=== PATIENT | female | born 1980 | race Caucasian/White ===

== ENCOUNTER 2018-01-08 15:56 | Emergency (ER) | payer BC, OTHER ==
[2018-01-08] MEDS ORDERED: ONDANSETRON 4 MG/2 ML VIAL ONE ×2 (16:57→17:45)
[2018-01-08] MEDS ORDERED: NA CHLORIDE 0.9% 1,000 ML ONE (16:57)
[2018-01-08] MEDS ORDERED: FENTANYL CITR 100 MCG/2 ML ONE (16:57)
[2018-01-08 17:15] LABS: Absolute Lymphocytes (CBC) 1.4 K/uL (0.7-4.9); Absolute Monocytes 0.5 K/uL (0.1-1.3); Absolute Neutrophil 10.1 K/uL (1.8-8.0); Basophils % 0.3 % (0-1.3); Eosinophils % 0.7 % (0-4.4); Hematocrit 38.5 % (36.0-45.0); Lymphocytes % 11.6 % (15.3-44.8); MCH 30.8 pg (27.0-35.0); MCV 89.1 fL (80-100); MPV 8.1 fL (7.6-11.3); Monocytes % 4.3 % (3.3-12.3); RBC Red Blood Cell Count 4.32 M/uL (3.86-4.86)
[2018-01-08 17:21] LABS: Urine Bacteria 20-50 /HPF (<20); Urine Culture Reflex Order NOT NEEDED; Urine Mucus 2+ /HPF (NONE SEEN)
[2018-01-08 17:22] LABS: Urine Blood 3+ (NEG); Urine Glucose NEGATIVE (NEG); Urine Protein 2+ (NEG)
[2018-01-08 17:33] LABS: ALT/SGPT 27 U/L (12-78); AST/SGOT 13 U/L (15-37); Alkaline Phosphatase 65 U/L (45-117); BUN Blood Urea Nitrogen 10 mg/dL (7-18); Bicarbonate 23 mmol/L (21-32); Bilirubin Direct 0.1 mg/dL (0-0.2); Bilirubin Total 0.4 mg/dL (0.2-1.0); Glucose Level 108 mg/dL (74-106); Lipase 76 U/L (73-393); Potassium 4.2 mmol/L (3.5-5.1); Sodium Level 139 mmol/L (136-145)
[2018-01-08] MEDS ORDERED: CEFTRIAXONE/SWI 1gm 1 GM/10 ML SYR ONE (17:41)
--- NOTE | 2018-01-08 17:43 | RAD REPORT ---
EXAM DESCRIPTION: CT - Stone Protocol - 01/08/2018 5:29 pm CLINICAL HISTORY: Left-sided abdominal pain and flank pain, left lower quadrant pain with nausea COMPARISON: None. TECHNIQUE: Axial 5 mm thick images were obtained without oral or IV contrast. The [id number] span s the entirety of the system including uppermost abdomen and lung bases. All CT scans are performed using dose optimization technique as appropriate and may include automated exposure control or mA/KV adjustment according to patient size. FINDINGS: No hydronephrosis is present and no obstructing ureteral calculi. No suspicious renal mass es. Isodense masses and pyelonephritis are not excluded on a stone protocol CT scan. Patient has punc palomino nonobstructing pyramid or caliceal calculi present under 3 mm in size. Partially contracted urin belen bladder shows no wall thickening, mass or calculus. Uterine size overall is normal. IUD is in place but appears to be positioned low in the lower uterine segment. CT sensitivity is limited. No ovarian abnormality suspected. No fallopian tube dilatation. Imaged portions of the liver, spleen and pancreas show no suspicious findings on non-contrast imaging . No gallbladder or biliary tree abnormality identified. No significant adrenal finding. No suspicious bowel findings. No hernia, mass or bulky lymphadenopathy noted. No free air, free fluid or inflammatory stranding. No significant bony abnormality. IMPRESSION: No hydronephrosis, obstructing calculus or acute finding. Patient does have punctate bilateral calyx or pyramid calculi. Isodense masses and pyelonephritis are not excluded on stone protocol technique. IUD is in place but appears to be positioned in the lower uterine segment region of the uterus. CT se nsitivity is limited. Follow-up outpatient sonography can be performed as clinical findings warrant.
--- NOTE | 2018-01-08 17:46 | EDPHYS ---
Physician Documentation [facility] Name: Octavia Lo Age: 37 yrs Sex: Female : 1980 Arrival Date: 01/08/2018 Time: 15:59 Bed 19 Private MD: None, None ED Physician Sulaiman Dykes HPI: 01/08 17:20 This 37 yrs old Female presents to ER via Ambulatory with complaints of kb Abdominal Pain, Nausea. 17:20 The patient presents with abdominal pain in the left upper quadrant, in the left lower kb quadrant. Onset: The symptoms/episode began/occurred today. The symptoms do not radiate. Associated signs and symptoms: Pertinent positives: nausea. The symptoms are described as constant. Modifying factors: The symptoms are alleviated by nothing, the symptoms are aggravated by pressure. Severity of pain: At its worst the pain was moderate in the emergency department the pain is unchanged. The patient has not experienced similar symptoms in the past. The patient has not recently seen a physician. 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 - Social history:: Smoking status: Patient/guardian denies using tobacco. - Ebola Screening: : No symptoms or risks identified at this time. ROS: 17:20 Constitutional: Negative for fever, chills, and weight loss, Cardiovascular: Negative kb for chest pain, palpitations, and edema, Respiratory: Negative for shortness of breath, cough, wheezing, and pleuritic chest pain, MS/Extremity: Negative for injury and deformity, Skin: Negative for injury, rash, and discoloration, Neuro: Negative for headache, weakness, numbness, tingling, and seizure. 17:20 Abdomen/GI: Positive for abdominal pain, nausea. 17:20 Back: Positive for flank pain, on the left. Exam: 17:20 Constitutional: This is a well developed, well nourished patient who is awake, alert, kb and in no acute distress. Head/Face: Normocephalic, atraumatic. Chest/axilla: Normal chest wall appearance and motion. Nontender with no deformity. No lesions are appreciated. Cardiovascular: Regular rate and rhythm with a normal S1 and S2. No gallops, murmurs, or rubs. Normal PMI, no JVD. No pulse deficits. Respiratory: Lungs have equal breath sounds bilaterally, clear to auscultation and percussion. No rales, rhonchi or wheezes noted. No increased work of breathing, no retractions or nasal flaring. Skin: Warm, dry with normal turgor. Normal color with no rashes, no lesions, and no evidence of cellulitis. MS/ Extremity: Pulses equal, no cyanosis. Neurovascular intact. Full, normal range of motion. Neuro: Awake and alert, GCS 15, oriented to person, place, time, and situation. Cranial nerves II-XII grossly intact. Motor strength 5/5 in all extremities. Sensory grossly intact. Cerebellar exam normal. Normal gait. 17:20 Abdomen/GI: Inspection: abdomen appears normal, Bowel sounds: normal, in all quadrants, Palpation: soft, in all quadrants, moderate abdominal tenderness, in the left upper quadrant and left lower quadrant. 17:20 Back: CVA tenderness, that is moderate, is noted on the left. Vital Signs: 16:27 BP 158 / 119; Pulse 84; Resp 20 S; Temp 99.1(TE); Pulse Ox 99% on R/A; Weight 90.72 kg aa5 (R); Height 5 ft. 5 in. (165.10 cm) (R); Pain 9/10; 17:24 BP 140 / 76; Pulse 85; Resp 18; Pulse Ox 100% on R/A; hj 18:05 BP 103 / 74; Pulse 80; Resp 18; Pulse Ox 100% on R/A; hj 16:27 Body Mass Index 33.28 (90.72 kg, 165.10 cm) aa5 MDM: 16:40 Patient medically screened. kb 17:23 Data reviewed: vital signs, nurses notes. Data interpreted: Pulse oximetry: on room air kb is 99 %. Interpretation: normal. 17:45 Counseling: I had a detailed discussion with the patient and/or guardian regarding: the kb historical points, exam findings, and any diagnostic results supporting the discharge/admit diagnosis, lab results, radiology results, the need for outpatient follow up, a family practitioner, a urologist, to return to the emergency department if symptoms worsen or persist or if there are any questions or concerns that arise at home. 01/08 16:47 Order name: Hepatic Function; Complete Time: 17:34 kb 01/08 16:47 Order name: Lipase; Complete Time: 17:34 kb 01/08 16:47 Order name: Basic Metabolic Panel; Complete Time: 17:34 kb 01/08 16:47 Order name: CBC with Diff; Complete Time: 17:19 kb 01/08 17:00 Order name: Urine Microscopic Only; Complete Time: 17:23 kb 01/08 17:00 Order name: Urine Culture kb 01/08 16:47 Order name: CT Stone Protocol; Complete Time: 17:44 kb 01/08 17:01 Order name: Urine Dipstick--Ancillary (enter results); Complete Time: 17:23 kb 01/08 17:01 Order name: Urine --Ancillary (enter results); Complete Time: 17:23 kb 01/08 16:47 Order name: IV Saline Lock; Complete Time: 16:49 kb 01/08 16:47 Order name: Labs collected and sent; Complete Time: 16:49 kb 01/08 16:48 Order name: Urine Dipstick-Ancillary (obtain specimen); Complete Time: 17:05 kb Administered Medications: 16:48 Drug: NS 0.9% 1000 ml Route: IV; Rate: 1000 ml; Site: left antecubital; hj 17:05 Follow up: IV Status: Infusion continued hj 16:48 Drug: fentaNYL (PF) 50 mcg Route: IVP; Site: left antecubital; hj 17:05 Follow up: Response: No adverse reaction; Pain is decreased hj 16:50 Not Given (Duplicate Order): Zofran 4 mg PO once kb 16:50 Drug: Zofran 4 mg Route: IVP; Site: left antecubital; hj 17:05 Follow up: Response: No adverse reaction; Nausea is decreased hj 17:37 Drug: Rocephin - (cefTRIAXone) 1 grams Route: IVPB; Infused Over: 30 mins; Site: left hj antecubital; 18:00 Follow up: IV Status: Completed infusion hj 17:43 Drug: Zofran 4 mg Route: IVP; Site: left antecubital; hj 17:43 Follow up: Response: No adverse reaction hj 17:46 Drug: TORadol 30 mg Route: IVP; Site: left antecubital; hj 17:59 Follow up: Response: No adverse reaction Disposition: 01/09 07:57 Co-signature as Attending Physician, Sulaiman Dykes MD I agree with the assessment and kari plan of care. Disposition: 01/08/18 17:46 Discharged to Home. Impression: Calculus of kidney, Urinary tract infection, site not specified. - Condition is Stable. - Discharge Instructions: Kidney Stones, [id number], Urinary Tract Infection, Adult, [id number]. - Prescriptions for Zofran 4 mg Oral Tablet - take 1 tablet by ORAL route every 6 hours As needed; 20 tablet. Macrobid 100 mg Oral Capsule - take 1 capsule by ORAL route every 12 hours for 7 days; 14 capsule. Diclofenac Sodium 75 mg Oral Tablet, Delayed Release (E.C.) - take 1 tablet by ORAL route 2 times per day As needed; 30 tablet. - Medication Reconciliation Form, Thank You Letter, Antibiotic Education, Prescription Opioid Use form. - Follow up: Emergency Department; When: As needed; Reason: Worsening of condition. Follow up: Private Physician; When: 2 - 3 days; Reason: Recheck today's complaints, Continuance of care, Re-evaluation by your physician. Signatures: Dispatcher [employer] EDHI Mable Vegas, GINNING OPERATOR-C VEE-Sulaiman Chacon MD MD cha Calderon, Audri, RN RN aa5 Gilbert Sharp RN RN hj Corrections: (The following items were deleted from the chart) 01/08 18:29 17:46 01/08/2018 17:46 Discharged to Home. Impression: Calculus of kidney; Urinary hj tract infection, site not specified. Condition is Stable. Forms are Medication Reconciliation Form, Thank You Letter, Antibiotic Education, Prescription Opioid Use. Follow up: Emergency Department; When: As needed; Reason: Worsening of condition. Follow up: Private Physician; When: 2 - 3 days; Reason: Recheck today's complaints, Continuance of care, Re-evaluation by your physician. kb
--- NOTE | 2018-01-08 17:46 | ER ---
Nurse's Notes [facility] Name: Octavia Lo Age: 37 yrs Sex: Female : 1980 Arrival Date: 01/08/2018 Time: 15:59 Bed 19 Private MD: None, None Diagnosis: Calculus of kidney;Urinary tract infection, site not specified Presentation: 01/08 16:26 Presenting complaint: Patient states: LLQ pain and left low back pain with nausea that aa5 began today. Denies vomiting. Transition of care: patient was not received from another setting of care. Onset of symptoms was January 08, 2018. Risk Assessment: Do you want to hurt yourself or someone else? Patient reports no desire to harm self or others. Initial Sepsis Screen: Does the patient meet any 2 criteria? No. Patient's initial sepsis screen is negative. Does the patient have a suspected source of infection? No. Patient's initial sepsis screen is negative. Care prior to arrival: None. 16:26 Method Of Arrival: Ambulatory aa5 16:26 Acuity: ONUR 3 aa5 Triage Assessment: 16:32 General: Appears in no apparent distress. Behavior is calm, cooperative, appropriate hj for age. Pain: Complains of pain in abdomen. GI: Reports lower abdominal pain, nausea, vomiting. 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 - Social history:: Smoking status: Patient/guardian denies using tobacco. - Ebola Screening: : No symptoms or risks identified at this time. Screenin:32 Abuse screen: Denies threats or abuse. Denies injuries from another. Nutritional hj screening: No deficits noted. Tuberculosis screening: No symptoms or risk factors identified. Fall Risk None identified. Assessment: 16:33 GI: Bowel sounds present X 4 quads. Abd is soft Abdomen is tender to palpation. hj 16:33 General: Appears in no apparent distress. uncomfortable, Behavior is calm, cooperative, hj appropriate for age. Pain: Complains of pain in abdomen Pain radiates to left lower quadrant and left upper quadrant. Neuro: Level of Consciousness is awake, alert, obeys commands, Oriented to person, place, time, situation, Appropriate for age. Cardiovascular: Capillary refill < 3 seconds Patient's skin is warm and dry. Respiratory: Airway is patent Respiratory effort is even, unlabored, Respiratory pattern is regular, symmetrical. : No signs and/or symptoms were reported regarding the genitourinary system. EENT: No signs and/or symptoms were reported regarding the EENT system. Derm: No signs and/or symptoms reported regarding the dermatologic system. Musculoskeletal: No signs and/or symptoms reported regarding the musculoskeletal system. 17:15 Reassessment: Patient and/or family updated on plan of care and expected duration. Pain hj level reassessed. Patient is alert, oriented x 3, equal unlabored respirations, skin warm/dry/pink. wheeled to CT;. 18:04 Reassessment: Patient and/or family updated on plan of care and expected duration. Pain hj level reassessed. Patient is alert, oriented x 3, equal unlabored respirations, skin warm/dry/pink. to finish 1L NS prior to D/C; 250 ml left;. Vital Signs: 16:27 BP 158 / 119; Pulse 84; Resp 20 S; Temp 99.1(TE); Pulse Ox 99% on R/A; Weight 90.72 kg aa5 (R); Height 5 ft. 5 in. (165.10 cm) (R); Pain 9/10; 17:24 BP 140 / 76; Pulse 85; Resp 18; Pulse Ox 100% on R/A; hj 18:05 BP 103 / 74; Pulse 80; Resp 18; Pulse Ox 100% on R/A; hj 16:27 Body Mass Index 33.28 (90.72 kg, 165.10 cm) aa5 ED Course: 15:59 Patient arrived in ED. mr 15:59 None, None is Private Physician. mr 16:26 Triage completed. aa5 16:26 Arm band placed on. aa5 16:28 Gilbert Sharp, RN is Primary Nurse. hj 16:34 Patient has correct armband on for positive identification. Placed in gown. Bed in low hj position. Call light in reach. Side rails up X 1. Adult w/ patient. 16:39 Mable Vegas FNP-C [facility]. kb 16:39 Sulaiman Dykes MD is Attending Physician. kb 16:42 Initial lab(s) drawn, by me, sent to lab. Inserted saline lock: 22 gauge in right upper hj arm, using aseptic technique. Blood collected. 17:04 Initial lab(s) drawn, by me, sent to lab. Inserted saline lock: 22 gauge in left hj antecubital area, using aseptic technique. Blood collected. 17:30 CT Stone Protocol In Process Unspecified. EDMS 17:58 No provider procedures requiring assistance completed. IV discontinued, intact, hj bleeding controlled, No redness/swelling at site. Pressure dressing applied. Administered Medications: 16:48 Drug: NS 0.9% 1000 ml Route: IV; Rate: 1000 ml; Site: left antecubital; hj 17:05 Follow up: IV Status: Infusion continued hj 16:48 Drug: fentaNYL (PF) 50 mcg Route: IVP; Site: left antecubital; hj 17:05 Follow up: Response: No adverse reaction; Pain is decreased hj 16:50 Not Given (Duplicate Order): Zofran 4 mg PO once kb 16:50 Drug: Zofran 4 mg Route: IVP; Site: left antecubital; hj 17:05 Follow up: Response: No adverse reaction; Nausea is decreased hj 17:37 Drug: Rocephin - (cefTRIAXone) 1 grams Route: IVPB; Infused Over: 30 mins; Site: left hj antecubital; 18:00 Follow up: IV Status: Completed infusion hj 17:43 Drug: Zofran 4 mg Route: IVP; Site: left antecubital; hj 17:43 Follow up: Response: No adverse reaction hj 17:46 Drug: TORadol 30 mg Route: IVP; Site: left antecubital; hj 17:59 Follow up: Response: No adverse reaction hj Outcome: 17:46 Discharge ordered by . kb 17:58 Discharged to home ambulatory, with family. hj 17:58 Condition: stable 17:58 Discharge instructions given to patient, family, Instructed on discharge instructions, follow up and referral plans. medication usage, Demonstrated understanding of instructions, follow-up care, medications, Prescriptions given X 3. 18:29 Patient left the ED. hj Addendum: 01/11/2018 10:22 Addendum: Culture Results: Positive urine culture. No further action required. Bacteria s s sensitive to prescribed antibiotic. Signatures: Dispatcher [employer] EDMS Mable Vegas, DESIREE BAXTER-Glenna Graham mr ZepedaCheyanne, RN RN aa5 Rylie Azul RN RN Gilbert Sharp RN RN hj
[2018-01-08] MEDS ORDERED: predniSONE 20 MG TAB ONE (17:55)
[2018-01-08] MEDS ORDERED: AZITHROMYCIN 250 MG TAB ONE (17:55)
[2018-01-08] MEDS ORDERED: ALBUTEROL 2.5 MG/3 ML NEB SOL ONE (17:55)
[2018-01-08] MEDS ORDERED: KETOROLAC 30 MG/ML INJ ONE (17:56)
== END 2018-01-08 18:29 | disposition home or self-care (01) ==
LOC: ER 15:56
DX: N20.0 Calculus of kidney (principal); N39.0 Urinary tract infection, site not specified; Z88.5 Allergy status to narcotic agent; Z88.8 Allergy status to other drugs, medicaments and biological substances
CPT/HCPCS: 36415; 74176; 76377; 80048; 80076; 81003; 81015; 81025; 83690; 85025; 87077; 87086; 87088; 87186; 96365; 96375; 99284; J0696; J2405; J3010; J7030; J7512

== ENCOUNTER 2018-10-15 22:43 | Emergency (ER) | payer BC ==
--- OUTSIDE RECORDS SUMMARY | 2018-10-15 22:46 | XMS REPORT ---
:1980 [facility] Address [address] [place] [address] Dr. Askew [address] [place] [id number] Care Team Providers Name Role Phone Unavailable Unavailable Unavailable Problems This patient has no known problems. Allergies, Adverse Reactions, Alerts This patient has no known allergies or adverse reactions. Medications This patient has no known medications.
[2018-10-16] MEDS ORDERED: dexAMETHasone 10 MG/ML VIAL ONE
[2018-10-16] MEDS ORDERED: IBUPROFEN 200 MG TAB PO ONE (00:01)
[2018-10-16] MEDS ORDERED: LIDOCAINE 5% PATCH ONE (00:09)
[2018-10-16] MEDS ORDERED: HYDROCODONE/APAP 10/325 TAB ONE (00:42)
--- NOTE | 2018-10-16 01:03 | ER ---
Nurse's Notes [facility] Name: Octavia Lo Age: 38 yrs Sex: Female : 1980 Arrival Date: 10/15/2018 Time: 22:47 Bed 6 Private MD: Diagnosis: Lumbago with sciatica, right side Presentation: 10/15 22:51 Presenting complaint: Patient states: "I am having back pain and i have been having jd3 pain shooting down my right leg and my legs feel weak. I have had issues with my right SI joint before. there is just like a grinding feeling happening when I walk causing pain.". Transition of care: patient was not received from another setting of care. Onset of symptoms was October 15, 2018. Risk Assessment: Do you want to hurt yourself or someone else? Patient reports no desire to harm self or others. Initial Sepsis Screen: Does the patient meet any 2 criteria? No. Patient's initial sepsis screen is negative. Does the patient have a suspected source of infection? No. Patient's initial sepsis screen is negative. Care prior to arrival: None. 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 - Social history:: Smoking status: Patient uses tobacco products, denies chronic smoking, but will smoke occasionally. - Ebola Screening: : Patient negative for fever greater than or equal to 101.5 degrees Fahrenheit, and additional compatible Ebola Virus Disease symptoms. Screenin:10 Abuse screen: Denies threats or abuse. Nutritional screening: No deficits noted. bb Tuberculosis screening: No symptoms or risk factors identified. Fall Risk Secondary diagnosis (15 points) impaired mobility, No IV (0 pts). Ambulatory Aid- None/Bed Rest/Nurse Assist (0 pts). Gait- Weak (10 pts.). Mental Status- Oriented to own ability (0 pts). Total Thomas Fall Scale indicates Low Risk Score (25-44 pts). Fall prevention measures have been instituted. Side Rails Up X 2 As available Patient and Family Educated on Fall Prevention Program and strategies. Assessment: 23:10 General: Appears in no apparent distress. uncomfortable, Behavior is calm, cooperative, bb Reports pain in lower back radiating down leg which is making her feel like her pelvis is unstable and she is having difficulty walking. Pain: Complains of pain in back and right leg Pain currently is 6 out of 10 on a pain scale. Neuro: Level of Consciousness is awake, alert, obeys commands, Oriented to person, place, time, situation. Cardiovascular: Heart tones S1 S2 present Capillary refill < 3 seconds Patient's skin is warm and dry. Pulses are all present. Edema is absent. Respiratory: Respiratory effort is even, unlabored, Respiratory pattern is regular, Breath sounds are clear bilaterally. GI: No deficits noted. No signs and/or symptoms were reported involving the gastrointestinal system. Derm: Skin is pink, warm \\T\\ dry. Musculoskeletal: Circulation, motion, and sensation intact. Reports weakness in right leg and left leg pain in back and right leg. 10/16 01:08 Reassessment: Patient appears in no apparent distress at this time. Patient and/or tl2 family updated on plan of care and expected duration. Pain level reassessed. Patient is alert, oriented x 3, equal unlabored respirations, skin warm/dry/pink. pt verbalized understanding of discharge instructions, need for follow up and prescription usage. Vital Signs: 10/15 22:54 BP 167 / 105; Pulse 87; Resp 17 S; Temp 97.9(O); Pulse Ox 98% on R/A; Weight 90.72 kg jd3 (R); Height 5 ft. 5 in. (165.10 cm) (R); Pain 5/10; 10/16 01:11 BP 160 / 97; Pulse 78; Resp 18; Pulse Ox 98% on R/A; tl2 10/15 22:54 Body Mass Index 33.28 (90.72 kg, 165.10 cm) jd3 ED Course: 10/15 22:47 Patient arrived in ED. es 22:53 Triage completed. jd3 22:55 Arm band placed on. jd3 23:06 Quin Thomason, RN is Primary Nurse. bb 23:10 Patient has correct armband on for positive identification. Bed in low position. Call bb light in reach. 23:13 Galo Shin NP is PHCP. pm1 23:13 Sulaiman Dykes MD is Attending Physician. pm1 10/16 01:08 No provider procedures requiring assistance completed. Patient did not have IV access tl2 during this emergency room visit. Administered Medications: 10/15 23:51 Drug: Decadron 10 mg Route: IM; Site: right ventrogluteal; bb 10/16 01:10 Follow up: Response: No adverse reaction tl2 10/15 23:51 Drug: Ibuprofen 600 mg Route: PO; bb 10/16 01:10 Follow up: Response: No adverse reaction tl2 00:00 Drug: lidocaine 5% patch 1 patches Route: Topical; Site: affected area; bb 00:28 Drug: HYDROcodone-acetaminophen 10 mg-325 mg 1 tabs Route: PO; tl2 01:10 Follow up: Response: No adverse reaction; Medication administered at discharge. tl2 Outcome: 01:02 Discharge ordered by . pm1 01:08 Discharged to home ambulatory, with family. tl2 01:08 Condition: stable 01:08 Discharge instructions given to patient, Instructed on discharge instructions, follow up and referral plans. medication usage, Demonstrated understanding of instructions, follow-up care, medications, Prescriptions given X 3. 01:11 Patient left the ED. tl2 Signatures: Kamini Wing Brenda, DAVI RN Galo Thurman NP WATER PUMP INSTALLER pm1 Phoebe Peoples RN RN tl2 Ankush Arenas RN RN jd3
--- NOTE | 2018-10-16 01:03 | EDPHYS ---
Physician Documentation [facility] Name: Octavia Lo Age: 38 yrs Sex: Female : 1980 Arrival Date: 10/15/2018 Time: 22:47 Bed 6 Private MD: ED Physician Sulaiman Dykes HPI: 10/16 00:00 This 38 yrs old Female presents to ER via Ambulatory with complaints of Low pm1 Back Pain. 00:00 The patient presents with pain that is chronic. The symptoms are located in the right pm1 low back. The pain radiates to the right leg. 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 Onset: The symptoms/episode began/occurred present for many months became worse today. Modifying factors: The patient symptoms are alleviated by rest, the patient symptoms are aggravated by movement, walking. Associated signs and symptoms: Pertinent negatives: dysuria, fever, headache, incontinence, numbness, tingling. Severity of symptoms: in the emergency department the symptoms are actually worse. The patient has experienced similar episodes in the past, chronically. The patient has not recently seen a physician. 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 - Social history:: Smoking status: Patient uses tobacco products, denies chronic smoking, but will smoke occasionally. - Ebola Screening: : Patient negative for fever greater than or equal to 101.5 degrees Fahrenheit, and additional compatible Ebola Virus Disease symptoms. ROS: 10/16 00:00 Constitutional: Negative for fever, chills, and weight loss, Eyes: Negative for injury, pm1 pain, redness, and discharge, ENT: Negative for injury, pain, and discharge, Neck: Negative for injury, pain, and swelling, Cardiovascular: Negative for chest pain, palpitations, and edema, Respiratory: Negative for shortness of breath, cough, wheezing, and pleuritic chest pain, Abdomen/GI: Negative for abdominal pain, nausea, vomiting, diarrhea, and constipation, : Negative for injury, bleeding, discharge, and swelling. MS/Extremity: Negative for injury and deformity, Skin: Negative for injury, rash, and discoloration. Neuro: Negative for headache, weakness, numbness, tingling, and seizure. Back: Positive for of the right low back. Exam: 00:00 Constitutional: This is a well developed, well nourished patient who is awake, alert, pm1 and in no acute distress. Head/Face: Normocephalic, atraumatic. Eyes: Pupils equal round and reactive to light, extra-ocular motions intact. Lids and lashes normal. Conjunctiva and sclera are non-icteric and not injected. Cornea within normal limits. Periorbital areas with no swelling, redness, or edema. ENT: Nares patent. No nasal discharge, no septal abnormalities noted. Tympanic membranes are normal and external auditory canals are clear. Oropharynx with no redness, swelling, or masses, exudates, or evidence of obstruction, uvula midline. Mucous membranes moist. Neck: Trachea midline, no thyromegaly or masses palpated, and no cervical lymphadenopathy. Supple, full range of motion without nuchal rigidity, or vertebral point tenderness. No Meningismus. Chest/axilla: Normal chest wall appearance and motion. Nontender with no deformity. No lesions are appreciated. Cardiovascular: Regular rate and rhythm with a normal S1 and S2. No gallops, murmurs, or rubs. Normal PMI, no JVD. No pulse deficits. Respiratory: Lungs have equal breath sounds bilaterally, clear to auscultation and percussion. No rales, rhonchi or wheezes noted. No increased work of breathing, no retractions or nasal flaring. Abdomen/GI: Soft, non-tender, with normal bowel sounds. No distension or tympany. No guarding or rebound. No evidence of tenderness throughout. 00:00 Skin: Warm, dry with normal turgor. Normal color with no rashes, no lesions, and no evidence of cellulitis. MS/ Extremity: Pulses equal, no cyanosis. Neurovascular intact. Full, normal range of motion. 00:00 Back: pain, that is mild, of the right low back, normal spinal alignment noted. 00:00 Neuro: Orientation: is normal, Motor: is normal, moves all fours, patient able to dorsiflex and plantar flex bilateral large toes, Sensation: is normal, no obvious gross deficits. Vital Signs: 10/15 22:54 BP 167 / 105; Pulse 87; Resp 17 S; Temp 97.9(O); Pulse Ox 98% on R/A; Weight 90.72 kg jd3 (R); Height 5 ft. 5 in. (165.10 cm) (R); Pain 5/10; 10/16 01:11 BP 160 / 97; Pulse 78; Resp 18; Pulse Ox 98% on R/A; tl2 10/15 22:54 Body Mass Index 33.28 (90.72 kg, 165.10 cm) jd3 MDM: 10/15 23:14 Patient medically screened. pm1 10/16 00:12 Data reviewed: vital signs. Data interpreted: Pulse oximetry: on room air is 98 %. pm1 Interpretation: normal. Counseling: I had a detailed discussion with the patient and/or guardian regarding: the historical points, exam findings, and any diagnostic results supporting the discharge/admit diagnosis, the need for outpatient follow up, to return to the emergency department if symptoms worsen or persist or if there are any questions or concerns that arise at home, MRI back. Administered Medications: 10/15 23:51 Drug: Decadron 10 mg Route: IM; Site: right ventrogluteal; bb 10/16 01:10 Follow up: Response: No adverse reaction tl2 10/15 23:51 Drug: Ibuprofen 600 mg Route: PO; bb 10/16 01:10 Follow up: Response: No adverse reaction tl2 00:00 Drug: lidocaine 5% patch 1 patches Route: Topical; Site: affected area; bb 00:28 Drug: HYDROcodone-acetaminophen 10 mg-325 mg 1 tabs Route: PO; tl2 01:10 Follow up: Response: No adverse reaction; Medication administered at discharge. tl2 Disposition: 09:11 Co-signature as Attending Physician, Sulaiman Dykes MD I agree with the assessment and kari plan of care. Disposition: 10/16/18 01:02 Discharged to Home. Impression: Lumbago with sciatica, right side. - Condition is Stable. - Discharge Instructions: Back Pain, Adult, Sciatica. - Prescriptions for Naprosyn 500 mg Oral Tablet - take 1 tablet by ORAL route 2 times per day take with food; 30 tablet. Cyclobenzaprine 10 mg Oral Tablet - take 1 tablet by ORAL route every 8 hours As needed; 30 tablet. Medrol (Monty) 4 mg Oral Tablets, Dose Pack - take 1 tablet by ORAL route as directed - follow package instructions; 1 packet. - Medication Reconciliation Form, Thank You Letter, Antibiotic Education, Prescription Opioid Use, Work release form form. - Follow up: Emergency Department; When: As needed; Reason: Worsening of condition. Follow up: Private Physician; When: 2 - 3 days; Reason: Recheck today's complaints, Continuance of care, Re-evaluation by your physician. - Problem is new. - Symptoms have improved. Signatures: Sulaiman Dykes MD MD cha Ballard, Brenda, RN RN bb Galo Shin NP CARE TEAM COORDINATOR SCHEDULER pm1 Phoebe Peoples RN RN tl2 Ankush Arenas RN RN jd3 Corrections: (The following items were deleted from the chart) 01:11 01:02 10/16/2018 01:02 Discharged to Home. Impression: Lumbago with sciatica, right tl2 side. Condition is Stable. Forms are Work release form, Medication Reconciliation Form, Thank You Letter, Antibiotic Education, Prescription Opioid Use. Follow up: Emergency Department; When: As needed; Reason: Worsening of condition. Follow up: Private Physician; When: 2 - 3 days; Reason: Recheck today's complaints, Continuance of care, Re-evaluation by your physician. Problem is new. Symptoms have improved. pm1
== END 2018-10-16 01:11 | disposition home or self-care (01) ==
LOC: ER 22:43
DX: M54.41 Lumbago with sciatica, right side (principal); I10 Essential (primary) hypertension; Z72.0 Tobacco use; Z88.5 Allergy status to narcotic agent; Z88.6 Allergy status to analgesic agent; Z88.8 Allergy status to other drugs, medicaments and biological substances
CPT/HCPCS: 96372; 99283

== ENCOUNTER 2019-03-02 21:05 | Emergency (ER) | payer BC ==
--- OUTSIDE RECORDS SUMMARY | 2019-03-02 21:07 | XMS REPORT | Summary of Care ---
:1980 Author Organization [facility] Address [address] [place] [address] Care Team Providers Name Role Phone Kevin Valadez MD Primary Care Provider Encounter Details Date Type Department Care Team Description 11/16/2018 Hospital Encounter [facility] Diagnostic Cristi Hayes MD Arrived and Breast Imaging, [address] [place] [address]. [facility] Clinics [place] [address] floor [phone] [place] [address] Allergies Active Allergy Reactions Severity Noted Date Comments Codeine Shortness of Breath 03/17/2017 Oxycodone-Acetaminophen Itching 03/17/2017 Promethazine Hcl Other - See comments 03/17/2017 convulsions Metoclopramide Hcl Unknown - See comments 03/17/2017 Convulsion documented as of this encounter (statuses as of 11/17/2018) Medications Medication Sig Dispensed Refills Start Date End Date Status benzonatate (TESSALON Take 1 capsule 30 capsule 0 04/12/2018 Active PERLES) 100 mg by mouth 3 capsuleIndications: (three) times Influenza daily as needed for Cough. ibuprofen (IBU ORAL) Take 800 mg by 0 Active mouth. lisinopril 10 mg Take 1 tablet by 90 tablet 3 10/16/2018 Active tabletIndications: Acute mouth daily. right-sided low back pain with right-sided sciatica doxycycline 100 mg Take 1 tablet by 14 tablet 0 10/16/2018 Active tabletIndications: Acute mouth 2 (two) right-sided low back times daily. pain with right-sided sciatica cyclobenzaprine 10 mg Take 10 mg by 0 Active tablet mouth every 8 (eight) hours as needed for Muscle Spasms. naproxen 500 mg tablet Take 500 mg by 0 Active mouth 2 (two) times daily with meals. methocarbamol 500 mg Take 1 tablet by 30 tablet 1 10/23/2018 Active tabletIndications: Acute mouth 2 (two) low back pain without times daily. sciatica, unspecified back pain laterality traMADOL 50 mg Take 1 tablet by 16 tablet 0 10/23/2018 Active tabletIndications: Acute mouth every 6 low back pain without (six) hours as sciatica, unspecified needed for Pain back pain laterality (scale 7-10). methylPREDNISolone Take by mouth 21 Each 0 11/16/2018 Active (MEDROL, SHAUN,) 4 mg SEE-INSTRUCTIONS tabletsIndications: . follow package Lumbar radiculopathy directions documented as of this encounter (statuses as of 11/17/2018) Active Problems No known active problemsdocumented as of this encounter (statuses as of 2018) Social History Tobacco Use Types Packs/Day Years Used Date Never Smoker Smokeless Tobacco: Never Used Alcohol Use Drinks/Week oz/Week Comments No Sex Assigned at Date Recorded Not on file Job Start Date Occupation Industry Not on file Not on file Not on file Travel History Travel Start Travel End No recent travel history available. documented as of this encounter Last Filed Vital Signs Not on filedocumented in this encounter Plan of Treatment Date Type Specialty Care Team Description 11/20/2018 Ancillary Visit Physical Therapy Rigoberto Diez MD [address] [place] [address] Carmen Mott, PT [address] [place] [address] 11/22/2018 Ancillary Visit Physical Therapy Rigoberto Diez MD [address] [place] [address] Sherley Lofton, DENTAL BILLING SPECIALIST [address] [place] [address] Health Maintenance Due Date Last Done Comments DTaP,Tdap,and Td Vaccines (1 - 1998 Tdap) PAP SMEAR 2000 INFLUENZA VACCINE 12/16/2018 PNEUMOCOCCAL 0-64 YEARS COMBINED Aged Out No longer eligible based on SERIES patient's age to complete this topic documented as of this encounter Procedures Procedure Name Priority Date/Time Associated Diagnosis Comments XR LUMBAR SPINE 2 Routine 11/16/2018 9:52 Lumbar radiculopathy Results for this VW AM CDT procedure are in the results section. documented in this encounter Results XR LUMBAR SPINE 2 VW (11/16/2018 9:52 AM CDT) Specimen Impressions Performed At PACS/VR/DOSE 1.No acute osseous findings or dynamic instability. Exaggerated lumbar lordosis is seen. 2.Mild degenerative changes of the lumbar spine. Narrative Performed At * * * * * * * * ORIGINAL REPORT * * * * * * * * PACS/VR/DOSE HISTORY:LBP Please do lateral flexion and extension views of the lumbar spine TECHNIQUE: Lateral views of the lumbar spine were obtained. COMPARISON: None. FINDINGS: There are 5 lumbar type vertebra. There is exaggerated lumbar lordosis with preserved sagittal alignment. The vertebral body heights are preserved. No dynamic instability seen. Multilevel degenerative changes are noted in the form of disc space narrowing, anterior osteophytes and facet arthropathy, which are most conspicuous at L5-S1, where they are mild. Procedure Note [facility], Radiant Results Inft User - 11/16/2018 4:16 PM CDT * * * * * * * * ORIGINAL REPORT * * * * * * * * HISTORY:LBP Please do lateral flexion and extension views of the lumbar spine TECHNIQUE: Lateral views of the lumbar spine were obtained. COMPARISON: None. FINDINGS: There are 5 lumbar type vertebra. There is exaggerated lumbar lordosis with preserved sagittal alignment. The vertebral body heights are preserved. No dynamic instability seen. Multilevel degenerative changes are noted in the form of disc space narrowing, anterior osteophytes and facet arthropathy, which are most conspicuous at L5-S1, where they are mild. IMPRESSION 1. No acute osseous findings or dynamic instability. Exaggerated lumbar lordosis is seen. 2. Mild degenerative changes of the lumbar spine. Performing Organization Address City/State/Zipcode Phone Number PACS/VR/DOSE documented in this encounter Visit Diagnoses Diagnosis Lumbar radiculopathy Thoracic or lumbosacral neuritis or radiculitis, unspecified documented in this encounter Insurance Payer Benefit Plan / Subscriber ID Effective Dates Phone Address Type Group [facility] [employer] [place] [id number] 2017-Present PPO/POS [employer] EM[employer]OYEE EMPLOYEE PLAN [phone] [id number] (Work) documented as of this encounter
--- OUTSIDE RECORDS SUMMARY | 2019-03-02 21:07 | XMS REPORT | Summary of Care ---
:1980 Author Organization [facility] Address [address] [place] [address] Care Team Providers Name Role Phone Kevin Valadez MD Primary Care Provider Reason for Referral (Routine) Status Reason Specialty Diagnoses / Referred By Referred To Procedures Contact Contact New Request Pain Medicine Diagnoses Lumbar radiculopathy Cristi Hayes MD Procedures CONSULT/REFERRAL PAIN CLINIC [address] [place] [address]. [place] [address] Reason for Visit Reason Comments Back Pain (Routine) Status Reason Specialty Diagnoses / Referred By Referred To Procedures Contact Contact Closed Neurological Surgery Diagnoses Acute low back pain without sciatica, unspecified back pain laterality Kevin Valadez Procedures CONSULT/REFERRAL NEUROSURGERY III, [address] [place] [address] [address] [place] [address] Encounter Details Date Type Department Care Team Description 11/16/2018 Office Visit [facility] Cristi Hayes MD Lumbar radiculopathy Neurosurgery, [address] (Primary Dx) [address] [address] [place], [place] [phone] [address] [phone] Allergies Active Allergy Reactions Severity Noted Date Comments Codeine Shortness of Breath 03/17/2017 Oxycodone-Acetaminophen Itching 03/17/2017 Promethazine Hcl Other - See comments 03/17/2017 convulsions Metoclopramide Hcl Unknown - See comments 03/17/2017 Convulsion documented as of this encounter (statuses as of 11/16/2018) Medications Medication Sig Dispensed Refills Start Date [...] as of this encounter (statuses as of 11/16/2018) Active Problems No known active problemsdocumented as [...] of this encounter Last Filed Vital Signs Vital Sign Reading Time Taken Comments Blood Pressure 139/94 11/16/2018 9:20 AM CDT Pulse 72 11/16/2018 9:20 AM CDT Temperature - - Respiratory Rate - - Oxygen Saturation - - Inhaled Oxygen Concentration - - Weight 106.1 kg (234 lb) 11/16/2018 9:19 AM CDT Height 165.1 cm (5' 5") 11/16/2018 9:19 AM CDT Body Mass Index 38.94 11/16/2018 9:19 AM CDT documented in this encounter Progress Notes Sam Jenkins III, MD - 11/16/2018 9:15 AM CDT Neurosurgery Clinic 11/16/2018 Visit Type: New visit Chief Complaint: LBP with RLE pain HPI Octavia Lo is a 38 year old female who presents complaining of LBP with RLE pain along the L5 dermatome that started in mid October. She has been going to PT which has helped only a little. Shedenies any numbness or paraesthesia. She reports occasional subjective weakness in the right leg. She has not been evaluated by pain management. She denies any major cardiac or pulmonary conditions. She denies taking any anticoagulants or antiplatelets such as aspirin, plavix, or coumadin Histories Past Medical History: Diagnosis Date Known health problems: none Past Surgical History: Procedure Laterality Date BREAST SURGERY OPEN CARPAL TUNNEL RELEASE Right No family history on file. Social History Socioeconomic History Marital status: Single Spouse name: Not on file Number of children: Not on file Years of education: Not on file Highest education level: Not on file Occupational History Not on file Social Needs Financial resource strain: Not on file Food insecurity: Worry: Not on file Inability: Not on file Transportation needs: Medical: Not on file Non-medical: Not on file Tobacco Use Smoking status: Never Smoker Smokeless tobacco: Never Used Substance and Sexual Activity Alcohol use: No Drug use: No Sexual activity: Not on file Lifestyle Physical activity: Days per week: Not on file Minutes per session: Not on file Stress: Not on file Relationships Social connections: Talks on phone: Not on file Gets together: Not on file Attends mu-ism service: Not on file Active member of club or organization: Not on file Attends meetings of clubs or organizations: Not on file Relationship status: Not on file Intimate partner violence: Fear of current or ex partner: Not on file Emotionally abused: Not on file Physically abused: Not on file Forced sexual activity: Not on file Other Topics Concern Not on file Social History Narrative She lives with her son. 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 Review of Systems A 10 system ROS was negative apart from the positives noted in the HPI above Physical Exam A&Ox3 Face symmetric 5/5 strength in the bilateral upper and lower extremities Intact sensation 2+ biceps, triceps, patella, achilles No clonus, No south's Assessment This is a 38 year old female with 1 month history of LBP with pain down the RLE along the L5 dermatome. MRI of the lumbar spine shows degenerative changes at L5 -S1 with an annular tear, but without anylateral recess or foraminal stenosis at that or any other levels. Flexion and extension views of thelumbar spine does not show and signs of instability at that level. Plan Medrol dose pack Referral to pain management F/U as needed Sam Jenkins MD Neurosurgery resident Faculty Addendum: I personally evaluated and examined the patient and agree with the note by Dr. Jenkins with no changes. Cristi Hayes MD [facility] Neurosurgery documented in this encounter Plan of Treatment Date Type Specialty Care Team Description 11/20/2018 Ancillary Visit Physical Therapy Rigoberto Diez MD [address] [place] [address] Carmen Mott, PT [address] [place] [address] 11/22/2018 Ancillary Visit Physical Therapy Rigoberto Diez MD [address] [place] [address] Sherley Lofton, CONDENSER WINDER [address] [place] [address] Name Type Priority Associated Diagnoses Date/Time XR LUMBAR SPINE 2 VW IMAGING Routine Lumbar radiculopathy 11/16/2018 9:52 AM CDT Name Type Priority Associated Diagnoses Order Schedule XR LUMBAR SPINE 2 VW IMAGING Routine Lumbar radiculopathy Expected: 2018, Expires: 11/17/2019 Health Maintenance Due Date Last Done Comments DTaP,Tdap,and Td Vaccines (1 - 1998 Tdap) PAP SMEAR 2000 INFLUENZA VACCINE 12/16/2018 PNEUMOCOCCAL 0-64 YEARS COMBINED Aged Out No longer eligible based on SERIES patient's age to complete this topic documented as of this encounter Results Not on filedocumented in this encounter Visit Diagnoses Diagnosis Lumbar radiculopathy - Primary Thoracic or lumbosacral neuritis or radiculitis, unspecified documented in this encounter Insurance Payer Benefit Plan / Subscriber ID Effective Dates Phone Address Type Group [facility] [id number] 2017-Present PPO/POS [employer] EMPLOYEE EMPLOYEE PLAN [phone] [id number] (Work) documented as of this encounter
--- OUTSIDE RECORDS SUMMARY | 2019-03-02 21:07 | XMS REPORT | Summary of Care ---
:1980 Author Organization [facility] Address [address] [place] [address] Care Team Providers Name Role Phone Kevin Valadez MD Primary Care Provider Reason for Referral (Routine) Status Reason Specialty Diagnoses / Referred By Referred To Procedures Contact Contact New Request Pain Medicine Diagnoses Lumbar radiculopathy Cristi Hayes MD Procedures CONSULT/REFERRAL PAIN CLINIC [address] [place] [address]. [place] [address] Reason for Visit Reason Comments Back Pain (Routine) Status Reason Specialty Diagnoses / Referred By Referred To Procedures Contact Contact Closed Neurological Surgery Diagnoses Acute low back pain without sciatica, unspecified back pain laterality Kevin Valadez Procedures CONSULT/REFERRAL NEUROSURGERY III, [address] [place] [address] [address] [place] [address] Encounter Details Date Type Department Care Team Description 11/16/2018 Office Visit [facility] Cristi Hayes MD Lumbar radiculopathy Neurosurgery, [address] (Primary Dx) [address] [address] [place], [place] [phone] [address] [phone] Allergies Active Allergy Reactions Severity Noted Date [...] file Gets together: Not on file Attends yazidi service: Not on file Active member of [...] lives with her son. 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 Review of Systems A 10 [...] Jenkins with no changes. Cristi Hayes MD [employer] Neurosurgery documented in this encounter Plan of Treatment Date Type Specialty Care Team Description 11/20/2018 Ancillary Visit Physical Therapy Rigoberto Diez MD [address] [place] [address] Carmen Mott, PT [address] [place] [address] 11/22/2018 Ancillary Visit Physical Therapy Rigoberto Diez MD [address] [place] [address] Sherley Lofton, [employer] MAINFRAME SYSTEMS PROGRAMMER [address] [place] [address] Name Type Priority Associated Diagnoses Date/Time XR [...] ID Effective Dates Phone Address Type Group [facility] [id number] 2017-Present PPO/POS [employer] EMPLOYEE EMPLOYEE PLAN [phone] [id number] (Work) documented as of this encounter
--- OUTSIDE RECORDS SUMMARY | 2019-03-02 21:07 | XMS REPORT | Summary of Care ---
:1980 Author Organization [facility] Address [address] [place] [address] Care Team Providers Name Role Phone Kevin Valadez MD Primary Care Provider Reason for Visit Reason Comments Follow-up (Routine) Status Reason Specialty Diagnoses / Referred By Referred To Procedures Contact Contact Authorized Physical Therapy Diagnoses Acute low back pain without sciatica, unspecified back pain laterality Kevin Valadez Adc Physical Procedures CONSULT/REFERRAL PHYSICAL THERAPY HI PHYSICAL THERAPY EVALUATION LOW COMPLEX 20 MINS HI PHYSICAL THERAPY EVALUATION MOD COMPLEX 30 MINS HI PHYSICAL THERAPY EVALUATION HIGH COMPLEX 45 MINS HI THERAPEUTIC EXERCISES III, MD Therapy HI NEUROMUSC REEDUCAT,1+ AREAS, EA 15 MIN HI MANUAL THER TECH,1+REGIONS,EA 15 MIN HI THERAPEUT ACTVITY DIRECT PT CONTACT EACH 15 MIN HI SELF-CARE/HOME MGMT TRAINING EACH [address] [place] [address] Professional [address] Phone: [address] [place], [place] Fax: [phone] Encounter Details Date Type Department Care Team Description 11/13/2018 Ancillary Visit [facility] Rigoberto Diez MD [address] [place] [address] [place] [address] Low back pain Physical Therapy- Carmen Mott, PT [address] [place] [address] radiating down leg Tammi (Primary Dx) Professional Office Building [address] [place] [address] Dr. Giraldo [address] [place] [address] Allergies Active Allergy Reactions Severity Noted Date Comments Codeine Shortness of Breath 03/17/2017 Oxycodone-Acetaminophen Itching 03/17/2017 Promethazine Hcl Other - See comments 03/17/2017 convulsions Metoclopramide Hcl Unknown - See comments 03/17/2017 Convulsion documented as of this encounter (statuses as of 11/13/2018) Medications Medication Sig Dispensed Refills Start Date End Date Status benzonatate (TESSALON Take 1 capsule 30 capsule 0 04/12/2018 Active PERLES) 100 mg by mouth 3 capsuleIndications: (three) times Influenza daily as needed for Cough. ibuprofen (IBU ORAL) Take 800 mg by 0 Active mouth. lisinopril 10 mg Take 1 tablet 90 tablet 3 10/16/2018 Active tabletIndications: Acute by mouth daily. right-sided low back pain with right-sided sciatica doxycycline 100 mg Take 1 tablet 14 tablet 0 10/16/2018 Active tabletIndications: Acute by mouth 2 right-sided low back (two) times pain with right-sided daily. sciatica cyclobenzaprine 10 mg Take 10 mg by 0 Active tablet mouth every 8 (eight) hours as needed for Muscle Spasms. naproxen 500 mg tablet Take 500 mg by 0 Active mouth 2 (two) times daily with meals. methocarbamol 500 mg Take 1 tablet 30 tablet 1 10/23/2018 Active tabletIndications: Acute by mouth 2 low back pain without (two) times sciatica, unspecified daily. back pain laterality traMADOL 50 mg Take 1 tablet 16 tablet 0 10/23/2018 Active tabletIndications: Acute by mouth every low back pain without 6 (six) hours sciatica, unspecified as needed for back pain laterality Pain (scale 7-10). documented as of this encounter (statuses as of 11/13/2018) Active Problems No known active problemsdocumented as [...] Signs Not on filedocumented in this encounter Progress Notes Carmen Mott, PT - 11/13/2018 11:00 AM CDT Physical Therapy Outpatient Progress Note 11/13/2018 11:11 AM Physical Therapy Note: S: Pt with c/o 3/10 pain in lower back but she has taken her pain medicine this morning. Pt states yesterday her low back pain was an 8/10, R>L and it hurt to walk. O: Therapeutic exercise per flow sheet. Educated pt on HEP. Date: 11/07 11/13 Stretching: SKC 2x30"ea 2x30" DKC Piriformis 2x30"ea 2x30" HS stretch 2x30"ea 2x30"ea Trunk Rotations Exercises: Pelvic Tilts 5"x5 5"x10 Bridging x5 x5 Marching with Abd bracing Dying bug-alt UE/LE SLR's Prone on elbows Prone press ups Manual traction 3x1' Lat Pull Downs Rows Japanese Ball: Seated on ball with tilt Alt UE Alt LE/Marching Alt UE/LE Bridging w/ feet on ball Prone walkout plank SI Mobs (prn) rotated rotated and fixed STM x4' Ultrasound 3MHz @ 1.0 continue x 6' MHP (prn) 10' CP (prn) Provider Initials MW 1 Eval LO 2 Home Exercise Program A: Pt presents with c/o stiffness and pain in her right SIJ. Pt rotated and fixed. Pt reports thather SI joint feels stuck. Pt reports SIJ felt better after adjustment, however, it was still painful. Manual lumbar traction performed and patient stated it felt "really good" and it gave her a relief of pressure. Pt inquired about using a lumbar brace at work and was fitted. P: Continue per POC advancing exercises as patient tolerates. Patient provided with preferred teaching of verbal information on HEP. Shows readiness to learn. Verbal instruction teaching provided. Individual is able to read and verbalizes understanding of teaching provided. Kelly Chopra, SPT I was present and participated throughout the session and agree with the documentation as written bythe student therapist on the encounter dated 11/13/18. Carmen Jason, PT [place] PT License [id number] [facility] Health [facility] Rehabilitation Services Department (phone) (fax) Total Timed Tx Codes in Minutes: 40 min Total Treatment Time in Minutes: 40 min documented in this encounter Plan of Treatment Date Type Specialty Care Team Description 11/16/2018 Office Visit Neurological Surgery Cristi Hayes MD [address] [place] [phone] 11/20/2018 Ancillary Visit Physical Therapy Rigoberto Diez MD [address] [place] [address] [phone] Carmen Mott, PT [address] [place] [address] 11/22/2018 Ancillary Visit Physical Therapy Rigoberto Diez MD [address] [place] [address] Carmen Mott, PT [address] [place] [address] Health Maintenance Due Date Last Done Comments DTaP,Tdap,and Td Vaccines ( - 1998 Tdap) PAP SMEAR 2000 INFLUENZA VACCINE 12/16/2018 PNEUMOCOCCAL 0-64 YEARS COMBINED Aged Out No longer eligible based on SERIES patient's age to complete this topic documented as of this encounter Results Not on filedocumented in this encounter Visit Diagnoses Diagnosis Low back pain radiating down leg - Primary documented in this encounter Insurance Payer Benefit Plan / Subscriber ID Effective Dates Phone Address Type Group [facility] [id number] 2017-Present PPO/POS [facility] EMPLOYEE EMPLOYEE PLAN [phone] (Work) documented as of this encounter
--- OUTSIDE RECORDS SUMMARY | 2019-03-02 21:07 | XMS REPORT | Summary of Care ---
:1980 Author Organization [facility] Address [address] [place] [address] Care Team Providers Name Role Phone Kevin Valadez MD Primary Care Provider Reason for Visit Radiology Services (Routine) Status Reason Specialty Diagnoses / Referred By Referred To Procedures Contact Contact New Request Diagnostic Diagnoses Lumbar radiculopathy Cristi Hayes MD Radiology Procedures XR PELVIS <3 VW [address] [place] [address] Encounter Details Date Type Department Care Team Description 11/16/2018 Hospital Encounter [facility] Diagnostic Cristi Hayes MD Arrived and Breast Imaging, [address] [place] [address] floor [phone] [place] [address] Allergies Active Allergy Reactions Severity [...] Visit Physical Therapy Rigoberto Diez MD [address] [place] [address] Carmen Mott, PT [address] [place] [address] 11/22/2018 Ancillary Visit Physical Therapy Rigoberto Diez MD [address] [place] [address] Sherley Lofton, [facility] [address] [place] [address] Health Maintenance Due Date Last Done Comments DTaP,Tdap,and Td Vaccines (1 - 1998 Tdap) PAP SMEAR 2000 INFLUENZA VACCINE 12/16/2018 PNEUMOCOCCAL 0-64 YEARS COMBINED Aged Out No longer eligible based on SERIES patient's age to complete this topic documented as of this encounter Procedures Procedure Name Priority Date/Time Associated Diagnosis Comments XR SACROILIAC Routine 11/16/2018 9:59 Lumbar radiculopathy Results for this JOINTS 3+ VW AM CDT procedure are in the results section. documented in this encounter Results XR SACROILIAC JOINTS 3+ VW (11/16/2018 9:59 AM CDT) Specimen Narrative Performed At * * * * * * * * ORIGINAL REPORT * * * * * * * * PACS/VR/DOSE EXAM: XR SACROILIAC JOINTS 3+ VW HISTORY: LBP versus SI joint pain Please do x-ray for the pelvis to evaluate for SI joint dysfunction COMPARISON: None. FINDINGS: The sacroiliac joints are normal in appearance. An IUD lies in the pelvis. Procedure Note [facility], Radiant Results Inft User - 11/16/2018 11:32 AM CDT * * * * * * * * ORIGINAL REPORT * * * * * * * * EXAM: XR SACROILIAC JOINTS 3+ VW HISTORY: LBP versus SI joint pain Please do x-ray for the pelvis to evaluate for SI joint dysfunction COMPARISON: None. FINDINGS: The sacroiliac joints are normal in appearance. An IUD lies in the pelvis. Performing Organization Address City/State/Zipcode Phone Number PACS/VR/DOSE documented in this encounter Visit Diagnoses Diagnosis Lumbar radiculopathy Thoracic or lumbosacral neuritis or radiculitis, unspecified documented in this encounter Insurance Payer Benefit Plan / Subscriber ID Effective Dates Phone Address Type Group [facility] [id number] 2017-Present PPO/POS [employer] EMPLOYEE EMPLOYEE PLAN [phone] (Work) documented as of this encounter
--- OUTSIDE RECORDS SUMMARY | 2019-03-02 21:07 | XMS REPORT ---
:1980 Author Organization [facility] Address [address] [place] [address] Dr. As[address] [place] [address] Care Team Providers Name Role Phone Unavailable Unavailable Unavailable Problems This patient has no known problems. Allergies, Adverse Reactions, Alerts This patient has no known allergies or adverse reactions. Medications This patient has no known medications.
--- OUTSIDE RECORDS SUMMARY | 2019-03-02 21:08 | XMS REPORT | Summary of Care ---
:1980 Author Organization [facility] Address [address] [place] [address] Care Team Providers Name Role Phone Kevin Valadez MD Primary Care Provider Reason for Visit Reason Comments Refill Request Encounter Details Date Type Department Care Team Description 11/15/2018 Refill [facility] Pediatric and Kevin Valadez III, MD Refill Request Adult Primary Care- [address] [place] [address] Dr. Cadena [address] [place] [address] , [place] [address] [facility] [place] [phone] [place] [address] [phone] Allergies Active Allergy Reactions Severity Noted Date Comments Codeine Shortness of Breath 03/17/2017 Oxycodone-Acetaminophen Itching 03/17/2017 Promethazine Hcl Other - See comments 03/17/2017 convulsions Metoclopramide Hcl Unknown - See comments 03/17/2017 Convulsion documented as of this encounter (statuses as of 11/19/2018) Medications Medication Sig Dispensed Refills Start Date End Date Status benzonatate (TESSALON Take 1 30 capsule 0 04/12/2018 Active PERLES) 100 mg capsule by capsuleIndications: mouth 3 Influenza (three) times daily as needed for Cough. ibuprofen (IBU ORAL) Take 800 mg 0 Active by mouth. lisinopril 10 mg Take 1 tablet 90 tablet 3 10/16/2018 Active tabletIndications: by mouth Acute right-sided low daily. back pain with right-sided sciatica doxycycline 100 mg Take 1 tablet 14 tablet 0 10/16/2018 Active tabletIndications: by mouth 2 Acute right-sided low (two) times back pain with daily. right-sided sciatica cyclobenzaprine 10 mg Take 10 mg by 0 Active tablet mouth every 8 (eight) hours as needed for Muscle Spasms. methocarbamol 500 mg Take 1 tablet 30 tablet 1 10/23/2018 Active tabletIndications: by mouth 2 Acute low back pain (two) times without sciatica, daily. unspecified back pain laterality traMADOL 50 mg Take 1 tablet 16 tablet 0 10/23/2018 Active tabletIndications: by mouth Acute low back pain every 6 (six) without sciatica, hours as unspecified back pain needed for laterality Pain (scale 7-10). naproxen 500 mg Take 1 tablet 30 tablet 1 11/19/2018 Active tabletIndications: by mouth 2 Acute low back pain (two) times without sciatica, daily with unspecified back pain meals. laterality naproxen 500 mg Take 500 mg 0 Discontinued tablet by mouth 2 9 (two) times daily with meals. documented as of this encounter (statuses as of 11/19/2018) Active Problems No known active problemsdocumented as [...] Physical Therapy Rigoberto Diez MD [address] [place] [address] Sherley Lofton, [address] [address] 11/22/2018 Ancillary Visit Physical Therapy Rigoberto Diez MD [address] [place] [address] Sherley Lofton, [facility] [address] [place] [address] Health Maintenance Due Date Last Done Comments DTaP,Tdap,and Td Vaccines (1 - 1998 Tdap) PAP SMEAR 2000 INFLUENZA VACCINE 12/16/2018 PNEUMOCOCCAL 0-64 YEARS COMBINED Aged Out No longer eligible based on SERIES patient's age to complete this topic documented as of this encounter Results Not on filedocumented in this encounter Visit Diagnoses Diagnosis Acute low back pain without sciatica, unspecified back pain laterality - Primary documented in this encounter Insurance Payer Benefit Plan / Subscriber ID Effective Dates Phone Address Type Group [facility] - [facility] [id number] 2017-Present PPO/POS [facility] EMPLOYEE EMPLOYEE PLAN documented as of this encounter
--- OUTSIDE RECORDS SUMMARY | 2019-03-02 21:08 | XMS REPORT | Summary of Care ---
:1980 Author Organization [facility] Address [address] [place] [address] Care Team Providers Name Role Phone Kevin Valadez MD Primary Care Provider Reason for Visit Reason Comments Follow-up (Routine) Status Reason Specialty Diagnoses / Referred By Referred To Procedures Contact Contact Authorized Physical Therapy Diagnoses Acute low back pain without sciatica, unspecified back pain laterality Kevin Valadez Adc Physical Procedures CONSULT/REFERRAL PHYSICAL THERAPY WA PHYSICAL THERAPY EVALUATION LOW COMPLEX 20 MINS WA PHYSICAL THERAPY EVALUATION MOD COMPLEX 30 MINS WA PHYSICAL THERAPY EVALUATION HIGH COMPLEX 45 MINS [place] THERAPEUTIC EXERCISES III, MD Therapy [place] NEUROMUSC REEDUCAT,1+ AREAS, EA 15 MIN [place] MANUAL THER TECH,1+REGIONS,EA 15 MIN [place] THERAPEUT ACTVITY DIRECT PT CONTACT EACH 15 MIN [place] SELF-CARE/HOME MGMT TRAINING EACH [address] [place] [address] Professional [address] Phone: [address] [place], [place] Fax: [phone] Encounter Details Date Type Department Care Team Description 11/22/2018 Ancillary Visit [facility] Rigoberto Diez MD [address] [place] [address] [place] [address] Low back pain radiating down leg (Primary Dx); Physical Therapy- Sherley Lofton, [employer] [address] [place] [address] Back pain of lumbar region with sciatica [place] Professional Office Building [address] [place] [address] Dr. Giraldo [address] [place] [address] Allergies Active Allergy Reactions Severity Noted Date Comments Codeine Shortness of Breath 03/17/2017 Oxycodone-Acetaminophen Itching 03/17/2017 Promethazine Hcl Other - See comments 03/17/2017 convulsions Metoclopramide Hcl Unknown - See comments 03/17/2017 Convulsion documented as of this encounter (statuses as of 11/22/2018) Medications Medication Sig Dispensed Refills Start Date [...] Spasms. methocarbamol 500 mg Take 1 tablet by 30 tablet 1 10/23/2018 Active tabletIndications: Acute mouth 2 (two) low back pain without times daily. sciatica, unspecified back pain laterality traMADOL 50 mg Take 1 tablet by 16 tablet 0 10/23/2018 Active tabletIndications: Acute mouth every 6 low back pain without (six) hours as sciatica, unspecified needed for Pain back pain laterality (scale 7-10). naproxen 500 mg Take 1 tablet by 30 tablet 1 11/19/2018 Active tabletIndications: Acute mouth 2 (two) low back pain without times daily with sciatica, unspecified meals. back pain laterality methylPREDNISolone Take by mouth 21 Each 0 11/16/2018 Active (MEDROL, SHAUN,) 4 mg SEE-INSTRUCTIONS tabletsIndications: . follow package Lumbar radiculopathy directions documented as of this encounter (statuses as of 11/22/2018) Active Problems No known active problemsdocumented as [...] on filedocumented in this encounter Progress Notes Rolly Sherley Lazaro, [employer] - 11/22/2018 11:00 AM CDT Physical Therapy Outpatient Progress Note 11/22/2018 11:02 AM Physical Therapy Note: S: Pt c/o 04/26 pain in low back this morning. She states she is feeling pretty good this morning. O: Therapeutic exercise per flow sheet. Diagnosis: LBP, SI Dysfunction Precautions: Falls POC DUE: 12/11/18 or 8th visit Date: 11/07 11/13 11/20 11/22 Stretching: SKC 2x30"ea 2x30" 2x30"ea 3x30"ea DKC Piriformis 2x30"ea 2x30" 2x30"ea 3x30"ea HS stretch 2x30"ea 2x30"ea 2x30"ea 3x30"ea Trunk Rotations Exercises: Pelvic Tilts 5"x5 5"x10 5"x10 5"x15 Bridging x5 x5 x5 x10 SI Mobs (prn) rotated rotated and fixed R ant rot aligned Marching with Abd bracing x10ea Dying bug-alt UE/LE SLR's x10ea Prone on elbows Prone press ups Manual traction 3x1' 3x1' 3x1' Lat Pull Downs Rows Emirati Ball: Seated on ball with tilt Alt UE Alt LE/Marching Alt UE/LE NuStep L2 x5' STM x4' Ultrasound 3MHz @ 1.0 continue x 6' 3MHz @ 1.0 continue x 6' 3MHz @ 1.0 continue x 6' MHP (prn) 10' 8' 8' CP (prn) Provider Initials MW 1 Eval LO 2 MB 3 MB 4 Home Exercise Program: Continue HEP as previously ordered. Taught SI nerve glides. A: SI aligned today. Added NuStep with slight increase in tightness but not pain. Used Biofreeze with US with good results. Pt tolerated treatment well. P: Continue per POC 2x4 weeks to increase strength and functional mobility. Will add/advance exercises as patient tolerates. Sherley Lofton PTA [place] Lic#[id number] Supervised by: Carmen Jason PT [facility] Health [facility] Rehabilitation Services Dept. [phone] (phone) Total Timed Tx Codes in Minutes: 40 min Total Treatment Time in Minutes: 50 min documented in this encounter Plan of Treatment Date Type Specialty Care Team Description 11/27/2018 Ancillary Visit Physical Therapy Lacy Velasquez, PT [address] [place] [address] 11/29/2018 Ancillary Visit Physical Therapy Lacy Velasquez, PT [address] [place] [address] Health Maintenance Due Date Last Done Comments DTaP,Tdap,and Td Vaccines (1 - 1998 Tdap) PAP SMEAR 2000 INFLUENZA VACCINE 12/16/2018 PNEUMOCOCCAL 0-64 YEARS COMBINED Aged Out No longer eligible based on SERIES patient's age to complete this topic documented as of this encounter Results Not on filedocumented in this encounter Visit Diagnoses Diagnosis Low back pain radiating down leg - Primary Back pain of lumbar region with sciatica documented in this encounter Insurance Payer Benefit Plan / Subscriber ID Effective Dates Phone Address Type Group [facility] [id number] 2017-Present PPO/POS [facility] EMPLOYEE EMPLOYEE PLAN [phone] (Work) documented as of this encounter
--- OUTSIDE RECORDS SUMMARY | 2019-03-02 21:08 | XMS REPORT | Summary of Care ---
:1980 Author Organization [facility] Address [address] [place] [address] Care Team Providers Name Role Phone Kevin Valadez MD Primary Care Provider Reason for Visit Reason Comments Refill Request Encounter Details Date Type Department Care Team Description 11/15/2018 Refill [facility] Pediatric and Kevin Valadez III, MD Refill Request Adult Primary Care- [address] [place] [address] Dr. Cadena [address] [place] [address] , [place] [address] [facility] [phone] [place] [address] [phone] Allergies Active Allergy Reactions Severity Noted Date Comments Codeine Shortness of Breath 03/17/2017 Oxycodone-Acetaminophen Itching 03/17/2017 Promethazine Hcl Other - See comments 03/17/2017 convulsions Metoclopramide Hcl Unknown - See comments 03/17/2017 Convulsion documented as of this encounter (statuses as of 11/21/2018) Medications Medication Sig Dispensed Refills Start Date [...] as of this encounter (statuses as of 11/21/2018) Active Problems No known active problemsdocumented as [...] Treatment Date Type Specialty Care Team Description 11/22/2018 Ancillary Visit Physical Therapy Rigoberto Diez MD [address] [place] [address] Sherley Lofton, [employer] [address] [place] [address] 11/27/2018 Ancillary Visit Physical Therapy Lacy Velasquez, PT [address] [place] [address] 11/29/2018 Ancillary Visit Physical Therapy Lacy Velasquez, PT [address] [place] [address] Health Maintenance Due Date Last Done Comments [...] ID Effective Dates Phone Address Type Group [facility] [id number] 2017-Present PPO/POS [facility] EMPLOYEE EMPLOYEE PLAN documented as of this encounter
--- OUTSIDE RECORDS SUMMARY | 2019-03-02 21:08 | XMS REPORT | Summary of Care ---
:1980 Author Organization [facility] Address [address] [place] [address] Care Team Providers Name Role Phone Kevin Valadez MD Primary Care Provider Encounter Details Date Type Department Care Team Description 11/25/2018 Orders Only [facility] Doctor Unassigned, No [address] [facility] [place] [address] [address] [place] [address] Allergies Active Allergy Reactions Severity Noted Date Comments Codeine Shortness of Breath 03/17/2017 Oxycodone-Acetaminophen Itching 03/17/2017 Promethazine Hcl Other - See comments 03/17/2017 convulsions Metoclopramide Hcl Unknown - See comments 03/17/2017 Convulsion documented as of this encounter (statuses as of 11/25/2018) Medications Medication Sig Dispensed Refills Start Date [...] as of this encounter (statuses as of 11/25/2018) Active Problems No known active problemsdocumented as [...] Visit Physical Therapy Lacy Velasquez, PT [address] [place] [address] 11/29/2018 Ancillary Visit Physical Therapy Lacy Velasquez, PT [address] [place] [address] Health Maintenance Due Date Last Done Comments DTaP,Tdap,and Td Vaccines (1 - 1998 Tdap) PAP SMEAR 2000 INFLUENZA VACCINE 12/16/2018 PNEUMOCOCCAL 0-64 YEARS COMBINED Aged Out No longer eligible based on SERIES patient's age to complete this topic documented as of this encounter Procedures Procedure Name Priority Date/Time Associated Diagnosis Comments CONSENT/REFUSAL FOR Routine 11/25/2018 12:37 PM CDT DIAGNOSIS AND TREATMENT documented in this encounter Results Not on filedocumented in this encounter Insurance Payer Benefit Plan / Subscriber ID Effective Dates Phone Address Type Group [employer] [facility] [employer] [place] [id number] 2017-Present PPO/POS [facility] EMPLOYEE EMPLOYEE PLAN documented as of this encounter
--- OUTSIDE RECORDS SUMMARY | 2019-03-02 21:08 | XMS REPORT | Summary of Care ---
:1980 Author Organization [facility] Address [address] [place] [address] Care Team Providers Name Role Phone Kevin Valadez MD Primary Care Provider Reason for Visit Reason Comments Follow-up (Routine) Status Reason Specialty Diagnoses / Referred By Referred To Procedures Contact Contact Authorized Physical Therapy Diagnoses Acute low back pain without sciatica, unspecified back pain laterality Kevin Valadez Adc Physical Procedures CONSULT/REFERRAL PHYSICAL THERAPY ND PHYSICAL THERAPY EVALUATION LOW COMPLEX 20 MINS ND PHYSICAL THERAPY EVALUATION MOD COMPLEX 30 MINS ND PHYSICAL THERAPY EVALUATION HIGH COMPLEX 45 MINS ND THERAPEUTIC EXERCISES III, MD Therapy ND NEUROMUSC REEDUCAT,1+ AREAS, EA 15 MIN ND MANUAL THER TECH,1+REGIONS,EA 15 MIN ND THERAPEUT ACTVITY DIRECT PT CONTACT EACH 15 MIN ND SELF-CARE/HOME MGMT TRAINING EACH [address] [place] [address] Professional [address] Phone: [address] [place], [place] Fax: [phone] Encounter Details Date Type Department Care Team Description 11/20/2018 Ancillary Visit [facility] Rigoberto Diez MD [address] [place] [address] [place] [address] Low back pain radiating down leg (Primary Dx); Physical Therapy- Sherley Lofton, [employer]NF[employer]CEMENT [employer]AF[employer]Y OFFICER [address] [place] [address] Back pain of lumbar region with sciatica [facility] [address] [place] [address] Dr. Giraldo [address] [place] [address] Allergies Active Allergy Reactions Severity Noted Date Comments Codeine Shortness of Breath 03/17/2017 Oxycodone-Acetaminophen Itching 03/17/2017 Promethazine Hcl Other - See comments 03/17/2017 convulsions Metoclopramide Hcl Unknown - See comments 03/17/2017 Convulsion documented as of this encounter (statuses as of 11/20/2018) Medications Medication Sig Dispensed Refills Start Date [...] as of this encounter (statuses as of 11/20/2018) Active Problems No known active problemsdocumented as [...] on filedocumented in this encounter Progress Notes Sherley Lofton, ENFORCEMENT SAFETY OFFICER - 11/20/2018 11:00 AM CDT Physical Therapy Outpatient Progress Note 11/17/2018 11:02 AM Physical Therapy Note: S: Pt c/o 410 pain in low back this morning. She states her neuro Dr wants her to have injections and referred her to pain management. Pt also reports that she worked 2, 12 hour shifts over the weekend and has been hurting since. O: Therapeutic exercise per flow sheet. Educated pt on HEP. Diagnosis: LBP, SI Dysfunction Precautions: Falls POC DUE: 12/11/18 or 8th visit Date: 11/07 11/13 11/20 Stretching: SKC 2x30"ea 2x30" 2x30"ea DKC Piriformis 2x30"ea 2x30" 2x30"ea HS stretch 2x30"ea 2x30"ea 2x30"ea Trunk Rotations Exercises: Pelvic Tilts 5"x5 5"x10 5x20" Bridging x5 x5 x5 SI Mobs (prn) rotated rotated and fixed R ant rot Marching with Abd bracing Dying bug-alt UE/LE SLR's Prone on elbows Prone press ups Manual traction 3x1' 3x1' Lat Pull Downs Rows Martiniquais Ball: Seated on ball with tilt Alt UE Alt LE/Marching Alt UE/LE Bridging w/ feet on ball Prone walkout plank STM x4' Ultrasound 3MHz @ 1.0 continue x 6' 3MHz @ 1.0 continue x 6' MHP (prn) 10' 8' CP (prn) Provider Initials MW 1 Loual LO 2 MB 3 Home Exercise Program: Continue HEP as previously ordered. Taught SI nerve glides. A: SI with right anterior rotation corrected with METS. Symptoms have centralized, and are no longergoing down right leg. Good recall of stretches and good core activation with pelvic tilts. Used Biofreeze with US with good results. P: Continue per POC 2x4 weeks to increase strength and functional mobility. Will add/advance exercises as patient tolerates. Sherley Lofton PTA [place] Lic#[id number] Supervised by: Carmen Jason, PT [facility] Dept. [phone] (phone) Total Timed Tx Codes in Minutes: 30 min Total Treatment Time in Minutes: 40 min documented in this encounter Plan of Treatment Date Type Specialty Care Team Description 11/22/2018 Ancillary Visit Physical Therapy Rigoberto Diez MD [facility] [place] [phone] Sherley Lofton PTA [address] [place] [address] 11/27/2018 Ancillary Visit Physical Therapy Lacy Velasquez, PT [address] [place] [address] 11/29/2018 Ancillary Visit Physical Therapy Lacy Velasquez, PT [address] [place] [address] Health Maintenance Due Date Last Done Comments [...] ID Effective Dates Phone Address Type Group [facility] [id number] 2017-Present PPO/POS [employer] [employer] [employer] EM[employer]EE PLAN [phone] [id number] (Work) documented as of this encounter
--- OUTSIDE RECORDS SUMMARY | 2019-03-02 21:09 | XMS REPORT | Summary of Care ---
:1980 Author Organization [facility] - Health Address [address] [place] [address] Care Team Providers Name Role Phone Kevin Valadez MD Primary Care Provider Encounter Details Date Type Department Care Team Description 12/14/2018 Orders Only [facility] Doctor Unassigned, No [address] [facility] [place] [address] [address] [place] [address] Allergies Active Allergy Reactions Severity Noted Date Comments Codeine Shortness of Breath 03/17/2017 Oxycodone-Acetaminophen Itching 03/17/2017 Promethazine Hcl Other - See comments 03/17/2017 convulsions Metoclopramide Hcl Unknown - See comments 03/17/2017 Convulsion documented as of this encounter (statuses as of 12/27/2018) Medications Medication Sig Dispensed Refills Start Date [...] times daily. sciatica, unspecified back pain laterality naproxen 500 mg Take 1 tablet by 30 tablet 1 11/19/2018 Active tabletIndications: Acute mouth 2 (two) low back pain without times daily with sciatica, unspecified meals. back pain laterality methylPREDNISolone Take by mouth 21 Each 0 11/16/2018 Active (MEDROL, SHAUN,) 4 mg SEE-INSTRUCTIONS tabletsIndications: . follow package Lumbar radiculopathy directions ondansetron (ZOFRAN ODT) Take 1 tablet by 6 tablet 0 11/25/2018 Active 4 mg disintegrating mouth every 8 tabletIndications: Flank (eight) hours as pain, Kidney stones needed for Nausea and Vomiting (N/V). traMADol (ULTRAM) 50 mg Take 1 tablet by 9 tablet 0 11/25/2018 Active tabletIndications: Flank mouth every 8 pain, Kidney stones (eight) hours as needed for Pain (scale 4-6). tamsulosin 0.4 mg 24 hr Take 1 capsule 14 capsule 0 11/25/2018 Active capsuleIndications: by mouth at Flank pain, Kidney bedtime. stones documented as of this encounter (statuses as of 12/27/2018) Active Problems No known active problemsdocumented as [...] filedocumented in this encounter Plan of Treatment Health Maintenance Due Date Last Done Comments DTaP,Tdap,and Td Vaccines (1 - 1998 Tdap) PAP SMEAR 2000 INFLUENZA VACCINE (#1) 2018 PNEUMOCOCCAL 0-64 YEARS COMBINED Aged Out No longer eligible based on SERIES patient's age to complete this topic documented as of this encounter Procedures Procedure Name Priority Date/Time Associated Diagnosis Comments INSURANCE CORRESPONDENCE Routine 12/14/2018 12:01 AM CDT documented in this encounter Results Not on filedocumented in this encounter Insurance Payer Benefit Plan / Subscriber ID Effective Dates Phone Address Type Group [facility] [id number] 2017-Present PPO/POS [employer] [employer] [employer] EMPLOYEE PLAN documented as of this encounter
--- OUTSIDE RECORDS SUMMARY | 2019-03-02 21:09 | XMS REPORT | Summary of Care ---
:1980 Author Organization [facility] Address [address] [place] [address] Care Team Providers Name Role Phone Kevin Valadez MD Primary Care Provider Reason for Referral (Routine) Status Reason Specialty Diagnoses / Referred By Referred To Procedures Contact Contact New Request Urology Diagnoses Flank pain Kidney stones Meka Alarcon Procedures CONSULT UROLOGY III, PA [address] [facility] [place] [address] MRI/CAT Scan (JACQUI) Status Reason Specialty Diagnoses / Referred By Referred To Procedures Contact Contact New Request Diagnostic Diagnoses Flank pain Meka Alarcon Radiology Procedures CT ABDOMEN PELVIS WO CONTRAST III, PA [address] [facility] [place] [address] MRI/CAT Scan (JACQUI) Status Reason Specialty Diagnoses / Referred By Referred To Procedures Contact Contact New Request Diagnostic Diagnoses Flank pain Meka Alarcon Radiology Procedures CT ABDOMEN PELVIS WO CONTRAST III, PA [address] [facility] [place] [address] Reason for Visit Reason Comments Flank Pain Auth/Cert Status Reason Specialty Diagnoses / Referred By Referred To Procedures Contact Contact Emergency Medicine Diagnoses LT SIDE FLANK PAIN [facility] [address] [place] [address] [place] [address] Encounter Details Date Type Department Care Team Description 11/25/2018 Emergency [facility]-Emergency Dharmesh, Meka A III, Flank pain ( Primary Dx); Department PA Kidney stones 132 [facility] [address] [facility] [address] [place], [place] [address] [place] [id number] Allergies Active Allergy Reactions Severity Noted Date Comments Codeine Shortness of Breath 03/17/2017 Oxycodone-Acetaminophen Itching 03/17/2017 Promethazine Hcl Other - See comments 03/17/2017 convulsions Metoclopramide Hcl Unknown - See comments 03/17/2017 Convulsion documented as of this encounter (statuses as of 11/25/2018) Medications Medication Sig Dispensed Refills Start End Date Status Date benzonatate (TESSALON Take 1 capsule 30 capsule 0 Active PERLES) 100 mg by mouth 3 8 capsuleIndications: (three) times Influenza daily as needed for Cough. ibuprofen (IBU ORAL) Take 800 mg by 0 Active mouth. lisinopril 10 mg Take 1 tablet 90 tablet 3 Active tabletIndications: by mouth 9 Acute right-sided low daily. back pain with right-sided sciatica doxycycline 100 mg Take 1 tablet 14 tablet 0 Active tabletIndications: by mouth 2 9 Acute right-sided low (two) times back pain with daily. right-sided sciatica cyclobenzaprine 10 mg Take 10 mg by 0 Active tablet mouth every 8 (eight) hours as needed for Muscle Spasms. methocarbamol 500 mg Take 1 tablet 30 tablet 1 Active tabletIndications: by mouth 2 9 Acute low back pain (two) times without sciatica, daily. unspecified back pain laterality naproxen 500 mg Take 1 tablet 30 tablet 1 Active tabletIndications: by mouth 2 9 Acute low back pain (two) times without sciatica, daily with unspecified back pain meals. laterality methylPREDNISolone Take by mouth 21 Each 0 Active (MEDROL, SHAUN,) 4 mg SEE-INSTRUCTIO 9 tabletsIndications: NS. follow Lumbar radiculopathy package directions ondansetron (ZOFRAN Take 1 tablet 6 tablet 0 Active ODT) 4 mg by mouth every 9 disintegrating 8 (eight) tabletIndications: hours as Flank pain, Kidney needed for stones Nausea and Vomiting (N/V). traMADol (ULTRAM) 50 Take 1 tablet 9 tablet 0 Active mg tabletIndications: by mouth every 9 Flank pain, Kidney 8 (eight) stones hours as needed for Pain (scale 4-6). tamsulosin 0.4 mg 24 Take 1 capsule 14 capsule 0 Active hr capsuleIndications: by mouth at 9 Flank pain, Kidney bedtime. stones traMADOL 50 mg Take 1 tablet 16 tablet 0 11/26/19 Discontinued tabletIndications: by mouth every 9 19 Acute low back pain 6 (six) hours without sciatica, as needed for unspecified back pain Pain (scale laterality 7-10). documented as of this encounter (statuses [...] Sign Reading Time Taken Comments Blood Pressure 139/80 11/25/2018 3:58 PM CDT Pulse 64 11/25/2018 3:58 PM CDT Temperature 37.5 C (99.5 F) 11/25/2018 12:56 PM CDT Respiratory Rate 18 11/25/2018 3:58 PM CDT Oxygen Saturation 98% 11/25/2018 3:58 PM CDT Inhaled Oxygen Concentration - - Weight 106.6 kg (235 lb) 11/25/2018 12:54 PM CDT Height - - Body Mass Index 39.11 11/16/2018 9:19 AM CDT documented in this encounter Discharge Instructions Meka Ann III, PA - 11/25/2018 @@@@@@@@@@@@@@@@@@@@@@@@@@@@@@@@@@@@@@@@@@@@@@@@@@@@@ [facility] RETURN TO WORK / SCHOOL EXCUSE Octavia Lo WAS SEEN IN THE ER AND DISCHARGED 11/25/2018 TODAY, 4:41 PM & May return to Work / School / Incarceration on 11/26/18 with No limitations unless indicated below. ___The following limitations apply until pt is seen by Physician and cleared to return to normal activity. ___ Light duty ___ No Sports ___ No work ___ Do not return until fever free for 24 hours. ___ No school Ed Dharmesh MANRIQUE [facility] [address] [place] [address] [place] [address] If you are unprepared to return to work tomorrow due to pain please give this note to your employer and make a follow up appointment with your MD for further evaluation and limitations. ### The patient may have been given Narcotic pain medications during their stay in the ED that may show up on a Drug Screen. The hospital discharge paper work will identify these medications. @@@@@@@@@@@@@@@@@@@@@@@@@@@@@@@@@@@@@@@@@@@@@@@@@@@@@ Thank you for trusting us with your care. The emergency room is the first stop in the medical management of your complaint . Our primary pupose is to identify life threatening emergancies and to rapidly address those issues. We are releasing you today after evaluation for emergency or life threatening problems related to your complaint. At this time we are comfortable that your condition is stable enough to go home, take oral medications and follow up for further care. If you can't afford a doctor OR MEDICATIONS consider [facility], [address] [place] [address]; [phone] Medications [email or web address] WILL SHOW YOU WHERE YOU CAN GET YOUR MEDICATIONS CHEAPEST. 1. Call your doctor and let them know you were seen for ICD-10-CM ICD-9-CM 1. Flank pain R10.9 789.09 2. Kidney stones N20.0 592.0 2. Schedule a follow up within 3 days of your ER visit. 3. Take your prescriptions to the pharmacy and get them filled today. 4. Take the medications as prescribed and until completed. 5. You have been referred for further care 6. You may need additional tests Your doctors will help you figure out what you need and how to get them done. 7. Please read all paperwork provided to you. Additional instructions See Attached AttachmentsThe following attachments cannot be sent through Care Everywhere.Lithotripsy, Shock Wave ([place])documented in this encounter Plan of Treatment Date Type Specialty Care Team Description 11/27/2018 Ancillary Visit Physical Therapy Lacy Velasquez, PT [address] [place] [address] 11/29/2018 Ancillary Visit Physical Therapy Lacy Velasquez, PT [address] [place] [address] Name Type Priority Associated Diagnoses Date/Time CT ABDOMEN PELVIS WO IMAGING JACQUI Flank pain 11/25/2018 1:49 PM CDT CONTRAST Health Maintenance Due Date Last Done Comments DTaP,Tdap,and Td Vaccines ( - 1998 Tdap) PAP SMEAR 2000 INFLUENZA VACCINE 12/16/2018 PNEUMOCOCCAL 0-64 YEARS COMBINED Aged Out No longer eligible based on SERIES patient's age to complete this topic documented as of this encounter Procedures Procedure Name Priority Date/Time Associated Diagnosis Comments CT ABDOMEN PELVIS WO JACQUI 11/25/2018 1:49 PM CDT Flank pain CONTRAST Procedure Note - [facility], Radiant Results Inft User - 11/25/2018 4:[address] ABDOMEN AND PELVIS WITHOUT CONTRAST HISTORY: Flank pain, recurrent stone disease suspected COMPARISON: None. TECHNIQUE: Contiguous axial imaging from the level of the lung bases through the pubic symphysis was performed without the intravenous administration of contrast. Coronal and sagittal reconstructions were obtained. FINDINGS: LOWER THORAX: Focal groundglass attenuation is partially visualized in the inferior right middle lobe. The lung bases are otherwise clear. The heart is not completely imaged. LIVER: No focal hepatic lesions. No biliary ductal dilation. GALLBLADDER: Normally distended without stones. SPLEEN: No splenomegaly. PANCREAS: No ductal dilation or masses. ADRENAL GLANDS: No adrenal nodules. KIDNEYS: 3 nonobstructing calcified stones in the left kidney measuring 2-3 mm are noted. A partially obstructing 2 mm stone in the distal left ureter results in mild left hydroureter. No hydronephrosis or masses. 3 nonobstructing calcified renal stones are seen in the right kidney measuring 2-3 mm. The right ureter is normal. No hydronephrosis or masses. PERITONEUM AND RETROPERITONEUM: No free air or fluid. LYMPH NODES: No lymphadenopathy. GI TRACT: No dilation or wall thickening. Normal appendix. PELVIS/BLADDER: The bladder is nondistended. Normal uterus. A radiopaque IUD with satisfactory positioning within the uterus. Normal ovaries. VESSELS: Unremarkable. BONES AND SOFT TISSUES: No suspicious lytic or sclerotic bony lesions. IMPRESSION 1. Partially obstructing 3 mm calcified stone in the distal left ureter results in mild hydroureter. At least 3 nonobstructing 2-3 mm calcified stones are seen in both kidneys. No hydronephrosis in either kidney. 2. Focal groundglass attenuation is partially visualized in the right middle lobe. This is nonspecific and may represent atelectasis or an infectious/inflammatory process. Clinical correlation is recommended. POCT TEST Routine 11/25/2018 1:12 PM Flank pain Results for this CDT procedure are in the results section. CBC WITH DIFFERENTIAL STAT 11/25/2018 1:06 PM Flank pain Results for this CDT procedure are in the results section. URINALYSIS STAT 11/25/2018 1:06 PM Flank pain Results for this CDT procedure are in the results section. CBC WITH DIFF STAT 11/25/2018 1:06 PM Flank pain Results for this CDT procedure are in the results section. COMP. METABOLIC PANEL STAT 11/25/2018 1:06 PM Flank pain Results for this (16805) CDT procedure are in the results section. LIPASE STAT 11/25/2018 1:06 PM Flank pain Results for this CDT procedure are in the results section. NOTICE OF PRIVACY Routine 11/25/2018 12:37 PM PRACTICES CDT documented in this encounter Results POCT TEST (11/25/2018 1:12 PM CDT) POCT PREG [id number] On board controls acceptable present with C Line POCT PREG LOT # negative POCT PREG TEST DATE 04/16/20 Specimen Urine LIPASE (11/25/2018 1:06 PM CDT) LIPASE 57 0 - 220 U/L [facility] Specimen Blood - VENOUS Performing Organization Address City/State/Zipcode Phone Number [facility] CLIA: [id number], [address] [place] [address] CBC WITH DIFFERENTIAL (11/25/2018 1:06 PM CDT) WBC 8.13 4.30 - 11.10 [facility] 10*3/L H[facility] RBC 4.26 3.93 - 5.25 [facility] 10*6/L [facility] HGB 13.0 11.6 - 15.0 g/dL [facility] HCT 37.5 35.7 - 45.2 % [facility] MCV 88.0 80.6 - 95.5 fL [facility] MCH 30.5 25.9 - 32.8 pg [facility] MCHC 34.7 31.6 - 35.1 g/dL [facility] RDW-SD 40.7 39.0 - 49.9 fL [facility] RDW-CV 12.6 12.0 - 15.5 % [facility] PLT 342 166 - 358 [facility] 10*3/L [facility] MPV 9.4 (L) 9.5 - 12.9 fL [facility] NRBC/100 WBC 0.0 0.0 - 10.0 /100 [facility] WBCs [facility] NRBC x10^3 <0.01 10*3/L [facility] GRAN MAT (NEUT) % 62.4 % [facility] IMM GRAN % 0.20 % [facility] LYMPH % 28.0 % [facility] MONO % 6.2 % [facility] EOS % 2.7 % [facility] BASO % 0.5 % [facility] GRAN MAT x10^3(ANC) 5.07 1.88 - 7.09 [facility] 10*3/uL [facility]ITAL [facility] IMM GRAN x10^3 <0.03 0.00 - 0.06 [facility] 10*3/uL [facility] LYMPH x10^3 2.28 1.32 - 3.29 [facility] 10*3/uL [facility] MONO x10^3 0.50 0.33 - 0.92 [facility] 10*3/uL [facility]ITAL [facility] EOS x10^3 0.22 0.03 - 0.39 [facility] 10*3/uL [facility] BASO x10^3 0.04 0.01 - 0.07 [facility] 10*3/uL [facility] Specimen Blood - VENOUS Performing Organization Address City/State/Zipcode Phone Number [facility] CLIA: [id number], [address] [place] [address] COMP. METABOLIC PANEL (04553) (11/25/2018 1:06 PM CDT) NA 143 135 - 145 [facility] mmol/L [facility] K 4.6 3.5 - 5.0 [facility] mmol/L [facility] CL 110 (H) 98 - 108 mmol/L [facility] CO2 TOTAL 21 (L) 23 - 31 mmol/L [facility] AGAP 12 2 - 16 [facility] BUN 15 7 - 23 mg/dL [facility] GLUCOSE 102 70 - 110 mg/dL [facility] CREATININE 0.57 0.50 - 1.04 [facility] mg/dL [facility] TOTAL BILI 0.6 0.1 - 1.1 mg/dL [facility] CALCIUM 9.4 8.6 - 10.6 [facility] mg/dL [facility] T PROTEIN 8.0 6.3 - 8.2 g/dL [facility] ALBUMIN 4.6 3.5 - 5.0 g/dL [facility] ALK PHOS 58 34 - 122 U/L [facility] ALT(SGPT) 18 9 - 51 U/L [facility] AST(SGOT) 54 (H) 13 - 40 U/L [facility] eGFR Calculation 118.1 mL/min/1.73m2 [facility] ([facility] Bhutanese) eGFR Calculation 143.1 mL/min/1.73m2 [facility] () [facility] Specimen Blood - VENOUS Narrative Performed At Association of Glomerular Filtration Rate (GFR) [facility] and Staging of Kidney Disease* + + +- + | GFR (mL/min/1.73 m2)| With Kidney Damage|Without Kidney Damage + + +- + |>90| Stage one| Normal + + +- + |60-89|S tage two| Decreased GFR + + +- + |30-59|S tage three| Stage three + + +- + |15-29|S tage four | Stage four + + +- + |<15 (or dialysis)|Stage five | Stage five + + +- + *Each stage assumes the associated GFR level has been in effect for at least three months.Stages 1 to 5, with or without kidney disease, indicate chronic kidney disease. Notes: Determination of stages one and two (with eGFR >59mL/min/1.73 m2) requires estimation of kidney damage for at least three months as defined by structural or functional abnormalities of the kidney, manifested by either: Pathological abnormalities or Markers of kidney damage (including abnormalities in the composition of the blood or urine or abnormalities in imaging tests). Performing Organization Address [facility] Phone Number [facility] CLIA: [id number], [address] [place] [address] URINALYSIS (11/25/2018 1:06 PM CDT) APPEARANCE Cloudy (A) Clear [facility] COLOR Yellow Yellow [facility] PH 6.5 4.8 - 8.0 [facility] SP GRAVITY 1.020 1.003 - 1.030 [facility] GLU U QUAL Negative Negative [facility] BLOOD Large (A) Negative [facility] KETONES Negative Negative [facility] PROTEIN Trace (A) Negative [facility] UROBILIN 0.2 mg/dL 0-1.0 mg/dL [facility] BILIRUBIN Negative Negative [facility] NITRITE Negative Negative [facility] LEUK HECTOR Negative Negative [facility] RBC/HPF >182 (H) 0 - 3 HPF [facility] WBC/HPF 5 0 - 5 HPF [facility] BACTERIA Few (A) Negative [facility] AMORPHOUS Many HPF [facility] SQ EPITH 5 HPF [facility] Specimen Urine - URINE, CLEAN CATCH Performing Organization Address [facility] Phone Number [facility] CLIA: [id number], [address] [place] [address] documented in this encounter Visit Diagnoses Diagnosis Flank pain - Primary Abdominal pain, unspecified site Kidney stones Calculus of kidney documented in this encounter Administered Medications Medication Order MAR Action Action Date Dose Rate Site dicyclomine (BENTYL) capsule 20 mg Given 11/25/2018 2:29 PM CDT 20 mg 20 mg, Oral, QID, First dose on 11/25/18 at 1600, Until Discontinued, Routine tamsulosin (FLOMAX) capsule 0.4 mg Given 11/25/2018 2:29 PM CDT 0.4 mg 0.4 mg, Oral, DAILY, First dose on 11/26/18 at 0900, Until Discontinued, Routine Medication Order MAR Action Action Date Dose Rate Site HYDROcodone-acetaminophen Given 11/25/2018 1:14 PM CDT 1 tablet (NORCO) 10-325 mg tablet 1 tablet 1 tablet, Oral, ONCE NOW, 1 dose, 11/25/18 at 1415, Routine ketorolac (TORADOL) injection 30 mg Given 11/25/2018 1:05 PM CDT 30 mg 30 mg, Slow IV Push, ONCE, 1 dose, 11/25/18 at 1315, Routine, juice bar team member approving Restricted medication: MEKA ALARCON III morpHINE injection 4 mg Given 11/25/2018 1:57 PM CDT 4 mg 4 mg, Slow IV Push, ONCE, 1 dose, 11/25/18 at 1500, STAT NaCl 0.9% (NS) bolus infusion New Bag 11/25/2018 1:06 PM CDT 1,000 mL 999 mL/hr 1,000 mL at 999 mL/hr, 1,000 mL, IV Infusion, ONCE, 1 dose, 11/25/18 at 1315, STAT ondansetron (ZOFRAN (PF)) injection 4 mg Given 11/25/2018 1:05 PM CDT 4 mg 4 mg, Slow IV Push, ONCE, 1 dose, 11/25/18 at 1415, JACQUI documented in this encounter Insurance Payer Benefit Plan / Subscriber ID Effective Dates Phone Address Type Group [facility] [id number] 2017-Present PPO/POS [employer] EMPL[employer]EE PLAN [phone] [id number] (Work) documented as of this encounter"
--- OUTSIDE RECORDS SUMMARY | 2019-03-02 21:09 | XMS REPORT | Summary of Care ---
:1980 Author Organization [facility] Address [address] [place] [address] Care Team Providers Name Role Phone Kevin Valadez MD Primary Care Provider Reason for Visit Reason Comments Notification Encounter Details Date Type Department Care Team Description 11/28/2018 Telephone [facility] Pediatric and Kevin Valadez III, MD Notification Adult Primary Care- [address] [place] [address] Dr. [address] [place] [address] , [place] [address] [facility] [phone] [place] [address] [phone] Allergies Active Allergy Reactions Severity Noted Date Comments Codeine Shortness of Breath 03/17/2017 Oxycodone-Acetaminophen Itching 03/17/2017 Promethazine Hcl Other - See comments 03/17/2017 convulsions Metoclopramide Hcl Unknown - See comments 03/17/2017 Convulsion documented as of this encounter (statuses as of 11/28/2018) Medications Medication Sig Dispensed Refills Start Date [...] as of this encounter (statuses as of 11/28/2018) Active Problems No known active problemsdocumented as [...] Treatment Date Type Specialty Care Team Description 11/29/2018 Ancillary Visit Physical Therapy Lacy Velasquez, PT [address] [place] [address] Health Maintenance Due Date Last Done Comments DTaP,Tdap,and Td Vaccines (1 - 1998 Tdap) PAP SMEAR 2000 INFLUENZA VACCINE 12/16/2018 PNEUMOCOCCAL 0-64 YEARS COMBINED Aged Out No longer eligible based on SERIES patient's age to complete this topic documented as of this encounter Results Not on filedocumented in this encounter Insurance Payer Benefit Plan / Subscriber ID Effective Dates Phone Address Type Group [facility] [place] - [facility] [place] [id number] 2017-Present PPO/POS [employer] EMPLOYEE PLAN documented as of this encounter
--- OUTSIDE RECORDS SUMMARY | 2019-03-02 21:09 | XMS REPORT | Summary of Care ---
:1980 Author Organization [facility] Address [address] [place] [address] Care Team Providers Name Role Phone Kevin Valadez MD Primary Care Provider Reason for Visit Reason Comments Follow-up (Routine) Status Reason Specialty Diagnoses / Referred By Referred To Procedures Contact Contact Authorized Physical Therapy Diagnoses Acute low back pain without sciatica, unspecified back pain laterality Kevin Valadez Adc Physical Procedures CONSULT/REFERRAL PHYSICAL THERAPY WI PHYSICAL THERAPY EVALUATION LOW COMPLEX 20 MINS WI PHYSICAL THERAPY EVALUATION MOD COMPLEX 30 MINS WI PHYSICAL THERAPY EVALUATION HIGH COMPLEX 45 MINS WI THERAPEUTIC EXERCISES III, MD Therapy WI NEUROMUSC REEDUCAT,1+ AREAS, EA 15 MIN WI MANUAL THER TECH,1+REGIONS,EA 15 MIN WI THERAPEUT ACTVITY DIRECT PT CONTACT EACH 15 MIN WI SELF-CARE/HOME MGMT TRAINING EACH [address] [place] [address] Professional [address] Phone: [address] [place] Fax: [phone] Encounter Details Date Type Department Care Team Description 12/04/2018 Ancillary Visit [facility] Rigoberto Diez MD [address] [place] [address] [place] [address] Low back pain radiating down leg (Primary Dx); Physical Therapy- Sherley Lofton, ACOUSTICS TEACHER [address] [place] [address] Back pain of lumbar region with sciatica [place] [facility] [address] [place] [address] Dr. Giraldo [address] [place] [address] Allergies Active Allergy Reactions Severity Noted Date Comments Codeine Shortness of Breath 03/17/2017 Oxycodone-Acetaminophen Itching 03/17/2017 Promethazine Hcl Other - See comments 03/17/2017 convulsions Metoclopramide Hcl Unknown - See comments 03/17/2017 Convulsion documented as of this encounter (statuses as of 12/04/2018) Medications Medication Sig Dispensed Refills Start Date [...] as of this encounter (statuses as of 12/04/2018) Active Problems No known active problemsdocumented as [...] in this encounter Progress Notes Sherley Lofton, ACOUSTICS TEACHER - 12/04/2018 11:00 AM CDT Physical Therapy Outpatient Progress Note 12/04/2018 11:00 AM Physical Therapy Note: S: Pt c/o 3/10 pain in low back this morning. No report of current radicular symptoms. She states she has kidney stones that she has been dealing with since last week. No pain after session. O: Therapeutic exercise per flow sheet. Diagnosis: LBP, SI Dysfunction Precautions: Falls POC DUE: 12/11/18 or visit Date: 11/07 11/13 11/20 11/22 12/04 Stretching: SKC 2x30"ea 2x30" 2x30"ea 3x30"ea 3x30"ea DKC Piriformis 2x30"ea 2x30" 2x30"ea 3x30"ea 3x30"ea HS stretch 2x30"ea 2x30"ea 2x30"ea 3x30"ea 3x30"ea Trunk Rotations Exercises: Pelvic Tilts 5"x5 5"x10 5"x10 5"x15 5"x15 Bridging x5 x5 x5 x10 x10 SI Mobs (prn) rotated rotated and fixed R ant rot aligned aligned Marching with Abd bracing x10ea x10ea Dying bug-alt UE/LE SLR's x10ea x10ea Prone on elbows Prone press ups Manual traction 3x1' 3x1' 3x1' 3x1' Lat Pull Downs Rows Ethiopian Ball: Seated on ball with tilt Alt UE Alt LE/Marching Alt UE/LE NuStep L2 x5' L2 x5' STM x4' Ultrasound 3MHz @ 1.0 continue x 6' 3MHz @ 1.0 continue x 6' 3MHz @ 1.0 continue x 6' 3MHz @ 1.0 continue x 6' MHP (prn) 10' 8' 8' 8' CP (prn) Provider Initials MW 1 Eval LO 2 MB 3 MB 4 MB 5 Home Exercise Program: Continue HEP as previously ordered. A: SI aligned today. Pt with good core activation with exercises. Used Biofreeze with US with good results. Pt tolerated treatment well. P: Continue per POC 2x4 weeks to increase strength and functional mobility. Will add/advance exercises as patient tolerates. Sherley Lofton PTA [place] Lic#[id number] Supervised by: Carmen Jason PT [facility] Services Dept. [phone] (phone) Total Timed Tx Codes in Minutes: 40 min Total Treatment Time in Minutes: 48 min documented in this encounter Plan of Treatment Date Type Specialty Care Team Description 12/06/2018 Ancillary Visit Physical Therapy Rigoberto Diez MD [address] [place] [phone] Sherley Lofton PTA [address] [place] [id number] Health Maintenance Due Date Last Done Comments [...] ID Effective Dates Phone Address Type Group [facility] - [id number] 2017-Present PPO/POS [employer] EMPLOYEE EMPLOYEE PLAN [phone] (Work) documented as of this encounter
--- OUTSIDE RECORDS SUMMARY | 2019-03-02 21:09 | XMS REPORT | Summary of Care ---
:1980 Author Organization [facility] Address [address] [place] [id number] Care Team Providers Name Role Phone Kevin Valadez MD Primary Care Provider Reason for Visit Reason Comments Notification Encounter Details Date Type Department Care Team Description 11/28/2018 Telephone [facility] Pediatric and Kevin Vaaldez III, MD Notification Adult Primary Care- [address] [place] [address] Dr. Cadena [address] [place] [address] , [place] [address] [facility] [phone] [place] [address] [phone] Allergies Active Allergy Reactions Severity Noted Date Comments Codeine Shortness of Breath 03/17/2017 Oxycodone-Acetaminophen Itching 03/17/2017 Promethazine Hcl Other - See comments 03/17/2017 convulsions Metoclopramide Hcl Unknown - See comments 03/17/2017 Convulsion documented as of this encounter (statuses as of 11/30/2018) Medications Medication Sig Dispensed Refills Start Date [...] as of this encounter (statuses as of 11/30/2018) Active Problems No known active problemsdocumented as [...] Treatment Date Type Specialty Care Team Description 12/04/2018 Ancillary Visit Physical Therapy Rigoberto Diez MD [address] [place] [address] Sherley Lofton, TOOL HONING MACHINE SET UP OPERATOR [address] [place] [address] 12/06/2018 Ancillary Visit Physical Therapy Rigoberto Diez MD [address] [place] [address] Sherley Lofton, TOOL HONING MACHINE SET UP OPERATOR [address] [place] [address] Health Maintenance Due Date Last Done Comments [...] ID Effective Dates Phone Address Type Group [facility] [id number] 2017-Present PPO/POS [employer] EMPLOYEE EMPLOYEE PLAN documented as of this encounter
[2019-03-02] MEDS ORDERED: MORPHINE 4 MG/ML SYR ONE ×2 (21:26→22:17)
[2019-03-02] MEDS ORDERED: NA CHLORIDE 0.9% 1,000 ML ONE (21:26)
[2019-03-02] MEDS ORDERED: ONDANSETRON 4 MG/2 ML VIAL ONE (21:26)
[2019-03-02 21:36] LABS: Urine Blood 1+ (NEG); Urine Glucose NEGATIVE (NEG); Urine Protein TRACE (NEG); Urine Specific Gravity 1.025 (1.005-1.030); Urine pH 6.5 (5.0-7.0)
[2019-03-02 21:47] LABS: Absolute Lymphocytes (CBC) 2.9 K/uL (0.7-4.9); Basophils % 0.8 % (0-1.3); Hematocrit 39.7 % (36.0-45.0); Lymphocytes % 34.4 % (15.3-44.8); MPV 7.9 fL (7.6-11.3); RBC Red Blood Cell Count 4.39 M/uL (3.86-4.86)
[2019-03-02 21:54] LABS: Urine Bacteria 20-50 /HPF (<20); Urine Culture Reflex Order REFLEXED
[2019-03-02 22:41] LABS: ALT/SGPT 27 U/L (12-78); AST/SGOT 13 U/L (15-37); Albumin 3.6 g/dL (3.4-5.0); Alkaline Phosphatase 51 U/L (45-117); BUN Blood Urea Nitrogen 13 mg/dL (7-18); Bicarbonate 26 mmol/L (21-32); Bilirubin Direct < 0.1 mg/dL (0-0.2); Bilirubin Total 0.2 mg/dL (0.2-1.0); Glucose Level 102 mg/dL (74-106); Lipase 137 U/L (73-393); Potassium 4.5 mmol/L (3.5-5.1); Protein, Total 6.9 g/dL (6.4-8.2); Sodium Level 141 mmol/L (136-145)
[2019-03-02] MEDS ORDERED: KETOROLAC 30 MG/ML INJ ONE (22:41)
[2019-03-02] MEDS ORDERED: TAMSULOSIN 0.4 MG SR CAP ONE (22:41)
--- NOTE | 2019-03-03 00:02 | ER ---
Nurse's Notes [facility] Name: Octavia Lo Age: 38 yrs Sex: Female : 1980 Arrival Date: 03/02/2019 Time: 21:06 Bed 8 Private MD: Diagnosis: Ureterolithiasis without obstruction Presentation: 03/02 21:17 Presenting complaint: Patient states: right flank pain X3 hours. pt c/o nausea. pt ak1 stated she took tramadol at 1900. pt with hx kidney stones. Transition of care: patient was not received from another setting of care. Onset of symptoms was March 02, 2019. Risk Assessment: Do you want to hurt yourself or someone else? Patient reports no desire to harm self or others. Initial Sepsis Screen: Does the patient meet any 2 criteria? No. Patient's initial sepsis screen is negative. Does the patient have a suspected source of infection? No. Patient's initial sepsis screen is negative. Care prior to arrival: None. 21:17 Method Of Arrival: Ambulatory ak1 21:17 Acuity: ONUR 3 ak1 Triage Assessment: 21:18 General: Appears in no apparent distress. uncomfortable, Behavior is calm, cooperative. ak1 Pain: Complains of pain in right mid back. EENT: No signs and/or symptoms were reported regarding the EENT system. Neuro: Level of Consciousness is awake, alert, obeys commands, Oriented to person, place, time, situation, Fitter Type Bar And Segment are equal bilaterally Moves all extremities. Full function Gait is steady, Speech is normal, Facial symmetry appears normal. Cardiovascular: No deficits noted. Respiratory: Airway is patent Respiratory effort is even, unlabored. GI: Abdomen is round non-distended, Bowel sounds present X 4 quads. Reports nausea. : Reports pain in right flank(s). Derm: No signs and/or symptoms reported regarding the dermatologic system. Musculoskeletal: No signs and/or symptoms reported regarding the musculoskeletal system. 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 - Social history:: Smoking status: Patient/guardian denies using tobacco. - Ebola Screening: : No symptoms or risks identified at this time. - Family history:: not pertinent. - Hospitalizations: : No recent hospitalization is reported. Screenin:20 Abuse screen: Denies threats or abuse. Denies injuries from another. Nutritional ak1 screening: No deficits noted. Tuberculosis screening: No symptoms or risk factors identified. Fall Risk None identified. Assessment: 21:21 GI: Abd is soft and non tender X 4 quads. ak1 21:21 Reassessment: Patient appears in no apparent distress at this time. see triage ak1 assessment. 22:09 Reassessment: pt c/o increased pain and nausea. Dr. Rivera notified, no new orders at ak1 this time. 23:26 General: Appears in no apparent distress. comfortable, Behavior is calm, cooperative. ak1 23:26 Reassessment: pt tolerating water. ak1 Vital Signs: 21:16 BP 171 / 92; Pulse 89; Resp 18; Temp 98.6; Pulse Ox 100% on R/A; Weight 104.33 kg (R); ak1 Height 5 ft. 6 in. (167.64 cm) (R); Pain 9/10; 22:50 BP 132 / 80; Pulse 82; Resp 18; Temp 98.4; Pulse Ox 98% on R/A; Pain 3/10; ak1 23:26 BP 111 / 66; Pulse 82; Resp 16; Temp 98.2; Pulse Ox 97% on R/A; Pain 2/10; ak1 21:16 Body Mass Index 37.12 (104.33 kg, 167.64 cm) ak1 ED Course: 21:06 Patient arrived in ED. es 21:16 Geetha Corral, RN is Primary Nurse. ak1 21:16 Zeyad Rivera MD is Attending Physician. rn 21:16 Arm band placed on Patient placed in an exam room, on a stretcher, on pulse oximetry, ak1 Patient notified of wait time. 21:18 Triage completed. ak1 21:20 Patient has correct armband on for positive identification. Bed in low position. Call ak1 light in reach. Side rails up X 1. pt refused to put on gown. Pulse ox on. NIBP on. 21:38 Initial lab(s) drawn, by me, sent to lab. Urine collected: clean catch specimen. ak1 Inserted saline lock: 20 gauge in right antecubital area, using aseptic technique. Blood collected. 21:45 CT completed. Patient tolerated procedure well. Patient moved back from CT. mw3 22:04 CT Stone Protocol In Process Unspecified. EDMS 22:51 No provider procedures requiring assistance completed. ak1 03/03 00:01 Thomas Luna MD is Referral Physician. rn 00:21 IV discontinued, intact, bleeding controlled, No redness/swelling at site. Pressure ak1 dressing applied. Administered Medications: 03/02 21:37 Drug: NS 0.9% 1000 ml Route: IV; Rate: 1000 ml; Site: right antecubital; ak1 22:39 Follow up: IV Status: Completed infusion ak1 22:49 Follow up: IV Status: Completed infusion; IV Intake: 1000ml ak1 21:37 Drug: Zofran 4 mg Route: IVP; Site: right antecubital; ak1 22:39 Follow up: Response: No adverse reaction ak1 21:37 Drug: morphine 4 mg Route: IVP; Site: right antecubital; ak1 22:39 Follow up: Response: No adverse reaction ak1 22:49 Drug: morphine 4 mg Route: IVP; Site: right antecubital; ak1 03/03 00:22 Follow up: Response: No adverse reaction ak1 03/02 22:49 Drug: TORadol - Ketorolac 15 mg Route: IVP; Site: right antecubital; ak1 03/03 00:22 Follow up: Response: No adverse reaction ak1 03/02 22:49 Drug: Flomax 0.4 mg Route: PO; ak1 03/03 00:22 Follow up: Response: No adverse reaction ak1 Intake: 03/02 22:49 IV: 1000ml; Total: 1000ml. ak1 Outcome: 03/03 00:01 Discharge ordered by . rn 00:21 Discharged to home ambulatory, with family. ak1 00:21 Condition: good 00:21 Discharge instructions given to patient, Instructed on discharge instructions, follow up and referral plans. no drinking with medication, no driving heavy equipment, medication usage, Demonstrated understanding of instructions, follow-up care, medications, Prescriptions given X 4. 00:25 Patient left the ED. ak1 Signatures: Dispatcher [employer] Kamini Gan Roman, MD MD rn Krenek, Amber, RN RN ak1 Lillian Cooper 3
--- NOTE | 2019-03-03 00:02 | EDPHYS ---
Physician Documentation [facility] Name: Octavia Lo Age: 38 yrs Sex: Female : 1980 Arrival Date: 03/02/2019 Time: 21:06 Bed 8 Private MD: ED Physician Zeyad Rivera HPI: 03/02 21:26 This 38 yrs old Female presents to ER via Ambulatory with complaints of rn Abdominal Pain. 21:26 The patient presents with abdominal pain right lower quadrant. Onset: The rn symptoms/episode began/occurred 2 hour(s) ago. The symptoms do not radiate. Associated signs and symptoms: Pertinent positives: dysuria, nausea, Pertinent negatives: anorexia, blood in stools, diarrhea, fever, shortness of breath, vaginal discharge, vomiting, vomiting blood. The symptoms are described as achy, crampy. Modifying factors: The symptoms are alleviated by nothing, the symptoms are aggravated by touching the area. Severity of pain: At its worst the pain was moderate in the emergency department the pain is unchanged. The patient has experienced similar episodes in the past. Reports right flank and abd pain, began suddenly 2 hours PATIENT CARE REPRESENTATIVE, reports multiple kidney stones in past, feels similar but not identical. No fever. NO vomiting/diarrhea. + mild dysuria. . 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 - Social history:: Smoking status: Patient/guardian denies using tobacco. - Ebola Screening: : No symptoms or risks identified at this time. - Family history:: not pertinent. - Hospitalizations: : No recent hospitalization is reported. ROS: 21:26 Constitutional: Negative for fever, chills, and weight loss, Eyes: Negative for injury, rn pain, redness, and discharge, Cardiovascular: Negative for chest pain, palpitations, and edema, Respiratory: Negative for shortness of breath, cough, wheezing, and pleuritic chest pain, Abdomen/GI: + right abd and flank pain Back: + right flank pain : Negative for injury, bleeding, discharge, and swelling, MS/Extremity: Negative for injury and deformity, Skin: Negative for injury, rash, and discoloration, Neuro: Negative for headache, weakness, numbness, tingling, and seizure. Exam: 21:26 Constitutional: This is a well developed, well nourished patient who is awake, alert, rn appears uncomfortable, holding abdomen/flank Head/Face: Normocephalic, atraumatic. ENT: MMM Cardiovascular: Regular rate and rhythm. No pulse deficits. Respiratory: No increased work of breathing, no retractions or nasal flaring. Abdomen/GI: soft, + mild RLQ tenderness, no rebound Skin: Warm, dry MS/ Extremity: Pulses equal, no cyanosis. Neurovascular intact. Full, normal range of motion. Equal circumference. Neuro: Awake and alert, GCS 15, oriented to person, place, time, and situation. Cranial nerves II-XII grossly intact. Motor strength 5/5 in all extremities. Sensory grossly intact. Gait normal. Vital Signs: 21:16 BP 171 / 92; Pulse 89; Resp 18; Temp 98.6; Pulse Ox 100% on R/A; Weight 104.33 kg (R); ak1 Height 5 ft. 6 in. (167.64 cm) (R); Pain 9/10; 22:50 BP 132 / 80; Pulse 82; Resp 18; Temp 98.4; Pulse Ox 98% on R/A; Pain 3/10; ak1 23:26 BP 111 / 66; Pulse 82; Resp 16; Temp 98.2; Pulse Ox 97% on R/A; Pain 2/10; ak1 21:16 Body Mass Index 37.12 (104.33 kg, 167.64 cm) ak1 MDM: 21:16 Patient medically screened. rn 23:59 Differential diagnosis: appendicitis, non-specific abd pain, Pyelonephritis, rn Ureterolithiasis, urinary tract infection. Data reviewed: vital signs, nurses notes, lab test result(s), radiologic studies, CT scan, and as a result, I will discharge patient. Counseling: I had a detailed discussion with the patient and/or guardian regarding: the historical points, exam findings, and any diagnostic results supporting the discharge/admit diagnosis, lab results, radiology results, the need for outpatient follow up, to return to the emergency department if symptoms worsen or persist or if there are any questions or concerns that arise at home. Response to treatment: the patient's symptoms have markedly improved after treatment, and as a result, I will discharge patient. Special discussion: I discussed with the patient/guardian in detail that at this point there is no indication for admission to the hospital. It is understood, however, that if the symptoms persist or worsen the patient needs to return immediately for re-evaluation. ED course: Markedly improved, comfortable, will dc home with prn pain meds/zofran/flomax. Recommend urology f/u. Also recommend f/u with DR[employer] REEL CUTTER for removal of IUD, given 9 years old and can cause complications.. 03/02 21:23 Order name: Urine Microscopic Only; Complete Time: 22:11 [facility] 03/02 21:24 Order name: Basic Metabolic Panel 03/02 21:24 Order name: CBC with Diff; Complete Time: 22:11 03/02 21:24 Order name: Creatinine for Radiology; Complete Time: 22:11 03/02 21:24 Order name: Hepatic Function 03/02 21:24 Order name: Lipase 03/02 21:24 Order name: CT Stone Protocol 03/02 21:25 Order name: Urine Dipstick--Ancillary (enter results); Complete Time: 22:11 [facility] 03/02 21:25 Order name: Urine --Ancillary (enter results); Complete Time: 22:11 [facility] 03/02 21:56 Order name: Urine Culture [facility] 03/02 21:24 Order name: IV Saline Lock; Complete Time: 21:38 03/02 21:24 Order name: Labs collected and sent; Complete Time: 21:38 03/02 21:24 Order name: Urine Test (obtain specimen); Complete Time: 21:25 03/02 21:24 Order name: Urine Dipstick-Ancillary (obtain specimen); Complete Time: 21:25 rn Administered Medications: 21:37 Drug: NS 0.9% 1000 ml Route: IV; Rate: 1000 ml; Site: right antecubital; ak1 22:39 Follow up: IV Status: Completed infusion ak1 22:49 Follow up: IV Status: Completed infusion; IV Intake: 1000ml ak1 21:37 Drug: Zofran 4 mg Route: IVP; Site: right antecubital; ak1 22:39 Follow up: Response: No adverse reaction ak1 21:37 Drug: morphine 4 mg Route: IVP; Site: right antecubital; ak1 22:39 Follow up: Response: No adverse reaction ak1 22:49 Drug: morphine 4 mg Route: IVP; Site: right antecubital; ak1 03/03 00:22 Follow up: Response: No adverse reaction ak1 03/02 22:49 Drug: TORadol - Ketorolac 15 mg Route: IVP; Site: right antecubital; ak1 03/03 00:22 Follow up: Response: No adverse reaction ak1 03/02 22:49 Drug: Flomax 0.4 mg Route: PO; ak1 03/03 00:22 Follow up: Response: No adverse reaction ak1 Disposition: 03/03/19 00:01 Discharged to Home. Impression: Ureterolithiasis without obstruction. - Condition is Stable. - Discharge Instructions: Kidney Stones, Dietary Guidelines to Help Prevent Kidney Stones. - Prescriptions for Zofran ODT 4 mg Oral tablet,disintegrating - place 1 tablet by TRANSLINGUAL route every 8 hours As needed; 20 tablet. Ibuprofen 800 mg Oral Tablet - take 1 tablet by ORAL route every 12 hours As needed take with food; 20 tablet. Flomax 0.4 mg Oral Capsule, Sust. Release 24 hr - take 1 capsule by ORAL route once daily As needed 1/2 hour following the same meal each day. Stop taking after you feel stone has passed, can cause lightheadedness and low blood pressure.; 5 capsule. Tramadol 50 mg Oral Tablet - take 1 tablet by ORAL route every 8 hours as needed; 15 tablet. - Medication Reconciliation Form, Thank You Letter, Antibiotic Education, Prescription Opioid Use, Work release form form. - Follow up: Thomas Luna; When: As needed; Reason: Recheck today's complaints, Re-evaluation by your physician. - Problem is new. - Symptoms have improved. Signatures: Dispatcher [employer] EDMS Rivera, Zeyad, MD MD rn Krenek, Geetha, RN RN ak1 Corrections: (The following items were deleted from the chart) 03/02 21:38 21:25 UA MICROSCOPIC+U.LAB.BRZ ordered. EDND EDMS 03/03 00:25 00:01 03/03/2019 00:01 Discharged to Home. Impression: Ureterolithiasis without ak1 obstruction. Condition is Stable. Discharge Instructions: Kidney Stones, Dietary Guidelines to Help Prevent Kidney Stones. Prescriptions for Zofran ODT 4 mg Oral tablet,disintegrating - place 1 tablet by TRANSLINGUAL route every 8 hours As needed; 20 tablet, Ibuprofen 800 mg Oral Tablet - take 1 tablet by ORAL route every 12 hours As needed take with food; 20 tablet, Flomax 0.4 mg Oral Capsule, Sust. Release 24 hr - take 1 capsule by ORAL route once daily As needed 1/2 hour following the same meal each day. Stop taking after you feel stone has passed, can cause lightheadedness and low blood pressure.; 5 capsule. and Forms are Work release form, Medication Reconciliation Form, Thank You Letter, Antibiotic Education, Prescription Opioid Use. Follow up: Thomas Luna; When: As needed; Reason: Recheck today's complaints, Re-evaluation by your physician. Problem is new. Symptoms have improved. rn
[2019-03-03 00:36] VITALS: BP 111/66; TEMP 98.2; O2SAT 97
--- NOTE | 2019-03-04 12:46 | RAD REPORT ---
EXAM DESCRIPTION: CT - Stone Protocol - 03/02/2019 10:33 pm CLINICAL HISTORY: 38 years Female right flank pain, hx of stones TECHNIQUE: Contiguous axial images obtained through the abdomen and pelvis without IV contrast. Co josefina and sagittal reformatted images provided. This CT exam was performed according to our departmental dose-optimization program, which includes on e or more of the following dose reduction techniques: automated exposure control, adjustment of the m A and/or kV according to patient size, and/or use of iterative reconstruction technique. COMPARISON: No prior exams provided for comparison. FINDINGS: There is mild right hydroureteronephrosis due to a 3 mm calculus at the right vesicoureter al junction. There are several nonobstructing intrarenal calculi bilaterally, measuring up to 3 mm on the right. No other ureteral or bladder calculi. No left-sided hydronephrosis or visualized focal re nal lesion. Intrauterine device is abnormally located in the lower uterine segment. No adnexal mass or free fluid in the pelvis. The liver is mildly enlarged without focal lesion on this noncontrast study. The lung bases, biliary tree, gallbladder, pancreas, spleen, adrenal glands, and urinary bladder are normal. There is no bowel inflammation, obstruction, free intraperitoneal air, or ascites. The appendix is normal. Chronic degenerative changes in the lower lumbar spine. No fracture. IMPRESSION: And mild right hydroureteronephrosis due to a 3 mm calculus at the right vesicoureteral junction. Bilateral nephrolithiasis. Intrauterine device is abnormally located in the lower uterine segment and should be removed. Mild hepatomegaly. Electronically signed by: Sneha Batista MD 03/02/2019 10:25 PM CONTESTANT COORDINATOR Due to temporary technical issues with the PACS/Fluency reporting system, reports are being signed by the in house radiologist as a courtesy to ensure prompt reporting. The interpreting radiologist is f ully responsible for the content of the report.
== END 2019-03-03 00:25 | disposition home or self-care (01) ==
LOC: ER 21:05
DX: N20.1 Calculus of ureter (principal); Z88.6 Allergy status to analgesic agent
CPT/HCPCS: 96361; 87088; 85025; 87086; 80048; 36415; 81025; 80076; 83690; 76377; 74176; 96375; 96374; 99284; J7030; J2405; 81003; 81015

== ENCOUNTER 2020-03-06 16:15 | Emergency (ER) | payer BC ==
--- OUTSIDE RECORDS SUMMARY | 2020-03-06 16:17 | XMS REPORT | Summary of Care ---
:1980 Author Organization [facility] Address [address] [place] [address] Care Team Providers Name Role Phone MD Raúl Primary Care Provider Reason for Visit Reason Comments Cough Congestion Sore Throat Chills Chest Pain chest tightness Headache ELEVATED BLOOD PRESSURE Encounter Details Date Type Department Care Team Description 01/01/2020 Office Visit [facility] Pediatric Naldo Olsen H ypertensive urgency (Primary Dx); and Adult Primary MD Essential hypertension; Care- [address] Non-seasonal allergic rhinitis due to ot her allergic trigger; [address] [place] [address] 205 Acute maxillary sinusitis, recurrence no t specified; [address], [address] [place] [address] URI with cough and congestion; [place], [place] [phone] Non compliance w medication regimen [id number] [phone] Allergies Active Allergy Reactions Severity Noted Date Comments Codeine Shortness of Breath 03/17/2017 Oxycodone-Acetaminophen Itching 03/17/2017 Promethazine Hcl Other - See comments 03/17/2017 con vulsions Metoclopramide Hcl Unknown - See comments 03/17/2017 Convulsion documented as of this encounter (statuses as of 01/01/2020) Medications Medication Sig Dispensed Refills Start Date End Date Status ibuprofen (IBU Take 800 mg 0 Act clarissa ORAL) by mouth. brompheniramine-p Take 10 mL by 120 mL 0 01/01/2020 Active seudoephedrine-DM mouth 4 (BROMFED DM) (four) times 2-30-10 mg/5 mL daily as syrupIndications: needed for URI with cough Cold symptoms and congestion or Cough. amoxicillin-clavu Take 1 tablet 20 tablet 0 01/01/2020 Active lanate by mouth 2 (AUGMENTIN) (two) times 875-125 mg per daily. tabletIndications : Non-seasonal allergic rhinitis due to other allergic trigger, Acute maxillary sinusitis, recurrence not specified, URI with cough and congestion Zinc 50 mg Take 1 tablet 30 tablet 1 01/01/2020 Acti ve TabIndications: by mouth URI with cough daily. and congestion vitamin C with Take 1 tablet 30 tablet 1 01/01/2020 Active jacob hips by mouth (VITAMIN C) 1,000 daily. mg tabletIndications : URI with cough and congestion Cholecalciferol, Take 1 tablet 30 tablet 1 01/01/2020 Active Vitamin D3, by mouth (VITAMIN D3) 125 daily. mcg (5,000 unit) tabletIndications : URI with cough and congestion lisinopriL-hydroc Take 1 tablet 90 tablet 1 01/01/2020 Active hlorothiazide by mouth 20-12.5 mg per daily. tabletIndications : Essential hypertension cetirizine Take 1 tablet 30 tablet 0 01/01/2020 Acti ve (ZYRTEC) 10 mg by mouth at tabletIndications bedtime as : URI with cough needed for and congestion Allergies. lisinopril 10 mg Take 1 tablet 90 tablet 3 10/16/2018 01/01/20 2 Discontinued tabletIndications by mouth 0 (A lternate : Acute daily. therapy) right-sided low back pain with right-sided sciatica benzonatate Take 1 21 capsule 0 08/28/2019 Discon tinued (TESSALON PERLES) capsule by 0 ( Alternate 100 mg mouth 3 therapy) capsuleIndication (three) times s: Acute URI, daily as Cough needed for Cough. 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 01/01/2020 Acute maxillary sinusitis, recurrence not specified URI with cough and congestion 01/01/2020 Hypertensive urgency 01/01/2020 Non compliance w medication regimen 01/01/2020 Essential hypertension 01/14/2019 Kidney stones 01/14/2019 Need for Tdap vaccination 01/14/2019 Influenza vaccination ordered 01/14/2019 Pap smear for cervical cancer screening 01/14/2019 Hepatomegaly 01/14/2019 documented as of this encounter (statuses as of 01/01/2020) Immunizations Name Administration Dates Next Due Influenza Virus Vaccine Quad .5 mL IM 6+ MO 01/14/2019 TDAP 01/14/2019 documented as of this encounter Social History Tobacco Use Types Packs/Day Years Used Date Never Smoker Smokeless Tobacco: Never Used Alcohol Use Drinks/Week oz/Week Comments No Sex Assigned at Date Recorded Not on file COVID-19 Exposure Response Date Recorded In the last month, have you been in contact with No / Unsure 01/01/2020 1:12 PM CDT someone who was confirmed or suspected to have Coronavirus / COVID-19? documented as of this encounter Last Filed Vital Signs Vital Sign Reading Time Taken Comments Blood Pressure 157/107 01/01/2020 1:33 PM CDT Pulse 80 01/01/2020 1:31 PM CDT Temperature 36.8 C (98.3 F) 01/01/2020 1:31 PM CDT Respiratory Rate 20 01/01/2020 1:31 PM CDT Oxygen Saturation 98% 01/01/2020 1:31 PM CDT Inhaled Oxygen Concentration - - Weight 102.9 kg (226 lb 14.4 oz) 01/01/2020 1:31 PM CDT Height 165.1 cm (5' 5") 01/01/2020 1:31 PM CDT Body Mass Index 37.76 01/01/2020 1:31 PM CDT documented in this encounter Patient Instructions Patient InstructionsEdNaldo chappell MD - 01/01/2020 1:20 PM CDT Patient Education Eating Heart-Healthy Food: Using the DASH Plan Eating for your heart doesnt have to be hard or boring. You just need to know how to make healthier choices. The DASH eating plan has been developed to help you do just that. DASH stands for DietaryApproaches to Stop Hypertension. It is a plan that has been proven to be healthier for your heart and to lower your risk for high blood pressure. It can also help lower your risk for cancer, heart disease, osteoporosis, and diabetes. Choosing from each food group Choose foods from each of the food groups below each day. Try to get the recommended number of servings for each food group. The serving numbers are based on a diet of 2,000 calories a day.Talk with your healthcare provider if youre not sure about your calorie needs. Along with getting the correct servings, the DASH plan also advises less than 2,300 mg of salt (sodium) per day. Lowering sodium intake to 1,500 mg per day lowers blood pressure even more. (There's about 2,300 mg of sodium in 1 teaspoon of salt.) Grains Servings: 6 to 8 a day A serving is: 1 slice bread 1 ounce dry cereal Half a cup cooked rice, pasta or cereal Best choices: Whole grains and any grains high in fiber. Vegetables Servings: 4 to 5 a day A serving is: 1 cup raw leafy vegetable Half a cup cut-up raw or cooked vegetable Half a cup vegetable juice Best choices: Fresh or frozen vegetables prepared without added salt or fat. Fruits Servings: 4 to 5 a day A serving is: 1 medium fruit One-quarter cup dried fruit Half a cup fresh, frozen, or canned fruit Half a cup of 100% fruit juices Best choices: A variety of fresh fruits of different colors. Whole fruits are abetter choice than fruit juices. Low-fat or fat-free dairy Servings: 2 to 3 a day A serving is: 1 cup milk 1 cup yogurt One and a half ounces cheese Best choices: Skim or 1% milk, low-fat or fat-free yogurt or buttermilk, and low-fat cheeses. Lean meats, poultry, fish Servings:6 or fewer a day A serving is: 1ounce cooked meats, poultry, or fish 1 egg Best choices: Leanpoultry and fish. Trim away visible fat. Broil, grill, roast, or boil instead offrying. Remove skin from poultry before eating. Limit how much red meat you eat. Nuts, seeds, beans Servings: 4 to 5 a week A serving is: One-third cup nuts (one and a half ounces) 2 tablespoons nut butter or seeds Half a cup cooked dry beans or legumes Best choices: Dry roasted nuts with no salt added, lentils, kidney beans, garbanzo beans, and whole ramesh beans. Fats and oils Servings: 2 to 3 a day A serving is: 1 teaspoon vegetable oil 1 teaspoon soft margarine 1 tablespoonmayonnaise 2 tablespoons salad dressing Best choices: Nut and vegetable oils(nontropical vegetable oils), such as olive and canola oil. Sweets Servings: 5 a week or fewer A serving is: 1 tablespoon sugar, maple syrup, or honey 1 tablespoon jam or jelly 1 half-ounce jelly beans (about 15) 1 cup lemonade Best choices: Dried fruit can be a satisfying sweet. Choose low-fat sweets. And watch your serving sizes! For more on the DASH eating plan, visit: www.nhlbi.nih.gov/health/health-topics/topics/dash Betty last reviewed this educational content on 10/15/201819993113-0205 The [employer]. [address] [place] [address]. All rights reserved. This information is not intended as a substitute for professional medical care. Always follow your healthcare professional's instructions. Patient Education Understanding Acute Rhinosinusitis Acute rhinosinusitis iswhen the lining of the inside of the nose and the sinuses becomes irritatedand swollen. It is also called sinusitis, or a sinus infection. Sinuses are air-filled spaces in the skull behind the face. They are kept moist and clean by a lining of mucosa. Things such as pollen, smoke, and chemical fumes can irritate the mucosa. It can then swell up. As a response to irritation, the mucosa makes more mucus and other fluids. Tiny hairlike cilia cover the mucosa. Cilia help carry mucus toward the opening of the sinus. Too much mucus may cause the cilia to stop working. This blocks the sinus opening. A buildup of fluid in the sinuses then causes pain and pressure. It can also cause bacteria to grow in the sinuses. What causes acute rhinosinusitis? A sinus infection is most often caused by a virus. You are more likely to get one after having a cold or the flu. In some cases, a sinus infection can be caused by bacteria. You are at higher risk for a sinus infection if you: Are older in age Have structural problems with your sinuses Smoke or are exposed to secondhand smoke Are exposed to changes in pressure, such as from flying a lot or deep sea diving Have asthma or allergies Have a weak immune system Have dental disease Symptoms of acute rhinosinusitis Symptoms of acute rhinosinusitis often last around 7 to 10 days. If you have a bacterial infection, they may last longer. They may also get better but then worsen. You may have: Facepain or pressure under the eyes and around the nose Headache Fluid draining in the back of the throat (postnasal drip) Congestion Drainage that is thick and colored (often green), instead of clear Cough Problems with your sense of smell Ear pain or hearing problems Fever Tooth pain Fatigue Diagnosing acute rhinosinusitis Yourhealthcare provider will ask about your symptoms and past health.He or she will look at yourears, nose, throat, and sinuses. Imaging tests, such as X- rays, are often not needed. It can be hard to figure out if a sinus infection is caused by a virus or bacterium. A bacterial infection tends to last longer. Symptoms may also get better but then worsen. Your healthcare provider may take asample of mucus from your nose to check for bacteria. Treating acute rhinosinusitis Most sinus infections will go away within 10 days. Your body will fight off the virus. If your symptoms seem to get better but then worsen, you may have a bacterial infection instead. Your healthcare provider will then give you antibiotics. Take this medicine until it is gone, even if you feel better. To help ease your symptoms, your healthcare provider may advise: Oslh-lrt-pckygyx pain relievers. Medicines such as acetaminophen or ibuprofen can ease sinus pain. They may also lower a fever. Nasal washes. Washing your nasal passages with salt water may ease pain and pressure. It can rinse out mucous and other irritants from your sinuses. Your healthcare provider can show you how to do it. Nasal steroid spray. This prescription medicine can reduce inflammation in your sinuses. Other medicines. Decongestants, antihistamines, and other nasal sprays may give short-term relief. They may help with congestion. Talk with your healthcare provider before taking these medicines. Preventing acute rhinosinusitis You can help prevent a sinus infection with these steps: Wash your hands well and often. Stay away from people who have a cold or upper respiratory infection. Don't smoke. And stay away from secondhand smoke. Use a humidifier at home. Make sure you are up-to-date on your vaccines, such as the flu shot. When to call your healthcare provider Call your healthcare provider right away if you have any of these: Fever of 100.4F (38C) or higher, or as directed by your healthcare provider Pain that gets worse Symptoms that dont get better, or get worse New symptoms [employer] last reviewed this educational content on 09/15/201819999672-0453 The [employer]. [address] [place] [address], [place] [address]. All rights reserved. This information is not intended as a substitute for professional medical care. Always follow your healthcare professional's instructions. documented in this encounter Progress Notes Naldo Olsen MD - 01/01/2020 1:20 PM CDT Chief complaint: Cough, Congestion, Sore Throat, Chills, Chest Pain (chest tightness), Headache, andELEVATED BLOOD PRESSURE HPI: Octavia Lo is a 38 year old female w/ PMHx of low back pain and kidney stones, HTN non-compliant with therapy, allergic rhinitis and as noted below, presenting to the clinic with c/o worsening Sx URI, c/o weakness, fatigue, chills w/o fever, congestions, sore throat and mild loose stools. Shlomo brady tested negative for COVID-18 2 days ago, notes her son had the same Sx, was [facility], and also tested negative for COVID-19. 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 Patient has HTN, BP elevated on arrival 156/105, rechecked 157/107, currently non-compliant on lisinopril 10mg, has only taken medication once since it was prescribed. Patient reports intermittent vision changes, RUSHING, CP and palpitations, currently reports tightness in her chest. PAST MEDICAL HISTORY: Past Medical History: Diagnosis Date Low back pain, bilateral kidney stones Constitutional: Doing well. No in acute distress Eyes: negative Ears: negative Nose/Sinuses: negative Mouth/Throat: negative Cardiovascular: negative Respiratory: negative Gastrointestinal: negative Genitourinary: +history of bilateral renal stones Musculoskeletal: + history of back pain Integumentary: negative Neuro: negative Psych: negative Endocrine: negative Hem/Lymph: Negative Allergy/Immunology: Allergies Allergen Reactions Codeine Shortness of Breath Percocet [Oxycodone-Acetaminophen] Itching Phenergan [Promethazine Hcl] Other - See comments convulsions Reglan [Metoclopramide Hcl] Unknown - See comments Convulsion MEDS: Outpatient Medications Marked as Taking for the 01/01/20 encounter (Office Visit) with Naldo Olsen MD Medication Sig Dispense Refill amoxicillin-clavulanate (AUGMENTIN) 875-125 mg per tablet Take 1 tablet by mouth 2 (two) times daily. 20 tablet 0 xwfulvjgddguves-kexsuqdnrwtmuym-UP (BROMFED DM) 2-30-10 mg/5 mL syrup Take 10 mL by mouth 4 (four) times daily as needed for Cold symptoms or Cough. 120 mL 0 cetirizine (ZYRTEC) 10 mg tablet Take 1 tablet by mouth at bedtime as needed for Allergies. 30 tablet 0 Cholecalciferol, Vitamin D3, (VITAMIN D3) 125 mcg (5,000 unit) tablet Take 1 tablet by mouth daily. 30 tablet 1 lisinopriL-hydrochlorothiazide 20-12.5 mg per tablet Take 1 tablet by mouth daily. 90 tablet 1 vitamin C with jacob hips (VITAMIN C) 1,000 mg tablet Take 1 tablet by mouth daily. 30 tablet 1 Zinc 50 mg Tab Take 1 tablet by mouth daily. 30 tablet 1 PHYSICAL EXAM: Blood pressure (!) 157/107, pulse 80, temperature 36.8 C (98.3 F), temperature source Temporal Artery, resp. rate 20, height 5' 5" (1.651 m), weight 226 lb 14.4 oz (102.9 kg), SpO2 98 %. Appearance: comfortable, no distress Eye: normal external eye, corneas clear, conjunctiva and sclera normal and pupils equal, round, reactive to light Ear: normal TM's bilaterally, normal auditory canals and external ears non-tender Nose: nares normal, septum midline, mucosa pink and moist with no drainage or sinus tenderness Oropharynx: moist mucus membranes, no erythema or tonsillar enlargement Neck: neck supple with no rigidity, +enlarged thyroid Cardiovascular: Hypertensive Urgency with vision changes, RUSHING and chest tightness Respiratory: CTA-B Abdomen: Soft. +BS, no NTTP Musculoskeletal: no clubbing, cyanosis or edema, peripheral pulses 2+ in all extremities Neurologic: normal gait and station Psychiatric: alert, oriented, with appropriate affect Skin: skin color, texture and turgor are normal; no bruising, rashes or lesions noted LABS: Reviewed Imaging CT Abdomen Pelvis WO Contrast: 11/25/2018 - Lower Thorax: Focal groundglass attenuation is partially visualized in the inferior right middle lobe, likely due to atelectasis. The lung bases are otherwise clear. The heart is not completely imaged. - Liver: Hepatomegaly. Mildly nodular liver contours. No biliary ductal dilation. - Gallbladder: normally distended. - Spleen: No splenomegaly. - Pancreas: No ductal dilation or masses. - Adrenal glands: No adrenal nodules. - Kidneys: Several nonobstructing stones in the right kidney measure up to 4 mm. A 3 mm stone in the left distal ureter just before the UVJ resulting in mild hydroureter and hydronephrosis. A couple of nonobstructing stones in the left kidney measure up to 3 mm. - Peritoneum and retroperitoneum: No free air or fluid. - Lymph Nodes: No lymphadenopathy. - Gi Tract: No dilation or wall thickening. Normal appendix. - Pelvis/ Bladder: The bladder is nondistended. Normal uterus. An IUD appears low lying within the lower uterine segment. The ovaries are normal in size. - Vessels: Unremarkable. - Bones and Soft Tissues: No suspicious lytic or sclerotic bony lesions. XR Sacroiliac Joints 3+ VW: 11/16/2018 - The sacroiliac joints siobhan normal in appearance. An IUD lies in the pelvis. XR Lumbar Spine 2 VW 11/16/2018 - There are 5 lumbar type vertebra. There is exaggerated lumbar lordosis with preserved sagittal alignment. The vertebral body heights are preserved. No dynamic instability seen. - Multilevel degenerative changes are noted in the form of disc space narrowing, anterior osteophytes and facet arthropathy, which are most conspicuous at L5-S1, where they are mild. MR Lumbar Spine WO Contrast 10/24/2018 - The vertebral bodies are normal in height and in normal alignment. The conus terminates at the level of T12. The cauda equina nerve roots are unremarkable. - The background marrow signal is unremarkable. Disc desiccation is noted at L3- L4 and L5-S1 with mild associated disc height loss at the latter level. - L1-L2: No significant spinal canal stenosis or neural foraminal narrowing - L2-L3: No significant spinal canal stenosis or neural foraminal narrowing - L3-L4: Mild facet arthropathy results in no significant spinal canal stenosis or neural foraminal narrowing - L4-L5: Moderate facet arthropathy and prominent joint effusions are noted of the cyst level but result in no significant spinal canal stenosis or neural foraminal narrowing - L5-S1: A shallow posterior disc bulge results in no significant spinal canal stenosis or neural foraminal narrowing. An annular fissure is present at this level. ASSESSMENT/PLAN: Hypertensive urgency - BP elevated at arrival. Patient is non-compliant with therapy. Encouraged to adopt DASH Plan, currently reports some tightness in chest, notes intermittent vision changes, RUSHING and palpitations at home - lisinopriL-hydrochlorothiazide 20-12.5 mg per tablet; Take 1 tablet by mouth daily. Dispense: 90 tablet; Refill: 1 URI with cough and congestion - Possible acute maxillary sinusitis with allergic rhinosinusitis, COVID-19 was negative 2 days ago.CXR reviewed, no evidence of COVID-19 pneumonia - XR CHEST 2 VW COVID; Future - foiswlqasbsvzln-ollpiugtjdbhici-KA (BROMFED DM) 2-30-10 mg/5 mL syrup; Take 10 mL by mouth 4 (four) times daily as needed for Cold symptoms or Cough. Dispense: 120 mL; Refill: 0 - amoxicillin-clavulanate (AUGMENTIN) 875-125 mg per tablet; Take 1 tablet by mouth 2 (two) times daily. Dispense: 20 tablet; Refill: 0 - Zinc 50 mg Tab; Take 1 tablet by mouth daily. Dispense: 30 tablet; Refill: 1 - vitamin C with jacob hips (VITAMIN C) 1,000 mg tablet; Take 1 tablet by mouth daily. Dispense: 30 tablet; Refill: 1 - Cholecalciferol, Vitamin D3, (VITAMIN D3) 125 mcg (5,000 unit) tablet; Take 1 tablet by mouth daily. Dispense: 30 tablet; Refill: 1 - cetirizine (ZYRTEC) 10 mg tablet; Take 1 tablet by mouth at bedtime as needed for Allergies. Dispense: 30 tablet; Refill: 0 Pap smear for cervical cancer screening - Ordered - CONVENTIONAL PAP SMEAR - CONSULT/REFERRAL [facility]CE / PREVENTION: Per orders including patient education - Weight Management: BMI 38.36kg/m - Flu vaccination: Due - TDAP Ordered - Pap Smear: Ordered - Weight loss, medication compliance and lifestyle modification encouraged Preventive Care: Medication reconciliation, patient education and anticipatory guidance completed. All questions and concerns addressed. AVS given, handout provided. Return in about 2 weeks (around 01/15/2020), or if symptoms worsen or fail to improve. Naldo Olsen MD, MPH, AAHIVS [employer], Department of Family Medicine [facility] 01/01/2020 2:15 PM Disposition: ER (Hypertensive Urgency) documented in this encounter Plan of Treatment Date Type Specialty Care Team Description 01/15/2020 Office Visit Family Medicine Naldo Olsen MD [address] [place] [address] Dr Domínguez [address] [place], [place] [address] 15 [phone] Health Maintenance Due Date Last Done Comments PAP SMEAR 2000 Breast Cancer Screening 2019 (MAMMOGRAM) INFLUENZA VACCINE (#1) 2019 01/14/2019 Depression Screening 08/27/2020 08/28/2019 DTaP,Tdap,and Td Vaccines (2 - Td) 01/14/2029 01/14/2019 PNEUMOCOCCAL 0-64 YEARS COMBINED Aged Out No longer eligible based on SERIES patient's age to complete this topic documented as of this encounter Results Not on filedocumented in this encounter Visit Diagnoses Diagnosis Hypertensive urgency - Primary Unspecified essential hypertension Essential hypertension Unspecified essential hypertension Non-seasonal allergic rhinitis due to ot her allergic trigger Acute maxillary sinusitis, recurrence no t specified URI with cough and congestion Non compliance w medication regimen Personal history of noncompliance with m edical treatment, presenting hazards to health documented in this encounter Insurance Payer Benefit Plan / Subscriber ID Effective Dates Phone Addre ss Type Group [facility] [id number] 2017-Present PPO/POS [facility] EM[employer]OYEE EMPLOYEE PLAN [phone] [id number] (Work) documented as of this encounter
--- OUTSIDE RECORDS SUMMARY | 2020-03-06 16:17 | XMS REPORT | Summary of Care ---
:1980 Author Organization [facility] Address [address] [place] [address] Care Team Providers Name Role Phone MD Raúl Primary Care Provider Encounter Details Date Type Department Care Team Description 12/30/2019 Letter (Out) [facility] Family Jalen Olsen MD Medicine - [address] [facility] [address] romo Sang [address] [place] [address] [place] [address] [phone] Allergies Active Allergy Reactions Severity Noted Date Comments Codeine Shortness of Breath 03/17/2017 Oxycodone-Acetaminophen Itching 03/17/2017 Promethazine Hcl Other - See comments 03/17/2017 con vulsions Metoclopramide Hcl Unknown - See comments 03/17/2017 Convulsion documented as of this encounter (statuses as of 12/30/2019) Medications Medication Sig Dispensed Refills Start Date End Date Status ibuprofen (IBU ORAL) Take 800 mg by 0 Active mouth. lisinopril 10 mg Take 1 tablet by 90 tablet 3 10/16/2018 Active tabletIndications: mouth daily. Acute right-sided low back pain with right-sided sciatica benzonatate (TESSALON Take 1 capsule by 21 capsule 0 0 Active PERLES) 100 mg mouth 3 (three) capsuleIndications: times daily as Acute URI, Cough needed for Cough. documented as of this encounter (statuses as of 12/30/2019) Active Problems Problem Noted Date Essential hypertension 01/14/2019 Kidney stones 01/14/2019 Need for Tdap vaccination 01/14/2019 Influenza vaccination ordered 01/14/2019 Pap smear for cervical cancer screening 01/14/2019 Hepatomegaly 01/14/2019 documented as of this encounter (statuses as of 12/30/2019) Immunizations Name Administration Dates Next Due Influenza [...] month, have you been in contact with Yes 12/30/2019 10:19 AM CDT someone who was confirmed or suspected to have Coronavirus / COVID-19? documented as of this encounter Last Filed Vital Signs Not on filedocumented in this encounter Plan of Treatment Date Type Specialty Care Team Description 12/30/2019 Laboratory Only Family Medicine Melanie Gil, VEE [address] [place] [phone] Suspected Covid-19 Lab, Adc Fam Pob I Virus Infection (Primary Dx) Health Maintenance Due Date Last Done Comments PAP SMEAR 2000 Breast Cancer Screening 2019 (MAMMOGRAM) INFLUENZA VACCINE (#1) 2019 01/14/2019 Depression Screening 08/27/2020 08/28/2019 DTaP,Tdap,and Td Vaccines (2 - Td) 01/14/2029 01/14/2019 PNEUMOCOCCAL 0-64 YEARS COMBINED Aged Out No longer eligible based on SERIES patient's age to complete this topic documented as of this encounter Results Not on filedocumented in this encounter Additional Health Concerns Infection Onset Date Last Indicated Resolved Time COVID-19 Rule Out 12/30/2019 12/30/2019 documented as of this encounter Insurance Payer Benefit Plan / Subscriber ID Effective Dates Phone Addre ss Type Group [facility] [id number] 2017-Present PPO/POS [employer] EMPLOYEE EMPLOYEE PLAN documented as of this encounter
--- OUTSIDE RECORDS SUMMARY | 2020-03-06 16:17 | XMS REPORT | Summary of Care ---
:1980 Author Organization [facility] Address [address] [place] [address] Care Team Providers Name Role Phone MD Raúl Primary Care Provider Reason for Visit Reason Comments Cough Congestion Sore Throat Chills Chest Pain chest tightness Headache ELEVATED BLOOD PRESSURE Encounter Details Date Type Department Care Team Description 01/01/2020 Office Visit [facility] Pediatric Naldo Olsen H ypertensive urgency (Primary Dx); and Adult Primary MD Essential hypertension; Care- [address] Non-seasonal allergic rhinitis due to ot her allergic trigger; [address] [place] [address] Acute maxillary sinusitis, recurrence no t specified; Drive, [address] [place] [address] URI with cough and congestion; [place], [place] [phone] Non compliance w medication regimen [id number] [phone] Allergies Active Allergy Reactions Severity Noted Date [...] 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 [address] [place] [address]. All rights reserved. This information is not [...] your symptoms, your healthcare provider may advise: Mkwg-zou-ehdhhvt pain relievers. Medicines such as acetaminophen or [...] get better, or get worse New symptoms [email or web address] last reviewed this educational content on 09/15/201819996161-4230 [employer] [place] [address], [place] [address]. All rights reserved. This information is not [...] negative for COVID-19. 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 Patient [...] 2 (two) times daily. 20 tablet 0 ueyjqdbloeixxaj-fpdhcwmnyzalfzq-BO (BROMFED DM) 2-30-10 mg/5 mL syrup Take [...] XR CHEST 2 VW COVID; Future - vtmyjzfvlneivfm-syetiwsmabjenfn-FU (BROMFED DM) 2-30-10 mg/5 mL syrup; Take [...] Ordered - CONVENTIONAL PAP SMEAR - CONSULT/REFERRAL BACKWINDER HEALTH MAINTENANCE / PREVENTION: Per orders including [...] improve. Naldo Olsen MD, MPH, AAHIVS Clinical Cleater, Department of Family Medicine [facility] Primary & Specialty Care - ADC 01/01/2020 2:15 PM Disposition: ER (Hypertensive Urgency) documented in this encounter Plan of Treatment Date Type Specialty Care Team Description 01/15/2020 Office Visit Family Medicine Naldo Olsen MD [address] [place] [address] Dr Domínguez [address] [place], [place] [address] 15 [phone] Health Maintenance Due Date Last Done Comments [...] Effective Dates Phone Addre ss Type Group [facility] [id number] 2017-Present PPO/POS [employer] EMPLOYEE EMPLOYEE PLAN [phone] [id number] (Work) documented as of this encounter
--- OUTSIDE RECORDS SUMMARY | 2020-03-06 16:17 | XMS REPORT | Continuity of Care Document ---
:1980 Author Organization [facility] t Address [address] [place] [address] Care Team Providers Name Role Phone Raúl HOPPER Attending Clinician Problems This patient has no known problems. Allergies, Adverse Reactions, Alerts This patient has no known allergies or adverse reactions. Medications This patient has no known medications. Procedures This patient has no known procedures. Encounters Start End Encounter Admission Attending Care Care Encounter Source Date/Time Date/Time Type Type Clinicians Facility Department ID 2020-01-28 2020-01-28 Refill [facility] [id number] 00:00:00 00:00:00 Naldo Cadena [id number] Anna [id number] Breanna [phone] nal 044 Building 2020-01-21 2020-01-21 Office [facility] [id number] 15:55:21 16:32:24 Visit Naldo Cadena [id number] Anna [id number] Breanna [phone] [address] Results This patient has no known results.
--- OUTSIDE RECORDS SUMMARY | 2020-03-06 16:17 | XMS REPORT | Summary of Care ---
:1980 Author Organization [facility] Address [address] [place] [address] Care Team Providers Name Role Phone MD Raúl Primary Care Provider Reason for Visit Reason Comments Exposure Encounter Details Date Type Department Care Team Description 12/30/2019 Laboratory Only [facility] Family Ileana Gil, HEAD WAITER [address] [place] [phone] Suspected Covid-19 Medicine - [facility], Adc Fam Pob I Virus Infection [address] [place] [address] (Primary D x) [place] [address] Allergies Active Allergy Reactions Severity Noted Date [...] Signs Not on filedocumented in this encounter Nursing Notes Ester Weeks MA - 12/30/2019 11:40 AM CDTJejesejarvis Lo is a 39 year old female here for COVID Screening with a Nasopharyngeal Swab All droplet and contact precautions taken with appropriate PPE worn while interacting with patient. ? Goggles ? N95 Mask ? Gloves ? Gown RR 14 Pulse 66 Ox 98% Patient educated on plan of care for visit, swabbing technique, risks and benefits of test and length of time to receive results. Verbal consent obtained to perform test. CDC Fact Sheet for Patients nCoV Diagnostic Panel dated 06/30/2019 and Factsheet What to Do if Sick with COVID 19 06/10/19 provided. Bilate nares swabbed during COVID19 nasopharyngeal swab. Patient swabbed per appropriate nasopharyngeal technique, and patient tolerated well. Patient was discharged from the testing clinic in stable condition. ESTER WEEKS MA 12/30/2019 10:21 AM documented in this encounter Plan of Treatment Name Type Priority Associated Diagnoses Order S chedule COVID-19 (PCR MOLECULAR LAB Routine Suspected Covid-1 9 Virus Expected: 12/30/2019, TESTING) Infection Expires: 2020 Health Maintenance Due Date Last Done Comments [...] filedocumented in this encounter Visit Diagnoses Diagnosis Suspected Covid-19 Virus Infection - Veronica randy documented in this encounter Additional Health Concerns Infection Onset Date Last Indicated Resolved Time COVID-19 Rule Out 12/30/2019 12/30/2019 documented as of this encounter Insurance Payer Benefit Plan / Subscriber ID Effective Dates Phone Addre ss Type Group [facility] - [facility] [id number] 2017-Present PPO/POS [facility] EMPLOYEE EMPLOYEE PLAN [phone] [id number] (Work) documented as of this encounter
--- OUTSIDE RECORDS SUMMARY | 2020-03-06 16:18 | XMS REPORT | Summary of Care ---
:1980 Author Organization [facility] Address [address] [place] [address] Care Team Providers Name Role Phone MD Raúl Primary Care Provider Reason for Referral (Routine) Status Reason Specialty Diagnoses / Procedures Referred By C ontact Referred To Contact Closed Psychiatry Diagnoses Anxiety Naldo Olsen Web-Psychiatry Procedures CONSULT/REFERRAL PSYCHOLOGY MD Staff [address] [place] [address] Phone: [phone] Fax: Radiology Services (Routine) Status Reason Specialty Diagnoses / Referred By Referred To Procedures Contact Contact New Request Diagnostic Diagnoses Encounter for other screening for malignant neoplasm of breast Deneen Olsen Procedures BI SCREENING MAMMOGRAM BILATERAL MD Naldo [address] [place] [address] Dr Domínguez [address] [place] [address] Reason for Visit Reason Comments Follow-up Hypertension GERD Anxiety Hospital F/U Medication Problem Encounter Details Date Type Department Care Team Description 01/21/[address] [facility] Naldo Olsen Essential hypertension (Primary Dx); Pediatric and Adult Gastroesophageal reflux disease without esophagitis; Primary Care- [address] [place] [address] Screening f or malignant neoplasm of the cervix; Tammi Govea Encounter for other screening for malign ant neoplasm of breast; [address] [facility] [address]; [address] [place], [place] [phone] Allergies Active Allergy Reactions Severity Noted Date Comments Codeine Shortness of Breath 03/17/2017 Oxycodone-Acetaminophen Itching 03/17/2017 Promethazine Hcl Other - See comments 03/17/2017 con vulsions Metoclopramide Hcl Unknown - See comments 03/17/2017 Convulsion documented as of this encounter (statuses as of 01/23/2020) Medications Medication Sig Dispensed Refills Start End Date Status Date ibuprofen (IBU ORAL) Take 800 mg 0 Active by mouth. brompheniramine-pseud Take 10 mL by 120 mL 0 Active oephedrine-DM mouth 4 0 (BROMFED DM) 2-30-10 (four) times mg/5 mL daily as syrupIndications: URI needed for with cough and Cold symptoms congestion or Cough. amoxicillin-clavulana Take 1 tablet 20 tablet 0 Active te (AUGMENTIN) by mouth 2 0 875-125 mg per (two) times tabletIndications: daily. Non-seasonal allergic rhinitis due to other allergic trigger, Acute maxillary sinusitis, recurrence not specified, URI with cough and congestion Zinc 50 mg Take 1 tablet 30 tablet 1 Activ e TabIndications: URI by mouth 0 with cough and daily. congestion vitamin C with jacob Take 1 tablet 30 tablet 1 Active hips (VITAMIN C) by mouth 0 1,000 mg daily. tabletIndications: URI with cough and congestion Cholecalciferol, Take 1 tablet 30 tablet 1 Active Vitamin D3, (VITAMIN by mouth 0 D3) 125 mcg (5,000 daily. unit) tabletIndications: URI with cough and congestion cetirizine (ZYRTEC) Take 1 tablet 30 tablet 0 Active 10 mg by mouth at 0 tabletIndications: bedtime as URI with cough and needed for congestion Allergies. losartan-hydrochlorot Take 1 tablet 90 tablet 1 Active hiazide 50-12.5 mg by mouth 0 per daily. tabletIndications: Essential hypertension pantoprazole 20 mg EC Take 1 tablet 90 tablet 0 Active tabletIndications: by mouth 0 Gastroesophageal daily. reflux disease without esophagitis hydrOXYzine 50 mg Take 1 tablet 60 tablet 1 Active tabletIndications: by mouth 0 Anxiety every 8 (eight) hours as needed for Anxiety. lisinopriL-hydrochlor Take 1 tablet 90 tablet 1 10/04 Discontinued othiazide 20-12.5 mg by mouth 0 20 (Alternate per daily. 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 01/01/2020 Acute maxillary sinusitis, recurrence not specified URI with cough and congestion 01/01/2020 Hypertensive urgency 01/01/2020 Non compliance w medication regimen 01/01/2020 Essential hypertension 01/14/2019 Kidney stones 01/14/2019 Need for Tdap vaccination 01/14/2019 Influenza vaccination ordered 01/14/2019 Encounter for other screening for malignant neoplasm o f breast 01/14/2019 Hepatomegaly 01/14/2019 documented as of this encounter (statuses as of 01/23/2020) Immunizations Name Administration Dates Next Due Influenza [...] have you been in contact with Yes 01/21/2020 3:53 PM CDT someone who was confirmed or suspected to have Coronavirus / COVID-19? documented as of this encounter Last Filed Vital Signs Vital Sign Reading Time Taken Comments Blood Pressure 136/92 01/21/2020 4:04 PM CDT Pulse 80 01/21/2020 4:04 PM CDT Temperature 36.7 C (98 F) 01/21/2020 4:04 PM CDT Respiratory Rate 20 01/21/2020 4:04 PM CDT Oxygen Saturation 99% 01/21/2020 4:04 PM CDT Inhaled Oxygen Concentration - - Weight 104.6 kg (230 lb 9.6 oz) 01/21/2020 4:04 PM CDT Height 165.1 cm (5' 5") 01/21/2020 4:04 PM CDT Body Mass Index 38.37 01/21/2020 4:04 PM CDT documented in this encounter Progress Notes Naldo Olsen MD - 01/21/2020 4:00 PM CDT Chief complaint: Follow-up, Hypertension, GERD, Anxiety, Hospital F/U, and Medication Problem HPI: Octavia Lo is a 39 year old female w/ PMHx of low back pain and kidney stones, HTN non-compliant with therapy, allergic rhinitis and as noted below, presenting for follow-up s/p ER for hypertensive urgency. Patient is improved on arrival, though still elevated. Patient was started on Lisinopril - HCTZ 20 -12.5mg qDay. Patient reports she has been having residual cough since initiation of therapy, otherwise denies RUSHING, vision changes, CP, palpitations or SOB. Patient reports being anxious, partly due to the current pandemic, denies current depression, SI/HI/VH/AH. PAST MEDICAL HISTORY: Past Medical History: Diagnosis [...] Outpatient Medications Marked as Taking for the 01/21/20 encounter (Office Visit) with Naldo Olsen MD Medication Sig Dispense Refill hydrOXYzine 50 mg tablet Take 1 tablet by mouth every 8 (eight) hours as needed for Anxiety. 60 tablet 1 losartan-hydrochlorothiazide 50-12.5 mg per tablet Take 1 tablet by mouth daily. 90 tablet 1 pantoprazole 20 mg EC tablet Take 1 tablet by mouth daily. 90 tablet 0 amoxicillin-clavulanate (AUGMENTIN) 875-125 mg per tablet Take 1 tablet by mouth 2 (two) times daily. 20 tablet 0 maxwqsnpqrbelcm-xunosvhfvfjsgci-JN (BROMFED DM) 2-30-10 mg/5 mL syrup Take 10 mL by mouth 4 (four) times daily as needed for Cold symptoms or Cough. 120 mL 0 cetirizine (ZYRTEC) 10 mg tablet Take 1 tablet by mouth at bedtime as needed for Allergies. 30 tablet 0 Cholecalciferol, Vitamin D3, (VITAMIN D3) 125 mcg (5,000 unit) tablet Take 1 tablet by mouth daily. 30 tablet 1 vitamin C with jacob hips (VITAMIN C) 1,000 mg tablet Take 1 tablet by mouth daily. 30 tablet 1 Zinc 50 mg Tab Take 1 tablet by mouth daily. 30 tablet 1 PHYSICAL EXAM: Blood pressure (!) 136/92, pulse 80, temperature 36.7 C (98 F), temperature source Oral, resp. rate 20, height 5' 5" (1.651 m), weight 230 lb 9.6 oz (104.6 kg), SpO2 99 %. Appearance: comfortable, no distress Eye: normal [...] and station Psychiatric: alert, oriented, with appropriate affect. Anxiety Skin: skin color, texture and turgor are [...] fissure is present at this level. ASSESSMENT/PLAN: Essential hypertension - Stable s/p ER visit. BP improved on arrival. Medication reconciliation completed, will d/c lisinopril - HCTZ and start on Losartan - HCTZ 50 - 1.25mg qDay. - Advised to adopt DASH diet plan - losartan-hydrochlorothiazide 50-12.5 mg per tablet; Take 1 tablet by mouth daily. Dispense: 90 tablet; Refill: 1 Gastroesophageal reflux disease without esophagitis - Lifestyle and diet modification discussed - pantoprazole 20 mg EC tablet; Take 1 tablet by mouth daily. Dispense: 90 tablet; Refill: 0 diaphoresis Anxiety - Anticipatory guidance discussed, will start on Hydroxyzine PRN, monitor - CONSULT/REFERRAL PSYCHOLOGY Encounter for other screening for malignant neoplasm of breast - BI SCREENING MAMMOGRAM BILATERAL; Future Pap smear for cervical cancer screening - Ordered - CONVENTIONAL PAP SMEAR - CONSULT/REFERRAL GAS DISPATCHER HEALTH MAINTENANCE / PREVENTION: Per orders including patient education - Weight Management: BMI 38.36kg/m - Flu vaccination: UTD - TDAP Ordered - Pap Smear: Ordered - Weight loss, medication compliance and lifestyle modification encouraged Preventive Care: Medication reconciliation, patient education and anticipatory guidance completed. All questions and concerns addressed. AVS given, handout provided. Return in about 3 months (around 04/22/2020), or if symptoms worsen or fail to improve. Naldo Olsen MD, MPH, AAMDVS Clinical Engineering Mathematician, Department of Family Medicine [facility] Primary & Specialty Care - ADC 01/21/2020 4:24 PM Future Appointments Provider Department Dept Phone Center 04/23/2020 4:20 PM Naldo Olsen MD [facility] Health Pediatric and Adult Primary Care- Tammi [phone] [facility] documented in this encounter Plan of Treatment Date Type Specialty Care Team Description 04/23/2020 Office Visit Family Medicine Naldo Olsen MD [address] [place] [address] Dr [place], [place] [address] [phone] Name Type Priority Associated Diagnoses Order S chedule BI SCREENING MAMMOGRAM IMAGING Routine Encounter for othe r Expected: 01/21/2020, BILATERAL screening for malignant Expi res: 03/22/2021 neoplasm of breast Health Maintenance Due Date Last Done Comments Breast Cancer Screening 2019 (MAMMOGRAM) Depression Screening 08/27/2020 08/28/2019 INFLUENZA VACCINE (#1) 2020 01/14/2019 Postponed from 12/17/2019 (Alternative [place] delines) PAP SMEAR 02/12/2021 Postponed from 1 06/01/1999 (Alternative [place] delines) DTaP,Tdap,and Td Vaccines (2 - 01/14/2029 01/14/2019 Td) PNEUMOCOCCAL 0-64 YEARS COMBINED Aged Out No longer eligible based on SERIES patient's age to complete this topic documented as of this encounter Results Not on filedocumented in this encounter Visit Diagnoses Diagnosis Essential hypertension - Primary Unspecified essential hypertension Gastroesophageal reflux disease without esophagitis Esophageal reflux Screening for malignant neoplasm of the cervix Encounter for other screening for malign ant neoplasm of breast Anxiety Anxiety state, unspecified Hospital discharge follow-up Other follow-up examination documented in this encounter Insurance Payer Benefit Plan / Subscriber ID Effective Dates Phone Addre ss Type Group [facility] [employer] [facility] [place] [id number] 2017-Present PPO/POS [facility] EMPLOYEE EMPLOYEE PLAN [phone] [id number] (Work) documented as of this encounter
--- OUTSIDE RECORDS SUMMARY | 2020-03-06 16:18 | XMS REPORT | Summary of Care ---
:1980 Author Organization [facility] Address [address] [place] [id number] Care Team Providers Name Role Phone MD Raúl Primary Care Provider Reason for Visit Reason Comments Refill Request Encounter Details Date Type Department Care Team Description 01/28/2020 Refill [facility] Pediatric and Nadlo Van MD Refill Request Adult Primary Care- [address] [facility] [address] [place] [address] [address] [place] [address] [phone] Allergies Active Allergy Reactions Severity Noted Date Comments Codeine Shortness of Breath 03/17/2017 Oxycodone-Acetaminophen Itching 03/17/2017 Promethazine Hcl Other - See comments 03/17/2017 con vulsions Metoclopramide Hcl Unknown - See comments 03/17/2017 Convulsion documented as of this encounter (statuses as of 02/04/2020) Medications Medication Sig Dispensed Refills Start End Date Status Date ibuprofen (IBU ORAL) Take 800 mg 0 Active by mouth. amoxicillin-clavulana Take 1 tablet 20 tablet 0 [...] unit) tabletIndications: URI with cough and congestion losartan-hydrochlorot Take 1 tablet 90 tablet 1 Active hiazide 50-12.5 mg by mouth 0 per daily. tabletIndications: Essential hypertension pantoprazole 20 mg EC Take 1 tablet 90 tablet 0 Active tabletIndications: by mouth 0 Gastroesophageal daily. reflux disease without esophagitis hydrOXYzine 50 mg Take 1 tablet 60 tablet 1 Active tabletIndications: by mouth 0 Anxiety every 8 (eight) hours as needed for Anxiety. CETIRIZINE 10 mg TAKE ONE (1) 30 tablet 0 Active tabletIndications: TABLET(S) BY 0 URI with cough and MOUTH AT congestion BEDTIME NEEDED FOR ALLERGIES. brompheniramine-pseud Take 10 mL by 120 mL 0 01/16 Discontinued oephedrine-DM mouth 4 0 20 (Reord er) (BROMFED DM) 2-30-10 (four) times mg/5 mL daily as syrupIndications: URI needed for with cough and Cold symptoms congestion or Cough. cetirizine (ZYRTEC) Take 1 tablet 30 tablet 0 Discontinued 10 mg by mouth at 0 20 tabletIndications: bedtime as URI with cough and needed for congestion Allergies. 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 01/01/2020 Acute maxillary sinusitis, recurrence not specified URI with cough and congestion 01/01/2020 Hypertensive urgency 01/01/2020 Non compliance w medication regimen 01/01/2020 Essential hypertension 01/14/2019 Kidney stones 01/14/2019 Need for Tdap vaccination 01/14/2019 Influenza vaccination ordered 01/14/2019 Encounter for other screening for malignant neoplasm o f breast 01/14/2019 Hepatomegaly 01/14/2019 documented as of this encounter (statuses as of 02/04/2020) Immunizations Name Administration Dates Next Due Influenza [...] Signs Not on filedocumented in this encounter Miscellaneous Notes Telephone Encounter - Naldo Olsen MD - 02/04/2020 5:35 PM CDTRx sent to pharmacy documented in this encounter Plan of Treatment Date Type Specialty Care Team Description 04/23/2020 Office Visit Family Medicine Naldo Olsen MD [address] [place] [address] Dr Dom[address]nguez [address] [place] [address] 775 15 [phone] Health Maintenance Due Date Last Done Comments [...] filedocumented in this encounter Visit Diagnoses Diagnosis URI with cough and congestion documented in this encounter Insurance Payer Benefit Plan / Subscriber ID Effective Dates Phone Addre ss Type Group [facility] [id number] 2017-Present PPO/POS [facility] [employer] [employer] EM[employer]EE PLAN documented as of this encounter
--- OUTSIDE RECORDS SUMMARY | 2020-03-06 16:18 | XMS REPORT | Summary of Care ---
:1980 Author Organization [facility] Address [address] [place] [id number] Care Team Providers Name Role Phone MD Raúl Primary Care Provider Reason for Referral Radiology Services (STAT) Status Reason Specialty Diagnoses / Referred By Referred To Procedures Contact Contact New Request Diagnostic Diagnoses Chest pain, unspecified type Ramirez Fink, Radiology Procedures Chest 1 View [address] [facility] [id number] [place] [address] Reason for Visit Reason Comments Hypertension Auth/Cert Status Reason Specialty Diagnoses / Referred By Referred To Procedures Contact Contact Emergency Medicine [facility] Em ergency Dept [address] [place] [address] Fax: Encounter Details Date Type Department Care Team Description 01/01/2020 Emergency [facility]-Emergency Ramirez Fink MD Chest pain, unspecified type (Primary Dx ); Department [address] [facility] Essential hypertension; [address] [facility] [address] romo [id number] Upper respiratory tract infection, unspe cified type [address] [phone] [id number] Allergies Active Allergy Reactions Severity Noted Date Comments Codeine Shortness of Breath 03/17/2017 Oxycodone-Acetaminophen Itching 03/17/2017 Promethazine Hcl Other - See comments 03/17/2017 con vulsions Metoclopramide Hcl Unknown - See comments 03/17/2017 Convulsion documented as of this encounter (statuses as of 01/01/2020) Medications Medication Sig Dispensed Refills Start Date End Date Status ibuprofen (IBU ORAL) Take 800 mg by 0 Active mouth. brompheniramine-pseudo Take 10 mL by 120 mL 0 01/01/2020 Active ephedrine-DM (BROMFED mouth 4 (four) DM) 2-30-10 mg/5 mL times daily as syrupIndications: URI needed for Cold with cough and symptoms or Cough. congestion amoxicillin-clavulanat Take 1 tablet by 20 tablet 0 01/01/2020 Active e (AUGMENTIN) 875-125 mouth 2 (two) mg per times daily. tabletIndications: Non-seasonal allergic rhinitis due to other allergic trigger, Acute maxillary sinusitis, recurrence not specified, URI with cough and congestion Zinc 50 mg Take 1 tablet by 30 tablet 1 01/01/2020 A ctive TabIndications: URI mouth daily. with cough and congestion vitamin C with david Take 1 tablet by 30 tablet 1 01/01/2020 Active hips (VITAMIN C) 1,000 mouth daily. mg tabletIndications: URI with cough and congestion Cholecalciferol, Take 1 tablet by 30 tablet 1 01/01/2020 Active Vitamin D3, (VITAMIN mouth daily. D3) 125 mcg (5,000 unit) tabletIndications: URI with cough and congestion lisinopriL-hydrochloro Take 1 tablet by 90 tablet 1 01/01/2020 Active thiazide 20-12.5 mg mouth daily. per tabletIndications: Essential hypertension cetirizine (ZYRTEC) 10 Take 1 tablet by 30 tablet 0 01/01/2020 Active mg tabletIndications: mouth at bedtime URI with cough and as needed for congestion Allergies. 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 documented as of this encounter Last Filed Vital Signs Vital Sign Reading Time Taken Comments Blood Pressure 135/95 01/01/2020 5:30 PM CDT Pulse 66 01/01/2020 5:30 PM CDT Temperature 37.3 C (99.2 F) 01/01/2020 2:35 PM CDT Respiratory Rate 16 01/01/2020 5:30 PM CDT Oxygen Saturation 97% 01/01/2020 5:30 PM CDT Inhaled Oxygen Concentration - - Weight 102.5 kg (226 lb) 01/01/2020 2:35 PM CDT Height 165.1 cm (5' 5") 01/01/2020 2:35 PM CDT Body Mass Index 37.61 01/01/2020 2:35 PM CDT documented in this encounter Discharge Instructions Ramirez Finney MD - 01/01/2020 DIAGNOSIS Diagnoses that have been ruled out: None Diagnoses that are still under consideration: None Final diagnoses: Chest pain, unspecified type Essential hypertension Upper respiratory tract infection, unspecified type NO LIFE-THREATENING FINDINGS ON TODAY'S EXAM. PROCEDURES IN THE ER TODAY: Orders Placed This Encounter Procedures Chest 1 View CBC with Differential Basic Metabolic Panel (NA, K, CL, CO2, GLUCOSE, BUN, CREATININE, CA) Troponin I Urinalysis MEDICATIONS ADMINISTERED IN THE ER TODAY: Orders Placed This Encounter Medications metoprolol (LOPRESSOR) injection 5 mg ketorolac (TORADOL) injection 30 mg YOUR PRESCRIPTIONS AND FPAY-NTU-DSMPQIN MEDICATION RECOMMENDATIONS: Continue medications. FOLLOW-UP RECOMMENDATIONS: RECOMMEND FOLLOW-UP WITH A PRIMARY CARE PROVIDER OR SPECIALIST IN 2-5 DAYS, ESPECIALLY IF NO IMPROVEMENT IN SYMPTOMS. TO FOLLOW-UP WITHIN THE [facility], TRY THESE OPTIONS (CLINIC APPOINTMENTS AVAILABLE ON [id number] BASIS): 1. SCHEDULE AN APPOINTMENT ONLINE AT WWW[facility] 2. OR CALL THE [facility] AT OR 3. OR CALL YOUR [facility] PHYSICIAN'S OFFICE DIRECTLY IF YOU ARE ALREADY AN ESTABLISHED [facility] PATIENT. OR, YOU MAY FOLLOW-UP WITH A PROVIDER OF YOUR CHOICE, SUCH : 1. A PHYSICIAN OF YOUR CHOICE 2. [facility], . LOCATIONS IN [facility] 3. [facility], [address] [place], [place]; [phone] RETURN TO ER FOR WORSENING OF SYMPTOMS. AttachmentsThe following attachments cannot be sent through Care Everywhere. Chest Pain, Noncardiac ([place])URI, Viral, No Abx (Adult) ([place]) Hypertension, Established ([place])documented in this encounter ED Notes Reena Bustillo RN - 01/01/2020 2:33 PM CDTPatient started having cough, headache, runny nose, chills on Monday. Seen Monday for covid test (negative) followed up with PCP today and sent her due to HTN in clinic also complaining of chest tightness 3/10 and Headache 4/10. 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 Patient went to see her PCP today for follow-up of upper respiratory symptoms and possible covid disease. Patient was negative for Covid in the most recent test. Reports HTN but not treated. No SOB, fever or chills. Mild headache. Past Medical and Social History Past Medical History: Diagnosis Date Hypertension Social History Tobacco Use Smoking status: Never Smoker Smokeless tobacco: Never Used Substance Use Topics Alcohol use: No Drug use: No Past Surgical History Past Surgical History: Procedure Laterality Date BREAST SURGERY OPEN CARPAL TUNNEL RELEASE Right Medications Medications metoprolol (LOPRESSOR) injection 5 mg (5 mg Slow IV Push Given 01/01/20 155) ketorolac (TORADOL) injection 30 mg (30 mg Slow IV Push Given 01/01/201558) Allergies Allergies Allergen Reactions Codeine Shortness of Breath Percocet [Oxycodone-Acetaminophen] Itching Phenergan [Promethazine Hcl] Other - See comments convulsions Reglan [Metoclopramide Hcl] Unknown - See comments Convulsion Review of Systems Review of Systems Constitutional: Negative. HENT: Positive for congestion. Eyes: Negative. Respiratory: Positive for cough. Cardiovascular: Positive for chest pain. Gastrointestinal: Negative. Genitourinary: Negative. Musculoskeletal: Negative. Skin: Negative. Neurological: Positive for headaches. Psychiatric/Behavioral: Negative. Endocrine: Endocrine negative Physical Exam BP (!) 142/91 | Pulse 63 | Temp 37.3 C (99.2 F) (Oral) | Resp 15 | Ht 1.651 m (5' 5") | Wt 102.5 kg (226 lb) | SpO2 98% | BMI 37.61 kg/m Physical Exam Vitals signs and nursing note reviewed. Constitutional: General: She is not in acute distress. Appearance: She is well-developed. She is not ill-appearing or toxic-appearing. HENT: Head: Normocephalic and atraumatic. Right Ear: Ear canal and external ear normal. Left Ear: Ear canal and external ear normal. Nose: Nose normal. No mucosal edema or rhinorrhea. Right Sinus: No frontal sinus tenderness. Left Sinus: No frontal sinus tenderness. Mouth/Throat: Mouth: Mucous membranes are moist. Pharynx: Oropharynx is clear. Uvula midline. Eyes: General: Lids are normal. Conjunctiva/sclera: Conjunctivae normal. Pupils: Pupils are equal, round, and reactive to light. Neck: Musculoskeletal: Full passive range of motion without pain, normal range of motion and neck supple. No neck rigidity or muscular tenderness. Thyroid: No thyroid mass or thyromegaly. Vascular: No carotid bruit or JVD. Trachea: Trachea and phonation normal. Cardiovascular: Rate and Rhythm: Normal rate and regular rhythm. Heart sounds: Normal heart sounds. Pulmonary: Effort: Pulmonary effort is normal. No tachypnea or respiratory distress. Breath sounds: Normal breath sounds. No stridor. No wheezing, rhonchi or rales. Chest: Chest wall: No tenderness. Abdominal: General: Bowel sounds are normal. There is no distension. Palpations: Abdomen is soft. Tenderness: There is no rebound. Musculoskeletal: Normal range of motion. General: No swelling, tenderness, deformity or signs of injury. Lymphadenopathy: Cervical: No cervical adenopathy. Skin: Capillary Refill: Capillary refill takes less than 2 seconds. Coloration: Skin is not jaundiced or pale. Findings: No bruising, erythema, lesion or rash. Neurological: General: No focal deficit present. Mental Status: She is alert and oriented to person, place, and time. GCS: GCS eye subscore is 4. GCS verbal subscore is 5. GCS motor subscore is 6. Cranial Nerves: No cranial nerve deficit. Sensory: No sensory deficit. Motor: No tremor or atrophy. Psychiatric: Mood and Affect: Mood normal. Behavior: Behavior normal. Thought Content: Thought content normal. Judgment: Judgment normal. Labs and Studies Recent Results (from the past 24 hour(s)) CBC with Differential Collection Time: 01/01/20 3:12 PM Result Value Ref Range WBC 7.04 4.30 - 11.10 10*3/L RBC 4.45 3.93 - 5.25 10*6/L HGB 13.4 11.6 - 15.0 g/dL HCT 39.7 35.7 - 45.2 % MCV 89.2 80.6 - 95.5 fL MCH 30.1 25.9 - 32.8 pg MCHC 33.8 31.6 - 35.1 g/dL RDW-SD 41.2 39.0 - 49.9 fL RDW-CV 12.6 12.0 - 15.5 % PLT 333 166 - 358 10*3/L MPV 9.4 (L) 9.5 - 12.9 fL NRBC/100 WBC 0.0 0.0 - 10.0 /100 WBCs NRBC x10^3 <0.01 10*3/L GRAN MAT (NEUT) % 68.8 % IMM GRAN % 0.30 % LYMPH % 23.6 % MONO % 5.0 % EOS % 1.7 % BASO % 0.6 % GRAN MAT x10^3(ANC) 4.85 1.88 - 7.09 10*3/uL IMM GRAN x10^3 <0.03 0.00 - 0.06 10*3/uL LYMPH x10^3 1.66 1.32 - 3.29 10*3/uL MONO x10^3 0.35 0.33 - 0.92 10*3/uL EOS x10^3 0.12 0.03 - 0.39 10*3/uL BASO x10^3 0.04 0.01 - 0.07 10*3/uL Basic Metabolic Panel (NA, K, CL, CO2, GLUCOSE, BUN, CREATININE, CA) Collection Time: 01/01/20 3:12 PM Result Value Ref Range NA 136 135 - 145 mmol/L K 3.7 3.5 - 5.0 mmol/L CL 102 98 - 108 mmol/L CO2 TOTAL 22 (L) 23 - 31 mmol/L AGAP 12 2 - 16 BUN 9 7 - 23 mg/dL GLUCOSE 103 70 - 110 mg/dL CREATININE 0.55 0.50 - 1.04 mg/dL CALCIUM 9.3 8.6 - 10.6 mg/dL eGFR Calculation (Non-) 122.4 mL/min/1.73m2 eGFR Calculation () 148.4 mL/min/1.73m2 Troponin I Collection Time: 01/01/20 3:12 PM Result Value Ref Range TROPONIN I <0.012 <=0.034 ng/mL Urinalysis Collection Time: 01/01/20 3:29 PM Result Value Ref Range APPEARANCE Hazy (A) Clear COLOR Yellow Yellow PH 6.0 4.8 - 8.0 SP GRAVITY 1.017 1.003 - 1.030 GLU U QUAL Normal Normal BLOOD 3+ (A) Negative KETONES Negative Negative PROTEIN Negative Negative UROBILIN Normal Normal BILIRUBIN Negative Negative NITRITE Negative Negative LEUK HECTOR 25/uL (A) Negative RBC/HPF >182 (H) 0 - 3 HPF WBC/HPF 5 0 - 5 HPF BACTERIA Negative Negative MUCOUS Marked (A) Negative LPF SQ EPITH 5 HPF Hospital Encounter on 01/01/20 Chest 1 View Narrative HISTORY: Chest pain. TECHNIQUE: Portable AP semierect view of the chest is obtained. No prior chest study available for comparison. FINDINGS: No acute pneumonia. No pneumothorax or pleural effusion or pulmonary congestion detected. Cardiac size is within normal limits. CONCLUSIONS: No signs of acute cardiopulmonary disease. EKG: normal sinus rhythm, rate 75, no ST elevation, LVH. Orders and Treatments Orders Placed This Encounter Procedures Chest 1 View CBC with Differential Basic Metabolic Panel (NA, K, CL, CO2, GLUCOSE, BUN, CREATININE, CA) Troponin I Urinalysis Orders Placed This Encounter Medications metoprolol (LOPRESSOR) injection 5 mg ketorolac (TORADOL) injection 30 mg Patient's Medications START taking these medications No medications on file CONTINUE taking these medications which have NOT CHANGED AMOXICILLIN-CLAVULANATE (AUGMENTIN) 875-125 MG PER TABLET Take 1 tablet by mouth 2 (two) times daily. [id number]-GL (BROMFED DM) 2-30-10 MG/5 ML SYRUP Take 10 mL by mouth 4 (four) times daily as needed for Cold symptoms or Cough. CETIRIZINE (ZYRTEC) 10 MG TABLET Take 1 tablet by mouth at bedtime as needed for Allergies. CHOLECALCIFEROL, VITAMIN D3, (VITAMIN D3) 125 MCG (5,000 UNIT) TABLET Take 1 tablet by mouth daily. IBUPROFEN (IBU ORAL) Take 800 mg by mouth. LISINOPRIL-HYDROCHLOROTHIAZIDE 20-12.5 MG PER TABLET Take 1 tablet by mouth daily. VITAMIN C WITH DAVID HIPS (VITAMIN C) 1,000 MG TABLET Take 1 tablet by mouth daily. ZINC 50 MG TAB Take 1 tablet by mouth daily. START taking Modified Medications as Prescribed No medications on file STOP taking these medications No medications on file Procedures Procedures MDM & Notes Coding Patient was evaluated for the complaint of Hypertension ED Course as of Dec 31 1722MonJan 01, 2020 1605 Patient appears in no distress systolic blood pressure fluctuating between 180 to 150s. Reportsprevious history of hypertension but currently on no medications. Dose of beta blockers given. Labs and imaging pending. [JJ] ED Course User Index [JJ] Ramirez Fink MD History, physical exam findings, results of visit, differential diagnosis, medication regimens and plan of future care have been considered. Additional MDM may be found in the ED course. Differential diagnosis considered and final disposition made based on information gathered during evaluation and may not be completely ruled out. Vital signs were rechecked before final disposition and determined to be stable. Diagnoses ICD-10-CM ICD-9-CM 1. Chest pain, unspecified type R07.9 786.50 2. Essential hypertension I10 401.9 3. Upper respiratory tract infection, unspecified type J06.9 465.9 Disposition and Condition ED Disposition ED Disposition Condition Comment Disch - Home Stable Ramirez Riley. MD Danae, FACEP, FAAEM Sheet Rock Taper Helper of Emergency and Internal Medicine [facility] #[id number] documented in this encounter Miscellaneous Notes ED Nurse Note - Reena Bustillo RN - 01/01/2020 5:44 PM CDTPatient provided discharge instructions, AVS, return precautions, follow-up information, told to take medications as prescribed by PCP and all questions answered. Patient ambulated out of ED in no acute distress. documented in this encounter Plan of Treatment Date Type Specialty Care Team Description 01/15/2020 Office Visit Family Medicine Naldo Olsen MD [address] [place] [address] Dr Domínguez [address] [place] [address] [phone] Health Maintenance Due Date Last Done Comments PAP SMEAR 2000 Breast Cancer Screening 2019 (MAMMOGRAM) INFLUENZA VACCINE (#1) 2019 01/14/2019 Depression Screening 08/27/2020 08/28/2019 DTaP,Tdap,and Td Vaccines (2 - Td) 01/14/2029 01/14/2019 PNEUMOCOCCAL 0-64 YEARS COMBINED Aged Out No longer eligible based on SERIES patient's age to complete this topic documented as of this encounter Procedures Procedure Name Priority Date/Time Associated Diagnosis Comme nts URINALYSIS STAT 01/01/2020 3:29 Chest pain, Results for this PM CDT unspecified type procedure a re in the results section. CBC WITH DIFF STAT 01/01/2020 3:12 Chest pain, Results fo r this PM CDT unspecified type procedure a re in the results section. BASIC METABOLIC STAT 01/01/2020 3:12 Chest pain, Results for this PANEL (NA, K, CL, PM CDT unspecified type proced ure are in CO2, GLUCOSE, BUN, the resul ts CREATININE, CA) section. TROPONIN I STAT 01/01/2020 3:12 Chest pain, Results for this PM CDT unspecified type procedure a re in the results section. XR CHEST 1 VW STAT 01/01/2020 3:03 Chest pain, Results fo r this PM CDT unspecified type procedure a re in the results section. NOTICE OF PRIVACY Routine 01/01/2020 2:28 PRACTICES PM CDT CONSENT/REFUSAL FOR Routine 01/01/2020 2:28 DIAGNOSIS AND PM CDT TREATMENT documented in this encounter Results Urinalysis (01/01/2020 3:29 PM CDT) Pathologist Sig nature APPEARANCE Hazy (A) Clear [facility] COLOR Yellow Yellow [facility] PH 6.0 4.8 - 8.0 [facility] SP GRAVITY 1.017 1.003 - 1.030 [facility] GLU U QUAL Normal Normal [facility] BLOOD 3+ (A) Negative [facility] KETONES Negative Negative [facility] PROTEIN Negative Negative [facility] UROBILIN Normal Normal [facility] BILIRUBIN Negative Negative [facility] NITRITE Negative Negative [facility] LEUK HECTOR 25/uL (A) Negative [facility] RBC/HPF >182 (H) 0 - 3 HPF [facility] WBC/HPF 5 0 - 5 HPF [facility] BACTERIA Negative Negative [facility] MUCOUS Marked (A) Negative LPF [facility] SQ EPITH 5 HPF [facility] Specimen Urine - URINE, CLEAN CATCH Performing Organization Address City/State/Zipcode Phone Number [facility] CLIA: [id number] [place] [address] LABORATORY [address] [facility] Troponin I (01/01/2020 3:12 PM CDT) Pathologist Sig [facility] TROPONIN I <0.012 <=0.034 ng/mL [facility] Specimen Blood - VENOUS Narrative Performed At Equal or Less than 0.034 ng/ml---Normal [facility] Note: Cardiac troponin begins to rise 3-4 hours after the onset of ischemia. Repeat in 4-6 hours if the sample was drawn within 3-4 hours of the onset of the symptom and found normal. Between 0.035 and 0.120 ng/mL--- Borderline. Questionable myocardial injury or necros is Note: Serial measurement may be necessary to confirm or exclude the diagnosis of myocardial injury or necrosis; Clinical correlation (symptoms, EKGs, imaging studies, and others) required; Repeat in 4-6 hours if clinically indicated. Equal or Higher than 0.121 ng/mL---Abnormal. Myocardial Injury or Necrosis Likely Biotin has been reported to cause a negative bias, interpret results relative to patient's use of biotin. Performing Organization Address City/State/Zipcode Phone Number [facility] CLIA: [id number] [place] [address] LABORATORY [address] [facility] Basic Metabolic Panel (NA, K, CL, CO2, GLUCOSE, BUN, CREATININE, CA) (01/01/2020 3:12 PM CDT) Pathologist [facility] Chalkfly NA 136 135 - 145 [facility] mmol/L [facility] K 3.7 3.5 - 5.0 [facility] mmol/L [facility] CL 102 98 - 108 mmol/L [facility] CO2 TOTAL 22 (L) 23 - 31 mmol/L [facility] AGAP 12 2 - 16 [facility] BUN 9 7 - 23 mg/dL [facility] GLUCOSE 103 70 - 110 mg/dL [facility] CREATININE 0.55 0.50 - 1.04 [facility] mg/dL [facility] CALCIUM 9.3 8.6 - 10.6 [facility] mg/dL [facility] eGFR Calculation 122.4 mL/min/1.73m2 [facility] (Non-) [facility] Y eGFR Calculation 148.4 mL/min/1.73m2 [facility]ORATORY Specimen Blood - VENOUS Narrative Performed At Association of Glomerular Filtration Rate (GFR) [facility] and Staging of Kidney Disease* + + +- + | GFR (mL/min/1.73 m2) | With Kidney Damage | Without Kidney Damage + + +- + | >90 | Stage one | Normal + + +- + | 60-89 | Stage two | Decreased GFR + + +- + | 30-59 | Stage three | Stage three + + +- + | 15-29 | Stage four | Stage four + + +- + | <15 (or dialysis) | Stage five | Stage five + + +- + *Each stage assumes the associated GFR level has been in effect for at least three months. Stages 1 to 5, with or without kidney [...] abnormalities in imaging tests). Performing Organization Address City/State/Zipcode Phone Number [facility] CLIA: [id number] [place] [address] CBC with Differential (01/01/2020 3:12 PM CDT) [facility] WBC 7.04 4.30 - 11.10 [facility] 10*3/L [facility] RBC 4.45 3.93 - 5.25 [facility] 10*6/L [facility] HGB 13.4 11.6 - 15.0 g/dL [facility] HCT 39.7 35.7 - 45.2 % [facility] MCV 89.2 80.6 - 95.5 fL [facility] MCH 30.1 25.9 - 32.8 pg [facility] MCHC 33.8 31.6 - 35.1 g/dL [facility] RDW-SD 41.2 39.0 - 49.9 fL [facility] RDW-CV 12.6 12.0 - 15.5 % [facility] PLT 333 166 - 358 [facility] 10*3/L [facility] MPV 9.4 (L) 9.5 - 12.9 fL [facility] NRBC/100 WBC 0.0 0.0 - 10.0 /100 [facility] WBCs [facility] NRBC x10^3 <0.01 10*3/L [facility] GRAN MAT (NEUT) % 68.8 % [facility] IMM GRAN % 0.30 % [facility] LYMPH % 23.6 % [facility] MONO % 5.0 % [facility] EOS % 1.7 % [facility] BASO % 0.6 % [facility] GRAN MAT x10^3(ANC) 4.85 1.88 - 7.09 [facility] 10*3/uL [facility] IMM GRAN x10^3 <0.03 0.00 - 0.06 [facility] 10*3/uL [facility] LYMPH x10^3 1.66 1.32 - 3.29 [facility] 10*3/uL [facility] MONO x10^3 0.35 0.33 - 0.92 [facility] 10*3/uL [facility] EOS x10^3 0.12 0.03 - 0.39 [facility] 10*3/uL [facility] BASO x10^3 0.04 0.01 - 0.07 [facility] 10*3/uL [facility] Specimen Blood - VENOUS Performing Organization Address City/State/Zipcode Phone Number [facility] CLIA: [id number] [place] [address] Chest 1 View (01/01/2020 3:03 PM CDT) Specimen Narrative Performed At HISTORY: Chest pain. PACS/VR/DOSE TECHNIQUE: Portable AP semierect view of the chest is obtained. No prior chest study available for comparison. FINDINGS: No acute pneumonia. No pneumot horax or pleural effusion or pulmonary congestion detected. Cardiac s ize is within normal limits. CONCLUSIONS: No signs of acute cardiopulmonary disease . Procedure Note [facility], Radiant Results Inft User - 2019 3:06 PM CDT HISTORY: Chest pain. TECHNIQUE: Portable AP semierect view of the chest is obtained. No prior chest study available for comparison. FINDINGS: No acute pneumonia. No pneumot horax or pleural effusion or pulmonary congestion detected. Cardiac s ize is within normal limits. CONCLUSIONS: No signs of acute cardiopul monary disease. Performing Organization Address City/State/Zipcode Phone Number PACS/VR/DOSE documented in this encounter Visit Diagnoses Diagnosis Chest pain, unspecified type - Primary Essential hypertension Unspecified essential hypertension Upper respiratory tract infection, unspe cified type documented in this encounter Administered Medications Medication Order MAR Action Action Date Dose Rate Site ketorolac (TORADOL) injection 30 Given 01/01/2020 3:59 PM CDT 3 0 mg mg 30 mg, Slow IV Push, ONCE, 1 dose, Mon01/01/20 at 1645, Routine, lance crewmember/mlrs sergeant approving Restricted medication: RAMIREZ FINK metoprolol (LOPRESSOR) injection 5 mg Given 01/01/2020 3:59 PM CDT 5 mg 5 mg, Slow IV Push, ONCE, 1 dose, Mon01/01/20 at 1645, JACQUI documented in this encounter Insurance Payer Benefit Plan / Subscriber ID Effective Dates Phone Addre ss Type Group [facility] [id number] 2017-Present PPO/POS [employer] [employer] [facility] EMPLOYEE EMPLOYEE PLAN [phone] [id number] (Work) documented as of this encounter
--- OUTSIDE RECORDS SUMMARY | 2020-03-06 16:18 | XMS REPORT | Summary of Care ---
:1980 Author Organization [facility] Address [address] [place] [address] Care Team Providers Name Role Phone MD Raúl Primary Care Provider Reason for Referral (Routine) Status Reason Specialty Diagnoses / Procedures Referred By C ontact Referred To Contact Closed Psychiatry Diagnoses Anxiety Naldo Olsen Web-Psychiatry Procedures CONSULT/REFERRAL PSYCHOLOGY MD Staff [address] [place] [address] Phone: [phone] Fax: Radiology Services (Routine) Status Reason Specialty Diagnoses / Referred By Referred To Procedures Contact Contact New Request Diagnostic Diagnoses Encounter for other screening for malignant neoplasm of breast Deneen Olsen Procedures BI SCREENING MAMMOGRAM BILATERAL MD Naldo [address] [place] [address] [address] [place] [address] Reason for Visit Reason Comments Follow-up Hypertension [facility] F[facility] Medication Problem Encounter Details Date Type Department Care Team Description 01/21/2020 Office Visit [facility] Naldo Olsen Essential hypertension (Primary Dx); Pediatric and Adult Gastroesophageal reflux disease without esophagitis; Primary Care- [address] [place] [address] Screening f or malignant neoplasm of the cervix; Tammi Govea Encounter for other screening for malign ant neoplasm of breast; [facility] [address], [address] [place], [place] Hospital [place] [phone] Allergies Active Allergy Reactions Severity Noted [...] 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 20 tablet 0 ybweywxsvfzcktl-pqulpvwlexkzhhq-XV (BROMFED DM) 2-30-10 mg/5 mL syrup Take [...] Ordered - CONVENTIONAL PAP SMEAR - CONSULT/REFERRAL INFORMATICS PHYSICIAN HEALTH MAINTENANCE / PREVENTION: Per orders including [...] fail to improve. Naldo Olsen MD, MPH, AAOKVS Clinical Manager Endoscopy, Department of Family Medicine [facility] Primary & Specialty Care - ADC 01/21/2020 4:24 PM Future Appointments Provider Department Dept Phone Center 04/23/2020 4:20 PM Naldo Olsen MD [facility] Health Pediatric and Adult Primary Care- Tammi [phone] [facility] documented in this encounter Plan of Treatment Date Type Specialty Care Team Description 04/23/2020 Office Visit Family Medicine Naldo Olsen MD [address] [place] [address] Dr [place], [place] [address] [phone] Name Type Priority Associated Diagnoses Order S [...] Dates Phone Addre ss Type Group [facility] - [employer] [place] [id number] 2017-Present PPO/POS [facility] EMPLOYEE EMPLOYEE PLAN [phone] [id number] (Work) documented as of this encounter
--- OUTSIDE RECORDS SUMMARY | 2020-03-06 16:18 | XMS REPORT | Summary of Care ---
:1980 Author Organization [facility] [[email or web address]] - [facility] Address [address] [place] [id number] Care Team Providers Name Role Phone MD Raúl Primary Care Provider Reason for Visit Reason Comments Transition Of Care Encounter Details Date Type Department Care Team Description 01/03/2020 Transition of Care [facility] Abram Copeland Transition Of Care [facility]- [address] [place] [address] [id number] Allergies Active Allergy Reactions Severity Noted Date Comments Codeine Shortness of Breath 03/17/2017 Oxycodone-Acetaminophen Itching 03/17/2017 Promethazine Hcl Other - See comments 03/17/2017 con vulsions Metoclopramide Hcl Unknown - See comments 03/17/2017 Convulsion documented as of this encounter (statuses as of 01/03/2020) Medications Medication Sig Dispensed Refills Start Date [...] with cough and congestion vitamin C with jacob Take 1 tablet by 30 tablet 1 [...] as of this encounter (statuses as of 01/03/2020) Active Problems Problem Noted Date Non-seasonal allergic rhinitis due to other allergic 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 Acute maxillary sinusitis, recurrence not specified URI with cough and congestion 01/01/2020 Hypertensive urgency 01/01/2020 Non compliance w medication regimen 01/01/2020 Essential hypertension 01/14/2019 Kidney stones 01/14/2019 Need for Tdap vaccination 01/14/2019 Influenza vaccination ordered 01/14/2019 Pap smear for cervical cancer screening 01/14/2019 Hepatomegaly 01/14/2019 documented as of this encounter (statuses as of 01/03/2020) Immunizations Name Administration Dates Next Due Influenza [...] this encounter Miscellaneous Notes Telephone Encounter - Karen Copeland - 01/03/2020 1:46 PM CDT TRANSITIONAL CARE MANAGEMENT ASSESSMENT 01/03/2020 Octavia Lo [id number] Octavia Lo is a 39 year old /White female was admitted on 01/01/20 to [facility]. She was discharged on 01/01/20 with discharge disposition of HR- Routine Discharge. Admitting Physician: Discharge Diagnosis: Hypertension No answer. No linked episodes TCM Osn-axei-ck-face outreach documentation: Future Appointments: Future Appointments Provider Department Dept Phone 01/15/2020 3:00 PM Naldo Olsen MD [facility] Pediatric and Adult Primary Care- [place] [phone] documented in this encounter Plan of Treatment Date Type Specialty Care Team Description 01/15/2020 Office Visit Family Medicine Naldo Olsen MD [address] [place] [address] Dr [address] [place], [place] [address] [phone] Health Maintenance Due Date Last Done Comments [...] Dates Phone Addre ss Type Group [employer] [place] [employer] [place] [id number] 2017-Present PPO/POS [facility] [[email or web address]] EMPLOYEE EMPLOYEE PLAN documented as of this encounter
[2020-03-06] MEDS ORDERED: NA CHLORIDE 0.9% 1,000 ML ONE (17:22)
[2020-03-06 17:26] LABS: Absolute Lymphocytes (CBC) 1.8 K/uL (0.7-4.9); Basophils % 0.7 % (0-1.3); Hematocrit 39.9 % (36.0-45.0); Lymphocytes % 23.3 % (15.3-44.8); MPV 8.1 fL (7.6-11.3); RBC Red Blood Cell Count 4.49 M/uL (3.86-4.86)
[2020-03-06 17:29] LABS: Protime INR 1.12
--- NOTE | 2020-03-06 17:51 | RAD REPORT ---
EXAM DESCRIPTION: RAD - Chest Single View - 03/06/2020 5:24 pm CLINICAL HISTORY: CHEST PAIN COMPARISON: None TECHNIQUE: AP portable chest image was obtained 03/06/2020 5:24 pm . FINDINGS: Lungs are clear. Heart and vasculature are normal. No measurable pleural effusion and no p neumothorax. No acute bony abnormality seen. No acute aortic findings suspected. IMPRESSION: No acute cardiopulmonary process.
[2020-03-06 17:54] LABS: ALT/SGPT 23 U/L (12-78); AST/SGOT 10 U/L (15-37); Albumin 3.7 g/dL (3.4-5.0); Alkaline Phosphatase 58 U/L (45-117); BUN Blood Urea Nitrogen 10 mg/dL (7-18); Bicarbonate 28 mmol/L (21-32); Bilirubin Direct 0.1 mg/dL (0-0.2); Bilirubin Total 0.5 mg/dL (0.2-1.0); Glucose Level 140 mg/dL (74-106); Magnesium 2.4 mg/dL (1.8-2.4); NT PRO-BNP 13 pg/mL (<125); Potassium 3.5 mmol/L (3.5-5.1); Protein, Total 7.6 g/dL (6.4-8.2); Sodium Level 140 mmol/L (136-145); Troponin (Emerg Dept Use Only) < 0.02 ng/mL (0.0-0.045)
[2020-03-06] MEDS ORDERED: ACETAMINOPHEN 500 MG TAB ONE (17:58)
--- NOTE | 2020-03-06 18:19 | RAD REPORT ---
EXAM DESCRIPTION: CT - Head Brain Wo Cont - 03/06/2020 6:11 pm CLINICAL HISTORY: WEAKNESS, hypertension, COMPARISON: Head Brain Wo Cont dated 03/15/2017 TECHNIQUE: Axial 5 mm thick images of the head were obtained without IV contrast. All CT scans are performed using dose optimization technique as appropriate and may include automated exposure control or mA/KV adjustment according to patient size. FINDINGS: No intracranial hemorrhage, mass, edema or shift of mid-line structures. No acute infarcti on changes seen. No abnormal extra-axial fluid collections. Ventricles are normal. Mastoid air cells and visualized portions of the paranasal sinuses are clear. No acute bony findings. IMPRESSION: Negative non-contrast CT head examination.
[2020-03-06] MEDS ORDERED: KETOROLAC 30 MG/ML INJ ONE (19:25)
[2020-03-06 20:07] LABS: Urine Blood NEGATIVE (NEG); Urine Glucose NEGATIVE (NEG); Urine Protein NEGATIVE (NEG); Urine Specific Gravity 1.025 (1.005-1.030); Urine pH 7.5 (5.0-7.0)
--- NOTE | 2020-03-06 21:01 | EDPHYS ---
Physician Documentation [facility] Name: Octavia Lo Age: 39 yrs Sex: Female : 1980 Arrival Date: 03/06/2020 Time: 16:19 Bed 16 Private MD: ED Physician Zeyad Rivera HPI: 03/06 16:40 This 39 yrs old Female presents to ER via Wheelchair with complaints of Chest cp Pain, Blood Pressure Problem. 16:40 The patient has elevated blood pressure and discovered this at a physician's office, cp and sent to the emergency department for evaluation. Onset: The symptoms/episode began/occurred today. 16:40 Associated signs and symptoms: Pertinent positives: chest pain, lightheadedness, cp weakness. 16:40 Patient reports she was at physician's office today to have dental procedure performed cp when she was told her blood pressure was elevated. Patient admits to being diagnosed with high blood pressure but not taking medication. Patient reports she was given valium and sedative gas but procedure was canceled due to blood pressure. Patient reports she returned home and took blood pressure medication, then started having chest pain. Patient checked blood pressure and found it to be low. Denies passing out. Historical: - Allergies: 16:32 Codeine; ss 16:32 Percocet; ss 16:32 Phenergan; ss 16:32 Reglan; ss - PMHx: 16:32 "I had a blood clot to right side of head"; Hypertension; Kidney stones; ss - PSHx: 16:32 Fibroid removed from breast; Carpal Tunnel Repair; ss - Immunization history:: Adult Immunizations up to date. - Social history:: Smoking status: Patient denies any tobacco usage or history of. ROS: 16:43 Constitutional: Negative for body aches, chills, fever, poor PO intake. cp 16:43 Eyes: Negative for injury, pain, redness, and discharge. cp 16:43 ENT: Negative for ear pain, sore throat, difficulty swallowing, difficulty handling secretions. 16:43 Cardiovascular: Positive for chest pain, Negative for edema, palpitations. 16:43 Respiratory: Negative for cough, shortness of breath, wheezing. 16:43 Abdomen/GI: Negative for abdominal pain, nausea, vomiting, and diarrhea. 16:43 : Negative for urinary symptoms. 16:43 Neuro: Positive for dizziness, near syncope, weakness, Negative for altered mental status, numbness, syncope. 16:43 All other systems are negative. Exam: 16:45 ECG was reviewed by the Attending Physician. cp 16:50 Constitutional: The patient appears in no acute distress, alert, awake, cp non-diaphoretic, non-toxic, well developed, well nourished. 16:50 Head/Face: Normocephalic, atraumatic. cp 16:50 Eyes: Periorbital structures: appear normal, Conjunctiva: normal, no exudate, no injection, Sclera: no appreciated abnormality, Lids and lashes: appear normal, bilaterally. 16:50 ENT: External ear(s): are unremarkable, Nose: is normal, Mouth: Lips: moist, Oral mucosa: moist, Posterior pharynx: Airway: no evidence of obstruction, patent. 16:50 Neck: ROM/movement: is normal, is supple, without pain, no range of motions limitations. 16:50 Chest/axilla: Inspection: normal, Palpation: is normal, no crepitus, no tenderness. 16:50 Cardiovascular: Rate: normal, Rhythm: regular, Heart sounds: murmur, not appreciated, Edema: is not appreciated, JVD: is not appreciated. 16:50 Respiratory: the patient does not display signs of respiratory distress, Respirations: normal, no use of accessory muscles, no retractions, labored breathing, is not present, Breath sounds: are clear throughout, no decreased breath sounds. 16:50 Abdomen/GI: Inspection: abdomen appears normal, Palpation: abdomen is soft and non-tender, in all quadrants. 16:50 Back: pain, is absent, ROM is normal. 16:50 Neuro: Orientation: to person, place \\T\\ time. Mentation: is normal, Cerebellar function: is grossly normal, Motor: moves all fours, strength is normal, Sensation: is normal. Vital Signs: 16:29 BP 126 / 94; Pulse 101; Resp 17; Temp 98.5(TE); Pulse Ox 99% on R/A; Weight 99.79 kg; ss Height 5 ft. 5 in. (165.10 cm); Pain 5/10; 18:07 BP 112 / 83; Pulse 77; Resp 17; Pulse Ox 99% on R/A; ll1 19:15 BP 122 / 83; Pulse 79; Resp 18; Pulse Ox 98% ; Pain 7/10; cr4 20:15 BP 116 / 78; Pulse 72; Resp 19; Pain 7/10; cr4 21:00 BP 117 / 84; Pulse 76; Resp 18; Temp 98.6; Pulse Ox 99% ; Pain 3/10; cr4 16:29 Body Mass Index 36.61 (99.79 kg, 165.10 cm) ss MDM: 16:34 Patient medically screened. cp 21:00 Data reviewed: vital signs, nurses notes, lab test result(s), EKG, radiologic studies, cp plain films. 21:00 Differential diagnosis: hypertensive crisis, CVA, intracerebral hemorrhage. Test cp interpretation: by ED physician or midlevel provider: ECG, plain radiologic studies. Counseling: I had a detailed discussion with the patient and/or guardian regarding: the historical points, exam findings, and any diagnostic results supporting the discharge/admit diagnosis, lab results, radiology results, the need for outpatient follow up, a family practitioner, to return to the emergency department if symptoms worsen or persist or if there are any questions or concerns that arise at home. Response to treatment: the patient's symptoms have markedly improved after treatment, and as a result, I will discharge patient. ED course: VSS. Patient reports symptoms improved with IV fluids and meds. Will discharge to home for continued monitoring. 03/06 16:46 Order name: Basic Metabolic Panel; Complete Time: 18:05 03/06 18:06 Interpretation: Normal except: GLUC 140. 03/06 16:46 Order name: CBC with Diff; Complete Time: 18:05 03/06 16:46 Order name: LFT's; Complete Time: 18:05 03/06 18:06 Interpretation: Normal except: AST 10; GLOB 3.9; A/G 0.9. 03/06 16:46 Order name: Magnesium; Complete Time: 18:05 03/06 16:46 Order name: NT PRO-BNP; Complete Time: 18:05 03/06 16:46 Order name: PT-INR; Complete Time: 18:05 03/06 16:46 Order name: Troponin (emerg Dept Use Only); Complete Time: 18:06 03/06 18:06 Interpretation: TROPED < 0.02; Reviewed. 03/06 16:46 Order name: XRAY Chest (1 view); Complete Time: 18:06 03/06 17:55 Order name: CT Head Brain wo Cont; Complete Time: 18:28 03/06 18:29 Interpretation: Report reviewed. 03/06 19:27 Order name: Urine Dipstick--Ancillary (enter results); Complete Time: 20:39 mw2 03/06 19:27 Order name: Urine --Ancillary (enter results); Complete Time: 20:40 mw2 03/06 20:03 Order name: Troponin I 03/06 16:46 Order name: EKG; Complete Time: 16:46 03/06 16:46 Order name: Cardiac monitoring; Complete Time: 16:48 03/06 16:46 Order name: EKG - Nurse/Tech; Complete Time: 16:48 03/06 16:46 Order name: IV Saline Lock; Complete Time: 17:05 03/06 16:46 Order name: Labs collected and sent; Complete Time: 16:48 03/06 16:46 Order name: O2 Per Protocol; Complete Time: 16:48 03/06 16:46 Order name: O2 Sat Monitoring; Complete Time: 16:48 cp EC:45 Rate is 90 beats/min. Rhythm is regular. SC interval is normal. QRS interval is normal. cp QT interval is normal. T waves are Inverted in lead aVR. Interpreted by me. Reviewed by me. Administered Medications: 17:17 Drug: NS 0.9% 1000 ml Route: IV; Rate: 1 bolus; Site: left antecubital; ll1 18:08 Follow up: Response: No adverse reaction; RASS: Alert and Calm (0); IV Status: ll1 Completed infusion; IV Intake: 1000ml 17:49 Drug: Tylenol 1000 mg Route: PO; ll1 18:07 Follow up: Response: No adverse reaction; Pain is decreased; RASS: Alert and Calm (0) ll1 19:25 Drug: TORadol - Ketorolac 15 mg Route: IVP; Site: left antecubital; cr4 19:40 Follow up: Response: Pain is decreased cr4 20:54 Follow up: Response: No adverse reaction; Pain is decreased cr4 21:09 Drug: Decadron - Dexamethasone 10 mg Route: IVP; Site: left antecubital; cr4 21:26 Follow up: Response: No adverse reaction cr4 21:09 Drug: Benadryl 25 mg Route: IVP; Site: left antecubital; cr4 21:26 Follow up: Response: No adverse reaction cr4 Disposition: 03/06/20 21:00 Discharged to Home. Impression: Headache, Chest pain, unspecified. - Condition is Stable. - Discharge Instructions: Nonspecific Chest Pain, General Headache Without Cause, How to Take Your Blood Pressure, Ttet-fv-Dtyw, Aspirin and Your Heart, Form - Blood Pressure Record Sheet. - Prescriptions for Fiorinal 50- 325-40 mg Oral Capsule - take 1 capsule by ORAL route every 4 hours As needed - not to exceed 6 capsules per day; 20 capsule. - Medication Reconciliation Form, Thank You Letter, Antibiotic Education, Prescription Opioid Use form. - Follow up: Private Physician; When: 2 - 3 days; Reason: Recheck today's complaints. - Problem is new. - Symptoms have improved. Addendum: 03/08/2020 07:33 Co-signature as Attending Physician, Zeyad Rivera MD. r n Signatures: Dispatcher [employer] EDMS Kimberly Thompson RN RN cr4 Zeyad Rivera MD MD rn Smirch, Shelby, RN RN ss Page, Corey, PA PA cp Mei Dietrich RN RN ll1 Corrections: (The following items were deleted from the chart) 03/06 21:01 21:00 03/06/2020 21:00 Discharged to Home. Impression: Headache; Other chest pain. cp Condition is Stable. Forms are Medication Reconciliation Form, Thank You Letter, Antibiotic Education, Prescription Opioid Use. Follow up: Private Physician; When: 2 - 3 days; Reason: Recheck today's complaints. Problem is new. Symptoms have improved. cp 21:26 21:01 03/06/2020 21:00 Discharged to Home. Impression: Headache; Chest pain, cr4 unspecified. Condition is Stable. Discharge Instructions: Nonspecific Chest Pain, General Headache Without Cause, How to Take Your Blood Pressure, Asox-ki-Gsew, Aspirin and Your Heart, Form - Blood Pressure Record Sheet. Forms are Medication Reconciliation Form, Thank You Letter, Antibiotic Education, Prescription Opioid Use. Follow up: Private Physician; When: 2 - 3 days; Reason: Recheck today's complaints. Problem is new. Symptoms have improved. cp 03/07 19:49 03/06 16:40 Patient reports she was at physician's office today to have dental cp procedure performed when she was told her blood pressure was elevated. Patient admits to being diagnosed with high blood pressure but not taking medication. Patient reports she was given valium and sedative gas but procedure was canceled due to blood pressure. cp
--- NOTE | 2020-03-06 21:01 | ER ---
Nurse's Notes [facility] Name: Octavia Lo Age: 39 yrs Sex: Female : 1980 Arrival Date: 03/06/2020 Time: 16:19 Bed 16 Private MD: Diagnosis: Headache;Chest pain, unspecified Presentation: 03/06 16:29 Chief complaint: Patient states: Supposed to have oral surgery today, but was told that ss her BP was too high and given BP machine to take home to self monitor. Pt reports that she took a dose of her Losartan/HCTZ and after that started feeling weak, having chest discomfort and headache. At home BP readings were 80/64 and 93/31. Coronavirus screen: Client denies travel out of the [place] in the last 14 days. Ebola Screen: Patient denies exposure to infectious person. Patient denies travel to an Ebola-affected area in the 21 days before illness onset. Initial Sepsis Screen: Does the patient meet any 2 criteria? No. Patient's initial sepsis screen is negative. Does the patient have a suspected source of infection? No. Patient's initial sepsis screen is negative. Risk Assessment: Do you want to hurt yourself or someone else? Patient reports no desire to harm self or others. Onset of symptoms was March 06, 2020. 16:29 Method Of Arrival: Wheelchair ss 16:29 Acuity: ONUR 3 ss Historical: - Allergies: 16:32 Codeine; ss 16:32 Percocet; ss 16:32 Phenergan; ss 16:32 Reglan; ss - PMHx: 16:32 "I had a blood clot to right side of head"; Hypertension; Kidney stones; ss - PSHx: 16:32 Fibroid removed from breast; Carpal Tunnel Repair; ss - Immunization history:: Adult Immunizations up to date. - Social history:: Smoking status: Patient denies any tobacco usage or history of. Screenin:08 Abuse screen: Denies threats or abuse. Nutritional screening: No deficits noted. ll1 Tuberculosis screening: No symptoms or risk factors identified. Fall Risk IV access (20 points). Total Thomas Fall Scale indicates No Risk (0-24 pts). Assessment: 16:45 General: Appears distressed, Behavior is calm, cooperative, appropriate for age. Pain: ll1 Complains of pain in head Pain does not radiate. Quality of pain is described as aching, Pain began 1 day ago. 16:45 Neuro: Level of Consciousness is awake, alert, obeys commands, Oriented to person, ll1 place, time, situation, Appropriate for age Shell Sorter are equal bilaterally Moves all extremities. Full function Gait is steady, Speech is normal, Facial symmetry appears normal, Reports near syncope. Cardiovascular: Reports lightheadedness, nausea, syncope, Heart tones S1 S2 Capillary refill < 3 seconds Clubbing of nail beds is absent JVD is absent Patient's skin is warm and dry. Pulses are all present. Respiratory: No deficits noted. GI: Abdomen is flat, Bowel sounds present X 4 quads. Abd is soft and non tender X 4 quads. Reports nausea. 17:45 Reassessment: Patient and/or family updated on plan of care and expected duration. Pain ll1 level reassessed. Patient is alert, oriented x 3, equal unlabored respirations, skin warm/dry/pink. 18:45 Reassessment: Patient and/or family updated on plan of care and expected duration. Pain ll1 level reassessed. Patient is alert, oriented x 3, equal unlabored respirations, skin warm/dry/pink. 19:20 Reassessment: No changes from previously documented assessment. Patient and/or family cr4 updated on plan of care and expected duration. Pain level reassessed. Patient is alert, oriented x 3, equal unlabored respirations, skin warm/dry/pink. 20:15 Reassessment: Patient and/or family updated on plan of care and expected duration. Pain cr4 level reassessed. Patient is alert, oriented x 3, equal unlabored respirations, skin warm/dry/pink. Patient states feeling better. 21:00 Reassessment: Patient and/or family updated on plan of care and expected duration. Pain cr4 level reassessed. Patient is alert, oriented x 3, equal unlabored respirations, skin warm/dry/pink. reports increase in RUSHING again. notified Page PA.. Vital Signs: 16:29 BP 126 / 94; Pulse 101; Resp 17; Temp 98.5(TE); Pulse Ox 99% on R/A; Weight 99.79 kg; ss Height 5 ft. 5 in. (165.10 cm); Pain 5/10; 18:07 BP 112 / 83; Pulse 77; Resp 17; Pulse Ox 99% on R/A; ll1 19:15 BP 122 / 83; Pulse 79; Resp 18; Pulse Ox 98% ; Pain 7/10; cr4 20:15 BP 116 / 78; Pulse 72; Resp 19; Pain 7/10; cr4 21:00 BP 117 / 84; Pulse 76; Resp 18; Temp 98.6; Pulse Ox 99% ; Pain 3/10; cr4 16:29 Body Mass Index 36.61 (99.79 kg, 165.10 cm) ED Course: 16:19 Patient arrived in ED. mr 16:29 Arm band placed on left wrist. ss 16:31 Triage completed. ss 16:33 Sulaiman Alonzo PA is PHCP. cp 16:33 Zeyad Rivera MD is Attending Physician. cp 16:35 Mei Dietrich RN is Primary Nurse. ll1 16:45 Patient has correct armband on for positive identification. Bed in low position. Call ll1 light in reach. Side rails up X 1. 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 Pulse ox on. NIBP on. 16:45 Inserted saline lock: 22 gauge in left antecubital area, using aseptic technique. Blood ll1 collected. 17:24 XRAY Chest (1 view) In Process Unspecified. EDMS 18:11 CT Head Brain wo Cont In Process Unspecified. EDMS 20:45 Troponin I Sent. cr4 21:26 No provider procedures requiring assistance completed. cr4 21:26 IV discontinued, intact, bleeding controlled. Patient maintains SpO2 saturation greater cr4 than 95% on room air. Administered Medications: 17:17 Drug: NS 0.9% 1000 ml Route: IV; Rate: 1 bolus; Site: left antecubital; ll1 18:08 Follow up: Response: No adverse reaction; RASS: Alert and Calm (0); IV Status: ll1 Completed infusion; IV Intake: 1000ml 17:49 Drug: Tylenol 1000 mg Route: PO; ll1 18:07 Follow up: Response: No adverse reaction; Pain is decreased; RASS: Alert and Calm (0) ll1 19:25 Drug: TORadol - Ketorolac 15 mg Route: IVP; Site: left antecubital; cr4 19:40 Follow up: Response: Pain is decreased cr4 20:54 Follow up: Response: No adverse reaction; Pain is decreased cr4 21:09 Drug: Decadron - Dexamethasone 10 mg Route: IVP; Site: left antecubital; cr4 21:26 Follow up: Response: No adverse reaction cr4 21:09 Drug: Benadryl 25 mg Route: IVP; Site: left antecubital; cr4 21:26 Follow up: Response: No adverse reaction cr4 Intake: 18:08 IV: 1000ml; Total: 1000ml. ll1 Outcome: 21:00 Discharge ordered by MD. gera 21: Patient left the ED. cr4 21:26 Discharged to home ambulatory. cr4 21:26 Condition: stable 21:26 Discharge instructions given to patient, family, Instructed on discharge instructions, follow up and referral plans. medication usage, Demonstrated understanding of instructions, Prescriptions given X 1. Signatures: Dispatcher [employer] NABILAShannon Rousseau Kimberly Thompson RN RN cr4 Rylie Azul RN RN ss Page, Corey, PA PA cp Lewis, Lynsay, RN RN ll1 Corrections: (The following items were deleted from the chart) 03/07 04:07 04:03 No provider procedures requiring assistance completed. cr4 cr4
[2020-03-06] MEDS ORDERED: DIPHENHYDRAMINE 50 MG/ML VIAL ONE (21:13)
[2020-03-06] MEDS ORDERED: dexAMETHasone 10 MG/ML VIAL ONE (21:14)
[2020-03-07 08:12] VITALS: TEMP 98.5
[2020-03-07 08:15] VITALS: O2SAT 98
[2020-03-07 08:17] VITALS: BP 116/78
== END 2020-03-06 21:26 | disposition home or self-care (01) ==
LOC: ER 16:15
DX: R51.9 Headache, unspecified (principal); I10 Essential (primary) hypertension; Z88.5 Allergy status to narcotic agent; Z88.8 Allergy status to other drugs, medicaments and biological substances
CPT/HCPCS: 96361; 93005; 85025; 80048; 36415; 83735; 81025; 85610; 80076; 81003; 84484 ×2; 83880; 70450; 71045; 96375; 96374; 99285; J1200; J1100; J7030

== ENCOUNTER 2022-08-30 08:18 | Observation (INO) | payer BC ==
--- OUTSIDE RECORDS SUMMARY | 2022-08-30 08:32 | XMS REPORT | Continuity of Care Document ---
:1980 Author Organization [facility] t Address [address] [place] [address] Care Team Providers Name Role Phone Miya Olsen MD Primary Care Physician ABBEY ROTHMAN Attending Clinician Unavailable RADIOLOGY Attending Clinician Unavailable Radiology Attending Clinician Unavailable Doctor Unassigned, [place] Attending Clinician Unavailable Miya Olsen MD Attending Clinician Octavia Moy Attending Clinician MIYA OLSEN Attending Clinician Unavailable CAROLINA MAURICE Attending Clinician Unavailable Carolina Maurice DO Attending Clinician Pob, [facility] Main Attending Clinician Unavailable Nathaly Tomas PA-C Attending Clinician Only, Ang Db Test Attending Clinician Unavailable Chary Reich Attending Clinician CHARY MYERS Attending Clinician Unavailable NATHALY TOMAS Attending Clinician Unavailable NIKA BERRY Attending Clinician Unavailable Nika Berry MD Attending Clinician Mono Perea MD Attending Clinician Only, Adc Test Attending Clinician Unavailable Abbey Rothman MD Attending Clinician Eva Michael MD Attending Clinician EVA MICHAEL Attending Clinician Unavailable 1, [facility] Attending Clinician Unavailable Diann Garcia Attending Clinician 2, [facility] Attending Clinician Unavailable Bev Ghosh MD Attending Clinician RUSSELL OLVERA Attending Clinician Unavailable Nurse, [facility] Pob Immunization Attending Clinician Unavailable Russell Olvera DO Attending Clinician Vaccine, [facility] Family Attending Clinician Unavailable 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[employer], Fern Attending Clinician FERN EVANGELISTA Attending Clinician Unavailable Provider, [facility] Attending Clinician Unavailable Mary Rodrigues Attending Clinician MARY LINDO Attending Clinician Unavailable FESTUS MANUEL Attending Clinician Unavailable Karen Copeland Attending Clinician Ramirez Fink MD Attending Clinician GEORGE GIL Attending Clinician Unavailable Lab, [facility] Fam Pob I Attending Clinician Unavailable 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 [employer]ELOPMENT, George Attending Clinician Rolly ZAMUDIO, Sherley K Attending Clinician Unavailable Rigoberto Diez MD Attending Clinician Kevin Valadez MD Attending Clinician Betito Weinberg Attending Clinician Cristi Hayes MD Attending Clinician Eren Espinoza PT, Carmen Attending Clinician Unavailable ABBEY ROTHMAN Admitting Clinician Unavailable MIYA OLSEN Admitting Clinician Unavailable NIKA BERRY Admitting Clinician Unavailable Nika Berry MD Admitting Clinician Abbey Rothman MD Admitting Clinician MARY LINDO Admitting Clinician Unavailable Payers Payer Name Policy Type Policy Number Effective Date Expiration Date Lanie osborne [facility] [id number] 2017 EMPLOYEE PLAN 00:00:00 Problems Condition Condition Condition Status Onset Resolution Last Treating Co mments Source Name Details Category Date Date Treatment Clinician Date Lumbar Lumbar Disease Active Univers radiculopa radiculopa 2-17 it y of thy, thy, 00:00: [place] chronic chronic 00 Medical Branch Primary Primary Disease Active Univers osteoarthr osteoarthr 2-17 it y of itis of itis of 00:00: [place] right knee right knee 00 Il dical Branch Bakers Bakers Disease Active 2021-04 Univers cyst, cyst, 0-13 ity of right right 00:00: [place] 00 Medical Branch Chronic Chronic Disease Active Univers neck pain neck pain 9-08 ity of 00:00: [place] 00 Medical Branch Prediabete Prediabete Disease Active U nivers s s 9-08 ity of 00:00: [place] 00 Medical Branch Hidradenit Hidradenit Disease Active U nivers is is 8-24 ity of suppurativ suppurativ 00:[place] a a 00 [place] Numbness Numbness Disease Active Unive rs and and 8-24 ity of tingling tingling 00:00: [place] of right of right 00 Medica l arm and arm and Branch leg leg Chronic Chronic Disease Active Univers pain of pain of 8-24 ity of right knee right [place] 00:[place] 00 [place] Right Right Disease Active Univers sided sided 8-24 ity of sciatica sciatica 00:00: [place] 00 Medical Branch Chronic Chronic Disease Active Univers pain of pain of 8-24 ity of both both 00:00: [place] shoulders shoulders 00 [facility] Branch Degenerati Degenerati Disease Active U nivers ve disc ve disc 8-24 ity of disease at disease at 00:[place] L5-S1 L5-S1 00 Medical level level Branch Arthritis, Arthritis, Disease Active U nivers multiple multiple 8-24 ity of joint joint 00:00: [place] involvemen involvemen 00 Il dical t t Branch Chronic Chronic Disease Active Univers pain of pain of 8-24 ity of both both 00:00: [place] shoulders shoulders 00 [facility] Branch Status Status Disease Active Univers post post 1-20 ity of hysterosco hysterosco 00:00: [place] py py 00 Medical Branch Elevated Elevated Disease Active Unive rs TSH TSH -19 ity of 00:00: [place] [facility] Encounter Encounter Disease Active Uni vers for weight for weight -19 it y of management management 00:00: [place] 00 [facility] Chronic Chronic Disease Active Univers bilateral bilateral 19 ity of low back low back 00:00: [place] pain with pain with 00 Medi lonny right-side right-side Br anch d sciatica d sciatica Spondylosi Spondylosi Disease Active U nivers s of s of 05-05 ity of lumbar lumbar 00:00: [place] region region 00 Medical without without Branch myelopathy myelopathy or or radiculopa radiculopa thy thy Rectal Rectal Disease Active 2020-04 Overview: Univer s bleeding bleeding 11 Formattin ity of 00:00: g of this note Medical might be Branch different from the original. Added automatic ally from request for surgery [id number] Blood Blood Disease Active 2020-04 Univers clots in clots in 0-06 ity of stool stool 00:00: [place] 00 Medical Branch Lower Lower Disease Active 2020-04 Univers abdominal abdominal 0-06 ity of pain pain 00:00: [place] 00 Medical Branch BMI BMI Disease Active 2020-04 Univers 39.0-39.9, 39.0-39.9, 0-06 it y of adult adult 00:00: [place] 00 Medical Branch Gastroesop Gastroesop Disease Active 2019-04 U nivers hageal hageal 0-06 ity of reflux reflux 00:00: [place] disease disease 00 Medical without without Branch esophagiti esophagiti s s Anxiety Anxiety Disease Active 2019-04 Univers 0-06 ity of 00:00: [place] 00 Medical Branch Non-season Non-season Disease Active U nivers al al 9-16 ity of allergic allergic 00:00: [place] rhinitis rhinitis 00 Medica l due to due to Branch other other allergic allergic trigger trigger Acute Acute Disease Active Univers maxillary maxillary 9-16 ity of sinusitis, sinusitis, 00:00: [place] recurrence recurrence 00 Me dical not not Branch specified specified URI with URI with Disease Active Unive rs cough and cough and 9-16 ity of congestion congestion 00:00: [place] 00 [facility] Hypertensi Hypertensi Disease Active U nivers ve urgency ve urgency 12-31 it y of 00:00: [place] 00 Medical Branch Non Non Disease Active Univers compliance compliance 12-31 it y of w w 00:00: [place] medication medication 00 Me dical regimen regimen Branch Essential Essential Disease Active Uni vers hypertensi hypertensi 01-14 it y of on on 00:00: [place] [facility] Renal Renal Disease Active Univers stones stones 01-14 ity of 00:00: [place] [facility] Hepatomega Hepatomega Disease Active U nivers ly ly 01-14 ity of 00:00: [place] [facility] Allergies, Adverse Reactions, Alerts Allergy Allergy Status Severity Reaction(s) Onset Inactive Treating Comm ents Source Name Type Date Date Clinician Codeine Propensi Active Shortness of 2016-04 U nivers ty to Breath 05-18 ity of adverse 00:00: [place] reaction 00 [facility] Oxycodon Propensi Active Itching 2016-04 Unive rs e-Acetam ty to 2 ity of inophen adverse 00:00: [place] reaction 00 [facility] Prometha Propensi Active Other - See 2016-04 convulsi o Univers zine Hcl ty to comments 2- ns ity of adverse 00:00: [place] reaction 00 [facility] Metoclop Propensi Active Unknown - 2016-04 Convulsio Univers ramide ty to See comments 2- n ity of Hcl adverse 00:00: [place] reaction 00 [facility] PROMETHA DRUG Active High Other-Cmnt 2016-04 Univ ers ZINE HCL INGREDI 05-18 ity of 00:00: [place] 00 Medical [place] METOCLOP DRUG Active High Unknown-Cmnt 2016-04 Un [place] RAMIDE INGREDI 05-18 ity of HCL 00:00: [place] 00 Medical Branch CODEINE DRUG Active SOB 2016-04 Univers INGREDI 05-18 ity of 00:00: [place] 00 Medical Branch OXYCODON DRUG Active ITCHING 2016-04 Univers E-ACETAM 05-18 ity of INOPHEN 00:00: [place] 00 Medical Branch Social History Social Habit Start Date Stop Date Quantity Comments Source Exposure to 2022-08-02 2022-08-12 Not sure University of SARS-CoV-2 00:00:00 11:17:00 [facility] (event) [place] Alcohol intake 2022-06-04 2022-06-04 Current University of 00:00:00 00:00:00 non-drinker of [place] [facility] alcohol (finding) [place] Tobacco use and 2021-12-23 2021-12-23 Smokeless tobacco Un iversity of exposure 00:00:00 00:00:00 non-user [facility] Sex Ass[birth year] At [birth year] Universit y of 00:00:00 00:00:00 [facility] Smoking Status Start Date Stop Date Source Never smoked tobacco [facility] Medications Ordered Filled Start Stop Current Ordering Indication Dosage Frequency Signature Comments Components Source Medication Medication Date Date Medication? Clinician (SIG) Name Name FLUOXETINE Yes [id number] TAKE ONE Univers 20 mg 5-10 (1) ity of capsule 00:00[place] [facility] MORNING. MOUNDANIELRO 5 Yes [id number] INJECT Univers mg/0.5 mL 5-10 FIVE (5) ity of PnIj 00:00: MG INTO [place] [address] SKIN ONCE Medical WEEKLY. Branch FLUOXETINE Yes [id number] TAKE ONE Univers 20 mg 5-10 (1) ity of capsule 00:00: [place] [facility] MORNING. MOUNDANIELRO 5 Yes [id number] INJECT Univers mg/0.5 mL 5-10 FIVE (5) ity of PnIj 00:00: MG INTO [place] [address] SKIN ONCE Medical WEEKLY. Branch FLUOXETINE Yes [id number] TAKE ONE Univers 20 mg 5-10 (1) ity of capsule 00:00: [place] [facility] MORNING. MOUNJARO 5 Yes [id number] INJECT Univers mg/0.5 mL 5-10 FIVE (5) ity of PnIj 00:00: MG INTO [place] [address] SKIN ONCE Medical WEEKLY. [place] FLUOXETINE Yes [id number] TAKE ONE Univers 20 mg 5-10 (1) ity of capsule 00:00: [place] [facility] MORNING. MOUNJARO 5 Yes [id number] INJECT Univers mg/0.5 mL 5-10 FIVE (5) ity of PnIj 00:00: MG INTO [place] 00 SKIN ONCE Medical WEEKLY. Branch FLUOXETINE 2022-0 Yes [id number] TAKE ONE Univers 20 mg 5-10 (1) ity of capsule 00:00: [place]TH IN Medical THE Branch MORNING. MOUNJARO 5 2022-0 Yes [id number] INJECT Univers mg/0.5 mL 5-10 FIVE (5) ity of PnIj 00:00: MG INTO [place] 00 SKIN ONCE Medical WEEKLY. Branch PANTOPRAZOL 2022-0 Yes [id number] TAKE ONE Univers E 20 mg EC 5-03 (1) ity of tablet 00:00: TABLET(S) [place] 00 BY MOUTH Medical ONCE A Branch DAY. LEVOTHYROXI 2022-0 Yes [id number] TAKE ONE Univers NE 25 mcg 5-03 (1) TABLET ity of tablet 00:00: BY MOUTH [place] 00 EVERY Medical MORNING. Branch PANTOPRAZOL 2022-0 Yes [id number] TAKE ONE Univers E 20 mg EC 5-03 (1) ity of tablet 00:00: TABLET(S) [place] 00 BY MOUTH Medical ONCE A Branch DAY. LEVOTHYROXI 2022-0 Yes [id number] TAKE ONE Univers NE 25 mcg 5-03 (1) TABLET ity of tablet 00:00: BY MOUTH [place] 00 EVERY Medical MORNING. Branch PANTOPRAZOL 2022-0 Yes [id number] TAKE ONE Univers E 20 mg EC 5-03 (1) ity of tablet 00:00: TABLET(S) [place] 00 BY MOUTH Medical ONCE A Branch DAY. LEVOTHYROXI 2022-0 Yes [id number] TAKE ONE Univers NE 25 mcg 5-03 (1) TABLET ity of tablet 00:00: BY MOUTH [place] 00 EVERY Medical MORNING. Branch PANTOPRAZOL 2022-0 Yes [id number] TAKE ONE Univers E 20 mg EC 5-03 (1) ity of tablet 00:00: TABLET(S) [place] 00 BY MOUTH Medical ONCE A Branch DAY. LEVOTHYROXI 3-0 Yes [id number] TAKE ONE Univers NE 25 mcg 5-03 (1) TABLET ity of tablet 00:00: BY MOUTH [place] 00 EVERY Medical MORNING. Branch PANTOPRAZOL 2022-0 Yes [id number] TAKE ONE Univers E 20 mg EC 5-03 (1) ity of tablet 00:00: TABLET(S) [place] 00 BY MOUTH Medical ONCE A Branch DAY. LEVOTHYROXI 2022-0 Yes [id number] TAKE ONE Univers NE 25 mcg 5-03 (1) TABLET ity of tablet 00:00: BY MOUTH [place] 00 EVERY Medical MORNING. Branch PANTOPRAZOL 0 Yes [id number] TAKE ONE Univers E 20 mg EC 5-03 (1) ity of tablet 00:00: TABLET(S) [place] 00 BY MOUTH Medical ONCE A Branch DAY. LEVOTHYROXI 2022-0 Yes [id number] TAKE ONE Univers NE 25 mcg 5-03 (1) TABLET ity of tablet 00:00: BY MOUTH [place] 00 EVERY Medical MORNING. Branch LEVOTHYROXI Yes [id number] TAKE ONE Univers NE 25 mcg 4-06 (1) TABLET ity of tablet 00:00: BY MOUTH [place] 00 EVERY Medical MORNING. Branch LEVOTHYROXI 2022-2022- No [id number] TAKE ONE Univers NE 25 mcg 4-06 05-03 (1) TABLET ity of tablet 00:00: 00:00 BY MOUTH [place] 00 :00 EVERY Medical MORNING. Branch MOUNJARO 5 Yes [id number] INJECT Univers mg/0.5 mL 3-23 FIVE (5) ity of PnIj 00:00: MG 00 [facility] WEEKLY. MOUNJARO 5 Yes [id number] INJECT Univers mg/0.5 mL 3-23 FIVE (5) ity of PnIj 00:00: MG [place] 00 [facility] WEEKLY. MOUNJARO 5 Yes [id number] INJECT Univers mg/0.5 mL 3-23 FIVE (5) ity of PnIj 00:00: MG [place] 00 [facility] WEEKLY. MOUNJARO 5 2022- No [id number] INJECT Univers mg/0.5 mL 3-23 05-10 FIVE (5) ity o f PnIj 00:00: 00:00 MG [place] 00 :00 [facility] WEEKLY. LEVOTHYROXI 2022-0 Yes [id number] TAKE ONE Univers NE 25 mcg 3-09 (1) TABLET ity of tablet 00:00: BY MOUTH [place] 00 EVERY Medical MORNING. Branch LEVOTHYROXI 2022-0 Yes [id number] TAKE ONE Univers NE 25 mcg 3-09 (1) TABLET ity of tablet 00:00: BY MOUTH [place] 00 EVERY Medical MORNING. Branch LEVOTHYROXI 2022-0 Yes [id number] TAKE ONE Univers NE 25 mcg 3-09 (1) TABLET ity of tablet 00:00: BY MOUTH [place] 00 EVERY Medical MORNING. Branch LEVOTHYROXI 2022-0 2022- No [id number] TAKE ONE Univers NE 25 mcg 3-09 04-06 (1) TABLET ity of tablet 00:00: 00:00 BY MOUTH [place] 00 :00 EVERY Medical MORNING. Branch MOUNJARO 5 0 Yes [id number] INJECT Univers mg/0.5 mL 2-27 FIVE (5) ity of PnIj 00:00: MG [place] 00 [facility] WEEKLY. MOUNJARO 5 2022-0 Yes [id number] INJECT Univers mg/0.5 mL 2-27 FIVE (5) ity of PnIj 00:00: MG [place] 00 [facility] WEEKLY. MOUNJARO 5 0 Yes [id number] INJECT Univers mg/0.5 mL 2-27 FIVE (5) ity of PnIj 00:00: MG [place] 00 [facility] WEEKLY. MOUNJARO 5 0 2022- No [id number] INJECT Univers mg/0.5 mL 2-27 03-23 FIVE (5) ity o f PnIj 00:00: 00:00 MG [place] 00 :00 [facility] WEEKLY. PANTOPRAZOL 2022-0 Yes [id number] TAKE ONE Univers E 20 mg EC 2-23 (1) ity of tablet 00:00: TABLET(S) [place] 00 BY [facility] Medical ONCE A Branch DAY. PANTOPRAZOL 2022-0 Yes [id number] TAKE ONE Univers E 20 mg EC 2-23 (1) ity of tablet 00:00: TABLET(S) [place] 00 BY MOUTH Medical ONCE A Branch DAY. PANTOPRAZOL 2022-0 Yes [id number] TAKE ONE Univers E 20 mg EC 2-23 (1) ity of tablet 00:00: TABLET(S) [place] 00 BY MOUTH Medical ONCE A Branch DAY. PANTOPRAZOL 2023-0 Yes [id number] TAKE ONE Univers E 20 mg EC 2-23 (1) ity of tablet 00:00: TABLET(S) [place] 00 BY MOUTH Medical ONCE A Branch DAY. PANTOPRAZOL 2023-0 Yes [id number] TAKE ONE Univers E 20 mg EC 2-23 (1) ity of tablet 00:00: TABLET(S) [place] 00 BY MOUTH Medical ONCE A Branch DAY. PANTOPRAZOL 2023-0 Yes [id number] TAKE ONE Univers E 20 mg EC 2-23 (1) ity of tablet 00:00: TABLET(S) [place] 00 BY MOUTH Medical ONCE A Branch DAY. PANTOPRAZOL 2023-0 2023- No [id number] TAKE ONE Univers E 20 mg EC 2-23 05-03 (1) ity of tablet 00:00: 00:00 TABLET(S) [place] 00 :00 BY MOUTH Medical ONCE A Branch DAY. losartan-hy 202-0 Yes [id number] 1{tbl} Take 1 Univers drochloroth 2-17 tablet by ity of iazide 00:00: mouth in [place] 50-12.5 mg 00 the Medical per tablet morning. [facility] h losartan-hy 2023-0 Yes [id number] 1{tbl} Take 1 Univers drochloroth 2-17 tablet by ity of iazide 00:00: mouth in [place] 50-12.5 mg 00 the Medical per tablet morning. [facility] h losartan-hy 2023-0 Yes [id number] 1{tbl} Take 1 Univers drochloroth 2-17 tablet by ity of iazide 00:00: mouth in [place] 50-12.5 mg 00 the Medical per tablet morning. [facility] h losartan-hy 2023-0 Yes [id number] 1{tbl} Take 1 Univers drochloroth 2-17 tablet by ity of iazide 00:00: mouth in [place] 50-12.5 mg 00 the Medical per tablet morning. Bran h losartan-hy 2023-0 Yes [id number] 1{tbl} Take 1 Univers drochloroth 2-17 tablet by ity of iazide 00:00: mouth in [place] 50-12.5 mg 00 the Medical per tablet morning. Bran h losartan-hy 2023-0 Yes [id number] 1{tbl} Take 1 Univers drochloroth 2-17 tablet by ity of iazide 00:00: mouth in [place] 50-12.5 mg 00 the Medical per tablet morning. [facility] losartan-hy 2022-0 Yes [id number] 1{tbl} Take 1 Univers drochloroth 2-17 tablet by ity of iazide 00:00: mouth in [place] 50-12.5 mg 00 the Medical per tablet morning. [facility] losartan-hy 2022-0 Yes [id number] 1{tbl} Take 1 Univers drochloroth 2-17 tablet by ity of iazide 00:00: mouth in [place] 50-12.5 mg 00 the Medical per tablet morning. [facility] losartan-hy 2022-0 Yes [id number] 1{tbl} Take 1 Univers drochloroth 2-17 tablet by ity of iazide 00:00: mouth in [place] 50-12.5 mg 00 the Medical per tablet morning. [facility] losartan-hy 2022-0 Yes [id number] 1{tbl} Take 1 Univers drochloroth 2-17 tablet by ity of iazide 00:00: mouth in [place] 50-12.5 mg 00 the Medical per tablet morning. [facility] losartan-hy 2022-0 Yes [id number] 1{tbl} Take 1 Univers drochloroth 2-17 tablet by ity of iazide 00:00: mouth in [place] 50-12.5 mg 00 the Medical per tablet morning. [facility] losartan-hy 2022-0 Yes [id number] 1{tbl} Take 1 Univers drochloroth 2-17 tablet by ity of iazide 00:00: mouth in [place] 50-12.5 mg 00 the Medical per tablet morning. [facility] losartan-hy 3-0 Yes [id number] 1{tbl} Take 1 Univers drochloroth 2-17 tablet by ity of iazide 00:00: mouth in [place] 50-12.5 mg 00 the Medical per tablet morning. [facility] losartan-hy 3-0 Yes [id number] 1{tbl} Take 1 Univers drochloroth 2-17 tablet by ity of iazide 00:00: mouth in [place] 50-12.5 mg 00 the Medical per tablet morning. [facility] losartan-hy Yes [id number] 1{tbl} Take 1 Univers drochloroth 2-17 tablet by ity of iazide 00:00: mouth in [place] 50-12.5 mg 00 the Medical per tablet morning. [facility] losartan-hy Yes [id number] 1{tbl} Take 1 Univers drochloroth 2-17 tablet by ity of iazide 00:00: mouth in [place] 50-12.5 mg 00 the Medical per tablet morning. [facility] LOSARTAN-HY Yes [id number] TAKE ONE Univers DROCHLOROTH 2-13 (1) ity of IAZIDE 00:00: TABLET(S) [place] 50-12.5 mg 00 BY MOUTH Medic al per tablet ONCE A Branch DAY. LOSARTAN-HY 2022- No [id number] TAKE ONE Univers DROCHLOROTH 2-13 02-17 (1) ity of IAZIDE 00:00: 00:00 TABLET(S) [place] 50-12.5 mg 00 :00 BY MOUTH Medic al per tablet ONCE A Branch DAY. LOSARTAN-HY 2022- No [id number] TAKE ONE Univers DROCHLOROTH 2-13 -17 (1) ity of IAZIDE 00:00: 00:00 TABLET(S) [place] 50-12.5 mg 00 :00 BY MOUTH Medic al per tablet ONCE A Branch DAY. tirzepatide Yes [id number] 5mg inject 5 Univers (MOUNJARO) 1-26 mg under ity o f 5 mg/0.5 mL 00:00: [place] PnIj 00 weekly. Medical Branch tirzepatide Yes [id number] 5mg inject 5 Univers (MOUNJARO) 1-26 mg under ity o f 5 mg/0.5 mL 00:00: the skin [place] PnIj 00 weekly. Medical Branch tirzepatide Yes [id number] 5mg inject 5 Univers (MOUNJARO) 1-26 mg under ity o f 5 mg/0.5 mL 00:00: the skin [place] PnIj 00 weekly. Medical Branch tirzepatide Yes [id number] 5mg inject 5 Univers (MOUNJARO) 1-26 mg under ity o f 5 mg/0.5 mL 00:00: the skin [place] PnIj 00 weekly. Medical Branch tirzepatide Yes [id number] 5mg inject 5 Univers (MOUNJARO) 1-26 mg under ity o f 5 mg/0.5 mL 00:00: the skin [place] PnIj 00 weekly. Medical Branch tirzepatide Yes [id number] 5mg inject 5 Univers (MOUNJARO) 1-26 mg under ity o f 5 mg/0.5 mL 00:00: the skin [place] PnIj 00 weekly. Medical Branch tirzepatide Yes [id number] 5mg inject 5 Univers (MOUNJARO) 1-26 mg under ity o f 5 mg/0.5 mL 00:00: the skin [place] PnIj 00 weekly. Medical Branch tirzepatide Yes [id number] 5mg inject 5 Univers (MOUNJARO) 1-26 mg under ity o f 5 mg/0.5 mL 00:00: the [place] PnIj 00 weekly. Medical Branch tirzepatide 2022- No [id number] 5mg inject 5 Univers (MOUNJARO) 1-26 02-27 mg under ity of 5 mg/0.5 mL 00:00: 00:00 [place] PnIj 00 :00 weekly. [facility] Branch PANTOPRAZOL 2021-04 Yes [id number] TAKE ONE Univers E 20 mg EC 2-28 (1) ity of tablet 00:00: TABLET(S) BY MOUTH Medical ONCE A Branch DAY. PANTOPRAZOL 2021-04 Yes [id number] TAKE ONE Univers E 20 mg EC 2-28 (1) ity of tablet 00:00: TABLET(S) BY MOUTH Medical ONCE A Branch DAY. PANTOPRAZOL 2021-04 Yes [id number] TAKE ONE Univers E 20 mg EC 2-28 (1) ity of tablet 00:00: TABLET(S) BY MOUTH Medical ONCE A Branch DAY. PANTOPRAZOL 2021-04 Yes [id number] TAKE ONE Univers E 20 mg EC 2-28 (1) ity of tablet 00:00: TABLET(S) [place] 00 BY MOUTH Medical ONCE A Branch DAY. PANTOPRAZOL 2021-04 Yes [id number] TAKE ONE Univers E 20 mg EC 2-28 (1) ity of tablet 00:00: TABLET(S) [place] 00 BY MOUTH Medical ONCE A Branch DAY. PANTOPRAZOL 2021-04 Yes [id number] TAKE ONE Univers E 20 mg EC 2-28 (1) ity of tablet 00:00: TABLET(S) [place] 00 BY MOUTH Medical ONCE A Branch DAY. PANTOPRAZOL 2021-04 Yes [id number] TAKE ONE Univers E 20 mg EC 2-28 (1) ity of tablet 00:00: TABLET(S) [place] 00 BY MOUTH Medical ONCE A Branch DAY. PANTOPRAZOL 2021-04 Yes [id number] TAKE ONE Univers E 20 mg EC 2-28 (1) ity of tablet 00:00: TABLET(S) [place] 00 BY MOUTH Medical ONCE A Branch DAY. PANTOPRAZOL 2021-04- No [id number] TAKE ONE Univers E 20 mg EC 2-28 06-09 (1) ity of tablet 00:00: 00:00 TABLET(S) [place] 00 :00 BY MOUTH Medical ONCE A Branch DAY. LOSARTAN-HY 2021-04 Yes [id number] TAKE ONE Univers DROCHLOROTH 2-14 (1) ity of IAZIDE 00:00: TABLET(S) [place] 50-12.5 mg 00 BY MOUTH Medic al per tablet ONCE A Branch DAY. LOSARTAN-HY 2021-04 Yes [id number] TAKE ONE Univers DROCHLOROTH 2-14 (1) ity of IAZIDE 00:00: TABLET(S) [place] 50-12.5 mg 00 BY MOUTH Medic al per tablet ONCE A Branch DAY. LOSARTAN-HY 2021-04 Yes [id number] TAKE ONE Univers DROCHLOROTH 2-14 (1) ity of IAZIDE 00:00: TABLET(S) [place] 50-12.5 mg 00 BY MOUTH Medic al per tablet ONCE A Branch DAY. LOSARTAN-HY 2021-04 Yes [id number] TAKE ONE Univers DROCHLOROTH 2-14 (1) ity of IAZIDE 00:00: TABLET(S) [place] 50-12.5 mg 00 BY MOUTH Medic al per tablet ONCE A Branch DAY. LOSARTAN-HY 2021-04- No [id number] TAKE ONE Univers DROCHLOROTH 2-14 02-13 (1) ity of IAZIDE 00:00: 00:00 TABLET(S) [place] 50-12.5 mg 00 :00 BY MOUTH Medic al per tablet ONCE A Branch DAY. ondansetron 2021-04 4mg 4 mg, Slow Univers (ZOFRAN 0-20 10-20 IV Push, ity of (PF)) 13:45: 13:42 ONCE, 1 [place] injection 4 00 :00 dose, On Medi lonny mg Judi Branch 02/03/22 at 0845, JACQUI ondansetron 2021-04 Yes [id number] 4mg Take 1 U nivers 4 mg 0-20 tablet by ity of disintegrat 00:00: mouth [place] ing tablet 00 every 8 Medica l (eight) Branch hours as needed for Nausea and Vomiting (N/V). ondansetron 2021-04 Yes [id number] 4mg Take 1 U nivers 4 mg 0-20 tablet by ity of disintegrat 00:00: mouth [place] ing tablet 00 every 8 Medica l (eight) Branch hours as needed for Nausea and Vomiting (N/V). ondansetron 2021-04 Yes [id number] 4mg Take 1 U nivers 4 mg 0-20 tablet by ity of disintegrat 00:00: mouth [place] ing tablet 00 every 8 Medica l (eight) Branch hours as needed for Nausea and Vomiting (N/V). ondansetron 2021-04 Yes [id number] 4mg Take 1 U nivers 4 mg 0-20 tablet by ity of disintegrat 00:00: mouth [place] ing tablet 00 every 8 [facility] (eight) Branch hours as needed for Nausea and Vomiting (N/V). ondansetron 2021-04 Yes [id number] 4mg Take 1 [facility] n[facility] 4 mg 0-20 tablet by it[facility] of disintegrat 00:00: mouth [place] ing tablet 00 every 8 Medica l (eight) Branch hours as needed for Nausea and Vomiting (N/V). ondansetron 2021-04 Yes [id number] 4mg Take 1 [facility] nivers 4 mg 0-20 tablet by ity of disintegrat 00:00: mouth [place] ing tablet 00 every 8 Medica l (eight) Branch hours as needed for Nausea and Vomiting (N/V). ondansetron 2022-1 Yes [id number] 4mg Take 1 [facility] nivers 4 mg 0-20 tablet by ity of disintegrat 00:00: mouth [place] ing tablet 00 every 8 Medica l (eight) Branch hours as needed for Nausea and Vomiting (N/V). ondansetron 2021-04 Yes [id number] 4mg Take 1 [facility] n[facility] 4 mg 0-20 tablet by ity of disintegrat 00:00: mouth [place] ing tablet 00 every 8 Medica l (eight) Branch hours as needed for Nausea and Vomiting (N/V). ondansetron 2021-04 Yes [id number] 4mg Take 1 [facility] nivers 4 mg 0-20 tablet by ity of disintegrat 00:00: mouth [place] ing tablet 00 every 8 Medica l (eight) Branch hours as needed for Nausea and Vomiting (N/V). ondansetron 2021-04 Yes [id number] 4mg Take 1 [facility] nivers 4 mg 0-20 tablet by ity of disintegrat 00:00: mouth [place] ing tablet 00 every 8 Medica l (eight) Branch hours as needed for Nausea and Vomiting (N/V). ondansetron 2021-04 Yes [id number] 4mg Take 1 [facility] 4 mg 0-20 tablet by ity of disintegrat 00:00: mouth [place] ing tablet 00 every 8 Medica l (eight) Branch hours as needed for Nausea and Vomiting (N/V). ondansetron 2021-04 Yes [id number] 4mg Take 1 [facility] nivers 4 mg 0-20 tablet by ity of disintegrat 00:00: mouth [place] ing tablet 00 every 8 Medica l (eight) Branch hours as needed for Nausea and Vomiting (N/V). ondansetron 2021-04 Yes [id number] 4mg Take 1 [facility] n[facility] 4 mg 0-20 tablet by ity of disintegrat 00:00: mouth [place] ing tablet 00 every 8 Medica l (eight) Branch hours as needed for Nausea and Vomiting (N/V). ondansetron 2021-04 Yes [id number] 4mg Take 1 [facility] nivers 4 mg 0-20 tablet by ity of disintegrat 00:00: mouth [place] ing tablet 00 every 8 Medica l (eight) Branch hours as needed for Nausea and Vomiting (N/V). ondansetron 2021-04 Yes [id number] 4mg Take 1 [facility] nivers 4 mg 0-20 tablet by ity of disintegrat 00:00: mouth [place] ing tablet 00 every 8 Medica l (eight) Branch hours as needed for Nausea and Vomiting (N/V). ondansetron 2021-04 Yes [id number] 4mg Take 1 [facility] 4 mg 0-20 tablet by ity of disintegrat 00:00: mouth [place] ing tablet 00 every 8 Med[facility] l (eight) Branch hours as needed for Nausea and Vomiting (N/V). ondansetron 2021-04 Yes [id number] 4mg Take 1 [facility] nivers 4 mg 0-20 tablet by ity of disintegrat 00:00: mouth [place] ing tablet 00 every 8 Medica l (eight) Branch hours as needed for Nausea and Vomiting (N/V). ondansetron 2021-04 Yes [id number] 4mg Take 1 [facility] nivers 4 mg 0-20 tablet by ity of disintegrat 00:00: mouth [place] ing tablet 00 every 8 Medica l (eight) Branch hours as needed for Nausea and Vomiting (N/V). ondansetron 2021-04 Yes [id number] 4mg Take 1 [facility] 4 mg 0-20 tablet by ity of disintegrat 00:00: mouth [place] ing tablet 00 every 8 Medica l (eight) Branch hours as needed for Nausea and Vomiting (N/V). ondansetron 2021-04 Yes [id number] 4mg Take 1 [facility] nivers 4 mg 0-20 tablet by ity of disintegrat 00:00: mouth [place] ing tablet 00 every 8 Medica l (eight) Branch hours as needed for Nausea and Vomiting (N/V). ondansetron 2021-04 Yes [id number] 4mg Take 1 [facility] nivers 4 mg 0-20 tablet by ity of disintegrat 00:00: mouth [place] ing tablet 00 every 8 Medica l (eight) Branch hours as needed for Nausea and Vomiting (N/V). ondansetron 2021-04 Yes [id number] 4mg Take 1 [facility] n[facility] 4 mg 0-20 tablet by ity of disintegrat 00:00: mouth [place] ing tablet 00 every 8 Medica l (eight) Branch hours as needed for Nausea and Vomiting (N/V). ondansetron 2021-04 Yes [id number] 4mg Take 1 [facility] 4 mg 0-20 tablet by ity of disintegrat 00:00: mouth [place] ing tablet 00 every 8 Med[facility] l (eight) Branch hours as needed for Nausea and Vomiting (N/V). ondansetron 2021-04 Yes [id number] 4mg Take 1 [facility] 4 mg 0-20 tablet by ity of disintegrat 00:00: mouth [place] ing tablet 00 every 8 Med[facility] l (eight) Branch hours as needed for Nausea and Vomiting (N/V). ondansetron 2021-04 Yes [id number] 4mg Take 1 [facility] 4 mg 0-20 tablet by ity of disintegrat 00:00: mouth [place] ing tablet 00 every 8 Med[facility] l (eight) Branch hours as needed for Nausea and Vomiting (N/V). ondansetron 2021-04 Yes [id number] 4mg Take 1 [facility] 4 mg 0-20 tablet by ity of disintegrat 00:00: mouth [place] ing tablet 00 every 8 Med[facility] l (eight) Branch hours as needed for Nausea and Vomiting (N/V). LOSARTAN-HY 2021-04 Yes [id number] TAKE ONE [facility] DROCHLOROTH 0-19 (1) ity of IAZIDE 00:00: TABLET(S) [place] 50-12.5 mg 00 BY MOUTH Medic al per tablet ONCE A Branch DAY. LOSARTAN-HY 2021-04 Yes [id number] TAKE ONE [facility] DROCHLOROTH 0-19 (1) ity of IAZIDE 00:00: TABLET(S) [place] 50-12.5 mg 00 BY MOUTH Medic al per tablet ONCE A Branch DAY. LOSARTAN-HY 2021-04 Yes [id number] TAKE ONE [facility] DROCHLOROTH 0-19 (1) ity of IAZIDE 00:00: TABLET(S) [place] 50-12.5 mg 00 BY MOUTH Medic al per tablet ONCE A Branch DAY. LOSARTAN-HY 2021-04 Yes [id number] TAKE ONE [facility] DROCHLOROTH 0-19 (1) ity of IAZIDE 00:00: TABLET(S) [place] 50-12.5 mg 00 BY MOUTH Medic al per tablet ONCE A Branch DAY. LOSARTAN-HY 2021-04 Yes [id number] TAKE ONE [facility] DROCHLOROTH 0-19 (1) ity of IAZIDE 00:00: TABLET(S) [place] 50-12.5 mg 00 BY MOUTH Medic al per tablet ONCE A Branch DAY. LOSARTAN-HY 2021-04 Yes [id number] TAKE ONE [facility] DROCHLOROTH 0-19 (1) ity of IAZIDE 00:00: TABLET(S) [place] 50-12.5 mg 00 BY MOUTH Medic al per tablet ONCE A Branch DAY. LOSARTAN-HY 2021-04- No [id number] TAKE ONE [facility] DROCHLOROTH 0-19 12-14 (1) ity of IAZIDE 00:00: 00:00 TABLET(S) [place] 50-12.5 mg 00 :00 BY MOUTH Medic al per tablet ONCE A Branch DAY. meloxicam 2021-04 No 7.5mg Take 7.5 [facility] [place] 7.5 mg 0-13 10-13 mg by ity of tablet 16:54: 00:00 mouth in [place] 23 :00 the Medical morning. Branch meloxicam 2021-04 No 7.5mg Take 7.5 [facility] [place] 7.5 mg 0-13 10-13 mg by ity of tablet 16:54: 00:00 mouth in [place] 23 :00 the Medical morning. Branch amitriptyli 2021-04 Yes [id number] 10mg Take 1 [facility] ne 10 mg 0-13 103 tablet by ity of tablet 00:00: mouth at [place] 00 bedtime. Medical Branch meloxicam 2021-04 Yes [id number] 7.5mg Take 1 [facility] 7.5 mg 0-13 103 tablet by ity of tablet 00:00: mouth in [place] 00 the Medical morning. Branch doxycycline 2021-04 Yes [id number] 100mg Take 1 [facility] hyclate 100 0-13 tablet by ity of mg tablet 00:00: mouth in [facility] 00 the Medical morning Branch and 1 tablet in the evening. FLUoxetine 2021-04 Yes [id number] 20mg Take 1 [facility] nivers 20 mg 0-13 capsule by ity of capsule 00:00: mouth in [place] 00 the Medical morning. Branch tiZANidine 2021-04 Yes [id number] 2mg Take 1 [facility] 2 mg tablet 0-13 103 tablet by ity of 00:00: mouth at [place] 00 bedtime as Medical needed Branch (muscle spasms). tirzepatide 2021-04 Yes [id number] 2.5mg inject 2.5 [facility] (MOUNJARO) 0-13 mg under ity o f 2.5 mg/0.5 00:00: the skin [place] as mL PnIj 00 weekly. Medical Start Branch 2.5mg SC qWeek x 4 Weeks, then increase to 5 mg SC qWeek amitriptyli 2021-04 Yes [id number] 10mg Take 1 [facility] ne 10 mg 0-13 103 tablet by ity of tablet 00:00: mouth at [place] 00 bedtime. Medical Branch meloxicam 2021-04 Yes [id number] 7.5mg Take 1 [facility] 7.5 mg 0-13 103 tablet by ity of tablet 00:00: mouth in [place] 00 the Medical morning. Branch doxycycline 2021-04 Yes [id number] 100mg Take 1 [facility] hyclate 100 0-13 tablet by it[facility] of mg tablet 00:00: mouth [place] 00 the Medical morning Branch and 1 tablet in the evening. FLUoxetine 2021-04 Yes [id number] 20mg Take 1 [facility] nivers 20 mg 0-13 capsule by ity of capsule 00:00: mouth in [place] 00 the Medical morning. Branch tiZANidine 2021-04 Yes [id number] 2mg Take 1 [facility] 2 mg tablet 0-13 103 tablet by ity of 00:00: mouth at [place] 00 bedtime as Medical needed Branch (muscle spasms). tirzepatide 2021-04 Yes [id number] 2.5mg inject 2.5 [facility] (MOUNJARO) 0-13 mg under ity o f 2.5 mg/0.5 00:00: the skin [place] mL PnIj 00 weekly. Medical Start Branch 2.5mg SC qWeek x 4 Weeks, then increase to 5 mg SC qWeek amitriptyli 2021-04 Yes [id number] 10mg Take 1 [facility] ne 10 mg 0-13 103 tablet by ity of tablet 00:00: mouth at [place] 00 bedtime. Medical Branch meloxicam 2021-04 Yes [id number] 7.5mg Take 1 [facility] 7.5 mg 0-13 103 tablet by ity of tablet 00:00: mouth in [place] 00 the Medical morning. Branch doxycycline 2021-04 Yes [id number] 100mg Take 1 [facility] hyclate 100 0-13 tablet by [facility] of mg tablet 00:00: mouth [place] 00 the Medical morning Branch and 1 tablet in the evening. FLUoxetine 2021-04 Yes [id number] 20mg Take 1 [facility] nivers 20 mg 0-13 capsule by ity of capsule 00:00: mouth in [place] 00 the Medical morning. Branch tiZANidine 2021-04 Yes [id number] 2mg Take 1 [facility] 2 mg tablet 0-13 103 tablet by ity of 00:00: mouth at [place] 00 bedtime as Medical needed Branch (muscle spasms). tirzepatide 2021-04 Yes [id number] 2.5mg inject 2.5 [facility] (MOUNJARO) 0-13 mg under ity o f 2.5 mg/0.5 00:00: the skin [place] mL PnIj 00 weekly. Medical Start Branch 2.5mg SC qWeek x 4 Weeks, then increase to 5 mg SC qWeek amitriptyli 2021-04 Yes [id number] 10mg Take 1 [facility] ne 10 mg 0-13 103 tablet by ity of tablet 00:00: mouth at [place] 00 bedtime. Medical Branch meloxicam 2021-04 Yes [id number] 7.5mg Take 1 [facility] 7.5 mg 0-13 103 tablet by ity of tablet 00:00: mouth in [place] 00 the Medical morning. Branch doxycycline 2021-04 Yes [id number] 100mg Take 1 [facility] hyclate 100 0-13 tablet by ity of mg tablet 00:00: mouth [place] 00 the Medical morning Branch and 1 tablet in the evening. FLUoxetine 2021-04 Yes [id number] 20mg Take 1 [facility] nivers 20 mg 0-13 capsule by ity of capsule 00:00: mouth in [place] 00 the Medical morning. Branch tiZANidine 2021-04 Yes [id number] 2mg Take 1 [facility] 2 mg tablet 0-13 103 tablet by ity of 00:00: mouth at [place] 00 bedtime as Medical needed Branch (muscle spasms). tirzepatide 2021-04 Yes [id number] 2.5mg inject 2.5 [facility] (MOUNJARO) 0-13 mg under ity o f 2.5 mg/0.5 00:00: the skin [place] mL PnIj 00 weekly. Medical Start Branch 2.5mg SC qWeek x 4 Weeks, then increase to 5 mg SC qWeek amitriptyli 2021-04 Yes [id number] 10mg Take 1 [facility] ne 10 mg 0-13 103 tablet by ity of tablet 00:00: mouth at [place] 00 bedtime. Medical Branch meloxicam 2021-04 Yes [id number] 7.5mg Take 1 [facility] 7.5 mg 0-13 103 tablet by ity of tablet 00:00: mouth in [place] 00 the Medical morning. Branch doxycycline 2021-04 Yes [id number] 100mg Take 1 [facility] hyclate 100 0-13 tablet by ity of mg tablet 00:00: mouth [place] 00 the Medical morning Branch and 1 tablet in the evening. FLUoxetine 2021-04 Yes [id number] 20mg Take 1 [facility] nivers 20 mg 0-13 capsule by ity of capsule 00:00: mouth in [place] 00 the Medical morning. Branch tiZANidine 2021-04 Yes [id number] 2mg Take 1 [facility] 2 mg tablet 0-13 103 tablet by ity of 00:00: mouth at [place] 00 bedtime as Medical needed Branch (muscle spasms). tirzepatide 2021-04 Yes [id number] 2.5mg inject 2.5 [facility] (MOUNJARO) 0-13 mg under ity o f 2.5 mg/0.5 00:00: the skin [place] mL PnIj 00 weekly. Medical Start Branch 2.5mg SC qWeek x 4 Weeks, then increase to 5 mg SC qWeek amitriptyli 2021-04 Yes [id number] 10mg Take 1 [facility] ne 10 mg 0-13 103 tablet by ity of tablet 00:00: mouth at [place] 00 bedtime. Medical Branch meloxicam 2021-04 Yes [id number] 7.5mg Take 1 [facility] 7.5 mg 0-13 103 tablet by ity of tablet 00:00: mouth in [place] 00 the Medical morning. Branch doxycycline 2021-04 Yes [id number] 100mg Take 1 [facility] hyclate 100 0-13 tablet by ity of mg tablet 00:00: mouth [place] 00 the Medical morning Branch and 1 tablet in the evening. FLUoxetine 2021-04 Yes [id number] 20mg Take 1 [facility] nivers 20 mg 0-13 capsule by ity of capsule 00:00: mouth in [place] 00 the Medical morning. Branch tiZANidine 2021-04 Yes [id number] 2mg Take 1 [facility] 2 mg tablet 0-13 103 tablet by ity of 00:00: mouth at [place] 00 bedtime as Medical needed Branch (muscle spasms). tirzepatide 2021-04 Yes [id number] 2.5mg inject 2.5 [facility] (MOUNJARO) 0-13 mg under ity o f 2.5 mg/0.5 00:00: the skin [place] mL PnIj 00 weekly. Medical Start Branch 2.5mg SC qWeek x 4 Weeks, then increase to 5 mg SC qWeek amitriptyli 2021-04 Yes [id number] 10mg Take 1 [facility] ne 10 mg 0-13 103 tablet by ity of tablet 00:00: mouth at [place] 00 bedtime. Medical Branch meloxicam 2021-04 Yes [id number] 7.5mg Take 1 [facility] 7.5 mg 0-13 103 tablet by ity of tablet 00:00: mouth in [place] 00 the Medical morning. Branch doxycycline 2021-04 Yes [id number] 100mg Take 1 [facility] hyclate 100 0-13 tablet by ity of mg tablet 00:00: mouth in [facility] 00 the Medical morning Branch and 1 tablet in the evening. FLUoxetine 2021-04 Yes [id number] 20mg Take 1 U nivers 20 mg 0-13 capsule by ity of capsule 00:00: mouth in [place] 00 the Medical morning. Branch tiZANidine 2021-04 Yes [id number] 2mg Take 1 [facility] 2 mg tablet 0-13 103 tablet by ity of 00:00: mouth at [place] 00 bedtime as Medical needed Branch (muscle spasms). tirzepatide 2021-04 Yes [id number] 2.5mg inject 2.5 [facility] (MOUNJARO) 0-13 mg under ity o f 2.5 mg/0.5 00:00: the skin [place] mL PnIj 00 weekly. Medical Start Branch 2.5mg SC qWeek x 4 Weeks, then increase to 5 mg SC qWeek amitriptyli 2021-04 Yes [id number] 10mg Take 1 [facility] ne 10 mg 0-13 103 tablet by ity of tablet 00:00: mouth at [place] 00 bedtime. Medical Branch meloxicam 2021-04 Yes [id number] 7.5mg Take 1 [facility] 7.5 mg 0-13 103 tablet by ity of tablet 00:00: mouth in [place] 00 the Medical morning. Branch doxycycline 2021-04 Yes [id number] 100mg Take 1 [facility] hyclate 100 0-13 tablet by ity of mg tablet 00:00: mouth [place] 00 the Medical morning Branch and 1 tablet in the evening. FLUoxetine 2021-04 Yes [id number] 20mg Take 1 [facility] nivers 20 mg 0-13 capsule by ity of capsule 00:00: mouth in [place] 00 the Medical morning. Branch tiZANidine 2021-04 Yes [id number] 2mg Take 1 [facility] 2 mg tablet 0-13 103 tablet by ity of 00:00: mouth at [place] 00 bedtime as Medical needed Branch (muscle spasms). tirzepatide 2021-04 Yes [id number] 2.5mg inject 2.5 [facility] (MOUNJARO) 0-13 mg under ity o f 2.5 mg/0.5 00:00: the skin [place] as mL PnIj 00 weekly. Medical Start Branch 2.5mg SC qWeek x 4 Weeks, then increase to 5 mg SC qWeek amitriptyli 2021-04 Yes [id number] 10mg Take 1 [facility] ne 10 mg 0-13 103 tablet by ity of tablet 00:00: mouth at [place] 00 bedtime. Medical Branch meloxicam 2021-04 Yes [id number] 7.5mg Take 1 [facility] 7.5 mg 0-13 103 tablet by ity of tablet 00:00: mouth in [place] 00 the Medical morning. Branch doxycycline 2021-04 Yes [id number] 100mg Take 1 [facility] hyclate 100 0-13 tablet by ity [facility] mg tablet 00:00: [facility] the [facility] Branch and 1 tablet in the evening. FLUoxetine 2021-04 Yes [id number] 20mg Take 1 U nivers 20 mg 0-13 capsule by ity of capsule 00:00: mouth in [place] 00 the Medical morning. Branch tiZANidine 2021-04 Yes [id number] 2mg Take 1 [facility] 2 mg tablet 0-13 103 tablet by ity of 00:00: mouth at [place] 00 bedtime as Medical needed Branch (muscle spasms). tirzepatide 2021-04 Yes [id number] 2.5mg inject 2.5 [facility] (MOUNJARO) 0-13 mg under ity o f 2.5 mg/0.5 00:00: the skin [place] mL PnIj 00 weekly. Medical Start Branch 2.5mg SC qWeek x 4 Weeks, then increase to 5 mg SC qWeek amitriptyli 2021-04 Yes [id number] 10mg Take 1 [facility] ne 10 mg 0-13 103 tablet by ity of tablet 00:00: mouth at [place] 00 bedtime. Medical Branch meloxicam 2021-04 Yes [id number] 7.5mg Take 1 [facility] 7.5 mg 0-13 103 tablet by ity of tablet 00:00: mouth in [place] 00 the Medical morning. Branch doxycycline 2021-04 Yes [id number] 100mg Take 1 [facility] hyclate 100 0-13 tablet by ity of mg tablet 00:00: mouth [place] 00 the Medical morning Branch and 1 tablet in the evening. FLUoxetine 2021-04 Yes [id number] 20mg Take 1 U nivers 20 mg 0-13 capsule by ity of capsule 00:00: mouth in [place] 00 the Medical morning. Branch tiZANidine 2021-04 Yes [id number] 2mg Take 1 [facility] 2 mg tablet 0-13 103 tablet by ity of 00:00: mouth at [place] 00 bedtime as Medical needed Branch (muscle spasms). tirzepatide 2021-04 Yes [id number] 2.5mg inject 2.5 [facility] (MOUNJARO) 0-13 mg under ity o f 2.5 mg/0.5 00:00: the skin [place] as mL PnIj 00 weekly. Medical Start Branch 2.5mg SC qWeek x 4 Weeks, then increase to 5 mg SC qWeek amitriptyli 2021-04 Yes [id number] 10mg Take 1 [facility] ne 10 mg 0-13 103 tablet by ity of tablet 00:00: mouth at [place] 00 bedtime. Medical Branch meloxicam 2021-04 Yes [id number] 7.5mg Take 1 [facility] 7.5 mg 0-13 103 tablet by ity of tablet 00:00: mouth in [place] 00 the Medical morning. Branch doxycycline 2021-04 Yes [id number] 100mg Take 1 [facility] hyclate 100 0-13 tablet by ity of mg tablet 00:00: mouth [place] 00 the Medical morning Branch and 1 tablet in the evening. FLUoxetine 2021-04 Yes [id number] 20mg Take 1 U nivers 20 mg 0-13 capsule by ity of capsule 00:00: mouth in [place] 00 the Medical morning. Branch tiZANidine 2021-04 Yes [id number] 2mg Take 1 [facility] 2 mg tablet 0-13 103 tablet by ity of 00:00: mouth at [place] 00 bedtime as Medical needed Branch (muscle spasms). amitriptyli 2021-04 Yes [id number] 10mg Take 1 [facility] ne 10 mg 0-13 103 tablet by ity of tablet 00:00: mouth at [place] 00 bedtime. Medical Branch meloxicam 2021-04 Yes [id number] 7.5mg Take 1 [facility] 7.5 mg 0-13 103 tablet by ity of tablet 00:00: mouth in [place] 00 the Medical morning. Branch doxycycline 2021-04 Yes [id number] 100mg Take 1 [facility] hyclate 100 0-13 tablet by ity of mg tablet 00:00: mouth in [facility] the Medical morning Branch and 1 tablet in the evening. FLUoxetine 2021-04 Yes [id number] 20mg Take 1 U nivers 20 mg 0-13 capsule by ity of capsule 00:00: mouth in [place] the Medical morning. Branch tiZANidine 2021-04 Yes [id number] 2mg Take 1 [facility] 2 mg tablet 0-13 103 tablet by ity of 00:00: mouth at [place] 00 bedtime as Medical needed Branch (muscle spasms). amitriptyli 2021-04 Yes [id number] 10mg Take 1 [facility] ne 10 mg 0-13 103 tablet by ity of tablet 00:00: mouth at [place] 00 bedtime. Medical Branch meloxicam 2021-04 Yes [id number] 7.5mg Take 1 [facility] 7.5 mg 0-13 103 tablet by ity of tablet 00:00: mouth in [place] 00 the Medical morning. Branch doxycycline 2021-04 Yes [id number] 100mg Take 1 [facility] hyclate 100 0-13 tablet by ity of mg tablet 00:00: mouth in [facility] 00 the Medical morning Branch and 1 tablet in the evening. FLUoxetine 2021-04 Yes [id number] 20mg Take 1 U nivers 20 mg 0-13 capsule by ity of capsule 00:00: mouth in [place] 00 the Medical morning. Branch tiZANidine 2021-04 Yes [id number] 2mg Take 1 [facility] 2 mg tablet 0-13 103 tablet by ity of 00:00: mouth at [place] 00 bedtime as Medical needed Branch (muscle spasms). amitriptyli 2021-04 Yes [id number] 10mg Take 1 [facility] ne 10 mg 0-13 103 tablet by ity of tablet 00:00: mouth at [place] 00 bedtime. Medical Branch meloxicam 2021-04 Yes [id number] 7.5mg Take 1 [facility] 7.5 mg 0-13 103 tablet by ity of tablet 00:00: mouth in [place] 00 the Medical morning. Branch doxycycline 2021-04 Yes [id number] 100mg Take 1 [facility] hyclate 100 0-13 tablet by ity of mg tablet 00:00: mouth in [facility] 00 the Medical morning Branch and 1 tablet in the evening. FLUoxetine 2021-04 Yes [id number] 20mg Take 1 U nivers 20 mg 0-13 capsule by ity of capsule 00:00: mouth in [place] the Medical morning. Branch tiZANidine 2021-04 Yes [id number] 2mg Take 1 [facility] 2 mg tablet 0-13 103 tablet by ity of 00:00: mouth at [place] 00 bedtime as Medical needed Branch (muscle spasms). amitriptyli 2021-04 Yes [id number] 10mg Take 1 [facility] ne 10 mg 0-13 103 tablet by ity of tablet 00:00: mouth at [place] 00 bedtime. Medical Branch meloxicam 2021-04 Yes [id number] 7.5mg Take 1 [facility] 7.5 mg 0-13 103 tablet by ity of tablet 00:00: mouth in [place] 00 the Medical morning. Branch doxycycline 2021-04 Yes [id number] 100mg Take 1 [facility] hyclate 100 0-13 tablet by ity of mg tablet 00:00: [facility] the Medical morning Branch and 1 tablet in the evening. FLUoxetine 2021-04 Yes [id number] 20mg Take 1 U nivers 20 mg 0-13 capsule by ity of capsule 00:00: mouth in [place] 00 the Medical morning. Branch tiZANidine 2021-04 Yes [id number] 2mg Take 1 [facility] 2 mg tablet 0-13 103 tablet by ity of 00:00: mouth at [place] 00 bedtime as Medical needed Branch (muscle spasms). amitriptyli 2021-04 Yes [id number] 10mg Take 1 [facility] ne 10 mg 0-13 103 tablet by ity of tablet 00:00: mouth at [place] 00 bedtime. Medical Branch meloxicam 2021-04 Yes [id number] 7.5mg Take 1 [facility] 7.5 mg 0-13 103 tablet by ity of tablet 00:00: mouth in [place] 00 the Medical morning. Branch doxycycline 2021-04 Yes [id number] 100mg Take 1 [facility] hyclate 100 0-13 tablet by ity of mg tablet 00:00: mouth [place] 00 the Medical morning Branch and 1 tablet in the evening. FLUoxetine 2021-04 Yes [id number] 20mg Take 1 [facility] nivers 20 mg 0-13 capsule by ity of capsule 00:00: mouth in [place] 00 the Medical morning. Branch tiZANidine 2021-04 Yes [id number] 2mg Take 1 [facility] 2 mg tablet 0-13 103 tablet by ity of 00:00: mouth at [place] 00 bedtime as Medical needed Branch (muscle spasms). amitriptyli 2021-04 Yes [id number] 10mg Take 1 [facility] ne 10 mg 0-13 103 tablet by ity of tablet 00:00: mouth at [place] 00 bedtime. Medical Branch meloxicam 2021-04 Yes [id number] 7.5mg Take 1 [facility] 7.5 mg 0-13 103 tablet by ity of tablet 00:00: mouth in [place] 00 the Medical morning. Branch doxycycline 2021-04 Yes [id number] 100mg Take 1 [facility] hyclate 100 0-13 tablet by ity of mg tablet 00:00: mouth [place] 00 the Medical morning Branch and 1 tablet in the evening. FLUoxetine 2021-04 Yes [id number] 20mg Take 1 U nivers 20 mg 0-13 capsule by ity of capsule 00:00: mouth in [place] 00 the Medical morning. Branch tiZANidine 2021-04 Yes [id number] 2mg Take 1 [facility] 2 mg tablet 0-13 103 tablet by ity of 00:00: mouth at [place] 00 bedtime as Medical needed Branch (muscle spasms). amitriptyli 2021-04 Yes [id number] 10mg Take 1 [facility] ne 10 mg 0-13 103 tablet by ity of tablet 00:00: mouth at [place] 00 bedtime. Medical Branch meloxicam 2021-04 Yes [id number] 7.5mg Take 1 [facility] 7.5 mg 0-13 103 tablet by ity of tablet 00:00: mouth in [place] 00 the Medical morning. Branch doxycycline 2021-04 Yes [id number] 100mg Take 1 [facility] hyclate 100 0-13 tablet by ity of mg tablet 00:00: mouth in [place] 00 the Medical morning Branch and 1 tablet in the evening. FLUoxetine 2021-04 Yes [id number] 20mg Take 1 U nivers 20 mg 0-13 capsule by ity of capsule 00:00: mouth in [place] 00 the Medical morning. Branch tiZANidine 2021-04 Yes [id number] 2mg Take 1 [facility] 2 mg tablet 0-13 103 tablet by ity of 00:00: mouth at [place] 00 bedtime as Medical needed Branch (muscle spasms). amitriptyli 2021-04 Yes [id number] 10mg Take 1 [facility] ne 10 mg 0-13 103 tablet by ity of tablet 00:00: mouth at [place] 00 bedtime. Medical Branch meloxicam 2021-04 Yes [id number] 7.5mg Take 1 [facility] 7.5 mg 0-13 103 tablet by ity of tablet 00:00: mouth in [place] 00 the Medical morning. Branch doxycycline 2021-04 Yes [id number] 100mg Take 1 [facility] hyclate 100 0-13 tablet by ity of mg tablet 00:00: mouth in [place] 00 the Medical morning Branch and 1 tablet in the evening. FLUoxetine 2021-04 Yes [id number] 20mg Take 1 U nivers 20 mg 0-13 capsule by ity of capsule 00:00: mouth in [place] 00 the Medical morning. Branch tiZANidine 2021-04 Yes [id number] 2mg Take 1 [facility] 2 mg tablet 0-13 103 tablet by ity of 00:00: mouth at [place] 00 bedtime as Medical needed Branch (muscle spasms). amitriptyli 2021-04 Yes [id number] 10mg Take 1 [facility] ne 10 mg 0-13 103 tablet by ity of tablet 00:00: mouth at [place] 00 bedtime. Medical Branch meloxicam 2021-04 Yes [id number] 7.5mg Take 1 [facility] 7.5 mg 0-13 103 tablet by ity of tablet 00:00: mouth in [place] 00 the Medical morning. Branch doxycycline 2021-04 Yes [id number] 100mg Take 1 [facility] hyclate 100 0-13 tablet by it[facility] mg tablet 00:00: [facility] the [facility] morning Branch and 1 tablet in the evening. FLUoxetine 2021-04 Yes [id number] 20mg Take 1 [facility] nivers 20 mg 0-13 capsule by ity of capsule 00:00: mouth in [place] 00 the Medical morning. Branch tiZANidine 2021-04 Yes [id number] 2mg Take 1 [facility] 2 mg tablet 0-13 103 tablet by ity of 00:00: mouth at [place] 00 bedtime as Medical needed Branch (muscle spasms). amitriptyli 2021-04 Yes [id number] 10mg Take 1 [facility] ne 10 mg 0-13 103 tablet by ity of tablet 00:00: mouth at [place] 00 bedtime. Medical Branch meloxicam 2021-04 Yes [id number] 7.5mg Take 1 [facility] 7.5 mg 0-13 103 tablet by ity of tablet 00:00: mouth in [place] 00 the Medical morning. Branch doxycycline 2021-04 Yes [id number] 100mg Take 1 [facility] hyclate 100 0-13 tablet by ity of mg tablet 00:00: mouth in [facility] 00 the Medical morning Branch and 1 tablet in the evening. FLUoxetine 2021-04 Yes [id number] 20mg Take 1 U nivers 20 mg 0-13 capsule by ity of capsule 00:00: mouth in [place] 00 the Medical morning. Branch tiZANidine 2021-04 Yes [id number] 2mg Take 1 [facility] 2 mg tablet 0-13 103 tablet by ity of 00:00: mouth at [place] 00 bedtime as Medical needed Branch (muscle spasms). amitriptyli 2021-04 Yes [id number] 10mg Take 1 [facility] ne 10 mg 0-13 103 tablet by ity of tablet 00:00: mouth at [place] 00 bedtime. Medical Branch meloxicam 2021-04 Yes [id number] 7.5mg Take 1 [facility] 7.5 mg 0-13 103 tablet by ity of tablet 00:00: mouth in [place] 00 the Medical morning. Branch doxycycline 2021-04 Yes [id number] 100mg Take 1 [facility] hyclate 100 0-13 tablet by [facility] of mg tablet 00:00: mouth [place] 00 the Medical morning Branch and 1 tablet in the evening. FLUoxetine 2021-04 Yes [id number] 20mg Take 1 [facility] nivers 20 mg 0-13 capsule by ity of capsule 00:00: mouth in [place] 00 the Medical morning. Branch tiZANidine 2021-04 Yes [id number] 2mg Take 1 [facility] 2 mg tablet 0-13 103 tablet by ity of 00:00: mouth at [place] 00 bedtime as Medical needed Branch (muscle spasms). amitriptyli 2021-04 Yes [id number] 10mg Take 1 [facility] ne 10 mg 0-13 103 tablet by ity of tablet 00:00: mouth at [place] 00 bedtime. Medical Branch meloxicam 2021-04 Yes [id number] 7.5mg Take 1 [facility] 7.5 mg 0-13 103 tablet by ity of tablet 00:00: mouth in [place] 00 the Medical morning. Branch doxycycline 2021-04 Yes [id number] 100mg Take 1 [facility] hyclate 100 0-13 tablet by ity of mg tablet 00:00: mouth [place] 00 the Medical morning Branch and 1 tablet in the evening. FLUoxetine 2021-04 Yes [id number] 20mg Take 1 [facility] nivers 20 mg 0-13 capsule by ity of capsule 00:00: mouth in [place] 00 the Medical morning. Branch tiZANidine 2021-04 Yes [id number] 2mg Take 1 [facility] 2 mg tablet 0-13 103 tablet by ity of 00:00: mouth at [place] 00 bedtime as Medical needed Branch (muscle spasms). amitriptyli 2021-04 Yes [id number] 10mg Take 1 [facility] ne 10 mg 0-13 103 tablet by ity of tablet 00:00: mouth at [place] 00 bedtime. Medical Branch meloxicam 2021-04 Yes [id number] 7.5mg Take 1 [facility] 7.5 mg 0-13 103 tablet by ity of tablet 00:00: mouth in [place] 00 the Medical morning. Branch doxycycline 2021-04 Yes [id number] 100mg Take 1 [facility] hyclate 100 0-13 tablet by ity of mg tablet 00:00: mouth [place] 00 the Medical morning Branch and 1 tablet in the evening. FLUoxetine 2021-04 Yes [id number] 20mg Take 1 [facility] nivers 20 mg 0-13 capsule by ity of capsule 00:00: mouth in [place] 00 the Medical morning. Branch tiZANidine 2021-04 Yes [id number] 2mg Take 1 [facility] 2 mg tablet 0-13 103 tablet by ity of 00:00: mouth at [place] 00 bedtime as Medical needed Branch (muscle spasms). amitriptyli 2021-04 Yes [id number] 10mg Take 1 [facility] ne 10 mg 0-13 103 tablet by ity of tablet 00:00: mouth at [place] 00 bedtime. Medical Branch meloxicam 2021-04 Yes [id number] 7.5mg Take 1 [facility] 7.5 mg 0-13 103 tablet by ity of tablet 00:00: mouth in [place] 00 the Medical morning. Branch doxycycline 2021-04 Yes [id number] 100mg Take 1 [facility] hyclate 100 0-13 tablet by ity of mg tablet 00:00: mouth in [facility] 00 the Medical morning Branch and 1 tablet in the evening. tiZANidine 2021-04 Yes [id number] 2mg Take 1 [facility] 2 mg tablet 0-13 103 tablet by ity of 00:00: mouth at [place] 00 bedtime as Medical needed Branch (muscle spasms). amitriptyli 2021-04 Yes [id number] 10mg Take 1 [facility] ne 10 mg 0-13 103 tablet by ity of tablet 00:00: mouth at [place] 00 bedtime. Medical Branch meloxicam 2021-04 Yes [id number] 7.5mg Take 1 [facility] 7.5 mg 0-13 103 tablet by ity of tablet 00:00: mouth in [place] 00 the Medical morning. Branch doxycycline 2021-04 Yes [id number] 100mg Take 1 [facility] hyclate 100 0-13 tablet by ity of mg tablet 00:00: mouth [place] 00 the Medical morning Branch and 1 tablet in the evening. tiZANidine 2021-04 Yes [id number] 2mg Take 1 [facility] 2 mg tablet 0-13 103 tablet by ity of 00:00: mouth at [place] 00 bedtime as Medical needed Branch (muscle spasms). amitriptyli 2021-04 Yes [id number] 10mg Take 1 [facility] ne 10 mg 0-13 103 tablet by ity of tablet 00:00: mouth at [place] 00 bedtime. Medical Branch meloxicam 2021-04 Yes [id number] 7.5mg Take 1 [facility] 7.5 mg 0-13 103 tablet by ity of tablet 00:00: mouth in [place] 00 the Medical morning. Branch doxycycline 2021-04 Yes [id number] 100mg Take 1 [facility] hyclate 100 0-13 tablet by ity of mg tablet 00:00: mouth [place] 00 the Medical morning Branch and 1 tablet in the evening. tiZANidine 2021-04 Yes [id number] 2mg Take 1 [facility] 2 mg tablet 0-13 103 tablet by ity of 00:00: mouth at [place] 00 bedtime as Medical needed Branch (muscle spasms). amitriptyli 2021-04 Yes [id number] 10mg Take 1 [facility] ne 10 mg 0-13 103 tablet by ity of tablet 00:00: mouth at [place] 00 bedtime. Medical Branch meloxicam 2021-04 Yes [id number] 7.5mg Take 1 [facility] 7.5 mg 0-13 103 tablet by ity of tablet 00:00: mouth in [place] 00 the Medical morning. Branch doxycycline 2021-04 Yes [id number] 100mg Take 1 [facility] hyclate 100 0-13 tablet by ity of mg tablet 00:00: mouth in [facility] 00 the Medical morning Branch and 1 tablet in the evening. tiZANidine 2021-04 Yes [id number] 2mg Take 1 [facility] 2 mg tablet 0-13 103 tablet by ity of 00:00: mouth at [place] 00 bedtime as Medical needed Branch (muscle spasms). amitriptyli 2021-04 Yes [id number] 10mg Take 1 [facility] ne 10 mg 0-13 103 tablet by ity of tablet 00:00: mouth at [place] 00 bedtime. Medical Branch meloxicam 2021-04 Yes [id number] 7.5mg Take 1 [facility] 7.5 mg 0-13 103 tablet by ity of tablet 00:00: mouth in [place] 00 the Medical morning. Branch doxycycline 2021-04 Yes [id number] 100mg Take 1 [facility] hyclate 100 0-13 tablet by ity of mg tablet 00:00: mouth [place] 00 the Medical morning Branch and 1 tablet in the evening. tiZANidine 2021-04 Yes [id number] 2mg Take 1 [facility] 2 mg tablet 0-13 103 tablet by ity of 00:00: mouth at [place] 00 bedtime as Medical needed Branch (muscle spasms). FLUoxetine 2021-04- No [id number] 20mg Take 1 [facility] 20 mg 0-13 05-10 capsule by ity of capsule 00:00: 00:00 mouth in [place] 00 :00 the Medical morning. Branch tirzepatide 2021-04- No [id number] 2.5mg inject 2.5 [facility] (MOUNJARO) 0-13 01-26 mg under ity of 2.5 mg/0.5 00:00: 00:00 the skin [place] mL PnIj 00 :00 weekly. Medical Start Branch 2.5mg SC qWeek x 4 Weeks, then increase to 5 mg SC qWeek TRULICITY Yes [id number] .75mg INJECT [facility] 0.75 mg/0.5 9-12 0.75 MG ity o f mL PnIj 00:00: UNDER THE [place] [address] SKIN Medical WEEKLY. Branch TRULICITY Yes [id number] .75mg INJECT [facility] 0.75 mg/0.5 9-12 0.75 MG ity o f mL PnIj 00:00: UNDER THE [place] SKIN Medical WEEKLY. Branch TRULICITY Yes [id number] .75mg INJECT [facility] 0.75 mg/0.5 9-12 0.75 MG ity o f mL PnIj 00:00: UNDER THE [place] SKIN Medical WEEKLY. Branch TRULICITY Yes [id number] .75mg INJECT [facility] 0.75 mg/0.5 9-12 0.75 MG ity o f mL PnIj 00:00: UNDER THE [place] SKIN Medical WEEKLY. Branch TRULICITY Yes [id number] .75mg INJECT [facility] 0.75 mg/0.5 9-12 0.75 MG ity o f mL PnIj 00:00: UNDER THE [place] [address] SKIN Medical WEEKLY. Branch TRULICITY 2021- No [id number] .75mg INJECT [facility] 0.75 mg/0.5 9-12 10-13 0.75 MG ity of mL PnIj 00:00: 00:00 UNDER THE [facility] 00 :00 SKIN Medical WEEKLY. Branch TRULICITY 2022- No [id number] .75mg INJECT [facility] 0.75 mg/0.5 9-12 10-13 0.75 MG ity of mL PnIj 00:00: 00:00 UNDER THE [facility] 00 :00 SKIN Medical WEEKLY. Branch meloxicam Yes 7.5mg Take 7.5 Uni vers 7.5 mg 9-08 mg by ity of tablet 15:52: mouth in [place] [address] the Medical morning. Branch meloxicam Yes 7.5mg Take 7.5 [facility] vers 7.5 mg 9-08 mg by ity of tablet 15:52: mouth in [place] [address] the Medical morning. Branch meloxicam Yes 7.5mg Take 7.5 [facility] vers 7.5 mg 9-08 mg by ity of tablet 15:52: mouth in [place] [address] the Medical morning. Branch meloxicam Yes 7.5mg Take 7.5 [facility] vers 7.5 mg 9-08 mg by ity of tablet 15:52: mouth in [place] [address] the Medical morning. Branch meloxicam Yes 7.5mg Take 7.5 [facility] vers 7.5 mg 9-08 mg by ity of tablet 15:52: mouth in [place] [address] the Medical morning. Branch meloxicam Yes 7.5mg Take 7.5 [facility] vers 7.5 mg 9-08 mg by ity of tablet 15:52: mouth in [place] [address] the Medical morning. Branch Diclofenac Yes [id number] Apply to [facility] Sodium 908 area(s) 4 ity of (VOLTAREN) 00:00: (four) [place] 1 % gel 00 times Medical daily. Branch Apply 4 g QID on affected areas acetaminoph Yes [id number] 650mg Take 1 [facility] en 650 mg 9-08 tablet by ity o f CR tablet 00:00: mouth [place] 00 every 8 Medical (eight) Branch hours as needed for Pain or Fever. doxycycline Yes [id number] 100mg Take 1 [facility] hyclate 100 9-08 tablet by ity of mg tablet 00:00: mouth in [facility] 00 the Medical morning Branch and 1 tablet in the evening. Diclofenac 2022-0 Yes [id number] Apply to [facility] Sodium 9-08 area(s) 4 ity of (VOLTAREN) 00:00: (four) [place] 1 % gel 00 times Medical daily. Branch Apply 4 g QID on affected areas acetaminoph 2-0 Yes [id number] 650mg Take 1 [facility] en 650 mg 9-08 tablet by ity o f CR tablet 00:00: mouth [place] 00 every 8 Medical (eight) Branch hours as needed for Pain or Fever. doxycycline 2-0 Yes [id number] 100mg Take 1 [facility] hyclate 100 9-08 tablet by ity of mg tablet 00:00: mouth [place] 00 the Medical morning Branch and 1 tablet in the evening. Diclofenac 2-0 Yes [id number] Apply to [facility] Sodium 9-08 area(s) 4 ity of (VOLTAREN) 00:00: (four) [place] 1 % gel 00 times Medical daily. Branch Apply 4 g QID on affected areas acetaminoph 2021-0 Yes [id number] 650mg Take 1 [facility] en 650 mg 9-08 tablet by ity o f CR tablet 00:00: mouth [place] 00 every 8 Medical (eight) Branch hours as needed for Pain or Fever. doxycycline 2-0 Yes [id number] 100mg Take 1 [facility] hyclate 100 9-08 tablet by ity of mg tablet 00:00: mouth [place] 00 the Medical morning Branch and 1 tablet in the evening. Diclofenac 2-0 Yes [id number] Apply to [facility] Sodium 9-08 area(s) 4 ity of (VOLTAREN) 00:00: (four) [place] 1 % gel 00 times Medical daily. Branch Apply 4 g QID on affected areas acetaminoph 2-0 Yes [id number] 650mg Take 1 [facility] en 650 mg 9-08 tablet by ity o f CR tablet 00:00: mouth [place] 00 every 8 Medical (eight) Branch hours as needed for Pain or Fever. doxycycline 2-0 Yes [id number] 100mg Take 1 [facility] hyclate 100 9-08 tablet by ity of mg tablet 00:00: mouth in [place] 00 the Medical morning Branch and 1 tablet in the evening. Diclofenac 2022-0 Yes [id number] Apply to [facility] Sodium 9-08 area(s) 4 ity of (VOLTAREN) 00:00: (four) [place] 1 % gel 00 times Medical daily. Branch Apply 4 g QID on affected areas acetaminoph 2022-0 Yes [id number] 650mg Take 1 [facility] en 650 mg 9-08 tablet by ity o f CR tablet 00:00: mouth [place] 00 every 8 Medical (eight) Branch hours as needed for Pain or Fever. doxycycline 2-0 Yes [id number] 100mg Take 1 [facility] hyclate 100 9-08 tablet by ity of mg tablet 00:00: mouth in [place] 00 the Medical morning Branch and 1 tablet in the evening. Diclofenac 2-0 Yes [id number] Apply to [facility] Sodium 9-08 area(s) 4 ity of (VOLTAREN) 00:00: (four) [place] 1 % gel 00 times Medical daily. Branch Apply 4 g QID on affected areas acetaminoph 2021-0 Yes [id number] 650mg Take 1 [facility] en 650 mg 9-08 tablet by ity o f CR tablet 00:00: mouth [place] 00 every 8 Medical (eight) Branch hours as needed for Pain or Fever. doxycycline 2021-0 Yes [id number] 100mg Take 1 [facility] hyclate 100 9-08 tablet by ity of mg tablet 00:00: mouth in [place] 00 the Medical morning Branch and 1 tablet in the evening. Diclofenac 2-0 Yes [id number] Apply to [facility] Sodium 9-08 area(s) 4 ity of (VOLTAREN) 00:00: (four) [place] 1 % gel 00 times Medical daily. Branch Apply 4 g QID on affected areas acetaminoph 2022-0 Yes [id number] 650mg Take 1 [facility] en 650 mg 9-08 tablet by ity o f CR tablet 00:00: mouth [place] 00 every 8 Medical (eight) Branch hours as needed for Pain or Fever. Diclofenac 2022-0 Yes [id number] Apply to [facility] Sodium 9-08 area(s) 4 ity of (VOLTAREN) 00:00: (four) [place] 1 % gel 00 times Medical daily. Branch Apply 4 g QID on affected areas acetaminoph 2022-0 Yes [id number] 650mg Take 1 [facility] en 650 mg 9-08 tablet by ity o f CR tablet 00:00: mouth [place] 00 every 8 Medical (eight) Branch hours as needed for Pain or Fever. Diclofenac 2022-0 Yes [id number] Apply to [facility] Sodium 9-08 area(s) 4 ity of (VOLTAREN) 00:00: (four) [place] 1 % gel 00 times Medical daily. Branch Apply 4 g QID on affected areas acetaminoph 2022-0 Yes [id number] 650mg Take 1 [facility] en 650 mg 9-08 tablet by ity o f CR tablet 00:00: mouth [place] 00 every 8 Medical (eight) Branch hours as needed for Pain or Fever. Diclofenac 2-0 Yes [id number] Apply to [facility] Sodium 9-08 area(s) 4 ity of (VOLTAREN) 00:00: (four) [place] 1 % gel 00 times Medical daily. Branch Apply 4 g QID on affected areas acetaminoph 2022-0 Yes [id number] 650mg Take 1 [facility] en 650 mg 9-08 tablet by ity o f CR tablet 00:00: mouth [place] 00 every 8 Medical (eight) Branch hours as needed for Pain or Fever. Diclofenac 2-0 Yes [id number] Apply to [facility] Sodium 9-08 area(s) 4 ity of (VOLTAREN) 00:00: (four) [place] 1 % gel 00 times Medical daily. Branch Apply 4 g QID on affected areas acetaminoph 2022-0 Yes [id number] 650mg Take 1 [facility] en 650 mg 9-08 tablet by ity o f CR tablet 00:00: mouth [place] 00 every 8 Medical (eight) Branch hours as needed for Pain or Fever. Diclofenac 2-0 Yes [id number] Apply to [facility] Sodium 9-08 area(s) 4 ity of (VOLTAREN) 00:00: (four) [place] 1 % gel 00 times Medical daily. Branch Apply 4 g QID on affected areas acetaminoph 2022-0 Yes [id number] 650mg Take 1 [facility] en 650 mg 9-08 tablet by ity o f CR tablet 00:00: mouth [place] 00 every 8 Medical (eight) Branch hours as needed for Pain or Fever. Diclofenac 2022-0 Yes [id number] Apply to [facility] Sodium 9-08 area(s) 4 ity of (VOLTAREN) 00:00: (four) [place] 1 % gel 00 times Medical daily. Branch Apply 4 g QID on affected areas acetaminoph 2022-0 Yes [id number] 650mg Take 1 [facility] en 650 mg 9-08 tablet by ity o f CR tablet 00:00: mouth [place] 00 every 8 Medical (eight) Branch hours as needed for Pain or Fever. Diclofenac 2022-0 Yes [id number] Apply to [facility] Sodium 9-08 area(s) 4 ity of (VOLTAREN) 00:00: (four) [place] 1 % gel 00 times Medical daily. Branch Apply 4 g QID on affected areas acetaminoph 2022-0 Yes [id number] 650mg Take 1 [facility] en 650 mg 9-08 tablet by ity o f CR tablet 00:00: mouth [place] 00 every 8 Medical (eight) Branch hours as needed for Pain or Fever. Diclofenac 2-0 Yes [id number] Apply to [facility] Sodium 9-08 area(s) 4 ity of (VOLTAREN) 00:00: (four) [place] 1 % gel 00 times Medical daily. Branch Apply 4 g QID on affected areas acetaminoph 2022-0 Yes [id number] 650mg Take 1 [facility] en 650 mg 9-08 tablet by ity o f CR tablet 00:00: mouth [place] 00 every 8 Medical (eight) Branch hours as needed for Pain or Fever. Diclofenac 2-0 Yes [id number] Apply to [facility] Sodium 9-08 area(s) 4 ity of (VOLTAREN) 00:00: (four) [place] 1 % gel 00 times Medical daily. Branch Apply 4 g QID on affected areas acetaminoph 2022-0 Yes [id number] 650mg Take 1 [facility] en 650 mg 9-08 tablet by ity o f CR tablet 00:00: mouth [place] 00 every 8 Medical (eight) Branch hours as needed for Pain or Fever. Diclofenac 2-0 Yes [id number] Apply to [facility] Sodium 9-08 area(s) 4 ity of (VOLTAREN) 00:00: (four) [place] 1 % gel 00 times Medical daily. Branch Apply 4 g QID on affected areas acetaminoph 2022-0 Yes [id number] 650mg Take 1 [facility] en 650 mg 9-08 tablet by ity o f CR tablet 00:00: mouth [place] 00 every 8 Medical (eight) Branch hours as needed for Pain or Fever. Diclofenac 2022-0 Yes [id number] Apply to [facility] Sodium 9-08 area(s) 4 ity of (VOLTAREN) 00:00: (four) [place] 1 % gel 00 times Medical daily. Branch Apply 4 g QID on affected areas acetaminoph 2022-0 Yes [id number] 650mg Take 1 [facility] en 650 mg 9-08 tablet by ity o f CR tablet 00:00: mouth [place] 00 every 8 Medical (eight) Branch hours as needed for Pain or Fever. Diclofenac 2-0 Yes [id number] Apply to [facility] Sodium 9-08 area(s) 4 ity of (VOLTAREN) 00:00: (four) [place] 1 % gel 00 times Medical daily. Branch Apply 4 g QID on affected areas acetaminoph 2022-0 Yes [id number] 650mg Take 1 [facility] en 650 mg 9-08 tablet by ity o f CR tablet 00:00: mouth [place] 00 every 8 Medical (eight) Branch hours as needed for Pain or Fever. Diclofenac 2-0 Yes [id number] Apply to [facility] Sodium 9-08 area(s) 4 ity of (VOLTAREN) 00:00: (four) [place] 1 % gel 00 times Medical daily. Branch Apply 4 g QID on affected areas acetaminoph 2-0 Yes [id number] 650mg Take 1 [facility] en 650 mg 9-08 tablet by ity o f CR tablet 00:00: mouth [place] 00 every 8 Medical (eight) Branch hours as needed for Pain or Fever. Diclofenac 2-0 Yes [id number] Apply to [facility] Sodium 9-08 area(s) 4 ity of (VOLTAREN) 00:00: (four) [place] 1 % gel 00 times Medical daily. Branch Apply 4 g QID on affected areas acetaminoph 2-0 Yes [id number] 650mg Take 1 [facility] en 650 mg 9-08 tablet by ity o f CR tablet 00:00: mouth [place] 00 every 8 Medical (eight) Branch hours as needed for Pain or Fever. Diclofenac 2-0 Yes [id number] Apply to [facility] Sodium 9-08 area(s) 4 ity of (VOLTAREN) 00:00: (four) [place] 1 % gel 00 times Medical daily. Branch Apply 4 g QID on affected areas acetaminoph 2022-0 Yes [id number] 650mg Take 1 [facility] en 650 mg 9-08 tablet by ity o f CR tablet 00:00: mouth [place] 00 every 8 Medical (eight) Branch hours as needed for Pain or Fever. Diclofenac 2022-0 Yes [id number] Apply to [facility] Sodium 9-08 area(s) 4 ity of (VOLTAREN) 00:00: (four) [place] 1 % gel 00 times Medical daily. Branch Apply 4 g QID on affected areas acetaminoph 2022-0 Yes [id number] 650mg Take 1 [facility] en 650 mg 9-08 tablet by ity o f CR tablet 00:00: mouth [place] 00 every 8 Medical (eight) Branch hours as needed for Pain or Fever. Diclofenac 2-0 Yes [id number] Apply to [facility] Sodium 9-08 area(s) 4 ity of (VOLTAREN) 00:00: (four) [place] 1 % gel 00 times Medical daily. Branch Apply 4 g QID on affected areas acetaminoph 2022-0 Yes [id number] 650mg Take 1 [facility] en 650 mg 9-08 tablet by ity o f CR tablet 00:00: mouth [place] 00 every 8 Medical (eight) Branch hours as needed for Pain or Fever. Diclofenac 2-0 Yes [id number] Apply to [facility] Sodium 9-08 area(s) 4 ity of (VOLTAREN) 00:00: (four) [place] 1 % gel 00 times Medical daily. Branch Apply 4 g QID on affected areas acetaminoph 2022-0 Yes [id number] 650mg Take 1 [facility] en 650 mg 9-08 tablet by ity o f CR tablet 00:00: mouth [place] 00 every 8 Medical (eight) Branch hours as needed for Pain or Fever. Diclofenac 2-0 Yes [id number] Apply to [facility] Sodium 9-08 area(s) 4 ity of (VOLTAREN) 00:00: (four) [place] 1 % gel 00 times Medical daily. Branch Apply 4 g QID on affected areas acetaminoph 2022-0 Yes [id number] 650mg Take 1 [facility] en 650 mg 9-08 tablet by ity o f CR tablet 00:00: mouth [place] 00 every 8 Medical (eight) Branch hours as needed for Pain or Fever. Diclofenac 2-0 Yes [id number] Apply to [facility] Sodium 9-08 area(s) 4 ity of (VOLTAREN) 00:00: (four) [place] 1 % gel 00 times Medical daily. Branch Apply 4 g QID on affected areas acetaminoph 2022-0 Yes [id number] 650mg Take 1 [facility] en 650 mg 9-08 tablet by ity o f CR tablet 00:00: mouth [place] 00 every 8 Medical (eight) Branch hours as needed for Pain or Fever. Diclofenac 2-0 Yes [id number] Apply to [facility] Sodium 9-08 area(s) 4 ity of (VOLTAREN) 00:00: (four) [place] 1 % gel 00 times Medical daily. Branch Apply 4 g QID on affected areas acetaminoph 2-0 Yes [id number] 650mg Take 1 [facility] en 650 mg 9-08 tablet by ity o f CR tablet 00:00: mouth [place] 00 every 8 Medical (eight) Branch hours as needed for Pain or Fever. Diclofenac 2021-0 Yes [id number] Apply to [facility] Sodium 9-08 area(s) 4 ity of (VOLTAREN) 00:00: (four) [place] 1 % gel 00 times Medical daily. Branch Apply 4 g QID on affected areas acetaminoph 2-0 Yes [id number] 650mg Take 1 [facility] en 650 mg 9-08 tablet by ity o f CR tablet 00:00: mouth [place] 00 every 8 Medical (eight) Branch hours as needed for Pain or Fever. Diclofenac 2021-0 Yes [id number] Apply to [facility] Sodium 9-08 area(s) 4 ity of (VOLTAREN) 00:00: (four) [place] 1 % gel 00 times Medical daily. Branch Apply 4 g QID on affected areas acetaminoph 2-0 Yes [id number] 650mg Take 1 [facility] en 650 mg 9-08 tablet by ity o f CR tablet 00:00: mouth [place] 00 every 8 Medical (eight) Branch hours as needed for Pain or Fever. Diclofenac 2021-0 Yes [id number] Apply to [facility] Sodium 9-08 area(s) 4 ity of (VOLTAREN) 00:00: (four) [place] 1 % gel 00 times Medical daily. Branch Apply 4 g QID on affected areas acetaminoph 2-0 Yes [id number] 650mg Take 1 [facility] en 650 mg 9-08 tablet by ity o f CR tablet 00:00: mouth [place] 00 every 8 Medical (eight) Branch hours as needed for Pain or Fever. Diclofenac 2-0 Yes [id number] Apply to [facility] Sodium 9-08 area(s) 4 ity of (VOLTAREN) 00:00: (four) [place] 1 % gel 00 times Medical daily. Branch Apply 4 g QID on affected areas acetaminoph 2022-0 Yes [id number] 650mg Take 1 [facility] en 650 mg 9-08 tablet by ity o f CR tablet 00:00: mouth [place] 00 every 8 Medical (eight) Branch hours as needed for Pain or Fever. Diclofenac 2021-0 Yes [id number] Apply to [facility] Sodium 9-08 area(s) 4 ity of (VOLTAREN) 00:00: (four) [place] 1 % gel 00 times Medical daily. Branch Apply 4 g QID on affected areas acetaminoph 2021-0 Yes [id number] 650mg Take 1 [facility] en 650 mg 9-08 tablet by ity o f CR tablet 00:00: mouth [place] 00 every 8 Medical (eight) Branch hours as needed for Pain or Fever. Diclofenac 2021-0 Yes [id number] Apply to [facility] Sodium 9-08 area(s) 4 ity of (VOLTAREN) 00:00: (four) [place] 1 % gel 00 times Medical daily. Branch Apply 4 g QID on affected areas acetaminoph 2021-0 Yes [id number] 650mg Take 1 [facility] en 650 mg 9-08 tablet by ity o f CR tablet 00:00: mouth [place] 00 every 8 Medical (eight) Branch hours as needed for Pain or Fever. Diclofenac 2021-0 Yes [id number] Apply to [facility] Sodium 9-08 area(s) 4 ity of (VOLTAREN) 00:00: (four) [place] 1 % gel 00 times Medical daily. Branch Apply 4 g QID on affected areas acetaminoph 2021-0 Yes [id number] 650mg Take 1 [facility] en 650 mg 9-08 tablet by ity o f CR tablet 00:00: mouth [place] 00 every 8 Medical (eight) Branch hours as needed for Pain or Fever. doxycycline 2021-0 2021- No [id number] 100mg Take 1 [facility] hyclate 100 9-08 10-13 tablet by it y of mg tablet 00:00: 00:00 mouth in [place] 00 :00 the Medical morning Branch and 1 tablet in the evening. doxycycline 2021-0 2021- No [id number] 100mg Take 1 [facility] hyclate 100 9-08 10-13 tablet by it y of mg tablet 00:00: 00:00 mouth in [place] 00 :00 the Medical morning Branch and 1 tablet in the evening. LEVOTHYROXI 2021-0 Yes [id number] TAKE ONE [facility] NE 25 mcg 9-07 (1) TABLET ity of tablet 00:00: BY MOUTH [place] 00 EVERY Medical MORNING. Branch LEVOTHYROXI 2021-0 Yes [id number] TAKE ONE [facility] 25 mcg 9-07 (1) TABLET ity of tablet 00:00: BY MOUTH [place] 00 EVERY Medical MORNING. Branch LEVOTHYROXI 2021-0 Yes [id number] TAKE ONE [facility] NE 25 mcg 9-07 (1) TABLET ity of tablet 00:00: BY MOUTH [place] 00 EVERY Medical MORNING. Branch LEVOTHYROXI 2-0 Yes [id number] TAKE ONE [facility] NE 25 mcg 9-07 (1) TABLET ity of tablet 00:00: BY MOUTH [place] 00 EVERY Medical MORNING. Branch LEVOTHYROXI 2021-0 Yes [id number] TAKE ONE [facility] NE 25 mcg 9-07 (1) TABLET ity of tablet 00:00: BY MOUTH [place] 00 EVERY Medical MORNING. Branch LEVOTHYROXI 2021-0 Yes [id number] TAKE ONE [facility] NE 25 mcg 9-07 (1) TABLET ity of tablet 00:00: BY MOUTH [place] 00 EVERY Medical MORNING. Branch LEVOTHYROXI 2021-0 Yes [id number] TAKE ONE [facility] 25 mcg 9-07 (1) TABLET ity of tablet 00:00: BY MOUTH [place] 00 EVERY Medical MORNING. Branch LEVOTHYROXI 2021-0 Yes [id number] TAKE ONE [facility] 25 mcg 9-07 (1) TABLET ity of tablet 00:00: BY MOUTH [place] 00 EVERY Medical MORNING. Branch LEVOTHYROXI 2021-0 Yes [id number] TAKE ONE [facility] 25 mcg 9-07 (1) TABLET ity of tablet 00:00: BY MOUTH [place] 00 EVERY Medical MORNING. Branch LEVOTHYROXI 2-0 Yes [id number] TAKE ONE [facility] 25 mcg 9-07 (1) TABLET ity of tablet 00:00: BY MOUTH [place] 00 EVERY Medical MORNING. Branch LEVOTHYROXI 2021-0 Yes [id number] TAKE ONE [facility] 25 mcg 9-07 (1) TABLET ity of tablet 00:00: BY MOUTH [place] 00 EVERY Medical MORNING. Branch LEVOTHYROXI 2-0 Yes [id number] TAKE ONE [facility] 25 mcg 9-07 (1) TABLET ity of tablet 00:00: BY MOUTH [place] 00 EVERY Medical MORNING. Branch LEVOTHYROXI 2-0 Yes [id number] TAKE ONE [facility] 25 mcg 9-07 (1) TABLET ity of tablet 00:00: BY MOUTH [place] 00 EVERY Medical MORNING. Branch LEVOTHYROXI 2-0 Yes [id number] TAKE ONE [facility] 25 mcg 9-07 (1) TABLET ity of tablet 00:00: BY MOUTH [place] 00 EVERY Medical MORNING. Branch LEVOTHYROXI 2-0 Yes [id number] TAKE ONE [facility] 25 mcg 9-07 (1) TABLET ity of tablet 00:00: BY MOUTH [place] 00 EVERY Medical MORNING. Branch LEVOTHYROXI 2-0 Yes [id number] TAKE ONE [facility] 25 mcg 9-07 (1) TABLET ity of tablet 00:00: BY MOUTH [place] 00 EVERY Medical MORNING. Branch LEVOTHYROXI 2-0 Yes [id number] TAKE ONE [facility] 25 mcg 9-07 (1) TABLET ity of tablet 00:00: BY MOUTH [place] 00 EVERY Medical MORNING. Branch LEVOTHYROXI 2022-0 Yes [id number] TAKE ONE [facility] 25 mcg 9-07 (1) TABLET ity of tablet 00:00: BY MOUTH [place] 00 EVERY Medical MORNING. Branch LEVOTHYROXI 2-0 Yes [id number] TAKE ONE [facility] 25 mcg 9-07 (1) TABLET ity of tablet 00:00: BY MOUTH [place] 00 EVERY Medical MORNING. Branch LEVOTHYROXI 2-0 Yes [id number] TAKE ONE [facility] 25 mcg 9-07 (1) TABLET ity of tablet 00:00: BY MOUTH [place] 00 EVERY Medical MORNING. Branch LEVOTHYROXI 2-0 Yes [id number] TAKE ONE [facility] 25 mcg 9-07 (1) TABLET ity of tablet 00:00: BY MOUTH [place] 00 EVERY Medical MORNING. Branch LEVOTHYROXI 2-0 Yes [id number] TAKE ONE [facility] 25 mcg 9-07 (1) TABLET ity of tablet 00:00: BY MOUTH [place] 00 EVERY Medical MORNING. Branch LEVOTHYROXI 2-0 Yes [id number] TAKE ONE [facility] 25 mcg 9-07 (1) TABLET ity of tablet 00:00: BY MOUTH [place] 00 EVERY Medical MORNING. Branch LEVOTHYROXI 2022-0 Yes [id number] TAKE ONE [facility] 25 mcg 9-07 (1) TABLET ity of tablet 00:00: BY MOUTH [place] 00 EVERY Medical MORNING. Branch LEVOTHYROXI 2022-0 Yes [id number] TAKE ONE [facility] 25 mcg 12-22 (1) TABLET ity of tablet 00:00: BY MOUTH [place] 00 EVERY Medical MORNING. Branch LEVOTHYROXI 3- No [id number] TAKE ONE [facility] 25 mcg 12-22 03-09 (1) TABLET ity of tablet 00:00: 00:00 BY MOUTH [place] 00 :00 EVERY Medical MORNING. Branch amitriptyli Yes [id number] 10mg Take 1 [facility] ne 10 mg 8-24 tablet by ity of tablet 00:00: mouth at [place] 00 bedtime. Medical Branch tiZANidine Yes [id number] 2mg Take 1 [facility] 2 mg tablet 8-24 tablet by ity of 00:00: mouth [place] 00 every 8 Medical (eight) Branch hours as needed (muscle spasms). adalimumab Yes [id number] Start [facility] 40 mg/0.4 8-24 160mg SC x ity of mL 00:00: 1 on Day [place] injection 00 1, then Medical 80mg SC x Branch 1 on day 15, then 40mg SC qWeek. lidocaine Yes [id number] Apply 2g [facility] % ointment 8-24 to ity of 00:00: affected [place] 00 areas BID Medical PRN Branch adalimumab Yes [id number] Start Un [facility] 40 mg/0.4 8-24 160mg SC x ity of mL 00:00: 1 on Day [place] injection 00 1, then Medical 80mg SC x Branch 1 on day 15, then 40mg SC qWeek. lidocaine 5 Yes [id number] Apply 2g [facility] % ointment 8-24 to ity of 00:00: affected [place] 00 areas BID Medical PRN Branch adalimumab Yes [id number] Start Un [facility] 40 mg/0.4 8-24 160mg SC x ity of mL 00:00: 1 on Day [place] injection 00 1, then Medical 80mg SC x Branch 1 on day 15, then 40mg SC qWeek. lidocaine 5 Yes [id number] Apply 2g [facility] % ointment 8-24 to ity of 00:00: affected [place] 00 areas BID Medical PRN Branch adalimumab Yes [id number] Start Un [facility] 40 mg/0.4 8-24 160mg SC x ity of mL 00:00: 1 on Day [place] injection 00 1, then Medical 80mg SC x Branch 1 on day 15, then 40mg SC qWeek. lidocaine Yes [id number] Apply 2g [facility] % ointment 8-24 to ity of 00:00: affected [place] 00 areas BID Medical PRN Branch adalimumab Yes [id number] Start Un [facility] 40 mg/0.4 8-24 160mg SC x ity of mL 00:00: 1 on Day [place] injection 00 1, then Medical 80mg SC x Branch 1 on day 15, then 40mg SC qWeek. lidocaine Yes [id number] Apply 2g [facility] % ointment 8-24 to ity of 00:00: affected [place] 00 areas BID Medical PRN Branch adalimumab Yes [id number] Start Un [facility] 40 mg/0.4 8-24 160mg SC x ity of mL 00:00: 1 on Day [place] injection 00 , then Medical 80mg SC x Branch 1 on day 15, then 40mg SC qWeek. lidocaine Yes [id number] Apply 2g [facility] % ointment 8-24 to ity of 00:00: affected 00 areas BID Medical PRN Branch adalimumab Yes [id number] Start Un [facility] 40 mg/0.4 8-24 160mg SC x ity of mL 00:00: 1 on Day [place] injection 00 1, then Medical 80mg SC x Branch 1 on day 15, then 40mg SC qWeek. lidocaine Yes [id number] Apply 2g [facility] % ointment 8-24 to ity of 00:00: affected [place] 00 areas BID Medical PRN Branch adalimumab 2021- Yes [id number] Start Un [facility] 40 mg/0.4 8-24 160mg SC x ity of mL 00:00: 1 on Day [place] injection 00 1, then Medical 80mg SC x Branch 1 on day 15, then 40mg SC qWeek. lidocaine 5 Yes [id number] Apply 2g [facility] % ointment 8-24 to ity of 00:00: affected [place] 00 areas BID Medical PRN Branch adalimumab 2021- Yes [id number] Start Un [facility] 40 mg/0.4 8-24 160mg SC x ity of mL 00:00: 1 on Day [place] injection 00 1, then Medical 80mg SC x Branch 1 on day 15, then 40mg SC qWeek. lidocaine 5 Yes [id number] Apply 2g [facility] % ointment 8-24 to ity of 00:00: affected [place] 00 areas BID Medical PRN Branch adalimumab Yes [id number] Start Un [facility] 40 mg/0.4 8-24 160mg SC x ity of mL 00:00: 1 on Day [place] injection 00 1, then Medical 80mg SC x Branch 1 on day 15, then 40mg SC qWeek. lidocaine Yes [id number] Apply 2g [facility] % ointment 8-24 to ity of 00:00: affected 00 areas BID Medical PRN Branch adalimumab Yes [id number] Start Un [facility] 40 mg/0.4 8-24 160mg SC x ity of mL 00:00: 1 on Day [place] injection 00 1, then Medical 80mg SC x Branch 1 on day 15, then 40mg SC qWeek. lidocaine Yes [id number] Apply 2g [facility] % ointment 8-24 to ity of 00:00: affected 00 areas BID Medical PRN Branch adalimumab Yes [id number] Start Un [facility] 40 mg/0.4 8-24 160mg SC x ity of mL 00:00: 1 on Day [place] injection 00 1, then Medical 80mg SC x Branch 1 on day 15, then 40mg SC qWeek. lidocaine Yes [id number] Apply 2g [facility] % ointment 8-24 to ity of 00:00: affected 00 areas BID Medical PRN Branch adalimumab Yes [id number] Start Un [facility] 40 mg/0.4 8-24 160mg SC x ity of mL 00:00: 1 on Day [place] injection 00 1, then Medical 80mg SC x Branch 1 on day 15, then 40mg SC qWeek. lidocaine 5 Yes [id number] Apply 2g [facility] % ointment 8-24 to ity of 00:00: affected [place] 00 areas BID Medical PRN Branch adalimumab 2021- Yes [id number] Start Un [facility] 40 mg/0.4 8-24 160mg SC x ity of mL 00:00: 1 on Day [place] injection 00 1, then Medical 80mg SC x Branch 1 on day 15, then 40mg SC qWeek. lidocaine 5 2021- Yes [id number] Apply 2g [facility] % ointment 8-24 to ity of 00:00: affected [place] 00 areas BID Medical PRN Branch adalimumab 2021-0 Yes [id number] Start Un [facility] 40 mg/0.4 8-24 160mg SC x ity of mL 00:00: 1 on Day [place] injection 00 1, then Medical 80mg SC x Branch 1 on day 15, then 40mg SC qWeek. lidocaine Yes [id number] Apply 2g [facility] % ointment 8-24 to ity of 00:00: affected [place] 00 areas BID Medical PRN Branch adalimumab 2021- Yes [id number] Start Un [facility] 40 mg/0.4 8-24 160mg SC x ity of mL 00:00: 1 on Day [place] injection 00 1, then Medical 80mg SC x Branch 1 on day 15, then 40mg SC qWeek. lidocaine Yes [id number] Apply 2g [facility] % ointment 8-24 to ity of 00:00: affected [place] 00 areas BID Medical PRN Branch adalimumab 2021- Yes [id number] Start Un [facility] 40 mg/0.4 8-24 160mg SC x ity of mL 00:00: 1 on Day [place] injection 00 1, then Medical 80mg SC x Branch 1 on day 15, then 40mg SC qWeek. lidocaine Yes [id number] Apply 2g [facility] % ointment 8-24 to ity of 00:00: affected [place] 00 areas BID Medical PRN Branch adalimumab 2021- Yes [id number] Start Un [facility] 40 mg/0.4 8-24 160mg SC x ity of mL 00:00: 1 on Day [place] injection 00 1, then Medical 80mg SC x Branch 1 on day 15, then 40mg SC qWeek. lidocaine 5 2021- Yes [id number] Apply 2g [facility] % ointment 8-24 to ity of 00:00: affected [place] 00 areas BID Medical PRN Branch adalimumab 2021- Yes [id number] Start Un [facility] 40 mg/0.4 8-24 160mg SC x ity of mL 00:00: 1 on Day [place] injection 00 1, then Medical 80mg SC x Branch 1 on day 15, then 40mg SC qWeek. lidocaine 5 Yes [id number] Apply 2g [facility] % ointment 8-24 to ity of 00:00: affected [place] 00 areas BID Medical PRN Branch adalimumab 2021- Yes [id number] Start Un [facility] 40 mg/0.4 8-24 160mg SC x ity of mL 00:00: 1 on Day [place] injection 00 1, then Medical 80mg SC x Branch 1 on day 15, then 40mg SC qWeek. lidocaine 5 Yes [id number] Apply 2g [facility] % ointment 8-24 to ity of 00:00: affected 00 areas BID Medical PRN Branch adalimumab Yes [id number] Start Un [facility] 40 mg/0.4 8-24 160mg SC x ity of mL 00:00: 1 on Day [place] injection 00 1, then Medical 80mg SC x Branch 1 on day 15, then 40mg SC qWeek. lidocaine Yes [id number] Apply 2g [facility] % ointment 8-24 to ity of 00:00: affected [place] 00 areas BID Medical PRN Branch adalimumab 2021- Yes [id number] Start Un [facility] 40 mg/0.4 8-24 160mg SC x ity of mL 00:00: 1 on Day [place] injection 00 1, then Medical 80mg SC x Branch 1 on day 15, then 40mg SC qWeek. lidocaine Yes [id number] Apply 2g [facility] % ointment 8-24 to ity of 00:00: affected 00 areas BID Medical PRN Branch adalimumab 2021- Yes [id number] Start Un [facility] 40 mg/0.4 8-24 160mg SC x ity of mL 00:00: 1 on Day [place] injection 00 1, then Medical 80mg SC x Branch 1 on day 15, then 40mg SC qWeek. lidocaine 5 2021- Yes [id number] Apply 2g [facility] % ointment 8-24 to ity of 00:00: affected [place] 00 areas BID Medical PRN Branch adalimumab 2021- Yes [id number] Start Un [facility] 40 mg/0.4 8-24 160mg SC x ity of mL 00:00: 1 on Day [place] injection 00 1, then Medical 80mg SC x Branch 1 on day 15, then 40mg SC qWeek. lidocaine 5 2021- Yes [id number] Apply 2g [facility] % ointment 8-24 to ity of 00:00: affected [place] 00 areas BID Medical PRN Branch adalimumab 2021- Yes [id number] Start Un [facility] 40 mg/0.4 8-24 160mg SC x ity of mL 00:00: 1 on Day [place] injection 00 1, then Medical 80mg SC x Branch 1 on day 15, then 40mg SC qWeek. lidocaine 5 Yes [id number] Apply 2g [facility] % ointment 8-24 to ity of 00:00: affected 00 areas BID Medical PRN Branch adalimumab 2021- Yes [id number] Start Un [facility] 40 mg/0.4 8-24 160mg SC x ity of mL 00:00: 1 on Day [place] injection 00 1, then Medical 80mg SC x Branch 1 on day 15, then 40mg SC qWeek. lidocaine 5 Yes [id number] Apply 2g [facility] % ointment 8-24 to ity of 00:00: affected [place] 00 areas BID Medical PRN Branch adalimumab 2021- Yes [id number] Start Un [facility] 40 mg/0.4 8-24 160mg SC x ity of mL 00:00: 1 on Day [place] injection 00 1, then Medical 80mg SC x Branch 1 on day 15, then 40mg SC qWeek. lidocaine 5 2021- Yes [id number] Apply 2g [facility] % ointment 8-24 to ity of 00:00: affected 00 areas BID Medical PRN Branch adalimumab 2021- Yes [id number] Start Un [facility] 40 mg/0.4 8-24 160mg SC x ity of mL 00:00: 1 on Day [place] injection 00 1, then Medical 80mg SC x Branch 1 on day 15, then 40mg SC qWeek. lidocaine 5 2021- Yes [id number] Apply 2g [facility] % ointment 8-24 to ity of 00:00: affected [place] 00 areas BID Medical PRN Branch adalimumab 2021-0 Yes [id number] Start Un [facility] 40 mg/0.4 8-24 160mg SC x ity of mL 00:00: 1 on Day [place] injection 00 1, then Medical 80mg SC x Branch 1 on day 15, then 40mg SC qWeek. lidocaine 5 0 Yes [id number] Apply 2g [facility] % ointment 8-24 to ity of 00:00: affected [place] 00 areas BID Medical PRN Branch adalimumab 2021-0 Yes [id number] Start Un [facility] 40 mg/0.4 8-24 160mg SC x ity of mL 00:00: 1 on Day [place] injection 00 1, then Medical 80mg SC x Branch 1 on day 15, then 40mg SC qWeek. lidocaine 5 2021-0 Yes [id number] Apply 2g [facility] % ointment 8-24 to ity of 00:00: affected [place] 00 areas BID Medical PRN Branch amitriptyli Yes [id number] 10mg Take 1 [facility] ne 10 mg 8-24 tablet by ity of tablet 00:00: mouth at [place] 00 bedtime. Medical Branch tiZANidine Yes [id number] 2mg Take 1 [facility] 2 mg tablet 8-24 tablet by ity of 00:00: mouth [place] 00 every 8 Medical (eight) Branch hours as needed (muscle spasms). adalimumab Yes [id number] Start Un [facility] 40 mg/0.4 8-24 160mg SC x ity of mL 00:00: 1 on Day [place] injection 00 1, then Medical 80mg SC x Branch 1 on day 15, then 40mg SC qWeek. lidocaine 5 0 Yes [id number] Apply 2g [facility] % ointment 8-24 to ity of 00:00: affected [place] 00 areas BID Medical PRN Branch amitriptyli 0 Yes [id number] 10mg Take 1 [facility] ne 10 mg 8-24 tablet by ity of tablet 00:00: mouth at [place] 00 bedtime. Medical Branch tiZANidine 0 Yes [id number] 2mg Take 1 [facility] n[facility] 2 mg tablet 8-24 tablet by ity of 00:00: mouth [place] 00 every 8 Medical (eight) Branch hours as needed (muscle spasms). adalimumab 0 Yes [id number] Start Un [facility] 40 mg/0.4 8-24 160mg SC x ity of mL 00:00: 1 on Day [place] injection 00 1, then Medical 80mg SC x Branch 1 on day 15, then 40mg SC qWeek. lidocaine 5 0 Yes [id number] Apply 2g [facility] % ointment 8-24 to ity of 00:00: affected [place] 00 areas BID Medical PRN Branch amitriptyli 0 Yes [id number] 10mg Take 1 [facility] ne 10 mg 8-24 tablet by ity of tablet 00:00: mouth at [place] 00 bedtime. Medical Branch tiZANidine 0 Yes [id number] 2mg Take 1 [facility] n[facility] 2 mg tablet 8-24 tablet by ity of 00:00: mouth [place] 00 every 8 Medical (eight) Branch hours as needed (muscle spasms). adalimumab Yes [id number] Start Un [facility] 40 mg/0.4 8-24 160mg SC x ity of mL 00:00: 1 on Day [place] injection 00 1, then Medical 80mg SC x Branch 1 on day 15, then 40mg SC qWeek. lidocaine 5 Yes [id number] Apply 2g [facility] % ointment 8-24 to ity of 00:00: affected [place] 00 areas BID Medical PRN Branch amitriptyli 0 Yes [id number] 10mg Take 1 [facility] ne 10 mg 8-24 tablet by ity of tablet 00:00: mouth at [place] 00 bedtime. Medical Branch tiZANidine 0 Yes [id number] 2mg Take 1 [facility] nivers 2 mg tablet 8-24 tablet by ity of 00:00: mouth [place] 00 every 8 Medical (eight) Branch hours as needed (muscle spasms). adalimumab Yes [id number] Start Un [facility] 40 mg/0.4 8-24 160mg SC x ity of mL 00:00: 1 on Day [place] injection 00 1, then Medical 80mg SC x Branch 1 on day 15, then 40mg SC qWeek. lidocaine 5 0 Yes [id number] Apply 2g [facility] % ointment 8-24 to ity of 00:00: affected [place] 00 areas BID Medical PRN Branch amitriptyli 0 Yes [id number] 10mg Take 1 [facility] ne 10 mg 8-24 tablet by ity of tablet 00:00: mouth at [place] 00 bedtime. Medical Branch tiZANidine 0 Yes [id number] 2mg Take 1 U nivers 2 mg tablet 8-24 tablet by ity of 00:00: mouth [place] 00 every 8 Medical (eight) Branch hours as needed (muscle spasms). adalimumab Yes [id number] Start Un [facility] 40 mg/0.4 8-24 160mg SC x ity of mL 00:00: 1 on Day [place] injection 00 1, then Medical 80mg SC x Branch 1 on day 15, then 40mg SC qWeek. lidocaine 5 Yes [id number] Apply 2g [facility] % ointment 8-24 to ity of 00:00: affected [place] 00 areas BID Medical PRN Branch amitriptyli 2021- No [id number] 10mg Take 1 [facility] ne 10 mg 8-24 10-13 tablet by ity o f tablet 00:00: 00:00 mouth at [place] 00 :00 bedtime. Medical Branch tiZANidine 2021- No [id number] 2mg Take 1 [facility] 2 mg tablet 8-24 10-13 tablet by it y of 00:00: 00:00 mouth [place] 00 :00 every 8 Medical (eight) Branch hours as needed (muscle spasms). amitriptyli 2021- No [id number] 10mg Take 1 [facility] ne 10 mg 8-24 10-13 tablet by ity o f tablet 00:00: 00:00 mouth at [place] 00 :00 bedtime. Medical Branch tiZANidine 2021- No [id number] 2mg Take 1 [facility] 2 mg tablet 8-24 10-13 tablet by it y of 00:00: 00:00 mouth [place] 00 :00 every 8 Medical (eight) Branch hours as needed (muscle spasms). LOSARTAN-HY Yes [id number] TAKE ONE [facility] DROCHLOROTH 8-12 (1) ity of IAZIDE 00:00: TABLET(S) [place] 50-12.5 mg 00 BY MOUTH Medic al per tablet ONCE A Branch DAY. LOSARTAN-HY 0 Yes [id number] TAKE ONE [facility] DROCHLOROTH 8-12 (1) ity of IAZIDE 00:00: TABLET(S) [place] 50-12.5 mg 00 BY MOUTH Medic al per tablet ONCE A Branch DAY. LOSARTAN-HY 0 Yes [id number] TAKE ONE [facility] DROCHLOROTH 8-12 (1) ity of IAZIDE 00:00: TABLET(S) [place] 50-12.5 mg 00 BY MOUTH Medic al per tablet ONCE A Branch DAY. LOSARTAN-HY 2-0 Yes [id number] TAKE ONE [facility] DROCHLOROTH 8-12 (1) ity of IAZIDE 00:00: TABLET(S) [place] 50-12.5 mg 00 BY MOUTH Medic al per tablet ONCE A Branch DAY. LOSARTAN-HY 2-0 Yes [id number] TAKE ONE [facility] DROCHLOROTH 8-12 (1) ity of IAZIDE 00:00: TABLET(S) [place] 50-12.5 mg 00 BY MOUTH Medic al per tablet ONCE A Branch DAY. LOSARTAN-HY 2021-0 Yes [id number] TAKE ONE [facility] DROCHLOROTH 8-12 (1) ity of IAZIDE 00:00: TABLET(S) [place] 50-12.5 mg 00 BY MOUTH Medic al per tablet ONCE A Branch DAY. LOSARTAN-HY 2021-0 Yes [id number] TAKE ONE [facility] DROCHLOROTH 8-12 (1) ity of IAZIDE 00:00: TABLET(S) [place] 50-12.5 mg 00 BY MOUTH Medic al per tablet ONCE A Branch DAY. LOSARTAN-HY 2021-0 Yes [id number] TAKE ONE [facility] DROCHLOROTH 8-12 (1) ity of IAZIDE 00:00: TABLET(S) [place] 50-12.5 mg 00 BY MOUTH Medic al per tablet ONCE A Branch DAY. LOSARTAN-HY 2021-0 2022- No [id number] TAKE ONE [facility] DROCHLOROTH 8-12 10-19 (1) ity of IAZIDE 00:00: 00:00 TABLET(S) [place] 50-12.5 mg 00 :00 BY MOUTH Medic al per tablet ONCE A Branch DAY. FLUoxetine 2021-0 Yes [id number] 20mg Take 1 U nivers 20 mg 6-17 capsule by ity of capsule 00:00: mouth [place] 00 daily. Medical Branch FLUoxetine 2021-0 Yes [id number] 20mg Take 1 U nivers 20 mg 6-17 capsule by ity of capsule 00:00: mouth [place] 00 daily. Medical Branch FLUoxetine 2021-0 Yes [id number] 20mg Take 1 U nivers 20 mg 6-17 capsule by ity of capsule 00:00: mouth [place] 00 daily. Medical Branch FLUoxetine 2022-0 Yes [id number] 20mg Take 1 U nivers 20 mg 6-17 capsule by ity of capsule 00:00: mouth [place] 00 daily. [facility] Branch FLUoxetine 0 Yes [id number] 20mg Take 1 U nivers 20 mg 6-17 capsule by ity of capsule 00:00: mouth [place] 00 daily. [facility] Branch FLUoxetine 0 Yes [id number] 20mg Take 1 U nivers 20 mg 6-17 capsule by ity of capsule 00:00: mouth [place] 00 daily. [facility] Branch FLUoxetine 2021- No [id number] 20mg Take 1 [facility] 20 mg 6-17 10-13 capsule by ity of capsule 00:00: 00:00 mouth [place] 00 :00 daily. [facility] FLUoxetine 2021-2021- No [id number] 20mg Take 1 [facility] 20 mg 6-17 10-13 capsule by ity of capsule 00:00: 00:00 mouth [place] 00 :00 daily. [facility] Branch PANTOPRAZOL 0 Yes [id number] TAKE ONE [facility] E 20 mg EC 4-08 (1) ity of tablet 00:00: TABLET(S) [place] 00 BY MOUTH Medical ONCE A Branch DAY. PANTOPRAZOL 2021-0 Yes [id number] TAKE ONE [facility] E 20 mg EC 4-08 (1) ity of tablet 00:00: TABLET(S) [place] 00 BY MOUTH Medical ONCE A Branch DAY. PANTOPRAZOL 2021-0 Yes [id number] TAKE ONE [facility] E 20 mg EC 4-08 (1) ity of tablet 00:00: TABLET(S) [place] 00 BY MOUTH Medical ONCE A Branch DAY. PANTOPRAZOL 2021-0 Yes [id number] TAKE ONE [facility] E 20 mg EC 4-08 (1) ity of tablet 00:00: TABLET(S) [place] 00 BY MOUTH Medical ONCE A Branch DAY. PANTOPRAZOL 2021-0 Yes [id number] TAKE ONE [facility] E 20 mg EC 4-08 (1) ity of tablet 00:00: TABLET(S) [place] 00 BY MOUTH Medical ONCE A Branch DAY. PANTOPRAZOL 2021-0 Yes [id number] TAKE ONE [facility] E 20 mg EC 4-08 (1) ity of tablet 00:00: TABLET(S) [place] 00 BY MOUTH Medical ONCE A Branch DAY. PANTOPRAZOL 2021-0 Yes [id number] TAKE ONE [facility] E 20 mg EC 4-08 (1) ity of tablet 00:00: TABLET(S) [place] 00 BY MOUTH Medical ONCE A Branch DAY. PANTOPRAZOL 2-0 Yes [id number] TAKE ONE [facility] E 20 mg EC 4-08 (1) ity of tablet 00:00: TABLET(S) [place] 00 BY MOUTH Medical ONCE A Branch DAY. PANTOPRAZOL 2-0 Yes [id number] TAKE ONE [facility] E 20 mg EC 4-08 (1) ity of tablet 00:00: TABLET(S) [place] 00 BY MOUTH Medical ONCE A Branch DAY. PANTOPRAZOL 2021-0 Yes [id number] TAKE ONE [facility] E 20 mg EC 4-08 (1) ity of tablet 00:00: TABLET(S) [place] 00 BY MOUTH Medical ONCE A Branch DAY. PANTOPRAZOL 2021-0 Yes [id number] TAKE ONE [facility] E 20 mg EC 4-08 (1) ity of tablet 00:00: TABLET(S) [place] 00 BY MOUTH Medical ONCE A Branch DAY. PANTOPRAZOL 2021-0 Yes [id number] TAKE ONE [facility] E 20 mg EC 4-08 (1) ity of tablet 00:00: TABLET(S) [place] 00 BY MOUTH Medical ONCE A Branch DAY. PANTOPRAZOL 2021-0 Yes [id number] TAKE ONE [facility] E 20 mg EC 4-08 (1) ity of tablet 00:00: TABLET(S) [place] 00 BY MOUTH Medical ONCE A Branch DAY. PANTOPRAZOL 2-0 Yes [id number] TAKE ONE [facility] E 20 mg EC 4-08 (1) ity of tablet 00:00: TABLET(S) [place] 00 BY MOUTH Medical ONCE A Branch DAY. PANTOPRAZOL 2021-0 Yes [id number] TAKE ONE [facility] E 20 mg EC 4-08 (1) ity of tablet 00:00: TABLET(S) [place] 00 BY MOUTH Medical ONCE A Branch DAY. PANTOPRAZOL 2-0 2022- No [id number] TAKE ONE [facility] E 20 mg EC 4-08 12-28 (1) ity of tablet 00:00: 00:00 TABLET(S) [place] 00 :00 BY MOUTH Medical ONCE A Branch DAY. dulaglutide 2021-0 Yes [id number] 1.5mg inject 1.5 [facility] (TRULICITY) 3-09 mg under ity of 1.5 mg/0.5 00:00: the skin [place] mL PnIj 00 weekly. Medical Branch dulaglutide Yes [id number] 1.5mg inject 1.5 [facility] (TRULICITY) 3-09 mg under ity of 1.5 mg/0.5 00:00: the skin [place] mL PnIj 00 weekly. Medical Branch dulaglutide Yes [id number] 1.5mg inject 1.5 [facility] (TRULICITY) 3-09 mg under ity of 1.5 mg/0.5 00:00: the [place] mL PnIj 00 weekly. Medical Branch dulaglutide Yes [id number] 1.5mg inject 1.5 [facility] (TRULICITY) 3-09 mg under ity of 1.5 mg/0.5 00:00: the skin [place] mL PnIj 00 weekly. Medical Branch dulaglutide Yes [id number] 1.5mg inject 1.5 [facility] (TRULICITY) 3-09 mg under ity of 1.5 mg/0.5 00:00: the skin [place] mL PnIj 00 weekly. Medical Branch dulaglutide Yes [id number] 1.5mg inject 1.5 [facility] (TRULICITY) 3-09 mg under ity of 1.5 mg/0.5 00:00: the skin [place] mL PnIj 00 weekly. Medical Branch dulaglutide 2021- No [id number] 1.5mg inject 1.5 [facility] (TRULICITY) 3-09 10-13 mg under ity of 1.5 mg/0.5 00:00: 00:00 the skin [place] mL PnIj 00 :00 weekly. Medical Branch dulaglutide 2021- No [id number] 1.5mg inject 1.5 [facility] (TRULICITY) 3-09 10-13 mg under ity of 1.5 mg/0.5 00:00: 00:00 the skin [place] mL PnIj 00 :00 weekly. Medical Branch dulaglutide 2021- No [id number] .75mg inject [facility] (TRULICITY) 3-09 09-12 0.75 mg ity of 0.75 mg/0.5 00:00: 00:00 under the [place] mL PnIj 00 :00 skin Medical weekly. Branch vitamin C 2020-0 Yes [id number] 1000mg Take 1 [facility] with jacob 9-16 tablet by ity o f hips 00:00: mouth [place] (VITAMIN C) 00 daily. Medica l 1,000 mg Branch tablet Cholecalcif 2020-0 Yes [id number] 5000U Take 1 [facility] david, 9-16 tablet by ity of Vitamin D3, 00:00: mouth [place] (VITAMIN 00 daily. Medical D3) 125 mcg Branch (5,000 unit) tablet vitamin C 2020-0 Yes [id number] 1000mg Take 1 [facility] with jacob 9-16 tablet by ity o f hips 00:00: mouth [place] (VITAMIN C) 00 daily. Medica l 1,000 mg [facility] tablet Cholecalcif 2020-0 Yes [id number] 5000U Take 1 [facility], 9-16 tablet by ity of Vitamin D3, 00:00: mouth [place] (VITAMIN 00 daily. Medical D3) 125 mcg [facility] (5,000 unit) tablet vitamin C 2020-0 Yes [id number] 1000mg Take 1 [facility] with jacob 9-16 tablet by ity o f hips 00:00: mouth [place] (VITAMIN C) 00 daily. Medica l 1,000 mg [facility] tablet Cholecalcif 2020-0 Yes [id number] 5000U Take 1 Univers david, 9-16 tablet by ity of Vitamin D3, 00:00: mouth [place] (VITAMIN 00 daily. Medical D3) 125 mcg Branch (5,000 unit) tablet vitamin C 2020-0 Yes [id number] 1000mg Take 1 [facility] 9-16 tablet by ity o f hips 00:00: mouth [place] (VITAMIN C) 00 daily. Medica l 1,000 mg Branch tablet Cholecalcif 2020-0 Yes [id number] 5000U Take 1 [facility], 9-16 tablet by ity of Vitamin D3, 00:00: mouth [place] (VITAMIN 00 daily. Medical D3) 125 mcg [facility] (5,000 unit) tablet vitamin C 2020-0 Yes [id number] 1000mg Take 1 [facility] 9-16 tablet by ity o f hips 00:00: mouth [place] (VITAMIN C) 00 daily. Medica l 1,000 mg Branch tablet Cholecalcif 2020-0 Yes [id number] 5000U Take 1 [facility]id, 9-16 tablet by ity of Vitamin D3, 00:00: mouth [place] (VITAMIN 00 daily. Medical D3) 125 mcg [facility] (5,000 unit) tablet vitamin C 2020-0 Yes [id number] 1000mg Take 1 [facility] 9-16 tablet by ity o f hips 00:00: mouth [place] (VITAMIN C) 00 daily. Medica l 1,000 mg Branch tablet Cholecalcif 2020-0 Yes [id number] 5000U Take 1 [facility] david, 9-16 tablet by ity of Vitamin D3, 00:00: mouth [place] (VITAMIN 00 daily. Medical D3) 125 mcg [facility] (5,000 unit) tablet vitamin C 2020-0 Yes [id number] 1000mg Take 1 [facility] 9-16 tablet by ity o f hips 00:00: mouth [place] (VITAMIN C) 00 daily. Medica l 1,000 mg Branch tablet Cholecalcif 2020-0 Yes [id number] 5000U Take 1 [facility]id, 9-16 tablet by ity of Vitamin D3, 00:00: mouth [place] (VITAMIN 00 daily. Medical D3) 125 mcg [facility] (5,000 unit) tablet vitamin C 2020-0 Yes [id number] 1000mg Take 1 [facility] 9-16 tablet by ity o f hips 00:00: mouth [place] (VITAMIN C) 00 daily. Medica l 1,000 mg Branch tablet Cholecalcif 2020-0 Yes [id number] 5000U Take 1 [facility] david, 9-16 tablet by ity of Vitamin D3, 00:00: mouth [place] (VITAMIN 00 daily. Medical D3) 125 mcg [facility] (5,000 unit) tablet vitamin C 2020-0 Yes [id number] 1000mg Take 1 [facility] 9-16 tablet by ity o f hips 00:00: mouth [place] (VITAMIN C) 00 daily. Medica l 1,000 mg Branch tablet Cholecalcif 2020-0 Yes [id number] 5000U Take 1 [facility] david, 9-16 tablet by ity of Vitamin D3, 00:00: mouth [place] (VITAMIN 00 daily. Medical D3) 125 mcg [facility] (5,000 unit) tablet vitamin C 2020-0 Yes [id number] 1000mg Take 1 [facility] 9-16 tablet by ity o f hips 00:00: mouth [place] (VITAMIN C) 00 daily. Medica l 1,000 mg Branch tablet Cholecalcif 2020-0 Yes [id number] 5000U Take 1 [facility] david, 9-16 tablet by ity of Vitamin D3, 00:00: mouth [place] (VITAMIN 00 daily. Medical D3) 125 mcg [facility] (5,000 unit) tablet vitamin C 2020-0 Yes [id number] 1000mg Take 1 [facility] 9-16 tablet by ity o f hips 00:00: mouth [place] (VITAMIN C) 00 daily. Medica l 1,000 mg Branch tablet Cholecalcif 2020-0 Yes [id number] 5000U Take 1 [facility] david, 9-16 tablet by ity of Vitamin D3, 00:00: mouth [place] (VITAMIN 00 daily. Medical D3) 125 mcg [facility] (5,000 unit) tablet vitamin C 2020-0 Yes [id number] 1000mg Take 1 [facility] 9-16 tablet by ity o f hips 00:00: mouth [place] (VITAMIN C) 00 daily. Medica l 1,000 mg Branch tablet Cholecalcif 2020-0 Yes [id number] 5000U Take 1 [facility] david, 9-16 tablet by ity of Vitamin D3, 00:00: mouth [place] (VITAMIN 00 daily. Medical D3) 125 mcg [facility] (5,000 unit) tablet vitamin C 2020-0 Yes [id number] 1000mg Take 1 [facility] 9-16 tablet by ity o f hips 00:00: mouth [place] (VITAMIN C) 00 daily. Medica l 1,000 mg Branch tablet Cholecalcif 2020-0 Yes [id number] 5000U Take 1 [facility] david, 9-16 tablet by ity of Vitamin D3, 00:00: mouth [place] (VITAMIN 00 daily. Medical D3) 125 mcg [facility] (5,000 unit) tablet vitamin C 2020-0 Yes [id number] 1000mg Take 1 [facility] 9-16 tablet by ity o f hips 00:00: mouth [place] (VITAMIN C) 00 daily. Medica l 1,000 mg Branch tablet Cholecalcif 2020-0 Yes [id number] 5000U Take 1 [facility] david, 9-16 tablet by ity of Vitamin D3, 00:00: mouth [place] (VITAMIN 00 daily. Medical D3) 125 mcg [facility] (5,000 unit) tablet vitamin C 2020-0 Yes [id number] 1000mg Take 1 [facility] 9-16 tablet by ity o f hips 00:00: mouth [place] (VITAMIN C) 00 daily. Medica l 1,000 mg Branch tablet Cholecalcif 2020-0 Yes [id number] 5000U Take 1 [facility] david, 9-16 tablet by ity of Vitamin D3, 00:00: mouth [place] (VITAMIN 00 daily. Medical D3) 125 mcg [facility] (5,000 unit) tablet vitamin C 2020-0 Yes [id number] 1000mg Take 1 [facility] 9-16 tablet by ity o f hips 00:00: mouth [place] (VITAMIN C) 00 daily. Medica l 1,000 mg Branch tablet Cholecalcif 2020-0 Yes [id number] 5000U Take 1 [facility] david, 9-16 tablet by ity of Vitamin D3, 00:00: mouth [place] (VITAMIN 00 daily. Medical D3) 125 mcg [facility] (5,000 unit) tablet vitamin C 2020-0 Yes [id number] 1000mg Take 1 [facility] 9-16 tablet by ity o f hips 00:00: mouth [place] (VITAMIN C) 00 daily. Medica l 1,000 mg [facility] tablet Cholecalcif 2020-0 Yes [id number] 5000U Take 1 [facility] david, 9-16 tablet by ity of Vitamin D3, 00:00: mouth [place] (VITAMIN 00 daily. Medical D3) 125 mcg [facility] (5,000 unit) tablet vitamin C 2020-0 Yes [id number] 1000mg Take 1 [facility] 9-16 tablet by ity o f hips 00:00: mouth [place] (VITAMIN C) 00 daily. Medica l 1,000 mg Branch tablet Cholecalcif 2020-0 Yes [id number] 5000U Take 1 [facility] david, 9-16 tablet by ity of Vitamin D3, 00:00: mouth [place] (VITAMIN 00 daily. Medical D3) 125 mcg [facility] (5,000 unit) tablet vitamin C 2020-0 Yes [id number] 1000mg Take 1 [facility] 9-16 tablet by ity o f hips 00:00: mouth [place] (VITAMIN C) 00 daily. Medica l 1,000 mg Branch tablet Cholecalcif 2020-0 Yes [id number] 5000U Take 1 [facility] david, 9-16 tablet by ity of Vitamin D3, 00:00: mouth [place] (VITAMIN 00 daily. Medical D3) 125 mcg [facility] (5,000 unit) tablet vitamin C 2020-0 Yes [id number] 1000mg Take 1 [facility] 9-16 tablet by ity o f hips 00:00: mouth [place] (VITAMIN C) 00 daily. Medica l 1,000 mg Branch tablet Cholecalcif 2020-0 Yes [id number] 5000U Take 1 [facility] david, 9-16 tablet by ity of Vitamin D3, 00:00: mouth [place] (VITAMIN 00 daily. Medical D3) 125 mcg [facility] (5,000 unit) tablet vitamin C 2020-0 Yes [id number] 1000mg Take 1 [facility] 9-16 tablet by ity o f hips 00:00: mouth [place] (VITAMIN C) 00 daily. Medica l 1,000 mg Branch tablet Cholecalcif 2020-0 Yes [id number] 5000U Take 1 [facility] david, 9-16 tablet by ity of Vitamin D3, 00:00: mouth [place] (VITAMIN 00 daily. Medical D3) 125 mcg [facility] (5,000 unit) tablet vitamin C 2020-0 Yes [id number] 1000mg Take 1 [facility] 9-16 tablet by ity o f hips 00:00: mouth [place] (VITAMIN C) 00 daily. Medica l 1,000 mg [facility] tablet Cholecalcif 2020-0 Yes [id number] 5000U Take 1 [facility] david, 9-16 tablet by ity of Vitamin D3, 00:00: mouth [place] (VITAMIN 00 daily. Medical D3) 125 mcg [facility] (5,000 unit) tablet vitamin C 2020-0 Yes [id number] 1000mg Take 1 [facility] 9-16 tablet by ity o f hips 00:00: mouth [place] (VITAMIN C) 00 daily. Medica l 1,000 mg Branch tablet Cholecalcif 2020-0 Yes [id number] 5000U Take 1 [facility] david, 9-16 tablet by ity of Vitamin D3, 00:00: mouth [place] (VITAMIN 00 daily. Medical D3) 125 mcg [facility] (5,000 unit) tablet vitamin C 2020-0 Yes [id number] 1000mg Take 1 [facility] 9-16 tablet by ity o f hips 00:00: mouth [place] (VITAMIN C) 00 daily. Medica l 1,000 mg Branch tablet Cholecalcif 2020-0 Yes [id number] 5000U Take 1 [facility] david, 9-16 tablet by ity of Vitamin D3, 00:00: mouth [place] (VITAMIN 00 daily. Medical D3) 125 mcg [facility] (5,000 unit) tablet vitamin C 2020-0 Yes [id number] 1000mg Take 1 [facility] 9-16 tablet by ity o f hips 00:00: mouth [place] (VITAMIN C) 00 daily. Medica l 1,000 mg Branch tablet Cholecalcif 2020-0 Yes [id number] 5000U Take 1 [facility] david, 9-16 tablet by ity of Vitamin D3, 00:00: mouth [place] (VITAMIN 00 daily. Medical D3) 125 mcg [facility] (5,000 unit) tablet vitamin C 2020-0 Yes [id number] 1000mg Take 1 [facility] 9-16 tablet by ity o f hips 00:00: mouth [place] (VITAMIN C) 00 daily. Medica l 1,000 mg Branch tablet Cholecalcif 2020-0 Yes [id number] 5000U Take 1 [facility] david, 9-16 tablet by ity of Vitamin D3, 00:00: mouth [place] (VITAMIN 00 daily. Medical D3) 125 mcg [facility] (5,000 unit) tablet vitamin C 2020-0 Yes [id number] 1000mg Take 1 [facility] 9-16 tablet by ity o f hips 00:00: mouth [place] (VITAMIN C) 00 daily. Medica l 1,000 mg Branch tablet Cholecalcif 2020-0 Yes [id number] 5000U Take 1 [facility] david, 9-16 tablet by ity of Vitamin D3, 00:00: mouth [place] (VITAMIN 00 daily. Medical D3) 125 mcg [facility] (5,000 unit) tablet vitamin C 2020-0 Yes [id number] 1000mg Take 1 [facility] 9-16 tablet by ity o f hips 00:00: mouth [place] (VITAMIN C) 00 daily. Medica l 1,000 mg Branch tablet Cholecalcif 2020-0 Yes [id number] 5000U Take 1 [facility] david, 9-16 tablet by ity of Vitamin D3, 00:00: mouth [place] (VITAMIN 00 daily. Medical D3) 125 mcg [facility] (5,000 unit) tablet vitamin C 2020-0 Yes [id number] 1000mg Take 1 [facility] 9-16 tablet by ity o f hips 00:00: mouth [place] (VITAMIN C) 00 daily. Medica l 1,000 mg Branch tablet Cholecalcif 2020-0 Yes [id number] 5000U Take 1 [facility] david, 9-16 tablet by ity of Vitamin D3, 00:00: mouth [place] (VITAMIN 00 daily. Medical D3) 125 mcg [facility] (5,000 unit) tablet vitamin C 2020-0 Yes [id number] 1000mg Take 1 [facility]acob 9-16 tablet by ity o f hips 00:00: mouth [place] (VITAMIN C) 00 daily. Medica l 1,000 mg Branch tablet Cholecalcif 2020-0 Yes [id number] 5000U Take 1 [facility] david, 9-16 tablet by ity of Vitamin D3, 00:00: mouth [place] (VITAMIN 00 daily. Medical D3) 125 mcg [facility] (5,000 unit) tablet vitamin C 2020-0 Yes [id number] 1000mg Take 1 [facility]ob 9-16 tablet by ity o f hips 00:00: mouth [place] (VITAMIN C) 00 daily. Medica l 1,000 mg Branch tablet Cholecalcif 2020-0 Yes [id number] 5000U Take 1 [facility] david, 9-16 tablet by ity of Vitamin D3, 00:00: mouth [place] (VITAMIN 00 daily. Medical D3) 125 mcg Branch (5,000 unit) tablet vitamin C 2020-0 Yes [id number] 1000mg Take 1 [facility]acob 9-16 tablet by ity o f hips 00:00: mouth [place] (VITAMIN C) 00 daily. Medica l 1,000 mg Branch tablet Cholecalcif 2020-0 Yes [id number] 5000U Take 1 [facility] david, 9-16 tablet by ity of Vitamin D3, 00:00: mouth [place] (VITAMIN 00 daily. Medical D3) 125 mcg Branch (5,000 unit) tablet vitamin C 2020-0 Yes [id number] 1000mg Take 1 [facility]ob 9-16 tablet by ity o f hips 00:00: mouth [place] (VITAMIN C) 00 daily. Medica l 1,000 mg Branch tablet Cholecalcif 2020-0 Yes [id number] 5000U Take 1 [facility] david, 9-16 tablet by ity of Vitamin D3, 00:00: mouth [place] (VITAMIN 00 daily. Medical D3) 125 mcg Branch (5,000 unit) tablet vitamin C 2020-0 Yes [id number] 1000mg Take 1 [facility]ob 9-16 tablet by ity o f hips 00:00: mouth [place] (VITAMIN C) 00 daily. Medica l 1,000 mg Branch tablet Cholecalcif 2020-0 Yes [id number] 5000U Take 1 [facility] david, 9-16 tablet by ity of Vitamin D3, 00:00: mouth [place] (VITAMIN 00 daily. Medical D3) 125 mcg Branch (5,000 unit) tablet vitamin C 2020-0 Yes [id number] 1000mg Take 1 [facility]acob 9-16 tablet by ity o f hips 00:00: mouth [place] (VITAMIN C) 00 daily. Medica l 1,000 mg Branch tablet Cholecalcif 2020-0 Yes [id number] 5000U Take 1 [facility] david, 9-16 tablet by [place] of Vitamin D3, 00:00: mouth [place] (VITAMIN 00 daily. Medical D3) 125 mcg [place] (5,000 unit) tablet Immunizations Ordered Filled Immunization Date Status Comments [facility] e Immunization Name Name Influenza Virus 2021-01-29 Completed Universit y of Vaccine 00:00:00 [facility] Influenza Virus 2021-01-29 Completed Universit y of Vaccine 00:00:00 [facility] Branch Influenza Virus 2021-01-29 Completed Universit y of Vaccine 00:00:00 [facility] Influenza Virus 2021-01-29 Completed Universit y of Vaccine 00:00:00 [facility] Influenza Virus 2021-01-29 Completed Universit y of Vaccine 00:00:00 [facility] Influenza Virus 2021-01-29 Completed Universit y of Vaccine 00:00:00 [facility] Influenza Virus 2021-01-29 Completed Universit y of Vaccine 00:00:00 [facility] Influenza Virus 2021-01-29 Completed Universit y of Vaccine 00:00:00 [facility] Influenza Virus 2021-01-29 Completed Universit y of Vaccine 00:00:00 [facility] Influenza Virus 2021-01-29 Completed Universit y of Vaccine 00:00:00 [facility] Influenza Virus 2021-01-29 Completed Universit y of Vaccine 00:00:00 [facility] Influenza Virus 2021-01-29 Completed Universit y of Vaccine 00:00:00 [facility] Influenza Virus 2021-01-29 Completed Universit y of Vaccine 00:00:00 [facility] Influenza Virus 2021-01-29 Completed Universit y of Vaccine 00:00:00 [facility] Influenza Virus 2021-01-29 Completed Universit y of Vaccine 00:00:00 [facility] Influenza Virus 2021-01-29 Completed Universit y of Vaccine 00:00:00 [facility] Influenza Virus 2021-01-29 Completed Universit y of Vaccine 00:00:00 [facility] Influenza Virus 2021-01-29 Completed Universit y of Vaccine 00:00:00 [facility] Influenza Virus 2021-01-29 Completed Universit y of Vaccine 00:00:00 [facility] Influenza Virus 2021-01-29 Completed Universit y of Vaccine 00:00:00 [facility] Influenza Virus 2021-01-29 Completed Universit y of Vaccine 00:00:00 [facility] Influenza Virus 2021-01-29 Completed Universit y of Vaccine 00:00:00 [facility] Influenza Virus 2021-01-29 Completed Universit y of Vaccine 00:00:00 [facility] Influenza Virus 2021-01-29 Completed Universit y of Vaccine 00:00:00 [facility] Influenza Virus 2021-01-29 Completed Universit y of Vaccine 00:00:00 [facility] Influenza Virus 2021-01-29 Completed Universit y of Vaccine 00:00:00 [facility] Influenza Virus 2021-01-29 Completed Universit y of Vaccine 00:00:00 [facility] Influenza Virus 2021-01-29 Completed Universit y of Vaccine 00:00:00 [facility] Influenza Virus 2021-01-29 Completed Universit y of Vaccine 00:00:00 [facility] Influenza Virus 2021-01-29 Completed Universit y of Vaccine 00:00:00 [facility] Influenza Virus 2021-01-29 Completed Universit y of Vaccine 00:00:00 [facility] Influenza Virus 2021-01-29 Completed Universit y of Vaccine 00:00:00 [facility] Influenza Virus 2021-01-29 Completed Universit y of Vaccine 00:00:00 [facility] Influenza Virus 2021-01-29 Completed Universit y of Vaccine 00:00:00 [facility] Influenza Virus 2021-01-29 Completed Universit y of Vaccine 00:00:00 [facility] SARS-COV-2 COVID-19 2020-12-11 Completed Unive rsity of PFIZER VACCINE 00:00:00 [facility] SARS-COV-2 COVID-19 2020-12-11 Completed Unive rsity of PFIZER VACCINE 00:00:00 [facility] SARS-COV-2 COVID-19 2020-12-11 Completed Unive rsity of PFIZER VACCINE 00:00:00 [facility] SARS-COV-2 COVID-19 2020-12-11 Completed Unive rsity of PFIZER VACCINE 00:00:00 [facility] SARS-COV-2 COVID-19 2020-12-11 Completed Unive rsity of PFIZER VACCINE 00:00:00 [facility] SARS-COV-2 COVID-19 2020-12-11 Completed Unive rsity of PFIZER VACCINE 00:00:00 [facility] SARS-COV-2 COVID-19 2020-12-11 Completed Unive rsity of PFIZER VACCINE 00:00:00 [facility] SARS-COV-2 COVID-19 2020-12-11 Completed Unive rsity of PFIZER VACCINE 00:00:00 [facility] SARS-COV-2 COVID-19 2020-12-11 Completed Unive rsity of PFIZER VACCINE 00:00:00 [facility] SARS-COV-2 COVID-19 2020-12-11 Completed Unive rsity of PFIZER VACCINE 00:00:00 [facility] SARS-COV-2 COVID-19 2020-12-11 Completed Unive rsity of PFIZER VACCINE 00:00:00 [facility] SARS-COV-2 COVID-19 2020-12-11 Completed Unive rsity of PFIZER VACCINE 00:00:00 [facility] SARS-COV-2 COVID-19 2020-12-11 Completed Unive rsity of PFIZER VACCINE 00:00:00 [facility] SARS-COV-2 COVID-19 2020-12-11 Completed Unive rsity of PFIZER VACCINE 00:00:00 [facility] SARS-COV-2 COVID-19 2020-12-11 Completed Unive rsity of PFIZER VACCINE 00:00:00 [facility] SARS-COV-2 COVID-19 2020-12-11 Completed Unive rsity of PFIZER VACCINE 00:00:00 [facility] SARS-COV-2 COVID-19 2020-12-11 Completed Unive rsity of PFIZER VACCINE 00:00:00 [facility] SARS-COV-2 COVID-19 2020-12-11 Completed Unive rsity of PFIZER VACCINE 00:00:00 [facility] SARS-COV-2 COVID-19 2020-12-11 Completed Unive rsity of PFIZER VACCINE 00:00:00 [facility] SARS-COV-2 COVID-19 2020-12-11 Completed Unive rsity of PFIZER VACCINE 00:00:00 [facility] SARS-COV-2 COVID-19 2020-12-11 Completed Unive rsity of PFIZER VACCINE 00:00:00 [facility] SARS-COV-2 COVID-19 2020-12-11 Completed Unive rsity of PFIZER VACCINE 00:00:00 [facility] SARS-COV-2 COVID-19 2020-12-11 Completed Unive rsity of PFIZER VACCINE 00:00:00 [facility] SARS-COV-2 COVID-19 2020-12-11 Completed Unive rsity of PFIZER VACCINE 00:00:00 [facility] SARS-COV-2 COVID-19 2020-12-11 Completed Unive rsity of PFIZER VACCINE 00:00:00 [facility] SARS-COV-2 COVID-19 2020-12-11 Completed Unive rsity of PFIZER VACCINE 00:00:00 [facility] SARS-COV-2 COVID-19 2020-12-11 Completed Unive rsity of PFIZER VACCINE 00:00:00 [facility] SARS-COV-2 COVID-19 2020-12-11 Completed Unive rsity of PFIZER VACCINE 00:00:00 [facility] SARS-COV-2 COVID-19 2020-12-11 Completed Unive rsity of PFIZER VACCINE 00:00:00 [facility] SARS-COV-2 COVID-19 2020-12-11 Completed Unive rsity of PFIZER VACCINE 00:00:00 [facility] SARS-COV-2 COVID-19 2020-12-11 Completed Unive rsity of PFIZER VACCINE 00:00:00 [facility] SARS-COV-2 COVID-19 2020-12-11 Completed Unive rsity of PFIZER VACCINE 00:00:00 [facility] SARS-COV-2 COVID-19 2020-12-11 Completed Unive rsity of PFIZER VACCINE 00:00:00 [facility] SARS-COV-2 COVID-19 2020-12-11 Completed Unive rsity of PFIZER VACCINE 00:00:00 [facility] SARS-COV-2 COVID-19 2020-12-11 Completed Unive rsity of PFIZER VACCINE 00:00:00 [facility] SARS-COV-2 COVID-19 2020-11-14 Completed Unive rsity of PFIZER VACCINE 00:00:00 [facility] SARS-COV-2 COVID-19 2020-11-14 Completed Unive rsity of PFIZER VACCINE 00:00:00 [facility] SARS-COV-2 COVID-19 2020-11-14 Completed Unive rsity of PFIZER VACCINE 00:00:00 [facility] SARS-COV-2 COVID-19 2020-11-14 Completed Unive rsity of PFIZER VACCINE 00:00:00 [facility] SARS-COV-2 COVID-19 2020-11-14 Completed Unive rsity of PFIZER VACCINE 00:00:00 [facility] SARS-COV-2 COVID-19 2020-11-14 Completed Unive rsity of PFIZER VACCINE 00:00:00 [facility] SARS-COV-2 COVID-19 2020-11-14 Completed Unive rsity of PFIZER VACCINE 00:00:00 [facility] SARS-COV-2 COVID-19 2020-11-14 Completed Unive rsity of PFIZER VACCINE 00:00:00 [facility] SARS-COV-2 COVID-19 2020-11-14 Completed Unive rsity of PFIZER VACCINE 00:00:00 [facility] SARS-COV-2 COVID-19 2020-11-14 Completed Unive rsity of PFIZER VACCINE 00:00:00 [facility] SARS-COV-2 COVID-19 2020-11-14 Completed Unive rsity of PFIZER VACCINE 00:00:00 [facility] SARS-COV-2 COVID-19 2020-11-14 Completed Unive rsity of PFIZER VACCINE 00:00:00 [facility] SARS-COV-2 COVID-19 2020-11-14 Completed Unive rsity of PFIZER VACCINE 00:00:00 [facility] SARS-COV-2 COVID-19 2020-11-14 Completed Unive rsity of PFIZER VACCINE 00:00:00 [facility] SARS-COV-2 COVID-19 2020-11-14 Completed Unive rsity of PFIZER VACCINE 00:00:00 [facility] SARS-COV-2 COVID-19 2020-11-14 Completed Unive rsity of PFIZER VACCINE 00:00:00 [facility] SARS-COV-2 COVID-19 2020-11-14 Completed Unive rsity of PFIZER VACCINE 00:00:00 [facility] SARS-COV-2 COVID-19 2020-11-14 Completed Unive rsity of PFIZER VACCINE 00:00:00 [facility] SARS-COV-2 COVID-19 2020-11-14 Completed Unive rsity of PFIZER VACCINE 00:00:00 [facility] SARS-COV-2 COVID-19 2020-11-14 Completed Unive rsity of PFIZER VACCINE 00:00:00 [facility] SARS-COV-2 COVID-19 2020-11-14 Completed Unive rsity of PFIZER VACCINE 00:00:00 [facility] SARS-COV-2 COVID-19 2020-11-14 Completed Unive rsity of PFIZER VACCINE 00:00:00 [facility] SARS-COV-2 COVID-19 2020-11-14 Completed Unive rsity of PFIZER VACCINE 00:00:00 [facility] SARS-COV-2 COVID-19 2020-11-14 Completed Unive rsity of PFIZER VACCINE 00:00:00 [facility] SARS-COV-2 COVID-19 2020-11-14 Completed Unive rsity of PFIZER VACCINE 00:00:00 [facility] SARS-COV-2 COVID-19 2020-11-14 Completed Unive rsity of PFIZER VACCINE 00:00:00 [facility] SARS-COV-2 COVID-19 2020-11-14 Completed Unive rsity of PFIZER VACCINE 00:00:00 [facility] SARS-COV-2 COVID-19 2020-11-14 Completed Unive rsity of PFIZER VACCINE 00:00:00 [facility] SARS-COV-2 COVID-19 2020-11-14 Completed Unive rsity of PFIZER VACCINE 00:00:00 [facility] SARS-COV-2 COVID-19 2020-11-14 Completed Unive rsity of PFIZER VACCINE 00:00:00 [facility] SARS-COV-2 COVID-19 2020-11-14 Completed Unive rsity of PFIZER VACCINE 00:00:00 [facility] SARS-COV-2 COVID-19 2020-11-14 Completed Unive rsity of PFIZER VACCINE 00:00:00 [facility] SARS-COV-2 COVID-19 2020-11-14 Completed Unive rsity of PFIZER VACCINE 00:00:00 [facility] SARS-COV-2 COVID-19 2020-11-14 Completed Unive rsity of PFIZER VACCINE 00:00:00 [facility] SARS-COV-2 COVID-19 2020-11-14 Completed Unive rsity of PFIZER VACCINE 00:00:00 [facility] 2019-01-14 Completed University of 00:00:00 [facility] Influenza Virus 2019-01-14 Completed Universit y of Vaccine [place] .5 mL 00:00:00 [facility] 6+ MO [place] TD 2019-01-14 Completed University of 00:00:00 [facility] Influenza Virus 2019-01-14 Completed Universit y of Vaccine [place] .5 mL 00:00:00 [place] [id number] [place] [facility] 2019-01-14 Completed University of 00:00:00 [facility] Influenza Virus 2019-01-14 Completed [facility]it y of Vaccine [place] .5 mL 00:00:[address] [place] [facility] 2019-01-14 Completed University of 00:00:00 [facility] Influenza Virus 2019-01-14 Completed [facility]it y of Vaccine [place] .5 mL 00:00:[address] [place] [facility] 2019-01-14 Completed [facility] 00:00:00 [facility] [facility] Influenza Virus 2019-01-14 Completed Universit y of Vaccine Quad .5 mL 00:00:[address] [place] [facility] 2019-01-14 Completed University of 00:00:00 [facility] Influenza Virus 2019-01-14 Completed Universit y of Vaccine [place] .5 mL 00:00:00 [place] [address] [place] [facility] 2019-01-14 Completed University of 00:00:00 [facility] Influenza Virus 2019-01-14 Completed Universit y of Vaccine [place] .5 mL 00:00:[address] [place] [facility] 2019-01-14 Completed University of 00:00:00 [facility] Influenza Virus 2019-01-14 Completed Universit y of Vaccine [place] .5 mL 00:00:00 [place] [address] [place] [facility] 2019-01-14 Completed University of 00:00:00 [facility] Influenza Virus 2019-01-14 Completed Universit y of [facility] .5 mL 00:00:00 [place] [address] [place] [facility] 2019-01-14 Completed University of 00:00:00 [facility] Influenza Virus 2019-01-14 Completed Universit y of Vaccine Quad .5 mL 00:00:00 [facility] 6+ [place] Branch TDAP 2019-01-14 Completed University of 00:00:00 [facility] Influenza Virus 2019-01-14 Completed Universit y of Vaccine Quad .5 mL 00:00:00 [facility] 6+ [place] TD 2019-01-14 Completed University of 00:00:00 [facility] Influenza Virus 2019-01-14 Completed Universit y of Vaccine Quad .5 mL 00:00:00 [facility] 6+ [place] TDAP 2019-01-14 Completed University of 00:00:00 [facility] Influenza Virus 2019-01-14 Completed Universit y of Vaccine [place] .5 mL 00:00:00 [place] [address]+ [place] TD 2019-01-14 Completed University of 00:00:00 [facility] Influenza Virus 2019-01-14 Completed Universit y of Vaccine [place] .5 mL 00:00:00 [place] [address] [place] TD 2019-01-14 Completed University of 00:00:00 [facility] Influenza Virus 2019-01-14 Completed Universit y of Vaccine Quad .5 mL 00:00:00 [facility] 6+ [place] [facility] 2019-01-14 Completed University of 00:00:00 [facility] Influenza Virus 2019-01-14 Completed Universit y of [place] .5 mL 00:00:[address] [place] [facility] 2019-01-14 Completed University of 00:00:00 [facility] Influenza Virus 2019-01-14 Completed Universit y of Vaccine Quad .5 mL 00:00:00 [facility] 6+ [place] TDAP 2019-01-14 Completed University of 00:00:00 [facility] Influenza Virus 2019-01-14 Completed Universit y of Vaccine Quad .5 mL 00:00:00 [facility] 6+ [place] TDAP 2019-01-14 Completed University of 00:00:00 [facility] Influenza Virus 2019-01-14 Completed Universit y of Vaccine [place] .5 mL 00:00:00 [facility] 6+ [place] [facility] 2019-01-14 Completed University of 00:00:00 [facility] Influenza Virus 2019-01-14 Completed Universit y of Vaccine Quad .5 mL 00:00:00 [facility] 6+ MO Branch TDAP 2019-01-14 Completed University of 00:00:00 [facility] Influenza Virus 2019-01-14 Completed Universit y of Vaccine Quad .5 mL 00:00:00 [facility] 6+ [place] Branch TDAP 2019-01-14 Completed University of 00:00:00 [facility] Influenza Virus 2019-01-14 Completed Universit y of Vaccine Quad .5 mL 00:00:00 [facility] 6+ [place] Branch TDAP 2019-01-14 Completed University of 00:00:00 [facility] Influenza Virus 2019-01-14 Completed Universit y of Vaccine Quad .5 mL 00:00:00 [facility] 6+ [place] TDAP 2019-01-14 Completed University of 00:00:00 [facility] Influenza Virus 2019-01-14 Completed Universit y of Vaccine [place] .5 mL 00:00:[address] [place] TD 2019-01-14 Completed University of 00:00:00 [facility] Influenza Virus 2019-01-14 Completed Universit y of Vaccine Quad .5 mL 00:00:00 [facility] 6+ [place] TDAP 2019-01-14 Completed University of 00:00:00 [facility] Influenza Virus 2019-01-14 Completed Universit y of Vaccine [place] .5 mL 00:00:00 [place] [address] [place] TDAP 2019-01-14 Completed University of 00:00:00 [facility] Influenza Virus 2019-01-14 Completed Universit y of Vaccine [place] .5 mL 00:00:[address] [place] TDAP 2019-01-14 Completed University of 00:00:00 [facility] Influenza Virus 2019-01-14 Completed Universit y of Vaccine [place] .5 mL 00:00:00 [place] [address] [place] TDAP 2019-01-14 Completed University of 00:00:00 [facility] Influenza Virus 2019-01-14 Completed Universit y of Vaccine Quad .5 mL 00:00:00 [facility] 6+ [place] TDAP 2019-01-14 Completed University of 00:00:00 [facility] Influenza Virus 2019-01-14 Completed Universit y of Vaccine Quad .5 mL 00:00:00 [facility] 6+ [place] TDAP 2019-01-14 Completed University of 00:00:00 [facility] Influenza Virus 2019-01-14 Completed Universit y of Vaccine Quad .5 mL 00:00:00 [facility] IM 6+ [place] Branch TDAP 2019-01-14 Completed University of 00:00:00 [facility] Influenza Virus 2019-01-14 Completed Universit y of Vaccine Quad .5 mL 00:00:00 [facility] IM 6+ MO Branch TDAP 2019-01-14 Completed University of 00:00:00 [facility] Influenza Virus 2019-01-14 Completed Universit y of Vaccine Quad .5 mL 00:00:00 [facility] IM 6+ [place] Branch TDAP 2019-01-14 Completed University of 00:00:00 [facility] Influenza Virus 2019-01-14 Completed Universit y of Vaccine Quad .5 mL 00:00:00 [facility] IM 6+ MO Branch TDAP 2019-01-14 Completed University of 00:00:00 [facility] Influenza Virus 2019-01-14 Completed Universit y of Vaccine Quad .5 mL 00:00:00 [facility] 6+ [place] Branch Vital Signs Vital Name Observation Time Observation Value Comments Source Systolic blood 2022-06-03 20:07:00 138 mm[Hg] Univer sity of pressure [facility] Diastolic blood 2022-06-03 20:07:00 90 mm[Hg] Unive rsity of pressure [facility] Heart rate 2022-06-03 20:06:00 92 /min [facility] ty [facility] Respiratory rate 2022-06-03 20:06:00 18 /min [facility] height 2022-06-03 20:06:00 165.1 cm [facility] Body weight 2022-06-03 20:06:00 94.802 kg [facility] BMI 2022-06-03 20:06:00 34.78 kg/m2 [facility] Oxygen saturation in 2022-06-03 20:06:00 97 /min [facility] Arterial blood by [facility] Pulse oximetry Branch Systolic blood 2022-02-03 14:00:00 139 mm[Hg] Univer sity of pressure [facility] Diastolic blood 2022-02-03 14:00:00 91 mm[Hg] Unive rsity of pressure [facility] Heart rate 2022-02-03 14:00:00 73 /min Universi ty [facility] Respiratory rate 2022-02-03 14:00:00 18 /min Univ ersity [facility] Oxygen saturation in 2022-02-03 14:00:00 97 /min University of Arterial blood by [facility] Pulse oximetry Branch Body temperature 2022-02-03 13:18:00 36.61 Ilsa Univ ersity [facility] Body weight 2022-02-03 13:18:00 99.791 kg Universi ty of [place] [facility] [place] BMI 2022-02-03 13:18:00 38.97 kg/m2 Universi ty [facility] Systolic blood 2022-01-27 21:05:00 136 mm[Hg] Univer sity of pressure [facility] Diastolic blood 2022-01-27 21:05:00 81 mm[Hg] Unive rsity of pressure [facility] Heart rate 2022-01-27 21:05:00 81 /min Universi ty of [facility] Respiratory rate 2022-01-27 21:05:00 18 /min [facility] ersity [facility] Body height 2022-01-27 21:05:00 160 cm Universi ty of [facility] [place] Body weight 2022-01-27 21:05:00 103.874 kg Universi ty of [facility] [place] BMI 2022-01-27 21:05:00 40.57 kg/m2 Universi ty [facility] Medical [place] Oxygen saturation in 2022-01-27 21:05:00 97 /min University of Arterial blood by [facility] Pulse oximetry Branch Procedures Procedure Date / Time Performed Performing Clinician Parth gilman MR CERVICAL SPINE WO 2022-08-25 21:43:32 Requisition, Paper Univ [facility] CONSENT/REFUSAL FOR 2022-08-25 21:06:28 Doctor Unassigned, No [facility] DIAGNOSIS AND Name Medical Branch TREATMENT ASSIGNMENT OF BENEFITS 2022-08-25 21:06:18 Doctor Unassigned, No [facility] Name Medical Branch MR LUMBAR SPINE WO 2022-06-07 22:54:45 Requisition, Paper Univer sity [facility] XR LUMBAR SPINE 4 VW 2022-06-07 21:58:44 Requisition, Paper [facility] COMP. METABOLIC PANEL 2022-02-03 13:37:00 Carolina Maurice Uni versity of [place] ([id number]) [facility] CBC WITH DIFF 2022-02-03 13:37:00 Carolina Maurice Universit y of [facility] CONSENT/REFUSAL FOR 2022-02-03 13:08:09 Doctor Unassjudit, No Un iversity [facility] DIAGNOSIS AND Name [facility] Branch TREATMENT Encounters Start End Encounter Admission Attending Care Care Encounter Source Date/Time Date/Time Type Type Clinicians Facility Department ID 2021-03-04 Outpatient R HAYLEY [facility] DEB [id number] Univers 15:44:30 ABBEY ity of [facility] 2021-02-12 Emergency [facility] [id number] Univers 17:53:46 ity of [facility] 2022-08-25 2022-08-25 Outpatient R RADIOLOGY [facility] [id number] Univers 16:09:30 23:59:00 ity of [facility] 2022-08-25 2022-08-25 Hospital Radiology [facility] 1.2.840.114 [id number] Univers 16:09:30 23:59:00 Encounter [place] 350.1.13.10 ity [place] [id number] [facility] 804 Branch 2022-08-25 2022-08-25 Hospital Radiology [facility] 1.2.840.114 [id number] Univers 16:00:00 16:08:00 Encounter [place] 350.1.13.10 ity [place] [id number] [facility] 807 Branch 2022-08-25 2022-08-25 Hospital Radiology [facility] 1.2.840.114 [id number] Univers 15:45:00 15:59:00 Encounter [place] 350.1.13.10 it[place] [id number] [facility] 807 Branch 2022-08-25 2022-08-25 Orders Doctor PABLO 1.2.840.114 [id number] Univers 00:00:00 00:00:00 Only Unassigned, TRICIA 350.1.13.10 ity of [place] [facility] 4.2.7.2.686 David as [phone] [facility] 009 Branch 2022-08-24 2022-08-24 [facility] 1.2.840.114 [id number] Univers 00:00:00 00:00:00 Miya WOLFF 350.1.13.10 i ty of [facility] [place] [phone] Il dical NAL [address] [place] [address] 2022-08-17 2022-08-17 [facility] 1.2.840.114 [id number] Univers 00:00:00 00:00:00 Miya WOLFF 350.1.13.10 i ty [place] [id number] [facility] 044 [facility] 2022-07-21 2022-07-21 [facility] 1.2.840.114 [id number] Univers 00:00:00 00:00:00 Miya WOLFF 350.1.13.10 i ty [place] [id number] Il dic[address] 2022-07-07 2022-07-07 [facility] 1.2.840.114 [id number] Univers 00:00:00 00:00:00 Octavia HERNADEZ 350.1.13.10 ity of [facility] 4.2.7.2.[place] [id number] [facility] [place] [facility]44 [place] [facility] 2022-06-24 2022-06-24 [facility] 1.2.840.114 [id number] Univers 00:00:00 00:00:00 Miya WOLFF 350.1.13.10 i [place] [id number] Il dicks NAL 044 [facility] 2022-06-23 2022-06-23 [facility] 1.2.840.114 [id number] Univers 00:00:00 00:00:00 Miya WOLFF 350.1.13.10 i ty of [facility] 4[place] [id number] Il dical NAL 044 [facility] 2022-06-21 2022-06-21 Outpatient R JAVAN [facility] [id number] Univers 16:20:00 16:20:00 MIYA ity [facility] 2022-06-14 2022-06-14 Outpatient R HAYLEY, [facility] [id number] Univers 16:00:00 16:00:00 ABBEY alexsanket [facility] 2022-06-12 2022-06-12 Refdallas [facility] 1.2.840.114 [id number] Univers 00:00:00 00:00:00 Octavia HERNADEZ 350.1.13.10 ity of [facility] 4[place]2.7.2.[place] [id number] [address] [facility] 2022-06-09 2022-06-09 [facility] 1.2.840.114 [id number] Univers 00:00:00 00:00:00 Miya WOLFF 350.1.13.10 i [place] [id number] Il dical NAL 044 [facility] 2022-06-07 2022-06-07 [facility] Radiology [facility] 1.2.840.114 [id number] Univers 15:44:21 23:59:00 Encounter [place] 350.1.13.10 ity of [facility] 4[place]2.7.2.[place] [id number] [facility] 807 [place] 2022-06-07 2022-06-07 Outpatient R RADIOLOGY [facility] [id number] Univers 15:43:47 15:43:47 ity of [facility] 2022-06-07 2022-06-07 [facility] Radiology [facility] 1.2.840.114 [id number] Univers 15:43:47 15:43:47 Encounter [place] 350.1.13.10 [place] [id number] [facility] 804 [place] 2022-06-03 2022-06-03 [facility] [id number] Univers 14:00:00 14:29:10 MIYA rogerio [facility] 2022-06-03 2022-06-03 Office [facility] 1.2.840.114 [id number] Univers 14:00:00 14:29:10 Visit Miya WOLFF 350.1.13.10 i [place] [id number] Il dicks NAL [address] [place] [address] 2022-05-28 2022-05-28 [facility] 1.2.840.114 [id number] Univers 00:00:00 00:00:00 Miya WOLFF 350.1.13.10 i [place] [id number] [place] dic[address] 2022-05-24 2022-05-24 Out[facility] [id number] Univers 16:00:00 16:00:00 ABBEY sanket [facility] 2022-05-12 2022-05-12 Outpatient [facility] [id number] Univers 15:40:00 15:40:00 MIYA sanket [facility] 2022-05-12 2022-05-12 Telephone [facility] 1.2.840.114 [id number] Univers 00:00:00 00:00:00 Miya WOLFF 350.1.13.10 i [place] [phone] [address] 2022-05-12 2022-05-12 Telephone [facility] 1.2.722.368 [id number] Univers 00:00:00 00:00:00 Octavia HERNADEZ 350.1.13.10 ity khalif [place] [id number] [address] [facility] 2022-04-21 2022-04-21 Outpatient [facility] [id number] Univers 15:45:00 15:45:00 ABBEY ity [facility] 2022-04-13 2022-04-13 [facility] 1.2.840.114 [id number] Univers 00:00:00 00:00:00 Miya WOLFF 350.1.13.10 i [place] [id number] Il dical NAL 044 [facility] 2022-03-30 2022-03-30 [facility] 1.2.840.114 [id number] Univers 00:00:00 00:00:00 Miya WOLFF 350.1.13.10 [place] [id number] Il dicks NAL [address] [place] [address] 2022-02-18 2022-02-18 Outpatient R [facility] [id number] Univers 00:00:00 00:00:00 MIYA beatty [facility] 2022-02-17 2022-02-17 [facility] 1.2.840.114 [id number] Univers 00:00:00 00:00:00 Miya TIMMONS 350.1.13.10 it y [place] [id number] [facility] 225 [place] 2022-02-10 2022-02-10 [facility] [id number] Univers 12:54:03 23:59:00 MIYA beatty [facility] 2022-02-10 2022-02-10 [facility] 1.2.840.114 [id number] Univers 12:54:03 23:59:00 Encounter Miya WOLFF 350.1.13.10 [place] [id number] [facility] 807 [place] 2022-02-03 2022-02-03 Emergency X JOSAFAT [facility] ERT [id number] Univers 08:19:00 09:38:00 CAROLINA beatty [facility] 2022-02-03 2022-02-03 Emergency [facility] 1.2.840.114 [id number] [facility] 08:19:00 09:38:00 Carolina WOLFF 350.1.13.10 ity of [facility] [place].7.2.[place] [id number] [address] 2022-02-02 2022-02-02 Refill [facility] 1.2.840.114 [id number] Univers 00:00:00 00:00:00 Miya WOLFF 350.1.13.10 [place] [id number] Il dical NAL 044 [facility] 2022-01-27 2022-01-[address] [facility] [id number] [facility] 16:00:00 17:05:13 MIYA beatty [facility] 2022-01-27 2022-01-27 Office [facility] 1.2.840.114 [id number] [facility] 16:00:00 17:05:13 Visit Miya WOLFF 350.1.13.10 i [place] [id number] Il dical NAL 044 [facility] 2022-01-26 2022-01-26 Supply Officer Sherry, [facility] Lab Main [facility] 1.2.8 40.114 [id number] [facility] 07:45:00 08:00:00 Visit Miya Olsen 350.1.13.10 [place] [id number] Il dical NAL 353 [facility] 2022-01-26 2022-01-26 Outpatient [facility] [id number] Univers 07:45:00 07:45:00 MIYA alexsanket [facility] 2022-01-12 2022-01-12 Telephone [facility] 1.2.840.114 [id number] Univers 00:00:00 00:00:00 Miya WOLFF 350.1.13.10 i ty of [facility] 4.2.7.2.[place] [id number] Il dical NAL [address] [place] [address] 2022-01-03 2022-01-03 [facility] 1.2.840.114 [id number] Univers 00:00:00 00:00:00 Miya WOLFF 350.1.13.10 i ty of [facility] 4.2.7.2.[place] [id number] Il dicks NAL [address] [place] [address] 2021-12-30 2021-12-30 [facility] 1.2.840.114 [id number] Univers 00:00:00 00:00:00 Miya WOLFF 350.1.13.10 i ty of [facility] 4[place]2.7.2.[place] [id number] Il dicks NAL [address] [place] [address] 2021-12-29 2021-12-29 [facility] 1.2.840.114 [id number] Univers 00:00:00 00:00:00 Miya WOLFF 350.1.13.10 i ty of [facility] 4.2.7.2.[place] [id number] Il dicks NAL [address] [place] [address] 2021-12-24 2021-12-24 [facility] 1.2.840.114 [id number] Univers 00:00:00 00:00:00 Miya WOLFF 350.1.13.10 i ty of [facility] 4.2.7.2.[place] [id number] Il dical NAL [address] [place] [address] 2021-12-24 2021-12-24 [facility] 1.2.840.114 [id number] Univers 00:00:00 00:00:00 Miya WOLFF 350.1.13.10 i ty of [facility] 4[place]2.7.2.[place] [id number] Il dicks NAL [address] [place] [address] 2021-12-23 2021-12-23 Outpatient [facility] [id number] Univers 16:00:00 16:43:06 [facility] 2021-12-23 2021-12-23 Office [facility] 1.2.840.114 [id number] Univers 16:00:00 16:43:06 Visit Miya WOLFF 350.1.13.10 i ty of [facility] [place].7[place] [id number] [address] 2021-12-23 2021-12-23 Outpatient R [facility] [id number] Univers 16:00:00 16:00:00 MIYA itsanket [facility] 2021-12-23 2021-12-23 Telephone [facility] 1.2.840.114 [id number] Univers 00:00:00 00:00:00 Miya WOLFF 350.1.13.10 i ty of [facility] 4[place].7.2.[place] [id number] [address] 2021-12-19 2021-12-19 Refill [facility] 1.2.840.114 [id number] Univers 00:00:00 00:00:00 Miya WOLFF 350.1.13.10 i ty of [facility] 4.2.7.[place] [id number] [address] 2021-12-17 2021-12-17 Patient Doctor [facility] 1.2.840.114 [id number] Univers 00:00:00 00:00:00 Secure Msg UnassignedNEW 350.1.13.10 ity of [place] [facility] 4.2.7.2.[place] [id number] [address] 2021-12-09 2021-12-09 Telephone [facility] 1.2.840.114 [id number] Univers 00:00:00 00:00:00 Miya WOLFF 350.1.13.10 i ty of [facility] 4.[place].7.[place] [id number] [address] 2021-12-08 2021-12-08 Outpatient R [facility] [id number] Univers 15:40:00 16:27:17 MIYA itsanket of [facility] 2021-12-08 2021-12-08 [facility]medici [facility] 1.2.840.114 [id number] Univers 15:40:00 16:27:17 ne Visit Miya WOLFF 350.1.13.10 ity of [facility] 4.2.7.[place] [id number] Il dical NAL 044 [facility] 2021-12-06 2021-12-06 Patient [facility] 1.2.840.114 [id number] Univers 00:00:00 00:00:00 Secure Msg Miya APPIAHXAVIER 350.1.13.10 [place] [id number] Il dical NAL 044 [facility] 2021-12-03 2021-12-03 Supply Officer Sherry, [facility] Main [facility] 1.2.8 40.114 [id number] Univers 07:45:00 08:00:00 Visit Miya Olesn 350.1.13.10 [place] [id number] Il dical NAL 353 [facility] 2021-12-03 2021-12-03 Outpatient [facility] [id number] Univers 07:45:00 07:45:00 MIYA beatty [facility] 2021-12-03 2021-12-03 Orders Doctor PABLO 1.2.840.114 [id number] Univers 00:00:00 00:00:00 Only Unassigned, TRICIA 350.1.13.10 ity of [place] [facility] 4.2.7.2.686 David as [phone] [address] 2021-11-26 2021-11-26 Neo [facility] 1.2.840.114 [id number] Univers 00:00:00 00:00:00 Nathaly NEW 350.1.13.10 i ty of [facility] 4.2.7.2.[place] [id number] Il dical NAL [address] [place] [address] 2021-11-19 2021-11-19 Refill [facility] 1.2.840.114 [id number] Univers 00:00:00 00:00:00 Miya WOLFF 350.1.13.10 [place] [id number] [address] 2021-10-28 2021-10-28 Supply Officer Only, Ang Db Test [facility] 1.2.8 40.114 [id number] Univers 14:00:00 14:15:00 Visit Chary Myers [facility] 350.1.13.10 ity [facility] 4.2.7.2.686 David as GABRIELA?BLEA [phone] [address] OFFICE [facility] 2021-10-28 2021-10-28 Outpatient R FRANK [facility] [id number] Univers 14:00:00 14:00:00 [facility] 2021-10-24 2021-10-24 Supply Officer Only, Ang Db Test [facility] 1.2.8 40.114 [id number] Univers 09:30:00 09:45:00 Visit Chary Myers [facility] [id number] ity of [place] [id number] David as GABRIELA?BLEA [id number] [address] OFFICE [facility] 2021-10-24 2021-10-24 Outpatient R FRANK [facility] [id number] Univers 09:30:00 09:28:17 [facility] 2021-10-22 2021-10-22 [facility] 1.2.840.114 [id number] Univers 00:00:00 00:00:00 Secure Msg Miya WOLFF 350.1.13.10 ity [facility] [place] [phone] [address] 2021-10-05 2021-10-05 Telephone [facility] 1.2.840.114 [id number] Univers 00:00:00 00:00:00 Miya WOLFF 350.1.13.10 i ty of [facility] 4.[place] [phone] Il dical NAL [address] [place] [address] 2021-10-01 2021-10-01 Luz Tomas [facility] 1.2.840.114 [id number] Univers 16:30:00 17:17:32 Visit Nathaly WOLFF 350.1.13.10 i ty of [facility] 4.2.7.2.[place] [phone] [address] 2021-10-01 2021-10-01 Outpatient [facility] [id number] Univers 16:30:00 17:17:32 NATHALYBernardino beatty [facility] 2021-10-01 2021-10-01 [facility] 1.2.840.114 [id number] Univers 00:00:00 00:00:00 Miya WOLFF 350.1.13.10 i ty of [place] 4[place].7.2.[place] [phone] [address] 2021-09-28 2021-09-28 [facility] 1.2.840.114 [id number] Univers 00:00:00 00:00:00 Miya WOLFF 350.1.13.10 i ty of [facility] 4.2.7.2.[place] [phone] [facility] [address] [place] [address] 2021-09-25 2021-09-25 [facility] 1.2.840.114 [id number] Univers 00:00:00 00:00:00 Miya WOLFF 350.1.13.10 i ty of [facility] 4.2.7.2.[place] [phone] [facility] NAL [address] [place] [address] 2021-09-24 2021-09-24 Refdallas [facility] 1.2.840.114 [id number] Univers 00:00:00 00:00:00 Miya WOLFF 350.1.13.10 i ty of [place] 4.2.7.2.[place] [phone] Il dical NAL 044 [facility] 2021-08-10 2021-08-10 [facility] R [facility] [id number] Univers 15:40:00 15:40:00 MIYA beatty [facility] 2021-07-24 2021-07-24 [facility] 1.2.840.114 [id number] Univers 00:00:00 00:00:00 Miya WOLFF 350.1.13.10 i ty of [place] 4.2.7.2.[place] [phone] Il dical NAL 044 [facility] 2021-07-23 2021-07-23 [facility] 1.2.840.114 [id number] Univers 00:00:00 00:00:00 Miya WOLFF 350.1.13.10 i ty of [place] 4.2.7.2.[place] [phone] Il dical NAL 044 [facility] 2021-06-18 2021-06-18 Telephone [place] [address].2.840.114 [id number] Univers 00:00:00 00:00:00 Miya WOLFF 350.1.13.10 i ty of [place] 4.2.7.2.[place] [id number] Il dical NAL 225 [facility] 2021-06-14 2021-06-14 Telephone [place] [address].2.840.114 [id number] Univers 00:00:00 00:00:00 Miya WOLFF 350.1.13.10 i ty of [place] 4.2.7.2.[place] [phone] Il dical NAL 044 [facility] 2021-06-10 2021-06-10 [address]114 9 [id number] Univers 00:00:00 00:00:00 Miya WOLFF 350.1.13.10 i ty of [place] 4.2.7.2.[place] [phone] Il dical NAL 044 [facility] 2021-06-08 2021-06-08 Telephone [facility] 1.2.840.114 [id number] Univers 00:00:00 00:00:00 Miya WOLFF 350.1.13.10 i ty of [facility] 4.2.7.2.[place] [phone] Il dical NAL 044 [facility] 2021-05-31 2021-05-31 Telephone [facility] 1.2.840.114 [id number] Univers 00:00:00 00:00:00 Miya WOLFF 350.1.13.10 i ty of [place] 4.2.7.2.[place] [phone] Il dical NAL [address] [place] [address] 2021-05-27 2021-05-27 Refill [facility] 1.2.840.114 [id number] Univers 00:00:00 00:00:00 Miya WOLFF 350.1.13.10 i ty of [place] 4.2.7.2.[place] [phone] Il dical NAL [address] [place] [address] 2021-05-27 2021-05-27 Telephone [facility] 1.2.840.114 [id number] Univers 00:00:00 00:00:00 Miya WOLFF 350.1.13.10 i ty of [facility] 4.2.7.2.[place] [phone] Il dical NAL 044 [facility] 2021-05-20 2021-05-20 [facility] [id number] Univers 15:30:00 15:32:49 NIKA beatty of [facility] 2021-05-20 2021-05-20 Office [facility] 1.2.840.114 [id number] Univers 15:30:00 15:32:49 Visit Nika WOLFF 350.1.13.10 ity of [facility] 4.2.7.2.[place] [phone] Il dical NAL 134 [facility] 2021-05-18 2021-05-18 Neo [facility] 1.2.840.114 [id number] Univers 00:00:00 00:00:00 [facility] 350.1.13.10 it y of [facility] 4.2.7.2.686 David as GABRIELA?BLEA [phone] Il ayde ENCINAS [address] [place] [address] 2021-05-13 2021-05-13 Telephone [facility] 1.2.840.114 [id number] Univers 00:00:00 00:00:00 Miya WOLFF 350.1.13.10 i ty of [facility] 4.2.7.2.[place] [phone] Il ayde JAIN [address] [place] [address] 2021-05-11 2021-05-11 Telephone [facility] 1.2.840.114 [id number] Univers 00:00:00 00:00:00 Miya WOLFF 350.1.13.10 i ty of [facility] 4.2.7.2.[place] [phone] Il ayde JAIN [address] [place] [address] 2021-05-10 2021-05-10 Telephone [facility] 1.2.840.114 [id number] Univers 00:00:00 00:00:00 Miya WOLFF 350.1.13.10 i ty of [facility] 4.2.7.2.[place] [phone] Il rogelioks CRISTOBAL [address] [place] [address] 2021-05-10 2021-05-10 Telephone [facility] 1.2.840.114 [id number] Univers 00:00:00 00:00:00 Miya WOLFF 350.1.13.10 i ty of [facility] 4.2.7.2.[place] [phone] [address] 2021-05-06 2021-05-06 Outpatient R [facility] [employer] [id number] Univers 09:05:00 14:37:00 NIKA beatty of [facility] 2021-05-06 2021-05-06 [facility] 1.2.840.114 [id number] Univers 09:05:00 14:37:00 Encounter Nika Tl WOLFF 350.1.13.10 ity of [place] 4.2.7.2.[place]ICAL [phone] [facility] [address] [place] 2021-05-06 2021-05-06 Outpatient R [facility] [employer] [id number] Univers 09:05:00 14:37:00 NIKA itsanket [facility] 2021-05-06 2021-05-06 Surgery [facility] 1.2.840.114 [id number] Univers 12:31:00 14:31:00 Nika Tl WOLFF 350.1.13.10 ity of [facility] 4.2.7.2.[place] [phone] [facility] [address] [place] 2021-05-06 2021-05-06 Telephone [facility] 1.2.840.114 [id number] Univers 00:00:00 00:00:00 Miya WOLFF 350.1.13.10 i ty of [facility] 4.2.7.2.[place] [phone] Il dical NAL 044 [facility] 2021-05-05 2021-05-05 Outpatient R [facility] [id number] Univers 16:00:00 16:31:52 MIYA beatty [facility] 2021-05-05 2021-05-05 Office [facility] 1.2.840.114 [id number] Univers 16:00:00 16:31:52 Visit Miya WOLFF 350.1.13.10 i ty of [facility] 4.2.7.2.[place] [phone] Il dical NAL 044 [facility] 2021-05-04 2021-05-04 Supply Officer Sherry, Jimmy Lab Main [facility] 1.2.8 40.114 [id number] Univers 12:15:00 12:30:00 Visit Nika Berry Tl WOLFF 350.1.13.10 ity of [facility] 4.2.7.2.[place] [phone] Il dical NAL 353 [facility] 2021-05-04 2021-05-04 Outpatient R [facility] [id number] Univers 12:15:00 12:15:00 ity of [facility] 2021-05-04 2021-05-04 Laboratory Only, Adc Test [facility] 1.2.840. 114 [id number] Univers 12:00:00 12:15:00 Only Adum, Nika WOLFF 350.1.13.10 ity [facility] 4.2.7.2.686 [place] [phone] [facility] [address] [place] 2021-05-04 2021-05-04 Outpatient R ADUM, [facility] [id number] Univers 12:00:00 12:00:00 NIKA beatty [facility] 2021-05-04 2021-05-04 Orders Doctor PABLO 1.2.840.114 [id number] Univers 00:00:00 00:00:00 Only Unassigned, TRICIA 350.1.13.10 [facility] 4.2.7.2.686 [facility] [phone] [address] 2021-04-22 2021-04-22 Outpatient R ADUM, [facility] [id number] Univers 14:30:00 15:09:50 NIKA beatty [facility] 2021-04-22 2021-04-22 Office Adum, [facility] 1.2.840.114 [id number] Univers 14:30:00 15:09:50 Visit Nika WOLFF 350.1.13.10 ity [facility] 4.2.7.2.[place] [facility] [phone] Il dical [facility] 134 [facility] 2021-04-22 2021-04-22 Outpatient R ADUM, [facility] [id number] Univers 15:00:00 15:00:00 NIKAJESSICA beatty [facility] 2021-04-22 2021-04-22 Refdallas [facility] 1.2.840.114 [id number] Univers 00:00:00 00:00:00 Miya WOLFF 350.1.13.10 i ty [facility] 4[place]2.7.2.[place] [phone] Il dical NAL 044 [facility] 2021-04-20 2021-04-20 Outpatient R [facility] [id number] Univers 16:15:00 16:50:21 ABBEY beatty [facility] 2021-04-20 2021-04-20 Office [facility] 1.2.523.169 [id number] [facility] 16:15:00 16:50:21 Visit Abbey WOLFF 350.1.13.10 i ty of [facility] 4.2.7.2.[place] [phone] Il dical NAL 188 [facility] 2021-04-19 2021-04-19 Refill [facility] 1.2.840.114 [id number] Univers 00:00:00 00:00:00 Miya WOLFF 350.1.13.10 i ty of [facility] 4.2.7.2.[place] [phone] Il dical NAL 044 [facility] 2021-04-12 2021-04-12 Telephone [facility] 1.2.840.114 [id number] Univers 00:00:00 00:00:00 Miya WLOFF 350.1.13.10 i ty of [facility] 4.2.7.2.[place] [phone] Il dical NAL 044 [facility] 2021-04-02 2021-04-02 Outpatient R [facility] [id number] Univers 08:03:00 10:35:00 ABBEY beatty [facility] 2021-04-02 2021-04-02 [facility] 1.2.840.114 [id number] Univers 08:03:00 10:35:00 Encounter Abbey WOLFF 350.1.13.10 ity of [facility] 4.2.7.2.[place] [id number] [address] 2021-04-02 2021-04-02 Surgery [facility] 1.2.410.758 [id number] Univers 09:32:00 10:30:00 Abbey WOLFF 350.1.13.10 i ty [place] 4.2.7.2.[place] [phone] [facility] [address] [place] 2021-04-02 2021-04-02 Orders Doctor BEV 1.2.840.114 [id number] Univers 00:00:00 00:00:00 Only Unassigned, TRICIA 350.1.13.10 ity of [place] [facility] 4.2.7.2.686 David as [phone] [facility] [address] 2021-03-19 2021-03-19 Outpatient R [facility] [id number] Univers 15:30:00 15:30:00 NIKA beatty [facility] 2021-03-16 2021-03-16 Telephone [facility] 1.2.053.073 [id number] Univers 00:00:00 00:00:00 Nika WOLFF 350.1.13.10 ity of [place]2.7.2.[place] [phone] Il dical NAL [address] [facility] 2021-03-10 2021-03-10 [facility] 1.2.840.114 [id number] Univers 13:48:49 23:59:00 Encounter Eva WOLFF 350.1.13.10 [place]y [place] 4[place]2.7.2.[place] [phone] [facility] [address] [place] 2021-03-10 2021-03-10 Outpatient R [facility] [id number] Univers 13:46:21 13:47:00 EVA beatty o f [facility] 2021-03-10 2021-03-10 [facility] 1.2.840.114 [id number] Univers 13:46:21 13:47:00 Encounter Eva WOLFF 350.1.13.10 it[place]2.7.2.[place] [id number] [facility] [address] [place] 2021-03-04 2021-03-04 Outpatient R [facility] [employer] [id number] Univers 12:51:00 16:33:00 NIKA beatty [facility] 2021-03-04 2021-03-04 Hospital [facility] 1.2.840.114 [id number] Univers 12:51:00 16:33:00 Encounter Nika Boothe DINAHXAVIER 350.1.13.10 ity of [facility] 4.2.7.2.[place] [phone] [facility] [address] [place] 2021-03-04 2021-03-04 Surgery [facility] 1.2.840.114 [id number] Univers 13:25:00 15:26:00 Nika WOLFF 350.1.13.10 ity of [place] 4.2.7.2.[place] [id number] [facility] [address] 2021-03-04 2021-03-04 Telephone [facility] 1.2.427.097 [id number] Univers 00:00:00 00:00:00 Eva WOLFF 350.1.13.10 ity [place] 4[place]2.7.2.[place] [phone] Il dical NAL 059 [facility] 2021-03-04 2021-03-04 Orders Doctor BEV 1.2.840.114 [id number] Univers 00:00:00 00:00:00 Only Unassigned, TRICIA 350.1.13.10 ity of [place] [facility] 4.2.7.2.686 David as [phone] [facility] [address] 2021-03-02 2021-03-02 Supply Officer 1, Adc Lab [facility] 1.2.840.114 [id number] Univers 11:38:41 11:53:41 Visit AdNika gaxiola DINAHXAVIER 350.1.13.10 ity of [facility] 4.2.7.2.[place] [phone] [facility] [address] 2021-03-02 2021-03-02 Outpatient R [facility] [id number] Univers 11:30:00 11:30:00 ity of [facility] 2021-03-02 2021-03-02 Outpatient R AD, [facility] [id number] Univers 11:30:00 11:30:00 NIKA ity of [facility] 2021-03-02 2021-03-02 Orders Doctor PABLO 1.2.840.114 [id number] Univers 00:00:00 00:00:00 Only Unassigned, TRICIA 350.1.13.10 ity of [facility] 4.2.7.2.686 [place] as [phone] [address] 2021-03-01 2021-03-01 Outpatient R ALEC, [facility] [id number] Univers 00:00:00 00:00:00 EVA johnsony o [facility] 2021-03-01 2021-03-01 Outpatient R ALEC, [facility] [id number] Univers 00:00:00 00:00:00 EVA ity o [facility] 2021-02-26 2021-02-26 Outpatient R ADUM, [facility] [id number] Univers 16:00:00 17:26:37 NIKA [facility] 2021-02-26 2021-02-26 Outpatient R ADUM, [facility] [id number] Univers 16:00:00 17:26:37 NIKA [facility] 2021-02-26 2021-02-26 Office Ad, [facility] 1.2.840.114 [id number] Univers 15:40:04 17:26:37 Visit Nika Tl WOLFF 350.1.13.10 [facility] 4.2.7.2.[place] [phone] Il dical NAL [address] [place] [address] 2021-02-26 2021-02-26 Outpatient R ADUM, [facility] [id number] Univers 16:00:00 16:00:00 NIKA beatty [facility] 2021-02-26 2021-02-26 [facility] 1.2.840.114 [id number] Univers 00:00:00 00:00:00 Surgery Nika Tl [facility]OLFF 350.1.13.10 [facility] [place]2.7.2.[place] [phone] Il dical NAL [address] [place] [address] 2021-02-26 2021-02-26 Orders Doctor PABLO 1.2.840.114 [id number] Univers 00:00:00 00:00:00 Only Unassigned, TRICIA 350.1.13.10 ity of [place] [facility] 4.2.7.2.686 David as [phone] [address] 2021-02-25 2021-02-25 Prep [facility] 1.2.840.114 [id number] Univers 00:00:00 00:00:00 Surgery Diann Espitia NEW 350.1.13.10 ity of [place].7.2.[place] [phone] Il dical NAL 204 [facility] 2021-02-24 2021-02-24 Orders Doctor BEV 1.2.840.114 [id number] Univers 00:00:00 00:00:00 Only Unassigned, TRICIA 350.1.13.10 ity of [place] [facility] 4.2.7.2.686 David as [phone] [address] 2021-02-23 2021-02-23 Outpatient [facility] [id number] Univers 14:30:00 15:55:10 ABBEY rogerio [facility] 2021-02-23 2021-02-23 Office [facility] 1.2.183.327 [id number] Univers 14:21:20 15:55:10 Visit Abbey WOLFF 350.1.13.10 i ty [place] 4.2.7.2.[place] [phone] Il dical NAL 188 [facility] 2021-02-23 2021-02-23 Outpatient [facility] [id number] Univers 14:30:00 14:30:00 ABBEY beatty [facility] 2021-02-23 2021-02-23 Orders Doctor BEV 1.2.840.114 [id number] Univers 00:00:00 00:00:00 Only Unassigned, TRICIA 350.1.13.10 ity of [place] [facility]OSPITAL 4.2.7.2.686 David as [phone] [address] 2021-02-17 2021-02-17 Outpatient Jhoana MICHAEL [facility] [id number] Univers 14:10:00 23:59:00 EVA beatty o margaret [facility] 2021-02-17 2021-02-17 Hospital [facility] 1.2.840.114 [id number] Univers 14:10:00 23:59:00 Encounter Eva WOLFF 350.1.13.10 ity of [facility] 4.2.7.2.[place] [phone] Il dical NAL 846 [facility] 2021-02-17 2021-02-17 Outpatient R [facility] [id number] Univers 15:40:00 14:10:44 EVA calderón [facility] 2021-02-17 2021-02-17 Outpatient R [facility] [id number] Univers 15:40:00 14:10:44 EVA robles [facility] 2021-02-17 2021-02-17 Office [facility] 1.2.840.114 [id number] Univers 13:16:10 14:10:44 Visit Eva WOLFF 350.1.13.10 ity of [facility] 4.2.7.2.[place] [phone] Il dicrosalba NAL 059 [facility] 2021-02-17 2021-02-17 Office [facility] 1.2.840.114 [id number] Univers 13:16:10 14:10:44 Visit Eva WOLFF 350.1.13.10 ity of [place] 4.2.7.2.[place] [phone] Il dical NAL 059 [facility] 2021-02-16 2021-02-16 Telephone [facility] 1.2.840.114 [id number] Univers 00:00:00 00:00:00 Miya WOLFF 350.1.13.10 i ty of [place] 4.2.7.2.[place] [id number] Il dical NAL 044 [facility] 2021-02-11 2021-02-11 Patient [facility] 1.2.840.114 [id number] Univers 00:00:00 00:00:00 Secure Msg Miya NEW 350.1.13.10 ity of [facility] 4.2.7.2.[place] [phone] Il dical NAL 044 [facility] 2021-02-11 2021-02-11 [facility] 1.2.840.114 [id number] Univers 00:00:00 00:00:00 Miya WOLFF 350.1.13.10 i ty of [facility] 4.2.7.2.[place] [id number] Il dical NAL 044 [facility] 2021-02-10 2021-02-10 [facility] 1.2.840.114 [id number] Univers 10:33:05 23:59:00 Encounter Miya New 350.1.13.10 ity of [place] 4[place]2.7.2.686 [place] [phone] [address] 2021-02-10 2021-02-10 Outpatient [facility] [id number] Univers 10:33:05 23:59:00 MIYA beatty [facility] 2021-02-09 2021-02-09 Supply Officer 2, Adc Lab [facility] 1.2.840.114 [id number] Univers 15:57:13 16:12:13 Visit JavanMiya 350.1.13.10 ity of [place].7.2.[place] [phone] Il dical nal 353 [facility] 2021-02-09 2021-02-09 Outpatient R [facility] [id number] Univers 15:00:00 15:52:52 NIKA beatty [facility] 2021-02-09 2021-02-09 Office [facility] 1.2.840.114 [id number] Univers 14:35:17 15:52:52 Visit Nika Wolff 350.1.13.10 ity of [place] 4.2.7.2.[place] [phone] Il dical nal 134 [facility] 2021-02-09 2021-02-09 Outpatient [facility] [id number] Univers 15:00:00 15:00:00 NIKA beatty [facility] 2021-02-08 2021-02-08 Telephone [facility] 1.2.819.654 [id number] Univers 00:00:00 00:00:00 Bev Wolff 350.1.13.10 i ty of [place].2.[place] [phone] Il dical nal 188 [facility] 2021-02-03 2021-02-03 [facility] 1.2.840.114 [id number] Univers 11:49:31 23:59:00 Encounter Miya Wolff 350.1.13.10 ity of [place].7.2.686 [place] [phone] [address] 2021-02-03 2021-02-03 Outpatient R [facility] [id number] Univers 00:00:00 00:00:00 MIYA rogerio [facility] 2021-02-03 2021-02-03 Telephone [place] [address].2.840.114 [id number] Univers 00:00:00 00:00:00 Miya Wolff 350.1.13.10 i ty of [place].7.2.[place] [phone] Il dical nal 044 [facility] 2021-01-26 2021-01-26 [facility] 1.2.840.114 [id number] Univers 00:00:00 00:00:00 (Out) Miya Wolff 350.1.13.10 i ty of [place]2.7.2.[place] [phone] Il dical nal 044 [facility] 2021-01-21 2021-01-21 [facility] 12.840.114 [id number] Univers 00:00:00 00:00:00 Miya Wolff 350.1.13.10 i ty of [place].7.2.[place] [id number] Il dical nal 044 [facility] 2021-01-20 2021-01-20 Office [facility] 1.2.840.114 [id number] Univers 15:33:31 17:02:48 Visit Miya Wolff 350.1.13.10 i ty of [place] 4.2.7.2.[place] [phone] Il dical nal 044 [facility] 2021-01-20 2021-01-20 Outpatient R JAVAN [facility] [id number] Univers 16:00:00 16:00:00 MIYA beatty [facility] 2021-01-07 2021-01-07 [facility] 1.2.840.114 [id number] Univers 00:00:00 00:00:00 Miya Wolff [id number] [id number] [phone] Il dical nal 231 [facility] 2020-12-11 2020-12-11 Outpatient R BUCKY [facility] [id number] Univers 15:40:00 15:40:00 RUSSELL [facility] 2020-12-11 2020-12-11 Imm/Inj Nurse, Adc Pob Immunization [facility] 1.2.840.114 [id number] Univers 11:44:57 11:45:04 Visit Russell Olvera 350.1.13 .10 [id number] [phone] Il dical nal 421 [facility] 2020-11-14 2020-11-14 Imm/Inj Vaccine, Adc Family [facility] 1.2.84 0.114 [id number] Univers 13:56:15 14:06:15 Visit Fern Evangelista [facility] [id number] ity of [place] [id number] [place] as Professio [phone] Il dical nal 044 [place] Office [facility] One 2020-11-14 2020-11-14 Outpatient R TONJA [facility] [id number] Univers 13:30:00 13:30:00 [facility] 2020-10-24 2020-10-24 Telephone Provider, [facility] 1.2.840.114 [id number] Univers 00:00:00 00:00:00 [facility] [id number] ity of Care [place] [id number] [place] Professio [phone] [address] One 2020-10-22 2020-10-22 Urgent Provider, [facility] Care [facility] 1.2.840.114 [id number] Univers 10:21:57 11:20:22 Care Cherri [facility] [id number] ity of [place] [id number] [place] Professio [phone] [address] One 2020-10-22 2020-10-22 Outpatient R CHERRI [facility] [id number] Univers 10:20:00 10:20:00 [facility] 2020-07-03 Outpatient R MAR [facility] [id number] Univers 10:00:00 10:00:00 FESTUS [facility] 2020-07-02 2020-07-02 [facility] 1.2.840.114 [id number] Univers 00:00:00 00:00:00 Outreach [facility] [id number] i ty of [facility] [id number] [phone] [address] 2020-04-23 2020-04-23 Outpatient R JAVAN [facility] [id number] Univers 16:20:00 16:20:00 MIYA [facility] 2020-01-28 2020-01-28 [facility] 1.2.840.114 [id number] 00:00:00 00:00:00 Miya [place] 350.1.13.10 [place] 4.2.7.2.686 Professio [phone] [address] 2020-01-28 2020-01-28 [facility] 1.2.840.114 [id number] Univers 00:00:00 00:00:00 Miya [place] [id number] i ty of [place] [phone] [place] [address] 2020-01-21 2020-01-21 Office [facility] 1.2.840.114 [id number] Univers 15:55:21 16:32:24 Visit Miya Wolff 350.1.13.10 i ty of [place] [phone] [place] dic[address] 2020-01-21 2020-01-21 Office [facility] 1.2.840.114 [id number] 15:55:21 16:32:24 Visit Miya Wolff 350.1.13.10 [place] 4.2.7.2.686 Professio [phone] [address] 2020-01-21 2020-01-21 Outpatient R [facility] [id number] Univers 16:00:00 16:00:00 MIYA [facility] 2020-01-15 2020-01-15 Outpatient R [facility] [id number] Univers 15:00:00 15:00:00 [facility] 2020-01-03 2020-01-03 Transition Marsha Copeland 1.2.840.114 [id number] Univers 00:00:00 00:00:00 of Care Karen Mueller 350.1.13.10 ity [place]2.[place] [phone] [facility] [address] [place] 2020-01-01 2020-01-01 Emergency [facility] [id number] Univers 14:37:00 17:46:00 Ramirez Wolff 350.1.13.10 i ty of [place].2.[place] [phone] [facility] [address] [place] 2020-01-01 2020-01-01 Office [facility] 1.2.840.114 [id number] Univers 13:13:43 14:23:28 Visit Miya Wolff 350.1.13.10 i ty [place] [phone] [address] 2020-01-01 2020-01-01 Outpatient R JAVAN [facility] [id number] Univers 13:20:00 13:20:00 IMYA beatty [facility] 2019-12-30 2019-12-30 [facility] [id number] Univers 11:40:00 11:40:00 GEORGE beatty [facility] 2019-12-30 2019-12-30 Laboratory Lab, [facility] Fam Pob I [facility] 1.2. 840.114 [id number] Univers 10:16:20 10:36:20 Only George Gil 350.1.13.10 ity of [place] 4.2.7.2.686 [place] as Professio [phone] [address] 2019-12-30 2019-12-30 Letter [facility] 1.2.840.114 [id number] Univers 00:00:00 00:00:00 (Out) Miya Ruiz 350.1.13.10 [place] y of [place] 4.2.7.2.686 [place] Professio [phone] [address] 2019-11-14 2019-11-14 Outpatient R JEFFERY [facility] [id number] Univers 14:40:00 14:40:00 GEORGE beatty [facility] 2019-11-14 2019-11-14 Supply Officer Lab, [facility] Fam Pob I [facility] 1.2. 840.114 [id number] Univers 14:18:15 14:37:06 Visit George Gil 350.1.13.10 ity of [place] 4.2.7.2.686 [place] Professio [phone] [address] 2019-10-15 2019-10-15 Laboratory Lab, Adc Fam Pob I [facility] 1.2. 840.114 [id number] Univers 13:23:22 13:43:22 Only Anene, [facility] 350.1.13.10 ity of [place] 4.2.7.2.686 [place] as Professio [phone] [place] dical nal [address] [place] Office [facility] One 2019-10-15 2019-10-15 Outpatient R JEFFERY [facility] [id number] Univers 13:20:00 13:20:00 GEORGE ity [facility] 2019-08-28 2019-08-28 Outpatient [facility] [id number] Univers 09:01:21 23:59:00 MARY ity of [facility] 2019-08-28 2019-08-28 [facility] 1.2.840.114 [id number] Univers 09:01:00 23:59:00 Encounter Mary Wolff 350.1.13.10 ity of [place]2.[place].2.[place] [phone] [facility] [address] [place] 2019-08-28 2019-08-28 Outpatient [facility] [id number] Univers 08:00:00 08:00:00 MIYA johnsonsanket [facility] 2019-08-28 2019-08-28 Telephone BEV Lindo 1.2.847.906 [id number] Univers 00:00:00 00:00:00 Mary CLARKE 350.1.13.10 i ty of [facility] 4.2.7.2.686 David as [phone] [facility] [address] [place] 2019-06-03 2019-06-03 Office [facility] 1.2.840.114 [id number] Univers 13:49:16 14:41:30 Visit [facility] 350.1.13.10 it y of [place] 4.2.7.2.686 [place] as Professio [phone] [place] dical nal 044 [place] Office [facility] 2019-06-03 2019-06-03 Letter [facility] 1.2.840.114 [id number] Univers 00:00:00 00:00:00 (Out) [facility] 350.1.13.10 it y of [place] 4.2.7.2.686 [place] as Professio [phone] [place] dical nal 044 [facility] 2019-06-03 2019-06-03 Telephone Jeffery [facility] 1.2.208.435 [id number] Univers 00:00:00 00:00:00 George [facility] 350.1.13.10 it y of [place] 4.2.7.2.686 [place] as Professio [phone] [facility] 044 [facility] 2018-12-14 2018-12-14 Orders Doctor BEV 1.2.840.114 [id number] Univers 00:00:00 00:00:00 Only Unassigned, TRICIA 350.1.13.10 ity of [place] [facility] 4.2.7.2.686 David as [phone] [facility] [address] [place] 2018-12-04 2018-12-04 Ancillary Sherley Lofton [facility] 1.2.840 .114 [id number] Univers 10:53:20 11:38:20 Visit Rigoberto Diez 350.1.13.10 ity of [place].2.[place] [phone] [facility] [address] [facility] 2018-11-28 2018-11-28 Telephone Kevin Valadez [facility] 1.2.840.114 [id number] Univers 00:00:00 00:00:00 Rosemary Wolff 350.1.13.10 i ty of [place]2.[place].2.[place] [phone] [facility] [address] [facility] 2018-11-25 2018-11-25 Emergency Dharmesh [facility] 1.2.568.162 [id number] Univers 12:54:02 16:54:00 Betito Wolff 350.1.13.10 i ty of [place] 4[place]2.[place].2.[place] [phone] [facility] [address] [place] 2018-11-25 2018-11-25 Orders Doctor BEV 1.2.840.114 [id number] Univers 00:00:00 00:00:00 Only Unassigned, TRICIA 350.1.13.10 ity of [place] [facility] 4.2.7.2.686 David as [phone] [facility] [address] [place] 2018-11-22 2018-11-22 Ancillary Sherley Lofton [facility] 1.2.840 .114 [id number] [facility] 10:57:21 16:41:21 Visit Rigoberto Diez 350.1.13.10 ity of [place] 4.2.[place].2.[place] [phone] [place] dical nal [address] 2018-11-20 2018-11-20 Ancillary Sherley Lofton [facility] 1.2.840 .114 [id number] [facility] 11:02:45 11:47:45 Visit Rigoberto Diez 350.1.13.10 ity of [place] 4.2.7.2.[place] [phone] [place] dical nal [address] [place] [address] 2018-11-16 2018-11-16 [facility] 1.2.840.114 [id number] [facility] 09:44:34 23:59:00 Encounter Health 350.1.13.10 ity of [place].2.[place] [phone] [facility] [address] 2018-11-16 2018-11-16 [facility] 1.2.840.114 [id number] [facility] 09:44:18 23:59:00 Encounter Health 350.1.13.10 [place] [phone] [facility] [address] 2018-11-16 2018-11-16 Office [facility] 1.2.840.114 [id number] [facility] 09:12:01 10:21:34 Visit Health 350.1.13.10 it y [place]2.[place] [phone] [facility] [address] 2018-11-15 2018-11-15 Kevin Stein [facility] 1.2.840.114 [id number] Univers 00:00:00 00:00:00 C [place] 350.1.13.10 i ty of [place] 4.2.7.2.[place] [phone] Il dical nal [address] 2018-11-13 2018-11-13 Ancillary Carmen Mott [facility] 1 .2.840.114 [id number] [facility] 10:50:44 11:00:07 Visit Rigoberto Diez 350.1.13.10 [facility] 4.2.7.2.686 Russ Carlos [phone] [place] dical nal [address] [facility] Results Test Description Test Time Test Comments Results Result Comments Source COMP. METABOLIC PANEL (01024) 2022-02-03 14:01:08 Test Item Value Reference Range Interpretation Comme nts NA (test code = 5345527044) 140 mmol/L 135-145 K (test code = 4254110310) 4.0 mmol/L 3.5-5 CL (test code = 7330933206) 104 mmol/L 98-108 CO2 TOTAL (test code = 1486344969) 22 mmol/L 23-31 L AGAP (test code = 1646519846) 2-16 BUN (test code = 1842402185) 17 mg/dL 7-23 GLUCOSE (test code = 1135415945) 118 mg/dL 70-110 H CREATININE (test code = 0.58 mg/dL 0.5-1.04 4253466272) TOTAL BILI (test code = 0.3 mg/dL 0.1-1.7 8203453918) CALCIUM (test code = 2746028149) 9.5 mg/dL 8.6-10.6 T PROTEIN (test code = 2102766549) 7.2 g/dL 6.3-8.2 ALBUMIN (test code = 5247485489) 4.5 g/dL 3.5-5 ALK PHOS (test code = 4932922340) 54 U/L 34-122 ALTv (test code = 1742-6) 28 U/L 5-35 AST(SGOT) (test code = 2852147881) 21 U/L 13-40 eGFR (test code = 6829148199) mL/min/1.73m2 MISAEL (test code = MISAEL) Association of Glomerular Filtration Rate (GFR) and Staging of Kidney Disease* + +-------- + ------+| GFR (mL/min/1.73 m2) ?| With Kidney Damage ?| ?Without Kidney Damage+ +-- + +| ?>90 ?| ?Stage one ?| ? Normal ?+ +------- + -------+| ?60-89 ?| ?Stage two ?| ? Decreased GFR ? + +-------- + ------+| ?30-59 ?| ?Stage three ?| ? Stage three ? + +-------- + ------+| ?15-29 ?| ?Stage four ? | ? Stage four ?+ +------- + -------+| ?<15 (or dialysis) ? ?| ?Stage five ? | ? Stage five ?+ +------- + -------+ *Each stage assumes the associated GFR level has been in effect for at least three months. ?Stages 1 to 5, with or without kidney disease, indicate chronic kidney disease. Notes: Determination of stages one and two (with eGFR >59mL/min/1.73 m2) requires estimation of kidney damage for at least three months as defined by structural or functional abnormalities of the kidney, manifested by either:Pathological abnormalities or Markers of kidney damage (including abnormalities in the composition of the blood or urine or abnormalities in imaging tests). Lab Interpretation (test code = Abnormal 24653-3) [facility] WITH [id number] 13:50:24 Test Item Value Reference Range Interpretation Comments WBC (test code = See_Comment [Automated 1541-2) message] The sy stem which generated this result transmitted reference range : 4.30 - 11.10 10*3/?L. The reference range was not used to interpret this result as normal/abnormal . RBC (test code = See_Comment [Automated 165-8) message] The sy stem which generated this result transmitted reference range : 3.93 - 5.25 10*6/?L. The reference range was not used to interpret this result as normal/abnormal . HGB (test code = 12.9 g/dL 11.6-15 718-7) HCT (test code = 38.1 % 35.7-45.2 4544-3) MCV (test code = 88.0 fL 80.6-95.5 787-2) MCH (test code = 29.8 pg 25.9-32.8 785-6) MCHC (test code = 33.9 g/dL 31.6-35.1 786-4) RDW-SD (test code = 42.5 fL 39-49.9 84352-3) RDW-CV (test code = 13.2 % 12-15.5 788-0) PLT (test code = See_Comment H [Automated 777-3) message] The sy stem which generated this result transmitted reference range : 166 - 358 10*3/ ?L. The reference r brittney was not used to interpret this result as normal/abnormal . MPV (test code = 9.2 fL 9.5-12.9 L 00862-9) NRBC/100 WBC (test See_Comment [Automat ed code = 9511820862) message] The system which generated this result transmitted reference range : 0.0 - 10.0 /100 WBCs. The refer ence range was not u sed to interpret th is result as normal/abnormal . NRBC x10^3 (test code See_Comment [Auto mated = 4304911250) message] The s ystem which generated this result transmitted reference range : 10*3/?L. The reference range was not used to interpret this result as normal/abnormal . GRAN MAT (NEUT) % 77.7 % (test code = 770-8) IMM GRAN % (test code 0.30 % = 3580574418) LYMPH % (test code = 15.5 % 736-9) MONO % (test code = 5.0 % 5905-5) EOS % (test code = 1.1 % 713-8) BASO % (test code = 0.4 % 706-2) GRAN MAT x10^3(ANC) 5.48 10*3/uL 1.88-7.09 (test code = 5843674763) IMM GRAN x10^3 (test 0-0.06 code = 6968233858) LYMPH x10^3 (test code 1.09 10*3/uL 1.32-3.29 L = 731-0) MONO x10^3 (test code 0.35 10*3/uL 0.33-0.92 = 742-7) EOS x10^3 (test code = 0.08 10*3/uL 0.03-0.39 711-2) BASO x10^3 (test code 0.03 10*3/uL 0.01-0.07 = 704-7) Lab Interpretation Abnormal (test code = 54255-3) [facility]"
[2022-08-30] MEDS ORDERED: NA CHLORIDE 0.9% 1,000 ML ONE (08:35)
[2022-08-30] MEDS ORDERED: ONDANSETRON 4 MG/2 ML VIAL ONE (08:35)
[2022-08-30] MEDS ORDERED: MORPHINE 4 MG/ML SYR ONE ×2 (08:35→09:03)
[2022-08-30 08:41] LABS: Absolute Lymphocytes (CBC) 1.1 K/uL (0.7-4.9); Hematocrit 38.6 % (36.0-45.0); Lymphocytes % 14.2 % (15.3-44.8); MCV 88.5 fL (80-100); MPV 7.5 fL (7.6-11.3); RBC Red Blood Cell Count 4.36 M/uL (3.86-4.86)
[2022-08-30 09:01] LABS: Albumin 3.5 g/dL (3.4-5.0); Bilirubin Total 0.5 mg/dL (0.2-1.0); Potassium 3.4 mEq/L (3.5-5.1); Protein, Total 7.4 g/dL (6.4-8.2)
[2022-08-30] MEDS ORDERED: HALOPERIDOL LACT 5 MG/ML INJ ONE (09:17)
--- NOTE | 2022-08-30 09:21 | RAD REPORT ---
EXAM DESCRIPTION: US - Abdomen Exam Limited - 08/30/2022 8:47 am CLINICAL HISTORY: ABD PAIN COMPARISON: [facility] Protocol dated 03/02/2019 TECHNIQUE: Sonographic grayscale and color flow images of the right upper abdominal quadrant were obtained. FINDINGS: The gallbladder demonstrates no gallstones. No pericholecystic fluid or gallbladder wall t hickening. The common bile duct is normal measuring 3 mm. The liver demonstrates no findings of intrahepatic biliary dilatation. IMPRESSION: Normal right upper quadrant ultrasound.
--- NOTE | 2022-08-30 10:07 | RAD REPORT ---
EXAM DESCRIPTION: CT - Abdomen Pelvis W Contrast - 08/30/2022 9:35 am CLINICAL HISTORY: ABD PAIN COMPARISON: [facility] Protocol dated 03/02/2019 TECHNIQUE: Thin cut axial CT imaging of the abdomen and pelvis was performed following intravenous a dministration of 100 mL Isovue 300. Multiplanar reformats were generated and reviewed. All CT scans are performed using dose optimization technique as appropriate and may include automated exposure control or mA/KV adjustment according to patient size. FINDINGS: Lobulated sub solid left lower lobe 6 millimeter nodule, axial image 9/100. The liver, spleen, and pancreas show no suspicious findings. Gallbladder and biliary tree are also wi thout suspicious finding. Symmetric renal function is seen with no hydronephrosis or suspicious renal mass. Left renal nonobstr ucting calculi, up to 3 millimeter, and the upper and lower pole. No dilated bowel loops or bowel wall thickening. Nonspecific fluid filling of distal lower abdominal small bowel loops, as well as the ascending colon, with short-segment air-fluid levels. No free air, free fluid or inflammatory stranding. No hernia, mass or bulky lymphadenopathy. The urinary bladder i s without significant finding. IUD in place. No suspicious bony findings. IMPRESSION: Nonspecific fluid filling of distal lower abdominal small bowel loops, as well as the as cending colon, with short-segment air-fluid levels. This could relate to enterocolitis. Incidentally noted sub solid left basal lung 6 millimeter nodule, deserves short-term interval follow -up CT chest in 6 months. Small left renal nonobstructing calculi.
--- NOTE | 2022-08-30 11:05 | EDPHYS ---
Physician Documentation [facility] Name: Octavia Lo Age: 42 yrs Sex: Female : 1980 Arrival Date: 08/30/2022 Time: 08:18 Bed 4 Private MD: ED Physician Zeyad Rivera HPI: 08/30 08:31 This 42 yrs old Female presents to ER via Unassigned with complaints of rn Nausea/Vomiting, Numbness - tingling extremities, Epigastric Pain. 08:32 The patient presents with abdominal pain in the epigastric area. Onset: The rn symptoms/episode began/occurred this morning. The symptoms do not radiate. Associated signs and symptoms: Pertinent positives: nausea and vomiting, diarrhea, Pertinent negatives: blood in stools, fever. The symptoms are described as sharp. Modifying factors: The symptoms are alleviated by nothing, the symptoms are aggravated by touching the area, vomiting. Severity of pain: At its worst the pain was moderate in the emergency department the pain is unchanged. The patient has experienced a previous episode. The patient has not recently seen a physician. Pt reports upper abd pain, started shortly after waking up, assoc with 5 episodes of non-bloody emesis. No fever. No chills. No cough/runny nose/sob/chest pain. Reports similar episode in past with pancreatitis, thought to be 2/2 gallstone, gallbladder not removed at that time. Reports after vomiting, feels tingling in all 4 extremities, no focal weakness, no speech problem, no vision changes. . 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 - Family history:: not pertinent. - Hospitalizations: : No recent hospitalization is reported. ROS: 08:32 Constitutional: Negative for fever, chills, and weight loss, Eyes: Negative for injury, rn pain, redness, and discharge, Cardiovascular: Negative for chest pain, palpitations, and edema, Respiratory: Negative for shortness of breath, cough, wheezing, and pleuritic chest pain, Abdomen/GI: + abd pain and nausea/vomiting Back: Negative for injury and pain, MS/Extremity: Negative for injury and deformity, Skin: Negative for injury, rash, and discoloration, Neuro: Negative for headache, and seizure. Exam: 08:32 Constitutional: This is a well developed, well nourished patient who is awake, alert, rn appears uncomfortable, holding emesis bag, and hyperventilating. Head/Face: Normocephalic, atraumatic. Eyes: Pupils equal round and reactive to light, extra-ocular motions intact. ENT: dry MM Neck: No Meningismus. Cardiovascular: Regular rate and rhythm. No pulse deficits. Respiratory: Mild tachypnea, no retractions, speaking full sentences. Abdomen/GI: soft, + epigastric and RUQ tenderness, no rebound Skin: Warm, dry MS/ Extremity: Pulses equal, no cyanosis Neuro: Awake and alert, GCS 15 08:39 ECG was reviewed by the Attending Physician. rn Vital Signs: 08:30 Pulse 65; Pulse Ox 100% ; Weight 83.91 kg; Height 5 ft. 5 in. ; ap3 08:38 BP 113 / 95; ap3 09:12 BP 136 / 99; Pulse 80; Pulse Ox 100% on R/A; ap3 11:13 BP 99 / 69; Pulse 79; Pulse Ox 99% on R/A; ap3 14:50 BP 116 / 88; Pulse 99; Pulse Ox 97% on R/A; ap3 08:30 Body Mass Index 30.79 (83.91 kg, 165.1 cm) ap3 MDM: 08:23 Patient medically screened. 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 11:00 Differential diagnosis: appendicitis, bowel obstruction, diverticulitis, non-specific rn abd pain, pancreatitis, Peptic Ulcer Disease, Perf. Duodenal Ulcer, Perf. Gastric Ulcer, urinary tract infection. Data reviewed: vital signs, nurses notes, lab test result(s), radiologic studies, CT scan, and as a result, I will admit patient. Consideration of Admission/Observation Patient was admitted/placed on observation. Escalation of care including admission/observation considered. Management of patient was discussed with the following: Hospitalist: . Counseling: I had a detailed discussion with the patient and/or guardian regarding: the historical points, exam findings, and any diagnostic results supporting the discharge/admit diagnosis, lab results, radiology results, the need for further work-up and treatment in the hospital. Response to treatment: the patient's symptoms have mildly improved after treatment, and as a result, I will admit patient. ED course: Pt with small bowel and ascending colon thickening and air fluid levels, no obstruction, possible enterocolitis, but patient had spinal surgery with anterior approach 2 months ago and will obs given intractable pain/vomiting and to rule out early obstruction.. 08/30 08:25 Order name: CBC with Diff; Complete Time: 09:13 08/30 08:25 Order name: CMP; Complete Time: 09:13 08/30 08:25 Order name: Lipase; Complete Time: 09:13 08/30 08:25 Order name: Test, Urine; Complete Time: 12:05 08/30 08:25 Order name: Urinalysis w/ reflexes; Complete Time: 12:05 08/30 08:32 Order name: Troponin High Sensitivity; Complete Time: 09:13 08/30 13:53 Order name: Lipid Profile [facility] 08/30 13:59 Order name: Hemoglobin A1c [facility] 08/30 08:25 Order name: CT Abd/Pelvis - IV Contrast Only; Complete Time: 10:47 08/30 08:25 Order name: US Abdomen Limited; Complete Time: 10:47 08/30 08:32 Order name: EKG; Complete Time: 08:32 08/30 08:25 Order name: IV Saline Lock; Complete Time: 08:58 08/30 08:25 Order name: Labs collected and sent; Complete Time: 08:58 08/30 08:32 Order name: EKG - Nurse/Tech; Complete Time: 08:38 rn EC:39 Rate is 85 beats/min. Rhythm is regular. QRS [place] is Normal. MN interval is normal. QRS rn interval is normal. QT interval is normal. No Q waves. T waves are Normal. No ST changes noted. Clinical impression: Normal ECG. Interpreted by me. Reviewed by me. Administered Medications: 08:38 Drug: NS 0.9% IV 1000 ml Route: IV; Rate: 1 bolus; Site: right antecubital; db 14:50 Follow up: IV Status: Completed infusion ap3 08:39 Drug: Ondansetron IVP 4 mg Route: IVP; Site: right antecubital; db 09:14 Follow up: Response: No adverse reaction db 08:39 Drug: morphine IVP or IV 4 mg Route: IVP; Infused Over: 4 mins; Site: right antecubital;db 09:14 Follow up: Response: No adverse reaction db 09:00 Drug: morphine IVP or IV 4 mg Route: IVP; Infused Over: 4 mins; Site: left antecubital; db 11:13 Follow up: Response: No adverse reaction; Pain is decreased ap3 09:14 Drug: HALdol (as decanoate) IM 5 mg Route: IM; Site: left deltoid; db 11:13 Follow up: Response: No adverse reaction; Nausea is decreased; Vomiting decreased ap3 Disposition Summary: 08/30/22 11:04 Hospitalization Ordered Hospitalization Status: Observation rn Provider: Zack Oliva rn Location: Telemetry/MedSurg (observation) rn Condition: Stable rn Problem: new rn Symptoms: have improved rn Bed/Room Type: Standard rn Room Assignment: 204(08/30/22 14:35) bd Diagnosis - Infectious gastroenteritis and colitis, unspecified rn - Abdominal pain, unspecified rn - Intractable pain rn - Vomiting rn Forms: - Medication Reconciliation Form rn - SBAR form rn Signatures: Dispatcher [employer] Sapna Jimenez Roman, MD MD rn Prokisch, Amanda, RN RN ap3 Yaz Leone, RN RN db Corrections: (The following items were deleted from the chart) 14:35 11:04 rn bd
--- NOTE | 2022-08-30 11:05 | ER ---
Nurse's Notes [facility] Name: Octavia Lo Age: 42 yrs Sex: Female : 1980 Arrival Date: 08/30/2022 Time: 08:18 Bed 4 Private MD: Diagnosis: Infectious gastroenteritis and colitis, unspecified;Abdominal pain, unspecified;Intractable pain;Vomiting Presentation: 08/30 08:30 Chief complaint: Patient states: she started vomiting with epigastric pain, and ap3 bilateral arm/leg tingling approx 2 hours prior to her arrival. Coronavirus screen: At this time, the client does not indicate any symptoms associated with coronavirus-19. Ebola Screen: No symptoms or risks identified at this time. Initial Sepsis Screen: Does the patient meet any 2 criteria? No. Patient's initial sepsis screen is negative. Does the patient have a suspected source of infection? Yes: Acute abdominal pain. Risk Assessment: Do you want to hurt yourself or someone else? Patient reports no desire to harm self or others. Onset of symptoms was August 30, 2022 at 06:30. 08:30 Method Of Arrival: Wheelchair ap3 08:30 Acuity: ONRU 3 ap3 Triage Assessment: 08:33 General: Appears distressed, Behavior is cooperative, anxious, crying. Pain: Complains ap3 of pain in diaphragm, xiphoid area and abdomen Pain began 2 hours ago. Also complains of nausea, vomiting. Neuro: Level of Consciousness is awake, alert, obeys commands, Oriented to person, place, time. Neuro: Reports tingling to both her bilateral arms and legs. Cardiovascular: Patient's skin is warm and dry. Respiratory: Airway is patent Respiratory effort is even, unlabored, Respiratory pattern is regular, symmetrical. GI: Reports nausea, vomiting, since 0630 this morning. 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 - Family history:: not pertinent. - Hospitalizations: : No recent hospitalization is reported. Screenin:35 Abuse screen: Denies threats or abuse. Nutritional screening: No deficits noted. ap3 Tuberculosis screening: No symptoms or risk factors identified. 14:50 [facility] ED Fall Risk Assessment (Adult) History of falling in the last 3 months, ap3 including since admission. Assessment: 09:00 Reassessment: notified physician patient states still has abdominal pain and nausea. No db vomiting. New order for morphine. See medication administration. Neuro: No deficits noted. Level of Consciousness is awake, alert, obeys commands, Oriented to person, place, time, situation. Respiratory: Airway is patent Respiratory effort is even, unlabored, Respiratory pattern is regular. GI: Abdomen is flat, non-distended, Reports nausea. 09:15 Reassessment: patient stated did not want to go to CT at this time because still has db nausea and dry heaving. Dr. Rivera notified. Haldol 5mg IM ordered see medication administration. 11:13 Reassessment: Patient and/or family updated on plan of care and expected duration. Pain ap3 level reassessed. Patient is alert, oriented x 3, equal unlabored respirations, skin warm/dry/pink. Vital Signs: 08:30 Pulse 65; Pulse Ox 100% ; Weight 83.91 kg; Height 5 ft. 5 in. ; ap3 08:38 BP 113 / 95; ap3 09:12 BP 136 / 99; Pulse 80; Pulse Ox 100% on R/A; ap3 11:13 BP 99 / 69; Pulse 79; Pulse Ox 99% on R/A; ap3 14:50 BP 116 / 88; Pulse 99; Pulse Ox 97% on R/A; ap3 08:30 Body Mass Index 30.79 (83.91 kg, 165.1 cm) ap3 ED Course: 08:20 Patient arrived in ED. am2 08:23 Zeyad Rivera MD is Attending Physician. rn 08:30 Chichi Caceres RN is Primary Nurse. ap3 08:32 Triage completed. ap3 08:35 Arm band placed on right wrist. ap3 08:35 Patient has correct armband on for positive identification. Bed in low position. Call ap3 light in reach. Side rails up X2. Adult w/ patient. laboratory monitor on. Pulse ox on. NIBP on. Door closed. Noise minimized. 08:48 US Abdomen Limited In Process Unspecified. EDMS 09:01 Inserted saline lock: 20 gauge in left antecubital area, using aseptic technique. db ,using aseptic technique. by BRICE Blood collected. 09:30 CT Abd/Pelvis - IV Contrast Only In Process Unspecified. EDMS 11:02 Zack Oliva is Hospitalizing Provider. rn 14:50 No provider procedures requiring assistance completed. Patient admitted, IV remains in ap3 place. Administered Medications: 08:38 Drug: NS 0.9% IV 1000 ml Route: IV; Rate: 1 bolus; Site: right antecubital; db 14:50 Follow up: IV Status: Completed infusion ap3 08:39 Drug: Ondansetron IVP 4 mg Route: IVP; Site: right antecubital; db 09:14 Follow up: Response: No adverse reaction db 08:39 Drug: morphine IVP or IV 4 mg Route: IVP; Infused Over: 4 mins; Site: right antecubital;db 09:14 Follow up: Response: No adverse reaction db 09:00 Drug: morphine IVP or IV 4 mg Route: IVP; Infused Over: 4 mins; Site: left antecubital; db 11:13 Follow up: Response: No adverse reaction; Pain is decreased ap3 09:14 Drug: HALdol (as decanoate) IM 5 mg Route: IM; Site: left deltoid; db 11:13 Follow up: Response: No adverse reaction; Nausea is decreased; Vomiting decreased ap3 Medication: 08:41 VIS not applicable for this client. ap3 Outcome: 11:04 Decision to Hospitalize by Provider. rn 14:50 Condition: good ap3 14:50 Instructed on the need for admit. 15:15 Admitted to Med/surg accompanied by tech, via wheelchair. ap3 15:15 Patient left the ED. ap3 Signatures: Dispatcher [employer] EDZeyad Rodriguez MD MD rn Moreno, Amanda am2 Prokisch, Amanda, RN RN ap3 Yaz Leone RN RN db
[2022-08-30 11:17] LABS: Specific Gravity 1.025 (1.005-1.030); Urine Bilirubin NEGATIVE (Negative); Urine Blood Negative (Negative); Urine Clarity Clear (Clear); Urine Color Colorless (Yellow); Urine Glucose NEGATIVE (Negative); Urine Protein NEGATIVE (Negative); Urine Urobilinogen Normal (Normal); Urine pH 8.5 (5.0-7.0)
[2022-08-30 11:19] LABS: Specific Gravity 1.025 (1.005-1.030)
[2022-08-30] MEDS ORDERED: ACETAMINOPHEN 325 MG TABLET PO PRN (13:21)
[2022-08-30] MEDS ORDERED: ONDANSETRON 4 MG/2 ML VIAL IV PRN (15:28)
--- NOTE | 2022-08-30 15:36 | P.HP ---
Certification for Inpatient Patient admitted to: Inpatient With expected LOS: >2 Midnights Patient will require the following post-hospital care: None Practitioner: I am a practitioner with admitting privileges, knowledge of patient current condition, hospital course, and medical plan of care. Services: Services provided to patient in accordance with Admission requirements found in Title 42 Section 412.3 of the Code of Federal Regulations Patient History Date of Service: 08/30/22 Reason for admission: Nausea, vomiting, abdominal pain History of Present Illness: Patient is a 42-year-old female with a past medical history significant for hypertension, anxiety disorder, pancreatitis, GERD who presents with complaint of nausea and vomiting onset this morning. Patient also reports epigastric pain rated as 10/10 and described as aching in quality. Patient reported that she had a back surgery 2 months ago and has been having intermittent episodes of tingling\weakness in bilateral upper and lower extremities. Patient reported that she informed her surgeon of the symptoms and she was assured that it would go away with time. Patient reported associated signs and symptoms of diaphoresis, chills and chest pain. Patient indicated that she had chest pain this morning and that chest pain is located in the substernal chest area. Patient rated chest pain as 7/10 in severity and described pain as tightness in quality. Patient denies any other signs and symptoms. Symptoms are aggravated or relieved by nothing. Patient decided to present to the hospital due to worsening symptoms. Allergies acetaminophen [From Percocet] Allergy (Unverified 03/15/17 16:46) Unknown codeine Allergy (Unverified 03/15/17 16:46) Unknown oxycodone [From Percocet] Allergy (Unverified 03/15/17 16:46) Unknown promethazine [From Phenergan] Allergy (Unverified 03/15/17 16:46) Unknown Re Allergy (Uncoded 03/15/17 16:46) Unknown - Past Medical/Surgical History -: Anxiety disorder -: Pancreatitis -: GERD -: Hypertension -: Obesity -: Back surgery - Family History Mother -: Diabetes, Other (see notes) (Osteoarthritis) Father -: Hypertension - Social History Smoking Status: Former smoker Alcohol use: No CD- Drugs: No Caffeine use: Yes Place of Residence: Home Review of Systems General: Chills, Sweats Eyes: Unremarkable ENT: Unremarkable Respiratory: Unremarkable Cardiovascular: Chest Pain Gastrointestinal: Nausea, Vomiting, Abdominal Pain Musculoskeletal: Unremarkable Integumentary: Unremarkable Neurological: Weakness, Other (Bilateral upper and lower extremity tingling\weakness) Lymphatics: Unremarkable Physical Examination - Vital Signs Blood Pressure: 116/88 Pulse: 99 - Physical Exam General: Alert, In no apparent distress, Oriented x3, Cooperative HEENT: Atraumatic, PERRLA, Mucous membr. moist/pink, EOMI, Sclerae nonicteric Neck: Supple, 2+ carotid pulse no bruit, No LAD, Without JVD or thyroid abnormality Respiratory: Clear to auscultation bilaterally, Normal air movement Cardiovascular: No edema, Regular rate/rhythm, Normal S1 S2 Capillary refill: <2 Seconds Gastrointestinal: Normal bowel sounds, Tenderness Musculoskeletal: No clubbing, No swelling, No tenderness Integumentary: No rashes, No breakdown, No significant lesion Neurological: Normal gait, Normal speech, Normal strength at 5/5 x4 extr, Normal tone, Normal affect Lymphatics: No axilla or inguinal lymphadenopathy - Studies Laboratory Data (last 24 hrs) 08/30/22 08:20: Triglycerides 154 H, Cholesterol 252 H, HDL Cholesterol 40, Cholesterol/HDL Ratio 6.30 08/30/22 08:20: Sodium 135 L, Potassium 3.4 L, BUN 11, Creatinine 0.65, Glucose 124 H, Total Bilirubin 0.5, AST 17, ALT 27, Alkaline Phosphatase 57, Lipase 25 08/30/22 08:20: WBC 8.00, Hgb 13.1, Hct 38.6, Plt Count 329 Assessment and Plan - Plan --Enterocolitis. CT imaging indicates Nonspecific fluid filling of distal lower abdominal small bowel loops, as well as the ascending colon, with short- segment air-fluid levels. This could relate to enterocolitis. Patient placed on antibiotics and IV hydration. Continue supportive care. -- Nausea and vomiting. Antiemetics on board. Continue IV hydration. --Chest pain. Likely atypical. Serial troponins negative so far. Echocardiogram pending to assess cardiac structures and function. Telemetry to monitor for any significant arrhythmia. -- GERD. Patient placed on Protonix. --Anxiety disorder. Ativan as needed. --Hypertension. Stable. Continue home medication. --Hyperlipidemia. Noted on lipid panel. Patient placed on statin. --Acute pain. We will manage pain with current pain medication regimen. --Class I obesity. Patient reported that she has lost about 60 pounds in 5 months due to the medication she is taking for weight loss. Patient counseled on weight reduction, diet and excise therapy. --Bilateral UE\LE tingling\Weakness. Onset after Spine surgery 2 months ago. Patient follows up with an outpatient spine MD. Continue home medication. --Hypokalemia. Replete as needed. --DVT prophylaxis with Lovenox subQ. Discharge Plan: Home Plan to discharge in: Greater than 2 days - Advance Directives Does patient have a Living Will: No Does patient have a Durable POA for Healthcare: No - Code Status/Comfort Care Code Status Assessed: Yes Physician Review: Patient Assessed, Agree with Above Assessment and Plan Critical Care: No
[2022-08-30] MEDS: HYDROCODONE/APAP 5/325 MG TAB PO PRN ×2 (15:38→22:11)
[2022-08-30] MEDS: CIPROFLOXACIN 400mg IV 400 MG/200 ML BAG IV SCH ×2 (15:38→20:30)
[2022-08-30 15:56] VITALS: BMI 30.7
[2022-08-30] MEDS: METRONIDAZOLE 500mg IVPB 500 MG/100 ML BAG IV SCH (16:37)
[2022-08-30 16:50] LABS: Magnesium 1.9 mg/dL (1.6-2.4); Phosphorus 2.7 mg/dL (2.5-4.9)
[2022-08-30 16:53] LABS: Thyroid Stimulating Hormone 4.41 uIU/mL (0.358-3.740)
[2022-08-30] MEDS ORDERED: POTASSIUM CL SA 10 MEQ TAB PO ONE ×2 (18:05→21:00)
[2022-08-30] MEDS ORDERED: SODIUM CHLORIDE 0.9% 10ML INJ IV PRN (18:14)
[2022-08-30] MEDS ORDERED: NA CHLORIDE 0.9% 1,000 ML IV SCH ×2 (19:00→21:00)
[2022-08-30] MEDS: PANTOPRAZOLE 40 MG INJ IVP SCH (20:30)
[2022-08-30] MEDS: LORazepam 2 MG/ML VIAL IV PRN (20:36)
[2022-08-30] MEDS ORDERED: ATORVASTATIN 40 MG TAB PO SCH (21:00)
[2022-08-31 00:22] VITALS: TEMP 97.8
[2022-08-31] MEDS: METRONIDAZOLE 500mg IVPB 500 MG/100 ML BAG IV SCH ×2 (01:20→08:04)
[2022-08-31 04:29] LABS: Absolute Lymphocytes (CBC) 1.3 K/uL (0.7-4.9); Hematocrit 33.2 % (36.0-45.0); Lymphocytes % 26.7 % (15.3-44.8); MPV 7.3 fL (7.6-11.3); RBC Red Blood Cell Count 3.73 M/uL (3.86-4.86)
[2022-08-31 04:51] LABS: Bilirubin Total 0.3 mg/dL (0.2-1.0); Potassium 3.3 mEq/L (3.5-5.1)
[2022-08-31] MEDS: HYDROCODONE/APAP 5/325 MG TAB PO PRN (05:37)
[2022-08-31] MEDS ORDERED: POTASSIUM CL SA 10 MEQ TAB PO ONE (06:00)
[2022-08-31] MEDS: CIPROFLOXACIN 400mg IV 400 MG/200 ML BAG IV SCH (08:04)
[2022-08-31] MEDS: PANTOPRAZOLE 40 MG INJ IVP SCH (08:04)
[2022-08-31 08:46] VITALS: BP 131/84
[2022-08-31] MEDS ORDERED: ENOXAPARIN 40 MG/0.4 ML SQ SCH (09:00)
[2022-08-31] MEDS ORDERED: ASPIRIN 81 MG CHEWABLE TABLET PO SCH (09:00)
[2022-08-31] MEDS: LORazepam 2 MG/ML VIAL IV PRN (10:10)
--- NOTE | 2022-08-31 10:10 | P.DS ---
Admission Date: 08/30/22 Discharge Date: 08/31/22 Disposition: ROUTINE DISCHARGE Discharge Condition: GOOD Reason for Admission: Nausea, vomiting, abdominal pain - Problems (1) Chest pain Status: Acute (2) Epigastric pain Status: Acute (3) Hyperlipidemia Status: Acute (4) Essential hypertension Status: Acute Brief History of Present Illness: Patient is a 42-year-old female with a past medical history significant for hypertension, anxiety disorder, pancreatitis, GERD who presented with complaint of nausea and vomiting. Patient also reported epigastric pain rated as 10/10 and described as aching in quality. Patient reported that she had a back surgery 2 months ago and has been having intermittent episodes of tingling\weakness in bilateral upper and lower extremities. Patient reported that she informed her surgeon of the symptoms and she was assured that it would go away with time. Patient reported associated signs and symptoms of diaphoresis, chills and chest pain. Patient rated chest pain as 7/10 in severity and described pain as tightn ess in quality. Patient denies any other signs and symptoms. Symptoms are aggravated or relieved by nothing. Troponin negative in the ED. EKG demonstrated nonspecific T wave changes. Patient hospitalized for further management. Hospital Course: Troponin trended negative, patient became asymptomatic. She has atypical chest pain. She had other symptoms including epigastric pain, nausea and vomiting likely related to GERD. ACS ruled out, patient is deemed stable for discharge. Her LDL is significantly elevated. Patient was started on Lipitor. Vital Signs/Physical Exam: Temp Pulse Resp BP Pulse Ox 97.8 F 85 16 131/84 98 08/31/22 08:00 08/31/22 08:00 08/31/22 08:00 08/31/22 08:00 08/31/22 08:00 General: Alert, In no apparent distress HEENT: Mucous membr. moist/pink Neck: JVD not distended Respiratory: Clear to auscultation bilaterally, Normal air movement Cardiovascular: No edema, Regular rate/rhythm, Normal S1 S2 Gastrointestinal: Soft and benign, Non-distended, No tenderness Musculoskeletal: No swelling Integumentary: No rashes Neurological: Normal strength at 5/5 x4 extr Laboratory Data at Discharge: WBC 4.80 thou/uL (4.3-10.9) 08/31/22 03:52 Hgb 11.3 g/dL (12.0-15.0) L D 08/31/22 03:52 Hct 33.2 % (36.0-45.0) L 08/31/22 03:52 Plt Count 284 thou/uL (152-406) 08/31/22 03:52 Sodium 137 mEq/L (136-145) 08/31/22 03:52 Potassium 3.3 mEq/L (3.5-5.1) L 08/31/22 03:52 BUN 6 mg/dL (7-18) L 08/31/22 03:52 Creatinine 0.55 mg/dL (0.55-1.02) 08/31/22 03:52 Glucose 96 mg/dL (74-106) 08/31/22 03:52 Phosphorus 2.7 mg/dL (2.5-4.9) 08/30/22 16:10 Magnesium 1.9 mg/dL (1.6-2.4) 08/30/22 16:10 Total Bilirubin 0.3 mg/dL (0.2-1.0) 08/31/22 03:52 AST 11 U/L (15-37) L 08/31/22 03:52 ALT 20 U/L (13-56) 08/31/22 03:52 Alkaline Phosphatase 47 U/L (45-117) 08/31/22 03:52 Triglycerides 154 mg/dL (<150) H 08/30/22 08:20 Cholesterol 252 mg/dL (<200) H 08/30/22 08:20 HDL Cholesterol 40 mg/dL (40-60) 08/30/22 08:20 Cholesterol/HDL Ratio 6.30 08/30/22 08:20 Lipase 25 U/L (13-75) 08/30/22 08:20 Home Medications: Amitriptyline [Elavil*] 20 mg PO BEDTIME 08/30/22 Fluoxetine HCl 1 tab PO DAILY 08/30/22 Levothyroxine Sodium 1 tab PO DAILY 08/30/22 Losartan/Hydrochlorothiazide [Losartan-Hctz 50-12.5 mg Tab] 1 tab PO DAILY 08/30/22 Aspirin Chewable [Aspirin Chewable*] 81 mg PO DAILY #30 tab.chew 08/31/22 Atorvastatin Calcium [Lipitor] 40 mg PO BEDTIME #30 tab 08/31/22 Ciprofloxacin HCl [Cipro 500 MG Tablet] 500 mg PO BID #10 tab 08/31/22 Pantoprazole [Protonix Tab*] 40 mg PO DAILY #30 tab 08/31/22 metroNIDAZOLE [Flagyl] 500 mg PO Q8H #15 tab 08/31/22 New Medications: Aspirin Chewable [Aspirin Chewable*] 81 mg PO DAILY #30 tab.chew Ciprofloxacin HCl [Cipro 500 MG Tablet] 500 mg PO BID #10 tab metroNIDAZOLE [Flagyl] 500 mg PO Q8H #15 tab Atorvastatin Calcium [Lipitor] 40 mg PO BEDTIME #30 tab Pantoprazole [Protonix Tab*] 40 mg PO DAILY #30 tab Followup: Naldo Olsen MD [Primary Care Provider] - Time spent managing pt's care (in minutes): 33
[2022-08-31 10:19] VITALS: O2SAT 96
--- NOTE | 2022-08-31 11:49 | EKG ---
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
== END 2022-08-31 10:34 | disposition home or self-care (01) ==
LOC: ER 08:18 → ERHOLD 13:20 → INTOOBSV 13:20 → 2ND 14:59
PROVIDERS: ADMIT Internal Medicine; ATTEND Internal Medicine
DX: K52.9 Noninfective gastroenteritis and colitis, unspecified (principal); R07.9 Chest pain, unspecified; R10.13 Epigastric pain; K21.9 Gastro-esophageal reflux disease without esophagitis; F41.9 Anxiety disorder, unspecified; I10 Essential (primary) hypertension; E78.5 Hyperlipidemia, unspecified; R52 Pain, unspecified; E66.9 Obesity, unspecified; R53.1 Weakness; R20.2 Paresthesia of skin; E87.6 Hypokalemia; Z68.30 Body mass index [BMI] 30.0-30.9, adult; Z71.3 Dietary counseling and surveillance; Z98.890 Other specified postprocedural states; Z88.6 Allergy status to analgesic agent
CPT/HCPCS: 93005; 85025 ×2; 36415 ×2; 83735; 81025; 84100; 80061; 84443; 81003; 83036; 84484 ×3; 84439; 83690; 80053 ×2; 74177; 76705; 94760; 96372; 99285; Q9967; J1630; C9113 ×2; J2405; J0744 ×3; J7030 ×2; G0378; J1650

== ENCOUNTER 2022-12-02 10:59 | Emergency (ER) | payer BC ==
--- OUTSIDE RECORDS SUMMARY | 2022-12-02 11:11 | XMS REPORT | Continuity of Care Document ---
:1980 Author Organization [facility] t Address [address] [place] [address] Care Team Providers Name Role Phone MIYA EDOUARD Primary Care Physician Unavailable ABBEY ROTHMAN Attending Clinician Unavailable MIYA EDOUARD Attending Clinician Unavailable EVA ABREU Attending Clinician Unavailable JEY PEREZ Attending Clinician Unavailable Jey Machado Attending Clinician Doctor Unassigned, [place] Attending Clinician Unavailable Miya Edouard MD Attending Clinician SARMAD PITT Attending Clinician Unavailable SARMAD PITT Attending Clinician Unavailable Sarmad Pitt MD Attending Clinician Eva Abreu MD Attending Clinician Neurology Attending Clinician Unavailable JULIANE JLOLY Attending Clinician Unavailable Juliane Jolly MD Attending Clinician RADIOLOGY Attending Clinician Unavailable Radiology Attending Clinician Unavailable Octavia Myo Attending Clinician CAROLINA MAURICE Attending Clinician Unavailable Carolina Maurice DO Attending Clinician Pob, [facility] Main Attending Clinician Unavailable Nathaly Richter PA-C Attending Clinician Only, Ang Db Test Attending Clinician Unavailable Ebrahim ASPHALT STILL OPERATOR, Rania Attending Clinician EBRAHIM, RANIA Attending Clinician Unavailable NATHALY RICHTER Attending Clinician Unavailable NIKA BERRY Attending Clinician Unavailable Nika Berry MD Attending Clinician Mono Perea MD Attending Clinician Only, Adc Test Attending Clinician Unavailable Abbey Rothman MD Attending Clinician 1, [facility] Attending Clinician Unavailable Gramm ASPHALT STILL OPERATORDiann Attending Clinician 2, [facility] Attending Clinician Unavailable Bev Ghosh MD Attending Clinician RUSSELL LAWLER Attending Clinician Unavailable Nurse, [facility] Pob Immunization Attending Clinician Unavailable Russell Lawler DO Attending Clinician Vaccine, [facility] Family Attending Clinician Unavailable Green ASPHALT STILL OPERATOR, Fern Attending Clinician FERN EVANGELISTA Attending Clinician Unavailable Provider, [facility] Attending Clinician Unavailable Mary Rodrigues Attending Clinician MARY HARLEY Attending Clinician Unavailable FESTUS MANUEL Attending Clinician Unavailable Karen Copeland Attending Clinician Ramirez Fink MD Attending Clinician GEORGE GIL Attending Clinician Unavailable Lab, [facility] Fam Pob I Attending Clinician Unavailable Jeffery ASPHALT STILL OPERATORGeorge Wells Attending Clinician Rolly MANIFOLD OPERATOR, Sherley K Attending Clinician Unavailable Rigoberto Diez MD Attending Clinician Kevin Valadez MD Attending Clinician Betito Weinberg Attending Clinician Cristi Hayes MD Attending Clinician Carmen Mott PT Attending Clinician Unavailable ABBEY ROTHMAN Admitting Clinician Unavailable MIYA EDOUARD Admitting Clinician Unavailable JULIANE JOLLY Admitting Clinician Unavailable NIKA BERRY Admitting Clinician Unavailable Nika Berry MD Admitting Clinician Abbey Rothman MD Admitting Clinician MARY HARLEY Admitting Clinician Unavailable Payers Payer Name Policy Type Policy Number Effective Date Expiration Date Lanie osborne [facility] [id number] 2017 EMPLOYEE PLAN 00:00:00 Problems Condition Condition Condition Status Onset Resolution Last Treating Co mments Source Name Details Category Date Date Treatment Clinician Date Syncope Syncope Disease Active Univers and and 6-20 ity of collapse collapse 00:00: [place] [id number] Medical Branch Knee Knee Disease Active Univers buckling, buckling, 6-20 ity of left left 00:00: [place] [facility] Moderate Moderate Disease Active Unive rs major major 6-20 ity of depression depression 00:00: [place] [facility] [place] Lumbar Lumbar Disease Active Univers radiculopa radiculopa 2-17 it y of thy, thy, 00:00: [place] chronic chronic 00 Medical Branch Primary Primary Disease Active Univers osteoarthr osteoarthr 2-17 it y of itis of itis of 00:00: [place] right knee right knee 00 Me dical Branch Bakers Bakers Disease Active 2021-04 Univers cyst, cyst, 0-13 ity of right right 00:00: [place] [facility] Chronic Chronic Disease Active Univers neck pain neck pain 9-08 ity of 00:00: [place] [facility] Prediabete Prediabete Disease Active U nivers s s 9-08 ity of 00:00: [place] [facility] Hidradenit Hidradenit Disease Active U nivers is is 8-24 ity of suppurativ suppurativ 00:00: [place] a a 00 [facility] [place] Numbness Numbness Disease Active Unive rs and and 8-24 ity of tingling tingling 00:00: [place] of right of right 00 Medica l arm and arm and Branch leg leg Pain and Pain and Disease Active Unive rs swelling swelling 8-24 ity of of knee, of knee, 00:00: [place] right right 00 Medical Branch Right Right Disease Active Univers sided sided 8-24 ity of sciatica sciatica 00:00: [place] 00 Medical Branch Chronic Chronic Disease Active Univers pain of pain of 8-24 ity of both both 00:00: [place] shoulders shoulders 00 [facility] Branch Degenerati Degenerati Disease Active U nivers ve disc ve disc 8-24 ity of disease at disease at 00:00[place] L5-S1 L5-S1 00 Medical level level Branch Arthritis, Arthritis, Disease Active U nivers multiple multiple 8-24 ity of joint joint 00:00: [place] involvemen involvemen 00 Me dical t t Branch Chronic Chronic Disease Active Univers pain of pain of 8-24 ity of both both 00:00: [place] shoulders shoulders 00 [facility] Branch Status Status Disease Active Univers post post 1-20 ity of hysterosco hysterosco 00:00: [place] py py 00 [facility] Branch S/P lumbar S/P lumbar Disease Active U nivers discectomy discectomy 1-20 it y of 00:00: [place] 00 Medical Branch Elevated Elevated Disease Active Unive rs TSH TSH 1-19 ity of 00:00: [place] 00 Medical Branch Encounter Encounter Disease Active Uni vers for weight for weight 1-19 it y of management management 00:00: [place] 00 [place] Chronic Chronic Disease Active Univers bilateral bilateral 1-19 ity of low back low back 00:00: [place] pain with pain with 00 [facility] right-side right-side Br anch d sciatica d sciatica Spondylosi Spondylosi Disease Active U nivers s of s of 1-19 ity of lumbar lumbar 00:00: [place] region region 00 Medical without without Branch myelopathy myelopathy or or radiculopa radiculopa thy thy Rectal Rectal Disease Active 2020-04 Overview: Univer s bleeding bleeding 1-11 Formattin ity of 00:00: g of this [place] 00 note Medical might be Branch different from the original. Added automatic ally from request for surgery [id number] Blood Blood Disease Active 2020-04 Univers clots in clots in 0-06 ity of stool stool 00:00: [place] 00 Medical Branch Lower Lower Disease Active 2021-1 Univers abdominal abdominal 0-06 ity of pain pain 00:00: [place] 00 Medical Branch BMI BMI Disease Active 2020-04 Univers 39.0-39.9, 39.0-39.9, 0-06 it y of adult adult 00:00: [place] 00 Medical Branch Gastroesop Gastroesop Disease Active 2019- U nivers hageal hageal 0-06 ity of reflux reflux 00:00: [place] disease disease 00 Medical without without Branch esophagiti esophagiti s s Anxiety Anxiety Disease Active 2019-04 Univers 0-06 ity of 00:00: [place] 00 Medical Branch Non-season Non-season Disease Active [...] congestion 00:00: [place] 00 [place] Asymptomat Asymptomat Disease Active U nivers ic ic 9-16 ity of hypertensi hypertensi 00:00: [place] ve urgency ve urgency 00 Me dical Branch Non Non Disease Active Univers compliance compliance 9-16 it y of w w 00:00: [place] medication medication 00 Me dical regimen regimen Branch Essential Essential Disease Active Uni vers hypertensi hypertensi 9-30 it y of on on 00:00: [place] [facility] Renal Renal Disease Active Univers stones stones 9-30 ity of 00:00: [place] 00 Medical Branch Hepatomega Hepatomega Disease Active U nivers ly ly 9-30 ity of 00:00: [place] 00 Medical Branch Allergies, Adverse Reactions, Alerts Allergy Allergy Status Severity Reaction(s) Onset Inactive Treating Comm ents Source Name Type Date Date Clinician OXYCODON DRUG Active ITCHING Univers E INGREDI 8-17 ity of 00:00: [place] 00 Medical Branch Oxycodon Propensi Active Itching Unive rs e ty to 817 ity of adverse 00:00: [place] reaction 00 Medical s Branch Codeine Propensi Active Shortness of 2017-1 U nivers ty to Breath 2 ity of adverse 00:00: [place] reaction 00 Medical s Branch Oxycodon Propensi Active Itching 2016-04 Unive rs e-Acetam ty to 2 ity of inophen adverse 00:00: [place] reaction 00 Medical s Branch Prometha Propensi Active Other - See 2016-04 convulsi o Univers zine Hcl ty to comments 2 ns ity of adverse 00:00: [place] reaction 00 Medical s Branch Metoclop Propensi Active Unknown - 2016-04 Convulsio Univers ramide ty to See comments 2 n ity of Hcl adverse 00:00: [place] reaction 00 Medical s Branch PROMETHA DRUG Active High Other-Cmnt 2016-04 Univ ers ZINE HCL INGREDI 2 ity of 00:00: [place] 00 Medical Branch METOCLOP DRUG Active High Unknown-Cmnt 2016-04 [facility] [place] RAMIDE INGREDI 2 ity of HCL 00:00: [place] [facility] CODEINE DRUG Active SOB 2016-04 Univers INGREDI 2 ity of 00:00: [place] 00 Medical Branch OXYCODON DRUG Active ITCHING 2016-04 Univers E-ACETAM 2 ity of INOPHEN 00:00: [place] 00 Medical [place] Social History Social Habit Start Date Stop Date Quantity Comments Source Gender identity [facility]it [facility] intake 2022-12-01 2022-12-01 Current University of 00:00:00 00:00:00 non-drinker of [facility] alcohol [place] (finding) Exposure to 2022-08-02 2022-08-12 Not sure [facility] SARS-CoV-2 (event) 00:00:00 11:17:00 [facility] History of Social 2022-06-03 2022-06-03 Univers ity of function 00:00:00 00:00:00 [facility] Tobacco use and 2021-12-23 2021-12-23 Smokeless Universit y of exposure 00:00:00 00:00:00 tobacco non-user [facility] Sex Assigned At [birth year] Universit y of 00:00:00 00:00:00 [facility] Smoking Status Start Date Stop Date Source Never smoked tobacco [facility] Medications Ordered Filled Start Stop Current Ordering Indication Dosage Frequency Signature Comments Components Source Medication Medication Date Date Medication? Clinician (SIG) Name Name gary 2022- No 1000mg 1,000 mg, Univers en 12-01 Oral, ity of (TYLENOL) 18:45: 18:30 ONCE, 1 [place] tablet 00 :[place] dose, On Medical 1,000 mg Judi Branch 12/01/22 at 1345, Routine LEVOTHYROXI Yes [id number] TAKE ONE Univers NE 25 mcg 8-07 (1) TABLET ity of tablet 00:00: BY MOUTH [place] 00 EVERY Medical MORNING. Branch LEVOTHYROXI Yes [id number] TAKE ONE Univers NE 25 mcg 8-07 (1) TABLET ity of tablet 00:00: BY MOUTH [place] 00 EVERY Medical MORNING. Branch LEVOTHYROXI Yes [id number] TAKE ONE Univers NE 25 mcg 8-07 (1) TABLET ity of tablet 00:00: BY MOUTH [place] 00 EVERY Medical MORNING. [place] tirzepatide Yes [id number] 5mg inject 5 Univers (MOUNJARO) 8-02 mg under ity o f 5 mg/0.5 mL 00:00: [place] Pn[place] 00 weekly. [facility] tirzepatide Yes [id number] 5mg inject 5 Univers (MOUNJARO) 8-02 mg under ity o f 5 mg/0.5 mL 00:00: [place] Pn[place] 00 weekly. [facility] tirzepatide Yes [id number] 5mg inject 5 Univers (MOUNJARO) 8-02 mg under ity o f 5 mg/0.5 mL 00:00: [place] Pn[place] 00 weekly. [facility] Branch tirzepatide Yes [id number] 5mg inject 5 Univers (MOUNJARO) 8-02 mg under ity o f 5 mg/0.5 mL 00:00: [place] Pn[place] 00 weekly. [facility] tirzepatide Yes [id number] 5mg inject 5 Univers (MOUNJARO) 8-02 mg under ity o f 5 mg/0.5 mL 00:00: [place] Pn[place] 00 weekly. Medical Branch tirzepatide 3-0 Yes [id number] 5mg inject 5 Univers (MOUNJARO) 8-02 mg under ity o f 5 mg/0.5 mL 00:00: [place] Pn[place] 00 weekly. Medical Branch tirzepatide 2022-0 Yes [id number] 5mg inject 5 Univers (MOUNJARO) 8-02 mg under ity o f 5 mg/0.5 mL 00:00: [place] Pn[place] 00 weekly. Medical Branch LEVOTHYROXI 2022-0 Yes [id number] TAKE ONE Univers NE 25 mcg 7-07 (1) TABLET ity of tablet 00:00: BY MOUTH [place] 00 EVERY Medical MORNING. Branch PANTOPRAZOL 2022-0 Yes [id number] TAKE ONE Univers E 20 mg EC 7-07 (1) ity of tablet 00:00: TABLET(S) [place] 00 BY MOUTH Medical ONCE A Branch DAY. LEVOTHYROXI 3-0 Yes [id number] TAKE ONE Univers NE 25 mcg 7-07 (1) TABLET ity of tablet 00:00: BY MOUTH [place] 00 EVERY Medical MORNING. Branch PANTOPRAZOL 2022-0 Yes [id number] TAKE ONE Univers E 20 mg EC 7-07 (1) ity of tablet 00:00: TABLET(S) [place] 00 BY MOUTH Medical ONCE A Branch DAY. LEVOTHYROXI 3-0 Yes [id number] TAKE ONE Univers NE 25 mcg 7-07 (1) TABLET ity of tablet 00:00: BY MOUTH [place] 00 EVERY Medical MORNING. Branch PANTOPRAZOL 3-0 Yes [id number] TAKE ONE Univers E 20 mg EC 7-07 (1) ity of tablet 00:00: TABLET(S) [place] 00 BY MOUTH Medical ONCE A Branch DAY. LEVOTHYROXI 3-0 Yes [id number] TAKE ONE Univers NE 25 mcg 7-07 (1) TABLET ity of tablet 00:00: BY MOUTH [place] 00 EVERY Medical MORNING. Branch PANTOPRAZOL 2023-0 Yes [id number] TAKE ONE Univers E 20 mg EC 7-07 (1) ity of tablet 00:00: TABLET(S) [place] 00 BY MOUTH Medical ONCE A Branch DAY. LEVOTHYROXI 2023-0 Yes [id number] TAKE ONE Univers NE 25 mcg 7-07 (1) TABLET ity of tablet 00:00: BY MOUTH [place] 00 EVERY Medical MORNING. Branch PANTOPRAZOL 3-0 Yes [id number] TAKE ONE Univers E 20 mg EC 7-07 (1) ity of tablet 00:00: TABLET(S) [place] 00 BY MOUTH Medical ONCE A Branch DAY. LEVOTHYROXI 2023-0 Yes [id number] TAKE ONE Univers NE 25 mcg 7-07 (1) TABLET ity of tablet 00:00: BY MOUTH [place] 00 EVERY Medical MORNING. Branch PANTOPRAZOL 2023-0 Yes [id number] TAKE ONE Univers E 20 mg EC 7-07 (1) ity of tablet 00:00: TABLET(S) [place] 00 BY MOUTH Medical ONCE A Branch DAY. LEVOTHYROXI 2023-0 Yes [id number] TAKE ONE Univers NE 25 mcg 7-07 (1) TABLET ity of tablet 00:00: BY MOUTH [place] 00 EVERY Medical MORNING. Branch PANTOPRAZOL 3-0 Yes [id number] TAKE ONE Univers E 20 mg EC 7-07 (1) ity of tablet 00:00: TABLET(S) [place] 00 BY MOUTH Medical ONCE A Branch DAY. LEVOTHYROXI 2023-0 Yes [id number] TAKE ONE Univers NE 25 mcg 7-07 (1) TABLET ity of tablet 00:00: BY MOUTH [place] 00 EVERY Medical MORNING. Branch PANTOPRAZOL 3-0 Yes [id number] TAKE ONE Univers E 20 mg EC 7-07 (1) ity of tablet 00:00: TABLET(S) [place] 00 BY MOUTH Medical ONCE A Branch DAY. PANTOPRAZOL 2023-0 Yes [id number] TAKE ONE Univers E 20 mg EC 7-07 (1) ity of tablet 00:00: TABLET(S) [place] 00 BY MOUTH Medical ONCE A Branch DAY. PANTOPRAZOL 2023-0 Yes [id number] TAKE ONE Univers E 20 mg EC 7-07 (1) ity of tablet 00:00: TABLET(S) [place] 00 BY MOUTH Medical ONCE A Branch DAY. PANTOPRAZOL 2023-0 Yes [id number] TAKE ONE Univers E 20 mg EC 7-07 (1) ity of tablet 00:00: TABLET(S) [place] 00 BY MOUTH Medical ONCE A Branch DAY. LEVOTHYROXI 2023-0 2023- No [id number] TAKE ONE Univers NE 25 mcg 7- 08-07 (1) TABLET ity of tablet 00:00: 00:00 BY MOUTH [place] 00 :00 EVERY Medical MORNING. Branch losartan 50 2022-0 Yes [id number] 50mg Take 1 Univers mg tablet 6-29 tablet by ity o f 00:00: mouth in [place] 00 the Medical morning. Branch metoprolol 2022-0 Yes [id number] 25mg Take 1 Univers succinate 6-29 tablet by ity o f XL 25 mg 24 00:00: mouth in [place] hr tablet 00 the Medical morning. Branch losartan 50 2022-0 Yes [id number] 50mg Take 1 Univers mg tablet 6-29 tablet by ity o f 00:00: mouth in [place] 00 the Medical morning. Branch metoprolol 2022-0 Yes [id number] 25mg Take 1 Univers succinate 6-29 tablet by ity o f XL 25 mg 24 00:00: mouth in [place] hr tablet 00 the Medical morning. Branch losartan 50 2022-0 Yes [id number] 50mg Take 1 Univers mg tablet 6-29 tablet by ity o f 00:00: mouth in [place] 00 the Medical morning. Branch metoprolol 2022-0 Yes [id number] 25mg Take 1 Univers succinate 6-29 tablet by ity o f XL 25 mg 24 00:00: mouth in [place] hr tablet 00 the Medical morning. Branch losartan 50 2022-0 Yes [id number] 50mg Take 1 Univers mg tablet 6-29 tablet by ity o f 00:00: mouth in [place] 00 the Medical morning. Branch metoprolol 3-0 Yes [id number] 25mg Take 1 Univers succinate 6-29 tablet by ity o f XL 25 mg 24 00:00: mouth in [place] hr tablet 00 the Medical morning. Branch losartan 50 2022-0 Yes [id number] 50mg Take 1 Univers mg tablet 6-29 tablet by ity o f 00:00: mouth in [place] 00 the Medical morning. Branch metoprolol 3-0 Yes [id number] 25mg Take 1 Univers succinate 6-29 tablet by ity o f XL 25 mg 24 00:00: mouth in [place] hr tablet 00 the Medical morning. Branch losartan 50 2022-0 Yes [id number] 50mg Take 1 Univers mg tablet 6-29 tablet by ity o f 00:00: mouth in [place] 00 the Medical morning. Branch metoprolol 3-0 Yes [id number] 25mg Take 1 Univers succinate 6-29 tablet by ity o f XL 25 mg 24 00:00: mouth in [place] hr tablet 00 the Medical morning. Branch losartan 50 2022-0 Yes [id number] 50mg Take 1 Univers mg tablet 6-29 tablet by ity o f 00:00: mouth in [place] 00 the Medical morning. Branch metoprolol 3-0 Yes [id number] 25mg Take 1 Univers succinate 6-29 tablet by ity o f XL 25 mg 24 00:00: mouth in [place] hr tablet 00 the Medical morning. Branch losartan 50 3-0 Yes [id number] 50mg Take 1 Univers mg tablet 6-29 tablet by ity o f 00:00: mouth in [place] 00 the Medical morning. Branch metoprolol 3-0 Yes [id number] 25mg Take 1 Univers succinate 6-29 tablet by ity o f XL 25 mg 24 00:00: mouth in [place] hr tablet 00 the Medical morning. Branch losartan 50 2022-0 Yes [id number] 50mg Take 1 Univers mg tablet 6-29 tablet by ity o f 00:00: mouth in [place] 00 the Medical morning. Branch metoprolol 3-0 Yes [id number] 25mg Take 1 Univers succinate 6-29 tablet by ity o f XL 25 mg 24 00:00: mouth in [place] hr tablet 00 the Medical morning. Branch losartan 50 2022-0 Yes [id number] 50mg Take 1 Univers mg tablet 6-29 tablet by ity o f 00:00: mouth in [place] 00 the Medical morning. Branch metoprolol 3-0 Yes [id number] 25mg Take 1 Univers succinate 6-29 tablet by ity o f XL 25 mg 24 00:00: mouth in [place] hr tablet 00 the Medical morning. Branch losartan 50 3-0 Yes [id number] 50mg Take 1 Univers mg tablet 6-29 tablet by ity o f 00:00: mouth in [place] 00 the Medical morning. Branch metoprolol 3-0 Yes [id number] 25mg Take 1 Univers succinate 6-29 tablet by ity o f XL 25 mg 24 00:00: mouth in [place] hr tablet 00 the Medical morning. Branch losartan 50 2022-0 Yes [id number] 50mg Take 1 Univers mg tablet 6-29 tablet by ity o f 00:00: mouth in [place] 00 the morning. [place] metoprolol 2022-0 Yes [id number] 25mg Take 1 Univers succinate 6-29 tablet by ity o f XL 25 mg 24 00:00: mouth in [place] hr tablet 00 the morning. [place] losartan 50 2022-0 Yes [id number] 50mg Take 1 Univers mg tablet 6-29 tablet by ity o f 00:00: mouth in [place] 00 the morning. [place] metoprolol 2022-0 Yes [id number] 25mg Take 1 Univers succinate 6-29 tablet by ity o f XL 25 mg 24 00:00: mouth in [place] hr tablet 00 the Medical morning. [place] gadoteridol 202- No [id number] .2mL/kg 0.2 mL/kg, Univers (PROHANCE-2 10-12 Intravenou i ty of 0 mL) 21:15: 21:14 s, ONCE, 1 [place] injection 00 :00 dose, On Medica l 0.2 mL/kg [facility] 10/12/22 at 1615, Routine FLUOXETINE 2022-0 Yes [id number] TAKE ONE U nivers 20 mg 6-23 (1) ity of capsule 00:00: [place](S) [place] 00 BY MOUTH Medical IN THE [place] MORNING. FLUOXETINE 0 Yes [id number] TAKE ONE U nivers 20 mg 6-23 (1) ity of capsule 00:00: [place]SU[place](S) [place] 00 BY MOUTH Medical IN THE [place] MORNING. FLUOXETINE 2022-0 Yes [id number] TAKE ONE U nivers 20 mg 6-23 (1) ity of capsule 00:00: [place]SULE(S) [place] 00 BY MOUTH Medical IN THE [place] MORNING. FLUOXETINE 2022-0 Yes [id number] TAKE ONE U nivers 20 mg 6-23 (1) ity of capsule 00:00: [place]SULE(S) [place] 00 BY MOUTH Medical IN THE [place] MORNING. FLUOXETINE 2022-0 Yes [id number] TAKE ONE U nivers 20 mg 6-23 (1) ity of capsule 00:00: [place]SULE(S) [place] 00 BY MOUTH Medical IN THE [place] MORNING. FLUOXETINE 2022-0 Yes [id number] TAKE ONE U nivers 20 mg 6-23 (1) ity of capsule 00:00: [place]SULE(S) [place] 00 BY MOUTH Medical IN THE [place] MORNING. FLUOXETINE 2022-0 Yes [id number] TAKE ONE U nivers 20 mg 6-23 (1) ity of capsule 00:00: CAPSULE(S) [place] 00 BY MOUTH Medical IN THE [place] MORNING. FLUOXETINE 2022-0 Yes [id number] TAKE ONE U nivers 20 mg 6-23 (1) ity of capsule 00:00: CAPSULE(S) [place] 00 BY MOUTH Medical IN THE [place] MORNING. FLUOXETINE 0 Yes [id number] TAKE ONE U nivers 20 mg 6-23 (1) ity of capsule 00:00: CAPSULE(S) [place] 00 BY MOUTH Medical IN THE [place] MORNING. FLUOXETINE 0 Yes [id number] TAKE ONE U nivers 20 mg 6-23 (1) ity of capsule 00:00: CAPSULE(S) [place] 00 BY MOUTH Medical IN THE [place] MORNING. FLUOXETINE 0 Yes [id number] TAKE ONE U nivers 20 mg 6-23 (1) ity of capsule 00:00: CAPSULE(S) [place] 00 BY MOUTH Medical IN THE [place] MORNING. FLUOXETINE 0 Yes [id number] TAKE ONE U nivers 20 mg 6-23 (1) ity of capsule 00:00: CAPSULE(S) [place] 00 BY MOUTH Medical IN THE [place] MORNING. FLUOXETINE 0 Yes [id number] TAKE ONE U nivers 20 mg 6-23 (1) ity of capsule 00:00: CAPSULE(S) [place] 00 BY MOUTH Medical IN THE [place] MORNING. FLUOXETINE 0 Yes [id number] TAKE ONE U nivers 20 mg 6-23 (1) ity of capsule 00:00: CAPSULE(S) [place] 00 BY MOUTH Medical IN THE [place] MORNING. FLUOXETINE 0 Yes [id number] TAKE ONE U nivers 20 mg 6-23 (1) ity of capsule 00:00: CAPSULE(S) [place] 00 BY MOUTH Medical IN THE [place] MORNING. ketorolac 0 2022- No [id number] 60mg Univers (TORADOL) 6-20 10-04 [id number] ity of injection 22:30: 22:02 [place] 60 mg 00 :00 Medical Branch cloNIDine 2022- No [id number] .2mg [place] (CATAPRES) 10-04 ity of tablet 0.2 22:30: 22:00 [place] mg 00 :40 [facility] Branch ketorolac 2022- No [id number] 60mg 60 mg, Univers (TORADOL) 10-04 [id number] Intramuscu i ty of injection 22:30: 22:02 [place], ONCE, [place] 60 mg 00 :00 1 dose, On [facility] 10/04/22 at 1730, Routine ketorolac 2022- No [id number] 60mg Univers (TORADOL) 10-04 [id number] ity of injection 22:30: 22:02 [place] 60 mg 00 :00 [facility] Branch cloNIDine 2022- No [id number] .2mg [place] (CATAPRES) 10-04 ity of tablet 0.2 22:30: 22:00 [place] mg 00 :40 [facility] Branch ketorolac 2022- No [id number] 60mg 60 mg, Univers (TORADOL) 10-04 [id number] Intramuscu i ty of injection 22:30: 22:02 [place], ONCE, [place] 60 mg 00 :00 1 dose, On [facility] 10/04/22 at 1730, Routine losartan-hy Yes [id number] 1{tbl} Take 1 Univers drochloroth 6-20 tablet by ity of iazide 00:00: mouth in [place] 50-12.5 mg 00 the Medical per tablet morning. Branc h DULoxetine Yes [id number] 20mg Take 1 Univers 20 mg 6-20 [id number] capsule by ity of capsule 00:00: mouth in [place] 00 the Medical morning Branch and 1 capsule in the evening. tiZANidine Yes [id number] 2mg Take 1 Univers 2 mg tablet 6-20 tablet by ity of 00:00: mouth [place] 00 every 8 Medical (eight) Branch hours as needed (muscle spasms). tirzepatide 0 Yes [id number] 5mg inject 5 Univers (MOUNJARO) 6-20 mg under ity o f 5 mg/0.5 mL 00:00: [place] Pn[place] 00 weekly. [facility] Branch losartan-hy 2022-0 Yes [id number] 1{tbl} Take 1 Univers drochloroth 6-20 tablet by ity of iazide 00:00: mouth in [place] 50-12.5 mg 00 the Medical per tablet morning. [facility] DULoxetine 2022-0 Yes [id number] 20mg Take 1 Univers 20 mg 6-20 [id number] capsule by ity of capsule 00:00: mouth in [place] 00 the Medical morning Branch and 1 capsule in the evening. tiZANidine 2022-0 Yes [id number] 2mg Take 1 Univers 2 mg tablet 6-20 tablet by ity of 00:00: mouth [place] 00 every 8 Medical (eight) Branch hours as needed (muscle spasms). tirzepatide 2022-0 Yes [id number] 5mg inject 5 Univers (MOUNJARO) 6-20 mg under ity o f 5 mg/0.5 mL 00:00: [place] Pn[place] 00 weekly. [facility] Branch losartan-hy 2022-0 Yes [id number] 1{tbl} Take 1 Univers drochloroth 6-20 tablet by ity of iazide 00:00: mouth in [place] 50-12.5 mg 00 the Medical per tablet morning. [facility] DULoxetine 2022-0 Yes [id number] 20mg Take 1 [facility] 20 mg 6-20 [id number] capsule by ity of capsule 00:00: mouth in [place] 00 the Medical morning Branch and 1 capsule in the evening. tiZANidine 2022-0 Yes [id number] 2mg Take 1 [facility] 2 mg tablet 6-20 tablet by ity of 00:00: mouth [place] 00 every 8 Medical (eight) Branch hours as needed (muscle spasms). tirzepatide 2022-0 Yes [id number] 5mg inject 5 [facility] (MOUNJARO) 6-20 mg under ity o f 5 mg/0.5 mL 00:00: the skin [place] PnIj 00 weekly. [facility] Branch losartan-hy 0 Yes [id number] 1{tbl} Take 1 [facility] drochloroth 6-20 tablet by ity of iazide 00:00: mouth in [place] 50-12.5 mg 00 the Medical per tablet morning. Branc h DULoxetine 2022-0 Yes [id number] 20mg Take 1 [facility] 20 mg 6-20 [id number] capsule by ity of capsule 00:00: mouth in [place] 00 the Medical morning Branch and 1 capsule in the evening. tiZANidine 2022-0 Yes [id number] 2mg Take 1 [facility] 2 mg tablet 6-20 tablet by ity of 00:00: mouth [place] 00 every 8 Medical (eight) Branch hours as needed (muscle spasms). tirzepatide 2022-0 Yes [id number] 5mg inject 5 [facility] (MOUNJARO) 6-20 mg under ity o f 5 mg/0.5 mL 00:00: [place] skin [place] PnIj 00 weekly. Medical Branch losartan-hy 2022-0 Yes [id number] 1{tbl} Take 1 [facility] drochloroth 6-20 tablet by ity of iazide 00:00: mouth in [place] 50-12.5 mg 00 the Medical per tablet morning. [facility] DULoxetine 2022-0 Yes [id number] 20mg Take 1 [facility] 20 mg 6-20 [id number] capsule by ity of capsule 00:00: mouth in [place] 00 the Medical morning Branch and 1 capsule in the evening. tiZANidine 2022-0 Yes [id number] 2mg Take 1 [facility] 2 mg tablet 6-20 tablet by ity of 00:00: mouth [place] 00 every 8 Medical (eight) Branch hours as needed (muscle spasms). tirzepatide 2022-0 Yes [id number] 5mg inject 5 [facility] (MOUNJARO) 6-20 mg under ity o f 5 mg/0.5 mL 00:00: [place] skin [place] PnIj 00 weekly. Medical Branch DULoxetine 2022-0 Yes [id number] 20mg Take 1 [facility] 20 mg 6-20 [id number] capsule by ity of capsule 00:00: mouth in [place] 00 the Medical morning Branch and 1 capsule in the evening. tiZANidine 2022-0 Yes [id number] 2mg Take 1 [facility] 2 mg tablet 6-20 tablet by ity of 00:00: mouth [place] 00 every 8 Medical (eight) Branch hours as needed (muscle spasms). tirzepatide 2022-0 Yes [id number] 5mg inject 5 [facility] (MOUNJARO) 6-20 mg under ity o f 5 mg/0.5 mL 00:00: the skin [place] PnIj 00 weekly. Medical Branch DULoxetine 2022-0 Yes [id number] 20mg Take 1 [facility] 20 mg 6-20 [id number] capsule by ity of capsule 00:00: mouth in [place] 00 the Medical morning Branch and 1 capsule in the evening. tiZANidine 2022-0 Yes [id number] 2mg Take 1 [facility] 2 mg tablet 6-20 tablet by ity of 00:00: mouth [place] 00 every 8 Medical (eight) Branch hours as needed (muscle spasms). tirzepatide 2022-0 Yes [id number] 5mg inject 5 [facility] (MOUNJARO) 6-20 mg under ity o f 5 mg/0.5 mL 00:00: the skin [place] PnIj 00 weekly. Medical Branch DULoxetine 2022-0 Yes [id number] 20mg Take 1 [facility] 20 mg 6-20 [id number] capsule by ity of capsule 00:00: mouth in [place] 00 the Medical morning Branch and 1 capsule in the evening. tiZANidine 2022-0 Yes [id number] 2mg Take 1 [facility] 2 mg tablet 6-20 tablet by ity of 00:00: mouth [place] 00 every 8 Medical (eight) Branch hours as needed (muscle spasms). tirzepatide 2022-0 Yes [id number] 5mg inject 5 [facility] (MOUNJARO) 6-20 mg under ity o f 5 mg/0.5 mL 00:00: the skin [place] PnIj 00 weekly. Medical Branch DULoxetine 2022-0 Yes [id number] 20mg Take 1 [facility] 20 mg 6-20 [id number] capsule by ity of capsule 00:00: mouth in [place] 00 the Medical morning Branch and 1 capsule in the evening. tiZANidine 2022-0 Yes [id number] 2mg Take 1 [facility] 2 mg tablet 6-20 tablet by ity of 00:00: mouth [place] 00 every 8 Medical (eight) Branch hours as needed (muscle spasms). tirzepatide 2022-0 Yes [id number] 5mg inject 5 [facility] (MOUNJARO) 6-20 mg under ity o f 5 mg/0.5 mL 00:00: the skin [place] PnIj 00 weekly. Medical Branch DULoxetine 2023-0 Yes [id number] 20mg Take 1 [facility] 20 mg 6-20 [id number] capsule by ity of capsule 00:00: mouth in [place] 00 the Medical morning Branch and 1 capsule in the evening. tiZANidine 3-0 Yes [id number] 2mg Take 1 [facility] 2 mg tablet 6-20 tablet by ity of 00:00: mouth [place] 00 every 8 Medical (eight) Branch hours as needed (muscle spasms). tirzepatide 3-0 Yes [id number] 5mg inject 5 Univers (MOUNJARO) 6-20 mg under ity o f 5 mg/0.5 mL 00:00: the skin [place] PnIj 00 weekly. Medical Branch DULoxetine 2022-0 Yes [id number] 20mg Take 1 [facility] 20 mg 6-20 [id number] capsule by ity of capsule 00:00: mouth in [place] 00 the Medical morning Branch and 1 capsule in the evening. tiZANidine 3-0 Yes [id number] 2mg Take 1 [facility] 2 mg tablet 6-20 tablet by ity of 00:00: mouth [place] 00 every 8 Medical (eight) Branch hours as needed (muscle spasms). DULoxetine 2022-0 Yes [id number] 20mg Take 1 [facility] 20 mg 6-20 [id number] capsule by ity of capsule 00:00: mouth in [place] 00 the Medical morning Branch and 1 capsule in the evening. tiZANidine 2022-0 Yes [id number] 2mg Take 1 [facility] 2 mg tablet 6-20 tablet by ity of 00:00: mouth [place] 00 every 8 Medical (eight) Branch hours as needed (muscle spasms). DULoxetine 3-0 Yes [id number] 20mg Take 1 [facility] 20 mg 6-20 [id number] capsule by ity of capsule 00:00: mouth in [place] 00 the Medical morning Branch and 1 capsule in the evening. tiZANidine 2023-0 Yes [id number] 2mg Take 1 [facility] 2 mg tablet 6-20 tablet by ity of 00:00: mouth [place] 00 every 8 Medical (eight) Branch hours as needed (muscle spasms). DULoxetine 2023-0 Yes [id number] 20mg Take 1 [facility] 20 mg 6-20 [id number] capsule by ity of capsule 00:00: mouth in [place] 00 the Medical morning Branch and 1 capsule in the evening. tiZANidine 3-0 Yes [id number] 2mg Take 1 [facility] 2 mg tablet 6-20 tablet by ity of 00:00: mouth [place] 00 every 8 Medical (eight) Branch hours as needed (muscle spasms). DULoxetine 2023-0 Yes [id number] 20mg Take 1 [facility] 20 mg 6-20 [id number] capsule by ity of capsule 00:00: mouth in [place] 00 the Medical morning Branch and 1 capsule in the evening. tiZANidine 2023-0 Yes [id number] 2mg Take 1 [facility] 2 mg tablet 6-20 tablet by ity of 00:00: mouth [place] 00 every 8 Medical (eight) Branch hours as needed (muscle spasms). DULoxetine 3-0 Yes [id number] 20mg Take 1 [facility] 20 mg 6-20 [id number] capsule by ity of capsule 00:00: mouth in [place] 00 the Medical morning Branch and 1 capsule in the evening. tiZANidine 3-0 Yes [id number] 2mg Take 1 [facility] 2 mg tablet 6-20 tablet by ity of 00:00: mouth [place] 00 every 8 Medical (eight) Branch hours as needed (muscle spasms). DULoxetine 3-0 Yes [id number] 20mg Take 1 [facility] 20 mg 6-20 [id number] capsule by ity of capsule 00:00: mouth in [place] 00 the Medical morning Branch and 1 capsule in the evening. tiZANidine 3-0 Yes [id number] 2mg Take 1 [facility] 2 mg tablet 6-20 tablet by ity of 00:00: mouth [place] 00 every 8 Medical (eight) Branch hours as needed (muscle spasms). DULoxetine 3-0 Yes [id number] 20mg Take 1 [facility] 20 mg 6-20 [id number] capsule by ity of capsule 00:00: mouth in [place] 00 the Medical morning Branch and 1 capsule in the evening. tiZANidine 3-0 Yes [id number] 2mg Take 1 [facility] 2 mg tablet 6-20 tablet by ity of 00:00: mouth [place] [address] every 8 Medical (eight) Branch hours as needed (muscle spasms). tirzepatide 2022-0 2023- No [id number] 5mg inject 5 [facility] (MOUNJARO) 6-20 07-28 mg under ity of 5 mg/0.5 mL 00:00: 00:00 the skin [place] PnIj 00 :00 weekly. Medical Branch tirzepatide 2022- No [id number] 5mg inject 5 Univers (MOUNJARO) 10-04 07-28 mg under ity of 5 mg/0.5 mL 00:00: 00:00 [place] Pn[place]j 00 :00 weekly. [facility] Branch losartan-hy 2022-2022- No [id number] 1{tbl} Take 1 [facility] drochloroth 6-29 tablet by it y of iazide 00:00: 00:00 mouth in [place] 50-12.5 mg 00 :00 the Medical per tablet morning. [facility] losartan-hy 2022- No [id number] 1{tbl} Take 1 Univers drochloroth 610-13 tablet by it y of iazide 00:00: 00:00 mouth in [place] 50-12.5 mg 00 :00 the Medical per tablet morning. [facility] iopamidol 2022- No [id number] 80mL 80 mL, Univers (ISOVUE 09-28 Intravenou ity o f 370-500 mL) 20:15: 20:15 s, ONCE, 1 [place] injection 00 :00 dose, On Medica l 80 mL [facility] 09/28/22 at 1515, Routine NaCl 0.9% No 1000mL at 999 Uni vers (NS) bolus 09-28 mL/hr, ity of infusion 19:15: 21:35 1,000 mL, [place] 1,000 mL 00 :00 IV Medical Infusion, Branch ONCE, 1 dose, On Mon09/28/22 at 1415, JACQUI ondansetron 2022- No 4mg 4 mg, Slow Univers (ZOFRAN 09-28 IV Push, ity of (PF)) 18:30: 19:03 ONCE, 1 [place] injection 4 00 :00 dose, On Medi lonny mg [facility] 09/28/22 at 1330, JACQUI morpHINE (4 2022- No 4mg 4 mg, Slow Univers mg/mL) 09-28 IV Push, ity of injection 4 18:30: 19:03 ONCE, 1 [place] mg 00 :00 dose, On [facility] 09/28/22 at 1330, STAT FLUOXETINE Yes [id number] TAKE ONE [facility] 20 mg 6-07 (1) ity of capsule 00:00[place] M[place] IN [facility] MORNING. FLUOXETINE 2022-0 Yes [id number] TAKE ONE [facility] 20 mg 6-07 (1) ity of capsule 00:00: [place] [facility] MORNING. FLUOXETINE 0 Yes [id number] TAKE ONE [facility] 20 mg 6-07 (1) ity of capsule 00:00: [place] [facility] MORNING. FLUOXETINE 0 Yes [id number] TAKE ONE [facility] 20 mg 6-07 (1) ity of capsule 00:00: [place] M[place] IN [facility] MORNING. FLUOXETINE 2022- 2023- No [id number] TAKE ONE [facility] 20 mg 6-07 06-20 (1) ity of capsule 00:00: 00:00 CAPSULE BY [place] 00 :00 MOUTH IN [facility] MORNING. FLUOXETINE 2023- No [id number] TAKE ONE [facility] 20 mg 6-07 06-20 (1) ity of capsule 00:00: 00:00 CAPSULE BY [place] 00 :00 MOUTH IN [facility] MORNING. MELOXICAM Yes [id number] TAKE ONE Univers 7.5 mg 6-05 103 (1) TABLET ity of tablet 00:00: BY MOUTH [place] 00 IN THE Medical MORNING. [place] LEVOTHYROXI 2022- Yes [id number] TAKE ONE Univers NE 25 mcg 6-05 (1) TABLET ity of tablet 00:00: BY MOUTH [place] 00 EVERY Medical MORNING. [place] MELOXICAM Yes [id number] TAKE ONE [facility] 7.5 mg 6-05 103 (1) TABLET ity of tablet 00:00: BY MOUTH [place] 00 IN THE Medical MORNING. [place] MELOXICAM Yes [id number] TAKE ONE [facility] 7.5 mg 6-05 103 (1) TABLET ity of tablet 00:00: BY MOUTH [place] 00 IN THE Medical MORNING. [place] LEVOTHYROXI Yes [id number] TAKE ONE [facility] NE 25 mcg 6-05 (1) TABLET ity of tablet 00:00: BY MOUTH [place] 00 EVERY Medical MORNING. Branch MELOXICAM 2023-0 Yes [id number] TAKE ONE [facility] 7.5 mg 6-05 103 (1) TABLET ity of tablet 00:00: BY MOUTH [place] 00 IN THE Medical MORNING. Branch LEVOTHYROXI 3-0 Yes [id number] TAKE ONE [facility] NE 25 mcg 6-05 (1) TABLET ity of tablet 00:00: BY MOUTH [place] 00 EVERY Medical MORNING. Branch MELOXICAM 2023-0 Yes [id number] TAKE ONE [facility] 7.5 mg 6-05 103 (1) TABLET ity of tablet 00:00: BY MOUTH [place] 00 IN THE Medical MORNING. Branch LEVOTHYROXI 3-0 Yes [id number] TAKE ONE [facility] NE 25 mcg 6-05 (1) TABLET ity of tablet 00:00: BY MOUTH [place] 00 EVERY Medical MORNING. Branch MELOXICAM 3-0 Yes [id number] TAKE ONE Univers 7.5 mg 6-05 103 (1) TABLET ity of tablet 00:00: BY MOUTH [place] 00 IN THE Medical MORNING. Branch LEVOTHYROXI 3-0 Yes [id number] TAKE ONE [facility] NE 25 mcg 6-05 (1) TABLET ity of tablet 00:00: BY MOUTH [place] 00 EVERY Medical MORNING. Branch MELOXICAM 3-0 Yes [id number] TAKE ONE Univers 7.5 mg 6-05 103 (1) TABLET ity of tablet 00:00: BY MOUTH [place] 00 IN THE Medical MORNING. Branch LEVOTHYROXI 3-0 Yes [id number] TAKE ONE [facility] NE 25 mcg 6-05 (1) TABLET ity of tablet 00:00: BY MOUTH [place] 00 EVERY Medical MORNING. Branch MELOXICAM 3-0 Yes [id number] TAKE ONE Univers 7.5 mg 6-05 103 (1) TABLET ity of tablet 00:00: BY MOUTH [place] 00 IN THE Medical MORNING. Branch LEVOTHYROXI 3-0 Yes [id number] TAKE ONE [facility] NE 25 mcg 6-05 (1) TABLET ity of tablet 00:00: BY MOUTH [place] 00 EVERY Medical MORNING. Branch MELOXICAM 2023-0 Yes [id number] TAKE ONE Univers 7.5 mg 6-05 103 (1) TABLET ity of tablet 00:00: BY MOUTH [place] 00 IN THE Medical MORNING. Branch LEVOTHYROXI 2023-0 Yes [id number] TAKE ONE [facility] NE 25 mcg 6-05 (1) TABLET ity of tablet 00:00: BY MOUTH [place] 00 EVERY Medical MORNING. Branch MELOXICAM 2022-0 Yes [id number] TAKE ONE [facility] 7.5 mg 6-05 103 (1) TABLET ity of tablet 00:00: BY MOUTH [place] 00 IN THE Medical MORNING. Branch LEVOTHYROXI 3-0 Yes [id number] TAKE ONE [facility] NE 25 mcg 6-05 (1) TABLET ity of tablet 00:00: BY MOUTH [place] 00 EVERY Medical MORNING. Branch MELOXICAM 3-0 Yes [id number] TAKE ONE [facility] 7.5 mg 6-05 103 (1) TABLET ity of tablet 00:00: BY MOUTH [place] 00 IN THE Medical MORNING. Branch LEVOTHYROXI 3-0 Yes [id number] TAKE ONE [facility] NE 25 mcg 6-05 (1) TABLET ity of tablet 00:00: BY MOUTH [place] 00 EVERY Medical MORNING. Branch MELOXICAM 2022-0 Yes [id number] TAKE ONE [facility] 7.5 mg 6-05 103 (1) TABLET ity of tablet 00:00: BY MOUTH [place] 00 IN THE Medical MORNING. Branch LEVOTHYROXI 3-0 Yes [id number] TAKE ONE [facility] NE 25 mcg 6-05 (1) TABLET ity of tablet 00:00: BY MOUTH [place] 00 EVERY Medical MORNING. Branch MELOXICAM 2022-0 Yes [id number] TAKE ONE [facility] 7.5 mg 6-05 103 (1) TABLET ity of tablet 00:00: BY MOUTH [place] 00 IN THE Medical MORNING. Branch MELOXICAM 3-0 Yes [id number] TAKE ONE [facility] 7.5 mg 6-05 103 (1) TABLET ity of tablet 00:00: BY MOUTH [place] 00 IN THE Medical MORNING. Branch MELOXICAM 3-0 Yes [id number] TAKE ONE [facility] 7.5 mg 6-05 103 (1) TABLET ity of tablet 00:00: BY MOUTH [place] 00 IN THE Medical MORNING. Branch MELOXICAM 2022-0 Yes [id number] TAKE ONE [facility] 7.5 mg 6-05 103 (1) TABLET ity of tablet 00:00: BY MOUTH [place] 00 IN THE Medical MORNING. Branch MELOXICAM 3-0 Yes [id number] TAKE ONE [facility] 7.5 mg 6-05 103 (1) TABLET ity of tablet 00:00: BY MOUTH [place] 00 IN THE Medical MORNING. [place] MELOXICAM 2022-0 Yes [id number] TAKE ONE [facility] 7.5 mg 6-05 103 (1) TABLET ity of tablet 00:00: BY MOUTH [place] 00 IN THE Medical MORNING. [place] MELOXICAM 2022-0 Yes [id number] TAKE ONE [facility] 7.5 mg 6-05 103 (1) TABLET ity of tablet 00:00: BY MOUTH [place] 00 IN THE Medical MORNING. [place] MELOXICAM 0 Yes [id number] TAKE ONE [facility] 7.5 mg 6-05 103 (1) TABLET ity of tablet 00:00: BY MOUTH [place] 00 IN THE Medical MORNING. [place] MELOXICAM 0 Yes [id number] TAKE ONE Univers 7.5 mg 6-05 103 (1) TABLET ity of tablet 00:00: BY MOUTH [place] 00 IN THE Medical MORNING. [place] MELOXICAM 0 Yes [id number] TAKE ONE Univers 7.5 mg 6-05 103 (1) TABLET ity of tablet 00:00: BY MOUTH [place] 00 IN THE Medical MORNING. [place] MELOXICAM 0 Yes [id number] TAKE ONE Univers 7.5 mg 6-05 103 (1) TABLET ity of tablet 00:00: BY MOUTH [place] 00 IN THE Medical MORNING. [place] LEVOTHYROXI 2022- No [id number] TAKE ONE [facility] NE 25 mcg 6-05 07-07 (1) TABLET ity of tablet 00:00: 00:00 BY MOUTH [place] 00 :00 EVERY Medical MORNING. [place] FLUOXETINE 0 Yes [id number] TAKE ONE [facility] 20 mg 5-10 (1) ity of capsule 00:00: [facility] THE [place] MORNING. MOUNJARO 5 0 Yes [id number] INJECT Univers mg/0.5 mL 5-10 FIVE (5) ity of PnIj 00:00: MG INTO [place] 00 SKIN ONCE Medical WEEKLY. [place] FLUOXETINE Yes [id number] TAKE ONE [facility] 20 mg 5-10 (1) ity of capsule 00:00: CAPSULE [place] M[place] IN [facility] THE [place] MORNING. MOUNJARO 5 0 Yes [id number] INJECT Univers mg/0.5 mL 5-10 FIVE (5) ity of PnIj 00:00: MG INTO [place] 00 SKIN ONCE Medical WEEKLY. [place] FLUOXETINE 0 Yes [id number] TAKE ONE [facility] 20 mg 5-10 (1) ity of capsule 00:00: CAP[place]LE [place] M[place] IN [facility] MORNING. MOUNJARO 5 2022- Yes [id number] INJECT Univers mg/0.5 mL 5-10 FIVE (5) ity of PnIj 00:00: MG INTO [place] 00 SKIN ONCE Medical WEEKLY. [place] FLUOXETINE 0 Yes [id number] TAKE ONE [facility] 20 mg 5-10 (1) ity of capsule 00:00: CAP[place]LE [place] M[place] IN [facility] MORNING. MOUNJARO 5 Yes [id number] INJECT Univers mg/0.5 mL 5-10 FIVE (5) ity of PnIj 00:00: MG INTO [place] 00 SKIN ONCE Medical WEEKLY. [place] FLUOXETINE Yes [id number] TAKE ONE [facility] 20 mg 5-10 (1) ity of capsule 00:00: CAP[place]LE [place] M[place]TH IN [facility] MORNING. MOUNJARO 5 Yes [id number] INJECT Univers mg/0.5 mL 5-10 FIVE (5) ity of PnIj 00:00: MG INTO [place] [address] SKIN ONCE Medical WEEKLY. [place] FLUOXETINE Yes [id number] TAKE ONE [facility] 20 mg 5-10 (1) ity of capsule 00:00: CAP[place]LE [place] MOUTH IN [facility] MORNING. MOUNJARO 5 Yes [id number] INJECT Univers mg/0.5 mL 5-10 FIVE (5) ity of PnIj 00:00: MG INTO [place] 00 SKIN ONCE Medical WEEKLY. [place] MOUNJARO 5 Yes [id number] INJECT Univers mg/0.5 mL 5-10 FIVE (5) ity of PnIj 00:00: MG INTO [place] 00 SKIN ONCE Medical WEEKLY. [place] MOUNJARO 5 0 Yes [id number] INJECT Univers mg/0.5 mL 5-10 FIVE (5) ity of PnIj 00:00: MG INTO [place] 00 SKIN ONCE Medical WEEKLY. [place] MOUNJARO 5 Yes [id number] INJECT Univers mg/0.5 mL 5-10 FIVE (5) ity of PnIj 00:00: MG INTO [place] 00 SKIN ONCE Medical WEEKLY. [place] NATALYAUNRO 5 2022-0 Yes [id number] INJECT Univers mg/0.5 mL 5-10 FIVE (5) ity of PnIj 00:00: MG INTO [place] 00 SKIN ONCE Medical WEEKLY. [place] MOUNJARO 5 2022-0 3- No [id number] INJECT Univers mg/0.5 mL 5-10 06-20 FIVE (5) ity o f PnIj 00:00: 00:00 MG INTO [place] 00 :00 SKIN ONCE Medical WEEKLY. [place] NATALYAUNRO 5 2022-2022- No [id number] INJECT Univers mg/0.5 mL 5-10 -20 FIVE (5) ity o f PnIj 00:00: 00:00 MG INTO [place] 00 :00 SKIN ONCE Medical WEEKLY. [place] FLUOXETINE 2022-0 2022- No [id number] TAKE ONE Univers 20 mg -10 -07 (1) ity of capsule 00:00: 00:00 CAPSULE BY [place] 00 :00 MOUTH IN Medical THE Branch MORNING. PANTOPRAZOL 2022-0 Yes [id number] TAKE ONE Univers E 20 mg EC 5-03 (1) ity of tablet 00:00: TABLET(S) [place] BY MOUTH Medical ONCE A Branch DAY. LEVOTHYROXI 2022-0 Yes [id number] TAKE ONE Univers NE 25 mcg 5-03 (1) TABLET ity of tablet 00:00: BY MOUTH [place] EVERY Medical MORNING. [place] PANTOPRAZOL 2022-0 Yes [id number] TAKE ONE Univers E 20 mg EC 5-03 (1) ity of tablet 00:00: TABLET(S) [place] 00 BY MOUTH Medical ONCE A Branch DAY. LEVOTHYROXI 2022-0 Yes [id number] TAKE ONE [facility] NE 25 mcg 5-03 (1) TABLET ity of tablet 00:00: BY MOUTH [place] EVERY Medical MORNING. [place] PANTOPRAZOL 2022-0 Yes [id number] TAKE ONE Univers E 20 mg EC 5-03 (1) ity of tablet 00:00: TABLET(S) [place] 00 BY MOUTH Medical ONCE A Branch DAY. LEVOTHYROXI 2022-0 Yes [id number] TAKE ONE [facility] NE 25 mcg 5-03 (1) TABLET ity of tablet 00:00: BY MOUTH [place] 00 EVERY Medical MORNING. Branch PANTOPRAZOL 2023-0 Yes [id number] TAKE ONE Univers E 20 mg EC 5-03 (1) ity of tablet 00:00: TABLET(S) [place] 00 BY MOUTH Medical ONCE A Branch DAY. LEVOTHYROXI 2023-0 Yes [id number] TAKE ONE [facility] NE 25 mcg 5-03 (1) TABLET ity of tablet 00:00: BY MOUTH [place] 00 EVERY Medical MORNING. Branch PANTOPRAZOL 2023-0 Yes [id number] TAKE ONE Univers E 20 mg EC 5-03 (1) ity of tablet 00:00: TABLET(S) [place] 00 BY MOUTH Medical ONCE A Branch DAY. LEVOTHYROXI 2023-0 Yes [id number] TAKE ONE [facility] NE 25 mcg 5-03 (1) TABLET ity of tablet 00:00: BY MOUTH [place] 00 EVERY Medical MORNING. Branch PANTOPRAZOL 2023-0 Yes [id number] TAKE ONE Univers E 20 mg EC 5-03 (1) ity of tablet 00:00: TABLET(S) [place] 00 BY MOUTH Medical ONCE A Branch DAY. LEVOTHYROXI 2023-0 Yes [id number] TAKE ONE [facility] NE 25 mcg 5-03 (1) TABLET ity of tablet 00:00: BY MOUTH [place] 00 EVERY Medical MORNING. Branch PANTOPRAZOL 2023-0 Yes [id number] TAKE ONE Univers E 20 mg EC 5-03 (1) ity of tablet 00:00: TABLET(S) [place] 00 BY MOUTH Medical ONCE A Branch DAY. PANTOPRAZOL 2023-0 Yes [id number] TAKE ONE Univers E 20 mg EC 5-03 (1) ity of tablet 00:00: TABLET(S) [place] 00 BY MOUTH Medical ONCE A Branch DAY. PANTOPRAZOL 2023-0 Yes [id number] TAKE ONE Univers E 20 mg EC 5-03 (1) ity of tablet 00:00: TABLET(S) [place] 00 BY MOUTH Medical ONCE A Branch DAY. PANTOPRAZOL 2023-0 Yes [id number] TAKE ONE Univers E 20 mg EC 5-03 (1) ity of tablet 00:00: TABLET(S) [place] 00 BY MOUTH Medical ONCE A Branch DAY. PANTOPRAZOL 2023-0 Yes [id number] TAKE ONE Univers E 20 mg EC 5-03 (1) ity of tablet 00:00: TABLET(S) [place] 00 BY MOUTH Medical ONCE A Branch DAY. PANTOPRAZOL 2023-0 Yes [id number] TAKE ONE Univers E 20 mg EC 5-03 (1) ity of tablet 00:00: TABLET(S) [place] 00 BY MOUTH Medical ONCE A Branch DAY. PANTOPRAZOL 2023-0 Yes [id number] TAKE ONE Univers E 20 mg EC 5-03 (1) ity of tablet 00:00: TABLET(S) [place] 00 BY MOUTH Medical ONCE A Branch DAY. PANTOPRAZOL 2023-0 Yes [id number] TAKE ONE Univers E 20 mg EC 5-03 (1) ity of tablet 00:00: TABLET(S) [place] 00 BY MOUTH Medical ONCE A Branch DAY. PANTOPRAZOL 2023-0 Yes [id number] TAKE ONE Univers E 20 mg EC 5-03 (1) ity of tablet 00:00: TABLET(S) [place] 00 BY MOUTH Medical ONCE A Branch DAY. PANTOPRAZOL 2023-0 Yes [id number] TAKE ONE Univers E 20 mg EC 5-03 (1) ity of tablet 00:00: TABLET(S) [place] 00 BY MOUTH Medical ONCE A Branch DAY. PANTOPRAZOL 2023-0 Yes [id number] TAKE ONE Univers E 20 mg EC 5-03 (1) ity of tablet 00:00: TABLET(S) [place] 00 BY MOUTH Medical ONCE A Branch DAY. PANTOPRAZOL 2023-0 Yes [id number] TAKE ONE Univers E 20 mg EC 5-03 (1) ity of tablet 00:00: TABLET(S) [place] 00 BY MOUTH Medical ONCE A Branch DAY. PANTOPRAZOL 2023-0 2023- No [id number] TAKE ONE Univers E 20 mg EC 5-03 - (1) ity of tablet 00:00: 00:00 TABLET(S) [place] 00 :00 BY MOUTH Medical ONCE A Branch DAY. LEVOTHYROXI 2023-0 3- No [id number] TAKE ONE Univers NE 25 mcg -09-19 (1) TABLET ity of tablet 00:00: 00:00 BY MOUTH [place] 00 :00 EVERY Medical MORNING. Branch LEVOTHYROXI 2023-0 2022- No [id number] TAKE ONE Univers NE 25 mcg -09-19 (1) TABLET ity of tablet 00:00: 00:00 BY MOUTH [place] 00 :00 EVERY Medical MORNING. Branch LEVOTHYROXI 2022-0 Yes [id number] TAKE ONE Univers NE 25 mcg 4-06 (1) TABLET ity of tablet 00:00: BY MOUTH [place] 00 EVERY Medical MORNING. Branch LEVOTHYROXI 2022-0 2022- No [id number] TAKE ONE Univers NE 25 mcg 4-06 05-03 (1) TABLET ity of tablet 00:00: 00:00 BY MOUTH [place] 00 :00 EVERY Medical MORNING. Branch MOUNJARO 5 2022-0 Yes [id number] INJECT Univers mg/0.5 mL 3-23 FIVE (5) ity of PnIj 00:00: MG [place] 00 [facility] WEEKLY. MOUNJARO 5 2022-0 Yes [id number] INJECT Univers mg/0.5 mL 3-23 FIVE (5) ity of PnIj 00:00: MG [place] 00 [facility] WEEKLY. MOUNJARO 5 2022-0 Yes [id number] INJECT Univers mg/0.5 mL 3-23 FIVE (5) ity of PnIj 00:00: MG [place] 00 [facility] WEEKLY. MOUNJARO 5 2022-0 2022- No [id number] INJECT Univers mg/0.5 mL 3-23 05-10 FIVE (5) ity o f PnIj 00:00: 00:00 MG [place] 00 :00 [facility] WEEKLY. LEVOTHYROXI 2022-0 Yes [id number] TAKE ONE Univers NE 25 mcg 3-09 (1) TABLET ity of tablet 00:00: BY MOUTH [place] 00 EVERY Medical MORNING. Branch LEVOTHYROXI 2022-0 Yes [id number] TAKE ONE [facility] NE 25 mcg 3-09 (1) TABLET ity of tablet 00:00: BY MOUTH [place] 00 EVERY Medical MORNING. Branch LEVOTHYROXI 2022-0 Yes [id number] TAKE ONE [facility] NE 25 mcg 3-09 (1) TABLET ity of tablet 00:00: BY MOUTH [place] 00 EVERY Medical MORNING. Branch LEVOTHYROXI 2022-0 3- No [id number] TAKE ONE Univers NE 25 mcg 3-09 04-06 (1) TABLET ity of tablet 00:00: 00:00 BY MOUTH [place] 00 :00 EVERY Medical MORNING. Branch MOUNJARO 5 2022-0 Yes [id number] INJECT [facility] mg/0.5 mL 2-27 FIVE (5) ity of PnIj 00:00: MG [place] 00 [facility] WEEKLY. MOUNJARO 5 2022-0 Yes [id number] INJECT [facility] mg/0.5 mL 2-27 FIVE (5) ity of PnIj 00:00: MG 00 [facility] WEEKLY. MOUNJARO 5 2022-0 Yes [id number] INJECT [facility] mg/0.5 mL 2-27 FIVE (5) ity of PnIj 00:00: MG 00 [facility] WEEKLY. MOUNJARO 5 2022-0 2022- No [id number] INJECT [facility] mg/0.5 mL 2-27 03-23 FIVE (5) ity o f PnIj 00:00: 00:00 MG [place] 00 :00 [facility] WEEKLY. PANTOPRAZOL 2023-0 Yes [id number] TAKE ONE [facility] E 20 mg EC 2-23 (1) ity of tablet 00:00: TABLET(S) 00 BY [facility] ONCE A Branch DAY. PANTOPRAZOL 3-0 Yes [id number] TAKE ONE [facility] E 20 mg EC 2-23 (1) ity of tablet 00:00: TABLET(S) 00 BY [facility] ONCE A Branch DAY. PANTOPRAZOL 2023-0 Yes [id number] TAKE ONE [facility] E 20 mg EC 2-23 (1) ity of tablet 00:00: TABLET(S) [place] 00 BY [facility] ONCE A Branch DAY. PANTOPRAZOL 2023-0 Yes [id number] TAKE ONE [facility] E 20 mg EC 2-23 (1) ity of tablet 00:00: TABLET(S) [place] 00 BY [facility] Medical ONCE A Branch DAY. PANTOPRAZOL 2023-0 Yes [id number] TAKE ONE [facility] E 20 mg EC 2-23 (1) ity of tablet 00:00: TABLET(S) [place] 00 BY [facility] ONCE A Branch DAY. PANTOPRAZOL 2023-0 Yes [id number] TAKE ONE [facility] E 20 mg EC 2-23 (1) ity of tablet 00:00: TABLET(S) [place] 00 BY MOUTH Medical ONCE A Branch DAY. PANTOPRAZOL 0 2022- No [id number] TAKE ONE [facility] E 20 mg EC 06-09 (1) ity of tablet 00:00: 00:00 TABLET(S) [place] 00 :00 BY MOUTH Medical ONCE A Branch DAY. losartan-hy 2022-0 Yes [id number] 1{tbl} Take 1 [facility] drochloroth 2-17 tablet by ity of iazide 00:00: mouth in [place] 50-12.5 mg 00 the Medical per tablet morning. [facility] losartan-hy 2022-0 Yes [id number] 1{tbl} Take 1 [facility] drochloroth 2-17 tablet by ity of iazide 00:00: mouth in [place] 50-12.5 mg 00 the Medical per tablet morning. [facility] losartan-hy 2022-0 Yes [id number] 1{tbl} Take 1 [facility] drochloroth 2-17 tablet by ity of iazide 00:00: mouth in [place] 50-12.5 mg 00 the Medical per tablet morning. [facility] losartan-hy 2022-0 Yes [id number] 1{tbl} Take 1 [facility] drochloroth 2-17 tablet by ity of iazide 00:00: mouth in [place] 50-12.5 mg 00 the Medical per tablet morning. [facility] losartan-hy 2022-0 Yes [id number] 1{tbl} Take 1 [facility] drochloroth 2-17 tablet by ity of iazide 00:00: mouth in [place] 50-12.5 mg 00 the Medical per tablet morning. [facility] losartan-hy 2022-0 Yes [id number] 1{tbl} Take 1 [facility] drochloroth 2-17 tablet by ity of iazide 00:00: mouth in [place] 50-12.5 mg 00 the Medical per tablet morning. [facility] losartan-hy 2022-0 Yes [id number] 1{tbl} Take 1 [facility] drochloroth 2-17 tablet by ity of iazide 00:00: mouth in [place] 50-12.5 mg 00 the Medical per tablet morning. [facility] losartan-hy 2022-0 Yes [id number] 1{tbl} Take 1 [facility] drochloroth 2-17 tablet by ity of iazide 00:00: mouth in [place] 50-12.5 mg 00 the Medical per tablet morning. [facility] losartan-hy 2023-0 Yes [id number] 1{tbl} Take 1 [facility] drochloroth 2-17 tablet by ity of iazide 00:00: mouth in [place] 50-12.5 mg 00 the Medical per tablet morning. [facility] losartan-hy 2023-0 Yes [id number] 1{tbl} Take 1 [facility] drochloroth 2-17 tablet by ity of iazide 00:00: mouth in [place] 50-12.5 mg 00 the Medical per tablet morning. [facility] losartan-hy 3-0 Yes [id number] 1{tbl} Take 1 [facility] drochloroth 2-17 tablet by ity of iazide 00:00: mouth in [place] 50-12.5 mg 00 the Medical per tablet morning. [facility] losartan-hy 3-0 Yes [id number] 1{tbl} Take 1 [facility] drochloroth 2-17 tablet by ity of iazide 00:00: mouth in [place] 50-12.5 mg 00 the Medical per tablet morning. [facility] losartan-hy 2022-0 Yes [id number] 1{tbl} Take 1 [facility] drochloroth 2-17 tablet by ity of iazide 00:00: mouth in [place] 50-12.5 mg 00 the Medical per tablet morning. [facility] losartan-hy 3-0 Yes [id number] 1{tbl} Take 1 [facility] drochloroth 2-17 tablet by ity of iazide 00:00: mouth in [place] 50-12.5 mg 00 the Medical per tablet morning. [facility] losartan-hy 3-0 Yes [id number] 1{tbl} Take 1 [facility] drochloroth 2-17 tablet by ity of iazide 00:00: mouth in [place] 50-12.5 mg 00 the Medical per tablet morning. [facility] losartan-hy 2023-0 Yes [id number] 1{tbl} Take 1 [facility] drochloroth 2-17 tablet by ity of iazide 00:00: mouth in [place] 50-12.5 mg 00 the Medical per tablet morning. [facility] losartan-hy 2023-0 Yes [id number] 1{tbl} Take 1 [facility] drochloroth 2-17 tablet by ity of iazide 00:00: mouth in [place] 50-12.5 mg 00 the Medical per tablet morning. [facility] losartan-hy 2023-0 Yes [id number] 1{tbl} Take 1 [facility] drochloroth 2-17 tablet by ity of iazide 00:00: mouth in [place] 50-12.5 mg 00 the Medical per tablet morning. [facility] losartan-hy 2023-0 Yes [id number] 1{tbl} Take 1 [facility] drochloroth 2-17 tablet by ity of iazide 00:00: mouth in [place] 50-12.5 mg 00 the Medical per tablet morning. [facility] losartan-hy 3-0 Yes [id number] 1{tbl} Take 1 [facility] drochloroth 2-17 tablet by ity of iazide 00:00: mouth in [place] 50-12.5 mg 00 the Medical per tablet morning. [facility] losartan-hy 3-0 Yes [id number] 1{tbl} Take 1 [facility] drochloroth 2-17 tablet by ity of iazide 00:00: mouth in [place] 50-12.5 mg 00 the Medical per tablet morning. [facility] losartan-hy 2022-0 3- No [id number] 1{tbl} Take 1 [facility] drochloroth 2-17 06-20 tablet by it y of iazide 00:00: 00:00 mouth in [place] 50-12.5 mg 00 :00 the Medical per tablet morning. [facility] losartan-hy 2023-0 2023- No [id number] 1{tbl} Take 1 [facility] drochloroth 2-17 06-20 tablet by it y of iazide 00:00: 00:00 mouth in [place] 50-12.5 mg 00 :00 the Medical per tablet morning. [facility] LOSARTAN-HY 3-0 Yes [id number] TAKE ONE Univers DROCHLOROTH 2-13 (1) ity of IAZIDE 00:00: TABLET(S) [place] 50-12.5 mg 00 BY MOUTH Medic al per tablet ONCE A Branch DAY. LOSARTAN-HY 2023-0 2023- No [id number] TAKE ONE Univers DROCHLOROTH 2-13 02-17 (1) ity of IAZIDE 00:00: 00:00 TABLET(S) [place] 50-12.5 mg 00 :00 BY MOUTH Medic al per tablet ONCE A Branch DAY. LOSARTAN-HY 2023-0 2023- No [id number] TAKE ONE Univers DROCHLOROTH 2-13 06-03 (1) ity of IAZIDE 00:00: 00:00 TABLET(S) [place] 50-12.5 mg 00 :00 BY MOUTH Medic al per tablet ONCE A DAY. tirzepatide Yes [id number] 5mg inject 5 Univers (MOUNJARO) 1-26 mg under ity o f 5 mg/0.5 mL 00:00: the skin [place] PnIj 00 weekly. [facility] tirzepatide Yes [id number] 5mg inject 5 Univers (MOUNJARO) 1-26 mg under ity o f 5 mg/0.5 mL 00:00: the skin [place] Pn[place]j 00 weekly. [facility] tirzepatide Yes [id number] 5mg inject 5 Univers (MOUNJARO) 1-26 mg under ity o f 5 mg/0.5 mL 00:00: the skin [place] Pn[place]j 00 weekly. [facility] tirzepatide Yes [id number] 5mg inject 5 Univers (MOUNJARO) 1-26 mg under ity o f 5 mg/0.5 mL 00:00: the skin [place] Pn[place]j 00 weekly. [facility] tirzepatide Yes [id number] 5mg inject 5 Univers (MOUNJARO) 1-26 mg under ity o f 5 mg/0.5 mL 00:00: the skin [place] Pn[place]j 00 weekly. [facility] tirzepatide Yes [id number] 5mg inject 5 Univers (MOUNJARO) 1-26 mg under ity o f 5 mg/0.5 mL 00:00: the skin [place] Pn[place]j 00 weekly. [facility] tirzepatide Yes [id number] 5mg inject 5 Univers (MOUNJARO) 1-26 mg under ity o f 5 mg/0.5 mL 00:00: the skin [place] Pn[place]j 00 weekly. [facility] tirzepatide Yes [id number] 5mg inject 5 Univers (MOUNJARO) 1-26 mg under ity o f 5 mg/0.5 mL 00:00: the skin [place] Pn[place]j 00 weekly. Medical Branch tirzepatide 2022- No [id number] 5mg inject 5 [facility] (MOUNJARO) 1-26 02-27 mg under ity of 5 mg/0.5 mL 00:00: 00:00 the skin [place] PnIj 00 :00 weekly. Medical Branch PANTOPRAZOL 2021-04 Yes [id number] TAKE ONE [facility] E 20 mg EC 2-28 (1) ity of tablet 00:00: TABLET(S) [place] 00 BY MOUTH Medical ONCE A Branch DAY. PANTOPRAZOL 2021-04 Yes [id number] TAKE ONE [facility] E 20 mg EC 2-28 (1) ity of tablet 00:00: TABLET(S) [place] 00 BY MOUTH Medical ONCE A Branch DAY. PANTOPRAZOL 2021-04 Yes [id number] TAKE ONE [facility] E 20 mg EC 2-28 (1) ity of tablet 00:00: TABLET(S) [place] 00 BY MOUTH Medical ONCE A Branch DAY. PANTOPRAZOL 2021-04 Yes [id number] TAKE ONE [facility] E 20 mg EC 2-28 (1) ity of tablet 00:00: TABLET(S) [place] 00 BY MOUTH Medical ONCE A Branch DAY. PANTOPRAZOL 2021-04 Yes [id number] TAKE ONE [facility] E 20 mg EC 2-28 (1) ity of tablet 00:00: TABLET(S) [place] 00 BY MOUTH Medical ONCE A Branch DAY. PANTOPRAZOL 2021-04 Yes [id number] TAKE ONE [facility] E 20 mg EC 2-28 (1) ity of tablet 00:00: TABLET(S) [place] 00 BY MOUTH Medical ONCE A Branch DAY. PANTOPRAZOL 2021-04 Yes [id number] TAKE ONE [facility] E 20 mg EC 2-28 (1) ity of tablet 00:00: TABLET(S) [place] 00 BY MOUTH Medical ONCE A Branch DAY. PANTOPRAZOL 2021-04 Yes [id number] TAKE ONE [facility] E 20 mg EC 2-28 (1) ity of tablet 00:00: TABLET(S) [place] 00 BY MOUTH Medical ONCE A Branch DAY. PANTOPRAZOL 2021-04- No [id number] TAKE ONE [facility] E 20 mg EC 2-28 02-23 (1) ity of tablet 00:00: 00:00 TABLET(S) [place] 00 :00 BY MOUTH Medical ONCE A Branch DAY. LOSARTAN-HY 2021-04 Yes [id number] TAKE ONE Univers DROCHLOROTH 2-14 (1) ity of IAZIDE 00:00: TABLET(S) [place] 50-12.5 mg 00 BY MOUTH Medic al per tablet ONCE A Branch DAY. LOSARTAN-HY 2021-04 Yes [id number] TAKE ONE Univers DROCHLOROTH 2-14 (1) ity of IAZIDE 00:00: TABLET(S) [place] 50-12.5 mg 00 BY MOUTH Medic al per tablet ONCE A Branch DAY. LOSARTAN-HY 2021-04 Yes [id number] TAKE ONE Univers DROCHLOROTH 2-14 (1) ity of IAZIDE 00:00: TABLET(S) [place] 50-12.5 mg 00 BY MOUTH Medic al per tablet ONCE A Branch DAY. LOSARTAN-HY 2021-04 Yes [id number] TAKE ONE Univers DROCHLOROTH 2-14 (1) ity of IAZIDE 00:00: TABLET(S) [place] 50-12.5 mg 00 BY MOUTH Medic al per tablet ONCE A Branch DAY. LOSARTAN-HY 2021-04- No [id number] TAKE ONE [facility] DROCHLOROTH 2-14 02-13 (1) ity of IAZIDE 00:00: 00:00 TABLET(S) [place] 50-12.5 mg 00 :00 BY MOUTH Medic al per tablet ONCE A Branch DAY. ondansetron 2021-04 No 4mg 4 mg, Slow Univers (ZOFRAN 0-20 10-20 IV Push, ity of (PF)) 13:45: 13:42 ONCE, 1 [place] injection 4 00 :00 dose, On Medi lonny mg Judi Branch 02/03/22 at 0845, JACQUI ondansetron 2021-04 Yes [id number] 4mg Take 1 U nivers 4 mg 0-20 tablet by ity of disintegrat 00:00: mouth [place] ing tablet 00 every 8 Medica l (eight) Branch hours as needed for Nausea and Vomiting (N/V). ondansetron 2021-04 Yes [id number] 4mg Take 1 U nivers 4 mg 0-20 tablet by ity of disintegrat 00:00: mouth [place] ing tablet 00 every 8 Medica l (eight) Branch hours as needed for Nausea and Vomiting (N/V). ondansetron 2021-04 Yes [id number] 4mg Take 1 U nivers 4 mg 0-20 tablet by ity of disintegrat 00:00: mouth [place] ing tablet 00 every 8 Medica l (eight) Branch hours as needed for Nausea and Vomiting (N/V). ondansetron 2021-04 Yes [id number] 4mg Take 1 U nivers 4 mg 0-20 tablet by ity of disintegrat 00:00: mouth [place] ing tablet 00 every 8 Medica l (eight) Branch hours as needed for Nausea and Vomiting (N/V). ondansetron 2021-04 Yes [id number] 4mg Take 1 U nivers 4 mg 0-20 tablet by ity of disintegrat 00:00: mouth [place] ing tablet 00 every 8 Medica l (eight) Branch hours as needed for Nausea and Vomiting (N/V). ondansetron 2021-04 Yes [id number] 4mg Take 1 U nivers 4 mg 0-20 tablet by ity of disintegrat 00:00: mouth [place] ing tablet 00 every 8 Medica l (eight) Branch hours as needed for Nausea and Vomiting (N/V). ondansetron 2021-04 Yes [id number] 4mg Take 1 U nivers 4 mg 0-20 tablet by ity of disintegrat 00:00: mouth [place] ing tablet 00 every 8 Medica l (eight) Branch hours as needed for Nausea and Vomiting (N/V). ondansetron 2021-04 Yes [id number] 4mg Take 1 U nivers 4 mg 0-20 tablet by ity of disintegrat 00:00: mouth [place] ing tablet 00 every 8 Medica l (eight) Branch hours as needed for Nausea and Vomiting (N/V). ondansetron 2021-04 Yes [id number] 4mg Take 1 U nivers 4 mg 0-20 tablet by ity of disintegrat 00:00: mouth [place] ing tablet 00 every 8 Medica l (eight) Branch hours as needed for Nausea and Vomiting (N/V). ondansetron 2021-04 Yes [id number] 4mg Take 1 U nivers 4 mg 0-20 tablet by ity of disintegrat 00:00: mouth [place] ing tablet 00 every 8 Medica l (eight) Branch hours as needed for Nausea and Vomiting (N/V). ondansetron 2021-04 Yes [id number] 4mg Take 1 U nivers 4 mg 0-20 tablet by ity of disintegrat 00:00: mouth [place] ing tablet 00 every 8 Medica l (eight) Branch hours as needed for Nausea and Vomiting (N/V). ondansetron 2021-04 Yes [id number] 4mg Take 1 U nivers 4 mg 0-20 tablet by ity of disintegrat 00:00: mouth [place] ing tablet 00 every 8 Medica l (eight) Branch hours as needed for Nausea and Vomiting (N/V). ondansetron 2021-04 Yes [id number] 4mg Take 1 U nivers 4 mg 0-20 tablet by ity of disintegrat 00:00: mouth [place] ing tablet 00 every 8 Medica l (eight) Branch hours as needed for Nausea and Vomiting (N/V). ondansetron 2021-04 Yes [id number] 4mg Take 1 U nivers 4 mg 0-20 tablet by ity of disintegrat 00:00: mouth [place] ing tablet 00 every 8 Medica l (eight) Branch hours as needed for Nausea and Vomiting (N/V). ondansetron 2021-04 Yes [id number] 4mg Take 1 U nivers 4 mg 0-20 tablet by ity of disintegrat 00:00: mouth [place] ing tablet 00 every 8 Medica l (eight) Branch hours as needed for Nausea and Vomiting (N/V). ondansetron 2021-04 Yes [id number] 4mg Take 1 U nivers 4 mg 0-20 tablet by ity of disintegrat 00:00: mouth [place] ing tablet 00 every 8 Medica l (eight) Branch hours as needed for Nausea and Vomiting (N/V). ondansetron 2021-04 Yes [id number] 4mg Take 1 U nivers 4 mg 0-20 tablet by ity of disintegrat 00:00: mouth [place] ing tablet 00 every 8 Medica l (eight) Branch hours as needed for Nausea and Vomiting (N/V). ondansetron 2021-04 Yes [id number] 4mg Take 1 U nivers 4 mg 0-20 tablet by ity of disintegrat 00:00: mouth [place] ing tablet 00 every 8 Medica l (eight) Branch hours as needed for Nausea and Vomiting (N/V). ondansetron 2021-04 Yes [id number] 4mg Take 1 U nivers 4 mg 0-20 tablet by ity of disintegrat 00:00: mouth [place] ing tablet 00 every 8 Medica l (eight) Branch hours as needed for Nausea and Vomiting (N/V). ondansetron 2021-04 Yes [id number] 4mg Take 1 U nivers 4 mg 0-20 tablet by ity of disintegrat 00:00: mouth [place] ing tablet 00 every 8 Medica l (eight) Branch hours as needed for Nausea and Vomiting (N/V). ondansetron 2021-04 Yes [id number] 4mg Take 1 U nivers 4 mg 0-20 tablet by ity of disintegrat 00:00: mouth [place] ing tablet 00 every 8 Medica l (eight) Branch hours as needed for Nausea and Vomiting (N/V). ondansetron 2021-04 Yes [id number] 4mg Take 1 U nivers 4 mg 0-20 tablet by ity of disintegrat 00:00: mouth [place] ing tablet 00 every 8 Medica l (eight) Branch hours as needed for Nausea and Vomiting (N/V). ondansetron 2021-04 Yes [id number] 4mg Take 1 U nivers 4 mg 0-20 tablet by ity of disintegrat 00:00: mouth [place] ing tablet 00 every 8 Medica l (eight) Branch hours as needed for Nausea and Vomiting (N/V). ondansetron 2021-04 Yes [id number] 4mg Take 1 U nivers 4 mg 0-20 tablet by ity of disintegrat 00:00: mouth [place] ing tablet 00 every 8 Medica l (eight) Branch hours as needed for Nausea and Vomiting (N/V). ondansetron 2021-04 Yes [id number] 4mg Take 1 U nivers 4 mg 0-20 tablet by ity of disintegrat 00:00: mouth [place] ing tablet 00 every 8 Medica l (eight) Branch hours as needed for Nausea and Vomiting (N/V). ondansetron 2021-04 Yes [id number] 4mg Take 1 U nivers 4 mg 0-20 tablet by ity of disintegrat 00:00: mouth [place] ing tablet 00 every 8 Medica l (eight) Branch hours as needed for Nausea and Vomiting (N/V). ondansetron 2021-04 Yes [id number] 4mg Take 1 U nivers 4 mg 0-20 tablet by ity of disintegrat 00:00: mouth [place] ing tablet 00 every 8 Medica l (eight) Branch hours as needed for Nausea and Vomiting (N/V). ondansetron 2021-04 Yes [id number] 4mg Take 1 U nivers 4 mg 0-20 tablet by ity of disintegrat 00:00: mouth [place] ing tablet 00 every 8 Medica l (eight) Branch hours as needed for Nausea and Vomiting (N/V). ondansetron 2021-04 Yes [id number] 4mg Take 1 U nivers 4 mg 0-20 tablet by ity of disintegrat 00:00: mouth [place] ing tablet 00 every 8 Medica l (eight) Branch hours as needed for Nausea and Vomiting (N/V). ondansetron 2021-04 Yes [id number] 4mg Take 1 U nivers 4 mg 0-20 tablet by ity of disintegrat 00:00: mouth [place] ing tablet 00 every 8 Medica l (eight) Branch hours as needed for Nausea and Vomiting (N/V). ondansetron 2021-04 Yes [id number] 4mg Take 1 U nivers 4 mg 0-20 tablet by ity of disintegrat 00:00: mouth [place] ing tablet 00 every 8 Medica l (eight) Branch hours as needed for Nausea and Vomiting (N/V). ondansetron 2021-04 Yes [id number] 4mg Take 1 U nivers 4 mg 0-20 tablet by ity of disintegrat 00:00: mouth [place] ing tablet 00 every 8 Medica l (eight) Branch hours as needed for Nausea and Vomiting (N/V). ondansetron 2021-04 Yes [id number] 4mg Take 1 U nivers 4 mg 0-20 tablet by ity of disintegrat 00:00: mouth [place] ing tablet 00 every 8 Medica l (eight) Branch hours as needed for Nausea and Vomiting (N/V). ondansetron 2021-04 Yes [id number] 4mg Take 1 U nivers 4 mg 0-20 tablet by ity of disintegrat 00:00: mouth [place] ing tablet 00 every 8 Medica l (eight) Branch hours as needed for Nausea and Vomiting (N/V). ondansetron 2021-04 Yes [id number] 4mg Take 1 U nivers 4 mg 0-20 tablet by ity of disintegrat 00:00: mouth [place] ing tablet 00 every 8 Medica l (eight) Branch hours as needed for Nausea and Vomiting (N/V). ondansetron 2021-04 Yes [id number] 4mg Take 1 U nivers 4 mg 0-20 tablet by ity of disintegrat 00:00: mouth [place] ing tablet 00 every 8 Medica l (eight) Branch hours as needed for Nausea and Vomiting (N/V). ondansetron 2021-04 Yes [id number] 4mg Take 1 U nivers 4 mg 0-20 tablet by ity of disintegrat 00:00: mouth [place] ing tablet 00 every 8 Medica l (eight) Branch hours as needed for Nausea and Vomiting (N/V). ondansetron 2021-04 Yes [id number] 4mg Take 1 U nivers 4 mg 0-20 tablet by ity of disintegrat 00:00: mouth [place] ing tablet 00 every 8 Medica l (eight) Branch hours as needed for Nausea and Vomiting (N/V). ondansetron 2021-04 Yes [id number] 4mg Take 1 U nivers 4 mg 0-20 tablet by ity of disintegrat 00:00: mouth [place] ing tablet 00 every 8 Medica l (eight) Branch hours as needed for Nausea and Vomiting (N/V). ondansetron 2021-04 Yes [id number] 4mg Take 1 U nivers 4 mg 0-20 tablet by ity of disintegrat 00:00: mouth [place] ing tablet 00 every 8 Medica l (eight) Branch hours as needed for Nausea and Vomiting (N/V). ondansetron 2021-04 Yes [id number] 4mg Take 1 U nivers 4 mg 0-20 tablet by ity of disintegrat 00:00: mouth [place] ing tablet 00 every 8 Medica l (eight) Branch hours as needed for Nausea and Vomiting (N/V). ondansetron 2021-04 Yes [id number] 4mg Take 1 U nivers 4 mg 0-20 tablet by ity of disintegrat 00:00: mouth [place] ing tablet 00 every 8 Medica l (eight) Branch hours as needed for Nausea and Vomiting (N/V). ondansetron 2021-04 Yes [id number] 4mg Take 1 U nivers 4 mg 0-20 tablet by ity of disintegrat 00:00: mouth [place] ing tablet 00 every 8 Medica l (eight) Branch hours as needed for Nausea and Vomiting (N/V). ondansetron 2021-04 Yes [id number] 4mg Take 1 U nivers 4 mg 0-20 tablet by ity of disintegrat 00:00: mouth [place] ing tablet 00 every 8 Medica l (eight) Branch hours as needed for Nausea and Vomiting (N/V). ondansetron 2021-04 Yes [id number] 4mg Take 1 U nivers 4 mg 0-20 tablet by ity of disintegrat 00:00: mouth [place] ing tablet 00 every 8 Medica l (eight) Branch hours as needed for Nausea and Vomiting (N/V). ondansetron 2021-04 Yes [id number] 4mg Take 1 U nivers 4 mg 0-20 tablet by ity of disintegrat 00:00: mouth [place] ing tablet 00 every 8 Medica l (eight) Branch hours as needed for Nausea and Vomiting (N/V). ondansetron 2021-04 Yes [id number] 4mg Take 1 U nivers 4 mg 0-20 tablet by ity of disintegrat 00:00: mouth [place] ing tablet 00 every 8 Medica l (eight) Branch hours as needed for Nausea and Vomiting (N/V). ondansetron 2021-04 Yes [id number] 4mg Take 1 U nivers 4 mg 0-20 tablet by ity of disintegrat 00:00: mouth [place] ing tablet 00 every 8 Medica l (eight) Branch hours as needed for Nausea and Vomiting (N/V). ondansetron 2021-04 Yes [id number] 4mg Take 1 U nivers 4 mg 0-20 tablet by ity of disintegrat 00:00: mouth [place] ing tablet 00 every 8 Medica l (eight) Branch hours as needed for Nausea and Vomiting (N/V). LOSARTAN-HY 2021-04 Yes [id number] TAKE ONE Univers DROCHLOROTH 0-19 (1) ity of IAZIDE 00:00: TABLET(S) [place] 50-12.5 mg 00 BY MOUTH Medic al per tablet ONCE A Branch DAY. LOSARTAN-HY 2021-04 Yes [id number] TAKE ONE Univers DROCHLOROTH 0-19 (1) ity of IAZIDE 00:00: TABLET(S) [place] 50-12.5 mg 00 BY MOUTH Medic al per tablet ONCE A Branch DAY. LOSARTAN-HY 2021- Yes [id number] TAKE ONE Univers DROCHLOROTH 0-19 (1) ity of IAZIDE 00:00: TABLET(S) [place] 50-12.5 mg 00 BY MOUTH Medic al per tablet ONCE A Branch DAY. LOSARTAN-HY 2021-04 Yes [id number] TAKE ONE Univers DROCHLOROTH 0-19 (1) ity of IAZIDE 00:00: TABLET(S) [place] 50-12.5 mg 00 BY MOUTH Medic al per tablet ONCE A Branch DAY. LOSARTAN-HY 2021-04 Yes [id number] TAKE ONE [facility] DROCHLOROTH 0-19 (1) ity of IAZIDE 00:00: TABLET(S) [place] 50-12.5 mg 00 BY MOUTH Medic al per tablet ONCE A Branch DAY. LOSARTAN-HY 2021-04 Yes [id number] TAKE ONE [facility] DROCHLOROTH 0-19 (1) ity of IAZIDE 00:00: TABLET(S) [place] 50-12.5 mg 00 BY MOUTH Medic al per tablet ONCE A Branch DAY. LOSARTAN-HY 2021-04- No [id number] TAKE ONE [facility] DROCHLOROTH 0-19 12-14 (1) ity of IAZIDE 00:00: 00:00 TABLET(S) [place] 50-12.5 mg 00 :00 BY MOUTH Medic al per tablet ONCE A Branch DAY. meloxicam 2021-04- No 7.5mg Take 7.5 [facility] [place] 7.5 mg 0-13 10-13 mg by ity of tablet 16:54: 00:00 mouth in [place] 23 :00 the Medical morning. Branch meloxicam 2021-04- No 7.5mg Take 7.5 [facility] [place] 7.5 mg 0-13 10-13 mg by ity of tablet 16:54: 00:00 mouth in [place] 23 :00 the Medical morning. Branch amitriptyli 2021-04 Yes [id number] 10mg Take 1 [facility] ne 10 mg 0-13 103 tablet by ity of tablet 00:00: mouth at [place] 00 bedtime. Medical Branch meloxicam 2021-04 Yes [id number] 7.5mg Take 1 [facility] 7.5 mg 0-13 103 tablet by ity of tablet 00:00: mouth in [place] 00 the Medical morning. Branch doxycycline 2021-04 Yes [id number] 100mg Take 1 [facility] hyclate 100 0-13 tablet by ity of mg tablet 00:00: [place] 00 the Medical morning Branch and 1 tablet in the evening. FLUoxetine 2021-04 Yes [id number] 20mg Take 1 U nivers 20 mg 0-13 capsule by ity of capsule 00:00: mouth in [place] 00 the Medical morning. Branch tiZANidine 2021-04 Yes [id number] 2mg Take 1 [facility] 2 mg tablet 0-13 103 tablet by ity of 00:00: mouth at [place] 00 bedtime as Medical needed Branch (muscle spasms). tirzepatide 2021-04 Yes [id number] 2.5mg inject 2.5 [facility] (MOUNJARO) 0-13 mg under ity o f 2.5 mg/0.5 00:00: the skin [place] PnIj 00 weekly. Medical Start Branch 2.5mg [place] qWeek x 4 Weeks, then increase to 5 mg [place] qWeek amitriptyli 2021-04 Yes [id number] 10mg Take 1 [facility] ne 10 mg 0-13 103 tablet by ity of tablet 00:00: mouth at [place] 00 bedtime. Medical Branch meloxicam 2021-04 Yes [id number] 7.5mg Take 1 [facility] 7.5 mg 0-13 103 tablet by ity of tablet 00:00: mouth in [place] 00 the Medical morning. Branch doxycycline 2021-04 Yes [id number] 100mg Take 1 [facility] hyclate 100 0-13 tablet by ity of mg tablet 00:[facility] Branch and 1 tablet in the evening. FLUoxetine 2021-04 Yes [id number] 20mg Take 1 U nivers 20 mg 0-13 capsule by ity of capsule 00:00: mouth in [place] 00 the Medical morning. Branch tiZANidine 2021-04 Yes [id number] 2mg Take 1 [facility] 2 mg tablet 0-13 103 tablet by ity of 00:00: mouth at [place] 00 bedtime as Medical needed Branch (muscle spasms). tirzepatide 2021-04 Yes [id number] 2.5mg inject 2.5 [facility] (MOUNJARO) 0-13 mg under ity o f 2.5 mg/0.5 00:00: the skin [place] mL PnIj 00 weekly. Medical Start Branch 2.5mg [place] qWeek x 4 Weeks, then increase to 5 mg [place] qWeek amitriptyli 2021-04 Yes [id number] 10mg Take 1 [facility] ne 10 mg 0-13 103 tablet by ity of tablet 00:00: mouth at [place] 00 bedtime. Medical Branch meloxicam 2021-04 Yes [id number] 7.5mg Take 1 [facility] 7.5 mg 0-13 103 tablet by ity of tablet 00:00: mouth in [place] 00 the Medical morning. Branch doxycycline 2021-04 Yes [id number] 100mg Take 1 [facility] hyclate 100 0-13 tablet by ity of mg tablet 00:00: [place] 00 the Medical morning Branch and 1 tablet in the evening. FLUoxetine 2021-04 Yes [id number] 20mg Take 1 U nivers 20 mg 0-13 capsule by ity of capsule 00:00: mouth in [place] 00 the Medical morning. Branch tiZANidine 2021-04 Yes [id number] 2mg Take 1 [facility] 2 mg tablet 0-13 103 tablet by ity of 00:00: mouth at [place] 00 bedtime as Medical needed Branch (muscle spasms). tirzepatide 2021-04 Yes [id number] 2.5mg inject 2.5 Univers (MOUNJARO) 0-13 mg under ity o f 2.5 mg/0.5 00:00: the skin [place] as mL PnIj 00 weekly. [facility] 2.5mg SC qWeek x 4 Weeks, then increase to 5 mg SC qWeek amitriptyli 2021-04 Yes [id number] 10mg Take 1 [facility] 10 mg 0-13 103 tablet by [facility] tablet 00:00: mouth at [place] 00 bedtime. [facility] Branch meloxicam 2021-04 Yes [id number] 7.5mg Take 1 [facility] 7.5 mg 0-13 103 tablet by [facility] of tablet 00:00: mouth in [place] 00 the Medical morning. Branch doxycycline 2021-04 Yes [id number] 100mg Take 1 [facility] hyclate 100 0-13 tablet by [facility] mg tablet 00:00: mouth [place] 00 the Medical morning Branch and 1 tablet in the evening. FLUoxetine 2021-04 Yes [id number] 20mg Take 1 [facility] 20 mg 0-13 capsule by [facility] capsule 00:00: mouth in [place] 00 the Medical morning. Branch tiZANidine 2021-04 Yes [id number] 2mg Take 1 [facility] 2 mg tablet 0-13 103 tablet by [facility] of 00:00: mouth at [place] 00 bedtime as Medical needed Branch (muscle spasms). tirzepatide 2021-04 Yes [id number] 2.5mg inject 2.5 [facility] ([facility]) 0-13 mg under [facility]y o f 2.5 mg/0.5 00:00: the skin [place] as mL PnIj 00 weekly. [facility] Start [facility] 2.5mg SC qWeek x 4 Weeks, then increase to 5 mg SC qWeek amitriptyli 2021-04 Yes [id number] 10mg Take 1 [facility] ne 10 mg 0-13 103 tablet by [facility] of tablet 00:00: mouth at [place] 00 bedtime. [facility] Branch meloxicam 2021-04 Yes [id number] 7.5mg Take 1 [facility] 7.5 mg 0-13 103 tablet by [facility] of tablet 00:00: mouth in [place] 00 the Medical morning. Branch doxycycline 2021-04 Yes [id number] 100mg Take 1 [facility] hyclate 100 0-13 tablet by [facility] mg tablet 00:00: [facility] the Medical morning Branch and 1 tablet in the evening. FLUoxetine 2021-04 Yes [id number] 20mg Take 1 [facility] 20 mg 0-13 capsule by [facility] of capsule 00:00: mouth in [place] 00 the Medical morning. Branch tiZANidine 2021-04 Yes [id number] 2mg Take 1 [facility] 2 mg tablet 0-13 103 tablet by [facility] of 00:00: mouth at [place] 00 bedtime as Medical needed Branch (muscle spasms). tirzepatide 2021-04 Yes [id number] 2.5mg inject 2.5 [facility] ([facility]) 0-13 mg under [facility] o f 2.5 mg/0.5 00:00: the skin [place] as mL PnIj 00 weekly. [facility] 2.5mg SC qWeek x 4 Weeks, then increase to 5 mg SC qWeek amitriptyli 2021-04 Yes [id number] 10mg Take 1 [facility] ne 10 mg 0-13 103 tablet by [facility] of tablet 00:00: mouth at [place] 00 bedtime. [facility] meloxicam 2021-04 Yes [id number] 7.5mg Take 1 [facility] 7.5 mg 0-13 103 tablet by [facility] of tablet 00:00: mouth in [place] 00 the Medical morning. Branch doxycycline 2021-04 Yes [id number] 100mg Take 1 [facility] hyclate 100 0-13 tablet by [facility] mg tablet 00:00: mouth [place] 00 the Medical morning Branch and 1 tablet in the evening. FLUoxetine 2021-04 Yes [id number] 20mg Take 1 [facility] 20 mg 0-13 capsule by [facility] of capsule 00:00: mouth in [place] 00 the Medical morning. Branch tiZANidine 2021-04 Yes [id number] 2mg Take 1 [facility] 2 mg tablet 0-13 103 tablet by [facility] of 00:00: mouth at [place] 00 bedtime as Medical needed Branch (muscle spasms). tirzepatide 2021-04 Yes [id number] 2.5mg inject 2.5 [facility] ([facility]) 0-13 mg under [facility] o f 2.5 mg/0.5 00:00: the skin [place] as mL PnIj 00 weekly. [facility] 2.5mg SC qWeek x 4 Weeks, then increase to 5 mg SC qWeek amitriptyli 2021-04 Yes [id number] 10mg Take 1 [facility] ne 10 mg 0-13 103 tablet by [facility] of tablet 00:00: mouth at [place] 00 bedtime. [facility] Branch meloxicam 2021-04 Yes [id number] 7.5mg Take 1 [facility] 7.5 mg 0-13 103 tablet by [facility] of tablet 00:00: mouth in [place] 00 the Medical morning. Branch doxycycline 2021-04 Yes [id number] 100mg Take 1 [facility] hyclate 100 0-13 tablet by [facility] mg tablet 00:00: mouth [place] 00 the Medical morning Branch and 1 tablet in the evening. FLUoxetine 2021-04 Yes [id number] 20mg Take 1 [facility] 20 mg 0-13 capsule by [facility] of capsule 00:00: mouth in [place] 00 the Medical morning. Branch tiZANidine 2021-04 Yes [id number] 2mg Take 1 [facility] 2 mg tablet 0-13 103 tablet by [facility] of 00:00: mouth at [place] 00 bedtime as Medical needed Branch (muscle spasms). tirzepatide 2021-04 Yes [id number] 2.5mg inject 2.5 [facility] ([facility]) 0-13 mg under ity o f 2.5 mg/0.5 00:00: the skin [place] as mL PnIj 00 weekly. [facility] Start [facility] 2.5mg SC qWeek x 4 Weeks, then increase to 5 mg SC qWeek amitriptyli 2021-04 Yes [id number] 10mg Take 1 [facility] ne 10 mg 0-13 103 tablet by [facility] of tablet 00:00: mouth at [place] 00 bedtime. Medical Branch meloxicam 2021-04 Yes [id number] 7.5mg Take 1 [facility] 7.5 mg 0-13 103 tablet by [facility] of tablet 00:00: mouth in [place] 00 the Medical morning. Branch doxycycline 2021-04 Yes [id number] 100mg Take 1 [facility] hyclate 100 0-13 tablet by it[facility] of mg tablet 00:00: mouth in [facility] 00 the Medical morning Branch and 1 tablet in the evening. FLUoxetine 2021-04 Yes [id number] 20mg Take 1 [facility] nivers 20 mg 0-13 capsule by it[facility] of capsule 00:00: mouth in [place] 00 the Medical morning. Branch tiZANidine 2021-04 Yes [id number] 2mg Take 1 [facility] 2 mg tablet 0-13 103 tablet by ity of 00:00: mouth at [place] 00 bedtime as Medical needed Branch (muscle spasms). tirzepatide 2021-04 Yes [id number] 2.5mg inject 2.5 [facility] ([facility]) 0-13 mg under ity o f 2.5 mg/0.5 00:00: the skin [place] as mL PnIj 00 weekly. [facility] Start [facility] 2.5mg SC qWeek x 4 Weeks, then increase to 5 mg SC qWeek amitriptyli 2021-04 Yes [id number] 10mg Take 1 [facility] ne 10 mg 0-13 103 tablet by it[facility] of tablet 00:00: mouth at [place] 00 bedtime. Medical Branch meloxicam 2021-04 Yes [id number] 7.5mg Take 1 [facility] 7.5 mg 0-13 103 tablet by it[facility] of tablet 00:00: mouth in [place] 00 the Medical morning. Branch doxycycline 2021-04 Yes [id number] 100mg Take 1 [facility] hyclate 100 0-13 tablet by [facility] of mg tablet 00:00: mouth [place] 00 the Medical morning Branch and 1 tablet in the evening. FLUoxetine 2021-04 Yes [id number] 20mg Take 1 [facility] n[facility] 20 mg 0-13 capsule by it[facility] of capsule 00:00: mouth in [place] 00 the Medical morning. Branch tiZANidine 2021-04 Yes [id number] 2mg Take 1 [facility] 2 mg tablet 0-13 103 tablet by it[facility] of 00:00: mouth at [place] 00 bedtime as Medical needed Branch (muscle spasms). tirzepatide 2021-04 Yes [id number] 2.5mg inject 2.5 [facility] ([facility]) 0-13 mg under ity o f 2.5 mg/0.5 00:00: the skin [place] as mL PnIj 00 weekly. [facility] Start [facility] 2.5mg SC qWeek x 4 Weeks, then increase to 5 mg SC qWeek amitriptyli 2021-04 Yes [id number] 10mg Take 1 [facility] ne 10 mg 0-13 103 tablet by it[facility] of tablet 00:00: mouth at [place] 00 bedtime. Medical Branch meloxicam 2021-04 Yes [id number] 7.5mg Take 1 [facility] 7.5 mg 0-13 103 tablet by it[facility] of tablet 00:00: mouth in [place] 00 the Medical morning. Branch doxycycline 2021-04 Yes [id number] 100mg Take 1 [facility] hyclate 100 0-13 tablet by [facility] of mg tablet 00:00: mouth [place] 00 the Medical morning Branch and 1 tablet in the evening. FLUoxetine 2021-04 Yes [id number] 20mg Take 1 [facility] nivers 20 mg 0-13 capsule by it[facility] of capsule 00:00: mouth in [place] 00 the Medical morning. Branch tiZANidine 2021-04 Yes [id number] 2mg Take 1 [facility] 2 mg tablet 0-13 103 tablet by ity of 00:00: mouth at [place] 00 bedtime as Medical needed Branch (muscle spasms). tirzepatide 2021-04 Yes [id number] 2.5mg inject 2.5 [facility] ([facility]) 0-13 mg under ity o f 2.5 mg/0.5 00:00: the skin [place] as mL PnIj 00 weekly. [facility] Start [facility] 2.5mg SC qWeek x 4 Weeks, then increase to 5 mg SC qWeek amitriptyli 2021-04 Yes [id number] 10mg Take 1 [facility] ne 10 mg 0-13 103 tablet by ity of tablet 00:00: mouth at [place] 00 bedtime. Medical Branch meloxicam 2021-04 Yes [id number] 7.5mg Take 1 [facility] 7.5 mg 0-13 103 tablet by ity of tablet 00:00: mouth in [place] 00 the Medical morning. Branch doxycycline 2021-04 Yes [id number] 100mg Take 1 [facility] hyclate 100 0-13 tablet by [facility] of mg tablet 00:00: mouth [place] 00 the Medical morning Branch and 1 tablet in the evening. FLUoxetine 2021-04 Yes [id number] 20mg Take 1 [facility] nivers 20 mg 0-13 capsule by ity of capsule 00:00: mouth in [place] 00 the Medical morning. Branch tiZANidine 2021-04 Yes [id number] 2mg Take 1 [facility] 2 mg tablet 0-13 103 tablet by ity of 00:00: mouth at [place] 00 bedtime as Medical needed Branch (muscle spasms). amitriptyli 2021-04 Yes [id number] 10mg Take 1 [facility] ne 10 mg 0-13 103 tablet by ity of tablet 00:00: mouth at [place] 00 bedtime. Medical Branch meloxicam 2021-04 Yes [id number] 7.5mg Take 1 [facility] 7.5 mg 0-13 103 tablet by ity of tablet 00:00: mouth in [place] 00 the Medical morning. Branch doxycycline 2021-04 Yes [id number] 100mg Take 1 [facility] hyclate 100 0-13 tablet by [facility] of mg tablet 00:00: mouth [place] 00 the Medical morning Branch and 1 tablet in the evening. FLUoxetine 2021-04 Yes [id number] 20mg Take 1 [facility] nivers 20 mg 0-13 capsule by ity of capsule 00:00: mouth in [place] 00 the Medical morning. Branch tiZANidine 2021-04 Yes [id number] 2mg Take 1 [facility] 2 mg tablet 0-13 103 tablet by ity of 00:00: mouth at [place] 00 bedtime as Medical needed Branch (muscle spasms). amitriptyli 2021-04 Yes [id number] 10mg Take 1 [facility] ne 10 mg 0-13 103 tablet by ity of tablet 00:00: mouth at [place] 00 bedtime. Medical Branch meloxicam 2021-04 Yes [id number] 7.5mg Take 1 [facility] 7.5 mg 0-13 103 tablet by it[facility] of tablet 00:00: mouth in [place] 00 the Medical morning. Branch doxycycline 2021-04 Yes [id number] 100mg Take 1 [facility] hyclate 100 0-13 tablet by [facility] of mg tablet 00:00: mouth [place] 00 the Medical morning Branch and 1 tablet in the evening. FLUoxetine 2021-04 Yes [id number] 20mg Take 1 [facility] nivers 20 mg 0-13 capsule by ity of capsule 00:00: mouth in [place] 00 the Medical morning. Branch tiZANidine 2021-04 Yes [id number] 2mg Take 1 [facility] 2 mg tablet 0-13 103 tablet by ity of 00:00: mouth at [place] 00 bedtime as Medical needed Branch (muscle spasms). amitriptyli 2021-04 Yes [id number] 10mg Take 1 [facility] ne 10 mg 0-13 103 tablet by ity of tablet 00:00: mouth at [place] 00 bedtime. Medical Branch meloxicam 2021-04 Yes [id number] 7.5mg Take 1 [facility] 7.5 mg 0-13 103 tablet by ity of tablet 00:00: mouth in [place] 00 the Medical morning. Branch doxycycline 2021-04 Yes [id number] 100mg Take 1 [facility] hyclate 100 0-13 tablet by [facility] of mg tablet 00:00: mouth [place] 00 the Medical morning Branch and 1 tablet in the evening. FLUoxetine 2021-04 Yes [id number] 20mg Take 1 [facility] nivers 20 mg 0-13 capsule by ity of capsule 00:00: mouth in [place] 00 the Medical morning. Branch tiZANidine 2021-04 Yes [id number] 2mg Take 1 [facility] 2 mg tablet 0-13 103 tablet by ity of 00:00: mouth at [place] 00 bedtime as Medical needed Branch (muscle spasms). amitriptyli 2021-04 Yes [id number] 10mg Take 1 [facility] ne 10 mg 0-13 103 tablet by ity of tablet 00:00: mouth at [place] 00 bedtime. Medical Branch meloxicam 2021-04 Yes [id number] 7.5mg Take 1 [facility] 7.5 mg 0-13 103 tablet by ity of tablet 00:00: mouth in [place] 00 the Medical morning. Branch doxycycline 2021-04 Yes [id number] 100mg Take 1 [facility] hyclate 100 0-13 tablet by [facility] of mg tablet 00:00: mouth [place] 00 the Medical morning Branch and 1 tablet in the evening. FLUoxetine 2021-04 Yes [id number] 20mg Take 1 [facility] nivers 20 mg 0-13 capsule by ity of capsule 00:00: mouth in [place] 00 the Medical morning. Branch tiZANidine 2021-04 Yes [id number] 2mg Take 1 [facility] 2 mg tablet 0-13 103 tablet by ity of 00:00: mouth at [place] 00 bedtime as Medical needed Branch (muscle spasms). amitriptyli 2021-04 Yes [id number] 10mg Take 1 [facility] ne 10 mg 0-13 103 tablet by ity of tablet 00:00: mouth at [place] 00 bedtime. Medical Branch meloxicam 2021-04 Yes [id number] 7.5mg Take 1 [facility] 7.5 mg 0-13 103 tablet by ity of tablet 00:00: mouth in [place] 00 the Medical morning. Branch doxycycline 2021-04 Yes [id number] 100mg Take 1 [facility] hyclate 100 0-13 tablet by [facility] of mg tablet 00:00: mouth [place] 00 the Medical morning Branch and 1 tablet in the evening. FLUoxetine 2021-04 Yes [id number] 20mg Take 1 [facility] nivers 20 mg 0-13 capsule by ity of capsule 00:00: mouth in [place] 00 the Medical morning. Branch tiZANidine 2021-04 Yes [id number] 2mg Take 1 [facility] 2 mg tablet 0-13 103 tablet by ity of 00:00: mouth at [place] 00 bedtime as Medical needed Branch (muscle spasms). amitriptyli 2021-04 Yes [id number] 10mg Take 1 [facility] ne 10 mg 0-13 103 tablet by ity of tablet 00:00: mouth at [place] 00 bedtime. Medical Branch meloxicam 2021-04 Yes [id number] 7.5mg Take 1 [facility] 7.5 mg 0-13 103 tablet by ity of tablet 00:00: mouth in [place] 00 the Medical morning. Branch doxycycline 2021-04 Yes [id number] 100mg Take 1 [facility] hyclate 100 0-13 tablet by ity of mg tablet 00:00: mouth [place] 00 the Medical morning Branch and 1 tablet in the evening. FLUoxetine 2021-04 Yes [id number] 20mg Take 1 [facility] nivers 20 mg 0-13 capsule by ity of capsule 00:00: mouth in [place] 00 the Medical morning. Branch tiZANidine 2021-04 Yes [id number] 2mg Take 1 [facility] 2 mg tablet 0-13 103 tablet by ity of 00:00: mouth at [place] 00 bedtime as Medical needed Branch (muscle spasms). amitriptyli 2021-04 Yes [id number] 10mg Take 1 [facility] ne 10 mg 0-13 103 tablet by ity of tablet 00:00: mouth at [place] 00 bedtime. Medical Branch meloxicam 2021-04 Yes [id number] 7.5mg Take 1 [facility] 7.5 mg 0-13 103 tablet by ity of tablet 00:00: mouth in [place] 00 the Medical morning. Branch doxycycline 2021-04 Yes [id number] 100mg Take 1 [facility] hyclate 100 0-13 tablet by [facility] mg tablet 00:00: [place] 00 the Medical morning Branch and 1 tablet in the evening. FLUoxetine 2021-04 Yes [id number] 20mg Take 1 [facility] nivers 20 mg 0-13 capsule by ity of capsule 00:00: mouth in [place] 00 the Medical morning. Branch tiZANidine 2021-04 Yes [id number] 2mg Take 1 [facility] 2 mg tablet 0-13 103 tablet by ity of 00:00: mouth at [place] 00 bedtime as Medical needed Branch (muscle spasms). amitriptyli 2021-04 Yes [id number] 10mg Take 1 [facility] ne 10 mg 0-13 103 tablet by ity of tablet 00:00: mouth at [place] 00 bedtime. Medical Branch meloxicam 2021-04 Yes [id number] 7.5mg Take 1 [facility] 7.5 mg 0-13 103 tablet by ity of tablet 00:00: mouth in [place] 00 the Medical morning. Branch doxycycline 2021-04 Yes [id number] 100mg Take 1 [facility] hyclate 100 0-13 tablet by [facility] of mg tablet 00:00: mouth [place] 00 the Medical morning Branch and 1 tablet in the evening. FLUoxetine 2021-04 Yes [id number] 20mg Take 1 [facility] nivers 20 mg 0-13 capsule by ity of capsule 00:00: mouth in [place] 00 the Medical morning. Branch tiZANidine 2021-04 Yes [id number] 2mg Take 1 [facility] 2 mg tablet 0-13 103 tablet by ity of 00:00: mouth at [place] 00 bedtime as Medical needed Branch (muscle spasms). amitriptyli 2021-04 Yes [id number] 10mg Take 1 [facility] ne 10 mg 0-13 103 tablet by ity of tablet 00:00: mouth at [place] 00 bedtime. Medical Branch meloxicam 2021-04 Yes [id number] 7.5mg Take 1 [facility] 7.5 mg 0-13 103 tablet by ity of tablet 00:00: mouth in [place] 00 the Medical morning. Branch doxycycline 2021-04 Yes [id number] 100mg Take 1 [facility] hyclate 100 0-13 tablet by [facility] of mg tablet 00:00: mouth in [place] 00 the Medical morning Branch and 1 tablet in the evening. FLUoxetine 2021-04 Yes [id number] 20mg Take 1 [facility] nivers 20 mg 0-13 capsule by ity of capsule 00:00: mouth in [place] 00 the Medical morning. Branch tiZANidine 2021-04 Yes [id number] 2mg Take 1 [facility] 2 mg tablet 0-13 103 tablet by ity of 00:00: mouth at [place] 00 bedtime as Medical needed Branch (muscle spasms). amitriptyli 2021-04 Yes [id number] 10mg Take 1 [facility] ne 10 mg 0-13 103 tablet by ity of tablet 00:00: mouth at [place] 00 bedtime. Medical Branch meloxicam 2021-04 Yes [id number] 7.5mg Take 1 [facility] 7.5 mg 0-13 103 tablet by ity of tablet 00:00: mouth in [place] 00 the Medical morning. Branch doxycycline 2021-04 Yes [id number] 100mg Take 1 [facility] hyclate 100 0-13 tablet by [facility] of mg tablet 00:00: mouth [place] 00 the Medical morning Branch and 1 tablet in the evening. FLUoxetine 2021-04 Yes [id number] 20mg Take 1 [facility] nivers 20 mg 0-13 capsule by ity of capsule 00:00: mouth in [place] 00 the Medical morning. Branch tiZANidine 2021-04 Yes [id number] 2mg Take 1 [facility] 2 mg tablet 0-13 103 tablet by ity of 00:00: mouth at [place] 00 bedtime as Medical needed Branch (muscle spasms). amitriptyli 2021-04 Yes [id number] 10mg Take 1 [facility] ne 10 mg 0-13 103 tablet by ity of tablet 00:00: mouth at [place] 00 bedtime. Medical Branch meloxicam 2021-04 Yes [id number] 7.5mg Take 1 [facility] 7.5 mg 0-13 103 tablet by ity of tablet 00:00: mouth in [place] 00 the Medical morning. Branch doxycycline 2021-04 Yes [id number] 100mg Take 1 [facility] hyclate 100 0-13 tablet by ity of mg tablet 00:00: mouth in [facility] 00 the Medical morning Branch and 1 tablet in the evening. FLUoxetine 2021-04 Yes [id number] 20mg Take 1 [facility] nivers 20 mg 0-13 capsule by ity of capsule 00:00: mouth in [place] 00 the Medical morning. Branch tiZANidine 2021-04 Yes [id number] 2mg Take 1 [facility] 2 mg tablet 0-13 103 tablet by ity of 00:00: mouth at [place] 00 bedtime as Medical needed Branch (muscle spasms). amitriptyli 2021-04 Yes [id number] 10mg Take 1 [facility] ne 10 mg 0-13 103 tablet by ity of tablet 00:00: mouth at [place] 00 bedtime. Medical Branch meloxicam 2021-04 Yes [id number] 7.5mg Take 1 [facility] 7.5 mg 0-13 103 tablet by ity of tablet 00:00: mouth in [place] 00 the Medical morning. Branch doxycycline 2021-04 Yes [id number] 100mg Take 1 [facility] hyclate 100 0-13 tablet by ity of mg tablet 00:00: mouth in [facility] 00 the Medical morning Branch and 1 tablet in the evening. FLUoxetine 2021-04 Yes [id number] 20mg Take 1 [facility] nivers 20 mg 0-13 capsule by ity of capsule 00:00: mouth in [place] 00 the Medical morning. Branch tiZANidine 2021-04 Yes [id number] 2mg Take 1 [facility] 2 mg tablet 0-13 103 tablet by ity of 00:00: mouth at [place] 00 bedtime as Medical needed Branch (muscle spasms). amitriptyli 2021-04 Yes [id number] 10mg Take 1 [facility] ne 10 mg 0-13 103 tablet by ity of tablet 00:00: mouth at [place] 00 bedtime. Medical Branch meloxicam 2021-04 Yes [id number] 7.5mg Take 1 [facility] 7.5 mg 0-13 103 tablet by ity of tablet 00:00: mouth in [place] 00 the Medical morning. Branch doxycycline 2021-04 Yes [id number] 100mg Take 1 [facility] hyclate 100 0-13 tablet by ity of mg tablet 00:00: mouth in [facility] 00 the Medical morning Branch and 1 tablet in the evening. FLUoxetine 2021-04 Yes [id number] 20mg Take 1 [facility] nivers 20 mg 0-13 capsule by ity of capsule 00:00: mouth in [place] 00 the Medical morning. Branch tiZANidine 2021-04 Yes [id number] 2mg Take 1 [facility] 2 mg tablet 0-13 103 tablet by ity of 00:00: mouth at [place] 00 bedtime as Medical needed Branch (muscle spasms). amitriptyli 2021-04 Yes [id number] 10mg Take 1 [facility] ne 10 mg 0-13 103 tablet by ity of tablet 00:00: mouth at [place] 00 bedtime. Medical Branch meloxicam 2021-04 Yes [id number] 7.5mg Take 1 [facility] 7.5 mg 0-13 103 tablet by ity of tablet 00:00: mouth in [place] 00 the Medical morning. Branch doxycycline 2021-04 Yes [id number] 100mg Take 1 [facility] hyclate 100 0-13 tablet by [facility] of mg tablet 00:00: mouth in [place] 00 the Medical morning Branch and 1 tablet in the evening. tiZANidine 2021-04 Yes [id number] 2mg Take 1 [facility] 2 mg tablet 0-13 103 tablet by ity of 00:00: mouth at [place] 00 bedtime as Medical needed Branch (muscle spasms). amitriptyli 2021-04 Yes [id number] 10mg Take 1 [facility] ne 10 mg 0-13 103 tablet by ity of tablet 00:00: mouth at [place] 00 bedtime. Medical Branch meloxicam 2021-04 Yes [id number] 7.5mg Take 1 [facility] 7.5 mg 0-13 103 tablet by ity of tablet 00:00: mouth in [place] 00 the Medical morning. Branch doxycycline 2021-04 Yes [id number] 100mg Take 1 [facility] hyclate 100 0-13 tablet by [facility] of mg tablet 00:00: [facility] the Medical morning Branch and 1 tablet in the evening. tiZANidine 2021-04 Yes [id number] 2mg Take 1 [facility] 2 mg tablet 0-13 103 tablet by ity of 00:00: mouth at [place] 00 bedtime as Medical needed Branch (muscle spasms). amitriptyli 2021-04 Yes [id number] 10mg Take 1 [facility] ne 10 mg 0-13 103 tablet by ity of tablet 00:00: mouth at [place] 00 bedtime. Medical Branch meloxicam 2021-04 Yes [id number] 7.5mg Take 1 [facility] 7.5 mg 0-13 103 tablet by ity of tablet 00:00: mouth in [place] the Medical morning. Branch doxycycline 2021-04 Yes [id number] 100mg Take 1 [facility] hyclate 100 0-13 tablet by ity of mg tablet 00:00: mouth in [facility] the Medical morning Branch and 1 tablet in the evening. tiZANidine 2021-04 Yes [id number] 2mg Take 1 [facility] 2 mg tablet 0-13 103 tablet by ity of 00:00: mouth at [place] 00 bedtime as Medical needed Branch (muscle spasms). amitriptyli 2021-04 Yes [id number] 10mg Take 1 [facility] ne 10 mg 0-13 103 tablet by ity of tablet 00:00: mouth at [place] 00 bedtime. Medical Branch meloxicam 2021-04 Yes [id number] 7.5mg Take 1 [facility] 7.5 mg 0-13 103 tablet by ity of tablet 00:00: mouth in [place] 00 the Medical morning. Branch doxycycline 2021-04 Yes [id number] 100mg Take 1 [facility] hyclate 100 0-13 tablet by ity of mg tablet 00:00: mouth in [facility] 00 the Medical morning Branch and 1 tablet in the evening. tiZANidine 2021-04 Yes [id number] 2mg Take 1 [facility] 2 mg tablet 0-13 103 tablet by ity of 00:00: mouth at [place] 00 bedtime as Medical needed Branch (muscle spasms). amitriptyli 2021-04 Yes [id number] 10mg Take 1 [facility] ne 10 mg 0-13 103 tablet by ity of tablet 00:00: mouth at [place] 00 bedtime. Medical Branch meloxicam 2021-04 Yes [id number] 7.5mg Take 1 [facility] 7.5 mg 0-13 103 tablet by ity of tablet 00:00: mouth in [place] 00 the Medical morning. Branch doxycycline 2021-04 Yes [id number] 100mg Take 1 [facility] hyclate 100 0-13 tablet by [facility] of mg tablet 00:00: mouth in [place] 00 the Medical morning Branch and 1 tablet in the evening. tiZANidine 2021-04 Yes [id number] 2mg Take 1 [facility] 2 mg tablet 0-13 103 tablet by ity of 00:00: mouth at [place] 00 bedtime as Medical needed Branch (muscle spasms). amitriptyli 2021-04 Yes [id number] 10mg Take 1 [facility] ne 10 mg 0-13 103 tablet by ity of tablet 00:00: mouth at [place] 00 bedtime. Medical Branch doxycycline 2021-04 Yes [id number] 100mg Take 1 [facility] hyclate 100 0-13 tablet by [facility]y of mg tablet 00:00: mouth in [place] 00 the Medical morning Branch and 1 tablet in the evening. tiZANidine 2021-04 Yes [id number] 2mg Take 1 [facility] 2 mg tablet 0-13 103 tablet by ity of 00:00: mouth at [place] 00 bedtime as Medical needed Branch (muscle spasms). amitriptyli 2021-04 Yes [id number] 10mg Take 1 [facility] ne 10 mg 0-13 103 tablet by ity of tablet 00:00: mouth at [place] 00 bedtime. Medical Branch doxycycline 2021-04 Yes [id number] 100mg Take 1 [facility] hyclate 100 0-13 tablet by [facility] of mg tablet 00:00: mouth in [place] 00 the Medical morning Branch and 1 tablet in the evening. tiZANidine 2021-04 Yes [id number] 2mg Take 1 [facility] 2 mg tablet 0-13 103 tablet by ity of 00:00: mouth at [place] 00 bedtime as Medical needed Branch (muscle spasms). amitriptyli 2021-04 Yes [id number] 10mg Take 1 [facility] ne 10 mg 0-13 103 tablet by ity of tablet 00:00: mouth at [place] 00 bedtime. Medical Branch doxycycline 2021-04 Yes [id number] 100mg Take 1 [facility] hyclate 100 0-13 tablet by [facility]y of mg tablet 00:00: mouth in [place] 00 the Medical morning Branch and 1 tablet in the evening. tiZANidine 2021-04 Yes [id number] 2mg Take 1 [facility] 2 mg tablet 0-13 103 tablet by ity of 00:00: mouth at [place] 00 bedtime as Medical needed Branch (muscle spasms). amitriptyli 2021-04 Yes [id number] 10mg Take 1 [facility] ne 10 mg 0-13 103 tablet by [facility]y of tablet 00:00: mouth at [place] 00 bedtime. Medical Branch doxycycline 2021-04 Yes [id number] 100mg Take 1 [facility] hyclate 100 0-13 tablet by [facility]y of mg tablet 00:00: mouth in [place] 00 the Medical morning Branch and 1 tablet in the evening. tiZANidine 2021-04 Yes [id number] 2mg Take 1 [facility] 2 mg tablet 0-13 103 tablet by ity of 00:00: mouth at [place] 00 bedtime as Medical needed Branch (muscle spasms). amitriptyli 2021-04 Yes [id number] 10mg Take 1 [facility] ne 10 mg 0-13 103 tablet by [facility] of tablet 00:00: mouth at [place] 00 bedtime. Medical Branch doxycycline 2021-04 Yes [id number] 100mg Take 1 [facility] hyclate 100 0-13 tablet by [facility] mg tablet 00:00: mouth [place] 00 the Medical morning Branch and 1 tablet in the evening. tiZANidine 2021-04 Yes [id number] 2mg Take 1 [facility] 2 mg tablet 0-13 103 tablet by [facility] of 00:00: mouth at [place] 00 bedtime as Medical needed Branch (muscle spasms). amitriptyli 2021-04 Yes [id number] 10mg Take 1 [facility] ne 10 mg 0-13 103 tablet by [facility] of tablet 00:00: mouth at [place] 00 bedtime. Medical Branch amitriptyli 2021-04 Yes [id number] 10mg Take 1 [facility] ne 10 mg 0-13 103 tablet by [facility] of tablet 00:00: mouth at [place] 00 bedtime. Medical Branch amitriptyli 2021-04 Yes [id number] 10mg Take 1 [facility] ne 10 mg 0-13 103 tablet by [facility] of tablet 00:00: mouth at [place] bedtime. Medical Branch amitriptyli 2021-04 Yes [id number] 10mg Take 1 [facility] 10 mg 0-13 103 tablet by [facility] of tablet 00:00: mouth at [place] bedtime. Medical Branch amitriptyli 2021-04 Yes [id number] 10mg Take 1 [facility] 10 mg 0-13 103 tablet by [facility] of tablet 00:00: mouth at [place] bedtime. Medical Branch amitriptyli 2021-04 Yes [id number] 10mg Take 1 [facility] ne 10 mg 0-13 103 tablet by [facility] of tablet 00:00: mouth at [place] [address] bedtime. Medical Branch amitriptyli 2021-04 Yes [id number] 10mg Take 1 [facility] ne 10 mg 0-13 103 tablet by [facility] of tablet 00:00: mouth at [place] bedtime. Medical Branch amitriptyli 2021-04 Yes [id number] 10mg Take 1 [facility] ne 10 mg 0-13 103 tablet by [facility] of tablet 00:00: mouth at [place] [address] bedtime. Medical Branch amitriptyli 2021-04 Yes [id number] 10mg Take 1 [facility] ne 10 mg 0-13 103 tablet by [facility] of tablet 00:00: mouth at [place] bedtime. Medical Branch amitriptyli 2021-04 Yes [id number] 10mg Take 1 [facility] ne 10 mg 0-13 103 tablet by [facility] of tablet 00:00: mouth at [place] 00 bedtime. Medical Branch amitriptyli 2021-04 Yes [id number] 10mg Take 1 [facility] ne 10 mg 0-13 103 tablet by [facility] of tablet 00:00: mouth at [place] 00 bedtime. Medical Branch amitriptyli 2021-04 Yes [id number] 10mg Take 1 [facility] 10 mg 0-13 103 tablet by [facility] of tablet 00:00: mouth at [place] 00 bedtime. Medical Branch amitriptyli 2021-04 Yes [id number] 10mg Take 1 [facility] 10 mg 0-13 103 tablet by [facility] of tablet 00:00: mouth at [place] 00 bedtime. Medical Branch amitriptyli 2021-04 Yes [id number] 10mg Take 1 [facility] 10 mg 0-13 103 tablet by [facility] of tablet 00:00: mouth at [place] 00 bedtime. Medical Branch amitriptyli 2021-04 Yes [id number] 10mg Take 1 [facility] 10 mg 0-13 103 tablet by [facility] of tablet 00:00: mouth at [place] 00 bedtime. Medical Branch amitriptyli 2021-04 Yes [id number] 10mg Take 1 [facility] ne 10 mg 0-13 103 tablet by [facility] of tablet 00:00: mouth at [place] 00 bedtime. Medical Branch amitriptyli 2021-04 Yes [id number] 10mg Take 1 [facility] ne 10 mg 0-13 103 tablet by [facility] of tablet 00:00: mouth at [place] 00 bedtime. Medical Branch amitriptyli 2021-04 Yes [id number] 10mg Take 1 [facility] ne 10 mg 0-13 103 tablet by [facility] of tablet 00:00: mouth at [place] 00 bedtime. Medical Branch doxycycline 2021-04- No [id number] 100mg Take 1 [facility] hyclate 100 0-13 06-20 tablet by it y of mg tablet 00:00: 00:00 mouth in [place] 00 :00 the Medical morning Branch and 1 tablet in the evening. tiZANidine 2021-04- No [id number] 2mg Take 1 [facility] 2 mg tablet 0-13 06-20 103 tablet by it y of 00:00: 00:00 mouth at [place] 00 :00 bedtime as Medical needed Branch (muscle spasms). doxycycline 2021-04- No [id number] 100mg Take 1 [facility] hyclate 100 0-13 06-20 tablet by it y of mg tablet 00:00: 00:00 mouth in [place] 00 :00 the Medical morning Branch and 1 tablet in the evening. tiZANidine 2021-04- No [id number] 2mg Take 1 [facility] 2 mg tablet 0-13 06-20 103 tablet by it y of 00:00: 00:00 mouth at [place] 00 :00 bedtime as Medical needed Branch (muscle spasms). meloxicam 2021-04- No [id number] 7.5mg Take 1 [facility] 7.5 mg 0- 06-05 103 tablet by ity of tablet 00:00: 00:00 mouth in [place] 00 :00 the Medical morning. Branch FLUoxetine 2021-04- No [id number] 20mg Take 1 [facility] 20 mg 0- 05-10 capsule by ity of capsule 00:00: 00:00 mouth in [place] 00 :00 the Medical morning. Branch tirzepatide 2021-04- No [id number] 2.5mg inject 2.5 [facility] (MOUNJARO) 0-13 01-26 mg under ity of 2.5 mg/0.5 00:00: 00:00 the skin [place] mL PnIj 00 :00 weekly. Medical Start Branch 2.5mg SC qWeek x 4 Weeks, then increase to 5 mg [place] qWeek TRULICITY Yes [id number] .75mg INJECT [facility] 0.75 mg/0.5 9-12 0.75 MG ity o f mL PnIj 00:00: UNDER THE [place] [address] SKIN Medical WEEKLY. Branch TRULICITY Yes [id number] .75mg INJECT [facility] 0.75 mg/0.5 9-12 0.75 MG ity o f mL PnIj 00:00: UNDER THE [place] [address] SKIN Medical WEEKLY. Branch TRULICITY Yes [id number] .75mg INJECT [facility] 0.75 mg/0.5 9-12 0.75 MG ity o f mL PnIj 00:00: UNDER THE [place] [address] SKIN Medical WEEKLY. Branch TRULICITY Yes [id number] .75mg INJECT [facility] 0.75 mg/0.5 9-12 0.75 MG ity o f mL PnIj 00:00: UNDER THE [place] [address] SKIN Medical WEEKLY. Branch TRULICITY Yes [id number] .75mg INJECT [facility] 0.75 mg/0.5 9-12 0.75 MG ity o f mL PnIj 00:00: UNDER THE [place] [address] SKIN Medical WEEKLY. Branch TRULICITY 2021- No [id number] .75mg INJECT [facility] 0.75 mg/0.5 9-12 10-13 0.75 MG ity of mL PnIj 00:00: 00:[place] :[place] SKIN Medical WEEKLY. Branch TRULICITY 2022- No [id number] .75mg INJECT [facility] 0.75 mg/0.5 12-27 10-13 0.75 MG ity of mL PnIj 00:00: [facility]. Branch meloxicam Yes 7.5mg Take 7.5 [facility] vers 7.5 mg 9-08 mg by ity of tablet 15:52: mouth in [place] [address] the Medical morning. Branch meloxicam Yes 7.5mg Take 7.5 [facility] vers 7.5 mg 9-08 mg by ity of tablet 15:52: mouth in [place] [address] the Medical morning. Branch meloxicam Yes 7.5mg Take 7.5 [facility] vers 7.5 mg 9-08 mg by ity of tablet 15:52: mouth in [place] [address] the Medical morning. Branch meloxicam Yes 7.5mg Take 7.5 [facility] vers 7.5 mg 9-08 mg by ity of tablet 15:52: mouth in [place] [address] the Medical morning. Branch meloxicam Yes 7.5mg Take 7.5 [facility] vers 7.5 mg 9-08 mg by ity of tablet 15:52: mouth in [place] [address] the Medical morning. Branch meloxicam Yes 7.5mg Take 7.5 [facility] vers 7.5 mg 9-08 mg by ity of tablet 15:52: mouth in [place] [address] the Medical morning. Branch Diclofenac Yes [id number] Apply to [facility] Sodium 9-08 area(s) 4 ity of (VOLTAREN) 00:00: (four) [place] 1 % gel 00 times Medical daily. Branch Apply 4 g QID on affected areas acetaminoph Yes [id number] 650mg Take 1 [facility] en 650 mg 9-08 tablet by ity o f CR tablet 00:00: mouth [place] 00 every 8 Medical (eight) Branch hours as needed for Pain or Fever. doxycycline Yes [id number] 100mg Take 1 [facility] hyclate 100 9-08 tablet by [facility] of mg tablet 00:00: mouth [place] 00 the Medical morning Branch and 1 tablet in the evening. Diclofenac 2022-0 Yes [id number] Apply to [facility] Sodium 9-08 area(s) 4 ity of (VOLTAREN) 00:00: (four) [place] 1 % gel 00 times Medical daily. Branch Apply 4 g QID on affected areas acetaminoph 2022-0 Yes [id number] 650mg Take 1 [facility] en 650 mg 9-08 tablet by ity o f CR tablet 00:00: mouth [place] 00 every 8 Medical (eight) Branch hours as needed for Pain or Fever. doxycycline 2022-0 Yes [id number] 100mg Take 1 [facility] hyclate 100 9-08 tablet by [facility] mg tablet 00:00: mouth [place] 00 the Medical morning Branch and 1 tablet in the evening. Diclofenac 2022-0 Yes [id number] Apply to [facility] Sodium 9-08 area(s) 4 ity of (VOLTAREN) 00:00: (four) [place] 1 % gel 00 times Medical daily. Branch Apply 4 g QID on affected areas acetaminoph 2-0 Yes [id number] 650mg Take 1 [facility] en 650 mg 9-08 tablet by ity o f CR tablet 00:00: mouth [place] 00 every 8 Medical (eight) Branch hours as needed for Pain or Fever. doxycycline 2-0 Yes [id number] 100mg Take 1 [facility] hyclate 100 9-08 tablet by [facility] of mg tablet 00:00: mouth [place] 00 the Medical morning Branch and 1 tablet in the evening. Diclofenac 2022-0 Yes [id number] Apply to [facility] Sodium 9-08 area(s) 4 ity of (VOLTAREN) 00:00: (four) [place] 1 % gel 00 times Medical daily. Branch Apply 4 g QID on affected areas acetaminoph 2-0 Yes [id number] 650mg Take 1 [facility] en 650 mg 9-08 tablet by ity o f CR tablet 00:00: mouth [place] 00 every 8 Medical (eight) Branch hours as needed for Pain or Fever. doxycycline 2022-0 Yes [id number] 100mg Take 1 [facility] hyclate 100 9-08 tablet by [facility] of mg tablet 00:00: mouth [place] 00 the Medical morning Branch and 1 tablet in the evening. Diclofenac 2022-0 Yes [id number] Apply to [facility] Sodium 9-08 area(s) 4 ity of (VOLTAREN) 00:00: (four) [place] 1 % gel 00 times Medical daily. Branch Apply 4 g QID on affected areas acetaminoph 2-0 Yes [id number] 650mg Take 1 [facility] en 650 mg 9-08 tablet by ity o f CR tablet 00:00: mouth [place] 00 every 8 Medical (eight) Branch hours as needed for Pain or Fever. doxycycline 2-0 Yes [id number] 100mg Take 1 [facility] hyclate 100 9-08 tablet by [facility] of mg tablet 00:00: mouth [place] 00 the Medical morning Branch and 1 tablet in the evening. Diclofenac 2-0 Yes [id number] Apply to [facility] Sodium 9-08 area(s) 4 ity of (VOLTAREN) 00:00: (four) [place] 1 % gel 00 times Medical daily. Branch Apply 4 g QID on affected areas acetaminoph 2021-0 Yes [id number] 650mg Take 1 [facility] en 650 mg 9-08 tablet by ity o f CR tablet 00:00: mouth [place] 00 every 8 Medical (eight) Branch hours as needed for Pain or Fever. doxycycline 2021-0 Yes [id number] 100mg Take 1 [facility] hyclate 100 9-08 tablet by [facility] of mg tablet 00:00: mouth [place] 00 the Medical morning Branch and 1 tablet in the evening. Diclofenac 2021-0 Yes [id number] Apply to [facility] Sodium 9-08 area(s) 4 ity of (VOLTAREN) 00:00: (four) [place] 1 % gel 00 times Medical daily. Branch Apply 4 g QID on affected areas acetaminoph 2-0 Yes [id number] 650mg Take 1 [facility] en 650 mg 9-08 tablet by ity o f CR tablet 00:00: mouth [place] 00 every 8 Medical (eight) Branch hours as needed for Pain or Fever. Diclofenac 2-0 Yes [id number] Apply to [facility] Sodium 9-08 area(s) 4 ity of (VOLTAREN) 00:00: (four) [place] 1 % gel 00 times Medical daily. Branch Apply 4 g QID on affected areas acetaminoph 2-0 Yes [id number] 650mg Take 1 [facility] en 650 mg 9-08 tablet by ity o f CR tablet 00:00: mouth [place] 00 every 8 Medical (eight) Branch hours as needed for Pain or Fever. Diclofenac 2022-0 Yes [id number] Apply to [facility] Sodium 9-08 area(s) 4 ity of (VOLTAREN) 00:00: (four) [place] 1 % gel 00 times Medical daily. Branch Apply 4 g QID on affected areas acetaminoph 2022-0 Yes [id number] 650mg Take 1 [facility] en 650 mg 9-08 tablet by ity o f CR tablet 00:00: mouth [place] 00 every 8 Medical (eight) Branch hours as needed for Pain or Fever. Diclofenac 2-0 Yes [id number] Apply to [facility] Sodium 9-08 area(s) 4 ity of (VOLTAREN) 00:00: (four) [place] 1 % gel 00 times Medical daily. Branch Apply 4 g QID on affected areas acetaminoph 2-0 Yes [id number] 650mg Take 1 [facility] en 650 mg 9-08 tablet by ity o f CR tablet 00:00: mouth [place] 00 every 8 Medical (eight) Branch hours as needed for Pain or Fever. Diclofenac 2021-0 Yes [id number] Apply to [facility] Sodium 9-08 area(s) 4 ity of (VOLTAREN) 00:00: (four) [place] 1 % gel 00 times Medical daily. Branch Apply 4 g QID on affected areas acetaminoph 2-0 Yes [id number] 650mg Take 1 [facility] en 650 mg 9-08 tablet by ity o f CR tablet 00:00: mouth [place] 00 every 8 Medical (eight) Branch hours as needed for Pain or Fever. Diclofenac 2-0 Yes [id number] Apply to [facility] Sodium 9-08 area(s) 4 ity of (VOLTAREN) 00:00: (four) [place] 1 % gel 00 times Medical daily. Branch Apply 4 g QID on affected areas acetaminoph 2022-0 Yes [id number] 650mg Take 1 [facility] en 650 mg 9-08 tablet by ity o f CR tablet 00:00: mouth [place] 00 every 8 Medical (eight) Branch hours as needed for Pain or Fever. Diclofenac 2-0 Yes [id number] Apply to [facility] Sodium 9-08 area(s) 4 ity of (VOLTAREN) 00:00: (four) [place] 1 % gel 00 times Medical daily. Branch Apply 4 g QID on affected areas acetaminoph 2022-0 Yes [id number] 650mg Take 1 [facility] en 650 mg 9-08 tablet by ity o f CR tablet 00:00: mouth [place] 00 every 8 Medical (eight) Branch hours as needed for Pain or Fever. Diclofenac 2022-0 Yes [id number] Apply to [facility] Sodium 9-08 area(s) 4 ity of (VOLTAREN) 00:00: (four) [place] 1 % gel 00 times Medical daily. Branch Apply 4 g QID on affected areas acetaminoph 2022-0 Yes [id number] 650mg Take 1 [facility] en 650 mg 9-08 tablet by ity o f CR tablet 00:00: mouth [place] 00 every 8 Medical (eight) Branch hours as needed for Pain or Fever. Diclofenac 2-0 Yes [id number] Apply to [facility] Sodium 9-08 area(s) 4 ity of (VOLTAREN) 00:00: (four) [place] 1 % gel 00 times Medical daily. Branch Apply 4 g QID on affected areas acetaminoph 2022-0 Yes [id number] 650mg Take 1 [facility] en 650 mg 9-08 tablet by ity o f CR tablet 00:00: mouth [place] 00 every 8 Medical (eight) Branch hours as needed for Pain or Fever. Diclofenac 2-0 Yes [id number] Apply to [facility] Sodium 9-08 area(s) 4 ity of (VOLTAREN) 00:00: (four) [place] 1 % gel 00 times Medical daily. Branch Apply 4 g QID on affected areas acetaminoph 2-0 Yes [id number] 650mg Take 1 [facility] en 650 mg 9-08 tablet by ity o f CR tablet 00:00: mouth [place] 00 every 8 Medical (eight) Branch hours as needed for Pain or Fever. Diclofenac 2022-0 Yes [id number] Apply to [facility] Sodium 9-08 area(s) 4 ity of (VOLTAREN) 00:00: (four) [place] 1 % gel 00 times Medical daily. Branch Apply 4 g QID on affected areas acetaminoph 2022-0 Yes [id number] 650mg Take 1 [facility] en 650 mg 9-08 tablet by ity o f CR tablet 00:00: mouth [place] 00 every 8 Medical (eight) Branch hours as needed for Pain or Fever. Diclofenac 2022-0 Yes [id number] Apply to [facility] Sodium 9-08 area(s) 4 ity of (VOLTAREN) 00:00: (four) [place] 1 % gel 00 times Medical daily. Branch Apply 4 g QID on affected areas acetaminoph 2022-0 Yes [id number] 650mg Take 1 [facility] en 650 mg 9-08 tablet by ity o f CR tablet 00:00: mouth [place] 00 every 8 Medical (eight) Branch hours as needed for Pain or Fever. Diclofenac 2021-0 Yes [id number] Apply to [facility] Sodium 9-08 area(s) 4 ity of (VOLTAREN) 00:00: (four) [place] 1 % gel 00 times Medical daily. Branch Apply 4 g QID on affected areas acetaminoph 2022-0 Yes [id number] 650mg Take 1 [facility] en 650 mg 9-08 tablet by ity o f CR tablet 00:00: mouth [place] 00 every 8 Medical (eight) Branch hours as needed for Pain or Fever. Diclofenac 2021-0 Yes [id number] Apply to [facility] Sodium 9-08 area(s) 4 ity of (VOLTAREN) 00:00: (four) [place] 1 % gel 00 times Medical daily. Branch Apply 4 g QID on affected areas acetaminoph 2-0 Yes [id number] 650mg Take 1 [facility] en 650 mg 9-08 tablet by ity o f CR tablet 00:00: mouth [place] 00 every 8 Medical (eight) Branch hours as needed for Pain or Fever. Diclofenac 2021-0 Yes [id number] Apply to [facility] Sodium 9-08 area(s) 4 ity of (VOLTAREN) 00:00: (four) [place] 1 % gel 00 times Medical daily. Branch Apply 4 g QID on affected areas acetaminoph 2022-0 Yes [id number] 650mg Take 1 [facility] en 650 mg 9-08 tablet by ity o f CR tablet 00:00: mouth [place] 00 every 8 Medical (eight) Branch hours as needed for Pain or Fever. Diclofenac 2021-0 Yes [id number] Apply to [facility] Sodium 9-08 area(s) 4 ity of (VOLTAREN) 00:00: (four) [place] 1 % gel 00 times Medical daily. Branch Apply 4 g QID on affected areas acetaminoph 2022-0 Yes [id number] 650mg Take 1 [facility] en 650 mg 9-08 tablet by ity o f CR tablet 00:00: mouth [place] 00 every 8 Medical (eight) Branch hours as needed for Pain or Fever. Diclofenac 2-0 Yes [id number] Apply to [facility] Sodium 9-08 area(s) 4 ity of (VOLTAREN) 00:00: (four) [place] 1 % gel 00 times Medical daily. Branch Apply 4 g QID on affected areas acetaminoph 2022-0 Yes [id number] 650mg Take 1 [facility] en 650 mg 9-08 tablet by ity o f CR tablet 00:00: mouth [place] 00 every 8 Medical (eight) Branch hours as needed for Pain or Fever. Diclofenac 2-0 Yes [id number] Apply to [facility] Sodium 9-08 area(s) 4 ity of (VOLTAREN) 00:00: (four) [place] 1 % gel 00 times Medical daily. Branch Apply 4 g QID on affected areas acetaminoph 2022-0 Yes [id number] 650mg Take 1 [facility] en 650 mg 9-08 tablet by ity o f CR tablet 00:00: mouth [place] 00 every 8 Medical (eight) Branch hours as needed for Pain or Fever. Diclofenac 2-0 Yes [id number] Apply to [facility] Sodium 9-08 area(s) 4 ity of (VOLTAREN) 00:00: (four) [place] 1 % gel 00 times Medical daily. Branch Apply 4 g QID on affected areas acetaminoph 2022-0 Yes [id number] 650mg Take 1 [facility] en 650 mg 9-08 tablet by ity o f CR tablet 00:00: mouth [place] 00 every 8 Medical (eight) Branch hours as needed for Pain or Fever. Diclofenac 2-0 Yes [id number] Apply to [facility] Sodium 9-08 area(s) 4 ity of (VOLTAREN) 00:00: (four) [place] 1 % gel 00 times Medical daily. Branch Apply 4 g QID on affected areas acetaminoph 2022-0 Yes [id number] 650mg Take 1 [facility] en 650 mg 9-08 tablet by ity o f CR tablet 00:00: mouth [place] 00 every 8 Medical (eight) Branch hours as needed for Pain or Fever. Diclofenac 2022-0 Yes [id number] Apply to [facility] Sodium 9-08 area(s) 4 ity of (VOLTAREN) 00:00: (four) [place] 1 % gel 00 times Medical daily. Branch Apply 4 g QID on affected areas acetaminoph 2022-0 Yes [id number] 650mg Take 1 [facility] en 650 mg 9-08 tablet by ity o f CR tablet 00:00: mouth [place] 00 every 8 Medical (eight) Branch hours as needed for Pain or Fever. Diclofenac 2022-0 Yes [id number] Apply to [facility] Sodium 9-08 area(s) 4 ity of (VOLTAREN) 00:00: (four) [place] 1 % gel 00 times Medical daily. Branch Apply 4 g QID on affected areas acetaminoph 2022-0 Yes [id number] 650mg Take 1 [facility] en 650 mg 9-08 tablet by ity o f CR tablet 00:00: mouth [place] 00 every 8 Medical (eight) Branch hours as needed for Pain or Fever. Diclofenac 2022-0 Yes [id number] Apply to [facility] Sodium 9-08 area(s) 4 ity of (VOLTAREN) 00:00: (four) [place] 1 % gel 00 times Medical daily. Branch Apply 4 g QID on affected areas acetaminoph 2022-0 Yes [id number] 650mg Take 1 [facility] en 650 mg 9-08 tablet by ity o f CR tablet 00:00: mouth [place] 00 every 8 Medical (eight) Branch hours as needed for Pain or Fever. Diclofenac 2022-0 Yes [id number] Apply to [facility] Sodium 9-08 area(s) 4 ity of (VOLTAREN) 00:00: (four) [place] 1 % gel 00 times Medical daily. Branch Apply 4 g QID on affected areas acetaminoph 2022-0 Yes [id number] 650mg Take 1 [facility] en 650 mg 9-08 tablet by ity o f CR tablet 00:00: mouth [place] 00 every 8 Medical (eight) Branch hours as needed for Pain or Fever. Diclofenac 2022-0 Yes [id number] Apply to [facility] Sodium 9-08 area(s) 4 ity of (VOLTAREN) 00:00: (four) [place] 1 % gel 00 times Medical daily. Branch Apply 4 g QID on affected areas acetaminoph 2022-0 Yes [id number] 650mg Take 1 [facility] en 650 mg 9-08 tablet by ity o f CR tablet 00:00: mouth [place] 00 every 8 Medical (eight) Branch hours as needed for Pain or Fever. Diclofenac 2022-0 Yes [id number] Apply to [facility] Sodium 9-08 area(s) 4 ity of (VOLTAREN) 00:00: (four) [place] 1 % gel 00 times Medical daily. Branch Apply 4 g QID on affected areas acetaminoph 2022-0 Yes [id number] 650mg Take 1 [facility] en 650 mg 9-08 tablet by ity o f CR tablet 00:00: mouth [place] 00 every 8 Medical (eight) Branch hours as needed for Pain or Fever. Diclofenac 2-0 Yes [id number] Apply to [facility] Sodium 9-08 area(s) 4 ity of (VOLTAREN) 00:00: (four) [place] 1 % gel 00 times Medical daily. Branch Apply 4 g QID on affected areas acetaminoph 2-0 Yes [id number] 650mg Take 1 [facility] en 650 mg 9-08 tablet by ity o f CR tablet 00:00: mouth [place] 00 every 8 Medical (eight) Branch hours as needed for Pain or Fever. Diclofenac 2021-0 Yes [id number] Apply to [facility] Sodium 9-08 area(s) 4 ity of (VOLTAREN) 00:00: (four) [place] 1 % gel 00 times Medical daily. Branch Apply 4 g QID on affected areas acetaminoph 2021-0 Yes [id number] 650mg Take 1 [facility] en 650 mg 9-08 tablet by ity o f CR tablet 00:00: mouth [place] 00 every 8 Medical (eight) Branch hours as needed for Pain or Fever. Diclofenac 2021-0 Yes [id number] Apply to [facility] Sodium 9-08 area(s) 4 ity of (VOLTAREN) 00:00: (four) [place] 1 % gel 00 times Medical daily. Branch Apply 4 g QID on affected areas acetaminoph 2-0 Yes [id number] 650mg Take 1 [facility] en 650 mg 9-08 tablet by ity o f CR tablet 00:00: mouth [place] 00 every 8 Medical (eight) Branch hours as needed for Pain or Fever. Diclofenac 2-0 Yes [id number] Apply to [facility] Sodium 9-08 area(s) 4 ity of (VOLTAREN) 00:00: (four) [place] 1 % gel 00 times Medical daily. Branch Apply 4 g QID on affected areas acetaminoph 2022-0 Yes [id number] 650mg Take 1 [facility] en 650 mg 9-08 tablet by ity o f CR tablet 00:00: mouth [place] 00 every 8 Medical (eight) Branch hours as needed for Pain or Fever. Diclofenac 2-0 Yes [id number] Apply to [facility] Sodium 9-08 area(s) 4 ity of (VOLTAREN) 00:00: (four) [place] 1 % gel 00 times Medical daily. Branch Apply 4 g QID on affected areas acetaminoph 2022-0 Yes [id number] 650mg Take 1 [facility] en 650 mg 9-08 tablet by ity o f CR tablet 00:00: mouth [place] 00 every 8 Medical (eight) Branch hours as needed for Pain or Fever. Diclofenac 2022-0 Yes [id number] Apply to [facility] Sodium 9-08 area(s) 4 ity of (VOLTAREN) 00:00: (four) [place] 1 % gel 00 times Medical daily. Branch Apply 4 g QID on affected areas acetaminoph 2022-0 Yes [id number] 650mg Take 1 [facility] en 650 mg 9-08 tablet by ity o f CR tablet 00:00: mouth [place] 00 every 8 Medical (eight) Branch hours as needed for Pain or Fever. Diclofenac 2-0 Yes [id number] Apply to [facility] Sodium 9-08 area(s) 4 ity of (VOLTAREN) 00:00: (four) [place] 1 % gel 00 times Medical daily. Branch Apply 4 g QID on affected areas acetaminoph 2022-0 Yes [id number] 650mg Take 1 [facility] en 650 mg 9-08 tablet by ity o f CR tablet 00:00: mouth [place] 00 every 8 Medical (eight) Branch hours as needed for Pain or Fever. Diclofenac 2-0 Yes [id number] Apply to [facility] Sodium 9-08 area(s) 4 ity of (VOLTAREN) 00:00: (four) [place] 1 % gel 00 times Medical daily. Branch Apply 4 g QID on affected areas acetaminoph 2022-0 Yes [id number] 650mg Take 1 [facility] en 650 mg 9-08 tablet by ity o f CR tablet 00:00: mouth [place] 00 every 8 Medical (eight) Branch hours as needed for Pain or Fever. Diclofenac 2022-0 Yes [id number] Apply to [facility] Sodium 9-08 area(s) 4 ity of (VOLTAREN) 00:00: (four) [place] 1 % gel 00 times Medical daily. Branch Apply 4 g QID on affected areas acetaminoph 2022-0 Yes [id number] 650mg Take 1 [facility] en 650 mg 9-08 tablet by ity o f CR tablet 00:00: mouth [place] 00 every 8 Medical (eight) Branch hours as needed for Pain or Fever. Diclofenac 2022-0 Yes [id number] Apply to [facility] Sodium 9-08 area(s) 4 ity of (VOLTAREN) 00:00: (four) [place] 1 % gel 00 times Medical daily. Branch Apply 4 g QID on affected areas acetaminoph 2022-0 Yes [id number] 650mg Take 1 [facility] en 650 mg 9-08 tablet by ity o f CR tablet 00:00: mouth [place] 00 every 8 Medical (eight) Branch hours as needed for Pain or Fever. Diclofenac 2-0 Yes [id number] Apply to [facility] Sodium 9-08 area(s) 4 ity of (VOLTAREN) 00:00: (four) [place] 1 % gel 00 times Medical daily. Branch Apply 4 g QID on affected areas acetaminoph 2-0 Yes [id number] 650mg Take 1 [facility] en 650 mg 9-08 tablet by ity o f CR tablet 00:00: mouth [place] 00 every 8 Medical (eight) Branch hours as needed for Pain or Fever. Diclofenac 2021-0 Yes [id number] Apply to [facility] Sodium 9-08 area(s) 4 ity of (VOLTAREN) 00:00: (four) [place] 1 % gel 00 times Medical daily. Branch Apply 4 g QID on affected areas acetaminoph 2-0 Yes [id number] 650mg Take 1 [facility] en 650 mg 9-08 tablet by ity o f CR tablet 00:00: mouth [place] 00 every 8 Medical (eight) Branch hours as needed for Pain or Fever. Diclofenac 2-0 Yes [id number] Apply to [facility] Sodium 9-08 area(s) 4 ity of (VOLTAREN) 00:00: (four) [place] 1 % gel 00 times Medical daily. Branch Apply 4 g QID on affected areas acetaminoph 2-0 Yes [id number] 650mg Take 1 [facility] en 650 mg 9-08 tablet by ity o f CR tablet 00:00: mouth [place] 00 every 8 Medical (eight) Branch hours as needed for Pain or Fever. Diclofenac 2-0 Yes [id number] Apply to [facility] Sodium 9-08 area(s) 4 ity of (VOLTAREN) 00:00: (four) [place] 1 % gel 00 times Medical daily. Branch Apply 4 g QID on affected areas acetaminoph 2022-0 Yes [id number] 650mg Take 1 [facility] en 650 mg 9-08 tablet by ity o f CR tablet 00:00: mouth [place] 00 every 8 Medical (eight) Branch hours as needed for Pain or Fever. Diclofenac 2022-0 Yes [id number] Apply to [facility] Sodium 9-08 area(s) 4 ity of (VOLTAREN) 00:00: (four) [place] 1 % gel 00 times Medical daily. Branch Apply 4 g QID on affected areas acetaminoph 2022-0 Yes [id number] 650mg Take 1 [facility] en 650 mg 9-08 tablet by ity o f CR tablet 00:00: mouth [place] 00 every 8 Medical (eight) Branch hours as needed for Pain or Fever. Diclofenac 2-0 Yes [id number] Apply to [facility] Sodium 9-08 area(s) 4 ity of (VOLTAREN) 00:00: (four) [place] 1 % gel 00 times Medical daily. Branch Apply 4 g QID on affected areas acetaminoph 2-0 Yes [id number] 650mg Take 1 [facility] en 650 mg 9-08 tablet by ity o f CR tablet 00:00: mouth [place] 00 every 8 Medical (eight) Branch hours as needed for Pain or Fever. Diclofenac 2-0 Yes [id number] Apply to [facility] Sodium 9-08 area(s) 4 ity of (VOLTAREN) 00:00: (four) [place] 1 % gel 00 times Medical daily. Branch Apply 4 g QID on affected areas acetaminoph 2-0 Yes [id number] 650mg Take 1 [facility] en 650 mg 9-08 tablet by ity o f CR tablet 00:00: mouth [place] 00 every 8 Medical (eight) Branch hours as needed for Pain or Fever. Diclofenac 2-0 Yes [id number] Apply to [facility] Sodium 9-08 area(s) 4 ity of (VOLTAREN) 00:00: (four) [place] 1 % gel 00 times Medical daily. Branch Apply 4 g QID on affected areas acetaminoph 2022-0 Yes [id number] 650mg Take 1 [facility] 650 mg 9-08 tablet by ity o f CR tablet 00:00: mouth [place] 00 every 8 Medical (eight) Branch hours as needed for Pain or Fever. Diclofenac 2022-0 Yes [id number] Apply to [facility] Sodium 9-08 area(s) 4 ity of (VOLTAREN) 00:00: (four) [place] 1 % gel 00 times Medical daily. Branch Apply 4 g QID on affected areas acetaminoph 2022-0 Yes [id number] 650mg Take 1 [facility] 650 mg 9-08 tablet by ity o f CR tablet 00:00: mouth [place] 00 every 8 Medical (eight) Branch hours as needed for Pain or Fever. Diclofenac 2-0 Yes [id number] Apply to [facility] Sodium 9-08 area(s) 4 ity of (VOLTAREN) 00:00: (four) [place] 1 % gel 00 times Medical daily. Branch Apply 4 g QID on affected areas acetaminoph 2022-0 Yes [id number] 650mg Take 1 [facility] 650 mg 9-08 tablet by ity o f CR tablet 00:00: mouth [place] 00 every 8 Medical (eight) Branch hours as needed for Pain or Fever. Diclofenac 2021-0 Yes [id number] Apply to [facility] Sodium 9-08 area(s) 4 ity of (VOLTAREN) 00:00: (four) [place] 1 % gel 00 times Medical daily. Branch Apply 4 g QID on affected areas acetaminoph 2-0 Yes [id number] 650mg Take 1 [facility] 650 mg 9-08 tablet by ity o f CR tablet 00:00: mouth [place] 00 every 8 Medical (eight) Branch hours as needed for Pain or Fever. Diclofenac 2021-0 Yes [id number] Apply to [facility] Sodium 9-08 area(s) 4 ity of (VOLTAREN) 00:00: (four) [place] 1 % gel 00 times Medical daily. Branch Apply 4 g QID on affected areas acetaminoph 2022-0 Yes [id number] 650mg Take 1 [facility] 650 mg 9-08 tablet by ity o f CR tablet 00:00: mouth [place] 00 every 8 Medical (eight) Branch hours as needed for Pain or Fever. Diclofenac 2021-0 Yes [id number] Apply to [facility] Sodium 9-08 area(s) 4 ity of (VOLTAREN) 00:00: (four) [place] 1 % gel 00 times Medical daily. Branch Apply 4 g QID on affected areas acetaminoph 2022-0 Yes [id number] 650mg Take 1 [facility] 650 mg 9-08 tablet by ity o f CR tablet 00:00: mouth [place] 00 every 8 Medical (eight) Branch hours as needed for Pain or Fever. Diclofenac 2-0 Yes [id number] Apply to [facility] Sodium 9-08 area(s) 4 ity of (VOLTAREN) 00:00: (four) [place] 1 % gel 00 times Medical daily. Branch Apply 4 g QID on affected areas acetaminoph 2021-0 Yes [id number] 650mg Take 1 [facility] 650 mg 9-08 tablet by ity o f CR tablet 00:00: mouth [place] 00 every 8 Medical (eight) Branch hours as needed for Pain or Fever. Diclofenac 2021-0 Yes [id number] Apply to [facility] Sodium 9-08 area(s) 4 ity of (VOLTAREN) 00:00: (four) [place] 1 % gel 00 times Medical daily. Branch Apply 4 g QID on affected areas acetaminoph 2021-0 Yes [id number] 650mg Take 1 [facility] 650 mg 9-08 tablet by ity o f CR tablet 00:00: mouth [place] 00 every 8 Medical (eight) Branch hours as needed for Pain or Fever. Diclofenac 2021-0 Yes [id number] Apply to [facility] Sodium 9-08 area(s) 4 ity of (VOLTAREN) 00:00: (four) [place] 1 % gel 00 times Medical daily. Branch Apply 4 g QID on affected areas acetaminoph 2021-0 Yes [id number] 650mg Take 1 [facility] 650 mg 9-08 tablet by ity o f CR tablet 00:00: mouth [place] 00 every 8 Medical (eight) Branch hours as needed for Pain or Fever. doxycycline 2021-0 2021- No [id number] 100mg Take 1 [facility] hyclate 100 9-08 10-13 tablet by it y of mg tablet 00:00: 00:00 mouth in [place] 00 :00 the Medical morning Branch and 1 tablet in the evening. doxycycline 2021-0 2021- No [id number] 100mg Take 1 [facility] hyclate 100 9-08 10-13 tablet by it y of mg tablet 00:00: 00:00 mouth [place] 00 :00 the Medical morning Branch and 1 tablet in the evening. LEVOTHYROXI 2021-0 Yes [id number] TAKE ONE [facility] NE 25 mcg 9-07 (1) TABLET ity of tablet 00:00: BY MOUTH [place] 00 EVERY Medical MORNING. Branch LEVOTHYROXI 2021-0 Yes [id number] TAKE ONE [facility] NE 25 mcg 9-07 (1) TABLET ity of tablet 00:00: BY MOUTH [place] 00 EVERY Medical MORNING. Branch LEVOTHYROXI 2021-0 Yes [id number] TAKE ONE [facility] NE 25 mcg 9-07 (1) TABLET ity of tablet 00:00: BY MOUTH [place] 00 EVERY Medical MORNING. Branch LEVOTHYROXI 2021-0 Yes [id number] TAKE ONE [facility] NE 25 mcg 9-07 (1) TABLET ity of tablet 00:00: BY MOUTH [place] 00 EVERY Medical MORNING. Branch LEVOTHYROXI 2-0 Yes [id number] TAKE ONE [facility] NE 25 mcg 9-07 (1) TABLET ity of tablet 00:00: BY MOUTH [place] 00 EVERY Medical MORNING. Branch LEVOTHYROXI 2021-0 Yes [id number] TAKE ONE [facility] NE 25 mcg 9-07 (1) TABLET ity of tablet 00:00: BY MOUTH [place] 00 EVERY Medical MORNING. Branch LEVOTHYROXI 2021-0 Yes [id number] TAKE ONE [facility] NE 25 mcg 9-07 (1) TABLET ity of tablet 00:00: BY MOUTH [place] 00 EVERY Medical MORNING. Branch LEVOTHYROXI 2021-0 Yes [id number] TAKE ONE [facility] NE 25 mcg 9-07 (1) TABLET ity of tablet 00:00: BY MOUTH [place] 00 EVERY Medical MORNING. Branch LEVOTHYROXI 2021-0 Yes [id number] TAKE ONE [facility] NE 25 mcg 9-07 (1) TABLET ity of tablet 00:00: BY MOUTH [place] 00 EVERY Medical MORNING. Branch LEVOTHYROXI 2021-0 Yes [id number] TAKE ONE [facility] NE 25 mcg 9-07 (1) TABLET ity of tablet 00:00: BY MOUTH [place] 00 EVERY Medical MORNING. Branch LEVOTHYROXI 2-0 Yes [id number] TAKE ONE [facility] NE 25 mcg 9-07 (1) TABLET ity of tablet 00:00: BY MOUTH [place] 00 EVERY Medical MORNING. Branch LEVOTHYROXI 2021-0 Yes [id number] TAKE ONE [facility] NE 25 mcg 9-07 (1) TABLET ity of tablet 00:00: BY MOUTH [place] 00 EVERY Medical MORNING. Branch LEVOTHYROXI 2-0 Yes [id number] TAKE ONE [facility] NE 25 mcg 9-07 (1) TABLET ity of tablet 00:00: BY MOUTH [place] 00 EVERY Medical MORNING. Branch LEVOTHYROXI 2-0 Yes [id number] TAKE ONE [facility] NE 25 mcg 9-07 (1) TABLET ity of tablet 00:00: BY MOUTH [place] 00 EVERY Medical MORNING. Branch LEVOTHYROXI 2-0 Yes [id number] TAKE ONE [facility] NE 25 mcg 9-07 (1) TABLET ity of tablet 00:00: BY MOUTH [place] 00 EVERY Medical MORNING. Branch LEVOTHYROXI 2-0 Yes [id number] TAKE ONE [facility] NE 25 mcg 9-07 (1) TABLET ity of tablet 00:00: BY MOUTH [place] 00 EVERY Medical MORNING. Branch LEVOTHYROXI 2-0 Yes [id number] TAKE ONE [facility] NE 25 mcg 9-07 (1) TABLET ity of tablet 00:00: BY MOUTH [place] 00 EVERY Medical MORNING. Branch LEVOTHYROXI 2021-0 Yes [id number] TAKE ONE [facility] NE 25 mcg 9-07 (1) TABLET ity of tablet 00:00: BY MOUTH [place] 00 EVERY Medical MORNING. Branch LEVOTHYROXI 2-0 Yes [id number] TAKE ONE [facility] NE 25 mcg 9-07 (1) TABLET ity of tablet 00:00: BY MOUTH [place] 00 EVERY Medical MORNING. Branch LEVOTHYROXI 2-0 Yes [id number] TAKE ONE [facility] NE 25 mcg 9-07 (1) TABLET ity of tablet 00:00: BY MOUTH [place] 00 EVERY Medical MORNING. Branch LEVOTHYROXI 2021-0 Yes [id number] TAKE ONE [facility] NE 25 mcg 9-07 (1) TABLET ity of tablet 00:00: BY MOUTH [place] 00 EVERY Medical MORNING. Branch LEVOTHYROXI 2-0 Yes [id number] TAKE ONE [facility] NE 25 mcg 9-07 (1) TABLET ity of tablet 00:00: BY MOUTH [place] 00 EVERY Medical MORNING. Branch LEVOTHYROXI 2-0 Yes [id number] TAKE ONE [facility] NE 25 mcg 9-07 (1) TABLET ity of tablet 00:00: BY MOUTH [place] 00 EVERY Medical MORNING. Branch LEVOTHYROXI 2-0 Yes [id number] TAKE ONE [facility] NE 25 mcg 9-07 (1) TABLET ity of tablet 00:00: BY MOUTH [place] 00 EVERY Medical MORNING. Branch LEVOTHYROXI 2022-0 Yes [id number] TAKE ONE [facility] NE 25 mcg 9-07 (1) TABLET ity of tablet 00:00: BY MOUTH [place] 00 EVERY Medical MORNING. Branch LEVOTHYROXI 2022-0 2023- No [id number] TAKE ONE [facility] NE 25 mcg 12-22 03-09 (1) TABLET ity of tablet 00:00: 00:00 BY MOUTH [place] 00 :00 EVERY Medical MORNING. Branch adalimumab Yes [id number] Start [facility] 40 mg/0.4 8-24 160mg SC x ity of mL 00:00: 1 on Day [place] injection 00 1, then Medical 80mg SC x Branch 1 on day 15, then 40mg SC qWeek. lidocaine 5 Yes [id number] Apply 2g [facility] % ointment 8-24 to ity of 00:00: affected [place] 00 areas BID Medical PRN Branch amitriptyli Yes [id number] 10mg Take 1 [facility] ne 10 mg 8-24 tablet by ity of tablet 00:00: mouth at [place] 00 bedtime. Medical Branch tiZANidine Yes [id number] 2mg Take 1 [facility] 2 mg tablet 8-24 tablet by ity of 00:00: mouth [place] 00 every 8 Medical (eight) Branch hours as needed (muscle spasms). adalimumab Yes [id number] Start [facility] [place] 40 mg/0.4 8-24 160mg SC x ity of mL 00:00: 1 on Day [place] injection 00 1, then Medical 80mg SC x Branch 1 on day 15, then 40mg SC qWeek. lidocaine Yes [id number] Apply 2g [facility] % ointment 8-24 to ity of 00:00: affected [place] 00 areas BID Medical PRN Branch amitriptyli Yes [id number] 10mg Take 1 [facility] ne 10 mg 8-24 tablet by ity of tablet 00:00: mouth at [place] 00 bedtime. Medical Branch tiZANidine Yes [id number] 2mg Take 1 [facility] n[facility] 2 mg tablet 8-24 tablet by ity of 00:00: mouth [place] 00 every 8 Medical (eight) Branch hours as needed (muscle spasms). adalimumab Yes [id number] Start [facility] [place] 40 mg/0.4 8-24 160mg SC x ity of mL 00:00: 1 on Day [place] injection 00 1, then Medical 80mg SC x Branch 1 on day 15, then 40mg SC qWeek. lidocaine 5 Yes [id number] Apply 2g [facility] % ointment 8-24 to ity of 00:00: affected [place] 00 areas BID Medical PRN Branch amitriptyli Yes [id number] 10mg Take 1 [facility] ne 10 mg 8-24 tablet by ity of tablet 00:00: mouth at [place] 00 bedtime. Medical Branch tiZANidine Yes [id number] 2mg Take 1 [facility] nivers 2 mg tablet 8-24 tablet by ity of 00:00: mouth [place] 00 every 8 Medical (eight) Branch hours as needed (muscle spasms). adalimumab Yes [id number] Start [facility] [place] 40 mg/0.4 8-24 160mg SC x ity of mL 00:00: 1 on Day [place] injection 00 1, then Medical 80mg SC x Branch 1 on day 15, then 40mg SC qWeek. lidocaine 5 Yes [id number] Apply 2g [facility] % ointment 8-24 to ity of 00:00: affected 00 areas BID Medical PRN Branch amitriptyli Yes [id number] 10mg Take 1 [facility] ne 10 mg 8-24 tablet by ity of tablet 00:00: mouth at [place] 00 bedtime. Medical Branch tiZANidine Yes [id number] 2mg Take 1 [facility] n[facility] 2 mg tablet 8-24 tablet by ity of 00:00: mouth [place] 00 every 8 Medical (eight) Branch hours as needed (muscle spasms). adalimumab Yes [id number] Start [facility] [place] 40 mg/0.4 8-24 160mg SC x ity of mL 00:00: 1 on Day [place] injection 00 1, then Medical 80mg SC x Branch 1 on day 15, then 40mg SC qWeek. lidocaine 5 Yes [id number] Apply 2g [facility] % ointment 8-24 to ity of 00:00: affected [place] 00 areas BID Medical PRN Branch amitriptyli 0 Yes [id number] 10mg Take 1 [facility] ne 10 mg 8-24 tablet by ity of tablet 00:00: mouth at [place] 00 bedtime. Medical Branch tiZANidine 0 Yes [id number] 2mg Take 1 [facility] 2 mg tablet 8-24 tablet by ity of 00:00: mouth [place] 00 every 8 Medical (eight) Branch hours as needed (muscle spasms). adalimumab Yes [id number] Start [facility] [place] 40 mg/0.4 8-24 160mg SC x ity of mL 00:00: 1 on Day [place] injection 00 1, then Medical 80mg SC x Branch 1 on day 15, then 40mg SC qWeek. lidocaine 5 Yes [id number] Apply 2g [facility] % ointment 8-24 to ity of 00:00: affected [place] 00 areas BID Medical PRN Branch amitriptyli Yes [id number] 10mg Take 1 [facility] ne 10 mg 8-24 tablet by ity of tablet 00:00: mouth at [place] 00 bedtime. Medical Branch tiZANidine Yes [id number] 2mg Take 1 [facility] n[facility] 2 mg tablet 8-24 tablet by ity of 00:00: mouth [place] 00 every 8 Medical (eight) Branch hours as needed (muscle spasms). adalimumab Yes [id number] Start [facility] [place] 40 mg/0.4 8-24 160mg SC x ity of mL 00:00: 1 on Day [place] injection 00 1, then Medical 80mg SC x Branch 1 on day 15, then 40mg SC qWeek. lidocaine Yes [id number] Apply 2g [facility] % ointment 8-24 to ity of 00:00: affected [place] 00 areas BID Medical PRN Branch adalimumab Yes [id number] Start Un [facility] 40 mg/0.4 8-24 160mg SC x ity of mL 00:00: 1 on Day [place] injection 00 1, then Medical 80mg SC x Branch 1 on day 15, then 40mg SC qWeek. lidocaine Yes [id number] Apply 2g [facility] % ointment 8-24 to ity of 00:00: affected [place] 00 areas BID Medical PRN Branch adalimumab Yes [id number] Start Un [facility] 40 mg/0.4 8-24 160mg SC x ity of mL 00:00: 1 on Day [place] injection 00 1, then Medical 80mg SC x Branch 1 on day 15, then 40mg SC qWeek. lidocaine 5 Yes [id number] Apply 2g [facility] % ointment 8-24 to ity of 00:00: affected areas BID Medical PRN Branch adalimumab Yes [id number] Start Un [place] 40 mg/0.4 8-24 160mg SC x ity of mL 00:00: 1 on Day [place] injection 00 1, then Medical 80mg SC x Branch 1 on day 15, then 40mg SC qWeek. lidocaine Yes [id number] Apply 2g [facility] % ointment 8-24 to ity of 00:00: affected areas BID Medical PRN Branch adalimumab Yes [id number] Start Un [place] 40 mg/0.4 8-24 160mg SC x ity of mL 00:00: 1 on Day [place] injection 00 1, then Medical 80mg SC x Branch 1 on day 15, then 40mg SC qWeek. lidocaine Yes [id number] Apply 2g [facility] % ointment 8-24 to ity of 00:00: affected areas BID Medical PRN Branch adalimumab Yes [id number] Start Un [place] 40 mg/0.4 8-24 160mg SC x ity of mL 00:00: 1 on Day [place] injection 00 1, then Medical 80mg SC x Branch 1 on day 15, then 40mg SC qWeek. lidocaine Yes [id number] Apply 2g [facility] % ointment 8-24 to ity of 00:00: affected areas BID Medical PRN Branch adalimumab Yes [id number] Start Un [place] 40 mg/0.4 8-24 160mg SC x ity of mL 00:00: 1 on Day [place] injection 00 1, then Medical 80mg SC x Branch 1 on day 15, then 40mg SC qWeek. lidocaine Yes [id number] Apply 2g [facility] % ointment 8-24 to ity of 00:00: affected areas BID Medical PRN Branch adalimumab Yes [id number] Start [facility] [place] 40 mg/0.4 8-24 160mg SC x ity of mL 00:00: 1 on Day [place] injection 00 1, then Medical 80mg SC x Branch 1 on day 15, then 40mg SC qWeek. lidocaine 5 Yes [id number] Apply 2g [facility] % ointment 8-24 to ity of 00:00: affected 00 areas BID Medical PRN Branch adalimumab 2021-0 Yes [id number] Start [facility] [place] 40 mg/0.4 8-24 160mg SC x ity of mL 00:00: 1 on Day [place] injection 00 1, then Medical 80mg SC x Branch 1 on day 15, then 40mg SC qWeek. lidocaine 5 2021-0 Yes [id number] Apply 2g [facility] % ointment 8-24 to ity of 00:00: affected 00 areas BID Medical PRN Branch adalimumab 2021- Yes [id number] Start [facility] [place] 40 mg/0.4 8-24 160mg SC x ity of mL 00:00: 1 on Day [place] injection 00 1, then Medical 80mg SC x Branch 1 on day 15, then 40mg SC qWeek. lidocaine 5 2021- Yes [id number] Apply 2g [facility] % ointment 8-24 to ity of 00:00: affected 00 areas BID Medical PRN Branch adalimumab 2021- Yes [id number] Start [facility] [place] 40 mg/0.4 8-24 160mg SC x ity of mL 00:00: 1 on Day [place] injection 00 1, then Medical 80mg SC x Branch 1 on day 15, then 40mg SC qWeek. lidocaine 5 2021-0 Yes [id number] Apply 2g [facility] % ointment 8-24 to ity of 00:00: affected 00 areas BID Medical PRN Branch adalimumab 2021- Yes [id number] Start [facility] [place] 40 mg/0.4 8-24 160mg SC x ity of mL 00:00: 1 on Day [place] injection 00 1, then Medical 80mg SC x Branch 1 on day 15, then 40mg SC qWeek. lidocaine 5 2021- Yes [id number] Apply 2g [facility] % ointment 8-24 to ity of 00:00: affected 00 areas BID Medical PRN Branch adalimumab 2021- Yes [id number] Start [facility] [place] 40 mg/0.4 8-24 160mg SC x ity of mL 00:00: 1 on Day [place] injection 00 1, then Medical 80mg SC x Branch 1 on day 15, then 40mg SC qWeek. lidocaine 5 2021- Yes [id number] Apply 2g [facility] % ointment 8-24 to ity of 00:00: affected [place] 00 areas BID Medical PRN Branch adalimumab Yes [id number] Start Un [facility] 40 mg/0.4 8-24 160mg SC x ity of mL 00:00: 1 on Day [place] injection 00 1, then Medical 80mg SC x Branch 1 on day 15, then 40mg SC qWeek. lidocaine 5 Yes [id number] Apply 2g [facility] % ointment 8-24 to ity of 00:00: affected 00 areas BID Medical PRN Branch adalimumab Yes [id number] Start [facility] [place] 40 mg/0.4 8-24 160mg SC x ity of mL 00:00: 1 on Day [place] injection 00 1, then Medical 80mg SC x Branch 1 on day 15, then 40mg SC qWeek. lidocaine 5 Yes [id number] Apply 2g [facility] % ointment 8-24 to ity of 00:00: affected 00 areas BID Medical PRN Branch adalimumab Yes [id number] Start [facility] [place] 40 mg/0.4 8-24 160mg SC x ity of mL 00:00: 1 on Day [place] injection 00 1, then Medical 80mg SC x Branch 1 on day 15, then 40mg SC qWeek. lidocaine Yes [id number] Apply 2g [facility] % ointment 8-24 to ity of 00:00: affected 00 areas BID Medical PRN Branch adalimumab Yes [id number] Start [facility] [place] 40 mg/0.4 8-24 160mg SC x ity of mL 00:00: 1 on Day [place] injection 00 1, then Medical 80mg SC x Branch 1 on day 15, then 40mg SC qWeek. lidocaine 5 Yes [id number] Apply 2g [facility] % ointment 8-24 to ity of 00:00: affected 00 areas BID Medical PRN Branch adalimumab Yes [id number] Start [facility] [place] 40 mg/0.4 8-24 160mg SC x ity of mL 00:00: 1 on Day [place] injection 00 1, then Medical 80mg SC x Branch 1 on day 15, then 40mg SC qWeek. lidocaine 5 Yes [id number] Apply 2g [facility] % ointment 8-24 to ity of 00:00: affected 00 areas BID Medical PRN Branch adalimumab Yes [id number] Start [facility] 40 mg/0.4 8-24 160mg SC x ity of mL 00:00: 1 on Day [place] injection 00 1, then Medical 80mg SC x Branch 1 on day 15, then 40mg SC qWeek. lidocaine Yes [id number] Apply 2g [facility] % ointment 8-24 to ity of 00:00: affected 00 areas BID Medical PRN Branch adalimumab Yes [id number] Start [facility] 40 mg/0.4 8-24 160mg SC x ity of mL 00:00: 1 on Day [place] injection 00 1, then Medical 80mg SC x Branch 1 on day 15, then 40mg SC qWeek. lidocaine Yes [id number] Apply 2g [facility] % ointment 8-24 to ity of 00:00: affected [place] 00 areas BID Medical PRN Branch adalimumab Yes [id number] Start Un [facility] 40 mg/0.4 8-24 160mg SC x ity of mL 00:00: 1 on Day [place] injection 00 , then Medical 80mg SC x Branch 1 on day 15, then 40mg SC qWeek. lidocaine Yes [id number] Apply 2g [facility] % ointment 8-24 to ity of 00:00: affected 00 areas BID Medical PRN Branch adalimumab Yes [id number] Start [facility] 40 mg/0.4 8-24 160mg SC x ity of mL 00:00: 1 on Day [place] injection 00 1, then Medical 80mg SC x Branch 1 on day 15, then 40mg SC qWeek. lidocaine Yes [id number] Apply 2g [facility] % ointment 8-24 to ity of 00:00: affected 00 areas BID Medical PRN Branch adalimumab Yes [id number] Start [facility] 40 mg/0.4 8-24 160mg SC x ity of mL 00:00: 1 on Day [place] injection 00 1, then Medical 80mg SC x Branch 1 on day 15, then 40mg SC qWeek. lidocaine 5 Yes [id number] Apply 2g [facility] % ointment 8-24 to ity of 00:00: affected 00 areas BID Medical PRN Branch adalimumab Yes [id number] Start [facility] 40 mg/0.4 8-24 160mg SC x ity of mL 00:00: 1 on Day [place] injection 00 1, then Medical 80mg SC x Branch 1 on day 15, then 40mg SC qWeek. lidocaine Yes [id number] Apply 2g [facility] % ointment 8-24 to ity of 00:00: affected [place] 00 areas BID Medical PRN Branch adalimumab Yes [id number] Start [facility] 40 mg/0.4 8-24 160mg SC x ity of mL 00:00: 1 on Day [place] injection 00 1, then Medical 80mg SC x Branch 1 on day 15, then 40mg SC qWeek. lidocaine Yes [id number] Apply 2g [facility] % ointment 8-24 to ity of 00:00: affected [place] 00 areas BID Medical PRN Branch adalimumab Yes [id number] Start Un [facility] 40 mg/0.4 8-24 160mg SC x ity of mL 00:00: 1 on Day [place] injection 00 1, then Medical 80mg SC x Branch 1 on day 15, then 40mg SC qWeek. lidocaine Yes [id number] Apply 2g [facility] % ointment 8-24 to ity of 00:00: affected 00 areas BID Medical PRN Branch adalimumab Yes [id number] Start [facility] 40 mg/0.4 8-24 160mg SC x ity of mL 00:00: 1 on Day [place] injection 00 1, then Medical 80mg SC x Branch 1 on day 15, then 40mg SC qWeek. lidocaine Yes [id number] Apply 2g [facility] % ointment 8-24 to ity of 00:00: affected [place] 00 areas BID Medical PRN Branch adalimumab Yes [id number] Start Un [facility] 40 mg/0.4 8-24 160mg SC x ity of mL 00:00: 1 on Day [place] injection 00 1, then Medical 80mg SC x Branch 1 on day 15, then 40mg SC qWeek. lidocaine Yes [id number] Apply 2g [facility] % ointment 8-24 to ity of 00:00: affected 00 areas BID Medical PRN Branch adalimumab Yes [id number] Start [facility] 40 mg/0.4 8-24 160mg SC x ity of mL 00:00: 1 on Day [place] injection 00 1, then Medical 80mg SC x Branch 1 on day 15, then 40mg SC qWeek. lidocaine Yes [id number] Apply 2g [facility] % ointment 8-24 to ity of 00:00: affected [place] 00 areas BID Medical PRN Branch adalimumab Yes [id number] Start [facility] 40 mg/0.4 8-24 160mg SC x ity of mL 00:00: 1 on Day [place] injection 00 1, then Medical 80mg SC x Branch 1 on day 15, then 40mg SC qWeek. lidocaine Yes [id number] Apply 2g [facility] % ointment 8-24 to ity of 00:00: affected [place] 00 areas BID Medical PRN Branch adalimumab Yes [id number] Start [facility] 40 mg/0.4 8-24 160mg SC x ity of mL 00:00: 1 on Day [place] injection 00 1, then Medical 80mg SC x Branch 1 on day 15, then 40mg SC qWeek. lidocaine Yes [id number] Apply 2g [facility] % ointment 8-24 to ity of 00:00: affected 00 areas BID Medical PRN Branch adalimumab Yes [id number] Start [facility] 40 mg/0.4 8-24 160mg SC x ity of mL 00:00: 1 on Day [place] injection 00 1, then Medical 80mg SC x Branch 1 on day 15, then 40mg SC qWeek. lidocaine Yes [id number] Apply 2g [facility] % ointment 8-24 to ity of 00:00: affected [place] 00 areas BID Medical PRN Branch adalimumab Yes [id number] Start [facility] 40 mg/0.4 8-24 160mg SC x ity of mL 00:00: 1 on Day [place] injection 00 1, then Medical 80mg SC x Branch 1 on day 15, then 40mg SC qWeek. lidocaine 5 Yes [id number] Apply 2g [facility] % ointment 8-24 to ity of 00:00: affected 00 areas BID Medical PRN Branch adalimumab Yes [id number] Start [facility] 40 mg/0.4 8-24 160mg SC x ity of mL 00:00: 1 on Day [place] injection 00 1, then Medical 80mg SC x Branch 1 on day 15, then 40mg SC qWeek. lidocaine Yes [id number] Apply 2g [facility] % ointment 8-24 to ity of 00:00: affected [place] 00 areas BID Medical PRN Branch adalimumab Yes [id number] Start [facility] 40 mg/0.4 8-24 160mg SC x ity of mL 00:00: 1 on Day [place] injection 00 1, then Medical 80mg SC x Branch 1 on day 15, then 40mg SC qWeek. lidocaine Yes [id number] Apply 2g [facility] % ointment 8-24 to ity of 00:00: affected [place] 00 areas BID Medical PRN Branch adalimumab Yes [id number] Start [facility] 40 mg/0.4 8-24 160mg SC x ity of mL 00:00: 1 on Day [place] injection 00 , then Medical 80mg SC x Branch 1 on day 15, then 40mg SC qWeek. lidocaine Yes [id number] Apply 2g [facility] % ointment 8-24 to ity of 00:00: affected 00 areas BID Medical PRN Branch adalimumab Yes [id number] Start [facility] 40 mg/0.4 8-24 160mg SC x ity of mL 00:00: 1 on Day [place] injection 00 1, then Medical 80mg SC x Branch 1 on day 15, then 40mg SC qWeek. lidocaine Yes [id number] Apply 2g [facility] % ointment 8-24 to ity of 00:00: affected [place] 00 areas BID Medical PRN Branch adalimumab Yes [id number] Start [facility] 40 mg/0.4 8-24 160mg SC x ity of mL 00:00: 1 on Day [place] injection 00 1, then Medical 80mg SC x Branch 1 on day 15, then 40mg SC qWeek. lidocaine 5 Yes [id number] Apply 2g [facility] % ointment 8-24 to ity of 00:00: affected [place] 00 areas BID Medical PRN Branch adalimumab 2021- Yes [id number] Start [facility] 40 mg/0.4 8-24 160mg SC x ity of mL 00:00: 1 on Day [place] injection 00 1, then Medical 80mg SC x Branch 1 on day 15, then 40mg SC qWeek. lidocaine 5 Yes [id number] Apply 2g [facility] % ointment 8-24 to ity of 00:00: affected [place] 00 areas BID Medical PRN Branch adalimumab Yes [id number] Start [facility] 40 mg/0.4 8-24 160mg SC x ity of mL 00:00: 1 on Day [place] injection 00 1, then Medical 80mg SC x Branch 1 on day 15, then 40mg SC qWeek. lidocaine Yes [id number] Apply 2g [facility] % ointment 8-24 to ity of 00:00: affected 00 areas BID Medical PRN Branch adalimumab Yes [id number] Start [facility] 40 mg/0.4 8-24 160mg SC x ity of mL 00:00: 1 on Day [place] injection 00 1, then Medical 80mg SC x Branch 1 on day 15, then 40mg SC qWeek. lidocaine Yes [id number] Apply 2g [facility] % ointment 8-24 to ity of 00:00: affected 00 areas BID Medical PRN Branch adalimumab Yes [id number] Start [facility] [place] 40 mg/0.4 8-24 160mg SC x ity of mL 00:00: 1 on Day [place] injection 00 1, then Medical 80mg SC x Branch 1 on day 15, then 40mg SC qWeek. lidocaine Yes [id number] Apply 2g [facility] % ointment 8-24 to ity of 00:00: affected 00 areas BID Medical PRN Branch adalimumab 2021- Yes [id number] Start [facility] [place] 40 mg/0.4 8-24 160mg SC x ity of mL 00:00: 1 on Day [place] injection 00 1, then Medical 80mg SC x Branch 1 on day 15, then 40mg SC qWeek. lidocaine Yes [id number] Apply 2g [facility] % ointment 8-24 to ity of 00:00: affected [place] 00 areas BID Medical PRN Branch adalimumab 2021- Yes [id number] Start [facility] [place] 40 mg/0.4 8-24 160mg SC x ity of mL 00:00: 1 on Day [place] injection 00 1, then Medical 80mg SC x Branch 1 on day 15, then 40mg SC qWeek. lidocaine 5 Yes [id number] Apply 2g [facility] % ointment 8-24 to ity of 00:00: affected [place] 00 areas BID Medical PRN Branch adalimumab 2021-0 Yes [id number] Start [facility] [place] 40 mg/0.4 8-24 160mg SC x ity of mL 00:00: 1 on Day [place] injection 00 1, then Medical 80mg SC x Branch 1 on day 15, then 40mg SC qWeek. lidocaine Yes [id number] Apply 2g [facility] % ointment 8-24 to ity of 00:00: affected [place] 00 areas BID Medical PRN Branch adalimumab Yes [id number] Start [facility] 40 mg/0.4 8-24 160mg SC x ity of mL 00:00: 1 on Day [place] injection 00 1, then Medical 80mg SC x Branch 1 on day 15, then 40mg SC qWeek. lidocaine Yes [id number] Apply 2g [facility] % ointment 8-24 to ity of 00:00: affected 00 areas BID Medical PRN Branch adalimumab 2021- Yes [id number] Start [facility] [place] 40 mg/0.4 8-24 160mg SC x ity of mL 00:00: 1 on Day [place] injection 00 1, then Medical 80mg SC x Branch 1 on day 15, then 40mg SC qWeek. lidocaine Yes [id number] Apply 2g [facility] % ointment 8-24 to ity of 00:00: affected 00 areas BID Medical PRN Branch adalimumab 2021- Yes [id number] Start [facility] [place] 40 mg/0.4 8-24 160mg SC x ity of mL 00:00: 1 on Day [place] injection 00 1, then Medical 80mg SC x Branch 1 on day 15, then 40mg SC qWeek. lidocaine 5 2021- Yes [id number] Apply 2g [facility] % ointment 8-24 to ity of 00:00: affected [place] 00 areas BID Medical PRN Branch adalimumab 2021- Yes [id number] Start [facility] 40 mg/0.4 8-24 160mg SC x ity of mL 00:00: 1 on Day [place] injection 00 1, then Medical 80mg SC x Branch 1 on day 15, then 40mg SC qWeek. lidocaine 5 2021-0 Yes [id number] Apply 2g [facility] % ointment 8-24 to ity of 00:00: affected 00 areas BID Medical PRN Branch adalimumab Yes [id number] Start [facility] [place] 40 mg/0.4 8-24 160mg SC x ity of mL 00:00: 1 on Day [place] injection 00 1, then Medical 80mg SC x Branch 1 on day 15, then 40mg SC qWeek. lidocaine 5 Yes [id number] Apply 2g [facility] % ointment 8-24 to ity of 00:00: affected 00 areas BID Medical PRN Branch adalimumab Yes [id number] Start [facility] [place] 40 mg/0.4 8-24 160mg SC x ity of mL 00:00: 1 on Day [place] injection 00 1, then Medical 80mg SC x Branch 1 on day 15, then 40mg SC qWeek. lidocaine 5 Yes [id number] Apply 2g [facility] % ointment 8-24 to ity of 00:00: affected 00 areas BID Medical PRN Branch adalimumab Yes [id number] Start [facility] [place] 40 mg/0.4 8-24 160mg SC x ity of mL 00:00: 1 on Day [place] injection 00 1, then Medical 80mg SC x Branch 1 on day 15, then 40mg SC qWeek. lidocaine 5 Yes [id number] Apply 2g [facility] % ointment 8-24 to ity of 00:00: affected 00 areas BID Medical PRN Branch amitriptyli 2021- No [id number] 10mg Take 1 [facility] ne 10 mg 8-24 10-13 tablet by ity o f tablet 00:00: 00:00 mouth at [place] 00 :00 bedtime. Medical Branch tiZANidine 2021- No [id number] 2mg Take 1 [facility] 2 mg tablet 8-24 10-13 tablet by it y of 00:00: 00:00 mouth [place] 00 :00 every 8 Medical (eight) Branch hours as needed (muscle spasms). amitriptyli 2021- No [id number] 10mg Take 1 [facility] ne 10 mg 8-24 10-13 tablet by ity o f tablet 00:00: 00:00 mouth at [place] 00 :00 bedtime. Medical Branch tiZANidine 0 2021- No [id number] 2mg Take 1 [facility] 2 mg tablet 8-24 10-13 tablet by it y of 00:00: 00:00 mouth [place] 00 :00 every 8 Medical (eight) Branch hours as needed (muscle spasms). LOSARTAN-HY 2021-0 Yes [id number] TAKE ONE [facility] DROCHLOROTH 8-12 (1) ity of IAZIDE 00:00: TABLET(S) [place] 50-12.5 mg 00 BY MOUTH Medic al per tablet ONCE A Branch DAY. LOSARTAN-HY 2021-0 Yes [id number] TAKE ONE [facility] DROCHLOROTH 8-12 (1) ity of IAZIDE 00:00: TABLET(S) [place] 50-12.5 mg 00 BY MOUTH Medic al per tablet ONCE A Branch DAY. LOSARTAN-HY 2021-0 Yes [id number] TAKE ONE [facility] DROCHLOROTH 8-12 (1) ity of IAZIDE 00:00: TABLET(S) [place] 50-12.5 mg 00 BY MOUTH Medic al per tablet ONCE A Branch DAY. LOSARTAN-HY 2021-0 Yes [id number] TAKE ONE [facility] DROCHLOROTH 8-12 (1) ity of IAZIDE 00:00: TABLET(S) [place] 50-12.5 mg 00 BY MOUTH Medic al per tablet ONCE A Branch DAY. LOSARTAN-HY 2021-0 Yes [id number] TAKE ONE [facility] DROCHLOROTH 8-12 (1) ity of IAZIDE 00:00: TABLET(S) [place] 50-12.5 mg 00 BY MOUTH Medic al per tablet ONCE A Branch DAY. LOSARTAN-HY 2021-0 Yes [id number] TAKE ONE [facility] DROCHLOROTH 8-12 (1) ity of IAZIDE 00:00: TABLET(S) [place] 50-12.5 mg 00 BY MOUTH Medic al per tablet ONCE A Branch DAY. LOSARTAN-HY 2021-0 Yes [id number] TAKE ONE [facility] DROCHLOROTH 8-12 (1) ity of IAZIDE 00:00: TABLET(S) [place] 50-12.5 mg 00 BY MOUTH Medic al per tablet ONCE A Branch DAY. LOSARTAN-HY 2021-0 Yes [id number] TAKE ONE [facility] DROCHLOROTH 8-12 (1) ity of IAZIDE 00:00: TABLET(S) [place] 50-12.5 mg 00 BY MOUTH Medic al per tablet ONCE A Branch DAY. LOSARTAN-HY 2021- No [id number] TAKE ONE [facility] DROCHLOROTH 8-12 10-19 (1) ity of IAZIDE 00:00: 00:00 TABLET(S) [place] 50-12.5 mg 00 :00 BY MOUTH Medic al per tablet ONCE A Branch DAY. FLUoxetine Yes [id number] 20mg Take 1 [facility] n[facility] 20 mg 6-17 capsule by ity of capsule 00:00: mouth [place] 00 daily. Medical Branch FLUoxetine Yes [id number] 20mg Take 1 [facility] n[facility] 20 mg 6-17 capsule by ity of capsule 00:00: mouth [place] 00 daily. Medical Branch FLUoxetine Yes [id number] 20mg Take 1 [facility] 20 mg 6-17 capsule by ity of capsule 00:00: mouth [place] 00 daily. Medical Branch FLUoxetine Yes [id number] 20mg Take 1 [facility] 20 mg 6-17 capsule by ity of capsule 00:00: mouth [place] 00 daily. Medical Branch FLUoxetine Yes [id number] 20mg Take 1 [facility] 20 mg 6-17 capsule by ity of capsule 00:00: mouth [place] 00 daily. Medical Branch FLUoxetine Yes [id number] 20mg Take 1 [facility] 20 mg 6-17 capsule by ity of capsule 00:00: mouth [place] 00 daily. Medical Branch FLUoxetine 2021- No [id number] 20mg Take 1 [facility] 20 mg 6-17 10-13 capsule by ity of capsule 00:00: 00:00 mouth [place] 00 :00 daily. Medical Branch FLUoxetine 2021- No [id number] 20mg Take 1 [facility] 20 mg 6-17 10-13 capsule by ity of capsule 00:00: 00:00 mouth [place] 00 :00 daily. Medical Branch PANTOPRAZOL Yes [id number] TAKE ONE [facility] E 20 mg EC 4-08 (1) ity of tablet 00:00: TABLET(S) [place] 00 BY MOUTH Medical ONCE A Branch DAY. PANTOPRAZOL Yes [id number] TAKE ONE [facility] E 20 mg EC 4-08 (1) ity of tablet 00:00: TABLET(S) [place] 00 BY MOUTH Medical ONCE A Branch DAY. PANTOPRAZOL 2022-0 Yes [id number] TAKE ONE [facility] E 20 mg EC 4-08 (1) ity of tablet 00:00: TABLET(S) [place] 00 BY MOUTH Medical ONCE A Branch DAY. PANTOPRAZOL 2022-0 Yes [id number] TAKE ONE [facility] E 20 mg EC 4-08 (1) ity of tablet 00:00: TABLET(S) [place] 00 BY MOUTH Medical ONCE A Branch DAY. PANTOPRAZOL 2022-0 Yes [id number] TAKE ONE [facility] E 20 mg EC 4-08 (1) ity of tablet 00:00: TABLET(S) [place] 00 BY MOUTH Medical ONCE A Branch DAY. PANTOPRAZOL 2022-0 Yes [id number] TAKE ONE [facility] E 20 mg EC 4-08 (1) ity of tablet 00:00: TABLET(S) [place] 00 BY MOUTH Medical ONCE A Branch DAY. PANTOPRAZOL 2022-0 Yes [id number] TAKE ONE [facility] E 20 mg EC 4-08 (1) ity of tablet 00:00: TABLET(S) [place] 00 BY MOUTH Medical ONCE A Branch DAY. PANTOPRAZOL 2022-0 Yes [id number] TAKE ONE [facility] E 20 mg EC 4-08 (1) ity of tablet 00:00: TABLET(S) [place] 00 BY MOUTH Medical ONCE A Branch DAY. PANTOPRAZOL 2022-0 Yes [id number] TAKE ONE [facility] E 20 mg EC 4-08 (1) ity of tablet 00:00: TABLET(S) [place] 00 BY MOUTH Medical ONCE A Branch DAY. PANTOPRAZOL 2022-0 Yes [id number] TAKE ONE [facility] E 20 mg EC 4-08 (1) ity of tablet 00:00: TABLET(S) [place] 00 BY MOUTH Medical ONCE A Branch DAY. PANTOPRAZOL 2022-0 Yes [id number] TAKE ONE [facility] E 20 mg EC 4-08 (1) ity of tablet 00:00: TABLET(S) [place] 00 BY MOUTH Medical ONCE A Branch DAY. PANTOPRAZOL 2022-0 Yes [id number] TAKE ONE [facility] E 20 mg EC 4-08 (1) ity of tablet 00:00: TABLET(S) [place] 00 BY MOUTH Medical ONCE A Branch DAY. PANTOPRAZOL 2022-0 Yes [id number] TAKE ONE [facility] E 20 mg EC 4-08 (1) ity of tablet 00:00: TABLET(S) [place] 00 BY MOUTH Medical ONCE A Branch DAY. PANTOPRAZOL 2021-0 Yes [id number] TAKE ONE [facility] E 20 mg EC 4-08 (1) ity of tablet 00:00: TABLET(S) [place] 00 BY MOUTH Medical ONCE A Branch DAY. PANTOPRAZOL 2021-0 Yes [id number] TAKE ONE [facility] E 20 mg EC 4-08 (1) ity of tablet 00:00: TABLET(S) [place] 00 BY MOUTH Medical ONCE A Branch DAY. PANTOPRAZOL 2021-0 2- No [id number] TAKE ONE [facility] E 20 mg EC 4-08 12-28 (1) ity of tablet 00:00: 00:00 TABLET(S) [place] 00 :00 BY MOUTH Medical ONCE A Branch DAY. dulaglutide Yes [id number] 1.5mg inject 1.5 [facility] (TRULICITY) 3-09 mg under ity of 1.5 mg/0.5 00:00: the skin [place] mL PnIj 00 weekly. Medical Branch dulaglutide Yes [id number] 1.5mg inject 1.5 [facility] (TRULICITY) 3-09 mg under ity of 1.5 mg/0.5 00:00: the [place] mL PnIj 00 weekly. [facility] Branch dulaglutide Yes [id number] 1.5mg inject 1.5 Univers (TRULICITY) 3-09 mg under ity of 1.5 mg/0.5 00:00: the [place] mL PnIj 00 weekly. [facility] Branch dulaglutide Yes [id number] 1.5mg inject 1.5 [facility] (TRULICITY) 3-09 mg under ity of 1.5 mg/0.5 00:00: the [place] mL PnIj 00 weekly. [facility] Branch dulaglutide Yes [id number] 1.5mg inject 1.5 [facility] (TRULICITY) 3-09 mg under ity of 1.5 mg/0.5 00:00: the [place] mL PnIj 00 weekly. [facility] Branch dulaglutide Yes [id number] 1.5mg inject 1.5 [facility] (TRULICITY) 3-09 mg under ity of 1.5 mg/0.5 00:00: the [place] mL PnIj 00 weekly. Medical Branch dulaglutide 2021- No [id number] 1.5mg inject 1.5 [facility] (TRULICITY) 3- 10-13 mg under ity of 1.5 mg/0.5 00:00: 00:00 the skin [place] mL PnIj 00 :00 weekly. Medical Branch dulaglutide 2021- No [id number] 1.5mg inject 1.5 [facility] (TRULICITY) 3- 10-13 mg under ity of 1.5 mg/0.5 00:00: 00:00 the skin [place] mL PnIj 00 :00 weekly. Medical Branch dulaglutide 2021- No [id number] .75mg inject [facility] (TRULICITY) 06-23 09-12 0.75 mg ity of 0.75 mg/0.5 00:00: 00:00 under the [place] mL PnIj 00 :00 skin Medical weekly. Branch vitamin C 2020-0 Yes [id number] 1000mg Take 1 [facility] with jacob 9-16 tablet by ity o f hips 00:00: mouth [place] (VITAMIN C) 00 daily. Medica l 1,000 mg Branch tablet Cholecalcif 2020-0 Yes [id number] 5000U Take 1 [facility] david, 9-16 tablet by ity of Vitamin D3, 00:00: mouth [place] (VITAMIN 00 daily. Medical D3) 125 mcg Branch (5,000 unit) tablet vitamin C 2020-0 Yes [id number] 1000mg Take 1 [facility] with jacob 9-16 tablet by ity o f hips 00:00: mouth [place] (VITAMIN C) 00 daily. Medica l 1,000 mg Branch tablet Cholecalcif 2020-0 Yes [id number] 5000U Take 1 [facility] david, 9-16 tablet by ity of Vitamin D3, 00:00: mouth [place] (VITAMIN 00 daily. Medical D3) 125 mcg Branch (5,000 unit) tablet vitamin C 2020-0 Yes [id number] 1000mg Take 1 [facility] with jacob 9-16 tablet by ity o f hips 00:00: mouth [place] (VITAMIN C) 00 daily. Medica l 1,000 mg Branch tablet Cholecalcif 2020-0 Yes [id number] 5000U Take 1 [facility] david, 9-16 tablet by ity of Vitamin D3, 00:00: mouth [place] (VITAMIN 00 daily. Medical D3) 125 mcg Branch (5,000 unit) tablet vitamin C 2020-0 Yes [id number] 1000mg Take 1 [facility] with jacob 9-16 tablet by ity o f hips 00:00: mouth [place] (VITAMIN C) 00 daily. Medica l 1,000 mg Branch tablet Cholecalcif 2020-0 Yes [id number] 5000U Take 1 [facility] david, 9-16 tablet by ity of Vitamin D3, 00:00: mouth [place] (VITAMIN 00 daily. Medical D3) 125 mcg Branch (5,000 unit) tablet vitamin C 2020-0 Yes [id number] 1000mg Take 1 [facility] with jacob 9-16 tablet by ity o f hips 00:00: mouth [place] (VITAMIN C) 00 daily. Medica l 1,000 mg Branch tablet Cholecalcif 2020-0 Yes [id number] 5000U Take 1 [facility] david, 9-16 tablet by ity of Vitamin D3, 00:00: mouth [place] (VITAMIN 00 daily. Medical D3) 125 mcg Branch (5,000 unit) tablet vitamin C 2020-0 Yes [id number] 1000mg Take 1 [facility] with jacob 9-16 tablet by ity o f hips 00:00: mouth [place] (VITAMIN C) 00 daily. Medica l 1,000 mg Branch tablet Cholecalcif 2020-0 Yes [id number] 5000U Take 1 [facility] david, 9-16 tablet by ity of Vitamin D3, 00:00: mouth [place] (VITAMIN 00 daily. Medical D3) 125 mcg Branch (5,000 unit) tablet vitamin C 2020-0 Yes [id number] 1000mg Take 1 [facility] with jacob 9-16 tablet by ity o f hips 00:00: mouth [place] (VITAMIN C) 00 daily. Medica l 1,000 mg Branch tablet Cholecalcif 2020-0 Yes [id number] 5000U Take 1 [facility] david, 9-16 tablet by ity of Vitamin D3, 00:00: mouth [place] (VITAMIN 00 daily. Medical D3) 125 mcg Branch (5,000 unit) tablet vitamin C 2020-0 Yes [id number] 1000mg Take 1 [facility] with jacob 9-16 tablet by ity o f hips 00:00: mouth [place] (VITAMIN C) 00 daily. Medica l 1,000 mg Branch tablet Cholecalcif 2020-0 Yes [id number] 5000U Take 1 [facility] david, 9-16 tablet by ity of Vitamin D3, 00:00: mouth [place] (VITAMIN 00 daily. Medical D3) 125 mcg Branch (5,000 unit) tablet vitamin C 2020-0 Yes [id number] 1000mg Take 1 [facility] with jacob 9-16 tablet by ity o f hips 00:00: mouth [place] (VITAMIN C) 00 daily. Medica l 1,000 mg Branch tablet Cholecalcif 2020-0 Yes [id number] 5000U Take 1 [facility] david, 9-16 tablet by ity of Vitamin D3, 00:00: mouth [place] (VITAMIN 00 daily. Medical D3) 125 mcg Branch (5,000 unit) tablet vitamin C 2020-0 Yes [id number] 1000mg Take 1 [facility] with jacob 9-16 tablet by ity o f hips 00:00: mouth [place] (VITAMIN C) 00 daily. Medica l 1,000 mg Branch tablet Cholecalcif 2020-0 Yes [id number] 5000U Take 1 [facility]id, 9-16 tablet by ity of Vitamin D3, 00:00: mouth [place] (VITAMIN 00 daily. Medical D3) 125 mcg Branch (5,000 unit) tablet vitamin C 2020-0 Yes [id number] 1000mg Take 1 [facility] with jacob 9-16 tablet by ity o f hips 00:00: mouth [place] (VITAMIN C) 00 daily. Medica l 1,000 mg Branch tablet Cholecalcif 2020-0 Yes [id number] 5000U Take 1 [facility], 9-16 tablet by ity of Vitamin D3, 00:00: mouth [place] (VITAMIN 00 daily. Medical D3) 125 mcg Branch (5,000 unit) tablet vitamin C 2020-0 Yes [id number] 1000mg Take 1 [facility] with jacob 9-16 tablet by ity o f hips 00:00: mouth [place] (VITAMIN C) 00 daily. Medica l 1,000 mg Branch tablet Cholecalcif 2020-0 Yes [id number] 5000U Take 1 [facility], 9-16 tablet by ity of Vitamin D3, 00:00: mouth [place] (VITAMIN 00 daily. Medical D3) 125 mcg Branch (5,000 unit) tablet vitamin C 2020-0 Yes [id number] 1000mg Take 1 [facility] with jacob 9-16 tablet by ity o f hips 00:00: mouth [place] (VITAMIN C) 00 daily. Medica l 1,000 mg Branch tablet Cholecalcif 2020-0 Yes [id number] 5000U Take 1 [facility], 9-16 tablet by ity of Vitamin D3, 00:00: mouth [place] (VITAMIN 00 daily. Medical D3) 125 mcg Branch (5,000 unit) tablet vitamin C 2020-0 Yes [id number] 1000mg Take 1 [facility] with jacob 9-16 tablet by ity o f hips 00:00: mouth [place] (VITAMIN C) 00 daily. Medica l 1,000 mg Branch tablet Cholecalcif 2020-0 Yes [id number] 5000U Take 1 [facility], 9-16 tablet by ity of Vitamin D3, 00:00: mouth [place] (VITAMIN 00 daily. Medical D3) 125 mcg Branch (5,000 unit) tablet vitamin C 2020-0 Yes [id number] 1000mg Take 1 [facility] with jacob 9-16 tablet by ity o f hips 00:00: mouth [place] (VITAMIN C) 00 daily. Medica l 1,000 mg Branch tablet Cholecalcif 2020-0 Yes [id number] 5000U Take 1 [facility], 9-16 tablet by ity of Vitamin D3, 00:00: mouth [place] (VITAMIN 00 daily. Medical D3) 125 mcg Branch (5,000 unit) tablet vitamin C 2020-0 Yes [id number] 1000mg Take 1 [facility] with jacob 9-16 tablet by ity o f hips 00:00: mouth [place] (VITAMIN C) 00 daily. Medica l 1,000 mg Branch tablet Cholecalcif 2020-0 Yes [id number] 5000U Take 1 [facility], 9-16 tablet by ity of Vitamin D3, 00:00: mouth [place] (VITAMIN 00 daily. Medical D3) 125 mcg Branch (5,000 unit) tablet vitamin C 2020-0 Yes [id number] 1000mg Take 1 [facility] with jacob 9-16 tablet by ity o f hips 00:00: mouth [place] (VITAMIN C) 00 daily. Medica l 1,000 mg Branch tablet Cholecalcif 2020-0 Yes [id number] 5000U Take 1 [facility] david, 9-16 tablet by ity of Vitamin D3, 00:00: mouth [place] (VITAMIN 00 daily. Medical D3) 125 mcg Branch (5,000 unit) tablet vitamin C 2020-0 Yes [id number] 1000mg Take 1 Univers with jacob 9-16 tablet by ity o f hips 00:00: mouth [place] (VITAMIN C) 00 daily. Medica l 1,000 mg Branch tablet Cholecalcif 2020-0 Yes [id number] 5000U Take 1 [facility], 9-16 tablet by ity of Vitamin D3, 00:00: mouth [place] (VITAMIN 00 daily. Medical D3) 125 mcg Branch (5,000 unit) tablet vitamin C 2020-0 Yes [id number] 1000mg Take 1 [facility] with jacob 9-16 tablet by ity o f hips 00:00: mouth [place] (VITAMIN C) 00 daily. Medica l 1,000 mg Branch tablet Cholecalcif 2020-0 Yes [id number] 5000U Take 1 [facility], 9-16 tablet by ity of Vitamin D3, 00:00: mouth [place] (VITAMIN 00 daily. Medical D3) 125 mcg Branch (5,000 unit) tablet vitamin C 2020-0 Yes [id number] 1000mg Take 1 [facility] with jacob 9-16 tablet by ity o f hips 00:00: mouth [place] (VITAMIN C) 00 daily. Medica l 1,000 mg Branch tablet Cholecalcif 2020-0 Yes [id number] 5000U Take 1 [facility], 9-16 tablet by ity of Vitamin D3, 00:00: mouth [place] (VITAMIN 00 daily. Medical D3) 125 mcg Branch (5,000 unit) tablet vitamin C 2020-0 Yes [id number] 1000mg Take 1 [facility] with jacob 9-16 tablet by ity o f hips 00:00: mouth [place] (VITAMIN C) 00 daily. Medica l 1,000 mg Branch tablet Cholecalcif 2020-0 Yes [id number] 5000U Take 1 [facility] dav[facility], 9-16 tablet by ity of Vitamin D3, 00:00: mouth [place] (VITAMIN 00 daily. Medical D3) 125 mcg Branch (5,000 unit) tablet vitamin C 2020-0 Yes [id number] 1000mg Take 1 [facility] with jacob 9-16 tablet by ity o f hips 00:00: mouth [place] (VITAMIN C) 00 daily. Medica l 1,000 mg Branch tablet Cholecalcif 2020-0 Yes [id number] 5000U Take 1 [facility] dav[facility], 9-16 tablet by ity of Vitamin D3, 00:00: mouth [place] (VITAMIN 00 daily. Medical D3) 125 mcg Branch (5,000 unit) tablet vitamin C 2020-0 Yes [id number] 1000mg Take 1 [facility] with jacob 9-16 tablet by ity o f hips 00:00: mouth [place] (VITAMIN C) 00 daily. Medica l 1,000 mg Branch tablet Cholecalcif 2020-0 Yes [id number] 5000U Take 1 [facility] david, 9-16 tablet by ity of Vitamin D3, 00:00: mouth [place] (VITAMIN 00 daily. Medical D3) 125 mcg Branch (5,000 unit) tablet vitamin C 2020-0 Yes [id number] 1000mg Take 1 [facility] with jacob 9-16 tablet by ity o f hips 00:00: mouth [place] (VITAMIN C) 00 daily. Medica l 1,000 mg Branch tablet Cholecalcif 2020-0 Yes [id number] 5000U Take 1 [facility] david, 9-16 tablet by ity of Vitamin D3, 00:00: mouth [place] (VITAMIN 00 daily. Medical D3) 125 mcg Branch (5,000 unit) tablet vitamin C 2020-0 Yes [id number] 1000mg Take 1 [facility] with jacob 9-16 tablet by ity o f hips 00:00: mouth [place] (VITAMIN C) 00 daily. Medica l 1,000 mg Branch tablet Cholecalcif 2020-0 Yes [id number] 5000U Take 1 [facility] david, 9-16 tablet by ity of Vitamin D3, 00:00: mouth [place] (VITAMIN 00 daily. Medical D3) 125 mcg Branch (5,000 unit) tablet vitamin C 2020-0 Yes [id number] 1000mg Take 1 Univers with jacob 9-16 tablet by ity o f hips 00:00: mouth [place] (VITAMIN C) 00 daily. Medica l 1,000 mg Branch tablet Cholecalcif 2020-0 Yes [id number] 5000U Take 1 [facility] david, 9-16 tablet by ity of Vitamin D3, 00:00: mouth [place] (VITAMIN 00 daily. Medical D3) 125 mcg Branch (5,000 unit) tablet vitamin C 2020-0 Yes [id number] 1000mg Take 1 Univers with jacob 9-16 tablet by ity o f hips 00:00: mouth [place] (VITAMIN C) 00 daily. Medica l 1,000 mg Branch tablet Cholecalcif 2020-0 Yes [id number] 5000U Take 1 [facility] david, 9-16 tablet by ity of Vitamin D3, 00:00: mouth [place] (VITAMIN 00 daily. Medical D3) 125 mcg Branch (5,000 unit) tablet vitamin C 2020-0 Yes [id number] 1000mg Take 1 Univers with jacbo 9-16 tablet by ity o f hips 00:00: mouth [place] (VITAMIN C) 00 daily. Medica l 1,000 mg Branch tablet Cholecalcif 2020-0 Yes [id number] 5000U Take 1 [facility] david, 9-16 tablet by ity of Vitamin D3, 00:00: mouth [place] (VITAMIN 00 daily. Medical D3) 125 mcg Branch (5,000 unit) tablet vitamin C 2020-0 Yes [id number] 1000mg Take 1 Univers with jacob 9-16 tablet by ity o f hips 00:00: mouth [place] (VITAMIN C) 00 daily. Medica l 1,000 mg Branch tablet Cholecalcif 2020-0 Yes [id number] 5000U Take 1 [facility] david, 9-16 tablet by ity of Vitamin D3, 00:00: mouth [place] (VITAMIN 00 daily. Medical D3) 125 mcg Branch (5,000 unit) tablet vitamin C 2020-0 Yes [id number] 1000mg Take 1 Univers with jacob 9-16 tablet by ity o f hips 00:00: mouth [place] (VITAMIN C) 00 daily. Medica l 1,000 mg Branch tablet Cholecalcif 2020-0 Yes [id number] 5000U Take 1 [facility]id, 9-16 tablet by ity of Vitamin D3, 00:00: mouth [place] (VITAMIN 00 daily. Medical D3) 125 mcg Branch (5,000 unit) tablet vitamin C 2020-0 Yes [id number] 1000mg Take 1 Univers with jacob 9-16 tablet by ity o f hips 00:00: mouth [place] (VITAMIN C) 00 daily. Medica l 1,000 mg Branch tablet Cholecalcif 2020-0 Yes [id number] 5000U Take 1 [facility] david, 9-16 tablet by ity of Vitamin D3, 00:00: mouth [place] (VITAMIN 00 daily. Medical D3) 125 mcg Branch (5,000 unit) tablet vitamin C 2020-0 Yes [id number] 1000mg Take 1 Univers with jacob 9-16 tablet by ity o f hips 00:00: mouth [place] (VITAMIN C) 00 daily. Medica l 1,000 mg Branch tablet Cholecalcif 2020-0 Yes [id number] 5000U Take 1 [facility] david, 9-16 tablet by ity of Vitamin D3, 00:00: mouth [place] (VITAMIN 00 daily. Medical D3) 125 mcg Branch (5,000 unit) tablet vitamin C 2020-0 Yes [id number] 1000mg Take 1 [facility] with jacob 9-16 tablet by ity o f hips 00:00: mouth [place] (VITAMIN C) 00 daily. Medica l 1,000 mg Branch tablet Cholecalcif 2020-0 Yes [id number] 5000U Take 1 [facility] david, 9-16 tablet by ity of Vitamin D3, 00:00: mouth [place] (VITAMIN 00 daily. Medical D3) 125 mcg Branch (5,000 unit) tablet vitamin C 2020-0 Yes [id number] 1000mg Take 1 [facility] with jacob 9-16 tablet by ity o f hips 00:00: mouth [place] (VITAMIN C) 00 daily. Medica l 1,000 mg Branch tablet Cholecalcif 2020-0 Yes [id number] 5000U Take 1 [facility], 9-16 tablet by ity of Vitamin D3, 00:00: mouth [place] (VITAMIN 00 daily. Medical D3) 125 mcg Branch (5,000 unit) tablet vitamin C 2020-0 Yes [id number] 1000mg Take 1 [facility] with jacob 9-16 tablet by ity o f hips 00:00: mouth [place] (VITAMIN C) 00 daily. Medica l 1,000 mg Branch tablet Cholecalcif 2020-0 Yes [id number] 5000U Take 1 [facility], 9-16 tablet by ity of Vitamin D3, 00:00: mouth [place] (VITAMIN 00 daily. Medical D3) 125 mcg Branch (5,000 unit) tablet vitamin C 2020-0 Yes [id number] 1000mg Take 1 [facility] with jacob 9-16 tablet by ity o f hips 00:00: mouth [place] (VITAMIN C) 00 daily. Medica l 1,000 mg Branch tablet Cholecalcif 2020-0 Yes [id number] 5000U Take 1 [facility]id, 9-16 tablet by ity of Vitamin D3, 00:00: mouth [place] (VITAMIN 00 daily. Medical D3) 125 mcg Branch (5,000 unit) tablet vitamin C 2020-0 Yes [id number] 1000mg Take 1 [facility] with jacob 9-16 tablet by ity o f hips 00:00: mouth [place] (VITAMIN C) 00 daily. Medica l 1,000 mg Branch tablet Cholecalcif 2020-0 Yes [id number] 5000U Take 1 [facility] david, 9-16 tablet by ity of Vitamin D3, 00:00: mouth [place] (VITAMIN 00 daily. Medical D3) 125 mcg Branch (5,000 unit) tablet vitamin C 2020-0 Yes [id number] 1000mg Take 1 [facility] with jacob 9-16 tablet by ity o f hips 00:00: mouth [place] (VITAMIN C) 00 daily. Medica l 1,000 mg Branch tablet Cholecalcif 2020-0 Yes [id number] 5000U Take 1 [facility] david, 9-16 tablet by ity of Vitamin D3, 00:00: mouth [place] (VITAMIN 00 daily. Medical D3) 125 mcg Branch (5,000 unit) tablet vitamin C 2020-0 Yes [id number] 1000mg Take 1 [facility] with jacob 9-16 tablet by ity o f hips 00:00: mouth [place] (VITAMIN C) 00 daily. Medica l 1,000 mg Branch tablet Cholecalcif 2020-0 Yes [id number] 5000U Take 1 [facility] david, 9-16 tablet by ity of Vitamin D3, 00:00: mouth [place] (VITAMIN 00 daily. Medical D3) 125 mcg Branch (5,000 unit) tablet vitamin C 2020-0 Yes [id number] 1000mg Take 1 [facility] 9-16 tablet by [facility] hips 00:00: mouth [place] (VITAMIN C) 00 daily. Medica l 1,000 mg Branch tablet Cholecalcif 2020-0 Yes [id number] 5000U Take 1 [facility], 9-16 tablet by ity of Vitamin D3, 00:00: mouth [place] (VITAMIN 00 daily. Medical D3) 125 mcg Branch (5,000 unit) tablet vitamin C 2020-0 Yes [id number] 1000mg Take 1 [facility] 9-16 tablet by [facility] o f hips 00:00: mouth [place] (VITAMIN C) 00 daily. Medica l 1,000 mg [facility] tablet Cholecalcif 2020-0 Yes [id number] 5000U Take 1 [facility], 9-16 tablet by ity of Vitamin D3, 00:00: mouth [place] (VITAMIN 00 daily. Medical D3) 125 mcg Branch (5,000 unit) tablet vitamin C 2020-0 Yes [id number] 1000mg Take 1 [facility] 9-16 tablet by [facility] o f hips 00:00: mouth [place] (VITAMIN C) 00 daily. Medica l 1,000 mg [facility] tablet Cholecalcif 2020-0 Yes [id number] 5000U Take 1 [facility], 9-16 tablet by ity of Vitamin D3, 00:00: mouth [place] (VITAMIN 00 daily. Medical D3) 125 mcg Branch (5,000 unit) tablet vitamin C 2020-0 Yes [id number] 1000mg Take 1 [facility] 9-16 tablet by [facility] o f hips 00:00: mouth [place] (VITAMIN C) 00 daily. Medica l 1,000 mg [facility] tablet Cholecalcif 2020-0 Yes [id number] 5000U Take 1 [facility], 9-16 tablet by ity of Vitamin D3, 00:00: mouth [place] (VITAMIN 00 daily. Medical D3) 125 mcg [facility] (5,000 unit) tablet vitamin C 2020-0 Yes [id number] 1000mg Take 1 [facility] 9-16 tablet by ity o f hips 00:00: mouth [place] (VITAMIN C) 00 daily. Medica l 1,000 mg [facility] tablet Cholecalcif 2020-0 Yes [id number] 5000U Take 1 [facility], 9-16 tablet by ity of Vitamin D3, 00:00: mouth [place] (VITAMIN 00 daily. Medical D3) 125 mcg [facility] (5,000 unit) tablet vitamin C 2020-0 Yes [id number] 1000mg Take 1 [facility] 9-16 tablet by [facility] o f hips 00:00: mouth [place] (VITAMIN C) 00 daily. Medica l 1,000 mg [facility] tablet Cholecalcif 2020-0 Yes [id number] 5000U Take 1 [facility], 9-16 tablet by ity of Vitamin D3, 00:00: mouth [place] (VITAMIN 00 daily. Medical D3) 125 mcg [facility] (5,000 unit) tablet vitamin C 2020-0 Yes [id number] 1000mg Take 1 [facility] 9-16 tablet by [facility] o f hips 00:00: mouth [place] (VITAMIN C) 00 daily. Medica l 1,000 mg [facility] tablet Cholecalcif 2020-0 Yes [id number] 5000U Take 1 [facility], 9-16 tablet by ity of Vitamin D3, 00:00: mouth [place] (VITAMIN 00 daily. Medical D3) 125 mcg [facility] (5,000 unit) tablet vitamin C 2020-0 Yes [id number] 1000mg Take 1 [facility] 9-16 tablet by ity o f hips 00:00: mouth [place] (VITAMIN C) 00 daily. Medica l 1,000 mg [facility] tablet Cholecalcif 2020-0 Yes [id number] 5000U Take 1 [facility], 9-16 tablet by ity of Vitamin D3, 00:00: mouth [place] (VITAMIN 00 daily. Medical D3) 125 mcg [facility] (5,000 unit) tablet vitamin C 2020-0 Yes [id number] 1000mg Take 1 [facility] 9-16 tablet by ity o f hips 00:00: mouth [place] (VITAMIN C) 00 daily. Medica l 1,000 mg [facility] tablet Cholecalcif 2020-0 Yes [id number] 5000U Take 1 [facility], 9-16 tablet by ity of Vitamin D3, 00:00: mouth [place] (VITAMIN 00 daily. Medical D3) 125 mcg [facility] (5,000 unit) tablet vitamin C 2020-0 Yes [id number] 1000mg Take 1 [facility] 9-16 tablet by ity o f hips 00:00: mouth [place] (VITAMIN C) 00 daily. Medica l 1,000 mg [facility] tablet Cholecalcif 2020-0 Yes [id number] 5000U Take 1 [facility], 9-16 tablet by ity of Vitamin D3, 00:00: mouth [place] (VITAMIN 00 daily. Medical D3) 125 mcg [facility] (5,000 unit) tablet vitamin C 2020-0 Yes [id number] 1000mg Take 1 [facility] 9-16 tablet by ity o f hips 00:00: mouth [place] (VITAMIN C) 00 daily. Medica l 1,000 mg [facility] tablet Cholecalcif 2020-0 Yes [id number] 5000U Take 1 [facility], 9-16 tablet by ity of Vitamin D3, 00:00: mouth [place] (VITAMIN 00 daily. Medical D3) 125 mcg [facility] (5,000 unit) tablet vitamin C 2020-0 Yes [id number] 1000mg Take 1 [facility] 9-16 tablet by it[facility] o f hips 00:00: mouth [place] (VITAMIN C) 00 daily. Medica l 1,000 mg [facility] tablet Cholecalcif 2020-0 Yes [id number] 5000U Take 1 [facility], 9-16 tablet by ity of Vitamin D3, 00:00: mouth [place] (VITAMIN 00 daily. Medical D3) 125 mcg [facility] (5,000 unit) tablet vitamin C 2020-0 Yes [id number] 1000mg Take 1 [facility] 9-16 tablet by ity o f hips 00:00: mouth [place] (VITAMIN C) 00 daily. Medica l 1,000 mg [facility] tablet Cholecalcif 2020-0 Yes [id number] 5000U Take 1 [facility], 9-16 tablet by ity of Vitamin D3, 00:00: mouth [place] (VITAMIN 00 daily. Medical D3) 125 mcg [facility] (5,000 unit) tablet vitamin C 2020-0 Yes [id number] 1000mg Take 1 [facility] 9-16 tablet by ity o f hips 00:00: mouth [place] (VITAMIN C) 00 daily. Medica l 1,000 mg [facility] tablet Cholecalcif 2020-0 Yes [id number] 5000U Take 1 [facility], 9-16 tablet by ity of Vitamin D3, 00:00: mouth [place] (VITAMIN 00 daily. Medical D3) 125 mcg [facility] (5,000 unit) tablet vitamin C 2020-0 Yes [id number] 1000mg Take 1 [facility] 9-16 tablet by ity o f hips 00:00: mouth [place] (VITAMIN C) 00 daily. Medica l 1,000 mg [facility] tablet Cholecalcif 2020-0 Yes [id number] 5000U Take 1 [facility], 9-16 tablet by ity of Vitamin D3, 00:00: mouth [place] (VITAMIN 00 daily. Medical D3) 125 mcg [facility] (5,000 unit) tablet vitamin C 2020-0 Yes [id number] 1000mg Take 1 [facility] 9-16 tablet by ity o f hips 00:00: mouth [place] (VITAMIN C) 00 daily. Medica l 1,000 mg [facility] tablet Cholecalcif 2020-0 Yes [id number] 5000U Take 1 [facility], 9-16 tablet by ity of Vitamin D3, 00:00: mouth [place] (VITAMIN 00 daily. Medical D3) 125 mcg [facility] (5,000 unit) tablet vitamin C 2020-0 Yes [id number] 1000mg Take 1 [facility] 9-16 tablet by ity o f hips 00:00: mouth [place] (VITAMIN C) 00 daily. Medica l 1,000 mg [facility] tablet Cholecalcif 2020-0 Yes [id number] 5000U Take 1 [facility], 9-16 tablet by ity of Vitamin D3, 00:00: mouth [place] (VITAMIN 00 daily. Medical D3) 125 mcg [facility] (5,000 unit) tablet vitamin C 2020-0 Yes [id number] 1000mg Take 1 [facility] 9-16 tablet by ity o f hips 00:00: mouth [place] (VITAMIN C) 00 daily. Medica l 1,000 mg [facility] tablet Cholecalcif 2020-0 Yes [id number] 5000U Take 1 [facility], 9-16 tablet by ity of Vitamin D3, 00:00: mouth [place] (VITAMIN 00 daily. Medical D3) 125 mcg [facility] (5,000 unit) tablet vitamin C 2020-0 Yes [id number] 1000mg Take 1 [facility] 9-16 tablet by ity o f hips 00:00: mouth [place] (VITAMIN C) 00 daily. Medica l 1,000 mg Branch tablet Cholecalcif 2020-0 Yes [id number] 5000U Take 1 [facility], 9-16 tablet by ity of Vitamin D3, 00:00: mouth [place] (VITAMIN 00 daily. Medical D3) 125 mcg Branch (5,000 unit) tablet Immunizations Ordered Filled Immunization Date Status Comments [facility] e Immunization Name Name Influenza Virus 2021-01-29 Completed [facility] Vaccine 00:00:00 [facility] Influenza Virus 2021-01-29 Completed [facility] of Vaccine 00:00:00 [facility] Influenza Virus 2021-01-29 Completed [facility] of Vaccine 00:00:00 [facility] Influenza Virus 2021-01-29 Completed [facility] of Vaccine 00:00:00 [facility] Influenza Virus 2021-01-29 Completed [facility] of Vaccine 00:00:00 [facility] Influenza Virus 2021-01-29 Completed [facility] of Vaccine 00:00:00 [facility] Influenza Virus 2021-01-29 Completed [facility] of Vaccine 00:00:00 [facility] Influenza Virus 2021-01-29 Completed [facility] of Vaccine 00:00:00 [facility] Influenza Virus 2021-01-29 Completed [facility] of Vaccine 00:00:00 [facility] Influenza Virus 2021-01-29 Completed [facility] of Vaccine 00:00:00 [facility] Influenza Virus 2021-01-29 Completed [facility] of Vaccine 00:00:00 [facility] Influenza Virus 2021-01-29 Completed [facility] of Vaccine 00:00:00 [facility] Influenza Virus 2021-01-29 Completed [facility] of Vaccine 00:00:00 [facility] Influenza Virus 2021-01-29 Completed [facility] of Vaccine 00:00:00 [facility] Influenza Virus 2021-01-29 Completed [facility] of Vaccine 00:00:00 [facility] Influenza Virus 2021-01-29 Completed [facility] of Vaccine 00:00:00 [facility] Influenza Virus 2021-01-29 Completed [facility] of Vaccine 00:00:00 [facility] Influenza Virus 2021-01-29 Completed [facility] of Vaccine 00:00:00 [facility] Influenza Virus 2021-01-29 Completed [facility] of Vaccine 00:00:00 [facility] Influenza Virus 2021-01-29 Completed [facility] of Vaccine 00:00:00 [facility] Influenza Virus 2021-01-29 Completed [facility] of Vaccine 00:00:00 [facility] Influenza Virus 2021-01-29 Completed [facility]it y of Vaccine 00:00:00 [facility] Influenza Virus 2021-01-29 Completed [facility]it y of Vaccine 00:00:00 [facility] Influenza Virus 2021-01-29 Completed [facility] y of Vaccine 00:00:00 [facility] Influenza Virus 2021-01-29 Completed [facility] y of Vaccine 00:00:00 [facility] Influenza Virus 2021-01-29 Completed [facility]it y of Vaccine 00:00:00 [facility] Influenza Virus 2021-01-29 Completed [facility] y of Vaccine 00:00:00 [facility] Influenza Virus 2021-01-29 Completed [facility] of Vaccine 00:00:00 [facility] Influenza Virus 2021-01-29 Completed [facility] of Vaccine 00:00:00 [facility] Influenza Virus 2021-01-29 Completed [facility] of Vaccine 00:00:00 [facility] Influenza Virus 2021-01-29 Completed [facility] of Vaccine 00:00:00 [facility] Influenza Virus 2021-01-29 Completed [facility] of Vaccine 00:00:00 [facility] Influenza Virus 2021-01-29 Completed [facility] of Vaccine 00:00:00 [facility] Influenza Virus 2021-01-29 Completed [facility] y of Vaccine 00:00:00 [facility] Influenza Virus 2021-01-29 Completed [facility] y of Vaccine 00:00:00 [facility] Influenza Virus 2021-01-29 Completed [facility] y of Vaccine 00:00:00 [facility] Influenza Virus 2021-01-29 Completed [facility] y of Vaccine 00:00:00 [facility] Influenza Virus 2021-01-29 Completed [facility] y of Vaccine 00:00:00 [facility] Influenza Virus 2021-01-29 Completed [facility] y of Vaccine 00:00:00 [facility] Influenza Virus 2021-01-29 Completed [facility] of Vaccine 00:00:00 [place] [facility] Influenza Virus 2021-01-29 Completed [facility] y of Vaccine 00:00:00 [facility] Influenza Virus 2021-01-29 Completed [facility] y of Vaccine 00:00:00 [facility] Influenza Virus 2021-01-29 Completed [facility] y of Vaccine 00:00:00 [facility] Influenza Virus 2021-01-29 Completed [facility] y of Vaccine 00:00:00 [facility] Influenza Virus 2021-01-29 Completed [facility] of Vaccine 00:00:00 [facility] Influenza Virus 2021-01-29 Completed [facility] y of Vaccine 00:00:00 [facility] Influenza Virus 2021-01-29 Completed [facility] of Vaccine 00:00:00 [facility] Influenza Virus 2021-01-29 Completed [facility] y of Vaccine 00:00:00 [facility] Influenza Virus 2021-01-29 Completed [facility] y of Vaccine 00:00:00 [facility] Influenza Virus 2021-01-29 Completed [facility] y of Vaccine 00:00:00 [facility] Influenza Virus 2021-01-29 Completed [facility] y of Vaccine 00:00:00 [facility] Influenza Virus 2021-01-29 Completed [facility] of Vaccine 00:00:00 [facility] Influenza Virus 2021-01-29 Completed [facility] of Vaccine 00:00:00 [facility] Influenza Virus 2021-01-29 Completed [facility] of Vaccine 00:00:00 [facility] Influenza Virus 2021-01-29 Completed [facility] y of Vaccine 00:00:00 [facility] Influenza Virus 2021-01-29 Completed [facility] y of Vaccine 00:00:00 [facility] Influenza Virus 2021-01-29 Completed [facility] y of Vaccine 00:00:00 [facility] Influenza Virus 2021-01-29 Completed [facility]it y of Vaccine 00:00:00 [facility] SARS-COV-2 COVID-19 2020-12-11 Completed Unive rsity of PFIZER VACCINE 00:00:00 [facility] [place] [facility] SARS-COV-2 COVID-19 2020-12-11 Completed Unive rsity of PFIZER VACCINE 00:00:00 [facility] [place] [facility] SARS-COV-2 COVID-19 2020-12-11 Completed Unive rsity of PFIZER VACCINE 00:00:00 [facility] [place] [facility] SARS-COV-2 COVID-19 2020-12-11 Completed Unive rsity of PFIZER VACCINE 00:00:00 [facility] SARS-COV-2 COVID-19 2020-12-11 Completed Unive rsity of PFIZER VACCINE 00:00:00 [facility] SARS-COV-2 COVID-19 2020-12-11 Completed Unive rsity of PFIZER VACCINE 00:00:00 [facility] SARS-COV-2 COVID-19 2020-12-11 Completed Unive rsity of PFIZER VACCINE 00:00:00 [facility] SARS-COV-2 COVID-19 2020-12-11 Completed Unive rsity of PFIZER VACCINE 00:00:00 [facility] SARS-COV-2 COVID-19 2020-12-11 Completed Unive rsity of PFIZER VACCINE 00:00:00 [facility] SARS-COV-2 COVID-19 2020-12-11 Completed Unive rsity of PFIZER VACCINE 00:00:00 [facility] SARS-COV-2 COVID-19 2020-12-11 Completed Unive rsity of PFIZER VACCINE 00:00:00 [facility] SARS-COV-2 COVID-19 2020-12-11 Completed Unive rsity of PFIZER VACCINE 00:00:00 [facility] SARS-COV-2 COVID-19 2020-12-11 Completed Unive rsity of PFIZER VACCINE 00:00:00 [facility] SARS-COV-2 COVID-19 2020-12-11 Completed Unive rsity of PFIZER VACCINE 00:00:00 [facility] SARS-COV-2 COVID-19 2020-12-11 Completed Unive rsity of PFIZER VACCINE 00:00:00 [facility] SARS-COV-2 COVID-19 2020-12-11 Completed Unive rsity of PFIZER VACCINE 00:00:00 [facility] SARS-COV-2 COVID-19 2020-12-11 Completed Unive rsity of PFIZER VACCINE 00:00:00 [facility] SARS-COV-2 COVID-19 2020-12-11 Completed Unive rsity of PFIZER VACCINE 00:00:00 [facility] SARS-COV-2 COVID-19 2020-12-11 Completed Unive rsity of PFIZER VACCINE 00:00:00 [facility] SARS-COV-2 COVID-19 2020-12-11 Completed Unive rsity of PFIZER VACCINE 00:00:00 [facility] SARS-COV-2 COVID-19 2020-12-11 Completed Unive rsity of PFIZER VACCINE 00:00:00 [facility] SARS-COV-2 COVID-19 2020-12-11 Completed Unive rsity of PFIZER VACCINE 00:00:00 [facility] SARS-COV-2 COVID-19 2020-12-11 Completed Unive rsity of PFIZER VACCINE 00:00:00 [facility] SARS-COV-2 COVID-19 2020-12-11 Completed Unive rsity of PFIZER VACCINE 00:00:00 [facility] SARS-COV-2 COVID-19 2020-12-11 Completed Unive rsity of PFIZER VACCINE 00:00:00 [facility] SARS-COV-2 COVID-19 2020-12-11 Completed Unive rsity of PFIZER VACCINE 00:00:00 [facility] SARS-COV-2 COVID-19 2020-12-11 Completed Unive rsity of PFIZER VACCINE 00:00:00 [facility] SARS-COV-2 COVID-19 2020-12-11 Completed Unive rsity of PFIZER VACCINE 00:00:00 [facility] SARS-COV-2 COVID-19 2020-12-11 Completed Unive rsity of PFIZER VACCINE 00:00:00 [facility] [place] [facility] SARS-COV-2 COVID-19 2020-12-11 Completed Unive rsity of PFIZER VACCINE 00:00:00 [facility] SARS-COV-2 COVID-19 2020-12-11 Completed Unive rsity of PFIZER VACCINE 00:00:00 [facility] SARS-COV-2 COVID-19 2020-12-11 Completed Unive rsity of PFIZER VACCINE 00:00:00 [facility] SARS-COV-2 COVID-19 2020-12-11 Completed Unive rsity of PFIZER VACCINE 00:00:00 [facility] [place] [facility] SARS-COV-2 COVID-19 2020-12-11 Completed Unive rsity of PFIZER VACCINE 00:00:00 [facility] SARS-COV-2 COVID-19 2020-12-11 Completed Unive rsity of PFIZER VACCINE 00:00:00 [facility] SARS-COV-2 COVID-19 2020-12-11 Completed Unive rsity of PFIZER VACCINE 00:00:00 [facility] SARS-COV-2 COVID-19 2020-12-11 Completed Unive rsity of PFIZER VACCINE 00:00:00 [facility] SARS-COV-2 COVID-19 2020-12-11 Completed Unive rsity of PFIZER VACCINE 00:00:00 [facility] SARS-COV-2 COVID-19 2020-12-11 Completed Unive rsity of PFIZER VACCINE 00:00:00 [facility] SARS-COV-2 COVID-19 2020-12-11 Completed Unive rsity of PFIZER VACCINE 00:00:00 [facility] SARS-COV-2 COVID-19 2020-12-11 Completed Unive rsity of PFIZER VACCINE 00:00:00 [facility] SARS-COV-2 COVID-19 2020-12-11 Completed Unive rsity of PFIZER VACCINE 00:00:00 [facility] SARS-COV-2 COVID-19 2020-12-11 Completed Unive rsity of PFIZER VACCINE 00:00:00 [facility] SARS-COV-2 COVID-19 2020-12-11 Completed Unive rsity of PFIZER VACCINE 00:00:00 [facility] SARS-COV-2 COVID-19 2020-12-11 Completed Unive rsity of PFIZER VACCINE 00:00:00 [facility] SARS-COV-2 COVID-19 2020-12-11 Completed Unive rsity of PFIZER VACCINE 00:00:00 [facility] SARS-COV-2 COVID-19 2020-12-11 Completed Unive rsity of PFIZER VACCINE 00:00:00 [facility] SARS-COV-2 COVID-19 2020-12-11 Completed Unive rsity of PFIZER VACCINE 00:00:00 [facility] SARS-COV-2 COVID-19 2020-12-11 Completed Unive rsity of PFIZER VACCINE 00:00:00 [facility] [place] [facility] SARS-COV-2 COVID-19 2020-12-11 Completed Unive rsity of PFIZER VACCINE 00:00:00 [facility] SARS-COV-2 COVID-19 2020-12-11 Completed Unive rsity of PFIZER VACCINE 00:00:00 [facility] SARS-COV-2 COVID-19 2020-12-11 Completed Unive rsity of PFIZER VACCINE 00:00:00 [facility] SARS-COV-2 COVID-19 2020-12-11 Completed Unive rsity of PFIZER VACCINE 00:00:00 [facility] SARS-COV-2 COVID-19 2020-12-11 Completed Unive rsity of PFIZER VACCINE 00:00:00 [facility] SARS-COV-2 COVID-19 2020-12-11 Completed Unive rsity of PFIZER VACCINE 00:00:00 [facility] SARS-COV-2 COVID-19 2020-12-11 Completed Unive rsity of PFIZER VACCINE 00:00:00 [facility] SARS-COV-2 COVID-19 2020-12-11 Completed Unive rsity of PFIZER VACCINE 00:00:00 [facility] SARS-COV-2 COVID-19 2020-12-11 Completed Unive rsity of PFIZER VACCINE 00:00:00 [facility] SARS-COV-2 COVID-19 2020-11-14 Completed Unive rsity of PFIZER VACCINE 00:00:00 [facility] SARS-COV-2 COVID-19 2020-11-14 Completed Unive rsity of PFIZER VACCINE 00:00:00 [facility] [place] [facility] SARS-COV-2 COVID-19 2020-11-14 Completed Unive rsity of PFIZER VACCINE 00:00:00 [facility] [place] [facility] SARS-COV-2 COVID-19 2020-11-14 Completed Unive rsity of PFIZER VACCINE 00:00:00 [facility] SARS-COV-2 COVID-19 2020-11-14 Completed Unive rsity of PFIZER VACCINE 00:00:00 [facility] SARS-COV-2 COVID-19 2020-11-14 Completed Unive rsity of PFIZER VACCINE 00:00:00 [facility] [place] [facility] SARS-COV-2 COVID-19 2020-11-14 Completed Unive rsity of PFIZER VACCINE 00:00:00 [facility] [place] [facility] SARS-COV-2 COVID-19 2020-11-14 Completed [facility] rs[facility] of PFIZER VACCINE 00:00:00 [place] [facility] SARS-COV-2 COVID-19 2020-11-14 Completed Unive rsity of PFIZER VACCINE 00:00:00 [facility] SARS-COV-2 COVID-19 2020-11-14 Completed Unive rsity of PFIZER VACCINE 00:00:00 [facility] SARS-COV-2 COVID-19 2020-11-14 Completed Unive rsity of PFIZER VACCINE 00:00:00 [facility] SARS-COV-2 COVID-19 2020-11-14 Completed Unive rsity of PFIZER VACCINE 00:00:00 [facility] SARS-COV-2 COVID-19 2020-11-14 Completed Unive rsity of PFIZER VACCINE 00:00:00 [facility] SARS-COV-2 COVID-19 2020-11-14 Completed Unive rsity of PFIZER VACCINE 00:00:00 [facility] SARS-COV-2 COVID-19 2020-11-14 Completed Unive rsity of PFIZER VACCINE 00:00:00 [facility] SARS-COV-2 COVID-19 2020-11-14 Completed Unive rsity of PFIZER VACCINE 00:00:00 [facility] SARS-COV-2 COVID-19 2020-11-14 Completed Unive rsity of PFIZER VACCINE 00:00:00 [facility] SARS-COV-2 COVID-19 2020-11-14 Completed Unive rsity of PFIZER VACCINE 00:00:00 [facility] SARS-COV-2 COVID-19 2020-11-14 Completed Unive rsity of PFIZER VACCINE 00:00:00 [facility] SARS-COV-2 COVID-19 2020-11-14 Completed Unive rsity of PFIZER VACCINE 00:00:00 [facility] SARS-COV-2 COVID-19 2020-11-14 Completed Unive rsity of PFIZER VACCINE 00:00:00 [facility] SARS-COV-2 COVID-19 2020-11-14 Completed Unive rsity of PFIZER VACCINE 00:00:00 [facility] SARS-COV-2 COVID-19 2020-11-14 Completed Unive rsity of PFIZER VACCINE 00:00:00 [facility] SARS-COV-2 COVID-19 2020-11-14 Completed Unive rsity of PFIZER VACCINE 00:00:00 [facility] SARS-COV-2 COVID-19 2020-11-14 Completed Unive rsity of PFIZER VACCINE 00:00:00 [facility] SARS-COV-2 COVID-19 2020-11-14 Completed Unive rsity of PFIZER VACCINE 00:00:00 [facility] [facility] SARS-COV-2 COVID-19 2020-11-14 Completed Unive rsity of PFIZER VACCINE 00:00:00 [facility] SARS-COV-2 COVID-19 2020-11-14 Completed Unive rsity of PFIZER VACCINE 00:00:00 [facility] SARS-COV-2 COVID-19 2020-11-14 Completed Unive rsity of PFIZER VACCINE 00:00:00 [facility] SARS-COV-2 COVID-19 2020-11-14 Completed Unive rsity of PFIZER VACCINE 00:00:00 [facility] SARS-COV-2 COVID-19 2020-11-14 Completed Unive rsity of PFIZER VACCINE 00:00:00 [facility] SARS-COV-2 COVID-19 2020-11-14 Completed Unive rsity of PFIZER VACCINE 00:00:00 [facility] SARS-COV-2 COVID-19 2020-11-14 Completed Unive rsity of PFIZER VACCINE 00:00:00 [facility] SARS-COV-2 COVID-19 2020-11-14 Completed Unive rsity of PFIZER VACCINE 00:00:00 [facility] SARS-COV-2 COVID-19 2020-11-14 Completed Unive rsity of PFIZER VACCINE 00:00:00 [facility] SARS-COV-2 COVID-19 2020-11-14 Completed Unive rsity of PFIZER VACCINE 00:00:00 [facility] SARS-COV-2 COVID-19 2020-11-14 Completed Unive rsity of PFIZER VACCINE 00:00:00 [facility] SARS-COV-2 COVID-19 2020-11-14 Completed Unive rsity of PFIZER VACCINE 00:00:00 [facility] SARS-COV-2 COVID-19 2020-11-14 Completed Unive rsity of PFIZER VACCINE 00:00:00 [facility] SARS-COV-2 COVID-19 2020-11-14 Completed Unive rsity of PFIZER VACCINE 00:00:00 [facility] SARS-COV-2 COVID-19 2020-11-14 Completed Unive rsity of PFIZER VACCINE 00:00:00 [facility] SARS-COV-2 COVID-19 2020-11-14 Completed Unive rsity of PFIZER VACCINE 00:00:00 [facility] SARS-COV-2 COVID-19 2020-11-14 Completed Unive rsity of PFIZER VACCINE 00:00:00 [facility] SARS-COV-2 COVID-19 2020-11-14 Completed Unive rsity of PFIZER VACCINE 00:00:00 [facility] SARS-COV-2 COVID-19 2020-11-14 Completed Unive rsity of PFIZER VACCINE 00:00:00 [facility] SARS-COV-2 COVID-19 2020-11-14 Completed Unive rsity of PFIZER VACCINE 00:00:00 [facility] SARS-COV-2 COVID-19 2020-11-14 Completed Unive rsity of PFIZER VACCINE 00:00:00 [facility] SARS-COV-2 COVID-19 2020-11-14 Completed Unive rsity of PFIZER VACCINE 00:00:00 [facility] SARS-COV-2 COVID-19 2020-11-14 Completed Unive rsity of PFIZER VACCINE 00:00:00 [facility] SARS-COV-2 COVID-19 2020-11-14 Completed Unive rsity of PFIZER VACCINE 00:00:00 [facility] SARS-COV-2 COVID-19 2020-11-14 Completed Unive rsity of PFIZER VACCINE 00:00:00 [facility] SARS-COV-2 COVID-19 2020-11-14 Completed Unive rsity of PFIZER VACCINE 00:00:00 [facility] SARS-COV-2 COVID-19 2020-11-14 Completed [facility]ive rsity of PFIZER VACCINE 00:00:00 [facility] SARS-COV-2 COVID-19 2020-11-14 Completed [facility]ive rsity of PFIZER VACCINE 00:00:00 [facility] SARS-COV-2 COVID-19 2020-11-14 Completed [facility]ive rs[facility] of PFIZER VACCINE 00:00:00 [facility] SARS-COV-2 COVID-19 2020-11-14 Completed Unive rsity of PFIZER VACCINE 00:00:00 [facility] SARS-COV-2 COVID-19 2020-11-14 Completed Unive rsity of PFIZER VACCINE 00:00:00 [facility] SARS-COV-2 COVID-19 2020-11-14 Completed Unive rsity of PFIZER VACCINE 00:00:00 [facility] 2019-01-14 Completed University of 00:00:00 [facility] Influenza Virus 2019-01-14 Completed Universit y of Vaccine Quad .5 mL 00:00:00 [facility] 6+ MO [place] TD 2019-01-14 Completed University of 00:00:00 [facility] Influenza Virus 2019-01-14 Completed Universit y of Vaccine Quad .5 mL 00:00:00 [place] [id number] [place] [facility] 2019-01-14 Completed University of 00:00:00 [facility] Influenza Virus 2019-01-14 Completed Universit y of Vaccine Quad .5 mL 00:00:00 [facility] 6+ MO [place] TD 2019-01-14 Completed University of 00:00:00 [facility] Influenza Virus 2019-01-14 Completed Universit y of Vaccine Quad .5 mL 00:00:00 [place] [id number] [place] [facility] 2019-01-14 Completed University of 00:00:00 [facility] Influenza Virus 2019-01-14 Completed Universit y of Vaccine Quad .5 mL 00:00:00 [facility] 6+ [place] [facility] 2019-01-14 Completed University of 00:00:00 [facility] Influenza Virus 2019-01-14 Completed Universit y of Vaccine Quad .5 mL 00:00:00 [facility] 6+ MO [place] TD 2019-01-14 Completed University of 00:00:00 [facility] Influenza Virus 2019-01-14 Completed Universit y of Vaccine Quad .5 mL 00:00:00 [facility] 6+ MO [place] TD 2019-01-14 Completed University of 00:00:00 [facility] Influenza Virus 2019-01-14 Completed [facility]it y of Vaccine Quad .5 mL 00:00:00 [facility] 6+ MO [place] TDAP 2019-01-14 Completed University of 00:00:00 [facility] Influenza Virus 2019-01-14 Completed Universit y of Vaccine Quad .5 mL 00:00:00 [facility] 6+ [place] Branch TDAP 2019-01-14 Completed University of 00:00:00 [facility] Influenza Virus 2019-01-14 Completed Universit y of Vaccine Quad .5 mL 00:00:00 [facility] 6+ [place] Branch TDAP 2019-01-14 Completed University of 00:00:00 [facility] Influenza Virus 2019-01-14 Completed [facility]it y of Vaccine Quad .5 mL 00:00:00 [facility] 6+ [place] Branch TDAP 2019-01-14 Completed University of 00:00:00 [facility] Influenza Virus 2019-01-14 Completed Universit y of Vaccine Quad .5 mL 00:00:00 [facility] 6+ MO [place] TD 2019-01-14 Completed University of 00:00:00 [facility] Influenza Virus 2019-01-14 Completed [facility]it y of Vaccine Quad .5 mL 00:00:00 [facility] 6+ [place] [facility] 2019-01-14 Completed University of 00:00:00 [facility] Influenza Virus 2019-01-14 Completed [facility]it y of Vaccine Quad .5 mL 00:00:00 [facility] 6+ MO [place] TD 2019-01-14 Completed University of 00:00:00 [facility] Influenza Virus 2019-01-14 Completed [facility]it y of Vaccine Quad .5 mL 00:00:00 [facility] 6+ [place] [facility] 2019-01-14 Completed University of 00:00:00 [facility] Influenza Virus 2019-01-14 Completed Universit y of Vaccine Quad .5 mL 00:00:00 [facility] 6+ MO [place] TDAP 2019-01-14 Completed University of 00:00:00 [facility] Influenza Virus 2019-01-14 Completed [facility]it y of Vaccine Quad .5 mL 00:00:00 [facility] 6+ MO [place] TDAP 2019-01-14 Completed University of 00:00:00 [facility] Influenza Virus 2019-01-14 Completed Universit y of Vaccine Quad .5 mL 00:00:00 [facility] 6+ MO [place] TDAP 2019-01-14 Completed University of 00:00:00 [facility] Influenza Virus 2019-01-14 Completed Universit y of Vaccine Quad .5 mL 00:00:00 [facility] 6+ [facility] 2019-01-14 Completed University of 00:00:00 [facility] Influenza Virus 2019-01-14 Completed Universit y of Vaccine Quad .5 mL 00:00:[address] [place] [facility] 2019-01-14 Completed University of 00:00:00 [facility] Influenza Virus 2019-01-14 Completed Universit y of Vaccine Quad .5 mL 00:00:[address] 2019-01-14 Completed University of 00:00:00 [facility] Influenza Virus 2019-01-14 Completed [facility]it y of Vaccine Quad .5 mL 00:00:[address] 2019-01-14 Completed University of 00:00:00 [facility] Influenza Virus 2019-01-14 Completed Universit y of Vaccine Quad .5 mL 00:00:[address] 2019-01-14 Completed University of 00:00:00 [facility] Influenza Virus 2019-01-14 Completed [facility]it y of Vaccine Quad .5 mL 00:00:[address] 2019-01-14 Completed University of 00:00:00 [facility] Influenza Virus 2019-01-14 Completed [facility]it y of Vaccine Quad .5 mL 00:00:[address] 2019-01-14 Completed University of 00:00:00 [facility] Influenza Virus 2019-01-14 Completed [facility]it y of Vaccine Quad .5 mL 00:00:[address] 2019-01-14 Completed University of 00:00:00 [facility] Influenza Virus 2019-01-14 Completed [facility]it y of Vaccine Quad .5 mL 00:00:[address] 2019-01-14 Completed University of 00:00:00 [facility] Influenza Virus 2019-01-14 Completed [facility]it y of Vaccine Quad .5 mL 00:00:[address] 2019-01-14 Completed University of 00:00:00 [facility] Influenza Virus 2019-01-14 Completed [facility]it y of Vaccine Quad .5 mL 00:00:[address] [place] [facility] 2019-01-14 Completed University of 00:00:00 [facility] Influenza Virus 2019-01-14 Completed [facility]it y of Vaccine Quad .5 mL 00:00:00 [facility] 6[facility] TDAP 2019-01-14 Completed University of 00:00:00 [facility] Influenza Virus 2019-01-14 Completed Universit y of Vaccine Quad .5 mL 00:00:00 [facility] 6[facility] MO [facility] TDAP 2019-01-14 Completed University of 00:00:00 [facility] Influenza Virus 2019-01-14 Completed [facility]it y of Vaccine Quad .5 mL 00:00:00 [facility] 6+ MO [facility] TDAP 2019-01-14 Completed University of 00:00:00 [facility] Influenza Virus 2019-01-14 Completed [facility]it y of Vaccine Quad .5 mL 00:00:00 [facility] 6+ MO [place] TDAP 2019-01-14 Completed University of 00:00:00 [facility] Influenza Virus 2019-01-14 Completed [facility]it y of Vaccine Quad .5 mL 00:00:00 [facility] 6+ MO [place] TD 2019-01-14 Completed University of 00:00:00 [facility] Influenza Virus 2019-01-14 Completed [facility]it y of Vaccine Quad .5 mL 00:00:00 [facility] 6+ [place] Branch TDAP 2019-01-14 Completed University of 00:00:00 [facility] Influenza Virus 2019-01-14 Completed [facility]it y of Vaccine Quad .5 mL 00:00:00 [facility] 6+ MO [place] TDAP 2019-01-14 Completed University of 00:00:00 [facility] Influenza Virus 2019-01-14 Completed Universit y of Vaccine Quad .5 mL 00:00:00 [facility] 6+ MO [place] TDAP 2019-01-14 Completed University of 00:00:00 [facility] Influenza Virus 2019-01-14 Completed Universit y of Vaccine Quad .5 mL 00:00:00 [facility] [place] [facility] 6+ MO [facility] TDAP 2019-01-14 Completed University of 00:00:00 [facility] Influenza Virus 2019-01-14 Completed [facility]it y of Vaccine Quad .5 mL 00:00:00 [facility] [place] [facility] 6+ MO [place] TDAP 2019-01-14 Completed University of 00:00:00 [facility] Influenza Virus 2019-01-14 Completed [facility]it y of Vaccine Quad .5 mL 00:00:00 [facility] [place] [facility] 6+ MO Branch TDAP 2019-01-14 Completed [facility] of 00:00:00 [facility] Influenza Virus 2019-01-14 Completed Universit y of Vaccine Quad .5 mL 00:00:00 [place] [facility] 6+ MO [facility] TDAP 2019-01-14 Completed [facility] of 00:00:00 [facility] Influenza Virus 2019-01-14 Completed [facility]it y of Vaccine Quad .5 mL 00:00:00 [facility] [place] [facility] 6[facility] TDAP 2019-01-14 Completed [facility] of 00:00:00 [facility] Influenza Virus 2019-01-14 Completed [facility]it y of Vaccine Quad .5 mL 00:00:00 [place] [facility] 6[facility] TDAP 2019-01-14 Completed [facility] of 00:00:00 [facility] Influenza Virus 2019-01-14 Completed [facility]it y of Vaccine Quad .5 mL 00:00:00 [facility] [place] [facility] 6+ MO [facility] TDAP 2019-01-14 Completed [facility] of 00:00:00 [facility] Influenza Virus 2019-01-14 Completed Universit y of Vaccine Quad .5 mL 00:00:00 [facility] 6+ [place] [facility] TDAP 2019-01-14 Completed University of 00:00:00 [facility] Influenza Virus 2019-01-14 Completed Universit y of Vaccine Quad .5 mL 00:00:00 [facility] [place] [facility] 6+ MO [facility] TDAP 2019-01-14 Completed [facility] of 00:00:00 [facility] Influenza Virus 2019-01-14 Completed [facility]it y of Vaccine Quad .5 mL 00:00:00 [facility] 6+ MO Branch TDAP 2019-01-14 Completed [facility] of 00:00:00 [facility] Influenza Virus 2019-01-14 Completed [facility]it y of Vaccine Quad .5 mL 00:00:00 [place] [facility] 6+ MO [facility] TDAP 2019-01-14 Completed [facility] of 00:00:00 [facility] Influenza Virus 2019-01-14 Completed [facility]it y of Vaccine Quad .5 mL 00:00:00 [place] [facility] 6+ MO [facility] TDAP 2019-01-14 Completed [facility] of 00:00:00 [facility] Influenza Virus 2019-01-14 Completed [facility]it y of Vaccine Quad .5 mL 00:00:00 [place] [facility] 6+ MO [facility] TDAP 2019-01-14 Completed [facility] of 00:00:00 [facility] Influenza Virus 2019-01-14 Completed [facility]it y of Vaccine Quad .5 mL 00:00:00 [place] [facility] 6+ MO Branch TDAP 2019-01-14 Completed [facility] of 00:00:00 [facility] Influenza Virus 2019-01-14 Completed [facility]it y of Vaccine Quad .5 mL 00:00:00 [facility] 6+ [place] Branch TDAP 2019-01-14 Completed University of 00:00:00 [facility] Influenza Virus 2019-01-14 Completed Universit y of Vaccine Quad .5 mL 00:00:00 [facility] 6+ [place] [facility] AP 2019-01-14 Completed University of 00:00:00 [facility] Influenza Virus 2019-01-14 Completed Universit y of Vaccine Quad .5 mL 00:00:00 [facility] 6+ [place] [facility] AP 2019-01-14 Completed [facility] of 00:00:00 [facility] Influenza Virus 2019-01-14 Completed [facility]it y of Vaccine Quad .5 mL 00:00:00 [place] [address] [place] [facility] 2019-01-14 Completed University of 00:00:00 [facility] Influenza Virus 2019-01-14 Completed [facility]it y of Vaccine Quad .5 mL 00:00:[address] [place] [facility] 2019-01-14 Completed University of 00:00:00 [facility] Influenza Virus 2019-01-14 Completed [facility]it y of Vaccine Quad .5 mL 00:00:[address] [place] [facility] 2019-01-14 Completed [facility] of 00:00:00 [facility] Influenza Virus 2019-01-14 Completed Universit y of Vaccine Quad .5 mL 00:00:[address] Vital Signs Vital Name Observation Time Observation Value Comments Source Systolic blood 2022-12-01 110 mm[Hg] University of pressure 19:30:41 [facility] Diastolic blood 2022-12-01 90 mm[Hg] [place] [facility] f pressure 19:30:41 [facility] Heart rate 2022-12-01 61 /min University of 19:30:41 [facility] Body temperature 2022-12-01 36.72 Ilsa [place] of 19:30:41 [facility] Respiratory rate 2022-12-01 17 /min University of 19:30:41 [facility] Oxygen saturation 2022-12-01 96 /min [facility] in Arterial blood 19:30:41 [facility] Pulse oximetry [place] Body height 2022-12-01 165.1 cm [place] of 16:56:00 [facility] Body weight 2022-12-01 79.379 kg University of 16:56:00 [facility] BMI 2022-12-01 29.12 kg/m2 University of 16:56:00 [facility] Systolic blood 2022-10-21 121 mm[Hg] University of pressure 15:53:00 [facility] Diastolic blood 2022-10-21 86 mm[Hg] University o f pressure 15:53:00 [facility] Heart rate 2022-10-21 79 /min University of 15:53:00 [facility] Body height 2022-10-21 165.1 cm University of 15:53:00 [facility] Body weight 2022-10-21 82.01 kg University of 15:53:00 [facility] BMI 2022-10-21 30.09 kg/m2 University of 15:53:00 [facility] Oxygen saturation 2022-10-21 97 /min [place] of in Arterial blood 15:53:00 [facility] Pulse oximetry Branch Systolic blood 2022-10-13 135 mm[Hg] pt felt University of pressure 20:29:00 [facility] [place] [facility] Diastolic blood 2022-10-13 102 mm[Hg] pt felt [place] [facility] pressure 20:29:00 unbalanced/torin [place] [facility] Heart rate 2022-10-13 116 /min University of 20:29:00 [facility] Oxygen saturation 2022-10-13 97 /min University in Arterial blood 20:29:00 [facility] Pulse oximetry Branch Body temperature 2022-10-13 37.17 Ilsa University of 19:57:00 [facility] Respiratory rate 2022-10-13 18 /min University of 19:57:00 [facility] Body height 2022-10-13 165.1 cm University of 19:57:00 [facility] Body weight 2022-10-13 81.449 kg University of 19:57:00 [facility] BMI 2022-10-13 29.88 kg/m2 University of 19:57:00 [facility] Systolic blood 2022-10-04 148 mm[Hg] University of pressure 21:10:00 [facility] Diastolic blood 2022-10-04 98 mm[Hg] University o f pressure 21:10:00 [facility] Heart rate 2022-10-04 99 /min University of 21:06:00 [facility] Body temperature 2022-10-04 36.83 Ilsa University of :06:00 [facility] Respiratory rate 2022-10-04 18 /min University of 21:06:00 [facility] Body height 2022-10-04 165.1 cm University of 21:06:00 [facility] [place] Body weight 2022-10-04 82.555 kg University of 21:06:00 [facility] BMI 2022-10-04 30.29 kg/m2 University of 21:06:00 [facility] Oxygen saturation 2022-10-04 99 /min University of in Arterial blood 21:06:00 [facility] lonny by Pulse oximetry Branch Systolic blood 2022-09-28 129 mm[Hg] University of pressure 21:00:00 [facility] Diastolic blood 2022-09-28 96 mm[Hg] University o f pressure 21:00:00 [facility] Heart rate 2022-09-28 76 /min University of :00:00 [facility] Respiratory rate 2022-09-28 13 /min University of :00:00 [facility] Oxygen saturation 2022-09-28 97 /min University of in Arterial blood 21:00:00 [facility] lonny by Pulse oximetry Branch Body temperature 2022-09-28 37.11 Ilsa University of 17:45:00 [facility] Body weight 2022-09-28 94.802 kg University of 17:45:00 [facility] BMI 2022-09-28 34.78 kg/m2 University of 17:45:00 [facility] Systolic blood 2022-06-03 138 mm[Hg] University of pressure 20:07:00 [place] [facility] Diastolic blood 2022-06-03 90 mm[Hg] University o f pressure 20:07:00 [facility] Heart rate 2022-06-03 92 /min University of 20:06:00 [facility] Respiratory rate 2022-06-03 18 /min University of 20:06:00 [facility] Body height 2022-06-03 165.1 cm University of 20:06:00 [facility] Body weight 2022-06-03 94.802 kg University of 20:06:00 [facility] BMI 2022-06-03 34.78 kg/m2 University of 20:06:00 [facility] Oxygen saturation 2022-06-03 97 /min [facility] in Arterial blood 20:06:00 [facility] Pulse oximetry Branch Systolic blood 2022-02-03 139 mm[Hg] University of pressure 14:00:00 [facility] Diastolic blood 2022-02-03 91 mm[Hg] University o f pressure 14:00:00 [facility] Heart rate 2022-02-03 73 /min University of 14:00:00 [facility] Respiratory rate 2022-02-03 18 /min University of 14:00:00 [facility] Oxygen saturation 2022-02-03 97 /min University of in Arterial blood 14:00:00 [facility] Pulse oximetry Branch Body temperature 2022-02-03 36.61 Ilsa University of 13:18:00 [facility] Body weight 2022-02-03 99.791 kg University of 13:18:00 [facility] BMI 2022-02-03 38.97 kg/m2 University of 13:18:00 [facility] Systolic blood 2022-01-27 136 mm[Hg] University of pressure 21:05:00 [facility] Diastolic blood 2022-01-27 81 mm[Hg] University o f pressure 21:05:00 [facility] Heart rate 2022-01-27 81 /min University of 21:05:00 [facility] Respiratory rate 2022-01-27 18 /min University of 21:05:00 [facility] Body height 2022-01-27 160 cm University of 21:05:00 [facility] Body weight 2022-01-27 103.874 kg University of 21:05:00 [facility] BMI 2022-01-27 40.57 kg/m2 University of 21:05:00 [facility] Oxygen saturation 2022-01-27 97 /min [facility] in Arterial blood 21:05:00 [facility] Pulse oximetry Branch Procedures Procedure Date / Time Performing Clinician Source Performed URINALYSIS 2022-12-01 18:38:00 Jey Perez [facility] XR CHEST 1 VW 2022-12-01 17:41:17 Jey Perez [facility] LIPASE 2022-12-01 17:15:00 Jey Perez [facility] TROPONIN I 2022-12-01 17:15:00 Jey Perez [facility] COMP. METABOLIC PANEL 2022-12-01 17:15:00 Jey Perez [facility] ([id number]) Medical Branch CBC WITH DIFF 2022-12-01 17:15:00 Jey Perez [facility] COVID-19 (ID NOW RAPID 2022-12-01 17:15:[address] [facility] TESTING) Medical Branch MEDICATION CORRESPONDENCE 2022-11-22 05:01:00 Doctor Unassigned, [facility] MR LUMBAR SPINE W WO 2022-10-12 21:23:00 Miya Edouard [facility] CONTRAST [facility] POCT TEST 2022-09-28 19:44:00 Juliane Jolly [facility] CT STROKE ANGIOGRAM HEAD 2022-09-28 19:30:00 Juliane Jolly [facility] CT STROKE ANGIOGRAM NECK 2022-09-28 19:30:00 Juliane Jolly [facility] CT STROKE HEAD WO 2022-09-28 19:14:05 Juliane Jolly [facility] CONTRAST [facility] TROPONIN I 2022-09-28 18:53:00 Juliane Jolly [facility] COMP. METABOLIC PANEL 2022-09-28 18:53:00 Juliane Jolly [facility] ([id number]) [facility] CBC WITH DIFF 2022-09-28 18:53:00 Juliane Jolly [facility] PROTHROMBIN TIME / INR 2022-09-28 18:53:00 [facility] 2022-09-28 18:53:00 Juliane Jolly [facility] THRMPLAS MARK [facility] URINALYSIS 2022-09-28 18:53:00 Juliane Jolly [facility] N-TERMINAL PRO-BNP 2022-09-28 18:53:00 Juliane Jolly [facility] LACTIC ACID WHOLE BLOOD 2022-09-28 18:53:00 [facility]iane [facility] CERVICAL SPINE WO 2022-08-25 21:43:32 Requisition, Paper [facility] CONSENT/REFUSAL FOR 2022-08-25 21:06:28 Doctor Unassigned, [facility] DIAGNOSIS AND TREATMENT [facility] ASSIGNMENT OF BENEFITS 2022-08-25 21:06:18 Doctor Unassigned, [facility] MR LUMBAR SPINE WO 2022-06-07 22:54:45 Requisition, Paper [facility] LUM[facility] SPINE 4 VW 2022-06-07 21:58:44 Requisition, Paper [facility] COMP. METABOLIC PANEL 2022-02-03 13:37:00 Carolina Maurice [facility] ([id number]) [facility] CBC WITH DIFF 2022-02-03 13:37:00 Carolina Maurice [facility] CONSENT/REFUSAL FOR 2022-02-03 13:08:09 Doctor Unassigned, [facility] DIAGNOSIS AND TREATMENT [facility] Encounters Start End Encounter Admission Attending Care Care Encounter Source Date/Time Date/Time Type Type Clinicians Facility Department ID 2021-03-04 Outpatient R STEPHAN [facility] [[email or web address] DEB [id number] Univers 15:44:[address] [facility] 2021-02-12 Emergency [facility] [id number] Univers 17:53[facility] 2022-12-06 2022-12-06 Outpatient R BRADY [facility] [id number] Univers 14:00:00 14:00:00 EVA beatty o f [facility] 2022-12-01 2022-12-01 Emergency [facility] ERT [id number] Univers 12:00:00 14:36:00 JEY beatty [facility] 2022-12-01 2022-12-01 Emergency [facility] 1.2.109.410 [id number] Univers 12:00:00 14:36:00 Jey Dela Cruz [place] 350.1.13.10 i [facility] 4.2.7.2.686 [facility] [id number] [facility] [address] 2022-11-22 2022-11-22 Orders Doctor BEV 1.2.840.114 [id number] Univers 00:00:00 00:00:00 Only Unassigned, TRICIA 350.1.13.10 ity of [place] [facility] 4.2.7.2.686 David as [id number] [facility] [address] 2022-11-20 2022-11-20 Refill [facility] 1.2.840.114 105 [id number] Univers 00:00:00 00:00:00 Miya WOLFF 350.1.13.10 i ty [place] [id number] [place] dical N[place] 044 [facility] 2022-11-17 2022-11-17 Telephone [facility] 1.2.840.114 [id number] Univers 00:00:00 00:00:00 Miya WOLFF 350.1.13.10 i ty of [place] [id number] [place] dical NAL 044 [facility] 2022-11-11 2022-11-11 Refill [facility] 1.2.840.114 105 [id number] Univers 00:00:00 00:00:00 Miya WOLFF 350.1.13.10 i ty of [place] [id number] [place] dical NAL 044 [facility] 2022-11-09 2022-11-09 Outpatient Jhoana ABREU [facility] [id number] Univers 10:40:00 10:40:00 EVA robles [facility] 2022-11-08 2022-11-08 Patient [facility] 1.2.840.114 [id number] Univers 00:00:00 00:00:00 Secure Msg Miya WOLFF 350.1.13.10 ity of [place].2.[place] [id number] [place] dical N[place] [address] [place] [address] 2022-10-21 2022-10-21 Outpatient SARMAD MCGUIRE [facility] [id number] Univers 11:00:00 15:17:15 SARMAD PITT ity of [facility] 2022-10-21 2022-10-21 Office Marianne [facility] [[email or web address]] 1.2.840.114 [id number] Univers 11:00:00 15:17:15 Visit Sarmad [facility] 350.1.13.10 ity [facility] 4.2.7.2.686 David as GABRIELA?BLEA [phone] [place] dical KNEY 092 [facility] OFFICE [facility] 2022-10-21 2022-10-21 Refill [facility] 1.2.840.114 [id number] Univers 00:00:00 00:00:00 Miya WOLFF 350.1.13.10 i ty of [place] 4[place].7.2.[place] [id number] [place] dical NAL 044 [facility] 2022-10-13 2022-10-13 [facility] [id number] Univers 14:40:00 15:44:42 CLOVISTAYLOR rogerio o f [facility] 2022-10-13 2022-10-13 Office [facility] 1.2.840.114 [id number] Univers 14:40:00 15:44:42 Visit Eva WOLFF 350.1.13.10 ity [facility] [place].2.7.2.[place] [id number] [place] dical NAL 059 [facility] 2022-10-12 2022-10-12 Outpatient R JAVAN [facility] [id number] Univers 15:08:01 23:59:00 MIYA beatty [facility] 2022-10-12 2022-10-12 [facility] 1.2.840.114 [id number] Univers 15:08:01 23:59:00 Encounter Miya WOLFF 350.1.13.10 ity [facility] [place]2.7.2.[place] [id number] [facility] [address] [place] 2022-10-06 2022-10-06 Refill [facility] 1.2.840.114 104 [id number] Univers 00:00:00 00:00:00 Miya WOLFF 350.1.13.10 i ty of [place] [id number] [address] 2022-10-05 2022-10-05 Letter Neurology [facility] [[email or web address]] 1.2.690.369 [id number] Univers 00:00:00 00:00:00 (Out) HEALTH 350.1.13.10 it y of [place].2.[place] [id number] [facility] [address] OFFICE BUILDING 2022-10-04 2022-10-04 Office [facility] 1.2.840.114 104 [id number] Univers 16:00:00 16:40:00 Visit Miya WOLFF 350.1.13.10 i ty [facility] 4.2.7.2.[place] [id number] [address] 2022-10-04 2022-10-04 [facility] [id number] Univers 16:00:00 16:00:00 MIYA beatty [facility] 2022-09-28 2022-09-28 Emergency X [facility] ERT [id number] Univers 12:47:00 16:58:00 , JULIANE beatty [facility] 2022-09-28 2022-09-28 Emergency [facility] 1.2.840.114 [id number] Univers 12:47:00 16:58:00 , Juliane NIXXAVIER 350.1.13.10 i ty of [facility] 4.2.7.2.[place] [id number] [facility] [address] 2022-09-27 2022-09-27 [facility] 1.2.840.114 104 [id number] Univers 00:00:00 00:00:00 Miya WOLFF 350.1.13.10 i ty of [place] 4[place].2.[place] [id number] [address] 2022-09-25 2022-09-25 [facility] 1.2.840.114 103 [id number] Univers 00:00:00 00:00:00 Peter [place] 350.1.13.10 i ty of [place] 4.2.7.2.[place] [id number] [place] dic[address] 2022-09-18 2022-09-18 [facility] 1.2.840.114 103 [id number] Univers 00:00:00 00:00:00 Peter [place] 350.1.13.10 i ty of [facility] 4.2.7.2.[place] [id number] [facility] NAL [address] [place] [address] 2022-09-16 2022-09-16 [facility] 1.2.840.114 103 [id number] Univers 00:00:00 00:00:00 Peter [place] 350.1.13.10 i ty [facility] 4.2.7.2.[place] [phone] [address] 2022-08-25 2022-08-25 Outpatient R RADIOLOGY [facility] [id number] Univers 16:09:30 23:59:00 ity of [facility] 2022-08-25 2022-08-25 [facility] Radiology [facility] [[email or web address]] 1.2.840.114 102 [id number] Univers 16:09:30 23:59:00 Encounter [place] 350.1.13.10 ity of [place] 4.2.7.2.[place] [id number] [facility] [address] [place] 2022-08-25 2022-08-25 [facility] Radiology [facility] [[email or web address]] 1.2.840.114 102 [id number] Univers 16:00:00 16:08:00 Encounter [place] 350.1.13.10 ity [place].2.7.2.[place] [id number] [facility] [address] [place] 2022-08-25 2022-08-25 [facility] Radiology [facility] [[email or web address]] 1.2.840.114 102 [id number] Univers 15:45:00 15:59:00 Encounter [place] 350.1.13.10 ity of [place] 4.2.7.2.[place] [id number] [facility] [address] 2022-08-25 2022-08-25 Orders Doctor BEV 1.2.840.114 [id number] Univers 00:00:00 00:00:00 Only Unassigned, TRICIA 350.1.13.10 ity of [place] [facility] 4.2.7.2.686 David as [id number] [facility] [address] 2022-08-24 2022-08-24 Refdallas [facility] 1.2.840.114 103 [id number] Univers 00:00:00 00:00:00 Miya WOLFF 350.1.13.10 i ty of [place] 4.2.7.2.[place] [phone] [place] dical NAL [address] [place] [address] 2022-08-17 2022-08-17 Neo [facility] 1.2.840.114 102 [id number] Univers 00:00:00 00:00:00 Miya WOLFF 350.1.13.10 i ty of [place] 4.2.7.2.[place] [phone] [place] dical NAL 044 [facility] 2022-07-21 2022-07-21 Neo [facility] 1.2.840.114 102 [id number] Univers 00:00:00 00:00:00 Miya WOLFF 350.1.13.10 i ty of [place] 4[place]2.7.2.[place] [id number] [place] dical NAL 044 [facility] 2022-07-07 2022-07-07 Neo [facility] 1.2.840.114 [id number] Univers 00:00:00 00:00:00 Octavia MULTISPEC 350.1.13.10 ity of [facility] 4.2.7.2.686 [place] [employer] [id number] [facility] AND [place] [address] [place] [facility] 2022-06-24 2022-06-24 Neo [facility] 1.2.840.114 [id number] Univers 00:00:00 00:00:00 Miya WOLFF 350.1.13.10 i ty of [facility] 4.2.7.2.[place] [id number] [place] dical NAL 044 [facility] 2022-06-23 2022-06-23 Neo [facility] 1.2.840.114 [id number] Univers 00:00:00 00:00:00 Miya WOLFF 350.1.13.10 i ty of [place] 4.2.7.2.[place] [id number] [place] dicwy NAL [address] [place] [address] 2022-06-21 2022-06-21 Outpatient R JAVAN [facility] [id number] Univers 16:20:00 16:20:00 MIYA beatty [facility] 2022-06-14 2022-06-14 Outpatient R STEPHAN, [facility] [id number] Univers 16:00:00 16:00:00 ABBEY beatty [facility] 2022-06-12 2022-06-12 Neo [facility] 1.2.840.114 [id number] Univers 00:00:00 00:00:00 Octavia HERNADEZ 350.1.13.10 ity of [facility] 4.2.7.2.686 [place] [employer] [id number] [facility] AND [address] [facility] 2022-06-09 2022-06-09 Refdallas [facility] 1.2.840.114 100 [id number] Univers 00:00:00 00:00:00 Miya WOLFF 350.1.13.10 i ty of [facility] 4.2.7.2.[place] [id number] [place] dical NAL 044 [facility] 2022-06-07 2022-06-07 Hospital Radiology [facility] [[email or web address]] 1.2.840.114 100 [id number] Univers 15:44:21 23:59:00 Francy WOLFF 350.1.13.10 ity of [place].2.7.2.[place] [id number] [facility] [address] 2022-06-07 2022-06-07 Outpatient R RADIOLOGY [facility] [id number] Univers 15:43:47 15:43:47 ity of [facility] 2022-06-07 2022-06-07 Hospital Radiology [facility] [[email or web address]] 1.2.840.114 100 [id number] Univers 15:43:47 15:43:47 Francy WOLFF 350.1.13.10 ity of [place] 4.2.7.2.[place] [id number] [facility] [address] [place] 2022-06-03 2022-06-03 Outpatient R JAVAN [facility] [id number] Univers 14:00:00 14:29:10 MIYA rogerio [facility] 2022-06-03 2022-06-03 Office [facility] 1.2.840.114 100 [id number] [facility] 14:00:00 14:29:10 Visit Miya WOLFF 350.1.13.10 i ty of [place] 4[place].2.[place] [phone] [place] dical NAL [address] [place] [address] 2022-05-28 2022-05-28 Refill [facility] 1.2.840.114 100 [id number] Univers 00:00:00 00:00:00 Miay WOLFF 350.1.13.10 i ty of [place] 4.2.7.2.[place] [id number] [place] dical NAL [address] [place] [address] 2022-05-24 2022-05-24 Outpatient R STEPHAN [facility] [id number] Univers 16:00:00 16:00:00 ABBEY johnsonsanket [facility] 2022-05-12 2022-05-12 Outpatient R JAVAN [facility] [id number] Univers 15:40:00 15:40:00 MIYA sanket [facility] 2022-05-12 2022-05-12 Telephone [facility] 1.2.840.114 [id number] Univers 00:00:00 00:00:00 Miya WOLFF 350.1.13.10 i ty of [place] 4[place]2.7.2.[place] [id number] [place] dicwy NAL [address] [place] [address] 2022-05-12 2022-05-12 Telephone [facility] 1.2.737.149 [id number] Univers 00:00:00 00:00:00 Octavia HERNADEZ 350.1.13.10 ity of [place] 4.2.7.2.686 [place] CENTER [id number] [facility] [address] [place] [facility] 2022-04-21 2022-04-21 [facility] [id number] Univers 15:45:00 15:45:00 ABBEY beatty [facility] 2022-04-13 2022-04-13 [facility] 1.2.840.114 [id number] Univers 00:00:00 00:00:00 Miya WOLFF 350.1.13.10 i ty of [place] 4[place]2.7.2.[place] 509.1152365 [place] [address] 2022-03-30 2022-03-30 [facility] 1.2.840.114 [id number] Univers 00:00:00 00:00:00 Miya WOLFF 350.1.13.10 i ty of [place] 4[place]7.2.[place] [id number] [place] [address] 2022-02-18 2022-02-18 Out[facility] [id number] Univers 00:00:00 00:00:00 MIYA beatty [facility] 2022-02-17 2022-02-17 Telephone [facility] 1.2.840.114 [id number] Univers 00:00:00 00:00:00 Miya TIMMONS 350.1.13.10 it y [place] [id number] [facility] [address] 2022-02-10 2022-02-10 [facility] [id number] Univers 12:54:03 23:59:00 MIYA beatty [facility] 2022-02-10 2022-02-10 [facility] 1.2.840.114 [id number] Univers 12:54:03 23:59:00 Encounter Miya WOLFF 350.1.13.10 ity of [facility] 4.2.7.2.[place] [id number] [facility] [address] [place] 2022-02-03 2022-02-03 Emergency X [facility] ERT [id number] Univers 08:19:00 09:38:00 CAROLINA ity of [facility] 2022-02-03 2022-02-03 Emergency [facility] 1.2.840.114 [id number] Univers 08:19:00 09:38:00 Carolina Rendon NEW 350.1.13.10 ity of [place]2.7.2.[place] [id number] [facility] [address] [place] 2022-02-02 2022-02-02 Refill [facility] 1.2.840.114 [id number] Univers 00:00:00 00:00:00 Miya WOLFF 350.1.13.10 i ty of [place] 4[place].2.[place] [id number] [place] dical NAL 044 [facility] 2022-01-27 2022-01-27 Outpatient R [facility] [id number] [id number] Univers 16:00:00 17:05:13 MIYA rogerio [facility] 2022-01-27 2022-01-27 Office [facility] 1.2.840.114 [id number] Univers 16:00:00 17:05:13 Visit Miya WOLFF 350.1.13.10 i ty of [facility] 4.2.7.2.[place] [id number] [place] dical NAL 044 [facility] 2022-01-26 2022-01-26 Project Engineering Manager Sherry, Jimmy Lab Main [facility] [[email or web address]] 1.2.8 40.114 [id number] Univers 07:45:00 08:00:00 Visit Miya Edouard 350.1.13.10 ity of [facility] 4.2.7.2.[place] [id number] W[place] dical NAL 353 [facility] 2022-01-26 2022-01-26 Outpatient R [facility] 1042 [id number] Univers 07:45:00 07:45:00 MIYA beatty [facility] 2022-01-12 2022-01-12 [facility] 1.2.840.114 [id number] Univers 00:00:00 00:00:00 Miya WOLFF 350.1.13.10 i ty of [facility] 4.2.7.2.[place] [id number] [address] 2022-01-03 2022-01-03 [facility] 1.2.840.114 9 [id number] Univers 00:00:00 00:00:00 Miya WOLFF 350.1.13.10 i ty of [facility] 4.2.7.2.[place] [id number] [address] 2021-12-30 2021-12-30 [facility] 1.2.840.114 [id number] Univers 00:00:00 00:00:00 Miya WOLFF 350.1.13.10 i ty of [facility] 4.2.7.2.[place] 743.6045180 [address] 2021-12-29 2021-12-29 [facility] 1.2.840.114 [id number] Univers 00:00:00 00:00:00 Miya WOLFF 350.1.13.10 i ty of [facility] 4.2.7.2.[place] 551.2497672 [place] dicwy NAL [address] [place] [address] 2021-12-24 2021-12-24 [facility] 12.840.114 [id number] Univers 00:00:00 00:00:00 Miya WOLFF 350.1.13.10 i ty of [facility] 4.2.7.2.[place] [id number] [address] 2021-12-24 2021-12-24 [facility] 1.2.840.114 [id number] Univers 00:00:00 00:00:00 Miya WOLFF 350.1.13.10 i ty of [facility] 4.2.7.2.[place] [id number] [address] 2021-12-23 2021-12-23 Outpatient R [facility] [id number] [facility] 16:00:00 16:43:06 MIYA rogerio [facility] 2021-12-23 2021-12-23 Office [facility] 1.2.840.114 [id number] [facility] 16:00:00 16:43:06 Visit Miya WOLFF 350.1.13.10 i ty of [place]2.[place] [id number] [address] 2021-12-23 2021-12-23 Outpatient R [facility] [id number] [facility] 16:00:00 16:00:00 MIYA rogerio [facility] 2021-12-23 2021-12-23 Telephone [facility] 1.2.840.114 [id number] Univers 00:00:00 00:00:00 Miya WOLFF 350.1.13.10 i ty of [place]2.[place] 242.0033798 [address] 2021-12-19 2021-12-19 Refill [facility] 1.2.840.114 [id number] Univers 00:00:00 00:00:00 Miya WOLFF 350.1.13.10 i ty of [facility] 4.2.7.2.[place] [id number] [address] 2021-12-17 2021-12-17 Patient Doctor [facility] [[email or web address]] 1.2.840.114 [id number] Univers 00:00:00 00:00:00 Secure Msg UnassignedNEW 350.1.13.10 ity of [place] [facility] 4.2.7.2.[place] [id number] [address] 2021-12-09 2021-12-09 Telephone [facility] 1.2.840.114 [id number] Univers 00:00:00 00:00:00 Miya WOLFF 350.1.13.10 i ty of [place] 4[place].2.[place] [id number] [facility] [facility] 044 [facility] 2021-12-08 2021-12-08 [facility] [id number] [id number] Univers 15:40:00 16:27:17 MIYA johnsonsanket [facility] 2021-12-08 2021-12-08 Telemedici [facility] 1.2.840.114 [id number] Univers 15:40:00 16:27:17 ne Visit Miya WOLFF 350.1.13.10 ity of [place] 4[place]2.7.2.[place] [id number] [place] [address] 2021-12-06 2021-12-06 Patient [facility] 1.2.840.114 [id number] Univers 00:00:00 00:00:00 Secure Msg Miya WOLFF 350.1.13.10 ity of [place] 4.2.7.2.[place] 129.5589269 [facility] [facility] 044 [facility] 2021-12-03 2021-12-03 Project Engineering Manager Sherry, Adc Lab Main [facility] [[email or web address]] 1.2.8 40.114 [id number] Univers 07:45:00 08:00:00 Visit Miya Edouard 350.1.13.10 ity of [place] 4[place].2.[place] [id number] [facility] 353 [facility] 2021-12-03 2021-12-03 [facility] [id number] Univers 07:45:00 07:45:00 MIYA beatty [facility] 2021-12-03 2021-12-03 Orders Doctor PABLO 1.2.840.114 [id number] Univers 00:00:00 00:00:00 Only Unassigned, TRICIA 350.1.13.10 ity of [place] [facility] 4.2.7.2.686 David as [id number] [address] 2021-11-26 2021-11-26 Refdallas [facility] 1.2.840.114 [id number] Univers 00:00:00 00:00:00 Nathaly NEW 350.1.13.10 i ty of [place].2.[place] [id number] [facility] 044 [facility] 2021-11-19 2021-11-19 [facility] 1.2.840.114 [id number] Univers 00:00:00 00:00:00 Peter NEW 350.1.13.10 i ty of [place]2.[place] [id number] [address] 2021-10-28 2021-10-28 Project Engineering Manager Only, Ang Db Test [facility] [[email or web address]] 1.2.8 40.114 [id number] Univers 14:00:00 14:15:00 Visit [facility] 350.1.13.10 ity of [place] 4.2.7.2.686 David as GABRIELA?BLEA [id number] [address] OFFICE [facility] 2021-10-28 2021-10-28 Outpatient [facility] [id number] [facility] 14:00:00 14:00:00 [facility] 2021-10-24 Project Engineering Manager Only, Ang Db Test [facility] [[email or web address]] 1.2.8 40.114 [id number] Univers 09:30:00 09:45:00 Visit [facility] [id number] ity of [place] [id number] David as GABRIELA?BLEA [phone] [address] OFFICE [facility] 2021-10-24 2021-10-24 [facility] [id number] Univers 09:30:00 09:28:17 BRANDIEWY ity [facility] 2021-10-22 2021-10-22 [facility] 1.2.840.114 [id number] Univers 00:00:00 00:00:00 Secure Msg Miya WOLFF [id number] [facility] [id number] [phone] [address] 2021-10-05 2021-10-05 [facility] 1.2.840.114 [id number] Univers 00:00:00 00:00:00 Miya WOLFF 350.1.13.10 i ty [facility] [id number] [phone] [address] 2021-10-01 2021-10-01 [facility] [id number] Univers 16:30:00 17:17:32 NATHALY ity [facility] 2021-10-01 2021-10-01 [facility] 1.2.840.114 [id number] Univers 16:30:00 17:17:32 Visit Nathaly WOLFF 350.1.13.10 i ty [place] [id number] [address] 2021-10-01 2021-10-01 [facility] 1.2.840.114 [id number] Univers 00:00:00 00:00:00 Miya WOLFF 350.1.13.10 i ty [facility] 4[place]2.[place] [phone] [address] 2021-09-28 2021-09-28 Refill [facility] 1.2.840.114 [id number] Univers 00:00:00 00:00:00 Miya WOLFF 350.1.13.10 i ty [facility] [id number] [id number] [address] 2021-09-25 2021-09-25 [facility] 1.2.840.114 [id number] Univers 00:00:00 00:00:00 Miya WOLFF 350.1.13.10 i ty [place] [id number] [place] 044 [facility] 2021-09-24 2021-09-24 [facility] 1.2.840.114 [id number] Univers 00:00:00 00:00:00 Miya WOLFF 350.1.13.10 i ty [facility] 4[place] [phone] [place] 044 [facility] 2021-08-10 2021-08-10 [facility] [facility] [id number] Univers 15:40:00 15:40:00 MIYA beatty [facility] 2021-07-24 2021-07-24 [facility] 1.2.840.114 [id number] Univers 00:00:00 00:00:00 Myia WOLFF 350.1.13.10 i ty of [place] [phone] [place] dical NAL 044 [facility] 2021-07-23 2021-07-23 [facility] 1.2.840.114 [id number] Univers 00:00:00 00:00:00 Miya WOLFF 350.1.13.10 i ty [facility] 4.[place] [phone] [place] dical NAL 044 [facility] 2021-06-18 2021-06-[address]840.114 9 [id number] Univers 00:00:00 00:00:00 Miya WOLFF 350.1.13.10 i ty of [place] 4[place] [phone] [place] dical NAL 225 [facility] 2021-06-14 2021-06-14 [address]840[address]114 9 [id number] Univers 00:00:00 00:00:00 Miay WOLFF 350.1.13.10 i ty of [place] 4.2.[place].2.[place] [phone] [place] dical NAL [address] [place] [address] 2021-06-10 2021-06-10 Telephone [facility] 1.2.840.114 [id number] Univers 00:00:00 00:00:00 Miya WOLFF 350.1.13.10 i ty [facility] 4.2.7.2.[place] [phone] [place] dical NAL [address] [place] [address] 2021-06-08 2021-06-08 [facility] 1.2.840.114 [id number] Univers 00:00:00 00:00:00 Miya WOLFF 350.1.13.10 i ty [facility] 4.2.7.2.[place] [phone] [place] dical NAL [address] [place] [address] 2021-05-31 2021-05-31 Telephone [facility] 1.2.840.114 9 [id number] Univers 00:00:00 00:00:00 Miya WOLFF 350.1.13.10 i ty of [place] 4.2.7.2.[place] [phone] [place] dical NAL [address] [place] [address] 2021-05-27 2021-05-27 Refill [facility] 1.2.840.114 [id number] Univers 00:00:00 00:00:00 Miya WOLFF 350.1.13.10 i ty [facility] 4.2.7.2.[place] [phone] [place] dical NAL [address] [place] [address] 2021-05-27 2021-05-27 Telephone [facility] 1.2.840.114 [id number] Univers 00:00:00 00:00:00 Miya WOLFF 350.1.13.10 i ty [facility] 4.2.7.2.[place] [phone] [place] dical NAL [address] [place] [address] 2021-05-20 2021-05-20 Anuja BERRY [facility] [id number] Univers 15:30:00 15:32:49 NIKA beatty of [facility] 2021-05-20 2021-05-20 Office Adum, [facility] [[email or web address]] 1.2.840.114 [id number] Univers 15:30:00 15:32:49 Visit Nika Tl WOLFF 350.1.13.10 ity of [place] 4.2.7.2.[place] [phone] [place] dicwy CRISTOBAL 134 [facility] 2021-05-18 2021-05-18 Refdallas [facility] 1.2.840.114 [id number] Univers 00:00:00 00:00:00 [facility] 350.1.13.10 it y of [place] 4.2.7.2.686 David as GABRIELA?BLEA [phone] [address] OFFICE [facility] 2021-05-13 2021-05-13 Telephone [facility] 1.2.840.114 [id number] Univers 00:00:00 00:00:00 Miya WOLFF 350.1.13.10 i ty [facility] 4.2.7.2.[place] [phone] W[place] dicrosalba NAL [address] [place] [address] 2021-05-11 2021-05-11 Telephone [facility] 1.2.840.114 [id number] Univers 00:00:00 00:00:00 Miya WOLFF 350.1.13.10 i ty of [facility] 4.2.7.2.[place] [phone] W[place] dicrosalba JAIN [address] [place] [address] 2021-05-10 2021-05-10 Telephone [facility] 1.2.840.114 [id number] Univers 00:00:00 00:00:00 Miya WOLFF 350.1.13.10 i ty [facility] 4.2.7.2.[place] [phone] [place] dical NAL [address] [place] [address] 2021-05-10 2021-05-10 Telephone [facility] 1.2.840.114 [id number] Univers 00:00:00 00:00:00 Miya WOLFF 350.1.13.10 i ty of [place] 4.2.7.2.[place] [phone] [place] dical NAL 044 [facility] 2021-05-06 2021-05-06 Outpatient R [facility] [id number] Univers 09:05:00 14:37:00 [facility] 2021-05-06 2021-05-06 [facility] 1.2.840.114 [id number] Univers 09:05:00 14:37:00 Encounter Nika WOLFF 350.1.13.10 ity of [place] 4.2.[place].2.[place] SUR[place]ICAL [phone] [facility] [address] [place] 2021-05-06 2021-05-06 Outpatient R [facility] [id number] Univers 09:05:00 14:37:00 [facility] 2021-05-06 2021-05-06 Surgery [facility] 1.2.840.114 [id number] Univers 12:31:00 14:31:00 Nika WOLFF 350.1.13.10 ity [facility] 4.2.7.2.[place] [phone] [facility] [address] [place] 2021-05-06 2021-05-06 Telephone [facility] 1.2.840.114 9 [id number] Univers 00:00:00 00:00:00 Miya WOLFF 350.1.13.10 i ty of [place] 4.2.7.2.[place] [phone] [place] dical NAL [address] [place] [address] 2021-05-05 2021-05-05 Outpatient R [facility] [id number] [id number] Univers 16:00:00 16:31:52 MIYA beatty [facility] 2021-05-05 2021-05-05 Office [facility] 1.2.840.114 [id number] Univers 16:00:00 16:31:52 Visit Miya WOLFF 350.1.13.10 i ty of [place].2.[place] [phone] [place] dical NAL 044 [facility] 2021-05-04 2021-05-04 Project Engineering Manager Sherry, Adc Lab Main [facility] [[email or web address]] 1.2.8 40.114 [id number] Univers 12:15:00 12:30:00 Visit AdumNika NEW 350.1.13.10 ity of [place] 4[place]2.[place].2.[place] [phone] Me dical NAL 353 [facility] 2021-05-04 2021-05-04 Outpatient R [facility] [id number] Univers 12:15:00 12:15:00 ity of [facility] 2021-05-04 2021-05-04 Laboratory Only, Adc Test [facility] [[email or web address]] 1.2.840. 114 [id number] Univers 12:00:00 12:15:00 Only AdumNika NEW 350.1.13.10 ity [facility] 4.2.7.2.[place] [phone] [facility] 353 [place] 2021-05-04 2021-05-04 Outpatient R ADUM, [facility] [id number] Univers 12:00:00 12:00:00 NIKA ity of [facility] 2021-05-04 2021-05-04 Orders Doctor BEV 1.2.840.114 [id number] Univers 00:00:00 00:00:00 Only Unassigned, TRICIA 350.1.13.10 [facility] 4.2.7.2.686 David as [phone] [facility] [address] [place] 2021-04-22 2021-04-22 Outpatient R ADUM, [facility] [id number] Univers 14:30:00 15:09:50 NIKA ity of [facility] 2021-04-22 2021-04-22 Office Adum, [facility] [[email or web address]] 1.2.840.114 [id number] Univers 14:30:00 15:09:50 Visit Nika Tl WOLFF 350.1.13.10 ity of [place] 4[place]2.[place].2.[place] [phone] [place] dical NAL 134 [facility] 2021-04-22 2021-04-22 Outpatient R ADUM, [facility] [id number] Univers 15:00:00 15:00:00 NIKA beatty [facility] 2021-04-22 2021-04-22 [facility] 1.2.840.114 [id number] Univers 00:00:00 00:00:00 Miya WOLFF 350.1.13.10 i ty of [facility] 4.2.7.2.[place] [phone] [address] 2021-04-20 2021-04-20 [facility] [id number] Univers 16:15:00 16:50:21 ABBEY beatty [facility] 2021-04-20 2021-04-20 Office [facility] 1.2.979.253 [id number] Univers 16:15:00 16:50:21 Visit Abbey WOLFF 350.1.13.10 i ty of [facility] 4.2.7.2.[place] [phone] [facility] 188 [facility] 2021-04-19 2021-04-19 [facility] 1.2.840.114 [id number] Univers 00:00:00 00:00:00 Miya WOLFF 350.1.13.10 i ty of [facility] 4.2.7.2.[place] [phone] [address] 2021-04-12 2021-04-12 Telephone [facility] 1.2.840.114 [id number] Univers 00:00:00 00:00:00 Miya WOLFF 350.1.13.10 i ty of [facility] 4.2.7.2.[place] [id number] [address] 2021-04-02 2021-04-02 Outpatient R [facility] DE[facility] [id number] Univers 08:03:00 10:35:00 ABBEY beatty [facility] 2021-04-02 2021-04-02 [facility] 1.2.840.114 [id number] Univers 08:03:00 10:35:00 Encounter Abbey WOLFF 350.1.13.10 ity of [place] 4.2.7.2.[place] [phone] [facility] [address] 2021-04-02 2021-04-02 Surgery [facility] 1.2.865.752 [id number] Univers 09:32:00 10:30:00 Abbey WOLFF 350.1.13.10 i ty of [place] 4.2.7.2.[place] [phone] [facility] [address] 2021-04-02 2021-04-02 Orders Doctor BEV 1.2.840.114 [id number] Univers 00:00:00 00:00:00 Only Unassigned, TRICIA 350.1.13.10 ity of [facility] 4.2.7.2.686 David as [phone] [facility] [address] [place] 2021-03-19 2021-03-19 [facility] [id number] Univers 15:30:00 15:30:00 NIKA itsanket of [facility] 2021-03-16 2021-03-16 Telephone [facility] 1.2.705.103 [id number] Univers 00:00:00 00:00:00 Nika Boothe NEW 350.1.13.10 it[place] of [place] 4[place]2.[place].2.[place] [phone] [place] dical [facility] [address] 2021-03-10 2021-03-10 [facility] 1.2.840.114 [id number] Univers 13:48:49 23:59:00 Encounter Eva WOLFF 350.1.13.10 it[place] of [place]2.[place].2.[place] [id number] [facility] [address] [place] 2021-03-10 2021-03-10 Outpatient [facility] [id number] Univers 13:46:21 13:47:00 EVA beatty o f [facility] 2021-03-10 2021-03-10 [facility] 1.2.840.114 [id number] Univers 13:46:21 13:47:00 Encounter Eva WOLFF 350.1.13.10 ity of [place] 4.2.7.2.[place] [id number] [facility] [address] 2021-03-04 2021-03-04 [facility] [id number] Univers 12:51:00 16:33:00 NIKA ity of [facility] 2021-03-04 2021-03-04 Hospital [facility] 1.2.840.114 [id number] Univers 12:51:00 16:33:00 Encounter Nika WOLFF 350.1.13.10 ity of [place] 4.2.7.2.[place]ICAL [phone] [facility] [address] 2021-03-04 2021-03-04 Surgery [facility] 1.2.840.114 [id number] Univers 13:25:00 15:26:00 Nika WOLFF 350.1.13.10 ity of [place] 4.2.7.2.[place] [id number] [facility] [address] 2021-03-04 2021-03-04 Telephone [facility] 1.2.825.836 [id number] Univers 00:00:00 00:00:00 Eva WOLFF 350.1.13.10 ity of [place] 4.2.7.2.[place] [phone] [place] dical NAL 059 [facility] 2021-03-04 2021-03-04 Orders Doctor BEV 1.2.840.114 [id number] Univers 00:00:00 00:00:00 Only Unassigned, TRICIA 350.1.13.10 ity of [place] [facility] 4.2.7.2.686 David as [phone] [facility] [address] 2021-03-02 2021-03-02 Project Engineering Manager 1, Adc Lab [facility] [[email or web address]] 1.2.840.114 [id number] Univers 11:38:41 11:53:41 Visit Adminor, Nika WOLFF 350.1.13.10 ity of [place] 4.2.7.2.[place] [phone] [facility] [address] [place] 2021-03-02 2021-03-02 Outpatient R [facility] [id number] Univers 11:30:00 11:30:00 ity [facility] 2021-03-02 2021-03-02 Outpatient R ADUM, [facility] [id number] Univers 11:30:00 11:30:[address] [facility] 2021-03-02 2021-03-02 Orders Doctor PABLO 1.2.840.114 [id number] Univers 00:00:00 00:00:00 Only Unassigned, TRICIA 350.1.13.10 ity of [facility] 4.2.7.2.686 David as [phone] [facility] [address] [place] 2021-03-01 2021-03-01 Outpatient R BRADY, [facility] [id number] Univers 00:00:00 00:00:00 EVA johnsony o [facility] 2021-03-01 2021-03-01 Outpatient R BRADY, [facility] [id number] Univers 00:00:00 00:00:00 EVA johnsony o f [facility] 2021-02-26 2021-02-26 Outpatient R ADUM, [facility] [id number] Univers 16:00:00 17:26:37 NIKA sanket [facility] 2021-02-26 2021-02-26 Outpatient R ADUM, [facility] [id number] Univers 16:00:00 17:26:[address] [facility] 2021-02-26 2021-02-26 Office Adum, [facility] [[email or web address]] 1.2.840.114 [id number] Univers 15:40:04 17:26:37 Visit Nika WOLFF 350.1.13.10 ity [facility] 4.2.7.2.[place] [phone] [place] [address] [address] [place] 2021-02-26 2021-02-26 Outpatient R ADUM, [facility] [id number] Univers 16:00:00 16:00:00 NIKA sanket [facility] 2021-02-26 2021-02-26 Prep For Adum, [facility] [[email or web address]] 1.2.840.114 [id number] Univers 00:00:00 00:00:00 Surgery Nika WOLFF 350.1.13.10 ity [facility] 4.2.7.2.[place] [phone] [facility] [facility] 134 [facility] 2021-02-26 2021-02-26 Orders Doctor PABLO 1.2.840.114 [id number] Univers 00:00:00 00:00:00 Only Unassigned, TRICIA 350.1.13.10 ity of [place] [facility] 4.2.7.2.686 David as [phone] [address] 2021-02-25 2021-02-25 Prep Danitza [facility] 1.2.840.114 [id number] Univers 00:00:00 00:00:00 Surgery Diann Espitia NEW 350.1.13.10 ity of [facility] 4.2.7.2.[place] [phone] [facility] 204 [facility] 2021-02-24 2021-02-24 Orders Doctor PABLO 1.2.840.114 [id number] Univers 00:00:00 00:00:00 Only Unassigned, TRICIA 350.1.13.10 ity of [place] [facility] 4.2.7.2.686 David as [phone] [address] 2021-02-23 2021-02-23 [facility] [id number] Univers 14:30:00 15:55:10 ABBEY beatty [facility] 2021-02-23 2021-02-23 Office [facility] 1.2.035.131 [id number] Univers 14:21:20 15:55:10 Visit Abbey WOLFF 350.1.13.10 i ty of [facility] 4.2.7.2.[place] [phone] [facility] [facility] 188 [facility] 2021-02-23 2021-02-23 Outpatient [facility] [id number] Univers 14:30:00 14:30:00 ABBEY beatty [facility] 2021-02-23 2021-02-23 Orders Doctor BEV 1.2.840.114 [id number] Univers 00:00:00 00:00:00 Only Unassigned, TRICIA 350.1.13.10 ity of [place] [facility] 4.2.7.2.686 David as [phone] [address] 2021-02-17 2021-02-17 Outpatient [facility] [id number] Univers 14:10:00 23:59:00 EVA calderón [facility] 2021-02-17 2021-02-17 [facility] 1.2.840.114 [id number] Univers 14:10:00 23:59:00 Encounter Clovistaylor NEW 350.1.13.10 ity of [facility] 4.2.7.2.[place] [id number] [address] 2021-02-17 2021-02-17 Outpatient [facility] [id number] Univers 15:40:00 14:10:44 EVA calderón [facility] 2021-02-17 2021-02-17 Outpatient [facility] [id number] Univers 15:40:00 14:10:44 EVA calderón [facility] 2021-02-17 2021-02-17 Office [facility] 1.2.840.114 [id number] Univers 13:16:10 14:10:44 Visit Eva WOLFF 350.1.13.10 ity of [facility] 4.2.7.2.[place] [phone] [facility] [facility] 059 [facility] 2021-02-17 2021-02-17 Office [facility] 1.2.840.114 [id number] Univers 13:16:10 14:10:44 Visit Rolandchristiantaylor NIXXAVIER 350.1.13.10 ity of [facility] 4.2.7.2.[place] [id number] [address] 2021-02-16 2021-02-16 Telephone [facility] 1.2.840.114 [id number] Univers 00:00:00 00:00:00 Miya WOLFF 350.1.13.10 i ty of [place] 4.2.7.2.[place] [id number] [place] dical NAL 044 [facility] 2021-02-11 2021-02-11 Patient [facility] 1.2.840.114 [id number] Univers 00:00:00 00:00:00 Secure Msg Miya WOLFF 350.1.13.10 ity of [facility] 4.2.7.2.[place] [phone] [place] dical NAL 044 [facility] 2021-02-11 2021-02-11 Telephone [facility] 1.2.840.114 [id number] Univers 00:00:00 00:00:00 Miya WOLFF 350.1.13.10 i ty of [facility] 4.2.7.2.[place] [id number] [place] dical NAL 044 [facility] 2021-02-10 2021-02-10 [facility] 1.2.840.114 [id number] Univers 10:33:05 23:59:00 Encounter Miya Wolff 350.1.13.10 ity of [place] 4.2.7.2.686 [place] [phone] [address] 2021-02-10 2021-02-10 [facility] [id number] Univers 10:33:05 23:59:00 MIYA beatty [facility] 2021-02-09 2021-02-09 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 1.2.840.114 [id number] Univers 14:35:17 15:52:52 Visit Nika Wolff 350.1.13.10 ity of [place] 4[place]2.7.2.[place] [phone] [place] dical nal 134 [facility] 2021-02-09 2021-02-09 Outpatient R [facility] [id number] Univers 15:00:00 15:00:00 INKA beatty [facility] 2021-02-08 2021-02-[address] [facility] 1.2.558.974 [id number] Univers 00:00:00 00:00:00 Bev Wolff 350.1.13.10 i ty of [place].2.7.2.686 [place] [phone] [facility] 188 [facility] 2021-02-03 2021-02-03 [facility] 1.2.840.114 [id number] Univers 11:49:31 23:59:00 Encounter Miya Wolff 350.1.13.10 ity of [place] 4.2.7.2.686 [place] [id number] [address] 2021-02-03 2021-02-03 Outpatient R [facility] [id number] Univers 00:00:00 00:00:00 MIYA alexsanket [facility] 2021-02-03 2021-02-03 Telephone [facility] 1.2.840.114 [id number] Univers 00:00:00 00:00:00 Miya Wolff 350.1.13.10 i ty of [place]2.7.2.[place] [phone] [place] dical nal 044 [facility] 2021-01-26 2021-01-26 Letter [facility] 1.2.840.114 [id number] Univers 00:00:00 00:00:00 (Out) Miya Wolff 350.1.13.10 i ty of [place] 4[place]2.7.2.[place] [phone] [place] dical nal 044 [facility] 2021-01-21 2021-01-21 Telephone [facility] 1.2.840.114 [id number] Univers 00:00:00 00:00:00 Miya Wolff 350.1.13.10 i ty of [place] 4.2.7.2.[place] [phone] [place] dical nal 044 [facility] 2021-01-20 2021-01-20 Office [facility] 1.2.840.114 [id number] Univers 15:33:31 17:02:48 Visit Miya Wolff 350.1.13.10 i ty of [place] 4.2.7.2.[place] [phone] [place] dical nal 044 [facility] 2021-01-20 2021-01-20 [facility] [id number] Univers 16:00:00 16:00:00 MIYA beatty [facility] 2021-01-07 2021-01-07 Telephone [facility] 1.2.840.114 [id number] Univers 00:00:00 00:00:00 Miya Wolff 350.1.13.10 i ty of [place] 4[place]2.7.2.[place] [phone] [place] dical nal 231 [facility] 2020-12-11 2020-12-11 Outpatient R BUCKY [facility] [id number] Univers 15:40:00 15:40:00 RUSSELL beatty [facility] 2020-12-11 2020-12-11 Imm/Inj Nurse, Adc Pob Immunization [facility] [[email or web address]] 1.2.840.114 [id number] Univers 11:44:57 11:45:04 Visit Russell Lawler 350.1.13 .10 ity [facility] 4.2.7.2.[place] [phone] [place] dical nal 421 [facility] 2020-11-14 2020-11-14 Imm/Inj Vaccine, Adc Family [facility] [[email or web address]] 1.2.84 0.114 [id number] Univers 13:56:15 14:06:15 Visit Zac [facility] 350.1.13.10 ity of [place] 4.2.7.2.686 David as Professio [phone] [address] Office [facility] 2020-11-14 2020-11-14 Outpatient R ZAC [facility] [id number] Univers 13:30:00 13:30:00 [facility] 2020-10-24 2020-10-24 Telephone Provider, [facility] [[email or web address]] 1.2.840.114 [id number] Univers 00:00:00 00:00:00 [facility] 350.1.13.10 ity of Care [place] 4.2.7.2.686 David as Professio [phone] [address] Office [facility] 2020-10-22 2020-10-22 Urgent Provider, [facility] [[email or web address]] 1.2.840.114 [id number] Univers 10:21:57 11:20:22 Care [facility] 350.1.13.10 ity of [place] 4.2.7.2.686 David as Professio [phone] [address] Office [facility] 2020-10-22 2020-10-22 Outpatient R GUICHO [facility] [id number] Univers 10:20:00 10:20:[address] [facility] 2020-07-03 2020-07-03 Outpatient [facility] [id number] Univers 10:00:00 10:00:[address] [facility] 2020-07-02 2020-07-02 [facility] 1.2.840.114 [id number] Univers 00:00:00 00:00:00 Outreach [facility] [id number] i ty of [facility] [place].2.[place] [phone] [address] 2020-04-23 2020-04-23 Outpatient R JAVAN [facility] [id number] Univers 16:20:00 16:20:[address] [facility] 2020-01-28 2020-01-28 [facility] 1.2.840.114 [id number] 00:00:00 00:00:00 Miya Wolff [id number] [place] [id number] Professio [phone] [address] 2020-01-28 2020-01-28 [facility] 1.2.840.114 [id number] Univers 00:00:00 00:00:00 Miya Wolff [id number] i [id number] [phone] [address] 2020-01-21 2020-01-21 Office [facility] 1.2.840.114 [id number] Univers 15:55:21 16:32:24 Visit Miya Wolff [id number] i ty of [id number] [phone] [address] 2020-01-21 2020-01-21 [facility] 1.2.840.114 [id number] 15:55:21 16:32:24 Visit Miya Wolff [id number] [place] [id number] Professio [phone] [address] 2020-01-21 2020-01-21 [facility] [id number] Univers 16:00:00 16:00:00 MIYA rogerio [facility] 2020-01-15 2020-01-15 [facility] [id number] Univers 15:00:00 15:00:00 MIYA beatty [facility] 2020-01-03 2020-01-03 Transition Marsha Copeland 1.2.840.114 [id number] Univers 00:00:00 00:00:00 of Kathrin Mueller [id number] ity [id number] [phone] [address] 2020-01-01 2020-01-01 Emergency [facility] [id number] Univers 14:37:00 17:46:00 Ramirez [place] [id number] i [id number] [phone] [address] 2020-01-01 2020-01-01 [facility] 1.2.840.114 [id number] Univers 13:13:43 14:23:28 Visit Miya Nixton 350.1.13.10 i ty of [place].2.686 [place] [facility] [phone] [place] [address] [place] [address] 2020-01-01 2020-01-01 [facility] [id number] Univers 13:20:00 13:20:00 MIYA johnsonsanket [facility] 2019-12-30 2019-12-30 [facility] [id number] Univers 11:40:00 11:40:00 GEORGE alexsanket [facility] 2019-12-30 2019-12-30 Laboratory Lab, Adc Fam Pob I [facility] [[email or web address]] 1.2. 840.114 [id number] Univers 10:16:20 10:36:20 Only Ileana Gilnupur Ruiz 350.1.13.10 ity of [place] 4.2.7.2.686 David as Professio [phone] [address] 2019-12-30 2019-12-30 [facility] 1.2.840.114 [id number] Univers 00:00:00 00:00:00 (Out) Miya Ruiz 350.1.13.10 it y of [place] 4.2.7.2.686 David as Professio [phone] [address] 2019-11-14 2019-11-14 Outpatient [facility] [id number] Univers 14:40:00 14:40:00 GEORGE alexsanket [facility] 2019-11-14 2019-11-14 Project Engineering Manager Lab, Adc Fam Pob I [facility] [[email or web address]] 1.2. 840.114 [id number] Univers 14:18:15 14:37:06 Visit George Gil 350.1.13.10 ity of [place] 4.2.7.2.686 David as Professio [phone] [place] dical [place]al [address] [place] [address] Building [facility] 2019-10-15 2019-10-15 Laboratory Lab, Adc Fam Pob I [facility] [[email or web address]] 1.2. 840.114 [id number] Univers 13:23:22 13:43:22 Only George Gil 350.1.13.10 ity of [place] 4.2.7.2.686 David as Professio [phone] [place] dical [place]al [address] [place] [address] [facility] 2019-10-15 2019-10-15 Outpatient [facility] [id number] Univers 13:20:00 13:20:00 GEORGE alexsanket [facility] 2019-08-28 2019-08-28 [facility]patient [facility] [id number] Univers 09:01:21 23:59:00 MARY beatty [facility] 2019-08-28 2019-08-28 [facility] 1.2.840.114 [id number] Univers 09:01:00 23:59:00 Encounter Mary A [place] 350.1.13.10 ity of [place] 4.2.7.2.686 [place] [facility] [phone] [facility] [address] [place] 2019-08-28 2019-08-28 Outpatient [facility] [id number] Univers 08:00:00 08:00:00 MIYA beatty [facility] 2019-08-28 2019-08-28 Telephone BEV Harley 1.2.309.590 [id number] Univers 00:00:00 00:00:00 Mary Nupur TRICIA 350.1.13.10 i ty [facility] 4.2.7.2.686 David as [phone] [facility] [address] [place] 2019-06-03 2019-06-03 [facility] 1.2.840.114 [id number] Univers 13:49:16 14:41:30 Visit [facility] 350.1.13.10 it y of [place] 4.2.7.2.686 David as Professio [phone] Me dical nal [address] [place] [address] [facility] One 2019-06-03 2019-06-03 Letter Jeffery [facility] [[email or web address]] 1.2.840.114 [id number] Univers 00:00:00 00:00:00 (Out) [facility] 350.1.13.10 it y of [place] 4.2.7.2.686 David as Professio [phone] [facility] 044 [facility] One 2019-06-03 2019-06-03 Telephone Jeffery [facility] [[email or web address]] 1.2.785.255 [id number] Univers 00:00:00 00:00:00 [facility] 350.1.13.10 it y of [place] 4.2.7.2.686 David as Professio [phone] [facility] 044 [facility] One 2018-12-14 2018-12-14 Orders Doctor BEV 1.2.840.114 [id number] Univers 00:00:00 00:00:00 Only Unassigned, TRICIA 350.1.13.10 ity of [place] [facility] 4.2.7.2.686 David as [phone] [address] 2018-12-04 2018-12-04 Ancillary Sherley Lofton [facility] [[email or web address]] 1.2.840 .114 [id number] Univers 10:53:20 11:38:20 Visit Rigoberto Diez 350.1.13.10 ity of [place].2.[place] Professio [phone] [place] dicwy nal [address] [facility] 2018-11-28 2018-11-28 Telephone Kevin Valadez [facility] [[email or web address]] 1.2.840.114 [id number] Univers 00:00:00 00:00:00 C New 350.1.13.10 i ty of [place]2.[place].2.[place] Profess[place] [phone] [facility] nal 044 [facility] 2018-11-25 2018-11-25 Emergency Dharmesh [facility] [[email or web address]] 1.2.715.178 [id number] Univers 12:54:02 16:54:00 Betito Wolff 350.1.13.10 i ty of [place]2.7.2.686 [place] [phone] [facility] [address] 2018-11-25 2018-11-25 Orders Doctor BEV 1.2.840.114 [id number] Univers 00:00:00 00:00:00 Only Unassigned, TRICIA 350.1.13.10 ity of [place] [facility] 4.2.7.2.686 David as [phone] [facility] [address] 2018-11-22 2018-11-22 Ancillary Sherley Lofton [facility] [[email or web address]] 1.2.840 .114 [id number] Univers 10:57:21 16:41:21 Visit Rg Rigoberto Wolff 350.1.13.10 ity of [place]2.[place].2.[place] Profess[place] [phone] [place] dical [place] [address] [facility] 2018-11-20 2018-11-20 Ancillary Sherley Lofton [facility] [[email or web address]] 1.2.840 .114 [id number] Univers 11:02:45 11:47:45 Visit Rg Rigoberto Nixton 350.1.13.10 ity of [place]2.[place].2.[place] Profess[place] [phone] [place] dical formerly [facility], [facility] 179 [facility] 2018-11-16 2018-11-16 [facility] 1.2.840.114 [id number] Univers 09:44:34 23:59:00 Encounter Health 350.1.13.10 it[place] of [place]2.7.2.686 [place] [phone] [facility] [address] [place] [address] 2018-11-16 2018-11-16 [facility] 1.2.840.114 [id number] Univers 09:44:18 23:59:00 Encounter Health 350.1.13.10 [place].2.[place] Philip [phone] [facility] [address] [place] [address] 2018-11-16 2018-11-16 Office [facility] 1.2.840.114 [id number] Univers 09:12:01 10:21:34 Visit Health 350.1.13.10 it y of [place]2.7.2.686 [place] [phone] [place] [address] [address] 2018-11-15 2018-11-15 Kevin Stein [facility] [[email or web address]] 1.2.840.114 [id number] Univers 00:00:00 00:00:00 Rosemary Wolff 350.1.13.10 i ty of [place] 4[place]2.[place].2.[place] Profess[place] [phone] [place] dical [place]al [address] 2018-11-13 2018-11-13 Ancillary Carmen Mott [facility] [[email or web address]] 1 .2.840.114 [id number] [facility] 10:50:44 11:00:07 Visit Rigoberto Diez 350.1.13.10 ity of [place] 4[place]2.[place].2.[place] Profess[place] [phone] [place]ical [place]al [address] [facility] Results Test Description Test Time Test Comments Results Result Comments Source TROPONIN I 2022-12-01 18:18:01 Test Item Value Reference Range Interpretation Comme nts TROPONIN I (test code = 0045883440) 0.005 ng/mL <=0.034 MISAEL (test code = MISAEL) Reference (Normal) Range (defined by the 99th percentile reference limit): <= 0.034 ng/mL Note: Cardiac troponin begins to rise 3-4 hours after the onset of ischemia. Repeat in 4-6 hours if the sample was drawn within 3-4 hours of the onset of the symptom and found normal. Diagnosis of myocardial injury is made with acute changes in cTn concentrations with at least one serial sample above the 99th percentile upper reference limit (URL), taken together with the patient's clinical presentation. Biotin has been reported to cause a negative bias, interpret results relative to patient's use of biotin. Lab Interpretation (test code = Normal 65774-8) [facility] ([id number])2022-12-01 18:08:16 Test Item Value Reference Range Interpretation Comments NA (test code = 139 mmol/L 135-145 7653673798) K (test code = 4.0 mmol/L 3.5-5.0 4364888214) CL (test code = 106 mmol/L 98-108 8858586030) CO2 TOTAL (test code = 26 mmol/L 23-31 2735526774) AGAP (test code = 7 2-16 0250825343) BUN (test code = 13 mg/dL 7-23 6518404680) GLUCOSE (test code = 98 mg/dL 70-110 8902227855) CREATININE (test code = 0.59 mg/dL 0.50-1.04 8464564571) TOTAL BILI (test code = 0.4 mg/dL 0.1-1.3 0855896893) CALCIUM (test code = 7.8 mg/dL 8.6-10.6 L 8628304687) T PROTEIN (test code = 6.3 g/dL 6.3-8.2 2938789286) ALBUMIN (test code = 3.6 g/dL 3.5-5.0 1833742267) ALK PHOS (test code = 36 U/L 34-122 7079504417) ALTv (test code = 18 U/L 5-35 1742-6) AST(SGOT) (test code = 20 U/L 13-40 1602481117) eGFR (test code = 111.2 mL/min/1.73m2 5366092313) MISAEL (test code = MISAEL) Association of Glomerular Filtration Rate (GFR) and Staging of Kidney Disease* + --+ --+ ------+| GFR (mL/min/1.73 m2) ?| With Kidney Damage ?| ?Without Kidney Damage+ --------+ --------+ +| ?>90 ?| ?Stage one ?| ? Normal ?+ ---+ ---+ -------+| ?60-89 ?| ?Stage two ?| ? Decreased GFR ? + --+ --+ ------+| ?30-59 ?| ?Stage three ?| ? Stage three ? + --+ --+ ------+| ?15-29 ?| ?Stage four ? | ? Stage four ?+ ---+ ---+ -------+| ?<15 (or dialysis) ? ?| ?Stage five ? | ? Stage five ?+ ---+ ---+ -------+ *Each stage assumes the associated GFR [...] or abnormalities in imaging tests). Lab Interpretation Abnormal (test code = 94061-7) [facility] 18:08:01 Test Item Value Reference Range Interpretation Comments LIPASE (test code = 3631399016) 50 U/L 0-220 Lab Interpretation (test code = Normal 46540-9) [facility] [id number] 17:55:37 Test Item Value Reference Range Interpretation Comments WBC (test code = 5.65 See_Comment [Automated 3390-2) message] The sy stem which generated this result transmitted reference range : 4.30 - 11.10 10*3/?L. The reference range was not used to interpret this result as normal/abnormal . RBC (test code = 3.92 See_Comment L [Automated 859-8) message] The sy stem which generated this result transmitted reference range : 3.93 - 5.25 10*6/?L. The reference range was not used to interpret this result as normal/abnormal . HGB (test code = 11.9 g/dL 11.6-15.0 718-7) HCT (test code = 35.8 % 35.7-45.2 4544-3) MCV (test code = 91.3 fL 80.6-95.5 787-2) MCH (test code = 30.4 pg 25.9-32.8 785-6) MCHC (test code = 33.2 g/dL 31.6-35.1 786-4) RDW-SD (test code = 45.7 fL 39.0-49.9 66293-9) RDW-CV (test code = 13.6 % 12.0-15.5 788-0) PLT (test code = 295 See_Comment [Automated 777-3) message] The sy stem which generated this result transmitted reference range : 166 - 358 10*3/ ?L. The reference r brittney was not used to interpret this result as normal/abnormal . MPV (test code = 9.8 fL 9.5-12.9 92319-0) NRBC/100 WBC (test 0.0 See_Comment [Automat ed code = 7076702922) message] The system which generated this result transmitted reference range : 0.0 - 10.0 /100 WBCs. The refer ence range was not u sed to interpret th is result as normal/abnormal . NRBC x10^3 (test code See_Comment [Auto mated = 7120326266) message] The s ystem which generated this result transmitted reference range : 10*3/?L. The reference range was not used to interpret this result as normal/abnormal . GRAN MAT (NEUT) % 66.5 % (test code = 770-8) IMM GRAN % (test code 0.20 % = 2962323328) LYMPH % (test code = 24.6 % 736-9) MONO % (test code = 5.3 % 5905-5) EOS % (test code = 2.7 % 713-8) BASO % (test code = 0.7 % 706-2) GRAN MAT x10^3(ANC) 3.76 10*3/uL 1.88-7.09 (test code = 4465096035) IMM GRAN x10^3 (test 0.00-0.06 code = 9054083044) LYMPH x10^3 (test code 1.39 10*3/uL 1.32-3.29 = 731-0) MONO x10^3 (test code 0.30 10*3/uL 0.33-0.92 L = 742-7) EOS x10^3 (test code = 0.15 10*3/uL 0.03-0.39 711-2) BASO x10^3 (test code 0.04 10*3/uL 0.01-0.07 = 704-7) Lab Interpretation Abnormal (test code = 77373-1) [facility] [id number] 20:08:39 Test Item Value Reference Range Interpretation Comments TROPONIN I (test code = 0.001 ng/mL <=0.034 4738188106) MISAEL (test code = MISAEL) Reference (Normal) Range (defined by the 99th percentile reference limit): <= 0.034 ng/mL Note: Cardiac troponin begins to rise 3-4 hours after the onset of ischemia. Repeat in 4-6 hours if the sample was drawn within 3-4 hours of the onset of the symptom and found normal. Diagnosis of myocardial injury is made with acute changes in cTn concentrations with at least one serial sample above the 99th percentile upper reference limit (URL), taken together with the patient's clinical presentation. Biotin has been reported to cause a negative bias, interpret results relative to patient's use of biotin. Lab Interpretation Normal (test code = 38403-5) [facility] [id number] 20:05:00 Test Item Value Reference Range Interpretation Comments NT-proBNP (test code = 76 pg/mL <=125 7238669515) MISAEL (test code = MISAEL) Biotin has been reported to cause a negative bias, interpret results relative to patient's use of biotin. Lab Interpretation (test Normal code = 34857-6) [facility]OLIC [facility] ([id number])2022-09-28 19:54:36 Test Item Value Reference Range Interpretation Comments NA (test code = 138 mmol/L 135-145 2353872754) K (test code = 3.8 mmol/L 3.5-5.0 6745404107) CL (test code = 103 mmol/L 98-108 7328078106) CO2 TOTAL (test code 24 mmol/L 23-31 = 2383254858) AGAP (test code = 11 2-16 2780675886) BUN (test code = 14 mg/dL 7-23 4867659011) GLUCOSE (test code = 98 mg/dL 70-110 1437845021) CREATININE (test code 0.66 mg/dL 0.50-1.04 = 5479617526) TOTAL BILI (test code 0.5 mg/dL 0.1-1.1 = 6097302212) CALCIUM (test code = 9.6 mg/dL 8.6-10.6 4753797742) T PROTEIN (test code 7.4 g/dL 6.3-8.2 = 7980836790) ALBUMIN (test code = 4.5 g/dL 3.5-5.0 4098520261) ALK PHOS (test code = 60 U/L 34-122 6381980136) ALTv (test code = 17 U/L 5-35 1742-6) AST(SGOT) (test code 19 U/L 13-40 = 5047235013) eGFR (test code = 97.7 mL/min/1.73m2 5324673985) MISAEL (test code = MISAEL) Association of Glomerular Filtration Rate (GFR) and Staging of Kidney Disease* + + +- +| GFR (mL/min/1.73 m2) ?| With Kidney Damage ?| ?Without Kidney Damage+ ------+ ----+ ------+| ?>90 ?| ?Stage one ?| ? Normal ?+ -+ + -+| ?60-89 ?| ?Stage two ?| ? Decreased GFR ? + + +- +| ?30-59 ?| ?Stage three ?| ? Stage three ? + + +- +| ?15-29 ?| ?Stage four ? | ? Stage four ?+ -+ + -+| ?<15 (or dialysis) ? ?| ?Stage five ? | ? Stage five ?+ -+ + -+ *Each stage assumes the associated GFR level [...] or urine or abnormalities in imaging tests). [facility] [id number] 19:44:00 Test Item Value Reference Range Interpretation Comments POCT PREG (test code = 1605) Negative On board controls acceptable with Yes C Line (test code = 3574) POCT PREG LOT # (test code = 7980) [id number] POCT PREG TEST DATE (test 01-21-2024 code = 3576) Lab Interpretation (test code = Normal 68400-7) [facility] THRMPLAS [id number] 19:40:13 Test Item Value Reference Range Interpretation Comments APTT Patient (test 30 See_Comment [Automat ed code = 3173-2) message] The system which generated this result transmitted reference range : 23 - 38 Seconds . The reference range was not used to interpr et this result as normal/abnormal . MISAEL (test code = MISAEL) The [facility] [[email or web address]] patient population mean normal value for aPTT is 30 seconds. Lab Interpretation Normal (test code = 18280-5) [facility] / [id number] 19:38:12 Test Item Value Reference Range Interpretation Comments PROTIME PATIENT (test 14.4 See_Comment [Auto mated message] code = 5964-2) The system wh ich generated this result transmitted ref erence range: 12.0 - 1 4.7 Seconds. The re ference range was not u sed to interpret this result as normal/abnor mal. INR (test code = 6301-6) 1.2 Nor mal INR <1.1; Warfarin Therap eutic range 2.0 to 3. 0 or 2.5 to 3.5, dep ending upon the indica tions. Lab Interpretation (test Normal code = 31682-1) [facility] WITH [id number] 19:26:08 Test Item Value Reference Range Interpretation Comments WBC (test code = 6.65 See_Comment [Automated 6763-2) message] The sy stem which generated this result transmitted reference range : 4.30 - 11.10 10*3/?L. The reference range was not used to interpret this result as normal/abnormal . RBC (test code = 4.43 See_Comment [Automated 972-8) message] The sy stem which generated this result transmitted reference range : 3.93 - 5.25 10*6/?L. The reference range was not used to interpret this result as normal/abnormal . HGB (test code = 13.3 g/dL 11.6-15.0 718-7) HCT (test code = 38.6 % 35.7-45.2 4544-3) MCV (test code = 87.1 fL 80.6-95.5 787-2) MCH (test code = 30.0 pg 25.9-32.8 785-6) MCHC (test code = 34.5 g/dL 31.6-35.1 786-4) RDW-SD (test code = 40.5 fL 39.0-49.9 55406-9) RDW-CV (test code = 12.7 % 12.0-15.5 788-0) PLT (test code = 347 See_Comment [Automated 777-3) message] The sy stem which generated this result transmitted reference range : 166 - 358 10*3/ ?L. The reference r brittney was not used to interpret this result as normal/abnormal . MPV (test code = 9.6 fL 9.5-12.9 41850-9) NRBC/100 WBC (test 0.0 See_Comment [Automat ed code = 4144970536) message] The system which generated this result transmitted reference range : 0.0 - 10.0 /100 WBCs. The refer ence range was not u sed to interpret th is result as normal/abnormal . NRBC x10^3 (test code See_Comment [Auto mated = 4434428931) message] The s ystem which generated this result transmitted reference range : 10*3/?L. The reference range was not used to interpret this result as normal/abnormal . GRAN MAT (NEUT) % 74.1 % (test code = 770-8) IMM GRAN % (test code 0.80 % = 0495024384) LYMPH % (test code = 18.8 % 736-9) MONO % (test code = 5.1 % 5905-5) EOS % (test code = 0.6 % 713-8) BASO % (test code = 0.6 % 706-2) GRAN MAT x10^3(ANC) 4.93 10*3/uL 1.88-7.09 (test code = 7125560801) IMM GRAN x10^3 (test 0.05 10*3/uL 0.00-0.06 code = 2124942326) LYMPH x10^3 (test code 1.25 10*3/uL 1.32-3.29 L = 731-0) MONO x10^3 (test code 0.34 10*3/uL 0.33-0.92 = 742-7) EOS x10^3 (test code = 0.04 10*3/uL 0.03-0.39 711-2) BASO x10^3 (test code 0.04 10*3/uL 0.01-0.07 = 704-7) Lab Interpretation Abnormal (test code = 37706-8) [facility]. METABOLIC PANEL ([id number])2022-02-03 14:01:08 Test Item Value Reference Range Interpretation Comments NA (test code = 140 mmol/L 135-145 3755672155) K (test code = 4.0 mmol/L 3.5-5 6921198837) CL (test code = 104 mmol/L 98-108 0420828076) CO2 TOTAL (test code = 22 mmol/L 23-31 L 7442946483) AGAP (test code = 2-16 2624335908) BUN (test code = 17 mg/dL 7-23 5437731916) GLUCOSE (test code = 118 mg/dL 70-110 H 7081002640) CREATININE (test code = 0.58 mg/dL 0.5-1.04 2021259799) TOTAL BILI (test code = 0.3 mg/dL 0.1-1.4 0182815325) CALCIUM (test code = 9.5 mg/dL 8.6-10.6 9773014869) T PROTEIN (test code = 7.2 g/dL 6.3-8.2 8233236052) ALBUMIN (test code = 4.5 g/dL 3.5-5 6678588951) ALK PHOS (test code = 54 U/L 34-122 7383704275) ALTv (test code = 28 U/L 5-35 1742-6) AST(SGOT) (test code = 21 U/L 13-40 8566878911) eGFR (test code = mL/min/1.73m2 0380307185) MISAEL (test code = MISAEL) Association of Glomerular Filtration Rate (GFR) and Staging of Kidney Disease* + --+ --+ ------+| GFR (mL/min/1.73 m2) ?| With Kidney Damage ?| ?Without Kidney Damage+ --------+ --------+ +| ?>90 ?| ?Stage one ?| ? Normal ?+ ---+ ---+ -------+| ?60-89 ?| ?Stage two ?| ? Decreased GFR ? + --+ --+ ------+| ?30-59 ?| ?Stage three ?| ? Stage three ? + --+ --+ ------+| ?15-29 ?| ?Stage four ? | ? Stage four ?+ ---+ ---+ -------+| ?<15 (or dialysis) ? ?| ?Stage five ? | ? Stage five ?+ ---+ ---+ -------+ *Each stage assumes the associated GFR [...] or abnormalities in imaging tests). Lab Interpretation Abnormal (test code = 92654-4) [facility] WITH [id number] 13:50:24 Test Item Value Reference Range Interpretation Comments WBC (test code = See_Comment [Automated 4175-2) message] The sy stem which generated this result transmitted reference range : 4.30 - 11.10 10*3/?L. The reference range was not used to interpret this result as normal/abnormal . RBC (test code = See_Comment [Automated 967-8) message] The sy stem which generated this [...] RDW-SD (test code = 42.5 fL 39-49.9 18663-1) RDW-CV (test code = 13.2 % 12-15.5 788-0) PLT (test code = See_Comment H [Automated 147-3) message] The sy stem which generated this result transmitted reference range : 166 - 358 10*3/ ?L. The reference r brittney was not used to interpret this result as normal/abnormal . MPV (test code = 9.2 fL 9.5-12.9 L 37625-2) NRBC/100 WBC (test See_Comment [Automat ed code = 1923359040) message] The system which generated this result transmitted reference range : 0.0 - 10.0 /100 WBCs. The refer ence range was not u sed to interpret th is result as normal/abnormal . NRBC x10^3 (test code See_Comment [Auto mated = 3178637263) message] The s ystem which generated this result transmitted reference range : 10*3/?L. The reference range was not used to interpret this result as normal/abnormal . GRAN MAT (NEUT) % 77.7 % (test code = 770-8) IMM GRAN % (test code 0.30 % = 3259893236) LYMPH % (test code = 15.5 % 736-9) MONO % (test code = 5.0 % 5905-5) EOS % (test code = 1.1 % 713-8) BASO % (test code = 0.4 % 706-2) GRAN MAT x10^3(ANC) 5.48 10*3/uL 1.88-7.09 (test code = 7530508062) IMM GRAN x10^3 (test 0-0.06 code = 5983267254) LYMPH x10^3 (test code 1.09 10*3/uL 1.32-3.29 L = 731-0) MONO x10^3 (test code 0.35 10*3/uL 0.33-0.92 = 742-7) EOS x10^3 (test code = 0.08 10*3/uL 0.03-0.39 711-2) BASO x10^3 (test code 0.03 10*3/uL 0.01-0.07 = 704-7) Lab Interpretation Abnormal (test code = 48534-0) [facility] Notes Date/Time Note Provider Source 2022-12-01 Formatting of this note might be differe nt from the original. Antonella Choi RN [facility] 14:32:13-00:00 Pt given printed and verbal discharge instructions regarding chest pain, encouraged hydration, Discussed ibuprofen and to take with food to zaida id GI distress. Pt verbalized understanding of instructions, pt awake alert oriented, resp reg unlabored, skin w/d, color appropriate for race, moves all ext well,pt encouraged to follow up with pcp and or specialist Advised to seek medical attention for new/prolon ged/worsening of symptoms, No adverse reaction to meds given in ER noted up on discharge PIV d'cd, dressing to site, catheter in tact. Awake, alert oriented, resp reg unlabored, skin w/d, pt leaving amb with steady gait, in no apparent distress, Electronically signed by Antonella Choi RN a t 12/01/2022 2:32 PM CDT 2022-12-01 Formatting of this note might be differe nt from the original. Cathi Jaeger RN [facility] 11:58:43-00:00 Pt to ER via EMS with c/o chest pain, SOB, headache, N/V, chills, fatigue that started this morning. 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 Pt denies CP on arrival to ED, c/o headache 05/27. 2022-11-18 Formatting of this note might be differe nt from the original. Jennifer Oswald RN [facility] 08:24:28-00:00 Received notification from [employer]: Coverage is provided for type 2 diabetes mellitus. Coverage cannot be authorized at this time. Appeal paperwork not sent as there is not a type 2 diabetes ananya gnosis and the A1C has not shown diabetes while under the provider care. Electronically signed by Jennifer Oswald RN at 0 11/18/2022 8:32 AM CDT 2022-11-17 Formatting of this note might be differe nt from the original. Shanelle Cabrera [employer] [facility] 17:18:57-00:00 OCTAVIA DAWSON Jackson: [id number] - PA - Rx #: [id number] help? Call us at Status Sent to [employer] [facility] 5MG/0.5ML pen-injectors Form [employer] Electronic PA Form (2016 [facility]) Original Claim Info 75 PA initiated via CoverMyMeds. Will need to updat e patient as time permits. Shanelle Lombardo LVN 11/17/2022 5:19 PM 2022-11-17 Formatting of this note might be differe nt from the original. George Miranda RN [facility] 14:54:05-00:00 No answer; left message on [employer] that rx for Monjauro was sent in as requested and reminder to keep appt scheduled for 01/04/2023 @ 9:40am. Advised to call with any questions or send message via [employer]. Electronically signed by George Miranda RN a t 11/17/2022 2:55 PM CDT 2022-11-17 Formatting of this note might be differe nt from the original. Dafne Ortez [facility] 14:03:49-00:00 Images from the original note were not included. Electronically signed by Dafne Ortez at 06/2022 2:04 PM CDT 2022-11-17 Formatting of this note might be differe nt from the original. Tatianna Goodson [facility] 13:09:12-00:00 Patient is calling for statu s of prior authorization. Please call. Electronically signed by Tatianna Goodson at 06/2022 1:12 PM CDT 2022-11-[address] [facility] 14:26:11-00:00 Rx sent, let patient know, and to follow-up as s cheduled. 2022-11-14 Formatting of this note might be differe nt from the original. Dakota Li [facility] 16:25:16-00:00 Pt called and is checking on prior authorization. She is completely out . Pt would like to have the prior auth stating a y ear for refills. Please advise. Electronically signed by Dakota Li at 10/17 4:27 PM CDT 2022-11-13 Formatting of this note might be differe nt from the original. Ekaterina Montano RN [facility] 14:55:24-00:00 [facility] 6 Routed to provider for refil l approval of non-delegated medication. EKATERINA MONTANO RN 11/13/2022 2:55 PM "
[2022-12-02] MEDS ORDERED: ONDANSETRON 4 MG/2 ML VIAL ONE ×2 (11:27→12:40)
[2022-12-02] MEDS ORDERED: NA CHLORIDE 0.9% 1,000 ML ONE (11:27)
--- NOTE | 2022-12-02 11:39 | RAD REPORT ---
EXAM DESCRIPTION: US - Abdomen Exam Limited - 12/02/2022 11:34 am CLINICAL HISTORY: Abd pain;Nausea / vomiting COMPARISON: Abdomen Pelvis W Contrast dated 08/30/2022 FINDINGS: The gallbladder demonstrates no gallstones. No pericholecystic fluid or gallbladder wall t hickening. The common bile duct is normal measuring 5 mm. The liver demonstrates no findings of intrahepatic biliary dilatation. IMPRESSION: Unremarkable examination.
[2022-12-02 11:42] LABS: Hematocrit 36.9 % (36.0-45.0); Lymphocytes % 18.6 % (15.3-44.8); MCV 90.5 fL (80-100); MPV 7.4 fL (7.6-11.3); Platelets 292 thou/uL (152-406); RBC Red Blood Cell Count 4.08 M/uL (3.86-4.86)
[2022-12-02 11:57] LABS: Albumin 3.1 g/dL (3.4-5.0); Bilirubin Total 0.2 mg/dL (0.2-1.0); Protein, Total 6.3 g/dL (6.4-8.2)
--- NOTE | 2022-12-02 12:01 | RAD REPORT ---
EXAM DESCRIPTION: CTAbdomen Pelvis W Contrast - 12/02/2022 11:43 am CLINICAL HISTORY: Abd pain;Nausea / vomiting COMPARISON: Abdomen Pelvis W Contrast dated 08/30/2022; Stone Protocol dated 03/02/2019 TECHNIQUE: CT of the abdomen and pelvis was performed with IV contrast. All CT scans are performed using dose optimization technique as appropriate and may include automated exposure control or mA/KV adjustment according to patient size. FINDINGS: Lower chest: No acute abnormality. Liver: No acute abnormality or suspicious lesions. Biliary: No biliary ductal dilatation. Stomach: No significant focal abnormality. Duodenum: No significant focal abnormality. Pancreas: No significant abnormality. Spleen: No significant abnormality. Adrenal: No suspicious lesions. Kidney/ureter: No hydronephrosis. 3 mm stone in the interpolar aspect of the left kidney. 2 mm stone in lower pole. Retroperitoneum: No retroperitoneal adenopathy. Vascular: No aneurysm. Bowel: No significant focal abnormality. Normal appendix. Peritoneum: No ascites or free air. Bladder: Grossly unremarkable. Reproductive: 5.3 cm left adnexal cystic lesion. IUD. Metallic foreign body at the lower uterine segm ent/cervical region. This may be from a previously placed and fractured IUD. Bones: No acute fracture. Interbody cage at L5-S1. Other: n/a IMPRESSION: No acute intra-abdominal or pelvic finding. 5.3 cm left adnexal cystic lesion which is new and/or enlarged from prior and presumably physiologic. Given the size, recommend pelvic ultrasound in 8-12 weeks.
--- NOTE | 2022-12-02 12:14 | EDPHYS ---
Physician Documentation [facility] Name: Octavia Lo Age: 42 yrs Sex: Female : 1980 Arrival Date: 12/02/2022 Time: 10:59 Bed 7 Private MD: ED Physician Zeyad Rivera HPI: 12/02 11:04 This 42 yrs old Female presents to ER via EMS with complaints of rn nausea/vomiting/diarrhea. 11:04 The patient presents with abdominal pain that is diffuse. Onset: The symptoms/episode rn began/occurred yesterday. The symptoms do not radiate. Associated signs and symptoms: Pertinent positives: nausea and vomiting, constipation, Pertinent negatives: blood in stools, fever, shortness of breath, vomiting blood. The symptoms are described as crampy. Modifying factors: The symptoms are alleviated by nothing, the symptoms are aggravated by nothing. Severity of pain: At its worst the pain was moderate in the emergency department the pain is unchanged. The patient has not experienced similar symptoms in the past. The patient has been recently seen by a physician:. Pt reports abd pain, cramping, with nausea/vomiting/constipation. + chills but no fever. NO trauma. Seen at [place] [facility] yesterday and states neg w/u but that they "focused on my heart and not my stomach". Reports COVID test yesterday negative. . Historical: - Allergies: 11:03 Codeine; hb 11:03 Percocet; hb 11:03 Phenergan; hb 11:03 Reglan; hb - PMHx: 11:03 "I had a blood clot to right side of head"; Anxiety; Hypertension; Kidney stones; hb Pancreatitis; - PSHx: 11:03 spinal sx 07/30/22; hb - Immunization history:: Adult Immunizations up to date. - Social history:: Smoking status: . - Family history:: not pertinent. - Hospitalizations: : No recent hospitalization is reported. ROS: 11:04 Constitutional: Negative for fever, chills, and weight loss, Cardiovascular: Negative rn for chest pain, palpitations, and edema, Respiratory: Negative for shortness of breath, cough, wheezing, and pleuritic chest pain, Abdomen/GI: Negative for diarrhea MS/Extremity: Negative for injury and deformity, Skin: Negative for injury, rash, and discoloration, Neuro: Negative for headache, numbness, tingling, and seizure. Exam: 11:04 Constitutional: This is a well developed, well nourished patient who is awake, alert, rn and in no acute distress. Head/Face: Normocephalic, atraumatic. ENT: dry MM Cardiovascular: Regular rate and rhythm. No pulse deficits. Respiratory: No increased work of breathing, no retractions or nasal flaring. Abdomen/GI: soft, no focal tenderness, mild mid abd tenderness Skin: Warm, dry MS/ Extremity: Pulses equal, no cyanosis. Neuro: Awake and alert, GCS 15 Vital Signs: 11:02 BP 167 / 107; Pulse 65; Resp 16; Temp 98.4; Pulse Ox 100% ; Weight 74.84 kg; Height 5 hb ft. 5 in. ; Pain 5/10; 12:12 BP 148 / 89; Pulse 67; Resp 15; Pulse Ox 99% ; hb 11:02 Body Mass Index 27.46 (74.84 kg, 165.1 cm) hb 11:02 Pain Scale: Adult hb MDM: 11:02 Patient medically screened. rn 12:12 ED course: Results handed to patient and went over them together, will f/u with [employer] for rn left adnexal lesion, has known kidney stones, and u/s gallbladder without acute findings. Normal WBC. Will dc home as possible early pancreatitis, has had before, and given strict return precautions. . 12/02 11:02 Order name: CBC with Diff; Complete Time: 11:54 rn 12/02 11:02 Order name: CMP; Complete Time: 12:02 rn 12/02 11:02 Order name: Lipase; Complete Time: 12:02 rn 12/02 11:02 Order name: Flu; Complete Time: 12:03 rn 12/02 11:02 Order name: CT Abd/Pelvis - IV Contrast Only; Complete Time: 12:02 rn 12/02 11:02 Order name: US Abdomen Limited; Complete Time: 11:54 rn 12/02 11:02 Order name: IV Saline Lock; Complete Time: 11:47 rn 12/02 11:02 Order name: Labs collected and sent; Complete Time: 11:25 rn Administered Medications: 11:25 Drug: NS 0.9% IV 1000 ml Route: IV; Rate: 1 bolus; Site: left antecubital; hb 12:40 Follow up: Response: No adverse reaction; IV Status: Completed infusion; IV Intake: hb 1000ml 11:25 Drug: Ondansetron IVP 4 mg Route: IVP; Site: left antecubital; hb 12:02 Follow up: Response: No adverse reaction hb 12:32 Drug: [place] PO 10 mg-325 mg 1 tabs Route: PO; hb 12:40 Follow up: Response: Medication administered at discharge. hb 12:33 Drug: Ondansetron IVP 4 mg Route: IVP; Site: right antecubital; hb 12:39 Follow up: Response: Medication administered at discharge. hb Disposition Summary: 12/02/22 12:14 Discharge Ordered Location: Home rn Problem: new rn Symptoms: have improved rn Condition: Stable rn Diagnosis - Abdominal pain, unspecified rn - Vomiting, unspecified rn Followup: rn - With: Private Physician - When: As needed - Reason: Recheck today's complaints, Re-evaluation by your physician Discharge Instructions: - Discharge Summary Sheet rn - Abdominal Pain, Adult rn - Acute Pancreatitis rn Forms: - Medication Reconciliation Form rn - Thank You Letter rn - Antibiotic pillowcase turner - Prescription Opioid Use rn - Patient Portal Instructions rn - Leadership Thank You Letter rn Prescriptions: - ondansetron 4 mg Oral Tablet,disintegrating - take 1 tablet by ORAL route every 8 hours As needed; 15 tablet; Refills: 0, rn Product Selection Permitted - Tramadol 50 mg Oral Tablet - take 1 tablet by ORAL route every 8 hours As needed as needed; 12 tablet; rn Refills: 0, Product Selection Permitted Signatures: Dispatcher [employer] EDZeyad Rodriguez MD MD rn Baxter, Heather, RN RN Corrections: (The following items were deleted from the chart) 11:07 11:04 Pt reports abd pain, cramping, with nausea/vomiting/constipation. + chills but no rn fever. NO trauma. Seen at [facility] yesterday and states neg w/u but that they "focused on my heart and not my stomach". . rn
--- NOTE | 2022-12-02 12:14 | ER ---
Nurse's Notes [facility] Name: Octavia Lo Age: 42 yrs Sex: Female : 1980 Arrival Date: 12/02/2022 Time: 10:59 Bed 7 Private MD: Diagnosis: Abdominal pain, unspecified;Vomiting, unspecified Presentation: 12/02 11:02 Chief complaint: EMS states: Abdominal pain and constipation x 1 week. Coronavirus hb screen: At this time, the client does not indicate any symptoms associated with coronavirus-19. Ebola Screen: No symptoms or risks identified at this time. Initial Sepsis Screen: Does the patient meet any 2 criteria? No. Patient's initial sepsis screen is negative. Does the patient have a suspected source of infection? No. Patient's initial sepsis screen is negative. Risk Assessment: Do you want to hurt yourself or someone else? Patient reports no desire to harm self or others. Onset of symptoms was December 02, 2022. 11:02 Method Of Arrival: EMS: [facility] hb 11:02 Acuity: ONUR 3 hb Historical: - Allergies: 11:03 Codeine; hb 11:03 Percocet; hb 11:03 Phenergan; hb 11:03 Reglan; hb - PMHx: 11:03 "I had a blood clot to right side of head"; Anxiety; Hypertension; Kidney stones; hb Pancreatitis; - PSHx: 11:03 spinal sx 07/30/22; hb - Immunization history:: Adult Immunizations up to date. - Social history:: Smoking status: . - Family history:: not pertinent. - Hospitalizations: : No recent hospitalization is reported. Screenin:06 [facility] ED Fall Risk Assessment (Adult) Score/Fall Risk Level 0 - 2 = Low Risk hb Oriented to surroundings, Maintained a safe environment. Abuse screen: Denies threats or abuse. Denies injuries from another. Nutritional screening: No deficits noted. Tuberculosis screening: No symptoms or risk factors identified. Assessment: 11:05 General: Appears in no apparent distress. Behavior is calm, cooperative. Pain: Pain hb currently is 5 out of 10 on a pain scale. at worst was 8 out of 10 on a pain scale. Neuro: Level of Consciousness is awake, alert, obeys commands, Oriented to person, place, time, situation. Cardiovascular: Patient's skin is warm and dry. Respiratory: Respiratory effort is even, unlabored, Respiratory pattern is regular, symmetrical. GI: Reports lower abdominal pain, upper abdominal pain, constipation, nausea. : No signs and/or symptoms were reported regarding the genitourinary system. EENT: No signs and/or symptoms were reported regarding the EENT system. Derm: Skin is pink, warm \\T\\ dry. Musculoskeletal: No signs and/or symptoms reported regarding the musculoskeletal system. 12:12 Reassessment: Patient appears in no apparent distress at this time. Patient and/or hb family updated on plan of care and expected duration. Pain level reassessed. Patient is alert, oriented x 3, equal unlabored respirations, skin warm/dry/pink. Vital Signs: 11:02 BP 167 / 107; Pulse 65; Resp 16; Temp 98.4; Pulse Ox 100% ; Weight 74.84 kg; Height 5 hb ft. 5 in. ; Pain 5/10; 12:12 BP 148 / 89; Pulse 67; Resp 15; Pulse Ox 99% ; hb 11:02 Body Mass Index 27.46 (74.84 kg, 165.1 cm) hb 11:02 Pain Scale: Adult hb ED Course: 11:01 Patient arrived in ED. rn 11:02 Zeyad Rivera MD is Attending Physician. rn 11:02 Abiola Zaragoza, DAVI is Primary Nurse. hb 11:03 Triage completed. hb 11:05 Arm band placed on. hb 11:06 Patient has correct armband on for positive identification. Provided Education on: . hb 11:24 Maintain EMS IV. Dressing intact. Good blood return noted. Site clean \\T\\ dry. Gauge \\T\\ hb site: 20g LAC. 11:25 CBC with Diff Sent. hb 11:25 CMP Sent. hb 11:25 Lipase Sent. hb 11:36 US Abdomen Limited In Process Unspecified. EDMS 11:45 CT Abd/Pelvis - IV Contrast Only In Process Unspecified. EDMS 12:40 No provider procedures requiring assistance completed. IV discontinued, intact, hb bleeding controlled, No redness/swelling at site. Administered Medications: 11:25 Drug: NS 0.9% IV 1000 ml Route: IV; Rate: 1 bolus; Site: left antecubital; hb 12:40 Follow up: Response: No adverse reaction; IV Status: Completed infusion; IV Intake: hb 1000ml 11:25 Drug: Ondansetron IVP 4 mg Route: IVP; Site: left antecubital; hb 12:02 Follow up: Response: No adverse reaction hb 12:32 Drug: [place] PO 10 mg-325 mg 1 tabs Route: PO; hb 12:40 Follow up: Response: Medication administered at discharge. hb 12:33 Drug: Ondansetron IVP 4 mg Route: IVP; Site: right antecubital; hb 12:39 Follow up: Response: Medication administered at discharge. hb Medication: 11:06 VIS not applicable for this client. hb Intake: 12:40 IV: 1000ml; Total: 1000ml. hb Outcome: 12:14 Discharge ordered by . rn 12:41 Discharged to home via wheelchair, with significant other. hb 12:41 Condition: stable 12:41 Discharge instructions given to patient, significant other, Instructed on discharge instructions, follow up and referral plans. medication usage, Demonstrated understanding of instructions, follow-up care, medications, Prescriptions given X 2. 12:41 Patient left the ED. hb Signatures: Dispatcher [employer] EDZeyad Rodriguez MD MD rn Baxter, Heather, RN RN hb
[2022-12-02] MEDS ORDERED: HYDROCODONE/APAP 10/325 TAB ONE (12:40)
[2022-12-02 12:46] VITALS: TEMP 98.4
[2022-12-02 12:47] VITALS: BP 148/89; O2SAT 99
== END 2022-12-02 12:41 | disposition home or self-care (01) ==
LOC: ER 10:59
DX: R10.9 Unspecified abdominal pain (principal); R11.10 Vomiting, unspecified; I10 Essential (primary) hypertension; Z87.442 Personal history of urinary calculi; Z88.5 Allergy status to narcotic agent; Z88.8 Allergy status to other drugs, medicaments and biological substances
CPT/HCPCS: 85025; 36415; 83690; 80053; 87804 ×2; 74177; 76705; 99284; Q9967; J2405 ×2; J7030

== ENCOUNTER 2023-01-06 09:59 | Emergency (ER) | payer BC ==
--- OUTSIDE RECORDS SUMMARY | 2023-01-06 10:14 | XMS REPORT | Continuity of Care Document ---
:1980 Author Organization [facility] t Address [address] [place] [address] Care Team Providers Name Role Phone MIYA OLSEN Primary Care Physician Unavailable ABBEY ROTHMAN Attending Clinician Unavailable MIYA OLSEN Attending Clinician Unavailable Doctor Unassigned, [place] Attending Clinician Unavailable 2, [facility] Attending Clinician Unavailable Miya Olsen MD Attending Clinician EVA MICHAEL Attending Clinician Unavailable SHEREE BLOOD Attending Clinician Unavailable JEY SHARMA Attending Clinician Unavailable Jey Machado Attending Clinician SARMAD LOPES Attending Clinician Unavailable SARMAD LOPES Attending Clinician Unavailable Sarmad Lopes MD Attending Clinician Eva Michael MD Attending Clinician Neurology Attending Clinician Unavailable JULIANE CLAY Attending Clinician Unavailable Juliane Clay MD Attending Clinician RADIOLOGY Attending Clinician Unavailable Radiology Attending Clinician Unavailable Octavia Moy Attending Clinician CAROLINA MAURICE Attending Clinician Unavailable Josafat DOCarolina Attending Clinician Pob, [facility] Main Attending Clinician Unavailable Neelam MANRIQUE, Nathaly Attending Clinician Only, Ang Db Test Attending Clinician Unavailable Eballison ASSEMBLY INSPECTOR HELPERChary Attending Clinician EBCHARY SNOW Attending Clinician Unavailable NATHALY TOMAS Attending Clinician Unavailable NIKA BERRY Attending Clinician Unavailable Nika Berry MD Attending Clinician Mono Perea MD Attending Clinician Only, Adc Test Attending Clinician Unavailable Abbey Rothman MD Attending Clinician 1, [facility] Attending Clinician Unavailable Diann Garcia Attending Clinician Bev Ghosh MD Attending Clinician RUSSELL OLVERA Attending Clinician Unavailable Nurse, Adc Pob Immunization Attending Clinician Unavailable Russell Olvera DO Attending Clinician Vaccine, Ad[facility] Family Attending Clinician Unavailable Zac ASSEMBLY INSPECTOR HELPERFern Wells Attending Clinician FERN EVANGELISTA Attending Clinician Unavailable Provider, [facility] Attending Clinician Unavailable Mary Rodrigues Attending Clinician MARY LINDO Attending Clinician Unavailable FESTUS MANUEL Attending Clinician Unavailable Karen Copeland Attending Clinician Ramirez Fink MD Attending Clinician GEORGE GIL Attending Clinician Unavailable Lab, Adc Fam Pob I Attending Clinician Unavailable George Barnes Attending Clinician Sherley Lofton PTA Attending Clinician Unavailable Rgioberto Diez MD Attending Clinician Kevin Valadez MD Attending Clinician Betito Weinberg Attending Clinician Freddy HOPPER, Cristi Attending Clinician Eren Espinoza PT, Carmen Attending Clinician Unavailable ABBEY ROTHMAN Admitting Clinician Unavailable JEY SHARMA Admitting Clinician Unavailable MIYA OLSEN Admitting Clinician Unavailable JULIANE CLAY Admitting Clinician Unavailable NIKA BERRY Admitting Clinician Unavailable Nika Berry MD Admitting Clinician Abbey Rothman MD Admitting Clinician MARY LINDO Admitting Clinician Unavailable Payers Payer Name Policy Type Policy Number Effective Date Expiration Date [place] [employer] [place] [id number] 2017 EMPLOYEE PLAN 00:00:00 Problems Condition Condition Condition Status Onset Resolution Last Treating Co mments Source Name Details Category Date Date Treatment Clinician Date Stress Stress Disease Active Univers incontinen incontinen 9-20 it y of ce of ce of 00:00: [place] urine urine 00 Medical Branch Bulging Bulging Disease Active Univers lumbar lumbar 9-20 ity of disc disc 00:00: [place] 00 Medical Branch Foraminal Foraminal Disease Active Uni vers stenosis stenosis 9-20 ity of of lumbar of lumbar 00:[place] Anterolist Anterolist Disease Active U benigno hesis of hesis of 9-20 ity of lumbar lumbar 00:00: [place] spine spine 00 Medical Branch Postural Postural Disease Active Unive rs orthostati orthostati 9-20 it y of c c 00:00: [place] tachycardi tachycardi 00 Me dical a syndrome a syndrome Br anch (POTS) (POTS) Subclinica Subclinica Disease Active U nivers l l 9-20 ity of hypothyroi hypothyroi 00:00[place] dism dism 00 Medical Branch Loss of Loss of Disease Active Univers hair hair 9-20 ity of 00:00: [place] 00 Medical Branch Primary Primary Disease Active Univers insomnia insomnia 9-20 ity of 00:00: [place] 00 Medical Branch Syncope Syncope Disease Active Univers and and 6-20 ity of collapse collapse 00:00: [place] [facility] Knee Knee Disease Active Univers buckling, buckling, 6-20 ity of left left 00:00: [place] 00 Medical Branch Moderate Moderate Disease Active Unive rs major major 6-20 ity of depression depression 00:00[place] 00 [place] Lumbar Lumbar Disease Active Univers radiculopa radiculopa 2-17 it y of thy, thy, 00:00: [place] chronic chronic 00 Medical Branch Primary Primary Disease Active Univers osteoarthr osteoarthr 2-17 it y of itis of itis of 00:00: [place] right knee right knee 00 Or dical Branch Bakers Bakers Disease Active 2021-04 Univers cyst, cyst, 0-13 ity of right right 00:00: [place] 00 Medical Branch Chronic Chronic Disease Active Univers neck pain neck pain 9-08 ity of 00:00: [place] 00 Medical Branch Prediabete Prediabete Disease Active U nivers s s 9-08 ity of 00:00: [place] 00 Medical Branch Hidradenit Hidradenit Disease Active [...] sided 8-24 ity of sciatica sciatica 00:00: [place] 00 Medical Branch Chronic Chronic Disease Active Univers pain of pain of 8-24 ity of both both 00:00: [place] shoulders shoulders 00 Medi lonny Branch Degenerati Degenerati Disease Active U nivers ve disc ve disc 8-24 ity of disease at disease at 00:00: [place] L5-S1 L5-S1 00 Medical level level Branch Arthritis, Arthritis, Disease Active U nivers multiple multiple 8-24 ity of joint joint 00:00: [place] involvemen involvemen 00 Me dical t t Branch Chronic Chronic Disease Active Univers pain of pain of 8-24 ity of both both 00:00: [place] shoulders shoulders 00 Medi lonny Branch Status Status Disease Active Univers post post 1-20 ity of hysterosco hysterosco 00:00: [place] py py 00 Medical Branch S/P lumbar S/P lumbar Disease Active U nivchema discectomy discectomy -20 it y of 00:00: [place] Medical Branch Elevated Elevated Disease Active Unive rs TSH TSH -19 ity of 00:00: [place] Medical Branch Encounter Encounter Disease Active Uni vers for weight for weight 19 it y of management management 00:00: [place] 00 [place] Chronic Chronic Disease Active Univers bilateral bilateral 19 ity of low back low back 00:00: [place] pain with pain with 00 Medi lonny right-side right-side Br anch d sciatica d sciatica Spondylosi Spondylosi Disease Active U benigno s of s of 05-05 ity of lumbar lumbar 00:00: [place] region region 00 Medical without without Branch myelopathy myelopathy or or radiculopa radiculopa thy thy Rectal Rectal Disease Active 2020-04 Overview: Univer s bleeding bleeding -11 Formattin ity of 00:00: g of this [place] 00 note Medical might be Branch different from the original. Added automatic ally from request for surgery [id number] Blood Blood Disease Active 2020-04 Univers clots in clots in 0-06 ity of stool stool 00:00: [place] Medical [facility] Lower Lower Disease Active 2020-04 Univers abdominal abdominal 0-06 ity of pain pain 00:00: [place] Medical Branch BMI BMI Disease Active 2020-04 Univers 39.0-39.9, 39.0-39.9, 0-06 it y of adult adult 00:00: [place] Medical Branch Gastroesop Gastroesop Disease Active 2019-04 U benigno hageal hageal 0-06 ity of reflux reflux 00:00: [place] disease disease 00 Medical without without Branch esophagiti esophagiti s s Anxiety Anxiety Disease Active 2019-04 Univers 0-06 ity of 00:00: [place] Medical Branch Non-season Non-season Disease Active 2019- U benigno lópez 9-16 ity of allergic allergic 00:00: [place] [...] Asymptomat Disease Active U nivers ic ic 916 ity of hypertensi hypertensi 00:00: [place] ve urgency ve urgency 00 Me dical Branch Non Non Disease Active Univers compliance compliance 916 it y of w w 00:00: [place] medication medication 00 Me dical regimen regimen Branch Essential Essential Disease Active Uni vers hypertensi hypertensi 930 it y of on on 00:00: Medical Branch Renal Renal Disease Active Univers stones stones 930 ity of 00:00: Medical Branch Hepatomega Hepatomega Disease Active U nivers ly ly 930 ity of 00:00: Medical Branch Allergies, Adverse Reactions, Alerts Allergy Allergy Status Severity Reaction(s) Onset Inactive Treating Comm ents Source Name Type Date Date Clinician OXYCODON DRUG Active ITCHING Univers E INGREDI 817 ity of 00:00: Medical Branch Oxycodon Propensi Active Itching Unive rs e ty to 8-17 ity of adverse 00:00: [place] reaction 00 Medical s Branch Codeine Propensi Active Shortness of 2016-04 U nivers ty to Breath 2-01 ity of adverse 00:00: [place] reaction 00 Medical s Branch Oxycodon Propensi Active Itching 2016-04 Unive rs e-Acetam ty to 2-01 ity of inophen adverse 00:00: [place] reaction 00 Medical s Branch Prometha Propensi Active Other - See 2016-04 convulsi o Univers zine Hcl ty to comments 2- ns ity of adverse 00:00: [place] reaction 00 Medical s Branch Metoclop Propensi Active Unknown - 2016-04 Convulsio Univers ramide ty to See comments 2-01 n ity of Hcl adverse 00:00: [place] reaction 00 Medical s Branch PROMETHA DRUG Active High Other-Cmnt 2016-04 Univ ers ZINE HCL INGREDI 05-18 ity of 00:00: [place] 00 [facility] Branch METOCLOP DRUG Active High Unknown-Cmnt 2016-04 Un [place] RAMIDE INGREDI 05-18 ity of HCL 00:00: [address] Branch CODEINE DRUG Active SOB 2016-04 Univers INGREDI 05-18 ity of 00:00: [address] OXYCODON DRUG Active ITCHING 2016-04 Univers E-ACETAM 05-18 ity of INOPHEN 00:00: [address] Social History Social Habit Start Date Stop Date Quantity Comments Source Gender identity [facility]it y of [facility] Sexual orientation Univer sity of [facility] Alcohol intake 2022-12-01 2022-12-01 Current University of 00:00:00 00:00:00 non-drinker of [facility] alcohol [place] (finding) Exposure to 2022-08-02 2022-08-12 Not sure [facility] SARS-CoV-2 (event) 00:00:00 11:17:00 [facility] History of Social 2022-06-03 2022-06-03 Univers ity of function 00:00:00 00:00:00 [facility] Tobacco use and 2021-12-23 2021-12-23 Smokeless Universit y of exposure 00:00:00 00:00:00 tobacco non-user [facility] Sex Ass[birth year] At [birth year] Universit y of 00:00:00 00:00:00 [facility] Smoking Status Start Date Stop Date Source Never smoked tobacco [facility] Medications Ordered Filled Start Stop Current Ordering Indication Dosage Frequency Signature Comments Components Source Medication Medication Date Date Medication? Clinician (SIG) Name Name amitriptyli Yes [id number] 10mg Take 1 Univers ne 10 mg 9-20 tablet by ity of tablet 00:00: mouth at [place] 00 bedtime. Medical Branch levothyroxi Yes [id number] TAKE ONE Univers ne 25 mcg 9-20 (1) TABLET ity of tablet 00:00: BY MOUTH [place] [address] EVERY Medical MORNING. Branch losartan 50 Yes [id number] 50mg Take 1 Univers mg tablet 9-20 tablet by ity o f 00:00: mouth in [place] [address] the Medical morning. Branch metoprolol 2023-0 Yes [id number] 25mg Take 1 Univers succinate 9-20 tablet by ity o f XL 25 mg 24 00:00: [place] hr tablet 00 the Medical morning. Branch Melatonin 5 2022-0 Yes [id number] 1{capsu Take 1 Univers mg Cap 9-20 le} capsule by ity of 00:00: mouth at [place] [address] bedtime as Medical needed for Branch Insomnia. amitriptyli 2022-0 Yes [id number] 10mg Take 1 Univers ne 10 mg 9-20 tablet by ity of tablet 00:00: mouth at [place] [address] bedtime. Medical Branch levothyroxi 2022-0 Yes [id number] TAKE ONE Univers ne 25 mcg 9-20 (1) TABLET ity of tablet 00:00: BY MOUTH [place] 00 EVERY Medical MORNING. Branch losartan 50 2022-0 Yes [id number] 50mg Take 1 Univers mg tablet 9-20 tablet by ity o f 00:00: mouth in [place] 00 the Medical morning. Branch metoprolol 2022-0 Yes [id number] 25mg Take 1 Univers succinate 9-20 tablet by ity o f XL 25 mg 24 00:00: [place] in [place] hr tablet 00 the Medical morning. Branch Melatonin 5 2022-0 Yes [id number] 1{capsu Take 1 Univers mg Cap 9-20 le} capsule by ity of 00:00: mouth at [place] 00 bedtime as Medical needed for Branch Insomnia. MELOXICAM 2022-0 Yes [id number] TAKE ONE Univers 7.5 mg 9-14 103 (1) TABLET ity of tablet 00:00: BY MOUTH [place] 00 IN THE Medical MORNING. Branch MELOXICAM 2022-0 Yes [id number] TAKE ONE Univers 7.5 mg 9-14 103 (1) TABLET ity of tablet 00:00: BY MOUTH [place] 00 IN THE Medical MORNING. Branch MELOXICAM 2022-0 Yes [id number] TAKE ONE Univers 7.5 mg 9-14 103 (1) TABLET ity of tablet 00:00: BY MOUTH [place] 00 IN THE Medical MORNING. Branch MELOXICAM 2022-0 Yes [id number] TAKE ONE Univers 7.5 mg 9-14 103 (1) TABLET ity of tablet 00:00: BY MOUTH [place] 00 IN THE Medical MORNING. Branch PANTOPRAZOL 2022-0 Yes [id number] TAKE ONE Univers E 20 mg EC 9-05 (1) ity of tablet 00:00: TABLET(S) [place] 00 BY MOUTH Medical ONCE A Branch DAY. LEVOTHYROXI 2023-0 Yes [id number] TAKE ONE Univers NE 25 mcg 9-05 (1) TABLET ity of tablet 00:00: BY MOUTH [place] 00 EVERY Medical MORNING. Branch PANTOPRAZOL 2023-0 Yes [id number] TAKE ONE Univers E 20 mg EC 9-05 (1) ity of tablet 00:00: TABLET(S) [place] 00 BY MOUTH Medical ONCE A Branch DAY. LEVOTHYROXI 2023-0 Yes [id number] TAKE ONE Univers NE 25 mcg 9-05 (1) TABLET ity of tablet 00:00: BY MOUTH [place] 00 EVERY Medical MORNING. Branch PANTOPRAZOL 3-0 Yes [id number] TAKE ONE Univers E 20 mg EC 9-05 (1) ity of tablet 00:00: TABLET(S) [place] 00 BY MOUTH Medical ONCE A Branch DAY. LEVOTHYROXI 2023-0 Yes [id number] TAKE ONE Univers NE 25 mcg 9-05 (1) TABLET ity of tablet 00:00: BY MOUTH [place] 00 EVERY Medical MORNING. Branch PANTOPRAZOL 2023-0 Yes [id number] TAKE ONE Univers E 20 mg EC 9-05 (1) ity of tablet 00:00: TABLET(S) [place] 00 BY MOUTH Medical ONCE A Branch DAY. PANTOPRAZOL 2023-0 Yes [id number] TAKE ONE Univers E 20 mg EC 9-05 (1) ity of tablet 00:00: TABLET(S) [place] 00 BY MOUTH Medical ONCE A Branch DAY. PANTOPRAZOL 2023-0 Yes [id number] TAKE ONE Univers E 20 mg EC 9-05 (1) ity of tablet 00:00: TABLET(S) [place] 00 BY MOUTH Medical ONCE A Branch DAY. acetaminoph 2023-0 2023- No 1000mg 1,000 mg, Univers en 12-01 Oral, ity of (TYLENOL) 18:45: 18:30 ONCE, 1 [place] tablet 00 :00 dose, On Medical 1,000 mg Judi Branch 12/01/22 at 1345, Routine LEVOTHYROXI 2023-0 Yes [id number] TAKE ONE Univers NE 25 mcg 8-07 (1) TABLET ity of tablet 00:00: BY MOUTH [place] 00 EVERY Medical MORNING. Branch LEVOTHYROXI 2022-0 Yes [id number] TAKE ONE Univers NE 25 mcg 8-07 (1) TABLET ity of tablet 00:00: BY MOUTH [place] 00 EVERY Medical MORNING. Branch LEVOTHYROXI 2022-0 Yes [id number] TAKE ONE Univers NE 25 mcg 8-07 (1) TABLET ity of tablet 00:00: BY MOUTH [place] 00 EVERY Medical MORNING. Branch LEVOTHYROXI 2022-0 Yes [id number] TAKE ONE Univers NE 25 mcg 8-07 (1) TABLET ity of tablet 00:00: BY MOUTH [place] 00 EVERY Medical MORNING. Branch LEVOTHYROXI 2022- No [id number] TAKE ONE Univers NE 25 mcg 8- 09-05 (1) TABLET ity of tablet 00:00: 00:00 BY MOUTH [place] 00 :00 EVERY Medical MORNING. [place] tirzepatide Yes [id number] 5mg inject 5 Univers (MOUNJARO) 8-02 mg under ity o f 5 mg/0.5 mL 00:00: [place] PnIj 00 weekly. Medical Branch tirzepatide Yes [id number] 5mg inject 5 Univers (MOUNJARO) 8-02 mg under ity o f 5 mg/0.5 mL 00:00: [place] PnI[place] 00 weekly. [facility] Branch tirzepatide Yes [id number] 5mg inject 5 Univers (MOUNJARO) 8-02 mg under ity o f 5 mg/0.5 mL 00:00: the [place] PnI[place] 00 weekly. Medical Branch tirzepatide Yes [id number] 5mg inject 5 Univers (MOUNJARO) 8-02 mg under ity o f 5 mg/0.5 mL 00:00: [place] PnI[place] 00 weekly. Medical Branch tirzepatide Yes [id number] 5mg inject 5 Univers (MOUNJARO) 8-02 mg under ity o f 5 mg/0.5 mL 00:00: [place] Pn[place] 00 weekly. [facility] Branch tirzepatide Yes [id number] 5mg inject 5 Univers (MOUNJARO) 8-02 mg under ity o f 5 mg/0.5 mL 00:00: the [place] PnI[place] 00 weekly. Medical Branch tirzepatide Yes [id number] 5mg inject 5 Univers (MOUNJARO) 8-02 mg under ity o f 5 mg/0.5 mL 00:00: the [place] PnI[place] 00 weekly. Medical Branch tirzepatide Yes [id number] 5mg inject 5 Univers (MOUNJARO) 8-02 mg under ity o f 5 mg/0.5 mL 00:00: the [place] PnI[place] 00 weekly. [facility] Branch tirzepatide Yes [id number] 5mg inject 5 Univers (MOUNJARO) 8-02 mg under ity o f 5 mg/0.5 mL 00:00: the [place] PnI[place] 00 weekly. [facility] Branch tirzepatide Yes [id number] 5mg inject 5 Univers (MOUNJARO) 8-02 mg under ity o f 5 mg/0.5 mL 00:00: the [place] PnI[place] 00 weekly. Medical Branch tirzepatide Yes [id number] 5mg inject 5 Univers (MOUNJARO) 8-02 mg under ity o f 5 mg/0.5 mL 00:00: the [place] PnI[place] 00 weekly. Medical Branch tirzepatide Yes [id number] 5mg inject 5 Univers (MOUNJARO) 8-02 mg under ity o f 5 mg/0.5 mL 00:00: the [place] PnI[place] 00 weekly. Medical Branch tirzepatide Yes [id number] 5mg inject 5 Univers (MOUNJARO) 8-02 mg under ity o f 5 mg/0.5 mL 00:00: the skin [place] PnI[place] 00 weekly. [facility] Branch tirzepatide Yes [id number] 5mg inject 5 Univers (MOUNJARO) 8-02 mg under ity o f 5 mg/0.5 mL 00:00: the [place] PnI[place] 00 weekly. Medical Branch LEVOTHYROXI Yes [id number] TAKE ONE Univers NE 25 mcg 7-07 (1) TABLET ity of tablet 00:00: BY MOUTH [place] 00 EVERY Medical MORNING. Branch PANTOPRAZOL 2023-0 Yes [id number] TAKE ONE Univers E 20 mg EC 7-07 (1) ity of tablet 00:00: TABLET(S) [place] 00 BY MOUTH Medical ONCE A Branch DAY. LEVOTHYROXI 2023-0 Yes [id number] TAKE ONE Univers NE 25 mcg 7-07 (1) TABLET ity of tablet 00:00: BY MOUTH [place] 00 EVERY Medical MORNING. Branch PANTOPRAZOL 2023-0 Yes [id number] TAKE ONE Univers E 20 mg EC 7-07 (1) ity of tablet 00:00: TABLET(S) [place] 00 BY MOUTH Medical ONCE A Branch DAY. LEVOTHYROXI 2023-0 Yes [id number] TAKE ONE Univers NE 25 mcg 7-07 (1) TABLET ity of tablet 00:00: BY MOUTH [place] 00 EVERY Medical MORNING. Branch PANTOPRAZOL 2023-0 Yes [id number] TAKE ONE Univers E 20 mg EC 7-07 (1) ity of tablet 00:00: TABLET(S) [place] 00 BY MOUTH Medical ONCE A Branch DAY. LEVOTHYROXI 2023-0 Yes [id number] TAKE ONE Univers NE 25 mcg 7-07 (1) TABLET ity of tablet 00:00: BY MOUTH [place] 00 EVERY Medical MORNING. Branch PANTOPRAZOL 2023-0 Yes [id number] TAKE ONE Univers E 20 mg EC 7-07 (1) ity of tablet 00:00: TABLET(S) [place] 00 BY MOUTH Medical ONCE A Branch DAY. LEVOTHYROXI 2023-0 Yes [id number] TAKE ONE Univers NE 25 mcg 7-07 (1) TABLET ity of tablet 00:00: BY MOUTH [place] 00 EVERY Medical MORNING. Branch PANTOPRAZOL 2023-0 Yes [id number] TAKE ONE Univers E 20 mg EC 7-07 (1) ity of tablet 00:00: TABLET(S) [place] 00 BY MOUTH Medical ONCE A Branch DAY. LEVOTHYROXI 2023-0 Yes [id number] TAKE ONE Univers NE 25 mcg 7-07 (1) TABLET ity of tablet 00:00: BY MOUTH [place] 00 EVERY Medical MORNING. Branch PANTOPRAZOL 2023-0 Yes [id number] TAKE ONE Univers E 20 mg EC 7-07 (1) ity of tablet 00:00: TABLET(S) [place] 00 BY MOUTH Medical ONCE A Branch DAY. LEVOTHYROXI 2023-0 Yes [id number] TAKE ONE Univers NE 25 mcg 7-07 (1) TABLET ity of tablet 00:00: BY MOUTH [place] 00 EVERY Medical MORNING. Branch PANTOPRAZOL 2023-0 Yes [id number] TAKE ONE Univers E 20 mg EC 7-07 (1) ity of tablet 00:00: TABLET(S) [place] 00 BY MOUTH Medical ONCE A Branch DAY. LEVOTHYROXI 2023-0 Yes [id number] TAKE ONE Univers NE 25 mcg - (1) TABLET ity of tablet 00:00: BY MOUTH [place] 00 EVERY Medical MORNING. Branch PANTOPRAZOL 2023-0 Yes [id number] TAKE ONE Univers E 20 mg EC 7- (1) ity of tablet 00:00: TABLET(S) [place] 00 BY MOUTH Medical ONCE A Branch DAY. PANTOPRAZOL 2023-0 Yes [id number] TAKE ONE Univers E 20 mg EC 7-07 (1) ity of tablet 00:00: TABLET(S) [place] 00 BY MOUTH Medical ONCE A Branch DAY. PANTOPRAZOL 2023-0 Yes [id number] TAKE ONE Univers E 20 mg EC 7-07 (1) ity of tablet 00:00: TABLET(S) [place] 00 BY MOUTH Medical ONCE A Branch DAY. PANTOPRAZOL 2023-0 Yes [id number] TAKE ONE Univers E 20 mg EC 7-07 (1) ity of tablet 00:00: TABLET(S) [place] 00 BY MOUTH Medical ONCE A Branch DAY. PANTOPRAZOL 2023-0 Yes [id number] TAKE ONE Univers E 20 mg EC 7-07 (1) ity of tablet 00:00: TABLET(S) [place] 00 BY MOUTH Medical ONCE A Branch DAY. PANTOPRAZOL 2023-0 2023- No [id number] TAKE ONE Univers E 20 mg EC -10 23-05 (1) ity of tablet 00:00: 00:00 TABLET(S) [place] 00 :00 BY MOUTH Medical ONCE A Branch DAY. LEVOTHYROXI 2023-0 2023- No [id number] TAKE ONE Univers NE 25 mcg 10-21 08- (1) TABLET ity of tablet 00:00: 00:00 BY MOUTH [place] 00 :00 EVERY Medical MORNING. Branch losartan 50 3-0 Yes [id number] 50mg Take 1 Univers mg tablet 6-29 tablet by ity o f 00:00: mouth in [place] 00 the Medical morning. Branch metoprolol 3-0 Yes [id number] 25mg Take 1 Univers succinate 6-29 tablet by ity o f XL 25 mg 24 00:00: mouth in [place] hr tablet 00 the Medical morning. Branch losartan 50 3-0 Yes [id number] 50mg Take 1 Univers mg tablet 6-29 tablet by ity o f 00:00: mouth in [place] 00 the Medical morning. Branch metoprolol 3-0 Yes [id number] 25mg Take 1 Univers succinate 6-29 tablet by ity o f XL 25 mg 24 00:00: mouth in [place] hr tablet 00 the Medical morning. Branch losartan 50 3-0 Yes [id number] 50mg Take 1 Univers mg tablet 6-29 tablet by ity o f 00:00: mouth in [place] 00 the Medical morning. Branch metoprolol 3-0 Yes [id number] 25mg Take 1 Univers succinate 6-29 tablet by ity o f XL 25 mg 24 00:00: mouth in [place] hr tablet 00 the Medical morning. Branch losartan 50 3-0 Yes [id number] 50mg Take 1 Univers mg tablet 6-29 tablet by ity o f 00:00: mouth in [place] 00 the Medical morning. Branch metoprolol 3-0 Yes [id number] 25mg Take 1 Univers succinate 6-29 tablet by ity o f XL 25 mg 24 00:00: mouth in [place] hr tablet 00 the Medical morning. Branch losartan 50 3-0 Yes [id number] 50mg Take 1 Univers mg tablet 6-29 tablet by ity o f 00:00: mouth in [place] 00 the Medical morning. Branch metoprolol 2023-0 Yes [id number] 25mg Take 1 Univers succinate 6-29 tablet by ity o f XL 25 mg 24 00:00: mouth in [place] hr tablet 00 the Medical morning. Branch losartan 50 3-0 Yes [id number] 50mg Take 1 Univers mg tablet 6-29 tablet by ity o f 00:00: mouth in [place] 00 the Medical morning. Branch metoprolol 2023-0 Yes [id number] 25mg Take 1 Univers succinate 6-29 tablet by ity o f XL 25 mg 24 00:00: mouth in [place] hr tablet 00 the Medical morning. Branch losartan 50 3-0 Yes [id number] 50mg Take 1 Univers mg tablet 6-29 tablet by ity o f 00:00: mouth in [place] 00 the Medical morning. Branch metoprolol 3-0 Yes [id number] 25mg Take 1 Univers succinate 6-29 tablet by ity o f XL 25 mg 24 00:00: mouth in [place] hr tablet 00 the Medical morning. Branch losartan 50 3-0 Yes [id number] 50mg Take 1 Univers mg tablet 6-29 tablet by ity o f 00:00: mouth in [place] 00 the Medical morning. Branch metoprolol 3-0 Yes [id number] 25mg Take 1 Univers succinate 6-29 tablet by ity o f XL 25 mg 24 00:00: mouth in [place] hr tablet 00 the Medical morning. Branch losartan 50 3-0 Yes [id number] 50mg Take 1 Univers mg tablet 6-29 tablet by ity o f 00:00: mouth in [place] 00 the Medical morning. Branch metoprolol 3-0 Yes [id number] 25mg Take 1 Univers succinate 6-29 tablet by ity o f XL 25 mg 24 00:00: mouth in [place] hr tablet 00 the Medical morning. Branch losartan 50 3-0 Yes [id number] 50mg Take 1 Univers mg tablet 6-29 tablet by ity o f 00:00: mouth in [place] 00 the Medical morning. Branch metoprolol 3-0 Yes [id number] 25mg Take 1 Univers succinate 6-29 tablet by ity o f XL 25 mg 24 00:00: mouth in [place] hr tablet 00 the Medical morning. Branch losartan 50 3-0 Yes [id number] 50mg Take 1 Univers mg tablet 6-29 tablet by ity o f 00:00: mouth in [place] 00 the Medical morning. Branch metoprolol 2023-0 Yes [id number] 25mg Take 1 Univers succinate 6-29 tablet by ity o f XL 25 mg 24 00:00: mouth in [place] hr tablet 00 the Medical morning. Branch losartan 50 3-0 Yes [id number] 50mg Take 1 Univers mg tablet 6-29 tablet by ity o f 00:00: mouth in [place] 00 the Medical morning. Branch metoprolol 2022-0 Yes [id number] 25mg Take 1 [facility] succinate 6-29 tablet by ity o f XL 25 mg 24 00:00: mouth in [place] hr tablet 00 the Medical morning. Branch losartan 50 2022-0 Yes [id number] 50mg Take 1 [facility] mg tablet 6-29 tablet by ity o f 00:00: mouth in [place] 00 the Medical morning. Branch metoprolol 2022-0 Yes [id number] 25mg Take 1 [facility] succinate 6-29 tablet by ity o f XL 25 mg 24 00:00: mouth in [place] hr tablet 00 the Medical morning. Branch losartan 50 2022-0 Yes [id number] 50mg Take 1 [facility] mg tablet 6-29 tablet by ity o f 00:00: mouth in [place] 00 the Medical morning. Branch metoprolol 2022-0 Yes [id number] 25mg Take 1 [facility] succinate 6-29 tablet by ity o f XL 25 mg 24 00:00: mouth in [place] hr tablet 00 the Medical morning. Branch losartan 50 2022-0 Yes [id number] 50mg Take 1 [facility] mg tablet 6-29 tablet by ity o f 00:00: mouth in [place] 00 the Medical morning. Branch metoprolol 2022-0 Yes [id number] 25mg Take 1 [facility] succinate 6-29 tablet by ity o f XL 25 mg 24 00:00: mouth in [place] hr tablet 00 the Medical morning. Branch losartan 50 2022-0 Yes [id number] 50mg Take 1 [facility] mg tablet 6-29 tablet by ity o f 00:00: mouth in [place] 00 the Medical morning. Branch metoprolol 2022-0 Yes [id number] 25mg Take 1 [facility] succinate 6-29 tablet by ity o f XL 25 mg 24 00:00: mouth in [place] hr tablet 00 the Medical morning. Branch losartan 50 2022-0 Yes [id number] 50mg Take 1 [facility] mg tablet 6-29 tablet by ity o f 00:00: mouth in [place] 00 the Medical morning. Branch metoprolol 2022-0 Yes [id number] 25mg Take 1 [facility] succinate 6-29 tablet by ity o f XL 25 mg 24 00:00: mouth in [place] hr tablet 00 the Medical morning. Branch gadoteridol 3-0 2022- No [id number] .2mL/kg 0.2 mL/kg, [facility] (PROHANCE-2 10-12 Intravenou i ty of 0 mL) 21:15: 21:14 s, ONCE, 1 [place] injection 00 :00 dose, On Medica l 0.2 mL/kg [facility] 10/12/22 at 1615, Routine FLUOXETINE 2022-0 Yes [id number] TAKE ONE U n[facility] 20 mg 6-23 (1) ity of capsule 00:00: CAP[place]LE([place] 00 BY MOUTH Medical IN THE [place] MORNING. FLUOXETINE 2022-0 Yes [id number] TAKE ONE U nivers 20 mg 6-23 (1) ity of capsule 00:00: CAPSULE(S[place] 00 BY MOUTH Medical IN THE [place] MORNING. FLUOXETINE 2022-0 Yes [id number] TAKE ONE U nivers 20 mg 6-23 (1) ity of capsule 00:00: CAPSULE(S[place] 00 BY MOUTH Medical IN THE [place] MORNING. FLUOXETINE 2022-0 Yes [id number] TAKE ONE U nivers 20 mg 6-23 (1) ity of capsule 00:00: CAPSULE(S[place] 00 BY MOUTH Medical IN THE [place] MORNING. FLUOXETINE 2022-0 Yes [id number] TAKE ONE U nivers 20 mg 6-23 (1) ity of capsule 00:00: CAPSULE(S[place] 00 BY MOUTH Medical IN THE [place] MORNING. FLUOXETINE 0 Yes [id number] TAKE ONE U nivers 20 mg 6-23 (1) ity of capsule 00:00: CAPSULE(S[place] 00 BY MOUTH Medical IN THE [place] MORNING. FLUOXETINE 2022-0 Yes [id number] TAKE ONE U nivers 20 mg 6-23 (1) ity of capsule 00:00: CAPSULE(S[place] 00 BY MOUTH Medical IN THE [place] MORNING. FLUOXETINE 2022-0 Yes [id number] TAKE ONE U nivers 20 mg 6-23 (1) ity of capsule 00:00: CAPSULE(S[place] 00 BY MOUTH Medical IN THE [place] MORNING. FLUOXETINE 2022-0 Yes [id number] TAKE ONE U nivers 20 mg 6-23 (1) ity of capsule 00:00: CAPSULE(S[place] 00 BY MOUTH Medical IN THE [place] MORNING. FLUOXETINE 2022-0 Yes [id number] TAKE ONE U nivers 20 mg 6-23 (1) ity of capsule 00:00: CAPSULE(S) [place] 00 BY MOUTH Medical IN THE [place] MORNING. FLUOXETINE Yes [id number] TAKE ONE U nivers 20 mg 6-23 (1) ity of capsule 00:00: CAPSULE(S) [place] 00 BY MOUTH Medical IN THE [place] MORNING. FLUOXETINE Yes [id number] TAKE ONE U nivers 20 mg 6-23 (1) ity of capsule 00:00: CAPSULE(S) [place] 00 BY MOUTH Medical IN THE [place] MORNING. FLUOXETINE Yes [id number] TAKE ONE U nivers 20 mg 6-23 (1) ity of capsule 00:00: CAPSULE(S) [place] 00 BY MOUTH Medical IN THE [place] MORNING. FLUOXETINE Yes [id number] TAKE ONE U nivers 20 mg 6-23 (1) ity of capsule 00:00: CAPSULE(S) [place] 00 BY MOUTH Medical IN THE [place] MORNING. FLUOXETINE Yes [id number] TAKE ONE U nivers 20 mg 6-23 (1) ity of capsule 00:00: CAPSULE(S) [place] 00 BY MOUTH Medical IN THE [place] MORNING. FLUOXETINE Yes [id number] TAKE ONE U nivers 20 mg 6-23 (1) ity of capsule 00:00: CAPSULE(S[place] 00 BY MOUTH Medical IN THE [place] MORNING. FLUOXETINE Yes [id number] TAKE ONE U nivers 20 mg 6-23 (1) ity of capsule 00:00: CAPSULE(S) [place] 00 BY MOUTH Medical IN THE [place] MORNING. FLUOXETINE Yes [id number] TAKE ONE U nivers 20 mg 6-23 (1) ity of capsule 00:00: CAPSULE(S[place] 00 BY MOUTH Medical IN THE [place] MORNING. FLUOXETINE Yes [id number] TAKE ONE U nivers 20 mg 6-23 (1) ity of capsule 00:00: CAPSULE(S[place] 00 BY MOUTH Medical IN THE [place] MORNING. ketorolac 2022- No [id number] 60mg [facility] (TORADOL) 6-20 - [id number] ity of injection 22:30: 22:02 [place] 60 mg 00 :00 Medical Branch cloNIDine 2022- No [id number] .2mg [facility] (CATAPRES) 10-04 ity of tablet 0.2 22:30: 22:00 [place] mg 00 :40 [facility] Branch ketorolac 2022- No [id number] 60mg 60 mg, [facility] (TORADOL) 10-04 [id number] Intramuscu i ty of injection 22:30: 22:02 [place], ONCE, [place] 60 mg 00 :00 1 dose, On [facility] 10/04/22 at 1730, Routine ketorolac 2022- No [id number] 60mg [facility] (TORADOL) 10-04 [id number] ity of injection 22:30: 22:02 [place] 60 mg 00 :00 [facility] Branch cloNIDine 2022- No [id number] .2mg [facility] [place] (CATAPRES) 10-04 ity of tablet 0.2 22:30: 22:00 [place] mg 00 :40 [facility] Branch ketorolac 2022- No [id number] 60mg 60 mg, [facility] (TORADOL) 10-04 [id number] Intramuscu i ty of injection 22:30: 22:02 [place], ONCE, [place] 60 mg 00 :00 1 dose, On [facility] 10/04/22 at 1730, Routine DULoxetine Yes [id number] 20mg Take 1 [facility] 20 mg 6-20 [id number] capsule by ity of capsule 00:00: mouth in [place] the Medical morning Branch and 1 capsule in the evening. tiZANidine Yes [id number] 2mg Take 1 [facility] 2 mg tablet 6-20 tablet by ity of 00:00: mouth [place] 00 every 8 Medical (eight) Branch hours as needed (muscle spasms). tirzepatide Yes [id number] 5mg inject 5 [facility] (MOUNJARO) 6-20 mg under ity o f 5 mg/0.5 mL 00:00: the skin [place] PnIj 00 weekly. Medical Branch DULoxetine Yes [id number] 20mg Take 1 [facility] 20 mg 6-20 [id number] capsule by ity of capsule 00:00: mouth in [place] [address] the Medical morning Branch and 1 capsule in the evening. tiZANidine 2023-0 Yes [id number] 2mg Take 1 [facility] 2 mg tablet 6-20 tablet by ity of 00:00: mouth [place] 00 every 8 Medical (eight) Branch hours as needed (muscle spasms). tirzepatide 3-0 Yes [id number] 5mg inject 5 [facility] (MOUNJARO) 6-20 mg under ity o f 5 mg/0.5 mL 00:00: the skin [place] PnIj 00 weekly. Medical Branch DULoxetine 3-0 Yes [id number] 20mg Take 1 [facility] 20 mg 6-20 [id number] capsule by ity of capsule 00:00: mouth in [place] 00 the Medical morning Branch and 1 capsule in the evening. tiZANidine 2023-0 Yes [id number] 2mg Take 1 [facility] 2 mg tablet 6-20 tablet by ity of 00:00: mouth [place] 00 every 8 Medical (eight) Branch hours as needed (muscle spasms). DULoxetine 3-0 Yes [id number] 20mg Take 1 [facility] 20 mg 6-20 [id number] capsule by ity of capsule 00:00: mouth in [place] 00 the Medical morning Branch and 1 capsule in the evening. tiZANidine 3-0 Yes [id number] 2mg Take 1 [facility] 2 mg tablet 6-20 tablet by ity of 00:00: mouth [place] 00 every 8 Medical (eight) Branch hours as needed (muscle spasms). DULoxetine 3-0 Yes [id number] 20mg Take 1 [facility] 20 mg 6-20 [id number] capsule by ity of capsule 00:00: mouth in [place] 00 the Medical morning Branch and 1 capsule in the evening. tiZANidine 2023-0 Yes [id number] 2mg Take 1 [facility] 2 mg tablet 6-20 tablet by ity of 00:00: mouth [place] 00 every 8 Medical (eight) Branch hours as needed (muscle spasms). DULoxetine 2023-0 Yes [id number] 20mg Take 1 [facility] 20 mg 6-20 [id number] capsule by ity of capsule 00:00: mouth in [place] 00 the Medical morning Branch and 1 capsule in the evening. tiZANidine 2023-0 Yes [id number] 2mg Take 1 [facility] 2 mg tablet 6-20 tablet by ity of 00:00: mouth [place] 00 every 8 Medical (eight) Branch hours as needed (muscle spasms). DULoxetine 2023-0 Yes [id number] 20mg Take 1 [facility] 20 mg 6-20 [id number] capsule by ity of capsule 00:00: mouth in [place] 00 the Medical morning Branch and 1 capsule in the evening. tiZANidine 2023-0 Yes [id number] 2mg Take 1 [facility] 2 mg tablet 6-20 tablet by ity of 00:00: mouth [place] 00 every 8 Medical (eight) Branch hours as needed (muscle spasms). DULoxetine 2023-0 Yes [id number] 20mg Take 1 [facility] 20 mg 6-20 [id number] capsule by ity of capsule 00:00: mouth in [place] 00 the Medical morning Branch and 1 capsule in the evening. tiZANidine 2023-0 Yes [id number] 2mg Take 1 [facility] 2 mg tablet 6-20 tablet by ity of 00:00: mouth [place] 00 every 8 Medical (eight) Branch hours as needed (muscle spasms). DULoxetine 2023-0 Yes [id number] 20mg Take 1 [facility] 20 mg 6-20 [id number] capsule by ity of capsule 00:00: mouth in [place] 00 the Medical morning Branch and 1 capsule in the evening. tiZANidine 2023-0 Yes [id number] 2mg Take 1 [facility] 2 mg tablet 6-20 tablet by ity of 00:00: mouth [place] 00 every 8 Medical (eight) Branch hours as needed (muscle spasms). DULoxetine 2023-0 Yes [id number] 20mg Take 1 [facility] 20 mg 6-20 [id number] capsule by ity of capsule 00:00: mouth in [place] 00 the Medical morning Branch and 1 capsule in the evening. tiZANidine 2023-0 Yes [id number] 2mg Take 1 [facility] 2 mg tablet 6-20 tablet by ity of 00:00: mouth [place] 00 every 8 Medical (eight) Branch hours as needed (muscle spasms). DULoxetine 2023-0 Yes [id number] 20mg Take 1 [facility] 20 mg 6-20 [id number] capsule by ity of capsule 00:00: mouth in [place] [address] the Medical morning Branch and 1 capsule in the evening. tiZANidine 2023-0 Yes [id number] 2mg Take 1 [facility] 2 mg tablet 6-20 tablet by ity of 00:00: mouth [place] 00 every 8 Medical (eight) Branch hours as needed (muscle spasms). DULoxetine 2023-0 Yes [id number] 20mg Take 1 [facility] 20 mg 6-20 [id number] capsule by ity of capsule 00:00: mouth in [place] 00 the Medical morning Branch and 1 capsule in the evening. tiZANidine 2023-0 Yes [id number] 2mg Take 1 [facility] 2 mg tablet 6-20 tablet by ity of 00:00: mouth [place] 00 every 8 Medical (eight) Branch hours as needed (muscle spasms). DULoxetine 2023-0 Yes [id number] 20mg Take 1 [facility] 20 mg 6-20 [id number] capsule by ity of capsule 00:00: mouth in [place] 00 the Medical morning Branch and 1 capsule in the evening. tiZANidine 2023-0 Yes [id number] 2mg Take 1 [facility] 2 mg tablet 6-20 tablet by ity of 00:00: mouth [place] 00 every 8 Medical (eight) Branch hours as needed (muscle spasms). DULoxetine 2023-0 Yes [id number] 20mg Take 1 [facility] 20 mg 6-20 [id number] capsule by ity of capsule 00:00: mouth in [place] 00 the Medical morning Branch and 1 capsule in the evening. tiZANidine 2023-0 Yes [id number] 2mg Take 1 [facility] 2 mg tablet 6-20 tablet by ity of 00:00: mouth [place] 00 every 8 Medical (eight) Branch hours as needed (muscle spasms). DULoxetine 2023-0 Yes [id number] 20mg Take 1 [facility] 20 mg 6-20 [id number] capsule by ity of capsule 00:00: mouth in [place] 00 the Medical morning Branch and 1 capsule in the evening. tiZANidine 2023-0 Yes [id number] 2mg Take 1 [facility] 2 mg tablet 6-20 tablet by ity of 00:00: mouth [place] 00 every 8 Medical (eight) Branch hours as needed (muscle spasms). DULoxetine 2023-0 Yes [id number] 20mg Take 1 [facility] 20 mg 6-20 [id number] capsule by ity of capsule 00:00: mouth in [place] [address] the Medical morning Branch and 1 capsule in the evening. tiZANidine 2023-0 Yes [id number] 2mg Take 1 [facility] 2 mg tablet 6-20 tablet by ity of 00:00: mouth [place] 00 every 8 Medical (eight) Branch hours as needed (muscle spasms). DULoxetine 3-0 Yes [id number] 20mg Take 1 [facility] 20 mg 6-20 [id number] capsule by ity of capsule 00:00: mouth in [place] 00 the Medical morning Branch and 1 capsule in the evening. tiZANidine 2022-0 Yes [id number] 2mg Take 1 [facility] 2 mg tablet 6-20 tablet by ity of 00:00: mouth [place] 00 every 8 Medical (eight) Branch hours as needed (muscle spasms). losartan-hy 2022-0 Yes [id number] 1{tbl} Take 1 [facility] drochloroth 6-20 tablet by ity of iazide 00:00: mouth in [place] 50-12.5 mg 00 the Medical per tablet morning. [facility] DULoxetine 2022-0 Yes [id number] 20mg Take 1 [facility] 20 mg 6-20 [id number] capsule by ity of capsule 00:00: mouth in [place] 00 the Medical morning Branch and 1 capsule in the evening. tiZANidine 2022-0 Yes [id number] 2mg Take 1 [facility] 2 mg tablet 6-20 tablet by ity of 00:00: mouth [place] [address] every 8 Medical (eight) Branch hours as needed (muscle spasms). tirzepatide 2022-0 Yes [id number] 5mg inject 5 [facility] (MOUNJARO) 6-20 mg under ity o f 5 mg/0.5 mL 00:00: the skin [place] PnIj 00 weekly. Medical Branch losartan-hy 2022-0 Yes [id number] 1{tbl} Take 1 [facility] drochloroth 6-20 tablet by ity of iazide 00:00: mouth in [place] 50-12.5 mg 00 the Medical per tablet morning. [facility] DULoxetine 2022-0 Yes [id number] 20mg Take 1 [facility] 20 mg 6-20 [id number] capsule by ity of capsule 00:00: mouth in [place] 00 the Medical morning Branch and 1 capsule in the evening. tiZANidine 3-0 Yes [id number] 2mg Take 1 [facility] 2 mg tablet 6-20 tablet by ity of 00:00: mouth [place] 00 every 8 Medical (eight) Branch hours as needed (muscle spasms). tirzepatide 3-0 Yes [id number] 5mg inject 5 [facility] (MOUNJARO) 6-20 mg under ity o f 5 mg/0.5 mL 00:00: the skin [place] PnIj 00 weekly. [facility] Branch losartan-hy 2022-0 Yes [id number] 1{tbl} Take 1 [facility] drochloroth 6-20 tablet by ity of iazide 00:00: mouth in [place] 50-12.5 mg 00 the Medical per tablet morning. [facility] DULoxetine 2022-0 Yes [id number] 20mg Take 1 [facility] 20 mg 6-20 [id number] capsule by ity of capsule 00:00: mouth in [place] 00 the Medical morning Branch and 1 capsule in the evening. tiZANidine 2022-0 Yes [id number] 2mg Take 1 [facility] 2 mg tablet 6-20 tablet by ity of 00:00: mouth [place] 00 every 8 Medical (eight) Branch hours as needed (muscle spasms). tirzepatide 2022-0 Yes [id number] 5mg inject 5 [facility] (MOUNJARO) 6-20 mg under ity o f 5 mg/0.5 mL 00:00: the skin [place] PnIj 00 weekly. [facility] Branch losartan-hy 2022-0 Yes [id number] 1{tbl} Take 1 [facility] drochloroth 6-20 tablet by ity of iazide 00:00: mouth in [place] 50-12.5 mg 00 the Medical per tablet morning. [facility] DULoxetine 2022-0 Yes [id number] 20mg Take 1 [facility] 20 mg 6-20 [id number] capsule by ity of capsule 00:00: mouth in [place] 00 the Medical morning Branch and 1 capsule in the evening. tiZANidine 2022-0 Yes [id number] 2mg Take 1 [facility] 2 mg tablet 6-20 tablet by ity of 00:00: mouth [place] 00 every 8 Medical (eight) Branch hours as needed (muscle spasms). tirzepatide 2022-0 Yes [id number] 5mg inject 5 [facility] (MOUNJARO) 6-20 mg under ity o f 5 mg/0.5 mL 00:00: the skin [place] PnIj 00 weekly. [facility] Branch losartan-hy 2022-0 Yes [id number] 1{tbl} Take 1 [facility] drochloroth 6-20 tablet by ity of iazide 00:00: mouth in [place] 50-12.5 mg 00 the Medical per tablet morning. Bran h DULoxetine 2022-0 Yes [id number] 20mg Take 1 [facility] 20 mg 6-20 [id number] capsule by ity of capsule 00:00: mouth in [place] 00 the Medical morning Branch and 1 capsule in the evening. tiZANidine 2022-0 Yes [id number] 2mg Take 1 [facility] 2 mg tablet 6-20 tablet by ity of 00:00: mouth [place] 00 every 8 Medical (eight) Branch hours as needed (muscle spasms). tirzepatide 2022-0 Yes [id number] 5mg inject 5 [facility] (MOUNJARO) 6-20 mg under ity o f 5 mg/0.5 mL 00:00: the skin [place] PnIj 00 weekly. Medical Branch DULoxetine 2022-0 Yes [id number] 20mg Take 1 [facility] 20 mg 6-20 [id number] capsule by ity of capsule 00:00: mouth in [place] 00 the Medical morning Branch and 1 capsule in the evening. tiZANidine 2022-0 Yes [id number] 2mg Take 1 [facility] 2 mg tablet 6-20 tablet by ity of 00:00: mouth [place] 00 every 8 Medical (eight) Branch hours as needed (muscle spasms). tirzepatide 2022-0 Yes [id number] 5mg inject 5 [facility] (MOUNJARO) 6-20 mg under ity o f 5 mg/0.5 mL 00:00: the skin [place] Pn[place]j 00 weekly. Medical Branch DULoxetine 2022-0 Yes [id number] 20mg Take 1 [facility] 20 mg 6-20 [id number] capsule by ity of capsule 00:00: mouth in [place] 00 the Medical morning Branch and 1 capsule in the evening. tiZANidine 2022-0 Yes [id number] 2mg Take 1 [facility] 2 mg tablet 6-20 tablet by ity of 00:00: mouth [place] 00 every 8 Medical (eight) Branch hours as needed (muscle spasms). tirzepatide 2022-0 Yes [id number] 5mg inject 5 [facility] (MOUNJARO) 6-20 mg under ity o f 5 mg/0.5 mL 00:00: the skin [place] Pn[place]j 00 weekly. Medical Branch DULoxetine 2022-0 Yes [id number] 20mg Take 1 [facility] 20 mg 6-20 [id number] capsule by ity of capsule 00:00: mouth in [place] 00 the Medical morning Branch and 1 capsule in the evening. tiZANidine Yes [id number] 2mg Take 1 [facility] 2 mg tablet 6-20 tablet by ity of 00:00: mouth [place] 00 every 8 Medical (eight) Branch hours as needed (muscle spasms). tirzepatide Yes [id number] 5mg inject 5 [facility] (MOUNJARO) 6-20 mg under ity o f 5 mg/0.5 mL 00:00: the skin [place] Pn[place]j 00 weekly. [facility] Branch tirzepatide 2022- No [id number] 5mg inject 5 [facility] (MOUNJARO) 6-20 07-28 mg under ity of 5 mg/0.5 mL 00:00: 00:00 the skin [place] Pn[place]j 00 :00 weekly. [facility] Branch tirzepatide 2022- No [id number] 5mg inject 5 [facility] (MOUNJARO) 6-20 07-28 mg under ity of 5 mg/0.5 mL 00:00: 00:00 the skin [place] PnIj 00 :00 weekly. [facility] Branch losartan-hy 2022- No [id number] 1{tbl} Take 1 [facility] drochloroth 6-20 06-29 tablet by it y of iazide 00:00: 00:00 mouth in [place] 50-12.5 mg 00 :00 the Medical per tablet morning. [facility] losartan-hy 2022- No [id number] 1{tbl} Take 1 [facility] drochloroth 6-20 06-29 tablet by it y of iazide 00:00: 00:00 mouth in [place] 50-12.5 mg 00 :00 the Medical per tablet morning. Bran h iopamidol 2022- No [id number] 80mL 80 mL, Univers (ISOVUE 09-28 Intravenou ity o f 370-500 mL) 20:15: 20:15 s, ONCE, 1 [place] injection 00 :00 dose, On Medica l 80 mL Wed Branch 09/28/22 at 1515, Routine NaCl 0.9% 2022- No 1000mL at 999 Uni vers (NS) bolus 09-28 mL/hr, ity of infusion 19:15: 21:35 1,000 mL, [place] 1,000 mL 00 :00 IV Medical Infusion, [place] ONCE, 1 dose, On Mon09/28/22 at 1415, JACQUI ondansetron 2022- No 4mg 4 mg, Slow [facility] (ZOFRAN 09-28 IV Push, ity of (PF)) 18:30: 19:03 ONCE, 1 [place] injection 4 00 :00 dose, On Medi lonny mg Wed Branch 09/28/22 at 1330, JACQUI morpHINE (4 2022- No 4mg 4 mg, Slow [facility] mg/mL) 09-28 IV Push, ity of injection 4 18:30: 19:03 ONCE, 1 [place] mg 00 :00 dose, On Medical Wed [place] 09/28/22 at 1330, STAT FLUOXETINE Yes [id number] TAKE ONE [facility] 20 mg 6-07 (1) ity of capsule 00:00: [place]LE [place] MOUTH IN [facility] MORNING. FLUOXETINE 0 Yes [id number] TAKE ONE [facility] 20 mg 6-07 (1) ity of capsule 00:00: [place]LE [place] M[place]TH IN [facility] MORNING. FLUOXETINE 0 Yes [id number] TAKE ONE [facility] 20 mg 6-07 (1) ity of capsule 00:00: [place]LE [place] MOUTH IN [facility] MORNING. FLUOXETINE 0 Yes [id number] TAKE ONE [facility] 20 mg 6-07 (1) ity of capsule 00:00: [place]LE [place] M[place]TH IN [facility] MORNING. FLUOXETINE 0 2022- No [id number] TAKE ONE [facility] 20 mg 6-07 06-20 (1) ity of capsule 00:00: 00:00 CAPSULE BY [place] 00 :00 MOUTH IN [facility] MORNING. FLUOXETINE 2022-0 2022- No [id number] TAKE ONE [facility] 20 mg 6-07 06-20 (1) ity of capsule 00:00: 00:00 CAPSULE BY [place] 00 :00 MOUTH IN [facility] MORNING. MELOXICAM 0 Yes [id number] TAKE ONE [facility] 7.5 mg 6-05 103 (1) TABLET ity of tablet 00:00: BY MOUTH [place] 00 IN THE Medical MORNING. Branch LEVOTHYROXI 3-0 Yes [id number] TAKE ONE [facility] NE 25 mcg 6-05 (1) TABLET ity of tablet 00:00: BY MOUTH [place] 00 EVERY Medical MORNING. Branch MELOXICAM 3-0 Yes [id number] TAKE ONE [facility] 7.5 mg 6-05 103 (1) TABLET ity of tablet 00:00: BY MOUTH [place] 00 IN THE Medical MORNING. Branch MELOXICAM 3-0 Yes [id number] TAKE ONE [facility] 7.5 mg 6-05 103 (1) TABLET ity of tablet 00:00: BY MOUTH [place] 00 IN THE Medical MORNING. Branch LEVOTHYROXI 3-0 Yes [id number] TAKE ONE [facility] NE 25 mcg 6-05 (1) TABLET ity of tablet 00:00: BY MOUTH [place] 00 EVERY Medical MORNING. Branch MELOXICAM 3-0 Yes [id number] TAKE ONE [facility] 7.5 mg 6-05 103 (1) TABLET ity of tablet 00:00: BY MOUTH [place] 00 IN THE Medical MORNING. Branch LEVOTHYROXI 3-0 Yes [id number] TAKE ONE [facility] NE 25 mcg 6-05 (1) TABLET ity of tablet 00:00: BY MOUTH [place] 00 EVERY Medical MORNING. Branch MELOXICAM 3-0 Yes [id number] TAKE ONE [facility] 7.5 mg 6-05 103 (1) TABLET ity of tablet 00:00: BY MOUTH [place] 00 IN THE Medical MORNING. Branch LEVOTHYROXI 3-0 Yes [id number] TAKE ONE [facility] NE 25 mcg 6-05 (1) TABLET ity of tablet 00:00: BY MOUTH [place] 00 EVERY Medical MORNING. Branch MELOXICAM 3-0 Yes [id number] TAKE ONE [facility] 7.5 mg 6-05 103 (1) TABLET ity of tablet 00:00: BY MOUTH [place] 00 IN THE Medical MORNING. Branch LEVOTHYROXI 3-0 Yes [id number] TAKE ONE [facility] NE 25 mcg 6-05 (1) TABLET ity of tablet 00:00: BY MOUTH [place] 00 EVERY Medical MORNING. Branch MELOXICAM 3-0 Yes [id number] TAKE ONE [facility] 7.5 mg 6-05 103 (1) TABLET ity of tablet 00:00: BY MOUTH [place] 00 IN THE Medical MORNING. Branch LEVOTHYROXI 2023-0 Yes [id number] TAKE ONE [facility] NE 25 mcg 6-05 (1) TABLET ity of tablet 00:00: BY MOUTH [place] 00 EVERY Medical MORNING. Branch MELOXICAM 3-0 Yes [id number] TAKE ONE [facility] 7.5 mg 6-05 103 (1) TABLET ity of tablet 00:00: BY MOUTH [place] 00 IN THE Medical MORNING. Branch LEVOTHYROXI 2023-0 Yes [id number] TAKE ONE [facility] NE 25 mcg 6-05 (1) TABLET ity of tablet 00:00: BY MOUTH [place] 00 EVERY Medical MORNING. Branch MELOXICAM 2023-0 Yes [id number] TAKE ONE [facility] 7.5 mg 6-05 103 (1) TABLET ity of tablet 00:00: BY MOUTH [place] 00 IN THE Medical MORNING. Branch LEVOTHYROXI 2023-0 Yes [id number] TAKE ONE [facility] NE 25 mcg 6-05 (1) TABLET ity of tablet 00:00: BY MOUTH [place] 00 EVERY Medical MORNING. Branch MELOXICAM 2023-0 Yes [id number] TAKE ONE [facility] 7.5 mg 6-05 103 (1) TABLET ity of tablet 00:00: BY MOUTH [place] 00 IN THE Medical MORNING. Branch LEVOTHYROXI 3-0 Yes [id number] TAKE ONE [facility] NE 25 mcg 6-05 (1) TABLET ity of tablet 00:00: BY MOUTH [place] 00 EVERY Medical MORNING. Branch MELOXICAM 2023-0 Yes [id number] TAKE ONE [facility] 7.5 mg 6-05 103 (1) TABLET ity of tablet 00:00: BY MOUTH [place] 00 IN THE Medical MORNING. Branch LEVOTHYROXI 2023-0 Yes [id number] TAKE ONE [facility] NE 25 mcg 6-05 (1) TABLET ity of tablet 00:00: BY MOUTH [place] 00 EVERY Medical MORNING. Branch MELOXICAM 2023-0 Yes [id number] TAKE ONE [facility] 7.5 mg 6-05 103 (1) TABLET ity of tablet 00:00: BY MOUTH [place] 00 IN THE Medical MORNING. Branch LEVOTHYROXI 2023-0 Yes [id number] TAKE ONE [facility] NE 25 mcg 6-05 (1) TABLET ity of tablet 00:00: BY MOUTH [place] 00 EVERY Medical MORNING. Branch MELOXICAM 2023-0 Yes [id number] TAKE ONE [facility] 7.5 mg 6-05 103 (1) TABLET ity of tablet 00:00: BY MOUTH [place] 00 IN THE Medical MORNING. Branch MELOXICAM 2022-0 Yes [id number] TAKE ONE [facility] 7.5 mg 6-05 103 (1) TABLET ity of tablet 00:00: BY MOUTH [place] 00 IN THE Medical MORNING. Branch MELOXICAM 2022-0 Yes [id number] TAKE ONE [facility] 7.5 mg 6-05 103 (1) TABLET ity of tablet 00:00: BY MOUTH [place] 00 IN THE Medical MORNING. Branch MELOXICAM 3-0 Yes [id number] TAKE ONE [facility] 7.5 mg 6-05 103 (1) TABLET ity of tablet 00:00: BY MOUTH [place] 00 IN THE Medical MORNING. Branch MELOXICAM 2022-0 Yes [id number] TAKE ONE [facility] 7.5 mg 6-05 103 (1) TABLET ity of tablet 00:00: BY MOUTH [place] 00 IN THE Medical MORNING. Branch MELOXICAM 2022-0 Yes [id number] TAKE ONE [facility] 7.5 mg 6-05 103 (1) TABLET ity of tablet 00:00: BY MOUTH [place] 00 IN THE Medical MORNING. Branch MELOXICAM 2022-0 Yes [id number] TAKE ONE [facility] 7.5 mg 6-05 103 (1) TABLET ity of tablet 00:00: BY MOUTH [place] 00 IN THE Medical MORNING. Branch MELOXICAM 2022-0 Yes [id number] TAKE ONE [facility] 7.5 mg 6-05 103 (1) TABLET ity of tablet 00:00: BY MOUTH [place] 00 IN THE Medical MORNING. Branch MELOXICAM 3-0 Yes [id number] TAKE ONE [facility] 7.5 mg 6-05 103 (1) TABLET ity of tablet 00:00: BY MOUTH [place] 00 IN THE Medical MORNING. Branch MELOXICAM 3-0 Yes [id number] TAKE ONE [facility] 7.5 mg 6-05 103 (1) TABLET ity of tablet 00:00: BY MOUTH [place] 00 IN THE Medical MORNING. Branch MELOXICAM 3-0 Yes [id number] TAKE ONE [facility] 7.5 mg 6-05 103 (1) TABLET ity of tablet 00:00: BY MOUTH [place] 00 IN THE Medical MORNING. Branch MELOXICAM 2023-0 Yes [id number] TAKE ONE [facility] 7.5 mg 6-05 103 (1) TABLET ity of tablet 00:00: BY MOUTH [place] 00 IN THE Medical MORNING. [place] MELOXICAM 0 Yes [id number] TAKE ONE [facility] 7.5 mg 6-05 103 (1) TABLET ity of tablet 00:00: BY MOUTH [place] 00 IN THE Medical MORNING. [place] MELOXICAM 2022- No [id number] TAKE ONE [facility] 7.5 mg 6-05 09-14 103 (1) TABLET ity of tablet 00:00: 00:00 BY MOUTH [place] 00 :00 IN THE Medical MORNING. [place] LEVOTHYROXI 2022- No [id number] TAKE ONE [facility] NE 25 mcg 6-05 07-07 (1) TABLET ity of tablet 00:00: 00:00 BY MOUTH [place] 00 :00 EVERY Medical MORNING. [place] FLUOXETINE Yes [id number] TAKE ONE [facility] 20 mg 5-10 (1) ity of capsule 00:00: [place]SULE [place] 00 MOU[place] IN [facility] MORNING. MOUNJARO 5 Yes [id number] INJECT Univers mg/0.5 mL 5-10 FIVE (5) ity of PnIj 00:00: MG INTO [place] 00 SKIN ONCE Medical WEEKLY. [place] FLUOXETINE Yes [id number] TAKE ONE [facility] 20 mg 5-10 (1) ity of capsule 00:00: [place]LE [place] 00 MOUTH IN [facility] MORNING. MOUNJARO 5 2022-0 Yes [id number] INJECT Univers mg/0.5 mL 5-10 FIVE (5) ity of PnIj 00:00: MG INTO [place] 00 SKIN ONCE Medical WEEKLY. [place] FLUOXETINE Yes [id number] TAKE ONE [facility] 20 mg 5-10 (1) ity of capsule 00:00: [place]LE [place] 00 MOUTH IN [facility] MORNING. MOUNJARO 5 2022-0 Yes [id number] INJECT Univers mg/0.5 mL 5-10 FIVE (5) ity of PnIj 00:00: MG INTO [place] 00 SKIN ONCE Medical WEEKLY. [place] FLUOXETINE Yes [id number] TAKE ONE [facility] 20 mg 5-10 (1) ity of capsule 00:00: [place]LE [place] 00 MOUTH IN [facility] MORNING. MOUNJARO 5 Yes [id number] INJECT Univers mg/0.5 mL 5-10 FIVE (5) ity of PnIj 00:00: MG INTO [place] 00 SKIN ONCE Medical WEEKLY. [place] FLUOXETINE 0 Yes [id number] TAKE ONE [facility] 20 mg 5-10 (1) ity of capsule 00:00: [place]LE [place] 00 MOUTH IN [facility] MORNING. MOUNJARO 5 Yes [id number] INJECT Univers mg/0.5 mL 5-10 FIVE (5) ity of PnIj 00:00: MG INTO [place] 00 SKIN ONCE Medical WEEKLY. [place] FLUOXETINE Yes [id number] TAKE ONE [facility] 20 mg 5-10 (1) ity of capsule 00:00: [place]SULE [place] 00 MOUTH IN [facility] MORNING. [facility] Yes [id number] INJECT Univers mg/0.5 mL 5-10 FIVE (5) ity of PnIj 00:00: MG INTO [place] 00 SKIN ONCE Medical WEEKLY. [place] MOUNRO 5 Yes [id number] INJECT Univers mg/0.5 mL 5-10 FIVE (5) ity of PnIj 00:00: MG INTO [place] 00 SKIN ONCE Medical WEEKLY. [place] MOUNRO 5 Yes [id number] INJECT Univers mg/0.5 mL 5-10 FIVE (5) ity of PnIj 00:00: MG INTO [place] 00 SKIN ONCE Medical WEEKLY. [place] MOUNRO 5 Yes [id number] INJECT Univers mg/0.5 mL 5-10 FIVE (5) ity of PnIj 00:00: MG INTO [place] 00 SKIN ONCE Medical WEEKLY. [place] MOUNRO 5 Yes [id number] INJECT Univers mg/0.5 mL 5-10 FIVE (5) ity of PnIj 00:00: MG INTO [place] 00 SKIN ONCE Medical WEEKLY. [place] MOUNRO 5 2022- No [id number] INJECT Univers mg/0.5 mL 5-10 06-20 FIVE (5) ity o f PnIj 00:00: 00:00 MG INTO [place] 00 :00 SKIN ONCE Medical WEEKLY. [place] MOUNRO 5 2022- No [id number] INJECT Univers mg/0.5 mL 5-10 06-20 FIVE (5) ity o f PnIj 00:00: 00:00 MG INTO [place] 00 :00 SKIN ONCE Medical WEEKLY. Branch FLUOXETINE 2022-0 2022- No [id number] TAKE ONE [facility] 20 mg 10 09-21 (1) ity of capsule 00:00: 00:00 CAPSULE BY [place] 00 :00 MOUTH IN Medical THE Branch MORNING. PANTOPRAZOL 2022-0 Yes [id number] TAKE ONE [facility] E 20 mg EC 5-03 (1) ity of tablet 00:00: TABLET(S) [place] 00 BY MOUTH Medical ONCE A Branch DAY. LEVOTHYROXI 2022-0 Yes [id number] TAKE ONE [facility] NE 25 mcg 5-03 (1) TABLET ity of tablet 00:00: BY MOUTH [place] [address] EVERY Medical MORNING. Branch PANTOPRAZOL 2022-0 Yes [id number] TAKE ONE [facility] E 20 mg EC 5-03 (1) ity of tablet 00:00: TABLET(S) [place] 00 BY MOUTH Medical ONCE A Branch DAY. LEVOTHYROXI 2022-0 Yes [id number] TAKE ONE [facility] NE 25 mcg 5-03 (1) TABLET ity of tablet 00:00: BY MOUTH [place] [address] EVERY Medical MORNING. Branch PANTOPRAZOL 2022-0 Yes [id number] TAKE ONE [facility] E 20 mg EC 5-03 (1) ity of tablet 00:00: TABLET(S) [place] 00 BY MOUTH Medical ONCE A Branch DAY. LEVOTHYROXI 2022-0 Yes [id number] TAKE ONE [facility] NE 25 mcg 5-03 (1) TABLET ity of tablet 00:00: BY MOUTH [place] [address] EVERY Medical MORNING. Branch PANTOPRAZOL 2022-0 Yes [id number] TAKE ONE [facility] E 20 mg EC 5-03 (1) ity of tablet 00:00: TABLET(S) [place] 00 BY MOUTH Medical ONCE A Branch DAY. LEVOTHYROXI 2022-0 Yes [id number] TAKE ONE [facility] NE 25 mcg 5-03 (1) TABLET ity of tablet 00:00: BY MOUTH [place] [address] EVERY Medical MORNING. Branch PANTOPRAZOL 2022-0 Yes [id number] TAKE ONE [facility] E 20 mg EC 5-03 (1) ity of tablet 00:00: TABLET(S) [place] 00 BY MOUTH Medical ONCE A Branch DAY. LEVOTHYROXI 2022-0 Yes [id number] TAKE ONE [facility] NE 25 mcg 5-03 (1) TABLET ity of tablet 00:00: BY MOUTH [place] 00 EVERY Medical MORNING. Branch PANTOPRAZOL 2023-0 Yes [id number] TAKE ONE [facility] E 20 mg EC 5-03 (1) ity of tablet 00:00: TABLET(S) [place] 00 BY MOUTH Medical ONCE A Branch DAY. LEVOTHYROXI 2023-0 Yes [id number] TAKE ONE [facility] NE 25 mcg 5-03 (1) TABLET ity of tablet 00:00: BY MOUTH [place] 00 EVERY Medical MORNING. Branch PANTOPRAZOL 2023-0 Yes [id number] TAKE ONE [facility] E 20 mg EC 5-03 (1) ity of tablet 00:00: TABLET(S) [place] 00 BY MOUTH Medical ONCE A Branch DAY. PANTOPRAZOL 2023-0 Yes [id number] TAKE ONE [facility] E 20 mg EC 5-03 (1) ity of tablet 00:00: TABLET(S) [place] 00 BY MOUTH Medical ONCE A Branch DAY. PANTOPRAZOL 2023-0 Yes [id number] TAKE ONE [facility] E 20 mg EC 5-03 (1) ity of tablet 00:00: TABLET(S) [place] 00 BY MOUTH Medical ONCE A Branch DAY. PANTOPRAZOL 2023-0 Yes [id number] TAKE ONE [facility] E 20 mg EC 5-03 (1) ity of tablet 00:00: TABLET(S) [place] 00 BY MOUTH Medical ONCE A Branch DAY. PANTOPRAZOL 2023-0 Yes [id number] TAKE ONE [facility] E 20 mg EC 5-03 (1) ity of tablet 00:00: TABLET(S) [place] 00 BY MOUTH Medical ONCE A Branch DAY. PANTOPRAZOL 2023-0 Yes [id number] TAKE ONE [facility] E 20 mg EC 5-03 (1) ity of tablet 00:00: TABLET(S) [place] 00 BY MOUTH Medical ONCE A Branch DAY. PANTOPRAZOL 2023-0 Yes [id number] TAKE ONE [facility] E 20 mg EC 5-03 (1) ity of tablet 00:00: TABLET(S) [place] 00 BY MOUTH Medical ONCE A Branch DAY. PANTOPRAZOL 2023-0 Yes [id number] TAKE ONE [facility] E 20 mg EC 5-03 (1) ity of tablet 00:00: TABLET(S) [place] 00 BY MOUTH Medical ONCE A Branch DAY. PANTOPRAZOL 3-0 Yes [id number] TAKE ONE [facility] E 20 mg EC 5-03 (1) ity of tablet 00:00: TABLET(S) [place] 00 BY MOUTH Medical ONCE A Branch DAY. PANTOPRAZOL 3-0 Yes [id number] TAKE ONE [facility] E 20 mg EC 5-03 (1) ity of tablet 00:00: TABLET(S) [place] 00 BY MOUTH Medical ONCE A Branch DAY. PANTOPRAZOL 3-0 Yes [id number] TAKE ONE [facility] E 20 mg EC 5-03 (1) ity of tablet 00:00: TABLET(S) [place] 00 BY MOUTH Medical ONCE A Branch DAY. PANTOPRAZOL 3-0 Yes [id number] TAKE ONE [facility] E 20 mg EC 5-03 (1) ity of tablet 00:00: TABLET(S) [place] 00 BY MOUTH Medical ONCE A Branch DAY. PANTOPRAZOL 3-0 3- No [id number] TAKE ONE [facility] E 20 mg EC 5-03 07-07 (1) ity of tablet 00:00: 00:00 TABLET(S) [place] 00 :00 BY MOUTH Medical ONCE A Branch DAY. LEVOTHYROXI 2022-0 2022- No [id number] TAKE ONE [facility] NE 25 mcg 5-03 06-05 (1) TABLET ity of tablet 00:00: 00:00 BY MOUTH [place] 00 :00 EVERY Medical MORNING. [place] LEVOTHYROXI 2022-0 2022- No [id number] TAKE ONE [facility] NE 25 mcg 5-03 06-05 (1) TABLET ity of tablet 00:00: 00:00 BY MOUTH [place] 00 :00 EVERY Medical MORNING. [place] LEVOTHYROXI 2022-0 Yes [id number] TAKE ONE [facility] NE 25 mcg 4-06 (1) TABLET ity of tablet 00:00: BY MOUTH [place] 00 EVERY Medical MORNING. [place] LEVOTHYROXI 2022-0 2022- No [id number] TAKE ONE [facility] NE 25 mcg 4-06 05-03 (1) TABLET ity of tablet 00:00: 00:00 BY MOUTH [place] 00 :00 EVERY Medical MORNING. [place] MOUNJARO 5 2022-0 Yes [id number] INJECT Univers mg/0.5 mL 3-23 FIVE (5) ity of PnIj 00:00: MG [place] 00 [facility] WEEKLY. MOUNJARO 5 2022-0 Yes [id number] INJECT Univers mg/0.5 mL 3-23 FIVE (5) ity of PnIj 00:00: MG [facility] WEEKLY. MOUNJARO 5 2022-0 Yes [id number] INJECT Univers mg/0.5 mL 3-23 FIVE (5) ity of PnIj 00:00: MG [facility] WEEKLY. MOUNJARO 5 2022-0 2022- No [id number] INJECT Univers mg/0.5 mL 3-23 05-10 FIVE (5) ity o f PnIj 00:00: 00:00 MG [place] 00 :00 [facility] WEEKLY. LEVOTHYROXI 2022-0 Yes [id number] TAKE ONE [facility] NE 25 mcg 3-09 (1) TABLET ity of tablet 00:00: BY MOUTH [place] 00 EVERY Medical MORNING. Branch LEVOTHYROXI 2022-0 Yes [id number] TAKE ONE [facility] NE 25 mcg 3-09 (1) TABLET ity of tablet 00:00: BY MOUTH [place] 00 EVERY Medical MORNING. Branch LEVOTHYROXI 2022-0 Yes [id number] TAKE ONE [facility] NE 25 mcg 3-09 (1) TABLET ity of tablet 00:00: BY MOUTH [place] 00 EVERY Medical MORNING. Branch LEVOTHYROXI 2022-0 2022- No [id number] TAKE ONE [facility] NE 25 mcg 3-09 04-06 (1) TABLET ity of tablet 00:00: 00:00 BY MOUTH [place] 00 :00 EVERY Medical MORNING. Branch MOUNJARO 5 2022-0 Yes [id number] INJECT Univers mg/0.5 mL 2-27 FIVE (5) ity of PnIj 00:00: MG [facility] WEEKLY. MOUNJARO 5 2022-0 Yes [id number] INJECT Univers mg/0.5 mL 2-27 FIVE (5) ity of PnIj 00:00: MG [facility] WEEKLY. MOUNJARO 5 2022-0 Yes [id number] INJECT Univers mg/0.5 mL 2-27 FIVE (5) ity of PnIj 00:00: MG [facility] WEEKLY. MOUNJARO 5 2022-3- No [id number] INJECT Univers mg/0.5 mL 06-1323 FIVE (5) ity o f PnIj 00:00: 00:00 MG [place] 00 :00 [facility] WEEKLY. PANTOPRAZOL 2022-0 Yes [id number] TAKE ONE Univers E 20 mg EC 2-23 (1) ity of tablet 00:00: TABLET(S) [place] 00 BY MOUTH Medical ONCE A Branch DAY. PANTOPRAZOL 2022-0 Yes [id number] TAKE ONE [facility] E 20 mg EC 2-23 (1) ity of tablet 00:00: TABLET(S) [place] 00 BY MOUTH Medical ONCE A Branch DAY. PANTOPRAZOL 2022-0 Yes [id number] TAKE ONE [facility] E 20 mg EC 2-23 (1) ity of tablet 00:00: TABLET(S) [place] 00 BY MOUTH Medical ONCE A Branch DAY. PANTOPRAZOL 2022-0 Yes [id number] TAKE ONE [facility] E 20 mg EC 2-23 (1) ity of tablet 00:00: TABLET(S) [place] 00 BY MOUTH Medical ONCE A Branch DAY. PANTOPRAZOL 2022-0 Yes [id number] TAKE ONE [facility] E 20 mg EC 2-23 (1) ity of tablet 00:00: TABLET(S) [place] 00 BY MOUTH Medical ONCE A Branch DAY. PANTOPRAZOL 2022-0 Yes [id number] TAKE ONE [facility] E 20 mg EC 2-23 (1) ity of tablet 00:00: TABLET(S) [place] 00 BY MOUTH Medical ONCE A Branch DAY. PANTOPRAZOL 2022-0 3- No [id number] TAKE ONE [facility] E 20 mg EC 2-23 05-03 (1) ity of tablet 00:00: 00:00 TABLET(S) [place] 00 :00 BY MOUTH Medical ONCE A Branch DAY. losartan-hy 2022-0 Yes [id number] 1{tbl} Take 1 [facility] drochloroth 2-17 tablet by ity of iazide 00:00: mouth in [place] 50-12.5 mg 00 the Medical per tablet morning. Branc h losartan-hy 3-0 Yes [id number] 1{tbl} Take 1 [facility] drochloroth 2-17 tablet by ity of iazide 00:00: mouth in [place] 50-12.5 mg 00 the Medical per tablet morning. [facility] losartan-hy 2023-0 Yes [id number] 1{tbl} Take 1 Univers drochloroth 2-17 tablet by ity of iazide 00:00: mouth in [place] 50-12.5 mg 00 the Medical per tablet morning. [facility] losartan-hy 2023-0 Yes [id number] 1{tbl} Take 1 Univers drochloroth 2-17 tablet by ity of iazide 00:00: mouth in [place] 50-12.5 mg 00 the Medical per tablet morning. [facility] losartan-hy 2023-0 Yes [id number] 1{tbl} Take 1 [facility] drochloroth 2-17 tablet by ity of iazide 00:00: mouth in [place] 50-12.5 mg 00 the Medical per tablet morning. [facility] losartan-hy 2023-0 Yes [id number] 1{tbl} Take 1 [facility] drochloroth 2-17 tablet by ity of iazide 00:00: mouth in [place] 50-12.5 mg 00 the Medical per tablet morning. [facility] losartan-hy 3-0 Yes [id number] 1{tbl} Take 1 [facility] drochloroth 2-17 tablet by ity of iazide 00:00: mouth in [place] 50-12.5 mg 00 the Medical per tablet morning. [facility] losartan-hy 2023-0 Yes [id number] 1{tbl} Take 1 [facility] drochloroth 2-17 tablet by ity of iazide 00:00: mouth in [place] 50-12.5 mg 00 the Medical per tablet morning. [facility] losartan-hy 2023-0 Yes [id number] 1{tbl} Take 1 Univers drochloroth 2-17 tablet by ity of iazide 00:00: mouth in [place] 50-12.5 mg 00 the Medical per tablet morning. [facility] losartan-hy 2023-0 Yes [id number] 1{tbl} Take 1 [facility] drochloroth 2-17 tablet by ity of iazide 00:00: mouth in [place] 50-12.5 mg 00 the Medical per tablet morning. [facility] losartan-hy 2023-0 Yes [id number] 1{tbl} Take 1 [facility] drochloroth 2-17 tablet by ity of iazide 00:00: mouth in [place] 50-12.5 mg 00 the Medical per tablet morning. [facility] losartan-hy 2023-0 Yes [id number] 1{tbl} Take 1 Univers drochloroth 2-17 tablet by ity of iazide 00:00: mouth in [place] 50-12.5 mg 00 the Medical per tablet morning. [facility] losartan-hy 2023-0 Yes [id number] 1{tbl} Take 1 [facility] drochloroth 2-17 tablet by ity of iazide 00:00: mouth in [place] 50-12.5 mg 00 the Medical per tablet morning. [facility] losartan-hy 2023-0 Yes [id number] 1{tbl} Take 1 Univers drochloroth 2-17 tablet by ity of iazide 00:00: mouth in [place] 50-12.5 mg 00 the Medical per tablet morning. [facility] losartan-hy 2023-0 Yes [id number] 1{tbl} Take 1 [facility] drochloroth 2-17 tablet by ity of iazide 00:00: mouth in [place] 50-12.5 mg 00 the Medical per tablet morning. [facility] losartan-hy 2023-0 Yes [id number] 1{tbl} Take 1 [facility] drochloroth 2-17 tablet by ity of iazide 00:00: mouth in [place] 50-12.5 mg 00 the Medical per tablet morning. [facility] losartan-hy 2023-0 Yes [id number] 1{tbl} Take 1 [facility] drochloroth 2-17 tablet by ity of iazide 00:00: mouth in [place] 50-12.5 mg 00 the Medical per tablet morning. [facility] losartan-hy 2023-0 Yes [id number] 1{tbl} Take 1 [facility] drochloroth 2-17 tablet by ity of iazide 00:00: mouth in [place] 50-12.5 mg 00 the Medical per tablet morning. [facility] losartan-hy 2023-0 Yes [id number] 1{tbl} Take 1 [facility] drochloroth 2-17 tablet by ity of iazide 00:00: mouth in [place] 50-12.5 mg 00 the Medical per tablet morning. [facility] losartan-hy 2023-0 Yes [id number] 1{tbl} Take 1 [facility] drochloroth 2-17 tablet by ity of iazide 00:00: mouth in [place] 50-12.5 mg 00 the Medical per tablet morning. [facility] losartan-hy 2022- Yes [id number] 1{tbl} Take 1 [facility] drochloroth 2-17 tablet by ity of iazide 00:00: mouth in [place] 50-12.5 mg 00 the Medical per tablet morning. [facility] losartan-hy 2022-2022- No [id number] 1{tbl} Take 1 [facility] drochloroth 2-17 06-20 tablet by it y of iazide 00:00: 00:00 mouth in [place] 50-12.5 mg 00 :00 the Medical per tablet morning. [facility] losartan-hy 2022-2022- No [id number] 1{tbl} Take 1 [facility] drochloroth 2-17 06-20 tablet by it y of iazide 00:00: 00:00 mouth in [place] 50-12.5 mg 00 :00 the Medical per tablet morning. [facility] LOSARTAN-HY Yes [id number] TAKE ONE Univers DROCHLOROTH 2-13 (1) ity of IAZIDE 00:00: TABLET(S) [place] 50-12.5 mg 00 BY MOUTH Medic al per tablet ONCE A Branch DAY. LOSARTAN-HY 2022- No [id number] TAKE ONE Univers DROCHLOROTH 2-13 -17 (1) ity of IAZIDE 00:00: 00:00 TABLET(S) [place] 50-12.5 mg 00 :00 BY MOUTH Medic al per tablet ONCE A Branch DAY. LOSARTAN-HY 2022- No [id number] TAKE ONE Univers DROCHLOROTH 2-13 -17 (1) ity of IAZIDE 00:00: 00:00 TABLET(S) [place] 50-12.5 mg 00 :00 BY MOUTH Medic al per tablet ONCE A Branch DAY. tirzepatide Yes [id number] 5mg inject 5 Univers (MOUNJARO) 1-26 mg under ity o f 5 mg/0.5 mL 00:00: the skin [place] PnIj 00 weekly. Medical Branch tirzepatide 0 Yes [id number] 5mg inject 5 Univers (MOUNJARO) 1-26 mg under ity o f 5 mg/0.5 mL 00:00: the skin [place] PnIj 00 weekly. Medical Branch tirzepatide Yes [id number] 5mg inject 5 Univers (MOUNJARO) 1-26 mg under ity o f 5 mg/0.5 mL 00:00: the skin [place] PnIj 00 weekly. Medical Branch tirzepatide Yes [id number] 5mg inject 5 Univers (MOUNJARO) 1-26 mg under ity o f 5 mg/0.5 mL 00:00: the skin [place] PnIj 00 weekly. Medical Branch tirzepatide Yes [id number] 5mg inject 5 Univers (MOUNJARO) 1-26 mg under ity o f 5 mg/0.5 mL 00:00: the skin [place] PnIj 00 weekly. [facility] Branch tirzepatide Yes [id number] 5mg inject 5 Univers (MOUNJARO) 1-26 mg under ity o f 5 mg/0.5 mL 00:00: the skin [place] PnIj 00 weekly. Medical Branch tirzepatide Yes [id number] 5mg inject 5 Univers (MOUNJARO) 1-26 mg under ity o f 5 mg/0.5 mL 00:00: the skin [place] PnIj 00 weekly. [facility] Branch tirzepatide Yes [id number] 5mg inject 5 Univers (MOUNJARO) 1-26 mg under ity o f 5 mg/0.5 mL 00:00: the skin [place] PnIj 00 weekly. Medical Branch tirzepatide 2022- No [id number] 5mg inject 5 Univers (MOUNJARO) 1-26 02-27 mg under ity of 5 mg/0.5 mL 00:00: 00:00 the skin [place] PnIj 00 :00 weekly. Medical Branch PANTOPRAZOL 2021-04 Yes [id number] TAKE ONE Univers E 20 mg EC 2-28 (1) ity of tablet 00:00: TABLET(S) [place] 00 BY MOUTH Medical ONCE A DAY. PANTOPRAZOL 2021-04 Yes [id number] TAKE ONE [facility] E 20 mg EC 2-28 (1) ity of tablet 00:00: TABLET(S) [place] 00 BY MOUTH Medical ONCE A Branch DAY. PANTOPRAZOL 2021-04 Yes [id number] TAKE ONE [facility] E 20 mg EC 2-28 (1) ity of tablet 00:00: TABLET(S) [place] 00 BY MOUTH Medical ONCE A Branch DAY. PANTOPRAZOL 2021-04 Yes [id number] TAKE ONE [facility] E 20 mg EC 2-28 (1) ity of tablet 00:00: TABLET(S) [place] 00 BY MOUTH Medical ONCE A Branch DAY. PANTOPRAZOL 2021-04 Yes [id number] TAKE ONE [facility] E 20 mg EC 2-28 (1) ity of tablet 00:00: TABLET(S) [place] 00 BY MOUTH Medical ONCE A Branch DAY. PANTOPRAZOL 2021-04 Yes [id number] TAKE ONE [facility] E 20 mg EC 2-28 (1) ity of tablet 00:00: TABLET(S) [place] 00 BY MOUTH Medical ONCE A Branch DAY. PANTOPRAZOL 2021-04 Yes [id number] TAKE ONE [facility] E 20 mg EC 2-28 (1) ity of tablet 00:00: TABLET(S) [place] 00 BY MOUTH Medical ONCE A Branch DAY. PANTOPRAZOL 2021-04 Yes [id number] TAKE ONE [facility] E 20 mg EC 2-28 (1) ity of tablet 00:00: TABLET(S) [place] 00 BY MOUTH Medical ONCE A Branch DAY. PANTOPRAZOL 2021-043- No [id number] TAKE ONE [facility] E 20 mg EC 2-28 02-23 (1) ity of tablet 00:00: 00:00 TABLET(S) [place] 00 :00 BY MOUTH Medical ONCE A Branch DAY. LOSARTAN-HY 2021-04 Yes [id number] TAKE ONE Univers DROCHLOROTH 2-14 (1) ity of IAZIDE 00:00: TABLET(S) [place] 50-12.5 mg 00 BY MOUTH Medic al per tablet ONCE A Branch DAY. LOSARTAN-HY 2021-1 Yes [id number] TAKE ONE Univers DROCHLOROTH 2-14 (1) ity of IAZIDE 00:00: TABLET(S) [place] 50-12.5 mg 00 BY MOUTH Medic al per tablet ONCE A Branch DAY. LOSARTAN-HY 2021- Yes [id number] TAKE ONE Univers DROCHLOROTH 2-14 (1) ity of IAZIDE 00:00: TABLET(S) [place] 50-12.5 mg 00 BY MOUTH Medic al per tablet ONCE A Branch DAY. LOSARTAN-HY 2021-04 Yes [id number] TAKE ONE Univers DROCHLOROTH 2-14 (1) ity of IAZIDE 00:00: TABLET(S) [place] 50-12.5 mg 00 BY MOUTH Medic al per tablet ONCE A Branch DAY. LOSARTAN-HY 2021-04- No [id number] TAKE ONE Univers DROCHLOROTH 2-14 - (1) ity of IAZIDE 00:00: 00:00 TABLET(S) [place] 50-12.5 mg 00 :00 BY MOUTH Medic al per tablet ONCE A Branch DAY. ondansetron 2021-04 No 4mg 4 mg, Slow Univers (ZOFRAN 0-20 10-20 IV Push, ity of (PF)) 13:45: 13:42 ONCE, 1 [place] injection 4 00 :00 dose, On Medi lonny mg Judi Branch 02/03/22 at 0845, JACQUI ondansetron 2021-04 Yes [id number] 4mg Take 1 U nivers 4 mg 0-20 tablet by ity of disintegrat 00:00: mouth [place] ing tablet 00 every 8 Medica l (eight) Branch hours as needed for Nausea and Vomiting (N/V). ondansetron 2021-04 Yes [id number] 4mg Take 1 U nivers 4 mg 0-20 tablet by ity of disintegrat 00:00: mouth [place] ing tablet 00 every 8 Medica l (eight) Branch hours as needed for Nausea and Vomiting (N/V). ondansetron 2021-04 Yes [id number] 4mg Take 1 U nivers 4 mg 0-20 tablet by ity of disintegrat 00:00: mouth [place] ing tablet 00 every 8 Medica l (eight) Branch hours as needed for Nausea and Vomiting (N/V). ondansetron 2021-04 Yes [id number] 4mg Take 1 U nivers 4 mg 0-20 tablet by ity of disintegrat 00:00: mouth [place] ing tablet 00 every 8 Medica l (eight) Branch hours as needed for Nausea and Vomiting (N/V). ondansetron 2021-04 Yes [id number] 4mg Take 1 U nivers 4 mg 0-20 tablet by ity of disintegrat 00:00: mouth [place] ing tablet 00 every 8 Medica l (eight) Branch hours as needed for Nausea and Vomiting (N/V). ondansetron 2021-04 Yes [id number] 4mg Take 1 U nivers 4 mg 0-20 tablet by ity of disintegrat 00:00: mouth [place] ing tablet 00 every 8 Medica l (eight) Branch hours as needed for Nausea and Vomiting (N/V). ondansetron 2021-04 Yes [id number] 4mg Take 1 U nivers 4 mg 0-20 tablet by ity of disintegrat 00:00: mouth [place] ing tablet 00 every 8 Medica l (eight) Branch hours as needed for Nausea and Vomiting (N/V). ondansetron 2021-04 Yes [id number] 4mg Take 1 U nivers 4 mg 0-20 tablet by ity of disintegrat 00:00: mouth [place] ing tablet 00 every 8 Medica l (eight) Branch hours as needed for Nausea and Vomiting (N/V). ondansetron 2021-04 Yes [id number] 4mg Take 1 U nivers 4 mg 0-20 tablet by ity of disintegrat 00:00: mouth [place] ing tablet 00 every 8 Medica l (eight) Branch hours as needed for Nausea and Vomiting (N/V). ondansetron 2021-04 Yes [id number] 4mg Take 1 U nivers 4 mg 0-20 tablet by ity of disintegrat 00:00: mouth [place] ing tablet 00 every 8 Medica l (eight) Branch hours as needed for Nausea and Vomiting (N/V). ondansetron 2021-04 Yes [id number] 4mg Take 1 U nivers 4 mg 0-20 tablet by ity of disintegrat 00:00: mouth [place] ing tablet 00 every 8 Medica l (eight) Branch hours as needed for Nausea and Vomiting (N/V). ondansetron 2021-04 Yes [id number] 4mg Take 1 U nivers 4 mg 0-20 tablet by ity of disintegrat 00:00: mouth [place] ing tablet 00 every 8 Medica l (eight) Branch hours as needed for Nausea and Vomiting (N/V). ondansetron 2021-04 Yes [id number] 4mg Take 1 U nivers 4 mg 0-20 tablet by ity of disintegrat 00:00: mouth [place] ing tablet 00 every 8 Medica l (eight) Branch hours as needed for Nausea and Vomiting (N/V). ondansetron 2021-04 Yes [id number] 4mg Take 1 U nivers 4 mg 0-20 tablet by ity of disintegrat 00:00: mouth [place] ing tablet 00 every 8 Medica l (eight) Branch hours as needed for Nausea and Vomiting (N/V). ondansetron 2021-04 Yes [id number] 4mg Take 1 U nivers 4 mg 0-20 tablet by [facility] of disintegrat 00:00: mouth [place] ing tablet 00 every 8 [facility] (eight) Branch hours as needed for Nausea and Vomiting (N/V). ondansetron 2021-04 Yes [id number] 4mg Take 1 U nivers 4 mg 0-20 tablet by [facility] of disintegrat 00:00: mouth [place] ing tablet 00 every 8 [facility] (eight) Branch hours as needed for Nausea and Vomiting (N/V). ondansetron 2021-04 Yes [id number] 4mg Take 1 U nivers 4 mg 0-20 tablet by [facility] of disintegrat 00:00: mouth [place] ing tablet 00 every 8 [facility] (eight) Branch hours as needed for Nausea and Vomiting (N/V). ondansetron 2021-04 Yes [id number] 4mg Take 1 U nivers 4 mg 0-20 tablet by [facility] of disintegrat 00:00: mouth [place] ing tablet 00 every 8 [facility] (eight) Branch hours as needed for Nausea and Vomiting (N/V). ondansetron 2021-04 Yes [id number] 4mg Take 1 U nivers 4 mg 0-20 tablet by [facility] of disintegrat 00:00: mouth [place] ing tablet 00 every 8 [facility] (eight) Branch hours as needed for Nausea and Vomiting (N/V). ondansetron 2021-04 Yes [id number] 4mg Take 1 U nivers 4 mg 0-20 tablet by [facility] of disintegrat 00:00: mouth [place] ing tablet 00 every 8 [facility] (eight) Branch hours as needed for Nausea and Vomiting (N/V). ondansetron 2021-04 Yes [id number] 4mg Take 1 U nivers 4 mg 0-20 tablet by [facility]y of disintegrat 00:00: mouth [place] ing tablet 00 every 8 [facility] (eight) Branch hours as needed for Nausea and Vomiting (N/V). ondansetron 2021-04 Yes [id number] 4mg Take 1 U nivers 4 mg 0-20 tablet by [facility] of disintegrat 00:00: mouth [place] ing tablet 00 every 8 Medica l (eight) Branch hours as needed for Nausea and Vomiting (N/V). ondansetron 2021-04 Yes [id number] 4mg Take 1 U nivers 4 mg 0-20 tablet by ity of disintegrat 00:00: mouth [place] ing tablet 00 every 8 Medica l (eight) Branch hours as needed for Nausea and Vomiting (N/V). ondansetron 2021-04 Yes [id number] 4mg Take 1 U nivers 4 mg 0-20 tablet by ity of disintegrat 00:00: mouth [place] ing tablet 00 every 8 Medica l (eight) Branch hours as needed for Nausea and Vomiting (N/V). ondansetron 2021-04 Yes [id number] 4mg Take 1 U nivers 4 mg 0-20 tablet by ity of disintegrat 00:00: mouth [place] ing tablet 00 every 8 Medica l (eight) Branch hours as needed for Nausea and Vomiting (N/V). ondansetron 2021-04 Yes [id number] 4mg Take 1 U nivers 4 mg 0-20 tablet by [facility]y of disintegrat 00:00: mouth [place] ing tablet 00 every 8 Medica l (eight) Branch hours as needed for Nausea and Vomiting (N/V). ondansetron 2021-04 Yes [id number] 4mg Take 1 U nivers 4 mg 0-20 tablet by [facility] of disintegrat 00:00: mouth [place] ing tablet 00 every 8 Medica l (eight) Branch hours as needed for Nausea and Vomiting (N/V). ondansetron 2021-04 Yes [id number] 4mg Take 1 U nivers 4 mg 0-20 tablet by [facility] of disintegrat 00:00: mouth [place] ing tablet 00 every 8 Medica l (eight) Branch hours as needed for Nausea and Vomiting (N/V). ondansetron 2021-04 Yes [id number] 4mg Take 1 U nivers 4 mg 0-20 tablet by ity of disintegrat 00:00: mouth [place] ing tablet 00 every 8 Medica l (eight) Branch hours as needed for Nausea and Vomiting (N/V). ondansetron 2021-04 Yes [id number] 4mg Take 1 U nivers 4 mg 0-20 tablet by [facility] of disintegrat 00:00: mouth [place] ing tablet 00 every 8 Medica l (eight) Branch hours as needed for Nausea and Vomiting (N/V). ondansetron 2021-04 Yes [id number] 4mg Take 1 U nivers 4 mg 0-20 tablet by [facility] of disintegrat 00:00: mouth [place] ing tablet 00 every 8 Medica l (eight) Branch hours as needed for Nausea and Vomiting (N/V). ondansetron 2021-04 Yes [id number] 4mg Take 1 U nivers 4 mg 0-20 tablet by [facility] of disintegrat 00:00: mouth [place] ing tablet 00 every 8 Medica l (eight) Branch hours as needed for Nausea and Vomiting (N/V). ondansetron 2021-04 Yes [id number] 4mg Take 1 U nivers 4 mg 0-20 tablet by [facility] of disintegrat 00:00: mouth [place] ing tablet 00 every 8 Medica l (eight) Branch hours as needed for Nausea and Vomiting (N/V). ondansetron 2021-04 Yes [id number] 4mg Take 1 [facility] nivers 4 mg 0-20 tablet by [facility] of disintegrat 00:00: mouth [place] ing tablet 00 every 8 Medica l (eight) Branch hours as needed for Nausea and Vomiting (N/V). ondansetron 2021-04 Yes [id number] 4mg Take 1 U nivers 4 mg 0-20 tablet by [facility]y of disintegrat 00:00: mouth [place] ing tablet 00 every 8 Medica l (eight) Branch hours as needed for Nausea and Vomiting (N/V). ondansetron 2021-04 Yes [id number] 4mg Take 1 U nivers 4 mg 0-20 tablet by [facility] of disintegrat 00:00: mouth [place] ing tablet 00 every 8 Medica l (eight) Branch hours as needed for Nausea and Vomiting (N/V). ondansetron 2021-04 Yes [id number] 4mg Take 1 U nivers 4 mg 0-20 tablet by ity of disintegrat 00:00: mouth [place] ing tablet 00 every 8 Medica l (eight) Branch hours as needed for Nausea and Vomiting (N/V). ondansetron 2021-04 Yes [id number] 4mg Take 1 U nivers 4 mg 0-20 tablet by [facility] of disintegrat 00:00: mouth [place] ing tablet 00 every 8 Medica l (eight) Branch hours as needed for Nausea and Vomiting (N/V). ondansetron 2021-04 Yes [id number] 4mg Take 1 [facility] nivers 4 mg 0-20 tablet by ity of disintegrat 00:00: mouth [place] ing tablet 00 every 8 Medica l (eight) Branch hours as needed for Nausea and Vomiting (N/V). ondansetron 2021-04 Yes [id number] 4mg Take 1 U nivers 4 mg 0-20 tablet by [facility] of disintegrat 00:00: mouth [place] ing tablet 00 every 8 Medica l (eight) Branch hours as needed for Nausea and Vomiting (N/V). ondansetron 2021-04 Yes [id number] 4mg Take 1 [facility] nivers 4 mg 0-20 tablet by [facility] of disintegrat 00:00: mouth [place] ing tablet 00 every 8 Medica l (eight) Branch hours as needed for Nausea and Vomiting (N/V). ondansetron 2021-04 Yes [id number] 4mg Take 1 [facility] nivers 4 mg 0-20 tablet by [facility] of disintegrat 00:00: mouth [place] ing tablet 00 every 8 Medica l (eight) Branch hours as needed for Nausea and Vomiting (N/V). ondansetron 2021-04 Yes [id number] 4mg Take 1 [facility] nivers 4 mg 0-20 tablet by [facility] of disintegrat 00:00: mouth [place] ing tablet 00 every 8 Medica l (eight) Branch hours as needed for Nausea and Vomiting (N/V). ondansetron 2021-04 Yes [id number] 4mg Take 1 [facility] nivers 4 mg 0-20 tablet by [facility]y of disintegrat 00:00: mouth [place] ing tablet 00 every 8 Medica l (eight) Branch hours as needed for Nausea and Vomiting (N/V). ondansetron 2021-04 Yes [id number] 4mg Take 1 [facility] nivers 4 mg 0-20 tablet by ity of disintegrat 00:00: mouth [place] ing tablet 00 every 8 Medica l (eight) Branch hours as needed for Nausea and Vomiting (N/V). ondansetron 2021-04 Yes [id number] 4mg Take 1 [facility] nivers 4 mg 0-20 tablet by ity of disintegrat 00:00: mouth [place] ing tablet 00 every 8 Medica l (eight) Branch hours as needed for Nausea and Vomiting (N/V). ondansetron 2021-04 Yes [id number] 4mg Take 1 [facility] nivers 4 mg 0-20 tablet by ity of disintegrat 00:00: mouth [place] ing tablet 00 every 8 Medica l (eight) Branch hours as needed for Nausea and Vomiting (N/V). ondansetron 2021-04 Yes [id number] 4mg Take 1 [facility] nivers 4 mg 0-20 tablet by ity of disintegrat 00:00: mouth [place] ing tablet 00 every 8 Medica l (eight) Branch hours as needed for Nausea and Vomiting (N/V). ondansetron 2021-04 Yes [id number] 4mg Take 1 [facility] nivers 4 mg 0-20 tablet by [facility]y of disintegrat 00:00: mouth [place] ing tablet 00 every 8 Medica l (eight) Branch hours as needed for Nausea and Vomiting (N/V). ondansetron 2021-04 Yes [id number] 4mg Take 1 [facility] nivers 4 mg 0-20 tablet by [facility]y of disintegrat 00:00: mouth [place] ing tablet 00 every 8 Medica l (eight) Branch hours as needed for Nausea and Vomiting (N/V). ondansetron 2021-04 Yes [id number] 4mg Take 1 [facility] nivers 4 mg 0-20 tablet by [facility]y of disintegrat 00:00: mouth [place] ing tablet 00 every 8 Medica l (eight) Branch hours as needed for Nausea and Vomiting (N/V). ondansetron 2021-04 Yes [id number] 4mg Take 1 U nivers 4 mg 0-20 tablet by [facility]y of disintegrat 00:00: mouth [place] ing tablet 00 every 8 Medica l (eight) Branch hours as needed for Nausea and Vomiting (N/V). ondansetron 2021-04 Yes [id number] 4mg Take 1 [facility] nivers 4 mg 0-20 tablet by ity of disintegrat 00:00: mouth [place] ing tablet 00 every 8 Medica l (eight) Branch hours as needed for Nausea and Vomiting (N/V). ondansetron 2021-04 Yes [id number] 4mg Take 1 U nivers 4 mg 0-20 tablet by ity of disintegrat 00:00: mouth [place] ing tablet 00 every 8 Medica l (eight) Branch hours as needed for Nausea and Vomiting (N/V). ondansetron 2021-04 Yes [id number] 4mg Take 1 [facility] nivers 4 mg 0-20 tablet by [facility]y of disintegrat 00:00: mouth [place] ing tablet 00 every 8 Medica l (eight) Branch hours as needed for Nausea and Vomiting (N/V). ondansetron 2021-04 Yes [id number] 4mg Take 1 U nivers 4 mg 0-20 tablet by ity of disintegrat 00:00: mouth [place] ing tablet 00 every 8 Medica l (eight) Branch hours as needed for Nausea and Vomiting (N/V). LOSARTAN-HY 2021-04 Yes [id number] TAKE ONE [facility] DROCHLOROTH 0-19 (1) ity of IAZIDE 00:00: TABLET(S) [place] 50-12.5 mg 00 BY MOUTH Medic al per tablet ONCE A Branch DAY. LOSARTAN-HY 2021-04 Yes [id number] TAKE ONE [facility] DROCHLOROTH 0-19 (1) ity of IAZIDE 00:00: TABLET(S) [place] 50-12.5 mg 00 BY MOUTH Medic al per tablet ONCE A Branch DAY. LOSARTAN-HY 2021-04 Yes [id number] TAKE ONE [facility] DROCHLOROTH 0-19 (1) ity of IAZIDE 00:00: TABLET(S) [place] 50-12.5 mg 00 BY MOUTH Medic al per tablet ONCE A Branch DAY. LOSARTAN-HY 2021-04 Yes [id number] TAKE ONE [facility] DROCHLOROTH 0-19 (1) ity of IAZIDE 00:00: TABLET(S) [place] 50-12.5 mg 00 BY MOUTH Medic al per tablet ONCE A Branch DAY. LOSARTAN-HY 2021-04 Yes [id number] TAKE ONE [facility] DROCHLOROTH 0-19 (1) ity of IAZIDE 00:00: TABLET(S) [place] 50-12.5 mg 00 BY MOUTH Medic al per tablet ONCE A Branch DAY. LOSARTAN-HY 2021-04 Yes [id number] TAKE ONE [facility] DROCHLOROTH 0-19 (1) ity of IAZIDE 00:00: TABLET(S) [place] 50-12.5 mg 00 BY MOUTH Medic al per tablet ONCE A Branch DAY. LOSARTAN-HY 2021-04- No [id number] TAKE ONE [facility] DROCHLOROTH 03-30 (1) ity of IAZIDE 00:00: 00:00 TABLET(S) [place] 50-12.5 mg 00 :00 BY MOUTH Medic al per tablet ONCE A Branch DAY. meloxicam 2021-04 7.5mg Take 7.5 [facility] [place] 7.5 mg 0-13 10-13 mg by ity of tablet 16:54: 00:00 mouth in [place] 23 :00 the Medical morning. Branch meloxicam 2021-04 No 7.5mg Take 7.5 [facility] [place] 7.5 mg 0-13 10-13 mg by ity of tablet 16:54: 00:00 mouth in [place] 23 :00 the Medical morning. Branch amitriptyli 2021-04 Yes [id number] 10mg Take 1 [facility] ne 10 mg 0-13 103 tablet by ity of tablet 00:00: mouth at [place] 00 bedtime. Medical Branch meloxicam 2021-04 Yes [id number] 7.5mg Take 1 [facility] 7.5 mg 0-13 103 tablet by ity of tablet 00:00: mouth in [place] 00 the Medical morning. Branch doxycycline 2021-04 Yes [id number] 100mg Take 1 [facility] hyclate 100 0-13 tablet by [facility] of mg tablet 00:00: mouth [place] 00 the Medical morning Branch and 1 tablet in the evening. FLUoxetine 2021-04 Yes [id number] 20mg Take 1 U nivers 20 mg 0-13 capsule by ity of capsule 00:00: mouth in [place] 00 the Medical morning. Branch tiZANidine 2021-04 Yes [id number] 2mg Take 1 [facility] 2 mg tablet 0-13 103 tablet by ity of 00:00: mouth at [place] 00 bedtime as Medical needed Branch (muscle spasms). tirzepatide 2021-04 Yes [id number] 2.5mg inject 2.5 [facility] (MOUNJARO) 0-13 mg under ity o f 2.5 mg/0.5 00:00: the skin [place] as mL PnIj 00 weekly. Medical Start Branch 2.5mg SC qWeek x 4 Weeks, then increase to 5 mg SC qWeek amitriptyli 2021-04 Yes [id number] 10mg Take 1 [facility] ne 10 mg 0-13 103 tablet by ity of tablet 00:00: mouth at [place] 00 bedtime. Medical Branch meloxicam 2021-04 Yes [id number] 7.5mg Take 1 [facility] 7.5 mg 0-13 103 tablet by ity of tablet 00:00: mouth in [place] 00 the Medical morning. Branch doxycycline 2021-04 Yes [id number] 100mg Take 1 [facility] hyclate 100 0-13 tablet by [facility] of mg tablet 00:00: mouth [place] 00 the Medical morning Branch and 1 tablet in the evening. FLUoxetine 2021-04 Yes [id number] 20mg Take 1 U nivers 20 mg 0-13 capsule by ity of capsule 00:00: mouth in [place] 00 the Medical morning. Branch tiZANidine 2021-04 Yes [id number] 2mg Take 1 [facility] 2 mg tablet 0-13 103 tablet by ity of 00:00: mouth at [place] 00 bedtime as Medical needed Branch (muscle spasms). tirzepatide 2021-04 Yes [id number] 2.5mg inject 2.5 [facility] (MOUNJARO) 0-13 mg under ity o f 2.5 mg/0.5 00:00: the skin [place] as mL PnIj 00 weekly. Medical Start Branch 2.5mg SC qWeek x 4 Weeks, then increase to 5 mg SC qWeek amitriptyli 2021-04 Yes [id number] 10mg Take 1 [facility] ne 10 mg 0-13 103 tablet by ity of tablet 00:00: mouth at [place] 00 bedtime. Medical Branch meloxicam 2021-04 Yes [id number] 7.5mg Take 1 [facility] 7.5 mg 0-13 103 tablet by ity of tablet 00:00: mouth in [place] 00 the Medical morning. Branch doxycycline 2021-04 Yes [id number] 100mg Take 1 [facility] hyclate 100 0-13 tablet by [facility] of mg tablet 00:00: mouth [place] 00 the Medical morning Branch and 1 tablet in the evening. FLUoxetine 2021-04 Yes [id number] 20mg Take 1 U nivers 20 mg 0-13 capsule by ity of capsule 00:00: mouth in [place] 00 the Medical morning. Branch tiZANidine 2021-04 Yes [id number] 2mg Take 1 [facility] 2 mg tablet 0-13 103 tablet by ity of 00:00: mouth at [place] 00 bedtime as Medical needed Branch (muscle spasms). tirzepatide 2021-04 Yes [id number] 2.5mg inject 2.5 [facility] (MOUNJARO) 0-13 mg under ity o f 2.5 mg/0.5 00:00: the skin [place] mL PnIj 00 weekly. Medical Start Branch 2.5mg SC qWeek x 4 Weeks, then increase to 5 mg SC qWeek amitriptyli 2021-04 Yes [id number] 10mg Take 1 [facility] ne 10 mg 0-13 103 tablet by ity of tablet 00:00: mouth at [place] [address] bedtime. Medical Branch meloxicam 2021-04 Yes [id number] 7.5mg Take 1 [facility] 7.5 mg 0-13 103 tablet by ity of tablet 00:00: mouth in [place] 00 the Medical morning. Branch doxycycline 2021-04 Yes [id number] 100mg Take 1 [facility] hyclate 100 0-13 tablet by ity of mg tablet 00:00: mouth in [facility] 00 the Medical morning Branch and 1 tablet in the evening. FLUoxetine 2021-04 Yes [id number] 20mg Take 1 U nivers 20 mg 0-13 capsule by ity of capsule 00:00: mouth in [place] 00 the Medical morning. Branch tiZANidine 2021-04 Yes [id number] 2mg Take 1 [facility] 2 mg tablet 0-13 103 tablet by ity of 00:00: mouth at [place] 00 bedtime as Medical needed Branch (muscle spasms). tirzepatide 2021-04 Yes [id number] 2.5mg inject 2.5 [facility] (MOUNJARO) 0-13 mg under ity o f 2.5 mg/0.5 00:00: the skin [place] mL PnIj 00 weekly. Medical Start Branch 2.5mg SC qWeek x 4 Weeks, then increase to 5 mg SC qWeek amitriptyli 2021-04 Yes [id number] 10mg Take 1 [facility] ne 10 mg 0-13 103 tablet by ity of tablet 00:00: mouth at [place] 00 bedtime. Medical Branch meloxicam 2021-04 Yes [id number] 7.5mg Take 1 [facility] 7.5 mg 0-13 103 tablet by ity of tablet 00:00: mouth in [place] 00 the Medical morning. Branch doxycycline 2021-04 Yes [id number] 100mg Take 1 [facility] hyclate 100 0-13 tablet by ity of mg tablet 00:00: mouth [place] 00 the Medical morning Branch and 1 tablet in the evening. FLUoxetine 2021-04 Yes [id number] 20mg Take 1 U nivers 20 mg 0-13 capsule by ity of capsule 00:00: mouth in [place] 00 the Medical morning. Branch tiZANidine 2021-04 Yes [id number] 2mg Take 1 [facility] 2 mg tablet 0-13 103 tablet by ity of 00:00: mouth at [place] 00 bedtime as Medical needed Branch (muscle spasms). tirzepatide 2021-04 Yes [id number] 2.5mg inject 2.5 [facility] (MOUNJARO) 0-13 mg under ity o f 2.5 mg/0.5 00:00: the skin [place] mL PnIj 00 weekly. Medical Start Branch 2.5mg SC qWeek x 4 Weeks, then increase to 5 mg SC qWeek amitriptyli 2021-04 Yes [id number] 10mg Take 1 [facility] ne 10 mg 0-13 103 tablet by ity of tablet 00:00: mouth at [place] 00 bedtime. Medical Branch meloxicam 2021-04 Yes [id number] 7.5mg Take 1 [facility] 7.5 mg 0-13 103 tablet by ity of tablet 00:00: mouth in [place] 00 the Medical morning. Branch doxycycline 2021-04 Yes [id number] 100mg Take 1 [facility] hyclate 100 0-13 tablet by ity of mg tablet 00:00: mouth [place] 00 the Medical morning Branch and 1 tablet in the evening. FLUoxetine 2021-04 Yes [id number] 20mg Take 1 U nivers 20 mg 0-13 capsule by ity of capsule 00:00: mouth in [place] 00 the Medical morning. Branch tiZANidine 2021-04 Yes [id number] 2mg Take 1 [facility] 2 mg tablet 0-13 103 tablet by ity of 00:00: mouth at [place] 00 bedtime as Medical needed Branch (muscle spasms). tirzepatide 2021-04 Yes [id number] 2.5mg inject 2.5 [facility] (MOUNJARO) 0-13 mg under ity o f 2.5 mg/0.5 00:00: the skin [place] mL PnIj 00 weekly. Medical Start Branch 2.5mg SC qWeek x 4 Weeks, then increase to 5 mg SC qWeek amitriptyli 2021-04 Yes [id number] 10mg Take 1 [facility] ne 10 mg 0-13 103 tablet by ity of tablet 00:00: mouth at [place] 00 bedtime. Medical Branch meloxicam 2021-04 Yes [id number] 7.5mg Take 1 [facility] 7.5 mg 0-13 103 tablet by ity of tablet 00:00: mouth in [place] 00 the Medical morning. Branch doxycycline 2021-04 Yes [id number] 100mg Take 1 [facility] hyclate 100 0-13 tablet by ity of mg tablet 00:00: mouth in [facility] 00 the Medical morning Branch and 1 tablet in the evening. FLUoxetine 2021-04 Yes [id number] 20mg Take 1 U nivers 20 mg 0-13 capsule by ity of capsule 00:00: mouth in [place] 00 the Medical morning. Branch tiZANidine 2021-04 Yes [id number] 2mg Take 1 [facility] 2 mg tablet 0-13 103 tablet by ity of 00:00: mouth at [place] 00 bedtime as Medical needed Branch (muscle spasms). tirzepatide 2021-04 Yes [id number] 2.5mg inject 2.5 [facility] (MOUNJARO) 0-13 mg under ity o f 2.5 mg/0.5 00:00: the skin [place] mL PnIj 00 weekly. Medical Start Branch 2.5mg SC qWeek x 4 Weeks, then increase to 5 mg SC qWeek amitriptyli 2021-04 Yes [id number] 10mg Take 1 [facility] ne 10 mg 0-13 103 tablet by ity of tablet 00:00: mouth at [place] 00 bedtime. Medical Branch meloxicam 2021-04 Yes [id number] 7.5mg Take 1 [facility] 7.5 mg 0-13 103 tablet by ity of tablet 00:00: mouth in [place] 00 the Medical morning. Branch doxycycline 2021-04 Yes [id number] 100mg Take 1 [facility] hyclate 100 0-13 tablet by ity of mg tablet 00:00: mouth [place] 00 the Medical morning Branch and 1 tablet in the evening. FLUoxetine 2021-04 Yes [id number] 20mg Take 1 U nivers 20 mg 0-13 capsule by ity of capsule 00:00: mouth in [place] 00 the Medical morning. Branch tiZANidine 2021-04 Yes [id number] 2mg Take 1 [facility] 2 mg tablet 0-13 103 tablet by ity of 00:00: mouth at [place] 00 bedtime as Medical needed Branch (muscle spasms). tirzepatide 2021-04 Yes [id number] 2.5mg inject 2.5 [facility] (MOUNJARO) 0-13 mg under ity o f 2.5 mg/0.5 00:00: the skin [place] mL PnIj 00 weekly. Medical Start Branch 2.5mg SC qWeek x 4 Weeks, then increase to 5 mg SC qWeek amitriptyli 2021-04 Yes [id number] 10mg Take 1 [facility] ne 10 mg 0-13 103 tablet by ity of tablet 00:00: mouth at [place] 00 bedtime. Medical Branch meloxicam 2021-04 Yes [id number] 7.5mg Take 1 [facility] 7.5 mg 0-13 103 tablet by ity of tablet 00:00: mouth in [place] 00 the Medical morning. Branch doxycycline 2021-04 Yes [id number] 100mg Take 1 [facility] hyclate 100 0-13 tablet by ity [facility] mg tablet 00:00: [facility] and 1 tablet in the evening. FLUoxetine 2021-04 Yes [id number] 20mg Take 1 U nivers 20 mg 0-13 capsule by ity of capsule 00:00: mouth in [place] 00 the Medical morning. Branch tiZANidine 2021-04 Yes [id number] 2mg Take 1 [facility] 2 mg tablet 0-13 103 tablet by ity of 00:00: mouth at [place] 00 bedtime as Medical needed Branch (muscle spasms). tirzepatide 2021-04 Yes [id number] 2.5mg inject 2.5 [facility] (MOUNJARO) 0-13 mg under ity o f 2.5 mg/0.5 00:00: the skin [place] as mL PnIj 00 weekly. Medical Start Branch 2.5mg SC qWeek x 4 Weeks, then increase to 5 mg SC qWeek amitriptyli 2021-04 Yes [id number] 10mg Take 1 [facility] ne 10 mg 0-13 103 tablet by ity of tablet 00:00: mouth at [place] 00 bedtime. Medical Branch meloxicam 2021-04 Yes [id number] 7.5mg Take 1 [facility] 7.5 mg 0-13 103 tablet by ity of tablet 00:00: mouth in [place] 00 the Medical morning. Branch doxycycline 2021-04 Yes [id number] 100mg Take 1 [facility] hyclate 100 0-13 tablet by ity of mg tablet 00:00: mouth [place] 00 the Medical morning Branch and 1 tablet in the evening. FLUoxetine 2021-04 Yes [id number] 20mg Take 1 U nivers 20 mg 0-13 capsule by ity of capsule 00:00: mouth in [place] 00 the Medical morning. Branch tiZANidine 2021-04 Yes [id number] 2mg Take 1 [facility] 2 mg tablet 0-13 103 tablet by ity of 00:00: mouth at [place] 00 bedtime as Medical needed Branch (muscle spasms). tirzepatide 2021-04 Yes [id number] 2.5mg inject 2.5 [facility] (MOUNJARO) 0-13 mg under ity o f 2.5 mg/0.5 00:00: the skin [place] as mL PnIj 00 weekly. Medical Start Branch 2.5mg SC qWeek x 4 Weeks, then increase to 5 mg SC qWeek amitriptyli 2021-04 Yes [id number] 10mg Take 1 [facility] ne 10 mg 0-13 103 tablet by ity of tablet 00:00: mouth at [place] 00 bedtime. Medical Branch meloxicam 2021-04 Yes [id number] 7.5mg Take 1 [facility] 7.5 mg 0-13 103 tablet by ity of tablet 00:00: mouth in [place] 00 the Medical morning. Branch doxycycline 2021-04 Yes [id number] 100mg Take 1 [facility] hyclate 100 0-13 tablet by ity of mg tablet 00:00: mouth [place] 00 the Medical morning Branch and 1 tablet in the evening. FLUoxetine 2021-04 Yes [id number] 20mg Take 1 U nivers 20 mg 0-13 capsule by ity of capsule 00:00: mouth in [place] 00 the Medical morning. Branch tiZANidine 2021-04 Yes [id number] 2mg Take 1 [facility] 2 mg tablet 0-13 103 tablet by ity of 00:00: mouth at [place] 00 bedtime as Medical needed Branch (muscle spasms). amitriptyli 2021-04 Yes [id number] 10mg Take 1 [facility] ne 10 mg 0-13 103 tablet by ity of tablet 00:00: mouth at [place] 00 bedtime. Medical Branch meloxicam 2021-04 Yes [id number] 7.5mg Take 1 [facility] 7.5 mg 0-13 103 tablet by ity of tablet 00:00: mouth in [place] 00 the Medical morning. Branch doxycycline 2021-04 Yes [id number] 100mg Take 1 [facility] hyclate 100 0-13 tablet by [facility] of mg tablet 00:00: [facility] [place] and 1 tablet in the evening. FLUoxetine 2021-04 Yes [id number] 20mg Take 1 U nivers 20 mg 0-13 capsule by ity of capsule 00:00: mouth in [place] 00 the Medical morning. Branch tiZANidine 2021-04 Yes [id number] 2mg Take 1 [facility] 2 mg tablet 0-13 103 tablet by ity of 00:00: mouth at [place] 00 bedtime as Medical needed Branch (muscle spasms). amitriptyli 2021-04 Yes [id number] 10mg Take 1 [facility] ne 10 mg 0-13 103 tablet by ity of tablet 00:00: mouth at [place] 00 bedtime. Medical Branch meloxicam 2021-04 Yes [id number] 7.5mg Take 1 [facility] 7.5 mg 0-13 103 tablet by ity of tablet 00:00: mouth in [place] 00 the Medical morning. Branch doxycycline 2021-04 Yes [id number] 100mg Take 1 [facility] hyclate 100 0-13 tablet by ity of mg tablet 00:00: mouth [place] 00 the Medical morning Branch and 1 tablet in the evening. FLUoxetine 2021-04 Yes [id number] 20mg Take 1 U nivers 20 mg 0-13 capsule by ity of capsule 00:00: mouth in [place] 00 the Medical morning. Branch tiZANidine 2021-04 Yes [id number] 2mg Take 1 [facility] 2 mg tablet 0-13 103 tablet by ity of 00:00: mouth at [place] 00 bedtime as Medical needed Branch (muscle spasms). amitriptyli 2021-04 Yes [id number] 10mg Take 1 [facility] ne 10 mg 0-13 103 tablet by ity of tablet 00:00: mouth at [place] 00 bedtime. Medical Branch meloxicam 2021-04 Yes [id number] 7.5mg Take 1 [facility] 7.5 mg 0-13 103 tablet by ity of tablet 00:00: mouth in [place] 00 the Medical morning. Branch doxycycline 2021-04 Yes [id number] 100mg Take 1 [facility] hyclate 100 0-13 tablet by ity of mg tablet 00:00: mouth [place] 00 the Medical morning Branch and 1 tablet in the evening. FLUoxetine 2021-04 Yes [id number] 20mg Take 1 U nivers 20 mg 0-13 capsule by ity of capsule 00:00: mouth in [place] 00 the Medical morning. Branch tiZANidine 2021-04 Yes [id number] 2mg Take 1 [facility] 2 mg tablet 0-13 103 tablet by ity of 00:00: mouth at [place] 00 bedtime as Medical needed Branch (muscle spasms). amitriptyli 2021-04 Yes [id number] 10mg Take 1 [facility] ne 10 mg 0-13 103 tablet by ity of tablet 00:00: mouth at [place] 00 bedtime. Medical Branch meloxicam 2021-04 Yes [id number] 7.5mg Take 1 [facility] 7.5 mg 0-13 103 tablet by ity of tablet 00:00: mouth in [place] 00 the Medical morning. Branch doxycycline 2021-04 Yes [id number] 100mg Take 1 [facility] hyclate 100 0-13 tablet by ity of mg tablet 00:00: mouth [place] 00 the Medical morning Branch and 1 tablet in the evening. FLUoxetine 2021-04 Yes [id number] 20mg Take 1 U nivers 20 mg 0-13 capsule by ity of capsule 00:00: mouth in [place] 00 the Medical morning. Branch tiZANidine 2021-04 Yes [id number] 2mg Take 1 [facility] 2 mg tablet 0-13 103 tablet by ity of 00:00: mouth at [place] 00 bedtime as Medical needed Branch (muscle spasms). amitriptyli 2021-04 Yes [id number] 10mg Take 1 [facility] ne 10 mg 0-13 103 tablet by ity of tablet 00:00: mouth at [place] 00 bedtime. Medical Branch meloxicam 2021-04 Yes [id number] 7.5mg Take 1 [facility] 7.5 mg 0-13 103 tablet by ity of tablet 00:00: mouth in [place] 00 the Medical morning. Branch doxycycline 2021-04 Yes [id number] 100mg Take 1 [facility] hyclate 100 0-13 tablet by ity of mg tablet 00:00: mouth in [place] 00 the Medical morning Branch and 1 tablet in the evening. FLUoxetine 2021-04 Yes [id number] 20mg Take 1 U nivers 20 mg 0-13 capsule by ity of capsule 00:00: mouth in [place] 00 the Medical morning. Branch tiZANidine 2021-04 Yes [id number] 2mg Take 1 [facility] 2 mg tablet 0-13 103 tablet by ity of 00:00: mouth at [place] 00 bedtime as Medical needed Branch (muscle spasms). amitriptyli 2021-04 Yes [id number] 10mg Take 1 [facility] ne 10 mg 0-13 103 tablet by ity of tablet 00:00: mouth at [place] 00 bedtime. Medical Branch meloxicam 2021-04 Yes [id number] 7.5mg Take 1 [facility] 7.5 mg 0-13 103 tablet by ity of tablet 00:00: mouth in [place] 00 the Medical morning. Branch doxycycline 2021-04 Yes [id number] 100mg Take 1 [facility] hyclate 100 0-13 tablet by [facility] mg tablet 00:00: mouth [place] 00 the Medical morning Branch and 1 tablet in the evening. FLUoxetine 2021-04 Yes [id number] 20mg Take 1 [facility] nivers 20 mg 0-13 capsule by ity of capsule 00:00: mouth in [place] 00 the Medical morning. Branch tiZANidine 2021-04 Yes [id number] 2mg Take 1 [facility] 2 mg tablet 0-13 103 tablet by ity of 00:00: mouth at [place] 00 bedtime as Medical needed Branch (muscle spasms). amitriptyli 2021-04 Yes [id number] 10mg Take 1 [facility] ne 10 mg 0-13 103 tablet by it[facility] of tablet 00:00: mouth at [place] 00 bedtime. Medical Branch meloxicam 2021-04 Yes [id number] 7.5mg Take 1 [facility] 7.5 mg 0-13 103 tablet by ity of tablet 00:00: mouth in [place] 00 the Medical morning. Branch doxycycline 2021-04 Yes [id number] 100mg Take 1 [facility] hyclate 100 0-13 tablet by it[facility] of mg tablet 00:00: mouth [place] 00 the Medical morning Branch and 1 tablet in the evening. FLUoxetine 2021-04 Yes [id number] 20mg Take 1 [facility] nivers 20 mg 0-13 capsule by ity of capsule 00:00: mouth in [place] 00 the Medical morning. Branch tiZANidine 2021-04 Yes [id number] 2mg Take 1 [facility] 2 mg tablet 0-13 103 tablet by ity of 00:00: mouth at [place] 00 bedtime as Medical needed Branch (muscle spasms). amitriptyli 2021-04 Yes [id number] 10mg Take 1 [facility] ne 10 mg 0-13 103 tablet by it[facility] of tablet 00:00: mouth at [place] 00 bedtime. Medical Branch meloxicam 2021-04 Yes [id number] 7.5mg Take 1 [facility] 7.5 mg 0-13 103 tablet by ity of tablet 00:00: mouth in [place] 00 the Medical morning. Branch doxycycline 2021-04 Yes [id number] 100mg Take 1 [facility] hyclate 100 0-13 tablet by ity of mg tablet 00:00: mouth in [facility] 00 the Medical morning Branch and 1 tablet in the evening. FLUoxetine 2021-04 Yes [id number] 20mg Take 1 [facility] nivers 20 mg 0-13 capsule by ity of capsule 00:00: mouth in [place] 00 the Medical morning. Branch tiZANidine 2021-04 Yes [id number] 2mg Take 1 [facility] 2 mg tablet 0-13 103 tablet by ity of 00:00: mouth at [place] 00 bedtime as Medical needed Branch (muscle spasms). amitriptyli 2021-04 Yes [id number] 10mg Take 1 [facility] ne 10 mg 0-13 103 tablet by ity of tablet 00:00: mouth at [place] 00 bedtime. Medical Branch meloxicam 2021-04 Yes [id number] 7.5mg Take 1 [facility] 7.5 mg 0-13 103 tablet by ity of tablet 00:00: mouth in [place] 00 the Medical morning. Branch doxycycline 2021-04 Yes [id number] 100mg Take 1 [facility] hyclate 100 0-13 tablet by ity of mg tablet 00:00: mouth in [facility] 00 the Medical morning Branch and 1 tablet in the evening. FLUoxetine 2021-04 Yes [id number] 20mg Take 1 [facility] nivers 20 mg 0-13 capsule by ity of capsule 00:00: mouth in [place] 00 the Medical morning. Branch tiZANidine 2021-04 Yes [id number] 2mg Take 1 [facility] 2 mg tablet 0-13 103 tablet by ity of 00:00: mouth at [place] 00 bedtime as Medical needed Branch (muscle spasms). amitriptyli 2021-04 Yes [id number] 10mg Take 1 [facility] ne 10 mg 0-13 103 tablet by ity of tablet 00:00: mouth at [place] 00 bedtime. Medical Branch meloxicam 2021-04 Yes [id number] 7.5mg Take 1 [facility] 7.5 mg 0-13 103 tablet by ity of tablet 00:00: mouth in [place] 00 the Medical morning. Branch doxycycline 2021-04 Yes [id number] 100mg Take 1 [facility] hyclate 100 0-13 tablet by ity of mg tablet 00:00: mouth in [facility] 00 the Medical morning Branch and 1 tablet in the evening. FLUoxetine 2021-04 Yes [id number] 20mg Take 1 [facility] nivers 20 mg 0-13 capsule by ity of capsule 00:00: mouth in [place] 00 the Medical morning. Branch tiZANidine 2021-04 Yes [id number] 2mg Take 1 [facility] 2 mg tablet 0-13 103 tablet by ity of 00:00: mouth at [place] 00 bedtime as Medical needed Branch (muscle spasms). amitriptyli 2021-04 Yes [id number] 10mg Take 1 [facility] ne 10 mg 0-13 103 tablet by ity of tablet 00:00: mouth at [place] 00 bedtime. Medical Branch meloxicam 2021-04 Yes [id number] 7.5mg Take 1 [facility] 7.5 mg 0-13 103 tablet by ity of tablet 00:00: mouth in [place] 00 the Medical morning. Branch doxycycline 2021-04 Yes [id number] 100mg Take 1 [facility] hyclate 100 0-13 tablet by ity of mg tablet 00:00: mouth [place] 00 the Medical morning Branch and 1 tablet in the evening. FLUoxetine 2021-04 Yes [id number] 20mg Take 1 [facility] nivers 20 mg 0-13 capsule by ity of capsule 00:00: mouth in [place] 00 the Medical morning. Branch tiZANidine 2021-04 Yes [id number] 2mg Take 1 [facility] 2 mg tablet 0-13 103 tablet by ity of 00:00: mouth at [place] 00 bedtime as Medical needed Branch (muscle spasms). amitriptyli 2021-04 Yes [id number] 10mg Take 1 [facility] ne 10 mg 0-13 103 tablet by ity of tablet 00:00: mouth at [place] 00 bedtime. Medical Branch meloxicam 2021-04 Yes [id number] 7.5mg Take 1 [facility] 7.5 mg 0-13 103 tablet by ity of tablet 00:00: mouth in [place] 00 the Medical morning. Branch doxycycline 2021-04 Yes [id number] 100mg Take 1 [facility] hyclate 100 0-13 tablet by ity of mg tablet 00:00: mouth in [facility] 00 the Medical morning Branch and 1 tablet in the evening. FLUoxetine 2021-04 Yes [id number] 20mg Take 1 [facility] nivers 20 mg 0-13 capsule by ity of capsule 00:00: mouth in [place] 00 the Medical morning. Branch tiZANidine 2021-04 Yes [id number] 2mg Take 1 [facility] 2 mg tablet 0-13 103 tablet by ity of 00:00: mouth at [place] 00 bedtime as Medical needed Branch (muscle spasms). amitriptyli 2021-04 Yes [id number] 10mg Take 1 [facility] ne 10 mg 0-13 103 tablet by ity of tablet 00:00: mouth at [place] 00 bedtime. Medical Branch meloxicam 2021-04 Yes [id number] 7.5mg Take 1 [facility] 7.5 mg 0-13 103 tablet by ity of tablet 00:00: mouth in [place] 00 the Medical morning. Branch doxycycline 2021-04 Yes [id number] 100mg Take 1 [facility] hyclate 100 0-13 tablet by ity of mg tablet 00:00: mouth [place] 00 the Medical morning Branch and 1 tablet in the evening. FLUoxetine 2021-04 Yes [id number] 20mg Take 1 [facility] nivers 20 mg 0-13 capsule by ity of capsule 00:00: mouth in [place] 00 the Medical morning. Branch tiZANidine 2021-04 Yes [id number] 2mg Take 1 [facility] 2 mg tablet 0-13 103 tablet by ity of 00:00: mouth at [place] 00 bedtime as Medical needed Branch (muscle spasms). amitriptyli 2021-04 Yes [id number] 10mg Take 1 [facility] ne 10 mg 0-13 103 tablet by ity of tablet 00:00: mouth at [place] 00 bedtime. Medical Branch meloxicam 2021-04 Yes [id number] 7.5mg Take 1 [facility] 7.5 mg 0-13 103 tablet by ity of tablet 00:00: mouth in [place] 00 the Medical morning. Branch doxycycline 2021-04 Yes [id number] 100mg Take 1 [facility] hyclate 100 0-13 tablet by ity of mg tablet 00:00: mouth [place] 00 the Medical morning Branch and 1 tablet in the evening. tiZANidine 2021-04 Yes [id number] 2mg Take 1 [facility] 2 mg tablet 0-13 103 tablet by ity of 00:00: mouth at [place] 00 bedtime as Medical needed Branch (muscle spasms). amitriptyli 2021-04 Yes [id number] 10mg Take 1 [facility] ne 10 mg 0-13 103 tablet by ity of tablet 00:00: mouth at [place] 00 bedtime. Medical Branch meloxicam 2021-04 Yes [id number] 7.5mg Take 1 [facility] 7.5 mg 0-13 103 tablet by ity of tablet 00:00: mouth in [place] 00 the Medical morning. Branch doxycycline 2021-04 Yes [id number] 100mg Take 1 [facility] hyclate 100 0-13 tablet by ity of mg tablet 00:00: mouth in [place] 00 the Medical morning Branch and 1 tablet in the evening. tiZANidine 2021-04 Yes [id number] 2mg Take 1 [facility] 2 mg tablet 0-13 103 tablet by ity of 00:00: mouth at [place] 00 bedtime as Medical needed Branch (muscle spasms). amitriptyli 2021-04 Yes [id number] 10mg Take 1 [facility] ne 10 mg 0-13 103 tablet by ity of tablet 00:00: mouth at [place] 00 bedtime. Medical Branch meloxicam 2021-04 Yes [id number] 7.5mg Take 1 [facility] 7.5 mg 0-13 103 tablet by ity of tablet 00:00: mouth in [place] 00 the Medical morning. Branch doxycycline 2021-04 Yes [id number] 100mg Take 1 [facility] hyclate 100 0-13 tablet by ity of mg tablet 00:00: mouth in [place] 00 the Medical morning Branch and 1 tablet in the evening. tiZANidine 2021-04 Yes [id number] 2mg Take 1 [facility] 2 mg tablet 0-13 103 tablet by ity of 00:00: mouth at [place] 00 bedtime as Medical needed Branch (muscle spasms). amitriptyli 2021-04 Yes [id number] 10mg Take 1 [facility] ne 10 mg 0-13 103 tablet by ity of tablet 00:00: mouth at [place] 00 bedtime. Medical Branch meloxicam 2021-04 Yes [id number] 7.5mg Take 1 [facility] 7.5 mg 0-13 103 tablet by ity of tablet 00:00: mouth in [place] 00 the Medical morning. Branch doxycycline 2021-04 Yes [id number] 100mg Take 1 [facility] hyclate 100 0-13 tablet by ity of mg tablet 00:00: mouth in [place] 00 the Medical morning Branch and 1 tablet in the evening. tiZANidine 2021-04 Yes [id number] 2mg Take 1 [facility] 2 mg tablet 0-13 103 tablet by ity of 00:00: mouth at [place] 00 bedtime as Medical needed Branch (muscle spasms). amitriptyli 2021-04 Yes [id number] 10mg Take 1 [facility] ne 10 mg 0-13 103 tablet by ity of tablet 00:00: mouth at [place] 00 bedtime. Medical Branch meloxicam 2021-04 Yes [id number] 7.5mg Take 1 [facility] 7.5 mg 0-13 103 tablet by ity of tablet 00:00: mouth in [place] 00 the Medical morning. Branch doxycycline 2021-04 Yes [id number] 100mg Take 1 [facility] hyclate 100 0-13 tablet by ity of mg tablet 00:00: mouth in [place] 00 the Medical morning Branch and 1 tablet in the evening. tiZANidine 2021-04 Yes [id number] 2mg Take 1 [facility] 2 mg tablet 0-13 103 tablet by ity of 00:00: mouth at [place] 00 bedtime as Medical needed Branch (muscle spasms). amitriptyli 2021-04 Yes [id number] 10mg Take 1 [facility] ne 10 mg 0-13 103 tablet by ity of tablet 00:00: mouth at [place] 00 bedtime. Medical Branch doxycycline 2021-04 Yes [id number] 100mg Take 1 [facility] hyclate 100 0-13 tablet by ity of mg tablet 00:00: mouth in [place] 00 the Medical morning Branch and 1 tablet in the evening. tiZANidine 2021-04 Yes [id number] 2mg Take 1 [facility] 2 mg tablet 0-13 103 tablet by ity of 00:00: mouth at [place] 00 bedtime as Medical needed Branch (muscle spasms). amitriptyli 2021-04 Yes [id number] 10mg Take 1 [facility] ne 10 mg 0-13 103 tablet by ity of tablet 00:00: mouth at [place] 00 bedtime. Medical Branch doxycycline 2021-04 Yes [id number] 100mg Take 1 [facility] hyclate 100 0-13 tablet by ity of mg tablet 00:00: mouth in [place] 00 the Medical morning Branch and 1 tablet in the evening. tiZANidine 2021-04 Yes [id number] 2mg Take 1 [facility] 2 mg tablet 0-13 103 tablet by ity of 00:00: mouth at [place] 00 bedtime as Medical needed Branch (muscle spasms). amitriptyli 2021-04 Yes [id number] 10mg Take 1 [facility] ne 10 mg 0-13 103 tablet by ity of tablet 00:00: mouth at [place] 00 bedtime. Medical Branch doxycycline 2021-04 Yes [id number] 100mg Take 1 [facility] hyclate 100 0-13 tablet by ity of mg tablet 00:00: mouth in [place] 00 the Medical morning Branch and 1 tablet in the evening. tiZANidine 2021-04 Yes [id number] 2mg Take 1 [facility] 2 mg tablet 0-13 103 tablet by ity of 00:00: mouth at [place] 00 bedtime as Medical needed Branch (muscle spasms). amitriptyli 2021-04 Yes [id number] 10mg Take 1 [facility] ne 10 mg 0-13 103 tablet by ity of tablet 00:00: mouth at [place] 00 bedtime. Medical Branch doxycycline 2021-04 Yes [id number] 100mg Take 1 [facility] hyclate 100 0-13 tablet by ity of mg tablet 00:00: mouth in [place] 00 the Medical morning Branch and 1 tablet in the evening. tiZANidine 2021-04 Yes [id number] 2mg Take 1 [facility] 2 mg tablet 0-13 103 tablet by ity of 00:00: mouth at [place] 00 bedtime as Medical needed Branch (muscle spasms). amitriptyli 2021-04 Yes [id number] 10mg Take 1 [facility] ne 10 mg 0-13 103 tablet by ity of tablet 00:00: mouth at [place] 00 bedtime. Medical Branch doxycycline 2021-04 Yes [id number] 100mg Take 1 [facility] hyclate 100 0-13 tablet by ity of mg tablet 00:00: mouth in [place] 00 the Medical morning Branch and 1 tablet in the evening. tiZANidine 2021-04 Yes [id number] 2mg Take 1 [facility] 2 mg tablet 0-13 103 tablet by ity of 00:00: mouth at [place] 00 bedtime as Medical needed Branch (muscle spasms). amitriptyli 2021-04 Yes [id number] 10mg Take 1 [facility] ne 10 mg 0-13 103 tablet by ity of tablet 00:00: mouth at [place] 00 bedtime. Medical Branch amitriptyli 2021-04 Yes [id number] 10mg Take 1 [facility] ne 10 mg 0-13 103 tablet by ity of tablet 00:00: mouth at [place] 00 bedtime. Medical Branch amitriptyli 2021-04 Yes [id number] 10mg Take 1 [facility] ne 10 mg 0-13 103 tablet by ity of tablet 00:00: mouth at [place] 00 bedtime. Medical Branch amitriptyli 2021-04 Yes [id number] 10mg Take 1 [facility] ne 10 mg 0-13 103 tablet by ity of tablet 00:00: mouth at [place] 00 bedtime. Medical Branch amitriptyli 2021-04 Yes [id number] 10mg Take 1 [facility] ne 10 mg 0-13 103 tablet by ity of tablet 00:00: mouth at [place] 00 bedtime. Medical Branch amitriptyli 2021-04 Yes [id number] 10mg Take 1 [facility] ne 10 mg 0-13 103 tablet by ity of tablet 00:00: mouth at [place] 00 bedtime. Medical Branch amitriptyli 2021-04 Yes [id number] 10mg Take 1 [facility] ne 10 mg 0-13 103 tablet by ity of tablet 00:00: mouth at [place] 00 bedtime. Medical Branch amitriptyli 2021-04 Yes [id number] 10mg Take 1 [facility] ne 10 mg 0-13 103 tablet by ity of tablet 00:00: mouth at [place] bedtime. Medical Branch amitriptyli 2021-04 Yes [id number] 10mg Take 1 [facility] ne 10 mg 0-13 103 tablet by ity of tablet 00:00: mouth at [place] bedtime. Medical Branch amitriptyli 2021-04 Yes [id number] 10mg Take 1 [facility] ne 10 mg 0-13 103 tablet by ity of tablet 00:00: mouth at [place] bedtime. Medical Branch amitriptyli 2021-04 Yes [id number] 10mg Take 1 [facility] ne 10 mg 0-13 103 tablet by ity of tablet 00:00: mouth at [place] bedtime. Medical Branch amitriptyli 2021-04 Yes [id number] 10mg Take 1 [facility] ne 10 mg 0-13 103 tablet by ity of tablet 00:00: mouth at [place] bedtime. Medical Branch amitriptyli 2021-04 Yes [id number] 10mg Take 1 [facility] ne 10 mg 0-13 103 tablet by ity of tablet 00:00: mouth at [place] [address] bedtime. Medical Branch amitriptyli 2021-04 Yes [id number] 10mg Take 1 [facility] ne 10 mg 0-13 103 tablet by ity of tablet 00:00: mouth at [place] bedtime. Medical Branch amitriptyli 2021-04 Yes [id number] 10mg Take 1 [facility] ne 10 mg 0-13 103 tablet by ity of tablet 00:00: mouth at [place] 00 bedtime. Medical Branch amitriptyli 2021-04 Yes [id number] 10mg Take 1 [facility] ne 10 mg 0-13 103 tablet by ity of tablet 00:00: mouth at [place] [address] bedtime. Medical Branch amitriptyli 2021-04 Yes [id number] 10mg Take 1 [facility] ne 10 mg 0-13 103 tablet by ity of tablet 00:00: mouth at [place] [address] bedtime. Medical Branch amitriptyli 2021-04 Yes [id number] 10mg Take 1 [facility] ne 10 mg 0-13 103 tablet by ity of tablet 00:00: mouth at [place] 00 bedtime. Medical Branch amitriptyli 2021-04 Yes [id number] 10mg Take 1 [facility] ne 10 mg 0-13 103 tablet by ity of tablet 00:00: mouth at [place] 00 bedtime. Medical Branch amitriptyli 2021-04 Yes [id number] 10mg Take 1 [facility] ne 10 mg 0-13 103 tablet by ity of tablet 00:00: mouth at [place] 00 bedtime. Medical Branch amitriptyli 2021-04 Yes [id number] 10mg Take 1 [facility] ne 10 mg 0-13 103 tablet by ity of tablet 00:00: mouth at [place] 00 bedtime. Medical Branch amitriptyli 2021-04 Yes [id number] 10mg Take 1 [facility] ne 10 mg 0-13 103 tablet by ity of tablet 00:00: mouth at [place] 00 bedtime. Medical Branch doxycycline 2021-04- No [id number] 100mg Take 1 [facility] hyclate 100 0-13 06-20 tablet by it y of mg tablet 00:00: 00:00 mouth in [place] 00 :00 the Medical morning Branch and 1 tablet in the evening. tiZANidine 2021-04- No [id number] 2mg Take 1 [facility] 2 mg tablet 0-13 06-20 103 tablet by it y of 00:00: 00:00 mouth at [place] 00 :00 bedtime as Medical needed Branch (muscle spasms). doxycycline 2021-04- No [id number] 100mg Take 1 [facility] hyclate 100 0-13 06-20 tablet by it y of mg tablet 00:00: 00:00 mouth in [place] 00 :00 the Medical morning Branch and 1 tablet in the evening. tiZANidine 2021-04- No [id number] 2mg Take 1 [facility] 2 mg tablet 0-13 06-20 103 tablet by it y of 00:00: 00:00 mouth at [place] 00 :00 bedtime as Medical needed Branch (muscle spasms). meloxicam 2021-04- No [id number] 7.5mg Take 1 [facility] 7.5 mg 0-13 06-05 103 tablet by ity of tablet 00:00: 00:00 mouth in [place] 00 :00 the Medical morning. Branch FLUoxetine 2021-04- No [id number] 20mg Take 1 [facility] 20 mg 0-13 05-10 capsule by ity of capsule 00:00: 00:00 mouth in [place] 00 :00 the Medical morning. Branch tirzepatide 2021-04- No [id number] 2.5mg inject 2.5 [facility] (MOUNJARO) 0-13 01-26 mg under ity of 2.5 mg/0.5 00:00: 00:00 the skin [place] mL PnIj 00 :00 weekly. Medical Start Branch 2.5mg SC qWeek x 4 Weeks, then increase to 5 mg SC qWeek TRULICITY Yes [id number] .75mg INJECT [facility] 0.75 mg/0.5 9-12 0.75 MG ity o f mL PnIj 00:00: UNDER THE [place] [address] SKIN Medical WEEKLY. Branch TRULICITY Yes [id number] .75mg INJECT [facility] 0.75 mg/0.5 9-12 0.75 MG ity o f mL PnIj 00:00: UNDER THE [place] SKIN Medical WEEKLY. Branch TRULICITY Yes [id number] .75mg INJECT [facility] 0.75 mg/0.5 9-12 0.75 MG ity o f mL PnIj 00:00: UNDER THE [place] SKIN Medical WEEKLY. Branch TRULICITY Yes [id number] .75mg INJECT [facility] 0.75 mg/0.5 9-12 0.75 MG ity o f mL PnIj 00:00: UNDER THE [place] SKIN Medical WEEKLY. Branch TRULICITY Yes [id number] .75mg INJECT [facility] 0.75 mg/0.5 9-12 0.75 MG ity o f mL PnIj 00:00: UNDER THE [place] SKIN Medical WEEKLY. Branch TRULICITY 2021- No [id number] .75mg INJECT [facility] 0.75 mg/0.5 9-12 10-13 0.75 MG ity of mL PnIj 00:00: 00:00 UNDER THE [facility] 00 :00 SKIN Medical WEEKLY. Branch TRULICITY 2021- No [id number] .75mg INJECT [facility] 0.75 mg/0.5 9-12 10-13 0.75 MG ity of mL PnIj 00:00: 00:00 UNDER THE [place] 00 :00 SKIN Medical WEEKLY. Branch meloxicam 0 Yes 7.5mg Take 7.5 Uni vers 7.5 mg 9-08 mg by ity of tablet 15:52: mouth in [place] [address] the Medical morning. Branch meloxicam 2021-0 Yes 7.5mg Take 7.5 [facility] vers 7.5 mg 9-08 mg by ity of tablet 15:52: mouth in [place] [address] the Medical morning. Branch meloxicam 2021-0 Yes 7.5mg Take 7.5 [facility] vers 7.5 mg 9-08 mg by ity of tablet 15:52: mouth in [place] [address] the Medical morning. Branch meloxicam 2021-0 Yes 7.5mg Take 7.5 [facility] vers 7.5 mg 9-08 mg by ity of tablet 15:52: mouth in [place] [address] the Medical morning. Branch meloxicam 0 Yes 7.5mg Take 7.5 [facility] vers 7.5 mg 9-08 mg by ity of tablet 15:52: mouth in [place] [address] the Medical morning. Branch meloxicam 2021-0 Yes 7.5mg Take 7.5 [facility] vers 7.5 mg 9-08 mg by ity of tablet 15:52: mouth in [place] [address] the Medical morning. Branch Diclofenac Yes [id number] Apply to [facility] Sodium 9-08 area(s) 4 ity of (VOLTAREN) 00:00: (four) [place] 1 % gel 00 times Medical daily. Branch Apply 4 g QID on affected areas acetaminoph 2021-0 Yes [id number] 650mg Take 1 [facility] en 650 mg 9-08 tablet by ity o f CR tablet 00:00: mouth [place] 00 every 8 Medical (eight) Branch hours as needed for Pain or Fever. doxycycline 2021-0 Yes [id number] 100mg Take 1 [facility] hyclate 100 9-08 tablet by ity of mg tablet 00:00: mouth in [facility] 00 the Medical morning Branch and 1 tablet in the evening. Diclofenac 2021-0 Yes [id number] Apply to [facility] Sodium 9-08 area(s) 4 ity of (VOLTAREN) 00:00: (four) [place] 1 % gel 00 times Medical daily. Branch Apply 4 g QID on affected areas acetaminoph 2022-0 Yes [id number] 650mg Take 1 [facility] en 650 mg 9-08 tablet by ity o f CR tablet 00:00: mouth [place] 00 every 8 Medical (eight) Branch hours as needed for Pain or Fever. doxycycline 2022-0 Yes [id number] 100mg Take 1 [facility] hyclate 100 9-08 tablet by ity of mg tablet 00:00: mouth in [place] 00 the Medical morning Branch and 1 tablet in the evening. Diclofenac 2022-0 Yes [id number] Apply to [facility] Sodium 9-08 area(s) 4 ity of (VOLTAREN) 00:00: (four) [place] 1 % gel 00 times Medical daily. Branch Apply 4 g QID on affected areas acetaminoph 2-0 Yes [id number] 650mg Take 1 [facility] en 650 mg 9-08 tablet by ity o f CR tablet 00:00: mouth [place] 00 every 8 Medical (eight) Branch hours as needed for Pain or Fever. doxycycline 2-0 Yes [id number] 100mg Take 1 [facility] hyclate 100 9-08 tablet by ity of mg tablet 00:00: mouth in [place] 00 the Medical morning Branch and 1 tablet in the evening. Diclofenac 2022-0 Yes [id number] Apply to [facility] Sodium 9-08 area(s) 4 ity of (VOLTAREN) 00:00: (four) [place] 1 % gel 00 times Medical daily. Branch Apply 4 g QID on affected areas acetaminoph 2-0 Yes [id number] 650mg Take 1 [facility] en 650 mg 9-08 tablet by ity o f CR tablet 00:00: mouth [place] 00 every 8 Medical (eight) Branch hours as needed for Pain or Fever. doxycycline 2022-0 Yes [id number] 100mg Take 1 [facility] hyclate 100 9-08 tablet by ity of mg tablet 00:00: mouth in [place] 00 the Medical morning Branch and 1 tablet in the evening. Diclofenac 2022-0 Yes [id number] Apply to [facility] Sodium 9-08 area(s) 4 ity of (VOLTAREN) 00:00: (four) [place] 1 % gel 00 times Medical daily. Branch Apply 4 g QID on affected areas acetaminoph 2022-0 Yes [id number] 650mg Take 1 [facility] en 650 mg 9-08 tablet by ity o f CR tablet 00:00: mouth [place] 00 every 8 Medical (eight) Branch hours as needed for Pain or Fever. doxycycline 2-0 Yes [id number] 100mg Take 1 [facility] hyclate 100 9-08 tablet by ity of mg tablet 00:00: mouth in [place] 00 the Medical morning Branch and 1 tablet in the evening. Diclofenac 2021-0 Yes [id number] Apply to [facility] Sodium 9-08 area(s) 4 ity of (VOLTAREN) 00:00: (four) [place] 1 % gel 00 times Medical daily. Branch Apply 4 g QID on affected areas acetaminoph 2021-0 Yes [id number] 650mg Take 1 [facility] en 650 mg 9-08 tablet by ity o f CR tablet 00:00: mouth [place] 00 every 8 Medical (eight) Branch hours as needed for Pain or Fever. doxycycline 2021-0 Yes [id number] 100mg Take 1 [facility] hyclate 100 9-08 tablet by ity of mg tablet 00:00: mouth in [place] 00 the Medical morning Branch and 1 tablet in the evening. Diclofenac 2021-0 Yes [id number] Apply to [facility] Sodium 9-08 area(s) 4 ity of (VOLTAREN) 00:00: (four) [place] 1 % gel 00 times Medical daily. Branch Apply 4 g QID on affected areas acetaminoph 2021-0 Yes [id number] 650mg Take 1 [facility] en 650 mg 9-08 tablet by ity o f CR tablet 00:00: mouth [place] 00 every 8 Medical (eight) Branch hours as needed for Pain or Fever. Diclofenac 2-0 Yes [id number] Apply to [facility] Sodium 9-08 area(s) 4 ity of (VOLTAREN) 00:00: (four) [place] 1 % gel 00 times Medical daily. Branch Apply 4 g QID on affected areas acetaminoph 2022-0 Yes [id number] 650mg Take 1 [facility] en 650 mg 9-08 tablet by ity o f CR tablet 00:00: mouth [place] 00 every 8 Medical (eight) Branch hours as needed for Pain or Fever. Diclofenac 2022-0 Yes [id number] Apply to [facility] Sodium 9-08 area(s) 4 ity of (VOLTAREN) 00:00: (four) [place] 1 % gel 00 times Medical daily. Branch Apply 4 g QID on affected areas acetaminoph 2022-0 Yes [id number] 650mg Take 1 [facility] en 650 mg 9-08 tablet by ity o f CR tablet 00:00: mouth [place] 00 every 8 Medical (eight) Branch hours as needed for Pain or Fever. Diclofenac 2-0 Yes [id number] Apply to [facility] Sodium 9-08 area(s) 4 ity of (VOLTAREN) 00:00: (four) [place] 1 % gel 00 times Medical daily. Branch Apply 4 g QID on affected areas acetaminoph 2022-0 Yes [id number] 650mg Take 1 [facility] en 650 mg 9-08 tablet by ity o f CR tablet 00:00: mouth [place] 00 every 8 Medical (eight) Branch hours as needed for Pain or Fever. Diclofenac 2021-0 Yes [id number] Apply to [facility] Sodium 9-08 area(s) 4 ity of (VOLTAREN) 00:00: (four) [place] 1 % gel 00 times Medical daily. Branch Apply 4 g QID on affected areas acetaminoph 2022-0 Yes [id number] 650mg Take 1 [facility] en 650 mg 9-08 tablet by ity o f CR tablet 00:00: mouth [place] 00 every 8 Medical (eight) Branch hours as needed for Pain or Fever. Diclofenac 2-0 Yes [id number] Apply to [facility] Sodium 9-08 area(s) 4 ity of (VOLTAREN) 00:00: (four) [place] 1 % gel 00 times Medical daily. Branch Apply 4 g QID on affected areas acetaminoph 2022-0 Yes [id number] 650mg Take 1 [facility] en 650 mg 9-08 tablet by ity o f CR tablet 00:00: mouth [place] 00 every 8 Medical (eight) Branch hours as needed for Pain or Fever. Diclofenac 2-0 Yes [id number] Apply to [facility] Sodium 9-08 area(s) 4 ity of (VOLTAREN) 00:00: (four) [place] 1 % gel 00 times Medical daily. Branch Apply 4 g QID on affected areas acetaminoph 2022-0 Yes [id number] 650mg Take 1 [facility] 650 mg 9-08 tablet by [facility] o f CR tablet 00:00: mouth [place] 00 every 8 Medical (eight) Branch hours as needed for Pain or Fever. Diclofenac 2-0 Yes [id number] Apply to [facility] Sodium 9-08 area(s) 4 ity of (VOLTAREN) 00:00: (four) [place] 1 % gel 00 times Medical daily. Branch Apply 4 g QID on affected areas acetaminoph 2022-0 Yes [id number] 650mg Take 1 [facility] 650 mg 9-08 tablet by ity o f CR tablet 00:00: mouth [place] 00 every 8 Medical (eight) Branch hours as needed for Pain or Fever. Diclofenac 2022-0 Yes [id number] Apply to [facility] Sodium 9-08 area(s) 4 ity of (VOLTAREN) 00:00: (four) [place] 1 % gel 00 times Medical daily. Branch Apply 4 g QID on affected areas acetaminoph 2022-0 Yes [id number] 650mg Take 1 [facility] 650 mg 9-08 tablet by ity o f CR tablet 00:00: mouth [place] 00 every 8 Medical (eight) Branch hours as needed for Pain or Fever. Diclofenac 2-0 Yes [id number] Apply to [facility] Sodium 9-08 area(s) 4 ity of (VOLTAREN) 00:00: (four) [place] 1 % gel 00 times Medical daily. Branch Apply 4 g QID on affected areas acetaminoph 2022-0 Yes [id number] 650mg Take 1 [facility] 650 mg 9-08 tablet by ity o f CR tablet 00:00: mouth [place] 00 every 8 Medical (eight) Branch hours as needed for Pain or Fever. Diclofenac 2-0 Yes [id number] Apply to [facility] Sodium 9-08 area(s) 4 ity of (VOLTAREN) 00:00: (four) [place] 1 % gel 00 times Medical daily. Branch Apply 4 g QID on affected areas acetaminoph 2022-0 Yes [id number] 650mg Take 1 [facility] 650 mg 9-08 tablet by ity o f CR tablet 00:00: mouth [place] 00 every 8 Medical (eight) Branch hours as needed for Pain or Fever. Diclofenac 2022-0 Yes [id number] Apply to [facility] Sodium 9-08 area(s) 4 ity of (VOLTAREN) 00:00: (four) [place] 1 % gel 00 times Medical daily. Branch Apply 4 g QID on affected areas acetaminoph 2022-0 Yes [id number] 650mg Take 1 [facility] 650 mg 9-08 tablet by ity o f CR tablet 00:00: mouth [place] 00 every 8 Medical (eight) Branch hours as needed for Pain or Fever. Diclofenac 2022-0 Yes [id number] Apply to [facility] Sodium 9-08 area(s) 4 ity of (VOLTAREN) 00:00: (four) [place] 1 % gel 00 times Medical daily. Branch Apply 4 g QID on affected areas acetaminoph 2022-0 Yes [id number] 650mg Take 1 [facility] 650 mg 9-08 tablet by ity o f CR tablet 00:00: mouth [place] 00 every 8 Medical (eight) Branch hours as needed for Pain or Fever. Diclofenac 2022-0 Yes [id number] Apply to [facility] Sodium 9-08 area(s) 4 ity of (VOLTAREN) 00:00: (four) [place] 1 % gel 00 times Medical daily. Branch Apply 4 g QID on affected areas acetaminoph 2022-0 Yes [id number] 650mg Take 1 [facility] 650 mg 9-08 tablet by ity o f CR tablet 00:00: mouth [place] 00 every 8 Medical (eight) Branch hours as needed for Pain or Fever. Diclofenac 2-0 Yes [id number] Apply to [facility] Sodium 9-08 area(s) 4 ity of (VOLTAREN) 00:00: (four) [place] 1 % gel 00 times Medical daily. Branch Apply 4 g QID on affected areas acetaminoph 2022-0 Yes [id number] 650mg Take 1 [facility] 650 mg 9-08 tablet by ity o f CR tablet 00:00: mouth [place] 00 every 8 Medical (eight) Branch hours as needed for Pain or Fever. Diclofenac 2022-0 Yes [id number] Apply to [facility] Sodium 9-08 area(s) 4 ity of (VOLTAREN) 00:00: (four) [place] 1 % gel 00 times Medical daily. Branch Apply 4 g QID on affected areas acetaminoph 2022-0 Yes [id number] 650mg Take 1 [facility] 650 mg 9-08 tablet by ity o f CR tablet 00:00: mouth [place] 00 every 8 Medical (eight) Branch hours as needed for Pain or Fever. Diclofenac 2022-0 Yes [id number] Apply to [facility] Sodium 9-08 area(s) 4 ity of (VOLTAREN) 00:00: (four) [place] 1 % gel 00 times Medical daily. Branch Apply 4 g QID on affected areas acetaminoph 2022-0 Yes [id number] 650mg Take 1 [facility] 650 mg 9-08 tablet by ity o f CR tablet 00:00: mouth [place] 00 every 8 Medical (eight) Branch hours as needed for Pain or Fever. Diclofenac 2-0 Yes [id number] Apply to [facility] Sodium 9-08 area(s) 4 ity of (VOLTAREN) 00:00: (four) [place] 1 % gel 00 times Medical daily. Branch Apply 4 g QID on affected areas acetaminoph 2-0 Yes [id number] 650mg Take 1 [facility] 650 mg 9-08 tablet by ity o f CR tablet 00:00: mouth [place] 00 every 8 Medical (eight) Branch hours as needed for Pain or Fever. Diclofenac 2021-0 Yes [id number] Apply to [facility] Sodium 9-08 area(s) 4 ity of (VOLTAREN) 00:00: (four) [place] 1 % gel 00 times Medical daily. Branch Apply 4 g QID on affected areas acetaminoph 2-0 Yes [id number] 650mg Take 1 [facility] 650 mg 9-08 tablet by ity o f CR tablet 00:00: mouth [place] 00 every 8 Medical (eight) Branch hours as needed for Pain or Fever. Diclofenac 2021-0 Yes [id number] Apply to [facility] Sodium 9-08 area(s) 4 ity of (VOLTAREN) 00:00: (four) [place] 1 % gel 00 times Medical daily. Branch Apply 4 g QID on affected areas acetaminoph 2-0 Yes [id number] 650mg Take 1 [facility] 650 mg 9-08 tablet by ity o f CR tablet 00:00: mouth [place] 00 every 8 Medical (eight) Branch hours as needed for Pain or Fever. Diclofenac 2-0 Yes [id number] Apply to [facility] Sodium 9-08 area(s) 4 ity of (VOLTAREN) 00:00: (four) [place] 1 % gel 00 times Medical daily. Branch Apply 4 g QID on affected areas acetaminoph 2022-0 Yes [id number] 650mg Take 1 [facility] 650 mg 9-08 tablet by ity o f CR tablet 00:00: mouth [place] 00 every 8 Medical (eight) Branch hours as needed for Pain or Fever. Diclofenac 2-0 Yes [id number] Apply to [facility] Sodium 9-08 area(s) 4 ity of (VOLTAREN) 00:00: (four) [place] 1 % gel 00 times Medical daily. Branch Apply 4 g QID on affected areas acetaminoph 2022-0 Yes [id number] 650mg Take 1 [facility] 650 mg 9-08 tablet by ity o f CR tablet 00:00: mouth [place] 00 every 8 Medical (eight) Branch hours as needed for Pain or Fever. Diclofenac 2022-0 Yes [id number] Apply to [facility] Sodium 9-08 area(s) 4 ity of (VOLTAREN) 00:00: (four) [place] 1 % gel 00 times Medical daily. Branch Apply 4 g QID on affected areas acetaminoph 2022-0 Yes [id number] 650mg Take 1 [facility] 650 mg 9-08 tablet by ity o f CR tablet 00:00: mouth [place] 00 every 8 Medical (eight) Branch hours as needed for Pain or Fever. Diclofenac 2-0 Yes [id number] Apply to [facility] Sodium 9-08 area(s) 4 ity of (VOLTAREN) 00:00: (four) [place] 1 % gel 00 times Medical daily. Branch Apply 4 g QID on affected areas acetaminoph 2022-0 Yes [id number] 650mg Take 1 [facility] 650 mg 9-08 tablet by ity o f CR tablet 00:00: mouth [place] 00 every 8 Medical (eight) Branch hours as needed for Pain or Fever. Diclofenac 2-0 Yes [id number] Apply to [facility] Sodium 9-08 area(s) 4 ity of (VOLTAREN) 00:00: (four) [place] 1 % gel 00 times Medical daily. Branch Apply 4 g QID on affected areas acetaminoph 2022-0 Yes [id number] 650mg Take 1 [facility] 650 mg 9-08 tablet by ity o f CR tablet 00:00: mouth [place] 00 every 8 Medical (eight) Branch hours as needed for Pain or Fever. Diclofenac 2022-0 Yes [id number] Apply to [facility] Sodium 9-08 area(s) 4 ity of (VOLTAREN) 00:00: (four) [place] 1 % gel 00 times Medical daily. Branch Apply 4 g QID on affected areas acetaminoph 2022-0 Yes [id number] 650mg Take 1 [facility] 650 mg 9-08 tablet by ity o f CR tablet 00:00: mouth [place] 00 every 8 Medical (eight) Branch hours as needed for Pain or Fever. Diclofenac 2022-0 Yes [id number] Apply to [facility] Sodium 9-08 area(s) 4 ity of (VOLTAREN) 00:00: (four) [place] 1 % gel 00 times Medical daily. Branch Apply 4 g QID on affected areas acetaminoph 2022-0 Yes [id number] 650mg Take 1 [facility] 650 mg 9-08 tablet by ity o f CR tablet 00:00: mouth [place] 00 every 8 Medical (eight) Branch hours as needed for Pain or Fever. Diclofenac 2021-0 Yes [id number] Apply to [facility] Sodium 9-08 area(s) 4 ity of (VOLTAREN) 00:00: (four) [place] 1 % gel 00 times Medical daily. Branch Apply 4 g QID on affected areas acetaminoph 2-0 Yes [id number] 650mg Take 1 [facility] 650 mg 9-08 tablet by ity o f CR tablet 00:00: mouth [place] 00 every 8 Medical (eight) Branch hours as needed for Pain or Fever. Diclofenac 2021-0 Yes [id number] Apply to [facility] Sodium 9-08 area(s) 4 ity of (VOLTAREN) 00:00: (four) [place] 1 % gel 00 times Medical daily. Branch Apply 4 g QID on affected areas acetaminoph 2-0 Yes [id number] 650mg Take 1 [facility] 650 mg 9-08 tablet by ity o f CR tablet 00:00: mouth [place] 00 every 8 Medical (eight) Branch hours as needed for Pain or Fever. Diclofenac 2021-0 Yes [id number] Apply to [facility] Sodium 9-08 area(s) 4 ity of (VOLTAREN) 00:00: (four) [place] 1 % gel 00 times Medical daily. Branch Apply 4 g QID on affected areas acetaminoph 2022-0 Yes [id number] 650mg Take 1 [facility] 650 mg 9-08 tablet by ity o f CR tablet 00:00: mouth [place] 00 every 8 Medical (eight) Branch hours as needed for Pain or Fever. Diclofenac 2-0 Yes [id number] Apply to [facility] Sodium 9-08 area(s) 4 ity of (VOLTAREN) 00:00: (four) [place] 1 % gel 00 times Medical daily. Branch Apply 4 g QID on affected areas acetaminoph 2022-0 Yes [id number] 650mg Take 1 [facility] 650 mg 9-08 tablet by ity o f CR tablet 00:00: mouth [place] 00 every 8 Medical (eight) Branch hours as needed for Pain or Fever. Diclofenac 2022-0 Yes [id number] Apply to [facility] Sodium 9-08 area(s) 4 ity of (VOLTAREN) 00:00: (four) [place] 1 % gel 00 times Medical daily. Branch Apply 4 g QID on affected areas acetaminoph 2022-0 Yes [id number] 650mg Take 1 [facility] 650 mg 9-08 tablet by ity o f CR tablet 00:00: mouth [place] 00 every 8 Medical (eight) Branch hours as needed for Pain or Fever. Diclofenac 2-0 Yes [id number] Apply to [facility] Sodium 9-08 area(s) 4 ity of (VOLTAREN) 00:00: (four) [place] 1 % gel 00 times Medical daily. Branch Apply 4 g QID on affected areas acetaminoph 2022-0 Yes [id number] 650mg Take 1 [facility] 650 mg 9-08 tablet by ity o f CR tablet 00:00: mouth [place] 00 every 8 Medical (eight) Branch hours as needed for Pain or Fever. Diclofenac 2-0 Yes [id number] Apply to [facility] Sodium 9-08 area(s) 4 ity of (VOLTAREN) 00:00: (four) [place] 1 % gel 00 times Medical daily. Branch Apply 4 g QID on affected areas acetaminoph 2022-0 Yes [id number] 650mg Take 1 [facility] 650 mg 9-08 tablet by ity o f CR tablet 00:00: mouth [place] 00 every 8 Medical (eight) Branch hours as needed for Pain or Fever. Diclofenac 2022-0 Yes [id number] Apply to [facility] Sodium 9-08 area(s) 4 ity of (VOLTAREN) 00:00: (four) [place] 1 % gel 00 times Medical daily. Branch Apply 4 g QID on affected areas acetaminoph 2022-0 Yes [id number] 650mg Take 1 [facility] 650 mg 9-08 tablet by ity o f CR tablet 00:00: mouth [place] 00 every 8 Medical (eight) Branch hours as needed for Pain or Fever. Diclofenac 2022-0 Yes [id number] Apply to [facility] Sodium 9-08 area(s) 4 ity of (VOLTAREN) 00:00: (four) [place] 1 % gel 00 times Medical daily. Branch Apply 4 g QID on affected areas acetaminoph 2022-0 Yes [id number] 650mg Take 1 [facility] 650 mg 9-08 tablet by ity o f CR tablet 00:00: mouth [place] 00 every 8 Medical (eight) Branch hours as needed for Pain or Fever. Diclofenac 2-0 Yes [id number] Apply to [facility] Sodium 9-08 area(s) 4 ity of (VOLTAREN) 00:00: (four) [place] 1 % gel 00 times Medical daily. Branch Apply 4 g QID on affected areas acetaminoph 2022-0 Yes [id number] 650mg Take 1 [facility] 650 mg 9-08 tablet by ity o f CR tablet 00:00: mouth [place] 00 every 8 Medical (eight) Branch hours as needed for Pain or Fever. Diclofenac 2021-0 Yes [id number] Apply to [facility] Sodium 9-08 area(s) 4 ity of (VOLTAREN) 00:00: (four) [place] 1 % gel 00 times Medical daily. Branch Apply 4 g QID on affected areas acetaminoph 2022-0 Yes [id number] 650mg Take 1 [facility] 650 mg 9-08 tablet by ity o f CR tablet 00:00: mouth [place] 00 every 8 Medical (eight) Branch hours as needed for Pain or Fever. Diclofenac 2-0 Yes [id number] Apply to [facility] Sodium 9-08 area(s) 4 ity of (VOLTAREN) 00:00: (four) [place] 1 % gel 00 times Medical daily. Branch Apply 4 g QID on affected areas acetaminoph 2022-0 Yes [id number] 650mg Take 1 [facility] 650 mg 9-08 tablet by ity o f CR tablet 00:00: mouth [place] 00 every 8 Medical (eight) Branch hours as needed for Pain or Fever. Diclofenac 2-0 Yes [id number] Apply to [facility] Sodium 9-08 area(s) 4 ity of (VOLTAREN) 00:00: (four) [place] 1 % gel 00 times Medical daily. Branch Apply 4 g QID on affected areas acetaminoph 2022-0 Yes [id number] 650mg Take 1 [facility] 650 mg 9-08 tablet by ity o f CR tablet 00:00: mouth [place] 00 every 8 Medical (eight) Branch hours as needed for Pain or Fever. Diclofenac 2-0 Yes [id number] Apply to [facility] Sodium 9-08 area(s) 4 ity of (VOLTAREN) 00:00: (four) [place] 1 % gel 00 times Medical daily. Branch Apply 4 g QID on affected areas acetaminoph 2022-0 Yes [id number] 650mg Take 1 [facility] 650 mg 9-08 tablet by ity o f CR tablet 00:00: mouth [place] 00 every 8 Medical (eight) Branch hours as needed for Pain or Fever. Diclofenac 2022-0 Yes [id number] Apply to [facility] Sodium 9-08 area(s) 4 ity of (VOLTAREN) 00:00: (four) [place] 1 % gel 00 times Medical daily. Branch Apply 4 g QID on affected areas acetaminoph 2022-0 Yes [id number] 650mg Take 1 [facility] 650 mg 9-08 tablet by ity o f CR tablet 00:00: mouth [place] 00 every 8 Medical (eight) Branch hours as needed for Pain or Fever. Diclofenac 2-0 Yes [id number] Apply to [facility] Sodium 9-08 area(s) 4 ity of (VOLTAREN) 00:00: (four) [place] 1 % gel 00 times Medical daily. Branch Apply 4 g QID on affected areas acetaminoph 2022-0 Yes [id number] 650mg Take 1 [facility] 650 mg 9-08 tablet by ity o f CR tablet 00:00: mouth [place] 00 every 8 Medical (eight) Branch hours as needed for Pain or Fever. Diclofenac 2-0 Yes [id number] Apply to [facility] Sodium 9-08 area(s) 4 ity of (VOLTAREN) 00:00: (four) [place] 1 % gel 00 times Medical daily. Branch Apply 4 g QID on affected areas acetaminoph 2022-0 Yes [id number] 650mg Take 1 [facility] 650 mg 9-08 tablet by ity o f CR tablet 00:00: mouth [place] 00 every 8 Medical (eight) Branch hours as needed for Pain or Fever. Diclofenac 2022-0 Yes [id number] Apply to [facility] Sodium 9-08 area(s) 4 ity of (VOLTAREN) 00:00: (four) [place] 1 % gel 00 times Medical daily. Branch Apply 4 g QID on affected areas acetaminoph 2022-0 Yes [id number] 650mg Take 1 [facility] 650 mg 9-08 tablet by ity o f CR tablet 00:00: mouth [place] 00 every 8 Medical (eight) Branch hours as needed for Pain or Fever. Diclofenac 2022-0 Yes [id number] Apply to [facility] Sodium 9-08 area(s) 4 ity of (VOLTAREN) 00:00: (four) [place] 1 % gel 00 times Medical daily. Branch Apply 4 g QID on affected areas acetaminoph 2022-0 Yes [id number] 650mg Take 1 [facility] 650 mg 9-08 tablet by ity o f CR tablet 00:00: mouth [place] 00 every 8 Medical (eight) Branch hours as needed for Pain or Fever. Diclofenac 2022-0 Yes [id number] Apply to [facility] Sodium 9-08 area(s) 4 ity of (VOLTAREN) 00:00: (four) [place] 1 % gel 00 times Medical daily. Branch Apply 4 g QID on affected areas acetaminoph 2022-0 Yes [id number] 650mg Take 1 [facility] 650 mg 9-08 tablet by ity o f CR tablet 00:00: mouth [place] 00 every 8 Medical (eight) Branch hours as needed for Pain or Fever. Diclofenac 2-0 Yes [id number] Apply to [facility] Sodium 9-08 area(s) 4 ity of (VOLTAREN) 00:00: (four) [place] 1 % gel 00 times Medical daily. Branch Apply 4 g QID on affected areas acetaminoph 2022-0 Yes [id number] 650mg Take 1 [facility] 650 mg 9-08 tablet by ity o f CR tablet 00:00: mouth [place] 00 every 8 Medical (eight) Branch hours as needed for Pain or Fever. Diclofenac 2022-0 Yes [id number] Apply to [facility] Sodium 9-08 area(s) 4 ity of (VOLTAREN) 00:00: (four) [place] 1 % gel 00 times Medical daily. Branch Apply 4 g QID on affected areas acetaminoph 2022-0 Yes [id number] 650mg Take 1 [facility] 650 mg 9-08 tablet by ity o f CR tablet 00:00: mouth [place] 00 every 8 Medical (eight) Branch hours as needed for Pain or Fever. Diclofenac 2022-0 Yes [id number] Apply to [facility] Sodium 9-08 area(s) 4 ity of (VOLTAREN) 00:00: (four) [place] 1 % gel 00 times Medical daily. Branch Apply 4 g QID on affected areas acetaminoph 2022-0 Yes [id number] 650mg Take 1 [facility] 650 mg 9-08 tablet by ity o f CR tablet 00:00: mouth [place] 00 every 8 Medical (eight) Branch hours as needed for Pain or Fever. Diclofenac 2-0 Yes [id number] Apply to [facility] Sodium 9-08 area(s) 4 ity of (VOLTAREN) 00:00: (four) [place] 1 % gel 00 times Medical daily. Branch Apply 4 g QID on affected areas acetaminoph 2-0 Yes [id number] 650mg Take 1 [facility] 650 mg 9-08 tablet by ity o f CR tablet 00:00: mouth [place] 00 every 8 Medical (eight) Branch hours as needed for Pain or Fever. Diclofenac 2021-0 Yes [id number] Apply to [facility] Sodium 9-08 area(s) 4 ity of (VOLTAREN) 00:00: (four) [place] 1 % gel 00 times Medical daily. Branch Apply 4 g QID on affected areas acetaminoph 2021-0 Yes [id number] 650mg Take 1 [facility] 650 mg 9-08 tablet by ity o f CR tablet 00:00: mouth [place] 00 every 8 Medical (eight) Branch hours as needed for Pain or Fever. Diclofenac 2021-0 Yes [id number] Apply to [facility] Sodium 9-08 area(s) 4 ity of (VOLTAREN) 00:00: (four) [place] 1 % gel 00 times Medical daily. Branch Apply 4 g QID on affected areas acetaminoph 2-0 Yes [id number] 650mg Take 1 [facility] 650 mg 9-08 tablet by ity o f CR tablet 00:00: mouth [place] 00 every 8 Medical (eight) Branch hours as needed for Pain or Fever. Diclofenac 2-0 Yes [id number] Apply to [facility] Sodium 9-08 area(s) 4 ity of (VOLTAREN) 00:00: (four) [place] 1 % gel 00 times Medical daily. Branch Apply 4 g QID on affected areas acetaminoph 2022-0 Yes [id number] 650mg Take 1 [facility] 650 mg 9-08 tablet by ity o f CR tablet 00:00: mouth [place] 00 every 8 Medical (eight) Branch hours as needed for Pain or Fever. Diclofenac 2-0 Yes [id number] Apply to [facility] Sodium 9-08 area(s) 4 ity of (VOLTAREN) 00:00: (four) [place] 1 % gel 00 times Medical daily. Branch Apply 4 g QID on affected areas acetaminoph 2022-0 Yes [id number] 650mg Take 1 [facility] 650 mg 9-08 tablet by ity o f CR tablet 00:00: mouth [place] 00 every 8 Medical (eight) Branch hours as needed for Pain or Fever. Diclofenac 2-0 Yes [id number] Apply to [facility] Sodium 9-08 area(s) 4 ity of (VOLTAREN) 00:00: (four) [place] 1 % gel 00 times Medical daily. Branch Apply 4 g QID on affected areas acetaminoph 2-0 Yes [id number] 650mg Take 1 [facility] 650 mg 9-08 tablet by ity o f CR tablet 00:00: mouth [place] 00 every 8 Medical (eight) Branch hours as needed for Pain or Fever. Diclofenac 2021-0 Yes [id number] Apply to [facility] Sodium 9-08 area(s) 4 ity of (VOLTAREN) 00:00: (four) [place] 1 % gel 00 times Medical daily. Branch Apply 4 g QID on affected areas acetaminoph 2-0 Yes [id number] 650mg Take 1 [facility] 650 mg 9-08 tablet by ity o f CR tablet 00:00: mouth [place] 00 every 8 Medical (eight) Branch hours as needed for Pain or Fever. Diclofenac 2-0 Yes [id number] Apply to [facility] Sodium 9-08 area(s) 4 ity of (VOLTAREN) 00:00: (four) [place] 1 % gel 00 times Medical daily. Branch Apply 4 g QID on affected areas acetaminoph 2-0 Yes [id number] 650mg Take 1 [facility] 650 mg 9-08 tablet by ity o f CR tablet 00:00: mouth [place] 00 every 8 Medical (eight) Branch hours as needed for Pain or Fever. Diclofenac 2022-0 Yes [id number] Apply to [facility] Sodium 9-08 area(s) 4 ity of (VOLTAREN) 00:00: (four) [place] 1 % gel 00 times Medical daily. Branch Apply 4 g QID on affected areas acetaminoph 2022-0 Yes [id number] 650mg Take 1 [facility] 650 mg 9-08 tablet by ity o f CR tablet 00:00: mouth [place] 00 every 8 Medical (eight) Branch hours as needed for Pain or Fever. doxycycline 2022-0 202- No [id number] 100mg Take 1 [facility] hyclate 100 9-08 10-13 tablet by it y of mg tablet 00:00: 00:00 mouth in [place] 00 :00 the Medical morning Branch and 1 tablet in the evening. doxycycline 2021-0 2021- No [id number] 100mg Take 1 [facility] hyclate 100 9-08 10-13 tablet by it y of mg tablet 00:00: 00:00 mouth in [place] 00 :00 the Medical morning Branch and 1 tablet in the evening. LEVOTHYROXI 2021-0 Yes [id number] TAKE ONE [facility] NE 25 mcg 9-07 (1) TABLET ity of tablet 00:00: BY MOUTH [place] 00 EVERY Medical MORNING. Branch LEVOTHYROXI 2021-0 Yes [id number] TAKE ONE [facility] NE 25 mcg 9-07 (1) TABLET ity of tablet 00:00: BY MOUTH [place] 00 EVERY Medical MORNING. Branch LEVOTHYROXI 2021-0 Yes [id number] TAKE ONE [facility] [place] 25 mcg 9-07 (1) TABLET ity of tablet 00:00: BY MOUTH [place] 00 EVERY Medical MORNING. Branch LEVOTHYROXI 2021-0 Yes [id number] TAKE ONE [facility] NE 25 mcg 9-07 (1) TABLET ity of tablet 00:00: BY MOUTH [place] 00 EVERY Medical MORNING. Branch LEVOTHYROXI 2021-0 Yes [id number] TAKE ONE [facility] 25 mcg 9-07 (1) TABLET ity of tablet 00:00: BY MOUTH [place] 00 EVERY Medical MORNING. Branch LEVOTHYROXI 2021-0 Yes [id number] TAKE ONE [facility] 25 mcg 9-07 (1) TABLET ity of tablet 00:00: BY MOUTH [place] 00 EVERY Medical MORNING. Branch LEVOTHYROXI 2021-0 Yes [id number] TAKE ONE [facility] 25 mcg 9-07 (1) TABLET ity of tablet 00:00: BY MOUTH [place] 00 EVERY Medical MORNING. Branch LEVOTHYROXI 2021-0 Yes [id number] TAKE ONE [facility] 25 mcg 9-07 (1) TABLET ity of tablet 00:00: BY MOUTH [place] 00 EVERY Medical MORNING. Branch LEVOTHYROXI 2021-0 Yes [id number] TAKE ONE [facility] 25 mcg 9-07 (1) TABLET ity of tablet 00:00: BY MOUTH [place] 00 EVERY Medical MORNING. Branch LEVOTHYROXI 2021-0 Yes [id number] TAKE ONE [facility] 25 mcg 9-07 (1) TABLET ity of tablet 00:00: BY MOUTH [place] 00 EVERY Medical MORNING. Branch LEVOTHYROXI 2021-0 Yes [id number] TAKE ONE [facility] NE 25 mcg 9-07 (1) TABLET ity of tablet 00:00: BY MOUTH [place] 00 EVERY Medical MORNING. Branch LEVOTHYROXI 2-0 Yes [id number] TAKE ONE [facility] NE 25 mcg 9-07 (1) TABLET ity of tablet 00:00: BY MOUTH [place] 00 EVERY Medical MORNING. Branch LEVOTHYROXI 2021-0 Yes [id number] TAKE ONE [facility] 25 mcg 9-07 (1) TABLET ity of tablet 00:00: BY MOUTH [place] 00 EVERY Medical MORNING. Branch LEVOTHYROXI 2021-0 Yes [id number] TAKE ONE [facility] 25 mcg 9-07 (1) TABLET ity of tablet 00:00: BY MOUTH [place] 00 EVERY Medical MORNING. Branch LEVOTHYROXI 2021-0 Yes [id number] TAKE ONE [facility] 25 mcg 9-07 (1) TABLET ity of tablet 00:00: BY MOUTH [place] 00 EVERY Medical MORNING. Branch LEVOTHYROXI 2021-0 Yes [id number] TAKE ONE [facility] NE 25 mcg 9-07 (1) TABLET ity of tablet 00:00: BY MOUTH [place] 00 EVERY Medical MORNING. Branch LEVOTHYROXI 2021-0 Yes [id number] TAKE ONE [facility] NE 25 mcg 9-07 (1) TABLET ity of tablet 00:00: BY MOUTH [place] 00 EVERY Medical MORNING. Branch LEVOTHYROXI 2-0 Yes [id number] TAKE ONE [facility] 25 mcg 9-07 (1) TABLET ity of tablet 00:00: BY MOUTH [place] 00 EVERY Medical MORNING. Branch LEVOTHYROXI 2021-0 Yes [id number] TAKE ONE [facility] 25 mcg 9-07 (1) TABLET ity of tablet 00:00: BY MOUTH [place] 00 EVERY Medical MORNING. Branch LEVOTHYROXI 2-0 Yes [id number] TAKE ONE [facility] 25 mcg 9-07 (1) TABLET ity of tablet 00:00: BY MOUTH [place] 00 EVERY Medical MORNING. Branch LEVOTHYROXI 2-0 Yes [id number] TAKE ONE [facility] NE 25 mcg 9-07 (1) TABLET ity of tablet 00:00: BY MOUTH [place] 00 EVERY Medical MORNING. Branch LEVOTHYROXI 2021-0 Yes [id number] TAKE ONE [facility] NE 25 mcg 9-07 (1) TABLET ity of tablet 00:00: BY MOUTH [place] 00 EVERY Medical MORNING. Branch LEVOTHYROXI 2021-0 Yes [id number] TAKE ONE [facility] NE 25 mcg 9-07 (1) TABLET ity of tablet 00:00: BY MOUTH [place] 00 EVERY Medical MORNING. Branch LEVOTHYROXI 2021-0 Yes [id number] TAKE ONE [facility] 25 mcg 9-07 (1) TABLET ity of tablet 00:00: BY MOUTH [place] 00 EVERY Medical MORNING. Branch LEVOTHYROXI 2021-0 Yes [id number] TAKE ONE [facility] 25 mcg 9-07 (1) TABLET ity of tablet 00:00: BY MOUTH [place] 00 EVERY Medical MORNING. Branch LEVOTHYROXI 0 2023- No [id number] TAKE ONE [facility] NE 25 mcg 9-07 03-09 (1) TABLET ity of tablet 00:00: 00:00 BY MOUTH [place] 00 :00 EVERY Medical MORNING. Branch adalimumab Yes [id number] Start [facility] [place] 40 mg/0.4 8-24 160mg SC x ity of mL 00:00: 1 on Day [place] injection 00 1, then Medical 80mg SC x Branch 1 on day 15, then 40mg SC qWeek. lidocaine 5 Yes [id number] Apply 2g [facility] % ointment 8-24 to ity of 00:00: affected [place] 00 areas BID Medical PRN Branch amitriptyli 0 Yes [id number] 10mg Take 1 [facility] ne 10 mg 8-24 tablet by ity of tablet 00:00: mouth at [place] 00 bedtime. Medical Branch tiZANidine 0 Yes [id number] 2mg Take 1 [facility] 2 mg tablet 8-24 tablet by ity of 00:00: mouth [place] 00 every 8 Medical (eight) Branch hours as needed (muscle spasms). adalimumab Yes [id number] Start [facility] [place] 40 mg/0.4 8-24 160mg SC x ity of mL 00:00: 1 on Day [place] injection 00 1, then Medical 80mg SC x Branch 1 on day 15, then 40mg SC qWeek. lidocaine 5 0 Yes [id number] Apply 2g [facility] % ointment 8-24 to [facility]y of 00:00: affected [place] 00 areas BID [facility] PRN Branch amitriptyli 0 Yes [id number] 10mg Take 1 [facility] ne 10 mg 8-24 tablet by [facility] of tablet 00:00: mouth at [place] 00 bedtime. [facility] tiZANidine 0 Yes [id number] 2mg Take 1 [facility] 2 mg tablet 8-24 tablet by ity of 00:00: mouth [place] 00 every 8 Medical (eight) Branch hours as needed (muscle spasms). adalimumab Yes [id number] Start [facility] 40 mg/0.4 8-24 160mg SC x ity of mL 00:00: 1 on Day [place] injection 00 1, then Medical 80mg SC x Branch 1 on day 15, then 40mg SC qWeek. lidocaine 5 Yes [id number] Apply 2g [facility] % ointment 8-24 to ity of 00:00: affected 00 areas BID [facility] PRN Branch amitriptyli Yes [id number] 10mg Take 1 [facility] ne 10 mg 8-24 tablet by ity of tablet 00:00: mouth at [place] 00 bedtime. [facility] Branch tiZANidine Yes [id number] 2mg Take 1 [facility] 2 mg tablet 8-24 tablet by ity of 00:00: mouth [place] 00 every 8 Medical (eight) Branch hours as needed (muscle spasms). adalimumab Yes [id number] Start [facility] 40 mg/0.4 8-24 160mg SC x ity of mL 00:00: 1 on Day [place] injection 00 1, then Medical 80mg SC x Branch 1 on day 15, then 40mg SC qWeek. lidocaine 5 0 Yes [id number] Apply 2g [facility] % ointment 8-24 to ity of 00:00: affected [place] 00 areas BID [facility] PRN Branch amitriptyli 0 Yes [id number] 10mg Take 1 [facility] ne 10 mg 8-24 tablet by ity of tablet 00:00: mouth at [place] 00 bedtime. [facility] tiZANidine 0 Yes [id number] 2mg Take 1 [facility] 2 mg tablet 8-24 tablet by ity of 00:00: mouth [place] 00 every 8 Medical (eight) Branch hours as needed (muscle spasms). adalimumab Yes [id number] Start [facility] 40 mg/0.4 8-24 160mg SC x ity of mL 00:00: 1 on Day [place] injection 00 1, then Medical 80mg SC x Branch 1 on day 15, then 40mg SC qWeek. lidocaine 5 Yes [id number] Apply 2g [facility] % ointment 8-24 to ity of 00:00: affected [place] 00 areas BID [facility] PRN Branch amitriptyli Yes [id number] 10mg Take 1 [facility] ne 10 mg 8-24 tablet by [facility]y of tablet 00:00: mouth at [place] 00 bedtime. [facility] tiZANidine Yes [id number] 2mg Take 1 [facility] 2 mg tablet 8-24 tablet by ity of 00:00: mouth [place] 00 every 8 Medical (eight) Branch hours as needed (muscle spasms). adalimumab Yes [id number] Start [facility] 40 mg/0.4 8-24 160mg SC x ity of mL 00:00: 1 on Day [place] injection 00 1, then Medical 80mg SC x Branch 1 on day 15, then 40mg SC qWeek. lidocaine Yes [id number] Apply 2g [facility] % ointment 8-24 to ity of 00:00: affected [place] 00 areas BID [facility] PRN Branch amitriptyli 0 Yes [id number] 10mg Take 1 [facility] ne 10 mg 8-24 tablet by [facility] of tablet 00:00: mouth at [place] 00 bedtime. [facility] tiZANidine Yes [id number] 2mg Take 1 [facility] 2 mg tablet 8-24 tablet by ity of 00:00: mouth [place] 00 every 8 Medical (eight) Branch hours as needed (muscle spasms). adalimumab Yes [id number] Start [facility] 40 mg/0.4 8-24 160mg SC x ity of mL 00:00: 1 on Day [place] injection 00 1, then Medical 80mg SC x Branch 1 on day 15, then 40mg SC qWeek. lidocaine 5 Yes [id number] Apply 2g [facility] % ointment 8-24 to ity of 00:00: affected 00 areas BID [facility] PRN [facility] adalimumab Yes [id number] Start [facility] 40 mg/0.4 8-24 160mg SC x ity of mL 00:00: 1 on Day [place] injection 00 1, then Medical 80mg SC x Branch 1 on day 15, then 40mg SC qWeek. lidocaine Yes [id number] Apply 2g [facility] % ointment 8-24 to ity of 00:00: affected 00 areas BID [facility] PRN [facility] adalimumab Yes [id number] Start [facility] 40 mg/0.4 8-24 160mg SC x ity of mL 00:00: 1 on Day [place] injection 00 1, then Medical 80mg SC x Branch 1 on day 15, then 40mg SC qWeek. lidocaine Yes [id number] Apply 2g [facility] % ointment 8-24 to ity of 00:00: affected areas BID [facility] PR[facility] adalimumab Yes [id number] Start [facility] 40 mg/0.4 8-24 160mg SC x ity of mL 00:00: 1 on Day [place] injection 00 1, then Medical 80mg SC x Branch 1 on day 15, then 40mg SC qWeek. lidocaine Yes [id number] Apply 2g [facility] % ointment 8-24 to ity of 00:00: affected areas BID [facility] PR[facility] adalimumab Yes [id number] Start [facility] 40 mg/0.4 8-24 160mg SC x ity of mL 00:00: 1 on Day [place] injection 00 1, then Medical 80mg SC x Branch 1 on day 15, then 40mg SC qWeek. lidocaine Yes [id number] Apply 2g [facility] % ointment 8-24 to ity of 00:00: affected 00 areas BID [facility] PR[facility] adalimumab Yes [id number] Start [facility] 40 mg/0.4 8-24 160mg SC x ity of mL 00:00: 1 on Day [place] injection 00 1, then Medical 80mg SC x Branch 1 on day 15, then 40mg SC qWeek. lidocaine 5 Yes [id number] Apply 2g [facility] % ointment 8-24 to ity of 00:00: affected [place] 00 areas BID [facility] PR[facility] adalimumab Yes [id number] Start [facility] 40 mg/0.4 8-24 160mg SC x ity of mL 00:00: 1 on Day [place] injection 00 1, then Medical 80mg SC x Branch 1 on day 15, then 40mg SC qWeek. lidocaine 5 2021-0 Yes [id number] Apply 2g [facility] % ointment 8-24 to ity of 00:00: affected 00 areas BID [facility] PR[facility] adalimumab Yes [id number] Start [facility] 40 mg/0.4 8-24 160mg SC x ity of mL 00:00: 1 on Day [place] injection 00 1, then Medical 80mg SC x Branch 1 on day 15, then 40mg SC qWeek. lidocaine 5 Yes [id number] Apply 2g [facility] % ointment 8-24 to ity of 00:00: affected areas BID [facility] PR[facility] adalimumab 2021- Yes [id number] Start [facility] 40 mg/0.4 8-24 160mg SC x ity of mL 00:00: 1 on Day [place] injection 00 1, then Medical 80mg SC x Branch 1 on day 15, then 40mg SC qWeek. lidocaine 5 2021- Yes [id number] Apply 2g [facility] % ointment 8-24 to ity of 00:00: affected areas BID [facility] PR[facility] adalimumab 2021- Yes [id number] Start [facility] 40 mg/0.4 8-24 160mg SC x ity of mL 00:00: 1 on Day [place] injection 00 1, then Medical 80mg SC x Branch 1 on day 15, then 40mg SC qWeek. lidocaine 5 2021- Yes [id number] Apply 2g [facility] % ointment 8-24 to ity of 00:00: affected 00 areas BID [facility] PR[facility] adalimumab Yes [id number] Start [facility] 40 mg/0.4 8-24 160mg SC x ity of mL 00:00: 1 on Day [place] injection 00 1, then Medical 80mg SC x Branch 1 on day 15, then 40mg SC qWeek. lidocaine 5 2021- Yes [id number] Apply 2g [facility] % ointment 8-24 to ity of 00:00: affected 00 areas BID [facility] PR[facility] adalimumab Yes [id number] Start [facility] 40 mg/0.4 8-24 160mg SC x ity of mL 00:00: 1 on Day [place] injection 00 1, then Medical 80mg SC x Branch 1 on day 15, then 40mg SC qWeek. lidocaine 5 Yes [id number] Apply 2g [facility] % ointment 8-24 to ity of 00:00: affected 00 areas BID [facility] PR[facility] adalimumab Yes [id number] Start [facility] 40 mg/0.4 8-24 160mg SC x ity of mL 00:00: 1 on Day [place] injection 00 1, then Medical 80mg SC x Branch 1 on day 15, then 40mg SC qWeek. lidocaine 5 Yes [id number] Apply 2g [facility] % ointment 8-24 to ity of 00:00: affected 00 areas BID [facility] PR[facility] adalimumab Yes [id number] Start [facility] 40 mg/0.4 8-24 160mg SC x ity of mL 00:00: 1 on Day [place] injection 00 1, then Medical 80mg SC x Branch 1 on day 15, then 40mg SC qWeek. lidocaine Yes [id number] Apply 2g [facility] % ointment 8-24 to ity of 00:00: affected 00 areas BID [facility] PR[facility] adalimumab Yes [id number] Start [facility] 40 mg/0.4 8-24 160mg SC x ity of mL 00:00: 1 on Day [place] injection 00 1, then Medical 80mg SC x Branch 1 on day 15, then 40mg SC qWeek. lidocaine 5 Yes [id number] Apply 2g [facility] % ointment 8-24 to ity of 00:00: affected 00 areas BID [facility] PR[facility] adalimumab Yes [id number] Start [facility] 40 mg/0.4 8-24 160mg SC x ity of mL 00:00: 1 on Day [place] injection 00 1, then Medical 80mg SC x Branch 1 on day 15, then 40mg SC qWeek. lidocaine 5 Yes [id number] Apply 2g [facility] % ointment 8-24 to ity of 00:00: affected 00 areas BID [facility] PR[facility] adalimumab Yes [id number] Start [facility] 40 mg/0.4 8-24 160mg SC x ity of mL 00:00: 1 on Day [place] injection 00 1, then Medical 80mg SC x Branch 1 on day 15, then 40mg SC qWeek. lidocaine 5 Yes [id number] Apply 2g [facility] % ointment 8-24 to ity of 00:00: affected [place] 00 areas BID [facility] PR[facility] adalimumab Yes [id number] Start [facility] 40 mg/0.4 8-24 160mg SC x ity of mL 00:00: 1 on Day [place] injection 00 1, then Medical 80mg SC x Branch 1 on day 15, then 40mg SC qWeek. lidocaine 5 Yes [id number] Apply 2g [facility] % ointment 8-24 to ity of 00:00: affected [place] 00 areas BID [facility] PR[facility] adalimumab Yes [id number] Start [facility] 40 mg/0.4 8-24 160mg SC x ity of mL 00:00: 1 on Day [place] injection 00 1, then Medical 80mg SC x Branch 1 on day 15, then 40mg SC qWeek. lidocaine Yes [id number] Apply 2g [facility] % ointment 8-24 to ity of 00:00: affected 00 areas BID [facility] PR[facility] Branch adalimumab Yes [id number] Start [facility] 40 mg/0.4 8-24 160mg SC x ity of mL 00:00: 1 on Day [place] injection 00 1, then Medical 80mg SC x Branch 1 on day 15, then 40mg SC qWeek. lidocaine Yes [id number] Apply 2g [facility] % ointment 8-24 to ity of 00:00: affected [place] 00 areas BID [facility] PRN Branch adalimumab Yes [id number] Start [facility] 40 mg/0.4 8-24 160mg SC x ity of mL 00:00: 1 on Day [place] injection 00 1, then Medical 80mg SC x Branch 1 on day 15, then 40mg SC qWeek. lidocaine 5 Yes [id number] Apply 2g [facility] % ointment 8-24 to ity of 00:00: affected [place] 00 areas BID [facility] PR[facility] Branch adalimumab Yes [id number] Start [facility] 40 mg/0.4 8-24 160mg SC x ity of mL 00:00: 1 on Day [place] injection 00 1, then Medical 80mg SC x Branch 1 on day 15, then 40mg SC qWeek. lidocaine Yes [id number] Apply 2g [facility] % ointment 8-24 to ity of 00:00: affected [place] 00 areas BID [facility] PR[facility] Branch adalimumab Yes [id number] Start [facility] 40 mg/0.4 8-24 160mg SC x ity of mL 00:00: 1 on Day [place] injection 00 1, then Medical 80mg SC x Branch 1 on day 15, then 40mg SC qWeek. lidocaine Yes [id number] Apply 2g [facility] % ointment 8-24 to ity of 00:00: affected [place] 00 areas BID [facility] PR[facility] Branch adalimumab Yes [id number] Start [facility] 40 mg/0.4 8-24 160mg SC x ity of mL 00:00: 1 on Day [place] injection 00 , then Medical 80mg SC x Branch 1 on day 15, then 40mg SC qWeek. lidocaine Yes [id number] Apply 2g [facility] % ointment 8-24 to ity of 00:00: affected 00 areas BID [facility] PR[facility] Branch adalimumab Yes [id number] Start [facility] 40 mg/0.4 8-24 160mg SC x ity of mL 00:00: 1 on Day [place] injection 00 1, then Medical 80mg SC x Branch 1 on day 15, then 40mg SC qWeek. lidocaine Yes [id number] Apply 2g [facility] % ointment 8-24 to ity of 00:00: affected 00 areas BID [facility] PR[facility] adalimumab Yes [id number] Start [facility] 40 mg/0.4 8-24 160mg SC x ity of mL 00:00: 1 on Day [place] injection 00 1, then Medical 80mg SC x Branch 1 on day 15, then 40mg SC qWeek. lidocaine Yes [id number] Apply 2g [facility] % ointment 8-24 to ity of 00:00: affected 00 areas BID [facility] PR[facility] Branch adalimumab Yes [id number] Start [facility] 40 mg/0.4 8-24 160mg SC x ity of mL 00:00: 1 on Day [place] injection 00 1, then Medical 80mg SC x Branch 1 on day 15, then 40mg SC qWeek. lidocaine Yes [id number] Apply 2g [facility] % ointment 8-24 to ity of 00:00: affected [place] 00 areas BID [facility] PR[facility] Branch adalimumab Yes [id number] Start [facility] 40 mg/0.4 8-24 160mg SC x ity of mL 00:00: 1 on Day [place] injection 00 1, then Medical 80mg SC x Branch 1 on day 15, then 40mg SC qWeek. lidocaine Yes [id number] Apply 2g [facility] % ointment 8-24 to ity of 00:00: affected [place] 00 areas BID [facility] PRN Branch adalimumab Yes [id number] Start [facility] 40 mg/0.4 8-24 160mg SC x ity of mL 00:00: 1 on Day [place] injection 00 1, then Medical 80mg SC x Branch 1 on day 15, then 40mg SC qWeek. lidocaine Yes [id number] Apply 2g [facility] % ointment 8-24 to ity of 00:00: affected 00 areas BID [facility] PRN Branch adalimumab Yes [id number] Start [facility] 40 mg/0.4 8-24 160mg SC x ity of mL 00:00: 1 on Day [place] injection 00 1, then Medical 80mg SC x Branch 1 on day 15, then 40mg SC qWeek. lidocaine Yes [id number] Apply 2g [facility] % ointment 8-24 to ity of 00:00: affected [place] 00 areas BID [facility] PRN Branch adalimumab 2021- Yes [id number] Start [facility] 40 mg/0.4 8-24 160mg SC x ity of mL 00:00: 1 on Day [place] injection 00 1, then Medical 80mg SC x Branch 1 on day 15, then 40mg SC qWeek. lidocaine 5 Yes [id number] Apply 2g [facility] % ointment 8-24 to ity of 00:00: affected 00 areas BID [facility] PRN Branch adalimumab Yes [id number] Start [facility] 40 mg/0.4 8-24 160mg SC x ity of mL 00:00: 1 on Day [place] injection 00 1, then Medical 80mg SC x Branch 1 on day 15, then 40mg SC qWeek. lidocaine Yes [id number] Apply 2g [facility] % ointment 8-24 to ity of 00:00: affected [place] 00 areas BID [facility] PRN Branch adalimumab Yes [id number] Start [facility] 40 mg/0.4 8-24 160mg SC x ity of mL 00:00: 1 on Day [place] injection 00 1, then Medical 80mg SC x Branch 1 on day 15, then 40mg SC qWeek. lidocaine Yes [id number] Apply 2g [facility] % ointment 8-24 to ity of 00:00: affected [place] 00 areas BID Medical PRN Branch adalimumab Yes [id number] Start [facility] 40 mg/0.4 8-24 160mg SC x ity of mL 00:00: 1 on Day [place] injection 00 1, then Medical 80mg SC x Branch 1 on day 15, then 40mg SC qWeek. lidocaine Yes [id number] Apply 2g [facility] % ointment 8-24 to ity of 00:00: affected [place] 00 areas BID Medical PRN Branch adalimumab Yes [id number] Start [facility] 40 mg/0.4 8-24 160mg SC x ity of mL 00:00: 1 on Day [place] injection 00 1, then Medical 80mg SC x Branch 1 on day 15, then 40mg SC qWeek. lidocaine Yes [id number] Apply 2g [facility] % ointment 8-24 to ity of 00:00: affected [place] 00 areas BID Medical PRN Branch adalimumab 2021- Yes [id number] Start [facility] 40 mg/0.4 8-24 160mg SC x ity of mL 00:00: 1 on Day [place] injection 00 1, then Medical 80mg SC x Branch 1 on day 15, then 40mg SC qWeek. lidocaine 5 Yes [id number] Apply 2g [facility] % ointment 8-24 to ity of 00:00: affected 00 areas BID Medical PRN Branch adalimumab 2021- Yes [id number] Start [facility] 40 mg/0.4 8-24 160mg SC x ity of mL 00:00: 1 on Day [place] injection 00 1, then Medical 80mg SC x Branch 1 on day 15, then 40mg SC qWeek. lidocaine 5 Yes [id number] Apply 2g [facility] % ointment 8-24 to ity of 00:00: affected [place] 00 areas BID Medical PRN Branch adalimumab Yes [id number] Start [facility] 40 mg/0.4 8-24 160mg SC x ity of mL 00:00: 1 on Day [place] injection 00 1, then Medical 80mg SC x Branch 1 on day 15, then 40mg SC qWeek. lidocaine Yes [id number] Apply 2g [facility] % ointment 8-24 to ity of 00:00: affected 00 areas BID [facility] PRN Branch adalimumab Yes [id number] Start [facility] 40 mg/0.4 8-24 160mg SC x ity of mL 00:00: 1 on Day [place] injection 00 1, then Medical 80mg SC x Branch 1 on day 15, then 40mg SC qWeek. lidocaine Yes [id number] Apply 2g [facility] % ointment 8-24 to ity of 00:00: affected 00 areas BID [facility] PRN Branch adalimumab Yes [id number] Start [facility] 40 mg/0.4 8-24 160mg SC x ity of mL 00:00: 1 on Day [place] injection 00 1, then Medical 80mg SC x Branch 1 on day 15, then 40mg SC qWeek. lidocaine Yes [id number] Apply 2g [facility] % ointment 8-24 to ity of 00:00: affected 00 areas BID [facility] PRN Branch adalimumab 2021- Yes [id number] Start [facility] 40 mg/0.4 8-24 160mg SC x ity of mL 00:00: 1 on Day [place] injection 00 1, then Medical 80mg SC x Branch 1 on day 15, then 40mg SC qWeek. lidocaine Yes [id number] Apply 2g [facility] % ointment 8-24 to ity of 00:00: affected [place] 00 areas BID [facility] PRN Branch adalimumab 2021- Yes [id number] Start [facility] 40 mg/0.4 8-24 160mg SC x ity of mL 00:00: 1 on Day [place] injection 00 1, then Medical 80mg SC x Branch 1 on day 15, then 40mg SC qWeek. lidocaine Yes [id number] Apply 2g [facility] % ointment 8-24 to ity of 00:00: affected [place] 00 areas BID [facility] PRN Branch adalimumab 2021- Yes [id number] Start [facility] 40 mg/0.4 8-24 160mg SC x ity of mL 00:00: 1 on Day [place] injection 00 1, then Medical 80mg SC x Branch 1 on day 15, then 40mg SC qWeek. lidocaine 5 Yes [id number] Apply 2g [facility] % ointment 8-24 to ity of 00:00: affected 00 areas BID [facility] PRN Branch adalimumab Yes [id number] Start [facility] 40 mg/0.4 8-24 160mg SC x ity of mL 00:00: 1 on Day [place] injection 00 1, then Medical 80mg SC x Branch 1 on day 15, then 40mg SC qWeek. lidocaine Yes [id number] Apply 2g [facility] % ointment 8-24 to ity of 00:00: affected 00 areas BID [facility] PRN Branch adalimumab Yes [id number] Start [facility] 40 mg/0.4 8-24 160mg SC x ity of mL 00:00: 1 on Day [place] injection 00 1, then Medical 80mg SC x Branch 1 on day 15, then 40mg SC qWeek. lidocaine Yes [id number] Apply 2g [facility] % ointment 8-24 to ity of 00:00: affected 00 areas BID [facility] PRN Branch adalimumab 2021- Yes [id number] Start [facility] 40 mg/0.4 8-24 160mg SC x ity of mL 00:00: 1 on Day [place] injection 00 1, then Medical 80mg SC x Branch 1 on day 15, then 40mg SC qWeek. lidocaine 5 2021- Yes [id number] Apply 2g [facility] % ointment 8-24 to ity of 00:00: affected [place] 00 areas BID Medical PRN Branch adalimumab 2021- Yes [id number] Start [facility] 40 mg/0.4 8-24 160mg SC x ity of mL 00:00: 1 on Day [place] injection 00 1, then Medical 80mg SC x Branch 1 on day 15, then 40mg SC qWeek. lidocaine 2021- Yes [id number] Apply 2g [facility] % ointment 8-24 to ity of 00:00: affected [place] 00 areas BID Medical PRN Branch adalimumab 2021- Yes [id number] Start [facility] 40 mg/0.4 8-24 160mg SC x ity of mL 00:00: 1 on Day [place] injection 00 1, then Medical 80mg SC x Branch 1 on day 15, then 40mg SC qWeek. lidocaine 5 Yes [id number] Apply 2g [facility] % ointment 8-24 to ity of 00:00: affected 00 areas BID [facility] PRN Branch adalimumab Yes [id number] Start [facility] 40 mg/0.4 8-24 160mg SC x ity of mL 00:00: 1 on Day [place] injection 00 1, then Medical 80mg SC x Branch 1 on day 15, then 40mg SC qWeek. lidocaine Yes [id number] Apply 2g [facility] % ointment 8-24 to ity of 00:00: affected 00 areas BID [facility] PR[facility] adalimumab Yes [id number] Start [facility] 40 mg/0.4 8-24 160mg SC x ity of mL 00:00: 1 on Day [place] injection 00 1, then Medical 80mg SC x Branch 1 on day 15, then 40mg SC qWeek. lidocaine Yes [id number] Apply 2g [facility] % ointment 8-24 to ity of 00:00: affected 00 areas BID [facility] PR[facility] Branch adalimumab 2021- Yes [id number] Start [facility] 40 mg/0.4 8-24 160mg SC x ity of mL 00:00: 1 on Day [place] injection 00 1, then Medical 80mg SC x Branch 1 on day 15, then 40mg SC qWeek. lidocaine 5 Yes [id number] Apply 2g [facility] % ointment 8-24 to ity of 00:00: affected [place] 00 areas BID Medical PRN Branch adalimumab 2021- Yes [id number] Start [facility] 40 mg/0.4 8-24 160mg SC x ity of mL 00:00: 1 on Day [place] injection 00 1, then Medical 80mg SC x Branch 1 on day 15, then 40mg SC qWeek. lidocaine 5 2021- Yes [id number] Apply 2g [facility] % ointment 8-24 to ity of 00:00: affected [place] 00 areas BID Medical PRN Branch adalimumab 2021-0 Yes [id number] Start [facility] 40 mg/0.4 8-24 160mg SC x ity of mL 00:00: 1 on Day [place] injection 00 1, then Medical 80mg SC x Branch 1 on day 15, then 40mg SC qWeek. lidocaine 5 2021- Yes [id number] Apply 2g [facility] % ointment 8-24 to ity of 00:00: affected [place] 00 areas BID Medical PRN Branch adalimumab 2021- Yes [id number] Start [facility] 40 mg/0.4 8-24 160mg SC x ity of mL 00:00: 1 on Day [place] injection 00 1, then Medical 80mg SC x Branch 1 on day 15, then 40mg SC qWeek. lidocaine Yes [id number] Apply 2g [facility] % ointment 8-24 to ity of 00:00: affected [place] 00 areas BID Medical PRN Branch adalimumab 2021- Yes [id number] Start Un [facility] 40 mg/0.4 8-24 160mg SC x ity of mL 00:00: 1 on Day [place] injection 00 1, then Medical 80mg SC x Branch 1 on day 15, then 40mg SC qWeek. lidocaine 2021- Yes [id number] Apply 2g [facility] % ointment 8-24 to ity of 00:00: affected 00 areas BID [facility] PRN Branch adalimumab 2021-0 Yes [id number] Start [facility] 40 mg/0.4 8-24 160mg SC x ity of mL 00:00: 1 on Day [place] injection 00 1, then Medical 80mg SC x Branch 1 on day 15, then 40mg SC qWeek. lidocaine 5 2021- Yes [id number] Apply 2g [facility] % ointment 8-24 to ity of 00:00: affected [place] 00 areas BID Medical PRN Branch adalimumab 2021-0 Yes [id number] Start Un [facility] 40 mg/0.4 8-24 160mg SC x ity of mL 00:00: 1 on Day [place] injection 00 1, then Medical 80mg SC x Branch 1 on day 15, then 40mg SC qWeek. lidocaine 5 Yes [id number] Apply 2g [facility] % ointment 8-24 to ity of 00:00: affected [place] 00 areas BID Medical PRN Branch adalimumab Yes [id number] Start Un [facility] 40 mg/0.4 8-24 160mg SC x ity of mL 00:00: 1 on Day [place] injection 00 1, then Medical 80mg SC x Branch 1 on day 15, then 40mg SC qWeek. lidocaine 5 Yes [id number] Apply 2g [facility] % ointment 8-24 to ity of 00:00: affected 00 areas BID Medical PRN Branch adalimumab Yes [id number] Start [facility] 40 mg/0.4 8-24 160mg SC x ity of mL 00:00: 1 on Day [place] injection 00 1, then Medical 80mg SC x Branch 1 on day 15, then 40mg SC qWeek. lidocaine 5 Yes [id number] Apply 2g [facility] % ointment 8-24 to ity of 00:00: affected [place] 00 areas BID Medical PRN Branch amitriptyli 2021- No [id number] 10mg Take 1 [facility] ne 10 mg 8-24 10-13 tablet by ity o f tablet 00:00: 00:00 mouth at [place] 00 :00 bedtime. Medical Branch tiZANidine 2021- No [id number] 2mg Take 1 [facility] 2 mg tablet 8-24 10-13 tablet by it y of 00:00: 00:00 mouth [place] 00 :00 every 8 Medical (eight) Branch hours as needed (muscle spasms). amitriptyli 2021- No [id number] 10mg Take 1 [facility] ne 10 mg 8-24 10-13 tablet by ity o f tablet 00:00: 00:00 mouth at [place] 00 :00 bedtime. Medical Branch tiZANidine 2021- No [id number] 2mg Take 1 [facility] 2 mg tablet 8-24 10-13 tablet by it y of 00:00: 00:00 mouth [place] 00 :00 every 8 Medical (eight) Branch hours as needed (muscle spasms). LOSARTAN-HY 2022-0 Yes [id number] TAKE ONE [facility] DROCHLOROTH 8-12 (1) ity of IAZIDE 00:00: TABLET(S) [place] 50-12.5 mg 00 BY MOUTH Medic al per tablet ONCE A Branch DAY. LOSARTAN-HY 2021-0 Yes [id number] TAKE ONE [facility] DROCHLOROTH 8-12 (1) ity of IAZIDE 00:00: TABLET(S) [place] 50-12.5 mg 00 BY MOUTH Medic al per tablet ONCE A Branch DAY. LOSARTAN-HY 2021-0 Yes [id number] TAKE ONE [facility] DROCHLOROTH 8-12 (1) ity of IAZIDE 00:00: TABLET(S) [place] 50-12.5 mg 00 BY MOUTH Medic al per tablet ONCE A Branch DAY. LOSARTAN-HY 2021-0 Yes [id number] TAKE ONE [facility] DROCHLOROTH 8-12 (1) ity of IAZIDE 00:00: TABLET(S) [place] 50-12.5 mg 00 BY MOUTH Medic al per tablet ONCE A Branch DAY. LOSARTAN-HY 2021-0 Yes [id number] TAKE ONE [facility] DROCHLOROTH 8-12 (1) ity of IAZIDE 00:00: TABLET(S) [place] 50-12.5 mg 00 BY MOUTH Medic al per tablet ONCE A Branch DAY. LOSARTAN-HY 2021-0 Yes [id number] TAKE ONE [facility] DROCHLOROTH 8-12 (1) ity of IAZIDE 00:00: TABLET(S) [place] 50-12.5 mg 00 BY MOUTH Medic al per tablet ONCE A Branch DAY. LOSARTAN-HY 2021-0 Yes [id number] TAKE ONE [facility] DROCHLOROTH 8-12 (1) ity of IAZIDE 00:00: TABLET(S) [place] 50-12.5 mg 00 BY MOUTH Medic al per tablet ONCE A Branch DAY. LOSARTAN-HY 2021-0 Yes [id number] TAKE ONE [facility] DROCHLOROTH 8-12 (1) ity of IAZIDE 00:00: TABLET(S) [place] 50-12.5 mg 00 BY MOUTH Medic al per tablet ONCE A Branch DAY. LOSARTAN-HY 2021-0 2022- No [id number] TAKE ONE [facility] DROCHLOROTH 8-12 10-19 (1) ity of IAZIDE 00:00: 00:00 TABLET(S) [place] 50-12.5 mg 00 :00 BY MOUTH Medic al per tablet ONCE A Branch DAY. FLUoxetine Yes [id number] 20mg Take 1 U nivers 20 mg 6-17 capsule by ity of capsule 00:00: mouth [place] 00 daily. [facility] FLUoxetine Yes [id number] 20mg Take 1 U nivers 20 mg 6-17 capsule by ity of capsule 00:00: mouth [place] 00 daily. [facility] FLUoxetine 0 Yes [id number] 20mg Take 1 U nivers 20 mg 6-17 capsule by ity of capsule 00:00: mouth [place] 00 daily. [facility] FLUoxetine 0 Yes [id number] 20mg Take 1 U nivers 20 mg 6-17 capsule by ity of capsule 00:00: mouth [place] 00 daily. [facility] FLUoxetine 0 Yes [id number] 20mg Take 1 U nivers 20 mg 6-17 capsule by ity of capsule 00:00: mouth [place] 00 daily. [facility] FLUoxetine Yes [id number] 20mg Take 1 U nivers 20 mg 6-17 capsule by ity of capsule 00:00: mouth [place] 00 daily. [facility] FLUoxetine 202- No [id number] 20mg Take 1 [facility] 20 mg 6-17 10-13 capsule by ity of capsule 00:00: 00:00 mouth [place] 00 :00 daily. [facility] FLUoxetine 2021- No [id number] 20mg Take 1 [facility] 20 mg 6-17 10-13 capsule by ity of capsule 00:00: 00:00 mouth [place] 00 :00 daily. [facility] PANTOPRAZOL Yes [id number] TAKE ONE [facility] E 20 mg EC 4-08 (1) ity of tablet 00:00: TABLET(S) [place] 00 BY [facility] ONCE A Branch DAY. PANTOPRAZOL 0 Yes [id number] TAKE ONE [facility] E 20 mg EC 4-08 (1) ity of tablet 00:00: TABLET(S) [place] 00 BY [facility] ONCE A Branch DAY. PANTOPRAZOL 0 Yes [id number] TAKE ONE [facility] E 20 mg EC 4-08 (1) ity of tablet 00:00: TABLET(S) [place] 00 BY [facility] ONCE A Branch DAY. PANTOPRAZOL 2021-0 Yes [id number] TAKE ONE [facility] E 20 mg EC 4-08 (1) ity of tablet 00:00: TABLET(S) [place] 00 BY MOUTH Medical ONCE A Branch DAY. PANTOPRAZOL 2022-0 Yes [id number] TAKE ONE [facility] E 20 mg EC 4-08 (1) ity of tablet 00:00: TABLET(S) [place] 00 BY MOUTH Medical ONCE A Branch DAY. PANTOPRAZOL 2022-0 Yes [id number] TAKE ONE [facility] E 20 mg EC 4-08 (1) ity of tablet 00:00: TABLET(S) [place] 00 BY MOUTH Medical ONCE A Branch DAY. PANTOPRAZOL 2022-0 Yes [id number] TAKE ONE [facility] E 20 mg EC 4-08 (1) ity of tablet 00:00: TABLET(S) [place] 00 BY MOUTH Medical ONCE A Branch DAY. PANTOPRAZOL 2022-0 Yes [id number] TAKE ONE [facility] E 20 mg EC 4-08 (1) ity of tablet 00:00: TABLET(S) [place] 00 BY MOUTH Medical ONCE A Branch DAY. PANTOPRAZOL 2022-0 Yes [id number] TAKE ONE [facility] E 20 mg EC 4-08 (1) ity of tablet 00:00: TABLET(S) [place] 00 BY MOUTH Medical ONCE A Branch DAY. PANTOPRAZOL 2022-0 Yes [id number] TAKE ONE [facility] E 20 mg EC 4-08 (1) ity of tablet 00:00: TABLET(S) [place] 00 BY MOUTH Medical ONCE A Branch DAY. PANTOPRAZOL 2022-0 Yes [id number] TAKE ONE [facility] E 20 mg EC 4-08 (1) ity of tablet 00:00: TABLET(S) [place] 00 BY MOUTH Medical ONCE A Branch DAY. PANTOPRAZOL 2022-0 Yes [id number] TAKE ONE [facility] E 20 mg EC 4-08 (1) ity of tablet 00:00: TABLET(S) [place] 00 BY MOUTH Medical ONCE A Branch DAY. PANTOPRAZOL 2022-0 Yes [id number] TAKE ONE [facility] E 20 mg EC 4-08 (1) ity of tablet 00:00: TABLET(S) [place] 00 BY MOUTH Medical ONCE A Branch DAY. PANTOPRAZOL 2022-0 Yes [id number] TAKE ONE [facility] E 20 mg EC 4-08 (1) ity of tablet 00:00: TABLET(S) [place] 00 BY MOUTH Medical ONCE A Branch DAY. PANTOPRAZOL 2022-0 Yes [id number] TAKE ONE [facility] E 20 mg EC 4-08 (1) ity of tablet 00:00: TABLET(S) [place] 00 BY MOUTH Medical ONCE A Branch DAY. PANTOPRAZOL 2021- No [id number] TAKE ONE [facility] E 20 mg EC 07-23 (1) ity of tablet 00:00: 00:00 TABLET(S) [place] 00 :00 BY MOUTH Medical ONCE A Branch DAY. dulaglutide Yes [id number] 1.5mg inject 1.5 [facility] (TRULICITY) 3-09 mg under ity of 1.5 mg/0.5 00:00: the skin [place] mL PnIj 00 weekly. Medical Branch dulaglutide Yes [id number] 1.5mg inject 1.5 [facility] (TRULICITY) 3-09 mg under ity of 1.5 mg/0.5 00:00: the skin [place] mL PnIj 00 weekly. Medical Branch dulaglutide Yes [id number] 1.5mg inject 1.5 [facility] (TRULICITY) 3-09 mg under ity of 1.5 mg/0.5 00:00: the skin [place] mL PnIj 00 weekly. Medical Branch dulaglutide Yes [id number] 1.5mg inject 1.5 [facility] (TRULICITY) 3-09 mg under ity of 1.5 mg/0.5 00:00: the skin [place] mL PnIj 00 weekly. Medical Branch dulaglutide Yes [id number] 1.5mg inject 1.5 [facility] (TRULICITY) 3-09 mg under ity of 1.5 mg/0.5 00:00: the skin [place] mL PnIj 00 weekly. Medical Branch dulaglutide Yes [id number] 1.5mg inject 1.5 [facility] (TRULICITY) 3-09 mg under ity of 1.5 mg/0.5 00:00: the skin [place] mL PnIj 00 weekly. [facility] Branch dulaglutide 2021- No [id number] 1.5mg inject 1.5 Univers (TRULICITY) 3-09 10-13 mg under ity of 1.5 mg/0.5 00:00: 00:00 [place] skin [place] mL PnIj 00 :00 weekly. Medical Branch dulaglutide 2021- No [id number] 1.5mg inject 1.5 Univers (TRULICITY) 06-23 10-13 mg under ity of 1.5 mg/0.5 00:00: 00:00 the skin [place] mL PnIj 00 :00 weekly. Medical Branch dulaglutide 2021- No [id number] .75mg inject Univers (TRULICITY) 06-23 09-12 0.75 mg ity of 0.75 mg/0.5 00:00: 00:00 under the [place] mL PnIj 00 :00 skin Medical weekly. Branch vitamin C 2020-0 Yes [id number] 1000mg Take 1 [facility] with jacob 9-16 tablet by ity o f hips 00:00: mouth [place] (VITAMIN C) 00 daily. Medica l 1,000 mg Branch tablet Cholecalcif 2020-0 Yes [id number] 5000U Take 1 [facility] david, 9-16 tablet by ity of Vitamin D3, 00:00: mouth [place] (VITAMIN 00 daily. Medical D3) 125 mcg Branch (5,000 unit) tablet vitamin C 2020-0 Yes [id number] 1000mg Take 1 [facility] with jacob 9-16 tablet by ity o f hips 00:00: mouth [place] (VITAMIN C) 00 daily. Medica l 1,000 mg Branch tablet Cholecalcif 2020-0 Yes [id number] 5000U Take 1 [facility]id, 9-16 tablet by ity of Vitamin D3, 00:00: mouth [place] (VITAMIN 00 daily. Medical D3) 125 mcg Branch (5,000 unit) tablet vitamin C 2020-0 Yes [id number] 1000mg Take 1 [facility] with jacob 9-16 tablet by ity o f hips 00:00: mouth [place] (VITAMIN C) 00 daily. Medica l 1,000 mg Branch tablet Cholecalcif 2020-0 Yes [id number] 5000U Take 1 [facility], 9-16 tablet by ity of Vitamin D3, 00:00: mouth [place] (VITAMIN 00 daily. Medical D3) 125 mcg Branch (5,000 unit) tablet vitamin C 2020-0 Yes [id number] 1000mg Take 1 [facility] with jacob 9-16 tablet by ity o f hips 00:00: mouth [place] (VITAMIN C) 00 daily. Medica l 1,000 mg Branch tablet Cholecalcif 2020-0 Yes [id number] 5000U Take 1 [facility], 9-16 tablet by ity of Vitamin D3, 00:00: mouth [place] (VITAMIN 00 daily. Medical D3) 125 mcg Branch (5,000 unit) tablet vitamin C 2020-0 Yes [id number] 1000mg Take 1 [facility] with jacob 9-16 tablet by ity o f hips 00:00: mouth [place] (VITAMIN C) 00 daily. Medica l 1,000 mg Branch tablet Cholecalcif 2020-0 Yes [id number] 5000U Take 1 [facility], 9-16 tablet by ity of Vitamin D3, 00:00: mouth [place] (VITAMIN 00 daily. Medical D3) 125 mcg Branch (5,000 unit) tablet vitamin C 2020-0 Yes [id number] 1000mg Take 1 [facility] with jacob 9-16 tablet by ity o f hips 00:00: mouth [place] (VITAMIN C) 00 daily. Medica l 1,000 mg Branch tablet Cholecalcif 2020-0 Yes [id number] 5000U Take 1 [facility], 9-16 tablet by ity of Vitamin D3, 00:00: mouth [place] (VITAMIN 00 daily. Medical D3) 125 mcg Branch (5,000 unit) tablet vitamin C 2020-0 Yes [id number] 1000mg Take 1 [facility] with jacob 9-16 tablet by ity o f hips 00:00: mouth [place] (VITAMIN C) 00 daily. Medica l 1,000 mg Branch tablet Cholecalcif 2020-0 Yes [id number] 5000U Take 1 [facility], 9-16 tablet by ity of Vitamin D3, 00:00: mouth [place] (VITAMIN 00 daily. Medical D3) 125 mcg Branch (5,000 unit) tablet vitamin C 2020-0 Yes [id number] 1000mg Take 1 [facility] with jacob 9-16 tablet by ity o f hips 00:00: mouth [place] (VITAMIN C) 00 daily. Medica l 1,000 mg Branch tablet Cholecalcif 2020-0 Yes [id number] 5000U Take 1 [facility], 9-16 tablet by ity of Vitamin D3, 00:00: mouth [place] (VITAMIN 00 daily. Medical D3) 125 mcg Branch (5,000 unit) tablet vitamin C 2020-0 Yes [id number] 1000mg Take 1 [facility] with jacob 9-16 tablet by ity o f hips 00:00: mouth [place] (VITAMIN C) 00 daily. Medica l 1,000 mg Branch tablet Cholecalcif 2020-0 Yes [id number] 5000U Take 1 [facility], 9-16 tablet by ity of Vitamin D3, 00:00: mouth [place] (VITAMIN 00 daily. Medical D3) 125 mcg Branch (5,000 unit) tablet vitamin C 2020-0 Yes [id number] 1000mg Take 1 [facility] with jacob 9-16 tablet by ity o f hips 00:00: mouth [place] (VITAMIN C) 00 daily. Medica l 1,000 mg Branch tablet Cholecalcif 2020-0 Yes [id number] 5000U Take 1 [facility], 9-16 tablet by ity of Vitamin D3, 00:00: mouth [place] (VITAMIN 00 daily. Medical D3) 125 mcg Branch (5,000 unit) tablet vitamin C 2020-0 Yes [id number] 1000mg Take 1 [facility] with jacob 9-16 tablet by ity o f hips 00:00: mouth [place] (VITAMIN C) 00 daily. Medica l 1,000 mg Branch tablet Cholecalcif 2020-0 Yes [id number] 5000U Take 1 [facility], 9-16 tablet by ity of Vitamin D3, 00:00: mouth [place] (VITAMIN 00 daily. Medical D3) 125 mcg Branch (5,000 unit) tablet vitamin C 2020-0 Yes [id number] 1000mg Take 1 [facility] with jacob 9-16 tablet by ity o f hips 00:00: mouth [place] (VITAMIN C) 00 daily. Medica l 1,000 mg Branch tablet Cholecalcif 2020-0 Yes [id number] 5000U Take 1 [facility], 9-16 tablet by ity of Vitamin D3, 00:00: mouth [place] (VITAMIN 00 daily. Medical D3) 125 mcg Branch (5,000 unit) tablet vitamin C 2020-0 Yes [id number] 1000mg Take 1 [facility] with jacob 9-16 tablet by ity o f hips 00:00: mouth [place] (VITAMIN C) 00 daily. Medica l 1,000 mg Branch tablet Cholecalcif 2020-0 Yes [id number] 5000U Take 1 [facility], 9-16 tablet by ity of Vitamin D3, 00:00: mouth [place] (VITAMIN 00 daily. Medical D3) 125 mcg Branch (5,000 unit) tablet vitamin C 2020-0 Yes [id number] 1000mg Take 1 [facility] with jacob 9-16 tablet by ity o f hips 00:00: mouth [place] (VITAMIN C) 00 daily. Medica l 1,000 mg Branch tablet Cholecalcif 2020-0 Yes [id number] 5000U Take 1 [facility], 9-16 tablet by ity of Vitamin D3, 00:00: mouth [place] (VITAMIN 00 daily. Medical D3) 125 mcg Branch (5,000 unit) tablet vitamin C 2020-0 Yes [id number] 1000mg Take 1 [facility] with jacob 9-16 tablet by ity o f hips 00:00: mouth [place] (VITAMIN C) 00 daily. Medica l 1,000 mg Branch tablet Cholecalcif 2020-0 Yes [id number] 5000U Take 1 [facility], 9-16 tablet by ity of Vitamin D3, 00:00: mouth [place] (VITAMIN 00 daily. Medical D3) 125 mcg Branch (5,000 unit) tablet vitamin C 2020-0 Yes [id number] 1000mg Take 1 [facility] with jacob 9-16 tablet by ity o f hips 00:00: mouth [place] (VITAMIN C) 00 daily. Medica l 1,000 mg Branch tablet Cholecalcif 2020-0 Yes [id number] 5000U Take 1 [facility], 9-16 tablet by ity of Vitamin D3, 00:00: mouth [place] (VITAMIN 00 daily. Medical D3) 125 mcg Branch (5,000 unit) tablet vitamin C 2020-0 Yes [id number] 1000mg Take 1 [facility] with jacob 9-16 tablet by ity o f hips 00:00: mouth [place] (VITAMIN C) 00 daily. Medica l 1,000 mg Branch tablet Cholecalcif 2020-0 Yes [id number] 5000U Take 1 [facility], 9-16 tablet by ity of Vitamin D3, 00:00: mouth [place] (VITAMIN 00 daily. Medical D3) 125 mcg Branch (5,000 unit) tablet vitamin C 2020-0 Yes [id number] 1000mg Take 1 [facility] with jacob 9-16 tablet by ity o f hips 00:00: mouth [place] (VITAMIN C) 00 daily. Medica l 1,000 mg Branch tablet Cholecalcif 2020-0 Yes [id number] 5000U Take 1 [facility], 9-16 tablet by ity of Vitamin D3, 00:00: mouth [place] (VITAMIN 00 daily. Medical D3) 125 mcg Branch (5,000 unit) tablet vitamin C 2020-0 Yes [id number] 1000mg Take 1 [facility] with jacob 9-16 tablet by ity o f hips 00:00: mouth [place] (VITAMIN C) 00 daily. Medica l 1,000 mg Branch tablet Cholecalcif 2020-0 Yes [id number] 5000U Take 1 [facility], 9-16 tablet by ity of Vitamin D3, 00:00: mouth [place] (VITAMIN 00 daily. Medical D3) 125 mcg Branch (5,000 unit) tablet vitamin C 2020-0 Yes [id number] 1000mg Take 1 [facility] with jacob 9-16 tablet by ity o f hips 00:00: mouth [place] (VITAMIN C) 00 daily. Medica l 1,000 mg Branch tablet Cholecalcif 2020-0 Yes [id number] 5000U Take 1 [facility], 9-16 tablet by ity of Vitamin D3, 00:00: mouth [place] (VITAMIN 00 daily. Medical D3) 125 mcg Branch (5,000 unit) tablet vitamin C 2020-0 Yes [id number] 1000mg Take 1 [facility] with jacob 9-16 tablet by ity o f hips 00:00: mouth [place] (VITAMIN C) 00 daily. Medica l 1,000 mg Branch tablet Cholecalcif 2020-0 Yes [id number] 5000U Take 1 [facility], 9-16 tablet by ity of Vitamin D3, 00:00: mouth [place] (VITAMIN 00 daily. Medical D3) 125 mcg Branch (5,000 unit) tablet vitamin C 2020-0 Yes [id number] 1000mg Take 1 [facility] with jacob 9-16 tablet by ity o f hips 00:00: mouth [place] (VITAMIN C) 00 daily. Medica l 1,000 mg Branch tablet Cholecalcif 2020-0 Yes [id number] 5000U Take 1 [facility], 9-16 tablet by ity of Vitamin D3, 00:00: mouth [place] (VITAMIN 00 daily. Medical D3) 125 mcg Branch (5,000 unit) tablet vitamin C 2020-0 Yes [id number] 1000mg Take 1 [facility] with jacob 9-16 tablet by ity o f hips 00:00: mouth [place] (VITAMIN C) 00 daily. Medica l 1,000 mg Branch tablet Cholecalcif 2020-0 Yes [id number] 5000U Take 1 [facility], 9-16 tablet by ity of Vitamin D3, 00:00: mouth [place] (VITAMIN 00 daily. Medical D3) 125 mcg Branch (5,000 unit) tablet vitamin C 2020-0 Yes [id number] 1000mg Take 1 [facility] with jacob 9-16 tablet by ity o f hips 00:00: mouth [place] (VITAMIN C) 00 daily. Medica l 1,000 mg Branch tablet Cholecalcif 2020-0 Yes [id number] 5000U Take 1 [facility]id, 9-16 tablet by ity of Vitamin D3, 00:00: mouth [place] (VITAMIN 00 daily. Medical D3) 125 mcg Branch (5,000 unit) tablet vitamin C 2020-0 Yes [id number] 1000mg Take 1 [facility] with jacob 9-16 tablet by ity o f hips 00:00: mouth [place] (VITAMIN C) 00 daily. Medica l 1,000 mg Branch tablet Cholecalcif 2020-0 Yes [id number] 5000U Take 1 [facility], 9-16 tablet by ity of Vitamin D3, 00:00: mouth [place] (VITAMIN 00 daily. Medical D3) 125 mcg Branch (5,000 unit) tablet vitamin C 2020-0 Yes [id number] 1000mg Take 1 [facility] with jacob 9-16 tablet by ity o f hips 00:00: mouth [place] (VITAMIN C) 00 daily. Medica l 1,000 mg Branch tablet Cholecalcif 2020-0 Yes [id number] 5000U Take 1 [facility], 9-16 tablet by ity of Vitamin D3, 00:00: mouth [place] (VITAMIN 00 daily. Medical D3) 125 mcg Branch (5,000 unit) tablet vitamin C 2020-0 Yes [id number] 1000mg Take 1 [facility] with jacob 9-16 tablet by ity o f hips 00:00: mouth [place] (VITAMIN C) 00 daily. Medica l 1,000 mg Branch tablet Cholecalcif 2020-0 Yes [id number] 5000U Take 1 [facility], 9-16 tablet by ity of Vitamin D3, 00:00: mouth [place] (VITAMIN 00 daily. Medical D3) 125 mcg Branch (5,000 unit) tablet vitamin C 2020-0 Yes [id number] 1000mg Take 1 [facility] with jacob 9-16 tablet by ity o f hips 00:00: mouth [place] (VITAMIN C) 00 daily. Medica l 1,000 mg Branch tablet Cholecalcif 2020-0 Yes [id number] 5000U Take 1 [facility], 9-16 tablet by ity of Vitamin D3, 00:00: mouth [place] (VITAMIN 00 daily. Medical D3) 125 mcg Branch (5,000 unit) tablet vitamin C 2020-0 Yes [id number] 1000mg Take 1 [facility] with jacob 9-16 tablet by ity o f hips 00:00: mouth [place] (VITAMIN C) 00 daily. Medica l 1,000 mg Branch tablet Cholecalcif 2020-0 Yes [id number] 5000U Take 1 [facility], 9-16 tablet by ity of Vitamin D3, 00:00: mouth [place] (VITAMIN 00 daily. Medical D3) 125 mcg Branch (5,000 unit) tablet vitamin C 2020-0 Yes [id number] 1000mg Take 1 Univers with jacob 9-16 tablet by ity o f hips 00:00: mouth [place] (VITAMIN C) 00 daily. Medica l 1,000 mg Branch tablet Cholecalcif 2020-0 Yes [id number] 5000U Take 1 [facility], 9-16 tablet by ity of Vitamin D3, 00:00: mouth [place] (VITAMIN 00 daily. Medical D3) 125 mcg Branch (5,000 unit) tablet vitamin C 2020-0 Yes [id number] 1000mg Take 1 Univers with jacob 9-16 tablet by ity o f hips 00:00: mouth [place] (VITAMIN C) 00 daily. Medica l 1,000 mg Branch tablet Cholecalcif 2020-0 Yes [id number] 5000U Take 1 [facility], 9-16 tablet by ity of Vitamin D3, 00:00: mouth [place] (VITAMIN 00 daily. Medical D3) 125 mcg Branch (5,000 unit) tablet vitamin C 2020-0 Yes [id number] 1000mg Take 1 Univers with jacob 9-16 tablet by ity o f hips 00:00: mouth [place] (VITAMIN C) 00 daily. Medica l 1,000 mg Branch tablet Cholecalcif 2020-0 Yes [id number] 5000U Take 1 [facility], 9-16 tablet by ity of Vitamin D3, 00:00: mouth [place] (VITAMIN 00 daily. Medical D3) 125 mcg Branch (5,000 unit) tablet vitamin C 2020-0 Yes [id number] 1000mg Take 1 [facility] with jacob 9-16 tablet by ity o f hips 00:00: mouth [place] (VITAMIN C) 00 daily. Medica l 1,000 mg Branch tablet Cholecalcif 2020-0 Yes [id number] 5000U Take 1 [facility], 9-16 tablet by ity of Vitamin D3, 00:00: mouth [place] (VITAMIN 00 daily. Medical D3) 125 mcg Branch (5,000 unit) tablet vitamin C 2020-0 Yes [id number] 1000mg Take 1 [facility] with jacob 9-16 tablet by ity o f hips 00:00: mouth [place] (VITAMIN C) 00 daily. Medica l 1,000 mg Branch tablet Cholecalcif 2020-0 Yes [id number] 5000U Take 1 [facility], 9-16 tablet by ity of Vitamin D3, 00:00: mouth [place] (VITAMIN 00 daily. Medical D3) 125 mcg Branch (5,000 unit) tablet vitamin C 2020-0 Yes [id number] 1000mg Take 1 [facility] with jacob 9-16 tablet by ity o f hips 00:00: mouth [place] (VITAMIN C) 00 daily. Medica l 1,000 mg Branch tablet Cholecalcif 2020-0 Yes [id number] 5000U Take 1 [facility], 9-16 tablet by ity of Vitamin D3, 00:00: mouth [place] (VITAMIN 00 daily. Medical D3) 125 mcg Branch (5,000 unit) tablet vitamin C 2020-0 Yes [id number] 1000mg Take 1 [facility] with jacob 9-16 tablet by ity o f hips 00:00: mouth [place] (VITAMIN C) 00 daily. Medica l 1,000 mg Branch tablet Cholecalcif 2020-0 Yes [id number] 5000U Take 1 [facility], 9-16 tablet by ity of Vitamin D3, 00:00: mouth [place] (VITAMIN 00 daily. Medical D3) 125 mcg Branch (5,000 unit) tablet vitamin C 2020-0 Yes [id number] 1000mg Take 1 [facility] with jacob 9-16 tablet by ity o f hips 00:00: mouth [place] (VITAMIN C) 00 daily. Medica l 1,000 mg Branch tablet Cholecalcif 2020-0 Yes [id number] 5000U Take 1 [facility], 9-16 tablet by ity of Vitamin D3, 00:00: mouth [place] (VITAMIN 00 daily. Medical D3) 125 mcg Branch (5,000 unit) tablet vitamin C 2020-0 Yes [id number] 1000mg Take 1 [facility] with jacob 9-16 tablet by ity o f hips 00:00: mouth [place] (VITAMIN C) 00 daily. Medica l 1,000 mg Branch tablet Cholecalcif 2020-0 Yes [id number] 5000U Take 1 [facility], 9-16 tablet by ity of Vitamin D3, 00:00: mouth [place] (VITAMIN 00 daily. Medical D3) 125 mcg Branch (5,000 unit) tablet vitamin C 2020-0 Yes [id number] 1000mg Take 1 [facility] with jacob 9-16 tablet by ity o f hips 00:00: mouth [place] (VITAMIN C) 00 daily. Medica l 1,000 mg Branch tablet Cholecalcif 2020-0 Yes [id number] 5000U Take 1 [facility], 9-16 tablet by ity of Vitamin D3, 00:00: mouth [place] (VITAMIN 00 daily. Medical D3) 125 mcg Branch (5,000 unit) tablet vitamin C 2020-0 Yes [id number] 1000mg Take 1 [facility] with jacob 9-16 tablet by ity o f hips 00:00: mouth [place] (VITAMIN C) 00 daily. Medica l 1,000 mg Branch tablet Cholecalcif 2020-0 Yes [id number] 5000U Take 1 [facility], 9-16 tablet by ity of Vitamin D3, 00:00: mouth [place] (VITAMIN 00 daily. Medical D3) 125 mcg Branch (5,000 unit) tablet vitamin C 2020-0 Yes [id number] 1000mg Take 1 [facility] with jacob 9-16 tablet by ity o f hips 00:00: mouth [place] (VITAMIN C) 00 daily. Medica l 1,000 mg Branch tablet Cholecalcif 2020-0 Yes [id number] 5000U Take 1 [facility], 9-16 tablet by ity of Vitamin D3, 00:00: mouth [place] (VITAMIN 00 daily. Medical D3) 125 mcg Branch (5,000 unit) tablet vitamin C 2020-0 Yes [id number] 1000mg Take 1 [facility] with jacob 9-16 tablet by ity o f hips 00:00: mouth [place] (VITAMIN C) 00 daily. Medica l 1,000 mg Branch tablet Cholecalcif 2020-0 Yes [id number] 5000U Take 1 [facility], 9-16 tablet by ity of Vitamin D3, 00:00: mouth [place] (VITAMIN 00 daily. Medical D3) 125 mcg Branch (5,000 unit) tablet vitamin C 2020-0 Yes [id number] 1000mg Take 1 [facility] with jacob 9-16 tablet by ity o f hips 00:00: mouth [place] (VITAMIN C) 00 daily. Medica l 1,000 mg Branch tablet Cholecalcif 2020-0 Yes [id number] 5000U Take 1 [facility], 9-16 tablet by ity of Vitamin D3, 00:00: mouth [place] (VITAMIN 00 daily. Medical D3) 125 mcg Branch (5,000 unit) tablet vitamin C 2020-0 Yes [id number] 1000mg Take 1 [facility] with jacob 9-16 tablet by ity o f hips 00:00: mouth [place] (VITAMIN C) 00 daily. Medica l 1,000 mg Branch tablet Cholecalcif 2020-0 Yes [id number] 5000U Take 1 [facility], 9-16 tablet by ity of Vitamin D3, 00:00: mouth [place] (VITAMIN 00 daily. Medical D3) 125 mcg Branch (5,000 unit) tablet vitamin C 2020-0 Yes [id number] 1000mg Take 1 [facility] with jacob 9-16 tablet by ity o f hips 00:00: mouth [place] (VITAMIN C) 00 daily. Medica l 1,000 mg Branch tablet Cholecalcif 2020-0 Yes [id number] 5000U Take 1 [facility], 9-16 tablet by ity of Vitamin D3, 00:00: mouth [place] (VITAMIN 00 daily. Medical D3) 125 mcg Branch (5,000 unit) tablet vitamin C 2020-0 Yes [id number] 1000mg Take 1 [facility] with jacob 9-16 tablet by ity o f hips 00:00: mouth [place] (VITAMIN C) 00 daily. Medica l 1,000 mg Branch tablet Cholecalcif 2020-0 Yes [id number] 5000U Take 1 [facility], 9-16 tablet by ity of Vitamin D3, 00:00: mouth [place] (VITAMIN 00 daily. Medical D3) 125 mcg Branch (5,000 unit) tablet vitamin C 2020-0 Yes [id number] 1000mg Take 1 [facility] with jacob 9-16 tablet by ity o f hips 00:00: mouth [place] (VITAMIN C) 00 daily. Medica l 1,000 mg Branch tablet Cholecalcif 2020-0 Yes [id number] 5000U Take 1 [facility], 9-16 tablet by ity of Vitamin D3, 00:00: mouth [place] (VITAMIN 00 daily. Medical D3) 125 mcg Branch (5,000 unit) tablet vitamin C 2020-0 Yes [id number] 1000mg Take 1 [facility] with jacob 9-16 tablet by ity o f hips 00:00: mouth [place] (VITAMIN C) 00 daily. Medica l 1,000 mg Branch tablet Cholecalcif 2020-0 Yes [id number] 5000U Take 1 [facility], 9-16 tablet by ity of Vitamin D3, 00:00: mouth [place] (VITAMIN 00 daily. Medical D3) 125 mcg Branch (5,000 unit) tablet vitamin C 2020-0 Yes [id number] 1000mg Take 1 [facility] with jacob 9-16 tablet by ity o f hips 00:00: mouth [place] (VITAMIN C) 00 daily. Medica l 1,000 mg Branch tablet Cholecalcif 2020-0 Yes [id number] 5000U Take 1 [facility], 9-16 tablet by ity of Vitamin D3, 00:00: mouth [place] (VITAMIN 00 daily. Medical D3) 125 mcg Branch (5,000 unit) tablet vitamin C 2020-0 Yes [id number] 1000mg Take 1 [facility] with jacob 9-16 tablet by ity o f hips 00:00: mouth [place] (VITAMIN C) 00 daily. Medica l 1,000 mg Branch tablet Cholecalcif 2020-0 Yes [id number] 5000U Take 1 [facility], 9-16 tablet by ity of Vitamin D3, 00:00: mouth [place] (VITAMIN 00 daily. Medical D3) 125 mcg Branch (5,000 unit) tablet vitamin C 2020-0 Yes [id number] 1000mg Take 1 [facility] with jacob 9-16 tablet by ity o f hips 00:00: mouth [place] (VITAMIN C) 00 daily. Medica l 1,000 mg Branch tablet Cholecalcif 2020-0 Yes [id number] 5000U Take 1 [facility], 9-16 tablet by ity of Vitamin D3, 00:00: mouth [place] (VITAMIN 00 daily. Medical D3) 125 mcg Branch (5,000 unit) tablet vitamin C 2020-0 Yes [id number] 1000mg Take 1 [facility] with [facility]ob 9-16 tablet by ity o f hips 00:00: mouth [place] (VITAMIN C) 00 daily. Medica l 1,000 mg Branch tablet Cholecalcif 2020-0 Yes [id number] 5000U Take 1 [facility], 9-16 tablet by ity of Vitamin D3, 00:00: mouth [place] (VITAMIN 00 daily. Medical D3) 125 mcg Branch (5,000 unit) tablet vitamin C 2020-0 Yes [id number] 1000mg Take 1 [facility] with [facility]ob 9-16 tablet by ity o f hips 00:00: mouth [place] (VITAMIN C) 00 daily. Medica l 1,000 mg Branch tablet Cholecalcif 2020-0 Yes [id number] 5000U Take 1 [facility], 9-16 tablet by ity of Vitamin D3, 00:00: mouth [place] (VITAMIN 00 daily. Medical D3) 125 mcg Branch (5,000 unit) tablet vitamin C 2020-0 Yes [id number] 1000mg Take 1 [facility] with [facility]ob 9-16 tablet by ity o f hips 00:00: mouth [place] (VITAMIN C) 00 daily. Medica l 1,000 mg Branch tablet Cholecalcif 2020-0 Yes [id number] 5000U Take 1 [facility], 9-16 tablet by ity of Vitamin D3, 00:00: mouth [place] (VITAMIN 00 daily. Medical D3) 125 mcg Branch (5,000 unit) tablet vitamin C 2020-0 Yes [id number] 1000mg Take 1 [facility] with [facility]ob 9-16 tablet by ity o f hips 00:00: mouth [place] (VITAMIN C) 00 daily. Medica l 1,000 mg Branch tablet Cholecalcif 2020-0 Yes [id number] 5000U Take 1 [facility], 9-16 tablet by ity of Vitamin D3, 00:00: mouth [place] (VITAMIN 00 daily. Medical D3) 125 mcg Branch (5,000 unit) tablet vitamin C 2020-0 Yes [id number] 1000mg Take 1 [facility] with [facility]ob 9-16 tablet by ity o f hips 00:00: mouth [place] (VITAMIN C) 00 daily. Medica l 1,000 mg Branch tablet Cholecalcif 2020-0 Yes [id number] 5000U Take 1 [facility], 9-16 tablet by ity of Vitamin D3, 00:00: mouth [place] (VITAMIN 00 daily. Medical D3) 125 mcg Branch (5,000 unit) tablet vitamin C 2020-0 Yes [id number] 1000mg Take 1 [facility] with jacob 9-16 tablet by ity o f hips 00:00: mouth [place] (VITAMIN C) 00 daily. Medica l 1,000 mg Branch tablet Cholecalcif 2020-0 Yes [id number] 5000U Take 1 [facility], 9-16 tablet by ity of Vitamin D3, 00:00: mouth [place] (VITAMIN 00 daily. Medical D3) 125 mcg Branch (5,000 unit) tablet vitamin C 2020-0 Yes [id number] 1000mg Take 1 [facility] with [facility]ob 9-16 tablet by ity o f hips 00:00: mouth [place] (VITAMIN C) 00 daily. Medica l 1,000 mg Branch tablet Cholecalcif 2020-0 Yes [id number] 5000U Take 1 [facility], 9-16 tablet by ity of Vitamin D3, 00:00: mouth [place] (VITAMIN 00 daily. Medical D3) 125 mcg Branch (5,000 unit) tablet vitamin C 2020-0 Yes [id number] 1000mg Take 1 [facility] with [facility]ob 9-16 tablet by ity o f hips 00:00: mouth [place] (VITAMIN C) 00 daily. Medica l 1,000 mg Branch tablet Cholecalcif 2020-0 Yes [id number] 5000U Take 1 [facility], 9-16 tablet by ity of Vitamin D3, 00:00: mouth [place] (VITAMIN 00 daily. Medical D3) 125 mcg Branch (5,000 unit) tablet vitamin C 2020-0 Yes [id number] 1000mg Take 1 [facility] with j[facility]ob 9-16 tablet by ity o f hips 00:00: mouth [place] (VITAMIN C) 00 daily. Medica l 1,000 mg [facility] tablet Cholecalcif 2020-0 Yes [id number] 5000U Take 1 [facility], 9-16 tablet by ity of Vitamin D3, 00:00: mouth [place] (VITAMIN 00 daily. Medical D3) 125 mcg [facility] (5,000 unit) tablet vitamin C 2020-0 Yes [id number] 1000mg Take 1 [facility] with jacob 9-16 tablet by ity o f hips 00:00: mouth [place] (VITAMIN C) 00 daily. Medica l 1,000 mg [facility] tablet Cholecalcif 2020-0 Yes [id number] 5000U Take 1 [facility], 9-16 tablet by ity of Vitamin D3, 00:00: mouth [place] (VITAMIN 00 daily. Medical D3) 125 mcg [facility] (5,000 unit) tablet vitamin C 2020-0 Yes [id number] 1000mg Take 1 [facility]acob 9-16 tablet by ity o f hips 00:00: mouth [place] (VITAMIN C) 00 daily. Medica l 1,000 mg [facility] tablet Cholecalcif 2020-0 Yes [id number] 5000U Take 1 [facility], 9-16 tablet by ity of Vitamin D3, 00:00: mouth [place] (VITAMIN 00 daily. Medical D3) 125 mcg [facility] (5,000 unit) tablet vitamin C 2020-0 Yes [id number] 1000mg Take 1 [facility] jacob 9-16 tablet by ity o f hips 00:00: mouth [place] (VITAMIN C) 00 daily. Medica l 1,000 mg [facility] tablet Cholecalcif 2020-0 Yes [id number] 5000U Take 1 [facility], 9-16 tablet by ity of Vitamin D3, 00:00: mouth [place] (VITAMIN 00 daily. Medical D3) 125 mcg [facility] (5,000 unit) tablet vitamin C 2020-0 Yes [id number] 1000mg Take 1 [facility] jacob 9-16 tablet by ity o f hips 00:00: mouth [place] (VITAMIN C) 00 daily. Medica l 1,000 mg [facility] tablet Cholecalcif 2020-0 Yes [id number] 5000U Take 1 [facility], 9-16 tablet by ity of Vitamin D3, 00:00: mouth [place] (VITAMIN 00 daily. Medical D3) 125 mcg [facility] (5,000 unit) tablet vitamin C 2020-0 Yes [id number] 1000mg Take 1 [facility] jacob 9-16 tablet by ity o f hips 00:00: mouth [place] (VITAMIN C) 00 daily. Medica l 1,000 mg [facility] tablet Cholecalcif 2020-0 Yes [id number] 5000U Take 1 [facility], 9-16 tablet by ity of Vitamin D3, 00:00: mouth [place] (VITAMIN 00 daily. Medical D3) 125 mcg [facility] (5,000 unit) tablet Immunizations Ordered Filled Date Status Comments Source Immunization Name Immunization Name Influenza Virus 2021-01-29 Completed [facility] Vaccine 00:00:00 [facility] Influenza Virus 2021-01-29 Completed [facility] of Vaccine 00:00:00 [facility] Influenza Virus 2021-01-29 Completed [facility] of Vaccine 00:00:00 [facility] Influenza Virus 2021-01-29 Completed [facility] of Vaccine 00:00:00 [facility] Influenza Virus 2021-01-29 Completed [facility] of Vaccine 00:00:00 [facility] Influenza Virus 2021-01-29 Completed [facility] of Vaccine 00:00:00 [facility] Influenza Virus 2021-01-29 Completed [facility] of Vaccine 00:00:00 [facility] Influenza Virus 2021-01-29 Completed [facility] of Vaccine 00:00:00 [facility] Influenza Virus 2021-01-29 Completed [facility] of Vaccine 00:00:00 [facility] Influenza Virus 2021-01-29 Completed [facility] of Vaccine 00:00:00 [facility] Influenza Virus 2021-01-29 Completed [facility] of Vaccine 00:00:00 [facility] Influenza Virus 2021-01-29 Completed [facility] of Vaccine 00:00:00 [facility] Influenza Virus 2021-01-29 Completed [facility] of Vaccine 00:00:00 [facility] Influenza Virus 2021-01-29 Completed [facility] of Vaccine 00:00:00 [facility] Influenza Virus 2021-01-29 Completed [facility] of Vaccine 00:00:00 [facility] Influenza Virus 2021-01-29 Completed [facility] of Vaccine 00:00:00 [facility] Influenza Virus 2021-01-29 Completed [facility] of Vaccine 00:00:00 [facility] Influenza Virus 2021-01-29 Completed [facility] of Vaccine 00:00:00 [facility] Influenza Virus 2021-01-29 Completed [facility]it y of Vaccine 00:00:00 [facility] Influenza Virus 2021-01-29 Completed [facility] of Vaccine 00:00:00 [facility] Influenza Virus 2021-01-29 Completed [facility] of Vaccine 00:00:00 [facility] Influenza Virus 2021-01-29 Completed [facility]it y of Vaccine 00:00:00 [facility] Influenza Virus 2021-01-29 Completed [facility] y of Vaccine 00:00:00 [facility] Influenza Virus 2021-01-29 Completed [facility] y of Vaccine 00:00:00 [facility] Influenza Virus 2021-01-29 Completed [facility] y of Vaccine 00:00:00 [facility] Influenza Virus 2021-01-29 Completed [facility]it [facility] of Vaccine 00:00:00 [facility] Influenza Virus 2021-01-29 Completed [facility] of Vaccine 00:00:00 [facility] Influenza Virus 2021-01-29 Completed [facility]it [facility] of Vaccine 00:00:00 [facility] Influenza Virus 2021-01-29 Completed [facility] of Vaccine 00:00:00 [facility] Influenza Virus 2021-01-29 Completed [facility] of Vaccine 00:00:00 [facility] Influenza Virus 2021-01-29 Completed [facility] of Vaccine 00:00:00 [facility] Influenza Virus 2021-01-29 Completed [facility] of Vaccine 00:00:00 [facility] Influenza Virus 2021-01-29 Completed [facility] of Vaccine 00:00:00 [facility] Influenza Virus 2021-01-29 Completed [facility] of Vaccine 00:00:00 [facility] Influenza Virus 2021-01-29 Completed [facility] y of Vaccine 00:00:00 [facility] Influenza Virus 2021-01-29 Completed [facility]it y of Vaccine 00:00:00 [facility] Influenza Virus 2021-01-29 Completed [facility]it y of Vaccine 00:00:00 [facility] Influenza Virus 2021-01-29 Completed [facility]it y of Vaccine 00:00:00 [facility] Influenza Virus 2021-01-29 Completed [facility]it y of Vaccine 00:00:00 [facility] Influenza Virus 2021-01-29 Completed [facility]it y of Vaccine 00:00:00 [facility] Influenza Virus 2021-01-29 Completed [facility]it [facility] of Vaccine 00:00:00 [facility] Influenza Virus 2021-01-29 Completed [facility]it y of Vaccine 00:00:00 [facility] Influenza Virus 2021-01-29 Completed [facility] of Vaccine 00:00:00 [facility] Influenza Virus 2021-01-29 Completed [facility] of Vaccine 00:00:00 [facility] Influenza Virus 2021-01-29 Completed [facility]it y of Vaccine 00:00:00 [facility] Influenza Virus 2021-01-29 Completed [facility]it y of Vaccine 00:00:00 [facility] Influenza Virus 2021-01-29 Completed [facility]it y of Vaccine 00:00:00 [facility] Influenza Virus 2021-01-29 Completed [facility]it y of Vaccine 00:00:00 [facility] Influenza Virus 2021-01-29 Completed [facility]it y of Vaccine 00:00:00 [facility] Influenza Virus 2021-01-29 Completed [facility] y of Vaccine 00:00:00 [facility] Influenza Virus 2021-01-29 Completed [facility]it y of Vaccine 00:00:00 [facility] Influenza Virus 2021-01-29 Completed [facility] y of Vaccine 00:00:00 [facility] Influenza Virus 2021-01-29 Completed [facility] y of Vaccine 00:00:00 [facility] Influenza Virus 2021-01-29 Completed [facility] y of Vaccine 00:00:00 [facility] Influenza Virus 2021-01-29 Completed [facility] y of Vaccine 00:00:00 [facility] Influenza Virus 2021-01-29 Completed [facility] y of Vaccine 00:00:00 [facility] Influenza Virus 2021-01-29 Completed [facility] y of Vaccine 00:00:00 [facility] Influenza Virus 2021-01-29 Completed [facility] y of Vaccine 00:00:00 [facility] Influenza Virus 2021-01-29 Completed [facility] y of Vaccine 00:00:00 [facility] Influenza Virus 2021-01-29 Completed [facility] y of Vaccine 00:00:00 [facility] Influenza Virus 2021-01-29 Completed [facility]it y of Vaccine 00:00:00 [facility] Influenza Virus 2021-01-29 Completed [facility] y of Vaccine 00:00:00 [facility] SARS-COV-2 COVID-19 2020-12-11 Completed Unive rsity of PFIZER VACCINE 00:00:00 [facility] SARS-COV-2 COVID-19 2020-12-11 Completed Unive rsity of PFIZER VACCINE 00:00:00 [facility] SARS-COV-2 COVID-19 2020-12-11 Completed Unive rsity of PFIZER VACCINE 00:00:00 [facility] SARS-COV-2 COVID-19 2020-12-11 Completed Unive rsity of PFIZER VACCINE 00:00:00 [facility] SARS-COV-2 COVID-19 2020-12-11 Completed Unive rsity of PFIZER VACCINE 00:00:00 [facility] SARS-COV-2 COVID-19 2020-12-11 Completed Unive rsity of PFIZER VACCINE 00:00:00 [facility] SARS-COV-2 COVID-19 2020-12-11 Completed Unive rsity of PFIZER VACCINE 00:00:00 [facility] SARS-COV-2 COVID-19 2020-12-11 Completed Unive rsity of PFIZER VACCINE 00:00:00 [facility] SARS-COV-2 COVID-19 2020-12-11 Completed Unive rsity of PFIZER VACCINE 00:00:00 [facility] SARS-COV-2 COVID-19 2020-12-11 Completed Unive rsity of PFIZER VACCINE 00:00:00 [facility] SARS-COV-2 COVID-19 2020-12-11 Completed Unive rsity of PFIZER VACCINE 00:00:00 [facility] SARS-COV-2 COVID-19 2020-12-11 Completed Unive rsity of PFIZER VACCINE 00:00:00 [facility] SARS-COV-2 COVID-19 2020-12-11 Completed Unive rsity of PFIZER VACCINE 00:00:00 [facility] SARS-COV-2 COVID-19 2020-12-11 Completed Unive rsity of PFIZER VACCINE 00:00:00 [facility] SARS-COV-2 COVID-19 2020-12-11 Completed Unive rsity of PFIZER VACCINE 00:00:00 [facility] SARS-COV-2 COVID-19 2020-12-11 Completed Unive rsity of PFIZER VACCINE 00:00:00 [facility] SARS-COV-2 COVID-19 2020-12-11 Completed Unive rsity of PFIZER VACCINE 00:00:00 [facility] SARS-COV-2 COVID-19 2020-12-11 Completed Unive rsity of PFIZER VACCINE 00:00:00 [facility] SARS-COV-2 COVID-19 2020-12-11 Completed Unive rsity of PFIZER VACCINE 00:00:00 [facility] SARS-COV-2 COVID-19 2020-12-11 Completed Unive rsity of PFIZER VACCINE 00:00:00 [facility] SARS-COV-2 COVID-19 2020-12-11 Completed Unive rsity of PFIZER VACCINE 00:00:00 [facility] SARS-COV-2 COVID-19 2020-12-11 Completed Unive rsity of PFIZER VACCINE 00:00:00 [facility] SARS-COV-2 COVID-19 2020-12-11 Completed Unive rsity of PFIZER VACCINE 00:00:00 [facility] SARS-COV-2 COVID-19 2020-12-11 Completed Unive rsity of PFIZER VACCINE 00:00:00 [facility] SARS-COV-2 COVID-19 2020-12-11 Completed Unive rsity of PFIZER VACCINE 00:00:00 [facility] SARS-COV-2 COVID-19 2020-12-11 Completed Unive rsity of PFIZER VACCINE 00:00:00 [facility] SARS-COV-2 COVID-19 2020-12-11 Completed Unive rsity of PFIZER VACCINE 00:00:00 [facility] SARS-COV-2 COVID-19 2020-12-11 Completed Unive rsity of PFIZER VACCINE 00:00:00 [facility] SARS-COV-2 COVID-19 2020-12-11 Completed [facility] rs[facility] of PFIZER VACCINE 00:00:00 [place] [facility] SARS-COV-2 COVID-19 2020-12-11 Completed Unive rsity of PFIZER VACCINE 00:00:00 [facility] SARS-COV-2 COVID-19 2020-12-11 Completed Unive rsity of PFIZER VACCINE 00:00:00 [facility] SARS-COV-2 COVID-19 2020-12-11 Completed Unive rsity of PFIZER VACCINE 00:00:00 [facility] SARS-COV-2 COVID-19 2020-12-11 Completed Unive rsity of PFIZER VACCINE 00:00:00 [facility] SARS-COV-2 COVID-19 2020-12-11 Completed Unive rsity of PFIZER VACCINE 00:00:00 [facility] SARS-COV-2 COVID-19 2020-12-11 Completed Unive rsity of PFIZER VACCINE 00:00:00 [facility] SARS-COV-2 COVID-19 2020-12-11 Completed Unive rsity of PFIZER VACCINE 00:00:00 [facility] SARS-COV-2 COVID-19 2020-12-11 Completed Unive rsity of PFIZER VACCINE 00:00:00 [facility] SARS-COV-2 COVID-19 2020-12-11 Completed Unive rsity of PFIZER VACCINE 00:00:00 [facility] SARS-COV-2 COVID-19 2020-12-11 Completed Unive rsity of PFIZER VACCINE 00:00:00 [facility] SARS-COV-2 COVID-19 2020-12-11 Completed Unive rsity of PFIZER VACCINE 00:00:00 [facility] SARS-COV-2 COVID-19 2020-12-11 Completed Unive rsity of PFIZER VACCINE 00:00:00 [facility] SARS-COV-2 COVID-19 2020-12-11 Completed Unive rsity of PFIZER VACCINE 00:00:00 [facility] SARS-COV-2 COVID-19 2020-12-11 Completed Unive rsity of PFIZER VACCINE 00:00:00 [facility] SARS-COV-2 COVID-19 2020-12-11 Completed Unive rsity of PFIZER VACCINE 00:00:00 [facility] SARS-COV-2 COVID-19 2020-12-11 Completed Unive rsity of PFIZER VACCINE 00:00:00 [facility] SARS-COV-2 COVID-19 2020-12-11 Completed Unive rsity of PFIZER VACCINE 00:00:00 [facility] SARS-COV-2 COVID-19 2020-12-11 Completed Unive rsity of PFIZER VACCINE 00:00:00 [facility] SARS-COV-2 COVID-19 2020-12-11 Completed Unive rsity of PFIZER VACCINE 00:00:00 [facility] SARS-COV-2 COVID-19 2020-12-11 Completed Unive rsity of PFIZER VACCINE 00:00:00 [facility] SARS-COV-2 COVID-19 2020-12-11 Completed Unive rsity of PFIZER VACCINE 00:00:00 [facility] SARS-COV-2 COVID-19 2020-12-11 Completed Unive rsity of PFIZER VACCINE 00:00:00 [facility] SARS-COV-2 COVID-19 2020-12-11 Completed Unive rsity of PFIZER VACCINE 00:00:00 [facility] SARS-COV-2 COVID-19 2020-12-11 Completed Unive rsity of PFIZER VACCINE 00:00:00 [facility] SARS-COV-2 COVID-19 2020-12-11 Completed Unive rsity of PFIZER VACCINE 00:00:00 [facility] SARS-COV-2 COVID-19 2020-12-11 Completed Unive rsity of PFIZER VACCINE 00:00:00 [facility] SARS-COV-2 COVID-19 2020-12-11 Completed Unive rsity of PFIZER VACCINE 00:00:00 [facility] SARS-COV-2 COVID-19 2020-12-11 Completed Unive rsity of PFIZER VACCINE 00:00:00 [facility] SARS-COV-2 COVID-19 2020-12-11 Completed Unive rsity of PFIZER VACCINE 00:00:00 [facility] SARS-COV-2 COVID-19 2020-12-11 Completed Unive rsity of PFIZER VACCINE 00:00:00 [facility] SARS-COV-2 COVID-19 2020-12-11 Completed Unive rsity of PFIZER VACCINE 00:00:00 [facility] SARS-COV-2 COVID-19 2020-12-11 Completed Unive rsity of PFIZER VACCINE 00:00:00 [facility] SARS-COV-2 COVID-19 2020-12-11 Completed Unive rsity of PFIZER VACCINE 00:00:00 [facility] SARS-COV-2 COVID-19 2020-11-14 Completed Unive rsity of PFIZER VACCINE 00:00:00 [facility] SARS-COV-2 COVID-19 2020-11-14 Completed Unive rsity of PFIZER VACCINE 00:00:00 [facility] SARS-COV-2 COVID-19 2020-11-14 Completed Unive rsity of PFIZER VACCINE 00:00:00 [facility] SARS-COV-2 COVID-19 2020-11-14 Completed Unive rsity of PFIZER VACCINE 00:00:00 [facility] SARS-COV-2 COVID-19 2020-11-14 Completed Unive rsity of PFIZER VACCINE 00:00:00 [facility] SARS-COV-2 COVID-19 2020-11-14 Completed Unive rsity of PFIZER VACCINE 00:00:00 [facility] SARS-COV-2 COVID-19 2020-11-14 Completed Unive rsity of PFIZER VACCINE 00:00:00 [facility] SARS-COV-2 COVID-19 2020-11-14 Completed Unive rsity of PFIZER VACCINE 00:00:00 [facility] SARS-COV-2 COVID-19 2020-11-14 Completed Unive rsity of PFIZER VACCINE 00:00:00 [facility] SARS-COV-2 COVID-19 2020-11-14 Completed Unive rsity of PFIZER VACCINE 00:00:00 [facility] SARS-COV-2 COVID-19 2020-11-14 Completed Unive rsity of PFIZER VACCINE 00:00:00 [facility] SARS-COV-2 COVID-19 2020-11-14 Completed Unive rsity of PFIZER VACCINE 00:00:00 [facility] SARS-COV-2 COVID-19 2020-11-14 Completed Unive rsity of PFIZER VACCINE 00:00:00 [facility] SARS-COV-2 COVID-19 2020-11-14 Completed Unive rsity of PFIZER VACCINE 00:00:00 [facility] SARS-COV-2 COVID-19 2020-11-14 Completed Unive rsity of PFIZER VACCINE 00:00:00 [facility] SARS-COV-2 COVID-19 2020-11-14 Completed Unive rsity of PFIZER VACCINE 00:00:00 [facility] SARS-COV-2 COVID-19 2020-11-14 Completed Unive rsity of PFIZER VACCINE 00:00:00 [facility] SARS-COV-2 COVID-19 2020-11-14 Completed Unive rsity of PFIZER VACCINE 00:00:00 [facility] SARS-COV-2 COVID-19 2020-11-14 Completed Unive rsity of PFIZER VACCINE 00:00:00 [facility] SARS-COV-2 COVID-19 2020-11-14 Completed Unive rsity of PFIZER VACCINE 00:00:00 [facility] SARS-COV-2 COVID-19 2020-11-14 Completed Unive rsity of PFIZER VACCINE 00:00:00 [facility] SARS-COV-2 COVID-19 2020-11-14 Completed Unive rsity of PFIZER VACCINE 00:00:00 [facility] SARS-COV-2 COVID-19 2020-11-14 Completed [facility]ive rsity of PFIZER VACCINE 00:00:00 [facility] SARS-COV-2 COVID-19 2020-11-14 Completed [facility]ive rsity of PFIZER VACCINE 00:00:00 [facility] SARS-COV-2 COVID-19 2020-11-14 Completed Unive rsity of PFIZER VACCINE 00:00:00 [facility] SARS-COV-2 COVID-19 2020-11-14 Completed [facility]ive rsity of PFIZER VACCINE 00:00:00 [facility] SARS-COV-2 COVID-19 2020-11-14 Completed [facility]ive rsity of PFIZER VACCINE 00:00:00 [facility] SARS-COV-2 COVID-19 2020-11-14 Completed [facility] of PFIZER VACCINE 00:00:00 [facility] SARS-COV-2 COVID-19 2020-11-14 Completed Unive rsity of PFIZER VACCINE 00:00:00 [facility] SARS-COV-2 COVID-19 2020-11-14 Completed Unive rsity of PFIZER VACCINE 00:00:00 [facility] SARS-COV-2 COVID-19 2020-11-14 Completed [facility]ive rsity of PFIZER VACCINE 00:00:00 [facility] SARS-COV-2 COVID-19 2020-11-14 Completed Unive rsity of PFIZER VACCINE 00:00:00 [facility] SARS-COV-2 COVID-19 2020-11-14 Completed Unive rsity of PFIZER VACCINE 00:00:00 [facility] SARS-COV-2 COVID-19 2020-11-14 Completed Unive rsity of PFIZER VACCINE 00:00:00 [facility] SARS-COV-2 COVID-19 2020-11-14 Completed Unive rsity of PFIZER VACCINE 00:00:00 [facility] SARS-COV-2 COVID-19 2020-11-14 Completed Unive rsity of PFIZER VACCINE 00:00:00 [facility] SARS-COV-2 COVID-19 2020-11-14 Completed Unive rsity of PFIZER VACCINE 00:00:00 [facility] SARS-COV-2 COVID-19 2020-11-14 Completed [facility]ive rsity of PFIZER VACCINE 00:00:00 [facility] SARS-COV-2 COVID-19 2020-11-14 Completed [facility]ive rsity of PFIZER VACCINE 00:00:00 [facility] SARS-COV-2 COVID-19 2020-11-14 Completed Unive rsity of PFIZER VACCINE 00:00:00 [facility] SARS-COV-2 COVID-19 2020-11-14 Completed Unive rsity of PFIZER VACCINE 00:00:00 [facility] SARS-COV-2 COVID-19 2020-11-14 Completed Unive rsity of PFIZER VACCINE 00:00:00 [facility] SARS-COV-2 COVID-19 2020-11-14 Completed Unive rsity of PFIZER VACCINE 00:00:00 [facility] SARS-COV-2 COVID-19 2020-11-14 Completed Unive rsity of PFIZER VACCINE 00:00:00 [facility] SARS-COV-2 COVID-19 2020-11-14 Completed Unive rsity of PFIZER VACCINE 00:00:00 [facility] SARS-COV-2 COVID-19 2020-11-14 Completed Unive rsity of PFIZER VACCINE 00:00:00 [facility] SARS-COV-2 COVID-19 2020-11-14 Completed Unive rsity of PFIZER VACCINE 00:00:00 [facility] SARS-COV-2 COVID-19 2020-11-14 Completed Unive rsity of PFIZER VACCINE 00:00:00 [facility] SARS-COV-2 COVID-19 2020-11-14 Completed [facility]ive rsity of PFIZER VACCINE 00:00:00 [facility] SARS-COV-2 COVID-19 2020-11-14 Completed [facility]ive rsity of PFIZER VACCINE 00:00:00 [facility] SARS-COV-2 COVID-19 2020-11-14 Completed [facility]ive rsity of PFIZER VACCINE 00:00:00 [facility] SARS-COV-2 COVID-19 2020-11-14 Completed [facility]ive [facility]ity of PFIZER VACCINE 00:00:00 [facility] SARS-COV-2 COVID-19 2020-11-14 Completed Unive rsity of PFIZER VACCINE 00:00:00 [facility] SARS-COV-2 COVID-19 2020-11-14 Completed [facility]ive rsity of PFIZER VACCINE 00:00:00 [facility] SARS-COV-2 COVID-19 2020-11-14 Completed [facility]ive rsity of PFIZER VACCINE 00:00:00 [facility] SARS-COV-2 COVID-19 2020-11-14 Completed [facility]ive rsity of PFIZER VACCINE 00:00:00 [facility] SARS-COV-2 COVID-19 2020-11-14 Completed [facility]ive [facility]ity of PFIZER VACCINE 00:00:00 [facility] SARS-COV-2 COVID-19 2020-11-14 Completed [facility]ive [facility]ity of PFIZER VACCINE 00:00:00 [facility] SARS-COV-2 COVID-19 2020-11-14 Completed [facility]ive rsity of PFIZER VACCINE 00:00:00 [facility] SARS-COV-2 COVID-19 2020-11-14 Completed [facility]ive [facility]ity of PFIZER VACCINE 00:00:00 [facility] SARS-COV-2 COVID-19 2020-11-14 Completed [facility] of PFIZER VACCINE 00:00:00 [facility] SARS-COV-2 COVID-19 2020-11-14 Completed Unive rsity of PFIZER VACCINE 00:00:00 [facility] 2019-01-14 Completed [facility] of 00:00:00 [facility] Influenza Virus 2019-01-14 Completed Universit y of Vaccine Quad .5 mL 00:00:[address] [place] [facility] 2019-01-14 Completed University of 00:00:00 [facility] Influenza Virus 2019-01-14 Completed [facility] of Vaccine [place] .5 mL 00:00:[address] [place] [facility] 2019-01-14 Completed University of 00:00:00 [facility] Influenza Virus 2019-01-14 Completed [facility] of Vaccine [facility] .5 mL 00:00:[address] 2019-01-14 Completed [facility] of 00:00:00 [facility] Influenza Virus 2019-01-14 Completed [facility] Vaccine [facility] .5 mL 00:00:[address] 2019-01-14 Completed [facility] of 00:00:00 [facility] Influenza Virus 2019-01-14 Completed [facility] Vaccine [facility] .5 mL 00:00:[address] 2019-01-14 Completed [facility] of 00:00:00 [facility] Influenza Virus 2019-01-14 Completed [facility] of Vaccine [facility] .5 mL 00:00:[address] 2019-01-14 Completed [facility] of 00:00:00 [facility] Influenza Virus 2019-01-14 Completed [facility] of Vaccine [facility] .5 mL 00:00:[address] [place] [facility] 2019-01-14 Completed University of 00:00:00 [facility] Influenza Virus 2019-01-14 Completed [facility] of Vaccine [facility] .5 mL 00:00:[address] 2019-01-14 Completed [facility] of 00:00:00 [facility] Influenza Virus 2019-01-14 Completed [facility] Vaccine [facility] .5 mL 00:00:[address] [place] [facility] 2019-01-14 Completed University of 00:00:00 [facility] Influenza Virus 2019-01-14 Completed [facility] y of Vaccine [facility] .5 mL 00:00:00 [facility] [place] [facility] 2019-01-14 Completed [facility] of 00:00:00 [facility] Influenza Virus 2019-01-14 Completed [facility] of Vaccine [facility] .5 mL 00:00:00 [facility] [place] [facility] TDAP 2019-01-14 Completed [facility] of 00:00:00 [facility] Influenza Virus 2019-01-14 Completed [facility] of Vaccine [facility] .5 mL 00:00:00 [facility] [place] [facility] TDAP 2019-01-14 Completed [facility] of 00:00:00 [facility] Influenza Virus 2019-01-14 Completed [facility] of Vaccine [facility] .5 mL 00:00:00 [facility]+ [place] Branch TDAP 2019-01-14 Completed University of 00:00:00 [facility] Influenza Virus 2019-01-14 Completed Universit y of Vaccine Quad .5 mL 00:00:00 [facility] 6+ [place] TD 2019-01-14 Completed University of 00:00:00 [facility] Influenza Virus 2019-01-14 Completed Universit y of Vaccine Quad .5 mL 00:00:00 [facility] 6+ [place] TDAP 2019-01-14 Completed University of 00:00:00 [facility] Influenza Virus 2019-01-14 Completed Universit y of Vaccine Quad .5 mL 00:00:00 [facility] 6+ [place] TDAP 2019-01-14 Completed University of 00:00:00 [facility] Influenza Virus 2019-01-14 Completed Universit y of Vaccine Quad .5 mL 00:00:00 [facility] 6+ [place] TDAP 2019-01-14 Completed University of 00:00:00 [facility] Influenza Virus 2019-01-14 Completed Universit y of Vaccine Quad .5 mL 00:00:00 [facility] 6+ MO Branch TDAP 2019-01-14 Completed University of 00:00:00 [facility] Influenza Virus 2019-01-14 Completed Universit y of Vaccine Quad .5 mL 00:00:00 [facility] 6+ [place] TDAP 2019-01-14 Completed University of 00:00:00 [facility] Influenza Virus 2019-01-14 Completed Universit y of Vaccine Quad .5 mL 00:00:00 [facility] 6+ MO Branch TDAP 2019-01-14 Completed University of 00:00:00 [facility] Influenza Virus 2019-01-14 Completed Universit y of Vaccine Quad .5 mL 00:00:00 [facility] 6+ MO Branch TDAP 2019-01-14 Completed University of 00:00:00 [facility] Influenza Virus 2019-01-14 Completed Universit y of Vaccine Quad .5 mL 00:00:00 [facility] 6+ MO Branch TDAP 2019-01-14 Completed University of 00:00:00 [facility] Influenza Virus 2019-01-14 Completed Universit y of Vaccine Quad .5 mL 00:00:00 [facility] 6+ MO Branch TDAP 2019-01-14 Completed University of 00:00:00 [facility] Influenza Virus 2019-01-14 Completed Universit y of Vaccine Quad .5 mL 00:00:00 [facility] 6+ [place] TDAP 2019-01-14 Completed University of 00:00:00 [facility] Influenza Virus 2019-01-14 Completed Universit y of Vaccine Quad .5 mL 00:00:00 [facility] 6+ MO Branch TDAP 2019-01-14 Completed University of 00:00:00 [facility] Influenza Virus 2019-01-14 Completed Universit y of Vaccine Quad .5 mL 00:00:00 [facility] 6+ MO Branch TDAP 2019-01-14 Completed University of 00:00:00 [facility] Influenza Virus 2019-01-14 Completed Universit y of Vaccine Quad .5 mL 00:00:00 [facility] 6+ [place] TDAP 2019-01-14 Completed University of 00:00:00 [facility] Influenza Virus 2019-01-14 Completed Universit y of Vaccine Quad .5 mL 00:00:00 [facility] 6+ MO Branch TDAP 2019-01-14 Completed University of 00:00:00 [facility] Influenza Virus 2019-01-14 Completed Universit y of Vaccine Quad .5 mL 00:00:00 [facility] 6+ MO Branch TDAP 2019-01-14 Completed University of 00:00:00 [facility] Influenza Virus 2019-01-14 Completed Universit y of Vaccine Quad .5 mL 00:00:00 [facility] 6+ MO Branch TDAP 2019-01-14 Completed University of 00:00:00 [facility] Influenza Virus 2019-01-14 Completed Universit y of Vaccine [place] .5 mL 00:00:[address] [place] [facility] 2019-01-14 Completed University of 00:00:00 [facility] Influenza Virus 2019-01-14 Completed Universit y of Vaccine [place] .5 mL 00:00:[address] [place] [facility] 2019-01-14 Completed University of 00:00:00 [facility] Influenza Virus 2019-01-14 Completed Universit y of Vaccine [facility] .5 mL 00:00:[address] 2019-01-14 Completed University of 00:00:00 [facility] Influenza Virus 2019-01-14 Completed Universit y of Vaccine Quad .5 mL 00:00:[address] [place] [facility] 2019-01-14 Completed University of 00:00:00 [facility] Influenza Virus 2019-01-14 Completed Universit y of Vaccine Quad .5 mL 00:00:[address] 2019-01-14 Completed University of 00:00:00 [facility] Influenza Virus 2019-01-14 Completed Universit y of Vaccine [facility] .5 mL 00:00:[address] 2019-01-14 Completed University of 00:00:00 [facility] Influenza Virus 2019-01-14 Completed Universit y of Vaccine [facility] .5 mL 00:00:[address] 2019-01-14 Completed University of 00:00:00 [facility] Influenza Virus 2019-01-14 Completed Universit y of Vaccine [facility] .5 mL 00:00:[address] 2019-01-14 Completed University of 00:00:00 [facility] Influenza Virus 2019-01-14 Completed Universit y of Vaccine [place] .5 mL 00:00:[address] 2019-01-14 Completed University of 00:00:00 [facility] Influenza Virus 2019-01-14 Completed Universit y of Vaccine [place] .5 mL 00:00:[address] 2019-01-14 Completed University of 00:00:00 [facility] Influenza Virus 2019-01-14 Completed Universit y of Vaccine Quad .5 mL 00:00:[address] 2019-01-14 Completed University of 00:00:00 [facility] Influenza Virus 2019-01-14 Completed Universit y of Vaccine Quad .5 mL 00:00:00 [facility] 6+ MO Branch TDAP 2019-01-14 Completed [facility] of 00:00:00 [facility] Influenza Virus 2019-01-14 Completed Universit y of Vaccine Quad .5 mL 00:00:00 [facility] 6+ MO Branch TDAP 2019-01-14 Completed [facility] of 00:00:00 [facility] Influenza Virus 2019-01-14 Completed Universit y of Vaccine Quad .5 mL 00:00:00 [facility] 6+ MO Branch TDAP 2019-01-14 Completed University of 00:00:00 [facility] Influenza Virus 2019-01-14 Completed Universit y of Vaccine Quad .5 mL 00:00:00 [facility] 6+ [place] TD 2019-01-14 Completed University of 00:00:00 [facility] Influenza Virus 2019-01-14 Completed Universit y of Vaccine Quad .5 mL 00:00:00 [place] [address]+ MO [facility] 2019-01-14 Completed University of 00:00:00 [facility] Influenza Virus 2019-01-14 Completed Universit y of Vaccine Quad .5 mL 00:00:[address] [place] TD 2019-01-14 Completed University of 00:00:00 [facility] Influenza Virus 2019-01-14 Completed Universit y of Vaccine Quad .5 mL 00:00:00 [place] [address] MO [facility] 2019-01-14 Completed University of 00:00:00 [facility] Influenza Virus 2019-01-14 Completed Universit y of Vaccine Quad .5 mL 00:00:00 [facility] 6+ [place] TD 2019-01-14 Completed University of 00:00:00 [facility] Influenza Virus 2019-01-14 Completed Universit y of Vaccine Quad .5 mL 00:00:00 [facility] 6+ [place] TD 2019-01-14 Completed University of 00:00:00 [facility] Influenza Virus 2019-01-14 Completed Universit y of Vaccine Quad .5 mL 00:00:00 [facility] 6+ [place] TD 2019-01-14 Completed University of 00:00:00 [facility] Influenza Virus 2019-01-14 Completed Universit y of Vaccine Quad .5 mL 00:00:00 [facility] 6+ [place] TD 2019-01-14 Completed University of 00:00:00 [facility] Influenza Virus 2019-01-14 Completed Universit y of Vaccine Quad .5 mL 00:00:00 [facility] 6+ MO Branch TDAP 2019-01-14 Completed University of 00:00:00 [facility] Influenza Virus 2019-01-14 Completed Universit y of Vaccine Quad .5 mL 00:00:00 [facility] 6+ MO Branch TDAP 2019-01-14 Completed University of 00:00:00 [facility] Influenza Virus 2019-01-14 Completed Universit y of Vaccine Quad .5 mL 00:00:00 [facility] 6+ MO Branch TDAP 2019-01-14 Completed University of 00:00:00 [facility] Influenza Virus 2019-01-14 Completed Universit y of Vaccine Quad .5 mL 00:00:00 [facility] 6+ [place] TDAP 2019-01-14 Completed University of 00:00:00 [facility] Influenza Virus 2019-01-14 Completed Universit y of Vaccine Quad .5 mL 00:00:00 [facility] 6+ MO Branch TDAP 2019-01-14 Completed University of 00:00:00 [facility] Influenza Virus 2019-01-14 Completed Universit y of Vaccine Quad .5 mL 00:00:00 [facility] 6+ MO Branch TDAP 2019-01-14 Completed University of 00:00:00 [facility] Influenza Virus 2019-01-14 Completed Universit y of Vaccine Quad .5 mL 00:00:00 [facility] 6+ [place] TDAP 2019-01-14 Completed University of 00:00:00 [facility] Influenza Virus 2019-01-14 Completed Universit y of Vaccine Quad .5 mL 00:00:00 [facility] 6+ MO Branch (FLUZONE/FLULAVAL/F LUARIX) TDAP 2019-01-14 Completed University of 00:00:00 [facility] Influenza Virus 2019-01-14 Completed Universit y of Vaccine Quad .5 mL 00:00:00 [facility] 6+ MO Branch (FLUZONE/FLULAVAL/F LUARIX) TD 2019-01-14 Completed University of 00:00:00 [facility] Influenza Virus 2019-01-14 Completed Universit y of Vaccine Quad .5 mL 00:00:00 [facility] 6+ MO Branch (FLUZONE/FLULAVAL/F LUARIX) [facility] Unknown Completed [facility] Influenza Virus Unknown Completed Universit y of Vaccine Quad .5 mL [facility] IM 6+ MO Branch (FLUZONE/FLULAVAL/F LUARIX) SARS-COV-2 COVID-19 Unknown Completed Unive rsity of PFIZER VACCINE [facility] SARS-COV-2 COVID-19 Unknown Completed Unive rsity of PFIZER VACCINE [facility] Influenza Virus Unknown Completed Universit y of Vaccine [facility] TDAP Unknown Completed [facility] Influenza Virus Unknown Completed Universit y of Vaccine Quad .5 mL [facility] IM 6+ MO Branch (FLUZONE/FLULAVAL/F LUARIX) SARS-COV-2 COVID-19 Unknown Completed Unive rsity of PFIZER VACCINE [facility] SARS-COV-2 COVID-19 Unknown Completed Unive rsity of PFIZER VACCINE [facility] Influenza Virus Unknown Completed Universit y of Vaccine [facility] TDAP Unknown Completed [facility] Influenza Virus Unknown Completed Universit y of Vaccine Quad .5 mL [facility] 6+ MO Branch (FLUZONE/FLULAVAL/F LUARIX) SARS-COV-2 COVID-19 Unknown Completed Unive rsity of PFIZER VACCINE [facility] SARS-COV-2 COVID-19 Unknown Completed Unive rsity of PFIZER VACCINE [facility] Influenza Virus Unknown Completed Universit y of [facility] Vital Signs Vital Name Observation Time Observation Value Comments Source Systolic blood 2022-12-01 110 mm[Hg] [place] of pressure 19:30:41 [facility] Diastolic blood 2022-12-01 90 mm[Hg] [place] o f pressure 19:30:41 [facility] Heart rate 2022-12-01 61 /min University of 19:30:41 [facility] Body temperature 2022-12-01 36.72 [place] University of 19:30:41 [facility] Respiratory rate 2022-12-01 17 /min University of 19:30:41 [facility] Oxygen saturation 2022-12-01 96 /min [facility] in Arterial blood 19:30:41 [facility] by Pulse oximetry [place] Body height 2022-12-01 165.1 cm [facility] 16:56:00 [facility] Body weight 2022-12-01 79.379 kg University 16:56:00 [facility] BMI 2022-12-01 29.12 kg/m2 University of 16:56:00 [facility] Systolic blood 2022-10-21 121 mm[Hg] University of pressure 15:53:00 [facility] Diastolic blood 2022-10-21 86 mm[Hg] University o f pressure 15:53:00 [facility] Heart rate 2022-10-21 79 /min University of 15:53:00 [facility] Body height 2022-10-21 165.1 cm University of 15:53:00 [facility] Body weight 2022-10-21 82.01 kg University of 15:53:00 [facility] BMI 2022-10-21 30.09 kg/m2 University of 15:53:00 [facility] Oxygen saturation 2022-10-21 97 /min University of in Arterial blood 15:53:00 [facility] by Pulse oximetry Branch Systolic blood 2022-10-13 135 mm[Hg] pt felt University of pressure 20:29:00 unbalanced/torin [facility] Diastolic blood 2022-10-13 102 mm[Hg] pt felt [place] o f pressure 20:29:00 unbalanced/torin [facility] Heart rate 2022-10-13 116 /min University of 20:29:00 [facility] Oxygen saturation 2022-10-13 97 /min University of in Arterial blood 20:29:00 [facility] by Pulse oximetry Branch Body temperature 2022-10-13 37.17 [place] University of 19:57:00 [facility] Respiratory rate 2022-10-13 18 /min University of 19:57:00 [facility] Body height 2022-10-13 165.1 cm University of 19:57:00 [facility] Body weight 2022-10-13 81.449 kg University of 19:57:00 [facility] BMI 2022-10-13 29.88 kg/m2 University of 19:57:00 [facility] Systolic blood 2022-10-04 148 mm[Hg] University of pressure 21:10:00 [facility] Diastolic blood 2022-10-04 98 mm[Hg] University o f pressure 21:10:00 [facility] Heart rate 2022-10-04 99 /min University of 21:06:00 [facility] Body temperature 2022-10-04 36.83 [place] University of 21:06:00 [facility] Respiratory rate 2022-10-04 18 /min University of 21:06:00 [facility] Branch Body height 2022-10-04 165.1 cm University of 21:06:00 [facility] Body weight 2022-10-04 82.555 kg University of 21:06:00 [facility] BMI 2022-10-04 30.29 kg/m2 University of 21:06:00 [facility] Oxygen saturation 2022-10-04 99 /min University of in Arterial blood 21:06:00 [facility] P[facility]xim[facility] Branch Systolic blood 2022-09-28 129 mm[Hg] University of pressure 21:00:00 [facility] Branch Diastolic blood 2022-09-28 96 mm[Hg] University o f pressure 21:00:00 [facility] Heart rate 2022-09-28 76 /min University of :00:00 [facility] Respiratory rate 2022-09-28 13 /min University of :00:00 [facility] Oxygen saturation 2022-09-28 97 /min University of in Arterial blood 21:00:00 [facility] lon[facility] by Pulse oximetry Branch Body temperature 2022-09-28 37.11 [place] University of 17:45:00 [facility] Body weight 2022-09-28 94.802 kg University of 17:45:00 [facility] BMI 2022-09-28 34.78 kg/m2 University of 17:45:00 [facility] Systolic blood 2022-06-03 138 mm[Hg] University of pressure 20:07:00 [facility] Diastolic blood 2022-06-03 90 mm[Hg] University o f pressure 20:07:00 [facility] Heart rate 2022-06-03 92 /min University of 20:06:00 [facility] Branch Respiratory rate 2022-06-03 18 /min University of 20:06:00 [facility] Body height 2022-06-03 165.1 cm University of 20:06:00 [facility] Body weight 2022-06-03 94.802 kg University of 20:06:00 [facility] BMI 2022-06-03 34.78 kg/m2 University of 20:06:00 [facility] Oxygen saturation 2022-06-03 97 /min University of in Arterial blood 20:06:00 [facility] Pulse oximetry Branch Systolic blood 2022-02-03 139 mm[Hg] University of pressure 14:00:00 [facility] Diastolic blood 2022-02-03 91 mm[Hg] University o f pressure 14:00:00 [facility] Heart rate 2022-02-03 73 /min University of 14:00:00 [facility] Respiratory rate 2022-02-03 18 /min University of 14:00:00 [facility] Oxygen saturation 2022-02-03 97 /min [facility] in Arterial blood 14:00:00 [facility] by Pulse oximetry Branch Body temperature 2022-02-03 36.61 [place]a University of 13:18:00 [facility] Body weight 2022-02-03 99.791 kg University of 13:18:00 [facility] BMI 2022-02-03 38.97 kg/m2 University of 13:18:00 [facility] Systolic blood 2022-01-27 136 mm[Hg] University of pressure 21:05:00 [facility] Diastolic blood 2022-01-27 81 mm[Hg] University o f pressure 21:05:00 [facility] Heart rate 2022-01-27 81 /min University of 21:05:00 [facility] Respiratory rate 2022-01-27 18 /min University of 21:05:00 [facility] Body height 2022-01-27 160 cm University of 21:05:00 [facility] Body weight 2022-01-27 103.874 kg University of 21:05:00 [facility] BMI 2022-01-27 40.57 kg/m2 University of 21:05:00 [facility] Oxygen saturation 2022-01-27 97 /min [facility] in Arterial blood 21:05:00 [facility] by Pulse oximetry Branch Procedures Procedure Date / Time Performing Clinician Source Performed EXTERNAL PROVIDER RECORDS 2023-01-05 05:01:00 Doctor Unassigned, [facility] [place] [facility] [place] INSURANCE CORRESPONDENCE 2022-12-22 05:01:00 Doctor Unassigned, [facility] [place] [facility] [place] URINALYSIS 2022-12-01 18:38:00 Jey Sharma [facility] XR CHEST 1 VW 2022-12-01 17:41:17 Jey Sharma [facility] LIPASE 2022-12-01 17:15:00 Jey Sharma [facility] TROPONIN I 2022-12-01 17:15:00 Jey Sharma [facility] COMP. METABOLIC PANEL 2022-12-01 17:15:00 Jey Sharma [facility] ([id number]) [facility] CBC WITH DIFF 2022-12-01 17:15:00 Jey Sharma [facility] COVID-19 (ID NOW RAPID 2022-12-01 17:15:00 Jey Sharma [facility] TESTING) Medical [place] MEDICATION CORRESPONDENCE 2022-11-22 05:01:00 Doctor Unassigned, [facility] [place] [facility] MR LUMBAR SPINE W WO 2022-10-12 21:23:00 Miya Olsen [facility] CONTRAST [facility] POCT TEST 2022-09-28 19:44:00 Juliane Clay [facility] CT STROKE ANGIOGRAM HEAD 2022-09-28 19:30:00 Juliane Clay [facility] CT STROKE ANGIOGRAM NECK 2022-09-28 19:30:00 Juliane Clay [facility] CT STROKE HEAD WO 2022-09-28 19:14:05 Juliane Clay [facility] CONTRAST [facility] TROPONIN I 2022-09-28 18:53:00 Juliane Clay [facility] COMP. METABOLIC PANEL 2022-09-28 18:53:00 Juliane Clay [facility] ([id number]) [facility] CBC WITH DIFF 2022-09-28 18:53:00 Juliane Clay [facility] PROTHROMBIN TIME / INR 2022-09-28 18:53:00 [facility] 2022-09-28 18:53:00 Juliane Clay [facility] THRMPLAS MARK [facility] URINALYSIS 2022-09-28 18:53:00 Juliane Clay [facility] N-TERMINAL PRO-BNP 2022-09-28 18:53:00 Juliane Clay [facility] LACTIC ACID WHOLE BLOOD 2022-09-28 18:53:00 [facility] CERVICAL SPINE WO 2022-08-25 21:43:32 Requisition, Paper [facility] CONSENT/REFUSAL FOR 2022-08-25 21:06:28 Doctor Unassigned, [facility] DIAGNOSIS AND TREATMENT [place] [facility] [place] ASSIGNMENT OF BENEFITS 2022-08-25 21:06:18 [facility] [place] [facility] [place] MR LUMBAR SPINE WO 2022-06-07 22:54:45 Requisition, Paper [facility] XR LUMBAR SPINE 4 VW 2022-06-07 21:58:44 Requisition, Paper [facility] COMP. METABOLIC PANEL 2022-02-03 13:37:00 Carolina Maurice [facility] ([id number]) [facility] CBC WITH DIFF 2022-02-03 13:37:00 Carolina Maurice [facility] CONSENT/REFUSAL FOR 2022-02-03 13:08:09 Doctor Diann, [facility] DIAGNOSIS AND TREATMENT [place] [facility] Encounters Start End Encounter Admission Attending Care Care Encounter Source Date/Time Date/Time Type Type Clinicians Facility Department ID 2021-03-04 Outpatient Jhoana ROTHMAN [facility] DEB [id number] Univers 15:44:30 ABBEY [facility] 2021-02-12 Emergency [facility] [id number] Univers 17:53:46 [facility] 2023-04-19 2023-04-19 Outpatient Jhoana OLSEN [facility] [id number] Univers 09:40:00 09:40:00 MIYA ity [facility] 2023-01-05 2023-01-05 Orders Doctor PABLO [id number] Univers 00:00:00 00:00:00 Only Unassigned, TRICIA [id number] ity [place] [facility] [id number] David as [id number] [place] [address] Branch 2023-01-04 2023-01-04 Culinary Intern 2, Adc Lab [facility] [id number] Univers 11:30:00 11:30:00 Visit Miya Olsen [id number] [id number] [id number] [facility] 353 [facility] 2023-01-04 2023-01-04 [facility] [id number] Univers 11:30:00 10:45:49 MIYA beatty of [facility] 2023-01-03 2023-01-03 [facility] [id number] Univers 14:20:00 14:20:00 EVA beatty o f [facility] 2022-12-29 2022-12-29 [facility] [id number] Univers 00:00:00 00:00:00 Miya WOLFF [id number] i [id number] [id number] [facility] 044 [facility] 2022-12-29 2022-12-29 Telephone [facility] [id number] Univers 00:00:00 00:00:00 Miya WOLFF [id number] i [id number] [id number] [facility] 044 [facility] 2022-12-23 2022-12-23 Outpatient BLOOD, [facility] DEB [id number] [facility] 06:40:00 11:30:00 SHEREE 00 2022-12-22 2022-12-22 Orders Doctor BEV [id number] Univers 00:00:00 00:00:00 Only Unassigned, TRICIA [id number] ity of [place] [facility] [id number] [place] as [id number] [address] 2022-12-20 2022-12-20 [facility] [id number] [id number] Univers 00:00:00 00:00:00 Miya WOLFF [id number] i [id number] [id number] [address] 2022-12-06 2022-12-06 Outpatient R BRADY [facility] [id number] Univers 14:00:00 14:00:00 EVA itsanket o f [facility] 2022-12-01 2022-12-01 Emergency [facility] [id number] Univers 12:00:00 14:36:00 JEY ity of [facility] 2022-12-01 2022-12-01 Emergency [facility] [id number] Univers 12:00:00 14:36:00 Jey WOLFF [id number] i [id number] [id number] [facility] [address] [place] 2022-11-28 2022-11-28 Telephone [facility] [id number] [id number] Univers 00:00:00 00:00:00 Miya WOLFF [id number] i [id number] [id number] [address] 2022-11-22 2022-11-22 Orders Doctor BEV [id number] [id number] Univers 00:00:00 00:00:00 Only Unassigned, TRICIA [id number] ity of [place] [facility] [id number] David as [id number] [facility] [address] [place] 2022-11-20 2022-11-20 [facility] 1.2.840.114 [id number] Univers 00:00:00 00:00:00 Miya WOLFF [id number] i [id number] [id number] [address] 2022-11-17 2022-11-17 Telephone [facility] 1.2.840.114 [id number] Univers 00:00:00 00:00:00 Miya WOLFF [id number] i ty [facility] [id number] [id number] Or dical NAL [address] [place] [address] 2022-11-11 2022-11-11 Refill [facility] 1.2.840.114 [id number] Univers 00:00:00 00:00:00 Miya WOLFF [id number] i ty of [facility] [place] [id number] Or dical NAL [address] [place] [address] 2022-11-09 2022-11-09 Outpatient R BRADY [facility] [id number] Univers 10:40:00 10:40:00 EVA beatty o f [facility] 2022-11-08 2022-11-08 Patient [facility] 1.2.840.114 [id number] Univers 00:00:00 00:00:00 Secure Msg Miya WOLFF 350.1.13.10 ity of [place]2.7.2.[place] [id number] Or dicms NAL [address] [place] [address] 2022-10-21 2022-10-21 Outpatient R SARMAD LOPES [facility] [id number] Univers 11:00:00 15:17:15 SARMAD LOPES [facility] 2022-10-21 2022-10-21 Office [facility] 1.2.840.114 [id number] Univers 11:00:00 15:17:[address] [facility] 350.1.13.10 ity of [facility] 4.2.7.2.686 David as GABRIELA?BLEA [phone] Or rogelioms CE 092 [facility] OFFICE [facility] 2022-10-21 2022-10-21 Refill [facility] 1.2.840.114 104 [id number] Univers 00:00:00 00:00:00 Miya WOLFF 350.1.13.10 i ty of [facility] 4.2.7.2.[place] [phone] Or dical NAL [address] [place] [address] 2022-10-13 2022-10-13 [facility] [id number] Univers 14:40:00 15:44:42 EVA beatty o f [facility] 2022-10-13 2022-10-13 Office [facility] 1.2.840.114 [id number] Univers 14:40:00 15:44:42 Visit Eva WOLFF 350.1.13.10 ity of [facility] 4.2.7.2.[place] [phone] [facility] [address] [facility] 2022-10-12 2022-10-12 Outpatient [facility] [id number] Univers 15:08:01 23:59:00 MIYA beatty of [facility] 2022-10-12 2022-10-12 [facility] 1.2.840.114 [id number] Univers 15:08:01 23:59:00 Encounter Miya WOLFF 350.1.13.10 ity of [facility] 4.2.7.2.[place] [phone] [facility] [address] 2022-10-06 2022-10-06 Refill [facility] 1.2.840.114 104 [id number] Univers 00:00:00 00:00:00 Miya WOLFF 350.1.13.10 i ty of [place] 4.2.7.2.[place] [phone] Or dical NAL [address] [facility] 2022-10-05 2022-10-[address] [facility] 1.2.729.467 [id number] Univers 00:00:00 00:00:00 (Out) HEALTH 350.1.13.10 it y of [place].7.2.[place] [id number] [facility] MEDICAL [address] OFFICE BUILDING 2022-10-04 2022-10-04 Office [facility] 1.2.840.114 104 [id number] Univers 16:00:00 16:40:00 Visit Miya WOLFF 350.1.13.10 i ty of [facility] 4.2.7.2.[place] [phone] Or dical NAL [address] [place] [address] 2022-10-04 2022-10-04 Outpatient R JAVAN [facility] [id number] Univers 16:00:00 16:00:00 MIYA beatty [facility] 2022-09-28 2022-09-28 Emergency X [facility] ERT [id number] Univers 12:47:00 16:58:00 , JULIANE beatty [facility] 2022-09-28 2022-09-28 [facility] 1.2.840.114 [id number] Univers 12:47:00 16:58:00 , Juliane WOLFF 350.1.13.10 i [place] 4.2.7.2.[place] [id number] [address] 2022-09-27 2022-09-27 [facility] 1.2.840.114 104 [id number] Univers 00:00:00 00:00:00 Miya WOLFF 350.1.13.10 i ty of [place] 4.2.7.2.[place] [phone] Or dical NAL [address] [place] [address] 2022-09-25 2022-09-25 [facility] 1.2.840.114 103 [id number] Univers 00:00:00 00:00:00 Miya WOLFF 350.1.13.10 i ty of [place] 4.2.7.2.[place] [id number] Or dical NAL [address] [place] [address] 2022-09-18 2022-09-18 [facility] Nabilaokl[facility] citybennie[facility] 1.2.840.114 103 [id number] Univers 00:00:00 00:00:00 Miya WOLFF 350.1.13.10 i ty of [place] 4[place]2.7.2.[place] [phone] Or dical NAL [address] [place] [address] 2022-09-16 2022-09-16 RefDayton [facility] Medical CenterashleyWest[facility] 1.2.840.114 103 [id number] Univers 00:00:00 00:00:00 Miya WOLFF 350.1.13.10 i ty of [facility] 4.2.7.2.[place] [id number] Or dical NAL 044 [facility] 2022-08-25 2022-08-25 Outpatient R RADIOLOGY [facility] [id number] Univers 16:09:30 23:59:00 ity of [facility] 2022-08-25 2022-08-[address] [facility] 1.2.840.114 102 [id number] Univers 16:09:30 23:59:00 Encounter [place] 350.1.13.10 ity of [facility] 4.2.7.2.[place] [id number] [facility] [address] 2022-08-25 2022-08-25 [facility] Radiology [facility] 1.2.840.114 102 [id number] Univers 16:00:00 16:08:00 Encounter [place] 350.1.13.10 ity of [place] 4.2.7.2.[place] [phone] [facility] [address] 2022-08-25 2022-08-25 [facility] Radiology [facility] 1.2.840.114 102 [id number] Univers 15:45:00 15:59:00 Encounter [place] 350.1.13.10 ity of [facility] 4.2.7.2.[place] [id number] [facility] [address] 2022-08-25 2022-08-25 Orders Doctor BEV 1.2.840.114 [id number] Univers 00:00:00 00:00:00 Only Unassigned, TRICIA 350.1.13.10 ity of [place] [facility] 4.2.7.2.686 David as [phone] [facility] [address] 2022-08-24 2022-08-[address] [facility] 1.2.840.114 103 [id number] Univers 00:00:00 00:00:00 Miya WOLFF 350.1.13.10 i ty of [facility] 4.2.7.2.[place] [id number] Or dical NAL 044 [facility] 2022-08-17 2022-08-17 [facility] 1.2.840.114 102 [id number] Univers 00:00:00 00:00:00 Miya WOLFF 350.1.13.10 i ty of [place] 4.2.7.2.[place] [id number] Or dical NAL [address] [place] [address] 2022-07-21 2022-07-21 [facility] 1.2.840.114 102 [id number] Univers 00:00:00 00:00:00 Miya WOLFF 350.1.13.10 i ty of [place] 4.2.7.2.[place] [phone] Or dic[address] 2022-07-07 2022-07-07 [facility] Hospitaldallas ReidPRESBYTER[facility] 1.2.840.114 [id number] Univers 00:00:00 00:00:00 Octavia HERNADEZ 350.1.13.10 ity of [facility] 4.2.7.2.686 [place] CENTER [id number] [address] [facility] 2022-06-24 2022-06-24 [facility] 1.2.840.114 101 [id number] Univers 00:00:00 00:00:00 Miya WOLFF 350.1.13.10 i ty of [place] 4.2.7.2.[place] [id number] Or dicms NAL [address] [place] [address] 2022-06-23 2022-06-23 [facility]PRESBYTER[facility] 1.2.840.114 101 [id number] Univers 00:00:00 00:00:00 Miya WOLFF 350.1.13.10 i ty of [place] 4.2.7.2.[place] [phone] Or dicms NAL [address] [place] [address] 2022-06-21 2022-06-21 Outpatient R JAVAN [facility] [id number] Univers 16:20:00 16:20:00 MIYA beatty [facility] 2022-06-14 2022-06-14 Outpatient R STEPHAN [facility] [id number] Univers 16:00:00 16:00:00 ABBEY beatty [facility] 2022-06-12 2022-06-12 Neo ReidPRESBYTERIAN [facility] 1.2.840.114 [id number] Univers 00:00:00 00:00:00 Octaviajarvis HERNADEZ 350.1.13.10 ity of [place] 4.2.7.2.686 [facility] [place] [id number] [facility] AND [place] [address] [facility] 2022-06-09 2022-06-09 Neo OlsenPRESBYTERIAN ESP[facility] 1.2.840.114 100 [id number] Univers 00:00:00 00:00:00 Miya WOLFF 350.1.13.10 i ty of [place] 4.2.7.2.[place] [phone] Or dical NAL [address] BUILDING 2022-06-07 2022-06-07 [facility] Radiology [facility] 1.2.840.114 100 [id number] Univers 15:44:21 23:59:00 Encounter [place] 350.1.13.10 ity of [place] 4.2.7.2.686 [facility] [place] [id number] [facility] [address] 2022-06-07 2022-06-07 Outpatient R RADIOLOGY [facility] [id number] Univers 15:43:47 15:43:47 ity [facility] 2022-06-07 2022-06-07 [facility] Radiology [facility] 1.2.840.114 100 [id number] Univers 15:43:47 15:43:47 Encounter [place] 350.1.13.10 ity of [place] 4.2.7.2.686 [facility] [place] [id number] [facility] [address] 2022-06-03 2022-06-03 Outpatient R JAVAN, [facility] [id number] [id number] Univers 14:00:00 14:29:10 MIYA beatty [facility] 2022-06-03 2022-06-03 Office [facility] 1.2.840.114 100 [id number] Univers 14:00:00 14:29:10 Visit Miya WOLFF 350.1.13.10 i ty of [place] 4[place]2.7.2.[place] [phone] Or dical CRISTOBAL [address] [place] [address] 2022-05-28 2022-05-28 Refill [facility] 1.2.840.114 100 [id number] Univers 00:00:00 00:00:00 Miya WOLFF 350.1.13.10 i ty [place] 4.2.7.2.[place] [id number] Or dic[address] 2022-05-24 2022-05-24 Outpatient [facility] [id number] Univers 16:00:00 16:00:00 ABBEY johnsonsanket [facility] 2022-05-12 2022-05-12 Outpatient [facility] [id number] [id number] Univers 15:40:00 15:40:00 MIYA [facility] 2022-05-12 2022-05-12 Telephone [facility] 1.2.840.114 1 [id number] Univers 00:00:00 00:00:00 Miya WOLFF 350.1.13.10 i ty of [place] 4.2.7.2.[place] [phone] [address] 2022-05-12 2022-05-12 Telephone [facility] 1.2.051.995 [id number] [id number] Univers 00:00:00 00:00:00 Octavia HERNADEZ 350.1.13.10 ity [facility] 4.2.7.2.[place] [id number] [address] [facility] 2022-04-21 2022-04-21 Outpatient R [facility] [id number] Univers 15:45:00 15:45:00 ABBEY sanket [facility] 2022-04-13 2022-04-13 Refill [facility] 1.2.840.114 [id number] Univers 00:00:00 00:00:00 Miya WOLFF 350.1.13.10 i ty of [place] 4[place]2.7.2.[place] [phone] Or dic[address] 2022-03-302022-03-30 [facility] 1.2.840.114 [id number] [id number] Univers 00:00:00 00:00:00 Miya WOLFF 350.1.13.10 i ty of [place] 4.2.7.2.686 [facility]inela [facility] [phone] Or dical NAL 044 [facility] 2022-02-18 2022-02-18 Out[facility] 1042 [id number] Univers 00:00:00 00:00:00 MIYA beatty [facility] 2022-02-17 2022-02-17 [facility] 1.2.840.114 [id number] Univers 00:00:00 00:00:00 Miya TIMMONS 350.1.13.10 it y of [facility] 4.2.7.2.686 [facility] [id number] [facility] [address] 2022-02-10 2022-02-10 Outpatient [facility] [id number] [id number] Univers 12:54:03 23:59:00 MIYA beatty [facility] 2022-02-10 2022-02-10 [facility] 1.2.840.114 97 [id number] Univers 12:54:03 23:59:00 Encounter Miya WOLFF 350.1.13.10 ity [facility] 4.2.7.2.686 [facility] [id number] [facility] [address] 2022-02-03 2022-02-03 Emergency X JOSAFATPRESBYTERIAN ESP[facility] ERT [id number] Univers 08:19:00 09:38:00 CAROLINA beatty [facility] 2022-02-03 2022-02-03 Emergency JosafatPRESBYTERIAN ESP[facility] 1.2.840.114 97 [id number] Univers 08:19:00 09:38:00 Carolina WOLFF 350.1.13.10 ity [facility] 4.2.7.2.686 [facility] [id number] [facility] [address] 2022-02-02 2022-02-02 Refill [facility]West[facility] 1.2.840.114 [id number] Univers 00:00:00 00:00:00 Miya WOLFF 350.1.13.10 i ty of [facility] 4.2.7.2.[place] [id number] Or dical NAL 044 [facility] 2022-01-27 2022-01-27 Outpatient R JAVAN [facility] 1041 [id number] [facility] 16:00:00 17:05:13 MIYA rogerio [facility] 2022-01-27 2022-01-27 Office [facility] 1.2.840.114 [id number] [facility] 16:00:00 17:05:13 Visit Miya WOLFF 350.1.13.10 i ty of [place] 4.2.7.2.686 [place] [id number] Or dical NAL 044 [facility] 2022-01-26 2022-01-26 Culinary Intern Sherry, Adc Lab Main [facility] 1.2.8 40.114 [id number] Univers 07:45:00 08:00:00 Visit Miya Olsen 350.1.13.10 ity of [facility] 4.2.7.2.[place] [id number] Or ayde [facility] 353 [facility] 2022-01-26 2022-01-26 Outpatient [facility] 1042 [id number] Univers 07:45:00 07:45:00 MIYA beatty [facility] 2022-01-12 2022-01-12 Telephone [facility] 1.2.840.114 9 [id number] Univers 00:00:00 00:00:00 Miya WOLFF 350.1.13.10 i ty of [facility] 4.2.7.2.[place] [phone] Or dical NAL 044 [facility] 2022-01-03 2022-01-03 Telephone [facility] 1.2.840.114 9 [id number] Univers 00:00:00 00:00:00 Miya WOLFF 350.1.13.10 i ty of [facility] 4.2.7.2.[place] [phone] Or dical NAL 044 [facility] 2021-12-302021-12-30 Telephone [facility] 1.2.840.114 9 [id number] Univers 00:00:00 00:00:00 Miya WOLFF 350.1.13.10 i ty of [facility] 4.2.7.2.[place] [id number] Or dic[address] 2021-12-29 2021-12-29 Telephone [facility] 1.2.840.114 [id number] Univers 00:00:00 00:00:00 Miya WOLFF 350.1.13.10 i ty of [place] 4.2.7.2.686 [place] [id number] [address] 2021-12-24 2021-12-24 Refill [facility] 1.2.840.114 [id number] Univers 00:00:00 00:00:00 Miya WOLFF 350.1.13.10 i ty of [place] 4.2.7.2.686 [place] [id number] [address] 2021-12-24 2021-12-24 [facility] 1.2.840.114 9 [id number] Univers 00:00:00 00:00:00 Miya WOLFF 350.1.13.10 i ty of [facility] 4.2.7.2.[place] [id number] [address] 2021-12-23 2021-12-23 Outpatient [facility] 1041 [id number] Univers 16:00:00 16:43:06 MIYA beatty [facility] 2021-12-23 2021-12-23 Office [facility] 1.2.840.114 [id number] [facility] 16:00:00 16:43:06 Visit Miya WOLFF 350.1.13.10 i ty of [facility] 4.2.7.2.686 [place] [phone] [address] 2021-12-23 2021-12-23 Outpatient [facility] 1041 [id number] Univers 16:00:00 16:00:00 MIYA beatty [facility] 2021-12-23 2021-12-23 Telephone [facility]PRES[facility] 1.2.840.114 9 [id number] Univers 00:00:00 00:00:00 Miya WOLFF 350.1.13.10 i ty of [facility] 4.2.7.2.686 [place] [id number] [address] 2021-12-19 2021-12-19 Refill [facility] 1.2.840.114 [id number] [id number] Univers 00:00:00 00:00:00 Miya WOLFF 350.1.13.10 i ty of [facility] 4.2.7.2.[place] [id number] [address] 2021-12-17 2021-12-[address] [facility] 1.2.840.114 [id number] Univers 00:00:00 00:00:00 Secure Msg UnassignedNEW 350.1.13.10 ity of [place] [facility] 4.2.7.2.686 [place] [id number] [address] 2021-12-09 2021-12-09 Telephone [facility] 1.2.840.114 9 [id number] Univers 00:00:00 00:00:00 Miya WOLFF 350.1.13.10 i ty of [facility] 4.2.7.2.686 [place] [id number] [address] 2021-12-08 2021-12-08 Outpatient R JAVAN [facility] [id number] [id number] Univers 15:40:00 16:27:17 MIYA beatty [facility] 2021-12-08 2021-12-08 Telemedici [facility]PRES[facility] 1.2.840.114 [id number] Univers 15:40:00 16:27:17 ne Visit Miya WOLFF 350.1.13.10 ity of [facility] 4.2.7.2.686 [place] [id number] [address] 2021-12-06 2021-12-06 Patient [facility]PRES[facility] 1.2.840.114 [id number] Univers 00:00:00 00:00:00 Secure Msg Miya WOLFF 350.1.13.10 ity of [place] 4.2.7.2.686 [place] [id number] [facility] 044 [facility] 2021-12-03 2021-12-03 Culinary Intern Sherry, Adc Lab Main [facility] 1.2.8 40.114 [id number] Univers 07:45:00 08:00:00 Visit Javan Miya WOLFF 350.1.13.10 ity of [place] 4.2.7.2.686 [place] [id number] [facility] 353 [facility] 2021-12-03 2021-12-03 Outpatient [facility] 1041 [id number] Univers 07:45:00 07:45:00 MIYA beatty [facility] 2021-12-03 2021-12-03 Orders Doctor BEV 1.2.840.114 [id number] Univers 00:00:00 00:00:00 Only Unassigned, TRICIA 350.1.13.10 ity of [place] [facility] 4.2.7.2.686 David as [id number] [address] 2021-11-26 2021-11-26 Refdallas TomasPRESBYTERIAN ESPA[facility]OLA [facility] 1.2.840.114 [id number] Univers 00:00:00 00:00:00 Nathlay WOLFF 350.1.13.10 i ty of [place] 4.2.7.2.686 [place] [id number] [facility] 044 [facility] 2021-11-19 2021-11-19 Refill [facility]PRESBYTER[facility] 1.2.840.114 [id number] Univers 00:00:00 00:00:00 Miya WOLFF 350.1.13.10 i ty of [place] 4.2.7.2.[place] [id number] [facility] 044 [facility] 2021-10-28 2021-10-28 Culinary Intern Only, Ang Db Test [facility] 1.2.8 40.114 [id number] Univers 14:00:00 14:15:00 Visit Chary Myers [facility] 350.1.13.10 ity of [place] 4.2.7.2.686 David as GABRIELA?BLEA [id number] [address] OFFICE [facility] 2021-10-28 2021-10-28 Outpatient R FRANK [facility] [id number] Univers 14:00:00 14:00:00 [facility] 2021-10-24 2021-10-24 Culinary Intern Only, Ang Db Test [facility] 1.2.8 40.114 [id number] Univers 09:30:00 09:45:00 Visit Chary Myers [facility] 350.1.13.10 ity of [place] 4.2.7.2.686 David as GABRIELA?BLEA [id number] [address] 2021-10-24 2021-10-24 Outpatient R FRANK [facility] [id number] Univers 09:30:00 09:28:17 [facility] 2021-10-22 2021-10-22 Patient [facility] 1.2.840.114 [id number] Univers 00:00:00 00:00:00 Secure Msg Miya WOLFF 350.1.13.10 ity of [place] 4.2.7.2.686 [place] [id number] [address] 2021-10-05 2021-10-05 Telephone [facility] 1.2.840.114 [id number] Univers 00:00:00 00:00:00 Miya WOLFF 350.1.13.10 i ty of [place] 4.2.7.2.686 [place] [id number] [address] 2021-10-01 2021-10-01 Outpatient R NEELAM [facility] [id number] Univers 16:30:00 17:17:32 NATHALY [facility] 2021-10-01 2021-10-01 Office TomasPRESBYTERIAN [facility] 1.2.840.114 [id number] Univers 16:30:00 17:17:32 Visit Nathaly WOLFF 350.1.13.10 i ty of [facility] 4.2.7.2.686 [place] [id number] [address] 2021-10-01 2021-10-01 [facility]PRES[facility] 1.2.840.114 [id number] Univers 00:00:00 00:00:00 Miya WOLFF 350.1.13.10 i ty of [place] 4.2.7.2.686 [place] [id number] [address] 2021-09-28 2021-09-28 Refdallas OlsenPRESBYTERIAN ESPAÑOLA [facility]OSP[facility] 1.2.840.114 [id number] Univers 00:00:00 00:00:00 Miya WOLFF 350.1.13.10 i ty of [facility] 4.2.7.2.[place] [id number] [address] 2021-09-25 2021-09-25 Refdallas OlsenPRESBYTERIAN ESPA[facility]OL[facility] 1.2.840.114 [id number] [id number] Univers 00:00:00 00:00:00 Miya WOLFF 350.1.13.10 i ty of [place] 4.2.7.2.686 [place] [id number] [address] 2021-09-24 2021-09-24 Refdallas OlsenPRESBYTERIAN ESPAÑOLA [facility] 1.2.840.114 [id number] Univers 00:00:00 00:00:00 Miya WOLFF 350.1.13.10 i ty [facility] [place] [id number] [address] 2021-08-10 2021-08-10 Outpatient R JAVAN [facility] [id number] Univers 15:40:00 15:40:00 MIYA beatty [facility] 2021-07-24 2021-07-24 Neo [facility] 1.2.840.114 [id number] Univers 00:00:00 00:00:00 Miya WOLFF 350.1.13.10 i ty of [place] [phone] Or dical NAL 044 [facility] 2021-07-23 2021-07-23 [facility] 1.2.840.114 [id number] Univers 00:00:00 00:00:00 Miya WOLFF 350.1.13.10 i ty of [place] [id number] Or dical NAL 044 [facility] 2021-06-18 2021-06-18 [facility] 1.2.840.114 [id number] Univers 00:00:00 00:00:00 Miya WOLFF 350.1.13.10 i ty [facility] 4[place] [phone] Or dical NAL 225 [facility] 2021-06-14 2021-06-14 [facility] 1.2.840.114 [id number] Univers 00:00:00 00:00:00 Miya WOLFF 350.1.13.10 i ty [facility] 4[place]2.[place] [id number] Or dical NAL 044 [facility] 2021-06-10 2021-06-10 [facility] 1.2.840.114 [id number] Univers 00:00:00 00:00:00 Miya WOLFF 350.1.13.10 i ty [place] [id number] Or dical NAL 044 [facility] 2021-06-08 2021-06-08 Telephone [facility] 1.2.840.114 [id number] Univers 00:00:00 00:00:00 Miya WOLFF 350.1.13.10 i ty [facility] 4[place] [id number] Or dical NAL 044 [facility] 2021-05-31 2021-05-31 Telephone [facility] 1.2.840.114 [id number] Univers 00:00:00 00:00:00 Miya WOLFF 350.1.13.10 i ty of [place] 4[place] [id number] Or dical NAL 044 [facility] 2021-05-27 2021-05-27 [facility] 1.2.840.114 [id number] Univers 00:00:00 00:00:00 Miya WOLFF 350.1.13.10 i ty [place] [phone] Or dic[address] 2021-05-27 2021-05-27 Telephone [facility] 1.2.840.114 [id number] Univers 00:00:00 00:00:00 Miya WOLFF 350.1.13.10 i ty [place] 4[place] [phone] Or dic[address] 2021-05-20 2021-05-20 Out[facility] [id number] Univers 15:30:00 15:32:49 NIKA beatty of [facility] 2021-05-20 2021-05-20 Office [facility] 1.2.840.114 [id number] Univers 15:30:00 15:32:49 Visit Nika WOLFF 350.1.13.10 ity of [place] 4.2.7.2.686 [place] [phone] [facility] 134 [facility] 2021-05-18 2021-05-18 [facility] 1.2.840.114 [id number] Univers 00:00:00 00:00:00 [facility] 350.1.13.10 it y of [place] 4.2.7.2.686 David as GABRIELA?BLEA [phone] [address] OFFICE BUILDING 2021-05-13 2021-05-13 Telephone [facility] 1.2.840.114 [id number] Univers 00:00:00 00:00:00 Miya WOLFF 350.1.13.10 i ty of [place] 4.2.7.2.[place] [phone] Or dic[address] 2021-05-11 2021-05-11 Telephone [facility] 1.2.840.114 [id number] Univers 00:00:00 00:00:00 Miya WOLFF 350.1.13.10 i ty [facility] 4.2.7.2.[place] [phone] Or dic[address] 2021-05-10 2021-05-10 [facility] 1.2.840.114 [id number] Univers 00:00:00 00:00:00 Miya WOLFF 350.1.13.10 i ty [facility] 4.2.7.2.[place] [phone] [address] 2021-05-10 2021-05-10 [facility] 12.840.114 [id number] Univers 00:00:00 00:00:00 Miya WOLFF 350.1.13.10 i ty of [place] 4.2.7.2.[place] [phone] [address] 2021-05-06 2021-05-06 Outpatient R [facility] 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 1.2.840.114 [id number] Univers 12:31:00 14:31:00 Nika WOLFF 350.1.13.10 ity of [facility] 4.2.7.2.[place] [phone] [address] 2021-05-06 2021-05-06 [facility] 1.2.840.114 [id number] Univers 00:00:00 00:00:00 Miya WOLFF 350.1.13.10 i ty of [facility] 4.2.7.2.[place] [phone] Or dical NAL 044 [facility] 2021-05-05 2021-05-05 Outpatient R [facility] [id number] Univers 16:00:00 16:31:52 PETER itsanket [facility] 2021-05-05 2021-05-05 [facility] 1.2.840.114 [id number] Univers 16:00:00 16:31:52 Visit Miya WOLFF 350.1.13.10 i ty of [place] 4.2.7.2.686 [place] [phone] Or dical NAL 044 [facility] 2021-05-04 2021-05-04 Culinary Intern Sherry, Adc Lab Main [facility] 1.2.8 40.114 [id number] Univers 12:15:00 12:30:00 Visit GabeminorNika 350.1.13.10 ity of [facility] 4.2.7.2.[place] [phone] Or dical NAL 353 [facility] 2021-05-04 2021-05-04 Outpatient R [facility] [id number] Univers 12:15:00 12:15:00 ity [facility] 2021-05-04 2021-05-04 Laboratory Only, Adc Test [facility] 1.2.840. 114 [id number] Univers 12:00:00 12:15:00 Only Nika Berry 350.1.13.10 ity of [facility] 4.2.7.2.[place] [phone] [facility] [address] 2021-05-04 2021-05-04 Outpatient R ADUM, [facility] [id number] Univers 12:00:00 12:00:00 NIKA beatty [facility] 2021-05-04 2021-05-04 Orders Doctor BEV 1.2.840.114 [id number] Univers 00:00:00 00:00:00 Only Unassigned, TRICIA 350.1.13.10 ity [facility] 4.2.7.2.686 David as [phone] [facility] [address] 2021-04-22 2021-04-22 Outpatient R ADUM, [facility] [id number] Univers 14:30:00 15:09:50 NIKA beatty [facility] 2021-04-22 2021-04-22 [facility] 1.2.840.114 [id number] Univers 14:30:00 15:09:50 Visit Nika WOLFF 350.1.13.10 ity [facility] 4.2.7.2.686 [facility] [phone] Or dical NAL 134 [facility] 2021-04-22 2021-04-22 Outpatient R ADUM, [facility] [id number] Univers 15:00:00 15:00:00 NIKA beatty [facility] 2021-04-22 2021-04-22 Neo [facility] 1.2.840.114 [id number] Univers 00:00:00 00:00:00 Miya WOLFF 350.1.13.10 i ty [facility] 4.2.7.2.686 [facility] [phone] Or dical NAL 044 [facility] 2021-04-20 2021-04-20 Outpatient R STEPHAN, [facility] [id number] Univers 16:15:00 16:50:21 ABBEY rogerio [facility] 2021-04-20 2021-04-20 Office [facility] 1.2.724.438 [id number] Univers 16:15:00 16:50:21 Visit Abbey WOLFF 350.1.13.10 i ty of [place] 4.2.7.2.686 [place] [phone] Or dical NAL 188 [facility] 2021-04-19 2021-04-19 Refill [facility] 1.2.840.114 [id number] Univers 00:00:00 00:00:00 Miya WOLFF 350.1.13.10 i ty of [place] 4.2.7.2.686 [place] [phone] Or dical NAL 044 [facility] 2021-04-12 2021-04-12 Telephone [facility] 1.2.840.114 [id number] Univers 00:00:00 00:00:00 Miya WOLFF 350.1.13.10 i ty of [place] 4.2.7.2.686 [place] [phone] Or dical NAL 044 [facility] 2021-04-02 2021-04-02 Outpatient R [facility] DEB [id number] Univers 08:03:00 10:35:00 ABBEY itsanket of [facility] 2021-04-02 2021-04-02 [facility] 1.2.840.114 [id number] Univers 08:03:00 10:35:00 Encounter Abbey WOLFF 350.1.13.10 ity of [place] 4.2.7.2.686 [place] [phone] [facility] [address] 2021-04-02 2021-04-02 Surgery [facility] 1.2.838.677 [id number] Univers 09:32:00 10:30:00 Abbey WOLFF 350.1.13.10 i ty of [place] 4.2.7.2.686 [place] [phone] [facility] [address] 2021-04-02 2021-04-02 Orders Doctor PABLO 1.2.840.114 [id number] Univers 00:00:00 00:00:00 Only Unassigned, TRICIA 350.1.13.10 ity of [place] [facility] 4.2.7.2.686 David as [phone] [address] 2021-03-19 2021-03-19 Outpatient R [facility] [id number] Univers 15:30:00 15:30:00 NIKA ity [facility] 2021-03-16 2021-03-16 Telephone [facility] 1.2.269.551 [id number] Univers 00:00:00 00:00:00 Nika WOLFF 350.1.13.10 ity of [place] 4.2.7.2.686 [place] [phone] Or dical NAL 134 [facility] 2021-03-10 2021-03-10 [facility] 1.2.840.114 [id number] Univers 13:48:49 23:59:00 Encounter Eva WOLFF 350.1.13.10 ity of [facility] 4.2.7.2.[place] [phone] [address] 2021-03-10 2021-03-10 Outpatient R [facility] [id number] Univers 13:46:21 13:47:00 EVA beatty o f [facility] 2021-03-10 2021-03-10 [facility] 1.2.840.114 [id number] Univers 13:46:21 13:47:00 Encounter Eva WOLFF 350.1.13.10 ity of [facility] 4.2.7.2.[place] [phone] [address] 2021-03-04 2021-03-04 Outpatient R [facility] 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 [id number] Univers 12:51:00 16:33:00 NIKA ity [facility] 2021-03-04 2021-03-04 [facility] 1.2.840.114 [id number] Univers 12:51:00 16:33:00 Encounter Nika WOLFF 350.1.13.10 ity of [facility] 4.2.7.2.[place] [phone] [facility] [address] 2021-03-04 2021-03-04 Surgery [facility] 1.2.840.114 [id number] Univers 13:25:00 15:26:00 Nika L [place] 350.1.13.10 ity of [facility] 4.2.7.2.686 [place] [phone] [facility] [address] 2021-03-04 2021-03-[address] [facility] 1.2.050.126 [id number] Univers 00:00:00 00:00:00 Eva WOLFF 350.1.13.10 ity of [place] 4.2.7.2.686 [place] [phone] [facility] 059 [facility] 2021-03-04 2021-03-04 Orders Doctor BEV 1.2.840.114 [id number] Univers 00:00:00 00:00:00 Only Unassigned, TRICIA 350.1.13.10 ity of [place] [facility] 4.2.7.2.686 David as [phone] [facility] [address] 2021-03-02 2021-03-02 Culinary Intern 1, Adc Lab [facility] 1.2.840.114 [id number] Univers 11:38:41 11:53:41 Visit Nika Berry 350.1.13.10 ity of [place] 4.2.7.2.686 [place] [phone] [facility] [address] 2021-03-02 2021-03-02 Outpatient R [facility] [id number] Univers 11:30:00 11:30:00 ity of [facility] 2021-03-02 2021-03-02 Outpatient R KATHERINE [facility] [id number] Univers 11:30:00 11:30:00 NIKA itsanket of [facility] 2021-03-02 2021-03-02 Orders Doctor PABLO 1.2.840.114 [id number] Univers 00:00:00 00:00:00 Only Unassigned, TRICIA 350.1.13.10 ity of [place] [facility] 4.2.7.2.686 David as [phone] [facility] [address] 2021-03-01 2021-03-01 Out[facility] [id number] Univers 00:00:00 00:00:00 EVA beatty o f [facility] 2021-03-01 2021-03-01 Outpatient R BRADY, [facility] [id number] Univers 00:00:00 00:00:00 EVA johnsony o f [facility] 2021-02-26 2021-02-26 Outpatient R ADUM, [facility] [id number] Univers 16:00:00 17:26:37 NIKA ity [facility] 2021-02-26 2021-02-26 Outpatient R ADUM, [facility] [id number] Univers 16:00:00 17:26:37 NIKA ity [facility] 2021-02-26 2021-02-26 Office Ad, [facility] 1.2.840.114 [id number] Univers 15:40:04 17:26:37 Visit Nika Boothe [place] 350.1.13.10 ity of [facility] 4.2.7.2.686 [place] [phone] Or dical NAL [address] [place] [address] 2021-02-26 2021-02-26 Outpatient R ADUM, [facility] [id number] Univers 16:00:00 16:00:00 NIKA ity [facility] 2021-02-26 2021-02-26 [facility] 1.2.840.114 [id number] Univers 00:00:00 00:00:00 Surgery Nika Tl WOLFF 350.1.13.10 ity of [facility] 4.2.7.2.686 [place] [phone] Or dical NAL 134 [facility] 2021-02-26 2021-02-26 Orders Doctor BEV 1.2.840.114 [id number] Univers 00:00:00 00:00:00 Only Unassigned, TRICIA 350.1.13.10 ity of [place] [facility] 4.2.7.2.686 David as [phone] [address] 2021-02-25 2021-02-25 Prep [facility] 1.2.840.114 [id number] Univers 00:00:00 00:00:00 Surgery Diann WOLFF 350.1.13.10 ity of [place] 4.2.7.2.686 [place] [phone] Or dical NAL 204 [facility] 2021-02-24 2021-02-24 Orders Doctor BEV 1.2.840.114 [id number] Univers 00:00:00 00:00:00 Only Unassigned, TRICIA 350.1.13.10 ity of [place] [facility] 4.2.7.2.686 David as [phone] [address] 2021-02-23 2021-02-23 Outpatient R [facility] [id number] Univers 14:30:00 15:55:10 ABBEY rogerio [facility] 2021-02-23 2021-02-23 Office [facility] 1.2.610.448 [id number] Univers 14:21:20 15:55:10 Visit Abbey WOLFF 350.1.13.10 i ty [facility] 4.2.7.2.686 [place] [phone] Or dical NAL 188 [facility] 2021-02-23 2021-02-23 Outpatient R [facility] [id number] Univers 14:30:00 14:30:00 ABBEY beatty [facility] 2021-02-23 2021-02-23 Orders Doctor BEV 1.2.840.114 [id number] Univers 00:00:00 00:00:00 Only Unassigned, TRICIA 350.1.13.10 ity of [place] [facility] 4.2.7.2.686 David as [phone] [address] 2021-02-17 2021-02-17 Outpatient R [facility] [id number] Univers 14:10:00 23:59:00 EVA beatty o f [facility] 2021-02-17 2021-02-17 [facility] 1.2.840.114 [id number] Univers 14:10:00 23:59:00 Encounter Eva WOLFF 350.1.13.10 ity of [place] 4.2.7.2.686 [place] [phone] Or dical NAL 846 [facility] 2021-02-172021-02-17 Outpatient R BRADY, [facility] [id number] Univers 15:40:00 14:10:44 EVA robles [facility] 2021-02-17 2021-02-17 Outpatient R BRADY, [facility] [id number] Univers 15:40:00 14:10:44 EVA robles [facility] 2021-02-17 2021-02-17 Office [facility] 1.2.840.114 [id number] Univers 13:16:10 14:10:44 Visit Eva WOLFF 350.1.13.10 ity of [place] 4.2.7.2.686 [place] [phone] Or dicrosalba NAL [address] [place] [address] 2021-02-17 2021-02-17 Office [facility] 1.2.840.114 [id number] Univers 13:16:10 14:10:44 Visit Eva WOLFF 350.1.13.10 ity of [place] 4.2.7.2.686 [place] [phone] Or ayde NAL [address] [place] [address] 2021-02-16 2021-02-16 Telephone [facility] 1.2.840.114 [id number] Univers 00:00:00 00:00:00 Miya WOLFF 350.1.13.10 i ty of [place] 4.2.7.2.686 [place] [phone] Or dicms NAL 044 [facility] 2021-02-11 2021-02-11 Patient [facility] 1.2.840.114 [id number] Univers 00:00:00 00:00:00 Secure Msg Miya WOLFF 350.1.13.10 ity of [place] 4.2.7.2.686 [place] [phone] Or dical NAL [address] [place] [address] 2021-02-11 2021-02-11 Telephone [facility] 1.2.840.114 [id number] Univers 00:00:00 00:00:00 Miya WOLFF 350.1.13.10 i ty of [place] 4.2.7.2.686 [place] [phone] Me dical NAL 044 [facility] 2021-02-10 2021-02-10 [facility] 1.2.840.114 [id number] Univers 10:33:05 23:59:00 Encounter Miya Wolff 350.1.13.10 ity of [place] 4[place]2.7.2.686 [place] [phone] [facility] [address] 2021-02-10 2021-02-10 Outpatient R [facility] [id number] [id number] Univers 10:33:05 23:59:00 MIYA johnsonsanket of [facility] 2021-02-09 2021-02-09 Culinary Intern 2, Adc Lab [facility] 1.2.840.114 [id number] Univers 15:57:13 16:12:13 Visit Miya Olsen 350.1.13.10 ity [place] 4[place]2.7.2.686 [place] [phone] Or dical nal 353 [facility] 2021-02-09 2021-02-09 Outpatient R [facility] [id number] Univers 15:00:00 15:52:52 NIKA alexsanket [facility] 2021-02-09 2021-02-09 Office [facility] 1.2.840.114 [id number] Univers 14:35:17 15:52:52 Visit Nika Wolff 350.1.13.10 ity [place] 4[place]2.7.2.686 [place] [phone] Or dical nal 134 [facility] 2021-02-09 2021-02-09 Outpatient R ADUM, [facility] [id number] Univers 15:00:00 15:00:00 NIKA rogerio [facility] 2021-02-08 2021-02-08 Telephone [facility] 1.2.250.459 [id number] Univers 00:00:00 00:00:00 Bev Wolff 350.1.13.10 i ty of [place] 4[place]2.7.2.686 [place] [phone] Or dical nal 188 [facility] 2021-02-03 2021-02-03 [facility] 1.2.840.114 [id number] Univers 11:49:31 23:59:00 Encounter Miya Wolff 350.1.13.10 ity of [place] 4.2.7.2.686 [place] [phone] [address] 2021-02-03 2021-02-03 Outpatient [facility] [id number] Univers 00:00:00 00:00:00 MIYA itsanket [facility] 2021-02-03 2021-02-03 Telephone [facility] 1.2.840.114 [id number] Univers 00:00:00 00:00:00 Miya Wolff 350.1.13.10 i ty of [place] 4.2.7.2.686 [place] [phone] Or dical nal 044 [facility] 2021-01-26 2021-01-26 Letter [facility] 1.2.840.114 [id number] Univers 00:00:00 00:00:00 (Out) Miya Wolff 350.1.13.10 i ty of [place] 4.2.7.2.686 [place] [phone] Or dical nal 044 [facility] 2021-01-21 2021-01-21 Telephone [facility] 1.2.840.114 [id number] Univers 00:00:00 00:00:00 Miya Wolff 350.1.13.10 i ty of [place] 4.2.7.2.686 [place] [phone] Or dical nal 044 [facility] 2021-01-20 2021-01-20 Office [facility] 1.2.840.114 [id number] Univers 15:33:31 17:02:48 Visit Miya Wolff 350.1.13.10 i ty of [place] 4.2.7.2.686 [place] [phone] Or dical nal 044 [facility] 2021-01-20 2021-01-20 Outpatient R [facility] [id number] Univers 16:00:00 16:00:00 MIYA sanket [facility] 2021-01-07 2021-01-[address] [facility] 1.2.840.114 [id number] Univers 00:00:00 00:00:00 Miya [place] 350.1.13.10 i ty of [place] 4.2.7.2.[place] [phone] [facility] [address] [facility] 2020-12-11 2020-12-11 Outpatient R BUCKY [facility] [id number] Univers 15:40:00 15:40:00 RUSSELL [facility] 2020-12-11 2020-12-11 Imm/Inj Nurse, Adc Pob Immunization [facility] 1.2.840.114 [id number] Univers 11:44:57 11:45:04 Visit Russell Olvera 350.1.13 .10 [place] [phone] [facility] [address] [facility] 2020-11-14 2020-11-14 Imm/Inj Vaccine, Adc Family [facility] 1.2.84 0.114 [id number] Univers 13:56:15 14:06:15 Visit [facility]za [facility] 350.1.13.10 ity khalif [place] 4.2.7.2.686 David as Professio [phone] Or dical [facility] [address] Office [facility] One 2020-11-14 2020-11-14 Outpatient R ZAC [facility] [id number] Univers 13:30:00 13:30:00 [facility] 2020-10-24 2020-10-24 Telephone Provider, [facility] 1.2.840.114 [id number] Univers 00:00:00 00:00:00 Ang [facility] 350.1.13.10 ity of [facility] 4.2.7.2.686 David as Professio [phone] [facility] [address] Office Building One 2020-10-22 2020-10-22 Urgent Provider, [facility] 1.2.840.114 [id number] Univers 10:21:57 11:20:22 Care Mary Lindo [facility] 350.1.13.10 ity of [place] 4.2.7.2.686 David as Professio [phone] [address] Office [facility] 2020-10-22 2020-10-22 Outpatient [facility] [id number] Univers 10:20:00 10:20:00 MARY [facility] 2020-07-03 2020-07-03 Outpatient R [facility] [id number] Univers 10:00:00 10:00:00 FESTUS [facility] 2020-07-02 2020-07-02 Patient [facility] 1.2.840.114 [id number] Univers 00:00:00 00:00:00 Outreach Russell [facility] 350.1.13.10 i ty of [place] [facility] 4.2.7.2.686 [place] [phone] [address] 2020-04-23 2020-04-23 Outpatient R [facility] [id number] Univers 16:20:00 16:20:00 MIYA sanket [facility] 2020-01-28 2020-01-28 [facility] 1.2.840.114 [id number] 00:00:00 00:00:00 Miya Wolff 350.1.13.10 [place] 4.2.7.2.686 Professio [phone] [address] 2020-01-28 2020-01-28 Refill [facility] 1.2.840.114 [id number] Univers 00:00:00 00:00:00 Miya Wolff 350.1.13.10 i ty of [place]2.7.2.686 [place] [phone] [address] 2020-01-21 2020-01-21 Office [facility] 1.2.840.114 [id number] Univers 15:55:21 16:32:24 Visit Miya Wolff 350.1.13.10 i ty of [place] 4.2.7.2.686 [place] [phone] Or dical nal [address] [place] [address] 2020-01-21 2020-01-21 Office [facility] 1.2.840.114 [id number] 15:55:21 16:32:24 Visit Miya Wolff 350.1.13.10 [place] 4.2.7.2.686 Professio [phone] [address] 2020-01-21 2020-01-21 Outpatient R [facility] [id number] Univers 16:00:00 16:00:00 MIYA beatty [facility] 2020-01-15 2020-01-15 Outpatient R [facility] [id number] Univers 15:00:00 15:00:00 MIYA [facility] 2020-01-03 2020-01-03 Transition Marsha Copeland 1.2.840.114 [id number] Univers 00:00:00 00:00:00 of Care Karen Mueller 350.1.13.10 ity of [place] 4.2.7.2.686 [place] [phone] [facility] [address] 2020-01-01 2020-01-01 [facility] 1.2.117.309 [id number] Univers 14:37:00 17:46:00 Ramirez Wolff 350.1.13.10 i ty of [place] 4.2.7.2.686 [place] [phone] [facility] [address] 2020-01-01 2020-01-01 [facility] 1.2.840.114 [id number] [id number] Univers 13:13:43 14:23:28 Visit Miya Wolff 350.1.13.10 i ty of [place] 4.2.7.2.686 [place] [phone] Or dic[address] 2020-01-01 2020-01-01 Outpatient R NABILAJILLGORDONPRE[facility] [id number] Univers 13:20:00 13:20:00 MIYA beatty [facility] 2019-12-30 2019-12-30 Outpatient R CHE [facility] [id number] Univers 11:40:00 11:40:00 GEORGE beatty [facility] 2019-12-30 2019-12-30 Laboratory Lab, [facility] I [facility] 1.2. 840.114 [id number] Univers 10:16:20 10:36:20 Only [facility] 350.1.13.10 ity of [place] 4.2.7.2.686 David as Professio [phone] [address] Office [facility] 2019-12-30 2019-12-30 [facility] 1.2.840.114 [id number] Univers 00:00:00 00:00:00 (Out) [facility] [id number] it y of [place] [id number] David as Professio [phone] Or dicms nal [address] [place] [address] 2019-11-14 2019-11-14 [facility] [id number] Univers 14:40:00 14:40:00 GEORGE beatty [facility] 2019-11-14 2019-11-14 Culinary Intern Lab, [facility] 1.2. 840.114 [id number] Univers 14:18:15 14:37:06 Visit [facility] [id number] ity of [place] [id number] David as Professio [phone] Or dicms nal [address] [place] [address] 2019-10-15 2019-10-15 Laboratory Lab, [facility] 1.2. 840.114 [id number] Univers 13:23:22 13:43:22 Only [facility] [id number] ity of [place] [id number] David as Professio [phone] Or dic[address] Office [facility] 2019-10-15 2019-10-15 Outpatient R CHE [facility] [id number] Univers 13:20:00 13:20:00 GEORGE beatty [facility] 2019-08-28 2019-08-28 Outpatient R GUICHO [facility] [id number] Univers 09:01:21 23:59:00 MARY rogerio of [facility] 2019-08-28 2019-08-28 [facility] 1.2.840.114 [id number] Univers 09:01:00 23:59:00 Encounter Mary Wolff [id number] ity of [place] [id number] [phone] [facility] [address] [place] [address] 2019-08-28 2019-08-28 Outpatient R JAVAN [facility] [id number] Univers 08:00:00 08:00:00 MIYA beatty [facility] 2019-08-28 2019-08-28 Telephone BEV [place] 1.2.035.559 [id number] Univers 00:00:00 00:00:00 Mary CLARKE [id number] i ty [facility] [id number] David as [phone] [facility] [address] 2019-06-03 2019-06-03 Office [facility] 1.2.840.114 [id number] Univers 13:49:16 14:41:30 Visit [facility] 350.1.13.10 it y of [place] 4.2.7.2.686 David as Professio [phone] Or dic[address] Office [facility] One 2019-06-03 2019-06-03 Letter [facility] 1.2.840.114 [id number] Univers 00:00:00 00:00:00 (Out) [facility] 350.1.13.10 it y of [place] 4.2.7.2.686 [place] as Professio [phone] [address] Office Building One 2019-06-03 2019-06-03 Telephone [facility] [id number] Univers 00:00:00 00:00:00 [facility] 350.1.13.10 it y of [place] 4.2.7.2.686 [place] as Professio [phone] [address] Office Building One 2018-12-14 2018-12-14 Orders Doctor PABLO 1.2.840.114 [id number] Univers 00:00:00 00:00:00 Only Unassigned, TRICIA 350.1.13.10 ity of [place] [facility] 4.2.7.2.686 David as [phone] [address] 2018-12-04 2018-12-04 Ancillary Sherley Lofton [facility] 1.2.840 .114 [id number] Univers 10:53:20 11:38:20 Visit Rigoberto Diez 350.1.13.10 [place] [phone] Or dical nal [address] [facility] 2018-11-28 2018-11-28 Telephone Kevin Valadez [facility] 1.2.840.114 [id number] Univers 00:00:00 00:00:00 C New 350.1.13.10 [place] [phone] Or dical nal [address] [facility] 2018-11-25 2018-11-[address] [facility] [id number] Univers 12:54:02 16:54:00 Betito Wolff 350.1.13.10 [place] [phone] [facility] [address] 2018-11-25 2018-11-25 Orders Doctor BEV 1.2.840.114 [id number] Univers 00:00:00 00:00:00 Only Unassigned, TRICIA 350.1.13.10 ity of [place] [facility] 4.2.7.2.686 David as [phone] [address] 2018-11-22 2018-11-22 Ancillary Sher[address] Lofton [facility] 1.2.840 .114 [id number] Univers 10:57:21 16:41:21 Visit Rigoberto Diez 350.1.13.10 it[place] [phone] Or dical [facility] [address] [facility] 2018-11-20 2018-11-20 Ancillary Sherley Lofton Lazaro [facility] 1.2.840 .114 [id number] Univers 11:02:45 11:47:45 Visit Rigoberto Diez 350.1.13.10 it[place] [phone] Or dical nal [address] [facility] 2018-11-16 2018-11-16 [facility] 1.2.840.114 [id number] Univers 09:44:34 23:59:00 Encounter Health 350.1.13.10 [place] [phone] [facility] [address] 2018-11-16 2018-11-16 [facility] 1.2.840.114 [id number] [facility] 09:44:18 23:59:00 Encounter Health 350.1.13.10 [place] [phone] [facility] [address] 2018-11-16 2018-11-[address] [facility] 1.2.840.114 [id number] [facility] 09:12:01 10:21:34 Visit Health 350.1.13.10 [place]2.[place] [phone] [facility] [address] 2018-11-15 2018-11-15 Kevin Stein [place] 1.2.840.114 [id number] Univers 00:00:00 00:00:00 Rosemary AppiahMachias 350.1.13.10 i [place].2.[place] [phone] Or dical nal [address] [facility] 2018-11-13 2018-11-13 Ancillary Carmen Mott [facility] 1 .2.840.114 [id number] Univers 10:50:44 11:00:07 Visit Rigoberto Diez 350.1.13.10 ity of [place].2.[place] [phone] Or dical nal 179 [facility] Results Test Description Test Time Test Comments Results Result Comments Source TROPONIN I 2022-12-01 18:18:01 Test Item Value Reference Range Interpretation Comme nts TROPONIN I (test code = 6056071053) 0.005 ng/mL <=0.034 MISAEL (test code = [...] biotin. Lab Interpretation (test code = Normal 61042-2) [facility]. METABOLIC PANEL (78028)2022-12-01 18:08:16 Test Item Value Reference Range Interpretation Comments NA (test code = 139 mmol/L 135-145 2092040087) K (test code = 4.0 mmol/L 3.5-5.0 6557036482) CL (test code = 106 mmol/L 98-108 2630642624) CO2 TOTAL (test code = 26 mmol/L 23-31 9562812041) AGAP (test code = 7 2-16 1037026640) BUN (test code = 13 mg/dL 7-23 2520163939) GLUCOSE (test code = 98 mg/dL 70-110 0396034481) CREATININE (test code = 0.59 mg/dL 0.50-1.04 0861372825) TOTAL BILI (test code = 0.4 mg/dL 0.1-1.6 3183369878) CALCIUM (test code = 7.8 mg/dL 8.6-10.6 L 6615675275) T PROTEIN (test code = 6.3 g/dL 6.3-8.2 9217889544) ALBUMIN (test code = 3.6 g/dL 3.5-5.0 0413059966) ALK PHOS (test code = 36 U/L 34-122 9891614663) ALTv (test code = 18 U/L 5-35 1742-6) AST(SGOT) (test code = 20 U/L 13-40 3778267440) eGFR (test code = 111.2 mL/min/1.73m2 2338663332) MISAEL (test code = MISAEL) Association of [...] tests). Lab Interpretation Abnormal (test code = 73047-1) [facility]08[facility]01 Test Item Value Reference Range Interpretation Comments LIPASE (test code = 5026356380) 50 U/L 0-220 Lab Interpretation (test code = Normal 78155-2) [facility] [id number] 17:55:37 Test Item Value Reference Range Interpretation Comments WBC (test code = 5.65 See_Comment [Automated 7990-2) message] The sy stem which generated this result transmitted reference range : 4.30 - 11.10 10*3/?L. The reference range was not used to interpret this result as normal/abnormal . RBC (test code = 3.92 See_Comment L [Automated 789-8) message] The sy stem which generated this [...] RDW-SD (test code = 45.7 fL 39.0-49.9 79769-9) RDW-CV (test code = 13.6 % 12.0-15.5 788-0) PLT (test code = 295 See_Comment [Automated 777-3) message] The sy stem which generated this result transmitted reference range : 166 - 358 10*3/ ?L. The reference r brittney was not used to interpret this result as normal/abnormal . MPV (test code = 9.8 fL 9.5-12.9 61219-8) NRBC/100 WBC (test 0.0 See_Comment [Automat ed code = 6623747780) message] The system which generated this result transmitted reference range : 0.0 - 10.0 /100 WBCs. The refer ence range was not u sed to interpret th is result as normal/abnormal . NRBC x10^3 (test code See_Comment [Auto mated = 0393297112) message] The s ystem which generated this result transmitted reference range : 10*3/?L. The reference range was not used to interpret this result as normal/abnormal . GRAN MAT (NEUT) % 66.5 % (test code = 770-8) IMM GRAN % (test code 0.20 % = 5167038075) LYMPH % (test code = 24.6 % 736-9) MONO % (test code = 5.3 % 5905-5) EOS % (test code = 2.7 % 713-8) BASO % (test code = 0.7 % 706-2) GRAN MAT x10^3(ANC) 3.76 10*3/uL 1.88-7.09 (test code = 9616257167) IMM GRAN x10^3 (test 0.00-0.06 code = 3465855439) LYMPH x10^3 (test code 1.39 10*3/uL 1.32-3.29 = 731-0) MONO x10^3 (test code 0.30 10*3/uL 0.33-0.92 L = 742-7) EOS x10^3 (test code = 0.15 10*3/uL 0.03-0.39 711-2) BASO x10^3 (test code 0.04 10*3/uL 0.01-0.07 = 704-7) Lab Interpretation Abnormal (test code = 57246-2) [facility] [id number] 20:08:39 Test Item Value Reference Range Interpretation Comments TROPONIN I (test code = 0.001 ng/mL <=0.034 7005555981) MISAEL (test code = MISAEL) Reference (Normal) [...] biotin. Lab Interpretation Normal (test code = 90331-1) [facility] [id number] 20:05:00 Test Item Value Reference Range Interpretation Comments NT-proBNP (test code = 76 pg/mL <=125 5025832947) MISAEL (test code = MISAEL) Biotin has been reported to cause a negative bias, interpret results relative to patient's use of biotin. Lab Interpretation (test Normal code = 20285-3) [facility] METABOLIC PANEL (10638)2022-09-28 19:54:36 Test Item Value Reference Range Interpretation Comments NA (test code = 138 mmol/L 135-145 6943560108) K (test code = 3.8 mmol/L 3.5-5.0 0880150801) CL (test code = 103 mmol/L 98-108 5970775975) CO2 TOTAL (test code 24 mmol/L 23-31 = 7810859051) AGAP (test code = 11 2-16 0232871441) BUN (test code = 14 mg/dL 7-23 0997673915) GLUCOSE (test code = 98 mg/dL 70-110 9014849305) CREATININE (test code 0.66 mg/dL 0.50-1.04 = 5308392556) TOTAL BILI (test code 0.5 mg/dL 0.1-1.1 = 8285824576) CALCIUM (test code = 9.6 mg/dL 8.6-10.6 8760768354) T PROTEIN (test code 7.4 g/dL 6.3-8.2 = 7875013584) ALBUMIN (test code = 4.5 g/dL 3.5-5.0 3156550495) ALK PHOS (test code = 60 U/L 34-122 3468778932) ALTv (test code = 17 U/L 5-35 2-6) AST(SGOT) (test code 19 U/L 13-40 = 0685581820) eGFR (test code = 97.7 mL/min/1.73m2 3468059410) MISAEL (test code = MISAEL) Association of [...] or urine or abnormalities in imaging tests). [facility] [id number] 19:44:00 Test Item Value Reference Range Interpretation Comments POCT PREG (test code = 1605) Negative On board controls acceptable with Yes C Line (test code = 3574) POCT PREG LOT # (test code = 3575) [id number] POCT PREG TEST DATE (test 01-21-2024 code = 3576) Lab Interpretation (test code = Normal 38683-7) [facility] THRMPLAS [id number] 19:40:13 Test Item Value Reference Range Interpretation Comments APTT Patient (test 30 See_Comment [Automat ed code = 3173-2) message] The system which generated this result transmitted reference range : 23 - 38 Seconds . The reference range was not used to interpr et this result as normal/abnormal . MISAEL (test code = MISAEL) The [facility] patient population mean normal value for aPTT is 30 seconds. Lab Interpretation Normal (test code = 34630-6) [facility] HospitalPROT[facility] / [id number] 19:38:12 Test Item Value Reference Range Interpretation [...] tions. Lab Interpretation (test Normal code = 75622-5) [facility] WITH [id number] 19:26:08 Test Item Value Reference Range Interpretation Comments WBC (test code = 6.65 See_Comment [Automated 6690-2) message] The sy stem which generated this result transmitted reference range : 4.30 - 11.10 10*3/?L. The reference range was not used to interpret this result as normal/abnormal . RBC (test code = 4.43 See_Comment [Automated 789-8) message] The sy stem which generated this [...] RDW-SD (test code = 40.5 fL 39.0-49.9 92855-9) RDW-CV (test code = 12.7 % 12.0-15.5 788-0) PLT (test code = 347 See_Comment [Automated 777-3) message] The sy stem which generated this result transmitted reference range : 166 - 358 10*3/ ?L. The reference r brittney was not used to interpret this result as normal/abnormal . MPV (test code = 9.6 fL 9.5-12.9 07279-7) NRBC/100 WBC (test 0.0 See_Comment [Automat ed code = 9629314776) message] The system which generated this result transmitted reference range : 0.0 - 10.0 /100 WBCs. The refer ence range was not u sed to interpret th is result as normal/abnormal . NRBC x10^3 (test code See_Comment [Auto mated = 4319793710) message] The s ystem which generated this result transmitted reference range : 10*3/?L. The reference range was not used to interpret this result as normal/abnormal . GRAN MAT (NEUT) % 74.1 % (test code = 770-8) IMM GRAN % (test code 0.80 % = 0076583059) LYMPH % (test code = 18.8 % 736-9) MONO % (test code = 5.1 % 5905-5) EOS % (test code = 0.6 % 713-8) BASO % (test code = 0.6 % 706-2) GRAN MAT x10^3(ANC) 4.93 10*3/uL 1.88-7.09 (test code = 1274859629) IMM GRAN x10^3 (test 0.05 10*3/uL 0.00-0.06 code = 9648244361) LYMPH x10^3 (test code 1.25 10*3/uL 1.32-3.29 L = 731-0) MONO x10^3 (test code 0.34 10*3/uL 0.33-0.92 = 742-7) EOS x10^3 (test code = 0.04 10*3/uL 0.03-0.39 711-2) BASO x10^3 (test code 0.04 10*3/uL 0.01-0.07 = 704-7) Lab Interpretation Abnormal (test code = 45293-0) [facility]. METABOLIC PANEL (74589)2022-02-03 14:01:08 Test Item Value Reference Range Interpretation Comments NA (test code = 140 mmol/L 135-145 0833741667) K (test code = 4.0 mmol/L 3.5-5 5865979653) CL (test code = 104 mmol/L 98-108 5912271135) CO2 TOTAL (test code = 22 mmol/L 23-31 L 6060156970) AGAP (test code = 2-16 7696139003) BUN (test code = 17 mg/dL 7-23 9435376940) GLUCOSE (test code = 118 mg/dL 70-110 H 3399177837) CREATININE (test code = 0.58 mg/dL 0.5-1.04 5258109016) TOTAL BILI (test code = 0.3 mg/dL 0.1-1.6 6358290545) CALCIUM (test code = 9.5 mg/dL 8.6-10.6 0091928413) T PROTEIN (test code = 7.2 g/dL 6.3-8.2 0868086831) ALBUMIN (test code = 4.5 g/dL 3.5-5 6549877200) ALK PHOS (test code = 54 U/L 34-122 5025980915) ALTv (test code = 28 U/L 5-35 1742-6) AST(SGOT) (test code = 21 U/L 13-40 4894531302) eGFR (test code = mL/min/1.73m2 5187263666) MISAEL (test code = MISAEL) Association of [...] tests). Lab Interpretation Abnormal (test code = 83745-7) [facility] WITH [id number] 13:50:24 Test Item Value Reference Range Interpretation Comments WBC (test code = See_Comment [Automated 6690-2) message] The sy stem which generated this result transmitted reference range : 4.30 - 11.10 10*3/?L. The reference range was not used to interpret this result as normal/abnormal . RBC (test code = See_Comment [Automated 789-8) message] The sy stem which generated this [...] RDW-SD (test code = 42.5 fL 39-49.9 01336-6) RDW-CV (test code = 13.2 % 12-15.5 788-0) PLT (test code = See_Comment H [Automated 777-3) message] The sy stem which generated this result transmitted reference range : 166 - 358 10*3/ ?L. The reference r brittney was not used to interpret this result as normal/abnormal . MPV (test code = 9.2 fL 9.5-12.9 L 91130-4) NRBC/100 WBC (test See_Comment [Automat ed code = 9512574478) message] The system which generated this result transmitted reference range : 0.0 - 10.0 /100 WBCs. The refer ence range was not u sed to interpret th is result as normal/abnormal . NRBC x10^3 (test code See_Comment [Auto mated = 7315321489) message] The s ystem which generated this result transmitted reference range : 10*3/?L. The reference range was not used to interpret this result as normal/abnormal . GRAN MAT (NEUT) % 77.7 % (test code = 770-8) IMM GRAN % (test code 0.30 % = 7800411056) LYMPH % (test code = 15.5 % 736-9) MONO % (test code = 5.0 % 5905-5) EOS % (test code = 1.1 % 713-8) BASO % (test code = 0.4 % 706-2) GRAN MAT x10^3(ANC) 5.48 10*3/uL 1.88-7.09 (test code = 4673341328) IMM GRAN x10^3 (test 0-0.06 code = 5003195851) LYMPH x10^3 (test code 1.09 10*3/uL 1.32-3.29 L = 731-0) MONO x10^3 (test code 0.35 10*3/uL 0.33-0.92 = 742-7) EOS x10^3 (test code = 0.08 10*3/uL 0.03-0.39 711-2) BASO x10^3 (test code 0.03 10*3/uL 0.01-0.07 = 704-7) Lab Interpretation Abnormal (test code = 18032-0) [facility]"
[2023-01-06 10:15] LABS: Absolute Lymphocytes (CBC) 2.1 K/uL (0.7-4.9); Hematocrit 39.4 % (36.0-45.0); Lymphocytes % 25.8 % (15.3-44.8); MCV 89.5 fL (80-100); MPV 7.5 fL (7.6-11.3); Platelets 337 thou/uL (152-406)
[2023-01-06] MEDS ORDERED: MORPHINE 4 MG/ML SYR ONE (10:18)
[2023-01-06] MEDS ORDERED: NA CHLORIDE 0.9% 1,000 ML ONE (10:18)
[2023-01-06] MEDS ORDERED: ONDANSETRON 4 MG/2 ML VIAL ONE (10:18)
[2023-01-06 10:31] LABS: Albumin 3.7 g/dL (3.4-5.0); Bilirubin Total 0.2 mg/dL (0.2-1.0); Potassium 3.8 mEq/L (3.5-5.1); Protein, Total 7.5 g/dL (6.4-8.2)
--- NOTE | 2023-01-06 10:39 | RAD REPORT ---
EXAM DESCRIPTION: CTAbdomen Pelvis W Contrast - 01/06/2023 10:30 am CLINICAL HISTORY: ABD PAIN COMPARISON: Abdomen Pelvis W Contrast dated 12/02/2022; Abdomen Pelvis W Contrast dated 08/30/2022 ; Stone Protocol dated 01/08/2018 TECHNIQUE: CT of the abdomen and pelvis was performed. All CT scans are performed using dose optimization technique as appropriate and may include automated exposure control or mA/KV adjustment according to patient size. FINDINGS: Lower chest: No acute abnormality. Liver: No acute abnormality or suspicious lesions. Biliary: No biliary ductal dilatation. Stomach: No significant focal abnormality. Duodenum: No significant focal abnormality. Pancreas: No significant abnormality. Spleen: No significant abnormality. Adrenal: No suspicious lesions. Kidney/ureter: No hydronephrosis. No renal calculi. Retroperitoneum: No retroperitoneal adenopathy. Vascular: No aneurysm. Bowel: Nonspecific fluid present within the small bowel. Normal appendix. No bowel obstruction.. Peritoneum: No ascites or free air. Bladder: Grossly unremarkable. Reproductive: No adnexal masses. IUD. The previously noted left adnexal lesion has resolved consisten t with the presence of a physiologic cyst. Bones: No acute fracture. Interbody spacer at L5-S1. Other: n/a IMPRESSION: Fluid filled small bowel in the pelvis could indicate the presence of a gastroenteritis. No bowel obstruction. Normal appendix. Previously noted left adnexal cyst has resolved.
[2023-01-06] MEDS ORDERED: HYDROMORPHONE HCL 1 MG/ML INJ ONE (10:40)
--- NOTE | 2023-01-06 10:49 | RAD REPORT ---
EXAM DESCRIPTION: US - Abdomen Exam Limited - 01/06/2023 10:43 am CLINICAL HISTORY: ABD PAIN COMPARISON: Abdomen Pelvis W Contrast dated 01/06/2023 FINDINGS: The gallbladder demonstrates no gallstones. No pericholecystic fluid or gallbladder wall t hickening. The common bile duct is normal measuring 3 mm. The liver demonstrates no findings of intrahepatic biliary dilatation. IMPRESSION: Unremarkable examination.
[2023-01-06] MEDS ORDERED: HALOPERIDOL LACT 5 MG/ML INJ ONE (11:05)
--- NOTE | 2023-01-06 11:28 | EDPHYS ---
Physician Documentation [facility] Name: Octavia Lo Age: 42 yrs Sex: Female : 1980 Arrival Date: 01/06/2023 Time: 09:59 Bed 5 Private MD: ED Physician Zeyad Rivera HPI: 01/06 10:08 This 42 yrs old Female presents to ER via EMS with complaints of abdominal pain. rn 10:08 The patient presents with abdominal pain in the epigastric area. Onset: The rn symptoms/episode began/occurred this morning. The symptoms do not radiate. Associated signs and symptoms: Pertinent positives: constipation, nausea, Pertinent negatives: blood in stools, fever, shortness of breath. The symptoms are described as achy. Modifying factors: The symptoms are alleviated by nothing, the symptoms are aggravated by pressure. Severity of pain: At its worst the pain was moderate in the emergency department the pain is unchanged. The patient has experienced similar episodes in the past. The patient has not recently seen a physician. Patient reports epigastric abdominal pain associated with nausea and constipation. [place] fine last night. Began this morning. Feels identical to previous pancreatitis episodes.. 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 - Social history:: Smoking status: Patient denies any tobacco usage or history of. - Family history:: not pertinent. - Hospitalizations: : No recent hospitalization is reported. ROS: 10:10 Constitutional: Negative for fever, chills, and weight loss, Cardiovascular: Negative rn for chest pain, palpitations, and edema, Respiratory: Negative for shortness of breath, cough, wheezing, and pleuritic chest pain, Abdomen/GI: Positive for abdominal pain and nausea Back: Negative for injury and pain, MS/Extremity: Negative for injury and deformity, Skin: Negative for injury, rash, and discoloration, Neuro: Negative for headache, weakness, numbness, tingling, and seizure, Exam: 10:10 Constitutional: This is a well developed, well nourished patient who is awake, alert, rn appears in moderate pain ENT: Dry mucous membranes Cardiovascular: Regular rate and rhythm with a normal S1 and S2. No gallops, murmurs, or rubs. Normal PMI, no JVD. No pulse deficits. Respiratory: Lungs have equal breath sounds bilaterally, clear to auscultation and percussion. No rales, rhonchi or wheezes noted. No increased work of breathing, no retractions or nasal flaring. Abdomen/GI: Soft, tender epigastrium, no rebound Skin: Warm, dry MS/ Extremity: Pulses equal, no cyanosis. Neuro: Awake and alert, GCS 15 Vital Signs: 10:00 BP 165 / 118; Pulse 78; Resp 18; Temp 97.1; Pulse Ox 100% on R/A; Weight 79.38 kg; mb9 Height 5 ft. 5 in. ; Pain 10/10; 10:30 BP 172 / 111; Pulse 61; Resp 15; Pulse Ox 100% ; Pain 10/10; jl7 11:47 BP 142 / 89; Pulse 71; Resp 16; Pulse Ox 99% on R/A; mb9 10:00 Body Mass Index 29.12 (79.38 kg, 165.1 cm) mb9 10:00 Pain Scale: Adult mb9 10:30 Pain Scale: Adult jl7 MDM: 10:00 Patient medically screened. rn 11:25 Differential diagnosis: bowel obstruction, cholecystitis, Cholelithiasis, rn diverticulitis, gastritis, gastroesophageal reflux disease, non-specific abd pain, pancreatitis, Peptic Ulcer Disease, Perf. Duodenal Ulcer, Perf. Gastric Ulcer. Data reviewed: vital signs, nurses notes, lab test result(s), radiologic studies, CT scan, ultrasound, and as a result, I will discharge patient. Counseling: I had a detailed discussion with the patient and/or guardian regarding the historical points, exam findings, and any diagnostic results supporting the discharge/admit diagnosis, lab results, radiology results, the need for outpatient follow up, to return to the emergency department if symptoms worsen or persist or if there are any questions or concerns that arise at home. Response to treatment: the patient's symptoms have markedly improved after treatment, Patient markedly improved, no acute findings other than mild small bowel fluid feeling. Possible gastroenteritis. Patient states currently 0 out of 10 pain. Will DC home with pain medication and as needed nausea medicine along with GI follow-up as has not had a scope in a while.. Special discussion: Based on the patient's Hx, exam, and Dx evaluation, there is no indication for emergent surgery or inpatient Tx. It is understood by the patient/guardian that if the Sx's persist or worsen they need to return immediately for re-evaluation. I discussed with the patient/guardian in detail that at this point there is no indication for admission to the hospital. It is understood, however, that if the symptoms persist or worsen the patient needs to return immediately for re-evaluation. 01/06 10:01 Order name: CBC with Diff; Complete Time: 10:17 rn 01/06 10:01 Order name: CMP; Complete Time: 10:36 rn 01/06 10:01 Order name: Lipase; Complete Time: 10:36 rn 01/06 10:01 Order name: CT Abd/Pelvis - IV Contrast Only; Complete Time: 10:45 rn 01/06 10:01 Order name: US Abdomen Limited; Complete Time: 10:52 rn 01/06 10:01 Order name: IV Saline Lock; Complete Time: 10:13 rn 01/06 10:01 Order name: Labs collected and sent; Complete Time: 10:13 rn Administered Medications: 10:07 Drug: Ondansetron IVP 4 mg IVP once; over 2 minutes Route: IVP; Site: left antecubital; mb9 10:26 Follow up: Response: No adverse reaction mb9 10:08 Drug: NS 0.9% IV 1000 ml IV at 1000 ml once Route: IV; Rate: 1000 ml; Site: left mb9 antecubital; 10:10 Drug: morphine IVP or IV 4 mg IVP once over 4 mins Route: IVP; Infused Over: 4 mins; mb9 Site: left antecubital; 10:26 Follow up: Response: Pain is unchanged, physician notified mb9 10:49 Drug: HYDROmorphone IVP 1 mg IVP once Route: IVP; Site: left antecubital; jl7 11:03 Drug: Haloperidol IVP 5 mg IVP once Route: IVP; Site: left antecubital; jl7 Disposition Summary: 01/06/23 11:27 Discharge Ordered Notes: Location: Home rn Problem: new rn Symptoms: have improved rn Condition: Stable rn Diagnosis - Upper abdominal pain, unspecified rn Followup: rn - With: Kenneth Jennings MD - When: As needed - Reason: Recheck today's complaints, Re-evaluation by your physician Discharge Instructions: - Discharge Summary Sheet rn - Abdominal Pain, Adult rn Forms: - Medication Reconciliation Form rn - Thank You Letter rn - Antibiotic internal consultant - Prescription Opioid Use rn - Patient Portal Instructions rn - Leadership Thank You Letter rn Prescriptions: - ondansetron 4 mg Oral Tablet,disintegrating - take 1 tablet ORAL route every 8 hours As needed; 12 tablet; Refills: 0, rn Product Selection Permitted - Tramadol 50 mg Oral Tablet - take 1 tablet ORAL route every 8 hours as needed; 12 tablet; Refills: 0, rn Product Selection Permitted Signatures: Dispatcher [employer] EDZeyad Rodriguez MD MD rn Leal, Jahala, RN RN jl7 Shannon Walker RN RN mb9
--- NOTE | 2023-01-06 11:28 | ER ---
Nurse's Notes [facility] Name: Octavia Lo Age: 42 yrs Sex: Female : 1980 Arrival Date: 01/06/2023 Time: 09:59 Bed 5 Private MD: Diagnosis: Upper abdominal pain, unspecified Presentation: 01/06 10:00 Chief complaint: EMS states: "toned out for severe abdominal pain and N that started 30 mb9 minutes prior to arriving to ER. Pt cold, clammy, and passed out after hyperventilating.". Coronavirus screen: Vaccine status: Patient reports receiving the 2nd dose of the covid vaccine. Ebola Screen: No symptoms or risks identified at this time. Initial Sepsis Screen: Does the patient meet any 2 criteria? No. Patient's initial sepsis screen is negative. Does the patient have a suspected source of infection? No. Patient's initial sepsis screen is negative. Risk Assessment: Do you want to hurt yourself or someone else? Patient reports no desire to harm self or others. Onset of symptoms was January 06, 2023. 10:00 Method Of Arrival: EMS: [facility] mb9 10:00 Acuity: ONUR 2 mb9 Triage Assessment: 10:03 General: Appears uncomfortable, Behavior is cooperative, anxious. Pain: Complains of mb9 pain in abdomen Pain currently is 10 out of 10 on a pain scale. Quality of pain is described as pressure, Pain began suddenly, Is continuous, Noted to be grimacing, guarding, moaning. EENT: No signs and/or symptoms were reported regarding the EENT system. Neuro: Ortiz Agitation-Sedation Scale (RASS): 0 - Alert and Calm Level of Consciousness is awake, alert, obeys commands, Oriented to person, place, time, situation, Appropriate for age. Cardiovascular:. Respiratory: Airway is patent Respiratory effort is even, unlabored, Respiratory pattern is regular, symmetrical, Breath sounds are clear bilaterally. GI: Abdomen is round non-distended, Abd is soft Abdomen is tender to palpation in epigastric area Reports upper abdominal pain, nausea. : No signs and/or symptoms were reported regarding the genitourinary system. Derm: Skin is intact, Skin is clammy, Skin is pale, Skin temperature is cool. Musculoskeletal: Range of motion: intact in all extremities. 10:03 Cardiovascular: Heart tones S1 S2 present. GI: Bowel sounds present X 4 quads. 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 - Social history:: Smoking status: Patient denies any tobacco usage or history of. - Family history:: not pertinent. - Hospitalizations: : No recent hospitalization is reported. Screenin:12 [facility] ED Fall Risk Assessment (Adult) History of falling in the last 3 months, mb9 including since admission No falls in past 3 months (0 pts) Confusion or Disorientation No (0 pts) Intoxicated or Sedated No (0 pts) Impaired Gait No (0 pts) Mobility Assist Device Used No (0 pt) Altered Elimination No (0 pt) Score/Fall Risk Level 0 - 2 = Low Risk Oriented to surroundings, Maintained a safe environment, Educated pt \\T\\ family on fall prevention, incl call for assistance when getting out of bed. Abuse screen: Denies threats or abuse. Nutritional screening: No deficits noted. Tuberculosis screening: No symptoms or risk factors identified. Assessment: 10:11 Reassessment: see triage assessment. mb9 10:25 Reassessment: pt taken to CT via stretcher. mb9 10:25 Reassessment: Pt reports no improvement in pain, ERD notified, see MAR for orders. jl7 10:47 Reassessment: Pt return from CT, writhing in pain, medicated as ordered. jl7 10:49 Reassessment: Dr. Rivera at bedside discussing results and POC. jl7 11:00 Reassessment: Patient and/or family updated on plan of care and expected duration. Pain mb9 level reassessed. Patient is alert, oriented x 3, equal unlabored respirations, skin warm/dry/pink. Patient states feeling better. Patient states symptoms have improved. 11:47 Reassessment: No changes from previously documented assessment. Patient and/or family mb9 updated on plan of care and expected duration. Pain level reassessed. Patient is alert, oriented x 3, equal unlabored respirations, skin warm/dry/pink. Vital Signs: 10:00 BP 165 / 118; Pulse 78; Resp 18; Temp 97.1; Pulse Ox 100% on R/A; Weight 79.38 kg; mb9 Height 5 ft. 5 in. ; Pain 10/10; 10:30 BP 172 / 111; Pulse 61; Resp 15; Pulse Ox 100% ; Pain 10/10; jl7 11:47 BP 142 / 89; Pulse 71; Resp 16; Pulse Ox 99% on R/A; mb9 10:00 Body Mass Index 29.12 (79.38 kg, 165.1 cm) mb9 10:00 Pain Scale: Adult mb9 10:30 Pain Scale: Adult jl7 ED Course: 10:00 Patient arrived in ED. rn 10:00 Zeyad Rivera MD is Attending Physician. rn 10:00 Shannon Walker, RN is Primary Nurse. mb9 10:00 Arm band placed on. mb9 10:03 Triage completed. mb9 10:05 Placed in gown. Bed in low position. Call light in reach. Side rails up X 1. Client mb9 placed on continuous cardiac and pulse oximetry monitoring. NIBP monitoring applied. gambling monitor on. 10:05 Inserted saline lock: 20 gauge in left antecubital area, using aseptic technique. Blood mb9 collected. 10:13 CBC with Diff Sent. mb9 10:13 CMP Sent. mb9 10:13 Lipase Sent. mb9 10:16 No provider procedures requiring assistance completed. mb9 10:17 Initial lab(s) drawn, by me, sent to lab. jl7 10:26 CMP Sent. mb9 10:26 Lipase Sent. mb9 10:31 CT Abd/Pelvis - IV Contrast Only In Process Unspecified. EDMS 10:44 US Abdomen Limited In Process Unspecified. EDMS 11:26 Kenneth Jennings MD is Referral Physician. rn 11:48 IV discontinued, intact, bleeding controlled, No redness/swelling at site. Pressure mb9 dressing applied. Administered Medications: 10:07 Drug: Ondansetron IVP 4 mg IVP once; over 2 minutes Route: IVP; Site: left antecubital; mb9 10:26 Follow up: Response: No adverse reaction mb9 10:08 Drug: NS 0.9% IV 1000 ml IV at 1000 ml once Route: IV; Rate: 1000 ml; Site: left mb9 antecubital; 10:10 Drug: morphine IVP or IV 4 mg IVP once over 4 mins Route: IVP; Infused Over: 4 mins; mb9 Site: left antecubital; 10:26 Follow up: Response: Pain is unchanged, physician notified mb9 10:49 Drug: HYDROmorphone IVP 1 mg IVP once Route: IVP; Site: left antecubital; jl7 11:03 Drug: Haloperidol IVP 5 mg IVP once Route: IVP; Site: left antecubital; jl7 Medication: 10:12 VIS not applicable for this client. mb9 Outcome: 11:27 Discharge ordered by MD. rn 11:47 Discharged to home with family, mb9 11:47 Condition: stable 11:47 Discharge instructions given to patient, family, Instructed on discharge instructions, follow up and referral plans. Demonstrated understanding of instructions, follow-up care, medications, Prescriptions given X 2, 11:50 Patient left the ED. mb9 Signatures: Dispatcher [employer] EDNJ Zeyad Rivera MD MD rn Leal, Jahala, RN RN jl7 Shannon Walker RN RN mb9 Corrections: (The following items were deleted from the chart) 10:11 10:03 Respiratory: Airway is patent Respiratory effort is even, unlabored, Respiratory mb9 pattern is regular, symmetrical, mb9 11:03 10:49 HYDROmorphone IVP 1 mg IVP in right antecubital jl7 jl7
[2023-01-06 12:14] VITALS: TEMP 97.1
[2023-01-06 12:16] VITALS: BP 142/89; O2SAT 99
== END 2023-01-06 11:50 | disposition home or self-care (01) ==
LOC: ER 09:59
DX: R10.13 Epigastric pain (principal); R11.0 Nausea; Z87.442 Personal history of urinary calculi; Z88.5 Allergy status to narcotic agent; Z88.8 Allergy status to other drugs, medicaments and biological substances
CPT/HCPCS: 85025; 36415; 83690; 80053; 74177; 76705; 96375; 96374; 99285; Q9967; J1630; J1170; J2405; J7030

== ENCOUNTER 2024-04-20 14:49 | Emergency (ER) | payer OTHER ==
--- OUTSIDE RECORDS SUMMARY | 2024-04-20 14:57 | XMS REPORT | Continuity of Care Document ---
Author Name Unknown Address [address] [place] [address] [facility] thconnect Address [address] [place] [address] Care Team Providers Care Nurse Aide Evaluator Name Role Phone MIYA EDOUARD Primary Care Physician UnavailABBEY Roque Attending Clinician Unavailable MIYA EDOUARD Attending Clinician Unavailable SARAH BETH YOUNG Attending Clinician UnavailMiya Lawrence MD Attending Clinician [phone] CHERELLE GARBER Attending Clinician Unavailable MARTHA MERAZ Attending Clinician MARTHA Hollins Attending Clinician MALIK Rosen Attending Clinician UnavailMALIK Jiang Attending Clinician UnavailMarybeth Pedraza Attending Clinician [phone] Carina Taylor RPH Attending Clinician Unavailable LOKI HAYES Attending Clinician Unavailable MARYBETH JIMÉNEZ Attending Clinician Unavailable MARYBETH JIMÉNEZ Attending Clinician Unavailable Jeni Serna CPhT Attending Clinician Unaabebe Meraz MD, Martha Attending Clinician + [phone] Freddy HOPPER, Loki Attending Clinician [phone] Betty HOPPER, Clare Attending Clinician [phone] Eren HOPPER, Jennie Valle Attending Clinician [phone] Only, [facility] Test Attending Clinician Unavailable JENNIE LOVING Attending Clinician Unavailab zonia Priest MD, Lui Blanc Attending Clinicia n Sue Childs MD Attending Clinician [phone] Olamide Simpson PA-C Attending Clinician [phone] Doctor Unassigned, [place] Attending Clinician U sheron 2, [facility] Attending Clinician Unavailable Pcp-Lab Attending Clinician Unavailable OLAMIDE SIMPSON Attending Clinician Unavailable OLAMIDE SIMPSON Attending Clinician Unavailable Miya Edouard MD Attending Clinician [phone] RAFFI RODRIGUEZ Attending Clinician Unavailab Eva Bañuelos MD Attending Clinician [phone] GELA BENEDICT Attending Clinician Unavailable PATRIZIA HI Attending Clinician Unavailable Octavia Moy Attending Clinician +[phone] Doctor Unassigned, [place] Attending Clinician U Gela Quintana MD Attending Clinician [phone] Pob, [facility] Main Attending Clinician Unavailabl e 2, [facility] Attending Clinician Unavailable EVA ABREU Attending Clinician Unavailable SHEREE BLOOD Attending Clinician Unavaila JEY Weaver Attending Clinician Unavailable Jey Machado S Attending Clinician [phone] SARMAD PITT Attending Clinician Unavail able SARMAD PITT Attending Clinician Unavail able Sarmad Pitt MD Attending Clinician [phone] Neurology Attending Clinician Unavailable JULIANE JOLLY Attending Clinician Unavailab Juliane Moeller MD Attending Clinician [phone] RADIOLOGY Attending Clinician Unavailable Radiology Attending Clinician Unavailable CAROLINA MAURICE Attending Clinician Unavailab Carolina Mario DO Attending Clinician [phone] Thom MANRIQUE, Nathaly Attending Clinician [phone] Only, [facility] Test Attending Clinician Unavailabl e Ebrahiozzy REFINISHER, Bjia Attending Clinician +[phone] EBRAHIM, RANKIA Attending Clinician Unavailable NATHALY RICHTER Attending Clinician Unavailable ADUM, NIKA L Attending Clinician Unavailable Jamal HOPPER, Nika L Attending Clinician [phone] Mono Perea MD Attending Clinician + [phone] Only, [facility] Attending Clinician Unavailable Abbey Rothman MD Attending Clinician [phone], [facility] Attending Clinician Unavailable Gramm Diann BAXTER Attending Clinician [phone] Yasir Ghosh MD Attending Clinician [phone] RUSSELL LAWLER Attending Clinician Unavail able Nurse, [facility] Immunization Attending Clinician Unavailable Russell Lawler DO Attending Clinician [phone] Vaccine, [facility] Family Attending Clinician Unavaila ble Green REFINISHER, Fern Attending Clinician [phone] FERN FRANK Attending Clinician Unavailable Provider, [facility] Attending Clinician Un available Mary Rodrigues Attending Clinician + [phone] MARY HARLEY Attending Clinician Unavailable FESTUS MANUEL Attending Clinician Unavailable Karen Copeland Attending Clinician [phone] Ramirez Fink MD Attending Clinician [phone] GEORGE GIL Attending Clinician Unavailable Lab, [facility] Fam Pob I Attending Clinician Unavailab zonia Gil REFINISHER, George Attending Clinician [phone] Rolyl DAY SPA MANAGER, Sherley K Attending Clinician Unavail able Malik White MD Attending Clinician [phone] Kevin Valadez MD Attending Clinician [phone] Betito Weinberg Attending Clinician [phone] Freddy HOPPER, Loki Attending Clinician [phone] Eren Espinoza PT, Carmen Attending Clinician Un available ABBEY ROTHMAN Admitting Clinician Unavailable MIYA EDOUARD Admitting Clinician Unavailable JEY PEREZ Admitting Clinician Unavailable JULIANE JOLLY Admitting Clinician Unavailab NIKA Leonard Admitting Clinician Unavailable Nika Berry MD Admitting Clinician Abbey Rothman MD Admitting Clinician MARY HARLEY Admitting Clinician Unavailable Payers Payer Name Policy Type Policy Number Effective Date Expirati on Date Source [employer] [place] [employer] [id number] 2017 00:00:00 [facility] [id number] 2024 00:00:00 [place] [id number] 2023 00:00:00 2024 00:00:00 Problems Condition Name Condition Details Condition Category Status Onset Date Resolution Date Last Treatment Date Treating Clinician Comments Source Lymphadeno mann, cervical Lymphadeno mann, cervical Disease Active 2023-04- 00:00: 00 [facility] Tenderness of lymph node Tenderness of lymph node Disease Active 2023-04 00:00: 00 [facility] Agoraphobi a Agoraphobi a Disease Active 2023-04 00:00: 00 [facility] Stress incontinen ce of urine Stress incontinen ce of urine Disease Active 01-04 00:00: 00 [facility] Bulging lumbar disc Bulging lumbar disc Disease Active 01-04 00:00: 00 [facility] Foraminal stenosis of lumbar region Foraminal stenosis of lumbar region Disease Active 01-04 00:00: 00 [facility] 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 Disease Active 01-04 00:00: 00 [facility] Postural orthostati c tachycardi a syndrome (POTS) Postural orthostati c tachycardi a syndrome (POTS) Disease Active 01-04 00:00: 00 [facility] Subclinica l hypothyroi dism Subclinica l hypothyroi dism Disease Active 01-04 00:00: 00 [facility] Loss of hair Loss of hair Disease Active 0 -20 00:00: 00 [facility] Primary insomnia Primary insomnia Disease Active 0 -20 00:00: 00 [facility] Syncope and collapse Syncope and collapse Disease Active 0 620 00:00: 00 [facility] Knee buckling, left Knee buckling, left Disease Active 0 6 00:00: 00 [facility] Moderate major depression Moderate major depression Disease Active 0 620 00:00: 00 [facility] Lumbar radiculopa thy, chronic Lumbar radiculopa thy, chronic Disease Active 0 2-17 00:00: 00 [facility] Primary osteoarthr itis of right knee Primary osteoarthr itis of right knee Disease Active 0 2-17 00:00: 00 [facility] Bakers cyst, right Bakers cyst, right Disease Active 2021-04 0-13 00:00: 00 [facility] Bakers cyst, right Bakers cyst, right Disease Active 2021-04 0-13 00:00: 00 [facility] Chronic neck pain Chronic neck pain Disease Active 0 12-23 00:00: 00 [facility] Prediabete s Prediabete s Disease Active 0 12-23 00:00: 00 [facility] Hidradenit is suppurativ a Hidradenit is suppurativ a Disease Active 0 8-24 00:00: 00 [facility] Numbness and tingling of right arm and leg Numbness and tingling of right arm and leg Disease Active 0 8-24 00:00: 00 [facility] Chronic pain of right knee Chronic pain of right knee Disease Active 0 8-24 00:00: 00 [facility] Right sided sciatica Right sided sciatica Disease Active 0 8-24 00:00: 00 [facility] Chronic pain of both shoulders Chronic pain of both shoulders Disease Active 0 8-24 00:00: 00 [facility] Degenerati ve disc disease at L5-S1 level Degenerati ve disc disease at L5-S1 level Disease Active 8-24 00:00: 00 [facility] Arthritis, multiple joint involvemen t Arthritis, multiple joint involvemen t Disease Active 8-24 00:00: 00 [facility] Chronic pain of both shoulders Chronic pain of both shoulders Disease Active 824 00:00: 00 [facility] Right sided sciatica Right sided sciatica Disease Active 12-08 00:00: 00 [facility] Status post hysterosco py Status post hysterosco py Disease Active 05-06 00:00: 00 [facility] S/P lumbar discectomy S/P lumbar discectomy Disease Active 05-06 00:00: 00 [facility] Elevated TSH Elevated TSH Disease Active 05-05 00:00: 00 [facility] Chronic bilateral low back pain with right-side d sciatica Chronic bilateral low back pain with right-side d sciatica Disease Active 05-05 00:00: 00 [facility] 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 Disease Active 05-05 00:00: 00 [facility] Blood clots in stool Blood clots in stool Disease Active 2020-04 0-06 00:00: 00 [facility] BMI 39.0-39.9, adult BMI 39.0-39.9, adult Disease Active 2020-04 0-06 00:00: 00 [facility] Gastroesop hageal reflux disease without esophagiti s Gastroesop hageal reflux disease without esophagiti s Disease Active 2019-04 0-06 00:00: 00 [facility] Anxiety Anxiety Disease Active 2019-04 0-06 00:00: 00 [facility] Chronic allergic rhinitis Chronic allergic rhinitis Disease Active 9-16 00:00: 00 [facility] Asymptomat ic hypertensi ve urgency Asymptomat ic hypertensi ve urgency Disease Active -16 00:00: 00 [facility] Non compliance w medication regimen Non compliance w medication regimen Disease Active 12-31 00:00: 00 [facility] Essential hypertensi on Essential hypertensi on Disease Active 01-14 00:00: 00 [facility] Renal stones Renal stones Disease Active 01-14 00:00: 00 [facility] Hepatomega ly Hepatomega ly Disease Active 01-14 00:00: 00 [facility] Encounter for weight management Encounter for weight management Disease Resolve d 1-19 00:00: 00 2022-01-28 00:00:00 2022-01-28 09:52:08 [facility] Rectal bleeding Rectal bleeding Disease Resolve d 2020-04 1-11 00:00: 00 2022-01-28 00:00:00 2022-01-28 09:52:17 Overview: Formattin g of this note might be different from the original. Added automatic ally from request for surgery [id number] [facility] Lower abdominal pain Lower abdominal pain Disease Resolve d 2020-04 0-06 00:00: 00 2022-01-28 00:00:00 2022-01-28 09:52:35 [facility] Acute maxillary sinusitis, recurrence not specified Acute maxillary sinusitis, recurrence not specified Disease Resolve d 9-16 00:00: 00 2022-01-28 00:00:00 2022-01-28 09:51:52 [facility] URI with cough and congestion URI with cough and congestion Disease Resolve d 9-16 00:00: 00 2022-01-28 00:00:00 2022-01-28 09:52:24 [facility] Encounter for insertion of Mirena IUD Encounter for insertion of Mirena IUD Disease Resolve d 1-20 00:00: 00 2021-05-20 00:00:00 2021-05-20 14:18:56 [facility] Pre-op evaluation Pre-op evaluation Disease Resolve d 1-07 00:00: 00 2021-05-20 00:00:00 2021-05-20 14:18:40 [facility] Retained intrauteri ne contracept clarissa device (IUD) Retained intrauteri ne contracept clarissa device (IUD) Disease Resolve d 1-07 00:00: 00 2021-05-20 00:00:00 2021-05-20 14:18:53 [facility] Family planning, IUD (intrauter ine device) check/rein sertion/re moval Family planning, IUD (intrauter ine device) check/rein sertion/re moval Disease Resolve d 2020-04 1 00:00: 00 2021-05-20 00:00:00 2021-05-20 14:18:30 [facility] Allergies, Adverse Reactions, Alerts Allergy Name Allergy Type Status Severity Reaction(s) Onset Date Inactive Date Treating Clinician Comments Source OXYCODON E DRUG INGREDI Active ITCHING 8- 00:00: 00 [facility] Oxycodon e Propensi ty to adverse reaction s Active Itching 12-01 00:00: 00 [facility] Codeine Propensi ty to adverse reaction s Active Shortness of Breath 2016-04 00:00: 00 [facility] Oxycodon e-Acetam inophen Propensi ty to adverse reaction s Active Itching 2016-04 00:00: 00 [facility] Prometha zine Hcl Propensi ty to adverse reaction s Active Other - See comments 2016-04 00:00: 00 convulsio ns [facility] Metoclop ramide Hcl Propensi ty to adverse reaction s Active Unknown - See comments 2016-04 00:00: 00 Convulsio n [facility] PROMETHA ZINE HCL DRUG INGREDI Active High Other-Cmnt 2016-04 00:00: 00 [facility] METOCLOP RAMIDE HCL DRUG INGREDI Active High Unknown-Cmnt 2016-04 00:00: 00 [facility] CODEINE DRUG INGREDI Active SOB 2016-04 00:00: 00 [facility] OXYCODON E-ACETAM INOPHEN DRUG Active ITCHING 2016-04 00:00: 00 [facility] Family History Family Member Diagnosis Comments Start Date Stop Date Sourc e Maternal grandmother Colon Cancer [facility] Paternal grandmother Breast Cancer [facility] Social History Social Habit Start Date Stop Date Quantity Comments Source Gender identity [facility] of Social function 2024-03-04 00:00:00 2024-03-04 00:00:00 [facility] Alcoholic beverage intake 2024-02-26 00:00:00 2024-02-26 00:00:00 Current non-drinker of alcohol (finding) [facility] Tobacco use and exposure 2023-03-21 00:00:00 2023-03-21 00:00:00 Smokeless tobacco non-user [facility] Alcohol intake 2023-03-21 00:00:00 2023-03-21 00:00:00 Current non-drinker of alcohol (finding) [facility] Exposure to SARS-CoV-2 (event) 2022-08-02 00:00:00 2022-08-12 11:17:00 Not sure [facility] Sex assigned at 1980 00:00:00 1980 00:00:00 [facility] Smoking Status Start Date Stop Date Source Never smoked tobacco [facility] Medications Ordered Medication Name Filled Medication Name Start Date Stop Date Current Medication? Ordering Clinician Indication Dosage Frequency Signature (SIG) Comments Components Source iopamidol (ISOVUE 370-500 mL) injection 84 mL 2023-04 16:45: 00 03-04 16:01 :00 No [id number] 84mL 84 mL, Intravenou s, ONCE, 1 dose, On Mon03/04/24 at 1045, Routine [facility] FLUoxetine (PROZAC) 40 mg capsule 2023-04 00:00: 00 Yes [id number] 40mg Take 1 capsule by mouth in the morning. [facility] meloxicam 7.5 mg tablet 2023-04 00:00: 00 Yes [id number] 7.5mg Take 1 tablet by mouth in the morning. [facility] doxycycline monohydrate 100 mg capsule 2023-04 00:00: 00 Yes [id number] 100mg Take 1 capsule by mouth in the morning and 1 capsule in the evening. Take with meals. [facility] clindamycin 1 % topical solution 2023-04 00:00: 00 Yes [id number] Apply to affected area(s) 2 (two) times daily. [facility] benzoyl peroxide 10 % external wash 2023-04 00:00: 00 Yes [id number] Apply to area(s) daily. Use in shower. Rinse off thoroughly , medication can bleach fabrics. [facility] adalimumab (ROSANNA SÁNCHEZ, PEN CROHNS-[facility] S) 80 mg/0.8 mL PnKt 2023-04 00:00: 00 Yes [id number] 80mg inject 1 Pen under the skin every 2 (two) weeks starting on day 29. [facility] LOSARTAN 50 mg tablet 2023-04 00:00: 00 Yes [id number] TAKE ONE (1) TABLET BY MOUTH IN THE MORNING. [facility] pantoprazol e 20 mg EC tablet 2023-04 00:00: 00 Yes [id number] 20mg Take 1 tablet by mouth in the morning. [facility] buPROPion SR 150 mg SR tablet 2023-04 00:00: 00 Yes [id number] 150mg Take 1 tablet by mouth in the morning and 1 tablet in the evening. [facility] vitamin C with jacob hips (VITAMIN C) 1,000 mg tablet 2023-04 00:00: 00 Yes [id number] 1000mg Take 1 tablet by mouth in the morning. [facility] Melatonin 5 mg Cap 2023-04 00:00: 00 Yes [id number] 1{capsu le} Take 1 capsule by mouth at bedtime as needed for Insomnia. [facility] ergocalcife rol, vitamin d2, 1,250 mcg (50,000 unit) capsule 2023-04 0 00:00: 00 Yes [id number] 69688H Take 1 capsule by mouth weekly. [facility] calcium carbonate 500 mg calcium (1,250 mg) tablet 2023-04 00:00: 00 Yes [id number] 500mg Take 1 tablet by mouth in the morning. [facility] fluticasone propionate 50 mcg/actuati on nasal spray 2023-04 00:00: 00 Yes [id number] 1{spray } Use 1 Coats in each nostril in the morning. [facility] azelastine 137 mcg (0.1 %) nasal spray 2023-04 00:00: 00 Yes [id number] 1{spray } Use 1 Coats in each nostril in the morning and 1 Coats in the evening. Use in each nostril as directed [facility] traZODone 50 mg tablet 2023-04 00:00: 00 Yes [id number] 50mg Take 1 tablet by mouth at bedtime. [facility] gabapentin 100 mg capsule 2023-04 0 00:00: 00 Yes [id number] 100mg Take 1 capsule by mouth in the morning and 1 capsule at noon and 1 capsule in the evening. [facility] buPROPion 75 mg tablet 2023-04 00:00: 00 02-01 00:00 :00 No [id number] 75mg Take 1 tablet by mouth in the morning and 1 tablet in the evening. [facility] metoprolol succinate XL 25 mg 24 hr tablet 01-10 00:00: 00 Yes [id number] TAKE ONE (1) TABLET(S) BY MOUTH IN THE MORNING. [facility] metoprolol succinate XL 25 mg 24 hr tablet 12-21 00:00: 00 01-10 00:00 :00 No [id number] TAKE ONE (1) TABLET(S) BY MOUTH IN THE MORNING. [facility] LEVOTHYROXI NE 25 mcg tablet 8 00:00: 03-04 00:00 :00 No [id number] TAKE ONE (1) TABLET BY MOUTH EVERY MORNING. [facility] METOPROLOL SUCCINATE XL 25 mg 24 hr tablet 8-09 00:00: 00 12-21 00:00 :00 No [id number] TAKE ONE (1) TABLET(S) BY MOUTH IN THE MORNING. [facility] METOPROLOL SUCCINATE XL 25 mg 24 hr tablet 7- 00:00: 00 11-23 00:00 :00 No [id number] 25mg TAKE 1 TABLET BY MOUTH IN THE MORNING. [facility] MELOXICAM 7.5 mg tablet 6-04 00:00: 00 03-04 00:00 :00 No [id number] 103 TAKE ONE (1) TABLET BY MOUTH IN THE MORNING. [facility] DULOXETINE 20 mg capsule 6 00:00: 00 01-24 00:00 :00 No [id number] TAKE ONE (1) CAPSULE BY MOUTH IN THE MORNING AND 1 CAPSULE IN THE EVENING. [facility] metoprolol succinate XL 25 mg 24 hr tablet 28 00:00: 00 10-15 00:00 :00 No [id number] 25mg Take 1 tablet by mouth in the morning. [facility] levothyroxi ne 25 mcg tablet 5-22 00:00: 00 12-03 00:00 :00 No [id number] TAKE ONE (1) TABLET BY MOUTH EVERY MORNING. [facility] TIZANIDINE 2 mg tablet 4-16 00:00: 00 Yes [id number] TAKE ONE (1) TABLET(S) BY MOUTH EVERY EIGHT HOURS NEEDED. [facility] AMITRIPTYLI NE 10 mg tablet 4-16 00:00: 00 01-09 00:00 :00 No [id number] 10mg TAKE ONE (1) TABLET BY MOUTH AT BEDTIME. [facility] LOSARTAN 50 mg tablet 4-15 00:00: 00 02-20 00:00 :00 No [id number] TAKE ONE (1) TABLET BY MOUTH IN THE MORNING. [facility] TIZANIDINE 2 mg tablet 3-14 00:00: 00 Yes [id number] TAKE ONE (1) TABLET(S) BY MOUTH EVERY EIGHT HOURS NEEDED FOR MUSCLE SPASMS. [facility] MELOXICAM 7.5 mg tablet 3-04 00:00: 00 09-18 00:00 :00 No [id number] 103 TAKE ONE (1) TABLET BY MOUTH IN THE MORNING. [facility] TIZANIDINE 2 mg tablet 2-13 00:00: 00 06-28 00:00 :00 No [id number] TAKE ONE (1) TABLET(S) BY MOUTH EVERY EIGHT HOURS NEEDED FOR MUSCLE SPASMS. [facility] TIZANIDINE 2 mg tablet 1-15 00:00: 00 Yes [id number] TAKE ONE (1) TABLET(S) BY MOUTH EVERY EIGHT HOURS NEEDED FOR MUSCLE SPASMS. [facility] pantoprazol e 20 mg EC tablet 1-15 00:00: 00 02-20 00:00 :00 No [id number] TAKE ONE (1) TABLET(S) BY MOUTH ONCE A DAY. [facility] DULOXETINE 20 mg capsule 2022-04 218 00:00: 00 09-18 00:00 :00 No [id number] TAKE ONE (1) CAPSULE BY MOUTH IN THE MORNING AND 1 CAPSULE IN THE EVENING. [facility] meloxicam 7.5 mg tablet 2022-04 2-18 00:00: 00 06-18 00:00 :00 No [id number] 103 TAKE ONE (1) TABLET BY MOUTH IN THE MORNING. [facility] tiZANidine 2 mg tablet 2022-04 2-14 00:00: 00 05-01 00:00 :00 No [id number] TAKE ONE (1) TABLET(S) BY MOUTH EVERY EIGHT HOURS NEEDED FOR MUSCLE SPASMS. [facility] PANTOPRAZOL E 20 mg EC tablet 2022-04 00:00: 00 05-01 00:00 :00 No [id number] TAKE ONE (1) TABLET(S) BY MOUTH ONCE A DAY. [facility] meloxicam 7.5 mg tablet 01-13 00:00: 00 04-03 00:00 :00 No [id number] 103 TAKE ONE (1) TABLET BY MOUTH IN THE MORNING. [facility] Melatonin 5 mg Cap 01-04 00:00: 00 01-29 00:00 :00 No [id number] 1{capsu le} Take 1 capsule by mouth at bedtime as needed for Insomnia. [facility] metoprolol succinate XL 25 mg 24 hr tablet 01-04 00:00: 00 09-11 00:00 :00 No [id number] 25mg Take 1 tablet by mouth in the morning. [facility] levothyroxi ne 25 mcg tablet 01-04 00:00: 00 09-05 00:00 :00 No [id number] TAKE ONE (1) TABLET BY MOUTH EVERY MORNING. [facility] amitriptyli ne 10 mg tablet 01-04 00:00: 00 07-31 00:00 :00 No [id number] 10mg Take 1 tablet by mouth at bedtime. [facility] losartan 50 mg tablet 01-04 00:00: 00 07-30 00:00 :00 No [id number] 50mg Take 1 tablet by mouth in the morning. [facility] MELOXICAM 7.5 mg tablet 12-29 00:00: 00 01-13 00:00 :00 No [id number] 103 TAKE ONE (1) TABLET BY MOUTH IN THE MORNING. [facility] PANTOPRAZOL E 20 mg EC tablet 12-20 00:00: 00 Yes [id number] TAKE ONE (1) TABLET(S) BY MOUTH ONCE A DAY. [facility] LEVOTHYROXI NE 25 mcg tablet 12-20 00:00: 01-04 00:00 :00 No [id number] TAKE ONE (1) TABLET BY MOUTH EVERY MORNING. [facility] acetaminoph en (TYLENOL) tablet 1,000 mg 12-01 18:45: 00 12-01 18:30 :00 No 1000mg 1,000 mg, Oral, ONCE, 1 dose, On Judi 12/01/22 at 1345, Routine [facility] LEVOTHYROXI NE 25 mcg tablet 11-21 00:00: 12-20 00:00 :00 No [id number] TAKE ONE (1) TABLET BY MOUTH EVERY MORNING. [facility] tirzepatide (MOUNJARO) 5 mg/0.5 mL PnIj 11-16 00:00: 00 03-21 00:00 :00 No [id number] 5mg inject 5 mg under the skin weekly. [facility] PANTOPRAZOL E 20 mg EC tablet 10-21 00:00: 00 12-20 00:00 :00 No [id number] TAKE ONE (1) TABLET(S) BY MOUTH ONCE A DAY. [facility] LEVOTHYROXI NE 25 mcg tablet 10-21 00:00: 00 11-21 00:00 :00 No [id number] TAKE ONE (1) TABLET BY MOUTH EVERY MORNING. [facility] losartan 50 mg tablet 10-13 00:00: 00 01-04 00:00 :00 No [id number] 50mg Take 1 tablet by mouth in the morning. [facility] metoprolol succinate XL 25 mg 24 hr tablet 10-13 00:00: 00 01-04 00:00 :00 No [id number] 25mg Take 1 tablet by mouth in the morning. [facility] gadoteridol (PROHANCE-2 0 mL) injection 0.2 mL/kg 10-12 21:15: 00 10-12 21:14 :00 No [id number] .2mL/kg 0.2 mL/kg, Intravenou s, ONCE, 1 dose, On Mon10/12/22 at 1615, Routine [facility] FLUOXETINE 20 mg capsule 10-07 00:00: 00 01-04 00:00 :00 No [id number] TAKE ONE (1) CAPSULE(S) BY MOUTH IN THE MORNING. [facility] ketorolac (TORADOL) injection 60 mg 10-04 22:30: 00 10-04 22:02 :00 No [id number] 60mg [facility] cloNIDine (CATAPRES) tablet 0.2 mg 10-04 22:30: 00 10-04 22:00 :40 No [id number] .2mg [facility] DULoxetine 20 mg capsule 10-04 00:00: 00 04-03 00:00 :00 No [id number] 20mg Take 1 capsule by mouth in the morning and 1 capsule in the evening. [facility] tiZANidine 2 mg tablet 10-04 00:00: 00 03-30 00:00 :00 No [id number] 2mg Take 1 tablet by mouth every 8 (eight) hours as needed (muscle spasms). [facility] tirzepatide (MOUNJARO) 5 mg/0.5 mL PnIj 10-04 00:00: 00 11-11 00:00 :00 No [id number] 5mg inject 5 mg under the skin weekly. [facility] losartan-hy drochloroth iazide 50-12.5 mg per tablet 10-04 00:00: 00 10-13 00:00 :00 No [id number] 1{tbl} Take 1 tablet by mouth in the morning. [facility] iopamidol (ISOVUE 370-500 mL) injection 80 mL 09-28 20:15: 00 09-28 20:15 :00 No [id number] 80mL 80 mL, Intravenou s, ONCE, 1 dose, On Mon09/28/22 at 1515, Routine [facility] NaCl 0.9% (NS) bolus infusion 1,000 mL 09-28 19:15: 00 09-28 21:35 :00 No 1000mL at 999 mL/hr, 1,000 mL, IV Infusion, ONCE, 1 dose, On Mon09/28/22 at 1415, JACQUI [facility] ondansetron (ZOFRAN (PF)) injection 4 mg 09-28 18:30: 00 09-28 19:03 :00 No 4mg 4 mg, Slow IV Push, ONCE, 1 dose, On Mon09/28/22 at 1330, JACQUI [facility] morpHINE (4 mg/mL) injection 4 mg 09-28 18:30: 00 09-28 19:03 :00 No 4mg 4 mg, Slow IV Push, ONCE, 1 dose, On Mon09/28/22 at 1330, STAT [facility] FLUOXETINE 20 mg capsule 09-21 00:00: 00 10-04 00:00 :00 No [id number] TAKE ONE (1) CAPSULE BY MOUTH IN THE MORNING. [facility] MELOXICAM 7.5 mg tablet 09-19 00:00: 00 12-29 00:00 :00 No [id number] 103 TAKE ONE (1) TABLET BY MOUTH IN THE MORNING. [facility] LEVOTHYROXI NE 25 mcg tablet 09-19 00:00: 00 10-21 00:00 :00 No [id number] TAKE ONE (1) TABLET BY MOUTH EVERY MORNING. [facility] MOUNJARO 5 mg/0.5 mL PnIj 10 00:00: 00 10-04 00:00 :00 No [id number] INJECT FIVE (5) MG INTO SKIN ONCE WEEKLY. [facility] FLUOXETINE 20 mg capsule 10 00:00: 00 09-21 00:00 :00 No [id number] TAKE ONE (1) CAPSULE BY MOUTH IN THE MORNING. [facility] PANTOPRAZOL E 20 mg EC tablet 08-17 00:00: 00 10-21 00:00 :00 No [id number] TAKE ONE (1) TABLET(S) BY MOUTH ONCE A DAY. [facility] LEVOTHYROXI NE 25 mcg tablet 08-17 00:00: 00 09-19 00:00 :00 No [id number] TAKE ONE (1) TABLET BY MOUTH EVERY MORNING. [facility] LEVOTHYROXI NE 25 mcg tablet - 00:00: 00 Yes [id number] TAKE ONE (1) TABLET BY MOUTH EVERY MORNING. [facility] MOUNJARO 5 mg/0.5 mL PnIj 07-07 00:00: 00 08-24 00:00 :00 No [id number] INJECT FIVE (5) MG SUBCUTANEO USLY WEEKLY. [facility] LEVOTHYROXI NE 25 mcg tablet 06-23 00:00: 00 07-21 00:00 :00 No [id number] TAKE ONE (1) TABLET BY MOUTH EVERY MORNING. [facility] MOUNJARO 5 mg/0.5 mL PnIj - 00:00: 00 07-07 00:00 :00 No [id number] INJECT FIVE (5) MG SUBCUTANEO USLY WEEKLY. [facility] PANTOPRAZOL E 20 mg EC tablet 06-09 00:00: 00 08-17 00:00 :00 No [id number] TAKE ONE (1) TABLET(S) BY MOUTH ONCE A DAY. [facility] losartan-hy drochloroth iazide 50-12.5 mg per tablet 06-03 00:00: 00 10-04 00:00 :00 No [id number] 1{tbl} Take 1 tablet by mouth in the morning. [facility] LOSARTAN-HY DROCHLOROTH IAZIDE 50-12.5 mg per tablet 2-13 00:00: 00 06-03 00:00 :00 No [id number] TAKE ONE (1) TABLET(S) BY MOUTH ONCE A DAY. [facility] tirzepatide (MOUNJARO) 5 mg/0.5 mL PnIj - 00:00: 00 06-13 00:00 :00 No [id number] 5mg inject 5 mg under the skin weekly. [facility] PANTOPRAZOL E 20 mg EC tablet 2021-04 00:00: 00 06-09 00:00 :00 No [id number] TAKE ONE (1) TABLET(S) BY MOUTH ONCE A DAY. [facility] LOSARTAN-HY DROCHLOROTH IAZIDE 50-12.5 mg per tablet 2021-04 00:00: 00 05-30 00:00 :00 No [id number] TAKE ONE (1) TABLET(S) BY MOUTH ONCE A DAY. [facility] ondansetron (ZOFRAN (PF)) injection 4 mg 2021-04 13:45: 00 02-03 13:42 :00 No 4mg 4 mg, Slow IV Push, ONCE, 1 dose, On Judi 02/03/22 at 0845, JACQUI [facility] ondansetron 4 mg disintegrat ing tablet 2021-04 00:00: 00 Yes [id number] 4mg Take 1 tablet by mouth every 8 (eight) hours as needed for Nausea and Vomiting (N/V). [facility] LOSARTAN-HY DROCHLOROTH IAZIDE 50-12.5 mg per tablet 2021-04 00:00: 00 03-30 00:00 :00 No [id number] TAKE ONE (1) TABLET(S) BY MOUTH ONCE A DAY. [facility] meloxicam 7.5 mg tablet 2021-04 16:54: 23 01-27 00:00 :00 No 7.5mg Take 7.5 mg by mouth in the morning. [facility] amitriptyli ne 10 mg tablet 2021-04 00:00: 00 01-04 00:00 :00 No [id number] 103 10mg Take 1 tablet by mouth at bedtime. [facility] doxycycline hyclate 100 mg tablet 2021-04 00:00: 00 10-04 00:00 :00 No [id number] 100mg Take 1 tablet by mouth in the morning and 1 tablet in the evening. [facility] tiZANidine 2 mg tablet 2021-04 00:00: 00 10-04 00:00 :00 No [id number] 103 2mg Take 1 tablet by mouth at bedtime as needed (muscle spasms). [facility] meloxicam 7.5 mg tablet 2021-04 00:00: 00 09-19 00:00 :00 No [id number] 103 7.5mg Take 1 tablet by mouth in the morning. [facility] FLUoxetine 20 mg capsule 2021-04 00:00: 00 08-24 00:00 :00 No [id number] 20mg Take 1 capsule by mouth in the morning. [facility] tirzepatide (MOUNJARO) 2.5 mg/0.5 mL PnIj 2021-04 00:00: 00 05-12 00:00 :00 No [id number] 2.5mg inject 2.5 mg under the skin weekly. Start 2.5mg SC qWeek x 4 Weeks, then increase to 5 mg SC qWeek [facility] TRULICITY 0.75 mg/0.5 mL PnIj 12-27 00:00: 00 01-27 00:00 :00 No [id number] .75mg INJECT 0.75 MG UNDER THE SKIN WEEKLY. [facility] meloxicam 7.5 mg tablet 12-23 15:52: 42 Yes 7.5mg Take 7.5 mg by mouth in the morning. [facility] Diclofenac Sodium (VOLTAREN) 1 % gel 12-23 00:00: 00 Yes [id number] Apply to area(s) 4 (four) times daily. Apply 4 g QID on affected areas [facility] acetaminoph en 650 mg CR tablet 12-23 00:00: 00 Yes [id number] 650mg Take 1 tablet by mouth every 8 (eight) hours as needed for Pain or Fever. [facility] doxycycline hyclate 100 mg tablet 12-23 00:00: 00 01-27 00:00 :00 No [id number] 100mg Take 1 tablet by mouth in the morning and 1 tablet in the evening. [facility] LEVOTHYROXI NE 25 mcg tablet 12-22 00:00: 00 06-23 00:00 :00 No [id number] TAKE ONE (1) TABLET BY MOUTH EVERY MORNING. [facility] lidocaine 5 % ointment 12-08 00:00: 00 Yes [id number] Apply 2g to affected areas BID PRN [facility] adalimumab 40 mg/0.4 mL injection 12-08 00:00: 00 01-09 00:00 :00 No [id number] Start 160mg SC x 1 on Day 1, then 80mg SC x 1 on day 15, then 40mg SC qWeek. [facility] amitriptyli ne 10 mg tablet 12-08 00:00: 00 01-27 00:00 :00 No [id number] 10mg Take 1 tablet by mouth at bedtime. [facility] tiZANidine 2 mg tablet 12-08 00:00: 00 01-27 00:00 :00 No [id number] 2mg Take 1 tablet by mouth every 8 (eight) hours as needed (muscle spasms). [facility] LOSARTAN-HY DROCHLOROTH IAZIDE 50-12.5 mg per tablet 11-26 00:00: 00 02-02 00:00 :00 No [id number] TAKE ONE (1) TABLET(S) BY MOUTH ONCE A DAY. [facility] FLUoxetine 20 mg capsule 6-17 00:00: 00 01-27 00:00 :00 No [id number] 20mg Take 1 capsule by mouth daily. [facility] PANTOPRAZOL E 20 mg EC tablet 2022-0 4-08 00:00: 00 04-13 00:00 :00 No [id number] TAKE ONE (1) TABLET(S) BY MOUTH ONCE A DAY. [facility] dulaglutide (TRULICITY) 1.5 mg/0.5 mL PnIj 06-23 00:00: 00 01-27 00:00 :00 No [id number] 1.5mg inject 1.5 mg under the skin weekly. [facility] dulaglutide (TRULICITY) 0.75 mg/0.5 mL PnIj 06-23 00:00: 00 12-27 00:00 :00 No [id number] .75mg inject 0.75 mg under the skin weekly. [facility] levothyroxi ne 25 mcg tablet 2020-04 00:00: 00 05-05 00:00 :00 No [id number] 25ug Take 1 tablet by mouth every morning. [facility] losartan-hy drochloroth iazide 50-12.5 mg per tablet 2020-04 0-06 00:00: 00 07-26 00:00 :00 No [id number] 1{tbl} Take 1 tablet by mouth daily. [facility] FLUoxetine 10 mg capsule 2020-04 0-06 00:00: 00 05-05 00:00 :00 No [id number] 10mg Take 1 capsule by mouth daily. [facility] pantoprazol e 20 mg EC tablet 2020-04 0-06 00:00: 00 04-20 00:00 :00 No [id number] 20mg Take 1 tablet by mouth daily. [facility] hydrOXYzine 50 mg tablet 2019-04 0-06 00:00: 00 12-23 00:00 :00 No [id number] 50mg Take 1 tablet by mouth every 8 (eight) hours as needed for Anxiety. [facility] vitamin C with jacob hips (VITAMIN C) 1,000 mg tablet 916 00:00: 00 01-29 00:00 :00 No [id number] 1000mg Take 1 tablet by mouth daily. [facility] Cholecalcif david, Vitamin D3, (VITAMIN D3) 125 mcg (5,000 unit) tablet 2019-0 12-31 00:00: 00 01-27 00:00 :00 No [id number] 5000U Take 1 tablet by mouth daily. [facility] Immunizations Ordered Immunization Name Filled Immunization Name Date Status Comments Source Influenza Virus Vaccine 2021-01-29 00:00:00 Completed [facility] Influenza Virus Vaccine 2021-01-29 00:00:00 Completed [facility] Influenza Virus Vaccine 2021-01-29 00:00:00 Completed [facility] Influenza Virus Vaccine 2021-01-29 00:00:00 Completed [facility] Influenza Virus Vaccine 2021-01-29 00:00:00 Completed [facility] Influenza Virus Vaccine 2021-01-29 00:00:00 Completed [facility] Influenza Virus Vaccine 2021-01-29 00:00:00 Completed [facility] Influenza Virus Vaccine 2021-01-29 00:00:00 Completed [facility] Influenza Virus Vaccine 2021-01-29 00:00:00 Completed [facility] Influenza Virus Vaccine 2021-01-29 00:00:00 Completed [facility] Influenza Virus Vaccine 2021-01-29 00:00:00 Completed [facility] Influenza Virus Vaccine 2021-01-29 00:00:00 Completed [facility] Influenza Virus Vaccine 2021-01-29 00:00:00 Completed [facility] Influenza Virus Vaccine 2021-01-29 00:00:00 Completed [facility] Influenza Virus Vaccine 2021-01-29 00:00:00 Completed [facility] Influenza Virus Vaccine 2021-01-29 00:00:00 Completed [facility] Influenza Virus Vaccine 2021-01-29 00:00:00 Completed [facility] Influenza Virus Vaccine 2021-01-29 00:00:00 Completed [facility] Influenza Virus Vaccine 2021-01-29 00:00:00 Completed [facility] Influenza Virus Vaccine 2021-01-29 00:00:00 Completed [facility] Influenza Virus Vaccine 2021-01-29 00:00:00 Completed [facility] Influenza Virus Vaccine 2021-01-29 00:00:00 Completed [facility] Influenza Virus Vaccine 2021-01-29 00:00:00 Completed [facility] Influenza Virus Vaccine 2021-01-29 00:00:00 Completed [facility] Influenza Virus Vaccine 2021-01-29 00:00:00 Completed [facility] Influenza Virus Vaccine 2021-01-29 00:00:00 Completed [facility] Influenza Virus Vaccine 2021-01-29 00:00:00 Completed [facility] Influenza Virus Vaccine 2021-01-29 00:00:00 Completed [facility] Influenza Virus Vaccine 2021-01-29 00:00:00 Completed [facility] Influenza Virus Vaccine 2021-01-29 00:00:00 Completed [facility] Influenza Virus Vaccine 2021-01-29 00:00:00 Completed [facility] Influenza Virus Vaccine 2021-01-29 00:00:00 Completed [facility] Influenza Virus Vaccine 2021-01-29 00:00:00 Completed [facility] Influenza Virus Vaccine 2021-01-29 00:00:00 Completed [facility] Influenza Virus Vaccine 2021-01-29 00:00:00 Completed [facility] Influenza Virus Vaccine 2021-01-29 00:00:00 Completed [facility] Influenza Virus Vaccine 2021-01-29 00:00:00 Completed [facility] Influenza Virus Vaccine 2021-01-29 00:00:00 Completed [facility] Influenza Virus Vaccine 2021-01-29 00:00:00 Completed [facility] Influenza Virus Vaccine 2021-01-29 00:00:00 Completed [facility] Influenza Virus Vaccine 2021-01-29 00:00:00 Completed [facility] Influenza Virus Vaccine 2021-01-29 00:00:00 Completed [facility] Influenza Virus Vaccine 2021-01-29 00:00:00 Completed [facility] Influenza Virus Vaccine 2021-01-29 00:00:00 Completed [facility] Influenza Virus Vaccine 2021-01-29 00:00:00 Completed [facility] Influenza Virus Vaccine 2021-01-29 00:00:00 Completed [facility] Influenza Virus Vaccine 2021-01-29 00:00:00 Completed [facility] Influenza Virus Vaccine 2021-01-29 00:00:00 Completed [facility] Influenza Virus Vaccine 2021-01-29 00:00:00 Completed [facility] Influenza Virus Vaccine 2021-01-29 00:00:00 Completed [facility] Influenza Virus Vaccine 2021-01-29 00:00:00 Completed [facility] Influenza Virus Vaccine 2021-01-29 00:00:00 Completed [facility] Influenza Virus Vaccine 2021-01-29 00:00:00 Completed [facility] Influenza Virus Vaccine 2021-01-29 00:00:00 Completed [facility] Influenza Virus Vaccine 2021-01-29 00:00:00 Completed [facility] Influenza Virus Vaccine 2021-01-29 00:00:00 Completed [facility] SARS-COV-2 COVID-19 PFIZER VACCINE 2020-12-11 00:00:00 Completed [facility] SARS-COV-2 COVID-19 PFIZER VACCINE 2020-12-11 00:00:00 Completed [facility] SARS-COV-2 COVID-19 PFIZER VACCINE 2020-12-11 00:00:00 Completed [facility] SARS-COV-2 COVID-19 PFIZER VACCINE 2020-12-11 00:00:00 Completed [facility] SARS-COV-2 COVID-19 PFIZER VACCINE 2020-12-11 00:00:00 Completed [facility] SARS-COV-2 COVID-19 PFIZER VACCINE 2020-12-11 00:00:00 Completed [facility] SARS-COV-2 COVID-19 PFIZER VACCINE 2020-12-11 00:00:00 Completed [facility] SARS-COV-2 COVID-19 PFIZER VACCINE 2020-12-11 00:00:00 Completed [facility] SARS-COV-2 COVID-19 PFIZER VACCINE 2020-12-11 00:00:00 Completed [facility] SARS-COV-2 COVID-19 PFIZER VACCINE 2020-12-11 00:00:00 Completed [facility] SARS-COV-2 COVID-19 PFIZER VACCINE 2020-12-11 00:00:00 Completed [facility] SARS-COV-2 COVID-19 PFIZER VACCINE 2020-12-11 00:00:00 Completed [facility] SARS-COV-2 COVID-19 PFIZER VACCINE 2020-12-11 00:00:00 Completed [facility] SARS-COV-2 COVID-19 PFIZER VACCINE 2020-12-11 00:00:00 Completed [facility] SARS-COV-2 COVID-19 PFIZER VACCINE 2020-12-11 00:00:00 Completed [facility] SARS-COV-2 COVID-19 PFIZER VACCINE 2020-12-11 00:00:00 Completed [facility] SARS-COV-2 COVID-19 PFIZER VACCINE 2020-12-11 00:00:00 Completed [facility] SARS-COV-2 COVID-19 PFIZER VACCINE 2020-12-11 00:00:00 Completed [facility] SARS-COV-2 COVID-19 PFIZER VACCINE 2020-12-11 00:00:00 Completed [facility] SARS-COV-2 COVID-19 PFIZER VACCINE 2020-12-11 00:00:00 Completed [facility] SARS-COV-2 COVID-19 PFIZER VACCINE 2020-12-11 00:00:00 Completed [facility] SARS-COV-2 COVID-19 PFIZER VACCINE 2020-12-11 00:00:00 Completed [facility] SARS-COV-2 COVID-19 PFIZER VACCINE 2020-12-11 00:00:00 Completed [facility] SARS-COV-2 COVID-19 PFIZER VACCINE 2020-12-11 00:00:00 Completed [facility] SARS-COV-2 COVID-19 PFIZER VACCINE 2020-12-11 00:00:00 Completed [facility] SARS-COV-2 COVID-19 PFIZER VACCINE 2020-12-11 00:00:00 Completed [facility] SARS-COV-2 COVID-19 PFIZER VACCINE 2020-12-11 00:00:00 Completed [facility] SARS-COV-2 COVID-19 PFIZER VACCINE 2020-12-11 00:00:00 Completed [facility] SARS-COV-2 COVID-19 PFIZER VACCINE 2020-12-11 00:00:00 Completed [facility] SARS-COV-2 COVID-19 PFIZER VACCINE 2020-12-11 00:00:00 Completed [facility] SARS-COV-2 COVID-19 PFIZER VACCINE 2020-12-11 00:00:00 Completed [facility] SARS-COV-2 COVID-19 PFIZER VACCINE 2020-12-11 00:00:00 Completed [facility] SARS-COV-2 COVID-19 PFIZER VACCINE 2020-12-11 00:00:00 Completed [facility] SARS-COV-2 COVID-19 PFIZER VACCINE 2020-12-11 00:00:00 Completed [facility] SARS-COV-2 COVID-19 PFIZER VACCINE 2020-12-11 00:00:00 Completed [facility] SARS-COV-2 COVID-19 PFIZER VACCINE 2020-12-11 00:00:00 Completed [facility] SARS-COV-2 COVID-19 PFIZER VACCINE 2020-12-11 00:00:00 Completed [facility] SARS-COV-2 COVID-19 PFIZER VACCINE 2020-12-11 00:00:00 Completed [facility] SARS-COV-2 COVID-19 PFIZER VACCINE 2020-12-11 00:00:00 Completed [facility] SARS-COV-2 COVID-19 PFIZER VACCINE 2020-12-11 00:00:00 Completed [facility] SARS-COV-2 COVID-19 PFIZER VACCINE 2020-12-11 00:00:00 Completed [facility] SARS-COV-2 COVID-19 PFIZER VACCINE 2020-12-11 00:00:00 Completed [facility] SARS-COV-2 COVID-19 PFIZER VACCINE 2020-12-11 00:00:00 Completed [facility] SARS-COV-2 COVID-19 PFIZER VACCINE 2020-12-11 00:00:00 Completed [facility] SARS-COV-2 COVID-19 PFIZER VACCINE 2020-12-11 00:00:00 Completed [facility] SARS-COV-2 COVID-19 PFIZER VACCINE 2020-12-11 00:00:00 Completed [facility] SARS-COV-2 COVID-19 PFIZER VACCINE 2020-12-11 00:00:00 Completed [facility] SARS-COV-2 COVID-19 PFIZER VACCINE 2020-12-11 00:00:00 Completed [facility] SARS-COV-2 COVID-19 PFIZER VACCINE 2020-12-11 00:00:00 Completed [facility] SARS-COV-2 COVID-19 PFIZER VACCINE 2020-12-11 00:00:00 Completed [facility] SARS-COV-2 COVID-19 PFIZER VACCINE 2020-12-11 00:00:00 Completed [facility] SARS-COV-2 COVID-19 PFIZER VACCINE 2020-12-11 00:00:00 Completed [facility] SARS-COV-2 COVID-19 PFIZER VACCINE 2020-12-11 00:00:00 Completed [facility] SARS-COV-2 COVID-19 PFIZER VACCINE 2020-12-11 00:00:00 Completed [facility] SARS-COV-2 COVID-19 PFIZER VACCINE 2020-12-11 00:00:00 Completed [facility] SARS-COV-2 COVID-19 PFIZER VACCINE 2020-12-11 00:00:00 Completed [facility] SARS-COV-2 COVID-19 PFIZER VACCINE 2020-11-14 00:00:00 Completed [facility] SARS-COV-2 COVID-19 PFIZER VACCINE 2020-11-14 00:00:00 Completed [facility] SARS-COV-2 COVID-19 PFIZER VACCINE 2020-11-14 00:00:00 Completed [facility] SARS-COV-2 COVID-19 PFIZER VACCINE 2020-11-14 00:00:00 Completed [facility] SARS-COV-2 COVID-19 PFIZER VACCINE 2020-11-14 00:00:00 Completed [facility] SARS-COV-2 COVID-19 PFIZER VACCINE 2020-11-14 00:00:00 Completed [facility] SARS-COV-2 COVID-19 PFIZER VACCINE 2020-11-14 00:00:00 Completed [facility] SARS-COV-2 COVID-19 PFIZER VACCINE 2020-11-14 00:00:00 Completed [facility] SARS-COV-2 COVID-19 PFIZER VACCINE 2020-11-14 00:00:00 Completed [facility] SARS-COV-2 COVID-19 PFIZER VACCINE 2020-11-14 00:00:00 Completed [facility] SARS-COV-2 COVID-19 PFIZER VACCINE 2020-11-14 00:00:00 Completed [facility] SARS-COV-2 COVID-19 PFIZER VACCINE 2020-11-14 00:00:00 Completed [facility] SARS-COV-2 COVID-19 PFIZER VACCINE 2020-11-14 00:00:00 Completed [facility] SARS-COV-2 COVID-19 PFIZER VACCINE 2020-11-14 00:00:00 Completed [facility] SARS-COV-2 COVID-19 PFIZER VACCINE 2020-11-14 00:00:00 Completed [facility] SARS-COV-2 COVID-19 PFIZER VACCINE 2020-11-14 00:00:00 Completed [facility] SARS-COV-2 COVID-19 PFIZER VACCINE 2020-11-14 00:00:00 Completed [facility] SARS-COV-2 COVID-19 PFIZER VACCINE 2020-11-14 00:00:00 Completed [facility] SARS-COV-2 COVID-19 PFIZER VACCINE 2020-11-14 00:00:00 Completed [facility] SARS-COV-2 COVID-19 PFIZER VACCINE 2020-11-14 00:00:00 Completed [facility] SARS-COV-2 COVID-19 PFIZER VACCINE 2020-11-14 00:00:00 Completed [facility] SARS-COV-2 COVID-19 PFIZER VACCINE 2020-11-14 00:00:00 Completed [facility] SARS-COV-2 COVID-19 PFIZER VACCINE 2020-11-14 00:00:00 Completed [facility] SARS-COV-2 COVID-19 PFIZER VACCINE 2020-11-14 00:00:00 Completed [facility] SARS-COV-2 COVID-19 PFIZER VACCINE 2020-11-14 00:00:00 Completed [facility] SARS-COV-2 COVID-19 PFIZER VACCINE 2020-11-14 00:00:00 Completed [facility] SARS-COV-2 COVID-19 PFIZER VACCINE 2020-11-14 00:00:00 Completed [facility] SARS-COV-2 COVID-19 PFIZER VACCINE 2020-11-14 00:00:00 Completed [facility] SARS-COV-2 COVID-19 PFIZER VACCINE 2020-11-14 00:00:00 Completed [facility] SARS-COV-2 COVID-19 PFIZER VACCINE 2020-11-14 00:00:00 Completed [facility] SARS-COV-2 COVID-19 PFIZER VACCINE 2020-11-14 00:00:00 Completed [facility] SARS-COV-2 COVID-19 PFIZER VACCINE 2020-11-14 00:00:00 Completed [facility] SARS-COV-2 COVID-19 PFIZER VACCINE 2020-11-14 00:00:00 Completed [facility] SARS-COV-2 COVID-19 PFIZER VACCINE 2020-11-14 00:00:00 Completed [facility] SARS-COV-2 COVID-19 PFIZER VACCINE 2020-11-14 00:00:00 Completed [facility] SARS-COV-2 COVID-19 PFIZER VACCINE 2020-11-14 00:00:00 Completed [facility] SARS-COV-2 COVID-19 PFIZER VACCINE 2020-11-14 00:00:00 Completed [facility] SARS-COV-2 COVID-19 PFIZER VACCINE 2020-11-14 00:00:00 Completed [facility] SARS-COV-2 COVID-19 PFIZER VACCINE 2020-11-14 00:00:00 Completed [facility] SARS-COV-2 COVID-19 PFIZER VACCINE 2020-11-14 00:00:00 Completed [facility] SARS-COV-2 COVID-19 PFIZER VACCINE 2020-11-14 00:00:00 Completed [facility] SARS-COV-2 COVID-19 PFIZER VACCINE 2020-11-14 00:00:00 Completed [facility] SARS-COV-2 COVID-19 PFIZER VACCINE 2020-11-14 00:00:00 Completed [facility] SARS-COV-2 COVID-19 PFIZER VACCINE 2020-11-14 00:00:00 Completed [facility] SARS-COV-2 COVID-19 PFIZER VACCINE 2020-11-14 00:00:00 Completed [facility] SARS-COV-2 COVID-19 PFIZER VACCINE 2020-11-14 00:00:00 Completed [facility] SARS-COV-2 COVID-19 PFIZER VACCINE 2020-11-14 00:00:00 Completed [facility] SARS-COV-2 COVID-19 PFIZER VACCINE 2020-11-14 00:00:00 Completed [facility] SARS-COV-2 COVID-19 PFIZER VACCINE 2020-11-14 00:00:00 Completed [facility] SARS-COV-2 COVID-19 PFIZER VACCINE 2020-11-14 00:00:00 Completed [facility] SARS-COV-2 COVID-19 PFIZER VACCINE 2020-11-14 00:00:00 Completed [facility] SARS-COV-2 COVID-19 PFIZER VACCINE 2020-11-14 00:00:00 Completed [facility] SARS-COV-2 COVID-19 PFIZER VACCINE 2020-11-14 00:00:00 Completed [facility] SARS-COV-2 COVID-19 PFIZER VACCINE 2020-11-14 00:00:00 Completed [facility] SARS-COV-2 COVID-19 PFIZER VACCINE 2020-11-14 00:00:00 Completed [facility] SARS-COV-2 COVID-19 PFIZER VACCINE 2020-11-14 00:00:00 Completed [facility] TDAP 2019-01-14 00:00:00 Completed [facility] Influenza Virus Vaccine Quad .5 mL IM 6+ MO 2019-01-14 00:00:00 Completed [facility] TDAP 2019-01-14 00:00:00 Completed [facility] Influenza Virus Vaccine Quad .5 mL IM 6+ MO 2019-01-14 00:00:00 Completed [facility] TDAP 2019-01-14 00:00:00 Completed [facility] Influenza Virus Vaccine Quad .5 mL IM 6+ MO 2019-01-14 00:00:00 Completed [facility] TDAP 2019-01-14 00:00:00 Completed [facility] Influenza Virus Vaccine Quad .5 mL IM 6+ MO 2019-01-14 00:00:00 Completed [facility] TDAP 2019-01-14 00:00:00 Completed [facility] Influenza Virus Vaccine Quad .5 mL IM 6+ MO 2019-01-14 00:00:00 Completed [facility] TDAP 2019-01-14 00:00:00 Completed [facility] Influenza Virus Vaccine Quad .5 mL IM 6+ MO 2019-01-14 00:00:00 Completed [facility] TDAP 2019-01-14 00:00:00 Completed [facility] Influenza Virus Vaccine Quad .5 mL IM 6+ MO 2019-01-14 00:00:00 Completed [facility] TDAP 2019-01-14 00:00:00 Completed [facility] Influenza Virus Vaccine Quad .5 mL IM 6+ MO 2019-01-14 00:00:00 Completed [facility] TDAP 2019-01-14 00:00:00 Completed [facility] Influenza Virus Vaccine Quad .5 mL IM 6+ MO 2019-01-14 00:00:00 Completed [facility] TDAP 2019-01-14 00:00:00 [facility] [facility] Vaccine Quad .5 mL IM 6+ MO 2019-01-14 00:00:00 Completed [facility] TDAP 2019-01-14 00:00:00 Completed [facility] Influenza Virus Vaccine Quad .5 mL IM 6+ MO 2019-01-14 00:00:00 Completed [facility] TDAP 2019-01-14 00:00:00 Completed [facility] Influenza Virus Vaccine Quad .5 mL IM 6+ MO 2019-01-14 00:00:00 Completed [facility] TDAP 2019-01-14 00:00:00 Completed [facility] Influenza Virus Vaccine Quad .5 mL IM 6+ MO 2019-01-14 00:00:00 Completed [facility] TDAP 2019-01-14 00:00:00 Completed [facility] Influenza Virus Vaccine Quad .5 mL IM 6+ MO 2019-01-14 00:00:00 Completed [facility] TDAP 2019-01-14 00:00:00 Completed [facility] Influenza Virus Vaccine Quad .5 mL IM 6+ MO 2019-01-14 00:00:00 Completed [facility] TDAP 2019-01-14 00:00:00 Completed [facility] Influenza Virus Vaccine Quad .5 mL IM 6+ MO 2019-01-14 00:00:00 Completed [facility] TDAP 2019-01-14 00:00:00 Completed [facility] Influenza Virus Vaccine Quad .5 mL IM 6+ MO 2019-01-14 00:00:00 Completed [facility] TDAP 2019-01-14 00:00:00 Completed [facility] Influenza Virus Vaccine Quad .5 mL IM 6+ MO 2019-01-14 00:00:00 Completed [facility] TDAP 2019-01-14 00:00:00 Completed [facility] Influenza Virus Vaccine Quad .5 mL IM 6+ MO 2019-01-14 00:00:00 Completed [facility] TDAP 2019-01-14 00:00:00 Completed [facility] Influenza Virus Vaccine Quad .5 mL IM 6+ MO 2019-01-14 00:00:00 Completed [facility] TDAP 2019-01-14 00:00:00 Completed [facility] Influenza Virus Vaccine Quad .5 mL IM 6+ MO 2019-01-14 00:00:00 Completed [facility] TDAP 2019-01-14 00:00:00 Completed [facility] Influenza Virus Vaccine Quad .5 mL IM 6+ MO 2019-01-14 00:00:00 Completed [facility] TDAP 2019-01-14 00:00:00 Completed [facility] Influenza Virus Vaccine Quad .5 mL IM 6+ MO 2019-01-14 00:00:00 Completed [facility] TDAP 2019-01-14 00:00:00 Completed [facility] Influenza Virus Vaccine Quad .5 mL IM 6+ MO 2019-01-14 00:00:00 Completed [facility] TDAP 2019-01-14 00:00:00 Completed [facility] Influenza Virus Vaccine Quad .5 mL IM 6+ MO 2019-01-14 00:00:00 Completed [facility] TDAP 2019-01-14 00:00:00 Completed [facility] Influenza Virus Vaccine Quad .5 mL IM 6+ MO 2019-01-14 00:00:00 Completed [facility] TDAP 2019-01-14 00:00:00 Completed [facility] Influenza Virus Vaccine Quad .5 mL IM 6+ MO 2019-01-14 00:00:00 Completed [facility] TDAP 2019-01-14 00:00:00 Completed [facility] Influenza Virus Vaccine Quad .5 mL IM 6+ MO 2019-01-14 00:00:00 Completed [facility] TDAP 2019-01-14 00:00:00 Completed [facility] Influenza Virus Vaccine Quad .5 mL IM 6+ MO 2019-01-14 00:00:00 Completed [facility] TDAP 2019-01-14 00:00:00 Completed [facility] Influenza Virus Vaccine Quad .5 mL IM 6+ MO 2019-01-14 00:00:00 Completed [facility] TDAP 2019-01-14 00:00:00 Completed [facility] Influenza Virus Vaccine Quad .5 mL IM 6+ MO 2019-01-14 00:00:00 Completed [facility] TDAP 2019-01-14 00:00:00 Completed [facility] Influenza Virus Vaccine Quad .5 mL IM 6+ MO 2019-01-14 00:00:00 Completed [facility] TDAP 2019-01-14 00:00:00 Completed [facility] Influenza Virus Vaccine Quad .5 mL IM 6+ MO 2019-01-14 00:00:00 Completed [facility] TDAP 2019-01-14 00:00:00 Completed [facility] Influenza Virus Vaccine Quad .5 mL IM 6+ MO 2019-01-14 00:00:00 Completed [facility] TDAP 2019-01-14 00:00:00 Completed [facility] Influenza Virus Vaccine Quad .5 mL IM 6+ MO 2019-01-14 00:00:00 Completed [facility] TDAP 2019-01-14 00:00:00 Completed [facility] Influenza Virus Vaccine Quad .5 mL IM 6+ MO 2019-01-14 00:00:00 Completed [facility] TDAP 2019-01-14 00:00:00 Completed [facility] Influenza Virus Vaccine Quad .5 mL IM 6+ MO 2019-01-14 00:00:00 Completed [facility] TDAP 2019-01-14 00:00:00 Completed [facility] Influenza Virus Vaccine Quad .5 mL IM 6+ MO 2019-01-14 00:00:00 Completed [facility] TDAP 2019-01-14 00:00:00 Completed [facility] Influenza Virus Vaccine Quad .5 mL IM 6+ MO 2019-01-14 00:00:00 Completed [facility] TDAP 2019-01-14 00:00:00 Completed [facility] Influenza Virus Vaccine Quad .5 mL IM 6+ MO 2019-01-14 00:00:00 Completed [facility] TDAP 2019-01-14 00:00:00 Completed [facility] Influenza Virus Vaccine Quad .5 mL IM 6+ MO 2019-01-14 00:00:00 Completed [facility] TDAP 2019-01-14 00:00:00 Completed [facility] Influenza Virus Vaccine Quad .5 mL IM 6+ MO 2019-01-14 00:00:00 Completed [facility] TDAP 2019-01-14 00:00:00 Completed [facility] Influenza Virus Vaccine Quad .5 mL IM 6+ MO 2019-01-14 00:00:00 Completed [facility] TDAP 2019-01-14 00:00:00 Completed [facility] Influenza Virus Vaccine Quad .5 mL IM 6+ MO 2019-01-14 00:00:00 Completed [facility] TDAP 2019-01-14 00:00:00 Completed [facility] Influenza Virus Vaccine Quad .5 mL IM 6+ MO 2019-01-14 00:00:00 Completed [facility] TDAP 2019-01-14 00:00:00 Completed [facility] Influenza Virus Vaccine Quad .5 mL IM 6+ MO 2019-01-14 00:00:00 Completed [facility] TDAP 2019-01-14 00:00:00 Completed [facility] Influenza Virus Vaccine Quad .5 mL IM 6+ MO 2019-01-14 00:00:00 Completed [facility] TDAP 2019-01-14 00:00:00 Completed [facility] Influenza Virus Vaccine Quad .5 mL IM 6+ MO 2019-01-14 00:00:00 Completed [facility] TDAP 2019-01-14 00:00:00 Completed [facility] Influenza Virus Vaccine Quad .5 mL IM 6+ MO 2019-01-14 00:00:00 Completed [facility] TDAP 2019-01-14 00:00:00 Completed [facility] Influenza Virus Vaccine Quad .5 mL IM 6+ MO 2019-01-14 00:00:00 Completed [facility] TDAP 2019-01-14 00:00:00 Completed [facility] Influenza Virus Vaccine Quad .5 mL IM 6+ MO (FLUZONE/FLULAVAL/F LUARIX) 2019-01-14 00:00:00 Completed [facility] TDAP 2019-01-14 00:00:00 Completed [facility] Influenza Virus Vaccine Quad .5 mL IM 6+ MO (FLUZONE/FLULAVAL/F LUARIX) 2019-01-14 00:00:00 Completed [facility] TDAP 2019-01-14 00:00:00 Completed [facility] Influenza Virus Vaccine Quad .5 mL IM 6+ MO (FLUZONE/FLULAVAL/F LUARIX) 2019-01-14 00:00:00 Completed [facility] TDAP 2019-01-14 00:00:00 Completed [facility] Influenza Virus Vaccine Quad .5 mL IM 6+ MO (FLUZONE/FLULAVAL/F LUARIX) 2019-01-14 00:00:00 Completed [facility] TDAP 2019-01-14 00:00:00 Completed [facility] Influenza Virus Vaccine Quad .5 mL IM 6+ MO (FLUZONE/FLULAVAL/F LUARIX) 2019-01-14 00:00:00 Completed TDAP 2019-01-14 00:00:00 Completed [facility] Influenza Virus Vaccine Quad .5 mL IM 6+ MO (FLUZONE/FLULAVAL/F LUARIX) 2019-01-14 00:00:00 Completed TDAP Unknown Completed [facility] Influenza Virus Vaccine Quad .5 mL IM 6+ MO (FLUZONE/FLULAVAL/F LUARIX) Unknown Completed [facility] SARS-COV-2 COVID-19 PFIZER VACCINE Unknown Completed [facility] Influenza Virus Vaccine Unknown Completed [facility] TDAP Unknown Completed [facility] Influenza Virus Vaccine Quad .5 mL IM 6+ MO (FLUZONE/FLULAVAL/F LUARIX) Unknown Completed [facility] SARS-COV-2 COVID-19 PFIZER VACCINE Unknown Completed [facility] Influenza Virus Vaccine Unknown Completed [facility] TDAP Unknown Completed [facility] Influenza Virus Vaccine Quad .5 mL IM 6+ MO (FLUZONE/FLULAVAL/F LUARIX) Unknown Completed [facility] SARS-COV-2 COVID-19 PFIZER VACCINE Unknown Completed [facility] Influenza Virus Vaccine Unknown Completed [facility] TDAP Unknown Completed [facility] Influenza Virus Vaccine Quad .5 mL IM 6+ MO (FLUZONE/FLULAVAL/F LUARIX) Unknown Completed [facility] SARS-COV-2 COVID-19 PFIZER VACCINE Unknown Completed [facility] Influenza Virus Vaccine Unknown Completed [facility] TDAP Unknown Completed [facility] Influenza Virus Vaccine Quad .5 mL IM 6+ MO (FLUZONE/FLULAVAL/F LUARIX) Unknown Completed [facility] SARS-COV-2 COVID-19 PFIZER VACCINE Unknown Completed [facility] Influenza Virus Vaccine Unknown Completed [facility] TDAP Unknown Completed [facility] Influenza Virus Vaccine Quad .5 mL IM 6+ MO (FLUZONE/FLULAVAL/F LUARIX) Unknown Completed [facility] SARS-COV-2 COVID-19 PFIZER VACCINE Unknown Completed [facility] Influenza Virus Vaccine Unknown Completed [facility] TDAP Unknown Completed [facility] Influenza Virus Vaccine Quad .5 mL IM 6+ MO (FLUZONE/FLULAVAL/F LUARIX) Unknown Completed [facility] SARS-COV-2 COVID-19 PFIZER VACCINE Unknown Completed [facility] Influenza Virus Vaccine Unknown Completed [facility] TDAP Unknown Completed [facility] Influenza Virus Vaccine Quad .5 mL IM 6+ MO (FLUZONE/FLULAVAL/F LUARIX) Unknown Completed [facility] SARS-COV-2 COVID-19 PFIZER VACCINE Unknown Completed [facility] Influenza Virus Vaccine Unknown Completed [facility] TDAP Unknown Completed [facility] Influenza Virus Vaccine Quad .5 mL IM 6+ MO (FLUZONE/FLULAVAL/F LUARIX) Unknown Completed [facility] SARS-COV-2 COVID-19 PFIZER VACCINE Unknown Completed [facility] Influenza Virus Vaccine Unknown Completed [facility] TDAP Unknown Completed [facility] Influenza Virus Vaccine Quad .5 mL IM 6+ MO (FLUZONE/FLULAVAL/F LUARIX) Unknown Completed [facility] SARS-COV-2 COVID-19 PFIZER VACCINE Unknown Completed [facility] Influenza Virus Vaccine Unknown Completed [facility] TDAP Unknown Completed [facility] Influenza Virus Vaccine Quad .5 mL IM 6+ MO (FLUZONE/FLULAVAL/F LUARIX) Unknown Completed [facility] SARS-COV-2 COVID-19 PFIZER VACCINE Unknown Completed [facility] Influenza Virus Vaccine Unknown Completed [facility] TDAP Unknown Completed [facility] Influenza Virus Vaccine Quad .5 mL IM 6+ MO (FLUZONE/FLULAVAL/F LUARIX) Unknown Completed [facility] SARS-COV-2 COVID-19 PFIZER VACCINE Unknown Completed [facility] Influenza Virus Vaccine Unknown Completed [facility] TDAP Unknown Completed [facility] Influenza Virus Vaccine Quad .5 mL IM 6+ MO (FLUZONE/FLULAVAL/F LUARIX) Unknown Completed [facility] SARS-COV-2 COVID-19 PFIZER VACCINE Unknown Completed [facility] Influenza Virus Vaccine Unknown Completed [facility] TDAP Unknown Completed [facility] Influenza Virus Vaccine Quad .5 mL IM 6+ MO (FLUZONE/FLULAVAL/F LUARIX) Unknown Completed [facility] SARS-COV-2 COVID-19 PFIZER VACCINE Unknown Completed [facility] TDAP Unknown Completed [facility] Influenza Virus Vaccine Quad .5 mL IM 6+ MO (FLUZONE/FLULAVAL/F LUARIX) Unknown Completed [facility] SARS-COV-2 COVID-19 PFIZER VACCINE Unknown Completed [facility] TDAP Unknown Completed [facility] Influenza Virus Vaccine Quad .5 mL IM 6+ MO (FLUZONE/FLULAVAL/F LUARIX) Unknown Completed [facility] SARS-COV-2 COVID-19 PFIZER VACCINE Unknown Completed [facility] Influenza Virus Vaccine Unknown Completed [facility] TDAP Unknown Completed [facility] Influenza Virus Vaccine Quad .5 mL IM 6+ MO (FLUZONE/FLULAVAL/F LUARIX) Unknown Completed [facility] SARS-COV-2 COVID-19 PFIZER VACCINE Unknown Completed [facility] Influenza Virus Vaccine Unknown Completed [facility] TDAP Unknown Completed [facility] Influenza Virus Vaccine Quad .5 mL IM 6+ MO (FLUZONE/FLULAVAL/F LUARIX) Unknown Completed [facility] SARS-COV-2 COVID-19 PFIZER VACCINE Unknown Completed [facility] Influenza Virus Vaccine Unknown Completed [facility] TDAP Unknown Completed [facility] Influenza Virus Vaccine Quad .5 mL IM 6+ MO (FLUZONE/FLULAVAL/F LUARIX) Unknown Completed [facility] SARS-COV-2 COVID-19 PFIZER VACCINE Unknown Completed [facility] Influenza Virus Vaccine Unknown Completed [facility] TDAP Unknown Completed [facility] Influenza Virus Vaccine Quad .5 mL IM 6+ MO (FLUZONE/FLULAVAL/F LUARIX) Unknown Completed [facility] SARS-COV-2 COVID-19 PFIZER VACCINE Unknown Completed [facility] Influenza Virus Vaccine Unknown Completed [facility] TDAP Unknown Completed [facility] Influenza Virus Vaccine Quad .5 mL IM 6+ MO (FLUZONE/FLULAVAL/F LUARIX) Unknown Completed [facility] SARS-COV-2 COVID-19 PFIZER VACCINE Unknown Completed [facility] Influenza Virus Vaccine Unknown Completed [facility] TDAP Unknown Completed [facility] Influenza Virus Vaccine Quad .5 mL IM 6+ MO (FLUZONE/FLULAVAL/F LUARIX) Unknown Completed [facility] Influenza Virus Vaccine Unknown Completed [facility] SARS-COV-2 COVID-19 PFIZER VACCINE Unknown Completed [facility] TDAP Unknown Completed [facility] Influenza Virus Vaccine Quad .5 mL IM 6+ MO (FLUZONE/FLULAVAL/F LUARIX) Unknown Completed [facility] SARS-COV-2 COVID-19 PFIZER VACCINE Unknown Completed [facility] Influenza Virus Vaccine Unknown Completed [facility] TDAP Unknown Completed [facility] Influenza Virus Vaccine Quad .5 mL IM 6+ MO (FLUZONE/FLULAVAL/F LUARIX) Unknown Completed [facility] Influenza Virus Vaccine Unknown Completed [facility] SARS-COV-2 COVID-19 PFIZER VACCINE Unknown Completed [facility] TDAP Unknown Completed [facility] Influenza Virus Vaccine Quad .5 mL IM 6+ MO (FLUZONE/FLULAVAL/F LUARIX) Unknown Completed [facility] SARS-COV-2 COVID-19 PFIZER VACCINE Unknown Completed [facility] Influenza Virus Vaccine Unknown Completed [facility] TDAP Unknown Completed [facility] Influenza Virus Vaccine Quad .5 mL IM 6+ MO (FLUZONE/FLULAVAL/F LUARIX) Unknown Completed [facility] SARS-COV-2 COVID-19 PFIZER VACCINE Unknown Completed [facility] Influenza Virus Vaccine Unknown Completed [facility] TDAP Unknown Completed [facility] Influenza Virus Vaccine Quad .5 mL IM 6+ MO (FLUZONE/FLULAVAL/F LUARIX) Unknown Completed [facility] SARS-COV-2 COVID-19 PFIZER VACCINE Unknown Completed [facility] Influenza Virus Vaccine Unknown Completed [facility] TDAP Unknown Completed [facility] Influenza Virus Vaccine Quad .5 mL IM 6+ MO (FLUZONE/FLULAVAL/F LUARIX) Unknown Completed [facility] SARS-COV-2 COVID-19 PFIZER VACCINE Unknown Completed [facility] Influenza Virus Vaccine Unknown Completed [facility] TDAP Unknown Completed [facility] Influenza Virus Vaccine Quad .5 mL IM 6+ MO (FLUZONE/FLULAVAL/F LUARIX) Unknown Completed [facility] SARS-COV-2 COVID-19 PFIZER VACCINE Unknown Completed [facility] Influenza Virus Vaccine Unknown Completed [facility] TDAP Unknown Completed [facility] Influenza Virus Vaccine Quad .5 mL IM 6+ MO (FLUZONE/FLULAVAL/F LUARIX) Unknown Completed [facility] SARS-COV-2 COVID-19 PFIZER VACCINE Unknown Completed [facility] Influenza Virus Vaccine Unknown Completed [facility] TDAP Unknown Completed [facility] Influenza Virus Vaccine Quad .5 mL IM 6+ MO (FLUZONE/FLULAVAL/F LUARIX) Unknown Completed [facility] SARS-COV-2 COVID-19 PFIZER VACCINE Unknown Completed [facility] Influenza Virus Vaccine Unknown Completed [facility] TDAP Unknown Completed [facility] Influenza Virus Vaccine Quad .5 mL IM 6+ MO (FLUZONE/FLULAVAL/F LUARIX) Unknown Completed [facility] SARS-COV-2 COVID-19 PFIZER VACCINE Unknown Completed [facility] Influenza Virus Vaccine Unknown Completed [facility] TDAP Unknown Completed [facility] Influenza Virus Vaccine Quad .5 mL IM 6+ MO (FLUZONE/FLULAVAL/F LUARIX) Unknown Completed [facility] SARS-COV-2 COVID-19 PFIZER VACCINE Unknown Completed [facility] Influenza Virus Vaccine Unknown Completed [facility] TDAP Unknown Completed [facility] Influenza Virus Vaccine Quad .5 mL IM 6+ MO (FLUZONE/FLULAVAL/F LUARIX) Unknown Completed [facility] SARS-COV-2 COVID-19 PFIZER VACCINE Unknown Completed [facility] Influenza Virus Vaccine Unknown Completed [facility] TDAP Unknown Completed [facility] Influenza Virus Vaccine Quad .5 mL IM 6+ MO (FLUZONE/FLULAVAL/F LUARIX) Unknown Completed [facility] SARS-COV-2 COVID-19 PFIZER VACCINE Unknown Completed [facility] Influenza Virus Vaccine Unknown Completed [facility] TDAP Unknown Completed [facility] Influenza Virus Vaccine Quad .5 mL IM 6+ MO (FLUZONE/FLULAVAL/F LUARIX) Unknown Completed [facility] SARS-COV-2 COVID-19 PFIZER VACCINE Unknown Completed [facility] Influenza Virus Vaccine Unknown Completed [facility] TDAP Unknown Completed [facility] Influenza Virus Vaccine Quad .5 mL IM 6+ MO (FLUZONE/FLULAVAL/F LUARIX) Unknown Completed [facility] SARS-COV-2 COVID-19 PFIZER VACCINE Unknown Completed [facility] Influenza Virus Vaccine Unknown Completed [facility] TDAP Unknown Completed [facility] Influenza Virus Vaccine Quad .5 mL IM 6+ MO (FLUZONE/FLULAVAL/F LUARIX) Unknown Completed [facility] SARS-COV-2 COVID-19 PFIZER VACCINE Unknown Completed [facility] Influenza Virus Vaccine Unknown Completed [facility] TDAP Unknown Completed [facility] Influenza Virus Vaccine Quad .5 mL IM 6+ MO (FLUZONE/FLULAVAL/F LUARIX) Unknown Completed [facility] SARS-COV-2 COVID-19 PFIZER VACCINE Unknown Completed [facility] Influenza Virus Vaccine Unknown Completed [facility] TDAP Unknown Completed [facility] Influenza Virus Vaccine Quad .5 mL IM 6+ MO (FLUZONE/FLULAVAL/F LUARIX) Unknown Completed [facility] SARS-COV-2 COVID-19 PFIZER VACCINE Unknown Completed [facility] Influenza Virus Vaccine Unknown Completed [facility] TDAP Unknown Completed [facility] Influenza Virus Vaccine Quad .5 mL IM 6+ MO (FLUZONE/FLULAVAL/F LUARIX) Unknown Completed [facility] SARS-COV-2 COVID-19 PFIZER VACCINE Unknown Completed [facility] Influenza Virus Vaccine Unknown Completed [facility] TDAP Unknown Completed [facility] Influenza Virus Vaccine Quad .5 mL IM 6+ MO (FLUZONE/FLULAVAL/F LUARIX) Unknown Completed [facility] SARS-COV-2 COVID-19 PFIZER VACCINE Unknown Completed [facility] Influenza Virus Vaccine Unknown Completed [facility] Vital Signs Vital Name Observation Time Observation Value Comments S ource Body temperature 2024-02-26 20:36:00 36.28 [facility] Body height 2024-02-26 20:36:00 165.1 cm [facility] Body weight 2024-02-26 20:36:00 103.057 kg [facility] BMI 2024-02-26 20:36:00 37.81 kg/m2 [facility] Respiratory rate 2024-02-26 16:25:00 16 /min [facility] Body height 2024-02-26 16:25:00 165.1 cm [facility] Body weight 2024-02-26 16:25:00 99.791 kg [facility] BMI 2024-02-26 16:25:00 36.61 kg/m2 [facility] Body height 2024-02-23 16:25:00 165.1 cm [facility] Systolic blood pressure 2024-01-25 14:09:00 144 mm[Hg] [facility] Diastolic blood pressure 2024-01-25 14:09:00 100 mm[Hg] [facility] Heart rate 2024-01-25 14:09:00 79 /min [facility] Body temperature 2024-01-25 14:09:00 36.39 [facility] Body height 2024-01-25 14:09:00 165.1 cm [facility] Body weight 2024-01-25 14:09:00 101.606 kg [facility] BMI 2024-01-25 14:09:00 37.28 kg/m2 [facility] Oxygen saturation in Arterial blood by Pulse oximetry 2024-01-25 14:09:00 99 /min [facility] Systolic blood pressure 2024-01-10 15:25:00 140 mm[Hg] [facility] Diastolic blood pressure 2024-01-10 15:25:00 96 mm[Hg] [facility] Heart rate 2024-01-10 15:25:00 78 /min [facility] Body temperature 2024-01-10 15:24:00 35.94 [facility] Body height 2024-01-10 15:24:00 165.1 cm [facility] Body weight 2024-01-10 15:24:00 102.967 kg [facility] BMI 2024-01-10 15:24:00 37.77 kg/m2 [facility] Oxygen saturation in Arterial blood by Pulse oximetry 2024-01-10 15:24:00 99 /min [facility] Systolic blood pressure 2023-03-21 21:51:00 120 mm[Hg] [facility] Diastolic blood pressure 2023-03-21 21:51:00 85 mm[Hg] [facility] Heart rate 2023-03-21 21:51:00 61 /min [facility] Respiratory rate 2023-03-21 21:51:00 18 /min [facility] Body height 2023-03-21 21:51:00 165.1 cm [facility] Body weight 2023-03-21 21:51:00 85.775 kg [facility] BMI 2023-03-21 21:51:00 31.47 kg/m2 [facility] Oxygen saturation in Arterial blood by Pulse oximetry 2023-03-21 21:51:00 99 /min [facility] Systolic blood pressure 2023-01-04 14:52:00 145 mm[Hg] [facility] Diastolic blood pressure 2023-01-04 14:52:00 92 mm[Hg] [facility] Heart rate 2023-01-04 14:43:00 88 /min [facility] Body temperature 2023-01-04 14:43:00 36.61 [facility] Respiratory rate 2023-01-04 14:43:00 18 /min [facility] Body height 2023-01-04 14:43:00 165.1 cm [facility] Body weight 2023-01-04 14:43:00 80.74 kg [facility] BMI 2023-01-04 14:43:00 29.62 kg/m2 [facility] Systolic blood pressure 2022-12-01 19:30:41 110 mm[Hg] [facility] Diastolic blood pressure 2022-12-01 19:30:41 90 mm[Hg] [facility] Heart rate 2022-12-01 19:30:41 61 /min [facility] Body temperature 2022-12-01 19:30:41 36.72 [facility] Respiratory rate 2022-12-01 19:30:41 17 /min [facility] Oxygen saturation in Arterial blood by Pulse oximetry 2022-12-01 19:30:41 96 /min [facility] Body height 2022-12-01 16:56:00 165.1 cm [facility] Body weight 2022-12-01 16:56:00 79.379 kg [facility] BMI 2022-12-01 16:56:00 29.12 kg/m2 [facility] Systolic blood pressure 2022-10-21 15:53:00 121 mm[Hg] [facility] Diastolic blood pressure 2022-10-21 15:53:00 86 mm[Hg] [facility] Heart rate 2022-10-21 15:53:00 79 /min [facility] Body height 2022-10-21 15:53:00 165.1 cm [facility] Body weight 2022-10-21 15:53:00 82.01 kg [facility] BMI 2022-10-21 15:53:00 30.09 kg/m2 [facility] Oxygen saturation in Arterial blood by Pulse oximetry 2022-10-21 15:53:00 97 /min [facility] Systolic blood pressure 2022-10-13 20:29:00 135 mm[Hg] pt felt unbalanced/torin ey [facility] Diastolic blood pressure 2022-10-13 20:29:00 102 mm[Hg] pt felt unbalanced/torin ey [facility] Heart rate 2022-10-13 20:29:00 116 /min [facility] Oxygen saturation in Arterial blood by Pulse oximetry 2022-10-13 20:29:00 97 /min [facility] Body temperature 2022-10-13 19:57:00 37.17 [facility] Respiratory rate 2022-10-13 19:57:00 18 /min [facility] Body height 2022-10-13 19:57:00 165.1 cm [facility] Body weight 2022-10-13 19:57:00 81.449 kg [facility] BMI 2022-10-13 19:57:00 29.88 kg/m2 [facility] Systolic blood pressure 2022-10-04 21:10:00 148 mm[Hg] [facility] Diastolic blood pressure 2022-10-04 21:10:00 98 mm[Hg] [facility] Heart rate 2022-10-04 21:06:00 99 /min [facility] Body temperature 2022-10-04 21:06:00 36.83 [facility] Respiratory rate 2022-10-04 21:06:00 18 /min [facility] Body height 2022-10-04 21:06:00 165.1 cm [facility] Body weight 2022-10-04 21:06:00 82.555 kg [facility] BMI 2022-10-04 21:06:00 30.29 kg/m2 [facility] Oxygen saturation in Arterial blood by Pulse oximetry 2022-10-04 21:06:00 99 /min [facility] Systolic blood pressure 2022-09-28 21:00:00 129 mm[Hg] [facility] Diastolic blood pressure 2022-09-28 21:00:00 96 mm[Hg] [facility] Heart rate 2022-09-28 21:00:00 76 /min [facility] Respiratory rate 2022-09-28 21:00:00 13 /min [facility] Oxygen saturation in Arterial blood by Pulse oximetry 2022-09-28 21:00:00 97 /min [facility] Body temperature 2022-09-28 17:45:00 37.11 [facility] Body weight 2022-09-28 17:45:00 94.802 kg [facility] BMI 2022-09-28 17:45:00 34.78 kg/m2 [facility] Systolic blood pressure 2022-06-03 20:07:00 138 mm[Hg] [facility] Diastolic blood pressure 2022-06-03 20:07:00 90 mm[Hg] [facility] Heart rate 2022-06-03 20:06:00 92 /min [facility] Respiratory rate 2022-06-03 20:06:00 18 /min [facility] Body height 2022-06-03 20:06:00 165.1 cm [facility] Body weight 2022-06-03 20:06:00 94.802 kg [facility] BMI 2022-06-03 20:06:00 34.78 kg/m2 [facility] Oxygen saturation in Arterial blood by Pulse oximetry 2022-06-03 20:06:00 97 /min [facility] Systolic blood pressure 2022-02-03 14:00:00 139 mm[Hg] [facility] Diastolic blood pressure 2022-02-03 14:00:00 91 mm[Hg] [facility] Heart rate 2022-02-03 14:00:00 73 /min [facility] Respiratory rate 2022-02-03 14:00:00 18 /min [facility] Oxygen saturation in Arterial blood by Pulse oximetry 2022-02-03 14:00:00 97 /min [facility] Body temperature 2022-02-03 13:18:00 36.61 [facility] Body weight 2022-02-03 13:18:00 99.791 kg [facility] BMI 2022-02-03 13:18:00 38.97 kg/m2 [facility] Systolic blood pressure 2022-01-27 21:05:00 136 mm[Hg] [facility] Diastolic blood pressure 2022-01-27 21:05:00 81 mm[Hg] [facility] Heart rate 2022-01-27 21:05:00 81 /min [facility] Respiratory rate 2022-01-27 21:05:00 18 /min [facility] Body height 2022-01-27 21:05:00 160 cm [facility] Body weight 2022-01-27 21:05:00 103.874 kg [facility] BMI 2022-01-27 21:05:00 40.57 kg/m2 [facility] Oxygen saturation in Arterial blood by Pulse oximetry 2022-01-27 21:05:00 97 /min [facility] Systolic blood pressure 2024-03-04 20:32:00 153 mm[Hg] [facility] Diastolic blood pressure 2024-03-04 20:32:00 105 mm[Hg] [facility] Heart rate 2024-03-04 20:32:00 62 /min [facility] Respiratory rate 2024-03-04 20:29:00 18 /min [facility] Body height 2024-03-04 20:29:00 165.1 cm [facility] Body weight 2024-03-04 20:29:00 101.606 kg [facility] BMI 2024-03-04 20:29:00 37.28 kg/m2 [facility] Body temperature 2024-02-26 20:36:00 36.28 [facility] Body height 2024-02-26 20:36:00 165.1 cm [facility] Body weight 2024-02-26 20:36:00 103.057 kg [facility] BMI 2024-02-26 20:36:00 37.81 kg/m2 [facility] Respiratory rate 2024-02-26 16:25:00 16 /min [facility] Systolic blood pressure 2024-01-25 14:09:00 144 mm[Hg] [facility] Diastolic blood pressure 2024-01-25 14:09:00 100 mm[Hg] [facility] Heart rate 2024-01-25 14:09:00 79 /min [facility] Oxygen saturation in Arterial blood by Pulse oximetry 2024-01-25 14:09:00 99 /min [facility] Procedures Procedure Date / Time Performed Performing Clinician Source CT SOFT TISSUE NECK W CONTRAST 2024-03-04 15:59:45 Marybeth Jiménez [facility] CT SOFT TISSUE NECK W CONTRAST 2024-03-04 15:59:45 Marybeth Jiménez [facility] US PELVIS COMPLETE WITH TRANSVAGINAL 2024-03-04 15:42:16 Miya Edouard [facility] US PELVIS COMPLETE WITH TRANSVAGINAL 2024-03-04 15:42:16 Miya Edouard [facility] COMP. METABOLIC PANEL ([id number]) 2024-02-23 16:58:00 Lui Post [facility] CBC WITH DIFF 2024-02-23 16:58:00 Lui Patel [facility] HEPATITIS B SURFACE ANTIBODY 2024-02-23 16:58:00 Lui Post [facility] HEPATITIS B SURFACE ANTIGEN 2024-02-23 16:58:00 Lui Post Miguel [facility] HCV ANTIBODY 2024-02-23 16:58:00 Lui Patel [facility] HBC ANTIBODY (IGM & IGG) 2024-02-23 16:58:00 Lui Das [facility] HIV 1/2 AG-AB WITH REFLEX 2024-02-23 16:58:00 Pi Lui Walker [facility] HCV ANTIBODY 2024-02-23 16:58:00 Lui Patel [facility] HIV 1/2 AG-AB WITH REFLEX 2024-02-23 16:58:00 Pi Lui Walker [facility] QUANTIFERON-TB ASSAY 2024-02-23 16:58:00 [facility] SURFACE ANTIGEN 2024-02-23 16:58:00 Lui Post [facility] HEPATITIS B SURFACE ANTIBODY 2024-02-23 16:58:00 Lui Post [facility] HBC ANTIBODY (IGM & IGG) 2024-02-23 16:58:00 [facility] COMP. METABOLIC PANEL ([id number]) 2024-02-23 16:58:00 Lui Post [facility] CBC WITH DIFF 2024-02-23 16:58:00 Lui Patel [facility] MR LUMBAR SPINE WO CONTRAST 2024-02-18 23:14:02 Javan [facility] CT MAXILLOFACIAL/MANDIBLE WO CONTRAST 2024-02-12 22:18:00 Javan [facility] CT MAXILLOFACIAL/MANDIBLE WO CONTRAST 2024-02-12 22:18:00 Javan [facility] GLYCOSYLATED HEMOGLOBIN (A1C) 2024-02-01 14:58:00 Javan [facility] LIPID PANEL ([id number])(TOTAL CHOLESTEROL, TRIGLYCERIDES, HDL) 2024-02-01 14:58:00 Javan [facility] CBC WITH DIFF 2024-02-01 14:58:00 Miya Edouard [facility] FREE T4 2024-02-01 14:58:00 Miya Edouard [facility] FREE T3 2024-02-01 14:58:00 Javan [facility] THYROID STIMULATING HORMONE 2024-02-01 14:58:00 Javan [facility] COMP. METABOLIC PANEL ([id number]) 2024-02-01 14:58:00 Javan [facility] SEDIMENTATION RATE 2024-02-01 14:58:00 Vern Edouard [facility] C-REACTIVE PROTEIN 2024-02-01 14:58:00 Vern Edouard [facility] GC & CHLAMYDIA AMPLIFIED ASSAY 2024-01-25 15:23:00 Javan [facility] VITAMIN D, 25-OH 2024-01-25 15:16:00 Javan [facility] VITAMIN D, 25-OH 2024-01-25 15:16:00 Javan [facility] EBV-MONONUCLEOSIS SCREEN 2024-01-25 15:16:00 Javan [facility] HIV 1/2 AG-AB WITH REFLEX 2024-01-25 15:16:00 Dane fletcher [facility] SYPHILIS IGG/IGM 2024-01-25 15:16:00 Javan [facility] ALLERGENS, PEANUT PANEL 2024-01-25 15:16:00 Javan [facility] URINALYSIS 2024-01-10 16:44:00 Olamide Simpson [facility] URINALYSIS 2024-01-10 16:44:00 Olamide Simpson [facility] C-REACTIVE PROTEIN 2024-01-10 16:13:00 Olamide Simpson [facility] COMP. METABOLIC PANEL ([id number]) 2024-01-10 16:13:00 Olamide Simpson [facility] CBC WITH DIFF 2024-01-10 16:13:00 Olamide Simpson [facility] ANTI-CENTROMERE B 2024-01-10 16:13:00 Olamide Simpson [facility] ANTI-SSA(RO) 2024-01-10 16:13:00 [facility] CBC WITH DIFF 2024-01-10 16:13:00 Olamide Simpson [facility] COMP. METABOLIC PANEL ([id number]) 2024-01-10 16:13:00 Olamide Simpson [facility] THYROID PEROXIDASE (TPO) AB 2024-01-10 16:13:00 Olamide Simpson [facility] ANTI-SSB(LA) 2024-01-10 16:13:00 Olamide Simpson [facility] ANTI-CENTROMERE B 2024-01-10 16:13:00 Olamide Simpson [facility] C-REACTIVE PROTEIN 2024-01-10 16:13:00 Olamide Simpson [facility] FREE T4 2023-04-05 17:14:00 Jak [facility] THYROID STIMULATING HORMONE 2023-04-05 17:14:00 Jak [facility] FREE T3 2023-04-05 17:14:00 Jak [facility] US HEAD NECK 2023-04-05 17:09:55 Jak [facility] ASSIGNMENT OF BENEFITS 2023-03-21 21:09:01 Docto r Unassigned, [place] [facility] EXTERNAL PROVIDER RECORDS 2023-01-05 05:01:00 Do ctor Unassigned, [place] [facility] C-REACTIVE PROTEIN 2023-01-04 15:47:00 Vern Edouard [facility] THYROID STIMULATING HORMONE 2023-01-04 15:47:00 Miya Edouard [facility] BASIC METABOLIC PANEL (NA, K, CL, CO2, GLUCOSE, BUN, CREATININE, CA) 2023-01-04 15:47:00 Miya Edouard [facility] SEDIMENTATION RATE 2023-01-04 15:47:00 Vern Edouard [facility] GLYCOSYLATED HEMOGLOBIN (A1C) 2023-01-04 15:47:00 Miya Edouard [facility] ANTI-NUCLEAR ANTIBODY SCREEN 2023-01-04 15:47:00 Miya Edouard [facility] URINE CULTURE 2023-01-04 15:47:00 Miya Edouard [facility] ANTI-DOUBLE STRANDED DNA 2023-01-04 15:47:00 Miya Edouard [facility] FREE T3 2023-01-04 15:47:00 Miya Edouard [facility] INSURANCE CORRESPONDENCE 2022-12-22 05:01:00 Doc tor Unassigned, [place] [facility] URINALYSIS 2022-12-01 18:38:00 Jey Perez [facility] XR CHEST 1 VW 2022-12-01 17:41:17 Jey Perez [facility] LIPASE 2022-12-01 17:15:00 Jey Perez [facility] TROPONIN I 2022-12-01 17:15:00 Jey Perez [facility] COMP. METABOLIC PANEL ([id number]) 2022-12-01 17:15:00 Jey Perez [facility] CBC WITH DIFF 2022-12-01 17:15:00 Jey Perez [facility] COVID-19 (ID NOW RAPID TESTING) 2022-12-01 17:15:00 Jey Perez [facility] MEDICATION CORRESPONDENCE 2022-11-22 05:01:00 Do ctor Unassigned, [facility] MR LUMBAR SPINE W WO CONTRAST 2022-10-12 21:23:00 Javan [facility] POCT TEST 2022-09-28 19:44:00 Tl Jolly [facility] CT STROKE ANGIOGRAM HEAD 2022-09-28 19:30:00 Audraoenste inJuliane [facility] CT STROKE ANGIOGRAM NECK 2022-09-28 19:30:00 Schoenste in, [facility] CT STROKE HEAD WO CONTRAST 2022-09-28 19:14:05 Juliane Jolly [facility] TROPONIN I 2022-09-28 18:53:00 Juliane Jolly [facility] COMP. METABOLIC PANEL ([id number]) 2022-09-28 18:53:00 Juliane Jolly [facility] CBC WITH DIFF 2022-09-28 18:53:00 Juliane Jolly [facility] PROTHROMBIN TIME / INR 2022-09-28 18:53:00 Juliane Jolly [facility] ACTIVATED PARTIAL THRMPLAS MARK 2022-09-28 18:53:00 Juliane Jolly [facility] URINALYSIS 2022-09-28 18:53:00 [facility]-BNP 2022-09-28 18:53:00 Hue Jolly ndnupur [facility] LACTIC ACID WHOLE BLOOD 2022-09-28 18:53:00 Juliane Tamayo [facility] MR CERVICAL SPINE WO CONTRAST 2022-08-25 21:43:32 Requisition, Paper [facility] CONSENT/REFUSAL FOR DIAGNOSIS AND TREATMENT 2022-08-25 21:06:28 Doctor Unassigned, [place] [facility] ASSIGNMENT OF BENEFITS 2022-08-25 21:06:18 Docto r Unassigned, [facility] [facility] MR LUMBAR SPINE WO CONTRAST 2022-06-07 22:54:45 Requisition, [facility] XR LUMBAR SPINE 4 VW 2022-06-07 21:58:44 Requisition, [facility] COMP. METABOLIC PANEL ([id number]) 2022-02-03 13:37:00 Carolina Maurice [facility] CBC WITH DIFF 2022-02-03 13:37:00 Carolina Maurice [facility] CONSENT/REFUSAL FOR DIAGNOSIS AND TREATMENT 2022-02-03 13:08:09 Doctor Unassigned, [place] [facility] BI SCREENING TOMOSYNTHESIS BILATERAL 2021-02-10 16:00:00 Miya Edouard [facility] HIGH RISK HPV-THIN PREP 2021-02-09 20:57:00 Adum, Violet Boothe [facility] LAB ONLY PAP SMEAR-LIQUID BASED 2021-02-09 20:57:00 AdumNika [facility] Encounters Start Date/Time End Date/Time Encounter Type Admission Type Attending Clinicians Care Facility Care Department Encounter ID Source 2021-03-04 15:44:30 Outpatient R ABBEY ROTHMAN [facility] DEB [id number] [facility] 2021-02-12 17:53:46 Emergency [facility] [id number] [facility] 2024-05-28 13:00:00 2024-05-28 13:00:00 Outpatient R MIYA EDOUARD [facility] [id number] [facility] 2024-04-26 11:40:00 2024-04-26 11:40:00 Outpatient R JAVAN MIYA [facility] [id number] [facility] 2024-04-24 10:00:00 2024-04-24 10:00:00 Outpatient SARAH BETH AREVALO [facility] [id number] [facility] 2024-03-01 00:00:00 2024-04-06 18:19:56 Patient Secure Miya Garrison [facility] 1.2.840.114 350.1.13.10 4.2.7.2.686 [id number] [facility] 2024-03-01 00:00:00 2024-04-06 18:19:36 [facility] 1.2.840.114 350.1.13.10 4.2.7.2.686 [id number] [facility] 2024-04-03 09:40:00 2024-04-03 09:40:00 Outpatient SARAH BETH AREVALO [facility] [id number] [facility] 2024-04-01 14:30:00 2024-04-01 14:30:00 Outpatient CHERELLE HALE [facility] [id number] [facility] 2024-03-20 09:20:00 2024-03-20 09:20:00 Outpatient SARAH BETH AREVALO [facility] [id number] [facility] 2024-03-12 09:30:00 2024-03-12 09:30:00 Outpatient R MALIK WHITE CRAIG [facility] [id number] [facility] 2024-03-12 08:15:00 2024-03-12 08:15:00 Outpatient R CANO-DAKSHA S, MARTHA CANO-DAKSHA S, MARTHA [facility] [id number] [facility] 2024-03-06 10:20:00 2024-03-06 10:20:00 Outpatient R SARAH BETH YOUNG [facility] [id number] [facility] 2024-03-04 00:00:00 2024-03-05 11:30:52 Telephone Marybeth Jiménez 1.2.840.1 73303.1.1 3.104.2.7 .3.498591 .8 [id number] [facility] 2024-03-04 08:40:36 2024-03-04 23:59:00 Hospital Encounter Marybeth Jiménez 1.2.840.1 63148.1.1 3.104.2.7 .3.442808 .8 [id number] [facility] 2024-03-04 14:30:00 2024-03-04 15:50:31 Outpatient R CHERELLE GARBER [facility] [id number] [facility] 2024-03-04 00:00:00 2024-03-04 11:39:44 Specialty Pharmacy Carina Taylor 1.2.840.1 33243.1.1 3.104.2.7 .3.582572 .8 [id number] [facility] 2024-03-04 08:39:37 2024-03-04 08:39:37 Hospital Encounter Miya Edouard 1.2.840.1 60089.1.1 3.104.2.7 .3.223079 .8 [id number] [facility] 2024-03-04 00:00:00 2024-03-04 00:00:00 Travel 1.2.840.1 67054.1.1 3.104.2.7 .3.135828 .8 1.2.840.114 350.1.13.10 4.2.7.3.698 084.8 [id number] [facility] 2024-03-02 15:55:42 2024-03-02 23:59:00 Outpatient R MIYA EDOUARD [facility] [id number] [facility] 2024-01-30 00:00:00 2024-03-02 18:20:06 Patient Secure Mschance Miya Edouard 1.2.840.1 34085.1.1 3.104.2.7 .3.119629 .8 [id number] [facility] 2024-03-01 00:00:00 2024-03-01 12:57:59 Specialty Pharmacy Jeni Serna 1.2.840.1 03574.1.1 3.104.2.7 .3.507390 .8 [id number] [facility] 2024-02-29 00:00:00 2024-02-29 11:19:17 Telephone Jeni Serna 1.2.840.1 75241.1.1 3.104.2.7 .3.765065 .8 [id number] [facility] 2024-02-27 00:00:00 2024-02-27 16:56:29 Telephone Martha Wright 1.2.840.1 53203.1.1 3.104.2.7 .3.869907 .8 [id number] [facility] 2024-02-26 15:00:00 2024-02-26 15:54:20 Office Visit Marybeth Jiménez 1.2.840.1 14224.1.1 3.104.2.7 .3.255663 .8 [id number] [facility] 2024-02-26 10:00:00 2024-02-26 11:09:16 Outpatient R LOKI HAYES [facility] [id number] [facility] 2024-02-26 10:00:00 2024-02-26 11:09:16 Office Visit Loki Hayes 1.2.840.1 28787.1.1 3.104.2.7 .3.302894 .8 [id number] [facility] 2024-02-26 00:00:00 2024-02-26 00:00:00 Travel 1.2.840.1 49817.1.1 3.104.2.7 .3.391928 .8 1.2.840.114 350.1.13.10 4.2.7.3.698 084.8 [id number] [facility] 2024-02-23 11:00:00 2024-02-23 11:15:00 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 Clare Hernández Janice May Only [facility] Test 1.2.840.1 94675.1.1 3.104.2.7 .3.334153 .8 [id number] [facility] 2024-02-23 10:15:00 2024-02-23 10:46:31 Outpatient JENNIE GARDNER [facility] [id number] [facility] 2024-02-23 10:15:00 2024-02-23 10:46:31 Office Visit Clare Hernández Janice May Pinto Cuberos, Juan Miguel 1.2.840.1 20673.1.1 3.104.2.7 .3.066793 .8 [id number] [facility] 2024-02-23 00:00:00 2024-02-23 00:00:00 Travel 1.2.840.1 94542.1.1 3.104.2.7 .3.160878 .8 1.2.840.114 350.1.13.10 4.2.7.3.698 084.8 [id number] [facility] 2024-02-22 00:00:00 2024-02-22 10:23:28 Patient Secure Msg NabilaashleyMiya gonzales 1.2.840.1 49980.1.1 3.104.2.7 .3.612651 .8 [id number] [facility] 2024-02-20 00:00:00 2024-02-22 08:15:19 Patient Secure g NabilaashleyMiya gonzales 1.2.840.1 52436.1.1 3.104.2.7 .3.724540 .8 [id number] [facility] 2024-02-21 00:00:00 2024-02-21 15:04:37 Refill Miya Edouard 1.2.840.1 03897.1.1 3.104.2.7 .3.693135 .8 [id number] [facility] 2024-02-21 00:00:00 2024-02-21 15:00:03 Patient Secure Miya Edouard 1.2.840.1 11768.1.1 3.104.2.7 .3.309995 .8 [id number] [facility] 2024-02-21 00:00:00 2024-02-21 00:00:00 Refill Miya Edouard 1.2.840.1 87608.1.1 3.104.2.7 .3.651361 .8 [id number] [facility] 2024-02-13 00:00:00 2024-02-19 10:14:37 Patient Secure NabilajillMiya hoang 1.2.840.1 43396.1.1 3.104.2.7 .3.260036 .8 [id number] [facility] 2024-02-18 15:34:29 2024-02-18 23:59:00 Hospital Encounter Miya Edouard 1.2.840.1 22548.1.1 3.104.2.7 .3.335260 .8 [id number] [facility] 2024-02-18 16:00:00 2024-02-18 16:00:00 Outpatient R MIYA EDOUARD [facility] [id number] [facility] 2024-02-14 00:00:00 2024-02-14 16:47:35 Telephone Sue Childs 1.2.840.1 15082.1.1 3.104.2.7 .3.213205 .8 [id number] [facility] 2024-02-12 16:33:32 2024-02-12 23:59:00 Outpatient MIYA SANTANA [facility] [id number] [facility] 2024-02-12 16:20:00 2024-02-12 23:59:00 Hospital Encounter Miya Edouard 1.2.840.1 73455.1.1 3.104.2.7 .3.434658 .8 [id number] [facility] 2024-02-09 00:00:00 2024-02-12 09:13:26 Telephone Miya Edouard 1.2.840.1 99303.1.1 3.104.2.7 .3.330107 .8 [id number] [facility] 2024-02-01 00:00:00 2024-02-06 09:43:57 Telephone Olamide Simpson 1.2.840.1 26731.1.1 3.104.2.7 .3.858314 .8 [id number] [facility] 2024-02-06 00:00:00 2024-02-06 00:00:00 Outpatient R MIYA EDOUARD [facility] [id number] [facility] 2024-01-31 00:00:00 2024-02-05 08:14:36 Patient Secure Msg Doctor Unassigned, [place] 1.2.840.1 04335.1.1 3.104.2.7 .3.468649 .8 [id number] [facility] 2024-01-30 00:00:00 2024-02-05 08:14:10 Patient Secure Msg JavanMiya 1.2.840.1 78816.1.1 3.104.2.7 .3.479220 .8 [id number] [facility] 2024-02-05 00:00:00 2024-02-05 00:00:00 Outpatient R MIYA EDOUARD [facility] [id number] [facility] 2024-02-01 10:00:00 2024-02-01 10:26:05 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 Miya Edouard 2, [facility] 1.2.840.1 74905.1.1 3.104.2.7 .3.875431 .8 [id number] [facility] 2024-02-01 10:00:00 2024-02-01 10:00:00 Outpatient R MIYA EDOUARD [facility] [id number] [facility] 2024-01-30 00:00:00 2024-01-31 09:41:11 Telephone Olamide Simpson 1.2.840.1 98487.1.1 3.104.2.7 .3.975030 .8 [id number] [facility] 2024-01-31 00:00:00 2024-01-31 00:00:00 Outpatient R MIYA EDOUARD [facility] [id number] [facility] 2024-01-30 00:00:00 2024-01-30 16:37:26 Refill Miya Edouard 1.2.840.1 99484.1.1 3.104.2.7 .3.608987 .8 [id number] [facility] 2024-01-30 00:00:00 2024-01-30 16:37:21 Refill Miya Edouard 1.2.840.1 55532.1.1 3.104.2.7 .3.413309 .8 [id number] [facility] 2024-01-30 00:00:00 2024-01-30 16:24:38 Telephone Miya Edouard 1.2.840.1 81580.1.1 3.104.2.7 .3.819611 .8 [id number] [facility] 2024-01-30 00:00:00 2024-01-30 11:33:55 Patient Secure Msg Miya Edouard 1.2.840.1 28169.1.1 3.104.2.7 .3.671334 .8 [id number] [facility] 2024-01-30 00:00:00 2024-01-30 11:06:55 Letter (Out) 1.2.840.1 29309.1.1 3.104.2.7 .3.461510 .8 [id number] [facility] 2024-01-26 00:00:00 2024-01-29 12:20:33 Telephone Miya Edouard 1.2.840.1 62130.1.1 3.104.2.7 .3.606327 .8 [id number] [facility] 2024-01-29 00:00:00 2024-01-29 00:00:00 Outpatient R MIYA EDOUARD [facility] [id number] [facility] 2024-01-25 10:30:00 2024-01-25 10:56:52 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 Miya Edouard 2, [facility] 1.2.840.1 74604.1.1 3.104.2.7 .3.466137 .8 [id number] [facility] 2024-01-25 09:00:00 2024-01-25 10:00:58 Outpatient R MIYA EDOUARD [facility] [id number] [facility] 2024-01-25 09:00:00 2024-01-25 10:00:58 Office Visit NabilajillbennieMiya gonzales 1.2.840.1 23948.1.1 3.104.2.7 .3.835258 .8 [id number] [facility] 2024-01-25 00:00:00 2024-01-25 00:00:00 Travel 1.2.840.1 76867.1.1 3.104.2.7 .3.216778 .8 1.2.840.114 350.1.13.10 4.2.7.3.698 084.8 [id number] [facility] 2024-01-11 00:00:00 2024-01-11 20:57:23 Refill JavanMiya 1.2.840.1 45417.1.1 3.104.2.7 .3.151489 .8 [id number] [facility] 2024-01-10 11:15:00 2024-01-10 11:30:00 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 Olamide Simpson [facility] 1.2.840.1 68067.1.1 3.104.2.7 .3.107894 .8 [id number] [facility] 2024-01-10 10:15:00 2024-01-10 10:59:59 Outpatient R OLAMIDE SIMPSON LAURA [facility] [id number] [facility] 2024-01-10 10:15:00 2024-01-10 10:59:59 Office Visit Olamide Simpson 1.2.840.1 27827.1.1 3.104.2.7 .3.879191 .8 [id number] [facility] 2024-01-10 00:00:00 2024-01-10 00:00:00 Travel 1.2.840.1 56522.1.1 3.104.2.7 .3.471436 .8 1.2.840.114 350.1.13.10 4.2.7.3.698 084.8 [id number] [facility] 2024-01-05 08:40:00 2024-01-05 08:40:00 Outpatient R MIYA EDOUARD [facility] [id number] [facility] 2024-01-03 09:40:00 2024-01-03 09:40:00 Outpatient R MIYA EDOUARD [facility] [id number] [facility] 2023-12-29 00:00:00 2023-12-29 11:29:00 Miya Fisher 1.2.840.1 73897.1.1 3.104.2.7 .3.974644 .8 [id number] [facility] 2023-12-22 00:00:00 2023-12-22 10:59:17 Miya Fisher 1.2.840.1 75276.1.1 3.104.2.7 .3.021520 .8 [id number] [facility] 2023-12-03 00:00:00 2023-12-04 19:32:03 Miya Fisher 1.2.840.1 98857.1.1 3.104.2.7 .3.665042 .8 [id number] [facility] 2023-11-24 00:00:00 2023-11-24 11:05:58 Miya Fisher [facility] PROF[facility] NAL BUILD[facility] 1.2.840.114 350.1.13.10 4.2.7.2.686 [id number] 044 [id number] [facility] 2023-11-09 00:00:00 2023-11-09 12:39:20 Miya Fisher [facility] PROFESSIO NAL BUILDING 1.2.840.114 350.1.13.10 4.2.7.2.686 [id number] 044 [id number] [facility] 2023-10-31 15:40:00 2023-10-31 15:40:00 Outpatient R MIYA EDOUARD [facility] [id number] [facility] 2023-10-14 00:00:00 2023-10-16 13:37:25 Refill NabilajillMiya hoang [facility] BUILDING 1.2.840.114 350.1.13.10 4.2.7.2.686 [id number] 059 [id number] [facility] 2023-10-12 13:00:00 2023-10-12 13:00:00 Outpatient RAFFI HARRISON [facility] [id number] [facility] 2023-09-12 00:00:00 2023-09-25 13:31:56 Refill Eva Abreu [facility] BUILDING 1.2.840.114 350.1.13.10 4.2.7.2.686 [id number] 059 [id number] [facility] 2023-09-18 00:00:00 2023-09-19 12:27:52 Miya Fisher [facility] BUILDING 1.2.840.114 350.1.13.10 4.2.7.2.686 [id number] 044 [id number] [facility] 2023-09-06 00:00:00 2023-09-06 14:18:38 Refill Miya Edouard [facility] BUILDING 1.2.840.114 350.1.13.10 4.2.7.2.686 [id number] 044 [id number] [facility] 2023-08-22 15:30:00 2023-08-22 15:30:00 Outpatient R GELA BENEDICT [facility] [id number] [facility] 2023-08-22 15:30:00 2023-08-22 15:30:00 Outpatient R VERONAPATRIZIA SANTOS [facility] [id number] [facility] 2023-07-31 00:00:00 2023-07-31 00:00:00 Octavia Campa [facility] 1.840.114 350.1.13.10 4.2.7.2.686 [id number] 044 [id number] [facility] 2023-07-31 00:00:00 2023-07-31 00:00:00 [facility] 1.0.114 350.1.13.10 4.2.7.2.686 [id number] 044 [id number] [facility] 2023-07-12 15:00:00 2023-07-12 15:00:00 Outpatient R MIYA EDOUARD [facility] [id number] [facility] 2023-06-29 00:00:00 2023-06-29 00:00:00 Neo [facility] 1.0.114 350.1.13.10 4.2.7.2.686 [id number] 044 [id number] [facility] 2023-06-17 00:00:00 2023-06-17 00:00:00 [facility] 1.840.114 350.1.13.10 4.2.7.2.686 [id number] 044 [id number] [facility] 2023-05-29 00:00:00 2023-05-29 00:00:00 Octavia Campa [facility] 1.840.114 350.1.13.10 4.2.7.2.686 [id number] 044 [id number] [facility] 2023-05-29 00:00:00 2023-05-29 00:00:00 Patient Secure Msg Doctor Unassigned, [place] [facility] 1.114 350.1.13.10 4.2.7.2.686 [id number] 804 [id number] [facility] 2023-04-30 00:00:00 2023-04-30 00:00:00 Refill Miya Edouard [facility] BUILD[facility] 1.114 350.1.13.10 4.2.7.2.686 [id number] 044 [id number] [facility] 2023-04-20 00:00:00 2023-04-20 00:00:00 Patient Secure Msg Jak [facility] 1..114 350.1.13.10 4.2.7.2.686 [id number] [facility] 2023-04-19 09:40:00 2023-04-19 09:40:00 Outpatient R MIYA EDOUARD [facility] [id number] [facility] 2023-04-05 10:32:54 2023-04-05 23:59:00 Outpatient R JAK [facility] [id number] [facility] 2023-04-05 10:32:54 2023-04-05 23:59:00 [facility] 1.114 350.1.13.10 4.2.7.2.686 [id number] [id number] [facility] 2023-04-05 11:30:00 2023-04-05 11:45:00 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 Pob, Adc [facility] 1.84.114 350.1.13.10 4.2.7.2.686 [id number] [facility] 2023-04-03 00:00:00 2023-04-03 00:00:00 Refill NabilajillMiya hoang [facility] BUILDING 1.2840.114 350.1.13.10 4.2.7.2.686 [id number] 044 [id number] [facility] 2023-03-30 00:00:00 2023-03-30 00:00:00 Refill NabilajillMiya hoang [facility] BUILDING 1.2840.114 350.1.13.10 4.2.7.2.686 [id number] 044 [id number] [facility] 2023-03-21 15:30:00 2023-03-21 16:45:47 Outpatient R JAK [facility] [id number] [facility] 2023-03-21 15:30:00 2023-03-21 16:45:47 Office Visit Gela Benedict [facility] 1.2840.114 350.1.13.10 4.2.7.2.686 [id number] [facility] 2023-03-21 00:00:00 2023-03-21 00:00:00 Orders Only Doctor Unassigned, [place] [facility] .84.114 350.1.13.10 4.2.7.2.686 [id number] 009 [id number] [facility] 2023-01-24 00:00:00 2023-01-24 00:00:00 Patient Secure Msg Doctor Unassigned, [place] [facility] 1.2840.114 350.1.13.10 4.2.7.2.686 [id number] 044 [id number] [facility] 2023-01-13 00:00:00 2023-01-13 00:00:00 Refill Miya Edouard [facility] BUILDING 1.2.840.114 350.1.13.10 4.2.7.2.686 [id number] 044 [id number] [facility] 2023-01-11 00:00:00 2023-01-11 00:00:00 Patient Secure Msg Doctor Unassigned, [place] [facility] 1.2.840.114 350.1.13.10 4.2.7.2.686 [id number] 019 [id number] [facility] 2023-01-11 00:00:00 2023-01-11 00:00:00 Patient Secure Msg Doctor Unassigned, [place] [facility] 1.2.840.114 350.1.13.10 4.2.7.2.686 [id number] 019 [id number] [facility] 2023-01-05 00:00:00 2023-01-05 00:00:00 Orders Only Doctor Unassigned, [place] [facility] 1.2.840.114 350.1.13.10 4.2.7.2.686 [id number] [id number] [facility] 2023-01-04 11:30:00 2023-01-04 11:30:00 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 2, Adc Lab Miya Edouard [facility] BUILDING 1.2840.114 350.1.13.10 4.2.7.2.686 [id number] [facility] 2023-01-04 09:40:00 2023-01-04 10:36:37 Outpatient R MIYA EDOUARD [facility] [id number] [facility] 2023-01-04 09:40:00 2023-01-04 10:36:37 Office Visit Miya Edouard [facility] 1.2.840.114 350.1.13.10 4.2.7.2.686 [id number] 044 [id number] [facility] 2023-01-03 14:20:00 2023-01-03 14:20:00 Outpatient Jhonaa ABREUROLANDBHUPINDERTAYLOR [facility] [id number] [facility] 2022-12-29 00:00:00 2022-12-29 00:00:00 Refill Miya Edourad [facility] 1.2.840.114 350.1.13.10 4.2.7.2.686 [id number] 044 [id number] [facility] 2022-12-29 00:00:00 2022-12-29 00:00:00 Telephone Miya Edouard [facility] 1.2.840.114 350.1.13.10 4.2.7.2.686 [id number] 044 [id number] [facility] 2022-12-23 06:40:00 2022-12-23 11:30:00 Outpatient SHEREE BLOOD [facility] DEB [id number] [facility] 2022-12-22 00:00:00 2022-12-22 00:00:00 Orders Only Doctor Unassigned, [place] [facility] 1.2.840.114 350.1.13.10 4.2.7.2.686 [id number] [id number] [facility] 2022-12-20 00:00:00 2022-12-20 00:00:00 Refill Javan [facility] 1.2.840.114 350.1.13.10 4.2.7.2.686 [id number] 044 [id number] [facility] 2022-12-06 14:00:00 2022-12-06 14:00:00 Outpatient Jhoana ABREU EVA [facility] [id number] [facility] 2022-12-01 12:00:00 2022-12-01 14:36:00 Emergency X JEY PEREZ [facility] [id number] [facility] 2022-12-01 12:00:00 2022-12-01 14:36:00 Emergency Jey Perez [facility] 1.2.840.114 350.1.13.10 4.2.7.2.686 [id number] 084 [id number] [facility] 2022-11-28 00:00:00 2022-11-28 00:00:00 Telephone Miya Edouard [facility] 1.2.840.114 350.1.13.10 4.2.7.2.686 [id number] 044 [id number] [facility] 2022-11-22 00:00:00 2022-11-22 00:00:00 Orders Only Doctor Unassigned, [place] [facility] 1.2.840.114 350.1.13.10 4.2.7.2.686 [id number] 009 [id number] [facility] 2022-11-20 00:00:00 2022-11-20 00:00:00 Refill Miya Edouard [facility] 1.2.840.114 350.1.13.10 4.2.7.2.686 [id number] 044 [id number] [facility] 2022-11-17 00:00:00 2022-11-17 00:00:00 Telephone Miya Edouard [facility] 1.2.840.114 350.1.13.10 4.2.7.2.686 [id number] 044 [id number] [facility] 2022-11-11 00:00:00 2022-11-11 00:00:00 Refill Miya Edouard [facility] 1.2.840.114 350.1.13.10 4.2.7.2.686 [id number] 044 [id number] [facility] 2022-11-09 10:40:00 2022-11-09 10:40:00 Outpatient EVA JACOBS [facility] [id number] [facility] 2022-11-08 00:00:00 2022-11-08 00:00:00 Patient Secure Msg Edouard Miya [facility] PROFESSIO NAL BUILDING 1..840.114 350.1.13.10 4.2.7.2.686 [id number] 044 [id number] [facility] 2022-10-21 11:00:00 2022-10-21 15:17:15 Outpatient R SARMAD PITT HOWARD [facility] [id number] [facility] 2022-10-21 11:00:00 2022-10-21 15:17:15 Office Visit Sarmad Pitt [facility] 1..840.114 350.1.13.10 4.2.7.2.686 [id number] 092 [id number] [facility] 2022-10-21 00:00:00 2022-10-21 00:00:00 Refdallas NabilaashleyMiya gonzales [facility] BUILDING 1..840.114 350.1.13.10 4.2.7.2.686 [id number] 044 [id number] [facility] 2022-10-13 14:40:00 2022-10-13 15:44:42 Outpatient R BRADY EVA [facility] [id number] [facility] 2022-10-13 14:40:00 2022-10-13 15:44:42 [facility] 1..840.114 350.1.13.10 4.2.7.2.686 [id number] 059 [id number] [facility] 2022-10-12 15:08:01 2022-10-12 23:59:00 Outpatient R MIYA EDOUARD [facility] [id number] [facility] 2022-10-12 15:08:01 2022-10-12 23:59:00 Hospital Encounter Miya Edouard [facility] 1.2.840.114 350.1.13.10 4.2.7.2.686 [id number] [facility] 2022-10-06 00:00:00 2022-10-06 00:00:00 Refill Miya Edouard [facility] BUILDING 1.2.840.114 350.1.13.10 4.2.7.2.686 [id number] 044 [id number] [facility] 2022-10-05 00:00:00 2022-10-05 00:00:00 Letter (Out) Neurology [facility] BUILDING 1.2840.114 350.1.13.10 4.2.7.2.686 [id number] 092 [id number] [facility] 2022-10-04 16:00:00 2022-10-04 16:40:00 Office Visit Miya Edouard [facility] BUILDING 1.2840.114 350.1.13.10 4.2.7.2.686 [id number] 044 [id number] [facility] 2022-10-04 16:00:00 2022-10-04 16:00:00 Outpatient R MIYA EDOUARD [facility] [id number] [facility] 2022-09-30 00:00:00 2022-09-30 00:00:00 Patient Secure Msg Doctor Unassigned, [place] [facility] 1.2840.114 350.1.13.10 4.2.7.2.686 [id number] 019 [id number] [facility] 2022-09-29 00:00:00 2022-09-29 00:00:00 Patient Secure Msg Doctor Unassigned, [place] [facility] 1.2840.114 350.1.13.10 4.2.7.2.686 [id number] 019 [id number] [facility] 2022-09-28 12:47:00 2022-09-28 16:58:00 Emergency X JULIANE JOLLY [facility] ERT [id number] [facility] 2022-09-28 12:47:00 2022-09-28 16:58:00 Emergency Juliane Jolly [facility] 1.2.840.114 350.1.13.10 4.2.7.2.686 [id number] 084 [id number] [facility] 2022-09-27 00:00:00 2022-09-27 00:00:00 [facility] 1.2.840.114 350.1.13.10 4.2.7.2.686 [id number] 044 [id number] [facility] 2022-09-25 00:00:00 2022-09-25 00:00:00 Refill [facility] 1.2.840.114 350.1.13.10 4.2.7.2.686 [id number] 044 [id number] [facility] 2022-09-18 00:00:00 2022-09-18 00:00:00 Refill [facility] 1.2.840.114 350.1.13.10 4.2.7.2.686 [id number] 044 [id number] [facility] 2022-09-16 00:00:00 2022-09-16 00:00:00 [facility] 1.2.840.114 350.1.13.10 4.2.7.2.686 [id number] 044 [id number] [facility] 2022-08-25 16:09:30 2022-08-25 23:59:00 Outpatient R RADIOLOGY [facility] [id number] [facility] 2022-08-25 16:09:30 2022-08-25 23:59:00 Hospital Encounter Radiology [facility] 1.2.840.114 350.1.13.10 4.2.7.2.686 [id number] 804 [id number] [facility] 2022-08-25 16:00:00 2022-08-25 16:08:00 Hospital Encounter Radiology [facility] 1.2.840.114 350.1.13.10 4.2.7.2.686 [id number] 807 [id number] [facility] 2022-08-25 15:45:00 2022-08-25 15:59:00 Hospital Encounter Radiology [facility] 1.2.840.114 350.1.13.10 4.2.7.2.686 [id number] 807 [id number] [facility] 2022-08-25 00:00:00 2022-08-25 00:00:00 Orders Only Doctor Unassigned, [place] [facility] 1.2.840.114 350.1.13.10 4.2.7.2.686 [id number] [id number] [facility] 2022-08-24 00:00:00 2022-08-24 00:00:00 Miya Fisher [facility] PROFESSIO [facility] BUILDING 1.2.840.114 350.1.13.10 4.2.7.2.686 [id number] 044 [id number] [facility] 2022-08-17 00:00:00 2022-08-17 00:00:00 Miya Fisher [facility] PROFESSIO NAL BUILDING 1.2.840.114 350.1.13.10 4.2.7.2.686 [id number] 044 [id number] [facility] 2022-07-21 00:00:00 2022-07-21 00:00:00 Gagedallas Miya Edouard [facility] PROFESSIO [facility] BUILDING 1.2.840.114 350.1.13.10 4.2.7.2.686 [id number] 044 [id number] [facility] 2022-07-07 00:00:00 2022-07-07 00:00:00 Refill Octavia Reid [facility] 1.20.114 350.1.13.10 4.2.7.2.686 [id number] 044 [id number] [facility] 2022-06-24 00:00:00 2022-06-24 00:00:00 Gagedallas ColemanbennieMiya gonzales [facility] 1.840.114 350.1.13.10 4.2.7.2.686 [id number] 044 [id number] [facility] 2022-06-23 00:00:00 2022-06-23 00:00:00 Neo Adkinsjillnatalya Miya [facility] 1.840.114 350.1.13.10 4.2.7.2.686 [id number] 044 [id number] [facility] 2022-06-21 16:20:00 2022-06-21 16:20:00 Outpatient MIYA SANTANA [facility] [id number] [facility] 2022-06-14 16:00:00 2022-06-14 16:00:00 Outpatient ABBEY BALDWIN [facility] [id number] [facility] 2022-06-12 00:00:00 2022-06-12 00:00:00 Octavia Campa [facility]PEC [facility] 1..114 350.1.13.10 4.2.7.2.686 [id number] 044 [id number] [facility] 2022-06-09 00:00:00 2022-06-09 00:00:00 Refill Miya Edouard [facility] 1.2.840.114 350.1.13.10 4.2.7.2.686 [id number] 044 [id number] [facility] 2022-06-07 15:44:21 2022-06-07 23:59:00 Hospital Encounter Radiology [facility] 1.2.840.114 350.1.13.10 4.2.7.2.686 [id number] 807 [id number] [facility] 2022-06-07 15:43:47 2022-06-07 15:43:47 Outpatient R RADIOLOGY [facility] [id number] [facility] 2022-06-07 15:43:47 2022-06-07 15:43:47 Hospital Encounter Radiology [facility] 1.2.840.114 350.1.13.10 4.2.7.2.686 [id number] 804 [id number] [facility] 2022-06-03 14:00:00 2022-06-03 14:29:10 Outpatient R JAVAN MIYA [facility] [id number] [facility] 2022-06-03 14:00:00 2022-06-03 14:29:10 Office Visit JavanMiya [facility] 1.2.840.114 350.1.13.10 4.2.7.2.686 [id number] 044 [id number] [facility] 2022-05-28 00:00:00 2022-05-28 00:00:00 Refill Miya Edouard [facility] 1.2.840.114 350.1.13.10 4.2.7.2.686 [id number] 044 [id number] [facility] 2022-05-24 16:00:00 2022-05-24 16:00:00 Outpatient R ROTHMAN, ABBEY [facility] [id number] [facility] 2022-05-12 15:40:00 2022-05-12 15:40:00 Outpatient Jhoana NABILAMIYA HUDSON [facility] [id number] [facility] 2022-05-12 00:00:00 2022-05-12 00:00:00 Telephone NabilajillnatalyaMiya [facility] 1.2.840.114 350.1.13.10 4.2.7.2.686 [id number] 044 [id number] [facility] 2022-05-12 00:00:00 2022-05-12 00:00:[address] [facility] 1.2840.114 350.1.13.10 4.2.7.2.686 [id number] 044 [id number] [facility] 2022-05-12 00:00:00 2022-05-12 00:00:00 Patient [facility] 1.2.840.114 350.1.13.10 4.2.7.2.686 [id number] 044 [id number] [facility] 2022-04-21 15:45:00 2022-04-21 15:45:00 Outpatient ABBEY BALDWIN [facility] [id number] [facility] 2022-04-13 00:00:00 2022-04-13 00:00:00 [facility] 1.2.840.114 350.1.13.10 4.2.7.2.686 [id number] 044 [id number] [facility] 2022-03-30 00:00:00 2022-03-30 00:00:00 Refill [facility] 1.2.840.114 350.1.13.10 4.2.7.2.686 [id number] 044 [id number] [facility] 2022-02-18 00:00:00 2022-02-18 00:00:00 Outpatient R MIYA EDOUARD [facility] [id number] [facility] 2022-02-17 00:00:00 2022-02-17 00:00:00 Telephone NabilajillMiya hoang [facility] 1.0.114 350.1.13.10 4.2.7.2.686 [id number] [facility] 2022-02-10 12:54:03 2022-02-10 23:59:00 Outpatient R JAVAN MIYA [facility] [id number] [facility] 2022-02-10 12:54:03 2022-02-10 23:59:00 Hospital Encounter Javan Miya [facility] 1.840.114 350.1.13.10 4.2.7.2.686 [id number] [id number] [facility] 2022-02-04 00:00:00 2022-02-04 00:00:00 Patient Secure Msg Doctor Unassigned, [place] [facility] 1.84.114 350.1.13.10 4.2.7.2.686 [id number] [facility] 2022-02-03 08:19:00 2022-02-03 09:38:00 Emergency X CAROLINA MAURICE [facility] ERT [id number] [facility] 2022-02-03 08:19:00 2022-02-03 09:38:00 Emergency Carolina Maurice [facility] 1.840.114 350.1.13.10 4.2.7.2.686 [id number] [id number] [facility] 2022-02-02 00:00:00 2022-02-02 00:00:00 Refill Miya [facility]ard [facility] 1.2.840.114 350.1.13.10 4.2.7.2.686 [id number] 044 [id number] [facility] 2022-01-27 16:00:00 2022-01-27 17:05:13 Outpatient R MIYA EDOUARD [facility] [id number] [facility] 2022-01-27 16:00:00 2022-01-27 17:05:13 Office Visit Miya Edouard [facility] BUILDING 1.2.840.114 350.1.13.10 4.2.7.2.686 [id number] 044 [id number] [facility] 2022-01-26 07:45:00 2022-01-26 08:00:00 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 Pob, Adc [facility] Main [facility] BUILDING 1.2.840.114 350.1.13.10 4.2.7.2.686 [id number] [facility] 2022-01-26 07:45:00 2022-01-26 07:45:00 Outpatient R MIYA EDOUARD [facility] [id number] [facility] 2022-01-12 00:00:00 2022-01-12 00:00:00 Telephone Miya Edouard [facility] BUILD[facility] 1.2.840.114 350.1.13.10 4.2.7.2.686 [id number] 044 [id number] [facility] 2022-01-03 00:00:00 2022-01-03 00:00:00 Telephone Miya Edouard [facility] BUILD[facility] 1.2.840.114 350.1.13.10 4.2.7.2.686 [id number] [id number] [facility] 2021-12-30 00:00:00 2021-12-30 00:00:00 [facility] 1.2.840.114 350.1.13.10 4.2.7.2.686 [id number] 044 [id number] [facility] 2021-12-29 00:00:00 2021-12-29 00:00:00 Telephone Miya Edouard [facility] BUILD[facility] 1.2.840.114 350.1.13.10 4.2.7.2.686 [id number] [id number] [facility] 2021-12-24 00:00:00 2021-12-24 00:00:00 Refill Miya Edouard [facility] 1.2.840.114 350.1.13.10 4.2.7.2.686 [id number] [id number] [facility] 2021-12-24 00:00:00 2021-12-24 00:00:00 Telephone Miya Edouard [facility] 1.2.840.114 350.1.13.10 4.2.7.2.686 [id number] 044 [id number] [facility] 2021-12-23 16:00:00 2021-12-23 16:43:06 Outpatient R MIYA EDOUARD [facility] [id number] [facility] 2021-12-23 16:00:00 2021-12-23 16:43:06 Office Visit NabilajillbennieMiya gonzales [facility] 1.2.840.114 350.1.13.10 4.2.7.2.686 [id number] [id number] [facility] 2021-12-23 16:00:00 2021-12-23 16:00:00 Outpatient R MIYA EDOUARD [facility] [id number] [facility] 2021-12-23 00:00:00 2021-12-23 00:00:00 Telephone Miya Edouard [facility] 1.2.840.114 350.1.13.10 4.2.7.2.686 [id number] 044 [id number] [facility] 2021-12-19 00:00:00 2021-12-19 00:00:00 Refill Miya Edouard [facility] 1.2.840.114 350.1.13.10 4.2.7.2.686 [id number] [id number] [facility] 2021-12-17 00:00:00 2021-12-17 00:00:00 Patient Secure Msg Doctor Unassigned, [place] [facility] 1.2.840.114 350.1.13.10 4.2.7.2.686 [id number] [id number] [facility] 2021-12-09 00:00:00 2021-12-09 00:00:00 Telephone Miya Edouard [facility] 1.2.840.114 350.1.13.10 4.2.7.2.686 [id number] 044 [id number] [facility] 2021-12-08 15:40:00 2021-12-08 16:27:17 Outpatient R MIYA EDOUARD [facility] [id number] [facility] 2021-12-08 15:40:00 2021-12-08 16:27:17 Telemedici ne Visit Miya Edouard [facility] 1.2.840.114 350.1.13.10 4.2.7.2.686 [id number] [id number] [facility] 2021-12-06 00:00:00 2021-12-06 00:00:00 Patient Secure Msg Miya Edouard [facility] 1.2840.114 350.1.13.10 4.2.7.2.686 [id number] [id number] [facility] 2021-12-03 07:45:00 2021-12-03 08:00:00 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 Pob, Jimmy Lab Main Miya Edouard [facility] BUILDING 1.2840.114 350.1.13.10 4.2.7.2.686 [id number] [facility] 2021-12-03 07:45:00 2021-12-03 07:45:00 Outpatient R MIYA EDOUARD [facility] [id number] [facility] 2021-12-03 00:00:00 2021-12-03 00:00:00 Orders Only Doctor Unassigned, [place] [facility] 1.0.114 350.1.13.10 4.2.7.2.686 [id number] [facility] 2021-11-26 00:00:00 2021-11-26 00:00:00 RefNathaly Ramsey [facility] BUILDING 1..114 350.1.13.10 4.2.7.2.686 [id number] 044 [id number] [facility] 2021-11-19 00:00:00 2021-11-19 00:00:00 RefMiya Delgado [facility] BUILDING 1.2.114 350.1.13.10 4.2.7.2.686 [id number] 044 [id number] [facility] 2021-10-28 14:00:00 2021-10-28 14:15:00 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 Only, Ang Chary Hernandez [facility] 1.0.114 350.1.13.10 4.2.7.2.686 [id number] [facility] 2021-10-28 14:00:00 2021-10-28 14:00:00 Outpatient R CHARY MARIE [facility] [id number] [facility] 2021-10-24 09:30:00 2021-10-24 09:45:00 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 Only, Ang Db Test [facility] 1.2.840.114 350.1.13.10 4.2.7.2.686 [id number] [facility] 2021-10-24 09:30:00 2021-10-24 09:28:17 Outpatient R CHARY MARIE [facility] [id number] [facility] 2021-10-22 00:00:00 2021-10-22 00:00:00 Patient Secure Msg Javan [facility] BUILDING 1.2.840.114 350.1.13.10 4.2.7.2.686 [id number] 044 [id number] [facility] 2021-10-05 00:00:00 2021-10-05 00:00:00 Telephone Javan Miya [facility] BUILDING 1.2.840.114 350.1.13.10 4.2.7.2.686 [id number] 044 [id number] [facility] 2021-10-01 16:30:00 2021-10-01 17:17:32 Outpatient R NATHALY RICHTER [facility] [id number] [facility] 2021-10-01 16:30:00 2021-10-01 17:17:32 Office Visit Nathaly Richter [facility] BUILDING 1.2.840.114 350.1.13.10 4.2.7.2.686 [id number] 044 [id number] [facility] 2021-10-01 00:00:00 2021-10-01 00:00:00 Refill Miya Edouard [facility] PROF[facility] BUILDING 1.2.840.114 350.1.13.10 4.2.7.2.686 [id number] 044 [id number] [facility] 2021-09-28 00:00:00 2021-09-28 00:00:00 [facility] 1.2.840.114 350.1.13.10 4.2.7.2.686 [id number] 044 [id number] [facility] 2021-09-25 00:00:00 2021-09-25 00:00:00 Refill ColemanbennieMiya gonzales [facility] BUILDING 1.2.840.114 350.1.13.10 4.2.7.2.686 [id number] 044 [id number] [facility] 2021-09-24 00:00:00 2021-09-24 00:00:00 Refill Miya Edouard [facility] BUILDING 1.2.840.114 350.1.13.10 4.2.7.2.686 [id number] 044 [id number] [facility] 2021-08-10 15:40:00 2021-08-10 15:40:00 Outpatient R MIYA EDOUARD [facility] [id number] [facility] 2021-07-24 00:00:00 2021-07-24 00:00:00 Refill Colemannatalya Miya [facility] BUILDING 1.2.840.114 350.1.13.10 4.2.7.2.686 [id number] 044 [id number] [facility] 2021-07-23 00:00:00 2021-07-23 00:00:00 Refill ColemannatalyaMiya [facility] BUILDING 1.2.840.114 350.1.13.10 4.2.7.2.686 [id number] 044 [id number] [facility] 2021-06-18 00:00:00 2021-06-18 00:00:00 Telephone Miya Edouard [facility] [place] PROFBETHANY NAL BUILDING 1.2.840.114 350.1.13.10 4.2.7.2.686 [id number] [facility] 2021-06-14 00:00:00 2021-06-14 00:00:00 Telephone Miya Edouard [facility] [place] [facility] BUILDING 1.2.840.114 350.1.13.10 4.2.7.2.686 [id number] 044 [id number] [facility] 2021-06-10 00:00:00 2021-06-10 00:00:00 Telephone Miya Edouard [facility] BUILDING 1.2.840.114 350.1.13.10 4.2.7.2.686 [id number] 044 [id number] [facility] 2021-06-08 00:00:00 2021-06-08 00:00:00 Telephone [facility] BU[facility] 1.2.840.114 350.1.13.10 4.2.7.2.686 [id number] 044 [id number] [facility] 2021-05-31 00:00:00 2021-05-31 00:00:00 Telephone Miya Edouard [facility] BUILDING 1.2.840.114 350.1.13.10 4.2.7.2.686 [id number] 044 [id number] [facility] 2021-05-27 00:00:00 2021-05-27 00:00:00 Refill Miya Edouard [facility] BUILDING 1.2.840.114 350.1.13.10 4.2.7.2.686 [id number] 044 [id number] [facility] 2021-05-27 00:00:00 2021-05-27 00:00:00 Telephone Miya Edouard [facility] BUILDING 1.2.840.114 350.1.13.10 4.2.7.2.686 [id number] 044 [id number] [facility] 2021-05-20 15:30:00 2021-05-20 15:32:49 Outpatient R NIKA BERRY [facility] [id number] [facility] 2021-05-20 15:30:00 2021-05-20 15:32:49 Office Visit Nika Berry [facility] BUILDING 1.2.840.114 350.1.13.10 4.2.7.2.686 [id number] [facility] 2021-05-18 00:00:00 2021-05-18 00:00:00 Mono Pickett [facility] 1.2.840.114 350.1.13.10 4.2.7.2.686 [id number] 044 [id number] [facility] 2021-05-13 00:00:00 2021-05-13 00:00:00 Telephone Miya Edouard [facility] BUILDING 1.2.840.114 350.1.13.10 4.2.7.2.686 [id number] 044 [id number] [facility] 2021-05-11 00:00:00 2021-05-11 00:00:00 Telephone Miya Edouard [facility] BUILDING 1.2.840.114 350.1.13.10 4.2.7.2.686 [id number] 044 [id number] [facility] 2021-05-10 00:00:00 2021-05-10 00:00:00 Telephone Miya Edouard [facility] PROFESS[facility] BUILDING 1.2.840.114 350.1.13.10 4.2.7.2.686 [id number] 044 [id number] [facility] 2021-05-10 00:00:00 2021-05-10 00:00:00 Telephone Miya Edouard [facility] BUILDING 1.2.840.114 350.1.13.10 4.2.7.2.686 [id number] 044 [id number] [facility] 2021-05-06 09:05:00 2021-05-06 14:37:00 Outpatient R NIKA BERRY [facility] MUSIC INSTRUCTOR [id number] [facility] 2021-05-06 09:05:00 2021-05-06 14:37:00 Hospital Encounter Nika Berry [facility]ICAL [place] 1.2.840.114 350.1.13.10 4.2.7.2.686 [id number] 071 [id number] [facility] 2021-05-06 09:05:00 2021-05-06 14:37:00 Outpatient R NIKA BERRY [facility] INSTRUCTOR [id number] [facility] 2021-05-06 12:31:00 2021-05-06 14:31:00 Surgery Nika Berry [facility] [place] 1.2.840.114 350.1.13.10 4.2.7.2.686 [id number] [facility] 2021-05-06 00:00:00 2021-05-06 00:00:00 Telephone Miya Edouard [facility]FORMERLY [facility] BUILDING 1.2.840.114 350.1.13.10 4.2.7.2.686 [id number] 044 [id number] [facility] 2021-05-05 16:00:00 2021-05-05 16:31:52 Outpatient R MIYA EDOUARD [facility] [id number] [facility] 2021-05-05 16:00:00 2021-05-05 16:31:52 Office Visit Miya Edouard [facility] 1.2.840.114 350.1.13.10 4.2.7.2.686 [id number] 044 [id number] [facility] 2021-05-04 12:15:00 2021-05-04 12:30:00 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 Pob, Adc Lab Main AdNika gaxiola [facility] 1..840.114 350.1.13.10 4.2.7.2.686 [id number] [facility] 2021-05-04 12:15:00 2021-05-04 12:15:00 Outpatient R [facility] [id number] [facility] 2021-05-04 12:00:00 2021-05-04 12:15:00 Laboratory Only Only, Adc Test AdNika gaxiola [facility] 1..840.114 350.1.13.10 4.2.7.2.686 [id number] [facility] 2021-05-04 12:00:00 2021-05-04 12:00:00 Outpatient R JAMAL [facility] [id number] [facility] 2021-05-04 00:00:00 2021-05-04 00:00:00 Orders Only Doctor Unassigned, [place] [facility] 1.2.840.114 350.1.13.10 4.2.7.2.686 [id number] [facility] 2021-04-22 14:30:00 2021-04-22 15:09:50 Outpatient R JAMAL [facility] [id number] [facility] 2021-04-22 14:30:00 2021-04-22 15:09:50 [facility] BU[facility] 1.2.840.114 350.1.13.10 4.2.7.2.686 [id number] [facility] 2021-04-22 15:00:00 2021-04-22 15:00:00 Outpatient R NIKA BERRY [facility] [id number] [facility] 2021-04-22 00:00:00 2021-04-22 00:00:00 Refill ColemanMiya hoang [facility] 1.2.840.114 350.1.13.10 4.2.7.2.686 [id number] 044 [id number] [facility] 2021-04-20 16:15:00 2021-04-20 16:50:21 Outpatient R HAYLEY ABBEY [facility] [id number] [facility] 2021-04-20 16:15:00 2021-04-20 16:50:21 Office Visit Abbey Rothman [facility] 1.2.840.114 350.1.13.10 4.2.7.2.686 [id number] [facility] 2021-04-19 00:00:00 2021-04-19 00:00:00 Refill Miya Edouard [facility] BUILDING 1.2.840.114 350.1.13.10 4.2.7.2.686 [id number] 044 [id number] [facility] 2021-04-12 00:00:00 2021-04-12 00:00:00 Telephone Miya Edouard [facility] BUILDING 1.2.840.114 350.1.13.10 4.2.7.2.686 [id number] 044 [id number] [facility] 2021-04-02 08:03:00 2021-04-02 10:35:00 Outpatient R ABBEY ROTHMAN [facility] DEB [id number] [facility] 2021-04-02 08:03:00 2021-04-02 10:35:00 Hospital Encounter Abbey Rothman [facility] SUR[facility] [place] 1.2.114 350.1.13.10 4.2.7.2.686 [id number] 071 [id number] [facility] 2021-04-02 09:32:00 2021-04-02 10:30:00 Surgery Abbey Rothman [facility] [place] 1..114 350.1.13.10 4.2.7.2.686 [id number] 020 [id number] [facility] 2021-04-02 00:00:00 2021-04-02 00:00:00 Orders Only Doctor Unassigned, [place] [facility] 1.114 350.1.13.10 4.2.7.2.686 [id number] [facility] 2021-03-19 15:30:00 2021-03-19 15:30:00 Outpatient R NIKA BERRY [facility] [id number] [facility] 2021-03-18 00:00:00 2021-03-18 00:00:00 Patient Secure Msg Doctor Unassigned, [place] [facility] 1.114 350.1.13.10 4.2.7.2.686 [id number] [facility] 2021-03-16 00:00:00 2021-03-16 00:00:00 Telephone Nika Berry [facility] PROFESSIO [facility] 1.114 350.1.13.10 4.2.7.2.686 [id number] [facility] 2021-03-11 00:00:00 2021-03-11 00:00:00 Patient Secure Msg [facility] BU[facility] 1.2.840.114 350.1.13.10 4.2.7.2.686 [id number] [id number] [facility] 2021-03-10 13:48:49 2021-03-10 23:59:00 [facility] 1.2.840.114 350.1.13.10 4.2.7.2.686 [id number] [facility] 2021-03-10 13:46:21 2021-03-10 13:47:00 [facility] [id number] [facility] 2021-03-10 13:46:21 2021-03-10 13:47:00 [facility] 1.2.840.114 350.1.13.10 4.2.7.2.686 [id number] [facility] 2021-03-04 12:51:00 2021-03-04 16:33:00 Outpatient R NIKA BERRY [facility] MUSIC INSTRUCTOR [id number] [facility] 2021-03-04 12:51:00 2021-03-04 16:33:00 Hospital Encounter Nika Berry [facility] [place] 1.2.840.114 350.1.13.10 4.2.7.2.686 [id number] [facility] 2021-03-04 13:25:00 2021-03-04 15:26:00 Surgery AdNika gaxiola [facility] [place] 1.2.840.114 350.1.13.10 4.2.7.2.686 [id number] [facility] 2021-03-04 00:00:00 2021-03-04 00:00:00 Telephone Brady [facility]jun [facility] 1.2.840.114 350.1.13.10 4.2.7.2.686 [id number] [id number] [facility] 2021-03-04 00:00:00 2021-03-04 00:00:00 Orders Only Doctor Unassigned, [place] [facility] 1.2840.114 350.1.13.10 4.2.7.2.686 [id number] [facility] 2021-03-02 11:38:41 2021-03-02 11:53:41 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 1, Adc Lab Nika Berry [facility] 1.840.114 350.1.13.10 4.2.7.2.686 [id number] [facility] 2021-03-02 11:30:00 2021-03-02 11:30:00 Outpatient R [facility] [id number] [facility] 2021-03-02 11:30:00 2021-03-02 11:30:00 Outpatient R NIKA BERRY [facility] [id number] [facility] 2021-03-02 00:00:00 2021-03-02 00:00:00 Orders Only Doctor Unassigned, [place] [facility] 1.2840.114 350.1.13.10 4.2.7.2.686 [id number] [facility] 2021-03-01 00:00:00 2021-03-01 00:00:00 Outpatient R EVA ABREU [facility] [id number] [facility] 2021-03-01 00:00:00 2021-03-01 00:00:00 [facility] [id number] [facility] 2021-02-26 16:00:00 2021-02-26 17:26:37 Outpatient R NIKA BERRY [facility] [id number] [facility] 2021-02-26 16:00:00 2021-02-26 17:26:37 Outpatient R NIKA BERRY [facility] [id number] [facility] 2021-02-26 15:40:04 2021-02-26 17:26:37 Office Visit Nika Berry [facility] 1.2.840.114 350.1.13.10 4.2.7.2.686 [id number] [facility] 2021-02-26 16:00:00 2021-02-26 16:00:00 Outpatient R NIKA BERRY [facility] [id number] [facility] 2021-02-26 00:00:00 2021-02-26 00:00:00 Prep For Surgery Nika Berry [facility] 1.2840.114 350.1.13.10 4.2.7.2.686 [id number] [facility] 2021-02-26 00:00:00 2021-02-26 00:00:00 Orders Only Doctor Unassigned, [place] [facility] 1.20.114 350.1.13.10 4.2.7.2.686 [id number] [facility] 2021-02-25 00:00:00 2021-02-25 00:00:00 Prep For Surgery Diann Christianson [facility] 1.2.840.114 350.1.13.10 4.2.7.2.686 [id number] [facility] 2021-02-24 00:00:00 2021-02-24 00:00:00 Orders Only Doctor Unassigned, [place] [facility] 1.2840.114 350.1.13.10 4.2.7.2.686 [id number] [facility] 2021-02-24 00:00:00 2021-02-24 00:00:00 Patient Secure Msg Doctor Unassigned, [place] [facility] 1.2.840.114 350.1.13.10 4.2.7.2.686 [id number] [facility] 2021-02-23 14:30:00 2021-02-23 15:55:10 Outpatient R ABBEY ROTHMAN [facility] [id number] [facility] 2021-02-23 14:21:20 2021-02-23 15:55:10 Office Visit Abbey Rothman [facility] 1.2.840.114 350.1.13.10 4.2.7.2.686 [id number] [facility] 2021-02-23 14:30:00 2021-02-23 14:30:00 Outpatient R ROTHMANABBEY [facility] [id number] [facility] 2021-02-23 00:00:00 2021-02-23 00:00:00 Orders Only Doctor Unassigned, [place] [facility] 1.2.840.114 350.1.13.10 4.2.7.2.686 [id number] [facility] 2021-02-17 14:10:00 2021-02-17 23:59:00 [facility] [id number] [facility] 2021-02-17 14:10:00 2021-02-17 23:59:00 Hospital Encounter Brady [facility] 1.2.840.114 350.1.13.10 4.2.7.2.686 [id number] [facility] 2021-02-17 15:40:00 2021-02-17 14:10:44 Outpatient [facility] [id number] [facility] 2021-02-17 15:40:00 2021-02-17 14:10:44 Outpatient R EVA ABREU [facility] [id number] [facility] 2021-02-17 13:16:10 2021-02-17 14:10:44 Office Visit Roland Abreutaylor [facility] 1.2.840.114 350.1.13.10 4.2.7.2.686 [id number] [facility] 2021-02-17 13:16:10 2021-02-17 14:10:44 Office Visit Eva Abreu [facility] 1.2.840.114 350.1.13.10 4.2.7.2.686 [id number] 059 [id number] [facility] 2021-02-16 00:00:00 2021-02-16 00:00:00 Telephone Miya Edouard [facility] 1.2.840.114 350.1.13.10 4.2.7.2.686 [id number] 044 [id number] [facility] 2021-02-11 00:00:00 2021-02-11 00:00:00 Patient Secure Msg Javan [facility] 1.2.840.114 350.1.13.10 4.2.7.2.686 [id number] 044 [id number] [facility] 2021-02-11 00:00:00 2021-02-11 00:00:00 Telephone Miya Edouard [facility] 1.2.840.114 350.1.13.10 4.2.7.2.686 [id number] 044 [id number] [facility] 2021-02-10 10:33:05 2021-02-10 23:59:00 Hospital Encounter Javan Miya [facility] 1.2.840.114 350.1.13.10 4.2.7.2.686 [id number] [facility] 2021-02-10 10:33:05 2021-02-10 23:59:00 Outpatient R MIYA EDOUARD [facility] [id number] [facility] 2021-02-09 15:57:13 2021-02-09 16:12:13 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 2, Adc Lab Miya Edouard [facility] 1.2.840.114 350.1.13.10 4.2.7.2.686 [id number] [facility] 2021-02-09 15:00:00 2021-02-09 15:52:52 Outpatient R NIKA BERRY [facility] [id number] [facility] 2021-02-09 14:35:17 2021-02-09 15:52:52 Office Visit Gabeminor Nika Tl [facility] 1.2.840.114 350.1.13.10 4.2.7.2.686 [id number] [facility] 2021-02-09 15:00:00 2021-02-09 15:00:00 Outpatient R NIKA BERRY [facility] [id number] [facility] 2021-02-08 00:00:00 2021-02-08 00:00:00 Telephone Yasir Ghosh [facility] 1.2.840.114 350.1.13.10 4.2.7.2.686 [id number] [facility] 2021-02-03 11:49:31 2021-02-03 23:59:00 Hospital Encounter Miya Edouard [facility] 1.2.840.114 350.1.13.10 4.2.7.2.686 [id number] [facility] 2021-02-03 00:00:00 2021-02-03 00:00:00 Outpatient R MIYA EDOUARD [facility] [id number] [facility] 2021-02-03 00:00:00 2021-02-03 00:00:00 Telephone Miya Edouard [facility] 1.2.840.114 350.1.13.10 4.2.7.2.686 [id number] 044 [id number] [facility] 2021-01-30 00:00:00 2021-01-30 00:00:00 Patient Secure Msg Doctor Unassigned, [place] [facility] 1.20.114 350.1.13.10 4.2.7.2.686 [id number] [id number] [facility] 2021-01-26 00:00:00 2021-01-26 00:00:00 Letter (Out) NabilajillnatalyaMiya [facility] 1.2840.114 350.1.13.10 4.2.7.2.686 [id number] 044 [id number] [facility] 2021-01-22 00:00:00 2021-01-22 00:00:00 Patient Secure Msg Doctor Unassigned, [place] [facility] 1.2840.114 350.1.13.10 4.2.7.2.686 [id number] [facility] 2021-01-21 00:00:00 2021-01-21 00:00:00 Patient Secure Msg Doctor Unassigned, [place] [facility] 1.2840.114 350.1.13.10 4.2.7.2.686 [id number] [facility] 2021-01-21 00:00:00 2021-01-21 00:00:00 Telephone Miya Edouard [facility] 1.2840.114 350.1.13.10 4.2.7.2.686 [id number] 044 [id number] [facility] 2021-01-20 15:33:31 2021-01-20 17:02:48 Office Visit Miya Edouard [facility] 1.2.840.114 350.1.13.10 4.2.7.2.686 [id number] 044 [id number] [facility] 2021-01-20 16:00:00 2021-01-20 16:00:00 Outpatient R JAVAN [facility] [id number] [facility] 2021-01-07 00:00:00 2021-01-07 00:00:[address] [facility] 1..840.114 350.1.13.10 4.2.7.2.686 [id number] [facility] 2020-12-11 15:40:00 2020-12-11 15:40:00 Outpatient R RUSSELL LAWLER [facility] [id number] [facility] 2020-12-11 11:44:57 2020-12-11 11:45:04 Imm/Inj Visit Nurse, Jimmy Powell Immunizatio Russell Schmidt [facility] 1..840.114 350.1.13.10 4.2.7.2.686 [id number] [facility] 2020-11-14 13:56:15 2020-11-14 14:06:15 Imm/Inj Visit Vaccine, Jimmy Frank Fern [facility] 1..840.114 350.1.13.10 4.2.7.2.686 [id number] [facility] 2020-11-14 13:30:00 2020-11-14 13:30:00 Outpatient FERN ZAMORA [facility] [id number] [facility] 2020-10-24 00:00:00 2020-10-24 00:00:00 Telephone Provider, [facility] 1..840.114 350.1.13.10 4.2.7.2.686 [id number] 044 [id number] [facility] 2020-10-22 10:21:57 2020-10-22 11:20:22 Urgent Care Provider, [facility] Cherri Mary Nupur [facility] 1.840.114 350.1.13.10 4.2.7.2.686 [id number] [facility] 2020-10-22 10:20:00 2020-10-22 10:20:00 Outpatient R MARY HARLEY [facility] [id number] [facility] 2020-07-03 10:00:00 2020-07-03 10:00:00 Outpatient R FESTUS MANUEL [facility] [id number] [facility] 2020-07-02 00:00:00 2020-07-02 00:00:00 Patient Outreach Russell Lawler [facility] 1..840.114 350.1.13.10 4.2.7.2.686 [id number] [facility] 2020-04-23 16:20:00 2020-04-23 16:20:00 Outpatient MIYA SANTANA [facility] [id number] [facility] 2020-01-28 00:00:00 2020-01-28 00:00:00 Miya Fisher [facility] 1..840.114 350.1.13.10 4.2.7.2.686 [id number] [facility] 2020-01-28 00:00:00 2020-01-28 00:00:00 Miya Fisher [facility] 1.2.840.114 350.1.13.10 4.2.7.2.686 [id number] 2020-01-21 15:55:21 2020-01-21 16:32:24 Office Visit Miya Edouard [facility] 1.2.840.114 350.1.13.10 4.2.7.2.686 [id number] [facility] 2020-01-21 15:55:21 2020-01-21 16:32:24 Office Visit Miya Edouard [facility] 1.2840.114 350.1.13.10 4.2.7.2.686 [id number] 2020-01-21 16:00:00 2020-01-21 16:00:00 Outpatient R NABILAJILLNATALYAMIYA [facility] [id number] [facility] 2020-01-15 15:00:00 2020-01-15 15:00:00 Outpatient R MIYA EDOUARD [facility] [id number] [facility] 2020-01-03 00:00:00 2020-01-03 00:00:00 Transition of Care Karen Copeland Mueller [facility] 1.2840.114 350.1.13.10 4.2.7.2.686 [id number] [facility] 2020-01-01 14:37:00 2020-01-01 17:46:00 Emergency Ramirez Fink [facility] 1.2.840.114 350.1.13.10 4.2.7.2.686 [id number] [facility] 2020-01-01 13:13:43 2020-01-01 14:23:28 Office Visit Miya Edouard [facility] 1.2.840.114 350.1.13.10 4.2.7.2.686 [id number] [facility] 2020-01-01 13:20:00 2020-01-01 13:20:00 Outpatient R MIYA EDOUARD [facility] [id number] [facility] 2019-12-30 11:40:00 2019-12-30 11:40:00 [facility] [id number] 2019-12-30 10:16:20 2019-12-30 10:36:20 Laboratory Only [facility] .114 350.1.13.10 4.2.7.2.686 [id number] [facility] 2019-12-30 00:00:00 2019-12-30 00:00:00 Letter (Out) Javan Miya [facility] .114 350.1.13.10 4.2.7.2.686 [id number] [facility] 2019-11-14 14:40:00 2019-11-14 14:40:00 Outpatient R GEORGE GIL [facility] [id number] [facility] 2019-11-14 14:18:15 2019-11-14 14:37:06 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 Lab, [facility] 1.114 350.1.13.10 4.2.7.2.686 [id number] [facility] 2019-10-15 13:23:22 2019-10-15 13:43:22 Laboratory Only Lab, [facility] .114 350.1.13.10 4.2.7.2.686 [id number] [facility] 2019-10-15 13:20:00 2019-10-15 13:20:00 Outpatient R GEORGE GIL [facility] [id number] [facility] 2019-08-28 09:01:21 2019-08-28 23:59:00 Outpatient R CHERRIABBEY HOLLINSLIE [facility] [id number] [facility] 2019-08-28 09:01:00 2019-08-28 23:59:00 Hospital Encounter Cherri, Mary Espitia [facility] 1.0.114 350.1.13.10 4.2.7.2.686 [id number] [facility] [facility] 2019-08-28 08:00:00 2019-08-28 08:00:00 Outpatient R NABILAJILLBENNIEBHUPINDERMIYA [facility] [id number] [facility] 2019-08-28 00:00:00 2019-08-28 00:00:00 Telephone Mary Harley [facility] 1..114 350.1.13.10 4.2.7.2.686 [id number] 019 [id number] [facility] 2019-06-03 13:49:16 2019-06-03 14:41:30 Office Visit George Gil [facility] Office Building [facility] 1..114 350.1.13.10 4.2.7.2.686 [id number] 044 [id number] [facility] 2019-06-03 00:00:00 2019-06-03 00:00:00 [facility] 1..114 350.1.13.10 4.2.7.2.686 [id number] 044 [id number] [facility] 2019-06-03 00:00:00 2019-06-03 00:00:00 [facility] 1.0.114 350.1.13.10 4.2.7.2.686 [id number] 044 [id number] [facility] 2018-12-14 00:00:00 2018-12-14 00:00:00 Orders Only Doctor Unassigned, [place] [facility] 1.2840.114 350.1.13.10 4.2.7.2.686 [id number] [id number] [facility] 2018-12-04 10:53:20 2018-12-04 11:38:20 Ancillary Visit Sherley Lofton Craig L [facility] 1.2840.114 350.1.13.10 4.2.7.2.686 [id number] [facility] 2018-11-28 00:00:00 2018-11-28 00:00:00 Telephone Kevin Valadez [facility] 1.2840.114 350.1.13.10 4.2.7.2.686 [id number] 044 [id number] [facility] 2018-11-25 12:54:02 2018-11-25 16:54:00 Emergency Betito Barroso [facility] 1.2840.114 350.1.13.10 4.2.7.2.686 [id number] 084 [id number] [facility] 2018-11-25 00:00:00 2018-11-25 00:00:00 Orders Only Doctor Unassigned, [place] [facility] 1.2840.114 350.1.13.10 4.2.7.2.686 [id number] [facility] 2018-11-22 10:57:21 2018-11-22 16:41:21 Ancillary Visit Sherley Lofton Craig L [facility] 1.2840.114 350.1.13.10 4.2.7.2.686 [id number] [facility] 2018-11-20 11:02:45 2018-11-20 11:47:45 Ancillary Visit Sherley Lofton Craig L [facility] nal Building 1.2.840.114 350.1.13.10 4.2.7.2.686 [id number] [facility] 2018-11-16 09:44:34 2018-11-16 23:59:00 Hospital Encounter Freddy, [facility] 1.2.840.114 350.1.13.10 4.2.7.2.686 [id number] [facility] 2018-11-16 09:44:18 2018-11-16 23:59:00 Hospital Encounter [facility] Building 1.2.840.114 350.1.13.10 4.2.7.2.686 [id number] [facility] 2018-11-16 09:12:01 2018-11-16 10:21:34 Office Visit Freddy [facility] Building 1.2.840.114 350.1.13.10 4.2.7.2.686 [id number] [facility] 2018-11-15 00:00:00 2018-11-15 00:00:00 Kevin Stein [facility] nal Building 1.2.840.114 350.1.13.10 4.2.7.2.686 [id number] 044 [id number] [facility] 2018-11-13 10:50:44 2018-11-13 11:00:07 Ancillary Visit Carmen Mott Craig L [facility] nal Building 1.2.840.114 350.1.13.10 4.2.7.2.686 [id number] [facility] Results Test Description Test Time Test Comments Results Result Comments Source US PELVIS COMPLETE WITH TRANSVAGINAL 21:59:57 EXAM: US PELVIS COMPLETE WITH TRANSVAGINAL HISTORY: Adnexal Cyst COMPARISON: None FINDINGS: The uterus measures 8.2 x 4.1 x 4.2 cm. The endometrial stripe measures 4mm. There is a 1.4 x 1.3 x 1.4 cm submucosal fibroid at the uterine fundus.IUD with appropriate placement in the endometrial cavity. Multiplenabothian cysts in the cervix. The right ovary measures 2.7 x 2.3 x 1.9 cm. The left ovary measures 4.8 x3.8 x 4.4 cm. There is a 3.9 x 3.9 x 3.5 cm complex cyst in the left ovarywith mixed internal echoes and septations, likely a hemorrhagic cyst. 1.5cm follicle in the right ovary. No free fluid in the pelvic cul-de-sac. [facility] CT SOFT TISSUE NECK W CONTRAST 16:10:00 EXAM: CT SOFT TISSUE NECK W CONTRAST History/Indication: lymphadenopathy Comparison: 09/28/2022 Technique: Axial postcontrast images were obtained from lateral ventriclesthrough the mediastinum. Findings: Visualized aspects of the brain, orbits and paranasal sinuseswere without worrisome findings. There were no mucosal lesions. Clinical impression notwithstanding, theright parotid, although mildly prominent in terms of size shows no focallesions. With respect to the lymph nodes, I do not see clear-cut adenopathyis perhaps 1 prominent right low level 3 presumably reactive node annotatedon image 55 of series 2, about 1 cm in size, stable since the prior study. [facility] MR LUMBAR SPINE WO CONTRAST 19:43:13 EXAM: MR LUMBAR SPINE WO CONTRAST HISTORY: Chronic Pain of entire spine TECHNIQUE: MRA of lumbar spine was performed on 1.5 Neisha withoutintravenous contrast. COMPARISON: Lumbar spine MRI dated 10/12/2022. FINDINGS: Normal lumbar lordosis. Interbody fusion hardware at L5-S1. The vertebralbodies are normal in height and alignment. The background bone marrow signal is unremarkable. The conus medullaris terminates at T12 and is normal. The cauda equinanerve roots are unremarkable. Lumbar discs are normal in height and signal intensity. At L1-L2, mild disc bulge with mild facet arthrosis. No high-grade spinalcanal stenosis or significant neural foraminal narrowing. At L2-L3, mild disc bulge with mild facet arthrosis. No high-grade spinalcanal stenosis or significant neural foraminal narrowing. At L3-L4, mild disc bulge with bilateral facet arthrosis. No high-gradespinal canal stenosis or significant neural foraminal narrowing. At L4-L5, diffuse disc bulge with facet arthrosis. No high-grade spinalcanal stenosis or significant neural foraminal narrowing. At L5-S1, evaluation of this level is limited due to susceptibilityartifact from the hardware. Bilateral facet arthrosis noted. No grosshigh-grade spinal canal stenosis or significant neural foraminal narrowing. The paraspinal soft tissues are unremarkable. Partially imaged cystic lesion in the left adnexal region, the visualizedparts measures [address] [facility] [address] MAXILLOFACIAL/MA NDIBLE WO CONTRAST 23:48:15 EXAM: CT MAXILLOFACIAL/MANDIBLE WO CONTRAST HISTORY: Chronic Sinus Irritation/Chronic Allergic Reaction TECHNIQUE: CT of the face was performed without intravenous contrast.Sagittal and coronal reformats were generated. COMPARISON: None. FINDINGS: The frontal sinuses are clear. The frontal recesses are patent. The ethmoidal air cells are clear. Ethmoidal roofs are symmetric. Laminapapyracea is intact. The maxillary sinuses are clear. Ostiomeatal units are patent. Sphenoid sinuses are clear. Sphenoethmoidal recesses are patent. Sphenoidseptum is deviated to left side. The nasal septum is deviated to left side with leftward osseous spur noted.Partial paradoxical right middle turbinate. Turbinates morphology isotherwise unremarkable. The mastoid air cells are clear. [facility]24-[facility]-01 18:05:38* Test Item Value Reference Range Interpretation Comme nts HGB A1C (test code = 4548-4) 5.3 % 4.0-5.7 MISAEL (test code = MISAEL) Reference RangesNormal: <5.7%Prediabetes: 5.7 - 6.4%Diabetes: > 6.5% Lab Interpretation (test code = 72867-2) Normal [facility] [id number] 17:23:12 * Test Item Value Reference Range Interpretation Comme nts TSH (test code = 7135140353) 1.09 0.45-4.70 Biotin has been reported to cause a negative bias, interpret results relative to patient's use of biotin. Lab Interpretation (test code = 97117-4) Normal [facility] [id number] 17:10:13* Test Item Value Reference Range Interpretation Comme nts FREE T4 (test code = 7191862980) 0.79 0.78-2.20 Lab Interpretation (test cod e = 14060-8) Normal [facility] [id number] 17:09:52* Test Item Value Reference Range Interpretation Comme nts FREE T3 (test code = 7560908128) 3.68 pg/mL 2.77-5.27 Lab Interpretation (test cod e = 82375-1) Normal [facility] Hospital[facility] (98583)(Total Cholesterol, Triglycerides, HDL)2024-02-01 16:47:08* Test Item Value Reference Range Interpretation Comme nts CHOL (test code = 3396133956) 233 mg/dL 120-200 H HDL (test code = 8177888985) 46 mg/dL >=50 L HDLC RATIO (test code = 7556374177) 5.1 <=4.5 H TRIG (test code = 9303896354) 142 mg/dL 30-170 LDL CHOL (test code = 42658-1) 159 mg/dL <=160 VLDL (test code = 2935003771) 28 mg/dL 5-60 Lab Interpretation (test cod e = 13075-1) Abnormal [facility] [id number] 16:15:08* Test Item Value Reference Range Interpretation Comme nts ESR (test code = 88832-8) 16 0-20 Lab Interpretation (test cod e = 96732-0) Normal [facility]oxidase (Tpo) [id number] 00:03:00 * Test Item Value Reference Range Interpretation Comme nts TPO Ab IgG (test code = 4341610696) 15.3 0.0-100.0 MISAEL (test code = MISAEL) Interpretation: Negative: ?<= 100 WHO UnitsPositive: ? > 100 WHO Units A positive result indicates the presence of TPO antibodies and suggests thepossibility of Megna's thyroiditis and/or Graves' disease. ?A negativeresult indicates no TPO antibodies or levels below the negative cut-off ofthe assay. ?The presence of antibodies to TPO can be used in conjunction withclinical findings and other laboratory tests to aid in the diagnosis ofautoimmune thyroid diseases such as Megan's thyroiditis and Graves'disease. Lab Interpretation (test code = 98140-2) [facility]-[id number] 17:51:09* Test Item Value Reference Range Interpretation Comme nts ANTI-SCL70 (test code = 0449279737) Negative Negative MISAEL (test code = MISAEL) Positive - Antibod y detected.Negative - No antibody detected. Lab Interpretation (test code = 59505-7) [facility]-SSA(RO)2024-01-11 17:51:09* Test Item Value Reference Range Interpretation Comme nts ANTI-SSA(RO) (test code = 9044931936) Negative Negative MISAEL (test code = MISAEL) Positive - Antibod y detected.Negative - No antibody detected. Lab Interpretation (test code = 15715-7) [facility]-SM/[id number] 17:50:49* Test Item Value Reference Range Interpretation Comme nts ANTI-SMRNP (test code = 0274404140) Negative Negative MISAEL (test code = MISAEL) Positive - Antibod y detected.Negative - No antibody detected. Lab Interpretation (test code = 91941-5) Normal [facility] [id number] 17:50:49* Test Item Value Reference Range Interpretation Comme nts ANTI-CENTR (test code = 0841509854) Negative Negative MISAEL (test code = MISAEL) Positive - Antibod y detected.Negative - No antibody detected. Lab Interpretation (test code = 48484-4) [facility]-SSB(LA)2024-01-11 17:50:49* Test Item Value Reference Range Interpretation Comme nts Anti-SSB(LA) (test code = 0359686716) Negative Negative MISAEL (test code = MISAEL) Positive - Antibod y detected.Negative - No antibody detected. Lab Interpretation (test code = 09633-6) Normal [facility]-Reactive [id number] 20:29:51* Test Item Value Reference Range Interpretation Comme nts CRP (test code = 4047308221) 0.6 mg/dL <=0.8 Lab Interpretation (test cod e = 02055-8) Normal [facility]. Metabolic Panel (93987)2024-01-10 19:51:48* Test Item Value Reference Range Interpretation Comme nts NA (test code = 2779482635) 137 mmol/L 135-145 K (test code = 9892572775) 4.6 mmol/L 3.5-5.0 CL (test code = 7114258872) 101 mmol/L 98-108 CO2 TOTAL (test code = 6169825572) 22 mmol/L 23-31 L AGAP (test code = 4567703336) 14 2-16 BUN (test code = 6884295240) 11 mg/dL 7-23 GLUCOSE (test code = 6069185903) 99 mg/dL 70-110 CREATININE (test code = 2160-0) 0.58 mg/dL 0.50-1.04 TOTAL BILI (test code = 0509014381) 0.3 mg/dL 0.1-1.1 CALCIUM (test code = 0867301283) 9.6 mg/dL 8.6-10.6 T PROTEIN (test code = 8144370484) 7.6 g/dL 6.3-8.2 ALBUMIN (test code = 2148778688) 4.7 g/dL 3.5-5.0 ALK PHOS (test code = 9721781538) 47 U/L 34-122 ALTv (test code = 1742-6) 21 U/L 5-35 AST(SGOT) (test code = 0614385154) 20 U/L 13-40 eGFR (test code = 18180-1) 114.6 mL/min/1.73m2 CKD-EPI eGFR (2020). Assuming creatinine has been stable day-to-day for at least three months, the eGFR indicates Category G1 (>= 90 mL/min/1.73 m2) Lab Interpretation (test code = 40962-0) Abnormal [facility] with [id number] 17:48:56* Test Item Value Reference Range Interpretation Comme nts WBC (test code = 6690-2) 8.65 4.30-11.10 RBC (test code = 789-8) 4.46 3.93-5.25 HGB (test code = 718-7) 13.6 g/dL 11.6-15.0 HCT (test code = 4544-3) 40.5 % 35.7-45.2 MCV (test code = 787-2) 90.8 fL 80.6-95.5 MCH (test code = 785-6) 30.5 pg 25.9-32.8 MCHC (test code = 786-4) 33.6 g/dL 31.6-35.1 RDW-SD (test code = 98567-4) 42.4 fL 39.0-49.9 RDW-CV (test code = 788-0) 12.9 % 12.0-15.5 PLT (test code = 777-3) 360 166-358 H MPV (test code = 64665-6) 9.3 fL 9.5-12.9 L NRBC/100 WBC (test code = 3980306122) 0.0 0.0-10.0 NRBC x10^3 (test code = 4027664461) See_Comment [Automated messa ge] The system which generated this result transmitted reference range: 10*3/?L. The reference range was not used to interpret this result as normal/abnormal. GRAN MAT (NEUT) % (test code = 770-8) 68.9 % IMM GRAN % (test code = 4200054325) 0.50 % LYMPH % (test code = 736-9) 22.7 % MONO % (test code = 5905-5) 5.4 % EOS % (test code = 713-8) 1.8 % BASO % (test code = 706-2) 0.7 % GRAN MAT x10^3(ANC) (test code = 8483755028) 5.96 10*3/uL 1.88-7.09 IMM GRAN x10^3 (test code = 8049671899) 0.04 10*3/uL 0.00-0.06 LYMPH x10^3 (test code = 731-0) 1.96 10*3/uL 1.32-3.29 MONO x10^3 (test code = 742-7) 0.47 10*3/uL 0.33-0.92 EOS x10^3 (test code = 711-2) 0.16 10*3/uL 0.03-0.39 BASO x10^3 (test code = 704-7) 0.06 10*3/uL 0.01-0.07 Lab Interpretation (test code = 41409-7) Abnormal [facility]ATING [id number] 18:40:31 * Test Item Value Reference Range Interpretation Comme nts TSH (test code = 8627115939) 1.07 See_Comment [Automated messa ge] The system which generated this result transmitted reference range: 0.45 - 4.70 mIU/L. The reference range was not used to interpret this result as normal/abnormal. Lab Interpretation (test code = 90740-6) Normal [facility] [id number] 18:27:10* Test Item Value Reference Range Interpretation Comme nts FREE T4 (test code = 2674340391) 0.93 See_Comment [Automated [employer]] The system which generated this result transmitted reference range: 0.78 - 2.20 ng/dL:. The reference range was not used to interpret this result as normal/abnormal. Lab Interpretation (test code = 73598-3) Normal [facility] [id number] 18:26:49* Test Item Value Reference Range Interpretation Comme nts FREE T3 (test code = 8111458286) 3.75 pg/mL 2.77-5.27 Lab Interpretation (test cod e = 70399-5) Normal [facility] [id number] 18:18:01* Test Item Value Reference Range Interpretation Comme nts TROPONIN I (test code = 2706771282) 0.005 ng/mL <=0.034 MISAEL (test code = [...] of biotin. Lab Interpretation (test code = 64626-1) Normal [facility]. METABOLIC PANEL (20901)2022-12-01 18:08:16* Test Item Value Reference Range Interpretation Comme nts NA (test code = 4645469717) 139 mmol/L 135-145 K (test code = 4041640617) 4.0 mmol/L 3.5-5.0 CL (test code = 9191539897) 106 mmol/L 98-108 CO2 TOTAL (test code = 5079576990) 26 mmol/L 23-31 AGAP (test code = 3054981384) 7 2-16 BUN (test code = 7375811526) 13 mg/dL 7-23 GLUCOSE (test code = 3207703365) 98 mg/dL 70-110 CREATININE (test code = 2032981053) 0.59 mg/dL 0.50-1.04 TOTAL BILI (test code = 2063015121) 0.4 mg/dL 0.1-1.1 CALCIUM (test code = 3485212266) 7.8 mg/dL 8.6-10.6 L T PROTEIN (test code = 0920461823) 6.3 g/dL 6.3-8.2 ALBUMIN (test code = 0838198537) 3.6 g/dL 3.5-5.0 ALK PHOS (test code = 9163835852) 36 U/L 34-122 ALTv (test code = 1742-6) 18 U/L 5-35 AST(SGOT) (test code = 1293334750) 20 U/L 13-40 eGFR (test code = 5467530671) 111.2 mL/min/1.73m2 MISAEL (test code = MISAEL) Association [...] imaging tests). Lab Interpretation (test code = 81917-6) Abnormal [facility]2023-[facility]-17 18:08:01* Test Item Value Reference Range Interpretation Comme nts LIPASE (test code = 9655458208) 50 U/L 0-220 Lab Interpretation (test cod e = 47771-2) Normal [facility] WITH [id number] 17:55:37* Test Item Value Reference Range Interpretation Comme nts WBC (test code = 6690-2) 5.65 See_Comment [Automated [employer]] The system which generated this result transmitted reference range: 4.30 - 11.10 10*3/?L. The reference range was not used to interpret this result as normal/abnormal. RBC (test code = 789-8) 3.92 See_Comment L [Automated [employer]] The system which generated this result transmitted reference range: 3.93 - 5.25 10*6/?L. The reference range was not used to interpret this result as normal/abnormal. HGB (test code = 718-7) 11.9 g/dL 11.6-15.0 HCT (test code = 4544-3) 35.8 % 35.7-45.2 MCV (test code = 787-2) 91.3 fL 80.6-95.5 MCH (test code = 785-6) 30.4 pg 25.9-32.8 MCHC (test code = 786-4) 33.2 g/dL 31.6-35.1 RDW-SD (test code = 55474-5) 45.7 fL 39.0-49.9 RDW-CV (test code = 788-0) 13.6 % 12.0-15.5 PLT (test code = 777-3) 295 See_Comment [Automated messa ge] The system which generated this result transmitted reference range: 166 - 358 10*3/?L. The reference range was not used to interpret this result as normal/abnormal. MPV (test code = 19326-0) 9.8 fL 9.5-12.9 NRBC/100 WBC (test code = 9086015872) 0.0 See_Comment [Automated [employer] ssage] The system which generated this result transmitted reference range: 0.0 - 10.0 /100 WBCs. The reference range was not used to interpret this result as normal/abnormal. NRBC x10^3 (test code = 3833062474) See_Comment [Automated [employer]] The system which generated this result transmitted reference range: 10*3/?L. The reference range was not used to interpret this result as normal/abnormal. GRAN MAT (NEUT) % (test code = 770-8) 66.5 % IMM GRAN % (test code = 2465868864) 0.20 % LYMPH % (test code = 736-9) 24.6 % MONO % (test code = 5905-5) 5.3 % EOS % (test code = 713-8) 2.7 % BASO % (test code = 706-2) 0.7 % GRAN MAT x10^3(ANC) (test code = 3972956662) 3.76 10*3/uL 1.88-7.09 IMM GRAN x10^3 (test code = 2207268497) 0.00-0.06 LYMPH x10^3 (test code = 731-0) 1.39 10*3/uL 1.32-3.29 MONO x10^3 (test code = 742-7) 0.30 10*3/uL 0.33-0.92 L EOS x10^3 (test code = 711-2) 0.15 10*3/uL 0.03-0.39 BASO x10^3 (test code = 704-7) 0.04 10*3/uL 0.01-0.07 Lab Interpretation (test code = 88782-5) Abnormal [facility] [id number] 20:08:39* Test Item Value Reference Range Interpretation Comme nts TROPONIN I (test code = 5829298036) 0.001 ng/mL <=0.034 MISAEL (test code = MISAEL) [...] of biotin. Lab Interpretation (test code = 47548-5) Normal [facility] HospitalN-TERMINAL [id number] 20:05:00* Test Item Value Reference Range Interpretation Comme nts NT-proBNP (test code = 3815853219) 76 pg/mL <=125 MISAEL (test code = MISAEL) Biotin has been reported to cause a negative bias, interpret results relative to patient's use of biotin. Lab Interpretation (test code = 84707-2) Normal [facility] Hospital[facility]. METABOLIC PANEL (36745)2022-09-28 19:54:36* Test Item Value Reference Range Interpretation Comme nts NA (test code = 4854093327) 138 mmol/L 135-145 K (test code = 2306406605) 3.8 mmol/L 3.5-5.0 CL (test code = 7976544569) 103 mmol/L 98-108 CO2 TOTAL (test code = 3836487501) 24 mmol/L 23-31 AGAP (test code = 0129617214) 11 2-16 BUN (test code = 1381291757) 14 mg/dL 7-23 GLUCOSE (test code = 0754904609) 98 mg/dL 70-110 CREATININE (test code = 9749904518) 0.66 mg/dL 0.50-1.04 TOTAL BILI (test code = 1428113602) 0.5 mg/dL 0.1-1.1 CALCIUM (test code = 7329247887) 9.6 mg/dL 8.6-10.6 T PROTEIN (test code = 0443258009) 7.4 g/dL 6.3-8.2 ALBUMIN (test code = 0557964052) 4.5 g/dL 3.5-5.0 ALK PHOS (test code = 9323621232) 60 U/L 34-122 ALTv (test code = 1742-6) 17 U/L 5-35 AST(SGOT) (test code = 3208828327) 19 U/L 13-40 eGFR (test code = 7551877283) 97.7 mL/min/1.73m2 MISAEL (test code = MISAEL) Association [...] or urine or abnormalities in imaging tests). [facility] [id number] 19:44:00* Test Item Value Reference Range Interpretation Comme nts POCT PREG (test code = 1605) Negative On board controls acceptable with C Line (test code = 3574) Yes POCT PREG LOT # (test code = 3575) [id number] POCT PREG TEST DATE ( test code = 3576) 01-21-2024 Lab Interpretation (test cod e = 94198-4) Normal [facility] HospitalACTIVATED PARTIAL THRMPLAS [id number] 19:40:13* Test Item Value Reference Range Interpretation Comme [facility] APTT Patient (test code = 3173-2) 30 See_Comment [Automated message] The system which generated this result transmitted reference range: 23 - 38 Seconds. The reference range was not used to interpret this result as normal/abnormal. MISAEL (test code = MISAEL) The [facility] patient population mean normal value for aPTT is 30 seconds. Lab Interpretation (test code = 14599-4) Normal [facility] HospitalPROTHROMBIN TIME / [id number] 19:38:12* Test Item Value Reference Range Interpretation Comme [facility] PROTIME PATIENT (test code = 5964-2) 14.4 See_Comment [Automated [employer]] The system which generated this result transmitted reference range: 12.0 - 14.7 Seconds. The reference range was not used to interpret this result as normal/abnormal. INR (test code = 6301-6) 1.2 Normal INR <1.1; Warfarin Therapeutic range 2.0 to 3.0 or 2.5 to 3.5, depending upon the indications. Lab Interpretation (test code = 96368-4) Normal [facility] HospitalCBC WITH [id number] 19:26:08* Test Item Value Reference Range Interpretation Comme [facility] WBC (test code = 6690-2) 6.65 See_Comment [Automated [employer]] The system which generated this result transmitted reference range: 4.30 - 11.10 10*3/?L. The reference range was not used to interpret this result as normal/abnormal. RBC (test code = 789-8) 4.43 See_Comment [Automated messa ge] The system which generated this result transmitted reference range: 3.93 - 5.25 10*6/?L. The reference range was not used to interpret this result as normal/abnormal. HGB (test code = 718-7) 13.3 g/dL 11.6-15.0 HCT (test code = 4544-3) 38.6 % 35.7-45.2 MCV (test code = 787-2) 87.1 fL 80.6-95.5 MCH (test code = 785-6) 30.0 pg 25.9-32.8 MCHC (test code = 786-4) 34.5 g/dL 31.6-35.1 RDW-SD (test code = 88155-5) 40.5 fL 39.0-49.9 RDW-CV (test code = 788-0) 12.7 % 12.0-15.5 PLT (test code = 777-3) 347 See_Comment [Automated messa ge] The system which generated this result transmitted reference range: 166 - 358 10*3/?L. The reference range was not used to interpret this result as normal/abnormal. MPV (test code = 27356-1) 9.6 fL 9.5-12.9 NRBC/100 WBC (test code = 6762432969) 0.0 See_Comment [Automated [employer] ssage] The system which generated this result transmitted reference range: 0.0 - 10.0 /100 WBCs. The reference range was not used to interpret this result as normal/abnormal. NRBC x10^3 (test code = 7730942268) See_Comment [Automated messa ge] The system which generated this result transmitted reference range: 10*3/?L. The reference range was not used to interpret this result as normal/abnormal. GRAN MAT (NEUT) % (test code = 770-8) 74.1 % IMM GRAN % (test code = 8711238550) 0.80 % LYMPH % (test code = 736-9) 18.8 % MONO % (test code = 5905-5) 5.1 % EOS % (test code = 713-8) 0.6 % BASO % (test code = 706-2) 0.6 % GRAN MAT x10^3(ANC) (test code = 5824370323) 4.93 10*3/uL 1.88-7.09 IMM GRAN x10^3 (test code = 3160631966) 0.05 10*3/uL 0.00-0.06 LYMPH x10^3 (test code = 731-0) 1.25 10*3/uL 1.32-3.29 L MONO x10^3 (test code = 742-7) 0.34 10*3/uL 0.33-0.92 EOS x10^3 (test code = 711-2) 0.04 10*3/uL 0.03-0.39 BASO x10^3 (test code = 704-7) 0.04 10*3/uL 0.01-0.07 Lab Interpretation (test code = 24367-4) [id number][facility] 14:01:08* Test Item Value Reference Range Interpretation Comme nts NA (test code = 4833374431) 140 mmol/L 135-145 K (test code = 7751352865) 4.0 mmol/L 3.5-5 CL (test code = 3944364670) 104 mmol/L 98-108 CO2 TOTAL (test code = 8430073469) 22 mmol/L 23-31 L AGAP (test code = 2377236815) 2-16 BUN (test code = 6250872041) 17 mg/dL 7-23 GLUCOSE (test code = 2474524429) 118 mg/dL 70-110 H CREATININE (test code = 2161472944) 0.58 mg/dL 0.5-1.04 TOTAL BILI (test code = 1702364695) 0.3 mg/dL 0.1-1.1 CALCIUM (test code = 7340006784) 9.5 mg/dL 8.6-10.6 T PROTEIN (test code = 9910371078) 7.2 g/dL 6.3-8.2 ALBUMIN (test code = 1847757348) 4.5 g/dL 3.5-5 ALK PHOS (test code = 7266196904) 54 U/L 34-122 ALTv (test code = 1742-6) 28 U/L 5-35 AST(SGOT) (test code = 4419348117) 21 U/L 13-40 eGFR (test code = 5676915796) mL/min/1.73m2 MISAEL (test code = MISAEL) Association [...] imaging tests). Lab Interpretation (test code = 59267-5) Abnormal [facility] WITH [id number] 13:50:24* Test Item Value Reference Range Interpretation Comme nts WBC (test code = 6690-2) See_Comment [[email or web address]] The system which generated this result transmitted reference range: 4.30 - 11.10 10*3/?L. The reference range was not used to interpret this result as normal/abnormal. RBC (test code = 789-8) See_Comment [Automated messa ge] The system which generated this result transmitted reference range: 3.93 - 5.25 10*6/?L. The reference range was not used to interpret this result as normal/abnormal. HGB (test code = 718-7) 12.9 g/dL 11.6-15 HCT (test code = 4544-3) 38.1 % 35.7-45.2 MCV (test code = 787-2) 88.0 fL 80.6-95.5 MCH (test code = 785-6) 29.8 pg 25.9-32.8 MCHC (test code = 786-4) 33.9 g/dL 31.6-35.1 RDW-SD (test code = 70708-2) 42.5 fL 39-49.9 RDW-CV (test code = 788-0) 13.2 % 12-15.5 PLT (test code = 777-3) See_Comment H [Automated [employer]] The system which generated this result transmitted reference range: 166 - 358 10*3/?L. The reference range was not used to interpret this result as normal/abnormal. MPV (test code = 04910-2) 9.2 fL 9.5-12.9 L NRBC/100 WBC (test code = 8545306075) See_Comment [Automated [employer] ssage] The system which generated this result transmitted reference range: 0.0 - 10.0 /100 WBCs. The reference range was not used to interpret this result as normal/abnormal. NRBC x10^3 (test code = 6591673057) See_Comment [Automated [employer]] The system which generated this result transmitted reference range: 10*3/?L. The reference range was not used to interpret this result as normal/abnormal. GRAN MAT (NEUT) % (test code = 770-8) 77.7 % IMM GRAN % (test code = 0705949951) 0.30 % LYMPH % (test code = 736-9) 15.5 % MONO % (test code = 5905-5) 5.0 % EOS % (test code = 713-8) 1.1 % BASO % (test code = 706-2) 0.4 % GRAN MAT x10^3(ANC) (test code = 7637667063) 5.48 10*3/uL 1.88-7.09 IMM GRAN x10^3 (test code = 3182371451) 0-0.06 LYMPH x10^3 (test code = 731-0) 1.09 10*3/uL 1.32-3.29 L MONO x10^3 (test code = 742-7) 0.35 10*3/uL 0.33-0.92 EOS x10^3 (test code = 711-2) 0.08 10*3/uL 0.03-0.39 BASO x10^3 (test code = 704-7) 0.03 10*3/uL 0.01-0.07 Lab Interpretation (test code = 71272-0) [facility] History and Physical Notes Date/Time Note Provider Source 2024-03-04 16:51:56 Consult/Referral Fibroids, submucosal - CONSULT/REFERRAL 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
[2024-04-20] MEDS ORDERED: ONDANSETRON 4 MG/2 ML VIAL ONE (15:25)
[2024-04-20] MEDS ORDERED: DIPHENHYDRAMINE 50 MG/ML VIAL ONE (15:25)
[2024-04-20] MEDS ORDERED: KETOROLAC 30 MG/ML INJ ONE (15:25)
[2024-04-20 15:27] LABS: Absolute Eosinophils 0.2 K/uL (0-0.5); Absolute Lymphocytes (CBC) 1.5 K/uL (0.7-4.9); Absolute Monocytes 0.4 K/uL (0.1-1.3); Basophils % 0.5 % (0-1.3); Eosinophils % 2.1 % (0-4.4); Hematocrit 39.8 % (36.0-45.0); Hemoglobin 13.4 g/dL (12.0-15.0); Lymphocytes % 18.5 % (15.3-44.8); MCH 30.1 pg (27.0-35.0); MCHC 33.6 g/dL (32.0-36.0); MCV 89.5 fL (80-100); MPV 7.5 fL (7.6-11.3); Monocytes % 5.2 % (3.3-12.3); Neutrophils % 73.7 % (41.7-73.7); Platelets 374 thou/uL (152-406); RBC Red Blood Cell Count 4.44 M/uL (3.86-4.86); Red Cell Distribution Width 13.2 % (12.1-15.2)
[2024-04-20 15:51] LABS: Anion Gap 12.9 mEq/L (5.0-15.0); Troponin High Sensitivity 4.1 pg/mL (<58.9)
[2024-04-20 15:58] LABS: Potassium 3.9 mEq/L (3.5-5.1)
--- NOTE | 2024-04-20 16:02 | RAD REPORT ---
EXAMINATION: ONE VIEW CHEST XR CLINICAL INDICATION: CHEST PAIN TECHNIQUE: Frontal chest projection is submitted. Examination is limited by patient positioning and t echnique. COMPARISON: 03/06/2020 FINDINGS: The lungs are well inflated and clear. The heart is upper limit of normal in size. No displaced fract ures identified. IMPRESSION: No acute intrathoracic abnormalities.
--- NOTE | 2024-04-20 17:23 | ER ---
Nurse's Notes [facility] Name: Octavia Lo Age: 44 yrs Sex: Female : 1980 Arrival Date: 04/20/2024 Time: 14:49 Bed 20 Private MD: Diagnosis: Chest pain, unspecified Presentation: 04/20 14:50 Chief complaint: EMS states: SUDDEN ONSET CHEST PAIN "FEELS LIKE HEART ATTACK". CENTER db CHEST PAIN WITH NAUSEA AND VOMITED X 1. Coronavirus screen: Client denies travel out of the [place] in the last 14 days. At this time, the client does not indicate any symptoms associated with coronavirus-19. Ebola Screen: Patient negative for fever greater than or equal to 101.5 degrees Fahrenheit, and additional compatible Ebola Virus Disease symptoms Patient denies exposure to infectious person. Patient denies travel to an Ebola-affected area in the 21 days before illness onset. No symptoms or risks identified at this time. Initial Sepsis Screen: Does the patient meet any 2 criteria? No. Patient's initial sepsis screen is negative. Does the patient have a suspected source of infection? No. Patient's initial sepsis screen is negative. Risk Assessment: Do you want to hurt yourself or someone else? Patient reports no desire to harm self or others. Onset of symptoms was April 20, 2024. Care prior to arrival: Medication(s) given: ASA, 81 mg, x 4, 25 MCG FENTANYL. 14:50 Method Of Arrival: EMS: [facility] db 14:50 Acuity: ONUR 2 db Triage Assessment: 14:53 General: Appears in no apparent distress. uncomfortable, Behavior is calm, cooperative. db Pain: Complains of pain in chest. Neuro: Level of Consciousness is awake, alert, obeys commands, Oriented to person, place, time, situation. Cardiovascular: Reports chest pain. Respiratory: Airway is patent Respiratory effort is even, unlabored, Respiratory pattern is regular, symmetrical. Historical: - Allergies: 14:51 Codeine; db 14:51 Percocet; db 14:51 Phenergan; db 14:51 Reglan; db - Home Meds: 14:51 Metoprolol Tartrate Oral [Active]; pantoprazole oral [Active]; losartan oral [Active]; db gabapentin oral [Active]; - PMHx: 14:51 Anxiety; blood clot right side of head; Hypertension; Kidney stones; Hypothyroidism; db Pancreatitis; - PSHx: 14:51 spinal sx 07/30/22; db - Immunization history:: Adult Immunizations unknown. - Infectious Disease History:: Denies. - Social history:: Smoking status: . Screenin:00 [facility] ED Fall Risk Assessment (Adult) History of falling in the last 3 months, db including since admission No falls in past 3 months (0 pts) Confusion or Disorientation No (0 pts) Intoxicated or Sedated No (0 pts) Impaired Gait Yes (1 pt) Mobility Assist Device Used Yes (1 pt) Altered Elimination No (0 pt) Score/Fall Risk Level 0 - 2 = Low Risk Oriented to surroundings, Maintained a safe environment. Abuse screen: Denies threats or abuse. Denies injuries from another. Nutritional screening: No deficits noted. Tuberculosis screening: No symptoms or risk factors identified. Assessment: 16:00 Reassessment: Patient appears in no apparent distress at this time. Patient and/or db family updated on plan of care and expected duration. Pain level reassessed. Patient is alert, oriented x 3, equal unlabored respirations, skin warm/dry/pink. General: Appears in no apparent distress. comfortable, Behavior is calm, cooperative. Pain: Complains of pain in chest Pain does not radiate. Pain began suddenly. Neuro: Level of Consciousness is awake, alert, obeys commands, Oriented to person, place, time, situation. Respiratory: Airway is patent Respiratory effort is even, unlabored, Respiratory pattern is regular, symmetrical. 18:09 Reassessment: Patient appears in no apparent distress at this time. Patient and/or db family updated on plan of care and expected duration. Pain level reassessed. Patient is alert, oriented x 3, equal unlabored respirations, skin warm/dry/pink. Patient states feeling better. Patient states symptoms have improved. Vital Signs: 14:50 BP 125 / 97; Pulse 61; Resp 14; Temp 98; Pulse Ox 100% on R/A; Weight 99.79 kg; Height db 5 ft. 5 in. ; 15:30 BP 165 / 101; Pulse 53; Resp 16; Pulse Ox 100% on R/A; db 16:00 BP 163 / 95; Pulse 57; Resp 16; Pulse Ox 100% on 2 lpm NC; db 16:30 BP 151 / 90; Pulse 57; Resp 15; Pulse Ox 100% on R/A; db 17:22 BP 137 / 95; Pulse 61; ec2 17:30 BP 129 / 103; Pulse 60; Resp 14; Pulse Ox 99% ; db 14:50 Body Mass Index 36.61 (99.79 kg, 165.1 cm) db ED Course: 14:50 Patient arrived in ED. db 14:53 Arm band placed on Patient placed in an exam room. db 14:55 Maintain EMS IV. Dressing intact. Good blood return noted. Site clean \\T\\ dry. Gauge \\T\\ db site: 20 G RAC. 14:56 Betito Gongora MD is Attending Physician. ec2 15:07 EKG done, by ED staff, reviewed by Betito Gongora MD. em1 15:13 Yaz Leone, RN is Primary Nurse. db 15:48 XRAY Chest (1 view) In Process Unspecified. EDMS 18:12 Patient has correct armband on for positive identification. Bed in low position. Call db light in reach. Side rails up X 1. Provided Education on: DISCHARGE AND FOLLOWUP. Client placed on continuous cardiac and pulse oximetry monitoring. NIBP monitoring applied. brass buffer on. Pulse ox on. NIBP on. 18:12 No provider procedures requiring assistance completed. IV discontinued, intact, db bleeding controlled, No redness/swelling at site. Oxygen administration via nasal cannula \\T\\ 2L/min Response to oxygen therapy: symptoms improved. 18:16 Triage completed. db Administered Medications: 15:25 Drug: diphenhydrAMINE IVP 25 mg IVP once Route: IVP; Site: right antecubital; db 16:19 Follow up: Response: No adverse reaction db 15:28 Drug: Ketorolac IVP 15 mg IVP once Route: IVP; Site: right antecubital; db 16:19 Follow up: Response: No adverse reaction; Pain is decreased db 15:30 Drug: Ondansetron IVP 4 mg IVP once; over 2 minutes Route: IVP; Site: right antecubital;db 16:19 Follow up: Response: No adverse reaction db Medication: 15:00 VIS not applicable for this client. db Outcome: 17:22 Discharge ordered by . ec2 18:12 Discharged to home ambulatory, db 18:12 Condition: stable 18:12 Discharge instructions given to patient, Instructed on discharge instructions, follow up and referral plans. Prescriptions given X 1, 18:16 Patient left the ED. db Signatures: Dispatcher [employer] Emre Garcia em1 Yaz Leone, RN RN db Betito Gongora MD MD ec2 Corrections: (The following items were deleted from the chart) 14:53 14:51 PMHx: blood clot right side of head; db db 18:16 14:50 Chief complaint: EMS states: SUDDEN ONSET CHEST PAIN "FEELS LIKE HEART ATTACK". db CENTER CHEST PAIN WITH NAUSEA AND VOMITED X 1 db
--- NOTE | 2024-04-20 17:23 | EDPHYS ---
Physician Documentation [facility] Name: Octavia Lo Age: 44 yrs Sex: Female : 1980 Arrival Date: 04/20/2024 Time: 14:49 Bed 20 Private MD: ED Physician Betito Gongora HPI: 04/20 15:14 This 44 yrs old Female presents to ER via Unassigned with complaints of Chest ec2 Pain. 15:14 Patient arrives today for chest pain along with headache and nausea and vomiting. ec2 Patient reports that she has been feeling unwell for the past several days.. Historical: - Allergies: 14:51 Codeine; db 14:51 Percocet; db 14:51 Phenergan; db 14:51 Reglan; db - Home Meds: 14:51 Metoprolol Tartrate Oral [Active]; pantoprazole oral [Active]; losartan oral [Active]; db gabapentin oral [Active]; - PMHx: 14:51 Anxiety; blood clot right side of head; Hypertension; Kidney stones; Hypothyroidism; db Pancreatitis; - PSHx: 14:51 spinal sx 07/30/22; db - Immunization history:: Adult Immunizations unknown. - Infectious Disease History:: Denies. - Social history:: Smoking status: . ROS: 15:14 Constitutional: as per hpi ec2 Exam: 15:14 Constitutional: GEN: NAD Head: atraumatic Eyes: EOMI Ears: External ears are ec2 normal. CV: regular rate LUNGS: no respiratory distress ABD: non-distended SKIN: no evidence of rashes MSK: no evidence of trauma Vital Signs: 14:50 BP 125 / 97; Pulse 61; Resp 14; Temp 98; Pulse Ox 100% on R/A; Weight 99.79 kg; Height db 5 ft. 5 in. ; 15:30 BP 165 / 101; Pulse 53; Resp 16; Pulse Ox 100% on R/A; db 16:00 BP 163 / 95; Pulse 57; Resp 16; Pulse Ox 100% on 2 lpm NC; db 16:30 BP 151 / 90; Pulse 57; Resp 15; Pulse Ox 100% on R/A; db 17:22 BP 137 / 95; Pulse 61; ec2 17:30 BP 129 / 103; Pulse 60; Resp 14; Pulse Ox 99% ; db 14:50 Body Mass Index 36.61 (99.79 kg, 165.1 cm) db MDM: 14:56 Medical Screening Exam initiated ec2 15:14 Data reviewed: vital signs, nurses notes. ED course: Patient arrives today for ec2 evaluation of chest pain. Examination is revealing for a comfortable individual was otherwise in no acute distress with a reassuring examination. EKG obtained, independently reviewed and interpreted by me, shows normal sinus rhythm, rate of 56, no acute ST segment elevations, normals are nonactionable. Will obtain cardiac profile, chest x-ray, treat the patient's symptoms and reassess. Differential diagnosis considered include processes such as ACS, PE, dissection, intracranial mass and bleed.. 17:21 ED course: Patient with reassuring lab work. On reassessment patient is well-appearing ec2 in no acute distress. Will discharge home and have the patient follow-up PCP. Return precautions given.. 04/20 14:56 Order name: Basic Metabolic Panel; Complete Time: 16:09 ec2 04/20 14:56 Order name: CBC with Diff; Complete Time: 16:09 ec04/20 14:56 Order name: Troponin HS; Complete Time: 16:09 ec2 04/20 14:56 Order name: XRAY Chest (1 view); Complete Time: 16:09 ec04/20 14:56 Order name: EKG; Complete Time: 14:56 ec04/20 14:56 Order name: Cardiac monitoring; Complete Time: 15:07 ec2 04/20 14:56 Order name: EKG - Nurse/Tech; Complete Time: 15:07 ec2 04/20 14:56 Order name: IV Saline Lock; Complete Time: 15:14 ec04/20 14:56 Order name: Labs collected and sent; Complete Time: 16:19 ec2 04/20 14:56 Order name: O2 Per Protocol; Complete Time: 15:14 ec04/20 14:56 Order name: O2 Sat Monitoring; Complete Time: 15:14 ec2 Administered Medications: 15:25 Drug: diphenhydrAMINE IVP 25 mg IVP once Route: IVP; Site: right antecubital; db 16:19 Follow up: Response: No adverse reaction db 15:28 Drug: Ketorolac IVP 15 mg IVP once Route: IVP; Site: right antecubital; db 16:19 Follow up: Response: No adverse reaction; Pain is decreased db 15:30 Drug: Ondansetron IVP 4 mg IVP once; over 2 minutes Route: IVP; Site: right antecubital;db 16:19 Follow up: Response: No adverse reaction db Disposition Summary: 04/20/24 17:22 Discharge Ordered Notes: Location: Home ec2 Condition: Stable ec2 Diagnosis - Chest pain, unspecified ec2 Followup: ec2 - With: Private Physician - When: - Reason: Re-evaluation by your physician Discharge Instructions: - Discharge Summary Sheet ec2 - Nonspecific Chest Pain, Adult, [id number] ec2 Forms: - Family Work Release db - Medication Reconciliation Form ec2 - Antibiotic Education ec2 - Prescription Opioid Use ec2 - Patient Portal Instructions ec2 - Leadership Thank You Letter ec2 Prescriptions: - Zofran 4 mg Oral Tablet - take 1 tablet ORAL route every 12 hours As needed; 20 tablet; Refills: 0, ec2 Product Selection Permitted Signatures: Dispatcher [employer] Yaz Rodriguez, RN RN db Betito Gongora MD MD ec2 Corrections: (The following items were deleted from the chart) 14:53 14:51 PMHx: blood clot right side of head; db db
[2024-04-20 18:51] VITALS: TEMP 98
[2024-04-20 19:00] VITALS: BP 129/103; O2SAT 99
--- NOTE | 2024-04-29 11:17 | EKG ---
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
== END 2024-04-20 18:16 | disposition home or self-care (01) ==
LOC: ER 14:49
DX: R07.9 Chest pain, unspecified (principal); R51.9 Headache, unspecified; R11.2 Nausea with vomiting, unspecified; I10 Essential (primary) hypertension; F41.9 Anxiety disorder, unspecified
CPT/HCPCS: 93005; 85025; 80048; 36415; 84484; 71045; 96375; 96374; 99285; J1200; J2405

== ENCOUNTER 2024-05-01 09:59 | Emergency (ER) | payer OTHER ==
--- OUTSIDE RECORDS SUMMARY | 2024-05-01 10:08 | XMS REPORT | Continuity of Care Document ---
Author Name Unknown Address [address] [facility]. [address] [place] [address] [facility] Address [address] [facility]. [address] [place] [address] Care Team Providers Care Lead Systems Engineer Name Role Phone MIYA EDOUARD Primary Care Physician UnavailABBEY Roque Attending Clinician Unavailable MIYA EDOUARD Attending Clinician Unavailable SARAHB ETH YOUNG Attending Clinician UnavailMarybeth Pedraza Attending Clinician [phone] Miya Edouard MD Attending Clinician [phone] CHERELLE GARBER Attending Clinician Unavailable MARTHA MERAZ Attending Clinician MARTHA Hollins Attending Clinician MALIK Rosen Attending Clinician UnavailMALIK Jiang Attending Clinician UnavailMARYBETH Stout Attending Clinician Unavailable MARYBETH JIMÉNEZ Attending Clinician Unavailable Carina Taylor RPH Attending Clinician Unavailable LOKI HAYES Attending Clinician Unavailable Kareem sheriffs, Jeni Attending Clinician Unaabebe Meraz MD, Martha Attending Clinician + [phone] Freddy HOPPER, Loki Attending Clinician [phone] Clare Hernández MD Attending Clinician [phone] Eren HOPPER, Jennie Valle Attending Clinician [phone] Only, [facility] Test Attending Clinician Unavailable JENNIE LOVING Attending Clinician Unavailab zonia Priest MD, Lui Blanc Attending Clinicia n Sue Childs MD Attending Clinician [phone] Olamide Simpson PA-C Attending Clinician [phone] Doctor Unassigned, La Verkin Attending Clinician U sheron 2, [facility] Attending Clinician Unavailable Pcp-Lab Attending Clinician Unavailable OLAMIDE SIMPSON Attending Clinician Unavailable OLAMIDE SIMPSON Attending Clinician Unavailable Miya Edouard MD Attending Clinician [phone] RAFFI RODRIGUEZ Attending Clinician Unavailab Eva Bañuelos MD Attending Clinician [phone] GELA BENEDICT Attending Clinician Unavailable PATRIZIA HI Attending Clinician Unavailable Octavia Moy Attending Clinician [phone] Doctor Unassigned, [place] Attending Clinician U Gela Quintana MD Attending Clinician [phone] Pob, [facility] Main Attending Clinician Unavailabl e 2, [facility] Attending Clinician Unavailable EVA ABREU Attending Clinician Unavailable SHEREE BLOOD Attending Clinician Unavaila JEY Weaver Attending Clinician Unavailable Jey Machado S Attending Clinician [phone] SARMAD PITT Attending Clinician Unavail able SARMAD PITT Attending Clinician Unavail able Sarmad Pitt MD Attending Clinician [phone] Neurology Attending Clinician Unavailable JULIANE JOLLY Attending Clinician Unavailab Juliane Moeller MD Attending Clinician [phone] RADIOLOGY Attending Clinician Unavailable Radiology Attending Clinician Unavailable CAROLINA MAURICE Attending Clinician Unavailab Carolina Mario DO Attending Clinician [phone] Nathaly Richter PA-C Attending Clinician [phone] Only, Ang [facility] Test Attending Clinician Unavailabl e Ebrahim YARN DRY ROOM WORKER, Bjia Attending Clinician +[phone] EBRAHIM, RANKIA Attending Clinician Unavailable NATHALY RICHTER Attending Clinician Unavailable ADUM, NIKA L Attending Clinician Unavailable Jamal HOPPER, Nika Boothe Attending Clinician [phone] Mono Perea MD Attending Clinician + [phone] Only, [facility] Test Attending Clinician Unavailable Abbey Rothman MD Attending Clinician [phone], [facility] Attending Clinician Unavailable Gramm Diann BAXTER Attending Clinician [phone] Yasir Ghosh MD Attending Clinician [phone] RUSSELL LAWLER Attending Clinician Unavail able Nurse, [facility] Pob Immunization Attending Clinician Unavailable Russell Lawler DO Attending Clinician [phone] Vaccine, [facility] Family Attending Clinician Unavaila ble Green YARN DRY ROOM WORKER, Fern Attending Clinician [phone] FERN EVANGELISTA Attending Clinician Unavailable Provider, [facility] Attending Clinician Un available Mary Rodrigues Attending Clinician + [phone] MARY HARLEY Attending Clinician Unavailable FESTUS MANUEL Attending Clinician Unavailable Karen Copeland Attending Clinician [phone] Ramirez Fink MD Attending Clinician [phone] GEORGE GIL Attending Clinician Unavailable Lab, [facility] Fam Pob I Attending Clinician Unavailab zonia Gil YARN DRY ROOM WORKER, George Attending Clinician [phone] Rolly SUPERVISOR FURNACE PROCESS, Sherley K Attending Clinician Unavail able Malik White MD Attending Clinician [phone] Kevin Valadez MD Attending Clinician [phone] Betito Weinberg Attending Clinician [phone] Freddy HOPPER, Loki Attending Clinician +[phone] Eren Espinoza PT, Carmen Attending Clinician Un available ABBEY ROTHMAN Admitting Clinician Unavailable MIYA EDOUARD Admitting Clinician Unavailable JEY PEREZ Admitting Clinician Unavailable JULIANE JOLLY Admitting Clinician Unavailab NIKA Leonard Admitting Clinician Unavailable Nika Berry MD Admitting Clinician Abbey Rothman MD Admitting Clinician MARY HARLEY Admitting Clinician Unavailable Payers Payer Name Policy Type Policy Number Effective Date Expirati on Date Source [employer] [employer] [id number] 2017 00:00:00 [facility] [id number] 2024 00:00:00 MEDICAID [place] [id number] 2023 00:00:00 2024 00:00:00 Problems Condition Name Condition Details Condition Category Status Onset Date Resolution Date Last Treatment Date Treating Clinician Comments Source Lymphadeno mann, cervical Lymphadeno mann, cervical Disease Active 2023-04- 00:00: 00 [facility] Tenderness of lymph node Tenderness of lymph node Disease Active 2023-04 00:00: 00 [facility] Agoraphobi a Agoraphobi a Disease Active 2023-04 00:00: 00 [facility] Stress incontinen ce of urine Stress incontinen ce of urine Disease Active 01-04 00:00: 00 [facility] Bulging lumbar disc Bulging lumbar disc Disease Active 01-04 00:00: 00 [facility] Foraminal stenosis of lumbar region Foraminal stenosis of lumbar region Disease Active 01-04 00:00: 00 [facility] 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 Disease Active 01-04 00:00: 00 [facility] Postural orthostati c tachycardi a syndrome (POTS) Postural orthostati c tachycardi a syndrome (POTS) Disease Active 01-04 00:00: 00 [facility] Subclinica l hypothyroi dism Subclinica l hypothyroi dism Disease Active 01-04 00:00: 00 [facility] Loss of hair Loss of hair Disease Active 0 -20 00:00: 00 [facility] Primary insomnia Primary insomnia Disease Active 0 01-04 00:00: 00 [facility] Syncope and collapse Syncope and collapse Disease Active 0 6-20 00:00: 00 [facility] Knee buckling, left Knee buckling, left Disease Active 0 6 00:00: 00 [facility] Moderate major depression Moderate major depression Disease Active 0 20 00:00: 00 [facility] Lumbar radiculopa thy, chronic Lumbar radiculopa thy, chronic Disease Active 0 2-17 00:00: 00 [facility] Primary osteoarthr itis of right knee Primary osteoarthr itis of right knee Disease Active 0 2-17 00:00: 00 [facility] Bakers cyst, right Bakers cyst, right Disease Active 2021-04 0-13 00:00: 00 [facility] Bakers cyst, right Bakers cyst, right Disease Active 2021-04 0-13 00:00: 00 [facility] Chronic neck pain Chronic neck pain Disease Active 0 12-23 00:00: 00 [facility] Prediabete s Prediabete s Disease Active 0 12-23 00:00: 00 [facility] Hidradenit is suppurativ a Hidradenit is suppurativ a Disease Active 0 8- 00:00: 00 [facility] Numbness and tingling of right arm and leg Numbness and tingling of right arm and leg Disease Active 0 8-24 00:00: 00 [facility] Chronic pain of right knee Chronic pain of right knee Disease Active 0 8-24 00:00: 00 [facility] Right sided sciatica Right sided sciatica Disease Active 0 8-24 00:00: 00 [facility] Chronic pain of both shoulders Chronic pain of both shoulders Disease Active 0 8-24 00:00: 00 [facility] Degenerati ve disc disease at L5-S1 level Degenerati ve disc disease at L5-S1 level Disease Active 8-24 00:00: 00 [facility] Arthritis, multiple joint involvemen t Arthritis, multiple joint involvemen t Disease Active 824 00:00: 00 [facility] Chronic pain of both shoulders Chronic pain of both shoulders Disease Active 12-08 00:00: 00 [facility] Right sided sciatica Right sided sciatica Disease Active 12-08 00:00: 00 [facility] Status post hysterosco py Status post hysterosco py Disease Active 05-06 00:00: 00 [facility] S/P lumbar discectomy S/P lumbar discectomy Disease Active 05-06 00:00: 00 [facility] Elevated TSH Elevated TSH Disease Active 05-05 00:00: 00 [facility] Chronic bilateral low back pain with right-side d sciatica Chronic bilateral low back pain with right-side d sciatica Disease Active 05-05 00:00: 00 [facility] 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 Disease Active 05-05 00:00: 00 [facility] Blood clots in stool Blood clots in stool Disease Active 2020-04 0 00:00: 00 [facility] BMI 39.0-39.9, adult BMI 39.0-39.9, adult Disease Active 2020-04 0-06 00:00: 00 [facility] Gastroesop hageal reflux disease without esophagiti s Gastroesop hageal reflux disease without esophagiti s Disease Active 2019-04 0-06 00:00: 00 [facility] Anxiety Anxiety Disease Active 2019-04 0-06 00:00: 00 [facility] Chronic allergic rhinitis Chronic allergic rhinitis Disease Active 9-16 00:00: 00 [facility] Asymptomat ic hypertensi ve urgency Asymptomat ic hypertensi ve urgency Disease Active 12-31 00:00: 00 [facility] Non compliance w medication regimen Non compliance w medication regimen Disease Active 12-31 00:00: 00 [facility] Essential hypertensi on Essential hypertensi on Disease Active 01-14 00:00: 00 [facility] Renal stones Renal stones Disease Active 01-14 00:00: 00 [facility] Hepatomega ly Hepatomega ly Disease Active 01-14 00:00: 00 [facility] Encounter for weight management Encounter for weight management Disease Resolve d 1-19 00:00: 00 2022-01-28 00:00:00 2022-01-28 09:52:08 [facility] Rectal bleeding Rectal bleeding Disease Resolve d 2020-04 1-11 00:00: 00 2022-01-28 00:00:00 2022-01-28 09:52:17 Overview: Formattin g of this note might be different from the original. Added automatic ally from request for surgery [id number] [facility] Lower abdominal pain Lower abdominal pain Disease Resolve d 2020-04 0-06 00:00: 00 2022-01-28 00:00:00 2022-01-28 09:52:35 [facility] Acute maxillary sinusitis, recurrence not specified Acute maxillary sinusitis, recurrence not specified Disease Resolve d -16 00:00: 00 2022-01-28 00:00:00 2022-01-28 09:51:52 [facility] URI with cough and congestion URI with cough and congestion Disease Resolve d 9-16 00:00: 00 2022-01-28 00:00:00 2022-01-28 09:52:24 [facility] Encounter for insertion of Mirena IUD Encounter for insertion of Mirena IUD Disease Resolve d 1-20 00:00: 00 2021-05-20 00:00:00 2021-05-20 14:18:56 [facility] Pre-op evaluation Pre-op evaluation Disease Resolve d 1-07 00:00: 00 2021-05-20 00:00:00 2021-05-20 14:18:40 [facility] Retained intrauteri ne contracept clarissa device (IUD) Retained intrauteri ne contracept clarissa device (IUD) Disease Resolve d 1-07 00:00: 00 2021-05-20 00:00:00 2021-05-20 14:18:53 [facility] Family planning, IUD (intrauter ine device) check/rein sertion/re moval Family planning, IUD (intrauter ine device) check/rein sertion/re moval Disease Resolve d 2020-04 1-13 00:00: 00 2021-05-20 00:00:00 2021-05-20 14:18:30 [facility] Allergies, Adverse Reactions, Alerts Allergy Name Allergy Type Status Severity Reaction(s) Onset Date Inactive Date Treating Clinician Comments Source OXYCODON E DRUG INGREDI Active ITCHING 8 00:00: 00 [facility] Oxycodon e Propensi ty to adverse reaction s Active Itching 12-01 00:00: 00 [facility] Codeine Propensi ty to adverse reaction s Active Shortness of Breath 2016-04 00:00: 00 [facility] Oxycodon e-Acetam inophen Propensi ty to adverse reaction s Active Itching 2016-04 00:00: 00 [facility] Prometha zine Hcl Propensi ty to adverse reaction s Active Other - See comments 2016-04 00:00: 00 convulsio ns [facility] Metoclop ramide Hcl Propensi ty to adverse reaction s Active Unknown - See comments 2016-04 00:00: 00 Convulsio n [facility] PROMETHA ZINE HCL DRUG INGREDI Active High Other-Cmnt 2016-04 00:00: 00 [facility] METOCLOP RAMIDE HCL DRUG INGREDI Active High Unknown-Cmnt 2016-04 00:00: 00 [facility] CODEINE DRUG INGREDI Active SOB 2016-04 00:00: 00 [facility] OXYCODON E-ACETAM INOPHEN DRUG Active ITCHING 2016-04 00:00: 00 [facility] Family History Family Member Diagnosis Comments Start Date Stop Date Sourc e Maternal grandmother Colon Cancer [facility] Paternal grandmother Breast Cancer [facility] Social History Social Habit Start Date Stop Date Quantity Comments Source Gender identity [facility] History of Social function 2024-03-04 00:00:00 2024-03-04 00:00:00 [facility] Alcoholic beverage intake 2024-03-04 00:00:00 2024-03-04 00:00:00 Current non-drinker of alcohol (finding) [facility] Tobacco use and exposure 2023-03-21 00:00:00 2023-03-21 00:00:00 Smokeless tobacco non-user [facility] Alcohol intake 2023-03-21 00:00:00 2023-03-21 00:00:00 Current non-drinker of alcohol (finding) [facility] Exposure to SARS-CoV-2 (event) 2022-08-02 00:00:00 2022-08-12 11:17:00 Not sure [facility] Sex assigned at 1980 00:00:00 1980 00:00:00 [facility] Smoking Status Start Date Stop Date Source Never smoked tobacco [facility] Medications Ordered Medication Name Filled Medication Name Start Date Stop Date Current Medication? Ordering Clinician Indication Dosage Frequency Signature (SIG) Comments Components Source iopamidol (ISOVUE 370-500 mL) injection 84 mL 2023-04 16:45: 00 03-04 16:01 :00 No [id number] 84mL 84 mL, Intravenou s, ONCE, 1 dose, On 03/04/24 at 1045, Routine [facility] FLUoxetine (PROZAC) 40 mg capsule 2023-04 00:00: 00 Yes [id number] 40mg Take 1 capsule by mouth in the morning. [facility] meloxicam 7.5 mg tablet 2023-04 00:00: 00 Yes [id number] 7.5mg Take 1 tablet by mouth in the morning. [facility] doxycycline monohydrate 100 mg capsule 2023-04 00:00: 00 Yes [id number] 100mg Take 1 capsule by mouth in the morning and 1 capsule in the evening. Take with meals. [facility] clindamycin 1 % topical solution 2023-04 00:00: 00 Yes [id number] Apply to affected area(s) 2 (two) times daily. [facility] benzoyl peroxide 10 % external wash 2023-04 00:00: 00 Yes [id number] Apply to area(s) daily. Use in shower. Rinse off thoroughly , medication can bleach fabrics. [facility] adalimumab (GONZALO,CF, PEN CROHNS-UC-H S) 80 mg/0.8 mL PnKt 2023-04 00:00: 00 Yes [id number] 80mg inject 1 Pen under the skin every 2 (two) weeks starting on day 29. [facility] LOSARTAN 50 mg tablet 2023-04 00:00: 00 Yes [id number] TAKE ONE (1) TABLET BY MOUTH IN THE MORNING. [facility] pantoprazol e 20 mg EC tablet 2023-04 00:00: 00 Yes [id number] 20mg Take 1 tablet by mouth in the morning. [facility] buPROPion SR 150 mg SR tablet 2023-04 00:00: 00 Yes [id number] 150mg Take 1 tablet by mouth in the morning and 1 tablet in the evening. [facility] vitamin C with jacob hips (VITAMIN C) 1,000 mg tablet 2023-04 00:00: 00 Yes [id number] 1000mg Take 1 tablet by mouth in the morning. [facility] Melatonin 5 mg Cap 2023-04 00:00: 00 Yes [id number] 1{capsu le} Take 1 capsule by mouth at bedtime as needed for Insomnia. [facility] ergocalcife rol, vitamin d2, 1,250 mcg (50,000 unit) capsule 2023-04 0 00:00: 00 Yes [id number] 99714A Take 1 capsule by mouth weekly. [facility] calcium carbonate 500 mg calcium (1,250 mg) tablet 2023-04 00:00: 00 Yes [id number] 500mg Take 1 tablet by mouth in the morning. [facility] fluticasone propionate 50 mcg/actuati on nasal spray 2023-04 00:00: 00 Yes [id number] 1{spray } Use 1 [place] in each nostril in the morning. [facility] azelastine 137 mcg (0.1 %) nasal spray 2023-04 00:00: 00 Yes [id number] 1{spray } Use 1 [place] in each nostril in the morning and 1 [place] in the evening. Use in each nostril as directed [facility] traZODone 50 mg tablet 2023-04 00:00: 00 Yes [id number] 50mg Take 1 tablet by mouth at bedtime. [facility] gabapentin 100 mg capsule 2023-04 0 00:00: 00 Yes [id number] 100mg Take 1 capsule by mouth in the morning and 1 capsule at noon and 1 capsule in the evening. [facility] buPROPion 75 mg tablet 2023-04 00:00: 00 02-01 00:00 :00 No [id number] 75mg Take 1 tablet by mouth in the morning and 1 tablet in the evening. [facility] metoprolol succinate XL 25 mg 24 hr tablet 01-10 00:00: 00 Yes [id number] TAKE ONE (1) TABLET(S) BY MOUTH IN THE MORNING. [facility] metoprolol succinate XL 25 mg 24 hr tablet 12-21 00:00: 00 01-10 00:00 :00 No [id number] TAKE ONE (1) TABLET(S) BY MOUTH IN THE MORNING. [facility] LEVOTHYROXI NE 25 mcg tablet 12-03 00:00: 00 03-04 00:00 :00 No [id number] TAKE ONE (1) TABLET BY MOUTH EVERY MORNING. [facility] METOPROLOL SUCCINATE XL 25 mg 24 hr tablet 8-09 00:00: 00 12-21 00:00 :00 No [id number] TAKE ONE (1) TABLET(S) BY MOUTH IN THE MORNING. [facility] METOPROLOL SUCCINATE XL 25 mg 24 hr tablet 7 00:00: 00 11-23 00:00 :00 No [id number] 25mg TAKE 1 TABLET BY MOUTH IN THE MORNING. [facility] MELOXICAM 7.5 mg tablet 6-04 00:00: 00 03-04 00:00 :00 No [id number] 103 TAKE ONE (1) TABLET BY MOUTH IN THE MORNING. [facility] DULOXETINE 20 mg capsule 6- 00:00: 00 01-24 00:00 :00 No [id number] TAKE ONE (1) CAPSULE BY MOUTH IN THE MORNING AND 1 CAPSULE IN THE EVENING. [facility] metoprolol succinate XL 25 mg 24 hr tablet 5-28 00:00: 00 10-15 00:00 :00 No [id number] 25mg Take 1 tablet by mouth in the morning. [facility] levothyroxi ne 25 mcg tablet 5-22 00:00: 00 12-03 00:00 :00 No [id number] TAKE ONE (1) TABLET BY MOUTH EVERY MORNING. [facility] TIZANIDINE 2 mg tablet 4-16 00:00: 00 Yes [id number] TAKE ONE (1) TABLET(S) BY MOUTH EVERY EIGHT HOURS NEEDED. [facility] AMITRIPTYLI NE 10 mg tablet 4-16 00:00: 00 01-09 00:00 :00 No [id number] 10mg TAKE ONE (1) TABLET BY MOUTH AT BEDTIME. [facility] LOSARTAN 50 mg tablet 4-15 00:00: 00 02-20 00:00 :00 No [id number] TAKE ONE (1) TABLET BY MOUTH IN THE MORNING. [facility] TIZANIDINE 2 mg tablet 2023-0 3-14 00:00: 00 Yes [id number] TAKE ONE (1) TABLET(S) BY MOUTH EVERY EIGHT HOURS NEEDED FOR MUSCLE SPASMS. [facility] MELOXICAM 7.5 mg tablet 3-04 00:00: 00 09-18 00:00 :00 No [id number] 103 TAKE ONE (1) TABLET BY MOUTH IN THE MORNING. [facility] TIZANIDINE 2 mg tablet 2-13 00:00: 00 06-28 00:00 :00 No [id number] TAKE ONE (1) TABLET(S) BY MOUTH EVERY EIGHT HOURS NEEDED FOR MUSCLE SPASMS. [facility] TIZANIDINE 2 mg tablet 1-15 00:00: 00 Yes [id number] TAKE ONE (1) TABLET(S) BY MOUTH EVERY EIGHT HOURS NEEDED FOR MUSCLE SPASMS. [facility] pantoprazol e 20 mg EC tablet 1-15 00:00: 00 02-20 00:00 :00 No [id number] TAKE ONE (1) TABLET(S) BY MOUTH ONCE A DAY. [facility] DULOXETINE 20 mg capsule 2022-04 2-18 00:00: 00 09-18 00:00 :00 No [id number] TAKE ONE (1) CAPSULE BY MOUTH IN THE MORNING AND 1 CAPSULE IN THE EVENING. [facility] meloxicam 7.5 mg tablet 2022-04 2-18 00:00: 00 06-18 00:00 :00 No [id number] 103 TAKE ONE (1) TABLET BY MOUTH IN THE MORNING. [facility] tiZANidine 2 mg tablet 2022-04 2-14 00:00: 00 05-01 00:00 :00 No [id number] TAKE ONE (1) TABLET(S) BY MOUTH EVERY EIGHT HOURS NEEDED FOR MUSCLE SPASMS. [facility] PANTOPRAZOL E 20 mg EC tablet 2022-04 00:00: 00 05-01 00:00 :00 No [id number] TAKE ONE (1) TABLET(S) BY MOUTH ONCE A DAY. [facility] meloxicam 7.5 mg tablet 01-13 00:00: 00 04-03 00:00 :00 No [id number] 103 TAKE ONE (1) TABLET BY MOUTH IN THE MORNING. [facility] Melatonin 5 mg Cap 01-04 00:00: 00 01-29 00:00 :00 No [id number] 1{capsu le} Take 1 capsule by mouth at bedtime as needed for Insomnia. [facility] metoprolol succinate XL 25 mg 24 hr tablet 01-04 00:00: 00 09-11 00:00 :00 No [id number] 25mg Take 1 tablet by mouth in the morning. [facility] levothyroxi ne 25 mcg tablet 01-04 00:00: 00 09-05 00:00 :00 No [id number] TAKE ONE (1) TABLET BY MOUTH EVERY MORNING. [facility] amitriptyli ne 10 mg tablet 01-04 00:00: 00 07-31 00:00 :00 No [id number] 10mg Take 1 tablet by mouth at bedtime. [facility] losartan 50 mg tablet 01-04 00:00: 00 07-30 00:00 :00 No [id number] 50mg Take 1 tablet by mouth in the morning. [facility] MELOXICAM 7.5 mg tablet 12-29 00:00: 00 01-13 00:00 :00 No [id number] 103 TAKE ONE (1) TABLET BY MOUTH IN THE MORNING. [facility] PANTOPRAZOL E 20 mg EC tablet 12-20 00:00: 00 Yes [id number] TAKE ONE (1) TABLET(S) BY MOUTH ONCE A DAY. [facility] LEVOTHYROXI NE 25 mcg tablet 12-20 00:00: 00 01-04 00:00 :00 No [id number] TAKE ONE (1) TABLET BY MOUTH EVERY MORNING. [facility] acetaminoph en (TYLENOL) tablet 1,000 mg 12-01 18:45: 00 12-01 18:30 :00 No 1000mg 1,000 mg, Oral, ONCE, 1 dose, On Mon12/01/22 at 1345, Routine [facility] LEVOTHYROXI NE 25 mcg tablet 11-21 00:00: 00 12-20 00:00 :00 No [id number] TAKE ONE (1) TABLET BY MOUTH EVERY MORNING. [facility] tirzepatide (MOUNJARO) 5 mg/0.5 mL PnIj 11-16 00:00: 00 03-21 00:00 :00 No [id number] 5mg inject 5 mg under the skin weekly. [facility] PANTOPRAZOL E 20 mg EC tablet 10-21 00:00: 00 12-20 00:00 :00 No [id number] TAKE ONE (1) TABLET(S) BY MOUTH ONCE A DAY. [facility] LEVOTHYROXI NE 25 mcg tablet 10-21 00:00: 00 11-21 00:00 :00 No [id number] TAKE ONE (1) TABLET BY MOUTH EVERY MORNING. [facility] losartan 50 mg tablet 10-13 00:00: 00 01-04 00:00 :00 No [id number] 50mg Take 1 tablet by mouth in the morning. [facility] metoprolol succinate XL 25 mg 24 hr tablet 10-13 00:00: 00 01-04 00:00 :00 No [id number] 25mg Take 1 tablet by mouth in the morning. [facility] gadoteridol (PROHANCE-2 0 mL) injection 0.2 mL/kg 10-12 21:15: 00 10-12 21:14 :00 No [id number] .2mL/kg 0.2 mL/kg, Intravenou s, ONCE, 1 dose, On Mon10/12/22 at 1615, Routine [facility] FLUOXETINE 20 mg capsule 10-07 00:00: 00 01-04 00:00 :00 No [id number] TAKE ONE (1) CAPSULE(S) BY MOUTH IN THE MORNING. [facility] ketorolac (TORADOL) injection 60 mg 10-04 22:30: 00 10-04 22:02 :00 No [id number] 60mg [facility] cloNIDine (CATAPRES) tablet 0.2 mg 10-04 22:30: 00 10-04 22:00 :40 No [id number] .2mg [facility] DULoxetine 20 mg capsule 10-04 00:00: 00 04-03 00:00 :00 No [id number] 20mg Take 1 capsule by mouth in the morning and 1 capsule in the evening. [facility] tiZANidine 2 mg tablet 10-04 00:00: 00 03-30 00:00 :00 No [id number] 2mg Take 1 tablet by mouth every 8 (eight) hours as needed (muscle spasms). [facility] tirzepatide (MOUNJARO) 5 mg/0.5 mL PnIj 10-04 00:00: 00 11-11 00:00 :00 No [id number] 5mg inject 5 mg under the skin weekly. [facility] losartan-hy drochloroth iazide 50-12.5 mg per tablet 10-04 00:00: 00 10-13 00:00 :00 No [id number] 1{tbl} Take 1 tablet by mouth in the morning. [facility] iopamidol (ISOVUE 370-500 mL) injection 80 mL 09-28 20:15: 00 09-28 20:15 :00 No [id number] 80mL 80 mL, Intravenou s, ONCE, 1 dose, On Mon09/28/22 at 1515, Routine [facility] NaCl 0.9% (NS) bolus infusion 1,000 mL 09-28 19:15: 00 09-28 21:35 :00 No 1000mL at 999 mL/hr, 1,000 mL, IV Infusion, ONCE, 1 dose, On Mon09/28/22 at 1415, JACQUI [facility] ondansetron (ZOFRAN (PF)) injection 4 mg 09-28 18:30: 00 09-28 19:03 :00 No 4mg 4 mg, Slow IV Push, ONCE, 1 dose, On Mon09/28/22 at 1330, JACQUI [facility] morpHINE (4 mg/mL) injection 4 mg 09-28 18:30: 00 09-28 19:03 :00 No 4mg 4 mg, Slow IV Push, ONCE, 1 dose, On Mon09/28/22 at 1330, STAT [facility] FLUOXETINE 20 mg capsule 09-21 00:00: 00 10-04 00:00 :00 No [id number] TAKE ONE (1) CAPSULE BY MOUTH IN THE MORNING. [facility] MELOXICAM 7.5 mg tablet 09-19 00:00: 00 12-29 00:00 :00 No [id number] 103 TAKE ONE (1) TABLET BY MOUTH IN THE MORNING. [facility] LEVOTHYROXI NE 25 mcg tablet 09-19 00:00: 00 10-21 00:00 :00 No [id number] TAKE ONE (1) TABLET BY MOUTH EVERY MORNING. [facility] MOUNJARO 5 mg/0.5 mL PnIj 10 00:00: 00 10-04 00:00 :00 No [id number] INJECT FIVE (5) MG INTO SKIN ONCE WEEKLY. [facility] FLUOXETINE 20 mg capsule 10 00:00: 00 09-21 00:00 :00 No [id number] TAKE ONE (1) CAPSULE BY MOUTH IN THE MORNING. [facility] PANTOPRAZOL E 20 mg EC tablet 00:00: 00 10-21 00:00 :00 No [id number] TAKE ONE (1) TABLET(S) BY MOUTH ONCE A DAY. [facility] LEVOTHYROXI NE 25 mcg tablet - 00:00: 00 09-19 00:00 :00 No [id number] TAKE ONE (1) TABLET BY MOUTH EVERY MORNING. [facility] LEVOTHYROXI NE 25 mcg tablet 4- 00:00: 00 Yes [id number] TAKE ONE (1) TABLET BY MOUTH EVERY MORNING. [facility] MOUNJARO 5 mg/0.5 mL PnIj - 00:00: 00 08-24 00:00 :00 No [id number] INJECT FIVE (5) MG SUBCUTANEO USLY WEEKLY. [facility] LEVOTHYROXI NE 25 mcg tablet - 00:00: 00 07-21 00:00 :00 No [id number] TAKE ONE (1) TABLET BY MOUTH EVERY MORNING. [facility] MOUNJARO 5 mg/0.5 mL PnIj 2- 00:00: 00 07-07 00:00 :00 No [id number] INJECT FIVE (5) MG SUBCUTANEO USLY WEEKLY. [facility] PANTOPRAZOL E 20 mg EC tablet 06-09 00:00: 00 08-17 00:00 :00 No [id number] TAKE ONE (1) TABLET(S) BY MOUTH ONCE A DAY. [facility] losartan-hy drochloroth iazide 50-12.5 mg per tablet -17 00:00: 00 10-04 00:00 :00 No [id number] 1{tbl} Take 1 tablet by mouth in the morning. [facility] LOSARTAN-HY DROCHLOROTH IAZIDE 50-12.5 mg per tablet 2-13 00:00: 00 06-03 00:00 :00 No [id number] TAKE ONE (1) TABLET(S) BY MOUTH ONCE A DAY. [facility] tirzepatide (MOUNJARO) 5 mg/0.5 mL PnIj - 00:00: 00 06-13 00:00 :00 No [id number] 5mg inject 5 mg under the skin weekly. [facility] PANTOPRAZOL E 20 mg EC tablet 2021-04 00:00: 00 06-09 00:00 :00 No [id number] TAKE ONE (1) TABLET(S) BY MOUTH ONCE A DAY. [facility] LOSARTAN-HY DROCHLOROTH IAZIDE 50-12.5 mg per tablet 2021-04 00:00: 00 05-30 00:00 :00 No [id number] TAKE ONE (1) TABLET(S) BY MOUTH ONCE A DAY. [facility] ondansetron (ZOFRAN (PF)) injection 4 mg 2021-04 13:45: 00 02-03 13:42 :00 No 4mg 4 mg, Slow IV Push, ONCE, 1 dose, On Judi 02/03/22 at 0845, JACQUI [facility] ondansetron 4 mg disintegrat ing tablet 2021-04 00:00: 00 Yes [id number] 4mg Take 1 tablet by mouth every 8 (eight) hours as needed for Nausea and Vomiting (N/V). [facility] LOSARTAN-HY DROCHLOROTH IAZIDE 50-12.5 mg per tablet 2021-04 00:00: 00 03-30 00:00 :00 No [id number] TAKE ONE (1) TABLET(S) BY MOUTH ONCE A DAY. [facility] meloxicam 7.5 mg tablet 2021-04 16:54: 23 01-27 00:00 :00 No 7.5mg Take 7.5 mg by mouth in the morning. [facility] amitriptyli ne 10 mg tablet 2021-04 00:00: 00 01-04 00:00 :00 No [id number] 103 10mg Take 1 tablet by mouth at bedtime. [facility] doxycycline hyclate 100 mg tablet 2021-04 00:00: 00 10-04 00:00 :00 No [id number] 100mg Take 1 tablet by mouth in the morning and 1 tablet in the evening. [facility] tiZANidine 2 mg tablet 2021-04 00:00: 00 10-04 00:00 :00 No [id number] 103 2mg Take 1 tablet by mouth at bedtime as needed (muscle spasms). [facility] meloxicam 7.5 mg tablet 2021-04 00:00: 00 09-19 00:00 :00 No [id number] 103 7.5mg Take 1 tablet by mouth in the morning. [facility] FLUoxetine 20 mg capsule 2021-04 00:00: 00 08-24 00:00 :00 No [id number] 20mg Take 1 capsule by mouth in the morning. [facility] tirzepatide (MOUNJARO) 2.5 mg/0.5 mL PnIj 2021-04 00:00: 00 05-12 00:00 :00 No [id number] 2.5mg inject 2.5 mg under the skin weekly. Start 2.5mg SC qWeek x 4 Weeks, then increase to 5 mg SC qWeek [facility] TRULICITY 0.75 mg/0.5 mL PnIj 12-27 00:00: 00 01-27 00:00 :00 No [id number] .75mg INJECT 0.75 MG UNDER THE SKIN WEEKLY. [facility] meloxicam 7.5 mg tablet 12-23 15:52: 42 Yes 7.5mg Take 7.5 mg by mouth in the morning. [facility] Diclofenac Sodium (VOLTAREN) 1 % gel 12-23 00:00: 00 Yes [id number] Apply to area(s) 4 (four) times daily. Apply 4 g QID on affected areas [facility] acetaminoph en 650 mg CR tablet 12-23 00:00: 00 Yes [id number] 650mg Take 1 tablet by mouth every 8 (eight) hours as needed for Pain or Fever. [facility] doxycycline hyclate 100 mg tablet 12-23 00:00: 00 01-27 00:00 :00 No [id number] 100mg Take 1 tablet by mouth in the morning and 1 tablet in the evening. [facility] LEVOTHYROXI NE 25 mcg tablet 12-22 00:00: 00 06-23 00:00 :00 No [id number] TAKE ONE (1) TABLET BY MOUTH EVERY MORNING. [facility] lidocaine 5 % ointment 12-08 00:00: 00 Yes [id number] Apply 2g to affected areas BID PRN [facility] adalimumab 40 mg/0.4 mL injection 12-08 00:00: 00 01-09 00:00 :00 No [id number] Start 160mg SC x 1 on Day 1, then 80mg SC x 1 on day 15, then 40mg SC qWeek. [facility] amitriptyli ne 10 mg tablet 12-08 00:00: 00 01-27 00:00 :00 No [id number] 10mg Take 1 tablet by mouth at bedtime. [facility] tiZANidine 2 mg tablet 12-08 00:00: 00 01-27 00:00 :00 No [id number] 2mg Take 1 tablet by mouth every 8 (eight) hours as needed (muscle spasms). [facility] LOSARTAN-HY DROCHLOROTH IAZIDE 50-12.5 mg per tablet 11-26 00:00: 00 02-02 00:00 :00 No [id number] TAKE ONE (1) TABLET(S) BY MOUTH ONCE A DAY. [facility] FLUoxetine 20 mg capsule 17 00:00: 00 01-27 00:00 :00 No [id number] 20mg Take 1 capsule by mouth daily. [facility] PANTOPRAZOL E 20 mg EC tablet 2022-0 4-08 00:00: 04-13 00:00 :00 No [id number] TAKE ONE (1) TABLET(S) BY MOUTH ONCE A DAY. [facility] dulaglutide (TRULICITY) 1.5 mg/0.5 mL PnIj 06-23 00:00: 00 01-27 00:00 :00 No [id number] 1.5mg inject 1.5 mg under the skin weekly. [facility] dulaglutide (TRULICITY) 0.75 mg/0.5 mL PnIj 06-23 00:00: 00 12-27 00:00 :00 No [id number] .75mg inject 0.75 mg under the skin weekly. [facility] levothyroxi ne 25 mcg tablet 2020-04 00:00: 00 05-05 00:00 :00 No [id number] 25ug Take 1 tablet by mouth every morning. [facility] losartan-hy drochloroth iazide 50-12.5 mg per tablet 2020-04 0-06 00:00: 00 07-26 00:00 :00 No [id number] 1{tbl} Take 1 tablet by mouth daily. [facility] FLUoxetine 10 mg capsule 2020-04 0-06 00:00: 00 05-05 00:00 :00 No [id number] 10mg Take 1 capsule by mouth daily. [facility] pantoprazol e 20 mg EC tablet 2020-04 0- 00:00: 00 04-20 00:00 :00 No [id number] 20mg Take 1 tablet by mouth daily. [facility] hydrOXYzine 50 mg tablet 2019-04 0-06 00:00: 00 12-23 00:00 :00 No [id number] 50mg Take 1 tablet by mouth every 8 (eight) hours as needed for Anxiety. [facility] vitamin C with jacob hips (VITAMIN C) 1,000 mg tablet 16 00:00: 00 01-29 00:00 :00 No [id number] 1000mg Take 1 tablet by mouth daily. [facility] Cholecalcif david, Vitamin D3, (VITAMIN D3) 125 mcg (5,000 unit) tablet 2019-0 - 00:00: 00 01-27 00:00 :00 No [id number] 5000U Take 1 tablet by mouth daily. [facility] Immunizations Ordered Immunization Name Filled Immunization Name Date Status Comments Source Influenza Virus Vaccine 2021-01-29 00:00:00 Completed [facility] Influenza Virus Vaccine 2021-01-29 00:00:00 Completed [facility] Influenza Virus Vaccine 2021-01-29 00:00:00 Completed [facility] Influenza Virus Vaccine 2021-01-29 00:00:00 Completed [facility] Influenza Virus Vaccine 2021-01-29 00:00:00 Completed [facility] Influenza Virus Vaccine 2021-01-29 00:00:00 Completed [facility] Influenza Virus Vaccine 2021-01-29 00:00:00 Completed [facility] Influenza Virus Vaccine 2021-01-29 00:00:00 Completed [facility] Influenza Virus Vaccine 2021-01-29 00:00:00 Completed [facility] Influenza Virus Vaccine 2021-01-29 00:00:00 Completed [facility] Influenza Virus Vaccine 2021-01-29 00:00:00 Completed [facility] Influenza Virus Vaccine 2021-01-29 00:00:00 Completed [facility] Influenza Virus Vaccine 2021-01-29 00:00:00 Completed [facility] Influenza Virus Vaccine 2021-01-29 00:00:00 Completed [facility] Influenza Virus Vaccine 2021-01-29 00:00:00 Completed [facility] Influenza Virus Vaccine 2021-01-29 00:00:00 Completed [facility] Influenza Virus Vaccine 2021-01-29 00:00:00 Completed [facility] Influenza Virus Vaccine 2021-01-29 00:00:00 Completed [facility] Influenza Virus Vaccine 2021-01-29 00:00:00 Completed [facility] Influenza Virus Vaccine 2021-01-29 00:00:00 Completed [facility] Influenza Virus Vaccine 2021-01-29 00:00:00 Completed [facility] Influenza Virus Vaccine 2021-01-29 00:00:00 Completed [facility] Influenza Virus Vaccine 2021-01-29 00:00:00 Completed [facility] Influenza Virus Vaccine 2021-01-29 00:00:00 Completed [facility] Influenza Virus Vaccine 2021-01-29 00:00:00 Completed [facility] Influenza Virus Vaccine 2021-01-29 00:00:00 Completed [facility] Influenza Virus Vaccine 2021-01-29 00:00:00 Completed [facility] Influenza Virus Vaccine 2021-01-29 00:00:00 Completed [facility] Influenza Virus Vaccine 2021-01-29 00:00:00 Completed [facility] Influenza Virus Vaccine 2021-01-29 00:00:00 Completed [facility] Influenza Virus Vaccine 2021-01-29 00:00:00 Completed [facility] Influenza Virus Vaccine 2021-01-29 00:00:00 Completed [facility] Influenza Virus Vaccine 2021-01-29 00:00:00 Completed [facility] Influenza Virus Vaccine 2021-01-29 00:00:00 Completed [facility] Influenza Virus Vaccine 2021-01-29 00:00:00 Completed [facility] Influenza Virus Vaccine 2021-01-29 00:00:00 Completed [facility] Influenza Virus Vaccine 2021-01-29 00:00:00 Completed [facility] Influenza Virus Vaccine 2021-01-29 00:00:00 Completed [facility] Influenza Virus Vaccine 2021-01-29 00:00:00 Completed [facility] Influenza Virus Vaccine 2021-01-29 00:00:00 Completed [facility] Influenza Virus Vaccine 2021-01-29 00:00:00 Completed [facility] Influenza Virus Vaccine 2021-01-29 00:00:00 Completed [facility] Influenza Virus Vaccine 2021-01-29 00:00:00 Completed [facility] Influenza Virus Vaccine 2021-01-29 00:00:00 Completed [facility] Influenza Virus Vaccine 2021-01-29 00:00:00 Completed [facility] Influenza Virus Vaccine 2021-01-29 00:00:00 Completed [facility] Influenza Virus Vaccine 2021-01-29 00:00:00 Completed [facility] Influenza Virus Vaccine 2021-01-29 00:00:00 Completed [facility] Influenza Virus Vaccine 2021-01-29 00:00:00 Completed [facility] Influenza Virus Vaccine 2021-01-29 00:00:00 Completed [facility] Influenza Virus Vaccine 2021-01-29 00:00:00 Completed [facility] Influenza Virus Vaccine 2021-01-29 00:00:00 Completed [facility] Influenza Virus Vaccine 2021-01-29 00:00:00 Completed [facility] Influenza Virus Vaccine 2021-01-29 00:00:00 Completed [facility] Influenza Virus Vaccine 2021-01-29 00:00:00 Completed [facility] Influenza Virus Vaccine 2021-01-29 00:00:00 Completed [facility] SARS-COV-2 COVID-19 PFIZER VACCINE 2020-12-11 00:00:00 Completed [facility] SARS-COV-2 COVID-19 PFIZER VACCINE 2020-12-11 00:00:00 Completed [facility] SARS-COV-2 COVID-19 PFIZER VACCINE 2020-12-11 00:00:00 Completed [facility] SARS-COV-2 COVID-19 PFIZER VACCINE 2020-12-11 00:00:00 Completed [facility] SARS-COV-2 COVID-19 PFIZER VACCINE 2020-12-11 00:00:00 Completed [facility] SARS-COV-2 COVID-19 PFIZER VACCINE 2020-12-11 00:00:00 Completed [facility] SARS-COV-2 COVID-19 PFIZER VACCINE 2020-12-11 00:00:00 Completed [facility] SARS-COV-2 COVID-19 PFIZER VACCINE 2020-12-11 00:00:00 Completed [facility] SARS-COV-2 COVID-19 PFIZER VACCINE 2020-12-11 00:00:00 Completed [facility] SARS-COV-2 COVID-19 PFIZER VACCINE 2020-12-11 00:00:00 Completed [facility] SARS-COV-2 COVID-19 PFIZER VACCINE 2020-12-11 00:00:00 Completed [facility] SARS-COV-2 COVID-19 PFIZER VACCINE 2020-12-11 00:00:00 Completed [facility] SARS-COV-2 COVID-19 PFIZER VACCINE 2020-12-11 00:00:00 Completed [facility] SARS-COV-2 COVID-19 PFIZER VACCINE 2020-12-11 00:00:00 Completed [facility] SARS-COV-2 COVID-19 PFIZER VACCINE 2020-12-11 00:00:00 Completed [facility] SARS-COV-2 COVID-19 PFIZER VACCINE 2020-12-11 00:00:00 Completed [facility] SARS-COV-2 COVID-19 PFIZER VACCINE 2020-12-11 00:00:00 Completed [facility] SARS-COV-2 COVID-19 PFIZER VACCINE 2020-12-11 00:00:00 Completed [facility] SARS-COV-2 COVID-19 PFIZER VACCINE 2020-12-11 00:00:00 Completed [facility] SARS-COV-2 COVID-19 PFIZER VACCINE 2020-12-11 00:00:00 Completed [facility] SARS-COV-2 COVID-19 PFIZER VACCINE 2020-12-11 00:00:00 Completed [facility] SARS-COV-2 COVID-19 PFIZER VACCINE 2020-12-11 00:00:00 Completed [facility] SARS-COV-2 COVID-19 PFIZER VACCINE 2020-12-11 00:00:00 Completed [facility] SARS-COV-2 COVID-19 PFIZER VACCINE 2020-12-11 00:00:00 Completed [facility] SARS-COV-2 COVID-19 PFIZER VACCINE 2020-12-11 00:00:00 Completed [facility] SARS-COV-2 COVID-19 PFIZER VACCINE 2020-12-11 00:00:00 Completed [facility] SARS-COV-2 COVID-19 PFIZER VACCINE 2020-12-11 00:00:00 Completed [facility] SARS-COV-2 COVID-19 PFIZER VACCINE 2020-12-11 00:00:00 Completed [facility] SARS-COV-2 COVID-19 PFIZER VACCINE 2020-12-11 00:00:00 Completed [facility] SARS-COV-2 COVID-19 PFIZER VACCINE 2020-12-11 00:00:00 Completed [facility] SARS-COV-2 COVID-19 PFIZER VACCINE 2020-12-11 00:00:00 Completed [facility] SARS-COV-2 COVID-19 PFIZER VACCINE 2020-12-11 00:00:00 Completed [facility] SARS-COV-2 COVID-19 PFIZER VACCINE 2020-12-11 00:00:00 Completed [facility] SARS-COV-2 COVID-19 PFIZER VACCINE 2020-12-11 00:00:00 Completed [facility] SARS-COV-2 COVID-19 PFIZER VACCINE 2020-12-11 00:00:00 Completed [facility] SARS-COV-2 COVID-19 PFIZER VACCINE 2020-12-11 00:00:00 Completed [facility] SARS-COV-2 COVID-19 PFIZER VACCINE 2020-12-11 00:00:00 Completed [facility] SARS-COV-2 COVID-19 PFIZER VACCINE 2020-12-11 00:00:00 Completed [facility] SARS-COV-2 COVID-19 PFIZER VACCINE 2020-12-11 00:00:00 Completed [facility] SARS-COV-2 COVID-19 PFIZER VACCINE 2020-12-11 00:00:00 Completed [facility] SARS-COV-2 COVID-19 PFIZER VACCINE 2020-12-11 00:00:00 Completed [facility] SARS-COV-2 COVID-19 PFIZER VACCINE 2020-12-11 00:00:00 Completed [facility] SARS-COV-2 COVID-19 PFIZER VACCINE 2020-12-11 00:00:00 Completed [facility] SARS-COV-2 COVID-19 PFIZER VACCINE 2020-12-11 00:00:00 Completed [facility] SARS-COV-2 COVID-19 PFIZER VACCINE 2020-12-11 00:00:00 Completed [facility] SARS-COV-2 COVID-19 PFIZER VACCINE 2020-12-11 00:00:00 Completed [facility] SARS-COV-2 COVID-19 PFIZER VACCINE 2020-12-11 00:00:00 Completed [facility] SARS-COV-2 COVID-19 PFIZER VACCINE 2020-12-11 00:00:00 Completed [facility] SARS-COV-2 COVID-19 PFIZER VACCINE 2020-12-11 00:00:00 Completed [facility] SARS-COV-2 COVID-19 PFIZER VACCINE 2020-12-11 00:00:00 Completed [facility] SARS-COV-2 COVID-19 PFIZER VACCINE 2020-12-11 00:00:00 Completed [facility] SARS-COV-2 COVID-19 PFIZER VACCINE 2020-12-11 00:00:00 Completed [facility] SARS-COV-2 COVID-19 PFIZER VACCINE 2020-12-11 00:00:00 Completed [facility] SARS-COV-2 COVID-19 PFIZER VACCINE 2020-12-11 00:00:00 Completed [facility] SARS-COV-2 COVID-19 PFIZER VACCINE 2020-12-11 00:00:00 Completed [facility] SARS-COV-2 COVID-19 PFIZER VACCINE 2020-12-11 00:00:00 Completed [facility] SARS-COV-2 COVID-19 PFIZER VACCINE 2020-11-14 00:00:00 Completed [facility] SARS-COV-2 COVID-19 PFIZER VACCINE 2020-11-14 00:00:00 Completed [facility] SARS-COV-2 COVID-19 PFIZER VACCINE 2020-11-14 00:00:00 Completed [facility] SARS-COV-2 COVID-19 PFIZER VACCINE 2020-11-14 00:00:00 Completed [facility] SARS-COV-2 COVID-19 PFIZER VACCINE 2020-11-14 00:00:00 Completed [facility] SARS-COV-2 COVID-19 PFIZER VACCINE 2020-11-14 00:00:00 Completed [facility] SARS-COV-2 COVID-19 PFIZER VACCINE 2020-11-14 00:00:00 Completed [facility] SARS-COV-2 COVID-19 PFIZER VACCINE 2020-11-14 00:00:00 Completed [facility] SARS-COV-2 COVID-19 PFIZER VACCINE 2020-11-14 00:00:00 Completed [facility] SARS-COV-2 COVID-19 PFIZER VACCINE 2020-11-14 00:00:00 Completed [facility] SARS-COV-2 COVID-19 PFIZER VACCINE 2020-11-14 00:00:00 Completed [facility] SARS-COV-2 COVID-19 PFIZER VACCINE 2020-11-14 00:00:00 Completed [facility] SARS-COV-2 COVID-19 PFIZER VACCINE 2020-11-14 00:00:00 Completed [facility] SARS-COV-2 COVID-19 PFIZER VACCINE 2020-11-14 00:00:00 Completed [facility] SARS-COV-2 COVID-19 PFIZER VACCINE 2020-11-14 00:00:00 Completed [facility] SARS-COV-2 COVID-19 PFIZER VACCINE 2020-11-14 00:00:00 Completed [facility] SARS-COV-2 COVID-19 PFIZER VACCINE 2020-11-14 00:00:00 Completed [facility] SARS-COV-2 COVID-19 PFIZER VACCINE 2020-11-14 00:00:00 Completed [facility] SARS-COV-2 COVID-19 PFIZER VACCINE 2020-11-14 00:00:00 Completed [facility] SARS-COV-2 COVID-19 PFIZER VACCINE 2020-11-14 00:00:00 Completed [facility] SARS-COV-2 COVID-19 PFIZER VACCINE 2020-11-14 00:00:00 Completed [facility] SARS-COV-2 COVID-19 PFIZER VACCINE 2020-11-14 00:00:00 Completed [facility] SARS-COV-2 COVID-19 PFIZER VACCINE 2020-11-14 00:00:00 Completed [facility] SARS-COV-2 COVID-19 PFIZER VACCINE 2020-11-14 00:00:00 Completed [facility] SARS-COV-2 COVID-19 PFIZER VACCINE 2020-11-14 00:00:00 Completed [facility] SARS-COV-2 COVID-19 PFIZER VACCINE 2020-11-14 00:00:00 Completed [facility] SARS-COV-2 COVID-19 PFIZER VACCINE 2020-11-14 00:00:00 Completed [facility] SARS-COV-2 COVID-19 PFIZER VACCINE 2020-11-14 00:00:00 Completed [facility] SARS-COV-2 COVID-19 PFIZER VACCINE 2020-11-14 00:00:00 Completed [facility] SARS-COV-2 COVID-19 PFIZER VACCINE 2020-11-14 00:00:00 Completed [facility] SARS-COV-2 COVID-19 PFIZER VACCINE 2020-11-14 00:00:00 Completed [facility] SARS-COV-2 COVID-19 PFIZER VACCINE 2020-11-14 00:00:00 Completed [facility] SARS-COV-2 COVID-19 PFIZER VACCINE 2020-11-14 00:00:00 Completed [facility] SARS-COV-2 COVID-19 PFIZER VACCINE 2020-11-14 00:00:00 Completed [facility] SARS-COV-2 COVID-19 PFIZER VACCINE 2020-11-14 00:00:00 Completed [facility] SARS-COV-2 COVID-19 PFIZER VACCINE 2020-11-14 00:00:00 Completed [facility] SARS-COV-2 COVID-19 PFIZER VACCINE 2020-11-14 00:00:00 Completed [facility] SARS-COV-2 COVID-19 PFIZER VACCINE 2020-11-14 00:00:00 Completed [facility] SARS-COV-2 COVID-19 PFIZER VACCINE 2020-11-14 00:00:00 Completed [facility] SARS-COV-2 COVID-19 PFIZER VACCINE 2020-11-14 00:00:00 Completed [facility] SARS-COV-2 COVID-19 PFIZER VACCINE 2020-11-14 00:00:00 Completed [facility] SARS-COV-2 COVID-19 PFIZER VACCINE 2020-11-14 00:00:00 Completed [facility] SARS-COV-2 COVID-19 PFIZER VACCINE 2020-11-14 00:00:00 Completed [facility] SARS-COV-2 COVID-19 PFIZER VACCINE 2020-11-14 00:00:00 Completed [facility] SARS-COV-2 COVID-19 PFIZER VACCINE 2020-11-14 00:00:00 Completed [facility] SARS-COV-2 COVID-19 PFIZER VACCINE 2020-11-14 00:00:00 Completed [facility] SARS-COV-2 COVID-19 PFIZER VACCINE 2020-11-14 00:00:00 Completed [facility] SARS-COV-2 COVID-19 PFIZER VACCINE 2020-11-14 00:00:00 Completed [facility] SARS-COV-2 COVID-19 PFIZER VACCINE 2020-11-14 00:00:00 Completed [facility] SARS-COV-2 COVID-19 PFIZER VACCINE 2020-11-14 00:00:00 Completed [facility] SARS-COV-2 COVID-19 PFIZER VACCINE 2020-11-14 00:00:00 Completed [facility] SARS-COV-2 COVID-19 PFIZER VACCINE 2020-11-14 00:00:00 Completed [facility] SARS-COV-2 COVID-19 PFIZER VACCINE 2020-11-14 00:00:00 Completed [facility] SARS-COV-2 COVID-19 PFIZER VACCINE 2020-11-14 00:00:00 Completed [facility] SARS-COV-2 COVID-19 PFIZER VACCINE 2020-11-14 00:00:00 Completed [facility] SARS-COV-2 COVID-19 PFIZER VACCINE 2020-11-14 00:00:00 Completed [facility] TDAP 2019-01-14 00:00:00 Completed [facility] Influenza Virus Vaccine Quad .5 mL IM 6+ MO 2019-01-14 00:00:00 Completed [facility] TDAP 2019-01-14 00:00:00 Completed [facility] Influenza Virus Vaccine Quad .5 mL IM 6+ MO 2019-01-14 00:00:00 Completed [facility] TDAP 2019-01-14 00:00:00 Completed [facility] Influenza Virus Vaccine Quad .5 mL IM 6+ MO 2019-01-14 00:00:00 Completed [facility] TDAP 2019-01-14 00:00:00 Completed [facility] Influenza Virus Vaccine Quad .5 mL IM 6+ MO 2019-01-14 00:00:00 Completed [facility] TDAP 2019-01-14 00:00:00 Completed [facility] Influenza Virus Vaccine Quad .5 mL IM 6+ MO 2019-01-14 00:00:00 Completed [facility] TDAP 2019-01-14 00:00:00 Completed [facility] Influenza Virus Vaccine Quad .5 mL IM 6+ MO 2019-01-14 00:00:00 Completed [facility] TDAP 2019-01-14 00:00:00 Completed [facility] Influenza Virus Vaccine Quad .5 mL IM 6+ MO 2019-01-14 00:00:00 Completed [facility] TDAP 2019-01-14 00:00:00 Completed [facility] Influenza Virus Vaccine Quad .5 mL IM 6+ MO 2019-01-14 00:00:00 Completed [facility] TDAP 2019-01-14 00:00:00 Completed [facility] Influenza Virus Vaccine Quad .5 mL IM 6+ MO 2019-01-14 00:00:00 Completed [facility] TDAP 2019-01-14 00:00:00 Completed [facility] Influenza Virus Vaccine Quad .5 mL IM 6+ MO 2019-01-14 00:00:00 Completed [facility] TDAP 2019-01-14 00:00:00 Completed [facility] Influenza Virus Vaccine Quad .5 mL IM 6+ MO 2019-01-14 00:00:00 Completed [facility] TDAP 2019-01-14 00:00:00 Completed [facility] Influenza Virus Vaccine Quad .5 mL IM 6+ MO 2019-01-14 00:00:00 Completed [facility] TDAP 2019-01-14 00:00:00 Completed [facility] Influenza Virus Vaccine Quad .5 mL IM 6+ MO 2019-01-14 00:00:00 Completed [facility] TDAP 2019-01-14 00:00:00 Completed [facility] Influenza Virus Vaccine Quad .5 mL IM 6+ MO 2019-01-14 00:00:00 Completed [facility] TDAP 2019-01-14 00:00:00 Completed [facility] Influenza Virus Vaccine Quad .5 mL IM 6+ MO 2019-01-14 00:00:00 Completed [facility] TDAP 2019-01-14 00:00:00 Completed [facility] Influenza Virus Vaccine Quad .5 mL IM 6+ MO 2019-01-14 00:00:00 Completed [facility] TDAP 2019-01-14 00:00:00 Completed [facility] Influenza Virus Vaccine Quad .5 mL IM 6+ MO 2019-01-14 00:00:00 Completed [facility] TDAP 2019-01-14 00:00:00 Completed [facility] Influenza Virus Vaccine Quad .5 mL IM 6+ MO 2019-01-14 00:00:00 Completed [facility] TDAP 2019-01-14 00:00:00 Completed [facility] Influenza Virus Vaccine Quad .5 mL IM 6+ MO 2019-01-14 00:00:00 Completed [facility] TDAP 2019-01-14 00:00:00 Completed [facility] Influenza Virus Vaccine Quad .5 mL IM 6+ MO 2019-01-14 00:00:00 Completed [facility] TDAP 2019-01-14 00:00:00 Completed [facility] Influenza Virus Vaccine Quad .5 mL IM 6+ MO 2019-01-14 00:00:00 Completed [facility] TDAP 2019-01-14 00:00:00 Completed [facility] Influenza Virus Vaccine Quad .5 mL IM 6+ MO 2019-01-14 00:00:00 Completed [facility] TDAP 2019-01-14 00:00:00 Completed [facility] Influenza Virus Vaccine Quad .5 mL IM 6+ MO 2019-01-14 00:00:00 Completed [facility] TDAP 2019-01-14 00:00:00 Completed [facility] Influenza Virus Vaccine Quad .5 mL IM 6+ MO 2019-01-14 00:00:00 Completed [facility] TDAP 2019-01-14 00:00:00 Completed [facility] Influenza Virus Vaccine Quad .5 mL IM 6+ MO 2019-01-14 00:00:00 Completed [facility] TDAP 2019-01-14 00:00:00 Completed [facility] Influenza Virus Vaccine Quad .5 mL IM 6+ MO 2019-01-14 00:00:00 Completed [facility] TDAP 2019-01-14 00:00:00 Completed [facility] Influenza Virus Vaccine Quad .5 mL IM 6+ MO 2019-01-14 00:00:00 Completed [facility] TDAP 2019-01-14 00:00:00 Completed [facility] Influenza Virus Vaccine Quad .5 mL IM 6+ MO 2019-01-14 00:00:00 Completed [facility] TDAP 2019-01-14 00:00:00 Completed [facility] Influenza Virus Vaccine Quad .5 mL IM 6+ MO 2019-01-14 00:00:00 Completed [facility] TDAP 2019-01-14 00:00:00 Completed [facility] Influenza Virus Vaccine Quad .5 mL IM 6+ MO 2019-01-14 00:00:00 Completed [facility] TDAP 2019-01-14 00:00:00 Completed [facility] Influenza Virus Vaccine Quad .5 mL IM 6+ MO 2019-01-14 00:00:00 Completed [facility] TDAP 2019-01-14 00:00:00 Completed [facility] Influenza Virus Vaccine Quad .5 mL IM 6+ MO 2019-01-14 00:00:00 Completed [facility] TDAP 2019-01-14 00:00:00 Completed [facility] Influenza Virus Vaccine Quad .5 mL IM 6+ MO 2019-01-14 00:00:00 Completed [facility] TDAP 2019-01-14 00:00:00 Completed [facility] Influenza Virus Vaccine Quad .5 mL IM 6+ MO 2019-01-14 00:00:00 Completed [facility] TDAP 2019-01-14 00:00:00 Completed [facility] Influenza Virus Vaccine Quad .5 mL IM 6+ MO 2019-01-14 00:00:00 Completed [facility] TDAP 2019-01-14 00:00:00 Completed [facility] Influenza Virus Vaccine Quad .5 mL IM 6+ MO 2019-01-14 00:00:00 Completed [facility] TDAP 2019-01-14 00:00:00 Completed [facility] Influenza Virus Vaccine Quad .5 mL IM 6+ MO 2019-01-14 00:00:00 Completed [facility] TDAP 2019-01-14 00:00:00 Completed [facility] Influenza Virus Vaccine Quad .5 mL IM 6+ MO 2019-01-14 00:00:00 Completed [facility] TDAP 2019-01-14 00:00:00 Completed [facility] Influenza Virus Vaccine Quad .5 mL IM 6+ MO 2019-01-14 00:00:00 Completed [facility] TDAP 2019-01-14 00:00:00 Completed [facility] Influenza Virus Vaccine Quad .5 mL IM 6+ MO 2019-01-14 00:00:00 Completed [facility] TDAP 2019-01-14 00:00:00 Completed [facility] Influenza Virus Vaccine Quad .5 mL IM 6+ MO 2019-01-14 00:00:00 Completed [facility] TDAP 2019-01-14 00:00:00 Completed [facility] Influenza Virus Vaccine Quad .5 mL IM 6+ MO 2019-01-14 00:00:00 Completed [facility] TDAP 2019-01-14 00:00:00 Completed [facility] Influenza Virus Vaccine Quad .5 mL IM 6+ MO 2019-01-14 00:00:00 Completed [facility] TDAP 2019-01-14 00:00:00 Completed [facility] Influenza Virus Vaccine Quad .5 mL IM 6+ MO 2019-01-14 00:00:00 Completed [facility] TDAP 2019-01-14 00:00:00 Completed [facility] Influenza Virus Vaccine Quad .5 mL IM 6+ MO 2019-01-14 00:00:00 Completed [facility] TDAP 2019-01-14 00:00:00 Completed [facility] Influenza Virus Vaccine Quad .5 mL IM 6+ MO 2019-01-14 00:00:00 Completed [facility] TDAP 2019-01-14 00:00:00 Completed [facility] Influenza Virus Vaccine Quad .5 mL IM 6+ MO 2019-01-14 00:00:00 Completed [facility] TDAP 2019-01-14 00:00:00 Completed [facility] Influenza Virus Vaccine Quad .5 mL IM 6+ MO 2019-01-14 00:00:00 Completed [facility] TDAP 2019-01-14 00:00:00 Completed [facility] Influenza Virus Vaccine Quad .5 mL IM 6+ MO 2019-01-14 00:00:00 Completed [facility] TDAP 2019-01-14 00:00:00 Completed [facility] Influenza Virus Vaccine Quad .5 mL IM 6+ MO 2019-01-14 00:00:00 Completed [facility] TDAP 2019-01-14 00:00:00 Completed [facility] Influenza Virus Vaccine Quad .5 mL IM 6+ MO (FLUZONE/FLULAVAL/F LUARIX) 2019-01-14 00:00:00 Completed [facility] TDAP 2019-01-14 00:00:00 Completed [facility] Influenza Virus Vaccine Quad .5 mL IM 6+ MO (FLUZONE/FLULAVAL/F LUARIX) 2019-01-14 00:00:00 Completed [facility] TDAP 2019-01-14 00:00:00 Completed [facility] Influenza Virus Vaccine Quad .5 mL IM 6+ MO (FLUZONE/FLULAVAL/F LUARIX) 2019-01-14 00:00:00 Completed [facility] TDAP 2019-01-14 00:00:00 Completed [facility] Influenza Virus Vaccine Quad .5 mL IM 6+ MO (FLUZONE/FLULAVAL/F LUARIX) 2019-01-14 00:00:00 Completed [facility] TDAP 2019-01-14 00:00:00 Completed [facility] Influenza Virus Vaccine Quad .5 mL IM 6+ MO (FLUZONE/FLULAVAL/F LUARIX) 2019-01-14 00:00:00 Completed TDAP 2019-01-14 00:00:00 Completed [facility] Influenza Virus Vaccine Quad .5 mL IM 6+ MO (FLUZONE/FLULAVAL/F LUARIX) 2019-01-14 00:00:00 Completed TDAP Unknown Completed [facility] Influenza Virus Vaccine Quad .5 mL IM 6+ MO (FLUZONE/FLULAVAL/F LUARIX) Unknown Completed [facility] SARS-COV-2 COVID-19 PFIZER VACCINE Unknown Completed [facility] Influenza Virus Vaccine Unknown Completed [facility] TDAP Unknown Completed [facility] Influenza Virus Vaccine Quad .5 mL IM 6+ MO (FLUZONE/FLULAVAL/F LUARIX) Unknown Completed [facility] SARS-COV-2 COVID-19 PFIZER VACCINE Unknown Completed [facility] Influenza Virus Vaccine Unknown Completed [facility] TDAP Unknown Completed [facility] Influenza Virus Vaccine Quad .5 mL IM 6+ MO (FLUZONE/FLULAVAL/F LUARIX) Unknown Completed [facility] SARS-COV-2 COVID-19 PFIZER VACCINE Unknown Completed [facility] Influenza Virus Vaccine Unknown Completed [facility] TDAP Unknown Completed [facility] Influenza Virus Vaccine Quad .5 mL IM 6+ MO (FLUZONE/FLULAVAL/F LUARIX) Unknown Completed [facility] SARS-COV-2 COVID-19 PFIZER VACCINE Unknown Completed [facility] Influenza Virus Vaccine Unknown Completed [facility] TDAP Unknown Completed [facility] Influenza Virus Vaccine Quad .5 mL IM 6+ MO (FLUZONE/FLULAVAL/F LUARIX) Unknown Completed [facility] SARS-COV-2 COVID-19 PFIZER VACCINE Unknown Completed [facility] Influenza Virus Vaccine Unknown Completed [facility] TDAP Unknown Completed [facility] Influenza Virus Vaccine Quad .5 mL IM 6+ MO (FLUZONE/FLULAVAL/F LUARIX) Unknown Completed [facility] SARS-COV-2 COVID-19 PFIZER VACCINE Unknown Completed [facility] Influenza Virus Vaccine Unknown Completed [facility] TDAP Unknown Completed [facility] Influenza Virus Vaccine Quad .5 mL IM 6+ MO (FLUZONE/FLULAVAL/F LUARIX) Unknown Completed [facility] SARS-COV-2 COVID-19 PFIZER VACCINE Unknown Completed [facility] Influenza Virus Vaccine Unknown Completed [facility] TDAP Unknown Completed [facility] Influenza Virus Vaccine Quad .5 mL IM 6+ MO (FLUZONE/FLULAVAL/F LUARIX) Unknown Completed [facility] SARS-COV-2 COVID-19 PFIZER VACCINE Unknown Completed [facility] Influenza Virus Vaccine Unknown Completed [facility] TDAP Unknown Completed [facility] Influenza Virus Vaccine Quad .5 mL IM 6+ MO (FLUZONE/FLULAVAL/F LUARIX) Unknown Completed [facility] SARS-COV-2 COVID-19 PFIZER VACCINE Unknown Completed [facility] Influenza Virus Vaccine Unknown Completed [facility] TDAP Unknown Completed [facility] Influenza Virus Vaccine Quad .5 mL IM 6+ MO (FLUZONE/FLULAVAL/F LUARIX) Unknown Completed [facility] SARS-COV-2 COVID-19 PFIZER VACCINE Unknown Completed [facility] Influenza Virus Vaccine Unknown Completed [facility] TDAP Unknown Completed [facility] Influenza Virus Vaccine Quad .5 mL IM 6+ MO (FLUZONE/FLULAVAL/F LUARIX) Unknown Completed [facility] SARS-COV-2 COVID-19 PFIZER VACCINE Unknown Completed [facility] Influenza Virus Vaccine Unknown Completed [facility] TDAP Unknown Completed [facility] Influenza Virus Vaccine Quad .5 mL IM 6+ MO (FLUZONE/FLULAVAL/F LUARIX) Unknown Completed [facility] SARS-COV-2 COVID-19 PFIZER VACCINE Unknown Completed [facility] Influenza Virus Vaccine Unknown Completed [facility] TDAP Unknown Completed [facility] Influenza Virus Vaccine Quad .5 mL IM 6+ MO (FLUZONE/FLULAVAL/F LUARIX) Unknown Completed [facility] SARS-COV-2 COVID-19 PFIZER VACCINE Unknown Completed [facility] Influenza Virus Vaccine Unknown Completed [facility] TDAP Unknown Completed [facility] Influenza Virus Vaccine Quad .5 mL IM 6+ MO (FLUZONE/FLULAVAL/F LUARIX) Unknown Completed [facility] SARS-COV-2 COVID-19 PFIZER VACCINE Unknown Completed [facility] TDAP Unknown Completed [facility] Influenza Virus Vaccine Quad .5 mL IM 6+ MO (FLUZONE/FLULAVAL/F LUARIX) Unknown Completed [facility] SARS-COV-2 COVID-19 PFIZER VACCINE Unknown Completed [facility] TDAP Unknown Completed [facility] Influenza Virus Vaccine Quad .5 mL IM 6+ MO (FLUZONE/FLULAVAL/F LUARIX) Unknown Completed [facility] SARS-COV-2 COVID-19 PFIZER VACCINE Unknown Completed [facility] Influenza Virus Vaccine Unknown Completed [facility] TDAP Unknown Completed [facility] Influenza Virus Vaccine Quad .5 mL IM 6+ MO (FLUZONE/FLULAVAL/F LUARIX) Unknown Completed [facility] SARS-COV-2 COVID-19 PFIZER VACCINE Unknown Completed [facility] Influenza Virus Vaccine Unknown Completed [facility] TDAP Unknown Completed [facility] Influenza Virus Vaccine Quad .5 mL IM 6+ MO (FLUZONE/FLULAVAL/F LUARIX) Unknown Completed [facility] SARS-COV-2 COVID-19 PFIZER VACCINE Unknown Completed [facility] Influenza Virus Vaccine Unknown Completed [facility] TDAP Unknown Completed [facility] Influenza Virus Vaccine Quad .5 mL IM 6+ MO (FLUZONE/FLULAVAL/F LUARIX) Unknown Completed [facility] SARS-COV-2 COVID-19 PFIZER VACCINE Unknown Completed [facility] Influenza Virus Vaccine Unknown Completed [facility] TDAP Unknown Completed [facility] Influenza Virus Vaccine Quad .5 mL IM 6+ MO (FLUZONE/FLULAVAL/F LUARIX) Unknown Completed [facility] SARS-COV-2 COVID-19 PFIZER VACCINE Unknown Completed [facility] Influenza Virus Vaccine Unknown Completed [facility] TDAP Unknown Completed [facility] Influenza Virus Vaccine Quad .5 mL IM 6+ MO (FLUZONE/FLULAVAL/F LUARIX) Unknown Completed [facility] SARS-COV-2 COVID-19 PFIZER VACCINE Unknown Completed [facility] Influenza Virus Vaccine Unknown Completed [facility] TDAP Unknown Completed [facility] Influenza Virus Vaccine Quad .5 mL IM 6+ MO (FLUZONE/FLULAVAL/F LUARIX) Unknown Completed [facility] Influenza Virus Vaccine Unknown Completed [facility] SARS-COV-2 COVID-19 PFIZER VACCINE Unknown Completed [facility] TDAP Unknown Completed [facility] Influenza Virus Vaccine Quad .5 mL IM 6+ MO (FLUZONE/FLULAVAL/F LUARIX) Unknown Completed [facility] SARS-COV-2 COVID-19 PFIZER VACCINE Unknown Completed [facility] Influenza Virus Vaccine Unknown Completed [facility] TDAP Unknown Completed [facility] Influenza Virus Vaccine Quad .5 mL IM 6+ MO (FLUZONE/FLULAVAL/F LUARIX) Unknown Completed [facility] Influenza Virus Vaccine Unknown Completed [facility] SARS-COV-2 COVID-19 PFIZER VACCINE Unknown Completed [facility] TDAP Unknown Completed [facility] Influenza Virus Vaccine Quad .5 mL IM 6+ MO (FLUZONE/FLULAVAL/F LUARIX) Unknown Completed [facility] SARS-COV-2 COVID-19 PFIZER VACCINE Unknown Completed [facility] Influenza Virus Vaccine Unknown Completed [facility] TDAP Unknown Completed [facility] Influenza Virus Vaccine Quad .5 mL IM 6+ MO (FLUZONE/FLULAVAL/F LUARIX) Unknown Completed [facility] SARS-COV-2 COVID-19 PFIZER VACCINE Unknown Completed [facility] Influenza Virus Vaccine Unknown Completed [facility] TDAP Unknown Completed [facility] Influenza Virus Vaccine Quad .5 mL IM 6+ MO (FLUZONE/FLULAVAL/F LUARIX) Unknown Completed [facility] SARS-COV-2 COVID-19 PFIZER VACCINE Unknown Completed [facility] Influenza Virus Vaccine Unknown Completed [facility] TDAP Unknown Completed [facility] Influenza Virus Vaccine Quad .5 mL IM 6+ MO (FLUZONE/FLULAVAL/F LUARIX) Unknown Completed [facility] SARS-COV-2 COVID-19 PFIZER VACCINE Unknown Completed [facility] Influenza Virus Vaccine Unknown Completed [facility] TDAP Unknown Completed [facility] Influenza Virus Vaccine Quad .5 mL IM 6+ MO (FLUZONE/FLULAVAL/F LUARIX) Unknown Completed [facility] SARS-COV-2 COVID-19 PFIZER VACCINE Unknown Completed [facility] Influenza Virus Vaccine Unknown Completed [facility] TDAP Unknown Completed [facility] Influenza Virus Vaccine Quad .5 mL IM 6+ MO (FLUZONE/FLULAVAL/F LUARIX) Unknown Completed [facility] SARS-COV-2 COVID-19 PFIZER VACCINE Unknown Completed [facility] Influenza Virus Vaccine Unknown Completed [facility] TDAP Unknown Completed [facility] Influenza Virus Vaccine Quad .5 mL IM 6+ MO (FLUZONE/FLULAVAL/F LUARIX) Unknown Completed [facility] SARS-COV-2 COVID-19 PFIZER VACCINE Unknown Completed [facility] Influenza Virus Vaccine Unknown Completed [facility] TDAP Unknown Completed [facility] Influenza Virus Vaccine Quad .5 mL IM 6+ MO (FLUZONE/FLULAVAL/F LUARIX) Unknown Completed [facility] SARS-COV-2 COVID-19 PFIZER VACCINE Unknown Completed [facility] Influenza Virus Vaccine Unknown Completed [facility] TDAP Unknown Completed [facility] Influenza Virus Vaccine Quad .5 mL IM 6+ MO (FLUZONE/FLULAVAL/F LUARIX) Unknown Completed [facility] SARS-COV-2 COVID-19 PFIZER VACCINE Unknown Completed [facility] Influenza Virus Vaccine Unknown Completed [facility] TDAP Unknown Completed [facility] Influenza Virus Vaccine Quad .5 mL IM 6+ MO (FLUZONE/FLULAVAL/F LUARIX) Unknown Completed [facility] SARS-COV-2 COVID-19 PFIZER VACCINE Unknown Completed [facility] Influenza Virus Vaccine Unknown Completed [facility] TDAP Unknown Completed [facility] Influenza Virus Vaccine Quad .5 mL IM 6+ MO (FLUZONE/FLULAVAL/F LUARIX) Unknown Completed [facility] SARS-COV-2 COVID-19 PFIZER VACCINE Unknown Completed [facility] Influenza Virus Vaccine Unknown Completed [facility] TDAP Unknown Completed [facility] Influenza Virus Vaccine Quad .5 mL IM 6+ MO (FLUZONE/FLULAVAL/F LUARIX) Unknown Completed [facility] SARS-COV-2 COVID-19 PFIZER VACCINE Unknown Completed [facility] Influenza Virus Vaccine Unknown Completed [facility] TDAP Unknown Completed [facility] Influenza Virus Vaccine Quad .5 mL IM 6+ MO (FLUZONE/FLULAVAL/F LUARIX) Unknown Completed [facility] SARS-COV-2 COVID-19 PFIZER VACCINE Unknown Completed [facility] Influenza Virus Vaccine Unknown Completed [facility] TDAP Unknown Completed [facility] Influenza Virus Vaccine Quad .5 mL IM 6+ MO (FLUZONE/FLULAVAL/F LUARIX) Unknown Completed [facility] SARS-COV-2 COVID-19 PFIZER VACCINE Unknown Completed [facility] Influenza Virus Vaccine Unknown Completed [facility] TDAP Unknown Completed [facility] Influenza Virus Vaccine Quad .5 mL IM 6+ MO (FLUZONE/FLULAVAL/F LUARIX) Unknown Completed [facility] SARS-COV-2 COVID-19 PFIZER VACCINE Unknown Completed [facility] Influenza Virus Vaccine Unknown Completed [facility] TDAP Unknown Completed [facility] Influenza Virus Vaccine Quad .5 mL IM 6+ MO (FLUZONE/FLULAVAL/F LUARIX) Unknown Completed [facility] SARS-COV-2 COVID-19 PFIZER VACCINE Unknown Completed [facility] Influenza Virus Vaccine Unknown Completed [facility] TDAP Unknown Completed [facility] Influenza Virus Vaccine Quad .5 mL IM 6+ MO (FLUZONE/FLULAVAL/F LUARIX) Unknown Completed [facility] SARS-COV-2 COVID-19 PFIZER VACCINE Unknown Completed [facility] Influenza Virus Vaccine Unknown Completed [facility] TDAP Unknown Completed [facility] Influenza Virus Vaccine Quad .5 mL IM 6+ MO (FLUZONE/FLULAVAL/F LUARIX) Unknown Completed [facility] SARS-COV-2 COVID-19 PFIZER VACCINE Unknown Completed [facility] Influenza Virus Vaccine Unknown Completed [facility] Vital Signs Vital Name Observation Time Observation Value Comments S ource Body temperature 2024-02-26 20:36:00 36.28 Ilsa [facility] Body height 2024-02-26 20:36:00 165.1 cm [facility] Body weight 2024-02-26 20:36:00 103.057 kg [facility] BMI 2024-02-26 20:36:00 37.81 kg/m2 [facility] Respiratory rate 2024-02-26 16:25:00 16 /min [facility] Body height 2024-02-26 16:25:00 165.1 cm [facility] Body weight 2024-02-26 16:25:00 99.791 kg [facility] BMI 2024-02-26 16:25:00 36.61 kg/m2 [facility] Body height 2024-02-23 16:25:00 165.1 cm [facility] Systolic blood pressure 2024-01-25 14:09:00 144 mm[Hg] [facility] Diastolic blood pressure 2024-01-25 14:09:00 100 mm[Hg] [facility] Heart rate 2024-01-25 14:09:00 79 /min [facility] Body temperature 2024-01-25 14:09:00 36.39 Ilsa [facility] Body height 2024-01-25 14:09:00 165.1 cm [facility] Body weight 2024-01-25 14:09:00 101.606 kg [facility] BMI 2024-01-25 14:09:00 37.28 kg/m2 [facility] Oxygen saturation in Arterial blood by Pulse oximetry 2024-01-25 14:09:00 99 /min [facility] Systolic blood pressure 2024-01-10 15:25:00 140 mm[Hg] [facility] Diastolic blood pressure 2024-01-10 15:25:00 96 mm[Hg] [facility] Heart rate 2024-01-10 15:25:00 78 /min [facility] Body temperature 2024-01-10 15:24:00 35.94 Ilsa [facility] Body height 2024-01-10 15:24:00 165.1 cm [facility] Body weight 2024-01-10 15:24:00 102.967 kg [facility] BMI 2024-01-10 15:24:00 37.77 kg/m2 [facility] Oxygen saturation in Arterial blood by Pulse oximetry 2024-01-10 15:24:00 99 /min [facility] Systolic blood pressure 2023-03-21 21:51:00 120 mm[Hg] [facility] Diastolic blood pressure 2023-03-21 21:51:00 85 mm[Hg] [facility] Heart rate 2023-03-21 21:51:00 61 /min [facility] Respiratory rate 2023-03-21 21:51:00 18 /min [facility] Body height 2023-03-21 21:51:00 165.1 cm [facility] Body weight 2023-03-21 21:51:00 85.775 kg [facility] BMI 2023-03-21 21:51:00 31.47 kg/m2 [facility] Oxygen saturation in Arterial blood by Pulse oximetry 2023-03-21 21:51:00 99 /min [facility] Systolic blood pressure 2023-01-04 14:52:00 145 mm[Hg] [facility] Diastolic blood pressure 2023-01-04 14:52:00 92 mm[Hg] [facility] Heart rate 2023-01-04 14:43:00 88 /min [facility] Body temperature 2023-01-04 14:43:00 36.61 Ilsa [facility] Respiratory rate 2023-01-04 14:43:00 18 /min [facility] Body height 2023-01-04 14:43:00 165.1 cm [facility] Body weight 2023-01-04 14:43:00 80.74 kg [facility] BMI 2023-01-04 14:43:00 29.62 kg/m2 [facility] Systolic blood pressure 2022-12-01 19:30:41 110 mm[Hg] [facility] Diastolic blood pressure 2022-12-01 19:30:41 90 mm[Hg] [facility] Heart rate 2022-12-01 19:30:41 61 /min [facility] Body temperature 2022-12-01 19:30:41 36.72 Ilsa [facility] Respiratory rate 2022-12-01 19:30:41 17 /min [facility] Oxygen saturation in Arterial blood by Pulse oximetry 2022-12-01 19:30:41 96 /min [facility] Body height 2022-12-01 16:56:00 165.1 cm [facility] Body weight 2022-12-01 16:56:00 79.379 kg [facility] BMI 2022-12-01 16:56:00 29.12 kg/m2 [facility] Systolic blood pressure 2022-10-21 15:53:00 121 mm[Hg] [facility] Diastolic blood pressure 2022-10-21 15:53:00 86 mm[Hg] [facility] Heart rate 2022-10-21 15:53:00 79 /min [facility] Body height 2022-10-21 15:53:00 165.1 cm [facility] Body weight 2022-10-21 15:53:00 82.01 kg [facility] BMI 2022-10-21 15:53:00 30.09 kg/m2 [facility] Oxygen saturation in Arterial blood by Pulse oximetry 2022-10-21 15:53:00 97 /min [facility] Systolic blood pressure 2022-10-13 20:29:00 135 mm[Hg] pt felt unbalanced/torin ey [facility] Diastolic blood pressure 2022-10-13 20:29:00 102 mm[Hg] pt felt unbalanced/torin ey [facility] Heart rate 2022-10-13 20:29:00 116 /min [facility] Oxygen saturation in Arterial blood by Pulse oximetry 2022-10-13 20:29:00 97 /min [facility] Body temperature 2022-10-13 19:57:00 37.17 Ilsa [facility] Respiratory rate 2022-10-13 19:57:00 18 /min [facility] Body height 2022-10-13 19:57:00 165.1 cm [facility] Body weight 2022-10-13 19:57:00 81.449 kg [facility] BMI 2022-10-13 19:57:00 29.88 kg/m2 [facility] Systolic blood pressure 2022-10-04 21:10:00 148 mm[Hg] [facility] Diastolic blood pressure 2022-10-04 21:10:00 98 mm[Hg] [facility] Heart rate 2022-10-04 21:06:00 99 /min [facility] Body temperature 2022-10-04 21:06:00 36.83 Ilsa [facility] Respiratory rate 2022-10-04 21:06:00 18 /min [facility] Body height 2022-10-04 21:06:00 165.1 cm [facility] Body weight 2022-10-04 21:06:00 82.555 kg [facility] BMI 2022-10-04 21:06:00 30.29 kg/m2 [facility] Oxygen saturation in Arterial blood by Pulse oximetry 2022-10-04 21:06:00 99 /min [facility] Systolic blood pressure 2022-09-28 21:00:00 129 mm[Hg] [facility] Diastolic blood pressure 2022-09-28 21:00:00 96 mm[Hg] [facility] Heart rate 2022-09-28 21:00:00 76 /min [facility] Respiratory rate 2022-09-28 21:00:00 13 /min [facility] Oxygen saturation in Arterial blood by Pulse oximetry 2022-09-28 21:00:00 97 /min [facility] Body temperature 2022-09-28 17:45:00 37.11 Ilsa [facility] Body weight 2022-09-28 17:45:00 94.802 kg [facility] BMI 2022-09-28 17:45:00 34.78 kg/m2 [facility] Systolic blood pressure 2022-06-03 20:07:00 138 mm[Hg] [facility] Diastolic blood pressure 2022-06-03 20:07:00 90 mm[Hg] [facility] Heart rate 2022-06-03 20:06:00 92 /min [facility] Respiratory rate 2022-06-03 20:06:00 18 /min [facility] Body height 2022-06-03 20:06:00 165.1 cm [facility] Body weight 2022-06-03 20:06:00 94.802 kg [facility] BMI 2022-06-03 20:06:00 34.78 kg/m2 [facility] Oxygen saturation in Arterial blood by Pulse oximetry 2022-06-03 20:06:00 97 /min [facility] Systolic blood pressure 2022-02-03 14:00:00 139 mm[Hg] [facility] Diastolic blood pressure 2022-02-03 14:00:00 91 mm[Hg] [facility] Heart rate 2022-02-03 14:00:00 73 /min [facility] Respiratory rate 2022-02-03 14:00:00 18 /min [facility] Oxygen saturation in Arterial blood by Pulse oximetry 2022-02-03 14:00:00 97 /min [facility] Body temperature 2022-02-03 13:18:00 36.61 Ilsa [facility] Body weight 2022-02-03 13:18:00 99.791 kg [facility] BMI 2022-02-03 13:18:00 38.97 kg/m2 [facility] Systolic blood pressure 2022-01-27 21:05:00 136 mm[Hg] [facility] Diastolic blood pressure 2022-01-27 21:05:00 81 mm[Hg] [facility] Heart rate 2022-01-27 21:05:00 81 /min [facility] Respiratory rate 2022-01-27 21:05:00 18 /min [facility] Body height 2022-01-27 21:05:00 160 cm [facility] Body weight 2022-01-27 21:05:00 103.874 kg [facility] BMI 2022-01-27 21:05:00 40.57 kg/m2 [facility] Oxygen saturation in Arterial blood by Pulse oximetry 2022-01-27 21:05:00 97 /min [facility] Systolic blood pressure 2024-03-04 20:32:00 153 mm[Hg] [facility] Diastolic blood pressure 2024-03-04 20:32:00 105 mm[Hg] [facility] Heart rate 2024-03-04 20:32:00 62 /min [facility] Respiratory rate 2024-03-04 20:29:00 18 /min [facility] Body height 2024-03-04 20:29:00 165.1 cm [facility] Body weight 2024-03-04 20:29:00 101.606 kg [facility] BMI 2024-03-04 20:29:00 37.28 kg/m2 [facility] Body temperature 2024-02-26 20:36:00 36.28 Ilsa [facility] Body height 2024-02-26 20:36:00 165.1 cm [facility] Body weight 2024-02-26 20:36:00 103.057 kg [facility] BMI 2024-02-26 20:36:00 37.81 kg/m2 [facility] Respiratory rate 2024-02-26 16:25:00 16 /min [facility] Systolic blood pressure 2024-01-25 14:09:00 144 mm[Hg] [facility] Diastolic blood pressure 2024-01-25 14:09:00 100 mm[Hg] [facility] Heart rate 2024-01-25 14:09:00 79 /min [facility] Oxygen saturation in Arterial blood by Pulse oximetry 2024-01-25 14:09:00 99 /min [facility] Procedures Procedure Date / Time Performed Performing Clinician Source CT SOFT TISSUE NECK W CONTRAST 2024-03-04 15:59:45 Marybeth Jiménez [facility] CT SOFT TISSUE NECK W CONTRAST 2024-03-04 15:59:45 Marybeth Jiménez [facility] US PELVIS COMPLETE WITH TRANSVAGINAL 2024-03-04 15:42:16 Miya Edouard [facility] US PELVIS COMPLETE WITH TRANSVAGINAL 2024-03-04 15:42:16 Miya Edouard [facility] COMP. METABOLIC PANEL ([id number]) 2024-02-23 16:58:00 Lui Post [facility] CBC WITH DIFF 2024-02-23 16:58:00 Lui Patel [facility] HEPATITIS B SURFACE ANTIBODY 2024-02-23 16:58:00 Lui Post [facility] HEPATITIS B SURFACE ANTIGEN 2024-02-23 16:58:00 Lui Post [facility] HCV ANTIBODY 2024-02-23 16:58:00 Lui Patel [facility] HBC ANTIBODY (IGM & IGG) 2024-02-23 16:58:00 Lui Das Miguel [facility] HIV 1/2 AG-AB WITH REFLEX 2024-02-23 16:58:00 Pi Lui Walker [facility] HCV ANTIBODY 2024-02-23 16:58:00 Lui Patel [facility] HIV 1/2 AG-AB WITH REFLEX 2024-02-23 16:58:00 Pi Lui Wakler [facility] QUANTIFERON-TB ASSAY 2024-02-23 16:58:00 [facility] ANTIGEN 2024-02-23 16:58:00 Lui Post [facility] HEPATITIS B SURFACE ANTIBODY 2024-02-23 16:58:00 [facility] H[facility]TIB[facility] (IGM & IGG) 2024-02-23 16:58:00 [facility]y [facility] COMP. METABOLIC PANEL ([id number]) 2024-02-23 16:58:00 Lui Post [facility] CBC WITH DIFF 2024-02-23 16:58:00 Lui Patel [facility] MR LUMBAR SPINE WO CONTRAST 2024-02-18 23:14:[address] [facility] [address] MAXILLOFACIAL/MANDIBLE WO CONTRAST 2024-02-12 22:18:[address] [facility] [address] MAXILLOFACIAL/MANDIBLE WO CONTRAST 2024-02-12 22:18:00 Javan [facility] GLYCOSYLATED HEMOGLOBIN (A1C) 2024-02-01 14:58:00 Javan [facility] LIPID PANEL ([id number])(TOTAL CHOLESTEROL, TRIGLYCERIDES, HDL) 2024-02-01 14:58:00 Javan [facility] CBC WITH DIFF 2024-02-01 14:58:00 Miya Edouard [facility] FREE T4 2024-02-01 14:58:00 Miya Edouard [facility] FREE T3 2024-02-01 14:58:00 Javan [facility] THYROID STIMULATING HORMONE 2024-02-01 14:58:00 Javan [facility] COMP. METABOLIC PANEL ([id number]) 2024-02-01 14:58:00 Javan [facility] SEDIMENTATION RATE 2024-02-01 14:58:00 Vern Edouard [facility] C-REACTIVE PROTEIN 2024-02-01 14:58:00 Vern Edouard [facility] GC & CHLAMYDIA AMPLIFIED ASSAY 2024-01-25 15:23:00 Javan [facility] VITAMIN D, 25-OH 2024-01-25 15:16:00 Javan [facility] VITAMIN D, 25-OH 2024-01-25 15:16:00 Javan [facility] EBV-MONONUCLEOSIS SCREEN 2024-01-25 15:16:00 Javan [facility] HIV 1/2 AG-AB WITH REFLEX 2024-01-25 15:16:00 Dane fletcher [facility] SYPHILIS IGG/IGM 2024-01-25 15:16:00 Javan [facility] ALLERGENS, PEANUT PANEL 2024-01-25 15:16:00 Javan [facility] URINALYSIS 2024-01-10 16:44:00 Olamide Simpson [facility] URINALYSIS 2024-01-10 16:44:00 Olamide Simpson [facility] C-REACTIVE PROTEIN 2024-01-10 16:13:00 Olamide Simpson [facility] COMP. METABOLIC PANEL ([id number]) 2024-01-10 16:13:00 Olamide Simpson [facility] CBC WITH DIFF 2024-01-10 16:13:00 Olamide Simpson [facility] ANTI-CENTROMERE B 2024-01-10 16:13:00 Olamide Simpson [facility] ANTI-SSA(RO) 2024-01-10 16:13:00 Olamide Simpson [facility] CBC WITH DIFF 2024-01-10 16:13:00 Olamide Simpson [facility] COMP. METABOLIC PANEL ([id number]) 2024-01-10 16:13:00 Olamide Simpson [facility] THYROID PEROXIDASE (TPO) AB 2024-01-10 16:13:00 Olamide Simpson [facility] ANTI-SSB(LA) 2024-01-10 16:13:00 Olamide Simpson [facility] ANTI-CENTROMERE B 2024-01-10 16:13:00 Olamide Simpson [facility] C-REACTIVE PROTEIN 2024-01-10 16:13:00 Olamide Simpson [facility] FREE T4 2023-04-05 17:14:00 Jak [facility] THYROID STIMULATING HORMONE 2023-04-05 17:14:00 Jak [facility] FREE T3 2023-04-05 17:14:00 Jak [facility] US HEAD NECK 2023-04-05 17:09:55 Jak [facility] ASSIGNMENT OF BENEFITS 2023-03-21 21:09:01 Docto r Unassigned, La Verkin [facility] EXTERNAL PROVIDER RECORDS 2023-01-05 05:01:00 Do ctor Unassigned, La Verkin [facility] C-REACTIVE PROTEIN 2023-01-04 15:47:00 Vern Edouard [facility] THYROID STIMULATING HORMONE 2023-01-04 15:47:00 Miya Edouard [facility] BASIC METABOLIC PANEL (NA, K, CL, CO2, GLUCOSE, BUN, CREATININE, CA) 2023-01-04 15:47:00 Miya Edouard [facility] SEDIMENTATION RATE 2023-01-04 15:47:00 Vern Edouard [facility] GLYCOSYLATED HEMOGLOBIN (A1C) 2023-01-04 15:47:00 Miya Edouard [facility] ANTI-NUCLEAR ANTIBODY SCREEN 2023-01-04 15:47:00 Miya Edouard [facility] URINE CULTURE 2023-01-04 15:47:00 Miya Edouard [facility] ANTI-DOUBLE STRANDED DNA 2023-01-04 15:47:00 Miya Edouard [facility] FREE T3 2023-01-04 15:47:00 Miya Edouard [facility] INSURANCE CORRESPONDENCE 2022-12-22 05:01:00 Doc tor Unassigned, La Verkin [facility] URINALYSIS 2022-12-01 18:38:00 Jey Perez [facility] XR CHEST 1 VW 2022-12-01 17:41:17 Jey Perez [facility] LIPASE 2022-12-01 17:15:00 Jey Perez [facility] TROPONIN I 2022-12-01 17:15:00 Jey Perez [facility] COMP. METABOLIC PANEL ([id number]) 2022-12-01 17:15:00 Jey Perez [facility] CBC WITH DIFF 2022-12-01 17:15:00 Jey Perez [facility] COVID-19 (ID NOW RAPID TESTING) 2022-12-01 17:15:00 Jey Perez [facility] MEDICATION CORRESPONDENCE 2022-11-22 05:01:00 Do ctor Unassigned, La Verkin [facility] MR LUMBAR SPINE W WO CONTRAST 2022-10-12 21:23:00 Javan [facility] POCT TEST 2022-09-28 19:44:00 Tl Jolly [facility] CT STROKE ANGIOGRAM HEAD 2022-09-28 19:30:00 AudraoensJuliane lazo [facility] CT STROKE ANGIOGRAM NECK 2022-09-28 19:30:00 Schoenste in, [facility] CT STROKE HEAD WO CONTRAST 2022-09-28 [facility]:14[facility]28 18:53[facility]00 [facility] ([id number][facility] 2022-09-28 18:53:00 Juliane Jolly [facility] CBC WITH DIFF 2022-09-28 18:53:00 Juliane Jolly [facility] PROTHROMBIN TIME / INR 2022-09-28 18:53:00 Juliane Jolly [facility] ACTIVATED PARTIAL THRMPLAS MARK 2022-09-28 18:53:00 Juliane Jolly [facility] URINALYSIS 2022-09-28 18:53:00 [facility] 2022-09-28 18:53:00 Hue Jolly ndada [facility] LACTIC ACID WHOLE BLOOD 2022-09-28 18:53:00 Juliane Tamayo [facility] MR CERVICAL SPINE WO CONTRAST 2022-08-25 21:43:32 Requisition, Paper [facility] CONSENT/REFUSAL FOR DIAGNOSIS AND TREATMENT 2022-08-25 21:06:28 Doctor Unassigned, La Verkin [facility] ASSIGNMENT OF BENEFITS 2022-08-25 21:06:18 Docto r Unassigned, La Verkin [facility] [facility] MR LUMBAR SPINE WO CONTRAST 2022-06-07 22:54:45 Requisition, Paper [facility] XR LUMBAR SPINE 4 VW 2022-06-07 21:58:44 Requisition, Paper [facility] COMP. METABOLIC PANEL ([id number]) 2022-02-03 13:37:00 Carolina Maurice [facility] CBC WITH DIFF 2022-02-03 13:37:00 Carolina Maurice [facility] CONSENT/REFUSAL FOR DIAGNOSIS AND TREATMENT 2022-02-03 13:08:09 Doctor Unassigned, [place] [facility] BI SCREENING TOMOSYNTHESIS BILATERAL 2021-02-10 16:00:00 Miya Edouard [facility] HIGH RISK HPV-THIN PREP 2021-02-09 20:57:00 AdumViolet [facility] LAB ONLY PAP SMEAR-LIQUID BASED 2021-02-09 20:57:00 AdNika gaxiola [facility] Encounters Start Date/Time End Date/Time Encounter Type Admission Type Attending Clinicians Care Facility Care Department Encounter ID Source 2021-03-04 15:44:30 Outpatient R ABBEY ROTHMAN [facility] DEB [id number] [facility] 2021-02-12 17:53:46 Emergency [facility] [id number] [facility] 2024-05-28 13:00:00 2024-05-28 13:00:00 Outpatient R MIYA EDOUARD [facility] [id number] [facility] 2024-04-26 11:40:00 2024-04-26 11:40:00 Outpatient R MIYA EDOUARD [facility] [id number] [facility] 2024-04-24 10:00:00 2024-04-24 10:00:00 Outpatient SARAH BETH AREVALO [facility] [id number] [facility] 2024-04-22 00:00:00 2024-04-22 15:51:54 Telephone Marybeth Jim[facility]nez [facility] 1.2.840.114 350.1.13.10 4.2.7.2.686 [id number] [facility] 2024-03-01 00:00:00 2024-04-06 18:19:56 Patient Secure Miya Garrison [facility] 1.2.840.114 350.1.13.10 4.2.7.2.686 [id number] [facility] 2024-03-01 00:00:00 2024-04-06 18:19:36 Patient Secure Miya Garrison [facility] 1.2.840.114 350.1.13.10 4.2.7.2.686 [id number] [facility] 2024-04-03 09:40:00 2024-04-03 09:40:00 Outpatient SARAH BETH AREVALO [facility] [id number] [facility] 2024-04-01 14:30:00 2024-04-01 14:30:00 Outpatient R CHERELLE GARBER [facility] [id number] [facility] 2024-03-20 09:20:00 2024-03-20 09:20:00 Outpatient R SARAH BETH YOUNG [facility] [id number] [facility] 2024-03-12 09:30:00 2024-03-12 09:30:00 Outpatient R MALIK WHITE CRAIG [facility] [id number] [facility] 2024-03-12 08:15:00 2024-03-12 08:15:00 Outpatient R MARTHA DALAL MARISOL [facility] [id number] [facility] 2024-03-06 10:20:00 2024-03-06 10:20:00 Outpatient SARAH BETH AREVALO [facility] [id number] [facility] 2024-03-04 00:00:00 2024-03-05 11:30:52 Telephone Marybeth Jiménez 1.2.840.1 84751.1.1 3.104.2.7 .3.460103 .8 [id number] [facility] 2024-03-04 08:40:36 2024-03-04 23:59:00 Outpatient R MARYBETH JIMÉNEZ LUPITA [facility] [id number] [facility] 2024-03-04 08:40:36 2024-03-04 23:59:00 Hospital Encounter Marybeth Jiménez 1.2.840.1 33863.1.1 3.104.2.7 .3.642380 .8 [id number] [facility] 2024-03-04 00:00:00 2024-03-04 11:39:44 Specialty Pharmacy Carina Taylor 1.2.840.1 86146.1.1 3.104.2.7 .3.977789 .8 [id number] [facility] 2024-03-04 08:39:37 2024-03-04 08:39:37 Hospital Encounter Miya Edouard 1.2.840.1 10460.1.1 3.104.2.7 .3.493069 .8 [id number] [facility] 2024-03-04 00:00:00 2024-03-04 00:00:00 Travel 1.2.840.1 65857.1.1 3.104.2.7 .3.459473 .8 1.2.840.114 350.1.13.10 4.2.7.3.698 084.8 [id number] [facility] 2024-03-02 15:55:42 2024-03-02 23:59:00 Outpatient R MIYA EDOUARD [facility] [id number] [facility] 2024-01-30 00:00:00 2024-03-02 18:20:06 Patient Secure Msg Miya Edouard 1.2.840.1 09771.1.1 3.104.2.7 .3.317782 .8 [id number] [facility] 2024-03-01 00:00:00 2024-03-01 12:57:59 Specialty Pharmacy Jeni Serna 1.2.840.1 24648.1.1 3.104.2.7 .3.551692 .8 [id number] [facility] 2024-02-29 00:00:00 2024-02-29 11:19:17 Telephone Jeni Serna 1.2.840.1 23354.1.1 3.104.2.7 .3.015177 .8 [id number] [facility] 2024-02-27 00:00:00 2024-02-27 16:56:29 Telephone Martha Dalal 1.2.840.1 70184.1.1 3.104.2.7 .3.393166 .8 [id number] [facility] 2024-02-26 15:00:00 2024-02-26 15:54:20 Office Visit Marybeth Jiménez 1.2.840.1 25009.1.1 3.104.2.7 .3.121354 .8 [id number] [facility] 2024-02-26 10:00:00 2024-02-26 11:09:16 Outpatient R LOKI HAYES [facility] [id number] [facility] 2024-02-26 10:00:00 2024-02-26 11:09:16 Office Visit Loki Hayes 1.2.840.1 79346.1.1 3.104.2.7 .3.987942 .8 [id number] [facility] 2024-02-26 00:00:00 2024-02-26 00:00:00 Travel 1.2.840.1 43104.1.1 3.104.2.7 .3.612640 .8 1.2.840.114 350.1.13.10 4.2.7.3.698 084.8 [id number] [facility] 2024-02-23 11:00:00 2024-02-23 11:15:00 Correctional Agency Director Visit Clare Hernández Janice May Only [facility] Test 1.2.840.1 56686.1.1 3.104.2.7 .3.456087 .8 [id number] [facility] 2024-02-23 10:15:00 2024-02-23 10:46:31 Outpatient R JENNIE LOVING [facility] [id number] [facility] 2024-02-23 10:15:00 2024-02-23 10:46:31 Office Visit Clare Hernández Janice May Pinto Cuberos, Juan Miguel 1.2.840.1 41286.1.1 3.104.2.7 .3.716494 .8 [id number] [facility] 2024-02-23 00:00:00 2024-02-23 00:00:00 Travel 1.2.840.1 70885.1.1 3.104.2.7 .3.685745 .8 1.2.840.114 350.1.13.10 4.2.7.3.698 084.8 [id number] [facility] 2024-02-22 00:00:00 2024-02-22 10:23:28 Patient Secure Msg NabilaashleyMiya gonzales 1.2.840.1 44022.1.1 3.104.2.7 .3.072367 .8 [id number] [facility] 2024-02-20 00:00:00 2024-02-22 08:15:19 Patient Secure Msg NabilajillMiya hoang 1.2.840.1 88243.1.1 3.104.2.7 .3.250864 .8 [id number] [facility] 2024-02-21 00:00:00 2024-02-21 15:04:37 Refill Miya Edouard 1.2.840.1 96334.1.1 3.104.2.7 .3.646899 .8 [id number] [facility] 2024-02-21 00:00:00 2024-02-21 15:00:03 Patient Secure Msg NabilajillMiya hoang 1.2.840.1 72009.1.1 3.104.2.7 .3.751609 .8 [id number] [facility] 2024-02-21 00:00:00 2024-02-21 00:00:00 Refdallas Miya Edouard 1.2.840.1 62193.1.1 3.104.2.7 .3.325004 .8 [id number] [facility] 2024-02-13 00:00:00 2024-02-19 10:14:37 Patient Secure Msg Edemekong, Peter 1.2.840.1 79957.1.1 3.104.2.7 .3.655997 .8 [id number] [facility] 2024-02-18 15:34:29 2024-02-18 23:59:00 Hospital Encounter Miya Edouard 1.2.840.1 73263.1.1 3.104.2.7 .3.125237 .8 [id number] [facility] 2024-02-18 16:00:00 2024-02-18 16:00:00 Outpatient R MIYA EDOUARD [facility] [id number] [facility] 2024-02-14 00:00:00 2024-02-14 16:47:35 Telephone Sue Childs 1.2.840.1 30578.1.1 3.104.2.7 .3.062646 .8 [id number] [facility] 2024-02-12 16:33:32 2024-02-12 23:59:00 Outpatient R MIYA EDOUARD [facility] [id number] [facility] 2024-02-12 16:20:00 2024-02-12 23:59:00 Hospital Encounter Miya Edouard 1.2.840.1 40072.1.1 3.104.2.7 .3.866742 .8 [id number] [facility] 2024-02-09 00:00:00 2024-02-12 09:13:26 Telephone Miya Edouard 1.2.840.1 11652.1.1 3.104.2.7 .3.334556 .8 [id number] [facility] 2024-02-01 00:00:00 2024-02-06 09:43:57 Telephone Olamide Simpson 1.2.840.1 43165.1.1 3.104.2.7 .3.009268 .8 [id number] [facility] 2024-02-06 00:00:00 2024-02-06 00:00:00 Outpatient R MIYA EDOUARD [facility] [id number] [facility] 2024-01-31 00:00:00 2024-02-05 08:14:36 Patient Secure Msg Doctor Unassigned, [place] 1.2.840.1 02283.1.1 3.104.2.7 .3.209121 .8 [id number] [facility] 2024-01-30 00:00:00 2024-02-05 08:14:10 Patient Secure Msg Miya Edourad 1..840.1 88250.1.1 3.104.2.7 .3.135293 .8 [id number] [facility] 2024-02-05 00:00:00 2024-02-05 00:00:00 Outpatient R MIYA EDOUARD [facility] [id number] [facility] 2024-02-01 10:00:00 2024-02-01 10:26:05 Correctional Agency Director Visit Miya Edouard 2, Adc Lab 1.2.840.1 63741.1.1 3.104.2.7 .3.074857 .8 [id number] [facility] 2024-02-01 10:00:00 2024-02-01 10:00:00 Outpatient R MIYA EDOUARD [facility] [id number] [facility] 2024-01-30 00:00:00 2024-01-31 09:41:11 Telephone Olamide Simpson 1.2.840.1 32273.1.1 3.104.2.7 .3.812723 .8 [id number] [facility] 2024-01-31 00:00:00 2024-01-31 00:00:00 Outpatient R MIYA EDOUARD [facility] [id number] [facility] 2024-01-30 00:00:00 2024-01-30 16:37:26 Refill Miya Edouard 1.2.840.1 51545.1.1 3.104.2.7 .3.217412 .8 [id number] [facility] 2024-01-30 00:00:00 2024-01-30 16:37:21 Refill Miya Edouard 1.2.840.1 46169.1.1 3.104.2.7 .3.665275 .8 [id number] [facility] 2024-01-30 00:00:00 2024-01-30 16:24:38 Telephone Miya Edouard 1.2.840.1 60346.1.1 3.104.2.7 .3.473058 .8 [id number] [facility] 2024-01-30 00:00:00 2024-01-30 11:33:55 Patient Secure Msg Miya Edouard 1.2.840.1 75765.1.1 3.104.2.7 .3.415330 .8 [id number] [facility] 2024-01-30 00:00:00 2024-01-30 11:06:55 Letter (Out) 1.2.840.1 20567.1.1 3.104.2.7 .3.774694 .8 [id number] [facility] 2024-01-26 00:00:00 2024-01-29 12:20:33 Telephone Miya Edouard 1.2.840.1 32662.1.1 3.104.2.7 .3.441004 .8 [id number] [facility] 2024-01-29 00:00:00 2024-01-29 00:00:00 Outpatient R MIYA EDOUARD [facility] [id number] [facility] 2024-01-25 10:30:00 2024-01-25 10:56:52 [employer]al [employer] Director Visit Miya Edouard 2, Adc Lab 1.2.840.1 85964.1.1 3.104.2.7 .3.213066 .8 [id number] [facility] 2024-01-25 09:00:00 2024-01-25 10:00:58 Outpatient R JAVAN MIYA [facility] [id number] [facility] 2024-01-25 09:00:00 2024-01-25 10:00:58 Office Visit Miya Edouard 1.2.840.1 54525.1.1 3.104.2.7 .3.465699 .8 [id number] [facility] 2024-01-25 00:00:00 2024-01-25 00:00:00 Travel 1.2.840.1 46659.1.1 3.104.2.7 .3.920774 .8 1.2.840.114 350.1.13.10 4.2.7.3.698 084.8 [id number] [facility] 2024-01-11 00:00:00 2024-01-11 20:57:23 Refill Miya Edouard 1.2.840.1 58182.1.1 3.104.2.7 .3.903291 .8 [id number] [facility] 2024-01-10 11:15:00 2024-01-10 11:30:00 Correctional Agency Director Visit Olamide Simpson [facility]-Lab 1.2.840.1 75980.1.1 3.104.2.7 .3.999321 .8 [id number] [facility] 2024-01-10 10:15:00 2024-01-10 10:59:59 Outpatient R OLAMIDE SIMPSON LAURA [facility] [id number] [facility] 2024-01-10 10:15:00 2024-01-10 10:59:59 Office Visit Olamide Simpson 1.2.840.1 36263.1.1 3.104.2.7 .3.854748 .8 [id number] [facility] 2024-01-10 00:00:00 2024-01-10 00:00:00 Travel 1.2.840.1 22651.1.1 3.104.2.7 .3.776365 .8 1.2.840.114 350.1.13.10 4.2.7.3.698 084.8 [id number] [facility] 2024-01-05 08:40:00 2024-01-05 08:40:00 Outpatient R MIYA EDOUARD [facility] [id number] [facility] 2024-01-03 09:40:00 2024-01-03 09:40:00 Outpatient R MIYA EDOUARD [facility] [id number] [facility] 2023-12-29 00:00:00 2023-12-29 11:29:00 Miya Fisher 1.2.840.1 03136.1.1 3.104.2.7 .3.504303 .8 [id number] [facility] 2023-12-22 00:00:00 2023-12-22 10:59:17 Miya Fisher 1.2.840.1 84011.1.1 3.104.2.7 .3.172383 .8 [id number] [facility] 2023-12-03 00:00:00 2023-12-04 19:32:03 Miya Fisher 1.2.840.1 65324.1.1 3.104.2.7 .3.722054 .8 [id number] [facility] 2023-11-24 00:00:00 2023-11-24 11:05:58 Miya Fisher [facility] 1.2.840.114 350.1.13.10 4.2.7.2.686 [id number] [id number] [facility] 2023-11-09 00:00:00 2023-11-09 12:39:20 [facility]ill [facility] 1.2.840.114 350.1.13.10 4.2.7.2.686 [id number] 044 [id number] [facility] 2023-10-31 15:40:00 2023-10-31 15:40:00 Outpatient R MIYA EDOUARD [facility] [id number] [facility] 2023-10-14 00:00:00 2023-10-16 13:37:25 Refill Miya Edouard [facility] 1.2.840.114 350.1.13.10 4.2.7.2.686 [id number] [id number] [facility] 2023-10-12 13:00:00 2023-10-12 13:00:00 Outpatient R RAFFI RODRIGUEZ [facility] [id number] [facility] 2023-09-12 00:00:00 2023-09-25 13:31:56 Refill Eva [facility]breu [facility] 1.2.840.114 350.1.13.10 4.2.7.2.686 [id number] 059 [id number] [facility] 2023-09-18 00:00:00 2023-09-19 12:27:52 Refill Miya Edouard [facility] 1.2.840.114 350.1.13.10 4.2.7.2.686 [id number] 044 [id number] [facility] 2023-09-06 00:00:00 2023-09-06 14:18:38 Refill Miya Edouard [facility] 1.2.840.114 350.1.13.10 4.2.7.2.686 [id number] 044 [id number] [facility] 2023-08-22 15:30:00 2023-08-22 15:30:00 Outpatient R GELA BENEDICT [facility] [id number] [facility] 2023-08-22 15:30:00 2023-08-22 15:30:00 Outpatient R KOLTON PATRIZIA [facility] [id number] [facility] 2023-07-31 00:00:00 2023-07-31 00:00:00 Octavia Campa [facility] 1..114 350.1.13.10 4.2.7.2.686 [id number] 044 [id number] [facility] 2023-07-31 00:00:00 2023-07-31 00:00:00 Miya Fisher [facility] 1.840.114 350.1.13.10 4.2.7.2.686 [id number] 044 [id number] [facility] 2023-07-12 15:00:00 2023-07-12 15:00:00 Outpatient MIYA SANTANA [facility] [id number] [facility] 2023-06-29 00:00:00 2023-06-29 00:00:00 [facility] 1..114 350.1.13.10 4.2.7.2.686 [id number] [id number] [facility] 2023-06-17 00:00:00 2023-06-17 00:00:00 Miya Fisher [facility] 1.840.114 350.1.13.10 4.2.7.2.686 [id number] 044 [id number] [facility] 2023-05-29 00:00:00 2023-05-29 00:00:00 Refill Octavia Reid [facility] 1.84114 350.1.13.10 4.2.7.2.686 [id number] 044 [id number] [facility] 2023-05-29 00:00:00 2023-05-29 00:00:00 Patient Secure Msg Doctor Unassigned, [place] [facility] 1..114 350.1.13.10 4.2.7.2.686 [id number] [id number] [facility] 2023-04-30 00:00:00 2023-04-30 00:00:00 Refill Miya Edouard [facility] 1.84.114 350.1.13.10 4.2.7.2.686 [id number] 044 [id number] [facility] 2023-04-20 00:00:00 2023-04-20 00:00:00 Patient Secure Msg Jak [facility] 1.84.114 350.1.13.10 4.2.7.2.686 [id number] [facility] 2023-04-19 09:40:00 2023-04-19 09:40:00 Outpatient R MIYA EDOUARD [facility] [id number] [facility] 2023-04-05 10:32:54 2023-04-05 23:59:00 Outpatient R JAK [facility] [id number] [facility] 2023-04-05 10:32:54 2023-04-05 23:59:00 Hospital Encounter Jak [facility] 1.284.114 350.1.13.10 4.2.7.2.686 [id number] [facility] 2023-04-05 11:30:00 2023-04-05 11:45:00 Correctional Agency Director Visit Pob, [facility] 1.84.114 350.1.13.10 4.2.7.2.686 [id number] [facility] 2023-04-03 00:00:00 2023-04-03 00:00:00 Refill Miya Edouard [facility] 1.84.114 350.1.13.10 4.2.7.2.686 [id number] 044 [id number] [facility] 2023-03-30 00:00:00 2023-03-30 00:00:00 Refill Miya Edouard [facility] 1.84.114 350.1.13.10 4.2.7.2.686 [id number] [id number] [facility] 2023-03-21 15:30:00 2023-03-21 16:45:47 Outpatient R JAK [facility] [id number] [facility] 2023-03-21 15:30:00 2023-03-21 16:45:47 Office Visit Jak [facility]?KAYLYNN [facility] 1.84.114 350.1.13.10 4.2.7.2.686 [id number] [facility] 2023-03-21 00:00:00 2023-03-21 00:00:00 Orders Only Doctor Unassigned, [place] [facility] 1.84.114 350.1.13.10 4.2.7.2.686 [id number] [facility] 2023-01-24 00:00:00 2023-01-24 00:00:00 Patient Secure Msg Doctor Unassigned, [place] [facility] 1.2.840.114 350.1.13.10 4.2.7.2.686 [id number] 044 [id number] [facility] 2023-01-13 00:00:00 2023-01-13 00:00:00 Refill Miya Edouard [facility] 1.2.840.114 350.1.13.10 4.2.7.2.686 [id number] 044 [id number] [facility] 2023-01-11 00:00:00 2023-01-11 00:00:00 Patient Secure Msg Doctor Unassigned, [place] [facility] 1.2.840.114 350.1.13.10 4.2.7.2.686 [id number] 019 [id number] [facility] 2023-01-11 00:00:00 2023-01-11 00:00:00 Patient Secure Msg Doctor Unassigned, [place] [facility] 1.2.840.114 350.1.13.10 4.2.7.2.686 [id number] 019 [id number] [facility] 2023-01-05 00:00:00 2023-01-05 00:00:00 Orders Only Doctor Unassigned, [place] [facility] 1.2.840.114 350.1.13.10 4.2.7.2.686 [id number] [facility] 2023-01-04 11:30:00 2023-01-04 11:30:00 [employer]al [employer] Director Visit 2, Adc Lab Miya Edouard [facility] 1.2.840.114 350.1.13.10 4.2.7.2.686 [id number] [facility] 2023-01-04 09:40:00 2023-01-04 10:36:37 Outpatient R MIYA EDOUARD [facility] [id number] [facility] 2023-01-04 09:40:00 2023-01-04 10:36:37 Office Visit ThiagoMiya gonzales [facility] 1.2.840.114 350.1.13.10 4.2.7.2.686 [id number] 044 [id number] [facility] 2023-01-03 14:20:00 2023-01-03 14:20:00 Outpatient EVA JACOBS [facility] [id number] [facility] 2022-12-29 00:00:00 2022-12-29 00:00:00 Refill ColemanMiya hoang [facility] 1.2.840.114 350.1.13.10 4.2.7.2.686 [id number] [id number] [facility] 2022-12-29 00:00:00 2022-12-29 00:00:00 Telephone Miya Edouard [facility] 1.2.840.114 350.1.13.10 4.2.7.2.686 [id number] [facility] 2022-12-23 06:40:00 2022-12-23 11:30:00 Outpatient SHEREE BLOOD [facility] [id number] [facility] 2022-12-22 00:00:00 2022-12-22 00:00:00 Orders Only Doctor Unassigned, [place] [facility] 1.2.840.114 350.1.13.10 4.2.7.2.686 [id number] [facility] 2022-12-20 00:00:00 2022-12-20 00:00:00 Refill Thiagochristian Miya [facility] 1.2.840.114 350.1.13.10 4.2.7.2.686 [id number] [facility] 2022-12-06 14:00:00 2022-12-06 14:00:00 Outpatient EVA JACOBS [facility] [id number] [facility] 2022-12-01 12:00:00 2022-12-01 14:36:00 Emergency X JEY PEREZ [facility] ERT [id number] [facility] 2022-12-01 12:00:00 2022-12-01 14:36:00 Emergency Jey Perez S [facility] 1.2.840.114 350.1.13.10 4.2.7.2.686 [id number] [facility] 2022-11-28 00:00:00 2022-11-28 00:00:00 Telephone Miya Edouard [facility] 1.2.840.114 350.1.13.10 4.2.7.2.686 [id number] [facility] 2022-11-22 00:00:00 2022-11-22 00:00:00 Orders Only Doctor Unassigned, [place] [facility] 1.2.840.114 350.1.13.10 4.2.7.2.686 [id number] [facility] 2022-11-20 00:00:00 2022-11-20 00:00:00 Refill Miya Edouard [facility] 1.2.840.114 350.1.13.10 4.2.7.2.686 [id number] [facility] 2022-11-17 00:00:00 2022-11-17 00:00:00 Telephone Miya Edouard [facility] 1.2.840.114 350.1.13.10 4.2.7.2.686 [id number] [id number] [facility] 2022-11-11 00:00:00 2022-11-11 00:00:00 [facility] 1.2.840.114 350.1.13.10 4.2.7.2.686 [id number] [id number] [facility] 2022-11-09 10:40:00 2022-11-09 10:40:00 Outpatient R ALECEVA [facility] [id number] [facility] 2022-11-08 00:00:00 2022-11-08 00:00:00 Patient Secure Msg Edouard Miya [facility] 1.2.840.114 350.1.13.10 4.2.7.2.686 [id number] [id number] [facility] 2022-10-21 11:00:00 2022-10-21 15:17:15 Outpatient R SARMAD PITT HOW[facility] [id number] [facility] 2022-10-21 11:00:00 2022-10-21 15:17:15 Office Visit Sarmad Pitt [facility] 1.2.840.114 350.1.13.10 4.2.7.2.686 [id number] [facility] 2022-10-21 00:00:00 2022-10-21 00:00:00 Neo Dahljillnatalya [facility] 1.2.840.114 350.1.13.10 4.2.7.2.686 [id number] [id number] [facility] 2022-10-13 14:40:00 2022-10-13 15:44:42 [id number] 2022-10-13 14:40:00 2022-10-13 15:44:42 [facility] 1.2.840.114 350.1.13.10 4.2.7.2.686 [id number] [facility] 2022-10-12 15:08:01 2022-10-12 23:59:00 Outpatient R JAVAN MIYA [facility] [id number] [facility] 2022-10-12 15:08:01 2022-10-12 23:59:00 Hospital Encounter Javan Miya [facility] 1.2840.114 350.1.13.10 4.2.7.2.686 [id number] [facility] 2022-10-06 00:00:00 2022-10-06 00:00:00 Refill Javan [facility] 1.2.840.114 350.1.13.10 4.2.7.2.686 [id number] 044 [id number] [facility] 2022-10-05 00:00:00 2022-10-05 00:00:00 Letter (Out) Neurology [facility] 1.2.840.114 350.1.13.10 4.2.7.2.686 [id number] 092 [id number] [facility] 2022-10-04 16:00:00 2022-10-04 16:40:00 Office Visit Miya Edouard [facility] 1.2.840.114 350.1.13.10 4.2.7.2.686 [id number] 044 [id number] [facility] 2022-10-04 16:00:00 2022-10-04 16:00:00 Outpatient R NABILAJILLMIYA HOANG [facility] [id number] [facility] 2022-09-30 00:00:00 2022-09-30 00:00:00 Patient Secure Msg Doctor Unassigned, [place] [facility] 1.2840.114 350.1.13.10 4.2.7.2.686 [id number] 019 [id number] [facility] 2022-09-29 00:00:00 2022-09-29 00:00:00 Patient Secure Msg Doctor Unassigned, [place] [facility] 1.2.840.114 350.1.13.10 4.2.7.2.686 [id number] 019 [id number] [facility] 2022-09-28 12:47:00 2022-09-28 16:58:00 Emergency X [facility] [id number] [facility] 2022-09-28 12:47:00 2022-09-28 16:58:00 Emergency [facility] , [facility] 1.2.840.114 350.1.13.10 4.2.7.2.686 [id number] 084 [id number] [facility] 2022-09-27 00:00:00 2022-09-27 00:00:00 [facility] 1.2.840.114 350.1.13.10 4.2.7.2.686 [id number] 044 [id number] [facility] 2022-09-25 00:00:00 2022-09-25 00:00:00 [facility] 1.2.840.114 350.1.13.10 4.2.7.2.686 [id number] 044 [id number] [facility] 2022-09-18 00:00:00 2022-09-18 00:00:00 Refill Colemannatalya [facility] PROFESSIO NAL BUILDING 1.2840.114 350.1.13.10 4.2.7.2.686 [id number] 044 [id number] [facility] 2022-09-16 00:00:00 2022-09-16 00:00:00 Refill Miya Edouard [facility] PROFESSIO NAL BUILDING 1.2.840.114 350.1.13.10 4.2.7.2.686 [id number] 044 [id number] [facility] 2022-08-25 16:09:30 2022-08-25 23:59:00 Outpatient R RADIOLOGY [facility] [id number] [facility] 2022-08-25 16:09:30 2022-08-25 23:59:00 Hospital Encounter Radiology [facility] 1.2.840.114 350.1.13.10 4.2.7.2.686 [id number] [facility] 2022-08-25 16:00:00 2022-08-25 16:08:00 Hospital Encounter Radiology [facility] 1.2.840.114 350.1.13.10 4.2.7.2.686 [id number] [facility] 2022-08-25 15:45:00 2022-08-25 15:59:00 Hospital Encounter Radiology [facility] 1.2.840.114 350.1.13.10 4.2.7.2.686 [id number] [id number] [facility] 2022-08-25 00:00:00 2022-08-25 00:00:00 Orders Only Doctor Unassigned, [place] [facility] 1.2.840.114 350.1.13.10 4.2.7.2.686 [id number] [facility] 2022-08-24 00:00:00 2022-08-24 00:00:00 Refill Miya Edouard [facility] 1.2.840.114 350.1.13.10 4.2.7.2.686 [id number] 044 [id number] [facility] 2022-08-17 00:00:00 2022-08-17 00:00:00 Refill JavanMiya [facility] PROFESSIO NAL BUILDING 1.2.840.114 350.1.13.10 4.2.7.2.686 [id number] 044 [id number] [facility] 2022-07-21 00:00:00 2022-07-21 00:00:00 [facility] 1.2.840.114 350.1.13.10 4.2.7.2.686 [id number] 044 [id number] [facility] 2022-07-07 00:00:00 2022-07-07 00:00:00 Refill Octavia Reid [facility] 1.2.840.114 350.1.13.10 4.2.7.2.686 [id number] 044 [id number] [facility] 2022-06-24 00:00:00 2022-06-24 00:00:00 Refill [facility]yaMiya [facility] 1.2.840.114 350.1.13.10 4.2.7.2.686 [id number] 044 [id number] [facility] 2022-06-23 00:00:00 2022-06-23 00:00:00 Miya Fisher [facility] 1.2.840.114 350.1.13.10 4.2.7.2.686 [id number] 044 [id number] [facility] 2022-06-21 16:20:00 2022-06-21 16:20:00 Outpatient MIYA SANTANA [facility] [id number] [facility] 2022-06-14 16:00:00 2022-06-14 16:00:00 Outpatient ABBEY BALDWIN [facility] [id number] [facility] 2022-06-12 00:00:00 2022-06-12 00:00:00 Refill Octavia Reid [facility] 1.2840.114 350.1.13.10 4.2.7.2.686 [id number] 044 [id number] [facility] 2022-06-09 00:00:00 2022-06-09 00:00:00 Refill Miya Edouard [facility] PROFESSIO NAL BUILDING 1.2.840.114 350.1.13.10 4.2.7.2.686 [id number] 044 [id number] [facility] 2022-06-07 15:44:21 2022-06-07 23:59:00 Hospital Encounter Radiology [facility] 1.2840.114 350.1.13.10 4.2.7.2.686 [id number] 807 [id number] [facility] 2022-06-07 15:43:47 2022-06-07 15:43:47 Outpatient R RADIOLOGY [facility] [id number] [facility] 2022-06-07 15:43:47 2022-06-07 15:43:47 Hospital Encounter Radiology [facility] 1.2840.114 350.1.13.10 4.2.7.2.686 [id number] [id number] [facility] 2022-06-03 14:00:00 2022-06-03 14:29:10 Outpatient R MIYA EDOUARD [facility] [id number] [facility] 2022-06-03 14:00:00 2022-06-03 14:29:10 Office Visit Miya Edouard [facility] PROFESSIO NAL BUILDING 1.2.840.114 350.1.13.10 4.2.7.2.686 [id number] 044 [id number] [facility] 2022-05-28 00:00:00 2022-05-28 00:00:00 Refill Miya Edouard [facility] 1.2.840.114 350.1.13.10 4.2.7.2.686 [id number] 044 [id number] [facility] 2022-05-24 16:00:00 2022-05-24 16:00:00 Outpatient R ABBEY ROTHMAN [facility] [id number] [facility] 2022-05-12 15:40:00 2022-05-12 15:40:00 Outpatient R MIYA EDOUARD [facility] [id number] [facility] 2022-05-12 00:00:00 2022-05-12 00:00:00 Telephone Miya Edouard [facility] 1.2.840.114 350.1.13.10 4.2.7.2.686 [id number] 044 [id number] [facility] 2022-05-12 00:00:00 2022-05-12 00:00:00 Telephone Octavia Reid [facility] 1..840.114 350.1.13.10 4.2.7.2.686 [id number] 044 [id number] [facility] 2022-05-12 00:00:00 2022-05-12 00:00:00 Patient Secure Msg Miya Edouard [facility] 1.2.840.114 350.1.13.10 4.2.7.2.686 [id number] 044 [id number] [facility] 2022-04-21 15:45:00 2022-04-21 15:45:00 Outpatient R ABBEY ROTHMAN [facility] [id number] [facility] 2022-04-13 00:00:00 2022-04-13 00:00:00 Refill Miya Edouard [facility] 1.2.840.114 350.1.13.10 4.2.7.2.686 [id number] 044 [id number] [facility] 2022-03-30 00:00:00 2022-03-30 00:00:00 Refill Miya Edouard [facility] PROFESS[facility] 1.840.114 350.1.13.10 4.2.7.2.686 [id number] 044 [id number] [facility] 2022-02-18 00:00:00 2022-02-18 00:00:00 Outpatient R MIYA EDOUARD [facility] [id number] [facility] 2022-02-17 00:00:00 2022-02-17 00:00:00 Telephone Miya Edouard [facility] 1.84.114 350.1.13.10 4.2.7.2.686 [id number] [facility] 2022-02-10 12:54:03 2022-02-10 23:59:00 Outpatient R MIYA EDOUARD [facility] [id number] [facility] 2022-02-10 12:54:03 2022-02-10 23:59:00 Hospital Encounter Miya Edouard [facility] 1.84.114 350.1.13.10 4.2.7.2.686 [id number] 807 [id number] [facility] 2022-02-04 00:00:00 2022-02-04 00:00:00 Patient Secure Msg Doctor Unassigned, [place] [facility] 1..114 350.1.13.10 4.2.7.2.686 [id number] 807 [id number] [facility] 2022-02-03 08:19:00 2022-02-03 09:38:00 Emergency CAROLINA HALEY [facility] ERT [id number] [facility] 2022-02-03 08:19:00 2022-02-03 09:38:00 Emergency Zain Carolina Justice [facility] 1.2.840.114 350.1.13.10 4.2.7.2.686 [id number] 084 [id number] [facility] 2022-02-02 00:00:00 2022-02-02 00:00:00 Refill Miya Edouard [facility] 1.2.840.114 350.1.13.10 4.2.7.2.686 [id number] 044 [id number] [facility] 2022-01-27 16:00:00 2022-01-27 17:05:13 Outpatient R NABILAJILLNATALYAMIYA [facility] [id number] [facility] 2022-01-27 16:00:00 2022-01-27 17:05:13 Office Visit NabilajillbennieMiya gonzales [facility] 1.2.840.114 350.1.13.10 4.2.7.2.686 [id number] 044 [id number] [facility] 2022-01-26 07:45:00 2022-01-26 08:00:00 Correctional Agency Director Visit Pomed, Adc Lab Main Miya Edouard [facility] 1.2.840.114 350.1.13.10 4.2.7.2.686 [id number] [facility] 2022-01-26 07:45:00 2022-01-26 07:45:00 Outpatient R NABILAJILLBENNIEMIYA GONZALES [facility] [id number] [facility] 2022-01-12 00:00:00 2022-01-12 00:00:00 Telephone Miya Edouard [facility] 1.2.840.114 350.1.13.10 4.2.7.2.686 [id number] 044 [id number] [facility] 2022-01-03 00:00:00 2022-01-03 00:00:00 Telephone Miya Edouard [facility] 1.2.840.114 350.1.13.10 4.2.7.2.686 [id number] 044 [id number] [facility] 2021-12-30 00:00:00 2021-12-30 00:00:00 Telephone [facility] 1.2.840.114 350.1.13.10 4.2.7.2.686 [id number] 044 [id number] [facility] 2021-12-29 00:00:00 2021-12-29 00:00:00 Telephone [facility] Edouard [facility] 1.2.840.114 350.1.13.10 4.2.7.2.686 [id number] 044 [id number] [facility] 2021-12-24 00:00:00 2021-12-24 00:00:00 Refill Miya Edouard [facility] 1.2.840.114 350.1.13.10 4.2.7.2.686 [id number] 044 [id number] [facility] 2021-12-24 00:00:00 2021-12-24 00:00:00 Telephone ColemanbennieMiya gonzales [facility] 1.2.840.114 350.1.13.10 4.2.7.2.686 [id number] 044 [id number] [facility] 2021-12-23 16:00:00 2021-12-23 16:43:06 Outpatient R MIYA EDOUARD [facility] [id number] [facility] 2021-12-23 16:00:00 2021-12-23 16:43:06 Office Visit Colemannatalya Miya [facility] 1.2.840.114 350.1.13.10 4.2.7.2.686 [id number] 044 [id number] [facility] 2021-12-23 16:00:00 2021-12-23 16:00:00 Outpatient R MIYA EDOUARD [facility] [id number] [facility] 2021-12-23 00:00:00 2021-12-23 00:00:00 Telephone Miya Edouard [facility] 1.2.840.114 350.1.13.10 4.2.7.2.686 [id number] 044 [id number] [facility] 2021-12-19 00:00:00 2021-12-19 00:00:00 Refill Miya Edouard [facility] 1.2.840.114 350.1.13.10 4.2.7.2.686 [id number] 044 [id number] [facility] 2021-12-17 00:00:00 2021-12-17 00:00:00 Patient Secure Msg Doctor Unassigned, [place] [facility] 1.2.840.114 350.1.13.10 4.2.7.2.686 [id number] 044 [id number] [facility] 2021-12-09 00:00:00 2021-12-09 00:00:00 Telephone Miya Edouard [facility] 1.2.840.114 350.1.13.10 4.2.7.2.686 [id number] 044 [id number] [facility] 2021-12-08 15:40:00 2021-12-08 16:27:17 Outpatient R MIYA EDOUARD [facility] [id number] [facility] 2021-12-08 15:40:00 2021-12-08 16:27:17 Telemedici ne Visit Miya Edouard [facility] 1.2.840.114 350.1.13.10 4.2.7.2.686 [id number] 044 [id number] [facility] 2021-12-06 00:00:00 2021-12-06 00:00:00 Patient Secure Msg Edouard Miya [facility] 1.2.840.114 350.1.13.10 4.2.7.2.686 [id number] 044 [id number] [facility] 2021-12-03 07:45:00 2021-12-03 08:00:00 Correctional Agency Director Visit Pob, Adc Lab Main NabilajillMiya hoang [facility] 1.2840.114 350.1.13.10 4.2.7.2.686 [id number] [facility] 2021-12-03 07:45:00 2021-12-03 07:45:00 Outpatient R MIYA EDOUARD [facility] [id number] [facility] 2021-12-03 00:00:00 2021-12-03 00:00:00 Orders Only Doctor Unassigned, [place] [facility] 1.2840.114 350.1.13.10 4.2.7.2.686 [id number] [id number] [facility] 2021-11-26 00:00:00 2021-11-26 00:00:00 RefNathaly Ramsey [facility] 1.2840.114 350.1.13.10 4.2.7.2.686 [id number] 044 [id number] [facility] 2021-11-19 00:00:00 2021-11-19 00:00:00 Miya Fisher [facility] 1.2.840.114 350.1.13.10 4.2.7.2.686 [id number] 044 [id number] [facility] 2021-10-28 14:00:00 2021-10-28 14:15:00 Correctional Agency Director Visit Only, Ang Db Test Louis [facility] GABRIELA?KAYLYNN [facility] 1.2.840.114 350.1.13.10 4.2.7.2.686 [id number] [facility] 2021-10-28 14:00:00 2021-10-28 14:00:00 Outpatient R BREANNA MARIE [facility] [id number] [facility] 2021-10-24 09:30:00 2021-10-24 09:45:00 Correctional Agency Director Visit Only, Ang Db Test Louis [facility]?KAYLYNN [facility] 1.2.840.114 350.1.13.10 4.2.7.2.686 [id number] [facility] 2021-10-24 09:30:00 2021-10-24 09:28:17 Outpatient R BREANNA MARIE [facility] [id number] [facility] 2021-10-22 00:00:00 2021-10-22 00:00:00 Patient Secure Msg Miya Edouard [facility] 1.2.840.114 350.1.13.10 4.2.7.2.686 [id number] 044 [id number] [facility] 2021-10-05 00:00:00 2021-10-05 00:00:00 Telephone Miya Edouard [facility] 1.2.840.114 350.1.13.10 4.2.7.2.686 [id number] 044 [id number] [facility] 2021-10-01 16:30:00 2021-10-01 17:17:32 Outpatient R NATHALY RICHTER [facility] [id number] [facility] 2021-10-01 16:30:00 2021-10-01 17:17:32 Office Visit Nathaly Richter [facility] 1.2.840.114 350.1.13.10 4.2.7.2.686 [id number] 044 [id number] [facility] 2021-10-01 00:00:00 2021-10-01 00:00:00 Refill Miya Edouard [facility] 1.2.840.114 350.1.13.10 4.2.7.2.686 [id number] 044 [id number] [facility] 2021-09-28 00:00:00 2021-09-28 00:00:00 Refill Miya Edouard [facility] 1.2.840.114 350.1.13.10 4.2.7.2.686 [id number] 044 [id number] [facility] 2021-09-25 00:00:00 2021-09-25 00:00:00 Refill Miya Edouard [facility] 1.2.840.114 350.1.13.10 4.2.7.2.686 [id number] 044 [id number] [facility] 2021-09-24 00:00:00 2021-09-24 00:00:00 Refill Miya Edouard [facility] 1.2.840.114 350.1.13.10 4.2.7.2.686 [id number] 044 [id number] [facility] 2021-08-10 15:40:00 2021-08-10 15:40:00 Outpatient R MIYA EDOUARD [facility] [id number] [facility] 2021-07-24 00:00:00 2021-07-24 00:00:00 Refill Miya Edouard [facility] 1.2.840.114 350.1.13.10 4.2.7.2.686 [id number] 044 [id number] [facility] 2021-07-23 00:00:00 2021-07-23 00:00:00 Refill Miya Edouard [facility] [place] N[facility]ILD[facility] 1.2.840.114 350.1.13.10 4.2.7.2.686 [id number] 044 [id number] [facility] 2021-06-18 00:00:00 2021-06-18 00:00:00 Telephone Miya Edouard [facility] 1.2.840.114 350.1.13.10 4.2.7.2.686 [id number] [facility] 2021-06-14 00:00:00 2021-06-14 00:00:00 Telephone Miya Edouard [facility] 1.2.840.114 350.1.13.10 4.2.7.2.686 [id number] 044 [id number] [facility] 2021-06-10 00:00:00 2021-06-10 00:00:00 Telephone Miya Edouard [facility] 1.2.840.114 350.1.13.10 4.2.7.2.686 [id number] 044 [id number] [facility] 2021-06-08 00:00:00 2021-06-08 00:00:00 Telephone Miya Edouard [facility] [place] 1.2.840.114 350.1.13.10 4.2.7.2.686 [id number] 044 [id number] [facility] 2021-05-31 00:00:00 2021-05-31 00:00:00 Telephone Miya Edouard [facility] 1.2.840.114 350.1.13.10 4.2.7.2.686 [id number] 044 [id number] [facility] 2021-05-27 00:00:00 2021-05-27 00:00:00 RefMiya Delgado [facility] 1.2.840.114 350.1.13.10 4.2.7.2.686 [id number] 044 [id number] [facility] 2021-05-27 00:00:00 2021-05-27 00:00:00 Telephone Miya Edouard [facility] 1.2.840.114 350.1.13.10 4.2.7.2.686 [id number] [id number] [facility] 2021-05-20 15:30:00 2021-05-20 15:32:49 Outpatient R NIKA BERRY [facility] [id number] [facility] 2021-05-20 15:30:00 2021-05-20 15:32:49 Office Visit Nika Berry [facility] 1.2.840.114 350.1.13.10 4.2.7.2.686 [id number] [facility] 2021-05-18 00:00:00 2021-05-18 00:00:00 Mono Pickett [facility] 1.2.840.114 350.1.13.10 4.2.7.2.686 [id number] 044 [id number] [facility] 2021-05-13 00:00:00 2021-05-13 00:00:00 Telephone Miya Edouard [facility] 1.2.840.114 350.1.13.10 4.2.7.2.686 [id number] 044 [id number] [facility] 2021-05-11 00:00:00 2021-05-11 00:00:00 Telephone Miya Edouard [facility] ESSIO [facility] 1.2.840.114 350.1.13.10 4.2.7.2.686 [id number] 044 [id number] [facility] 2021-05-10 00:00:00 2021-05-10 00:00:00 Telephone Miya Edouard [facility] ACEIO NAL BUILDING 1.2.840.114 350.1.13.10 4.2.7.2.686 [id number] 044 [id number] [facility] 2021-05-10 00:00:00 2021-05-10 00:00:00 Telephone Miya Edouard [facility] ACEIO NAL BUILDING 1.2.840.114 350.1.13.10 4.2.7.2.686 [id number] 044 [id number] [facility] 2021-05-06 09:05:00 2021-05-06 14:37:00 Outpatient R JAMAL NIKA [facility] [place] [id number] [facility] 2021-05-06 09:05:00 2021-05-06 14:37:00 Hospital Encounter Adminor, [facility]ICAL [place] 1.2.840.114 350.1.13.10 4.2.7.2.686 [id number] [facility] 2021-05-06 09:05:00 2021-05-06 14:37:00 Outpatient R JAMAL, NIKA [facility] [place] [id number] [facility] 2021-05-06 12:31:00 2021-05-06 14:31:00 Surgery Ad [facility] [place] 1.2.840.114 350.1.13.10 4.2.7.2.686 [id number] [facility] 2021-05-06 00:00:00 2021-05-06 00:00:00 Telephone [place], [facility] 1.2840.114 350.1.13.10 4.2.7.2.686 [id number] [id number] [facility] 2021-05-05 16:00:00 2021-05-05 16:31:52 Outpatient R MIYA EDOUARD [facility] [id number] [facility] 2021-05-05 16:00:00 2021-05-05 16:31:52 Office Visit Miya Edouard [facility] 1.2840.114 350.1.13.10 4.2.7.2.686 [id number] [facility] 2021-05-04 12:15:00 2021-05-04 12:30:00 [employer] Director Visit Pob, Adc Lab Main Nika Berry [facility] 1.840.114 350.1.13.10 4.2.7.2.686 [id number] [facility] 2021-05-04 12:15:00 2021-05-04 12:15:00 Outpatient R [facility] [id number] [facility] 2021-05-04 12:00:00 2021-05-04 12:15:00 Laboratory Only Only, Adc Test Nika Berry [facility] 1..114 350.1.13.10 4.2.7.2.686 [id number] [facility] 2021-05-04 12:00:00 2021-05-04 12:00:00 Outpatient R NIKA BERRY [facility] [id number] [facility] 2021-05-04 00:00:00 2021-05-04 00:00:00 Orders Only Doctor Unassigned, [place] [facility] 1.0.114 350.1.13.10 4.2.7.2.686 [id number] [facility] 2021-04-22 14:30:00 2021-04-22 15:09:50 Outpatient R NIKA BERRY [facility] [id number] [facility] 2021-04-22 14:30:00 2021-04-22 15:09:50 Office Visit Nika Berry [facility] 1.2.840.114 350.1.13.10 4.2.7.2.686 [id number] [facility] 2021-04-22 15:00:00 2021-04-22 15:00:00 Outpatient R JAMAL NIKA [facility] [id number] [facility] 2021-04-22 00:00:00 2021-04-22 00:00:00 Refill Miya Edouard [facility] 1.2.840.114 350.1.13.10 4.2.7.2.686 [id number] [facility] 2021-04-20 16:15:00 2021-04-20 16:50:21 Outpatient R ABBEY ROTHMAN [facility] [id number] [facility] 2021-04-20 16:15:00 2021-04-20 16:50:21 Office Visit Rothman Abbey [facility] 1.2.840.114 350.1.13.10 4.2.7.2.686 [id number] [facility] 2021-04-19 00:00:00 2021-04-19 00:00:00 Refill Miya Edouard [facility] 1.2.840.114 350.1.13.10 4.2.7.2.686 [id number] [facility] 2021-04-12 00:00:00 2021-04-12 00:00:00 [place] Edouard Peter [facility] 1.2840.114 350.1.13.10 4.2.7.2.686 [id number] [facility] 2021-04-02 08:03:00 2021-04-02 10:35:00 Outpatient R ABBEY ROTHMAN [facility] DEB [id number] [facility] 2021-04-02 08:03:00 2021-04-02 10:35:00 Hospital Encounter Abbey Rothman [facility] 1.2.840.114 350.1.13.10 4.2.7.2.686 [id number] [facility] 2021-04-02 09:32:00 2021-04-02 10:30:00 Surgery Abbey Rothman [facility] 1.2840.114 350.1.13.10 4.2.7.2.686 [id number] [facility] [facility] 2021-04-02 00:00:00 2021-04-02 00:00:00 Orders Only Doctor Unassigned, [place] [facility] 1.2.840.114 350.1.13.10 4.2.7.2.686 [id number] [facility] 2021-03-19 15:30:00 2021-03-19 15:30:00 Outpatient R NIKA BERRY [facility] [id number] [facility] 2021-03-18 00:00:00 2021-03-18 00:00:00 Patient Secure Msg Doctor Unassigned, [place] [facility] 1.2840.114 350.1.13.10 4.2.7.2.686 [id number] [facility] 2021-03-16 00:00:00 2021-03-16 00:00:00 Telephone Nika Berry [facility] 1.2.840.114 350.1.13.10 4.2.7.2.686 [id number] [facility] 2021-03-11 00:00:00 2021-03-11 00:00:00 Patient Secure [facility]Roland [facility] 1.2.840.114 350.1.13.10 4.2.7.2.686 [id number] [facility] 2021-03-10 13:48:49 2021-03-10 23:59:00 [facility] 1.2.840.114 350.1.13.10 4.2.7.2.686 [id number] [facility] 2021-03-10 13:46:21 2021-03-10 13:47:00 [facility] [id number] 2021-03-10 13:46:21 2021-03-10 13:47:00 [facility] 1.2.840.114 350.1.13.10 4.2.7.2.686 [id number] [facility] 2021-03-04 12:51:00 2021-03-04 16:33:00 Outpatient R NIKA BERRY [facility] [id number] [facility] 2021-03-04 12:51:00 2021-03-04 16:33:00 Hospital Encounter Nika Berry [facility] 1.2.840.114 350.1.13.10 4.2.7.2.686 [id number] [facility] 2021-03-04 13:25:00 2021-03-04 15:26:00 Surgery AdNika gaxiola [facility] 1.840.114 350.1.13.10 4.2.7.2.686 [id number] [facility] 2021-03-04 00:00:00 2021-03-04 00:00:00 Telephone Eva Abreu [facility] 1.0.114 350.1.13.10 4.2.7.2.686 [id number] [facility] 2021-03-04 00:00:00 2021-03-04 00:00:00 Orders Only Doctor Unassigned, [place] [facility] 1.0.114 350.1.13.10 4.2.7.2.686 [id number] [facility] 2021-03-02 11:38:41 2021-03-02 11:53:41 Correctional Agency Director Visit 1, Adc Lab Nika Berry [facility] 1..114 350.1.13.10 4.2.7.2.686 [id number] [facility] 2021-03-02 11:30:00 2021-03-02 11:30:00 Outpatient R [facility] [id number] [facility] 2021-03-02 11:30:00 2021-03-02 11:30:00 Outpatient R NIKA BERRY [facility] [id number] [facility] 2021-03-02 00:00:00 2021-03-02 00:00:00 Orders Only Doctor Unassigned, [place] [facility] 1..114 350.1.13.10 4.2.7.2.686 [id number] [facility] 2021-03-01 00:00:00 2021-03-01 00:00:00 Outpatient R EVA ABREU [facility] [id number] [facility] 2021-03-01 00:00:00 2021-03-01 00:00:00 Outpatient R EVA ABREU [facility] [id number] [facility] 2021-02-26 16:00:00 2021-02-26 17:26:37 Outpatient R NIKA BERRY [facility] [id number] [facility] 2021-02-26 16:00:00 2021-02-26 17:26:37 [facility] [id number] 2021-02-26 15:40:04 2021-02-26 17:26:37 Office Visit Nika Berry [facility] 1.840.114 350.1.13.10 4.2.7.2.686 [id number] [facility] 2021-02-26 16:00:00 2021-02-26 16:00:00 Outpatient R NIKA BERRY [facility] [id number] [facility] 2021-02-26 00:00:00 2021-02-26 00:00:00 Prep For Surgery Nika Berry [facility] 1.2.84.114 350.1.13.10 4.2.7.2.686 [id number] [facility] 2021-02-26 00:00:00 2021-02-26 00:00:00 Orders Only Doctor Unassigned, [place] [facility] 1.84.114 350.1.13.10 4.2.7.2.686 [id number] [id number] [facility] 2021-02-25 00:00:00 2021-02-25 00:00:00 Prep For Surgery Diann Christianson [facility] 1.2.840.114 350.1.13.10 4.2.7.2.686 [id number] [facility] 2021-02-24 00:00:00 2021-02-24 00:00:00 Orders Only Doctor Unassigned, [place] [facility] 1.2840.114 350.1.13.10 4.2.7.2.686 [id number] [id number] [facility] 2021-02-24 00:00:00 2021-02-24 00:00:00 Patient Secure Msg Doctor Unassigned, [place] [facility] 1.2840.114 350.1.13.10 4.2.7.2.686 [id number] [facility] 2021-02-23 14:30:00 2021-02-23 15:55:10 Outpatient R ABBEY ROTHMAN [facility] [id number] [facility] 2021-02-23 14:21:20 2021-02-23 15:55:10 Office Visit Abeby Rothman [facility] 1..840.114 350.1.13.10 4.2.7.2.686 [id number] [facility] 2021-02-23 14:30:00 2021-02-23 14:30:00 Outpatient R ABBEY ROTHMAN [facility] [id number] [facility] 2021-02-23 00:00:00 2021-02-23 00:00:00 Orders Only Doctor Unassigned, [place] [facility] 1.2.840.114 350.1.13.10 4.2.7.2.686 [id number] [facility] 2021-02-17 14:10:00 2021-02-17 23:59:00 [facility] [id number] [facility] 2021-02-17 14:10:00 2021-02-17 23:59:00 [facility]..840.114 350.1.13.10 4.2.7.2.686 [id number] [facility] 2021-02-17 15:40:00 2021-02-17 14:10:44 [facility] [id number] [facility] 2021-02-17 15:40:00 2021-02-17 14:10:44 [facility] [id number] [facility] 2021-02-17 13:16:10 2021-02-17 14:10:44 [facility] 1.2.840.114 350.1.13.10 4.2.7.2.686 [id number] [id number] [facility] 2021-02-17 13:16:10 2021-02-17 14:10:44 [facility] 1.2.840.114 350.1.13.10 4.2.7.2.686 [id number] [facility] 2021-02-16 00:00:00 2021-02-16 00:00:00 Telephone NabilajillMiya hoang [facility] 1.2.840.114 350.1.13.10 4.2.7.2.686 [id number] [facility] 2021-02-11 00:00:00 2021-02-11 00:00:00 Patient Secure Msg Miya Edouard [facility] 1.2.840.114 350.1.13.10 4.2.7.2.686 [id number] [facility] 2021-02-11 00:00:00 2021-02-11 00:00:00 Telephone NabilaashleyMiya gonzales [facility] 1.2.840.114 350.1.13.10 4.2.7.2.686 [id number] [facility] 2021-02-10 10:33:05 2021-02-10 23:59:00 Hospital Encounter Miya Edouard [facility] 1.2.840.114 350.1.13.10 4.2.7.2.686 [id number] [facility] 2021-02-10 10:33:05 2021-02-10 23:59:00 Outpatient R MIYA EDOUARD [facility] [id number] [facility] 2021-02-09 15:57:13 2021-02-09 16:12:13 Correctional Agency Director Visit 2, Adc Lab Miya Edouard [facility] 1.2.840.114 350.1.13.10 4.2.7.2.686 [id number] [facility] 2021-02-09 15:00:00 2021-02-09 15:52:52 Outpatient R NIKA BERRY [facility] [id number] [facility] 2021-02-09 14:35:17 2021-02-09 15:52:52 Office Visit Nika Berry [facility] 1.2.840.114 350.1.13.10 4.2.7.2.686 [id number] [facility] 2021-02-09 15:00:00 2021-02-09 15:00:00 Outpatient R NIKA BERRY [facility] [id number] [facility] 2021-02-08 00:00:00 2021-02-08 00:00:00 [facility] 1.2.840.114 350.1.13.10 4.2.7.2.686 [id number] [facility] 2021-02-03 11:49:31 2021-02-03 23:59:00 Hospital Encounter Miya Edouard [facility] 1.2840.114 350.1.13.10 4.2.7.2.686 [id number] [facility] 2021-02-03 00:00:00 2021-02-03 00:00:00 Outpatient R MIYA EDOUARD [facility] [id number] [facility] 2021-02-03 00:00:00 2021-02-03 00:00:00 Telephone Miya Edouard [facility] 1.2.840.114 350.1.13.10 4.2.7.2.686 [id number] 044 [id number] [facility] 2021-01-30 00:00:00 2021-01-30 00:00:00 Patient Secure Msg Doctor Unassigned, [place] [facility] 1.2840.114 350.1.13.10 4.2.7.2.686 [id number] [facility] 2021-01-26 00:00:00 2021-01-26 00:00:00 Letter (Out) Miya Edouard [facility] 1.2.840.114 350.1.13.10 4.2.7.2.686 [id number] 044 [id number] [facility] 2021-01-22 00:00:00 2021-01-22 00:00:00 Patient Secure Msg Doctor Unassigned, [place] [facility] 1.20.114 350.1.13.10 4.2.7.2.686 [id number] [facility] 2021-01-21 00:00:00 2021-01-21 00:00:00 Patient Secure Msg Doctor Unassigned, [place] [facility] 1.2840.114 350.1.13.10 4.2.7.2.686 [id number] [facility] 2021-01-21 00:00:00 2021-01-21 00:00:00 Telephone Miya Edouard [facility] 1.2.840.114 350.1.13.10 4.2.7.2.686 [id number] 044 [id number] [facility] 2021-01-20 15:33:31 2021-01-20 17:02:48 Office Visit ColemanMiya hoang [facility] 1.2.840.114 350.1.13.10 4.2.7.2.686 [id number] [facility] 2021-01-20 16:00:00 2021-01-20 16:00:00 Outpatient R MIYA EDOUARD [facility] [id number] [facility] 2021-01-07 00:00:00 2021-01-07 00:00:00 Telephone Javan [facility] 1.2.840.114 350.1.13.10 4.2.7.2.686 [id number] [facility] 2020-12-11 15:40:00 2020-12-11 15:40:00 Outpatient R RUSSELL LAWLER [facility] [id number] [facility] 2020-12-11 11:44:57 2020-12-11 11:45:04 Imm/Inj Visit Nurse, Jimmy Pomed Immunizatio Russell Schmidt [facility] 1.2.840.114 350.1.13.10 4.2.7.2.686 [id number] [facility] 2020-11-14 13:56:15 2020-11-14 14:06:15 Imm/Inj Visit Vaccine, Fern Lucia [facility] Building One .840.114 350.1.13.10 4.2.7.2.686 [id number] [facility] 2020-11-14 13:30:00 2020-11-14 13:30:00 Outpatient R FERN EVANGELISTA [facility] [id number] [facility] 2020-10-24 00:00:00 2020-10-24 00:00:00 Telephone Provider, [facility] One .840.114 350.1.13.10 4.2.7.2.686 [id number] [facility] 2020-10-22 10:21:57 2020-10-22 11:20:22 Urgent Care Provider, [facility] Mary Harley [facility] One .840.114 350.1.13.10 4.2.7.2.686 [id number] [facility] 2020-10-22 10:20:00 2020-10-22 10:20:00 Outpatient R MARY HARLEY [facility] [id number] [facility] 2020-07-03 10:00:00 2020-07-03 10:00:00 Outpatient FESTUS STRAUSS [facility] [id number] [facility] 2020-07-02 00:00:00 2020-07-02 00:00:00 Patient Outreach Russell Lawler [facility] 1..840.114 350.1.13.10 4.2.7.2.686 [id number] [facility] 2020-04-23 16:20:00 2020-04-23 16:20:00 Outpatient MIYA SANTANA [facility] [id number] [facility] 2020-01-28 00:00:00 2020-01-28 00:00:00 Miya Fisher [facility] 1.2.840.114 350.1.13.10 4.2.7.2.686 [id number] [facility] 2020-01-28 00:00:00 2020-01-28 00:00:00 Refill Miya Edouard [facility] 1.2.840.114 350.1.13.10 4.2.7.2.686 [id number] [id number] 2020-01-21 15:55:21 2020-01-21 16:32:24 Office Visit Miya Edouard [facility] 1.2.840.114 350.1.13.10 4.2.7.2.686 [id number] [facility] 2020-01-21 15:55:21 2020-01-21 16:32:24 Office Visit Miya Edouard [facility] 1.2.840.114 350.1.13.10 4.2.7.2.686 [id number] 2020-01-21 16:00:00 2020-01-21 16:00:00 Outpatient Jhoana DAHLJILLNATALYAMIYA [facility] [id number] [facility] 2020-01-15 15:00:00 2020-01-15 15:00:00 Outpatient Jhoana DAHLJILLBENNIEMIYA GONZALES [facility] [id number] [facility] 2020-01-03 00:00:00 2020-01-03 00:00:00 Transition of Care Karen Copeland 1.2.840.114 350.1.13.10 4.2.7.2.686 [id number] [facility] 2020-01-01 14:37:00 2020-01-01 17:46:00 Emergency Ramirez Fink [facility] 1.2.840.114 350.1.13.10 4.2.7.2.686 [id number] [facility] 2020-01-01 13:13:43 2020-01-01 14:23:28 Office Visit Miya Edouard [facility] Building 1.114 350.1.13.10 4.2.7.2.686 [id number] [facility] 2020-01-01 13:20:00 2020-01-01 13:20:00 Outpatient R MIYA EDOUARD [facility] [id number] [facility] 2019-12-30 11:40:00 2019-12-30 11:40:00 Outpatient R SARAGEORGE WELLER [facility] [id number] [facility] 2019-12-30 10:16:20 2019-12-30 10:36:20 Laboratory Only Lab, [facility] Jennifer Andersongonzalez [facility] One 1.114 350.1.13.10 4.2.7.2.686 [id number] [facility] 2019-12-30 00:00:00 2019-12-30 00:00:00 Letter (Out) Javan [facility] 1.114 350.1.13.10 4.2.7.2.686 [id number] [facility] 2019-11-14 14:40:00 2019-11-14 14:40:00 Outpatient R GEORGE GIL [facility] [id number] [facility] 2019-11-14 14:18:15 2019-11-14 14:37:06 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, [facility] .114 350.1.13.10 4.2.7.2.686 [id number] [facility] 2019-10-15 13:23:22 2019-10-15 13:43:22 Laboratory Only Lab, [facility] 1.114 350.1.13.10 4.2.7.2.686 [id number] [id number] [facility] 2019-10-15 13:20:00 2019-10-15 13:20:00 Outpatient R JEFFERYYULYGEORGE [facility] [id number] [facility] 2019-08-28 09:01:21 2019-08-28 23:59:00 Outpatient R MARY HARLEY [facility] [id number] [facility] 2019-08-28 09:01:00 2019-08-28 23:59:00 Hospital Encounter Mary Harley [facility] 1.114 350.1.13.10 4.2.7.2.686 [id number] [facility] 2019-08-28 08:00:00 2019-08-28 08:00:00 Outpatient R MIYA EDOUARD [facility] [id number] [facility] 2019-08-28 00:00:00 2019-08-28 00:00:00 Telephone Mary Harley [facility] .114 350.1.13.10 4.2.7.2.686 [id number] [facility] 2019-06-03 13:49:16 2019-06-03 14:41:30 [facility] 1.114 350.1.13.10 4.2.7.2.686 [id number] [id number] [facility] 2019-06-03 00:00:00 2019-06-03 00:00:00 Letter (Out) [facility] 1.2.840.114 350.1.13.10 4.2.7.2.686 [id number] 044 [id number] [facility] 2019-06-03 00:00:00 2019-06-03 00:00:00 Telephone George Gil [facility] Building One 1.2.840.114 350.1.13.10 4.2.7.2.686 [id number] [id number] [facility] 2018-12-14 00:00:00 2018-12-14 00:00:00 Orders Only Doctor Unassigned, [place] [facility] 1.2.840.114 350.1.13.10 4.2.7.2.686 [id number] [facility] 2018-12-04 10:53:20 2018-12-04 11:38:20 Ancillary Visit Sherley Lofton Craig L [facility] Building 1.2.840.114 350.1.13.10 4.2.7.2.686 [id number] [facility] 2018-11-28 00:00:00 2018-11-28 00:00:00 Telephone Kevin Valadez Rosemary [facility] 1.2.840.114 350.1.13.10 4.2.7.2.686 [id number] [id number] [facility] 2018-11-25 12:54:02 2018-11-25 16:54:00 Emergency Betito Barroso [facility] 1.2.840.114 350.1.13.10 4.2.7.2.686 [id number] [facility] 2018-11-25 00:00:00 2018-11-25 00:00:00 Orders Only Doctor Unassigned, [place] [facility] 1.2.840.114 350.1.13.10 4.2.7.2.686 [id number] [facility] 2018-11-22 10:57:21 2018-11-22 16:41:21 Ancillary Visit Sherley LoftonMalik bryan [facility] 1.2.840.114 350.1.13.10 4.2.7.2.686 [id number] [facility] 2018-11-20 11:02:45 2018-11-20 11:47:45 Ancillary Visit Sherley Loftononald Malik Boothe [facility] nal Building 1.2.840.114 350.1.13.10 4.2.7.2.686 [id number] [facility] 2018-11-16 09:44:34 2018-11-16 23:59:00 Hospital Encounter Freddy [facility] 1.2.840.114 350.1.13.10 4.2.7.2.686 [id number] [facility] 2018-11-16 09:44:18 2018-11-16 23:59:00 Hospital Encounter Freddy [facility] Building 1.2.840.114 350.1.13.10 4.2.7.2.686 [id number] [facility] 2018-11-16 09:12:01 2018-11-16 10:21:34 Office Visit Freddy [facility] 1.2.840.114 350.1.13.10 4.2.7.2.686 [id number] [facility] 2018-11-15 00:00:00 2018-11-15 00:00:00 Kevin Stein [facility] nal Building 1.2.840.114 350.1.13.10 4.2.7.2.686 [id number] [id number] [facility] 2018-11-13 10:50:44 2018-11-13 11:00:07 Ancillary Visit Carmen Mott Craig L [facility] 1.2.840.114 350.1.13.10 4.2.7.2.686 [id number] [facility] Results Test Description Test Time Test Comments [...] No free fluid in the pelvic cul-de-sac. [facility] CT SOFT TISSUE NECK W CONTRAST [...] in size, stable since the prior study. [facility] MR LUMBAR SPINE WO CONTRAST 19:43:13 [...] adnexal region, the visualizedparts measures 6 cm. [facility] CT MAXILLOFACIAL/MA NDIBLE WO CONTRAST 23:48:15 [...] unremarkable. The mastoid air cells are clear. [facility] 18:05:38* Test Item Value Reference Range Interpretation Comme nts HGB A1C (test code = 4548-4) 5.3 % 4.0-5.7 MISAEL (test code = MISAEL) Reference RangesNormal: <5.7%Prediabetes: 5.7 - 6.4%Diabetes: > 6.5% Lab Interpretation (test code = 02498-3) Normal [facility] [id number] 17:23:12 * Test Item Value Reference Range Interpretation Comme nts TSH (test code = 4464266788) 1.09 0.45-4.70 Biotin has been reported to cause a negative bias, interpret results relative to patient's use of biotin. Lab Interpretation (test code = 95742-7) Normal [facility] [id number] 17:10:13* Test Item Value Reference Range Interpretation Comme nts FREE T4 (test code = 2960237558) 0.79 0.78-2.20 Lab Interpretation (test cod e = 30512-0) Normal [facility] [id number] 17:09:52* Test Item Value Reference Range Interpretation Comme nts FREE T3 (test code = 3634755420) 3.68 pg/mL 2.77-5.27 Lab Interpretation (test cod e = 85659-3) Normal [facility] (47218)(Total Cholesterol, Triglycerides, HDL)2024-02-01 16:47:08* Test Item Value Reference Range Interpretation Comme nts CHOL (test code = 8355314321) 233 mg/dL 120-200 H HDL (test code = 9671666722) 46 mg/dL >=50 L HDLC RATIO (test code = 2586431519) 5.1 <=4.5 H TRIG (test code = 3965948690) 142 mg/dL 30-170 LDL CHOL (test code = 06148-2) 159 mg/dL <=160 VLDL (test code = 3830585951) 28 mg/dL 5-60 Lab Interpretation (test cod e = 10318-9) Abnormal [facility] [id number] 16:15:08* Test Item Value Reference Range Interpretation Comme nts ESR (test code = 50541-7) 16 0-20 Lab Interpretation (test cod e = 90198-2) Normal [facility]oxidase (Tpo) [id number] 00:03:00 * Test Item Value Reference Range Interpretation Comme nts TPO Ab IgG (test code = 9188497703) 15.3 0.0-100.0 MISAEL (test code = MISAEL) Interpretation: Negative: ?<= 100 WHO UnitsPositive: ? > 100 WHO Units A positive result indicates the presence of TPO antibodies and suggests thepossibility of Megan's thyroiditis and/or Graves' disease. ?A negativeresult indicates no TPO antibodies or levels below the negative cut-off ofthe assay. ?The presence of antibodies to TPO can be used in conjunction withclinical findings and other laboratory tests to aid in the diagnosis ofautoimmune thyroid diseases such as Megan's thyroiditis and Graves'disease. Lab Interpretation (test code = 74287-4) Normal [facility]-[id number] 17:51:09* Test Item Value Reference Range Interpretation Comme nts ANTI-SCL70 (test code = 0186624724) Negative Negative MISAEL (test code = MISAEL) Positive - Antibod y detected.Negative - No antibody detected. Lab Interpretation (test code = 22213-6) [facility]-SSA(RO)2024-01-11 17:51:09* Test Item Value Reference Range Interpretation Comme nts ANTI-SSA(RO) (test code = 5176394529) Negative Negative MISAEL (test code = MISALE) Positive - Antibod y detected.Negative - No antibody detected. Lab Interpretation (test code = 46029-7) Normal [facility]-SM/[id number] 17:50:49* Test Item Value Reference Range Interpretation Comme nts ANTI-SMRNP (test code = 1118088332) Negative Negative MISAEL (test code = MISAEL) Positive - Antibod y detected.Negative - No antibody detected. Lab Interpretation (test code = 44048-2) Normal [facility] [id number] 17:50:49* Test Item Value Reference Range Interpretation Comme nts ANTI-CENTR (test code = 3094165335) Negative Negative MISAEL (test code = MISAEL) Positive - Antibod y detected.Negative - No antibody detected. Lab Interpretation (test code = 39107-5) Normal [facility] 17:50:49* Test Item Value Reference Range Interpretation Comme nts Anti-SSB(LA) (test code = 8071887490) Negative Negative MISAEL (test code = MISAEL) Positive - Antibod y detected.Negative - No antibody detected. Lab Interpretation (test code = 39430-2) Normal [facility] [id number] 20:29:51* Test Item Value Reference Range Interpretation Comme nts CRP (test code = 2174721265) 0.6 mg/dL <=0.8 Lab Interpretation (test cod e = 04058-6) Normal [facility] (25429)2024-01-10 19:51:48* Test Item Value Reference Range Interpretation Comme nts NA (test code = 2184299638) 137 mmol/L 135-145 K (test code = 3945247196) 4.6 mmol/L 3.5-5.0 CL (test code = 0595000499) 101 mmol/L 98-108 CO2 TOTAL (test code = 0652516584) 22 mmol/L 23-31 L AGAP (test code = 2651478646) 14 2-16 BUN (test code = 7810121995) 11 mg/dL 7-23 GLUCOSE (test code = 9871617772) 99 mg/dL 70-110 CREATININE (test code = 2160-0) 0.58 mg/dL 0.50-1.04 TOTAL BILI (test code = 6115302382) 0.3 mg/dL 0.1-1.1 CALCIUM (test code = 7466023663) 9.6 mg/dL 8.6-10.6 T PROTEIN (test code = 1250331604) 7.6 g/dL 6.3-8.2 ALBUMIN (test code = 6348457320) 4.7 g/dL 3.5-5.0 ALK PHOS (test code = 4875121365) 47 U/L 34-122 ALTv (test code = 1742-6) 21 U/L 5-35 AST(SGOT) (test code = 8921209019) 20 U/L 13-40 eGFR (test code = 16018-6) 114.6 mL/min/1.73m2 CKD-EPI eGFR (2020). Assuming creatinine has been stable day-to-day for at least three months, the eGFR indicates Category G1 (>= 90 mL/min/1.73 m2) Lab Interpretation (test code = 72931-0) Abnormal [facility] with [id number] 17:48:56* Test Item Value Reference Range Interpretation [...] 33.6 g/dL 31.6-35.1 RDW-SD (test code = 83460-0) 42.4 fL 39.0-49.9 RDW-CV (test code = 788-0) 12.9 % 12.0-15.5 PLT (test code = 777-3) 360 166-358 H MPV (test code = 27611-4) 9.3 fL 9.5-12.9 L NRBC/100 WBC (test code = 4475497166) 0.0 0.0-10.0 NRBC x10^3 (test code = 3489850081) See_Comment [Automated messa ge] The system which generated this result transmitted reference range: 10*3/?L. The reference range was not used to interpret this result as normal/abnormal. GRAN MAT (NEUT) % (test code = 770-8) 68.9 % IMM GRAN % (test code = 3467976671) 0.50 % LYMPH % (test code = 736-9) 22.7 % MONO % (test code = 5905-5) 5.4 % EOS % (test code = 713-8) 1.8 % BASO % (test code = 706-2) 0.7 % GRAN MAT x10^3(ANC) (test code = 1885119350) 5.96 10*3/uL 1.88-7.09 IMM GRAN x10^3 (test code = 4931489866) 0.04 10*3/uL 0.00-0.06 LYMPH x10^3 (test code = 731-0) 1.96 10*3/uL 1.32-3.29 MONO x10^3 (test code = 742-7) 0.47 10*3/uL 0.33-0.92 EOS x10^3 (test code = 711-2) 0.16 10*3/uL 0.03-0.39 BASO x10^3 (test code = 704-7) 0.06 10*3/uL 0.01-0.07 Lab Interpretation (test code = 71339-7) Abnormal [facility] [id number] 18:40:31 * Test Item Value Reference Range Interpretation Comme nts TSH (test code = 8362108063) 1.07 See_Comment [Automated messa ge] The system which generated this result transmitted reference range: 0.45 - 4.70 mIU/L. The reference range was not used to interpret this result as normal/abnormal. Lab Interpretation (test code = 11329-5) Normal [facility] [id number] 18:27:10* Test Item Value Reference Range Interpretation Comme nts FREE T4 (test code = 1447346664) 0.93 See_Comment [Automated [employer] ge] The system which generated this result transmitted reference range: 0.78 - 2.20 ng/dL:. The reference range was not used to interpret this result as normal/abnormal. Lab Interpretation (test code = 35585-2) Normal [facility] [id number] 18:26:49* Test Item Value Reference Range Interpretation Comme nts FREE T3 (test code = 3768443482) 3.75 pg/mL 2.77-5.27 Lab Interpretation (test cod e = 57283-2) Normal [facility] [id number] 18:18:01* Test Item Value Reference Range Interpretation Comme nts TROPONIN I (test code = 7280996035) 0.005 ng/mL <=0.034 MISAEL (test code = [...] of biotin. Lab Interpretation (test code = 60704-6) Normal [facility]. METABOLIC PANEL (93327)2022-12-01 18:08:16* Test Item Value Reference Range Interpretation Comme nts NA (test code = 9608337522) 139 mmol/L 135-145 K (test code = 2486004354) 4.0 mmol/L 3.5-5.0 CL (test code = 4772381856) 106 mmol/L 98-108 CO2 TOTAL (test code = 7419061258) 26 mmol/L 23-31 AGAP (test code = 1951916767) 7 2-16 BUN (test code = 2561940555) 13 mg/dL 7-23 GLUCOSE (test code = 7743918467) 98 mg/dL 70-110 CREATININE (test code = 8310300428) 0.59 mg/dL 0.50-1.04 TOTAL BILI (test code = 7976641574) 0.4 mg/dL 0.1-1.1 CALCIUM (test code = 8292073324) 7.8 mg/dL 8.6-10.6 L T PROTEIN (test code = 9892058273) 6.3 g/dL 6.3-8.2 ALBUMIN (test code = 6441429440) 3.6 g/dL 3.5-5.0 ALK PHOS (test code = 8940694158) 36 U/L 34-122 ALTv (test code = 1742-6) 18 U/L 5-35 AST(SGOT) (test code = 1825301743) 20 U/L 13-40 eGFR (test code = 7047485044) 111.2 mL/min/1.73m2 MISAEL (test code = MISAEL) [...] imaging tests). Lab Interpretation (test code = 51940-6) Abnormal [facility]IP[facility]2023-[facility] 18:08:01* Test Item Value Reference Range Interpretation Comme nts LIPASE (test code = 0707974667) 50 U/L 0-220 Lab Interpretation (test cod e = 27955-9) Normal [facility] WITH [id number] 17:55:37* Test Item Value Reference Range Interpretation Comme nts WBC (test code = 6690-2) 5.65 See_Comment [Automated Purch] The system which generated this result transmitted reference range: 4.30 - 11.10 10*3/?L. The reference range was not used to interpret this result as normal/abnormal. RBC (test code = 789-8) 3.92 See_Comment L [Automated messa ge] The system which generated [...] 33.2 g/dL 31.6-35.1 RDW-SD (test code = 27665-9) 45.7 fL 39.0-49.9 RDW-CV (test code = 788-0) 13.6 % 12.0-15.5 PLT (test code = 777-3) 295 See_Comment [Automated messa ge] The system which generated this result transmitted reference range: 166 - 358 10*3/?L. The reference range was not used to interpret this result as normal/abnormal. MPV (test code = 43368-9) 9.8 fL 9.5-12.9 NRBC/100 WBC (test code = 4288366696) 0.0 See_Comment [Automated [employer] ssage] The system which generated this result transmitted reference range: 0.0 - 10.0 /100 WBCs. The reference range was not used to interpret this result as normal/abnormal. NRBC x10^3 (test code = 2402012500) See_Comment [Automated [employer] ge] The system which generated this result transmitted reference range: 10*3/?L. The reference range was not used to interpret this result as normal/abnormal. GRAN MAT (NEUT) % (test code = 770-8) 66.5 % IMM GRAN % (test code = 1161675658) 0.20 % LYMPH % (test code = 736-9) 24.6 % MONO % (test code = 5905-5) 5.3 % EOS % (test code = 713-8) 2.7 % BASO % (test code = 706-2) 0.7 % GRAN MAT x10^3(ANC) (test code = 9124672205) 3.76 10*3/uL 1.88-7.09 IMM GRAN x10^3 (test code = 2361924742) 0.00-0.06 LYMPH x10^3 (test code = 731-0) 1.39 10*3/uL 1.32-3.29 MONO x10^3 (test code = 742-7) 0.30 10*3/uL 0.33-0.92 L EOS x10^3 (test code = 711-2) 0.15 10*3/uL 0.03-0.39 BASO x10^3 (test code = 704-7) 0.04 10*3/uL 0.01-0.07 Lab Interpretation (test code = 97760-6) Abnormal [facility] [id number] 20:08:39* Test Item Value Reference Range Interpretation Comme nts TROPONIN I (test code = 7629741214) 0.001 ng/mL <=0.034 MISAEL (test code = [...] of biotin. Lab Interpretation (test code = 09071-3) Normal [facility]N-TERMINAL [id number] 20:05:00* Test Item Value Reference Range Interpretation Comme nts NT-proBNP (test code = 4733776774) 76 pg/mL <=125 MISAEL (test code = MISAEL) Biotin has been reported to cause a negative bias, interpret results relative to patient's use of biotin. Lab Interpretation (test code = 32988-9) Normal [facility] METABOLIC PANEL (96290)2022-09-28 19:54:36* Test Item Value Reference Range Interpretation Comme nts NA (test code = 3151762106) 138 mmol/L 135-145 K (test code = 4449968249) 3.8 mmol/L 3.5-5.0 CL (test code = 4570822730) 103 mmol/L 98-108 CO2 TOTAL (test code = 8087921798) 24 mmol/L 23-31 AGAP (test code = 3611598185) 11 2-16 BUN (test code = 5963154293) 14 mg/dL 7-23 GLUCOSE (test code = 6208751990) 98 mg/dL 70-110 CREATININE (test code = 1760285164) 0.66 mg/dL 0.50-1.04 TOTAL BILI (test code = 0606770681) 0.5 mg/dL 0.1-1.1 CALCIUM (test code = 9643022542) 9.6 mg/dL 8.6-10.6 T PROTEIN (test code = 4442056642) 7.4 g/dL 6.3-8.2 ALBUMIN (test code = 6935283373) 4.5 g/dL 3.5-5.0 ALK PHOS (test code = 6775787264) 60 U/L 34-122 ALTv (test code = 1742-6) 17 U/L 5-35 AST(SGOT) (test code = 3209016583) 19 U/L 13-40 eGFR (test code = 2552259357) 97.7 mL/min/1.73m2 MISAEL (test code = MISAEL) [...] or urine or abnormalities in imaging tests). [facility]PO[facility] [id number] 19:44:00* Test Item Value Reference Range Interpretation Comme [facility] POCT PREG (test code = 1605) Negative On board controls acceptable with C Line (test code = 3574) Yes POCT PREG LOT # (test code = 3575) [id number] POCT PREG TEST DATE ( test code = 3576) 01-21-2024 Lab Interpretation (test cod e = 92213-5) Normal [facility]ACTIV[facility] PARTIAL THRMPLAS [id number] 19:40:13* Test Item Value Reference Range Interpretation Comme [facility] APTT Patient (test code = 3173-2) 30 See_Comment [Automated message] The system which generated this result transmitted reference range: 23 - 38 Seconds. The reference range was not used to interpret this result as normal/abnormal. MISAEL (test code = MISAEL) The [facility] patient population mean normal value for aPTT is 30 seconds. Lab Interpretation (test code = 98503-3) Normal [facility] HospitalPROTHROMBIN TIME / [id number] 19:38:12* Test Item Value Reference Range Interpretation Comme [facility] PROTIME PATIENT (test code = 5964-2) 14.4 See_Comment [Automated Playy[employer] ge] The system which generated this result transmitted reference range: 12.0 - 14.7 Seconds. The reference range was not used to interpret this result as normal/abnormal. INR (test code = 6301-6) 1.2 Normal INR <1.1; Warfarin Therapeutic range 2.0 to 3.0 or 2.5 to 3.5, depending upon the indications. Lab Interpretation (test code = 30518-4) Normal [facility] WITH [id number] 19:26:08* Test Item Value Reference Range Interpretation Comme nts WBC (test code = 6690-2) 6.65 See_Comment [Automated messa ge] The system which [...] 34.5 g/dL 31.6-35.1 RDW-SD (test code = 45906-0) 40.5 fL 39.0-49.9 RDW-CV (test code = 788-0) 12.7 % 12.0-15.5 PLT (test code = 777-3) 347 See_Comment [Automated messa ge] The system which generated this result transmitted reference range: 166 - 358 10*3/?L. The reference range was not used to interpret this result as normal/abnormal. MPV (test code = 85694-6) 9.6 fL 9.5-12.9 NRBC/100 WBC (test code = 8735456523) 0.0 See_Comment [Automated [employer] ssage] The system which generated this result transmitted reference range: 0.0 - 10.0 /100 WBCs. The reference range was not used to interpret this result as normal/abnormal. NRBC x10^3 (test code = 4122409812) See_Comment [Automated messa ge] The system which generated this result transmitted reference range: 10*3/?L. The reference range was not used to interpret this result as normal/abnormal. GRAN MAT (NEUT) % (test code = 770-8) 74.1 % IMM GRAN % (test code = 6239323750) 0.80 % LYMPH % (test code = 736-9) 18.8 % MONO % (test code = 5905-5) 5.1 % EOS % (test code = 713-8) 0.6 % BASO % (test code = 706-2) 0.6 % GRAN MAT x10^3(ANC) (test code = 0343435110) 4.93 10*3/uL 1.88-7.09 IMM GRAN x10^3 (test code = 3716672570) 0.05 10*3/uL 0.00-0.06 LYMPH x10^3 (test code = 731-0) 1.25 10*3/uL 1.32-3.29 L MONO x10^3 (test code = 742-7) 0.34 10*3/uL 0.33-0.92 EOS x10^3 (test code = 711-2) 0.04 10*3/uL 0.03-0.39 BASO x10^3 (test code = 704-7) 0.04 10*3/uL 0.01-0.07 Lab Interpretation (test code = 13247-9) Abnormal [facility]OLIC PAN[facility] (44069)2022-02-03 14:01:08* Test Item Value Reference Range Interpretation Comme nts NA (test code = 4253680543) 140 mmol/L 135-145 K (test code = 7823469171) 4.0 mmol/L 3.5-5 CL (test code = 7811709772) 104 mmol/L 98-108 CO2 TOTAL (test code = 2567051802) 22 mmol/L 23-31 L AGAP (test code = 7618238095) 2-16 BUN (test code = 8196485663) 17 mg/dL 7-23 GLUCOSE (test code = 2495839624) 118 mg/dL 70-110 H CREATININE (test code = 1947358643) 0.58 mg/dL 0.5-1.04 TOTAL BILI (test code = 6704227047) 0.3 mg/dL 0.1-1.1 CALCIUM (test code = 5865783994) 9.5 mg/dL 8.6-10.6 T PROTEIN (test code = 6169437086) 7.2 g/dL 6.3-8.2 ALBUMIN (test code = 4501042038) 4.5 g/dL 3.5-5 ALK PHOS (test code = 4022055069) 54 U/L 34-122 ALTv (test code = 1742-6) 28 U/L 5-35 AST(SGOT) (test code = 5452135825) 21 U/L 13-40 eGFR (test code = 8790792391) mL/min/1.73m2 MISAEL (test code = MISAEL) Association [...] imaging tests). Lab Interpretation (test code = 34416-4) Abnormal [facility] WITH [id number] 13:50:24* Test Item Value Reference Range Interpretation Comme nts WBC (test code = 6690-2) See_Comment [Automated messa ge] The system which [...] 33.9 g/dL 31.6-35.1 RDW-SD (test code = 08974-3) 42.5 fL 39-49.9 RDW-CV (test code = 788-0) 13.2 % 12-15.5 PLT (test code = 777-3) See_Comment H [Automated messa ge] The system which generated this result transmitted reference range: 166 - 358 10*3/?L. The reference range was not used to interpret this result as normal/abnormal. MPV (test code = 88750-0) 9.2 fL 9.5-12.9 L NRBC/100 WBC (test code = 2649936465) See_Comment [Automated [employer] ssage] The system which generated this result transmitted reference range: 0.0 - 10.0 /100 WBCs. The reference range was not used to interpret this result as normal/abnormal. NRBC x10^3 (test code = 9306022415) See_Comment [Automated messa ge] The system which generated this result transmitted reference range: 10*3/?L. The reference range was not used to interpret this result as normal/abnormal. GRAN MAT (NEUT) % (test code = 770-8) 77.7 % IMM GRAN % (test code = 6795481887) 0.30 % LYMPH % (test code = 736-9) 15.5 % MONO % (test code = 5905-5) 5.0 % EOS % (test code = 713-8) 1.1 % BASO % (test code = 706-2) 0.4 % GRAN MAT x10^3(ANC) (test code = 5707953792) 5.48 10*3/uL 1.88-7.09 IMM GRAN x10^3 (test code = 5572973051) 0-0.06 LYMPH x10^3 (test code = 731-0) 1.09 10*3/uL 1.32-3.29 L MONO x10^3 (test code = 742-7) 0.35 10*3/uL 0.33-0.92 EOS x10^3 (test code = 711-2) 0.08 10*3/uL 0.03-0.39 BASO x10^3 (test code = 704-7) 0.03 10*3/uL 0.01-0.07 Lab Interpretation (test code = 13582-8) Abnormal [facility] History and Physical Notes Date/Time Note Provider Source 2024-03-04 16:51:56 Consult/Referral Fibroids, submucosal - CONSULT/REFERRAL [employer] Gynecology Renal cyst, acquired, left - Consult/Referral Nephrology [facility] 2024-02-23 11:00:00 Imaging with Consult/Referral Adnexal cyst - US ABDOMEN COMPLETE; Future - CONSULT/REFERRAL [employer] Gynecology [facility]"
[2024-05-01] MEDS ORDERED: ASPIRIN EC 81 MG TAB PO ONE (10:22)
[2024-05-01] MEDS ORDERED: ONDANSETRON 4 MG/2 ML VIAL ONE (10:22)
[2024-05-01] MEDS ORDERED: FAMOTIDINE 20 MG/2 ML VIAL IV ONE (10:23)
[2024-05-01] MEDS ORDERED: NA CHLORIDE 0.9% 500 ML ONE (10:23)
[2024-05-01] MEDS ORDERED: FENTANYL CITR 100 MCG/2 ML ONE (10:23)
--- NOTE | 2024-05-01 10:45 | RAD REPORT ---
EXAMINATION: US Abdomen Exam Limited CLINICAL HISTORY: [facility] MAIN Y ABD PAIN Bed Name: COMPARISON: 01/06/2023. TECHNIQUE: Limited upper abdominal grayscale and color flow sonographic images. FINDINGS: Gallbladder: Normal. Bile ducts: No intrahepatic or extrahepatic biliary dilatation. Common bile duct measures 0.3 mm. Liver: Visualized portions of the liver demonstrate normal echogenicity with no suspicious findings. Fluid: No ascites. IMPRESSION: No abnormalities on right upper quadrant ultrasound.
--- NOTE | 2024-05-01 10:48 | RAD REPORT ---
EXAMINATION: ONE VIEW CHEST XR CLINICAL INDICATION: Female, 44 years old.,CHEST PAIN TECHNIQUE: Frontal chest projection is submitted. Examination is limited by patient positioning and t echnique. COMPARISON: 04/20/2024 FINDINGS: The lungs are well inflated and clear. No pneumothorax or sizable effusion. The heart is normal in s ize. Mediastinal contours are unremarkable. IMPRESSION: No acute intrathoracic abnormalities.
[2024-05-01 10:57] LABS: Absolute Eosinophils 0.2 K/uL (0-0.5); Absolute Lymphocytes (CBC) 1.1 K/uL (0.7-4.9); Absolute Monocytes 0.3 K/uL (0.1-1.3); Absolute Neutrophil 4.8 K/uL (1.8-8.0); Basophils % 0.5 % (0-1.3); Eosinophils % 2.4 % (0-4.4); Hematocrit 40.6 % (36.0-45.0); Hemoglobin 13.5 g/dL (12.0-15.0); Lymphocytes % 16.8 % (15.3-44.8); MCHC 33.1 g/dL (32.0-36.0); MCV 90.6 fL (80-100); MPV 7.7 fL (7.6-11.3); Monocytes % 5.3 % (3.3-12.3); Nucleated Red Blood Cells % 0.1 % (0-0); Platelets 340 thou/uL (152-406); RBC Red Blood Cell Count 4.48 M/uL (3.86-4.86); Red Cell Distribution Width 13.6 % (12.1-15.2)
[2024-05-01 11:01] LABS: Specific Gravity 1.023 (1.005-1.030); Urine Bacteria <20 /HPF (<20); Urine Bilirubin NEGATIVE (Negative); Urine Blood 2+ (Negative); Urine Clarity Extremely Turbid (Clear); Urine Color Yellow (Yellow); Urine Culture Reflex Order NOT NEEDED; Urine Glucose NEGATIVE (Negative); Urine Ketones 1+ (Negative); Urine Microscopic Reflex YN ORDER UMIC; Urine Mucus 1+ /HPF (None Seen); Urine Nitrite NEGATIVE (Negative); Urine Protein TRACE (Negative); Urine Urobilinogen Normal (Normal); Urine WBC <5 /HPF (<5); Urine WBC Clump Rare /HPF (None Seen); Urine Yeast (Budding) Trace /HPF (None Seen)
[2024-05-01 11:22] LABS: ALT/SGPT 22 U/L (13-56); Albumin 3.5 g/dL (3.4-5.0); Albumin/Globulin Ratio 0.9 (1.1-1.8); Alkaline Phosphatase 48 U/L (45-117); Anion Gap 7.6 mEq/L (5.0-15.0); BUN Blood Urea Nitrogen 10 mg/dL (7-18); Bicarbonate 26 mEq/L (21-32); Bilirubin Total 0.4 mg/dL (0.2-1.0); Globulin 3.8 g/dL (2.3-3.5); Glomerular Filtration Rate 100 ml/min (=/>90); Glucose Level 106 mg/dL (74-106); Lipase 25 U/L (13-75); Magnesium 2.1 mg/dL (1.6-2.4); NT PRO-BNP 158 pg/mL (<125); Potassium 3.6 mEq/L (3.5-5.1); Protein, Total 7.3 g/dL (6.4-8.2); Sodium Level 138 mEq/L (136-145); Troponin High Sensitivity 3.3 pg/mL (<58.9)
[2024-05-01 11:24] LABS: AST/SGOT < 10 U/L (15-37); Bilirubin Direct < 0.2 mg/dL (0-0.2); Bilirubin Indirect, Calculated 0.2 mg/dL (0.2-0.8)
[2024-05-01 11:41] LABS: D-Dimer 0.273 FEUug/mL (0-0.500); PT Prothrombin Time 13.1 SECONDS (9.4-12.5); Protime INR 1.25
[2024-05-01] MEDS ORDERED: CEFTRIAXONE 1000 MG/VIAL ONE (11:55)
[2024-05-01] MEDS ORDERED: NA CHLORIDE 0.9% 100 ML ONE (11:55)
--- NOTE | 2024-05-01 12:12 | RAD REPORT ---
EXAM: CT Chest For Pe Angio TECHNIQUE: CT angiogram of the chest was performed following intravenous contrast administration, inc luding sagittal and coronal as well as maximum intensity projection reformats. One or more of the following dose reduction techniques were used: Automated exposure control, adjustment of the mA and k V according to patient size, and iterative reconstruction. Unless otherwise specified, incidental findings do not require dedicated imaging follow-up. INDICATION: [facility] MAIN CHEST PAIN Bed Name: 14 Y COMPARISON: Chest radiograph of earlier the same day. FINDINGS: LINES/TUBES: None. PULMONARY ARTERIES: Main pulmonary arteries are normal in caliber. No filling defects within the pul monary arteries to suggest pulmonary embolus. LUNGS AND AIRWAYS: The lungs and central airways are normal without focal abnormality. PLEURA: No effusion or pneumothorax. HEART AND MEDIASTINUM: The visualized thyroid gland is normal. No mediastinal, hilar, or axillary lym phadenopathy. Heart is unremarkable. No pericardial effusion. SOFT TISSUES AND BONES: No acute osseous abnormality. No significant soft tissue finding. UPPER ABDOMEN: Unremarkable. IMPRESSION: No evidence of acute central pulmonary emboli. No suspicious intrathoracic findings..
--- NOTE | 2024-05-01 12:17 | RAD REPORT ---
EXAMINATION: CT Abdomen Pelvis W Contrast CLINICAL INDICATION: Female, 44 years old. ABD PAIN TECHNIQUE: CT abdomen and pelvis was performed, after the administration of IV contrast, as per [facility]. Axial, sagittal and coronal reconstructions were obtained. One or more of the following dose reduction techniques were used: Automated exposure control, adjustment of the mA and k V according to patient size, and iterative reconstruction. Unless otherwise specified, incidental findings do not require dedicated imaging follow-up. COMPARISON: No prior exam. FINDINGS: LOWER CHEST: The visualized lung bases are clear. LIVER: Normal in size and contour. No focal lesion. BILIARY SYSTEM: No suspicious abnormalities. SPLEEN: Normal size. No focal lesion. PANCREAS: No mass, ductal dilation, or martine-pancreatic fluid. ADRENALS: Normal; no mass. KIDNEYS: Normal size and contour. No hydronephrosis. 3 mm calculus near the left pelvic ureter juncti on. Other 1-2 mm calculi along the left mid to lower kidney. URINARY BLADDER: Unremarkable. GASTROINTESTINAL TRACT: No evidence of free air, significant intra-abdominal free fluid, bowel obstru ction or abscess. Mild distal colonic diverticulosis. APPENDIX: Normal appendix. LYMPH NODES: No lymphadenopathy. MUSCULOSKELETAL: No acute or suspicious osseous abnormality. ADDITIONAL FINDINGS: Nonspecific mild fat stranding in the mesenteric root. This could be idiopathic or related to multiple possible etiologies, including but not limited to an upper abdominal infectious/inflammatory process, panniculitis, and can even be seen with neoplastic conditions such a s lymphoma. Overall, the appearance is stable. IUD in place. Small left adnexal cysts or follicles, likely physiologic. IMPRESSION: A 3 mm calculus is seen near the left ureteropelvic junction, with no evidence of hydroureteronephros is. Other nonobstructing left renal 1-2 mm calculi. Other incidental findings including nonspecific mild mesenteric root fat stranding, which appears sta ble.
--- NOTE | 2024-05-01 12:17 | ER ---
Nurse's Notes [facility] Name: Octavia Lo Age: 44 yrs Sex: Female : 1980 Arrival Date: 05/01/2024 Time: 09:59 Bed 15 Private MD: Diagnosis: Chest pain, unspecified;Abdominal tenderness;Epigastric abdominal tenderness;UTI/ Urinary tract infection, site not specified;Calculus of kidney;Calculus of kidney with calculus of ureter-possible Presentation: 05/01 10:02 Chief complaint: Patient states: "I was here recently with the same thing, I am having aa5 chest pain, epigastric pain, chills, and vomiting". 10:02 Coronavirus screen: vomiting. Ebola Screen: Patient denies travel to an Ebola-affected [facility] area in the 21 days before illness onset. Initial Sepsis Screen: Does the patient meet any 2 criteria? No. Patient's initial sepsis screen is negative. Does the patient have a suspected source of infection? No. Patient's initial sepsis screen is negative. Risk Assessment: Do you want to hurt yourself or someone else? Patient reports no desire to harm self or others. Onset of symptoms was 2024. 10:02 Acuity: ONUR 3 aa5 10:02 Method Of Arrival: Ambulatory aa5 Triage Assessment: 10:05 General: Appears in no apparent distress. uncomfortable, obese, Behavior is calm, bp cooperative, appropriate for age. Pain: Complains of pain in epigastric area. EENT: No deficits noted. Neuro: No deficits noted. Cardiovascular: No deficits noted. Respiratory: No deficits noted. GI: Reports epigastric pain. : No signs and/or symptoms were reported regarding the genitourinary system. Derm: No deficits noted. Musculoskeletal: No deficits noted. 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 - Infectious Disease History:: Denies. - Social history:: Smoking status: Patient denies any tobacco usage or history of. - Family history:: not pertinent. Screenin:46 [facility] ED Fall Risk Assessment (Adult) History of falling in the last 3 months, bp including since admission No falls in past 3 months (0 pts) Confusion or Disorientation No (0 pts) Intoxicated or Sedated No (0 pts) Impaired Gait No (0 pts) Mobility Assist Device Used No (0 pt) Altered Elimination No (0 pt) Score/Fall Risk Level 0 - 2 = Low Risk Oriented to surroundings. Abuse screen: Denies threats or abuse. Denies injuries from another. Nutritional screening: No deficits noted. Tuberculosis screening: No symptoms or risk factors identified. Assessment: 10:10 General: Appears in no apparent distress. uncomfortable, obese, Behavior is bp cooperative, appropriate for age, anxious. Pain: Pain does not radiate. Pain began suddenly. Cardiovascular: Rhythm is sinus rhythm. 12:02 Reassessment: Patient appears in no apparent distress at this time. Patient is alert, bp oriented x 3, equal unlabored respirations, skin warm/dry/pink. Vital Signs: 10:02 BP 172 / 88; Pulse 78; Resp 18 S; Temp 98.2(O); Pulse Ox 100% on R/A; Weight 99.79 kg aa5 (R); Height 5 ft. 5 in. (R); 12:01 BP 137 / 95; Pulse 56; Resp 16; Pulse Ox 97% ; bp 12:29 BP 146 / 102; Pulse 61; Resp 16; Pulse Ox 96% ; bp 10:02 Body Mass Index 36.61 (99.79 kg, 165.1 cm) aa5 ED Course: 10:00 Patient arrived in ED. mr 10:00 Sulaiman Dykes MD is Attending Physician. kari 10:02 Arm band placed on. aa5 10:10 Triage completed. aa5 10:14 Watson Del Angel, DAVI is Primary Nurse. bp 10:28 US Abdomen Limited Sent. bp 10:32 US Abdomen Limited In Process Unspecified. EDMS 10:37 XRAY Chest (1 view) In Process Unspecified. EDMS 10:45 Inserted saline lock: 20 gauge in right antecubital area, using aseptic technique. bp Blood collected. Flushed with 10 mL NS. 10:45 Initial lab(s) drawn, by me, sent to lab. Urine collected: clean catch specimen, clear. ty 10:46 Patient has correct armband on for positive identification. Client placed on continuous bp cardiac and pulse oximetry monitoring. NIBP monitoring applied. media monitor on. Pulse ox on. NIBP on. 10:50 Urinalysis w/ reflexes Sent. ty 10:50 Lipase Sent. ty 10:50 Basic Metabolic Panel Sent. ty 10:50 CBC with Diff Sent. ty 10:50 D-Dimer Sent. ty 10:50 LFT's Sent. ty 10:50 Magnesium Sent. ty 10:50 NT PRO-BNP Sent. ty 10:50 PT-INR Sent. ty 11:38 CT Chest For PE Angio In Process Unspecified. EDMS 11:38 CT Abd/Pelvis - IV Contrast Only In Process Unspecified. EDMS 12:17 Nargis Jacobs MD is Referral Physician. kari 12:17 Bhaskar Brasher MD is Referral Physician. kari 12:29 No provider procedures requiring assistance completed. IV discontinued, intact, bp bleeding controlled, No redness/swelling at site. Pressure dressing applied. Patient maintains SpO2 saturation greater than 95% on room air. 12:30 Provided Education on: NA. bp Administered Medications: 10:09 CANCELLED (Duplicate Order): aspirinchewable tablet 324 mg PO once; 81 mg tablets x 4 kari 10:51 Drug: NS 0.9% IV 500 ml 500 ml IV at 1 bolus once; to be given as a bolus over 30 bp minutes Volume: 500 ml; Route: IV; Rate: 1 bolus; Site: right antecubital; 12:31 Follow up: IV Status: Completed infusion bp 10:51 Drug: fentaNYL (PF) IVP 50 mcg IVP once Route: IVP; Site: right antecubital; bp 11:23 Follow up: Response: No adverse reaction bp 10:51 Drug: Aspirin PO 81 mg PO once Route: PO; bp 11:23 Follow up: Response: No adverse reaction bp 10:52 Drug: Famotidine IVP 20 mg IVP once; dilute with 10 mL 0.9% NaCl; give over 2 minutes bp Route: IVP; Site: right antecubital; 11:23 Follow up: Response: No adverse reaction bp 10:52 Drug: Ondansetron IVP 4 mg IVP once; over 2 minutes Route: IVP; Site: right antecubital;bp 11:23 Follow up: Response: No adverse reaction bp 12:01 Drug: Rocephin IV 1 grams IV at per protocol once; Given slow IV push per pharmacy bp instructions Route: IV; Rate: per protocol; Site: right antecubital; 12:30 Follow up: IV Status: Completed infusion bp Medication: 12:30 VIS not applicable for this client. bp Outcome: 12:17 Discharge ordered by MD. pierce 12:29 Discharged to home ambulatory, with family, bp 12:29 Condition: stable 12:29 Discharge instructions given to patient, Instructed on discharge instructions, follow up and referral plans. medication usage, Demonstrated understanding of instructions, follow-up care, medications, Prescriptions given X 4, 12:36 Patient left the ED. bp Signatures: Dispatcher [employer] EDMS Sulaiman Dykes MD MD cha Rivera, Shannon, Reg Reg Cheyanne Murphy RN RN aa5 Watson Del Angel RN RN bp Jair Abel
--- NOTE | 2024-05-01 12:17 | EDPHYS ---
Physician Documentation [facility] Name: Octavia Lo Age: 44 yrs Sex: Female : 1980 Arrival Date: 05/01/2024 Time: 09:59 Bed 15 Private MD: ED Physician Sulaiman Dykes HPI: 05/01 10:58 This 44 yrs old Female presents to ER via Ambulatory with complaints of Chest kari Pain. 10:58 The patient or guardian reports chest pain that is located primarily in the epigastric kari area. Onset: 2 day(s) ago. The pain does not radiate. Associated signs and symptoms: The patient has no apparent associated signs or symptoms. The chest pain is described as aching. Modifying factors: The symptoms are alleviated by nothing. the symptoms are aggravated by nothing. Severity of pain: At its worst the pain was moderate in the emergency department the pain is unchanged. The patient has experienced similar episodes in the past, multiple times. 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 - Infectious Disease History:: Denies. - Social history:: Smoking status: Patient denies any tobacco usage or history of. - Family history:: not pertinent. ROS: 10:58 Constitutional: Negative for fever, chills, and weight loss, Eyes: Negative for injury, kari pain, redness, and discharge, ENT: Negative for injury, pain, and discharge, Neck: Negative for injury, pain, and swelling, Cardiovascular: Negative for chest pain, palpitations, and edema, Respiratory: Negative for shortness of breath, cough, wheezing, and pleuritic chest pain, Back: Negative for injury and pain, : Negative for injury, bleeding, discharge, and swelling, MS/Extremity: Negative for injury and deformity, Skin: Negative for injury, rash, and discoloration, Neuro: Negative for headache, weakness, numbness, tingling, and seizure, Psych: Negative for depression, anxiety, suicide ideation, homicidal ideation, and hallucinations, Allergy/Immunology: Negative for hives, rash, and allergies, Endocrine: Negative for neck swelling, polydipsia, polyuria, polyphagia, and marked weight changes, Hematologic/Lymphatic: Negative for swollen nodes, abnormal bleeding, and unusual bruising, 10:58 Abdomen/GI: Positive for abdominal pain, abdominal cramps, of the epigastric area, Exam: 10:58 Constitutional: This is a well developed, well nourished patient who is awake, alert, kari and in no acute distress. Head/Face: Normocephalic, atraumatic. Eyes: Pupils equal round and reactive to light, extra-ocular motions intact. Lids and lashes normal. Conjunctiva and sclera are non-icteric and not injected. Cornea within normal limits. Periorbital areas with no swelling, redness, or edema. ENT: Nares patent. No nasal discharge, no septal abnormalities noted. Tympanic membranes are normal and external auditory canals are clear. Oropharynx with no redness, swelling, or masses, exudates, or evidence of obstruction, uvula midline. Mucous membranes moist. Neck: Trachea midline, no thyromegaly or masses palpated, and no cervical lymphadenopathy. Supple, full range of motion without nuchal rigidity, or vertebral point tenderness. No Meningismus. Chest/axilla: Normal chest wall appearance and motion. Nontender with no deformity. No lesions are appreciated. Cardiovascular: Regular rate and rhythm with a normal S1 and S2. No gallops, murmurs, or rubs. Normal PMI, no JVD. No pulse deficits. Respiratory: Lungs have equal breath sounds bilaterally, clear to auscultation and percussion. No rales, rhonchi or wheezes noted. No increased work of breathing, no retractions or nasal flaring. Back: No spinal tenderness. No costovertebral tenderness. Full range of motion. Skin: Warm, dry with normal turgor. Normal color with no rashes, no lesions, and no evidence of cellulitis. MS/ Extremity: Pulses equal, no cyanosis. Neurovascular intact. Full, normal range of motion., bilateral aka Neuro: Awake and alert, GCS 15, oriented to person, place, time, and situation. Cranial nerves II-XII grossly intact. Motor strength 5/5 in all extremities. Sensory grossly intact. Cerebellar exam normal. Normal gait. Psych: Awake, alert, with orientation to person, place and time. Behavior, mood, and affect are within normal limits. 10:58 Abdomen/GI: Inspection: abdomen appears normal, Bowel sounds: normal, Palpation: moderate abdominal tenderness, in the epigastric area, Liver: no appreciated palpable abnormalities, Hernia: not appreciated, 11:40 ECG was reviewed by the Attending Physician. [facility] Vital Signs: 10:02 BP 172 / 88; Pulse 78; Resp 18 S; Temp 98.2(O); Pulse Ox 100% on R/A; Weight 99.79 kg aa5 (R); Height 5 ft. 5 in. (R); 12:01 BP 137 / 95; Pulse 56; Resp 16; Pulse Ox 97% ; bp 12:29 BP 146 / 102; Pulse 61; Resp 16; Pulse Ox 96% ; bp 10:02 Body Mass Index 36.61 (99.79 kg, 165.1 cm) aa5 MDM: 10:00 Medical Screening Exam initiated kari 11:41 Differential diagnosis: abnormal EKG, acute myocardial infarction, acute pericarditis, kari anxiety, coronary artery disease chest wall pain, Cholelithiasis costochondritis, esophagitis, gastritis, hiatal hernia, myocarditis, pancreatitis, peptic ulcer disease, pericarditis, pleurisy, pneumonia, pulmonary embolus, stable angina, thoracic aortic disection, unstable angina. HEART Score: History: Slightly Suspicious (0), ECG: Normal (0), Age: < or = 45 years (0), Risk Factors: > or = 3 Risk factors for atherosclerotic disease (2), [Hypertension] [+ Family HX] [Obesity] Troponin: < or = 1 x Normal Limit (0). The patient was given aspirin in the Emergency Department. RAFAEL Risk Score: 1 - Three or more CAD risk factors, TOTAL SCORE = 1. Data reviewed: vital signs, nurses notes, lab test result(s), EKG, radiologic studies, CT scan, ultrasound. Consideration of Admission/Observation Escalation of care including admission/observation considered. I considered the following discharge prescriptions or medication management in the emergency department Medications were administered in the Emergency Department. See MAR. Independent interpretation of the following test(s) in the Emergency Department EKG: See my EKG interpretation above. Test considered but Not performed: Ultrasound no 2 d echo. Care significantly affected by the following chronic conditions: Hypertension, Obesity, hypothyroid, anxiety, pancreatitis. Counseling: I had a detailed discussion with the patient and/or guardian regarding the historical points, exam findings, and any diagnostic results supporting the discharge/admit diagnosis, the presence of at least one elevated blood pressure reading (>120/80) during this emergency department visit, radiology results, the need for outpatient follow up, for definitive care, a family practitioner, a general surgeon, a bicycle rental clerk. 05/01 10:01 Order name: Basic Metabolic Panel; Complete Time: 11:32 05/01 10:01 Order name: CBC with Diff; Complete Time: 11:05/01 10:01 Order name: D-Dimer; Complete Time: 12:16 05/01 10:01 Order name: LFT's; Complete Time: 11:32 05/01 10:01 Order name: Magnesium; Complete Time: 11:32 05/01 10:01 Order name: NT PRO-BNP; Complete Time: 11:32 05/01 10:01 Order name: PT-INR; Complete Time: 12:16 05/01 10:01 Order name: Troponin HS; Complete Time: 11:32 05/01 10:01 Order name: Lipase; Complete Time: 11:32 05/01 10:01 Order name: Urinalysis w/ reflexes; Complete Time: 11:32 05/01 10:01 Order name: XRAY Chest (1 view); Complete Time: 10:58 05/01 10:10 Order name: US Abdomen Limited; Complete Time: 10:58 05/01 10:11 Order name: CT Chest For PE Angio; Complete Time: 12:16 05/01 10:11 Order name: CT Abd/Pelvis - IV Contrast Only; Complete Time: 12:18 05/01 10:01 Order name: Cardiac monitoring; Complete Time: 10:28 05/01 10:01 Order name: EKG - Nurse/Tech; Complete Time: 10:28 05/01 10:01 Order name: IV Saline Lock; Complete Time: 10:47 05/01 10:01 Order name: Labs collected and sent; Complete Time: 10:47 05/01 10:01 Order name: O2 Per Protocol; Complete Time: 10: kari 05/01 10:01 Order name: O2 Sat Monitoring; Complete Time: : kari 05/01 11:09 Order name: Labs - recollect needed: recollect blue top/ hemolyzed per vinny eb Complete Time: 11:29 EC:40 Rate is 60 beats/min. Rhythm is regular. QRS Carlton is Normal. MO interval is normal. QRS kari interval is normal. QT interval is normal. No Q waves. T waves are Normal. No ST changes noted. Clinical impression: Normal ECG, LVH, and No evidence of ischemia. Interpreted by me. Reviewed by me. Administered Medications: 10: CANCELLED (Duplicate Order): aspirinchewable tablet 324 mg PO once; 81 mg tablets x 4 kari 10:51 Drug: NS 0.9% IV 500 ml 500 ml IV at 1 bolus once; to be given as a bolus over 30 bp minutes Volume: 500 ml; Route: IV; Rate: 1 bolus; Site: right antecubital; 12:31 Follow up: IV Status: Completed infusion bp 10:51 Drug: fentaNYL (PF) IVP 50 mcg IVP once Route: IVP; Site: right antecubital; bp 11:23 Follow up: Response: No adverse reaction bp 10:51 Drug: Aspirin PO 81 mg PO once Route: PO; bp 11:23 Follow up: Response: No adverse reaction bp 10:52 Drug: Famotidine IVP 20 mg IVP once; dilute with 10 mL 0.9% NaCl; give over 2 minutes bp Route: IVP; Site: right antecubital; 11:23 Follow up: Response: No adverse reaction bp 10:52 Drug: Ondansetron IVP 4 mg IVP once; over 2 minutes Route: IVP; Site: right antecubital;bp 11:23 Follow up: Response: No adverse reaction bp 12:01 Drug: Rocephin IV 1 grams IV at per protocol once; Given slow IV push per pharmacy bp instructions Route: IV; Rate: per protocol; Site: right antecubital; 12:30 Follow up: IV Status: Completed infusion bp Disposition Summary: 05/01/24 12:17 Discharge Ordered Notes: Location: Home kari Problem: new kari Symptoms: have improved kari Condition: Stable kari Diagnosis - Chest pain, unspecified kari - Abdominal tenderness kari - Epigastric abdominal tenderness kari - UTI/ Urinary tract infection, site not specified kari - Calculus of kidney kari - Calculus of kidney with calculus of ureter - possible kari Followup: kari - With: Private Physician - When: 2 - 3 days - Reason: Recheck today's complaints, Continuance of care, Re-evaluation by your physician Followup: kari - With: Nargis Jacobs MD - When: 2 - 3 days - Reason: Recheck today's complaints, Re-evaluation by your physician Followup: kari - With: Bhaskar Brasher MD - When: 2 - 3 days - Reason: Recheck today's complaints, Re-evaluation by your physician Discharge Instructions: - Discharge Summary Sheet kari - Nonspecific Chest Pain, Adult kari - Kidney Stones kari - Urinary Tract Infection, Adult kari - Kidney Stones, [id number] kari - Urinary Tract Infection, Adult, [id number] kari - Nonspecific Chest Pain, Adult, Kyed-nl-[id number] kari - Aspirin and Your Heart [facility] Forms: - Medication Reconciliation Form [facility] - Antibiotic Education kari - Prescription Opioid Use kari - Patient Portal Instructions [facility] - Leadership Thank You Letter [facility] Prescriptions: - ondansetron 4 mg Oral Tablet,disintegrating - take 1 tablet ORAL route every 6-8 hours for 5 days; 20 tablet; Refills: 0, [facility] Product Selection Permitted - cefdinir 300 mg Oral capsule - take 1 capsule ORAL route every 12 hours for 5 days; 10 capsule; Refills: 0, [facility] Product Selection Permitted - Pepcid 20 mg Oral tablet - take 1 tablet ORAL route every 12 hours for 21 days; 42 tablet; Refills: 0, [facility] Product Selection Permitted - dicyclomine 20 mg Oral tablet - take 1 tablet ORAL route 4 times per day; 28 tablet; Refills: 0, Product [facility] Selection Permitted Signatures: Dispatcher [employer] EDMS Sulaiman Dykes MD MD cha Calderon, Audri, RN RN aa5 Watson Del Angel RN RN Desiree Blanco Corrections: (The following items were deleted from the chart) 10:02 10:02 BASIC METABOLIC PANEL+C.LAB.BRZ ordered. EDMS EDMS 10:02 10:02 CBC+H.LAB.BRZ ordered. EDMS EDMS 10:02 10:02 D-DIMER+COAG.LAB.BRZ ordered. EDMS EDMS 10: 10:02 HEPATIC FUNCTION+C.LAB.BRZ ordered. EDMS EDMS 10: 10:02 MAGNESIUM+C.LAB.BRZ ordered. EDMS EDMS 10: 10:02 PROBNP+C.LAB.BRZ ordered. EDMS EDMS 10:02 10:02 PROTIME (+INR)+COAG.LAB.BRZ ordered. EDMS EDMS 10: 10:02 Troponin High Sensitivity+C.LAB.BRZ ordered. EDMS EDMS 10: 10:02 LIPASE+C.LAB.BRZ ordered. EDMS EDMS 10:02 10:02 Urinalysis+U.LAB.BRZ ordered. EDMS EDMS 10:02 10:02 Chest Single View+RAD.RAD.BRZ ordered. EDMS EDMS 10:09 10:01 Aspirin PO Chewable Tablet 324 mg PO once; 81 mg tablets x 4 ordered. kari kari 10:11 10:11 Chest For PE Angio+CT.RAD.BRZ ordered. EDMS EDMS 10:12 10:12 Abdomen Pelvis W Con+CT.RAD.BRZ ordered. EDMS EDMS
--- NOTE | 2024-05-02 11:51 | EKG ---
Test Date: 2024-05-01 Test Time: 10:17:14 Electrical Timing Device Calibrator: CLAYTON MEASUREMENT RESULTS: Intervals: Rate: 60 MD: 148 QRSD: 92 QT: 456 QTc: 456 Reynolds: P: 17 MD: 148 QRS: 12 T: 11 INTERPRETIVE STATEMENTS: Normal sinus rhythm Minimal voltage criteria for LVH, may be normal variant Borderline ECG Compared to ECG 04/20/2024 15:05:07 Left ventricular hypertrophy now present Sinus bradycardia no longer present Electronically Signed On 05-02-24 11:50:46 CHILD CARE ATTENDANT by Victoriano Batres
[2024-05-03 02:13] VITALS: BP 146/102; TEMP 98.2; O2SAT 96
== END 2024-05-01 12:36 | disposition home or self-care (01) ==
LOC: ER 09:59
DX: R07.9 Chest pain, unspecified (principal); N39.0 Urinary tract infection, site not specified; N20.0 Calculus of kidney; R10.819 Abdominal tenderness, unspecified site; R10.13 Epigastric pain; F41.9 Anxiety disorder, unspecified; I10 Essential (primary) hypertension; E03.9 Hypothyroidism, unspecified; K85.90 Acute pancreatitis without necrosis or infection, unspecified; Z88.5 Allergy status to narcotic agent; Z88.8 Allergy status to other drugs, medicaments and biological substances
CPT/HCPCS: 96365; 96361; 93005; 85025; 81001; 80048; 36415; 83735; 85610; 85379; 80076; 84484; 83690; 83880; 71275; 74177; 71045; 76705; 96375; 99285; Q9967; J3010; J2405; J7040; J0696

== ENCOUNTER 2025-01-13 08:27 | Emergency (ER) | payer OTHER, SELFPAY ==
--- OUTSIDE RECORDS SUMMARY | 2025-01-13 08:44 | XMS REPORT | Continuity of Care Document ---
Author Name Unknown Address [address] [facility] [place] [address] [facility] Address [address] [facility] [place] [address] Care Team Providers Care Hair Sample Matcher Name Role Phone MIYA EDOUARD Primary Care Physician Unavaila ABBEY Israel Attending Clinician Unavailable LOKI HAYES Attending Clinician Unavailable MIYA EDOUARD Attending Clinician Unavailable NIKI AVILES Attending Clinician Unavailable Perla Upton NP Attending Clinician [phone] Doctor Unassigned, [place] Attending Clinician U Miya Rand MD Attending Clinician [phone] CHRISSIE MOYA Attending Cli nician Unavailable CHRISSIE MOYA Attending Cli nician Unavailable Alyce Bartholomew Attending Clinician [phone] Noni Wu Attending Clinician Federico Richter Attending Clinician Unavailtoyin Rodriges CPhT, Anna Riley Attending Clinician Unavaila CHERELLE Sanders Attending Clinician Unavailable Jerry CPhT, Laura Sarkar Attending Clinician Unava ilbeverley Nurse, [facility] Attending Clinician Unavailable Malik White MD Attending Clinician [phone] Pricilla OT, Shante Boothe Attending Clinician Un available MALIK WHITE Attending Clinician UnavailMALIK iJang Attending Clinician Unavailtoyin Roa chief safety officer, Sabrina Attending Clinician Unavail able Pawel [facility], Shaneka Boothe Attending Clinician Unavail able Rupali PT, Nigel Lebron Attending Clinician Unavailable Unknown, Attending Attending Clinician Unavailab zonia Pelaez PA-C, Dev Attending Clinician [phone] DEV PELAEZ Attending Clinician Unavailable Surendra RODRIGUEZhT, Kena Attending Clinician Unavaila fabian Villagomez chief safety officer, Akiko Payne Attending Clinician Unava ilSARAH BETH King Attending Clinician UnavailMarybeth Pedraza Attending Clinician [phone] MARTHA MERAZ Attending Clinician MARTHA Marrero Attending Clinician MARYBETH Orosco Attending Clinician Unavailable MARYBETH JIMÉNEZ Attending Clinician Unavailable Brandon [facility], Carina Attending Clinician Unavailable Kareem Feliciano, Jeni Attending Clinician Martha Marrero MD Attending Clinician + [phone] Loki Hayes MD Attending Clinician [phone] Clare Hernández MD Attending Clinician [phone] Jennie Loving MD Attending Clinician [phone] Only, [facility] Test Attending Clinician Unavailable JENNIE LOVING Attending Clinician Unavailab Lui Almaguer MD Attending Clinicia n Sue Childs MD Attending Clinician [phone] Olamide Simpson PA-C Attending Clinician [phone] 2, [facility] Attending Clinician Unavailable Pcp-Lab Attending Clinician Unavailable OLAMIDE SIMPSON Attending Clinician Unavailable OLAMIDE SIMPSON Attending Clinician Unavailable Miya Edouard MD Attending Clinician + RAFFI RODRIGUEZ Attending Clinician Unavailab Eva Bañuelos MD Attending Clinician [phone] GELA BENEDICT Attending Clinician Unavailable YOLI HI Attending Clinician Unavailable Octavia Moy Attending Clinician +3 Doctor Unassigned, [place] Attending Clinician U sheron Benedict MD, Gela Attending Clinician [phone] Pob, [facility] Main Attending Clinician Unavailabl e 2, [facility] Attending Clinician Unavailable EVA ABREU Attending Clinician Unavailable SHEREE BLOOD Attending Clinician Unavaila JEY Weaver Attending Clinician Unavailable Jey Machado S Attending Clinician [phone] SARMAD PITT Attending Clinician Unavail able SARMAD PITT Attending Clinician Unavail able Sarmad Pitt MD Attending Clinician [phone] Neurology Attending Clinician Unavailable JULIANE JOLLY Attending Clinician Unavailab Juliane Moeller MD Attending Clinician [phone] RADIOLOGY Attending Clinician Unavailable Radiology Attending Clinician Unavailable CAROLINA MAURICE Attending Clinician Unavailab Carolina Mario DO Attending Clinician [phone] Nathaly Richter PA-C Attending Clinician [phone] Only, [facility] Test Attending Clinician Unavailabl e Chary Reich Attending Clinician [phone] EBCHARY SNOW Attending Clinician Unavailable NATHALY RICHTER Attending Clinician Unavailable NIKA BERRY Attending Clinician Unavailable Nika Berry MD Attending Clinician [phone] Mono Perea MD Attending Clinician [phone] Only, [facility] Attending Clinician Unavailable Abbey Rothman MD Attending Clinician [phone], [facility] Attending Clinician Unavailable Diann Garcia Attending Clinician [phone] Yasir Ghosh MD Attending Clinician [phone] RUSSELL LAWLER Attending Clinician Unavail able Nurse, [facility] Pob Immunization Attending Clinician Unavailable Russell Lawler DO Attending Clinician Vaccine, [facility] Attending Clinician Unavaila fabian Frank [employer] Attending Clinician [phone] FERN FRANK Attending Clinician Unavailable Provider, [facility] Attending Clinician Un available Mary Rodrigues Attending Clinician [phone] MARY HARLEY Attending Clinician Unavailable FESTUS MANUEL Attending Clinician Unavailable Karen Copeland Attending Clinician [phone] Ramirez Fink MD Attending Clinician [phone] GEORGE GIL Attending Clinician Unavailable Lab, [facility] Fam Pob I Attending Clinician Unavailab zonia Gil [employer]Y CHIEFGeorge Wells Attending Clinician [phone] Sherley Lofton PTA Attending Clinician Unavail able Malik White MD Attending Clinician [phone] Kevin Valadez MD Attending Clinician [phone] Betito Weinberg Attending Clinician [phone] Loki Hayes MD Attending Clinician [phone] Fabienne Espinoza PT, Carmen Attending Clinician Un available ABBEY ROTHMAN Admitting Clinician Unavailable MYIA EDOUARD Admitting Clinician Unavailable JEY PEREZ Admitting Clinician Unavailable JULIANE JOLLY Admitting Clinician Unavailab NIKA Leonard Admitting Clinician Unavailable Nika Berry MD Admitting Clinician [phone] Abbey Rothman MD Admitting Clinician [phone] MARY HARLEY Admitting Clinician Unavailable Payers Payer Name Policy Type Policy Number Effective Date Expirati on Date Source [employer] [place] [employer] [id number] 2017 00:00:00 [facility] [id number] 2024 00:00:00 2024 00:00:00 [employer] [id number] 2023 00:00:00 2024 00:00:00 Problems Condition Name Condition Details Condition Category Status Onset Date Resolution Date Last Treatment Date Treating Clinician Comments Source Gait instabilit y Gait instabilit y Disease Active 08-07 00:00: 00 [facility] Reduced mobility Reduced mobility Disease Active 08-07 00:00: 00 [facility] Moderately severe recurrent major depression Moderately severe recurrent major depression Disease Active 08-07 00:00: 00 [facility] 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 Disease Active 08-07 00:00: 00 [facility] Lymphadeno mann, cervical Lymphadeno mann, cervical Disease Active 2023-04 0- 00:00: 00 [facility] Tenderness of lymph node Tenderness of lymph node Disease Active 2023-04 0 00:00: 00 [facility] Agoraphobi a Agoraphobi a Disease Active 2023-04 0 00:00: 00 [facility] Stress incontinen ce of urine Stress incontinen ce of urine Disease Active 01-04 00:00: 00 [facility] Bulging lumbar disc Bulging lumbar disc Disease Active 01-04 00:00: 00 [facility] Foraminal stenosis of lumbar region Foraminal stenosis of lumbar region Disease Active 01-04 00:00: 00 [facility] 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 Disease Active 01-04 00:00: 00 [facility] Postural orthostati c tachycardi a syndrome (POTS) Postural orthostati c tachycardi a syndrome (POTS) Disease Active 01-04 00:00: 00 [facility] Subclinica l hypothyroi dism Subclinica l hypothyroi dism Disease Active 01-04 00:00: 00 [facility] Loss of hair Loss of hair Disease Active 01-04 00:00: 00 [facility] Primary insomnia Primary insomnia Disease Active 01-04 00:00: 00 [facility] Insomnia, unspecifie d type Insomnia, unspecifie d type Disease Active 2023-0 9-20 00:00: 00 [facility] Syncope and collapse Syncope and collapse Disease Active 0 620 00:00: 00 [facility] Knee buckling, left Knee buckling, left Disease Active 0 620 00:00: 00 [facility] Moderate major depression Moderate major depression Disease Active 0 6-20 00:00: 00 [facility] Lumbar radiculopa thy, chronic Lumbar radiculopa thy, chronic Disease Active 0 2-17 00:00: 00 [facility] Primary osteoarthr itis of right knee Primary osteoarthr itis of right knee Disease Active 0 2-17 00:00: 00 [facility] Bakers cyst, right Bakers cyst, right Disease Active 2021-04 0-13 00:00: 00 [facility] Bakers cyst, right Bakers cyst, right Disease Active 2021-04 0-13 00:00: 00 [facility] Chronic neck pain Chronic neck pain Disease Active 0 9 00:00: 00 [facility] Prediabete s Prediabete s Disease Active 0 908 00:00: 00 [facility] Hidradenit is suppurativ a Hidradenit is suppurativ a Disease Active 0 824 00:00: 00 [facility] Numbness and tingling of right arm and leg Numbness and tingling of right arm and leg Disease Active 0 8-24 00:00: 00 [facility] Chronic pain of right knee Chronic pain of right knee Disease Active 0 8-24 00:00: 00 [facility] Right sided sciatica Right sided sciatica Disease Active 0 8-24 00:00: 00 [facility] Chronic pain of both shoulders Chronic pain of both shoulders Disease Active 0 8-24 00:00: 00 [facility] Degenerati ve disc disease at L5-S1 level Degenerati ve disc disease at L5-S1 level Disease Active 0 8-24 00:00: 00 [facility] Arthritis, multiple joint involvemen t Arthritis, multiple joint involvemen t Disease Active 8-24 00:00: 00 [facility] Chronic pain of both shoulders Chronic pain of both shoulders Disease Active 824 00:00: 00 [facility] Right sided sciatica Right sided sciatica Disease Active 824 00:00: 00 [facility] Status post hysterosco py Status post hysterosco py Disease Active 05-06 00:00: 00 [facility] S/P lumbar discectomy S/P lumbar discectomy Disease Active 05-06 00:00: 00 [facility] Elevated TSH Elevated TSH Disease Active 05-05 00:00: 00 [facility] Chronic bilateral low back pain with right-side d sciatica Chronic bilateral low back pain with right-side d sciatica Disease Active 05-05 00:00: 00 [facility] 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 Disease Active 05-05 00:00: 00 [facility] Blood clots in stool Blood clots in stool Disease Active 2020-04 0 00:00: 00 [facility] BMI 39.0-39.9, adult BMI 39.0-39.9, adult Disease Active 2020-04 0-06 00:00: 00 [facility] Gastroesop hageal reflux disease without esophagiti s Gastroesop hageal reflux disease without esophagiti s Disease Active 2019-04 0-06 00:00: 00 [facility] Anxiety Anxiety Disease Active 2019-04 0- 00:00: 00 [facility] Chronic allergic rhinitis Chronic allergic rhinitis Disease Active 12-31 00:00: 00 [facility] Asymptomat ic hypertensi ve urgency Asymptomat ic hypertensi ve urgency Disease Active 12-31 00:00: 00 [facility] Essential hypertensi on Essential hypertensi on Disease Active 9-30 00:00: 00 [facility] Renal stones Renal stones Disease Active 9-30 00:00: 00 [facility] Hepatomega ly Hepatomega ly Disease Active 9-30 00:00: 00 [facility] Non compliance w medication regimen Non compliance w medication regimen Disease Resolve d 9-16 00:00: 00 2024-08-07 00:00:00 2024-08-07 13:38:22 [facility] Encounter for weight management Encounter for weight management Disease Resolve d 1-19 00:00: 00 2022-01-28 00:00:00 2022-01-28 09:52:08 [facility] Rectal bleeding Rectal bleeding Disease Resolve d 2020-04 1-11 00:00: 00 2022-01-28 00:00:00 2022-01-28 09:52:17 Overview: Formattin g of this note might be different from the original. Added automatic ally from request for surgery [id number] [facility] Lower abdominal pain Lower abdominal pain Disease Resolve d 2020-04 0-06 00:00: 00 2022-01-28 00:00:00 2022-01-28 09:52:35 [facility] Acute maxillary sinusitis, recurrence not specified Acute maxillary sinusitis, recurrence not specified Disease Resolve d 9-16 00:00: 00 2022-01-28 00:00:00 2022-01-28 09:51:52 [facility] URI with cough and congestion URI with cough and congestion Disease Resolve d 9-16 00:00: 00 2022-01-28 00:00:00 2022-01-28 09:52:24 [facility] Encounter for insertion of Mirena IUD Encounter for insertion of Mirena IUD Disease Resolve d 1-20 00:00: 00 2021-05-20 00:00:00 2021-05-20 14:18:56 [facility] Pre-op evaluation Pre-op evaluation Disease Resolve d 1-07 00:00: 00 2021-05-20 00:00:00 2021-05-20 14:18:40 [facility] Retained intrauteri ne contracept clarissa device (IUD) Retained intrauteri ne contracept clarissa device (IUD) Disease Resolve d 1-07 00:00: 00 2021-05-20 00:00:00 2021-05-20 14:18:53 [facility] Family planning, IUD (intrauter ine device) check/rein sertion/re moval Family planning, IUD (intrauter ine device) check/rein sertion/re moval Disease Resolve d 2020-04 1-13 00:00: 00 2021-05-20 00:00:00 2021-05-20 14:18:30 [facility] Allergies, Adverse Reactions, Alerts Allergy Name Allergy Type Status Severity Reaction(s) Onset Date Inactive Date Treating Clinician Comments Source PEANUT DRUG INGREDI Active Unknown-Cmnt 0 2-17 00:00: 00 [facility] SHRIMP DRUG INGREDI Active Unknown-Cmnt 0 2-17 00:00: 00 [facility] Peanut Propensi ty to adverse reaction s Active Unknown - See comments 2- 00:00: 00 Per allergy blood test [facility] Shrimp Propensi ty to adverse reaction s Active Unknown - See comments 2- 00:00: 00 Per allergy blood test [facility] OXYCODON E DRUG INGREDI Active ITCHING 2022-0 8-17 00:00: 00 [facility] Oxycodon e Propensi ty to adverse reaction s Active Itching 2022-0 8-17 00:00: 00 [facility] Codeine Propensi ty to adverse reaction s Active Shortness of Breath 2016-04 00:00: 00 [facility] Oxycodon e-Acetam inophen Propensi ty to adverse reaction s Active Itching 2016-04 00:00: 00 [facility] Prometha zine Hcl Propensi ty to adverse reaction s Active Other - See comments 2016-04 00:00: 00 convulsio ns [facility] Metoclop ramide Hcl Propensi ty to adverse reaction s Active Unknown - See comments 2016-04 00:00: 00 Convulsio n [facility] PROMETHA ZINE HCL DRUG INGREDI Active High Other-Cmnt 2016-04 00:00: 00 [facility] METOCLOP RAMIDE HCL DRUG INGREDI Active High Unknown-Cmnt 2016-04 00:00: 00 [facility] CODEINE DRUG INGREDI Active SOB 2016-04 00:00: 00 [facility] OXYCODON E-ACETAM INOPHEN DRUG Active ITCHING 2016-04 00:00: 00 [facility] Family History Family Member Diagnosis Comments Start Date Stop Date Sourc e Maternal grandmother Colon Cancer [facility] Paternal grandmother Breast Cancer [facility] Social History Social Habit Start Date Stop Date Quantity Comments Source [facility] Not [facility] History of Social function 2024-10-14 00:00:00 2024-10-14 00:00:00 [facility] Alcoholic beverage intake 2024-10-14 00:00:00 2024-10-14 00:00:00 Current non-drinker of alcohol (finding) [facility] Tobacco use and exposure 2023-03-21 00:00:00 2023-03-21 00:00:00 Smokeless tobacco non-user [facility] Alcohol intake 2023-03-21 00:00:00 2023-03-21 00:00:00 Current non-drinker of alcohol (finding) [facility] Exposure to SARS-CoV-2 (event) 2022-08-02 00:00:00 2022-08-12 11:17:[address] [facility] Sex assigned at 1980 00:00:00 1980 00:00:00 [facility] Smoking Status Start Date Stop Date Source Never smoked tobacco [facility] Medications Ordered Medication Name Filled Medication Name Start Date Stop Date Current Medication? Ordering Clinician Indication Dosage Frequency Signature (SIG) Comments Components Source tiZANidine 2 mg tablet 8 00:00: 00 Yes [id number] 2mg TAKE 1 TABLET BY MOUTH EVERY 8 HOURS NEEDED FOR PAIN (SCALE 4-6). [facility] PANTOPRAZOL E 20 mg EC tablet 8 00:00: 00 Yes [id number] TAKE ONE (1) TABLET(S) BY MOUTH IN THE MORNING. [facility] desvenlafax ine succinate 50 mg 24 hr tablet 11-13 00:00: 00 Yes [id number] 50mg Take 1 tablet by mouth in the morning. [facility] meloxicam 7.5 mg tablet 11-12 00:00: 00 Yes [id number] 7.5mg Take 1 tablet by mouth in the morning. [facility] gabapentin 100 mg capsule 11-12 00:00: 00 Yes [id number] 100mg Take 1 capsule by mouth in the morning and 1 capsule at noon and 1 capsule in the evening. [facility] tiZANidine 2 mg tablet 11-12 00:00: 00 12-09 00:00 :00 No [id number] 2mg Take 1 tablet by mouth every 8 hours as needed for Pain (scale 4-6). [facility] desvenlafax ine succinate 50 mg 24 hr tablet 11-04 00:00: 00 10-21 00:00 :00 No [id number] 50mg Take 1 tablet by mouth in the morning. [facility] desvenlafax ine succinate 50 mg 24 hr tablet 10-21 00:00: 00 11-13 00:00 :00 No [id number] 50mg Take 1 tablet by mouth in the morning. [facility] desvenlafax ine succinate 25 mg 24 hr tablet 10-21 00:00: 00 10-29 04:59 :00 No [id number] 25mg Take 1 tablet by mouth in the morning for 7 days. [facility] desvenlafax ine succinate 25 mg 24 hr tablet 10-14 00:00: 00 10-21 00:00 :00 No [id number] Take 1 tablet by mouth daily for 7 days, THEN 2 tablets daily for 23 days. [facility] SERTraline (ZOLOFT) 100 mg tablet 10-08 00:00: 00 10-14 00:00 :00 No [id number] 100mg Take 1 tablet by mouth in the morning. [facility] semaglutide , weight loss, (WEGOVY) 0.25 mg/0.5 mL PnIj SC injection [id number] 09-24 00:00: 00 Yes [id number] .25mg inject 0.25 mg under the skin weekly. [facility] semaglutide , weight loss, (WEGOVY) 0.5 mg/0.5 mL PnIj SC injection [id number] 09-24 00:00: 00 Yes [id number] .5mg inject 0.5 mg under the skin weekly. [facility] semaglutide , weight loss, (WEGOVY) 1 mg/0.5 mL PnIj SC injection [id number] 09-24 00:00: 00 Yes [id number] 1mg inject 1 mg under the skin weekly. [facility] MELOXICAM 7.5 mg tablet 09-17 00:00: 00 11-12 00:00 :00 No [id number] TAKE ONE (1) TABLET(S) BY MOUTH IN THE MORNING. [facility] PANTOPRAZOL E 20 mg EC tablet 05 00:00: 00 11-15 00:00 :00 No [id number] TAKE ONE (1) TABLET(S) BY MOUTH IN THE MORNING. [facility] Walker (ULTRA-LIGH T ROLLATOR) Misc 08-07 00:00: 00 Yes [id number] R55/W19.XX XS/M79.604 /R06.02/I5 0.32/I51.7 /E11.3511: Use daily for ambulation /fall precaution (dispense brand covered by insurance) [facility] traZODone 50 mg tablet 08-07 00:00: 00 Yes [id number] 50mg Take 1 tablet by mouth at bedtime. [facility] losartan 50 mg tablet 08-07 00:00: 00 Yes [id number] 50mg Take 1 tablet by mouth in the morning. TAKE ONE (1) TABLET BY MOUTH IN THE MORNING. [facility] metoprolol succinate XL 25 mg 24 hr tablet 08-07 00:00: 00 Yes [id number] 12.5mg Take 0.5 tablets by mouth in the morning. [facility] gabapentin 100 mg capsule 08-07 00:00: 00 11-12 00:00 :00 No [id number] 100mg Take 1 capsule by mouth in the morning and 1 capsule at noon and 1 capsule in the evening. [facility] SERTraline (ZOLOFT) 100 mg tablet 08-07 00:00: 00 10-08 00:00 :00 No [id number] 100mg Take 1 tablet by mouth in the morning. [facility] SERTraline (ZOLOFT) 100 mg tablet 08-05 00:00: 00 08-07 00:00 :00 No [id number] 100mg Take 1 tablet by mouth in the morning. [facility] MELOXICAM 7.5 mg tablet 07-16 00:00: 00 09-17 00:00 :00 No [id number] 7.5mg TAKE ONE (1) TABLET(S) BY MOUTH EVERY MORNING. [facility] methylPREDN ISolone sod succ (SOLU-MEDRO L (PF)) injection 40 mg 07-12 00:00: 00 07-11 23:18 :00 No [id number] 40mg 40 mg, Intramuscu lar, ONCE, 1 dose, On Judi 07/11/24 at 1900, Routine [facility] hydrOXYzine 25 mg tablet 07-11 00:00: 00 08-07 00:00 :00 No [id number] 25mg Take 1 tablet by mouth every 6 (six) hours. [facility] triamcinolo ne acetonide 0.1 % ointment 3-27 00:00: 00 08-07 00:00 :00 No [id number] Apply to area(s) 2 (two) times daily. [facility] predniSONE 20 mg tablet 3-27 00:00: 00 07-17 04:59 :00 No [id number] 20mg Take 1 tablet by mouth in the morning and 1 tablet in the evening. Do all this for 5 days. [facility] traZODone 50 mg tablet 2-17 00:00: 00 08-07 00:00 :00 No [id number] 50mg Take 1 tablet by mouth at bedtime. [facility] FLUoxetine (PROZAC) 40 mg capsule 2-17 00:00: 00 08-05 00:00 :00 No [id number] 40mg Take 1 capsule by mouth in the morning. [facility] FLUoxetine (PROZAC) 20 mg capsule 2-17 00:00: 00 08-05 00:00 :00 No [id number] 20mg Take 1 capsule by mouth in the morning. [facility] METOPROLOL SUCCINATE XL 25 mg 24 hr tablet 2-05 00:00: 00 08-07 00:00 :00 No [id number] TAKE ONE (1) TABLET(S) BY MOUTH IN THE MORNING. [facility] PANTOPRAZOL E 20 mg EC tablet 2-03 00:00: 00 08-19 00:00 :00 No [id number] 20mg TAKE ONE (1) TABLET(S) BY MOUTH EVERY MORNING. [facility] FLUoxetine (PROZAC) 40 mg capsule 1-28 00:00: 00 06-03 00:00 :00 No [id number] 40mg Take 1 capsule by mouth in the morning. [facility] MELOXICAM 7.5 mg tablet 1-19 00:00: 07-16 00:00 :00 No [id number] 7.5mg TAKE ONE (1) TABLET(S) BY MOUTH EVERY MORNING. [facility] iopamidol (ISOVUE 370-500 mL) injection 84 mL 2023-04 16:45: 00 03-04 16:01 :00 No [id number] 84mL 84 mL, Intravenou s, ONCE, 1 dose, On Mon03/04/24 at 1045, Routine [facility] FLUoxetine (PROZAC) 40 mg capsule 2023-04 00:00: 00 05-14 00:00 :00 No [id number] 40mg Take 1 capsule by mouth in the morning. [facility] meloxicam 7.5 mg tablet 2023-04 00:00: 00 05-05 00:00 :00 No [id number] 7.5mg Take 1 tablet by mouth in the morning. [facility] clindamycin 1 % topical solution 2023-04 00:00: 00 Yes [id number] Apply to affected area(s) 2 (two) times daily. [facility] benzoyl peroxide 10 % external wash 2023-04 00:00: 00 Yes [id number] Apply to area(s) daily. Use in shower. Rinse off thoroughly , medication can bleach fabrics. [facility] doxycycline monohydrate 100 mg capsule 2023-04 00:00: 00 08-07 00:00 :00 No [id number] 100mg Take 1 capsule by mouth in the morning and 1 capsule in the evening. Take with meals. [facility] adalimumab (HUMIRA,CF, PEN CROHNS-UC-H S) 80 mg/0.8 mL PnKt [id number] 1650-1 1-08 00:00: 00 08-07 00:00 :00 No [id number] 80mg inject 1 Pen under the skin every 2 (two) weeks starting on day 29. [facility] LOSARTAN 50 mg tablet 2023-04 00:00: 00 08-07 00:00 :00 No [id number] TAKE ONE (1) TABLET BY MOUTH IN THE MORNING. [facility] pantoprazol e 20 mg EC tablet 2023-04 00:00: 00 05-20 00:00 :00 No [id number] 20mg Take 1 tablet by mouth in the morning. [facility] buPROPion SR 150 mg SR tablet 2023-04 00:00: 00 06-03 00:00 :00 No [id number] 150mg Take 1 tablet by mouth in the morning and 1 tablet in the evening. [facility] vitamin C with jacob hips (VITAMIN C) 1,000 mg tablet 2023-04 00:00: 00 Yes [id number] 1000mg Take 1 tablet by mouth in the morning. [facility] Melatonin 5 mg Cap 2023-04 00:00: 00 Yes [id number] 1{capsu le} Take 1 capsule by mouth at bedtime as needed for Insomnia. [facility] ergocalcife rol, vitamin d2, 1,250 mcg (50,000 unit) capsule 2023-04 00:00: 00 Yes [id number] 25112J Take 1 capsule by mouth weekly. [facility] calcium carbonate 500 mg calcium (1,250 mg) tablet 2023-04 00:00: 00 Yes [id number] 500mg Take 1 tablet by mouth in the morning. [facility] fluticasone propionate 50 mcg/actuati on nasal spray 2023-04 0 00:00: 00 Yes [id number] 1{spray } Use 1 [place] in each nostril in the morning. [facility] azelastine 137 mcg (0.1 %) nasal spray 2023-04 0 00:00: 00 Yes [id number] 1{spray } Use 1 [place] in each nostril in the morning and 1 [place] in the evening. Use in each nostril as directed [facility] gabapentin 100 mg capsule 2023-04 010 00:00: 00 08-07 00:00 :00 No [id number] 100mg Take 1 capsule by mouth in the morning and 1 capsule at noon and 1 capsule in the evening. [facility] traZODone 50 mg tablet 2023-04 0-10 00:00: 00 06-03 00:00 :00 No [id number] 50mg Take 1 tablet by mouth at bedtime. [facility] buPROPion 75 mg tablet 2023-04 0-10 00:00: 00 02-01 00:00 :00 No [id number] 75mg Take 1 tablet by mouth in the morning and 1 tablet in the evening. [facility] metoprolol succinate XL 25 mg 24 hr tablet 01-10 00:00: 00 05-22 00:00 :00 No [id number] TAKE ONE (1) TABLET(S) BY MOUTH IN THE MORNING. [facility] metoprolol succinate XL 25 mg 24 hr tablet 12-21 00:00: 00 01-10 00:00 :00 No [id number] TAKE ONE (1) TABLET(S) BY MOUTH IN THE MORNING. [facility] LEVOTHYROXI NE 25 mcg tablet 8- 00:00: 00 03-04 00:00 :00 No [id number] TAKE ONE (1) TABLET BY MOUTH EVERY MORNING. [facility] METOPROLOL SUCCINATE XL 25 mg 24 hr tablet - 00:00: 00 12-21 00:00 :00 No [id number] TAKE ONE (1) TABLET(S) BY MOUTH IN THE MORNING. [facility] METOPROLOL SUCCINATE XL 25 mg 24 hr tablet 7- 00:00: 00 11-23 00:00 :00 No [id number] 25mg TAKE 1 TABLET BY MOUTH IN THE MORNING. [facility] MELOXICAM 7.5 mg tablet 6-04 00:00: 00 03-04 00:00 :00 No [id number] 103 TAKE ONE (1) TABLET BY MOUTH IN THE MORNING. [facility] DULOXETINE 20 mg capsule 6-04 00:00: 00 01-24 00:00 :00 No [id number] TAKE ONE (1) CAPSULE BY MOUTH IN THE MORNING AND 1 CAPSULE IN THE EVENING. [facility] metoprolol succinate XL 25 mg 24 hr tablet 5-28 00:00: 00 10-15 00:00 :00 No [id number] 25mg Take 1 tablet by mouth in the morning. [facility] levothyroxi ne 25 mcg tablet 5-22 00:00: 00 12-03 00:00 :00 No [id number] TAKE ONE (1) TABLET BY MOUTH EVERY MORNING. [facility] TIZANIDINE 2 mg tablet 4-16 00:00: 00 11-12 00:00 :00 No [id number] TAKE ONE (1) TABLET(S) BY MOUTH EVERY EIGHT HOURS NEEDED. [facility] AMITRIPTYLI NE 10 mg tablet 4-16 00:00: 00 01-09 00:00 :00 No [id number] 10mg TAKE ONE (1) TABLET BY MOUTH AT BEDTIME. [facility] LOSARTAN 50 mg tablet 0 4-15 00:00: 00 02-20 00:00 :00 No [id number] TAKE ONE (1) TABLET BY MOUTH IN THE MORNING. [facility] TIZANIDINE 2 mg tablet 3-14 00:00: 00 Yes [id number] TAKE ONE (1) TABLET(S) BY MOUTH EVERY EIGHT HOURS NEEDED FOR MUSCLE SPASMS. [facility] MELOXICAM 7.5 mg tablet 3-04 00:00: 00 09-18 00:00 :00 No [id number] 103 TAKE ONE (1) TABLET BY MOUTH IN THE MORNING. [facility] TIZANIDINE 2 mg tablet 0 2-13 00:00: 00 06-28 00:00 :00 No [id number] TAKE ONE (1) TABLET(S) BY MOUTH EVERY EIGHT HOURS NEEDED FOR MUSCLE SPASMS. [facility] TIZANIDINE 2 mg tablet 2023-0 1-15 00:00: 00 Yes [id number] TAKE ONE (1) TABLET(S) BY MOUTH EVERY EIGHT HOURS NEEDED FOR MUSCLE SPASMS. [facility] pantoprazol e 20 mg EC tablet 1-15 00:00: 00 02-20 00:00 :00 No [id number] TAKE ONE (1) TABLET(S) BY MOUTH ONCE A DAY. [facility] DULOXETINE 20 mg capsule 2022-04 2-18 00:00: 00 09-18 00:00 :00 No [id number] TAKE ONE (1) CAPSULE BY MOUTH IN THE MORNING AND 1 CAPSULE IN THE EVENING. [facility] meloxicam 7.5 mg tablet 2022-0418 00:00: 00 06-18 00:00 :00 No [id number] 103 TAKE ONE (1) TABLET BY MOUTH IN THE MORNING. [facility] tiZANidine 2 mg tablet 2022-04 2-14 00:00: 00 05-01 00:00 :00 No [id number] TAKE ONE (1) TABLET(S) BY MOUTH EVERY EIGHT HOURS NEEDED FOR MUSCLE SPASMS. [facility] PANTOPRAZOL E 20 mg EC tablet 2022-04 1-09 00:00: 00 05-01 00:00 :00 No [id number] TAKE ONE (1) TABLET(S) BY MOUTH ONCE A DAY. [facility] meloxicam 7.5 mg tablet 929 00:00: 00 04-03 00:00 :00 No [id number] 103 TAKE ONE (1) TABLET BY MOUTH IN THE MORNING. [facility] Melatonin 5 mg Cap 01-04 00:00: 00 01-29 00:00 :00 No [id number] 1{capsu le} Take 1 capsule by mouth at bedtime as needed for Insomnia. [facility] metoprolol succinate XL 25 mg 24 hr tablet - 00:00: 00 09-11 00:00 :00 No [id number] 25mg Take 1 tablet by mouth in the morning. [facility] levothyroxi ne 25 mcg tablet 01-04 00:00: 00 09-05 00:00 :00 No [id number] TAKE ONE (1) TABLET BY MOUTH EVERY MORNING. [facility] amitriptyli ne 10 mg tablet 01-04 00:00: 00 07-31 00:00 :00 No [id number] 10mg Take 1 tablet by mouth at bedtime. [facility] losartan 50 mg tablet 01-04 00:00: 00 07-30 00:00 :00 No [id number] 50mg Take 1 tablet by mouth in the morning. [facility] MELOXICAM 7.5 mg tablet 12-29 00:00: 00 01-13 00:00 :00 No [id number] 103 TAKE ONE (1) TABLET BY MOUTH IN THE MORNING. [facility] PANTOPRAZOL E 20 mg EC tablet 12-20 00:00: 00 Yes [id number] TAKE ONE (1) TABLET(S) BY MOUTH ONCE A DAY. [facility] LEVOTHYROXI NE 25 mcg tablet 12-20 00:00: 00 01-04 00:00 :00 No [id number] TAKE ONE (1) TABLET BY MOUTH EVERY MORNING. [facility] acetaminoph en (TYLENOL) tablet 1,000 mg 12-01 18:45: 00 12-01 18:30 :00 No 1000mg 1,000 mg, Oral, ONCE, 1 dose, On Mon12/01/22 at 1345, Routine [facility] LEVOTHYROXI NE 25 mcg tablet 11-21 00:00: 00 12-20 00:00 :00 No [id number] TAKE ONE (1) TABLET BY MOUTH EVERY MORNING. [facility] tirzepatide (MOUNJARO) 5 mg/0.5 mL PnIj 11-16 00:00: 00 03-21 00:00 :00 No [id number] 5mg inject 5 mg under the skin weekly. [facility] PANTOPRAZOL E 20 mg EC tablet 10-21 00:00: 00 12-20 00:00 :00 No [id number] TAKE ONE (1) TABLET(S) BY MOUTH ONCE A DAY. [facility] LEVOTHYROXI NE 25 mcg tablet 10-21 00:00: 00 11-21 00:00 :00 No [id number] TAKE ONE (1) TABLET BY MOUTH EVERY MORNING. [facility] losartan 50 mg tablet 10-13 00:00: 00 01-04 00:00 :00 No [id number] 50mg Take 1 tablet by mouth in the morning. [facility] metoprolol succinate XL 25 mg 24 hr tablet 10-13 00:00: 00 01-04 00:00 :00 No [id number] 25mg Take 1 tablet by mouth in the morning. [facility] gadoteridol (PROHANCE-2 0 mL) injection 0.2 mL/kg 10-12 21:15: 00 10-12 21:14 :00 No [id number] .2mL/kg 0.2 mL/kg, Intravenou s, ONCE, 1 dose, On Mon10/12/22 at 1615, Routine [facility] FLUOXETINE 20 mg capsule 10-07 00:00: 00 01-04 00:00 :00 No [id number] TAKE ONE (1) CAPSULE(S) BY MOUTH IN THE MORNING. [facility] ketorolac (TORADOL) injection 60 mg 10-04 22:30: 00 10-04 22:02 :00 No [id number] 60mg [facility] cloNIDine (CATAPRES) tablet 0.2 mg 10-04 22:30: 00 10-04 22:00 :40 No [id number] .2mg [facility] DULoxetine 20 mg capsule 10-04 00:00: 00 04-03 00:00 :00 No [id number] 20mg Take 1 capsule by mouth in the morning and 1 capsule in the evening. [facility] tiZANidine 2 mg tablet 10-04 00:00: 00 03-30 00:00 :00 No [id number] 2mg Take 1 tablet by mouth every 8 (eight) hours as needed (muscle spasms). [facility] tirzepatide (MOUNJARO) 5 mg/0.5 mL PnIj 10-04 00:00: 00 11-11 00:00 :00 No [id number] 5mg inject 5 mg under the skin weekly. [facility] losartan-hy drochloroth iazide 50-12.5 mg per tablet 10-04 00:00: 00 10-13 00:00 :00 No [id number] 1{tbl} Take 1 tablet by mouth in the morning. [facility] iopamidol (ISOVUE 370-500 mL) injection 80 mL 09-28 20:15: 00 09-28 20:15 :00 No [id number] 80mL 80 mL, Intravenou s, ONCE, 1 dose, On Mon09/28/22 at 1515, Routine [facility] NaCl 0.9% (NS) bolus infusion 1,000 mL 09-28 19:15: 00 09-28 21:35 :00 No 1000mL at 999 mL/hr, 1,000 mL, IV Infusion, ONCE, 1 dose, On Mon09/28/22 at 1415, JACQUI [facility] ondansetron (ZOFRAN (PF)) injection 4 mg 09-28 18:30: 00 09-28 19:03 :00 No 4mg 4 mg, Slow IV Push, ONCE, 1 dose, On Mon09/28/22 at 1330, JACQUI [facility] morpHINE (4 mg/mL) injection 4 mg 09-28 18:30: 00 09-28 19:03 :00 No 4mg 4 mg, Slow IV Push, ONCE, 1 dose, On Mon09/28/22 at 1330, STAT [facility] FLUOXETINE 20 mg capsule 09-21 00:00: 00 10-04 00:00 :00 No [id number] TAKE ONE (1) CAPSULE BY MOUTH IN THE MORNING. [facility] MELOXICAM 7.5 mg tablet 09-19 00:00: 00 12-29 00:00 :00 No [id number] 103 TAKE ONE (1) TABLET BY MOUTH IN THE MORNING. [facility] LEVOTHYROXI NE 25 mcg tablet 09-19 00:00: 00 10-21 00:00 :00 No [id number] TAKE ONE (1) TABLET BY MOUTH EVERY MORNING. [facility] MOUNJARO 5 mg/0.5 mL PnIj - 00:00: 00 10-04 00:00 :00 No [id number] INJECT FIVE (5) MG INTO SKIN ONCE WEEKLY. [facility] FLUOXETINE 20 mg capsule 08-24 00:00: 00 09-21 00:00 :00 No [id number] TAKE ONE (1) CAPSULE BY MOUTH IN THE MORNING. [facility] PANTOPRAZOL E 20 mg EC tablet 08-17 00:00: 00 10-21 00:00 :00 No [id number] TAKE ONE (1) TABLET(S) BY MOUTH ONCE A DAY. [facility] LEVOTHYROXI NE 25 mcg tablet 5-03 00:00: 00 09-19 00:00 :00 No [id number] TAKE ONE (1) TABLET BY MOUTH EVERY MORNING. [facility] LEVOTHYROXI NE 25 mcg tablet 4-06 00:00: 00 Yes [id number] TAKE ONE (1) TABLET BY MOUTH EVERY MORNING. [facility] MOUNJARO 5 mg/0.5 mL PnIj 0 -23 00:00: 00 08-24 00:00 :00 No [id number] INJECT FIVE (5) MG SUBCUTANEO USLY WEEKLY. [facility] LEVOTHYROXI NE 25 mcg tablet 3-09 00:00: 07-21 00:00 :00 No [id number] TAKE ONE (1) TABLET BY MOUTH EVERY MORNING. [facility] MOUNJARO 5 mg/0.5 mL PnIj 06-13 00:00: 00 07-07 00:00 :00 No [id number] INJECT FIVE (5) MG SUBCUTANEO USLY WEEKLY. [facility] PANTOPRAZOL E 20 mg EC tablet 06-09 00:00: 00 08-17 00:00 :00 No [id number] TAKE ONE (1) TABLET(S) BY MOUTH ONCE A DAY. [facility] losartan-hy drochloroth iazide 50-12.5 mg per tablet 06-03 00:00: 00 10-04 00:00 :00 No [id number] 1{tbl} Take 1 tablet by mouth in the morning. [facility] LOSARTAN-HY DROCHLOROTH IAZIDE 50-12.5 mg per tablet 05-30 00:00: 00 06-03 00:00 :00 No [id number] TAKE ONE (1) TABLET(S) BY MOUTH ONCE A DAY. [facility] tirzepatide (MOUNJARO) 5 mg/0.5 mL PnIj 05-12 00:00: 00 06-13 00:00 :00 No [id number] 5mg inject 5 mg under the skin weekly. [facility] PANTOPRAZOL E 20 mg EC tablet 2021-04 00:00: 00 06-09 00:00 :00 No [id number] TAKE ONE (1) TABLET(S) BY MOUTH ONCE A DAY. [facility] LOSARTAN-HY DROCHLOROTH IAZIDE 50-12.5 mg per tablet 2021-04- 00:00: 00 05-30 00:00 :00 No [id number] TAKE ONE (1) TABLET(S) BY MOUTH ONCE A DAY. [facility] ondansetron (ZOFRAN (PF)) injection 4 mg 2021-04 13:45: 00 02-03 13:42 :00 No 4mg 4 mg, Slow IV Push, ONCE, 1 dose, On Judi 02/03/22 at 0845, JACQUI [facility] ondansetron 4 mg disintegrat ing tablet 2021-04 00:00: 00 08-07 00:00 :00 No [id number] 4mg Take 1 tablet by mouth every 8 (eight) hours as needed for Nausea and Vomiting (N/V). [facility] LOSARTAN-HY DROCHLOROTH IAZIDE 50-12.5 mg per tablet 2021-04 00:00: 00 03-30 00:00 :00 No [id number] TAKE ONE (1) TABLET(S) BY MOUTH ONCE A DAY. [facility] meloxicam 7.5 mg tablet 2021-04 16:54: 23 01-27 00:00 :00 No 7.5mg Take 7.5 mg by mouth in the morning. [facility] amitriptyli ne 10 mg tablet 2021-04 00:00: 00 01-04 00:00 :00 No [id number] 103 10mg Take 1 tablet by mouth at bedtime. [facility] doxycycline hyclate 100 mg tablet 2021-04 00:00: 00 10-04 00:00 :00 No [id number] 100mg Take 1 tablet by mouth in the morning and 1 tablet in the evening. [facility] tiZANidine 2 mg tablet 2021-04 00:00: 00 10-04 00:00 :00 No [id number] 103 2mg Take 1 tablet by mouth at bedtime as needed (muscle spasms). [facility] meloxicam 7.5 mg tablet 2021-04 00:00: 00 09-19 00:00 :00 No [id number] 103 7.5mg Take 1 tablet by mouth in the morning. [facility] FLUoxetine 20 mg capsule 2021-04 00:00: 00 08-24 00:00 :00 No [id number] 20mg Take 1 capsule by mouth in the morning. [facility] tirzepatide (MOUNJARO) 2.5 mg/0.5 mL PnIj 2021-04 00:00: 00 05-12 00:00 :00 No [id number] 2.5mg inject 2.5 mg under the skin weekly. Start 2.5mg SC qWeek x 4 Weeks, then increase to 5 mg SC qWeek [facility] TRULICITY 0.75 mg/0.5 mL PnIj 12-27 00:00: 00 01-27 00:00 :00 No [id number] .75mg INJECT 0.75 MG UNDER THE SKIN WEEKLY. [facility] meloxicam 7.5 mg tablet 12-23 15:52: 42 Yes 7.5mg Take 7.5 mg by mouth in the morning. [facility] acetaminoph en 650 mg CR tablet 12-23 00:00: 00 Yes [id number] 650mg Take 1 tablet by mouth every 8 (eight) hours as needed for Pain or Fever. [facility] Diclofenac Sodium (VOLTAREN) 1 % gel 12-23 00:00: 00 Yes [id number] Apply to area(s) 4 (four) times daily. Apply 4 g QID on affected areas [facility] doxycycline hyclate 100 mg tablet 12-23 00:00: 00 01-27 00:00 :00 No [id number] 100mg Take 1 tablet by mouth in the morning and 1 tablet in the evening. [facility] LEVOTHYROXI NE 25 mcg tablet 12-22 00:00: 00 06-23 00:00 :00 No [id number] TAKE ONE (1) TABLET BY MOUTH EVERY MORNING. [facility] lidocaine 5 % ointment 12-08 00:00: 00 Yes [id number] Apply 2g to affected areas BID PRN [facility] adalimumab 40 mg/0.4 mL injection 12-08 00:00: 00 01-09 00:00 :00 No [id number] Start 160mg SC x 1 on Day 1, then 80mg SC x 1 on day 15, then 40mg SC qWeek. [facility] amitriptyli ne 10 mg tablet 8-24 00:00: 00 01-27 00:00 :00 No [id number] 10mg Take 1 tablet by mouth at bedtime. [facility] tiZANidine 2 mg tablet 8 00:00: 00 01-27 00:00 :00 No [id number] 2mg Take 1 tablet by mouth every 8 (eight) hours as needed (muscle spasms). [facility] LOSARTAN-HY DROCHLOROTH IAZIDE 50-12.5 mg per tablet 11-26 00:00: 00 02-02 00:00 :00 No [id number] TAKE ONE (1) TABLET(S) BY MOUTH ONCE A DAY. [facility] FLUoxetine 20 mg capsule 6-17 00:00: 00 01-27 00:00 :00 No [id number] 20mg Take 1 capsule by mouth daily. [facility] PANTOPRAZOL E 20 mg EC tablet 4-08 00:00: 00 04-13 00:00 :00 No [id number] TAKE ONE (1) TABLET(S) BY MOUTH ONCE A DAY. [facility] dulaglutide (TRULICITY) 1.5 mg/0.5 mL PnIj 06-23 00:00: 00 01-27 00:00 :00 No [id number] 1.5mg inject 1.5 mg under the skin weekly. [facility] dulaglutide (TRULICITY) 0.75 mg/0.5 mL PnIj 06-23 00:00: 00 12-27 00:00 :00 No [id number] .75mg inject 0.75 mg under the skin weekly. [facility] levothyroxi ne 25 mcg tablet 2020-04 1- 00:00: 00 05-05 00:00 :00 No [id number] 25ug Take 1 tablet by mouth every morning. [facility] losartan-hy drochloroth iazide 50-12.5 mg per tablet 2020-04 0 00:00: 00 07-26 00:00 :00 No [id number] 1{tbl} Take 1 tablet by mouth daily. [facility] FLUoxetine 10 mg capsule 2020-04 0 00:00: 00 05-05 00:00 :00 No [id number] 10mg Take 1 capsule by mouth daily. [facility] pantoprazol e 20 mg EC tablet 2020-04 00:00: 00 04-20 00:00 :00 No [id number] 20mg Take 1 tablet by mouth daily. [facility] hydrOXYzine 50 mg tablet 2019-04 00:00: 00 12-23 00:00 :00 No [id number] 50mg Take 1 tablet by mouth every 8 (eight) hours as needed for Anxiety. [facility] vitamin C with jacob hips (VITAMIN C) 1,000 mg tablet 12-31 00:00: 00 01-29 00:00 :00 No [id number] 1000mg Take 1 tablet by mouth daily. [facility] Cholecalcif david, Vitamin D3, (VITAMIN D3) 125 mcg (5,000 unit) tablet 12-31 00:00: 00 01-27 00:00 :00 No [id number] 5000U Take 1 tablet by mouth daily. [facility] Immunizations Ordered Immunization Name Filled Immunization Name Date Status Comments Source HPV9 2024-10-07 00:00:[address] [facility] Pneumococcal 20 Conjugate, PCV20 (Prevnar 20) 2024-08-07 00:00:[address] [facility] HPV9 2024-08-07 00:00:00 Completed Influenza Virus Vaccine 2021-01-29 00:00:[address] [facility] Influenza Virus Vaccine 2021-01-29 00:00:[address] [facility] Influenza Virus Vaccine 2021-01-29 00:00:[address] [facility] Influenza Virus Vaccine 2021-01-29 00:00:[address] [facility] Influenza Virus Vaccine 2021-01-29 00:00:00 Completed [facility] Influenza Virus Vaccine 2021-01-29 00:00:00 Completed [facility] Influenza Virus Vaccine 2021-01-29 00:00:00 Completed [facility] Influenza Virus Vaccine 2021-01-29 00:00:[address] [facility] Influenza Virus Vaccine 2021-01-29 00:00:00 Completed [facility] Influenza Virus Vaccine 2021-01-29 00:00:00 Completed [facility] Influenza Virus Vaccine 2021-01-29 00:00:[address] [facility] Influenza Virus Vaccine 2021-01-29 00:00:[address] [facility] Influenza Virus Vaccine 2021-01-29 00:00:[address] [facility] Influenza Virus Vaccine 2021-01-29 00:00:[address] [facility] Influenza Virus Vaccine 2021-01-29 00:00:[address] [facility] Influenza Virus Vaccine 2021-01-29 00:00:[address] [facility] Influenza Virus Vaccine 2021-01-29 00:00:[address] [facility] Influenza Virus Vaccine 2021-01-29 00:00:[address] [facility] Influenza Virus Vaccine 2021-01-29 00:00:[address] [facility] Influenza Virus Vaccine 2021-01-29 00:00:[address] [facility] Influenza Virus Vaccine 2021-01-29 00:00:[address] [facility] Influenza Virus Vaccine 2021-01-29 00:00:00 Completed [facility] Influenza Virus Vaccine 2021-01-29 00:00:00 Completed [facility] Influenza Virus Vaccine 2021-01-29 00:00:[address] [facility] Influenza Virus Vaccine 2021-01-29 00:00:00 Completed [facility] Influenza Virus Vaccine 2021-01-29 00:00:[address] [facility] Influenza Virus Vaccine 2021-01-29 00:00:[address] [facility] Influenza Virus Vaccine 2021-01-29 00:00:[address] [facility] Influenza Virus Vaccine 2021-01-29 00:00:[address] [facility] Influenza Virus Vaccine 2021-01-29 00:00:00 Completed [facility] Influenza Virus Vaccine 2021-01-29 00:00:00 Completed [facility] Influenza Virus Vaccine 2021-01-29 00:00:00 Completed [facility] Influenza Virus Vaccine 2021-01-29 00:00:[address] [facility] Influenza Virus Vaccine 2021-01-29 00:00:00 Completed [facility] Influenza Virus Vaccine 2021-01-29 00:00:00 Completed [facility] Influenza Virus Vaccine 2021-01-29 00:00:[address] [facility] Influenza Virus Vaccine 2021-01-29 00:00:[address] [facility] Influenza Virus Vaccine 2021-01-29 00:00:[address] [facility] Influenza Virus Vaccine 2021-01-29 00:00:[address] [facility] Influenza Virus Vaccine 2021-01-29 00:00:[address] [facility] Influenza Virus Vaccine 2021-01-29 00:00:[address] [facility] Influenza Virus Vaccine 2021-01-29 00:00:[address] [facility] Influenza Virus Vaccine 2021-01-29 00:00:[address] [facility] Influenza Virus Vaccine 2021-01-29 00:00:[address] [facility] Influenza Virus Vaccine 2021-01-29 00:00:[address] [facility] Influenza Virus Vaccine 2021-01-29 00:00:[address] [facility] Influenza Virus Vaccine 2021-01-29 00:00:00 Completed [facility] Influenza Virus Vaccine 2021-01-29 00:00:00 Completed [facility] Influenza Virus Vaccine 2021-01-29 00:00:[address] [facility] Influenza Virus Vaccine 2021-01-29 00:00:00 Completed [facility] Influenza Virus Vaccine 2021-01-29 00:00:[address] [facility] Influenza Virus Vaccine 2021-01-29 00:00:[address] [facility] Influenza Virus Vaccine 2021-01-29 00:00:[address] [facility] Influenza Virus Vaccine 2021-01-29 00:00:[address] [facility] Influenza Virus Vaccine 2021-01-29 00:00:[address] [facility] Influenza Virus Vaccine 2021-01-29 00:00:[address] [facility] SARS-COV-2 COVID-19 PFIZER VACCINE 2020-12-11 00:00:[address] [facility] SARS-COV-2 COVID-19 PFIZER VACCINE 2020-12-11 00:00:[address] [facility] SARS-COV-2 COVID-19 PFIZER VACCINE 2020-12-11 00:00:[address] [facility] SARS-COV-2 COVID-19 PFIZER VACCINE 2020-12-11 00:00:[address] [facility] SARS-COV-2 COVID-19 PFIZER VACCINE 2020-12-11 00:00:[address] [facility] SARS-COV-2 COVID-19 PFIZER VACCINE 2020-12-11 00:00:00 Completed [facility] SARS-COV-2 COVID-19 PFIZER VACCINE 2020-12-11 00:00:[address] [facility] SARS-COV-2 COVID-19 PFIZER VACCINE 2020-12-11 00:00:[address] [facility] SARS-COV-2 COVID-19 PFIZER VACCINE 2020-12-11 00:00:[address] [facility] SARS-COV-2 COVID-19 PFIZER VACCINE 2020-12-11 00:00:[address] [facility] SARS-COV-2 COVID-19 PFIZER VACCINE 2020-12-11 00:00:[address] [facility] SARS-COV-2 COVID-19 PFIZER VACCINE 2020-12-11 00:00:[address] [facility] SARS-COV-2 COVID-19 PFIZER VACCINE 2020-12-11 00:00:[address] [facility] SARS-COV-2 COVID-19 PFIZER VACCINE 2020-12-11 00:00:[address] [facility] SARS-COV-2 COVID-19 PFIZER VACCINE 2020-12-11 00:00:[address] [facility] SARS-COV-2 COVID-19 PFIZER VACCINE 2020-12-11 00:00:[address] [facility] SARS-COV-2 COVID-19 PFIZER VACCINE 2020-12-11 00:00:[address] [facility] SARS-COV-2 COVID-19 PFIZER VACCINE 2020-12-11 00:00:[address] [facility] SARS-COV-2 COVID-19 PFIZER VACCINE 2020-12-11 00:00:[address] [facility] SARS-COV-2 COVID-19 PFIZER VACCINE 2020-12-11 00:00:[address] [facility] SARS-COV-2 COVID-19 PFIZER VACCINE 2020-12-11 00:00:[address] [facility] SARS-COV-2 COVID-19 PFIZER VACCINE 2020-12-11 00:00:[address] [facility] SARS-COV-2 COVID-19 PFIZER VACCINE 2020-12-11 00:00:[address] [facility] SARS-COV-2 COVID-19 PFIZER VACCINE 2020-12-11 00:00:[address] [facility] SARS-COV-2 COVID-19 PFIZER VACCINE 2020-12-11 00:00:[address] [facility] SARS-COV-2 COVID-19 PFIZER VACCINE 2020-12-11 00:00:[address] [facility] SARS-COV-2 COVID-19 PFIZER VACCINE 2020-12-11 00:00:[address] [facility] SARS-COV-2 COVID-19 PFIZER VACCINE 2020-12-11 00:00:[address] [facility] SARS-COV-2 COVID-19 PFIZER VACCINE 2020-12-11 00:00:[address] [facility] SARS-COV-2 COVID-19 PFIZER VACCINE 2020-12-11 00:00:[address] [facility] SARS-COV-2 COVID-19 PFIZER VACCINE 2020-12-11 00:00:[address] [facility] SARS-COV-2 COVID-19 PFIZER VACCINE 2020-12-11 00:00:[address] [facility] SARS-COV-2 COVID-19 PFIZER VACCINE 2020-12-11 00:00:[address] [facility] SARS-COV-2 COVID-19 PFIZER VACCINE 2020-12-11 00:00:[address] [facility] SARS-COV-2 COVID-19 PFIZER VACCINE 2020-12-11 00:00:[address] [facility] SARS-COV-2 COVID-19 PFIZER VACCINE 2020-12-11 00:00:[address] [facility] SARS-COV-2 COVID-19 PFIZER VACCINE 2020-12-11 00:00:[address] [facility] SARS-COV-2 COVID-19 PFIZER VACCINE 2020-12-11 00:00:[address] [facility] SARS-COV-2 COVID-19 PFIZER VACCINE 2020-12-11 00:00:[address] [facility] SARS-COV-2 COVID-19 PFIZER VACCINE 2020-12-11 00:00:[address] [facility] SARS-COV-2 COVID-19 PFIZER VACCINE 2020-12-11 00:00:[address] [facility] SARS-COV-2 COVID-19 PFIZER VACCINE 2020-12-11 00:00:[address] [facility] SARS-COV-2 COVID-19 PFIZER VACCINE 2020-12-11 00:00:[address] [facility] SARS-COV-2 COVID-19 PFIZER VACCINE 2020-12-11 00:00:[address] [facility] SARS-COV-2 COVID-19 PFIZER VACCINE 2020-12-11 00:00:[address] [facility] SARS-COV-2 COVID-19 PFIZER VACCINE 2020-12-11 00:00:[address] [facility] SARS-COV-2 COVID-19 PFIZER VACCINE 2020-12-11 00:00:[address] [facility] SARS-COV-2 COVID-19 PFIZER VACCINE 2020-12-11 00:00:[address] [facility] SARS-COV-2 COVID-19 PFIZER VACCINE 2020-12-11 00:00:[address] [facility] SARS-COV-2 COVID-19 PFIZER VACCINE 2020-12-11 00:00:[address] [facility] SARS-COV-2 COVID-19 PFIZER VACCINE 2020-12-11 00:00:[address] [facility] SARS-COV-2 COVID-19 PFIZER VACCINE 2020-12-11 00:00:[address] [facility] SARS-COV-2 COVID-19 PFIZER VACCINE 2020-12-11 00:00:[address] [facility] SARS-COV-2 COVID-19 PFIZER VACCINE 2020-12-11 00:00:[address] [facility] SARS-COV-2 COVID-19 PFIZER VACCINE 2020-12-11 00:00:[address] [facility] SARS-COV-2 COVID-19 PFIZER VACCINE 2020-12-11 00:00:[address] [facility] SARS-COV-2 COVID-19 PFIZER VACCINE 2020-11-14 00:00:[address] [facility] SARS-COV-2 COVID-19 PFIZER VACCINE 2020-11-14 00:00:[address] [facility] SARS-COV-2 COVID-19 PFIZER VACCINE 2020-11-14 00:00:[address] [facility] SARS-COV-2 COVID-19 PFIZER VACCINE 2020-11-14 00:00:[address] [facility] SARS-COV-2 COVID-19 PFIZER VACCINE 2020-11-14 00:00:[address] [facility] SARS-COV-2 COVID-19 PFIZER VACCINE 2020-11-14 00:00:[address] [facility] SARS-COV-2 COVID-19 PFIZER VACCINE 2020-11-14 00:00:[address] [facility] SARS-COV-2 COVID-19 PFIZER VACCINE 2020-11-14 00:00:[address] [facility] SARS-COV-2 COVID-19 PFIZER VACCINE 2020-11-14 00:00:[address] [facility] SARS-COV-2 COVID-19 PFIZER VACCINE 2020-11-14 00:00:[address] [facility] SARS-COV-2 COVID-19 PFIZER VACCINE 2020-11-14 00:00:[address] [facility] SARS-COV-2 COVID-19 PFIZER VACCINE 2020-11-14 00:00:[address] [facility] SARS-COV-2 COVID-19 PFIZER VACCINE 2020-11-14 00:00:[address] [facility] SARS-COV-2 COVID-19 PFIZER VACCINE 2020-11-14 00:00:[address] [facility] SARS-COV-2 COVID-19 PFIZER VACCINE 2020-11-14 00:00:[address] [facility] SARS-COV-2 COVID-19 PFIZER VACCINE 2020-11-14 00:00:[address] [facility] SARS-COV-2 COVID-19 PFIZER VACCINE 2020-11-14 00:00:[address] [facility] SARS-COV-2 COVID-19 PFIZER VACCINE 2020-11-14 00:00:[address] [facility] SARS-COV-2 COVID-19 PFIZER VACCINE 2020-11-14 00:00:[address] [facility] SARS-COV-2 COVID-19 PFIZER VACCINE 2020-11-14 00:00:[address] [facility] SARS-COV-2 COVID-19 PFIZER VACCINE 2020-11-14 00:00:[address] [facility] SARS-COV-2 COVID-19 PFIZER VACCINE 2020-11-14 00:00:[address] [facility] SARS-COV-2 COVID-19 PFIZER VACCINE 2020-11-14 00:00:[address] [facility] SARS-COV-2 COVID-19 PFIZER VACCINE 2020-11-14 00:00:[address] [facility] SARS-COV-2 COVID-19 PFIZER VACCINE 2020-11-14 00:00:[address] [facility] SARS-COV-2 COVID-19 PFIZER VACCINE 2020-11-14 00:00:[address] [facility] SARS-COV-2 COVID-19 PFIZER VACCINE 2020-11-14 00:00:[address] [facility] SARS-COV-2 COVID-19 PFIZER VACCINE 2020-11-14 00:00:[address] [facility] SARS-COV-2 COVID-19 PFIZER VACCINE 2020-11-14 00:00:[address] [facility] SARS-COV-2 COVID-19 PFIZER VACCINE 2020-11-14 00:00:[address] [facility] SARS-COV-2 COVID-19 PFIZER VACCINE 2020-11-14 00:00:[address] [facility] SARS-COV-2 COVID-19 PFIZER VACCINE 2020-11-14 00:00:[address] [facility] SARS-COV-2 COVID-19 PFIZER VACCINE 2020-11-14 00:00:[address] [facility] SARS-COV-2 COVID-19 PFIZER VACCINE 2020-11-14 00:00:[address] [facility] SARS-COV-2 COVID-19 PFIZER VACCINE 2020-11-14 00:00:[address] [facility] SARS-COV-2 COVID-19 PFIZER VACCINE 2020-11-14 00:00:[address] [facility] SARS-COV-2 COVID-19 PFIZER VACCINE 2020-11-14 00:00:[address] [facility] SARS-COV-2 COVID-19 PFIZER VACCINE 2020-11-14 00:00:[address] [facility] SARS-COV-2 COVID-19 PFIZER VACCINE 2020-11-14 00:00:[address] [facility] SARS-COV-2 COVID-19 PFIZER VACCINE 2020-11-14 00:00:[address] [facility] SARS-COV-2 COVID-19 PFIZER VACCINE 2020-11-14 00:00:[address] [facility] SARS-COV-2 COVID-19 PFIZER VACCINE 2020-11-14 00:00:[address] [facility] SARS-COV-2 COVID-19 PFIZER VACCINE 2020-11-14 00:00:[address] [facility] SARS-COV-2 COVID-19 PFIZER VACCINE 2020-11-14 00:00:[address] [facility] SARS-COV-2 COVID-19 PFIZER VACCINE 2020-11-14 00:00:[address] [facility] SARS-COV-2 COVID-19 PFIZER VACCINE 2020-11-14 00:00:[address] [facility] SARS-COV-2 COVID-19 PFIZER VACCINE 2020-11-14 00:00:[address] [facility] SARS-COV-2 COVID-19 PFIZER VACCINE 2020-11-14 00:00:[address] [facility] SARS-COV-2 COVID-19 PFIZER VACCINE 2020-11-14 00:00:[address] [facility] SARS-COV-2 COVID-19 PFIZER VACCINE 2020-11-14 00:00:[address] [facility] SARS-COV-2 COVID-19 PFIZER VACCINE 2020-11-14 00:00:[address] [facility] SARS-COV-2 COVID-19 PFIZER VACCINE 2020-11-14 00:00:[address] [facility] SARS-COV-2 COVID-19 PFIZER VACCINE 2020-11-14 00:00:[address] [facility] SARS-COV-2 COVID-19 PFIZER VACCINE 2020-11-14 00:00:[address] [facility] SARS-COV-2 COVID-19 PFIZER VACCINE 2020-11-14 00:00:[address] [facility] SARS-COV-2 COVID-19 PFIZER VACCINE 2020-11-14 00:00:[address] [facility] TDAP 2019-01-14 00:00:[address] [facility] Influenza Virus Vaccine Quad .5 mL IM 6+ MO 2019-01-14 00:00:[address] [facility] TDAP 2019-01-14 00:00:[address] [facility] Influenza Virus Vaccine Quad .5 mL IM 6+ MO 2019-01-14 00:00:[address] [facility] TDAP 2019-01-14 00:00:[address] [facility] Influenza Virus Vaccine Quad .5 mL IM 6+ MO 2019-01-14 00:00:[address] [facility] TDAP 2019-01-14 00:00:[address] [facility] Influenza Virus Vaccine Quad .5 mL IM 6+ MO 2019-01-14 00:00:[address] [facility] TDAP 2019-01-14 00:00:[address] [facility] Influenza Virus Vaccine Quad .5 mL IM 6+ MO 2019-01-14 00:00:[address] [facility] TDAP 2019-01-14 00:00:[address] [facility] Influenza Virus Vaccine Quad .5 mL IM 6+ MO 2019-01-14 00:00:[address] [facility] TDAP 2019-01-14 00:00:[address] [facility] Influenza Virus Vaccine Quad .5 mL IM 6+ MO 2019-01-14 00:00:[address] [facility] TDAP 2019-01-14 00:00:[address] [facility] Influenza Virus Vaccine Quad .5 mL IM 6+ MO 2019-01-14 00:00:[address] [facility] TDAP 2019-01-14 00:00:[address] [facility] Influenza Virus Vaccine Quad .5 mL IM 6+ MO 2019-01-14 00:00:[address] [facility] TDAP 2019-01-14 00:00:[address] [facility] Influenza Virus Vaccine Quad .5 mL IM 6+ MO 2019-01-14 00:00:[address] [facility] TDAP 2019-01-14 00:00:[address] [facility] Influenza Virus Vaccine Quad .5 mL IM 6+ MO 2019-01-14 00:00:[address] [facility] TDAP 2019-01-14 00:00:[address] [facility] Influenza Virus Vaccine Quad .5 mL IM 6+ MO 2019-01-14 00:00:[address] [facility] TDAP 2019-01-14 00:00:[address] [facility] Influenza Virus Vaccine Quad .5 mL IM 6+ MO 2019-01-14 00:00:[address] [facility] TDAP 2019-01-14 00:00:[address] [facility] Influenza Virus Vaccine Quad .5 mL IM 6+ MO 2019-01-14 00:00:[address] [facility] TDAP 2019-01-14 00:00:[address] [facility] Influenza Virus Vaccine Quad .5 mL IM 6+ MO 2019-01-14 00:00:[address] [facility] TDAP 2019-01-14 00:00:[address] [facility] Influenza Virus Vaccine Quad .5 mL IM 6+ MO 2019-01-14 00:00:[address] [facility] TDAP 2019-01-14 00:00:[address] [facility] Influenza Virus Vaccine Quad .5 mL IM 6+ MO 2019-01-14 00:00:[address] [facility] TDAP 2019-01-14 00:00:[address] [facility] Influenza Virus Vaccine Quad .5 mL IM 6+ MO 2019-01-14 00:00:[address] [facility] TDAP 2019-01-14 00:00:[address] [facility] Influenza Virus Vaccine Quad .5 mL IM 6+ MO 2019-01-14 00:00:[address] [facility] TDAP 2019-01-14 00:00:[address] [facility] Influenza Virus Vaccine Quad .5 mL IM 6+ MO 2019-01-14 00:00:[address] [facility] TDAP 2019-01-14 00:00:[address] [facility] Influenza Virus Vaccine Quad .5 mL IM 6+ MO 2019-01-14 00:00:[address] [facility] TDAP 2019-01-14 00:00:[address] [facility] Influenza Virus Vaccine Quad .5 mL IM 6+ MO 2019-01-14 00:00:[address] [facility] TDAP 2019-01-14 00:00:[address] [facility] Influenza Virus Vaccine Quad .5 mL IM 6+ MO 2019-01-14 00:00:[address] [facility] TDAP 2019-01-14 00:00:[address] [facility] Influenza Virus Vaccine Quad .5 mL IM 6+ MO 2019-01-14 00:00:[address] [facility] TDAP 2019-01-14 00:00:[address] [facility] Influenza Virus Vaccine Quad .5 mL IM 6+ MO 2019-01-14 00:00:[address] [facility] TDAP 2019-01-14 00:00:[address] [facility] Influenza Virus Vaccine Quad .5 mL IM 6+ MO 2019-01-14 00:00:[address] [facility] TDAP 2019-01-14 00:00:[address] [facility] Influenza Virus Vaccine Quad .5 mL IM 6+ MO 2019-01-14 00:00:[address] [facility] TDAP 2019-01-14 00:00:[address] [facility] Influenza Virus Vaccine Quad .5 mL IM 6+ MO 2019-01-14 00:00:[address] [facility] TDAP 2019-01-14 00:00:[address] [facility] Influenza Virus Vaccine Quad .5 mL IM 6+ MO 2019-01-14 00:00:[address] [facility] TDAP 2019-01-14 00:00:[address] [facility] Influenza Virus Vaccine Quad .5 mL IM 6+ MO 2019-01-14 00:00:[address] [facility] TDAP 2019-01-14 00:00:[address] [facility] Influenza Virus Vaccine Quad .5 mL IM 6+ MO 2019-01-14 00:00:[address] [facility] TDAP 2019-01-14 00:00:[address] [facility] Influenza Virus Vaccine Quad .5 mL IM 6+ MO 2019-01-14 00:00:[address] [facility] TDAP 2019-01-14 00:00:[address] [facility] Influenza Virus Vaccine Quad .5 mL IM 6+ MO 2019-01-14 00:00:[address] [facility] TDAP 2019-01-14 00:00:[address] [facility] Influenza Virus Vaccine Quad .5 mL IM 6+ MO 2019-01-14 00:00:[address] [facility] TDAP 2019-01-14 00:00:[address] [facility] Influenza Virus Vaccine Quad .5 mL IM 6+ MO 2019-01-14 00:00:[address] [facility] TDAP 2019-01-14 00:00:[address] [facility] Influenza Virus Vaccine Quad .5 mL IM 6+ MO 2019-01-14 00:00:[address] [facility] TDAP 2019-01-14 00:00:[address] [facility] Influenza Virus Vaccine Quad .5 mL IM 6+ MO 2019-01-14 00:00:[address] [facility] TDAP 2019-01-14 00:00:[address] [facility] Influenza Virus Vaccine Quad .5 mL IM 6+ MO 2019-01-14 00:00:[address] [facility] TDAP 2019-01-14 00:00:[address] [facility] Influenza Virus Vaccine Quad .5 mL IM 6+ MO 2019-01-14 00:00:[address] [facility] TDAP 2019-01-14 00:00:[address] [facility] Influenza Virus Vaccine Quad .5 mL IM 6+ MO 2019-01-14 00:00:[address] [facility] TDAP 2019-01-14 00:00:[address] [facility] Influenza Virus Vaccine Quad .5 mL IM 6+ MO 2019-01-14 00:00:[address] [facility] TDAP 2019-01-14 00:00:[address] [facility] Influenza Virus Vaccine Quad .5 mL IM 6+ MO 2019-01-14 00:00:[address] [facility] TDAP 2019-01-14 00:00:[address] [facility] Influenza Virus Vaccine Quad .5 mL IM 6+ MO 2019-01-14 00:00:[address] [facility] TDAP 2019-01-14 00:00:[address] [facility] Influenza Virus Vaccine Quad .5 mL IM 6+ MO 2019-01-14 00:00:[address] [facility] TDAP 2019-01-14 00:00:[address] [facility] Influenza Virus Vaccine Quad .5 mL IM 6+ MO 2019-01-14 00:00:[address] [facility] TDAP 2019-01-14 00:00:[address] [facility] Influenza Virus Vaccine Quad .5 mL IM 6+ MO 2019-01-14 00:00:[address] [facility] TDAP 2019-01-14 00:00:[address] [facility] Influenza Virus Vaccine Quad .5 mL IM 6+ MO 2019-01-14 00:00:[address] [facility] TDAP 2019-01-14 00:00:[address] [facility] Influenza Virus Vaccine Quad .5 mL IM 6+ MO 2019-01-14 00:00:[address] [facility] TDAP 2019-01-14 00:00:[address] [facility] Influenza Virus Vaccine Quad .5 mL IM 6+ MO 2019-01-14 00:00:[address] [facility] TDAP 2019-01-14 00:00:[address] [facility] Influenza Virus Vaccine Quad .5 mL IM 6+ MO 2019-01-14 00:00:[address] [facility] TDAP 2019-01-14 00:00:[address] [facility] Influenza Virus Vaccine Quad .5 mL IM 6+ MO (FLUZONE/FLULAVAL/F LUARIX) 2019-01-14 00:00:[address] [facility] TDAP 2019-01-14 00:00:[address] [facility] Influenza Virus Vaccine Quad .5 mL IM 6+ MO (FLUZONE/FLULAVAL/F LUARIX) 2019-01-14 00:00:[address] [facility] TDAP 2019-01-14 00:00:[address] [facility] Influenza Virus Vaccine Quad .5 mL IM 6+ MO (FLUZONE/FLULAVAL/F LUARIX) 2019-01-14 00:00:[address] [facility] TDAP 2019-01-14 00:00:[address] [facility] Influenza Virus Vaccine Quad .5 mL IM 6+ MO (FLUZONE/FLULAVAL/F LUARIX) 2019-01-14 00:00:[address] [facility] TDAP 2019-01-14 00:00:[address] [facility] Influenza Virus Vaccine Quad .5 mL IM 6+ MO (FLUZONE/FLULAVAL/F LUARIX) 2019-01-14 00:00:00 Completed TDAP 2019-01-14 00:00:[address] [facility] Influenza Virus Vaccine Quad .5 mL IM 6+ MO (FLUZONE/FLULAVAL/F LUARIX) 2019-01-14 00:00:00 Completed TDAP Unknown Completed [facility] Influenza Virus Vaccine Quad .5 mL IM 6+ MO (FLUZONE/FLULAVAL/F LUARIX) Unknown Completed [facility] SARS-COV-2 COVID-19 PFIZER VACCINE Unknown Completed [facility] Influenza Virus Vaccine Unknown Completed [facility] TDAP Unknown Completed [facility] Influenza Virus Vaccine Quad .5 mL IM 6+ MO (FLUZONE/FLULAVAL/F LUARIX) Unknown Completed [facility] SARS-COV-2 COVID-19 PFIZER VACCINE Unknown Completed [facility] Influenza Virus Vaccine Unknown Completed [facility] TDAP Unknown Completed [facility] Influenza Virus Vaccine Quad .5 mL IM 6+ MO (FLUZONE/FLULAVAL/F LUARIX) Unknown Completed [facility] SARS-COV-2 COVID-19 PFIZER VACCINE Unknown Completed [facility] Influenza Virus Vaccine Unknown Completed [facility] TDAP Unknown Completed [facility] Influenza Virus Vaccine Quad .5 mL IM 6+ MO (FLUZONE/FLULAVAL/F LUARIX) Unknown Completed [facility] SARS-COV-2 COVID-19 PFIZER VACCINE Unknown Completed [facility] Influenza Virus Vaccine Unknown Completed [facility] TDAP Unknown Completed [facility] Influenza Virus Vaccine Quad .5 mL IM 6+ MO (FLUZONE/FLULAVAL/F LUARIX) Unknown Completed [facility] SARS-COV-2 COVID-19 PFIZER VACCINE Unknown Completed [facility] Influenza Virus Vaccine Unknown Completed [facility] TDAP Unknown Completed [facility] Influenza Virus Vaccine Quad .5 mL IM 6+ MO (FLUZONE/FLULAVAL/F LUARIX) Unknown Completed [facility] SARS-COV-2 COVID-19 PFIZER VACCINE Unknown Completed [facility] Influenza Virus Vaccine Unknown Completed [facility] TDAP Unknown Completed [facility] Influenza Virus Vaccine Quad .5 mL IM 6+ MO (FLUZONE/FLULAVAL/F LUARIX) Unknown Completed [facility] SARS-COV-2 COVID-19 PFIZER VACCINE Unknown Completed [facility] Influenza Virus Vaccine Unknown Completed [facility] TDAP Unknown Completed [facility] Influenza Virus Vaccine Quad .5 mL IM 6+ MO (FLUZONE/FLULAVAL/F LUARIX) Unknown Completed [facility] SARS-COV-2 COVID-19 PFIZER VACCINE Unknown Completed [facility] Influenza Virus Vaccine Unknown Completed [facility] TDAP Unknown Completed [facility] Influenza Virus Vaccine Quad .5 mL IM 6+ MO (FLUZONE/FLULAVAL/F LUARIX) Unknown Completed [facility] SARS-COV-2 COVID-19 PFIZER VACCINE Unknown Completed [facility] Influenza Virus Vaccine Unknown Completed [facility] TDAP Unknown Completed [facility] Influenza Virus Vaccine Quad .5 mL IM 6+ MO (FLUZONE/FLULAVAL/F LUARIX) Unknown Completed [facility] SARS-COV-2 COVID-19 PFIZER VACCINE Unknown Completed [facility] Influenza Virus Vaccine Unknown Completed [facility] TDAP Unknown Completed [facility] Influenza Virus Vaccine Quad .5 mL IM 6+ MO (FLUZONE/FLULAVAL/F LUARIX) Unknown Completed [facility] SARS-COV-2 COVID-19 PFIZER VACCINE Unknown Completed [facility] Influenza Virus Vaccine Unknown Completed [facility] TDAP Unknown Completed [facility] Influenza Virus Vaccine Quad .5 mL IM 6+ MO (FLUZONE/FLULAVAL/F LUARIX) Unknown Completed [facility] SARS-COV-2 COVID-19 PFIZER VACCINE Unknown Completed [facility] Influenza Virus Vaccine Unknown Completed [facility] TDAP Unknown Completed [facility] Influenza Virus Vaccine Quad .5 mL IM 6+ MO (FLUZONE/FLULAVAL/F LUARIX) Unknown Completed [facility] SARS-COV-2 COVID-19 PFIZER VACCINE Unknown Completed [facility] Influenza Virus Vaccine Unknown Completed [facility] TDAP Unknown Completed [facility] Influenza Virus Vaccine Quad .5 mL IM 6+ MO (FLUZONE/FLULAVAL/F LUARIX) Unknown Completed [facility] SARS-COV-2 COVID-19 PFIZER VACCINE Unknown Completed [facility] TDAP Unknown Completed [facility] Influenza Virus Vaccine Quad .5 mL IM 6+ MO (FLUZONE/FLULAVAL/F LUARIX) Unknown Completed [facility] SARS-COV-2 COVID-19 PFIZER VACCINE Unknown Completed [facility] TDAP Unknown Completed [facility] Influenza Virus Vaccine Quad .5 mL IM 6+ MO (FLUZONE/FLULAVAL/F LUARIX) Unknown Completed [facility] SARS-COV-2 COVID-19 PFIZER VACCINE Unknown Completed [facility] Influenza Virus Vaccine Unknown Completed [facility] TDAP Unknown Completed [facility] Influenza Virus Vaccine Quad .5 mL IM 6+ MO (FLUZONE/FLULAVAL/F LUARIX) Unknown Completed [facility] SARS-COV-2 COVID-19 PFIZER VACCINE Unknown Completed [facility] Influenza Virus Vaccine Unknown Completed [facility] TDAP Unknown Completed [facility] Influenza Virus Vaccine Quad .5 mL IM 6+ MO (FLUZONE/FLULAVAL/F LUARIX) Unknown Completed [facility] SARS-COV-2 COVID-19 PFIZER VACCINE Unknown Completed [facility] Influenza Virus Vaccine Unknown Completed [facility] TDAP Unknown Completed [facility] Influenza Virus Vaccine Quad .5 mL IM 6+ MO (FLUZONE/FLULAVAL/F LUARIX) Unknown Completed [facility] SARS-COV-2 COVID-19 PFIZER VACCINE Unknown Completed [facility] Influenza Virus Vaccine Unknown Completed [facility] TDAP Unknown Completed [facility] Influenza Virus Vaccine Quad .5 mL IM 6+ MO (FLUZONE/FLULAVAL/F LUARIX) Unknown Completed [facility] SARS-COV-2 COVID-19 PFIZER VACCINE Unknown Completed [facility] Influenza Virus Vaccine Unknown Completed [facility] TDAP Unknown Completed [facility] Influenza Virus Vaccine Quad .5 mL IM 6+ MO (FLUZONE/FLULAVAL/F LUARIX) Unknown Completed [facility] SARS-COV-2 COVID-19 PFIZER VACCINE Unknown Completed [facility] Influenza Virus Vaccine Unknown Completed [facility] TDAP Unknown Completed [facility] Influenza Virus Vaccine Quad .5 mL IM 6+ MO (FLUZONE/FLULAVAL/F LUARIX) Unknown Completed [facility] Influenza Virus Vaccine Unknown Completed [facility] SARS-COV-2 COVID-19 PFIZER VACCINE Unknown Completed [facility] TDAP Unknown Completed [facility] Influenza Virus Vaccine Quad .5 mL IM 6+ MO (FLUZONE/FLULAVAL/F LUARIX) Unknown Completed [facility] SARS-COV-2 COVID-19 PFIZER VACCINE Unknown Completed [facility] Influenza Virus Vaccine Unknown Completed [facility] TDAP Unknown Completed [facility] Influenza Virus Vaccine Quad .5 mL IM 6+ MO (FLUZONE/FLULAVAL/F LUARIX) Unknown Completed [facility] Influenza Virus Vaccine Unknown Completed [facility] SARS-COV-2 COVID-19 PFIZER VACCINE Unknown Completed [facility] TDAP Unknown Completed [facility] Influenza Virus Vaccine Quad .5 mL IM 6+ MO (FLUZONE/FLULAVAL/F LUARIX) Unknown Completed [facility] SARS-COV-2 COVID-19 PFIZER VACCINE Unknown Completed [facility] Influenza Virus Vaccine Unknown Completed [facility] TDAP Unknown Completed [facility] Influenza Virus Vaccine Quad .5 mL IM 6+ MO (FLUZONE/FLULAVAL/F LUARIX) Unknown Completed [facility] SARS-COV-2 COVID-19 PFIZER VACCINE Unknown Completed [facility] Influenza Virus Vaccine Unknown Completed [facility] TDAP Unknown Completed [facility] Influenza Virus Vaccine Quad .5 mL IM 6+ MO (FLUZONE/FLULAVAL/F LUARIX) Unknown Completed [facility] SARS-COV-2 COVID-19 PFIZER VACCINE Unknown Completed [facility] Influenza Virus Vaccine Unknown Completed [facility] TDAP Unknown Completed [facility] Influenza Virus Vaccine Quad .5 mL IM 6+ MO (FLUZONE/FLULAVAL/F LUARIX) Unknown Completed [facility] SARS-COV-2 COVID-19 PFIZER VACCINE Unknown Completed [facility] Influenza Virus Vaccine Unknown Completed [facility] TDAP Unknown Completed [facility] Influenza Virus Vaccine Quad .5 mL IM 6+ MO (FLUZONE/FLULAVAL/F LUARIX) Unknown Completed [facility] SARS-COV-2 COVID-19 PFIZER VACCINE Unknown Completed [facility] Influenza Virus Vaccine Unknown Completed [facility] TDAP Unknown Completed [facility] Influenza Virus Vaccine Quad .5 mL IM 6+ MO (FLUZONE/FLULAVAL/F LUARIX) Unknown Completed [facility] SARS-COV-2 COVID-19 PFIZER VACCINE Unknown Completed [facility] Influenza Virus Vaccine Unknown Completed [facility] TDAP Unknown Completed [facility] Influenza Virus Vaccine Quad .5 mL IM 6+ MO (FLUZONE/FLULAVAL/F LUARIX) Unknown Completed [facility] SARS-COV-2 COVID-19 PFIZER VACCINE Unknown Completed [facility] Influenza Virus Vaccine Unknown Completed [facility] TDAP Unknown Completed [facility] Influenza Virus Vaccine Quad .5 mL IM 6+ MO (FLUZONE/FLULAVAL/F LUARIX) Unknown Completed [facility] SARS-COV-2 COVID-19 PFIZER VACCINE Unknown Completed [facility] Influenza Virus Vaccine Unknown Completed [facility] TDAP Unknown Completed [facility] Influenza Virus Vaccine Quad .5 mL IM 6+ MO (FLUZONE/FLULAVAL/F LUARIX) Unknown Completed [facility] SARS-COV-2 COVID-19 PFIZER VACCINE Unknown Completed [facility] Influenza Virus Vaccine Unknown Completed [facility] TDAP Unknown Completed [facility] Influenza Virus Vaccine Quad .5 mL IM 6+ MO (FLUZONE/FLULAVAL/F LUARIX) Unknown Completed [facility] SARS-COV-2 COVID-19 PFIZER VACCINE Unknown Completed [facility] Influenza Virus Vaccine Unknown Completed [facility] TDAP Unknown Completed [facility] Influenza Virus Vaccine Quad .5 mL IM 6+ MO (FLUZONE/FLULAVAL/F LUARIX) Unknown Completed [facility] SARS-COV-2 COVID-19 PFIZER VACCINE Unknown Completed [facility] Influenza Virus Vaccine Unknown Completed [facility] TDAP Unknown Completed [facility] Influenza Virus Vaccine Quad .5 mL IM 6+ MO (FLUZONE/FLULAVAL/F LUARIX) Unknown Completed [facility] SARS-COV-2 COVID-19 PFIZER VACCINE Unknown Completed [facility] Influenza Virus Vaccine Unknown Completed [facility] TDAP Unknown Completed [facility] Influenza Virus Vaccine Quad .5 mL IM 6+ MO (FLUZONE/FLULAVAL/F LUARIX) Unknown Completed [facility] SARS-COV-2 COVID-19 PFIZER VACCINE Unknown Completed [facility] Influenza Virus Vaccine Unknown Completed [facility] TDAP Unknown Completed [facility] Influenza Virus Vaccine Quad .5 mL IM 6+ MO (FLUZONE/FLULAVAL/F LUARIX) Unknown Completed [facility] SARS-COV-2 COVID-19 PFIZER VACCINE Unknown Completed [facility] Influenza Virus Vaccine Unknown Completed [facility] TDAP Unknown Completed [facility] Influenza Virus Vaccine Quad .5 mL IM 6+ MO (FLUZONE/FLULAVAL/F LUARIX) Unknown Completed [facility] SARS-COV-2 COVID-19 PFIZER VACCINE Unknown Completed [facility] Influenza Virus Vaccine Unknown Completed [facility] TDAP Unknown Completed [facility] Influenza Virus Vaccine Quad .5 mL IM 6+ MO (FLUZONE/FLULAVAL/F LUARIX) Unknown Completed [facility] SARS-COV-2 COVID-19 PFIZER VACCINE Unknown Completed [facility] Influenza Virus Vaccine Unknown Completed [facility] TDAP Unknown Completed [facility] Influenza Virus Vaccine Quad .5 mL IM 6+ MO (FLUZONE/FLULAVAL/F LUARIX) Unknown Completed [facility] SARS-COV-2 COVID-19 PFIZER VACCINE Unknown Completed [facility] Influenza Virus Vaccine Unknown Completed [facility] TDAP Unknown Completed [facility] Influenza Virus Vaccine Quad .5 mL IM 6+ MO (FLUZONE/FLULAVAL/F LUARIX) Unknown Completed [facility] SARS-COV-2 COVID-19 PFIZER VACCINE Unknown Completed [facility] Influenza Virus Vaccine Unknown Completed [facility] Vital Signs Vital Name Observation Time Observation Value Comments S ource Systolic blood pressure 2024-10-07 13:10:00 131 mm[Hg] [facility] Diastolic blood pressure 2024-10-07 13:10:00 80 mm[Hg] [facility] Heart rate 2024-10-07 13:10:00 55 /min [facility] Body temperature 2024-10-07 13:10:[address] [facility] Oxygen saturation in Arterial blood by Pulse oximetry 2024-10-07 13:10:00 98 /min [facility] Body height 2024-10-02 14:29:[address] [facility] Body weight 2024-10-02 14:29:[address] [facility] BMI 2024-10-02 14:29:00 35.11 kg/m2 [facility] Systolic blood pressure 2024-08-07 18:09:00 158 mm[Hg] [facility] Diastolic blood pressure 2024-08-07 18:09:00 96 mm[Hg] [facility] Heart rate 2024-08-07 18:09:00 73 /min [facility] Body temperature 2024-08-07 18:09:[address] [facility] Respiratory rate 2024-08-07 18:09:00 18 /min [facility] Body height 2024-08-07 18:09:[address] [facility] Body weight 2024-08-07 18:09:[address] [facility] BMI 2024-08-07 18:09:00 35.11 kg/m2 [facility] Oxygen saturation in Arterial blood by Pulse oximetry 2024-08-07 18:09:00 95 /min [facility] Systolic blood pressure 2024-07-11 22:55:00 152 mm[Hg] [facility] Diastolic blood pressure 2024-07-11 22:55:00 85 mm[Hg] [facility] Heart rate 2024-07-11 22:55:00 77 /min [facility] Body temperature 2024-07-11 22:55:[address] [facility] Respiratory rate 2024-07-11 22:55:00 16 /min [facility] Body weight 2024-07-11 22:55:[address] [facility] BMI 2024-07-11 22:55:00 35.33 kg/m2 [facility] Oxygen saturation in Arterial blood by Pulse oximetry 2024-07-11 22:55:00 97 /min [facility] Body temperature 2024-02-26 20:36:[address] [facility] Body height 2024-02-26 20:36:[address] [facility] Body weight 2024-02-26 20:36:[address] [facility] BMI 2024-02-26 20:36:00 37.81 kg/m2 [facility] Respiratory rate 2024-02-26 16:25:00 16 /min [facility] Body height 2024-02-26 16:25:[address] [facility] Body weight 2024-02-26 16:25:[address] [facility] BMI 2024-02-26 16:25:00 36.61 kg/m2 [facility] Body height 2024-02-23 16:25:[address] [facility] Systolic blood pressure 2024-01-25 14:09:00 144 mm[Hg] [facility] Diastolic blood pressure 2024-01-25 14:09:00 100 mm[Hg] [facility] Heart rate 2024-01-25 14:09:00 79 /min [facility] Body temperature 2024-01-25 14:09:[address] [facility] Body height 2024-01-25 14:09:[address] [facility] Body weight 2024-01-25 14:09:[address] [facility] BMI 2024-01-25 14:09:00 37.28 kg/m2 [facility] Oxygen saturation in Arterial blood by Pulse oximetry 2024-01-25 14:09:00 99 /min [facility] Systolic blood pressure 2024-01-10 15:25:00 140 mm[Hg] [facility] Diastolic blood pressure 2024-01-10 15:25:00 96 mm[Hg] [facility] Heart rate 2024-01-10 15:25:00 78 /min [facility] Body temperature 2024-01-10 15:24:[address] [facility] Body height 2024-01-10 15:24:[address] [facility] Body weight 2024-01-10 15:24:[address] [facility] BMI 2024-01-10 15:24:00 37.77 kg/m2 [facility] Oxygen saturation in Arterial blood by Pulse oximetry 2024-01-10 15:24:00 99 /min [facility] Systolic blood pressure 2023-03-21 21:51:00 120 mm[Hg] [facility] Diastolic blood pressure 2023-03-21 21:51:00 85 mm[Hg] [facility] Heart rate 2023-03-21 21:51:00 61 /min [facility] Respiratory rate 2023-03-21 21:51:00 18 /min [facility] Body height 2023-03-21 21:51:[address] [facility] Body weight 2023-03-21 21:51:[address] [facility] BMI 2023-03-21 21:51:00 31.47 kg/m2 [facility] Oxygen saturation in Arterial blood by Pulse oximetry 2023-03-21 21:51:00 99 /min [facility] Systolic blood pressure 2023-01-04 14:52:00 145 mm[Hg] [facility] Diastolic blood pressure 2023-01-04 14:52:00 92 mm[Hg] [facility] Heart rate 2023-01-04 14:43:00 88 /min [facility] Body temperature 2023-01-04 14:43:[address] [facility] Respiratory rate 2023-01-04 14:43:00 18 /min [facility] Body height 2023-01-04 14:43:[address] [facility] Body weight 2023-01-04 14:43:[address] [facility] BMI 2023-01-04 14:43:00 29.62 kg/m2 [facility] Systolic blood pressure 2022-12-01 19:30:41 110 mm[Hg] [facility] Diastolic blood pressure 2022-12-01 19:30:41 90 mm[Hg] [facility] Heart rate 2022-12-01 19:30:41 61 /min [facility] Body temperature 2022-12-01 19:30:[address] [facility] Respiratory rate 2022-12-01 19:30:41 17 /min [facility] Oxygen saturation in Arterial blood by Pulse oximetry 2022-12-01 19:30:41 96 /min [facility] Body height 2022-12-01 16:56:[address] [facility] Body weight 2022-12-01 16:56:[address] [facility] BMI 2022-12-01 16:56:00 29.12 kg/m2 [facility] Systolic blood pressure 2022-10-21 15:53:00 121 mm[Hg] [facility] Diastolic blood pressure 2022-10-21 15:53:00 86 mm[Hg] [facility] Heart rate 2022-10-21 15:53:00 79 /min [facility] Body height 2022-10-21 15:53:[address] [facility] Body weight 2022-10-21 15:53:[address] [facility] BMI 2022-10-21 15:53:00 30.09 kg/m2 [facility] Oxygen saturation in Arterial blood by Pulse oximetry 2022-10-21 15:53:00 97 /min [facility] Systolic blood pressure 2022-10-13 20:29:00 135 mm[Hg] pt felt unbalanced/torin ey [facility] Diastolic blood pressure 2022-10-13 20:29:00 102 mm[Hg] pt felt unbalanced/torin ey [facility] Heart rate 2022-10-13 20:29:00 116 /min [facility] Oxygen saturation in Arterial blood by Pulse oximetry 2022-10-13 20:29:00 97 /min [facility] Body temperature 2022-10-13 19:57:[address] [facility] Respiratory rate 2022-10-13 19:57:00 18 /min [facility] Body height 2022-10-13 19:57:[address] [facility] Body weight 2022-10-13 19:57:[address] [facility] BMI 2022-10-13 19:57:00 29.88 kg/m2 [facility] Systolic blood pressure 2022-10-04 21:10:00 148 mm[Hg] [facility] Diastolic blood pressure 2022-10-04 21:10:00 98 mm[Hg] [facility] Heart rate 2022-10-04 21:06:00 99 /min [facility] Body temperature 2022-10-04 21:06:[address] [facility] Respiratory rate 2022-10-04 21:06:00 18 /min [facility] Body height 2022-10-04 21:06:[address] [facility] Body weight 2022-10-04 21:06:[address] [facility] BMI 2022-10-04 21:06:00 30.29 kg/m2 [facility] Oxygen saturation in Arterial blood by Pulse oximetry 2022-10-04 21:06:00 99 /min [facility] Systolic blood pressure 2022-09-28 21:00:00 129 mm[Hg] [facility] Diastolic blood pressure 2022-09-28 21:00:00 96 mm[Hg] [facility] Heart rate 2022-09-28 21:00:00 76 /min [facility] Respiratory rate 2022-09-28 21:00:00 13 /min [facility] Oxygen saturation in Arterial blood by Pulse oximetry 2022-09-28 21:00:00 97 /min [facility] Body temperature 2022-09-28 17:45:[address] [facility] Body weight 2022-09-28 17:45:[address] [facility] BMI 2022-09-28 17:45:00 34.78 kg/m2 [facility] Systolic blood pressure 2022-06-03 20:07:00 138 mm[Hg] [facility] Diastolic blood pressure 2022-06-03 20:07:00 90 mm[Hg] [facility] Heart rate 2022-06-03 20:06:00 92 /min [facility] Respiratory rate 2022-06-03 20:06:00 18 /min [facility] Body height 2022-06-03 20:06:[address] [facility] Body weight 2022-06-03 20:06:[address] [facility] BMI 2022-06-03 20:06:00 34.78 kg/m2 [facility] Oxygen saturation in Arterial blood by Pulse oximetry 2022-06-03 20:06:00 97 /min [facility] Systolic blood pressure 2022-02-03 14:00:00 139 mm[Hg] [facility] Diastolic blood pressure 2022-02-03 14:00:00 91 mm[Hg] [facility] Heart rate 2022-02-03 14:00:00 73 /min [facility] Respiratory rate 2022-02-03 14:00:00 18 /min [facility] Oxygen saturation in Arterial blood by Pulse oximetry 2022-02-03 14:00:00 97 /min [facility] Body temperature 2022-02-03 13:18:[address] [facility] Body weight 2022-02-03 13:18:[address] [facility] BMI 2022-02-03 13:18:00 38.97 kg/m2 [facility] Systolic blood pressure 2022-01-27 21:05:00 136 mm[Hg] [facility] Diastolic blood pressure 2022-01-27 21:05:00 81 mm[Hg] [facility] Heart rate 2022-01-27 21:05:00 81 /min [facility] Respiratory rate 2022-01-27 21:05:00 18 /min [facility] Body height 2022-01-27 21:05:[address] [facility] Body weight 2022-01-27 21:05:[address] [facility] BMI 2022-01-27 21:05:00 40.57 kg/m2 [facility] Oxygen saturation in Arterial blood by Pulse oximetry 2022-01-27 21:05:00 97 /min [facility] Systolic blood pressure 2024-10-14 18:12:00 138 mm[Hg] [facility] Diastolic blood pressure 2024-10-14 18:12:00 82 mm[Hg] [facility] Heart rate 2024-10-14 18:12:00 54 /min [facility] Respiratory rate 2024-10-14 18:09:00 18 /min [facility] Body height 2024-10-14 18:09:[address] [facility] Body weight 2024-10-14 18:09:[address] [facility] BMI 2024-10-14 18:09:00 34.95 kg/m2 [facility] Systolic blood pressure 2024-10-07 13:10:00 131 mm[Hg] [facility] Diastolic blood pressure 2024-10-07 13:10:00 80 mm[Hg] [facility] Heart rate 2024-10-07 13:10:00 55 /min [facility] Body temperature 2024-10-07 13:10:[address] [facility] Oxygen saturation in Arterial blood by Pulse oximetry 2024-10-07 13:10:00 98 /min [facility] Body height 2024-10-02 14:29:[address] [facility] Body weight 2024-10-02 14:29:[address] [facility] BMI 2024-10-02 14:29:00 35.11 kg/m2 [facility] Systolic blood pressure 2024-08-07 18:09:00 158 mm[Hg] [facility] Diastolic blood pressure 2024-08-07 18:09:00 96 mm[Hg] [facility] Heart rate 2024-08-07 18:09:00 73 /min [facility] Body temperature 2024-08-07 18:09:[address] [facility] Respiratory rate 2024-08-07 18:09:00 18 /min [facility] Body height 2024-08-07 18:09:[address] [facility] Body weight 2024-08-07 18:09:[address] [facility] BMI 2024-08-07 18:09:00 35.11 kg/m2 [facility] Oxygen saturation in Arterial blood by Pulse oximetry 2024-08-07 18:09:00 95 /min [facility] Systolic blood pressure 2024-08-05 20:29:00 130 mm[Hg] [facility] Diastolic blood pressure 2024-08-05 20:29:00 96 mm[Hg] [facility] Heart rate 2024-08-05 20:29:00 81 /min [facility] Respiratory rate 2024-08-05 20:08:00 18 /min [facility] Body height 2024-08-05 20:08:[address] [facility] Body weight 2024-08-05 20:08:[address] [facility] BMI 2024-08-05 20:08:00 35.10 kg/m2 [facility] Body temperature 2024-07-11 22:55:[address] [facility] Oxygen saturation in Arterial blood by Pulse oximetry 2024-07-11 22:55:00 97 /min [facility] Systolic blood pressure 2024-06-03 19:30:00 161 mm[Hg] [facility] Diastolic blood pressure 2024-06-03 19:30:00 98 mm[Hg] [facility] Heart rate 2024-06-03 19:30:00 61 /min [facility] Respiratory rate 2024-06-03 19:23:00 18 /min [facility] Body height 2024-06-03 19:23:[address] [facility] Body weight 2024-06-03 19:23:[address] [facility] BMI 2024-06-03 19:23:00 35.93 kg/m2 [facility] Systolic blood pressure 2024-03-04 20:32:00 153 mm[Hg] [facility] Diastolic blood pressure 2024-03-04 20:32:00 105 mm[Hg] [facility] Heart rate 2024-03-04 20:32:00 62 /min [facility] Respiratory rate 2024-03-04 20:29:00 18 /min [facility] Body height 2024-03-04 20:29:[address] [facility] Body weight 2024-03-04 20:29:[address] [facility] BMI 2024-03-04 20:29:00 37.28 kg/m2 [facility] Body temperature 2024-02-26 20:36:[address] [facility] Body height 2024-02-26 20:36:[address] [facility] Body weight 2024-02-26 20:36:[address] [facility] BMI 2024-02-26 20:36:00 37.81 kg/m2 [facility] Respiratory rate 2024-02-26 16:25:00 16 /min [facility] Systolic blood pressure 2024-01-25 14:09:00 144 mm[Hg] [facility] Diastolic blood pressure 2024-01-25 14:09:00 100 mm[Hg] [facility] Heart rate 2024-01-25 14:09:00 79 /min [facility] Oxygen saturation in Arterial blood by Pulse oximetry 2024-01-25 14:09:00 99 /min [facility] Procedures Procedure Date / Time Performed Performing Clinician Source DME/SUPPLY JUSTIFICATION 2024-10-10 21:28:23 Doc tor Unassigned, [place] [facility] GARDASIL 9 (HPV 9V) VACCINE 2024-10-07 13:02:[address] [facility] GARDASIL 9 (HPV 9V) VACCINE 2024-10-07 13:02:[address] [facility] GARDASIL 9 (HPV 9V) VACCINE 2024-08-07 18:45:[address] [facility] GARDASIL 9 (HPV 9V) VACCINE 2024-08-07 18:45:[address] [facility] PNEUMOCOCCAL 20 CONJUGATE (PREVNAR 20) VACCINE 2024-08-07 18:29:[address] [facility] PNEUMOCOCCAL 20 CONJUGATE (PREVNAR 20) VACCINE 2024-08-07 18:29:[address] [facility] CT SOFT TISSUE NECK W CONTRAST 2024-03-04 15:59:[address] [facility] CT SOFT TISSUE NECK W CONTRAST 2024-03-04 15:59:[address] [facility] US PELVIS COMPLETE WITH TRANSVAGINAL 2024-03-04 15:42:[address] [facility] US PELVIS COMPLETE WITH TRANSVAGINAL 2024-03-04 15:42:[address] [facility] COMP. METABOLIC PANEL (57822) 2024-02-23 16:58:00 Lui Post [facility] CBC WITH DIFF 2024-02-23 16:58:[address] [facility] HEPATITIS B SURFACE ANTIBODY 2024-02-23 16:58:[address] [facility] HEPATITIS B SURFACE ANTIGEN 2024-02-23 16:58:[address] [facility] HCV ANTIBODY 2024-02-23 16:58:00 Lui Patel [facility] HBC ANTIBODY (IGM & IGG) 2024-02-23 16:58:00 Lui Das [facility] HIV 1/2 AG-AB WITH REFLEX 2024-02-23 16:58:00 Pi Lui Walker [facility] HCV ANTIBODY 2024-02-23 16:58:00 Lui Post [facility] HIV 1/2 AG-AB WITH REFLEX 2024-02-23 16:58:[address] [facility] QUANTIFERON-TB ASSAY 2024-02-23 16:58:00 [facility] SURFACE ANTIGEN 2024-02-23 16:58:00 [facility] SURFACE ANTIBODY 2024-02-23 16:58:[address] [facility] HBC ANTIBODY (IGM & IGG) 2024-02-23 16:58:00 [facility] COMP. METABOLIC PANEL ([id number]) 2024-02-23 16:58:00 Lui Post [facility] CBC WITH DIFF 2024-02-23 16:58:00 [facility] MR LUMBAR SPINE WO CONTRAST 2024-02-18 23:14:02 Javan [facility] CT MAXILLOFACIAL/MANDIBLE WO CONTRAST 2024-02-12 22:18:00 Javan [facility] CT MAXILLOFACIAL/MANDIBLE WO CONTRAST 2024-02-12 22:18:00 Javan [facility] GLYCOSYLATED HEMOGLOBIN (A1C) 2024-02-01 14:58:00 Javan [facility] LIPID PANEL (74461)(TOTAL CHOLESTEROL, TRIGLYCERIDES, HDL) 2024-02-01 14:58:00 Javan [facility] CBC WITH DIFF 2024-02-01 14:58:00 Miya Edouard [facility] FREE T4 2024-02-01 14:58:00 [place], [facility] FREE T3 2024-02-01 14:58:00 Javan [facility] THYROID STIMULATING HORMONE 2024-02-01 14:58:00 Javan [facility] COMP. METABOLIC PANEL (40176) 2024-02-01 14:58:00 Javan [facility] SEDIMENTATION RATE 2024-02-01 14:58:[address] [facility] C-REACTIVE PROTEIN 2024-02-01 14:58:[address] [facility] GC & CHLAMYDIA AMPLIFIED ASSAY 2024-01-25 15:23:00 Javan [facility] VITAMIN D, 25-OH 2024-01-25 15:16:00 Javan [facility] VITAMIN D, 25-OH 2024-01-25 15:16:00 Javan [facility] EBV-MONONUCLEOSIS SCREEN 2024-01-25 15:16:00 Javan [facility] HIV 1/2 AG-AB WITH REFLEX 2024-01-25 15:16:00 Dane fletcher [facility] SYPHILIS IGG/IGM 2024-01-25 15:16:00 Javan [facility] ALLERGENS, PEANUT PANEL 2024-01-25 15:16:00 Javan [facility] URINALYSIS 2024-01-10 16:44:00 Olamide Simpson [facility] URINALYSIS 2024-01-10 16:44:00 Olamide Simpson [facility] C-REACTIVE PROTEIN 2024-01-10 16:13:[address] [facility] COMP. METABOLIC PANEL (53903) 2024-01-10 16:13:[address] [facility] CBC WITH DIFF 2024-01-10 16:13:00 Olamide Simpson [facility] ANTI-CENTROMERE B 2024-01-10 16:13:[address] [facility] ANTI-SSA(RO) 2024-01-10 16:13:00 Olamide Simpson [facility] CBC WITH DIFF 2024-01-10 16:13:00 Olamide Simpson [facility] COMP. METABOLIC PANEL ([id number]) 2024-01-10 16:13:[address] [facility] THYROID PEROXIDASE (TPO) AB 2024-01-10 16:13:[address] [facility] ANTI-SSB(LA) 2024-01-10 16:13:00 Olamide Simpson [facility] ANTI-CENTROMERE B 2024-01-10 16:13:[address] [facility] C-REACTIVE PROTEIN 2024-01-10 16:13:[address] [facility] FREE T4 2023-04-05 17:14:00 Jak [facility] THYROID STIMULATING HORMONE 2023-04-05 17:14:00 Jak [facility] FREE T3 2023-04-05 17:14:00 Jak [facility] US HEAD NECK 2023-04-05 17:09:55 Jak [facility] ASSIGNMENT OF BENEFITS 2023-03-21 21:09:01 Docto r Unassigned, [place] [facility] EXTERNAL PROVIDER RECORDS 2023-01-05 05:01:00 Do ctor Unassigned, [place] [facility] C-REACTIVE PROTEIN 2023-01-04 15:47:[address] [facility] THYROID STIMULATING HORMONE 2023-01-04 15:47:[address] [facility] BASIC METABOLIC PANEL (NA, K, CL, CO2, GLUCOSE, BUN, CREATININE, CA) 2023-01-04 15:47:[address] [facility] SEDIMENTATION RATE 2023-01-04 15:47:[address] [facility] GLYCOSYLATED HEMOGLOBIN (A1C) 2023-01-04 15:47:[address] [facility] ANTI-NUCLEAR ANTIBODY SCREEN 2023-01-04 15:47:[address] [facility] URINE CULTURE 2023-01-04 15:47:00 Miya Edouard [facility] ANTI-DOUBLE STRANDED DNA 2023-01-04 15:47:[address] [facility] FREE T3 2023-01-04 15:47:00 Miya Edouard [facility] INSURANCE CORRESPONDENCE 2022-12-22 05:01:00 Doc tor Unassigned, [place] [facility] URINALYSIS 2022-12-01 18:38:00 Jey Perez [facility] XR CHEST 1 VW 2022-12-01 17:41:17 Jey Perez [facility] LIPASE 2022-12-01 17:15:00 Jey Perez [facility] TROPONIN I 2022-12-01 17:15:00 Jey Perez [facility] COMP. METABOLIC PANEL ([id number]) 2022-12-01 17:15:[address] [facility] CBC WITH DIFF 2022-12-01 17:15:00 Jey Perez [facility] COVID-19 (ID NOW RAPID TESTING) 2022-12-01 17:15:[address] [facility] MEDICATION CORRESPONDENCE 2022-11-22 05:01:00 Do ctor Unassigned, [place] [facility] MR LUMBAR SPINE W WO CONTRAST 2022-10-12 21:23:[address] [facility] POCT TEST 2022-09-28 19:44:[address] [facility] CT STROKE ANGIOGRAM HEAD 2022-09-28 19:30:00 Schoenste in [facility] CT STROKE ANGIOGRAM NECK 2022-09-28 19:30:00 Schoenste in, [facility] CT STROKE HEAD WO CONTRAST 2022-09-28 19:14:05 Obed [facility] TROPONIN I 2022-09-28 18:53:00 [facility] METABOLIC PAN[facility] ([id number]) 2022-09-28 18:53:[address] [facility] CBC WITH DIFF 2022-09-28 18:53:00 Juliane Jolly U [facility] PROTHROMBIN TIME / INR 2022-09-28 18:53:[address] [facility] ACTIVATED PARTIAL THRMPLAS MARK 2022-09-28 18:53:[address] [facility] URINALYSIS 2022-09-28 18:53:00 Juliane Jolly [facility] N-TERMINAL PRO-BNP 2022-09-28 18:53:[address] [facility] LACTIC ACID WHOLE BLOOD 2022-09-28 18:53:[address] [facility] MR CERVICAL SPINE WO CONTRAST 2022-08-25 21:43:32 Requisition, Paper [facility] CONSENT/REFUSAL FOR DIAGNOSIS AND TREATMENT 2022-08-25 21:06:28 Doctor Unassigned, [place] [facility] ASSIGNMENT OF BENEFITS 2022-08-25 21:06:18 Docto r Unassigned, [place] [facility] MR LUMBAR SPINE WO CONTRAST 2022-06-07 22:54:45 Requisition, Paper [facility] XR LUMBAR SPINE 4 VW 2022-06-07 21:58:44 Requisition, Paper [facility] COMP. METABOLIC PANEL ([id number]) 2022-02-03 13:37:[address] [facility] CBC WITH DIFF 2022-02-03 13:37:00 Carolina Maurice U [facility] CONSENT/REFUSAL FOR DIAGNOSIS AND TREATMENT 2022-02-03 13:08:09 Doctor Unassigned, [place] [facility] COLONOSCOPY (ENDO) 2021-04-02 14:57:[address] [facility] BI SCREENING TOMOSYNTHESIS BILATERAL 2021-02-10 16:00:00 [place], Peter [facility] HIGH RISK HPV-THIN PREP 2021-02-09 20:57:00 Adum, Violet Boothe [facility] LAB ONLY PAP SMEAR-LIQUID BASED 2021-02-09 20:57:00 Adum, Nika Boothe [facility] Encounters Start Date/Time End Date/Time Encounter Type Admission Type Attending [facility] Care Facility Care Department Encounter ID Source 2021-03-04 15:44:30 Outpatient [facility] DEB [id number] [facility] 2021-02-12 17:53:46 Emergency [facility] [id number] [facility] 2024-12-18 09:45:00 2024-12-18 09:45:00 Outpatient NIKI GARCIA [facility] [id number] [facility] 2024-12-09 00:00:00 2024-12-09 10:10:30 Refill Perla Upton [facility] .840.114 350.1.13.10 4.2.7.2.686 [id number] [facility] 2024-11-06 00:00:00 2024-12-07 18:23:02 Patient Secure Msg Doctor Unassigned, [place] Doctor Unassigned, [place] [facility] 1.84.114 350.1.13.10 4.2.7.2.686 [id number] [facility] 2024-12-06 00:00:00 2024-12-06 10:03:53 Refill Miya Edouard [facility] .840.114 350.1.13.10 4.2.7.2.686 [id number] [facility] 2024-11-12 00:00:00 2024-11-14 08:58:49 Telephone Miya Edouard [facility] 1.84.114 350.1.13.10 4.2.7.2.686 [id number] [facility] 2024-11-13 00:00:00 2024-11-13 08:12:55 Telephone Miya Ed[facility]ard [facility] 1.2.840.114 350.1.13.10 4.2.7.2.686 [id number] [facility] 2024-11-12 00:00:00 2024-11-12 21:59:26 Refill Miya Edouard 1.2.840.1 41461.1.1 3.104.2.7 .3.466736 .8 [id number] [facility] 2024-11-12 00:00:00 2024-11-12 21:59:01 Refill Miya Edouard 1.2.840.1 13559.1.1 3.104.2.7 .3.690506 .8 [id number] [facility] 2024-11-12 00:00:00 2024-11-12 13:16:29 Refill Alyce Garza 1.2.840.1 02799.1.1 3.104.2.7 .3.977300 .8 [id number] [facility] 2024-11-09 00:00:00 2024-11-12 08:16:29 Refill Noni Garcia 1.2.840.1 44387.1.1 3.104.2.7 .3.168392 .8 [id number] [facility] 2024-10-07 00:00:00 2024-11-09 18:22:17 Patient Secure Msg Doctor Unassigned, [place] 1.2.840.1 36138.1.1 3.104.2.7 .3.231193 .8 [id number] [facility] 2024-11-06 00:00:00 2024-11-06 16:55:03 Specialty Pharmacy Federico Richter 1.2.840.1 09567.1.1 3.104.2.7 .3.302202 .8 [id number] [facility] 2024-11-06 14:00:00 2024-11-06 14:00:00 Outpatient R MIYA EDOUARD [facility] [id number] [facility] 2024-11-05 00:00:00 2024-11-05 08:59:02 Telephone Miya Edouard 1.2.840.1 91241.1.1 3.104.2.7 .3.658745 .8 [id number] [facility] 2024-09-27 00:00:00 2024-11-02 18:33:27 Patient Secure Msg Doctor Unassigned, [place] 1.2.840.1 03619.1.1 3.104.2.7 .3.553278 .8 [id number] [facility] 2024-10-30 00:00:00 2024-10-31 09:33:05 Telephone Miya Edouard 1.2.840.1 26225.1.1 3.104.2.7 .3.916678 .8 [id number] [facility] 2024-10-29 00:00:00 2024-10-29 11:18:11 Specialty Pharmacy Federico Richter 1.2.840.1 30295.1.1 3.104.2.7 .3.060619 .8 [id number] [facility] 2024-10-28 00:00:00 2024-10-28 13:24:17 Specialty Pharmacy Anna Rodriges 1.2.840.1 07760.1.1 3.104.2.7 .3.027491 .8 [id number] [facility] 2024-09-23 00:00:00 2024-10-26 18:40:33 Patient Secure Msg Miya Edouard 1.2.840.1 72010.1.1 3.104.2.7 .3.379560 .8 [id number] [facility] 2024-10-22 00:00:00 2024-10-26 16:11:39 Telephone Miya Edouard 1.2.840.1 91446.1.1 3.104.2.7 .3.129672 .8 [id number] [facility] 2024-10-14 13:45:00 2024-10-14 14:28:09 Outpatient R CHERELLE GARBER [facility] [id number] [facility] 2024-10-14 00:00:00 2024-10-14 00:00:00 Travel 1.2.840.1 86011.1.1 3.104.2.7 .3.805414 .8 1.2.840.114 350.1.13.10 4.2.7.3.698 084.8 [id number] [facility] 2024-10-08 00:00:00 2024-10-08 10:29:29 Specialty Pharmacy Laura Jerry 1.2.840.1 75611.1.1 3.104.2.7 .3.312945 .8 [id number] [facility] 2024-10-08 00:00:00 2024-10-08 00:00:00 Travel 1.2.840.1 04336.1.1 3.104.2.7 .3.149431 .8 1.2.840.114 350.1.13.10 4.2.7.3.698 [id number] [facility] 2024-10-07 09:00:00 2024-10-07 09:00:00 Outpatient R [facility] [id number] [facility] 2024-10-07 09:00:00 2024-10-07 09:00:00 Nurse Visit R Miya Edouard Nurse, [facility] 1.2.840.1 28895.1.1 3.104.2.7 .3.807372 .8 [id number] [facility] 2024-10-07 00:00:00 2024-10-07 00:00:00 Travel 1.2.840.1 22739.1.1 3.104.2.7 .3.566946 .8 1.2.840.114 350.1.13.10 4.2.7.3.698 084.8 [id number] [facility] 2024-10-02 10:00:00 2024-10-02 11:27:52 Ancillary Visit Malik Pryor Myra L 1.2.840.1 09389.1.1 3.104.2.7 .3.451828 .8 [id number] [facility] 2024-10-02 10:00:00 2024-10-02 10:00:00 Outpatient MALIK PRYOR CRAIG [facility] [id number] [facility] 2024-10-02 00:00:00 2024-10-02 00:00:00 Travel 1.2.840.1 37328.1.1 3.104.2.7 .3.246049 .8 1.2.840.114 350.1.13.10 4.2.7.3.698 084.8 [id number] [facility] 2024-09-27 00:00:00 2024-09-27 11:08:56 Telephone Sabrina Roa 1.2.840.1 57798.1.1 3.104.2.7 .3.641415 .8 [id number] [facility] 2024-09-24 00:00:00 2024-09-24 15:06:31 Letter (Out) 1.2.840.1 28768.1.1 3.104.2.7 .3.418800 .8 [id number] [facility] 2024-09-23 00:00:00 2024-09-23 13:28:52 Patient Secure Msg Colemannatalya Miya 1.2.840.1 10195.1.1 3.104.2.7 .3.193206 .8 [id number] [facility] 2024-09-17 00:00:00 2024-09-18 09:28:49 Telephone JavanMiya 1.2.840.1 36273.1.1 3.104.2.7 .3.795338 .8 [id number] [facility] 2024-09-17 00:00:00 2024-09-17 15:08:21 Refill Alyce Garza 1.2.840.1 13244.1.1 3.104.2.7 .3.851442 .8 [id number] [facility] 2024-09-14 00:00:00 2024-09-17 14:32:21 Refill Miya Edouard 1.2.840.1 71057.1.1 3.104.2.7 .3.098177 .8 [id number] [facility] 2024-09-17 00:00:00 2024-09-17 11:14:38 Specialty Pharmacy Shaneka Armas 1.2.840.1 53910.1.1 3.104.2.7 .3.730347 .8 [id number] [facility] 2024-09-17 00:00:00 2024-09-17 10:22:12 Specialty Pharmacy Federico Richter 1.2.840.1 91197.1.1 3.104.2.7 .3.974037 .8 [id number] [facility] 2024-08-07 00:00:00 2024-09-07 18:14:24 Patient Secure Msg Doctor Unassigned, [place] 1.2.840.1 42942.1.1 3.104.2.7 .3.628795 .8 [id number] [facility] 2024-09-06 13:45:00 2024-09-06 14:23:51 Ancillary Visit Malik Pryor Nigel Zapien 1.2.840.1 13977.1.1 3.104.2.7 .3.095049 .8 [id number] [facility] 2024-09-06 00:00:00 2024-09-06 00:00:00 Travel 1.2.840.1 57902.1.1 3.104.2.7 .3.707382 .8 1.2.840.114 350.1.13.10 4.2.7.3.698 084.8 [id number] [facility] 2024-08-19 13:45:00 2024-08-19 13:45:00 Outpatient MALIK PRYOR [facility] [id number] [facility] 2024-08-19 13:45:00 2024-08-19 13:45:00 Outpatient MALIK PRYOR [facility] [id number] [facility] 2024-08-18 00:00:00 2024-08-18 00:00:00 Miya Fisher 1.2.840.1 09453.1.1 3.104.2.7 .3.125919 .8 [id number] [facility] 2024-08-14 08:45:00 2024-08-14 08:45:00 Outpatient NIKI GARCIA [facility] [id number] [facility] 2024-08-12 00:00:00 2024-08-12 11:38:55 Specialty Pharmacy Federico Richter 1.2.840.1 57635.1.1 3.104.2.7 .3.069011 .8 [id number] [facility] [facility] 2024-08-07 00:00:00 2024-08-07 16:23:13 Telephone Miya Edouard 1.2.840.1 94985.1.1 3.104.2.7 .3.524200 .8 [id number] [facility] 2024-08-07 13:00:00 2024-08-07 13:58:11 Outpatient R MIYA EDOUARD [facility] [id number] [facility] 2024-08-07 13:00:00 2024-08-07 13:58:11 Office Visit Miya Edouard 1.2.840.1 50674.1.1 3.104.2.7 .3.567248 .8 [id number] [facility] 2024-08-07 00:00:00 2024-08-07 00:00:00 Travel 1.2.840.1 31740.1.1 3.104.2.7 .3.105700 .8 1.2.840.114 350.1.13.10 4.2.7.3.698 084.8 [id number] [facility] 2024-08-05 16:00:00 2024-08-05 16:48:29 Outpatient R CHERELLE GARBER [facility] [id number] [facility] 2024-08-05 00:00:00 2024-08-05 00:00:00 Travel 1.2.840.1 13616.1.1 3.104.2.7 .3.811450 .8 1.2.840.114 350.1.13.10 4.2.7.3.698 084.8 [id number] [facility] 2024-07-02 00:00:00 2024-08-03 18:18:10 Patient Secure Msg Doctor Unassigned, [place] 1.2.840.1 63156.1.1 3.104.2.7 .3.709178 .8 [id number] [facility] 2024-07-23 13:40:00 2024-07-23 13:40:00 Outpatient R MIYA EDOUARD [facility] [id number] [facility] 2024-07-15 00:00:00 2024-07-16 10:48:14 Noni Ying 1.2.840.1 53113.1.1 3.104.2.7 .3.029183 .8 [id number] [facility] 2024-07-11 18:00:00 2024-07-11 18:26:39 Urgent Care Unknown, Attending Dev Pelaez 1.2.840.1 27790.1.1 3.104.2.7 .3.670947 .8 [id number] [facility] 2024-07-11 18:00:00 2024-07-11 18:00:00 Outpatient DEV PHILLIPS [facility] [id number] [facility] 2024-07-11 00:00:00 2024-07-11 00:00:00 Travel 1.2.840.1 93927.1.1 3.104.2.7 .3.423371 .8 1.2.840.114 350.1.13.10 4.2.7.3.698 084.8 [id number] [facility] 2024-07-05 00:00:00 2024-07-05 09:38:59 Specialty Pharmacy Kena Agosto 1.2.840.1 29548.1.1 3.104.2.7 .3.026276 .8 [id number] [facility] 2024-06-21 00:00:00 2024-06-24 09:32:57 Telephone Miya Edouard 1.2.840.1 18018.1.1 3.104.2.7 .3.415308 .8 [id number] [facility] 2024-05-15 00:00:00 2024-06-15 18:14:24 Patient Secure Msg Doctor Unassigned, [place] 1.2.840.1 16479.1.1 3.104.2.7 .3.496472 .8 [id number] [facility] 2024-06-10 00:00:00 2024-06-10 11:47:40 Specialty Pharmacy Akiko Villagomez 1.2.840.1 10509.1.1 3.104.2.7 .3.288769 .8 [id number] [facility] 2024-06-03 13:45:00 2024-06-03 14:11:48 Outpatient R CHERELLE GARBER [facility] [id number] [facility] 2024-06-03 00:00:00 2024-06-03 00:00:00 Travel 1.2.840.1 70814.1.1 3.104.2.7 .3.135101 .8 1.2.840.114 350.1.13.10 4.2.7.3.698 084.8 [id number] [facility] 2024-05-28 13:00:00 2024-05-28 13:00:00 Outpatient MIYA SANTANA [facility] [id number] [facility] 2024-05-22 00:00:00 2024-05-22 00:00:00 Miya Fisher 1.2.840.1 72595.1.1 3.104.2.7 .3.530532 .8 [id number] [facility] 2024-05-19 00:00:00 2024-05-20 14:08:08 Miya Fisher 1.2.840.1 14641.1.1 3.104.2.7 .3.736880 .8 [id number] [facility] 2024-05-09 00:00:00 2024-05-09 09:05:05 Telephone Miya Edouard 1.2.840.1 71512.1.1 3.104.2.7 .3.708637 .8 [id number] [facility] 2024-05-08 14:00:00 2024-05-08 14:00:00 Outpatient SARAH BETH AREVALO [facility] [id number] [facility] 2024-05-05 00:00:00 2024-05-05 10:50:39 RefAlyce Abdullahi 1.2.840.1 43488.1.1 3.104.2.7 .3.860342 .8 [id number] [facility] 2024-04-26 11:40:00 2024-04-26 11:40:00 Outpatient MIYA SANTANA [facility] [id number] [facility] 2024-04-24 10:00:00 2024-04-24 10:00:00 Outpatient SARAH BETH AREVALO [facility] [id number] [facility] 2024-04-22 00:00:00 2024-04-22 15:51:54 Telephone Marybeth Jiménez 1.2.840.1 43394.1.1 3.104.2.7 .3.900971 .8 [id number] [facility] 2024-03-01 00:00:00 2024-04-06 18:19:56 Patient Secure Miya Garrison 1.2.840.1 37459.1.1 3.104.2.7 .3.474428 .8 [id number] [facility] 2024-03-01 00:00:00 2024-04-06 18:19:36 Patient Secure Miya Berumen 1.2.840.1 40607.1.1 3.104.2.7 .3.518585 .8 [id number] [facility] 2024-04-03 09:40:00 2024-04-03 09:40:00 Outpatient SARAH BEHT AREVALO [facility] [id number] [facility] 2024-04-01 14:30:00 2024-04-01 14:30:00 Outpatient R JCARLOSNABILAPATRICIA [facility] [id number] [facility] 2024-03-29 00:00:00 2024-03-29 00:00:00 Travel 1.2.840.1 37934.1.1 3.104.2.7 .3.241255 .8 1.2.840.114 350.1.13.10 4.2.7.3.698 084.8 [id number] [facility] 2024-03-20 09:20:00 2024-03-20 09:20:[address] [facility] [id number] [facility] 2024-03-12 09:30:00 2024-03-12 09:30:00 Outpatient R MALIK WHITE CRAIG [facility] [id number] [facility] 2024-03-12 08:15:00 2024-03-12 08:15:00 Outpatient R MARTHA DALAL MARISOL [facility] [id number] [facility] 2024-03-06 10:20:00 2024-03-06 10:20:00 Outpatient R SARAH BETH YOUNG [facility] [id number] [facility] 2024-03-04 00:00:00 2024-03-05 11:30:52 Telephone Marybeth Jiménez 1.2.840.1 40385.1.1 3.104.2.7 .3.889785 .8 [id number] [facility] 2024-03-04 08:40:36 2024-03-04 23:59:00 Outpatient R MARYBETH JIMÉNEZ LUPITA [facility] [id number] [facility] 2024-03-04 08:40:36 2024-03-04 23:59:00 Hospital Encounter Marybeth Jiménez 1.2.840.1 48786.1.1 3.104.2.7 .3.288423 .8 [id number] [facility] 2024-03-04 00:00:00 2024-03-04 11:39:44 Specialty Pharmacy Carina Taylor 1.2.840.1 53454.1.1 3.104.2.7 .3.760209 .8 [id number] [facility] 2024-03-04 08:39:37 2024-03-04 08:39:37 Hospital Encounter Miya Edouard 1.2.840.1 44669.1.1 3.104.2.7 .3.244104 .8 [id number] [facility] 2024-03-04 00:00:00 2024-03-04 00:00:00 Travel 1.2.840.1 92626.1.1 3.104.2.7 .3.434166 .8 1.2.840.114 350.1.13.10 4.2.7.3.698 084.8 [id number] [facility] 2024-03-02 15:55:42 2024-03-02 23:59:00 Outpatient R MIYA EDOUARD [facility] [id number] [facility] 2024-01-30 00:00:00 2024-03-02 18:20:06 Patient Secure Msg Miya Edouard 1.2.840.1 64355.1.1 3.104.2.7 .3.564709 .8 [id number] [facility] 2024-03-01 00:00:00 2024-03-01 12:57:59 Specialty Pharmacy Jeni Serna 1.2.840.1 34336.1.1 3.104.2.7 .3.113690 .8 [id number] [facility] 2024-02-29 00:00:00 2024-02-29 11:19:17 Telephone Jeni Serna 1.2.840.1 80462.1.1 3.104.2.7 .3.967711 .8 [id number] [facility] 2024-02-27 00:00:00 2024-02-27 16:56:29 Telephone Martha Dalal 1.2.840.1 46142.1.1 3.104.2.7 .3.496816 .8 [id number] [facility] 2024-02-26 15:00:00 2024-02-26 15:54:20 Office Visit TinoMargaretMarybeth 1.2.840.1 28722.1.1 3.104.2.7 .3.434086 .8 [id number] [facility] 2024-02-26 10:00:00 2024-02-26 11:09:16 Outpatient R LOKI HAYES [facility] [id number] [facility] 2024-02-26 10:00:00 2024-02-26 11:09:16 Office Visit Loki Hayes 1.2.840.1 28367.1.1 3.104.2.7 .3.671380 .8 [id number] [facility] 2024-02-26 00:00:00 2024-02-26 00:00:00 Travel 1.2.840.1 34959.1.1 3.104.2.7 .3.422260 .8 1.2.840.114 350.1.13.10 4.2.7.3.698 084.8 [id number] [facility] 2024-02-23 11:00:00 2024-02-23 11:15:00 County Manager Visit Clare Hernández Janice May Only [facility] Test 1.2.840.1 02600.1.1 3.104.2.7 .3.364486 .8 [id number] [facility] 2024-02-23 10:15:00 2024-02-23 10:46:31 Outpatient R FABIENNE JENNIE [facility] [id number] [facility] 2024-02-23 10:15:00 2024-02-23 10:46:31 Office Visit Clare Hernández Janice May Pinto Cuberos Lui Blanc 1.2.840.1 18026.1.1 3.104.2.7 .3.077046 .8 [id number] [facility] 2024-02-23 00:00:00 2024-02-23 00:00:00 Travel 1.2.840.1 30617.1.1 3.104.2.7 .3.319896 .8 1.2.840.114 350.1.13.10 4.2.7.3.698 084.8 [id number] [facility] 2024-02-22 00:00:00 2024-02-22 10:23:28 Patient Secure Msg Miya Edouard 1.2.840.1 14558.1.1 3.104.2.7 .3.737872 .8 [id number] [facility] 2024-02-20 00:00:00 2024-02-22 08:15:19 Patient Secure Msg Miya Edouard 1.2.840.1 71915.1.1 3.104.2.7 .3.976199 .8 [id number] [facility] 2024-02-21 00:00:00 2024-02-21 15:04:37 RefMiya Delgado 1.2.840.1 58720.1.1 3.104.2.7 .3.395117 .8 [id number] [facility] 2024-02-21 00:00:00 2024-02-21 15:00:03 Patient Secure Msg Miya Edouard 1.2.840.1 29754.1.1 3.104.2.7 .3.769177 .8 [id number] [facility] 2024-02-21 00:00:00 2024-02-21 00:00:00 Refill ColemanbrennanMiya gonzales 1.2.840.1 70827.1.1 3.104.2.7 .3.789331 .8 [id number] [facility] 2024-02-13 00:00:00 2024-02-19 10:14:37 Patient Secure Msg Miya Edouard 1.2.840.1 46288.1.1 3.104.2.7 .3.783284 .8 [id number] [facility] 2024-02-18 15:34:29 2024-02-18 23:59:00 Hospital Encounter NabilaalizebrennanMiya gonzales 1.2.840.1 49098.1.1 3.104.2.7 .3.600664 .8 [id number] [facility] 2024-02-18 16:00:00 2024-02-18 16:00:00 Outpatient R JAVAN MIYA [facility] [id number] [facility] 2024-02-14 00:00:00 2024-02-14 16:47:35 Telephone Sue Childs 1.2.840.1 43116.1.1 3.104.2.7 .3.818570 .8 [id number] [facility] 2024-02-12 16:33:32 2024-02-12 23:59:00 Outpatient R JAVANMIYA [facility] [id number] [facility] 2024-02-12 16:20:00 2024-02-12 23:59:00 Hospital Encounter Miya Edouard 1.2.840.1 11320.1.1 3.104.2.7 .3.109998 .8 [id number] [facility] 2024-02-09 00:00:00 2024-02-12 09:13:26 Telephone [place], Peter 1.2.840.1 90201.1.1 3.104.2.7 .3.565812 .8 [id number] [facility] 2024-02-01 00:00:00 2024-02-06 09:43:57 Telephone Olamide Simpson 1.2.840.1 20026.1.1 3.104.2.7 .3.702357 .8 [id number] [facility] 2024-02-06 00:00:00 2024-02-06 00:00:00 Outpatient R MIYA EDOUARD [facility] [id number] [facility] 2024-01-31 00:00:00 2024-02-05 08:14:36 Patient Secure Msg Doctor Unassigned, [place] 1.2.840.1 06267.1.1 3.104.2.7 .3.180733 .8 [id number] [facility] 2024-01-30 00:00:00 2024-02-05 08:14:10 Patient Secure Msg Miya Edouard 1.2.840.1 22001.1.1 3.104.2.7 .3.716161 .8 [id number] [facility] 2024-02-05 00:00:00 2024-02-05 00:00:00 Outpatient R MIYA EDOUARD [facility] [id number] [facility] 2024-02-01 10:00:00 2024-02-01 10:26:05 County Manager Visit Miya Edouard 2, Adc Lab 1.2.840.1 15378.1.1 3.104.2.7 .3.903698 .8 [id number] [facility] 2024-02-01 10:00:00 2024-02-01 10:00:00 Outpatient R MIYA EDOUARD [facility] [id number] [facility] 2024-01-30 00:00:00 2024-01-31 09:41:11 Telephone SimpsonOlamide 1.2.840.1 31031.1.1 3.104.2.7 .3.961279 .8 [id number] [facility] 2024-01-31 00:00:00 2024-01-31 00:00:00 Outpatient R MIYA EDOUARD [facility] [id number] [facility] 2024-01-30 00:00:00 2024-01-30 16:37:26 Refill Miya Edouard 1.2.840.1 92603.1.1 3.104.2.7 .3.732722 .8 [id number] [facility] 2024-01-30 00:00:00 2024-01-30 16:37:21 Refill Miya Edouard 1.2.840.1 41429.1.1 3.104.2.7 .3.226391 .8 [id number] [facility] 2024-01-30 00:00:00 2024-01-30 16:24:38 Telephone Miya Edouard 1.2.840.1 52660.1.1 3.104.2.7 .3.674521 .8 [id number] [facility] 2024-01-30 00:00:00 2024-01-30 11:33:55 Patient Secure Msg Miya Edouard 1.2.840.1 59921.1.1 3.104.2.7 .3.122599 .8 [id number] [facility] 2024-01-30 00:00:00 2024-01-30 11:06:55 Letter (Out) 1.2.840.1 81615.1.1 3.104.2.7 .3.831855 .8 [id number] [facility] 2024-01-26 00:00:00 2024-01-29 12:20:33 Telephone Javan Miya 1.2.840.1 56645.1.1 3.104.2.7 .3.941018 .8 [id number] [facility] 2024-01-29 00:00:00 2024-01-29 00:00:00 Outpatient R JAVAN MIYA [facility] [id number] [facility] 2024-01-25 10:30:00 2024-01-25 10:56:52 County Manager Visit Miya Edouard 2, Adc Lab 1.2.840.1 61606.1.1 3.104.2.7 .3.474883 .8 [id number] [facility] 2024-01-25 09:00:00 2024-01-25 10:00:58 Outpatient R JAVAN MIYA [facility] [id number] [facility] 2024-01-25 09:00:00 2024-01-25 10:00:58 Office Visit Miya Edouard 1.2.840.1 32731.1.1 3.104.2.7 .3.043174 .8 [id number] [facility] 2024-01-25 00:00:00 2024-01-25 00:00:00 Travel 1.2.840.1 58928.1.1 3.104.2.7 .3.117483 .8 1.2.840.114 350.1.13.10 4.2.7.3.698 084.8 [id number] [facility] 2024-01-11 00:00:00 2024-01-11 20:57:23 Refill Miya Edouard 1.2.840.1 23838.1.1 3.104.2.7 .3.154446 .8 [id number] [facility] 2024-01-10 11:15:00 2024-01-10 11:30:00 County Manager Visit Olamide Simpson [facility] 1.2.840.1 45429.1.1 3.104.2.7 .3.549982 .8 [id number] [facility] 2024-01-10 10:15:00 2024-01-10 10:59:59 Outpatient R OLAMIDE SIMPSON LAURA [facility] [id number] [facility] 2024-01-10 10:15:00 2024-01-10 10:59:59 Office Visit Olamide Simpson 1.2.840.1 86177.1.1 3.104.2.7 .3.926539 .8 [id number] [facility] 2024-01-10 00:00:00 2024-01-10 00:00:00 Travel 1.2.840.1 57780.1.1 3.104.2.7 .3.926491 .8 1.2.840.114 350.1.13.10 4.2.7.3.698 084.8 [id number] [facility] 2024-01-05 08:40:00 2024-01-05 08:40:00 Outpatient R MIYA EDOUARD [facility] [id number] [facility] 2024-01-03 09:40:00 2024-01-03 09:40:00 Outpatient R MIYA EDOUARD [facility] [id number] [facility] 2023-12-29 00:00:00 2023-12-29 11:29:00 Miya Fisher 1.2.840.1 48841.1.1 3.104.2.7 .3.842485 .8 [id number] [facility] 2023-12-22 00:00:00 2023-12-22 10:59:17 Miya Fisher 1.2.840.1 91456.1.1 3.104.2.7 .3.781408 .8 [id number] [facility] 2023-12-03 00:00:2023-12-04 19:32:03 Refill Miya Edouard 1.2.840.1 14550.1.1 3.104.2.7 .3.996109 .8 [id number] [facility] 2023-11-24 00:00:00 2023-11-24 11:05:58 [facility] 1.2.840.114 350.1.13.10 4.2.7.2.686 [id number] 044 [id number] [facility] 2023-11-09 00:00:00 2023-11-09 12:39:20 Refill Miya Edouard [facility] 1.2.840.114 350.1.13.10 4.2.7.2.686 [id number] 044 [id number] [facility] 2023-10-31 15:40:00 2023-10-31 15:40:00 Outpatient R NABILAMIYA HUDSON [facility] [id number] [facility] 2023-10-14 00:00:00 2023-10-16 13:37:25 Refill Miya Edouard [facility] 1.2.840.114 350.1.13.10 4.2.7.2.686 [id number] [id number] [facility] 2023-10-12 13:00:00 2023-10-12 13:00:00 Outpatient R RAFFI RODRIGUEZ [facility] [id number] [facility] 2023-09-12 00:00:00 2023-09-25 13:31:56 [facility] 1.2.840.114 350.1.13.10 4.2.7.2.686 [id number] [id number] [facility] 2023-09-18 00:00:00 2023-09-19 12:27:52 Miya Fisher [facility] 1..840.114 350.1.13.10 4.2.7.2.686 [id number] 044 [id number] [facility] 2023-09-06 00:00:00 2023-09-06 14:18:38 Miya Fisher [facility] 1.2.840.114 350.1.13.10 4.2.7.2.686 [id number] 044 [id number] [facility] 2023-08-22 15:30:00 2023-08-22 15:30:00 Outpatient R GELA BENEDICT [facility] [id number] [facility] 2023-08-22 15:30:00 2023-08-22 15:30:00 Outpatient R YOLI HI [facility] [id number] [facility] 2023-07-31 00:00:00 2023-07-31 00:00:00 Octavia Campa [facility] 1..114 350.1.13.10 4.2.7.2.686 [id number] 044 [id number] [facility] 2023-07-31 00:00:00 2023-07-31 00:00:00 Miya Fisher [facility] 1.2.840.114 350.1.13.10 4.2.7.2.686 [id number] 044 [id number] [facility] 2023-07-12 15:00:00 2023-07-12 15:00:00 Outpatient R MIYA EDOUARD [facility] [id number] [facility] 2023-06-29 00:00:00 2023-06-29 00:00:00 Miya Fisher [facility] 1.2840.114 350.1.13.10 4.2.7.2.686 [id number] 044 [id number] [facility] 2023-06-17 00:00:00 2023-06-17 00:00:00 Miya Fisher [facility] NAL [facility]ILD[facility] 1.2840.114 350.1.13.10 4.2.7.2.686 [id number] 044 [id number] [facility] 2023-05-29 00:00:00 2023-05-29 00:00:00 Refill Octavia Reid [facility] 1.114 350.1.13.10 4.2.7.2.686 [id number] 044 [id number] [facility] 2023-05-29 00:00:00 2023-05-29 00:00:00 Patient Secure Msg Doctor Unassigned, [place] [facility] 1.0.114 350.1.13.10 4.2.7.2.686 [id number] [id number] [facility] 2023-04-30 00:00:00 2023-04-30 00:00:00 Miya Fisher [facility] NAL BUILDING 1.840.114 350.1.13.10 4.2.7.2.686 [id number] 044 [id number] [facility] 2023-04-20 00:00:00 2023-04-20 00:00:00 Patient Secure Msg Jak G[facility] 1.84.114 350.1.13.10 4.2.7.2.686 [id number] [facility] 2023-04-19 09:40:00 2023-04-19 09:40:00 Outpatient R MIYA EDOUARD [facility] [id number] [facility] 2023-04-05 10:32:54 2023-04-05 23:59:00 Outpatient R [facility] [id number] [facility] 2023-04-05 10:32:54 2023-04-05 23:59:00 Hospital Encounter Jak [facility] 1.2.840.114 350.1.13.10 4.2.7.2.686 [id number] [facility] 2023-04-05 11:30:00 2023-04-05 11:45:00 County Manager Visit Pob, [facility] 1.2.840.114 350.1.13.10 4.2.7.2.686 [id number] [facility] 2023-04-03 00:00:00 2023-04-03 00:00:00 Refill Javan [facility] N[facility] BUILDING 1.2.840.114 350.1.13.10 4.2.7.2.686 [id number] [id number] [facility] 2023-03-30 00:00:00 2023-03-30 00:00:00 Refill Javan [facility] BUILDING 1.2.840.114 350.1.13.10 4.2.7.2.686 [id number] [id number] [facility] 2023-03-21 15:30:00 2023-03-21 16:45:47 Outpatient R [facility] [id number] [facility] 2023-03-21 15:30:00 2023-03-21 16:45:47 [facility] 1.2.840.114 350.1.13.10 4.2.7.2.686 [id number] [facility] 2023-03-21 00:00:00 2023-03-21 00:00:00 Orders Only Doctor Unassigned, [place] [facility] 1.2.840.114 350.1.13.10 4.2.7.2.686 [id number] [facility] 2023-01-24 00:00:00 2023-01-24 00:00:00 Patient Secure Msg Doctor Unassigned, [place] [facility] BUILDING 1.2.840.114 350.1.13.10 4.2.7.2.686 [id number] [id number] [facility] 2023-01-13 00:00:00 2023-01-13 00:00:00 Miya Fisher [facility] 1.2.840.114 350.1.13.10 4.2.7.2.686 [id number] [id number] [facility] 2023-01-11 00:00:00 2023-01-11 00:00:00 Patient Secure Msg Doctor Unassigned, [place] [facility] 1.2.840.114 350.1.13.10 4.2.7.2.686 [id number] [facility] 2023-01-11 00:00:00 2023-01-11 00:00:00 Patient Secure Msg Doctor Unassigned, [place] [facility] 1.2.840.114 350.1.13.10 4.2.7.2.686 [id number] [facility] 2023-01-05 00:00:00 2023-01-05 00:00:00 Orders Only Doctor Unassigned, [place] [facility] 1.2.840.114 350.1.13.10 4.2.7.2.686 [id number] [facility] 2023-01-04 11:30:00 2023-01-04 11:30:00 County Manager Visit 2, [facility] [place], Peter [facility] 1.2.840.114 350.1.13.10 4.2.7.2.686 [id number] [facility] 2023-01-04 09:40:00 2023-01-04 10:36:37 Outpatient R MIYA EDOUARD [facility] [id number] [facility] 2023-01-04 09:40:00 2023-01-04 10:36:37 Office Visit Miya Edouard [facility] 1.2.840.114 350.1.13.10 4.2.7.2.686 [id number] [id number] [facility] 2023-01-03 14:20:00 2023-01-03 14:20:00 Outpatient R EVA ABREU [facility] [id number] [facility] 2022-12-29 00:00:00 2022-12-29 00:00:00 Refill Miya Edouard [facility] 1.2.840.114 350.1.13.10 4.2.7.2.686 [id number] [id number] [facility] 2022-12-29 00:00:00 2022-12-29 00:00:00 Telephone Miya Edouard [facility] 1.2.840.114 350.1.13.10 4.2.7.2.686 [id number] [facility] 2022-12-23 06:40:00 2022-12-23 11:30:00 Outpatient SHEREE BLOOD REPLACED BY [facility] [id number] [facility] 2022-12-22 00:00:00 2022-12-22 00:00:00 Orders Only Doctor Unassigned, [place] [facility] 1.2.840.114 350.1.13.10 4.2.7.2.686 [id number] [facility] 2022-12-20 00:00:00 2022-12-20 00:00:00 Refill ColemanMiya hoang [facility] BUILDING 1.2840.114 350.1.13.10 4.2.7.2.686 [id number] [id number] [facility] 2022-12-06 14:00:00 2022-12-06 14:00:00 Outpatient R BRADYEVA [facility] [id number] [facility] 2022-12-01 12:00:00 2022-12-01 14:36:00 Emergency X JEY PEREZ [facility] [id number] [facility] 2022-12-01 12:00:00 2022-12-01 14:36:00 Emergency Jey Perez [facility] 1.0.114 350.1.13.10 4.2.7.2.686 [id number] [facility] 2022-11-28 00:00:00 2022-11-28 00:00:00 Telephone Miya Edouard [facility] 1.0.114 350.1.13.10 4.2.7.2.686 [id number] 044 [id number] [facility] 2022-11-22 00:00:00 2022-11-22 00:00:00 Orders Only Doctor Unassigned, [place] [facility] 1.2840.114 350.1.13.10 4.2.7.2.686 [id number] [facility] 2022-11-20 00:00:00 2022-11-20 00:00:00 Refill JavanMiya [facility] 1.0.114 350.1.13.10 4.2.7.2.686 [id number] [id number] [facility] 2022-11-17 00:00:00 2022-11-17 00:00:00 Telephone Miya Edouard [facility] 1.2.840.114 350.1.13.10 4.2.7.2.686 [id number] 044 [id number] [facility] 2022-11-11 00:00:00 2022-11-11 00:00:00 Refill Miya [place]ard [facility] BUILDING 1.2.840.114 350.1.13.10 4.2.7.2.686 [id number] 044 [id number] [facility] 2022-11-09 10:40:00 2022-11-09 10:40:00 Outpatient R EVA ABREU [facility] [id number] [facility] 2022-11-08 00:00:00 2022-11-08 00:00:00 Patient Secure Msg Javan [facility] BUILDING 1.2.840.114 350.1.13.10 4.2.7.2.686 [id number] 044 [id number] [facility] 2022-10-21 11:00:00 2022-10-21 15:17:15 Outpatient SARMAD MCGUIRE HOWARD [facility] [id number] [facility] 2022-10-21 11:00:00 2022-10-21 15:17:15 Office Visit Sarmad [facility]AY[facility]NN [facility] MEDICAL OFFICE BUILDING 1.2.840.114 350.1.13.10 4.2.7.2.686 [id number] 092 [id number] [facility] 2022-10-21 00:00:00 2022-10-21 00:00:00 Refill Javan [facility] BUILDING 1.2.840.114 350.1.13.10 4.2.7.2.686 [id number] 044 [id number] [facility] 2022-10-13 14:40:00 2022-10-13 15:44:42 Outpatient R EVA ABREU [facility] [id number] [facility] 2022-10-13 14:40:00 2022-10-13 15:44:42 Office Visit Eva Abreu [facility] BUILDING 1.2840.114 350.1.13.10 4.2.7.2.686 [id number] [facility] 2022-10-12 15:08:01 2022-10-12 23:59:00 Outpatient R JAVAN [facility] [id number] [facility] 2022-10-12 15:08:01 2022-10-12 23:59:00 Hospital Encounter Javan Miya [facility] 1.2840.114 350.1.13.10 4.2.7.2.686 [id number] [id number] [facility] 2022-10-06 00:00:00 2022-10-06 00:00:00 Refill Javan Miya [facility] BUILDING 1.2.840.114 350.1.13.10 4.2.7.2.686 [id number] 044 [id number] [facility] 2022-10-05 00:00:00 2022-10-05 00:00:00 Letter (Out) Neurology [facility] MEDICAL OFFICE BUILDING 1.2.840.114 350.1.13.10 4.2.7.2.686 [id number] 092 [id number] [facility] 2022-10-04 16:00:00 2022-10-04 16:40:00 Office Visit Miya Edouard [facility] BUILDING 1.2.840.114 350.1.13.10 4.2.7.2.686 [id number] 044 [id number] [facility] 2022-10-04 16:00:00 2022-10-04 16:00:00 Outpatient R MIYA EDOUARD [facility] [id number] [facility] 2022-09-30 00:00:00 2022-09-30 00:00:00 Patient Secure Msg Doctor Unassigned, [place] [facility] 1.2840.114 350.1.13.10 4.2.7.2.686 [id number] 019 [id number] [facility] 2022-09-29 00:00:00 2022-09-29 00:00:00 Patient Secure Msg Doctor Unassigned, [place] [facility] 1.20.114 350.1.13.10 4.2.7.2.686 [id number] 019 [id number] [facility] 2022-09-28 12:47:00 2022-09-28 16:58:00 Emergency X [facility] ERT [id number] [facility] 2022-09-28 12:47:00 2022-09-28 16:58:00 Emergency [facility] 1.840.114 350.1.13.10 4.2.7.2.686 [id number] 084 [id number] [facility] 2022-09-27 00:00:00 2022-09-27 00:00:00 Refdallas Edouard [facility] PROFESSIO NAL BUILDING 1.0.114 350.1.13.10 4.2.7.2.686 [id number] 044 [id number] [facility] 2022-09-25 00:00:00 2022-09-25 00:00:00 Refdallas Nabilamisti [facility] PROFESSIO NAL BUILDING 1.20.114 350.1.13.10 4.2.7.2.686 [id number] 044 [id number] [facility] 2022-09-18 00:00:00 2022-09-18 00:00:00 Miya Fisher [facility] PROFESSIO NAL BUILDING 1.2.840.114 350.1.13.10 4.2.7.2.686 [id number] 044 [id number] [facility] 2022-09-16 00:00:00 2022-09-16 00:00:00 Refill Miya Edouard [facility] PROFESSIO NAL BUILDING 1.2.840.114 350.1.13.10 4.2.7.2.686 [id number] 044 [id number] [facility] 2022-08-25 16:09:30 2022-08-25 23:59:00 Outpatient R RADIOLOGY [facility] [id number] [facility] 2022-08-25 16:09:30 2022-08-25 23:59:00 Hospital Encounter Radiology [facility] 1.2.840.114 350.1.13.10 4.2.7.2.686 [id number] 804 [id number] [facility] 2022-08-25 16:00:00 2022-08-25 16:08:00 Hospital Encounter Radiology [facility] 1.2.840.114 350.1.13.10 4.2.7.2.686 [id number] [id number] [facility] 2022-08-25 15:45:00 2022-08-25 15:59:00 Hospital Encounter Radiology [facility] 1.2.840.114 350.1.13.10 4.2.7.2.686 [id number] 807 [id number] [facility] 2022-08-25 00:00:00 2022-08-25 00:00:00 Orders Only Doctor Unassigned, [place] [facility] 1.2.840.114 350.1.13.10 4.2.7.2.686 [id number] [facility] 2022-08-24 00:00:00 2022-08-24 00:00:00 [facility]rennan[facility] BU[facility] 1.2.840.114 350.1.13.10 4.2.7.2.686 [id number] 044 [id number] [facility] 2022-08-17 00:00:00 2022-08-17 00:00:00 Refill NabilaalizenatalyaMiya [facility] BUILDING 1.2.840.114 350.1.13.10 4.2.7.2.686 [id number] 044 [id number] [facility] 2022-07-21 00:00:00 2022-07-21 00:00:00 Refill Nabilaalizenatalya [facility] BUILDING 1.2.840.114 350.1.13.10 4.2.7.2.686 [id number] 044 [id number] [facility] 2022-07-07 00:00:00 2022-07-07 00:00:00 Refill Octavia Reid [facility] 1.2.840.114 350.1.13.10 4.2.7.2.686 [id number] 044 [id number] [facility] 2022-06-24 00:00:00 2022-06-24 00:00:00 Refill Javan [facility] BUILDING 1.2.840.114 350.1.13.10 4.2.7.2.686 [id number] 044 [id number] [facility] 2022-06-23 00:00:00 2022-06-23 00:00:00 Neo Edouard [facility] BUILDING 1.2.840.114 350.1.13.10 4.2.7.2.686 [id number] 044 [id number] [facility] 2022-06-21 16:20:00 2022-06-21 16:20:00 Outpatient R MIYA EDOUARD [facility] [id number] [facility] 2022-06-14 16:00:00 2022-06-14 16:00:00 Outpatient R ABBEY ROTHMAN [facility] [id number] [facility] 2022-06-12 00:00:00 2022-06-12 00:00:00 Octavia Campa [facility] 1.2840.114 350.1.13.10 4.2.7.2.686 [id number] 044 [id number] [facility] 2022-06-09 00:00:00 2022-06-09 00:00:00 Miya Fisher [facility] PROFESSIO [facility] 1.2.840.114 350.1.13.10 4.2.7.2.686 [id number] 044 [id number] [facility] 2022-06-07 15:44:21 2022-06-07 23:59:00 Hospital Encounter Radiology [facility] 1.2.840.114 350.1.13.10 4.2.7.2.686 [id number] [facility] 2022-06-07 15:43:47 2022-06-07 15:43:47 Outpatient R RADIOLOGY [facility] [id number] [facility] 2022-06-07 15:43:47 2022-06-07 15:43:47 Hospital Encounter Radiology [facility] 1.2840.114 350.1.13.10 4.2.7.2.686 [id number] 804 [id number] [facility] 2022-06-03 14:00:00 2022-06-03 14:29:10 Outpatient R MIYA EDOUARD [facility] [id number] [facility] 2022-06-03 14:00:00 2022-06-03 14:29:10 Office Visit Miya [facility] BUILDING 1.2.840.114 350.1.13.10 4.2.7.2.686 [id number] 044 [id number] [facility] 2022-05-28 00:00:00 2022-05-28 00:00:00 Refill Miya Edouard [facility] BUILDING 1.2.840.114 350.1.13.10 4.2.7.2.686 [id number] 044 [id number] [facility] 2022-05-24 16:00:00 2022-05-24 16:00:00 Outpatient R ABBEY ROTHMAN [facility] [id number] [facility] 2022-05-12 15:40:00 2022-05-12 15:40:00 Outpatient R MIYA EDOUARD [facility] [id number] [facility] 2022-05-12 00:00:00 2022-05-12 00:00:00 Telephone Miya Edouard [facility] 1.2.840.114 350.1.13.10 4.2.7.2.686 [id number] 044 [id number] [facility] 2022-05-12 00:00:00 2022-05-12 00:00:00 Telephone Octavia Reid [facility] 1.2840.114 350.1.13.10 4.2.7.2.686 [id number] 044 [id number] [facility] 2022-05-12 00:00:00 2022-05-12 00:00:00 Patient Secure Msg Miya Edouard [facility] BUILDING 1.2.840.114 350.1.13.10 4.2.7.2.686 [id number] 044 [id number] [facility] 2022-04-21 15:45:00 2022-04-21 15:45:00 Outpatient R HAYLEY ABBEY [facility] [id number] [facility] 2022-04-13 00:00:00 2022-04-13 00:00:00 Refill Miya Edouard [facility] PROFESSIO [facility] 1.2.840.114 350.1.13.10 4.2.7.2.686 [id number] 044 [id number] [facility] 2022-03-30 00:00:00 2022-03-30 00:00:00 Refill Javan [facility] 1..840.114 350.1.13.10 4.2.7.2.686 [id number] 044 [id number] [facility] 2022-02-18 00:00:00 2022-02-18 00:00:00 Outpatient R MIYA EDOUARD [facility] [id number] [facility] 2022-02-17 00:00:00 2022-02-17 00:00:00 Telephone Miya Edouard [facility] 1..840.114 350.1.13.10 4.2.7.2.686 [id number] [facility] 2022-02-10 12:54:03 2022-02-10 23:59:00 Outpatient R MIYA EDOUARD [facility] [id number] [facility] 2022-02-10 12:54:03 2022-02-10 23:59:00 Hospital Encounter Miya Edouard [facility] 1.2.840.114 350.1.13.10 4.2.7.2.686 [id number] [id number] [facility] 2022-02-04 00:00:00 2022-02-04 00:00:00 Patient Secure Msg Doctor Unassigned, [place] [facility] 1.114 350.1.13.10 4.2.7.2.686 [id number] 807 [id number] [facility] 2022-02-03 08:19:00 2022-02-03 09:38:00 Emergency X [facility] ERT [id number] [facility] 2022-02-03 08:19:00 2022-02-03 09:38:00 Emergency Carolina Maurice [facility] 1..114 350.1.13.10 4.2.7.2.686 [id number] 084 [id number] [facility] 2022-02-02 00:00:00 2022-02-02 00:00:00 Refill Javan [facility] 1.84.114 350.1.13.10 4.2.7.2.686 [id number] 044 [id number] [facility] 2022-01-27 16:00:00 2022-01-27 17:05:13 Outpatient R MIYA EDOUARD [facility] [id number] [facility] 2022-01-27 16:00:00 2022-01-27 17:05:13 Office Visit Miya Edouard [facility] 1.84.114 350.1.13.10 4.2.7.2.686 [id number] 044 [id number] [facility] 2022-01-26 07:45:00 2022-01-26 08:00:00 County Manager Visit Pob, Adc Lab Main Javan [facility] BUILDING 1.84.114 350.1.13.10 4.2.7.2.686 [id number] [facility] 2022-01-26 07:45:00 2022-01-26 07:45:00 Outpatient R MIYA EDOUARD [facility] [id number] [facility] 2022-01-12 00:00:00 2022-01-12 00:00:00 Telephone Miya Edouard [facility] BUILDING 1.2.840.114 350.1.13.10 4.2.7.2.686 [id number] 044 [id number] [facility] 2022-01-03 00:00:00 2022-01-03 00:00:00 Telephone Miya Edouard [facility] 1.2.840.114 350.1.13.10 4.2.7.2.686 [id number] 044 [id number] [facility] 2021-12-30 00:00:00 2021-12-30 00:00:00 Telephone Miya Edouard [facility] 1.2.840.114 350.1.13.10 4.2.7.2.686 [id number] 044 [id number] [facility] 2021-12-29 00:00:00 2021-12-29 00:00:00 Telephone Miya Edouard [facility] 1.2.840.114 350.1.13.10 4.2.7.2.686 [id number] 044 [id number] [facility] 2021-12-24 00:00:00 2021-12-24 00:00:00 Refill Miya Edouard [facility] BUILDING 1.2.840.114 350.1.13.10 4.2.7.2.686 [id number] 044 [id number] [facility] 2021-12-24 00:00:00 2021-12-24 00:00:00 Telephone Miya Edouard [facility] BUILDING 1.2.840.114 350.1.13.10 4.2.7.2.686 [id number] 044 [id number] [facility] 2021-12-23 16:00:00 2021-12-23 16:43:06 Outpatient R MIYA EDOUARD [facility] [id number] [facility] 2021-12-23 16:00:00 2021-12-23 16:43:06 Office Visit Miya Edouard [facility] BUILDING 1.2.840.114 350.1.13.10 4.2.7.2.686 [id number] 044 [id number] [facility] 2021-12-23 16:00:00 2021-12-23 16:00:00 Outpatient R MIYA EDOUARD [facility] [id number] [facility] 2021-12-23 00:00:00 2021-12-23 00:00:00 Telephone Miya Edouard [facility] 1.2.840.114 350.1.13.10 4.2.7.2.686 [id number] 044 [id number] [facility] 2021-12-19 00:00:00 2021-12-19 00:00:00 Refill Miya Edouard [facility] 1.2.840.114 350.1.13.10 4.2.7.2.686 [id number] 044 [id number] [facility] 2021-12-17 00:00:00 2021-12-17 00:00:00 Patient Secure Msg Doctor Unassigned, [place] [facility] BUILDING 1.2.840.114 350.1.13.10 4.2.7.2.686 [id number] 044 [id number] [facility] 2021-12-09 00:00:00 2021-12-09 00:00:00 Telephone Miya Edouard [facility] BUILDING 1.2.840.114 350.1.13.10 4.2.7.2.686 [id number] 044 [id number] [facility] 2021-12-08 15:40:00 2021-12-08 16:27:17 Outpatient R MIYA EDOUARD [facility] [id number] [facility] 2021-12-08 15:40:00 2021-12-08 16:27:17 Telemedici ne Visit Miya Edouard [facility] 1.284.114 350.1.13.10 4.2.7.2.686 [id number] 044 [id number] [facility] 2021-12-06 00:00:00 2021-12-06 00:00:00 Patient Secure Msg Javan [facility] 1.84.114 350.1.13.10 4.2.7.2.686 [id number] 044 [id number] [facility] 2021-12-03 07:45:00 2021-12-03 08:00:00 County Manager Visit Pob, Adc Lab Main Javan [facility] 1.84.114 350.1.13.10 4.2.7.2.686 [id number] [facility] 2021-12-03 07:45:00 2021-12-03 07:45:00 Outpatient R MIYA EDOUARD [facility] [id number] [facility] 2021-12-03 00:00:00 2021-12-03 00:00:00 Orders Only Doctor Unassigned, [place] [facility] 1..114 350.1.13.10 4.2.7.2.686 [id number] [facility] 2021-11-26 00:00:00 2021-11-26 00:00:00 Nathaly Smith [facility] 1.84.114 350.1.13.10 4.2.7.2.686 [id number] 044 [id number] [facility] 2021-11-19 00:00:00 2021-11-19 00:00:00 Refill NabilaalizeMiya hoang [facility] 1..840.114 350.1.13.10 4.2.7.2.686 [id number] 044 [id number] [facility] 2021-10-28 14:00:00 2021-10-28 14:15:00 County Manager Visit Only, Ang Db Test Louis [facility] OFF[facility] BUILDING 1..840.114 350.1.13.10 4.2.7.2.686 [id number] [facility] 2021-10-28 14:00:00 2021-10-28 14:00:00 [id number] 2021-10-24 09:30:00 2021-10-24 09:45:00 County Manager Visit Only, Ang Db Test Louis [facility] BUILDING 1..840.114 350.1.13.10 4.2.7.2.686 [id number] [facility] 2021-10-24 09:30:00 2021-10-24 09:28:17 Outpatient R LOUIS CHARY [facility] [id number] [facility] 2021-10-22 00:00:00 2021-10-22 00:00:00 Patient Secure Msg NabilaalizeMiya hoang [facility] 1..840.114 350.1.13.10 4.2.7.2.686 [id number] 044 [id number] [facility] 2021-10-05 00:00:00 2021-10-05 00:00:00 Telephone Miya Edouard [facility] BUILDING 1.2.840.114 350.1.13.10 4.2.7.2.686 [id number] 044 [id number] [facility] 2021-10-01 16:30:00 2021-10-01 17:17:32 Outpatient R NATHALY RICHTER [facility] [id number] [facility] 2021-10-01 16:30:00 2021-10-01 17:17:32 Office Visit Nathaly Richter [facility] BUILDING 1.2.840.114 350.1.13.10 4.2.7.2.686 [id number] 044 [id number] [facility] 2021-10-01 00:00:00 2021-10-01 00:00:00 Refill Miya Edouard [facility] 1.2.840.114 350.1.13.10 4.2.7.2.686 [id number] 044 [id number] [facility] 2021-09-28 00:00:00 2021-09-28 00:00:00 Refill Miya Edouard [facility] BUILDING 1.2.840.114 350.1.13.10 4.2.7.2.686 [id number] 044 [id number] [facility] 2021-09-25 00:00:00 2021-09-25 00:00:00 Refill Miya Edouard [facility] BUILDING 1.2.840.114 350.1.13.10 4.2.7.2.686 [id number] 044 [id number] [facility] 2021-09-24 00:00:00 2021-09-24 00:00:00 Refill Miya Edouard [facility] BUILDING 1.2.840.114 350.1.13.10 4.2.7.2.686 [id number] 044 [id number] [facility] 2021-08-10 15:40:00 2021-08-10 15:40:00 Outpatient R MIYA EDOUARD [facility] [id number] [facility] 2021-07-24 00:00:00 2021-07-24 00:00:00 Refill Miya Edouard [facility] 1.2.840.114 350.1.13.10 4.2.7.2.686 [id number] 044 [id number] [facility] 2021-07-23 00:00:00 2021-07-23 00:00:00 Refill Miya Edouard [facility] 1.2.840.114 350.1.13.10 4.2.7.2.686 [id number] 044 [id number] [facility] 2021-06-18 00:00:00 2021-06-18 00:00:00 Telephone Miya Edouard [facility] [place] 1.2.840.114 350.1.13.10 4.2.7.2.686 [id number] [facility] 2021-06-14 00:00:00 2021-06-14 00:00:00 Telephone Miya [facility] 1.2.840.114 350.1.13.10 4.2.7.2.686 [id number] 044 [id number] [facility] 2021-06-10 00:00:00 2021-06-10 00:00:00 Telephone Miya Edouard [facility] 1.2.840.114 350.1.13.10 4.2.7.2.686 [id number] 044 [id number] [facility] 2021-06-08 00:00:00 2021-06-08 00:00:00 [facility] 1.2.840.114 350.1.13.10 4.2.7.2.686 [id number] 044 [id number] [facility] 2021-05-31 00:00:00 2021-05-31 00:00:00 Telephone Miya Edouard [facility] BUILDING 1.2.840.114 350.1.13.10 4.2.7.2.686 [id number] 044 [id number] [facility] 2021-05-27 00:00:00 2021-05-27 00:00:00 Refill Miya Edouard [facility] BUILDING 1.2.840.114 350.1.13.10 4.2.7.2.686 [id number] 044 [id number] [facility] 2021-05-27 00:00:00 2021-05-27 00:00:00 Telephone Miya Edouard [facility] N[facility] BUILDING 1.2.840.114 350.1.13.10 4.2.7.2.686 [id number] 044 [id number] [facility] 2021-05-20 15:30:00 2021-05-20 15:32:49 Outpatient R NIKA BERRY [facility] [id number] [facility] 2021-05-20 15:30:00 2021-05-20 15:32:49 Office Visit Nika Berry [facility] BUILDING 1.2.840.114 350.1.13.10 4.2.7.2.686 [id number] [facility] 2021-05-18 00:00:00 2021-05-18 00:00:00 Refill [facility] 1.2.840.114 350.1.13.10 4.2.7.2.686 [id number] 044 [id number] [facility] 2021-05-13 00:00:00 2021-05-13 00:00:00 Telephone Miya Edouard [facility] 1.2.840.114 350.1.13.10 4.2.7.2.686 [id number] [id number] [facility] 2021-05-11 00:00:00 2021-05-11 00:00:00 Telephone Miya Edouard [facility] 1.2.840.114 350.1.13.10 4.2.7.2.686 [id number] [facility] 2021-05-10 00:00:00 2021-05-10 00:00:00 Telephone Miya Edouard [facility] 1.2.840.114 350.1.13.10 4.2.7.2.686 [id number] 044 [id number] [facility] 2021-05-10 00:00:00 2021-05-10 00:00:00 Telephone Miya Edouard [facility] 1.2.840.114 350.1.13.10 4.2.7.2.686 [id number] [id number] [facility] 2021-05-06 09:05:00 2021-05-06 14:37:00 Outpatient R NIKA [facility] [place] [id number] [facility] 2021-05-06 09:05:00 2021-05-06 14:37:00 Hospital Encounter Nika Berry [facility] 1.2.840.114 350.1.13.10 4.2.7.2.686 [id number] [facility] 2021-05-06 09:05:00 2021-05-06 14:37:00 Outpatient R NIKA [facility] [place] [id number] [facility] 2021-05-06 12:31:00 2021-05-06 14:31:00 Surgery AdNika fischer [facility] 1.2840.114 350.1.13.10 4.2.7.2.686 [id number] [facility] 2021-05-06 00:00:00 2021-05-06 00:00:00 [facility] 1.2840.114 350.1.13.10 4.2.7.2.686 [id number] [facility] 2021-05-05 16:00:00 2021-05-05 16:31:52 Outpatient R MIYA EDOUARD [facility] [id number] [facility] 2021-05-05 16:00:00 2021-05-05 16:31:52 Office Visit Miya Edouard [facility] 1.20.114 350.1.13.10 4.2.7.2.686 [id number] [facility] 2021-05-04 12:15:00 2021-05-04 12:30:00 County Manager Visit Pob, Adc Lab Main AdNika [facility] 1.2840.114 350.1.13.10 4.2.7.2.686 [id number] [facility] 2021-05-04 12:15:00 2021-05-04 12:15:00 Outpatient R [facility] [id number] [facility] 2021-05-04 12:00:00 2021-05-04 12:15:00 Laboratory Only Only, Adc Test Nika fischer [facility] 1.2840.114 350.1.13.10 4.2.7.2.686 [id number] [facility] 2021-05-04 12:00:00 2021-05-04 12:00:00 Outpatient R NIKA BERRY [facility] [id number] [facility] 2021-05-04 00:00:00 2021-05-04 00:00:00 Orders Only Doctor Unassigned, [place] [facility] 1..840.114 350.1.13.10 4.2.7.2.686 [id number] [facility] 2021-04-22 14:30:00 2021-04-22 15:09:50 Outpatient R JAMAL [facility] [id number] [facility] 2021-04-22 14:30:00 2021-04-22 15:09:50 Office Visit Nika Berry [facility] 1..840.114 350.1.13.10 4.2.7.2.686 [id number] [facility] 2021-04-22 15:00:00 2021-04-22 15:00:00 Outpatient R JAMAL [facility] [id number] [facility] 2021-04-22 00:00:00 2021-04-22 00:00:00 Miya Fisher [facility] 1..840.114 350.1.13.10 4.2.7.2.686 [id number] [id number] [facility] 2021-04-20 16:15:00 2021-04-20 16:50:21 Outpatient R HAYLEY ABBEY [facility] [id number] [facility] 2021-04-20 16:15:00 2021-04-20 16:50:21 Office Visit [place] Rothman [facility] 1..840.114 350.1.13.10 4.2.7.2.686 [id number] [facility] 2021-04-19 00:00:00 2021-04-19 00:00:00 Refill Miya Edouard [facility] NAL BUILDING 1.2.840.114 350.1.13.10 4.2.7.2.686 [id number] 044 [id number] [facility] 2021-04-12 00:00:00 2021-04-12 00:00:00 Telephone Miya Edouard [facility] NAL BUILDING 1.2.840.114 350.1.13.10 4.2.7.2.686 [id number] 044 [id number] [facility] 2021-04-02 08:03:00 2021-04-02 10:35:00 Outpatient R ABBEY [facility] DEB [id number] [facility] 2021-04-02 08:03:00 2021-04-02 10:35:00 Hospital Encounter Abbey Rothman [facility] 1.2840.114 350.1.13.10 4.2.7.2.686 [id number] [facility] 2021-04-02 09:32:00 2021-04-02 10:30:00 Surgery Abbey Rothman [facility] 1.2840.114 350.1.13.10 4.2.7.2.686 [id number] [facility] 2021-04-02 00:00:00 2021-04-02 00:00:00 Orders Only Doctor Unassigned, [place] [facility] 1.2.840.114 350.1.13.10 4.2.7.2.686 [id number] [facility] 2021-03-19 15:30:00 2021-03-19 15:30:00 Outpatient NIKA MADDEN [facility] [id number] [facility] 2021-03-18 00:00:00 2021-03-18 00:00:00 Patient Secure Msg Doctor Unassigned, [place] [facility] 1.2.114 350.1.13.10 4.2.7.2.686 [id number] [facility] 2021-03-16 00:00:00 2021-03-16 00:00:00 [facility] 1.20.114 350.1.13.10 4.2.7.2.686 [id number] [facility] 2021-03-11 00:00:00 2021-03-11 00:00:00 Patient Secure Msg [facility] 1.2.114 350.1.13.10 4.2.7.2.686 [id number] [facility] 2021-03-10 13:48:49 2021-03-10 23:59:00 [facility] 1.20.114 350.1.13.10 4.2.7.2.686 [id number] [facility] 2021-03-10 13:46:21 2021-03-10 13:47:00 [facility] [id number] [facility] 2021-03-10 13:46:21 2021-03-10 13:47:00 Hospital Encounter Brady [facility] 1.2.114 350.1.13.10 4.2.7.2.686 [id number] [facility] 2021-03-04 12:51:00 2021-03-04 16:33:00 Outpatient R NIKA [facility] [id number] [facility] 2021-03-04 12:51:00 2021-03-04 16:33:00 Hospital Encounter AdNika fischer [facility] 1.2.840.114 350.1.13.10 4.2.7.2.686 [id number] 071 [id number] [facility] 2021-03-04 13:25:00 2021-03-04 15:26:00 Surgery AdNika fischer [facility] 1.2.840.114 350.1.13.10 4.2.7.2.686 [id number] [facility] 2021-03-04 00:00:00 2021-03-04 00:00:00 Telephone Eva Abreu [facility]ESSIO [facility] 1.2.840.114 350.1.13.10 4.2.7.2.686 [id number] [id number] [facility] 2021-03-04 00:00:00 2021-03-04 00:00:00 Orders Only Doctor Unassigned, [place] [facility] 1.2.840.114 350.1.13.10 4.2.7.2.686 [id number] [facility] 2021-03-02 11:38:41 2021-03-02 11:53:41 County Manager Visit 1, Adc Lab Nika Berry [facility] 1.2.840.114 350.1.13.10 4.2.7.2.686 [id number] [facility] 2021-03-02 11:30:00 2021-03-02 11:30:00 Outpatient R [facility] [id number] [facility] 2021-03-02 11:30:00 2021-03-02 11:30:00 [facility] [id number] [facility] 2021-03-02 00:00:00 2021-03-02 00:00:00 Orders Only Doctor Unassigned, [place] [facility] 1.840.114 350.1.13.10 4.2.7.2.686 [id number] [facility] 2021-03-01 00:00:00 2021-03-01 00:00:00 [facility] [id number] [facility] 2021-03-01 00:00:00 2021-03-01 00:00:00 Outpatient R BRADY [facility] [id number] [facility] 2021-02-26 16:00:00 2021-02-26 17:26:37 Outpatient R JAMAL NIKA [facility] [id number] [facility] 2021-02-26 16:00:00 2021-02-26 17:26:37 [facility] [id number] [facility] 2021-02-26 15:40:04 2021-02-26 17:26:37 Office Visit Jamal Nika Tl [facility] 1.840.114 350.1.13.10 4.2.7.2.686 [id number] [facility] 2021-02-26 16:00:00 2021-02-26 16:00:00 Outpatient R MIKE BERRYIAN [facility] [id number] [facility] 2021-02-26 00:00:00 2021-02-26 00:00:00 Prep For Surgery Jamal Nika Tl [facility] 1..840.114 350.1.13.10 4.2.7.2.686 [id number] [facility] 2021-02-26 00:00:00 2021-02-26 00:00:00 Orders Only Doctor Unassigned, [place] [facility] 1.840.114 350.1.13.10 4.2.7.2.686 [id number] [id number] [facility] 2021-02-25 00:00:00 2021-02-25 00:00:00 Prep For Surgery Diann Christianson [facility] BUILDING 1.2.840.114 350.1.13.10 4.2.7.2.686 [id number] [facility] 2021-02-24 00:00:00 2021-02-24 00:00:00 Orders Only Doctor Unassigned, [place] [facility] 1.284.114 350.1.13.10 4.2.7.2.686 [id number] [id number] [facility] 2021-02-24 00:00:00 2021-02-24 00:00:00 Patient Secure Msg Doctor Unassigned, [place] [facility] 1.284.114 350.1.13.10 4.2.7.2.686 [id number] [facility] 2021-02-23 14:30:00 2021-02-23 15:55:10 Outpatient R ABBEY ROTHMAN [facility] [id number] [facility] 2021-02-23 14:21:20 2021-02-23 15:55:10 Office Visit Abbey Rothman [facility] 1.2.840.114 350.1.13.10 4.2.7.2.686 [id number] [facility] 2021-02-23 14:30:00 2021-02-23 14:30:00 Outpatient R ABBEY ROTHMAN [facility] [id number] [facility] 2021-02-23 00:00:00 2021-02-23 00:00:00 Orders Only Doctor Unassigned, [place] [facility] 1.2840.114 350.1.13.10 4.2.7.2.686 [id number] [facility] 2021-02-17 14:10:00 2021-02-17 23:59:00 Outpatient [facility] [id number] [facility] 2021-02-17 14:10:00 2021-02-17 23:59:00 Hospital Encounter Brady [facility] BUILDING 1.2.840.114 350.1.13.10 4.2.7.2.686 [id number] [facility] 2021-02-17 15:40:00 2021-02-17 14:10:44 Outpatient R [facility]AND [facility] [id number] [facility] 2021-02-17 15:40:00 2021-02-17 14:10:44 Outpatient R [facility] [id number] [facility] 2021-02-17 13:16:10 2021-02-17 14:10:44 Office Visit Brady [facility] BUILDING 1.2.840.114 350.1.13.10 4.2.7.2.686 [id number] [facility] 2021-02-17 13:16:10 2021-02-17 14:10:44 Office Visit [facility] 1.2.840.114 350.1.13.10 4.2.7.2.686 [id number] [id number] [facility] 2021-02-16 00:00:00 2021-02-16 00:00:00 Telephone Miya Edouard [facility] BUILDING 1.2.840.114 350.1.13.10 4.2.7.2.686 [id number] 044 [id number] [facility] 2021-02-11 00:00:00 2021-02-11 00:00:00 Patient Secure Msg Miya Edouard [facility] BUILDING 1.2.840.114 350.1.13.10 4.2.7.2.686 [id number] 044 [id number] [facility] 2021-02-11 00:00:00 2021-02-11 00:00:00 Telephone Miya Edouard [facility] BUILDING 1.2.840.114 350.1.13.10 4.2.7.2.686 [id number] 044 [id number] [facility] 2021-02-10 10:33:05 2021-02-10 23:59:00 Hospital Encounter Miya Edouard [facility] 1.2.840.114 350.1.13.10 4.2.7.2.686 [id number] [facility] 2021-02-10 10:33:05 2021-02-10 23:59:00 Outpatient R MIYA EDOUARD [facility] [id number] [facility] 2021-02-09 15:57:13 2021-02-09 16:12:13 County Manager Visit 2, Adc Lab Miya Edouard [facility] Building 1.2.840.114 350.1.13.10 4.2.7.2.686 [id number] [facility] 2021-02-09 15:00:00 2021-02-09 15:52:52 Outpatient R NIKA BERRY [facility] [id number] [facility] 2021-02-09 14:35:17 2021-02-09 15:52:52 Office Visit Nika Berry [facility] Building 1.2.840.114 350.1.13.10 4.2.7.2.686 [id number] [facility] 2021-02-09 15:00:00 2021-02-09 15:00:00 Outpatient R NIKA BERRY [facility] [id number] [facility] 2021-02-08 00:00:00 2021-02-08 00:00:00 Telephone Yasir Ghosh [facility] Professio [facility] Building 1.2.840.114 350.1.13.10 4.2.7.2.686 [id number] [facility] 2021-02-03 11:49:31 2021-02-03 23:59:00 Hospital Encounter Miya Edouard [facility] 1.840.114 350.1.13.10 4.2.7.2.686 [id number] [facility] 2021-02-03 00:00:00 2021-02-03 00:00:00 Outpatient R MIYA EDOUARD [facility] [id number] [facility] 2021-02-03 00:00:00 2021-02-03 00:00:00 Telephone Miya Edouard [facility] 1.840.114 350.1.13.10 4.2.7.2.686 [id number] [id number] [facility] 2021-01-30 00:00:00 2021-01-30 00:00:00 Patient Secure Msg Doctor Unassigned, [place] [facility] 1.840.114 350.1.13.10 4.2.7.2.686 [id number] [facility] 2021-01-26 00:00:00 2021-01-26 00:00:00 Letter (Out) Miay Edouard [facility] 1.2.840.114 350.1.13.10 4.2.7.2.686 [id number] [facility] 2021-01-22 00:00:00 2021-01-22 00:00:00 Patient Secure Msg Doctor Unassigned, [place] [facility] 1.2.840.114 350.1.13.10 4.2.7.2.686 [id number] [facility] 2021-01-21 00:00:00 2021-01-21 00:00:00 Patient Secure Msg Doctor Unassigned, [place] [facility] 1.2.840.114 350.1.13.10 4.2.7.2.686 [id number] 019 [id number] [facility] 2021-01-21 00:00:00 2021-01-21 00:00:00 Telephone Miya Edouard [facility] Building 1.2.840.114 350.1.13.10 4.2.7.2.686 [id number] 044 [id number] [facility] 2021-01-20 15:33:31 2021-01-20 17:02:48 Office Visit Miya Edouard [facility] Building 1.2.840.114 350.1.13.10 4.2.7.2.686 [id number] [facility] 2021-01-20 16:00:00 2021-01-20 16:00:00 Outpatient R MIYA EDOUARD [facility] [id number] [facility] 2021-01-07 00:00:00 2021-01-07 00:00:00 Telephone Miya Edouard [facility] Building 1.2.840.114 350.1.13.10 4.2.7.2.686 [id number] [facility] 2020-12-11 15:40:00 2020-12-11 15:40:00 Outpatient RUSSELL CARDOZA [facility] [id number] [facility] 2020-12-11 11:44:57 2020-12-11 11:45:04 Imm/Inj Visit Nurse, Jimmy Pomed Immunizatio n Russell Lawler [facility] Building 1.840.114 350.1.13.10 4.2.7.2.686 [id number] [facility] 2020-11-14 13:56:15 2020-11-14 14:06:15 Imm/Inj Visit Vaccine, Jimmy Family Frank [facility] Office Building One 1.840.114 350.1.13.10 4.2.7.2.686 [id number] [id number] [facility] 2020-11-14 13:30:00 2020-11-14 13:30:00 Outpatient Jhoana [facility] [id number] [facility] 2020-10-24 00:00:00 2020-10-24 00:00:00 Telephone Provider, [facility] Office Building One 1.840.114 350.1.13.10 4.2.7.2.686 [id number] [facility] 2020-10-22 10:21:57 2020-10-22 11:20:22 Urgent Care Provider, Huy Urgent Mary Bush [facility] Office Building One 1.840.114 350.1.13.10 4.2.7.2.686 [id number] [facility] 2020-10-22 10:20:00 2020-10-22 10:20:00 Outpatient MARY HOFFMANN [facility] [id number] [facility] 2020-07-03 10:00:00 2020-07-03 10:00:00 Outpatient FESTUS STRAUSS [facility] [id number] [facility] 2020-07-02 00:00:00 2020-07-02 00:00:00 Patient Outreach Russell Lawler [facility] 1.2.840.114 350.1.13.10 4.2.7.2.686 [id number] [facility] 2020-04-23 16:20:00 2020-04-23 16:20:00 Outpatient R MIYA EDOUARD [facility] [id number] [facility] 2020-01-28 00:00:00 2020-01-28 00:00:00 Refill Miya Edouard [facility] Building 1.2.840.114 350.1.13.10 4.2.7.2.686 [id number] 2020-01-28 00:00:00 2020-01-28 00:00:00 Refill Miya Edouard [facility] Building 1.2.840.114 350.1.13.10 4.2.7.2.686 [id number] [id number] [facility] 2020-01-21 15:55:21 2020-01-21 16:32:24 Office Visit Miya Edouard [facility] Building 1.2.840.114 350.1.13.10 4.2.7.2.686 [id number] [id number] [facility] 2020-01-21 15:55:21 2020-01-21 16:32:24 Office Visit Miya Edouard [facility] Building 1.2.840.114 350.1.13.10 4.2.7.2.686 [id number] 2020-01-21 16:00:00 2020-01-21 16:00:00 Outpatient R MIYA EDOUARD [facility] [id number] [facility] 2020-01-15 15:00:00 2020-01-15 15:00:00 Outpatient R MIYA EDOUARD [facility] [id number] [facility] 2020-01-03 00:00:00 2020-01-03 00:00:00 Transition of Care Karen Copeland 1..114 350.1.13.10 4.2.7.2.686 [id number] [facility] 2020-01-01 14:37:00 2020-01-01 17:46:00 Emergency Danae Logan [facility] 1..114 350.1.13.10 4.2.7.2.686 [id number] [facility] 2020-01-01 13:13:43 2020-01-01 14:23:28 Office Visit Miya Edouard [facility] Building 1.114 350.1.13.10 4.2.7.2.686 [id number] [facility] 2020-01-01 13:20:00 2020-01-01 13:20:00 Outpatient R MIYA EDOUARD [facility] [id number] [facility] 2019-12-30 11:40:00 2019-12-30 11:40:00 Outpatient R GEORGE GIL [facility] [id number] [facility] 2019-12-30 10:16:20 2019-12-30 10:36:20 Laboratory Only Lab, [facility] 1.114 350.1.13.10 4.2.7.2.686 [id number] [id number] [facility] 2019-12-30 00:00:00 2019-12-30 00:00:00 Letter (Out) Miya Edouard [facility] Office Building One 1.114 350.1.13.10 4.2.7.2.686 [id number] [facility] 2019-11-14 14:40:00 2019-11-14 14:40:00 Outpatient R GEORGE GIL [facility] [id number] [facility] 2019-11-14 14:18:15 2019-11-14 14:37:06 County Manager Visit Lab, [facility] Cr Jennifer Gil [facility] Office Building One 1.0.114 350.1.13.10 4.2.7.2.686 [id number] [id number] [facility] 2019-10-15 13:23:22 2019-10-15 13:43:22 Laboratory Only Lab, [facility] Jennifer Gil [facility] Office Building One 1..114 350.1.13.10 4.2.7.2.686 [id number] 044 [id number] [facility] 2019-10-15 13:20:00 2019-10-15 13:20:00 Outpatient R GEORGE GIL [facility] [id number] [facility] 2019-08-28 09:01:21 2019-08-28 23:59:00 Outpatient R MARY HARLEY [facility] [id number] [facility] 2019-08-28 09:01:00 2019-08-28 23:59:00 Hospital Encounter Mary Harley [facility] 1.114 350.1.13.10 4.2.7.2.686 [id number] [facility] 2019-08-28 08:00:00 2019-08-28 08:00:00 Outpatient R MIYA EDOUARD [facility] [id number] [facility] 2019-08-28 00:00:00 2019-08-28 00:00:00 Telephone Mary Harley [facility] 1.20.114 350.1.13.10 4.2.7.2.686 [id number] [facility] 2019-06-03 13:49:16 2019-06-03 14:41:30 Office Visit George Gil [facility] Office Building One 1.284.114 350.1.13.10 4.2.7.2.686 [id number] 044 [id number] [facility] 2019-06-03 00:00:00 2019-06-03 00:00:00 Letter (Out) George Gil [facility] Office Building One 1.284.114 350.1.13.10 4.2.7.2.686 [id number] 044 [id number] [facility] 2019-06-03 00:00:00 2019-06-03 00:00:00 Telephone George Gil [facility] Office Building One 1.284.114 350.1.13.10 4.2.7.2.686 [id number] [id number] [facility] 2018-12-14 00:00:00 2018-12-14 00:00:00 Orders Only Doctor Unassigned, [place] [facility] 1.284.114 350.1.13.10 4.2.7.2.686 [id number] [facility] 2018-12-04 10:53:20 2018-12-04 11:38:20 Ancillary Visit Sherley Lofton Craig L [facility] Building 1.284.114 350.1.13.10 4.2.7.2.686 [id number] [facility] 2018-11-28 00:00:00 2018-11-28 00:00:00 Telephone Kevin Valadez [facility] Building 1.284.114 350.1.13.10 4.2.7.2.686 [id number] 044 [id number] [facility] 2018-11-25 12:54:02 2018-11-25 16:54:00 Emergency Betito Barroso [facility] 1.2.840.114 350.1.13.10 4.2.7.2.686 [id number] [facility] 2018-11-25 00:00:00 2018-11-25 00:00:00 Orders Only Doctor Unassigned, [place] [facility] 1.2.840.114 350.1.13.10 4.2.7.2.686 [id number] [facility] 2018-11-22 10:57:21 2018-11-22 16:41:21 Ancillary Visit Sherley Lofton Craig L [facility] nal Building 1.2.840.114 350.1.13.10 4.2.7.2.686 [id number] [facility] 2018-11-20 11:02:45 2018-11-20 11:47:45 Ancillary Visit Sherley Lofton Craig L [facility] nal Building 1.2.840.114 350.1.13.10 4.2.7.2.686 [id number] [facility] 2018-11-16 09:44:34 2018-11-16 23:59:00 Hospital Encounter Freddy [facility] Building 1.2.840.114 350.1.13.10 4.2.7.2.686 [id number] [facility] 2018-11-16 09:44:18 2018-11-16 23:59:00 Hospital Encounter Freddy [facility] Building 1.2.840.114 350.1.13.10 4.2.7.2.686 [id number] [facility] 2018-11-16 09:12:01 2018-11-16 10:21:34 Office Visit Freddy [facility] Building 1.2.840.114 350.1.13.10 4.2.7.2.686 [id number] [facility] 2018-11-15 00:00:00 2018-11-15 00:00:00 [facility] 1.2.840.114 350.1.13.10 4.2.7.2.686 [id number] 044 [id number] [facility] 2018-11-13 10:50:44 2018-11-13 11:00:07 Ancillary Visit Fabienne Alexis Carmenceleste JayWhite Malik Boothe [facility] 1.2.840.114 350.1.13.10 4.2.7.2.686 [id number] [facility] Results Test Description Test Time Test Comments Results Result Comments Source DME/SUPPLY JUSTIFICATION 21:28:23 Ordered by an unspecified provider. [facility] US PELVIS COMPLETE WITH TRANSVAGINAL 21:59:57 EXAM: [...] No free fluid in the pelvic cul-de-sac. [facility] CT SOFT TISSUE NECK W CONTRAST 16:10:00 [...] in size, stable since the prior study. [facility] MR LUMBAR SPINE WO CONTRAST 19:43:13 EXAM: [...] adnexal region, the visualizedparts measures [address] [facility] CT MAXILLOFACIAL/MAN DIBLE WO CONTRAST 23:48:15 EXAM: CT MAXILLOFACIAL/MANDIBLE WO [...] unremarkable. The mastoid air cells are clear. [facility]24-[facility] 18:05:38* Test Item Value Reference Range Interpretation Comme nts HGB A1C (test code = 4548-4) 5.3 % 4.0-5.7 MISAEL (test code = MISAEL) Reference RangesNormal: <5.7%Prediabetes: 5.7 - 6.4%Diabetes: > 6.5% Lab Interpretation (test code = 32272-0) Normal [facility]ulating [id number] 17:23:12 * Test Item Value Reference Range Interpretation Comme nts TSH (test code = 5893190607) 1.09 0.45-4.70 Biotin has been reported to cause a negative bias, interpret results relative to patient's use of biotin. Lab Interpretation (test code = 54536-4) Normal [facility] [id number] 17:10:13* Test Item Value Reference Range Interpretation Comme nts FREE T4 (test code = 6365706698) 0.79 0.78-2.20 Lab Interpretation (test cod e = 21716-1) Normal [facility] [id number] 17:09:52* Test Item Value Reference Range Interpretation Comme nts FREE T3 (test code = 3916844595) 3.68 pg/mL 2.77-5.27 Lab Interpretation (test cod e = 58067-5) Normal [facility] Center[facility] (65876)(Total Cholesterol, Triglycerides, HDL)2024-02-01 16:47:08* Test Item Value Reference Range Interpretation Comme nts CHOL (test code = 9266628059) 233 mg/dL 120-200 H HDL (test code = 9916276552) 46 mg/dL >=50 L HDLC RATIO (test code = 4232507481) 5.1 <=4.5 H TRIG (test code = 6522985011) 142 mg/dL 30-170 LDL CHOL (test code = 81189-0) 159 mg/dL <=160 VLDL (test code = 6121951596) 28 mg/dL 5-60 Lab Interpretation (test cod e = 61365-9) Abnormal [facility] CenterSedimentation [id number] 16:15:08* Test Item Value Reference Range Interpretation Comme nts ESR (test code = 36107-8) 16 0-20 Lab Interpretation (test cod e = 26848-8) Normal [facility]oxidase (Tpo) [id number] 00:03:00 * Test Item Value Reference Range Interpretation Comme nts TPO Ab IgG (test code = 4940864920) 15.3 0.0-100.0 MISAEL (test code = MISAEL) [...] and Graves'disease. Lab Interpretation (test code = 90776-0) Normal [facility]-SCL-[id number] 17:51:09* Test Item Value Reference Range Interpretation Comme nts ANTI-SCL70 (test code = 9302232925) Negative Negative MISAEL (test code = MISAEL) Positive - Antibod y detected.Negative - No antibody detected. Lab Interpretation (test code = 26143-0) Normal [facility]-SSA(RO)2024-01-11 17:51:09* Test Item Value Reference Range Interpretation Comme nts ANTI-SSA(RO) (test code = 1485139114) Negative Negative MISAEL (test code = MISAEL) Positive - Antibod y detected.Negative - No antibody detected. Lab Interpretation (test code = 03797-9) Normal [facility]-SM/[id number] 17:50:49* Test Item Value Reference Range Interpretation Comme nts ANTI-SMRNP (test code = 9896924551) Negative Negative MISAEL (test code = MISAEL) Positive - Antibod y detected.Negative - No antibody detected. Lab Interpretation (test code = 08930-4) Normal [facility] [id number] 17:50:49* Test Item Value Reference Range Interpretation Comme nts ANTI-CENTR (test code = 7323428509) Negative Negative MISAEL (test code = MISAEL) Positive - Antibod y detected.Negative - No antibody detected. Lab Interpretation (test code = 45762-2) [facility]-SSB(LA)2024-01-11 17:50:49* Test Item Value Reference Range Interpretation Comme nts Anti-SSB(LA) (test code = 4983142536) Negative Negative MISAEL (test code = MISAEL) Positive - Antibod y detected.Negative - No antibody detected. Lab Interpretation (test code = 55460-1) Normal [facility] [id number] 20:29:51* Test Item Value Reference Range Interpretation Comme nts CRP (test code = 7341119787) 0.6 mg/dL <=0.8 Lab Interpretation (test cod e = 70692-9) Normal [facility] (34764)2024-01-10 19:51:48* Test Item Value Reference Range Interpretation Comme nts NA (test code = 6620221809) 137 mmol/L 135-145 K (test code = 0321367471) 4.6 mmol/L 3.5-5.0 CL (test code = 8624427390) 101 mmol/L 98-108 CO2 TOTAL (test code = 3740565697) 22 mmol/L 23-31 L AGAP (test code = 1822992463) 14 2-16 BUN (test code = 0010249293) 11 mg/dL 7-23 GLUCOSE (test code = 6211034767) 99 mg/dL 70-110 CREATININE (test code = 2160-0) 0.58 mg/dL 0.50-1.04 TOTAL BILI (test code = 5466504606) 0.3 mg/dL 0.1-1.1 CALCIUM (test code = 5841879945) 9.6 mg/dL 8.6-10.6 T PROTEIN (test code = 2868676973) 7.6 g/dL 6.3-8.2 ALBUMIN (test code = 9883073939) 4.7 g/dL 3.5-5.0 ALK PHOS (test code = 5855443841) 47 U/L 34-122 ALTv (test code = 1742-6) 21 U/L 5-35 AST(SGOT) (test code = 5600133395) 20 U/L 13-40 eGFR (test code = 26140-2) 114.6 mL/min/1.73m2 CKD-EPI eGFR (2020). Assuming creatinine has been stable day-to-day for at least three months, the eGFR indicates Category G1 (>= 90 mL/min/1.73 m2) Lab Interpretation (test code = 06915-1) Abnormal [facility] with [id number] 17:48:56* Test Item Value Reference Range Interpretation [...] 33.6 g/dL 31.6-35.1 RDW-SD (test code = 72457-4) 42.4 fL 39.0-49.9 RDW-CV (test code = 788-0) 12.9 % 12.0-15.5 PLT (test code = 777-3) 360 166-358 H MPV (test code = 09065-6) 9.3 fL 9.5-12.9 L NRBC/100 WBC (test code = 3192099989) 0.0 0.0-10.0 NRBC x10^3 (test code = 4684766433) See_Comment [Automated messa ge] The system which generated this result transmitted reference range: 10*3/?L. The reference range was not used to interpret this result as normal/abnormal. GRAN MAT (NEUT) % (test code = 770-8) 68.9 % IMM GRAN % (test code = 8199384904) 0.50 % LYMPH % (test code = 736-9) 22.7 % MONO % (test code = 5905-5) 5.4 % EOS % (test code = 713-8) 1.8 % BASO % (test code = 706-2) 0.7 % GRAN MAT x10^3(ANC) (test code = 8136807959) 5.96 10*3/uL 1.88-7.09 IMM GRAN x10^3 (test code = 3389807685) 0.04 10*3/uL 0.00-0.06 LYMPH x10^3 (test code = 731-0) 1.96 10*3/uL 1.32-3.29 MONO x10^3 (test code = 742-7) 0.47 10*3/uL 0.33-0.92 EOS x10^3 (test code = 711-2) 0.16 10*3/uL 0.03-0.39 BASO x10^3 (test code = 704-7) 0.06 10*3/uL 0.01-0.07 Lab Interpretation (test code = 43830-2) Abnormal [facility] Center[facility]ID STIMULATING [id number] 18:40:31 * Test Item Value Reference Range Interpretation Comme nts TSH (test code = 1553125468) 1.07 See_Comment [Automated messa ge] The system which generated this result transmitted reference range: 0.45 - 4.70 mIU/L. The reference range was not used to interpret this result as normal/abnormal. Lab Interpretation (test code = 49981-3) Normal [facility] [id number] 18:27:10* Test Item Value Reference Range Interpretation Comme nts FREE T4 (test code = 3890879028) 0.93 See_Comment [Automated messa ge] The system which generated this result transmitted reference range: 0.78 - 2.20 ng/dL:. The reference range was not used to interpret this result as normal/abnormal. Lab Interpretation (test code = 47015-8) Normal [facility] [id number] 18:26:49* Test Item Value Reference Range Interpretation Comme nts FREE T3 (test code = 4891949412) 3.75 pg/mL 2.77-5.27 Lab Interpretation (test cod e = 34742-6) Normal [facility] CenterTROPONIN [id number] 18:18:01* Test Item Value Reference Range Interpretation Comme nts TROPONIN I (test code = 0094358260) 0.005 ng/mL <=0.034 MISAEL (test code = [...] of biotin. Lab Interpretation (test code = 24502-3) Normal [facility]. METABOLIC PANEL (28528)2022-12-01 18:08:16* Test Item Value Reference Range Interpretation Comme nts NA (test code = 4585612576) 139 mmol/L 135-145 K (test code = 2759511869) 4.0 mmol/L 3.5-5.0 CL (test code = 5238550374) 106 mmol/L 98-108 CO2 TOTAL (test code = 6307513792) 26 mmol/L 23-31 AGAP (test code = 6319615892) 7 2-16 BUN (test code = 3155115790) 13 mg/dL 7-23 GLUCOSE (test code = 8174098245) 98 mg/dL 70-110 CREATININE (test code = 1948754560) 0.59 mg/dL 0.50-1.04 TOTAL BILI (test code = 4005790456) 0.4 mg/dL 0.1-1.1 CALCIUM (test code = 4541202884) 7.8 mg/dL 8.6-10.6 L T PROTEIN (test code = 9443522739) 6.3 g/dL 6.3-8.2 ALBUMIN (test code = 7767465314) 3.6 g/dL 3.5-5.0 ALK PHOS (test code = 8159424996) 36 U/L 34-122 ALTv (test code = 1742-6) 18 U/L 5-35 AST(SGOT) (test code = 6492765672) 20 U/L 13-40 eGFR (test code = 9182698927) 111.2 mL/min/1.73m2 MISAEL (test code = MISAEL) [...] imaging tests). Lab Interpretation (test code = 55850-2) Abnormal [facility] CenterLIPASE2023-08-17 18:08:01* Test Item Value Reference Range Interpretation Comme nts LIPASE (test code = 9957801881) 50 U/L 0-220 Lab Interpretation (test cod e = 44476-5) Normal [facility] WITH [id number] 17:55:37* Test Item Value Reference Range Interpretation Comme nts WBC (test code = 6690-2) 5.65 See_Comment [Automated messa ge] The system which [...] 33.2 g/dL 31.6-35.1 RDW-SD (test code = 87275-0) 45.7 fL 39.0-49.9 RDW-CV (test code = 788-0) 13.6 % 12.0-15.5 PLT (test code = 777-3) 295 See_Comment [Automated messa ge] The system which generated this result transmitted reference range: 166 - 358 10*3/?L. The reference range was not used to interpret this result as normal/abnormal. MPV (test code = 95758-4) 9.8 fL 9.5-12.9 NRBC/100 WBC (test code = 7251019090) 0.0 See_Comment [Automated me ssage] The system which generated this result transmitted reference range: 0.0 - 10.0 /100 WBCs. The reference range was not used to interpret this result as normal/abnormal. NRBC x10^3 (test code = 9206635713) See_Comment [Automated messa ge] The system which generated this result transmitted reference range: 10*3/?L. The reference range was not used to interpret this result as normal/abnormal. GRAN MAT (NEUT) % (test code = 770-8) 66.5 % IMM GRAN % (test code = 6343846285) 0.20 % LYMPH % (test code = 736-9) 24.6 % MONO % (test code = 5905-5) 5.3 % EOS % (test code = 713-8) 2.7 % BASO % (test code = 706-2) 0.7 % GRAN MAT x10^3(ANC) (test code = 0109328023) 3.76 10*3/uL 1.88-7.09 IMM GRAN x10^3 (test code = 3731772521) 0.00-0.06 LYMPH x10^3 (test code = 731-0) 1.39 10*3/uL 1.32-3.29 MONO x10^3 (test code = 742-7) 0.30 10*3/uL 0.33-0.92 L EOS x10^3 (test code = 711-2) 0.15 10*3/uL 0.03-0.39 BASO x10^3 (test code = 704-7) 0.04 10*3/uL 0.01-0.07 Lab Interpretation (test code = 08138-3) Abnormal [facility] CenterHANS [id number] 20:08:39* Test Item Value Reference Range Interpretation Comme nts TROPONIN I (test code = 5025138449) 0.001 ng/mL <=0.034 MISAEL (test code = [...] of biotin. Lab Interpretation (test code = 91259-6) Normal [facility] CenterN-TERMINAL [id number] 20:05:00* Test Item Value Reference Range Interpretation Comme nts NT-proBNP (test code = 2019152258) 76 pg/mL <=125 MISAEL (test code = MISAEL) Biotin has been reported to cause a negative bias, interpret results relative to patient's use of biotin. Lab Interpretation (test code = 22821-2) Normal [facility] METABOLIC PANEL (12203)2022-09-28 19:54:36* Test Item Value Reference Range Interpretation Comme nts NA (test code = 7727160820) 138 mmol/L 135-145 K (test code = 1769748253) 3.8 mmol/L 3.5-5.0 CL (test code = 9857763965) 103 mmol/L 98-108 CO2 TOTAL (test code = 8450963560) 24 mmol/L 23-31 AGAP (test code = 7480814466) 11 2-16 BUN (test code = 7579167692) 14 mg/dL 7-23 GLUCOSE (test code = 9101807548) 98 mg/dL 70-110 CREATININE (test code = 9983130489) 0.66 mg/dL 0.50-1.04 TOTAL BILI (test code = 6681134308) 0.5 mg/dL 0.1-1.1 CALCIUM (test code = 1514415826) 9.6 mg/dL 8.6-10.6 T PROTEIN (test code = 2573454270) 7.4 g/dL 6.3-8.2 ALBUMIN (test code = 0894283442) 4.5 g/dL 3.5-5.0 ALK PHOS (test code = 9301951134) 60 U/L 34-122 ALTv (test code = 1742-6) 17 U/L 5-35 AST(SGOT) (test code = 9163346347) 19 U/L 13-40 eGFR (test code = 3302218080) 97.7 mL/min/1.73m2 MISAEL (test code = MISAEL) [...] or urine or abnormalities in imaging tests). [facility] CenterPO[facility] [id number] 19:44:00* Test Item Value Reference Range Interpretation Comme [facility] POCT PREG (test code = 1605) Negative On board controls acceptable with C Line (test code = 3574) Yes POCT PREG LOT # (test code = 3575) [id number] POCT PREG TEST DATE ( test code = 3576) 01-21-2024 Lab Interpretation (test cod e = 80604-4) Normal [facility] CenterACTIVATED PARTIAL THRMPLAS [id number] 19:40:13* Test Item Value Reference Range Interpretation Comme [facility] APTT Patient (test code = 3173-2) 30 See_Comment [Automated message] The system which generated this result transmitted reference range: 23 - 38 Seconds. The reference range was not used to interpret this result as normal/abnormal. MISAEL (test code = MISAEL) [facility] patient population mean normal value for aPTT is 30 seconds. Lab Interpretation (test code = 75429-5) Normal [facility] CenterPROTHROMBIN TIME / [id number] 19:38:12* Test Item Value Reference Range Interpretation Comme nts PROTIME PATIENT (test code = 5964-2) 14.4 See_Comment [Automated messa ge] The system which generated this result transmitted reference range: 12.0 - 14.7 Seconds. The reference range was not used to interpret this result as normal/abnormal. INR (test code = 6301-6) 1.2 Normal INR <1.1; Warfarin Therapeutic range 2.0 to 3.0 or 2.5 to 3.5, depending upon the indications. Lab Interpretation (test code = 20807-2) Normal [facility] CenterCBC WITH [id number] 19:26:08* Test Item Value Reference Range Interpretation [...] 34.5 g/dL 31.6-35.1 RDW-SD (test code = 94300-2) 40.5 fL 39.0-49.9 RDW-CV (test code = 788-0) 12.7 % 12.0-15.5 PLT (test code = 777-3) 347 See_Comment [Automated messa ge] The system which generated this result transmitted reference range: 166 - 358 10*3/?L. The reference range was not used to interpret this result as normal/abnormal. MPV (test code = 27728-9) 9.6 fL 9.5-12.9 NRBC/100 WBC (test code = 8506382513) 0.0 See_Comment [Automated me ssage] The system which generated this result transmitted reference range: 0.0 - 10.0 /100 WBCs. The reference range was not used to interpret this result as normal/abnormal. NRBC x10^3 (test code = 6157690478) See_Comment [Automated messa ge] The system which generated this result transmitted reference range: 10*3/?L. The reference range was not used to interpret this result as normal/abnormal. GRAN MAT (NEUT) % (test code = 770-8) 74.1 % IMM GRAN % (test code = 8215161126) 0.80 % LYMPH % (test code = 736-9) 18.8 % MONO % (test code = 5905-5) 5.1 % EOS % (test code = 713-8) 0.6 % BASO % (test code = 706-2) 0.6 % GRAN MAT x10^3(ANC) (test code = 6998813373) 4.93 10*3/uL 1.88-7.09 IMM GRAN x10^3 (test code = 2281883370) 0.05 10*3/uL 0.00-0.06 LYMPH x10^3 (test code = 731-0) 1.25 10*3/uL 1.32-3.29 L MONO x10^3 (test code = 742-7) 0.34 10*3/uL 0.33-0.92 EOS x10^3 (test code = 711-2) 0.04 10*3/uL 0.03-0.39 BASO x10^3 (test code = 704-7) 0.04 10*3/uL 0.01-0.07 Lab Interpretation (test code = 78510-4) Abnormal [facility]. METABOLIC PANEL (75783)2022-02-03 14:01:08* Test Item Value Reference Range Interpretation Comme nts NA (test code = 6651363169) 140 mmol/L 135-145 K (test code = 9358223238) 4.0 mmol/L 3.5-5 CL (test code = 9073821849) 104 mmol/L 98-108 CO2 TOTAL (test code = 1690737615) 22 mmol/L 23-31 L AGAP (test code = 7405554638) 2-16 BUN (test code = 1780886910) 17 mg/dL 7-23 GLUCOSE (test code = 9515682544) 118 mg/dL 70-110 H CREATININE (test code = 0175959326) 0.58 mg/dL 0.5-1.04 TOTAL BILI (test code = 4439521667) 0.3 mg/dL 0.1-1.1 CALCIUM (test code = 4037418252) 9.5 mg/dL 8.6-10.6 T PROTEIN (test code = 5889588337) 7.2 g/dL 6.3-8.2 ALBUMIN (test code = 7050980131) 4.5 g/dL 3.5-5 ALK PHOS (test code = 8172149591) 54 U/L 34-122 ALTv (test code = 1742-6) 28 U/L 5-35 AST(SGOT) (test code = 0855993075) 21 U/L 13-40 eGFR (test code = 9669895674) mL/min/1.73m2 MISAEL (test code = MISAEL) Association [...] imaging tests). Lab Interpretation (test code = 05630-4) Abnormal [facility] WITH [id number] 13:50:24* Test Item Value Reference Range Interpretation Comme nts WBC (test code = 6690-2) See_Comment [Automated N42] The system which generated this result transmitted reference range: 4.30 - 11.10 10*3/?L. The reference range was not used to interpret this result as normal/abnormal. RBC (test code = 789-8) See_Comment [Automated N42] The system which generated this result transmitted [...] 33.9 g/dL 31.6-35.1 RDW-SD (test code = 08174-0) 42.5 fL 39-49.9 RDW-CV (test code = 788-0) 13.2 % 12-15.5 PLT (test code = 777-3) See_Comment H [Automated N42] The system which generated this result transmitted reference range: 166 - 358 10*3/?L. The reference range was not used to interpret this result as normal/abnormal. MPV (test code = 62371-4) 9.2 fL 9.5-12.9 L NRBC/100 WBC (test code = 6613101314) See_Comment [Automated me ssage] The system which generated this result transmitted reference range: 0.0 - 10.0 /100 WBCs. The reference range was not used to interpret this result as normal/abnormal. NRBC x10^3 (test code = 1995684761) See_Comment [Automated messa ge] The system which generated this result transmitted reference range: 10*3/?L. The reference range was not used to interpret this result as normal/abnormal. GRAN MAT (NEUT) % (test code = 770-8) 77.7 % IMM GRAN % (test code = 6790292261) 0.30 % LYMPH % (test code = 736-9) 15.5 % MONO % (test code = 5905-5) 5.0 % EOS % (test code = 713-8) 1.1 % BASO % (test code = 706-2) 0.4 % GRAN MAT x10^3(ANC) (test code = 9336918050) 5.48 10*3/uL 1.88-7.09 IMM GRAN x10^3 (test code = 9922098741) 0-0.06 LYMPH x10^3 (test code = 731-0) 1.09 10*3/uL 1.32-3.29 L MONO x10^3 (test code = 742-7) 0.35 10*3/uL 0.33-0.92 EOS x10^3 (test code = 711-2) 0.08 10*3/uL 0.03-0.39 BASO x10^3 (test code = 704-7) 0.03 10*3/uL 0.01-0.07 Lab Interpretation (test code = 43167-5) Abnormal [facility] History and Physical Notes Date/Time Note Provider Source 2024-03-04 16:51:56 Consult/Referral Fibroids, submucosal - CONSULT/REFERRAL ENTERPRISE ANALYST Gynecology Renal cyst, acquired, left - Consult/Referral Nephrology [facility] 2024-02-23 11:00:00 Imaging with Consult/Referral Adnexal cyst - US ABDOMEN COMPLETE; Future - CONSULT/REFERRAL ENTERPRISE ANALYST Gynecology [facility] Notes Date/Time Note Provider Source 2024-12-16 10:45:51 Form sign, faxed and confirmation received. Formerly [facility] 2024-12-09 09:46:39 Images from the original note were not included. Requested Renewals Name from pharmacy: Tizanidine 2mg Tablet Will file in chart as: TIZANIDINE 2 mg tablet Sig: Take 1 tablet by mouth every 8 hours as needed for Pain (scale 4-6). Disp: 90 tablet (Pharmacy requested: 90 Each) Refills: 0 (Pharmacy requested: Not specified) Start: 12/09/2024 Class: eRX Non-formulary For: Arthritis, multiple joint involvement; Degenerative disc disease at L5-S1 level; Lumbar radiculopathy, chronic; S/P lumbar discectomy; Chronic pain of right knee; Pain and swelling of knee, right; Numbness and tingling of right arm and leg; Chronic bilateral low back pain with right-sided sciatica Last ordered: 3 weeks ago (11/12/2024) by Perla Upton NP Last refill: 11/13/2024 Rx #: [id number] Provider Review Required Bzhlur5412/09/2024 06:04 AM Protocol Details This refill cannot be delegated Valid encounter within last 12 months To be filled at: [facility] [address] [facility] AT [address] 08-07-2024 NOV 01-15-2025 Formerly [facility] 2024-12-06 10:03:48 Patient is established with psychiatry FM-FAMILY MEDICINE STAFF [facility] 2024-12-06 08:31:01 Images from the original note were not included. Requested Renewals Name from pharmacy: Sertraline 100mg Tablet Will file in chart as: SERTRALINE 100 mg tablet The original prescription was discontinued on 10/08/2024 by Yaz Evangelista LVN for the following reason: Reorder. Renewing this prescription may not be appropriate. Sig: Take 1 tablet by mouth in the morning. Disp: 30 tablet (Pharmacy requested: 30 Each) Refills: 1 (Pharmacy requested: Not specified) Start: 12/06/2024 Class: eRX For: Moderately severe recurrent major depression, Generalized anxiety disorder with panic attacks, Social anxiety disorder, PTSD (post-traumatic stress disorder) Last ordered: 4 months ago (08/07/2024) by Miya Edouard MD Last refill: 11/03/2024 Rx #: [id number] Psychiatry: Antidepressants Yvabmw0112/06/2024 06:00 AM Protocol Details Manual Review: Verify no changes in dose in the last 3 months Valid encounter within last 12 months To be filled at: [address] [facility] 08-07-2024 NOV 01-15-2025 [facility] 2024-11-14 08:58:38 [employer] message sent. Octavia Paige MA [facility] 2024-11-13 23:44:42 Medication has been refilled by another provider Medication meloxicam 7.5 mg tablet (Order [id number]) Order Information Date and Time Ordering Department Ordering/Authorizing 11/12/2024 1:16 PM Neurosurg Faculty[facility] Alyce Garza FNP Outpatient Medication Detail Disp Refills Start End JEREMY meloxicam 7.5 mg tablet 30 tablet 1 11/12/2024 -- No Sig: Take 1 tablet by mouth in the morning. Sent to pharmacy as: meloxicam 7.5 mg tablet (MOBIC) Class: eRX Route: Oral Order: [id number] Date/Time Signed: 11/12/2024 13:16 E-Prescribing Status: Receipt confirmed by pharmacy (11/12/2024 1:16 PM CDT) Associated Diagnoses Chronic bilateral low back pain with right-sided sciatica Order Associated Providers Name NPI Ordering Provider Alyce Garza FNP [[id number]] [id number] Authorizing Provider Alyce Garza FNP [[id number]] [id number] Encounter Supervising Provider Miya Gaines MD [[id number]] [id number] Pharmacy [facility] [address] AT [facility] & [address] [facility] TECHNICIAN-FAMILY MIDLEVEL PROVIDER [facility] 2024-11-13 08:11:50 Forms placed in providers folder pending signature. [facility] 2024-11-13 08:06:32 Images from the original note were not included. Forms placed in nurse folder. Melissa Marroquin [facility] 2024-11-12 16:03:37 Images from the original note were not included. Routed to provider for review. Unable to refill per ambulatory refill guidelines. Notes: tiZANidine 2 mg tablet Sig: N/A Disp: 90 tablet Refills: 0 Start: 11/12/2024 Class: eRX Non-formulary For: Arthritis, multiple joint involvement; Degenerative disc disease at L5-S1 level; Lumbar radiculopathy, chronic; S/P lumbar discectomy; Chronic pain of right knee; Pain and swelling of knee, right; Numbness and tingling of right arm and leg; Chronic bilateral low back pain with right-sided sciatica Last ordered: 1 year ago (08/01/2023) by Paul Nash MD Provider Review Required Amyfiu0411/12/2024 12:17 PM Protocol Details This refill cannot be delegated Valid encounter within last 12 months To be filled at: [facility] [place] - [address] & [place] [address] Last Refilled: 08/01/23 Recent Visits Date Type Provider Dept 08/07/24 Office Visit Miya Edouard MD [facility] 01/25/24 Office Visit Miya Edouard MD [facility] Showing recent visits within past 540 days with a meds authorizing provider and meeting all other requirements Future Appointments Date Type Provider Dept 01/15/25 Appointment Miya Edouard MD [facility] Showing future appointments within next 150 days with a meds authorizing provider and meeting all other requirements Octavia Paige MA [facility] 2024-11-12 15:59:51 Images from the original note were not included. Routed to provider for review. Unable to refill per ambulatory refill guidelines. Notes: Requested Renewals gabapentin 100 mg capsule Sig: Take 1 capsule by mouth in the morning and 1 capsule at noon and 1 capsule in the evening. Disp: 180 capsule Refills: 1 Start: 11/12/2024 Class: eRX Non-formulary For: Arthritis, multiple joint involvement; Lumbar radiculopathy, chronic; Primary osteoarthritis of right knee; Foraminal stenosis of lumbar region; Anterolisthesis of lumbar spine; Degenerative disc disease at L5-S1 level; S/P lumbar discectomy; Spondylosis of lumbar region without myelopathy or radiculopathy; Chronic bilateral low back pain with right-sided sciatica; Bulging lumbar disc; Numbness and tingling of right arm and leg; Chronic pain of right knee Last ordered: 3 months ago (08/07/2024) by Miya Edouard MD Neuropathic Pain Qfcmup6911/12/2024 12:06 PM Protocol Details Manual Review: Verify no changes in dose in the last 3 months Valid encounter within last 12 months To be filled at: [facility] [place] - [place], [place] - [address] [place] [address] Drive AT [address] Last Refilled: 08/07/24 Recent Visits Date Type Provider Dept 08/07/24 Office Visit Miya Edouard MD [facility] 01/25/24 Office Visit Miya Edouard MD [facility] Showing recent visits within past 540 days with a meds authorizing provider and meeting all other requirements Future Appointments Date Type Provider Dept 01/15/25 Appointment Miya Edouard MD [facility] Showing future appointments within next 150 days with a meds authorizing provider and meeting all other requirements Octavia Paige MA [facility] 2024-11-12 12:20:44 Notes: Routed to the provider to review,last refilled by another provider. Last OV 08/07/24 Last Refilled: 09/17/24 Patient has Hx of arthritis, lumbar radiculopathy, primary OA right knee, foraminal stenosis, anterolisthesis of lumbar spine, syncope and collapse, knee buckling, left, DDD At L5-S1, S/P lumbar discectomy, spondylosis, chronic bilateral low back pain, bulging lumbar disc, gait instability, reduced mobility, numbness and tingling of right arm and leg, chronic pain of right knee. . Stable. Ambulates with rollator. She is on acetaminophen 650 mg PRN, duloxetine 20 mg BID, Voltaren QID, lidocaine BIDPRN, meloxicam 7.5 mg qAM, tizanidine 2 mg PRN and gabapentin BID. Established with rheumatology. Requesting DME for rollator and motorized wheelchair/manual wheelchair if possible to use to get around home, states nerve damage from spinal surgery. Reports not recovering well. States mobility has been getting worse, unstable, shaky, needs help with ADL. Reports grinding and shifting in area of surgery. Reports numbness and tingling, in lower legs from waist down. She was seen by external ortho, would like to see other provider. She is not wanting to do surgery again. States she is always in pain. Needs refill of gabapentin. Not established with pain medicine. Requesting to start tramadol. Recent Visits Date Type Provider Dept 08/07/24 Office Visit Miya Edouard MD [facility] 01/25/24 Office Visit Miya Edouard MD [facility] Showing recent visits within past 540 days with a meds authorizing provider and meeting all other requirements Future Appointments Date Type Provider Dept 01/15/25 Appointment Miya Edouard MD [facility] Showing future appointments within next 150 days with a meds authorizing provider and meeting all other requirements Medication MELOXICAM 7.5 mg tablet (Order [id number]) Order Information Date and Time Ordering Department Ordering/Authorizing 09/17/2024 3:08 PM [facility] Spine Noni Garcia FNP Outpatient Medication Detail Disp Refills Start End JEREMY MELOXICAM 7.5 mg tablet 30 tablet 1 09/17/2024 -- No Sig: TAKE ONE (1) TABLET(S) BY MOUTH IN THE MORNING. Sent to pharmacy as: meloxicam 7.5 mg tablet (MOBIC) Class: eRX Order: [id number] Date/Time Signed: 09/17/2024 15:08 E-Prescribing Status: Receipt confirmed by pharmacy (09/17/2024 3:08 PM CDT) Renewals Renewal provider: Alyce Garza FNP Julisa Cantu MA [facility] 2024-11-12 12:07:50 Copied from [facility] #[id number]. Topic: Clinical - Medical Advice >> Nov 12, 2024 12:06 PM Patient Undercutter wrote: Octavia Dawson is a 44 year old female is calling to request Dr Edouard refill meloxicam 7.5 mg tablet (MOBIC) Please advise [phone] (home) [facility] [place], [place] - [address] [place] [address] Dr [address] [place] [id number] Jadon Coreyford [facility] 2024-11-05 08:56:51 Images from the original note were not included. Melissa Marroquin [facility] 2024-11-01 14:40:20 Chart notes have been signed and faxed. Confirmation report received. T [facility] 2024-10-31 09:31:22 Contacted brady with andre for clarification. Brady states they are needing the patients chart notes form 08/07/2024 signed by the provider and faxed over. Notes on providers desk pending signature. T [facility] 2024-10-30 16:01:58 Attempted to call brady with Andre, no answer, LVM to call back. Orders through suture sign has been signed. We need more clarification on what needs to be done. [facility] 2024-10-30 15:01:26 Brady with Andre calling to follow up on current progress notes of Dr eastman. They did get the notes back but with no signature. They would like the re done and sent back fax:[phone] Sandra Padron [facility] 2024-10-25 14:51:40 Forwarding to nurse pool. Melissa Marroquin [facility] 2024-10-25 14:48:16 Please route to correct department Jennifer Yen MA [facility] 2024-10-25 14:26:48 Brady Dooley is calling stating that the OVN that were sent did not have provider signature and he is needing it signed by the provider Ashanti Antonio [facility] 2024-10-22 16:16:20 Suture sign forms have been approved and are pending providers signature. [facility] 2024-10-22 12:53:16 Brady Dooley is calling about power wheelchair orders sent through suture sign on 10/11/24. Same is asking that the orders be reviewed and signed as soon as possible please. Edith Bueno [facility] 2024-09-27 11:12:01 Noted Julisa Cantu MA 09/27/2024 11:12 AM Julisa Cantu MA [facility] 2024-09-27 11:07:05 Juan F, The Wegovy was not approved by insurance. Per insurance, Wegovy is only covered in patients with peripheral artery disease, a prior NH, or a prior stroke. I did send a message to Ms. Dawson to go over this determination. Please let me know if there are any questions or concerns. Thank you Sabrina Roa CPhT [facility] 2024-09-24 17:06:12 Per patient, Wegovy is covered with a prior authorization sent to phone: [phone] or fax: [phone]. Prediabetes (Primary) - Complicated by Hx BMI 39.0-39.9,adult - semaglutide, weight loss, (WEGOVY) 0.25 mg/0.5 mL PnIj SC injection; Start: 0.25mg SC qWeek x 4 Weeks; then 0.5mg SC qWeek x 4 Weeks; then 1mg SC qWeek x 4 Weeks; thes1.7mg SC qWeek x 4 Weeks; then 2.4mg qWeek. Dispense: 2 mL; Refill: 0 - semaglutide, weight loss, (WEGOVY) 0.5 mg/0.5 mL PnIj SC injection; Start: 0.25mg SC qWeek x 4 Weeks; then 0.5mg SC qWeek x 4 Weeks; then 1mg SC qWeek x 4 Weeks; thes1.7mg SC qWeek x 4 Weeks; then 2.4mg qWeek. Dispense: 2 mL; Refill: 0 - semaglutide, weight loss, (WEGOVY) 1 mg/0.5 mL PnIj SC injection; Start: 0.25mg SC qWeek x 4 Weeks; then 0.5mg SC qWeek x 4 Weeks; then 1mg SC qWeek x 4 Weeks; thes1.7mg SC qWeek x 4 Weeks; then 2.4mg qWeek. Dispense: 2 mL; Refill: 0 Miya Edouard MD, MPH, [facility] Antenna Rigger Mandarin Speaking Nanny, Department of Family Medicine [facility] [place] 09/24/2024 5:08 PM Future Appointments In 1 week Shante Pleitez OT [facility] Physical/Occupational Rehab, [facility] In 1 week Nurse, Adc [facility] Adult & Geriatric Primary Care, [facility] In 2 weeks Alice Armstrong MD [facility] Psychiatry, PCP [facility] Care In 1 month Loki Hayes MD [facility] Neurosurgery Spine Care, [facility], [facility] [place] In 1 month Miya Edouard MD [facility], [facility] In 2 months Niki Aviles MD [facility] Dermatology, [facility] 2024-09-23 13:13:35 Referral faxed, confirmation received. Julisa Cantu MA 09/23/2024 1:28 PM [facility] 2024-09-18 09:24:52 Spoke to patient, verified name and . Let patient know we need information on the location she needs the referral sent to. Patient stated she will call her insurance to get a list and what location accepts her insurance and she will CB. Julisa Cantu MA 09/18/2024 9:28 AM Julisa Cantu MA [facility] 2024-09-17 21:48:38 Okay to convert order to aquatic therapy. T [facility] 2024-09-17 14:24:01 Per physical therapist recommend patient to do Aquatic therapy instead of Land therapy. Routing to provider to place order for Aquatic therapy. Patient was also checking status on PA for Gabapentin. Informed patient medication was approved and will contact pharmacy to dispense medication. [facility] 2024-09-17 14:04:14 Octavia Dawson is a 44 year old female Pt returning clinic call. Please advise. Laurence Conway [facility] 2024-09-17 13:36:52 Attempt to return patient phone call, no answer, LVM to call back. T [facility] 2024-09-17 11:23:54 Octavia Dawson is a 44 year old female and the pt is returning call from [place]. Please contact and advise. Sandy Francisco [facility] 2024-09-17 11:18:22 Attempted to call patient, no answer, LVM to call back. T [facility] 2024-09-17 10:43:10 Pt said that her physical therapy provider had sent something to Dr Edouard on 09/06/24 for a referral for pt to have aquatic therapy and is checking the status on it. Pt would be seen for a initial visit due to nerve damage due to spine surgery. Pt is requesting recommendations by Dr Edouard for the aquatic therapy and would like in [place] if possible. Pt is requesting within [facility]. NPI# unavailable PH# unavailable FAX unavailable Diagnosis code: unavailable Appt date: unavailable Betty Payan [facility] 2024-09-17 10:37:45 Pt is following up on the PA for the gabapentin 100 mg capsule. HEB in [place] Betty Payan [facility] 2024-08-07 16:22:49 PA submitted, waiting for determination. [facility] 2024-08-07 14:20:51 Images from the original note were not included. Yuli Maurice [facility] 2024-05-20 14:05:20 Images from the original note were not included. Refill request refilled per ambulatory refill guidelines. Notes: Name from pharmacy: Pantoprazole 20mg DR Tablet Will file in chart as: PANTOPRAZOLE 20 mg EC tablet Sig: TAKE ONE (1) TABLET(S) BY MOUTH EVERY MORNING. Disp: 90 tablet (Pharmacy requested: 90 Each) Refills: 0 (Pharmacy requested: Not specified) Start: 05/19/2024 Class: eRX For: Gastroesophageal reflux disease without esophagitis Last ordered: 2 months ago (02/21/2024) by Miya Edouard MD Last refill: 02/21/2024 Rx #: [id number] Gastroenterology: Antiulcer - Proton Pump Inhibitors Tkthlj8605/19/2024 06:04 AM Protocol Details Valid encounter within last 12 months To be filled at: [facility] [place], [place] - [address] AT [address] Last Refilled: 02/21/2024 Recent Visits Date Type Provider Dept 01/25/24 Office Visit Miya Edouard MD [facility] 01/04/23 Office Visit Miya Edouard MD [facility] Showing recent visits within past 540 days with a meds authorizing provider and meeting all other requirements Future Appointments Date Type Provider Dept 05/28/24 Appointment Miya Edouard MD [facility] Showing future appointments within next 150 days with a meds authorizing provider and meeting all other requirements OR BUYER Octavia Paige MA [facility] 2024-05-09 09:04:06 Images from the original note were not included. Medical records received [facility] placed in Dr. Edouard folder for review. OR BUYER Yuli Maurice [facility] 2024-04-22 14:46:16 Called patient, no answer. Left message with call back number. EEN Velazquez LVN [facility] 2024-04-22 11:46:28 Called patient, no answer. Left message with call back number. [facility] 2024-04-22 11:22:36 Called patient to let her know that CT neck came back clear and she does not need to see Dr. Young . If patient calls back please let her know she can cancel appt if she would like. Marybeth Jiménez PA-C [facility] Department of Otolaryngology [phone] OR BUYER PA-PHYSICIAN BOARD HAMMER OPERATOR MIDLEVEL PROVIDER [facility] 2024-03-05 11:29:55 My apologies. Message forwarded to ordering provider: Olamide Kramer MD. *Patient would like ultrasound results* OR BUYER Olesya Ospina RN [facility] 2024-03-05 11:13:26 I do not see that I have seen this patient. I did not order any imaging. [facility] OG-OBSTETRICS & GYNECOLOGY STAFF [facility] 2024-03-05 11:06:12 Patient would like to discuss Ultrasound results, not CT Scan results. ENTERPRISE ANALYST TEAM- Can someone please reach out to Octavia Dawson to discuss ultrasound results? This call got routed the wrong way. Thank you, Olesya Ospina, RN [facility] 2024-03-04 16:53:[address] scan results. Please F/u [facility] Guanaco Noonan [facility] 2024-03-04 09:15:00 US reviewed and noted, showed 3.9 cm complex left, likely hemorrhagic cyst. Follow-up ultrasound in one to two cycles could be performed. Small submucosal fibroid. IUD with appropriate placement in the endometrial cavity. Need for further work-up. Consult/Referral completed to Nephrology and Toshia/O And M Supervisor [facility] 2024-03-01 09:08:41 Abundio Postural orthostatic tachycardia syndrome (POTS)/ Lumbar radiculopathy, chronic/Foraminal stenosis of lumbar region/ Arthritis, multiple joint involvement/Degenerative disc disease at L5-S1 level - ID ABUNDIO/LICENSE PLATE [facility] 2024-02-29 11:18:29 The prior authorization for Tin has been submitted through [facility]. An update will be provided once a determination is made. [facility] [place]: [id number] Thank you, Jeni Abel EEN eSrna [facility] 2024-02-27 16:54:31 Name and verified, pt has an ultrasound for an ovarian cyst per Dr. Edouard, advised pt once his office reviews the results she will know if she needs to be seen in our office. Appt made for 03/12, if results do not need follow up pt will call to cancel. Betty Paige RN 02/27/2024 4:56 PM OR BUYER Betty Paige RN [facility] 2024-02-27 16:47:55 Pt calling back Please advise Thank you EEN Ramos [facility] 2024-02-27 16:41:24 Attempted to reach pt, no answer, left a vm Betty Paige RN 02/27/2024 4:41 PM [facility] 2024-02-27 14:55:43 The patient has a STAT referral for an adnexal cyst and Have an ultrasound on March 04. The patient would like to schedule an appointment to discuss the results after the ultrasound, ensuring that the results are available prior to the appointment. The earliest available appointment is on March [address] Meraz. EEN Srinivasan [facility] 2024-02-23 11:00:00 Images from the original note were not included. Venipuncture collection performed by clean technique on the left anticubitus. Total of 1 attempts were made. Slight pressure and a bandage/dressing were applied to the site(s). The patient experienced no complications. The following specimens were processed according to instructions and sent to [facility] laboratories per lab order on 02/23/2024 : LT BLUE SST 1 RED LAV 1 PPT DK GREEN (LiHep) 2 DK GREEN (SodH) HENDRIX DK BLUE (K2) DK BLUE (S) ACD Blood Culture NIPT/NTD [facility] Gene Hunt [facility] 2024-02-23 11:00:00 Addended by: MIYA EDOUARD on: 02/24/2024 07:55 PM Modules accepted: Orders [facility] 2024-02-21 16:43:36 Consult/Referral Lymphadenopathy, cervical/Tenderness of lymph node - Consult/Referral ENT [facility] 2024-02-14 16:47:17 Appt dilcia for 02/23/24 Belen Guerrero [facility] 2024-02-14 15:42:57 Octavia Dawson is a 43 year old female Pt is requesting call back in ref to scheduling sooner appt for skin condition,next available appt is June 2024 Pt can be reached at [phone] Thank you Verenice Pitts [facility] 2024-02-12 16:20:00 The paranasal sinuses and drainage pathways are clear. [facility] 2024-02-12 09:09:47 Hidradenitis suppurativa [L73.2] - Primary Hidradinitis Supparitiva Referral previously placed 2021, referral has been renewed. Pt aware and referral line number given. Recent Visits Date Type Provider Dept 01/25/24 Office Visit Miya Edouard MD [facility] 01/04/23 Office Visit Miya Edouard MD [facility] 10/04/22 Office Visit Miya Edouard MD [facility] Showing recent visits within past 540 days with a meds authorizing provider and meeting all other requirements Future Appointments Date Type Provider Dept 04/26/24 Appointment Miya Edouard MD [facility] Showing future appointments within next 150 days with a meds authorizing provider and meeting all other requirements [facility] 2024-02-09 12:45:17 Rerouting message to nurse pool. Melissa Marroquin [facility] 2024-02-09 06:52:44 Octavia Dawson is a 43 year old female Pt is requesting a referral to dermatology for HS condition, had requested x 2 times via Rheumatology, but no response. Thanks Winnie Catalan [facility] 2024-02-06 09:44:22 I did not see any mention of derm either. I will reach out to the pt.about the request. Thank you. Chrissie Akins LVN [facility] 2024-02-02 16:51:45 Meds increased, rx. Sent to pharmacy Please follow up with PCP for continued care and management. [facility] 2024-02-01 16:24:47 I apologize I don't recall discussing a dermatology referral and there is no mention of this in my chart note. Please ask patient for the reason she would like a referral to dermatology. PA-PHYSICIAN BOARD HAMMER OPERATOR MIDLEVEL PROVIDER [facility] 2024-02-01 16:17:05 Norma Trejo3 hours ago (12:37 PM) KW Octavia Dawson is a 43 year old female Pt calling stating she needs a referral to dermatology. Pt states Dr. Mendez stated she was going to place one per her last visit with her. Original encounter 01/29 closed but no referral submitted. Pt needing this as soon as possible. Please call [phone] (home) Note This is a message from the pt. Above,would you like me to put in a referral for Derm.? Please let me know its no problem. Thank you. Chrissie Akins LVN [facility] 2024-02-01 12:35:26 Octavia Dawson is a 43 year old female Pt calling stating she needs a referral to dermatology. Pt states Dr. Mendez stated she was going to place one per her last visit with her. Original encounter 01/29 closed but no referral submitted. Pt needing this as soon as possible. Please call [phone] (home) Norma Trejo [facility] 2024-02-01 10:00:00 Images from the original note were not included. Venipuncture collection performed by clean technique on the left anticubitus. Total of 1 attempts were made. Slight pressure and a bandage/dressing were applied to the site(s). The patient experienced no complications. The following specimens were processed according to instructions and sent to [facility] laboratories per lab order on 02/01/2024: LT BLUE SST 2 RED LAV 2 PPT DK GREEN (LiHep) DK GREEN (SodH) HENDRIX DK BLUE (K2) DK BLUE (S) ACD Blood Culture NIPT/NTD [facility] 2024-01-30 16:24:05 Consult/Referral Spondylosis of lumbar region without myelopathy or radiculopathy S/P lumbar discectomy - Consult/Referral Neurosurgery: Spine [facility] 2024-01-30 15:52:19 Images from the original note were not included. Requested Renewals vitamin C with jacob hips (VITAMIN C) 1,000 mg tablet Sig: Take 1 tablet by mouth in the morning. Disp: 30 tablet Refills: 1 Start: 01/30/2024 Class: eRX Non-formulary For: URI with cough and congestion Last ordered: 4 years ago (01/01/2020) by Miya Edouard MD Vitamins Myxtto2801/30/2024 03:00 PM Protocol Details Valid encounter within last 12 months To be filled at: [address] AT [address] [facility] 01-25-2024 Chichi Holly MA [facility] 2024-01-30 15:51:18 Images from the original note were not included. Requested Renewals Melatonin 5 mg Cap Sig: Take 1 capsule by mouth at bedtime as needed for Insomnia. Disp: 30 capsule Refills: 5 Start: 01/30/2024 Class: eRX Non-formulary For: Primary insomnia Last ordered: 1 year ago (01/04/2023) by Miya Edouard MD Over the Counter: OTC [id number]/30/2024 02:58 PM Protocol Details Valid encounter within last 12 months To be filled at: [facility] [place], [place] - [address] [place] [address] Drive [address] 01-25-2024 NOV 04-26-2023 Chichi Holly MA [facility] 2024-01-30 15:09:30 Octavia Dawson is a 43 year old female Pt states she needs to see a intranet specialist and states there was a referral sent last year. Did not see referral in chart and is requesting that a referral be sent for neurosurgery. Please advise. Lisbeth Ramos [facility] 2024-01-30 15:06:48 Octavia Dawson is a 43 year old female Pt states that a referral for dermatology was supposed to be placed and is not in her chart. Please advise. Lisbeth Ramos [facility] 2024-01-29 12:19:54 Attempted to call patient, no answer, Left brief VM. Referral has been faxed. Chichi Holly MA [facility] 2024-01-29 11:56:16 Consult/Referral Routine eye exam - CONSULT/REFERRAL OPHTHALMOLOGY [facility] 2024-01-26 09:25:25 Patient is requesting a referral to: Dept: Ophthalmology Reason for referral: Eye Exam for Eye Glasses Duration of problem: Ongoing Internal / External referral: External Name of provider / location patient requesting: [facility]/[address] [place] [address] Phone number: [phone] Fax number: N/A Appt already scheduled?: No If yes, date of appt.: N/A Akhil Benitez [facility] 2024-01-25 10:30:00 Images from the original note were not included. Venipuncture collection performed by clean technique on the left anticubitus. Total of 1 attempts were made. Slight pressure and a bandage/dressing were applied to the site(s). The patient experienced no complications. The following specimens were processed according to instructions and sent to [facility] laboratories per lab order on 01/25/2024 : LT BLUE SST 5 RED LAV PPT DK GREEN (LiHep) DK GREEN (SodH) HENDRIX DK BLUE (K2) DK BLUE (S) ACD Blood Culture NIPT/NTD Patient has been identified by and was provided with cup, antiseptic towelette, and clean catch instructions. 1 urine specimen(s) sent. Unpreserved Urine Culture Aptima tube 1 Other urine T [facility] 2024-01-25 09:00:00 Vit D level 15. Start taking 50,000IU vitamin D3 qWeek, with Calcium 500mg daily. T [facility] 2024-01-25 09:00:00 Addended by: MIYA EDOUARD on: 02/08/2024 12:30 PM Modules accepted: Orders [facility] 2024-01-11 11:19:46 Images from the original note were not included. Routed to provider for review. Unable to refill per ambulatory refill guidelines. Notes: Name from pharmacy: Metoprolol Succ 25mg ER Tablet Will file in chart as: METOPROLOL SUCCINATE XL 25 mg 24 hr tablet Possible duplicate: Mable to review recent actions on this medication Sig: TAKE ONE (1) TABLET(S) BY MOUTH IN THE MORNING. Disp: 15 tablet (Pharmacy requested: 15 Each) Refills: 0 (Pharmacy requested: Not specified) Start: 01/11/2024 Class: eRX For: Postural orthostatic tachycardia syndrome (POTS) Last ordered: 2 weeks ago (12/22/2023) by Miya Edouard MD Last refill: 12/22/2023 Rx #: [id number] Cardiovascular: Beta Blockers Wzwaor5601/11/2024 06:12 AM Protocol Details Valid encounter within last 12 months Heart rate within normal limits and completed in the last 12 months To be filled at: [address] AT [address] [place] [address] Last Refilled: 12/22/2023 Recent Visits Date Type Provider Dept 01/04/23 Office Visit Miya Edouard MD [facility] 10/04/22 Office Visit Miya Edouard MD [facility] Showing recent visits within past 540 days with a meds authorizing provider and meeting all other requirements Future Appointments Date Type Provider Dept 01/25/24 Appointment Miya Edouard MD [facility] Showing future appointments within next 150 days with a meds authorizing provider and meeting all other requirements Octavia Paige MA [facility] - Health 2024-01-10 11:15:00 Images from the original note were not included. Venipuncture collection performed by clean technique on the right anticubitus. Total of 1 attempts were made. Slight pressure and a bandage/dressing were applied to the site(s). The patient experienced no complications. The following specimens were processed according to instructions and sent to [facility] laboratories per lab order on 01/10/2024 : LT BLUE SST 4 RED LAV 1 PPT DK GREEN (LiHep) DK GREEN (SodH) HENDRIX DK BLUE (K2) DK BLUE (S) ACD Blood Culture NIPT/NTD Patient has been identified by and name and was provided with cup, antiseptic towelette, and clean catch instructions. 1 urine specimen(s) sent. Unpreserved 1 Urine Culture Aptima tube Other urine [facility] 2023-12-29 11:24:53 Images from the original note were not included. Pt has appt next week. Notes: Name from pharmacy: Metoprolol Succ 25mg ER Tablet Will file in chart as: METOPROLOL SUCCINATE XL 25 mg 24 hr tablet Possible duplicate: Hover to review recent actions on this medication Sig: TAKE ONE (1) TABLET(S) BY MOUTH IN THE MORNING. Disp: 30 tablet (Pharmacy requested: 30 Each) Refills: Not specified Start: 12/29/2023 Class: eRX For: Postural orthostatic tachycardia syndrome (POTS) Last ordered: 1 week ago (12/22/2023) by Miya Edouard MD Last refill: 11/24/2023 Rx #: [id number] Cardiovascular: Beta Blockers Vdbtve4912/29/2023 10:58 AM Protocol Details Valid encounter within last 12 months Heart rate within normal limits and completed in the last 12 months To be filled at: [address] [place] Last Refilled: 12/22/2023 Recent Visits Date Type Provider Dept 01/04/23 Office Visit Miya Edouard MD [facility] 10/04/22 Office Visit Miya Edouard MD [facility] Showing recent visits within past 540 days with a meds authorizing provider and meeting all other requirements Future Appointments Date Type Provider Dept 01/03/24 Appointment Miya Edouard MD [facility] Showing future appointments within next 150 days with a meds authorizing provider and meeting all other requirements Octavia Paige MA [facility] 2023-12-22 08:36:54 Images from the original note were not included. Requested Renewals Name from pharmacy: Metoprolol Succ 25mg ER Tablet Will file in chart as: METOPROLOL SUCCINATE XL 25 mg 24 hr tablet Sig: TAKE ONE (1) TABLET(S) BY MOUTH IN THE MORNING. Disp: 30 tablet (Pharmacy requested: 30 Each) Refills: 0 (Pharmacy requested: Not specified) Start: 12/22/2023 Class: eRX For: Postural orthostatic tachycardia syndrome (POTS) Last ordered: 4 weeks ago (11/24/2023) by Miya Edouard MD Last refill: 11/24/2023 Rx #: [id number] Cardiovascular: Beta Blockers Uiyirw5712/22/2023 06:13 AM Protocol Details Valid encounter within last 12 months Heart rate within normal limits and completed in the last 12 months To be filled at: [address] [place] 01-05-2024 01-03-2024 Chichi Holly MA [facility] 2023-12-04 10:36:44 Images from the original note were not included. Requested Renewals Name from pharmacy: Levothyroxine 25mcg Tablet Will file in chart as: LEVOTHYROXINE 25 mcg tablet Possible duplicate: Hover to review recent actions on this medication Sig: TAKE ONE (1) TABLET BY MOUTH EVERY MORNING. Disp: 30 tablet (Pharmacy requested: 30 Each) Refills: 1 (Pharmacy requested: Not specified) Start: 12/03/2023 Class: eRX For: Elevated TSH Last ordered: 2 months ago (09/06/2023) by Miya Edouard MD Last refill: 10/08/2023 Rx #: [id number] Endocrinology: Hypothyroid Agents Dnzjnn1712/03/2023 11:47 AM Protocol Details Manual Review: ENT providers forward refill request to PCP. Valid encounter within last 12 months TSH in normal range and within 360 days To be filled at: [address] [place] 01-05-2024 01-24-2024 Chichi Holly MA [facility] 2023-11-24 11:04:51 Images from the original note were not included. Refill request refilled per ambulatory refill guidelines. Notes: Name from pharmacy: Levothyroxine 25mcg Tablet Will file in chart as: LEVOTHYROXINE 25 mcg tablet Possible duplicate: Hover to review recent actions on this medication Sig: TAKE ONE (1) TABLET BY MOUTH EVERY MORNING. Disp: 30 tablet (Pharmacy requested: 30 Each) Refills: 1 (Pharmacy requested: Not specified) Start: 11/24/2023 Class: eRX For: Elevated TSH Last ordered: 2 months ago (09/06/2023) by Miya Edouard MD Last refill: 10/08/2023 Rx #: [id number] Endocrinology: Hypothyroid Agents Grgjqa7411/24/2023 09:11 AM Protocol Details Manual Review: ENT providers forward refill request to PCP. Valid encounter within last 12 months TSH in normal range and within 360 days Name from pharmacy: Metoprolol Succ 25mg ER Tablet Will file in chart as: METOPROLOL SUCCINATE XL 25 mg 24 hr tablet Sig: TAKE ONE (1) TABLET(S) BY MOUTH IN THE MORNING. Disp: 30 tablet (Pharmacy requested: 30 Each) Refills: 0 (Pharmacy requested: Not specified) Start: 11/24/2023 Class: eRX For: Postural orthostatic tachycardia syndrome (POTS) Last ordered: 1 month ago (10/16/2023) by Miya Edouard MD Last refill: 10/16/2023 Rx #: [id number] Cardiovascular: Beta Blockers Rgivdc9711/24/2023 09:11 AM Protocol Details Valid encounter within last 12 months Heart rate within normal limits and completed in the last 12 months To be filled at: [facility] [place] [facility] [place] [place] [facility] [address] [facility] [address] [place] Last Refilled: 10/16/23 Recent Visits Date Type Provider Dept 01/04/23 Office Visit Miya Edouard MD [facility] 10/04/22 Office Visit Miya Edouard MD [facility] 06/03/22 Office Visit Miya Edouard MD [facility] Showing recent visits within past 540 days with a meds authorizing provider and meeting all other requirements Future Appointments Date Type Provider Dept 01/24/24 Appointment Miya Edouard MD [facility] Showing future appointments within next 150 days with a meds authorizing provider and meeting all other requirements Octavia Paige MA [facility] 2023-09-19 09:02:59 Images from the original note were not included. Requested Renewals Name from pharmacy: Meloxicam 7.5mg Tablet Will file in chart as: MELOXICAM 7.5 mg tablet Sig: TAKE ONE (1) TABLET BY MOUTH IN THE MORNING. Disp: 30 tablet (Pharmacy requested: 30 Each) Refills: 2 (Pharmacy requested: Not specified) Start: 09/18/2023 Class: eRX For: Chronic pain of right knee; Pain and swelling of knee, right; Numbness and tingling of right arm and leg; Chronic bilateral low back pain with right-sided sciatica; Spondylosis of lumbar region without myelopathy or radiculopathy; Chronic pain of both shoulders; Degenerative disc disease at L5-S1 level; Arthritis, multiple joint involvement Last ordered: 3 months ago (06/19/2023) by Miya Edouard MD Last refill: 09/18/2023 Rx #: [id number] Analgesics: NSAIDS Eorwzn3009/18/2023 05:26 PM Protocol Details Valid encounter within last 12 months Cr in normal range and within 360 days Name from pharmacy: Duloxetine 20mg DR Capsule Will file in chart as: DULOXETINE 20 mg capsule Sig: TAKE ONE (1) CAPSULE BY MOUTH IN THE MORNING AND 1 CAPSULE IN THE EVENING. Disp: 60 capsule (Pharmacy requested: 60 Each) Refills: 5 (Pharmacy requested: Not specified) Start: 09/18/2023 Class: eRX For: Degenerative disc disease at L5-S1 level; Arthritis, multiple joint involvement; Anxiety; Lumbar radiculopathy, chronic; S/P lumbar discectomy Last ordered: 5 months ago (04/03/2023) by Miya Edouard MD Last refill: 09/18/2023 Rx #: [id number] Neuropathic Pain Chuypb8809/18/2023 05:26 PM Protocol Details Manual Review: Verify no changes in dose in the last 3 months Valid encounter within last 12 months To be filled at: [facility] [address] [place] [facility] 01-04-2023 [facility] 10-31-2023 Chichi Holly MA [facility] 2023-09-06 14:16:50 Images from the original note were not included. Refill request refilled per ambulatory refill guidelines. Notes: Requested Renewals Name from pharmacy: Levothyroxine 25mcg Tablet Will file in chart as: LEVOTHYROXINE 25 mcg tablet Sig: TAKE ONE (1) TABLET BY MOUTH EVERY MORNING. Disp: 30 tablet (Pharmacy requested: 30 Each) Refills: 6 (Pharmacy requested: Not specified) Start: 09/06/2023 Class: eRX For: Elevated TSH Last ordered: 8 months ago (01/04/2023) by Miya Edouard MD Last refill: 07/31/2023 Rx #: [id number] Endocrinology: Hypothyroid Agents Iwyfou2109/06/2023 06:10 AM Protocol Details Manual Review: ENT providers forward refill request to PCP. Valid encounter within last 12 months TSH in normal range and within 360 days To be filled at: [facility] [address] [place] Recent Labs 04/05/23 1114 TSH 1.07 Last Refilled: 07/31/23 Recent Visits Date Type Provider Dept 01/04/23 Office Visit Miya Edouard MD [facility] 10/04/22 Office Visit Miya Edouard MD [facility] 06/03/22 Office Visit Miya Edouard MD [facility] Showing recent visits within past 540 days with a meds authorizing provider and meeting all other requirements Future Appointments Date Type Provider Dept 10/31/23 Appointment Miya Edouard MD [facility] Showing future appointments within next 150 days with a meds authorizing provider and meeting all other requirements Octavia Paige MA [facility] 2023-07-31 16:49:16 Images from the original note were not included. Refill request Losartan refilled per ambulatory refill guidelines. Routed to provider for review. Unable to refill per ambulatory refill guidelines. Notes: katia from pharmacy: Amitriptyline 10mg Tablet Will file in chart as: AMITRIPTYLINE 10 mg tablet Sig: TAKE ONE (1) TABLET BY MOUTH AT BEDTIME. Disp: 30 tablet (Pharmacy requested: 30 Each) Refills: Not specified Start: 07/31/2023 Class: eRX For: Numbness and tingling of right arm and leg; Chronic bilateral low back pain with right-sided sciatica; Arthritis, multiple joint involvement; Degenerative disc disease at L5-S1 level; Chronic pain of both shoulders; Chronic pain of right knee; Pain and swelling of knee, right; Spondylosis of lumbar region without myelopathy or radiculopathy To pharmacy: Sending Erx refill request Last ordered: 6 months ago (01/04/2023) by Miya Edouard MD Last refill: 06/29/2023 Rx #: [id number] Neuropathic Pain Fxkhiu7707/31/2023 06:07 AM Protocol Details Manual Review: Verify no changes in dose in the last 3 months Valid encounter within last 12 months Name from pharmacy: Losartan 50mg Tablet Will file in chart as: LOSARTAN 50 mg tablet Sig: TAKE ONE (1) TABLET BY MOUTH IN THE MORNING. Disp: 30 tablet (Pharmacy requested: 30 Each) Refills: 5 (Pharmacy requested: Not specified) Start: 07/31/2023 Class: eRX For: Essential hypertension To pharmacy: Sending Erx refill request Last ordered: 6 months ago (01/04/2023) by Miya Edouard MD Last refill: 06/29/2023 Rx #: [id number] Cardiovascular: Angiotensin Receptor Blockers Cntonc0507/31/2023 06:07 AM Protocol Details Valid encounter within last 12 months K in normal range and within 360 days Cr in normal range and within 360 days To be filled at: [facility] [address] [place] Last Refilled: 06/29/23 Recent Visits Date Type Provider Dept 01/04/23 Office Visit Miya Edouard MD [facility] 10/04/22 Office Visit Miya Edouard MD [facility] 06/03/22 Office Visit Miya Edouard MD [facility] Showing recent visits within past 540 days with a meds authorizing provider and meeting all other requirements Future Appointments Date Type Provider Dept 10/31/23 Appointment Miya Edouard MD [facility] Showing future appointments within next 150 days with a meds authorizing provider and meeting all other requirements Octavia Paige MA [facility] 2023-07-31 16:47:48 Images from the original note were not included. Routed to provider for review. Unable to refill per ambulatory refill guidelines. Notes: Name from pharmacy: Tizanidine 2mg Tablet Will file in chart as: TIZANIDINE 2 mg tablet Sig: TAKE ONE (1) TABLET(S) BY MOUTH EVERY EIGHT HOURS NEEDED. Disp: 90 tablet (Pharmacy requested: 90 Each) Refills: 0 (Pharmacy requested: Not specified) Start: 07/31/2023 Class: eRX Non-formulary For: Arthritis, multiple joint involvement; Degenerative disc disease at L5-S1 level; Lumbar radiculopathy, chronic; S/P lumbar discectomy; Chronic pain of right knee; Pain and swelling of knee, right; Numbness and tingling of right arm and leg; Chronic bilateral low back pain with right-sided sciatica To pharmacy: Sending Erx refill request Last ordered: 1 month ago (06/29/2023) by VEE Miguel Last refill: 06/29/2023 Rx #: [id number] Provider Review Required Fijcqn9907/31/2023 08:24 AM Protocol Details This refill cannot be delegated Valid encounter within last 12 months To be filled at: [facility] [place] [address] [employer] AT [address] [place] Last Refilled: 06/29/23 Recent Visits Date Type Provider Dept 01/04/23 Office Visit Miya Edouard MD [facility] 10/04/22 Office Visit Miya Edouard MD [facility] 06/03/22 Office Visit Miya Edouard MD [facility] Showing recent visits within past 540 days with a meds authorizing provider and meeting all other requirements Future Appointments Date Type Provider Dept 10/31/23 Appointment Miya Edouard MD [facility] Showing future appointments within next 150 days with a meds authorizing provider and meeting all other requirements Octavia Paige MA [facility] 2023-06-29 10:43:50 Images from the original note were not included. Routed to provider for review. Unable to refill per ambulatory refill guidelines. Notes: Name from pharmacy: Tizanidine 2mg Tablet Will file in chart as: TIZANIDINE 2 mg tablet Sig: TAKE ONE (1) TABLET(S) BY MOUTH EVERY EIGHT HOURS NEEDED FOR MUSCLE SPASMS. Disp: 90 tablet (Pharmacy requested: 90 Each) Refills: 0 (Pharmacy requested: Not specified) Start: 06/29/2023 Class: eRX Non-formulary For: Arthritis, multiple joint involvement; Degenerative disc disease at L5-S1 level; Lumbar radiculopathy, chronic; S/P lumbar discectomy; Chronic pain of right knee; Pain and swelling of knee, right; Numbness and tingling of right arm and leg; Chronic bilateral low back pain with right-sided sciatica To pharmacy: Sending Erx refill request Last ordered: 1 month ago (05/30/2023) by Miya Edouard MD Last refill: 05/30/2023 Rx #: [id number] Provider Review Required Bcvxsv2406/29/2023 06:12 AM Protocol Details This refill cannot be delegated Valid encounter within last 12 months To be filled at: [facility] [place] [place] [facility] [facility] [address] [place] Last Refilled: 05/30/2023 Recent Visits Date Type Provider Dept 01/04/23 Office Visit Miya Edouard MD [facility] 10/04/22 Office Visit Miya Edouard MD [facility] 06/03/22 Office Visit Miya Edouard MD [facility] 01/27/22 Office Visit Miya Edouard MD [facility] Showing recent visits within past 540 days with a meds authorizing provider and meeting all other requirements Future Appointments Date Type Provider Dept 07/12/23 Appointment Miya Edouard MD [facility] Showing future appointments within next 150 days with a meds authorizing provider and meeting all other requirements Octavia Paige MA [facility] 2023-06-19 08:12:15 Images from the original note were not included. Requested Renewals Name from pharmacy: Meloxicam 7.5mg Tablet Will file in chart as: MELOXICAM 7.5 mg tablet Sig: TAKE ONE (1) TABLET BY MOUTH IN THE MORNING. Disp: 30 tablet (Pharmacy requested: 30 Each) Refills: 2 (Pharmacy requested: Not specified) Start: 06/17/2023 Class: eRX For: Chronic pain of right knee; Pain and swelling of knee, right; Numbness and tingling of right arm and leg; Chronic bilateral low back pain with right-sided sciatica; Spondylosis of lumbar region without myelopathy or radiculopathy; Chronic pain of both shoulders; Degenerative disc disease at L5-S1 level; Arthritis, multiple joint involvement To pharmacy: Sending Erx refill request Last ordered: 2 months ago (04/03/2023) by Miya Edouard MD Last refill: 06/04/2023 Rx #: [id number] Analgesics: NSAIDS Izndwl0006/17/2023 11:26 AM Protocol Details Valid encounter within last 12 months Cr in normal range and within 360 days To be filled at: [facility] [place], [place] - [address] [place] [address] AT [address] 01-04-2023 NOV 07-12-2023 OR BUYER Chichi Holly MA [facility] 2023-05-30 08:19:06 Routing to correct pool, Please review and fill if appropriate. Thanks! Last rx'd: 05/01/23 If indicated: Last UDS: Last Contract: Requested Prescriptions Pending Prescriptions Disp Refills TIZANIDINE 2 mg tablet [Pharmacy Med Name: Tizanidine 2mg Tablet] 90 tablet 0 Sig: TAKE ONE (1) TABLET(S) BY MOUTH EVERY EIGHT HOURS NEEDED FOR MUSCLE SPASMS. Provider Review Required Failed - 05/29/2023 6:11 AM Failed - This refill cannot be delegated Passed - Valid encounter within last 12 months Recent Visits Date Type Provider Dept 01/04/23 Office Visit Miya Edouard MD [facility] 10/04/22 Office Visit Miya Edouard MD [facility] 06/03/22 Office Visit Miya Edouard MD [facility] Showing recent visits within past 365 days and meeting all other requirements Future Appointments Date Type Provider Dept 07/12/23 Appointment Miya Edouard MD [facility] Showing future appointments within next 365 days and meeting all other requirements [facility] [place], [place] - [address] [place] [address] [address] [facility] & [facility] [address] [facility] [address] Carmen Alba MA 05/30/2023 8:19 AM OR BUYER PN-PSYCHIATRY [facility] 2023-05-01 10:43:57 Images from the original note were not included. Last OV: 01/04/2023 with Miya Edouard Last Refills prescribed by Miya Edouard Last Labs Pertaining to Med: N/A Future Appt: Future Appointments Provider Department Dept Phone 07/12/2023 3:00 PM Miya Edouard MD [facility], [place] [phone] 08/22/2023 3:30 PM Yoli Hi AGPCNP [facility], [facility] [phone] 10/12/2023 1:00 PM Raffi Rodriguez DO [facility] [phone] Routed to provider for review. Unable to refill per ambulatory refill guidelines. Name from pharmacy: Tizanidine 2mg Tablet Will file in chart as: TIZANIDINE 2 mg tablet Sig: TAKE ONE (1) TABLET(S) BY MOUTH EVERY EIGHT HOURS NEEDED FOR MUSCLE SPASMS. Disp: 90 tablet (Pharmacy requested: 90 Each) Refills: 0 (Pharmacy requested: Not specified) Start: 04/30/2023 Class: eRX Non-formulary For: Arthritis, multiple joint involvement; Degenerative disc disease at L5-S1 level; Lumbar radiculopathy, chronic; S/P lumbar discectomy; Chronic pain of right knee; Pain and swelling of knee, right; Numbness and tingling of right arm and leg; Chronic bilateral low back pain with right-sided sciatica To pharmacy: Sending Erx refill request Last ordered: 1 month ago (03/30/2023) by Miya Edouard MD Last refill: 03/30/2023 Rx #: [id number] Provider Review Required Qpeavl8304/30/2023 08:09 AM Protocol Details This refill cannot be delegated Valid encounter within last 12 months [facility] George Miranda RN [facility] 2023-04-05 11:30:00 Images from the original note were not included. Venipuncture collection performed by clean technique on the left anticubitus. Total of 1 attempts were made. Slight pressure and a bandage/dressing were applied to the site(s). The patient experienced no complications. The following specimens were processed according to instructions and sent to [facility] laboratories per lab order on 04/05/2023 : LT BLUE SST 1 RED LAV PPT DK GREEN (LiHep) DK GREEN (SodH) HENDRIX DK BLUE (K2) DK BLUE (S) ACD Blood Culture NIPT/NTD OR BUYER [facility] 2022-12-29 16:22:11 Formatting of this n ote might be different from the original. Received notification from [facility], placed in provider folder to be view. Chichi Holly MA [facility] 2022-12-29 14:11:30 Formatting of this n ote might be different from the original. Rx sent, let patient know, and to follow-up as scheduled. [facility] 2022-12-03 11:18:47 Formatting of this n ote might be different from the original. Insurance will no longer cover the GLP 1 on the [facility] insurance plan To switch to different medications I would recommend appointment Please schedule SMOG TECHNICIAN-FAMILY MIDLEVEL PROVIDER [facility] 2022-12-01 14:32:13 Formatting of this n ote might be different from the original. Pt given printed and verbal discharge instructions regarding chest pain, encouraged hydration, Discussed ibuprofen and to take with food to avoid GI distress. Pt verbalized understanding of instructions, pt awake alert oriented, resp reg unlabored, skin w/d, color appropriate for race, moves all ext well,pt encouraged to follow up with pcp and or specialist Advised to seek medical attention for new/prolonged/worsening of symptoms, No adverse reaction to meds given in ER noted upon discharge PIV d'cd, dressing to site, catheter in tact. Awake, alert oriented, resp reg unlabored, skin w/d, pt leaving amb with steady gait, in no apparent distress, Antonella Choi RN [facility] 2022-12-01 11:58:43 Formatting of this n ote might be different from the original. Pt to ER via EMS with c/o chest pain, SOB, headache, N/V, chills, fatigue that started this morning. EMS gave 4mg Zofran IVP, SL Nitro x1, and 324mg ASA CLINICAL ACCOUNT MANAGER. Pt denies CP on arrival to ED, c/o headache 05/27. Cathi Jaeger RN [facility] 2022-11-28 12:30:12 Formatting of this n ote might be different from the original. Spoke with patient, verbalized she would like an alternative to mounjaro. Informed patient that the [facility] insurance will have a weight loss exclusion starting Dec 16 and she would no longer be covered for weight loss medication. I informed her I would also still send this to Dr. Payne and see what his thought were. Jennfier Oswald RN [facility] 2022-11-28 10:58:46 Formatting of this n ote might be different from the original. Pt calling want to know if there alternative med to mounjaro Dafne Ortez [facility] 2022-11-18 08:24:28 Formatting of this n ote might be different from the original. Received notification from [employer]: Coverage is provided for type 2 diabetes mellitus. Coverage cannot be authorized at this time. Appeal paperwork not sent as there is not a type 2 diabetes diagnosis and the A1C has not shown diabetes while under the provider care. Jennifer Oswald RN [facility] 2022-11-17 17:18:57 Formatting of this n ote might be different from the original. OCTAVIA EUNICE Jackson: [id number] - [place] - Rx #: [id number] help? Call us at Status Sent to [employer] Mounjaro 5MG/0.5ML pen-injectors Form [facility] Electronic PA Form ([facility]) Original Claim Info 75 [place] initiated via CoverMyMeds. Will need to update patient as time permits. Shanelle Lombardo LVN 11/17/2022 5:19 PM Shanelle Lombardo DEMURRAGE CLERK [facility] 2022-11-17 14:54:05 Formatting of this n ote might be different from the original. No answer; left message on voicemail that rx for William was sent in as requested and reminder to keep appt scheduled for 01/04/2023 @ 9:40am. Advised to call with any questions or send message via [employer]. George Miranda RN [facility] 2022-11-17 14:03:49 Formatting of this n ote might be different from the original. Images from the original note were not included. Dafne Ortez [facility] 2022-11-17 13:09:12 Formatting of this n ote might be different from the original. Patient is calling for status of prior authorization. Please call. Tatianna Goodson [facility] 2022-11-16 14:26:11 Formatting of this n ote might be different from the original. Rx sent, let patient know, and to follow-up as scheduled. [facility] 2022-11-14 16:25:16 Formatting of this n ote might be different from the original. Pt called and is checking on prior authorization. She is completely out . Pt would like to have the prior auth stating a year for refills. Please advise. Dakota Li [facility] 2022-11-13 14:55:24 Formatting of this n ote might be different from the original. [facility] 10.04.2022 Routed to provider for refill approval of non-delegated medication. EKATERINA MONTANO RN 11/13/2022 2:55 PM Ekaterina Montano RN [facility]"
[2025-01-13] MEDS ORDERED: LORazepam 2 MG/ML VIAL ONE (08:46)
[2025-01-13] MEDS ORDERED: FAMOTIDINE 20 MG/2 ML VIAL IV ONE (08:46)
[2025-01-13 09:12] LABS: Absolute Lymphocytes (CBC) 1.7 K/uL (0.7-4.9); Hematocrit 39.9 % (36.0-45.0); Hemoglobin 13.5 g/dL (12.0-15.0); MCH 31.3 pg (27.0-35.0); MCHC 33.8 g/dL (32.0-36.0); MCV 92.8 fL (80-100); MPV 7.8 fL (7.6-11.3); Nucleated RBC Absolute Count 0.0 (0-0); Nucleated Red Blood Cells % 0.1 % (0-0); RBC Red Blood Cell Count 4.30 M/uL (3.86-4.86); White Blood Count 8.00 thou/uL (4.3-10.9)
[2025-01-13 09:31] LABS: ALT/SGPT 23.0 U/L (13-56); AST/SGOT 14.0 U/L (15-37); Albumin 3.4 g/dL (3.4-5.0); Albumin/Globulin Ratio 1.0 (1.1-1.8); Alkaline Phosphatase 33.0 U/L (45-117); Anion Gap 10.9 mEq/L (5.0-15.0); BUN Blood Urea Nitrogen 5.0 mg/dL (7-18); Globulin 3.3 g/dL (2.3-3.5); Glucose Level 126.0 mg/dL (74-106); Lipase 37.0 U/L (13-75); Potassium 3.9 mEq/L (3.5-5.1)
[2025-01-13] MEDS ORDERED: LORAZEPAM 1 MG TABLET ONE (10:22)
--- NOTE | 2025-01-13 10:25 | RAD REPORT ---
EXAMINATION: Abdomen Pelvis W Contrast CLINICAL INDICATION: Female, 44 years old.ABD PAIN TECHNIQUE: CT abdomen and pelvis was performed, after the administration of IV contrast, [facility]. Axial, sagittal and coronal reconstructions were obtained. One or more of the following dose reduction techniques were used: Automated exposure control, adjustment of the mA and/o r kV according to patient size, and/or iterative reconstruction. Unless otherwise specified, incidental findings do not require dedicated imaging follow-up. [id number]. COMPARISON: 05/01/2024 FINDINGS: LOWER CHEST: No acute process identified.No significant pericardial effusion. Mild circumferential th ickening of the distal esophagus which could reflect esophagitis. UPPER GI: No significant abnormality. LIVER: No significant focal abnormality. GALLBLADDER/BILE DUCTS: No biliary ductal dilatation.? PANCREAS: No mass, ductal dilation, or martine-pancreatic fluid. SPLEEN: Unremarkable. ADRENALS: No adrenal masses. KIDNEYS AND URETERS: No hydronephrosis.No suspicious renal mass.No renal calculi.No ureteral calculi. ABDOMINAL AORTA AND OTHER VESSELS: Mild atherosclerotic changes. PERITONEUM: Chronic nonspecific mesenteric edema at the jejunal mesentery. LYMPH NODES: No pathologic lymphadenopathy. ABDOMINAL WALL: Unremarkable SMALL BOWEL/COLON: Submucosal fatty deposition within the distal small bowel. Some portions of the sm all bowel or distended with fluid. No evidence of an overt bowel obstruction.Normal appendix. Mild diverticulosis without diverticulitis. URINARY BLADDER: Underdistended but grossly unremarkable. REPRODUCTIVE ORGANS: No pathologic process. IUD. MUSCULOSKELETAL: Disc replacement at L5-S1. ADDITIONAL FINDINGS: None. IMPRESSION: No definite acute findings within the abdomen or pelvis. Nonspecific fluid distended fluid within the lower abdominal small bowel could reflect a mild enteritis. No appendicitis. Nonspecific mesenteric edema is unchanged and could reflect mesenteric panniculitis.
--- NOTE | 2025-01-13 10:51 | ER ---
Nurse's Notes [facility] Name: Octavia Lo Age: 44 yrs Sex: Female : 1980 Arrival Date: 01/13/2025 Time: 08:27 Bed 16 Private MD: Diagnosis: Other specified noninfective gastroenteritis and colitis Presentation: 01/13 08:30 Chief complaint: Patient states: C/O epigastric pain, N/V, sweating that began this ar8 morning. Patient reports constip[ation x1 wk. Coronavirus screen: At this time, the client does not indicate any symptoms associated with coronavirus-19. 08:30 Method Of Arrival: EMS: [facility] ar8 08:30 Ebola Screen: No symptoms or risks identified at this time. Initial Sepsis Screen: Does ar8 the patient meet any 2 criteria? No. Patient's initial sepsis screen is negative. Does the patient have a suspected source of infection? No. Patient's initial sepsis screen is negative. Risk Assessment: Do you want to hurt yourself or someone else? Patient reports no desire to harm self or others. Onset of symptoms was January 13, 2025. 08:30 Acuity: ONUR 3 ar8 08:37 Chief complaint:. ar8 Triage Assessment: 08:40 General: Appears uncomfortable, Behavior is cooperative, anxious. Pain: Complains of ar8 pain in epigastric area Pain currently is 3 out of 10 on a pain scale. Neuro: Level of Consciousness is awake, alert, obeys commands, Oriented to person, place, time, situation. Cardiovascular: Patient's skin is warm and dry. Respiratory: Airway is patent Respiratory effort is even, unlabored, Respiratory pattern is regular, symmetrical. GI: Reports constipation, epigastric pain, nausea. : No signs and/or symptoms were reported regarding the genitourinary system. Derm: No signs and/or symptoms reported regarding the dermatologic system. Historical: - Allergies: 08:40 Codeine; ar8 08:40 Percocet; ar8 08:40 Phenergan; ar8 08:40 Reglan; ar8 - Home Meds: 08:40 gabapentin oral [Active]; ar8 - PMHx: 08:40 Anxiety; Hypertension; Pancreatitis; Kidney stones; Hypothyroidism; blood clot right ar8 side of head; - PSHx: 08:40 spinal sx 07/30/22; ar8 - Immunization history:: Adult Immunizations not up to date. - Infectious Disease History:: Denies. - Social history:: Smoking status: Patient denies any tobacco usage or history of. Screenin:42 [facility] ED Fall Risk Assessment (Adult) History of falling in the last 3 months, ar8 including since admission No falls in past 3 months (0 pts) Confusion or Disorientation No (0 pts) Intoxicated or Sedated No (0 pts) Impaired Gait No (0 pts) Mobility Assist Device Used No (0 pt) Altered Elimination No (0 pt) Score/Fall Risk Level 0 - 2 = Low Risk Oriented to surroundings, Maintained a safe environment. Abuse screen: Denies threats or abuse. Nutritional screening: No deficits noted. Tuberculosis screening: No symptoms or risk factors identified. Assessment: 08:42 Reassessment: See triage assessment. ar8 Vital Signs: 08:30 BP 152 / 100; Pulse 81; Resp 20; Pulse Ox 99% on R/A; Weight 90.72 kg; Height 5 ft. 5 ar8 in. ; Pain 3/10; 09:15 BP 146 / 84; Pulse 76; Resp 16; Pulse Ox 99% on R/A; ar8 10:30 BP 135 / 87; Pulse 86; Resp 17; Pulse Ox 99% on R/A; ar8 10:45 BP 128 / 82; Pulse 87; Resp 15; Pulse Ox 100% ; Pain 0/10; ar8 08:30 Body Mass Index 33.28 (90.72 kg, 165.1 cm) ar8 08:30 Pain Scale: Adult ar8 10:45 Pain Scale: Adult ar8 ED Course: 08:27 Patient arrived in ED. bd 08:31 Rina Lofton PA-C is PHCP. sb4 08:31 Alejandra Scott MD is Attending Physician. sb4 08:37 Pk Ortez, DAVI is Primary Nurse. ar8 08:40 Triage completed. ar8 08:40 Arm band placed on left wrist. ar8 08:42 Bed in low position. Call light in reach. Side rails up X2. Provided Education on: plan ar8 of care. Client placed on continuous cardiac and pulse oximetry monitoring. NIBP monitoring applied. Warm blanket given. Pillow given. 08:42 No provider procedures requiring assistance completed. Maintain EMS IV. Dressing ar8 intact. Good blood return noted. Site clean \T\ dry. Gauge \T\ site: 18G L AC. Flushed with 10 mL NS. 08:59 Test, Serum Sent. ar8 08:59 CBC with Diff Sent. ar8 08:59 CMP Sent. ar8 08:59 Lipase Sent. ar8 09:[address] ar8 09:49 CT Abd/Pelvis - IV Contrast Only In Process Unspecified. EDMS 10:50 Olvin Alvarez MD is Referral Physician. sb4 11:13 IV discontinued, intact, bleeding controlled, No redness/swelling at site. Pressure ar8 dressing applied. Administered Medications: 08:55 Drug: Ativan IVP 1 mg IVP once Route: IVP; Site: left antecubital; ar8 09:00 Follow up: Response: No adverse reaction; Anxiety decreased ar8 08:57 Drug: Famotidine IVP 20 mg IVP once; dilute with 10 mL 0.9% NaCl; give over 2 minutes ar8 Route: IVP; Site: left antecubital; 09:30 Follow up: Response: No adverse reaction; Marked relief of symptoms ar8 10:35 Drug: LORazepam PO 1 mg PO once Route: PO; ar8 11:12 Follow up: Response: No adverse reaction; Anxiety decreased ar8 Medication: 08:42 VIS not applicable for this client. ar8 Outcome: 10:50 Discharge ordered by . sb4 11:13 Discharged to home via wheelchair, ar8 11:13 Condition: stable 11:13 Discharge instructions given to patient, family, Instructed on discharge instructions, follow up and referral plans. Demonstrated understanding of instructions, follow-up care, 11:15 Patient left the ED. ar8 Signatures: Dispatcher [employer] EDMS Sapna Root Sophia, PA-C PAPeaceC sb4 Pk Ortez, RN RN ar8 Corrections: (The following items were deleted from the chart) 08:41 08:40 PMHx: blood clot right side of head; ar8 ar8 08:41 08:40 PMHx: blood clot right side of head; ar8 ar8
--- NOTE | 2025-01-13 10:51 | EDPHYS ---
Physician Documentation [facility] Name: Octavia Lo Age: 44 yrs Sex: Female : 1980 Arrival Date: 01/13/2025 Time: 08:27 Bed 16 Private MD: ED Physician Alejandra Scott HPI: 01/13 08:35 This 44 yrs old Female presents to ER via Unassigned with complaints of abdominal pain, sb4 constipation. 08:35 Patient reports constipation x 1 week, and epigastric pain and vomiting that began this sb4 morning. She called EMS for assistance who administered droperidol which improved her symptoms. Denies any chronic abdominal issues or prior abdominal surgeries. Reports "feeling cold "but denies any fever. Historical: - Allergies: 08:40 Codeine; ar8 08:40 Percocet; ar8 08:40 Phenergan; ar8 08:40 Reglan; ar8 - Home Meds: 08:40 gabapentin oral [Active]; ar8 - PMHx: 08:40 Anxiety; Hypertension; Pancreatitis; Kidney stones; Hypothyroidism; blood clot right ar8 side of head; - PSHx: 08:40 spinal sx 07/30/22; ar8 - Immunization history:: Adult Immunizations not up to date. - Infectious Disease History:: Denies. - Social history:: Smoking status: Patient denies any tobacco usage or history of. ROS: 08:35 Cardiovascular: Negative for chest pain, palpitations, and edema, sb4 08:35 Constitutional: Positive for chills, 08:35 Abdomen/GI: Positive for abdominal pain, nausea and vomiting, constipation, 08:35 All other systems are negative, Exam: 08:36 Head/Face: Normocephalic, atraumatic. Eyes: Extra-ocular motions intact. Periorbital sb4 areas with no swelling, redness, or edema. ENT: Mucous membranes moist. Cardiovascular: Regular rate and rhythm with a normal S1 and S2. Respiratory: No increased work of breathing, no retractions or nasal flaring. Abdomen/GI: Soft, non-tender, no distension. Skin: Warm, dry with normal turgor. Normal color with no rashes, no lesions, and no evidence of cellulitis. 08:36 Constitutional: The patient appears alert, awake, anxious, Vital Signs: 08:30 BP 152 / 100; Pulse 81; Resp 20; Pulse Ox 99% on R/A; Weight 90.72 kg; Height 5 ft. 5 ar8 in. ; Pain 3/10; 09:15 BP 146 / 84; Pulse 76; Resp 16; Pulse Ox 99% on R/A; ar8 10:30 BP 135 / 87; Pulse 86; Resp 17; Pulse Ox 99% on R/A; ar8 10:45 BP 128 / 82; Pulse 87; Resp 15; Pulse Ox 100% ; Pain 0/10; ar8 08:30 Body Mass Index 33.28 (90.72 kg, 165.1 cm) ar8 08:30 Pain Scale: Adult ar8 10:45 Pain Scale: Adult ar8 MDM: 08:31 Medical Screening Exam initiated sb4 08:36 Differential diagnosis: cholecystitis, Cholelithiasis, gastritis, gastroesophageal sb4 reflux disease, non-specific abd pain, pancreatitis, Peptic Ulcer Disease, constipation. 11:03 Data reviewed: vital signs, nurses notes, EMS record, lab test result(s), radiologic sb4 studies, CT scan, and as a result, I will discharge patient. Counseling: I had a detailed discussion with the patient and/or guardian regarding the historical points, exam findings, and any diagnostic results supporting the discharge/admit diagnosis, lab results, radiology results, the need for outpatient follow up, for definitive care, a re examiner, to return to the emergency department if symptoms worsen or persist or if there are any questions or concerns that arise at home. Special discussion: Based on the patient's Hx, exam, and Dx evaluation, there is no indication for emergent surgery or inpatient Tx. It is understood by the patient/guardian that if the Sx's persist or worsen they need to return immediately for re-evaluation. Based on the presenting symptoms and work-up in the emergency department, I discussed in detail the need to arrange with the PCP or specialist an outpatient procedure, esophagogastroduodenoscopy by the GI specialist, colonoscopy by the GI specialist. 01/13 08:32 Order name: CBC with Diff; Complete Time: 09:14 sb4 01/13 08:32 Order name: CMP; Complete Time: 09:37 sb4 01/13 08:32 Order name: Lipase; Complete Time: 09:37 sb4 01/13 08:32 Order name: Test, Serum; Complete Time: 09:26 sb4 01/13 08:32 Order name: CT Abd/Pelvis - IV Contrast Only; Complete Time: 10: sb4 01/13 08:32 Order name: IV Saline Lock; Complete Time: 08:59 sb4 01/13 08:32 Order name: Labs collected and sent; Complete Time: 08:59 sb4 Administered Medications: 08:55 Drug: Ativan IVP 1 mg IVP once Route: IVP; Site: left antecubital; ar8 09:00 Follow up: Response: No adverse reaction; Anxiety decreased ar8 08:57 Drug: Famotidine IVP 20 mg IVP once; dilute with 10 mL 0.9% NaCl; give over 2 minutes ar8 Route: IVP; Site: left antecubital; 09:30 Follow up: Response: No adverse reaction; Marked relief of symptoms ar8 10:35 Drug: LORazepam PO 1 mg PO once Route: PO; ar8 11:12 Follow up: Response: No adverse reaction; Anxiety decreased ar8 Disposition Summary: 01/13/25 10:50 Discharge Ordered Notes: Location: Home sb4 Problem: new sb4 Symptoms: have improved sb4 Condition: Stable sb4 Diagnosis - Other specified noninfective gastroenteritis and colitis sb4 Followup: sb4 - With: Olvin Alvarez MD - When: As needed - Reason: Recheck today's complaints, Re-evaluation by your physician Discharge Instructions: - Discharge Summary Sheet sb4 - Viral Gastroenteritis, Adult, [id number] sb4 Forms: - Patient Portal Instructions sb4 - Leadership Thank You Letter sb4 Signatures: Dispatcher [employer] Rina Skinner PA-C PA-C sb4 Pk Ortez, RN RN ar8 Corrections: (The following items were deleted from the chart) 08:32 08:32 CBC+H.LAB.BRZ ordered. EDMS EDMS 08:32 08:32 COMPREHENSIVE METABOLIC PANEL+C.LAB.BRZ ordered. EDMS EDMS 08:32 08:32 LIPASE+C.LAB.BRZ ordered. EDMS EDMS 08:32 08:32 TEST, SERUM+SC.LAB.BRZ ordered. EDMS EDMS 08:32 08:32 Abdomen Pelvis W Con+CT.RAD.BRZ ordered. EDMS EDMS 08:41 08:40 PMHx: blood clot right side of head; ar8 ar8 08:41 08:40 PMHx: blood clot right side of head; ar8 ar8
[2025-01-13 11:32] VITALS: BP 128/82; O2SAT 100
== END 2025-01-13 11:15 | disposition home or self-care (01) ==
LOC: ER 08:27
DX: K52.89 Other specified noninfective gastroenteritis and colitis (principal)
CPT/HCPCS: 36415; 74177; 80053; 83690; 84703; 85025; 96374; 96375; 99285; Q9967

== ENCOUNTER 2025-01-18 10:38 | Emergency (ER) | payer MEDICAID, OTHER, SELFPAY ==
--- OUTSIDE RECORDS SUMMARY | 2025-01-18 10:58 | XMS REPORT | Continuity of Care Document ---
Author Name Unknown Address [address] [place] [address] [facility] Address [address] [place] [address] Care Team Providers Care Car Pre Cooler Name Role Phone MIYA EDOUARD Primary Care Physician UnavailABBEY Roque Attending Clinician Unavailable MIYA EDOUARD Attending Clinician Unavailable LOKI HAYES Attending Clinician Unavailable Miya Edouard MD Attending Clinician [phone] KATHE ZHAO Attending Clinician Unavailable KATHE ZHAO Attending Clinician Unavailable KATHE ZHAO Attending Clinician Unavailable NIKI AVILES Attending Clinician Unavailable Perla Upton NP Attending Clinician [phone] Doctor Unassigned, [place] Attending Clinician U navailable CHRISSIE MOYA Attending Cli nician Unavailable CHRISSIE MOYA Attending Cli nician Unavailable Alyce Bartholomew Attending Clinician [phone] Jose SUPERVISOR TYPE DISK QUALITY CONTROL, Noni Riley Attending Clinician Federico Richter Attending Clinician Unavailtoyin Rodriges CPhT, Anna Riley Attending Clinician Unavaila CHERELLE Sanders Attending Clinician Unavailable Jerry CPhT, Laura Sarkar Attending Clinician Unava ilable Nurse, [facility] Attending Clinician Unavailable Malik White MD Attending Clinician [phone] Shante Pleitez OT Attending Clinician Un available MALIK WHITE Attending Clinician UnavailMALIK Jiang Attending Clinician Unavailtoyin Roa registered respiratory therapist, Sabrina Attending Clinician Unavail able Pawel [facility], Shaneka Boothe Attending Clinician Unavail able Rupali SALGUERO, Nigel Lebron Attending Clinician Unavailable Unknown, Attending Attending Clinician Unavailab Dev Seals PA-C Attending Clinician [phone] DEV PELAEZ Attending Clinician Unavailable Surendra Feliciano, Kena Attending Clinician Unavaila madeleine Villagomez CPhT, Akiko Payne Attending Clinician Unava ilSARAH BETH King Attending Clinician UnavailMarybeth Pedraza Attending Clinician [phone] MARTHA MERAZ Attending Clinician MARTHA Marrero Attending Clinician MARYBETH Orosco Attending Clinician Unavailable MARYBETH JIMÉNEZ Attending Clinician Unavailable Brandon [facility], Carina Attending Clinician Unavailable Kareem Feliciano, Jeni Attending Clinician Martha Marrero MD Attending Clinician + [phone] Loki Hayes MD Attending Clinician +[phone] Clare Hernández MD Attending Clinician [phone] Jennie Loving MD Attending Clinician [phone] Only, [facility] Test Attending Clinician Unavailable JENNIE LOVING Attending Clinician Unavailab zonia Priest MD, Lui Blanc Attending Clinicia n Sue Childs MD Attending Clinician [phone] Olamide Simpson PA-C Attending Clinician [phone] 2, [facility] Attending Clinician Unavailable Pcp-Lab Attending Clinician Unavailable OLAMIDE SIMPSON Attending Clinician Unavailable OLAMIDE SIMPSON Attending Clinician Unavailable Miya Edouard MD Attending Clinician + RAFFI RODRIGUEZ Attending Clinician Unavailab Eva Bañuelos MD Attending Clinician [phone] GELA BENEDICT Attending Clinician Unavailable YOLI HI Attending Clinician Unavailable Octavia Moy Attending Clinician + Doctor Unassigned, [place] Attending Clinician U Gela Quintana MD Attending Clinician [phone] Pob, [facility] Main Attending Clinician Unavailabl e 2, [facility] Attending Clinician Unavailable EVA ABREU Attending Clinician Unavailable SHEREE BLOOD Attending Clinician Unavaila JEY Weaver Attending Clinician Unavailable Jey Machado S Attending Clinician [phone] SARMAD PITT Attending Clinician Unavail able SARMAD PITT Attending Clinician Unavail able Sarmad Pitt MD Attending Clinician [phone] Neurology Attending Clinician Unavailable JULIANE JOLLY Attending Clinician Unavailab Juliane Moeller MD Attending Clinician [phone] RADIOLOGY Attending Clinician Unavailable Radiology Attending Clinician Unavailable CAROLINA MAURICE Attending Clinician Unavailab Carolina Mario DO Attending Clinician [phone] Nathaly Richter PA-C Attending Clinician +[phone] Only, [facility] Test Attending Clinician Unavailabl e Chary Reich Attending Clinician [phone] EBCHARY SNOW Attending Clinician Unavailable NATHALY RICHTER Attending Clinician Unavailable NIKA BERRY Attending Clinician Unavailable Nika Berry MD Attending Clinician [phone] Mono Perea MD Attending Clinician [phone] Only, [facility] Attending Clinician Unavailable Abbey Rothman MD Attending Clinician [phone], [facility] Attending Clinician Unavailable Diann Garcia Attending Clinician [phone] Yasir Ghosh MD Attending Clinician RUSSELL LAWLER Attending Clinician Unavail able Nurse, [facility] Pob Immunization Attending Clinician Unavailable Russell Lawler DO Attending Clinician [phone] Vaccine, [facility] Family Attending Clinician Unavaila madeleine Green SUPERVISOR TYPE DISK QUALITY CONTROL, Fern Attending Clinician [phone] FERN EVANGELISTA Attending Clinician Unavailable Provider, [facility] Attending Clinician Un available Mary Rodrigues Attending Clinician [phone] MARY HARLEY Attending Clinician Unavailable FESTUS MANUEL Attending Clinician Unavailable Karen Copeland Attending Clinician [phone] Ramirez Fink MD Attending Clinician [phone] GEORGE GIL Attending Clinician Unavailable Lab, [facility] Fam Pob I Attending Clinician Unavailab zonia Gil SUPERVISOR TYPE DISK QUALITY CONTROL, George Attending Clinician [phone] Rolly SUPERVISOR [employer], Sherley K Attending Clinician Unavail able Rg HOPPER, Malik Boothe Attending Clinician [phone] Kevin Valadez MD Attending Clinician +[phone] Betito Weinberg Attending Clinician [phone] Loki Hayes MD Attending Clinician [phone] Eren Espinoza PT, Carmen Attending Clinician Un available ABBEY ROTHMAN Admitting Clinician Unavailable MIYA EDOUARD Admitting Clinician Unavailable JEY PEREZ Admitting Clinician Unavailable JULIANE JOLLY Admitting Clinician Unavailab NIKA Leonard Admitting Clinician Unavailable Nika Berry MD Admitting Clinician [phone] Abbey Rothman MD Admitting Clinician +[phone] MARY HARLEY Admitting Clinician Unavailable Payers Payer Name Policy Type Policy Number Effective Date Expirati on Date Source [facility] [id number] 2017 00:00:00 [facility] [id number] 2024 00:00:00 2024 00:00:00 [place] [id number] 2023 00:00:00 2024 00:00:00 Problems Condition Name Condition Details Condition Category Status Onset Date Resolution Date Last Treatment Date Treating Clinician Comments Source Gait instabilit y Gait instabilit y Disease Active 08-07 00:00: 00 [facility] Reduced mobility Reduced mobility Disease Active 08-07 00:00: 00 [facility] Moderately severe recurrent major depression Moderately severe recurrent major depression Disease Active 08-07 00:00: 00 [facility] 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 Disease Active 08-07 00:00: 00 [facility] Lymphadeno mann, cervical Lymphadeno mann, cervical Disease Active 2023-04 00:00: 00 [facility] Tenderness of lymph node Tenderness of lymph node Disease Active 2023-04 0 00:00: 00 [facility] Agoraphobi a Agoraphobi a Disease Active 2023-04 0 00:00: 00 [facility] Stress incontinen ce of urine Stress incontinen ce of urine Disease Active 01-04 00:00: 00 [facility] Bulging lumbar disc Bulging lumbar disc Disease Active 01-04 00:00: 00 [facility] Foraminal stenosis of lumbar region Foraminal stenosis of lumbar region Disease Active 01-04 00:00: 00 [facility] 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 Disease Active 01-04 00:00: 00 [facility] Postural orthostati c tachycardi a syndrome (POTS) Postural orthostati c tachycardi a syndrome (POTS) Disease Active 01-04 00:00: 00 [facility] Subclinica l hypothyroi dism Subclinica l hypothyroi dism Disease Active 01-04 00:00: 00 [facility] Loss of hair Loss of hair Disease Active 01-04 00:00: 00 [facility] Primary insomnia Primary insomnia Disease Active 2023-0 9-20 00:00: 00 [facility] Insomnia, unspecifie d type Insomnia, unspecifie d type Disease Active 0 20 00:00: 00 [facility] Syncope and collapse Syncope and collapse Disease Active 0 20 00:00: 00 [facility] Knee buckling, left Knee buckling, left Disease Active 10-04 00:00: 00 [facility] Moderate major depression Moderate major depression Disease Active 20 00:00: 00 [facility] Lumbar radiculopa thy, chronic Lumbar radiculopa thy, chronic Disease Active 217 00:00: 00 [facility] Primary osteoarthr itis of right knee Primary osteoarthr itis of right knee Disease Active 217 00:00: 00 [facility] Bakers cyst, right Bakers cyst, right Disease Active 2021-04 0-13 00:00: 00 [facility] Bakers cyst, right Bakers cyst, right Disease Active 2021-04 0-13 00:00: 00 [facility] Chronic neck pain Chronic neck pain Disease Active 12-23 00:00: 00 [facility] Prediabete s Prediabete s Disease Active 12-23 00:00: 00 [facility] Hidradenit is suppurativ a Hidradenit is suppurativ a Disease Active 12-08 00:00: 00 [facility] Numbness and tingling of right arm and leg Numbness and tingling of right arm and leg Disease Active 0 24 00:00: 00 [facility] Chronic pain of right knee Chronic pain of right knee Disease Active 24 00:00: 00 [facility] Right sided sciatica Right sided sciatica Disease Active 824 00:00: 00 [facility] Chronic pain of both shoulders Chronic pain of both shoulders Disease Active 12-08 00:00: 00 [facility] Degenerati ve disc disease at L5-S1 level Degenerati ve disc disease at L5-S1 level Disease Active 12-08 00:00: 00 [facility] Arthritis, multiple joint involvemen t Arthritis, multiple joint involvemen t Disease Active 12-08 00:00: 00 [facility] Chronic pain of both shoulders Chronic pain of both shoulders Disease Active 12-08 00:00: 00 [facility] Right sided sciatica Right sided sciatica Disease Active 12-08 00:00: 00 [facility] Arthritis, multiple joint involvemen t Arthritis, multiple joint involvemen t Disease Active 12-08 00:00: 00 [facility] Status post hysterosco py Status post hysterosco py Disease Active 05-06 00:00: 00 [facility] S/P lumbar discectomy S/P lumbar discectomy Disease Active 05-06 00:00: 00 [facility] Elevated TSH Elevated TSH Disease Active 05-05 00:00: 00 [facility] Chronic bilateral low back pain with right-side d sciatica Chronic bilateral low back pain with right-side d sciatica Disease Active 05-05 00:00: 00 [facility] 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 Disease Active 05-05 00:00: 00 [facility] Blood clots in stool Blood clots in stool Disease Active 2020-04 0 00:00: 00 [facility] BMI 39.0-39.9, adult BMI 39.0-39.9, adult Disease Active 2020-04 0 00:00: 00 [facility] Gastroesop hageal reflux disease without esophagiti s Gastroesop hageal reflux disease without esophagiti s Disease Active 2019-04 0 00:00: 00 [facility] Anxiety Anxiety Disease Active 2019-04 0 00:00: 00 [facility] Chronic allergic rhinitis Chronic allergic rhinitis Disease Active 12-31 00:00: 00 [facility] Asymptomat ic hypertensi ve urgency Asymptomat ic hypertensi ve urgency Disease Active 12-31 00:00: 00 [facility] Essential hypertensi on Essential hypertensi on Disease Active 01-14 00:00: 00 [facility] Renal stones Renal stones Disease Active 01-14 00:00: 00 [facility] Hepatomega ly Hepatomega ly Disease Active 01-14 00:00: 00 [facility] Non compliance w medication regimen Non compliance w medication regimen Disease Resolve d 12-31 00:00: 00 2024-08-07 00:00:00 2024-08-07 13:38:22 [facility] Encounter for weight management Encounter for weight management Disease Resolve d 1-19 00:00: 00 2022-01-28 00:00:00 2022-01-28 09:52:08 [facility] Rectal bleeding Rectal bleeding Disease Resolve d 2020-04 1-11 00:00: 00 2022-01-28 00:00:00 2022-01-28 09:52:17 Overview: Formattin g of this note might be different from the original. Added automatic ally from request for surgery [id number] [facility] Lower abdominal pain Lower abdominal pain Disease Resolve d 2020-04 0-06 00:00: 00 2022-01-28 00:00:00 2022-01-28 09:52:35 [facility] Acute maxillary sinusitis, recurrence not specified Acute maxillary sinusitis, recurrence not specified Disease Resolve d 16 00:00: 00 2022-01-28 00:00:00 2022-01-28 09:51:52 [facility] URI with cough and congestion URI with cough and congestion Disease Resolve d 16 00:00: 00 2022-01-28 00:00:00 2022-01-28 09:52:24 [facility] Encounter for insertion of Mirena IUD Encounter for insertion of Mirena IUD Disease Resolve d 0 1-20 00:00: 00 2021-05-20 00:00:00 2021-05-20 14:18:56 [facility] Pre-op evaluation Pre-op evaluation Disease Resolve d 0 1-07 00:00: 00 2021-05-20 00:00:00 2021-05-20 14:18:40 [facility] Retained intrauteri ne contracept clarissa device (IUD) Retained intrauteri ne contracept clarissa device (IUD) Disease Resolve d 1-07 00:00: 00 2021-05-20 00:00:00 2021-05-20 14:18:53 [facility] Family planning, IUD (intrauter ine device) check/rein sertion/re moval Family planning, IUD (intrauter ine device) check/rein sertion/re moval Disease Resolve d 2020-04 1-13 00:00: 00 2021-05-20 00:00:00 2021-05-20 14:18:30 [facility] Allergies, Adverse Reactions, Alerts Allergy Name Allergy Type Status Severity Reaction(s) Onset Date Inactive Date Treating Clinician Comments Source PEANUT DRUG INGREDI Active Unknown-Cmnt 0 2-17 00:00: 00 [facility] SHRIMP DRUG INGREDI Active Unknown-Cmnt 0 2-17 00:00: 00 [facility] Peanut Propensi ty to adverse reaction s Active Unknown - See comments 0 2-17 00:00: 00 Per allergy blood test [facility] Shrimp Propensi ty to adverse reaction s Active Unknown - See comments 0 2-17 00:00: 00 Per allergy blood test [facility] OXYCODON E DRUG INGREDI Active ITCHING 0 8-17 00:00: 00 [facility] Oxycodon e Propensi ty to adverse reaction s Active Itching 0 8-17 00:00: 00 [facility] Codeine Propensi ty to adverse reaction s Active Shortness of Breath 2016- 2- 00:00: 00 [facility] Oxycodon e-Acetam inophen Propensi ty to adverse reaction s Active Itching 2016-04 00:00: 00 [facility] Prometha zine Hcl Propensi ty to adverse reaction s Active Other - See comments 2016-04 00:00: 00 convulsio ns [facility] Metoclop ramide Hcl Propensi ty to adverse reaction s Active Unknown - See comments 2016-04 00:00: 00 Convulsio n [facility] PROMETHA ZINE HCL DRUG INGREDI Active High Other-Cmnt 2016-04 00:00: 00 [facility] METOCLOP RAMIDE HCL DRUG INGREDI Active High Unknown-Cmnt 2016-04 00:00: 00 [facility] CODEINE DRUG INGREDI Active SOB 2016-04 00:00: 00 [facility] OXYCODON E-ACETAM INOPHEN DRUG Active ITCHING 2016-04 00:00: 00 [facility] Family History Family Member Diagnosis Comments Start Date Stop Date Sourc e Maternal grandmother Colon Cancer [facility] Paternal grandmother Breast Cancer [facility] Social History Social Habit Start Date Stop Date Quantity Comments Source [facility]ION [facility] History of Social function 2024-10-14 00:00:00 2024-10-14 00:00:00 [facility] Alcoholic beverage intake 2024-10-14 00:00:00 2024-10-14 00:00:00 Current non-drinker of alcohol (finding) [facility] Tobacco use and exposure 2023-03-21 00:00:00 2023-03-21 00:00:00 Smokeless tobacco non-user [facility] Alcohol intake 2023-03-21 00:00:00 2023-03-21 00:00:00 Current non-drinker of alcohol (finding) [facility] Exposure to SARS-CoV-2 (event) 2022-08-02 00:00:00 2022-08-12 11:17:00 Not sure [facility] Sex assigned at 1980 00:00:00 1980 00:00:00 [facility] Smoking Status Start Date Stop Date Source Never smoked tobacco [facility] Medications Ordered Medication Name Filled Medication Name Start Date Stop Date Current Medication? Ordering Clinician Indication Dosage Frequency Signature (SIG) Comments Components Source ALPRAZolam (XANAX) tablet 1 mg ALPRAZolam (XANAX) tablet 1 mg 2024-04 0- 03:00: 00 01-17 02:53 :00 Yes 1mg 1 mg, Oral, ONCE, 1 dose, On Judi 01/16/25 at 2200, JACQUI [facility] diphenhydrA MINE (BENADRYL) injection 25 mg diphenhydrA MINE (BENADRYL) injection 25 mg 2024-04 0- 01:30: 00 01-17 01:32 :00 Yes 25mg 25 mg, Slow IV Push, ONCE, 1 dose, On Judi 01/16/25 at 2030, STAT [facility] haloperidol lactate (HALDOL) injection 2.5 mg haloperidol lactate (HALDOL) injection 2.5 mg 2024-04 0 00:30: 00 01-17 00:53 :00 Yes 2.5mg 2.5 mg, Intravenou s, ONCE, 1 dose, On Judi 01/16/25 at 1930, JACQUI, Chemical Restraint: No, Reason for Use: Management of Acute Agitation/ Delirium (NOT CHEMICAL RESTRAINT) , Indication for use of Injectable Psychotrop ics: Other, Please Specify Other Indication : Vomiting [facility] iopamidol (ISOVUE 370-500 mL) injection 100 mL iopamidol (ISOVUE 370-500 mL) injection 100 mL 2024-04 0- 00:15: 00 01-16 23:16 :00 Yes [id number] 100mL 100 mL, Intravenou s, ONCE, 1 dose, On Judi 01/16/25 at 1915, Routine [facility] losartan 50 mg tablet 2024-04 0 00:00: 00 Yes [id number] TAKE ONE (1) TABLET BY MOUTH IN THE MORNING. [facility] hydralAZINE (APRESOLINE ) injection 10 mg hydralAZINE (APRESOLINE ) injection 10 mg 2024-04 23:45: 00 01-17 00:25 :00 Yes 10mg 10 mg, Slow IV Push, ONCE, 1 dose, On Judi 01/16/25 at 1845, JACQUI [facility] NaCl 0.9% (NS) bolus infusion 2,000 mL 2024-04 23:15: 00 01-17 03:11 :00 No 2000mL at 999 mL/hr, 2,000 mL, IV Infusion, ONCE, 1 dose, On Judi 01/16/25 at 1815, JACQUI [facility] fentanyl PF (SUBLIMAZE (PF)) injection 25 mcg 2024-04 22:45: 00 01-16 22:36 :00 No 25ug 25 mcg, Slow IV Push, ONCE, 1 dose, On Judi 01/16/25 at 1745, STAT [facility] famotidine (PEPCID (PF)) 20 mg in NaCl 0.9% (NS) 5 mL IV push 2024-04 22:45: 00 01-16 22:43 :00 No 20mg 20 mg, Intravenou s, ONCE, 1 dose, On Judi 01/16/25 at 1745, Administer over 2 Minutes, 5 mL [facility] ondansetron (ZOFRAN (PF)) injection 4 mg 2024-04 22:30: 00 01-16 22:45 :00 No 4mg 4 mg, Slow IV Push, ONCE, 1 dose, On Judi 01/16/25 at 1730, Administer over 2-5 Minutes, 2 mL [facility] tiZANidine 2 mg tablet 12-09 00:00: 00 Yes [id number] 2mg TAKE 1 TABLET BY MOUTH EVERY 8 HOURS NEEDED FOR PAIN (SCALE 4-6). [facility] PANTOPRAZOL E 20 mg EC tablet 11-15 00:00: 00 Yes [id number] TAKE ONE (1) TABLET(S) BY MOUTH IN THE MORNING. [facility] desvenlafax ine succinate 50 mg 24 hr tablet 11-13 00:00: 00 Yes [id number] 50mg Take 1 tablet by mouth in the morning. [facility] meloxicam 7.5 mg tablet 11-12 00:00: 00 Yes [id number] 7.5mg Take 1 tablet by mouth in the morning. [facility] gabapentin 100 mg capsule 11-12 00:00: 00 Yes [id number] 100mg Take 1 capsule by mouth in the morning and 1 capsule at noon and 1 capsule in the evening. [facility] tiZANidine 2 mg tablet 11-12 00:00: 00 12-09 00:00 :00 No [id number] 2mg Take 1 tablet by mouth every 8 hours as needed for Pain (scale 4-6). [facility] desvenlafax ine succinate 50 mg 24 hr tablet 11-04 00:00: 00 10-21 00:00 :00 No [id number] 50mg Take 1 tablet by mouth in the morning. [facility] desvenlafax ine succinate 50 mg 24 hr tablet 10-21 00:00: 00 11-13 00:00 :00 No [id number] 50mg Take 1 tablet by mouth in the morning. [facility] desvenlafax ine succinate 25 mg 24 hr tablet 10-21 00:00: 00 10-29 04:59 :00 No [id number] 25mg Take 1 tablet by mouth in the morning for 7 days. [facility] desvenlafax ine succinate 25 mg 24 hr tablet 10-14 00:00: 00 10-21 00:00 :00 No [id number] Take 1 tablet by mouth daily for 7 days, THEN 2 tablets daily for 23 days. [facility] SERTraline (ZOLOFT) 100 mg tablet 10-08 00:00: 00 10-14 00:00 :00 No [id number] 100mg Take 1 tablet by mouth in the morning. [facility] semaglutide , weight loss, (WEGOVY) 0.25 mg/0.5 mL PnIj SC injection [id number] 09-24 00:00: 00 Yes [id number] .25mg inject 0.25 mg under the skin weekly. [facility] semaglutide , weight loss, (WEGOVY) 0.5 mg/0.5 mL PnIj SC injection [id number] 09-24 00:00: 00 Yes [id number] .5mg inject 0.5 mg under the skin weekly. [facility] semaglutide , weight loss, (WEGOVY) 1 mg/0.5 mL PnIj SC injection [id number] 09-24 00:00: 00 Yes [id number] 1mg inject 1 mg under the skin weekly. [facility] MELOXICAM 7.5 mg tablet 09-17 00:00: 00 11-12 00:00 :00 No [id number] TAKE ONE (1) TABLET(S) BY MOUTH IN THE MORNING. [facility] PANTOPRAZOL E 20 mg EC tablet 08-19 00:00: 00 11-15 00:00 :00 No [id number] TAKE ONE (1) TABLET(S) BY MOUTH IN THE MORNING. [facility] Walker (ULTRA-LIGH T ROLLATOR) Misc 08-07 00:00: 00 Yes [id number] R55/W19.XX XS/M79.604 /R06.02/I5 0.32/I51.7 /E11.3511: Use daily for ambulation /fall precaution (dispense brand covered by insurance) [facility] traZODone 50 mg tablet 08-07 00:00: 00 Yes [id number] 50mg Take 1 tablet by mouth at bedtime. [facility] metoprolol succinate XL 25 mg 24 hr tablet 08-07 00:00: 00 Yes [id number] 12.5mg Take 0.5 tablets by mouth in the morning. [facility] losartan 50 mg tablet 08-07 00:00: 00 01-17 00:00 :00 No [id number] 50mg Take 1 tablet by mouth in the morning. TAKE ONE (1) TABLET BY MOUTH IN THE MORNING. [facility] gabapentin 100 mg capsule 08-07 00:00: 00 11-12 00:00 :00 No [id number] 100mg Take 1 capsule by mouth in the morning and 1 capsule at noon and 1 capsule in the evening. [facility] SERTraline (ZOLOFT) 100 mg tablet 08-07 00:00: 00 10-08 00:00 :00 No [id number] 100mg Take 1 tablet by mouth in the morning. [facility] SERTraline (ZOLOFT) 100 mg tablet 08-05 00:00: 00 08-07 00:00 :00 No [id number] 100mg Take 1 tablet by mouth in the morning. [facility] MELOXICAM 7.5 mg tablet 07-16 00:00: 00 09-17 00:00 :00 No [id number] 7.5mg TAKE ONE (1) TABLET(S) BY MOUTH EVERY MORNING. [facility] methylPREDN ISolone sod succ (SOLU-MEDRO L (PF)) injection 40 mg 07-12 00:00: 00 07-11 23:18 :00 No [id number] 40mg 40 mg, Intramuscu lar, ONCE, 1 dose, On Mon07/11/24 at 1900, Routine [facility] hydrOXYzine 25 mg tablet 07-11 00:00: 00 08-07 00:00 :00 No [id number] 25mg Take 1 tablet by mouth every 6 (six) hours. [facility] triamcinolo ne acetonide 0.1 % ointment 07-11 00:00: 00 08-07 00:00 :00 No [id number] Apply to area(s) 2 (two) times daily. [facility] predniSONE 20 mg tablet 2025-0 3-27 00:00: 00 07-17 04:59 :00 No [id number] 20mg Take 1 tablet by mouth in the morning and 1 tablet in the evening. Do all this for 5 days. [facility] traZODone 50 mg tablet 17 00:00: 00 08-07 00:00 :00 No [id number] 50mg Take 1 tablet by mouth at bedtime. [facility] FLUoxetine (PROZAC) 40 mg capsule 06-03 00:00: 00 08-05 00:00 :00 No [id number] 40mg Take 1 capsule by mouth in the morning. [facility] FLUoxetine (PROZAC) 20 mg capsule 06-03 00:00: 00 08-05 00:00 :00 No [id number] 20mg Take 1 capsule by mouth in the morning. [facility] METOPROLOL SUCCINATE XL 25 mg 24 hr tablet 05-22 00:00: 00 08-07 00:00 :00 No [id number] TAKE ONE (1) TABLET(S) BY MOUTH IN THE MORNING. [facility] PANTOPRAZOL E 20 mg EC tablet 2 00:00: 00 08-19 00:00 :00 No [id number] 20mg TAKE ONE (1) TABLET(S) BY MOUTH EVERY MORNING. [facility] FLUoxetine (PROZAC) 40 mg capsule 1-28 00:00: 00 06-03 00:00 :00 No [id number] 40mg Take 1 capsule by mouth in the morning. [facility] MELOXICAM 7.5 mg tablet 1-19 00:00: 00 07-16 00:00 :00 No [id number] 7.5mg TAKE ONE (1) TABLET(S) BY MOUTH EVERY MORNING. [facility] iopamidol (ISOVUE 370-500 mL) injection 84 mL 2023-04 16:45: 00 03-04 16:01 :00 No [id number] 84mL 84 mL, Intravenou s, ONCE, 1 dose, On Mon03/04/24 at 1045, Routine [facility] FLUoxetine (PROZAC) 40 mg capsule 2023-04 00:00: 00 05-14 00:00 :00 No [id number] 40mg Take 1 capsule by mouth in the morning. [facility] meloxicam 7.5 mg tablet 2023-04 00:00: 00 05-05 00:00 :00 No [id number] 7.5mg Take 1 tablet by mouth in the morning. [facility] clindamycin 1 % topical solution 2023-04 00:00: 00 Yes [id number] Apply to affected area(s) 2 (two) times daily. [facility] benzoyl peroxide 10 % external wash 2023-04 00:00: 00 Yes [id number] Apply to area(s) daily. Use in shower. Rinse off thoroughly , medication can bleach fabrics. [facility] doxycycline monohydrate 100 mg capsule 2023-04 00:00: 00 08-07 00:00 :00 No [id number] 100mg Take 1 capsule by mouth in the morning and 1 capsule in the evening. Take with meals. [facility] adalimumab (TIN,ROSANNA, PEN CROHNS-UC-H S) 80 mg/0.8 mL PnKt [id number] 7224-1 1-08 00:00: 00 08-07 00:00 :00 No [id number] 80mg inject 1 Pen under the skin every 2 (two) weeks starting on day 29. [facility] LOSARTAN 50 mg tablet 2023-04 00:00: 00 08-07 00:00 :00 No [id number] TAKE ONE (1) TABLET BY MOUTH IN THE MORNING. [facility] pantoprazol e 20 mg EC tablet 2023-04 00:00: 00 05-20 00:00 :00 No [id number] 20mg Take 1 tablet by mouth in the morning. [facility] buPROPion SR 150 mg SR tablet 2023-04 00:00: 00 06-03 00:00 :00 No [id number] 150mg Take 1 tablet by mouth in the morning and 1 tablet in the evening. [facility] vitamin C with jacob hips (VITAMIN C) 1,000 mg tablet 2023-04 00:00: 00 Yes [id number] 1000mg Take 1 tablet by mouth in the morning. [facility] Melatonin 5 mg Cap 2023-04 00:00: 00 Yes [id number] 1{capsu le} Take 1 capsule by mouth at bedtime as needed for Insomnia. [facility] ergocalcife rol, vitamin d2, 1,250 mcg (50,000 unit) capsule 2023-04 00:00: 00 Yes [id number] 00014J Take 1 capsule by mouth weekly. [facility] calcium carbonate 500 mg calcium (1,250 mg) tablet 2023-04 00:00: 00 Yes [id number] 500mg Take 1 tablet by mouth in the morning. [facility] fluticasone propionate 50 mcg/actuati on nasal spray 2023-04 00:00: 00 Yes [id number] 1{spray } Use 1 Dille in each nostril in the morning. [facility] azelastine 137 mcg (0.1 %) nasal spray 2023-04 00:00: 00 Yes [id number] 1{spray } Use 1 Dille in each nostril in the morning and 1 Dille in the evening. Use in each nostril as directed [facility] gabapentin 100 mg capsule 2023-04 00:00: 00 08-07 00:00 :00 No [id number] 100mg Take 1 capsule by mouth in the morning and 1 capsule at noon and 1 capsule in the evening. [facility] traZODone 50 mg tablet 2023-04 00:00: 00 06-03 00:00 :00 No [id number] 50mg Take 1 tablet by mouth at bedtime. [facility] buPROPion 75 mg tablet 2023-04 0 00:00: 00 02-01 00:00 :00 No [id number] 75mg Take 1 tablet by mouth in the morning and 1 tablet in the evening. [facility] metoprolol succinate XL 25 mg 24 hr tablet 01-10 00:00: 00 05-22 00:00 :00 No [id number] TAKE ONE (1) TABLET(S) BY MOUTH IN THE MORNING. [facility] metoprolol succinate XL 25 mg 24 hr tablet 12-21 00:00: 00 01-10 00:00 :00 No [id number] TAKE ONE (1) TABLET(S) BY MOUTH IN THE MORNING. [facility] LEVOTHYROXI NE 25 mcg tablet 12-03 00:00: 00 03-04 00:00 :00 No [id number] TAKE ONE (1) TABLET BY MOUTH EVERY MORNING. [facility] METOPROLOL SUCCINATE XL 25 mg 24 hr tablet 11-23 00:00: 00 12-21 00:00 :00 No [id number] TAKE ONE (1) TABLET(S) BY MOUTH IN THE MORNING. [facility] METOPROLOL SUCCINATE XL 25 mg 24 hr tablet 10-15 00:00: 00 11-23 00:00 :00 No [id number] 25mg TAKE 1 TABLET BY MOUTH IN THE MORNING. [facility] MELOXICAM 7.5 mg tablet 6-04 00:00: 00 03-04 00:00 :00 No [id number] 103 TAKE ONE (1) TABLET BY MOUTH IN THE MORNING. [facility] DULOXETINE 20 mg capsule 0 6-04 00:00: 00 01-24 00:00 :00 No [id number] TAKE ONE (1) CAPSULE BY MOUTH IN THE MORNING AND 1 CAPSULE IN THE EVENING. [facility] metoprolol succinate XL 25 mg 24 hr tablet 5-28 00:00: 00 10-15 00:00 :00 No [id number] 25mg Take 1 tablet by mouth in the morning. [facility] levothyroxi ne 25 mcg tablet 2024-0 5-22 00:00: 00 12-03 00:00 :00 No [id number] TAKE ONE (1) TABLET BY MOUTH EVERY MORNING. [facility] TIZANIDINE 2 mg tablet 4-16 00:00: 00 11-12 00:00 :00 No [id number] TAKE ONE (1) TABLET(S) BY MOUTH EVERY EIGHT HOURS NEEDED. [facility] AMITRIPTYLI NE 10 mg tablet 4-16 00:00: 00 01-09 00:00 :00 No [id number] 10mg TAKE ONE (1) TABLET BY MOUTH AT BEDTIME. [facility] LOSARTAN 50 mg tablet 4-15 00:00: 00 02-20 00:00 :00 No [id number] TAKE ONE (1) TABLET BY MOUTH IN THE MORNING. [facility] TIZANIDINE 2 mg tablet 3-14 00:00: 00 Yes [id number] TAKE ONE (1) TABLET(S) BY MOUTH EVERY EIGHT HOURS NEEDED FOR MUSCLE SPASMS. [facility] MELOXICAM 7.5 mg tablet 3-04 00:00: 00 09-18 00:00 :00 No [id number] 103 TAKE ONE (1) TABLET BY MOUTH IN THE MORNING. [facility] TIZANIDINE 2 mg tablet 2-13 00:00: 00 06-28 00:00 :00 No [id number] TAKE ONE (1) TABLET(S) BY MOUTH EVERY EIGHT HOURS NEEDED FOR MUSCLE SPASMS. [facility] TIZANIDINE 2 mg tablet 0 1-15 00:00: 00 Yes [id number] TAKE ONE (1) TABLET(S) BY MOUTH EVERY EIGHT HOURS NEEDED FOR MUSCLE SPASMS. [facility] pantoprazol e 20 mg EC tablet 1-15 00:00: 00 02-20 00:00 :00 No [id number] TAKE ONE (1) TABLET(S) BY MOUTH ONCE A DAY. [facility] DULOXETINE 20 mg capsule 2022-04 2-18 00:00: 00 09-18 00:00 :00 No [id number] TAKE ONE (1) CAPSULE BY MOUTH IN THE MORNING AND 1 CAPSULE IN THE EVENING. [facility] meloxicam 7.5 mg tablet 2022-04 2-18 00:00: 00 06-18 00:00 :00 No [id number] 103 TAKE ONE (1) TABLET BY MOUTH IN THE MORNING. [facility] tiZANidine 2 mg tablet 2022-04 2-14 00:00: 00 05-01 00:00 :00 No [id number] TAKE ONE (1) TABLET(S) BY MOUTH EVERY EIGHT HOURS NEEDED FOR MUSCLE SPASMS. [facility] PANTOPRAZOL E 20 mg EC tablet 2022-04 109 00:00: 00 05-01 00:00 :00 No [id number] TAKE ONE (1) TABLET(S) BY MOUTH ONCE A DAY. [facility] meloxicam 7.5 mg tablet 01-13 00:00: 00 04-03 00:00 :00 No [id number] 103 TAKE ONE (1) TABLET BY MOUTH IN THE MORNING. [facility] Melatonin 5 mg Cap 01-04 00:00: 00 01-29 00:00 :00 No [id number] 1{capsu le} Take 1 capsule by mouth at bedtime as needed for Insomnia. [facility] metoprolol succinate XL 25 mg 24 hr tablet 01-04 00:00: 00 09-11 00:00 :00 No [id number] 25mg Take 1 tablet by mouth in the morning. [facility] levothyroxi ne 25 mcg tablet 01-04 00:00: 00 09-05 00:00 :00 No [id number] TAKE ONE (1) TABLET BY MOUTH EVERY MORNING. [facility] amitriptyli ne 10 mg tablet 01-04 00:00: 00 07-31 00:00 :00 No [id number] 10mg Take 1 tablet by mouth at bedtime. [facility] losartan 50 mg tablet 01-04 00:00: 00 07-30 00:00 :00 No [id number] 50mg Take 1 tablet by mouth in the morning. [facility] MELOXICAM 7.5 mg tablet 14 00:00: 00 01-13 00:00 :00 No [id number] 103 TAKE ONE (1) TABLET BY MOUTH IN THE MORNING. [facility] PANTOPRAZOL E 20 mg EC tablet 12-20 00:00: 00 Yes [id number] TAKE ONE (1) TABLET(S) BY MOUTH ONCE A DAY. [facility] LEVOTHYROXI NE 25 mcg tablet 12-20 00:00: 00 01-04 00:00 :00 No [id number] TAKE ONE (1) TABLET BY MOUTH EVERY MORNING. [facility] acetaminoph en (TYLENOL) tablet 1,000 mg 12-01 18:45: 00 12-01 18:30 :00 No 1000mg 1,000 mg, Oral, ONCE, 1 dose, On Judi 12/01/22 at 1345, Routine [facility] LEVOTHYROXI NE 25 mcg tablet 11-21 00:00: 00 12-20 00:00 :00 No [id number] TAKE ONE (1) TABLET BY MOUTH EVERY MORNING. [facility] tirzepatide (MOUNJARO) 5 mg/0.5 mL PnIj 11-16 00:00: 00 03-21 00:00 :00 No [id number] 5mg inject 5 mg under the skin weekly. [facility] PANTOPRAZOL E 20 mg EC tablet 10-21 00:00: 00 12-20 00:00 :00 No [id number] TAKE ONE (1) TABLET(S) BY MOUTH ONCE A DAY. [facility] LEVOTHYROXI NE 25 mcg tablet 10-21 00:00: 00 11-21 00:00 :00 No [id number] TAKE ONE (1) TABLET BY MOUTH EVERY MORNING. [facility] losartan 50 mg tablet 10-13 00:00: 00 01-04 00:00 :00 No [id number] 50mg Take 1 tablet by mouth in the morning. [facility] metoprolol succinate XL 25 mg 24 hr tablet 10-13 00:00: 00 01-04 00:00 :00 No [id number] 25mg Take 1 tablet by mouth in the morning. [facility] gadoteridol (PROHANCE-2 0 mL) injection 0.2 mL/kg 10-12 21:15: 00 10-12 21:14 :00 No [id number] .2mL/kg 0.2 mL/kg, Intravenou s, ONCE, 1 dose, On Mon10/12/22 at 1615, Routine [facility] FLUOXETINE 20 mg capsule 10-07 00:00: 00 01-04 00:00 :00 No [id number] TAKE ONE (1) CAPSULE(S) BY MOUTH IN THE MORNING. [facility] ketorolac (TORADOL) injection 60 mg 10-04 22:30: 00 10-04 22:02 :00 No [id number] 60mg [facility] cloNIDine (CATAPRES) tablet 0.2 mg 10-04 22:30: 00 10-04 22:00 :40 No [id number] .[facility]mg [facility] DUL[facility] 20 mg capsule 10-04 00:00: 00 04-03 00:00 :00 No [id number] 20mg Take 1 capsule by mouth in the morning and 1 capsule in the evening. [facility] tiZANidine 2 mg tablet 10-04 00:00: 00 03-30 00:00 :00 No [id number] 2mg Take 1 tablet by mouth every 8 (eight) hours as needed (muscle spasms). [facility] tirzepatide (MOUNJARO) 5 mg/0.5 mL PnIj 10-04 00:00: 00 11-11 00:00 :00 No [id number] 5mg inject 5 mg under the skin weekly. [facility] losartan-hy drochloroth iazide 50-12.5 mg per tablet 10-04 00:00: 00 10-13 00:00 :00 No [id number] 1{tbl} Take 1 tablet by mouth in the morning. [facility] iopamidol (ISOVUE 370-500 mL) injection 80 mL 09-28 20:15: 00 09-28 20:15 :00 No [id number] 80mL 80 mL, Intravenou s, ONCE, 1 dose, On Mon09/28/22 at 1515, Routine [facility] NaCl 0.9% (NS) bolus infusion 1,000 mL 09-28 19:15: 00 09-28 21:35 :00 No 1000mL at 999 mL/hr, 1,000 mL, IV Infusion, ONCE, 1 dose, On Mon09/28/22 at 1415, [facility] ondansetron (ZOFRAN (PF)) injection 4 mg 09-28 18:30: 00 09-28 19:03 :00 No 4mg 4 mg, Slow IV Push, ONCE, 1 dose, On Mon09/28/22 at 1330, [facility] morpHINE (4 mg/mL) injection 4 mg 09-28 18:30: 00 09-28 19:03 :00 No 4mg 4 mg, Slow IV Push, ONCE, 1 dose, On Mon09/28/22 at 1330, STAT [facility] FLUOXETINE 20 mg capsule 09-21 00:00: 00 10-04 00:00 :00 No [id number] TAKE ONE (1) CAPSULE BY MOUTH IN THE MORNING. [facility] MELOXICAM 7.5 mg tablet 09-19 00:00: 00 12-29 00:00 :00 No [id number] 103 TAKE ONE (1) TABLET BY MOUTH IN THE MORNING. [facility] LEVOTHYROXI NE 25 mcg tablet 0 6-05 00:00: 00 10-21 00:00 :00 No [id number] TAKE ONE (1) TABLET BY MOUTH EVERY MORNING. [facility] MOUNJARO 5 mg/0.5 mL PnIj 0 5-10 00:00: 00 10-04 00:00 :00 No [id number] INJECT FIVE (5) MG INTO SKIN ONCE WEEKLY. [facility] FLUOXETINE 20 mg capsule 0 5-10 00:00: 00 09-21 00:00 :00 No [id number] TAKE ONE (1) CAPSULE BY MOUTH IN THE MORNING. [facility] PANTOPRAZOL E 20 mg EC tablet 5- 00:00: 00 10-21 00:00 :00 No [id number] TAKE ONE (1) TABLET(S) BY MOUTH ONCE A DAY. [facility] LEVOTHYROXI NE 25 mcg tablet 5-03 00:00: 00 09-19 00:00 :00 No [id number] TAKE ONE (1) TABLET BY MOUTH EVERY MORNING. [facility] LEVOTHYROXI NE 25 mcg tablet 4-06 00:00: 00 Yes [id number] TAKE ONE (1) TABLET BY MOUTH EVERY MORNING. [facility] MOUNJARO 5 mg/0.5 mL PnIj 0 3-23 00:00: 00 08-24 00:00 :00 No [id number] INJECT FIVE (5) MG SUBCUTANEO USLY WEEKLY. [facility] LEVOTHYROXI NE 25 mcg tablet 0 3-09 00:00: 00 07-21 00:00 :00 No [id number] TAKE ONE (1) TABLET BY MOUTH EVERY MORNING. [facility] MOUNJARO 5 mg/0.5 mL PnIj 2022-0 2-27 00:00: 00 07-07 00:00 :00 No [id number] INJECT FIVE (5) MG SUBCUTANEO USLY WEEKLY. [facility] PANTOPRAZOL E 20 mg EC tablet 06-09 00:00: 00 08-17 00:00 :00 No [id number] TAKE ONE (1) TABLET(S) BY MOUTH ONCE A DAY. [facility] losartan-hy drochloroth iazide 50-12.5 mg per tablet 06-03 00:00: 00 10-04 00:00 :00 No [id number] 1{tbl} Take 1 tablet by mouth in the morning. [facility] LOSARTAN-HY DROCHLOROTH IAZIDE 50-12.5 mg per tablet 05-30 00:00: 00 06-03 00:00 :00 No [id number] TAKE ONE (1) TABLET(S) BY MOUTH ONCE A DAY. [facility] tirzepatide (MOUNJARO) 5 mg/0.5 mL PnIj 05-12 00:00: 00 06-13 00:00 :00 No [id number] 5mg inject 5 mg under the skin weekly. [facility] PANTOPRAZOL E 20 mg EC tablet 2021-04 00:00: 00 06-09 00:00 :00 No [id number] TAKE ONE (1) TABLET(S) BY MOUTH ONCE A DAY. [facility] LOSARTAN-HY DROCHLOROTH IAZIDE 50-12.5 mg per tablet 2021-04 2- 00:00: 00 05-30 00:00 :00 No [id number] TAKE ONE (1) TABLET(S) BY MOUTH ONCE A DAY. [facility] ondansetron (ZOFRAN (PF)) injection 4 mg 2021-04 0 13:45: 00 02-03 13:42 :00 No 4mg 4 mg, Slow IV Push, ONCE, 1 dose, On Judi 02/03/22 at 0845, [facility] ondansetron 4 mg disintegrat ing tablet 2021-04 0 00:00: 00 08-07 00:00 :00 No [id number] 4mg Take 1 tablet by mouth every 8 (eight) hours as needed for Nausea and Vomiting (N/V). [facility] LOSARTAN-HY DROCHLOROTH IAZIDE 50-12.5 mg per tablet 2021-04 00:00: 00 03-30 00:00 :00 No [id number] TAKE ONE (1) TABLET(S) BY MOUTH ONCE A DAY. [facility] meloxicam 7.5 mg tablet 2021-04 16:54: 23 01-27 00:00 :00 No 7.5mg Take 7.5 mg by mouth in the morning. [facility] amitriptyli ne 10 mg tablet 2021-04 00:00: 00 01-04 00:00 :00 No [id number] 103 10mg Take 1 tablet by mouth at bedtime. [facility] doxycycline hyclate 100 mg tablet 2021-04 00:00: 00 10-04 00:00 :00 No [id number] 100mg Take 1 tablet by mouth in the morning and 1 tablet in the evening. [facility] tiZANidine 2 mg tablet 2021-04 00:00: 00 10-04 00:00 :00 No [id number] 103 2mg Take 1 tablet by mouth at bedtime as needed (muscle spasms). [facility] meloxicam 7.5 mg tablet 2021-04 00:00: 00 09-19 00:00 :00 No [id number] 103 7.5mg Take 1 tablet by mouth in the morning. [facility] FLUoxetine 20 mg capsule 2021-04 00:00: 00 08-24 00:00 :00 No [id number] 20mg Take 1 capsule by mouth in the morning. [facility] tirzepatide (MOUNJARO) 2.5 mg/0.5 mL PnIj 2021-04 0 00:00: 00 05-12 00:00 :00 No [id number] 2.5mg inject 2.5 mg under the skin weekly. Start 2.5mg SC qWeek x 4 Weeks, then increase to 5 mg SC qWeek [facility] TRULICITY 0.75 mg/0.5 mL PnIj 12-27 00:00: 00 01-27 00:00 :00 No [id number] .75mg INJECT 0.75 MG UNDER THE SKIN WEEKLY. [facility] meloxicam 7.5 mg tablet 12-23 15:52: 42 Yes 7.5mg Take 7.5 mg by mouth in the morning. [facility] Diclofenac Sodium (VOLTAREN) 1 % gel 12-23 00:00: 00 Yes [id number] Apply to area(s) 4 (four) times daily. Apply 4 g QID on affected areas [facility] acetaminoph en 650 mg CR tablet 12-23 00:00: 00 Yes [id number] 650mg Take 1 tablet by mouth every 8 (eight) hours as needed for Pain or Fever. [facility] doxycycline hyclate 100 mg tablet 12-23 00:00: 00 01-27 00:00 :00 No [id number] 100mg Take 1 tablet by mouth in the morning and 1 tablet in the evening. [facility] LEVOTHYROXI NE 25 mcg tablet 12-22 00:00: 00 06-23 00:00 :00 No [id number] TAKE ONE (1) TABLET BY MOUTH EVERY MORNING. [facility] lidocaine 5 % ointment 12-08 00:00: 00 Yes [id number] Apply 2g to affected areas BID PRN [facility] adalimumab 40 mg/0.4 mL injection 12-08 00:00: 00 01-09 00:00 :00 No [id number] Start 160mg SC x 1 on Day 1, then 80mg SC x 1 on day 15, then 40mg SC qWeek. [facility] amitriptyli ne 10 mg tablet 12-08 00:00: 00 01-27 00:00 :00 No [id number] 10mg Take 1 tablet by mouth at bedtime. [facility] tiZANidine 2 mg tablet 8-24 00:00: 00 01-27 00:00 :00 No [id number] 2mg Take 1 tablet by mouth every 8 (eight) hours as needed (muscle spasms). [facility] LOSARTAN-HY DROCHLOROTH IAZIDE 50-12.5 mg per tablet 8-12 00:00: 00 02-02 00:00 :00 No [id number] TAKE ONE (1) TABLET(S) BY MOUTH ONCE A DAY. [facility] FLUoxetine 20 mg capsule 6-17 00:00: 00 01-27 00:00 :00 No [id number] 20mg Take 1 capsule by mouth daily. [facility] PANTOPRAZOL E 20 mg EC tablet 4-08 00:00: 00 04-13 00:00 :00 No [id number] TAKE ONE (1) TABLET(S) BY MOUTH ONCE A DAY. [facility] dulaglutide (TRULICITY) 1.5 mg/0.5 mL PnIj 3-09 00:00: 00 01-27 00:00 :00 No [id number] 1.5mg inject 1.5 mg under the skin weekly. [facility] dulaglutide (TRULICITY) 0.75 mg/0.5 mL PnIj 3-09 00:00: 00 12-27 00:00 :00 No [id number] .75mg inject 0.75 mg under the skin weekly. [facility] levothyroxi ne 25 mcg tablet 2020-04 1-02 00:00: 00 05-05 00:00 :00 No [id number] 25ug Take 1 tablet by mouth every morning. [facility] losartan-hy drochloroth iazide 50-12.5 mg per tablet 2020-04 0-06 00:00: 00 07-26 00:00 :00 No [id number] 1{tbl} Take 1 tablet by mouth daily. [facility] FLUoxetine 10 mg capsule 2020-04 0-06 00:00: 00 05-05 00:00 :00 No [id number] 10mg Take 1 capsule by mouth daily. [facility] pantoprazol e 20 mg EC tablet 2020-04 00:00: 00 04-20 00:00 :00 No [id number] 20mg Take 1 tablet by mouth daily. [facility] hydrOXYzine 50 mg tablet 2019-04 00:00: 12-23 00:00 :00 No [id number] 50mg Take 1 tablet by mouth every 8 (eight) hours as needed for Anxiety. [facility] vitamin C with jacob hips (VITAMIN C) 1,000 mg tablet 12-31 00:00: 00 01-29 00:00 :00 No [id number] 1000mg Take 1 tablet by mouth daily. [facility] Cholecalcif david, Vitamin D3, (VITAMIN D3) 125 mcg (5,000 unit) tablet 12-31 00:00: 00 01-27 00:00 :00 No [id number] 5000U Take 1 tablet by mouth daily. [facility] Immunizations Ordered Immunization Name Filled Immunization Name Date Status Comments Source HPV9 2024-10-07 00:00:00 Completed [facility] Pneumococcal 20 Conjugate, PCV20 (Prevnar 20) 2024-08-07 00:00:00 Completed [facility] HPV9 2024-08-07 00:00:00 Completed Influenza Virus Vaccine 2021-01-29 00:00:00 Completed [facility] Influenza Virus Vaccine 2021-01-29 00:00:00 Completed [facility] Influenza Virus Vaccine 2021-01-29 00:00:00 Completed [facility] Influenza Virus Vaccine 2021-01-29 00:00:00 Completed [facility] Influenza Virus Vaccine 2021-01-29 00:00:00 Completed [facility] Influenza Virus Vaccine 2021-01-29 00:00:00 Completed [facility] Influenza Virus Vaccine 2021-01-29 00:00:00 Completed [facility] Influenza Virus Vaccine 2021-01-29 00:00:00 Completed [facility] Influenza Virus Vaccine 2021-01-29 00:00:00 Completed [facility] Influenza Virus Vaccine 2021-01-29 00:00:00 Completed [facility] Influenza Virus Vaccine 2021-01-29 00:00:00 Completed [facility] Influenza Virus Vaccine 2021-01-29 00:00:00 Completed [facility] Influenza Virus Vaccine 2021-01-29 00:00:00 Completed [facility] Influenza Virus Vaccine 2021-01-29 00:00:00 Completed [facility] Influenza Virus Vaccine 2021-01-29 00:00:00 Completed [facility] Influenza Virus Vaccine 2021-01-29 00:00:00 Completed [facility] Influenza Virus Vaccine 2021-01-29 00:00:00 Completed [facility] Influenza Virus Vaccine 2021-01-29 00:00:00 Completed [facility] Influenza Virus Vaccine 2021-01-29 00:00:00 Completed [facility] Influenza Virus Vaccine 2021-01-29 00:00:00 Completed [facility] Influenza Virus Vaccine 2021-01-29 00:00:00 Completed [facility] Influenza Virus Vaccine 2021-01-29 00:00:00 Completed [facility] Influenza Virus Vaccine 2021-01-29 00:00:00 Completed [facility] Influenza Virus Vaccine 2021-01-29 00:00:00 Completed [facility] Influenza Virus Vaccine 2021-01-29 00:00:00 Completed [facility] Influenza Virus Vaccine 2021-01-29 00:00:00 Completed [facility] Influenza Virus Vaccine 2021-01-29 00:00:00 Completed [facility] Influenza Virus Vaccine 2021-01-29 00:00:00 Completed [facility] Influenza Virus Vaccine 2021-01-29 00:00:00 Completed [facility] Influenza Virus Vaccine 2021-01-29 00:00:00 Completed [facility] Influenza Virus Vaccine 2021-01-29 00:00:00 Completed [facility] Influenza Virus Vaccine 2021-01-29 00:00:00 Completed [facility] Influenza Virus Vaccine 2021-01-29 00:00:00 Completed [facility] Influenza Virus Vaccine 2021-01-29 00:00:00 Completed [facility] Influenza Virus Vaccine 2021-01-29 00:00:00 Completed [facility] Influenza Virus Vaccine 2021-01-29 00:00:00 Completed [facility] Influenza Virus Vaccine 2021-01-29 00:00:00 Completed [facility] Influenza Virus Vaccine 2021-01-29 00:00:00 Completed [facility] Influenza Virus Vaccine 2021-01-29 00:00:00 Completed [facility] Influenza Virus Vaccine 2021-01-29 00:00:00 Completed [facility] Influenza Virus Vaccine 2021-01-29 00:00:00 Completed [facility] Influenza Virus Vaccine 2021-01-29 00:00:00 Completed [facility] Influenza Virus Vaccine 2021-01-29 00:00:00 Completed [facility] Influenza Virus Vaccine 2021-01-29 00:00:00 Completed [facility] Influenza Virus Vaccine 2021-01-29 00:00:00 Completed [facility] Influenza Virus Vaccine 2021-01-29 00:00:00 Completed [facility] Influenza Virus Vaccine 2021-01-29 00:00:00 Completed [facility] Influenza Virus Vaccine 2021-01-29 00:00:00 Completed [facility] Influenza Virus Vaccine 2021-01-29 00:00:00 Completed [facility] Influenza Virus Vaccine 2021-01-29 00:00:00 Completed [facility] Influenza Virus Vaccine 2021-01-29 00:00:00 Completed [facility] Influenza Virus Vaccine 2021-01-29 00:00:00 Completed [facility] Influenza Virus Vaccine 2021-01-29 00:00:00 Completed [facility] Influenza Virus Vaccine 2021-01-29 00:00:00 Completed [facility] Influenza Virus Vaccine 2021-01-29 00:00:00 Completed [facility] Influenza Virus Vaccine 2021-01-29 00:00:00 Completed [facility] SARS-COV-2 COVID-19 PFIZER VACCINE 2020-12-11 00:00:00 Completed [facility] SARS-COV-2 COVID-19 PFIZER VACCINE 2020-12-11 00:00:00 Completed [facility] SARS-COV-2 COVID-19 PFIZER VACCINE 2020-12-11 00:00:00 Completed [facility] SARS-COV-2 COVID-19 PFIZER VACCINE 2020-12-11 00:00:00 Completed [facility] SARS-COV-2 COVID-19 PFIZER VACCINE 2020-12-11 00:00:00 Completed [facility] SARS-COV-2 COVID-19 PFIZER VACCINE 2020-12-11 00:00:00 Completed [facility] SARS-COV-2 COVID-19 PFIZER VACCINE 2020-12-11 00:00:00 Completed [facility] SARS-COV-2 COVID-19 PFIZER VACCINE 2020-12-11 00:00:00 Completed [facility] SARS-COV-2 COVID-19 PFIZER VACCINE 2020-12-11 00:00:00 Completed [facility] SARS-COV-2 COVID-19 PFIZER VACCINE 2020-12-11 00:00:00 Completed [facility] SARS-COV-2 COVID-19 PFIZER VACCINE 2020-12-11 00:00:00 Completed [facility] SARS-COV-2 COVID-19 PFIZER VACCINE 2020-12-11 00:00:00 Completed [facility] SARS-COV-2 COVID-19 PFIZER VACCINE 2020-12-11 00:00:00 Completed [facility] SARS-COV-2 COVID-19 PFIZER VACCINE 2020-12-11 00:00:00 Completed [facility] SARS-COV-2 COVID-19 PFIZER VACCINE 2020-12-11 00:00:00 Completed [facility] SARS-COV-2 COVID-19 PFIZER VACCINE 2020-12-11 00:00:00 Completed [facility] SARS-COV-2 COVID-19 PFIZER VACCINE 2020-12-11 00:00:00 Completed [facility] SARS-COV-2 COVID-19 PFIZER VACCINE 2020-12-11 00:00:00 Completed [facility] SARS-COV-2 COVID-19 PFIZER VACCINE 2020-12-11 00:00:00 Completed [facility] SARS-COV-2 COVID-19 PFIZER VACCINE 2020-12-11 00:00:00 Completed [facility] SARS-COV-2 COVID-19 PFIZER VACCINE 2020-12-11 00:00:00 Completed [facility] SARS-COV-2 COVID-19 PFIZER VACCINE 2020-12-11 00:00:00 Completed [facility] SARS-COV-2 COVID-19 PFIZER VACCINE 2020-12-11 00:00:00 Completed [facility] SARS-COV-2 COVID-19 PFIZER VACCINE 2020-12-11 00:00:00 Completed [facility] SARS-COV-2 COVID-19 PFIZER VACCINE 2020-12-11 00:00:00 Completed [facility] SARS-COV-2 COVID-19 PFIZER VACCINE 2020-12-11 00:00:00 Completed [facility] SARS-COV-2 COVID-19 PFIZER VACCINE 2020-12-11 00:00:00 Completed [facility] SARS-COV-2 COVID-19 PFIZER VACCINE 2020-12-11 00:00:00 Completed [facility] SARS-COV-2 COVID-19 PFIZER VACCINE 2020-12-11 00:00:00 Completed [facility] SARS-COV-2 COVID-19 PFIZER VACCINE 2020-12-11 00:00:00 Completed [facility] SARS-COV-2 COVID-19 PFIZER VACCINE 2020-12-11 00:00:00 Completed [facility] SARS-COV-2 COVID-19 PFIZER VACCINE 2020-12-11 00:00:00 Completed [facility] SARS-COV-2 COVID-19 PFIZER VACCINE 2020-12-11 00:00:00 Completed [facility] SARS-COV-2 COVID-19 PFIZER VACCINE 2020-12-11 00:00:00 Completed [facility] SARS-COV-2 COVID-19 PFIZER VACCINE 2020-12-11 00:00:00 Completed [facility] SARS-COV-2 COVID-19 PFIZER VACCINE 2020-12-11 00:00:00 Completed [facility] SARS-COV-2 COVID-19 PFIZER VACCINE 2020-12-11 00:00:00 Completed [facility] SARS-COV-2 COVID-19 PFIZER VACCINE 2020-12-11 00:00:00 Completed [facility] SARS-COV-2 COVID-19 PFIZER VACCINE 2020-12-11 00:00:00 Completed [facility] SARS-COV-2 COVID-19 PFIZER VACCINE 2020-12-11 00:00:00 Completed [facility] SARS-COV-2 COVID-19 PFIZER VACCINE 2020-12-11 00:00:00 Completed [facility] SARS-COV-2 COVID-19 PFIZER VACCINE 2020-12-11 00:00:00 Completed [facility] SARS-COV-2 COVID-19 PFIZER VACCINE 2020-12-11 00:00:00 Completed [facility] SARS-COV-2 COVID-19 PFIZER VACCINE 2020-12-11 00:00:00 Completed [facility] SARS-COV-2 COVID-19 PFIZER VACCINE 2020-12-11 00:00:00 Completed [facility] SARS-COV-2 COVID-19 PFIZER VACCINE 2020-12-11 00:00:00 Completed [facility] SARS-COV-2 COVID-19 PFIZER VACCINE 2020-12-11 00:00:00 Completed [facility] SARS-COV-2 COVID-19 PFIZER VACCINE 2020-12-11 00:00:00 Completed [facility] SARS-COV-2 COVID-19 PFIZER VACCINE 2020-12-11 00:00:00 Completed [facility] SARS-COV-2 COVID-19 PFIZER VACCINE 2020-12-11 00:00:00 Completed [facility] SARS-COV-2 COVID-19 PFIZER VACCINE 2020-12-11 00:00:00 Completed [facility] SARS-COV-2 COVID-19 PFIZER VACCINE 2020-12-11 00:00:00 Completed [facility] SARS-COV-2 COVID-19 PFIZER VACCINE 2020-12-11 00:00:00 Completed [facility] SARS-COV-2 COVID-19 PFIZER VACCINE 2020-12-11 00:00:00 Completed [facility] SARS-COV-2 COVID-19 PFIZER VACCINE 2020-12-11 00:00:00 Completed [facility] SARS-COV-2 COVID-19 PFIZER VACCINE 2020-12-11 00:00:00 Completed [facility] SARS-COV-2 COVID-19 PFIZER VACCINE 2020-11-14 00:00:00 Completed [facility] SARS-COV-2 COVID-19 PFIZER VACCINE 2020-11-14 00:00:00 Completed [facility] SARS-COV-2 COVID-19 PFIZER VACCINE 2020-11-14 00:00:00 Completed [facility] SARS-COV-2 COVID-19 PFIZER VACCINE 2020-11-14 00:00:00 Completed [facility] SARS-COV-2 COVID-19 PFIZER VACCINE 2020-11-14 00:00:00 Completed [facility] SARS-COV-2 COVID-19 PFIZER VACCINE 2020-11-14 00:00:00 Completed [facility] SARS-COV-2 COVID-19 PFIZER VACCINE 2020-11-14 00:00:00 Completed [facility] SARS-COV-2 COVID-19 PFIZER VACCINE 2020-11-14 00:00:00 Completed [facility] SARS-COV-2 COVID-19 PFIZER VACCINE 2020-11-14 00:00:00 Completed [facility] SARS-COV-2 COVID-19 PFIZER VACCINE 2020-11-14 00:00:00 Completed [facility] SARS-COV-2 COVID-19 PFIZER VACCINE 2020-11-14 00:00:00 Completed [facility] SARS-COV-2 COVID-19 PFIZER VACCINE 2020-11-14 00:00:00 Completed [facility] SARS-COV-2 COVID-19 PFIZER VACCINE 2020-11-14 00:00:00 Completed [facility] SARS-COV-2 COVID-19 PFIZER VACCINE 2020-11-14 00:00:00 Completed [facility] SARS-COV-2 COVID-19 PFIZER VACCINE 2020-11-14 00:00:00 Completed [facility] SARS-COV-2 COVID-19 PFIZER VACCINE 2020-11-14 00:00:00 Completed [facility] SARS-COV-2 COVID-19 PFIZER VACCINE 2020-11-14 00:00:00 Completed [facility] SARS-COV-2 COVID-19 PFIZER VACCINE 2020-11-14 00:00:00 Completed [facility] SARS-COV-2 COVID-19 PFIZER VACCINE 2020-11-14 00:00:00 Completed [facility] SARS-COV-2 COVID-19 PFIZER VACCINE 2020-11-14 00:00:00 Completed [facility] SARS-COV-2 COVID-19 PFIZER VACCINE 2020-11-14 00:00:00 Completed [facility] SARS-COV-2 COVID-19 PFIZER VACCINE 2020-11-14 00:00:00 Completed [facility] SARS-COV-2 COVID-19 PFIZER VACCINE 2020-11-14 00:00:00 Completed [facility] SARS-COV-2 COVID-19 PFIZER VACCINE 2020-11-14 00:00:00 Completed [facility] SARS-COV-2 COVID-19 PFIZER VACCINE 2020-11-14 00:00:00 Completed [facility] SARS-COV-2 COVID-19 PFIZER VACCINE 2020-11-14 00:00:00 Completed [facility] SARS-COV-2 COVID-19 PFIZER VACCINE 2020-11-14 00:00:00 Completed [facility] SARS-COV-2 COVID-19 PFIZER VACCINE 2020-11-14 00:00:00 Completed [facility] SARS-COV-2 COVID-19 PFIZER VACCINE 2020-11-14 00:00:00 Completed [facility] SARS-COV-2 COVID-19 PFIZER VACCINE 2020-11-14 00:00:00 Completed [facility] SARS-COV-2 COVID-19 PFIZER VACCINE 2020-11-14 00:00:00 Completed [facility] SARS-COV-2 COVID-19 PFIZER VACCINE 2020-11-14 00:00:00 Completed [facility] SARS-COV-2 COVID-19 PFIZER VACCINE 2020-11-14 00:00:00 Completed [facility] SARS-COV-2 COVID-19 PFIZER VACCINE 2020-11-14 00:00:00 Completed [facility] SARS-COV-2 COVID-19 PFIZER VACCINE 2020-11-14 00:00:00 Completed [facility] SARS-COV-2 COVID-19 PFIZER VACCINE 2020-11-14 00:00:00 Completed [facility] SARS-COV-2 COVID-19 PFIZER VACCINE 2020-11-14 00:00:00 Completed [facility] SARS-COV-2 COVID-19 PFIZER VACCINE 2020-11-14 00:00:00 Completed [facility] SARS-COV-2 COVID-19 PFIZER VACCINE 2020-11-14 00:00:00 Completed [facility] SARS-COV-2 COVID-19 PFIZER VACCINE 2020-11-14 00:00:00 Completed [facility] SARS-COV-2 COVID-19 PFIZER VACCINE 2020-11-14 00:00:00 Completed [facility] SARS-COV-2 COVID-19 PFIZER VACCINE 2020-11-14 00:00:00 Completed [facility] SARS-COV-2 COVID-19 PFIZER VACCINE 2020-11-14 00:00:00 Completed [facility] SARS-COV-2 COVID-19 PFIZER VACCINE 2020-11-14 00:00:00 Completed [facility] SARS-COV-2 COVID-19 PFIZER VACCINE 2020-11-14 00:00:00 Completed [facility] SARS-COV-2 COVID-19 PFIZER VACCINE 2020-11-14 00:00:00 Completed [facility] SARS-COV-2 COVID-19 PFIZER VACCINE 2020-11-14 00:00:00 Completed [facility] SARS-COV-2 COVID-19 PFIZER VACCINE 2020-11-14 00:00:00 Completed [facility] SARS-COV-2 COVID-19 PFIZER VACCINE 2020-11-14 00:00:00 Completed [facility] SARS-COV-2 COVID-19 PFIZER VACCINE 2020-11-14 00:00:00 Completed [facility] SARS-COV-2 COVID-19 PFIZER VACCINE 2020-11-14 00:00:00 Completed [facility] SARS-COV-2 COVID-19 PFIZER VACCINE 2020-11-14 00:00:00 Completed [facility] SARS-COV-2 COVID-19 PFIZER VACCINE 2020-11-14 00:00:00 Completed [facility] SARS-COV-2 COVID-19 PFIZER VACCINE 2020-11-14 00:00:00 Completed [facility] SARS-COV-2 COVID-19 PFIZER VACCINE 2020-11-14 00:00:00 Completed [facility] SARS-COV-2 COVID-19 PFIZER VACCINE 2020-11-14 00:00:00 Completed [facility] TDAP 2019-01-14 00:00:00 Completed [facility] Influenza Virus Vaccine Quad .5 mL IM 6+ MO 2019-01-14 00:00:00 Completed [facility] TDAP 2019-01-14 00:00:00 Completed [facility] Influenza Virus Vaccine Quad .5 mL IM 6+ MO 2019-01-14 00:00:00 Completed [facility] TDAP 2019-01-14 00:00:00 Completed [facility] Influenza Virus Vaccine Quad .5 mL IM 6+ MO 2019-01-14 00:00:00 Completed [facility] TDAP 2019-01-14 00:00:00 Completed [facility] Influenza Virus Vaccine Quad .5 mL IM 6+ MO 2019-01-14 00:00:00 Completed [facility] TDAP 2019-01-14 00:00:00 Completed [facility] Influenza Virus Vaccine Quad .5 mL IM 6+ MO 2019-01-14 00:00:00 Completed [facility] TDAP 2019-01-14 00:00:00 Completed [facility] Influenza Virus Vaccine Quad .5 mL IM 6+ MO 2019-01-14 00:00:00 Completed [facility] TDAP 2019-01-14 00:00:00 Completed [facility] Influenza Virus Vaccine Quad .5 mL IM 6+ MO 2019-01-14 00:00:00 Completed [facility] TDAP 2019-01-14 00:00:00 Completed [facility] Influenza Virus Vaccine Quad .5 mL IM 6+ MO 2019-01-14 00:00:00 Completed [facility] TDAP 2019-01-14 00:00:00 Completed [facility] Influenza Virus Vaccine Quad .5 mL IM 6+ MO 2019-01-14 00:00:00 Completed [facility] TDAP 2019-01-14 00:00:00 Completed [facility] Influenza Virus Vaccine Quad .5 mL IM 6+ MO 2019-01-14 00:00:00 Completed [facility] TDAP 2019-01-14 00:00:00 Completed [facility] Influenza Virus Vaccine Quad .5 mL IM 6+ MO 2019-01-14 00:00:00 Completed [facility] TDAP 2019-01-14 00:00:00 Completed [facility] Influenza Virus Vaccine Quad .5 mL IM 6+ MO 2019-01-14 00:00:00 Completed [facility] TDAP 2019-01-14 00:00:00 Completed [facility] Influenza Virus Vaccine Quad .5 mL IM 6+ MO 2019-01-14 00:00:00 Completed [facility] TDAP 2019-01-14 00:00:00 Completed [facility] Influenza Virus Vaccine Quad .5 mL IM 6+ MO 2019-01-14 00:00:00 Completed [facility] TDAP 2019-01-14 00:00:00 Completed [facility] Influenza Virus Vaccine Quad .5 mL IM 6+ MO 2019-01-14 00:00:00 Completed [facility] TDAP 2019-01-14 00:00:00 Completed [facility] Influenza Virus Vaccine Quad .5 mL IM 6+ MO 2019-01-14 00:00:00 Completed [facility] TDAP 2019-01-14 00:00:00 Completed [facility] Influenza Virus Vaccine Quad .5 mL IM 6+ MO 2019-01-14 00:00:00 Completed [facility] TDAP 2019-01-14 00:00:00 Completed [facility] Influenza Virus Vaccine Quad .5 mL IM 6+ MO 2019-01-14 00:00:00 Completed [facility] TDAP 2019-01-14 00:00:00 Completed [facility] Influenza Virus Vaccine Quad .5 mL IM 6+ MO 2019-01-14 00:00:00 Completed [facility] TDAP 2019-01-14 00:00:00 Completed [facility] Influenza Virus Vaccine Quad .5 mL IM 6+ MO 2019-01-14 00:00:00 Completed [facility] TDAP 2019-01-14 00:00:00 Completed [facility] Influenza Virus Vaccine Quad .5 mL IM 6+ MO 2019-01-14 00:00:00 Completed [facility] TDAP 2019-01-14 00:00:00 Completed [facility] Influenza Virus Vaccine Quad .5 mL IM 6+ MO 2019-01-14 00:00:00 Completed [facility] TDAP 2019-01-14 00:00:00 Completed [facility] Influenza Virus Vaccine Quad .5 mL IM 6+ MO 2019-01-14 00:00:00 Completed [facility] TDAP 2019-01-14 00:00:00 Completed [facility] Influenza Virus Vaccine Quad .5 mL IM 6+ MO 2019-01-14 00:00:00 Completed [facility] TDAP 2019-01-14 00:00:00 Completed [facility] Influenza Virus Vaccine Quad .5 mL IM 6+ MO 2019-01-14 00:00:00 Completed [facility] TDAP 2019-01-14 00:00:00 Completed [facility] Influenza Virus Vaccine Quad .5 mL IM 6+ MO 2019-01-14 00:00:00 Completed [facility] TDAP 2019-01-14 00:00:00 Completed [facility] Influenza Virus Vaccine Quad .5 mL IM 6+ MO 2019-01-14 00:00:00 Completed [facility] TDAP 2019-01-14 00:00:00 Completed [facility] Influenza Virus Vaccine Quad .5 mL IM 6+ MO 2019-01-14 00:00:00 Completed [facility] TDAP 2019-01-14 00:00:00 Completed [facility] Influenza Virus Vaccine Quad .5 mL IM 6+ MO 2019-01-14 00:00:00 Completed [facility] TDAP 2019-01-14 00:00:00 Completed [facility] Influenza Virus Vaccine Quad .5 mL IM 6+ MO 2019-01-14 00:00:00 Completed [facility] TDAP 2019-01-14 00:00:00 Completed [facility] Influenza Virus Vaccine Quad .5 mL IM 6+ MO 2019-01-14 00:00:00 Completed [facility] TDAP 2019-01-14 00:00:00 Completed [facility] Influenza Virus Vaccine Quad .5 mL IM 6+ MO 2019-01-14 00:00:00 Completed [facility] TDAP 2019-01-14 00:00:00 Completed [facility] Influenza Virus Vaccine Quad .5 mL IM 6+ MO 2019-01-14 00:00:00 Completed [facility] TDAP 2019-01-14 00:00:00 Completed [facility] Influenza Virus Vaccine Quad .5 mL IM 6+ MO 2019-01-14 00:00:00 Completed [facility] TDAP 2019-01-14 00:00:00 Completed [facility] Influenza Virus Vaccine Quad .5 mL IM 6+ MO 2019-01-14 00:00:00 Completed [facility] TDAP 2019-01-14 00:00:00 Completed [facility] Influenza Virus Vaccine Quad .5 mL IM 6+ MO 2019-01-14 00:00:00 Completed [facility] TDAP 2019-01-14 00:00:00 Completed [facility] Influenza Virus Vaccine Quad .5 mL IM 6+ MO 2019-01-14 00:00:00 Completed [facility] TDAP 2019-01-14 00:00:00 Completed [facility] Influenza Virus Vaccine Quad .5 mL IM 6+ MO 2019-01-14 00:00:00 Completed [facility] TDAP 2019-01-14 00:00:00 Completed [facility] Influenza Virus Vaccine Quad .5 mL IM 6+ MO 2019-01-14 00:00:00 Completed [facility] TDAP 2019-01-14 00:00:00 Completed [facility] Influenza Virus Vaccine Quad .5 mL IM 6+ MO 2019-01-14 00:00:00 Completed [facility] TDAP 2019-01-14 00:00:00 Completed [facility] Influenza Virus Vaccine Quad .5 mL IM 6+ MO 2019-01-14 00:00:00 Completed [facility] TDAP 2019-01-14 00:00:00 Completed [facility] Influenza Virus Vaccine Quad .5 mL IM 6+ MO 2019-01-14 00:00:00 Completed [facility] TDAP 2019-01-14 00:00:00 Completed [facility] Influenza Virus Vaccine Quad .5 mL IM 6+ MO 2019-01-14 00:00:00 Completed [facility] TDAP 2019-01-14 00:00:00 Completed [facility] Influenza Virus Vaccine Quad .5 mL IM 6+ MO 2019-01-14 00:00:00 Completed [facility] TDAP 2019-01-14 00:00:00 Completed [facility] Influenza Virus Vaccine Quad .5 mL IM 6+ MO 2019-01-14 00:00:00 Completed [facility] TDAP 2019-01-14 00:00:00 Completed [facility] Influenza Virus Vaccine Quad .5 mL IM 6+ MO 2019-01-14 00:00:00 Completed [facility] TDAP 2019-01-14 00:00:00 Completed [facility] Influenza Virus Vaccine Quad .5 mL IM 6+ MO 2019-01-14 00:00:00 Completed [facility] TDAP 2019-01-14 00:00:00 Completed [facility] Influenza Virus Vaccine Quad .5 mL IM 6+ MO 2019-01-14 00:00:00 Completed [facility] TDAP 2019-01-14 00:00:00 Completed [facility] Influenza Virus Vaccine Quad .5 mL IM 6+ MO 2019-01-14 00:00:00 Completed [facility] TDAP 2019-01-14 00:00:00 Completed [facility] Influenza Virus Vaccine Quad .5 mL IM 6+ MO 2019-01-14 00:00:00 Completed [facility] TDAP 2019-01-14 00:00:00 Completed [facility] Influenza Virus Vaccine Quad .5 mL IM 6+ MO (FLUZONE/FLULAVAL/F LUARIX) 2019-01-14 00:00:00 Completed [facility] TDAP 2019-01-14 00:00:00 Completed [facility] Influenza Virus Vaccine Quad .5 mL IM 6+ MO (FLUZONE/FLULAVAL/F LUARIX) 2019-01-14 00:00:00 Completed [facility] TDAP 2019-01-14 00:00:00 Completed [facility] Influenza Virus Vaccine Quad .5 mL IM 6+ MO (FLUZONE/FLULAVAL/F LUARIX) 2019-01-14 00:00:00 Completed [facility] TDAP 2019-01-14 00:00:00 Completed [facility] Influenza Virus Vaccine Quad .5 mL IM 6+ MO (FLUZONE/FLULAVAL/F LUARIX) 2019-01-14 00:00:00 Completed [facility] TDAP 2019-01-14 00:00:00 Completed [facility] Influenza Virus Vaccine Quad .5 mL IM 6+ MO (FLUZONE/FLULAVAL/F LUARIX) 2019-01-14 00:00:00 Completed TDAP 2019-01-14 00:00:00 Completed [facility] Influenza Virus Vaccine Quad .5 mL IM 6+ MO (FLUZONE/FLULAVAL/F LUARIX) 2019-01-14 00:00:00 Completed TDAP Unknown Completed [facility] Influenza Virus Vaccine Quad .5 mL IM 6+ MO (FLUZONE/FLULAVAL/F LUARIX) Unknown Completed [facility] SARS-COV-2 COVID-19 PFIZER VACCINE Unknown Completed [facility] Influenza Virus Vaccine Unknown Completed [facility] TDAP Unknown Completed [facility] Influenza Virus Vaccine Quad .5 mL IM 6+ MO (FLUZONE/FLULAVAL/F LUARIX) Unknown Completed [facility] SARS-COV-2 COVID-19 PFIZER VACCINE Unknown Completed [facility] Influenza Virus Vaccine Unknown Completed [facility] TDAP Unknown Completed [facility] Influenza Virus Vaccine Quad .5 mL IM 6+ MO (FLUZONE/FLULAVAL/F LUARIX) Unknown Completed [facility] SARS-COV-2 COVID-19 PFIZER VACCINE Unknown Completed [facility] Influenza Virus Vaccine Unknown Completed [facility] TDAP Unknown Completed [facility] Influenza Virus Vaccine Quad .5 mL IM 6+ MO (FLUZONE/FLULAVAL/F LUARIX) Unknown Completed [facility] SARS-COV-2 COVID-19 PFIZER VACCINE Unknown Completed [facility] Influenza Virus Vaccine Unknown Completed [facility] TDAP Unknown Completed [facility] Influenza Virus Vaccine Quad .5 mL IM 6+ MO (FLUZONE/FLULAVAL/F LUARIX) Unknown Completed [facility] SARS-COV-2 COVID-19 PFIZER VACCINE Unknown Completed [facility] Influenza Virus Vaccine Unknown Completed [facility] TDAP Unknown Completed [facility] Influenza Virus Vaccine Quad .5 mL IM 6+ MO (FLUZONE/FLULAVAL/F LUARIX) Unknown Completed [facility] SARS-COV-2 COVID-19 PFIZER VACCINE Unknown Completed [facility] Influenza Virus Vaccine Unknown Completed [facility] TDAP Unknown Completed [facility] Influenza Virus Vaccine Quad .5 mL IM 6+ MO (FLUZONE/FLULAVAL/F LUARIX) Unknown Completed [facility] SARS-COV-2 COVID-19 PFIZER VACCINE Unknown Completed [facility] Influenza Virus Vaccine Unknown Completed [facility] TDAP Unknown Completed [facility] Influenza Virus Vaccine Quad .5 mL IM 6+ MO (FLUZONE/FLULAVAL/F LUARIX) Unknown Completed [facility] SARS-COV-2 COVID-19 PFIZER VACCINE Unknown Completed [facility] Influenza Virus Vaccine Unknown Completed [facility] TDAP Unknown Completed [facility] Influenza Virus Vaccine Quad .5 mL IM 6+ MO (FLUZONE/FLULAVAL/F LUARIX) Unknown Completed [facility] SARS-COV-2 COVID-19 PFIZER VACCINE Unknown Completed [facility] Influenza Virus Vaccine Unknown Completed [facility] TDAP Unknown Completed [facility] Influenza Virus Vaccine Quad .5 mL IM 6+ MO (FLUZONE/FLULAVAL/F LUARIX) Unknown Completed [facility] SARS-COV-2 COVID-19 PFIZER VACCINE Unknown Completed [facility] Influenza Virus Vaccine Unknown Completed [facility] TDAP Unknown Completed [facility] Influenza Virus Vaccine Quad .5 mL IM 6+ MO (FLUZONE/FLULAVAL/F LUARIX) Unknown Completed [facility] SARS-COV-2 COVID-19 PFIZER VACCINE Unknown Completed [facility] Influenza Virus Vaccine Unknown Completed [facility] TDAP Unknown Completed [facility] Influenza Virus Vaccine Quad .5 mL IM 6+ MO (FLUZONE/FLULAVAL/F LUARIX) Unknown Completed [facility] SARS-COV-2 COVID-19 PFIZER VACCINE Unknown Completed [facility] Influenza Virus Vaccine Unknown Completed [facility] TDAP Unknown Completed [facility] Influenza Virus Vaccine Quad .5 mL IM 6+ MO (FLUZONE/FLULAVAL/F LUARIX) Unknown Completed [facility] SARS-COV-2 COVID-19 PFIZER VACCINE Unknown Completed [facility] Influenza Virus Vaccine Unknown Completed [facility] TDAP Unknown Completed [facility] Influenza Virus Vaccine Quad .5 mL IM 6+ MO (FLUZONE/FLULAVAL/F LUARIX) Unknown Completed [facility] SARS-COV-2 COVID-19 PFIZER VACCINE Unknown Completed [facility] TDAP Unknown Completed [facility] Influenza Virus Vaccine Quad .5 mL IM 6+ MO (FLUZONE/FLULAVAL/F LUARIX) Unknown Completed [facility] SARS-COV-2 COVID-19 PFIZER VACCINE Unknown Completed [facility] TDAP Unknown Completed [facility] Influenza Virus Vaccine Quad .5 mL IM 6+ MO (FLUZONE/FLULAVAL/F LUARIX) Unknown Completed [facility] SARS-COV-2 COVID-19 PFIZER VACCINE Unknown Completed [facility] Influenza Virus Vaccine Unknown Completed [facility] TDAP Unknown Completed [facility] Influenza Virus Vaccine Quad .5 mL IM 6+ MO (FLUZONE/FLULAVAL/F LUARIX) Unknown Completed [facility] SARS-COV-2 COVID-19 PFIZER VACCINE Unknown Completed [facility] Influenza Virus Vaccine Unknown Completed [facility] TDAP Unknown Completed [facility] Influenza Virus Vaccine Quad .5 mL IM 6+ MO (FLUZONE/FLULAVAL/F LUARIX) Unknown Completed [facility] SARS-COV-2 COVID-19 PFIZER VACCINE Unknown Completed [facility] Influenza Virus Vaccine Unknown Completed [facility] TDAP Unknown Completed [facility] Influenza Virus Vaccine Quad .5 mL IM 6+ MO (FLUZONE/FLULAVAL/F LUARIX) Unknown Completed [facility] SARS-COV-2 COVID-19 PFIZER VACCINE Unknown Completed [facility] Influenza Virus Vaccine Unknown Completed [facility] TDAP Unknown Completed [facility] Influenza Virus Vaccine Quad .5 mL IM 6+ MO (FLUZONE/FLULAVAL/F LUARIX) Unknown Completed [facility] SARS-COV-2 COVID-19 PFIZER VACCINE Unknown Completed [facility] Influenza Virus Vaccine Unknown Completed [facility] TDAP Unknown Completed [facility] Influenza Virus Vaccine Quad .5 mL IM 6+ MO (FLUZONE/FLULAVAL/F LUARIX) Unknown Completed [facility] SARS-COV-2 COVID-19 PFIZER VACCINE Unknown Completed [facility] Influenza Virus Vaccine Unknown Completed [facility] TDAP Unknown Completed [facility] Influenza Virus Vaccine Quad .5 mL IM 6+ MO (FLUZONE/FLULAVAL/F LUARIX) Unknown Completed [facility] Influenza Virus Vaccine Unknown Completed [facility] SARS-COV-2 COVID-19 PFIZER VACCINE Unknown Completed [facility] TDAP Unknown Completed [facility] Influenza Virus Vaccine Quad .5 mL IM 6+ MO (FLUZONE/FLULAVAL/F LUARIX) Unknown Completed [facility] SARS-COV-2 COVID-19 PFIZER VACCINE Unknown Completed [facility] Influenza Virus Vaccine Unknown Completed [facility] TDAP Unknown Completed [facility] Influenza Virus Vaccine Quad .5 mL IM 6+ MO (FLUZONE/FLULAVAL/F LUARIX) Unknown Completed [facility] Influenza Virus Vaccine Unknown Completed [facility] SARS-COV-2 COVID-19 PFIZER VACCINE Unknown Completed [facility] TDAP Unknown Completed [facility] Influenza Virus Vaccine Quad .5 mL IM 6+ MO (FLUZONE/FLULAVAL/F LUARIX) Unknown Completed [facility] SARS-COV-2 COVID-19 PFIZER VACCINE Unknown Completed [facility] Influenza Virus Vaccine Unknown Completed [facility] TDAP Unknown Completed [facility] Influenza Virus Vaccine Quad .5 mL IM 6+ MO (FLUZONE/FLULAVAL/F LUARIX) Unknown Completed [facility] SARS-COV-2 COVID-19 PFIZER VACCINE Unknown Completed [facility] Influenza Virus Vaccine Unknown Completed [facility] TDAP Unknown Completed [facility] Influenza Virus Vaccine Quad .5 mL IM 6+ MO (FLUZONE/FLULAVAL/F LUARIX) Unknown Completed [facility] SARS-COV-2 COVID-19 PFIZER VACCINE Unknown Completed [facility] Influenza Virus Vaccine Unknown Completed [facility] TDAP Unknown Completed [facility] Influenza Virus Vaccine Quad .5 mL IM 6+ MO (FLUZONE/FLULAVAL/F LUARIX) Unknown Completed [facility] SARS-COV-2 COVID-19 PFIZER VACCINE Unknown Completed [facility] Influenza Virus Vaccine Unknown Completed [facility] TDAP Unknown Completed [facility] Influenza Virus Vaccine Quad .5 mL IM 6+ MO (FLUZONE/FLULAVAL/F LUARIX) Unknown Completed [facility] SARS-COV-2 COVID-19 PFIZER VACCINE Unknown Completed [facility] Influenza Virus Vaccine Unknown Completed [facility] TDAP Unknown Completed [facility] Influenza Virus Vaccine Quad .5 mL IM 6+ MO (FLUZONE/FLULAVAL/F LUARIX) Unknown Completed [facility] SARS-COV-2 COVID-19 PFIZER VACCINE Unknown Completed [facility] Influenza Virus Vaccine Unknown Completed [facility] TDAP Unknown Completed [facility] Influenza Virus Vaccine Quad .5 mL IM 6+ MO (FLUZONE/FLULAVAL/F LUARIX) Unknown Completed [facility] SARS-COV-2 COVID-19 PFIZER VACCINE Unknown Completed [facility] Influenza Virus Vaccine Unknown Completed [facility] TDAP Unknown Completed [facility] Influenza Virus Vaccine Quad .5 mL IM 6+ MO (FLUZONE/FLULAVAL/F LUARIX) Unknown Completed [facility] SARS-COV-2 COVID-19 PFIZER VACCINE Unknown Completed [facility] Influenza Virus Vaccine Unknown Completed [facility] TDAP Unknown Completed [facility] Influenza Virus Vaccine Quad .5 mL IM 6+ MO (FLUZONE/FLULAVAL/F LUARIX) Unknown Completed [facility] SARS-COV-2 COVID-19 PFIZER VACCINE Unknown Completed [facility] Influenza Virus Vaccine Unknown Completed [facility] TDAP Unknown Completed [facility] Influenza Virus Vaccine Quad .5 mL IM 6+ MO (FLUZONE/FLULAVAL/F LUARIX) Unknown Completed [facility] SARS-COV-2 COVID-19 PFIZER VACCINE Unknown Completed [facility] Influenza Virus Vaccine Unknown Completed [facility] TDAP Unknown Completed [facility] Influenza Virus Vaccine Quad .5 mL IM 6+ MO (FLUZONE/FLULAVAL/F LUARIX) Unknown Completed [facility] SARS-COV-2 COVID-19 PFIZER VACCINE Unknown Completed [facility] Influenza Virus Vaccine Unknown Completed [facility] TDAP Unknown Completed [facility] Influenza Virus Vaccine Quad .5 mL IM 6+ MO (FLUZONE/FLULAVAL/F LUARIX) Unknown Completed [facility] SARS-COV-2 COVID-19 PFIZER VACCINE Unknown Completed [facility] Influenza Virus Vaccine Unknown Completed [facility] TDAP Unknown Completed [facility] Influenza Virus Vaccine Quad .5 mL IM 6+ MO (FLUZONE/FLULAVAL/F LUARIX) Unknown Completed [facility] SARS-COV-2 COVID-19 PFIZER VACCINE Unknown Completed [facility] Influenza Virus Vaccine Unknown Completed [facility] TDAP Unknown Completed [facility] Influenza Virus Vaccine Quad .5 mL IM 6+ MO (FLUZONE/FLULAVAL/F LUARIX) Unknown Completed [facility] SARS-COV-2 COVID-19 PFIZER VACCINE Unknown Completed [facility] Influenza Virus Vaccine Unknown Completed [facility] TDAP Unknown Completed [facility] Influenza Virus Vaccine Quad .5 mL IM 6+ MO (FLUZONE/FLULAVAL/F LUARIX) Unknown Completed [facility] SARS-COV-2 COVID-19 PFIZER VACCINE Unknown Completed [facility] Influenza Virus Vaccine Unknown Completed [facility] TDAP Unknown Completed [facility] Influenza Virus Vaccine Quad .5 mL IM 6+ MO (FLUZONE/FLULAVAL/F LUARIX) Unknown Completed [facility] SARS-COV-2 COVID-19 PFIZER VACCINE Unknown Completed [facility] Influenza Virus Vaccine Unknown Completed [facility] TDAP Unknown Completed [facility] Influenza Virus Vaccine Quad .5 mL IM 6+ MO (FLUZONE/FLULAVAL/F LUARIX) Unknown Completed [facility] SARS-COV-2 COVID-19 PFIZER VACCINE Unknown Completed [facility] Influenza Virus Vaccine Unknown Completed [facility] TDAP Unknown Completed [facility] Influenza Virus Vaccine Quad .5 mL IM 6+ MO (FLUZONE/FLULAVAL/F LUARIX) Unknown Completed [facility] SARS-COV-2 COVID-19 PFIZER VACCINE Unknown Completed [facility] Influenza Virus Vaccine Unknown Completed [facility] Vital Signs Vital Name Observation Time Observation Value Comments S ource Systolic blood pressure 2025-01-17 01:30:00 137 mm[Hg] [facility] Diastolic blood pressure 2025-01-17 01:30:00 94 mm[Hg] [facility] Heart rate 2025-01-17 01:30:00 84 /min [facility] Respiratory rate 2025-01-17 01:30:00 17 /min [facility] Oxygen saturation in Arterial blood by Pulse oximetry 2025-01-17 01:30:00 99 /min [facility] Body temperature 2025-01-16 22:21:00 36.61 Ilsa [facility] Body height 2025-01-16 22:11:00 165.1 cm [facility] Body weight 2025-01-16 22:11:00 90.719 kg [facility] BMI 2025-01-16 22:11:00 33.28 kg/m2 [facility] Systolic blood pressure 2024-10-07 13:10:00 131 mm[Hg] [facility] Diastolic blood pressure 2024-10-07 13:10:00 80 mm[Hg] [facility] Heart rate 2024-10-07 13:10:00 55 /min [facility] Body temperature 2024-10-07 13:10:00 36.22 Ilsa [facility] Oxygen saturation in Arterial blood by Pulse oximetry 2024-10-07 13:10:00 98 /min [facility] Body height 2024-10-02 14:29:00 165.1 cm [facility] Body weight 2024-10-02 14:29:00 95.709 kg [facility] BMI 2024-10-02 14:29:00 35.11 kg/m2 [facility] Systolic blood pressure 2024-08-07 18:09:00 158 mm[Hg] [facility] Diastolic blood pressure 2024-08-07 18:09:00 96 mm[Hg] [facility] Heart rate 2024-08-07 18:09:00 73 /min [facility] Body temperature 2024-08-07 18:09:00 36.44 Ilsa [facility] Respiratory rate 2024-08-07 18:09:00 18 /min [facility] Body height 2024-08-07 18:09:00 165.1 cm [facility] Body weight 2024-08-07 18:09:00 95.709 kg [facility] BMI 2024-08-07 18:09:00 35.11 kg/m2 [facility] Oxygen saturation in Arterial blood by Pulse oximetry 2024-08-07 18:09:00 95 /min [facility] Systolic blood pressure 2024-07-11 22:55:00 152 mm[Hg] [facility] Diastolic blood pressure 2024-07-11 22:55:00 85 mm[Hg] [facility] Heart rate 2024-07-11 22:55:00 77 /min [facility] Body temperature 2024-07-11 22:55:00 36.44 Ilsa [facility] Respiratory rate 2024-07-11 22:55:00 16 /min [facility] Body weight 2024-07-11 22:55:00 96.299 kg [facility] BMI 2024-07-11 22:55:00 35.33 kg/m2 [facility] Oxygen saturation in Arterial blood by Pulse oximetry 2024-07-11 22:55:00 97 /min [facility] Body temperature 2024-02-26 20:36:00 36.28 Ilsa [facility] Body height 2024-02-26 20:36:00 165.1 cm [facility] Body weight 2024-02-26 20:36:00 103.057 kg [facility] BMI 2024-02-26 20:36:00 37.81 kg/m2 [facility] Respiratory rate 2024-02-26 16:25:00 16 /min [facility] Body height 2024-02-26 16:25:00 165.1 cm [facility] Body weight 2024-02-26 16:25:00 99.791 kg [facility] BMI 2024-02-26 16:25:00 36.61 kg/m2 [facility] Body height 2024-02-23 16:25:00 165.1 cm [facility] Systolic blood pressure 2024-01-25 14:09:00 144 mm[Hg] [facility] Diastolic blood pressure 2024-01-25 14:09:00 100 mm[Hg] [facility] Heart rate 2024-01-25 14:09:00 79 /min [facility] Body temperature 2024-01-25 14:09:00 36.39 Ilsa [facility] Body height 2024-01-25 14:09:00 165.1 cm [facility] Body weight 2024-01-25 14:09:00 101.606 kg [facility] BMI 2024-01-25 14:09:00 37.28 kg/m2 [facility] Oxygen saturation in Arterial blood by Pulse oximetry 2024-01-25 14:09:00 99 /min [facility] Systolic blood pressure 2024-01-10 15:25:00 140 mm[Hg] [facility] Diastolic blood pressure 2024-01-10 15:25:00 96 mm[Hg] [facility] Heart rate 2024-01-10 15:25:00 78 /min [facility] Body temperature 2024-01-10 15:24:00 35.94 Ilsa [facility] Body height 2024-01-10 15:24:00 165.1 cm [facility] Body weight 2024-01-10 15:24:00 102.967 kg [facility] BMI 2024-01-10 15:24:00 37.77 kg/m2 [facility] Oxygen saturation in Arterial blood by Pulse oximetry 2024-01-10 15:24:00 99 /min [facility] Systolic blood pressure 2023-03-21 21:51:00 120 mm[Hg] [facility] Diastolic blood pressure 2023-03-21 21:51:00 85 mm[Hg] [facility] Heart rate 2023-03-21 21:51:00 61 /min [facility] Respiratory rate 2023-03-21 21:51:00 18 /min [facility] Body height 2023-03-21 21:51:00 165.1 cm [facility] Body weight 2023-03-21 21:51:00 85.775 kg [facility] BMI 2023-03-21 21:51:00 31.47 kg/m2 [facility] Oxygen saturation in Arterial blood by Pulse oximetry 2023-03-21 21:51:00 99 /min [facility] Systolic blood pressure 2023-01-04 14:52:00 145 mm[Hg] [facility] Diastolic blood pressure 2023-01-04 14:52:00 92 mm[Hg] [facility] Heart rate 2023-01-04 14:43:00 88 /min [facility] Body temperature 2023-01-04 14:43:00 36.61 Ilsa [facility] Respiratory rate 2023-01-04 14:43:00 18 /min [facility] Body height 2023-01-04 14:43:00 165.1 cm [facility] Body weight 2023-01-04 14:43:00 80.74 kg [facility] BMI 2023-01-04 14:43:00 29.62 kg/m2 [facility] Systolic blood pressure 2022-12-01 19:30:41 110 mm[Hg] [facility] Diastolic blood pressure 2022-12-01 19:30:41 90 mm[Hg] [facility] Heart rate 2022-12-01 19:30:41 61 /min [facility] Body temperature 2022-12-01 19:30:41 36.72 Ilsa [facility] Respiratory rate 2022-12-01 19:30:41 17 /min [facility] Oxygen saturation in Arterial blood by Pulse oximetry 2022-12-01 19:30:41 96 /min [facility] Body height 2022-12-01 16:56:00 165.1 cm [facility] Body weight 2022-12-01 16:56:00 79.379 kg [facility] BMI 2022-12-01 16:56:00 29.12 kg/m2 [facility] Systolic blood pressure 2022-10-21 15:53:00 121 mm[Hg] [facility] Diastolic blood pressure 2022-10-21 15:53:00 86 mm[Hg] [facility] Heart rate 2022-10-21 15:53:00 79 /min [facility] Body height 2022-10-21 15:53:00 165.1 cm [facility] Body weight 2022-10-21 15:53:00 82.01 kg [facility] BMI 2022-10-21 15:53:00 30.09 kg/m2 [facility] Oxygen saturation in Arterial blood by Pulse oximetry 2022-10-21 15:53:00 97 /min [facility] Systolic blood pressure 2022-10-13 20:29:00 135 mm[Hg] pt felt unbalanced/torin ey [facility] Diastolic blood pressure 2022-10-13 20:29:00 102 mm[Hg] pt felt unbalanced/torin ey [facility] Heart rate 2022-10-13 20:29:00 116 /min [facility] Oxygen saturation in Arterial blood by Pulse oximetry 2022-10-13 20:29:00 97 /min [facility] Body temperature 2022-10-13 19:57:00 37.17 Ilsa [facility] Respiratory rate 2022-10-13 19:57:00 18 /min [facility] Body height 2022-10-13 19:57:00 165.1 cm [facility] Body weight 2022-10-13 19:57:00 81.449 kg [facility] BMI 2022-10-13 19:57:00 29.88 kg/m2 [facility] Systolic blood pressure 2022-10-04 21:10:00 148 mm[Hg] [facility] Diastolic blood pressure 2022-10-04 21:10:00 98 mm[Hg] [facility] Heart rate 2022-10-04 21:06:00 99 /min [facility] Body temperature 2022-10-04 21:06:00 36.83 Ilsa [facility] Respiratory rate 2022-10-04 21:06:00 18 /min [facility] Body height 2022-10-04 21:06:00 165.1 cm [facility] Body weight 2022-10-04 21:06:00 82.555 kg [facility] BMI 2022-10-04 21:06:00 30.29 kg/m2 [facility] Oxygen saturation in Arterial blood by Pulse oximetry 2022-10-04 21:06:00 99 /min [facility] Systolic blood pressure 2022-09-28 21:00:00 129 mm[Hg] [facility] Diastolic blood pressure 2022-09-28 21:00:00 96 mm[Hg] [facility] Heart rate 2022-09-28 21:00:00 76 /min [facility] Respiratory rate 2022-09-28 21:00:00 13 /min [facility] Oxygen saturation in Arterial blood by Pulse oximetry 2022-09-28 21:00:00 97 /min [facility] Body temperature 2022-09-28 17:45:00 37.11 Ilsa [facility] Body weight 2022-09-28 17:45:00 94.802 kg [facility] BMI 2022-09-28 17:45:00 34.78 kg/m2 [facility] Systolic blood pressure 2022-06-03 20:07:00 138 mm[Hg] [facility] Diastolic blood pressure 2022-06-03 20:07:00 90 mm[Hg] [facility] Heart rate 2022-06-03 20:06:00 92 /min [facility] Respiratory rate 2022-06-03 20:06:00 18 /min [facility] [facility] Body height 2022-06-03 20:06:00 165.1 cm [facility] Body weight 2022-06-03 20:06:00 94.802 kg [facility] BMI 2022-06-03 20:06:00 34.78 kg/m2 [facility] Oxygen saturation in Arterial blood by Pulse oximetry 2022-06-03 20:06:00 97 /min [facility] Systolic blood pressure 2022-02-03 14:00:00 139 mm[Hg] [facility] Diastolic blood pressure 2022-02-03 14:00:00 91 mm[Hg] [facility] Heart rate 2022-02-03 14:00:00 73 /min [facility] Respiratory rate 2022-02-03 14:00:00 18 /min [facility] Oxygen saturation in Arterial blood by Pulse oximetry 2022-02-03 14:00:00 97 /min [facility] Body temperature 2022-02-03 13:18:00 36.61 Ilsa [facility] Body weight 2022-02-03 13:18:00 99.791 kg [facility] BMI 2022-02-03 13:18:00 38.97 kg/m2 [facility] Systolic blood pressure 2022-01-27 21:05:00 136 mm[Hg] [facility] Diastolic blood pressure 2022-01-27 21:05:00 81 mm[Hg] [facility] Heart rate 2022-01-27 21:05:00 81 /min [facility] Respiratory rate 2022-01-27 21:05:00 18 /min [facility] Body height 2022-01-27 21:05:00 160 cm [facility] Body weight 2022-01-27 21:05:00 103.874 kg [facility] BMI 2022-01-27 21:05:00 40.57 kg/m2 [facility] Oxygen saturation in Arterial blood by Pulse oximetry 2022-01-27 21:05:00 97 /min [facility] Systolic blood pressure 2024-10-14 18:12:00 138 mm[Hg] [facility] Diastolic blood pressure 2024-10-14 18:12:00 82 mm[Hg] [facility] Heart rate 2024-10-14 18:12:00 54 /min [facility] Respiratory rate 2024-10-14 18:09:00 18 /min [facility] Body height 2024-10-14 18:09:00 165.1 cm [facility] Body weight 2024-10-14 18:09:00 95.255 kg [facility] BMI 2024-10-14 18:09:00 34.95 kg/m2 [facility] Systolic blood pressure 2024-10-07 13:10:00 131 mm[Hg] [facility] Diastolic blood pressure 2024-10-07 13:10:00 80 mm[Hg] [facility] Heart rate 2024-10-07 13:10:00 55 /min [facility] Body temperature 2024-10-07 13:10:00 36.22 Ilsa [facility] Oxygen saturation in Arterial blood by Pulse oximetry 2024-10-07 13:10:00 98 /min [facility] Body height 2024-10-02 14:29:00 165.1 cm [facility] Body weight 2024-10-02 14:29:00 95.709 kg [facility] BMI 2024-10-02 14:29:00 35.11 kg/m2 [facility] Systolic blood pressure 2024-08-07 18:09:00 158 mm[Hg] [facility] Diastolic blood pressure 2024-08-07 18:09:00 96 mm[Hg] [facility] Heart rate 2024-08-07 18:09:00 73 /min [facility] Body temperature 2024-08-07 18:09:00 36.44 Ilsa [facility] Respiratory rate 2024-08-07 18:09:00 18 /min [facility] Body height 2024-08-07 18:09:00 165.1 cm [facility] Body weight 2024-08-07 18:09:00 95.709 kg [facility] BMI 2024-08-07 18:09:00 35.11 kg/m2 [facility] Oxygen saturation in Arterial blood by Pulse oximetry 2024-08-07 18:09:00 95 /min [facility] Systolic blood pressure 2024-08-05 20:29:00 130 mm[Hg] [facility] Diastolic blood pressure 2024-08-05 20:29:00 96 mm[Hg] [facility] Heart rate 2024-08-05 20:29:00 81 /min [facility] Respiratory rate 2024-08-05 20:08:00 18 /min [facility] Body height 2024-08-05 20:08:00 165.1 cm [facility] Body weight 2024-08-05 20:08:00 95.664 kg [facility] BMI 2024-08-05 20:08:00 35.10 kg/m2 [facility] Body temperature 2024-07-11 22:55:00 36.44 Ilsa [facility] Oxygen saturation in Arterial blood by Pulse oximetry 2024-07-11 22:55:00 97 /min [facility] Systolic blood pressure 2024-06-03 19:30:00 161 mm[Hg] [facility] Diastolic blood pressure 2024-06-03 19:30:00 98 mm[Hg] [facility] Heart rate 2024-06-03 19:30:00 61 /min [facility] Respiratory rate 2024-06-03 19:23:00 18 /min [facility] Body height 2024-06-03 19:23:00 165.1 cm [facility] Body weight 2024-06-03 19:23:00 97.932 kg [facility] BMI 2024-06-03 19:23:00 35.93 kg/m2 [facility] Systolic blood pressure 2024-03-04 20:32:00 153 mm[Hg] [facility] Diastolic blood pressure 2024-03-04 20:32:00 105 mm[Hg] [facility] Heart rate 2024-03-04 20:32:00 62 /min [facility] Respiratory rate 2024-03-04 20:29:00 18 /min [facility] Body height 2024-03-04 20:29:00 165.1 cm [facility] Body weight 2024-03-04 20:29:00 101.606 kg [facility] BMI 2024-03-04 20:29:00 37.28 kg/m2 [facility] Body temperature 2024-02-26 20:36:00 36.28 Ilsa [facility] Body height 2024-02-26 20:36:00 165.1 cm [facility] Body weight 2024-02-26 20:36:00 103.057 kg [facility] BMI 2024-02-26 20:36:00 37.81 kg/m2 [facility] Respiratory rate 2024-02-26 16:25:00 16 /min [facility] Systolic blood pressure 2024-01-25 14:09:00 144 mm[Hg] [facility] Diastolic blood pressure 2024-01-25 14:09:00 100 mm[Hg] [facility] Heart rate 2024-01-25 14:09:00 79 /min [facility] Oxygen saturation in Arterial blood by Pulse oximetry 2024-01-25 14:09:00 99 /min [facility] Procedures Procedure Date / Time Performed Performing Clinician Source LACTIC ACID WITH 2 HOUR REFLEX 2025-01-17 02:00:00 Kathe Zhao [facility] URINALYSIS 2025-01-17 00:21:00 Kathe Zhao [facility] EXTRA TUBE URINE CULTURE 2025-01-17 00:21:00 Kanika Zhao [facility] URINE DRUG (IMMUNOASSAY) - COMPREHENSIVE DRUG SCREEN W/O REFLEX 2025-01-17 00:21:00 Kathe Zhao [facility] FENTANYL (IMMUNOASSAY) 2025-01-17 00:21:00 Eusebio Zhao [facility] CT ANGIOGRAM CHEST 2025-01-16 23:17:40 Teri Whiting [facility] CT ANGIOGRAM ABDOMEN/PELVIS 2025-01-16 23:17:40 Fili Whiting [facility] ACUTE CARE VENOUS BLOOD GAS 2025-01-16 22:47:00 Kathe Zhao [facility] LACTIC ACID WITH 2 HOUR REFLEX 2025-01-16 22:47:00 Kathe Zhao [facility] CREATINE KINASE 2025-01-16 22:38:00 [facility] 2025-01-16 22:38:00 CamachoKathe calderón [facility] MAGNESIUM 2025-01-16 22:38:00 CamachoKathe calderón [facility] TROPONIN I 2025-01-16 22:38:00 Qasim ZhaoRomeo [facility] HEPATIC FUNCTION PANEL (50620) (ALB,T.PRO,BILI T,BU/BC,ALT,AST,ALK PHOS) 2025-01-16 22:38:00 [facility] BASIC METABOLIC PANEL (NA, K, CL, CO2, GLUCOSE, BUN, CREATININE, CA) 2025-01-16 22:38:00 CamachoQasim [facility] Hospital[facility] ETHANOL 2025-01-16 22:38:00 CamachoQasim [facility] Hospital[facility] CBC WITH DIFF 2025-01-16 22:38:00 Camacho [facility] N-TERMINAL PRO-BNP 2025-01-16 22:38:00 Camacho [facility] POCT GLUCOSE (AUTOMATED) 2025-01-16 22:29:00 Camacho [facility] DME/SUPPLY JUSTIFICATION 2024-10-10 21:28:23 Doc tor Unassigned, [place] [facility] GARDASIL 9 (HPV 9V) VACCINE 2024-10-07 13:02:33 Javan [facility] GARDASIL 9 (HPV 9V) VACCINE 2024-10-07 13:02:33 Javan [facility] GARDASIL 9 (HPV 9V) VACCINE 2024-08-07 18:45:40 Javan [facility] GARDASIL 9 (HPV 9V) VACCINE 2024-08-07 18:45:40 Javan [facility] PNEUMOCOCCAL 20 CONJUGATE (PREVNAR 20) VACCINE 2024-08-07 18:29:09 Jvaan [facility] PNEUMOCOCCAL 20 CONJUGATE (PREVNAR 20) VACCINE 2024-08-07 18:29:09 Javan [facility] CT SOFT TISSUE NECK W CONTRAST 2024-03-04 15:59:45 Marybeth Jiménez [facility] CT SOFT TISSUE NECK W CONTRAST 2024-03-04 15:59:45 Tino, Marybeth [facility] PELVIS COMPLETE WITH TRANSVAGINAL 2024-03-04 15:42:16 Miya Edouard [facility] US PELVIS COMPLETE WITH TRANSVAGINAL 2024-03-04 15:42:16 Miya Edouard [facility] COMP. METABOLIC PANEL ([id number]) 2024-02-23 16:58:00 Lui Post [facility] CBC WITH DIFF 2024-02-23 16:58:00 Lui Patel [facility] HEPATITIS B SURFACE ANTIBODY 2024-02-23 16:58:00 Lui Post [facility] HEPATITIS B SURFACE ANTIGEN 2024-02-23 16:58:00 [facility] HCV ANTIBODY 2024-02-23 16:58:00 [facility]ago [facility]arkar [facility] HBC ANTIBODY (IGM & IGG) 2024-02-23 16:58:00 Pin [facility] HIV 1/2 AG-AB WITH REFLEX 2024-02-23 16:58:00 Pi leonardo [facility] ANTIBODY 2024-02-23 16:58:00 Lui Post [facility] HIV 1/2 AG-AB WITH REFLEX 2024-02-23 16:58:00 Mago nagel [facility] QUANTIFERON-TB ASSAY 2024-02-23 16:58:00 [facility]ago costa [facility] HEPATITIS B SURFACE ANTIGEN 2024-02-23 16:58:00 Lui Post [facility] HEPATITIS B SURFACE ANTIBODY 2024-02-23 16:58:[address] [facility] HBC ANTIBODY (IGM & IGG) 2024-02-23 16:58:00 Pin ha Priest [facility] COMP. METABOLIC PANEL ([id number]) 2024-02-23 16:58:00 Lui Post [facility] CBC WITH DIFF 2024-02-23 16:58:00 Mago Trotter antonina Maninder [facility] MR LUMBAR SPINE WO CONTRAST 2024-02-18 23:14:02 Javan [facility] CT MAXILLOFACIAL/MANDIBLE WO CONTRAST 2024-02-12 22:18:00 Miya Edouard [facility] CT MAXILLOFACIAL/MANDIBLE WO CONTRAST 2024-02-12 22:18:00 Javan [facility] GLYCOSYLATED HEMOGLOBIN (A1C) 2024-02-01 14:58:00 Javan [facility] LIPID PANEL ([id number])(TOTAL CHOLESTEROL, TRIGLYCERIDES, HDL) 2024-02-01 14:58:00 Javan [facility] CBC WITH DIFF 2024-02-01 14:58:00 Miya Edouard [facility] FREE T4 2024-02-01 14:58:00 Miya Edouard [facility] FREE T3 2024-02-01 14:58:00 Miya Edouard [facility] THYROID STIMULATING HORMONE 2024-02-01 14:58:00 Javan [facility] COMP. METABOLIC PANEL ([id number]) 2024-02-01 14:58:00 Javan [facility] SEDIMENTATION RATE 2024-02-01 14:58:00 Vern Edouard [facility] C-REACTIVE PROTEIN 2024-02-01 14:58:00 Vern Edouard [facility] GC & CHLAMYDIA AMPLIFIED ASSAY 2024-01-25 15:23:00 Javan [facility] VITAMIN D, 25-OH 2024-01-25 15:16:00 Javan [facility] VITAMIN D, 25-OH 2024-01-25 15:16:00 Javan [facility] EBV-MONONUCLEOSIS SCREEN 2024-01-25 15:16:00 Javan [facility] HIV 1/2 AG-AB WITH REFLEX 2024-01-25 15:16:00 Dane fletcher [facility] SYPHILIS IGG/IGM 2024-01-25 15:16:00 Javan [facility] ALLERGENS, PEANUT PANEL 2024-01-25 15:16:00 Miya Edouard [facility] URINALYSIS 2024-01-10 16:44:[address] [facility] URINALYSIS 2024-01-10 16:44:00 Olamide Simpson [facility] C-REACTIVE PROTEIN 2024-01-10 16:13:00 Olamide Simpson [facility] COMP. METABOLIC PANEL ([id number]) 2024-01-10 16:13:00 Olamide Simpson [facility] CBC WITH DIFF 2024-01-10 16:13:00 Olamide Simpson [facility] ANTI-CENTROMERE B 2024-01-10 16:13:00 Olamide Simpson [facility] ANTI-SSA(RO) 2024-01-10 16:13:00 Olamide Simpson [facility] CBC WITH DIFF 2024-01-10 16:13:00 Olamide Simpson [facility] COMP. METABOLIC PANEL ([id number]) 2024-01-10 16:13:00 Olamide Simpson [facility] THYROID PEROXIDASE (TPO) AB 2024-01-10 16:13:00 Olamide Simpson [facility] ANTI-SSB(LA) 2024-01-10 16:13:00 Olamide Simpson [facility] ANTI-CENTROMERE B 2024-01-10 16:13:00 Olamide Simpson [facility] C-REACTIVE PROTEIN 2024-01-10 16:13:00 Olamide Simpson [facility] FREE T4 2023-04-05 17:14:00 Jak [facility] THYROID STIMULATING HORMONE 2023-04-05 17:14:00 Jak [facility] FREE T3 2023-04-05 17:14:00 Jak [facility] US HEAD NECK 2023-04-05 17:09:55 Benedict, [facility] ASSIGNMENT OF BENEFITS 2023-03-21 21:09:01 Docto r Unassigned, [place] [facility] EXTERNAL PROVIDER RECORDS 2023-01-05 05:01:00 Do ctor Unassigned, [place] [facility] C-REACTIVE PROTEIN 2023-01-04 15:47:00 Vern Edouard [facility] THYROID STIMULATING HORMONE 2023-01-04 15:47:00 Miya Edouard [facility] BASIC METABOLIC PANEL (NA, K, CL, CO2, GLUCOSE, BUN, CREATININE, CA) 2023-01-04 15:47:00 Miya Edouard [facility] SEDIMENTATION RATE 2023-01-04 15:47:00 Vern Edouard [facility] GLYCOSYLATED HEMOGLOBIN (A1C) 2023-01-04 15:47:00 Miya Edouard [facility] ANTI-NUCLEAR ANTIBODY SCREEN 2023-01-04 15:47:00 Miya Edouard [facility] URINE CULTURE 2023-01-04 15:47:00 Miya Edouard [facility] ANTI-DOUBLE STRANDED DNA 2023-01-04 15:47:00 Miya Edouard [facility] FREE T3 2023-01-04 15:47:00 Miya Edouard [facility] INSURANCE CORRESPONDENCE 2022-12-22 05:01:00 Doc tor Unassigned, [place] [facility] URINALYSIS 2022-12-01 18:38:00 Jey Perez [facility] XR CHEST 1 VW 2022-12-01 17:41:[address] LIPASE 2022-12-01 17:15:00 Jey Perez [facility] TROPONIN I 2022-12-01 17:15:00 Jey Perez [facility] COMP. METABOLIC PANEL ([id number]) 2022-12-01 17:15:00 eJy Perez [facility] CBC WITH DIFF 2022-12-01 17:15:00 Jey Perez [facility] COVID-19 (ID NOW RAPID TESTING) 2022-12-01 17:15:00 Jey Perez [facility] MEDICATION CORRESPONDENCE 2022-11-22 05:01:00 Do ctor Unassigned, [place] [facility] MR LUMBAR SPINE W WO CONTRAST 2022-10-12 21:23:00 Miya Edouard [facility] POCT TEST 2022-09-28 19:44:00 Tl Jolly [facility] CT STROKE ANGIOGRAM HEAD 2022-09-28 19:30:00 Juliane Bae [facility] CT STROKE ANGIOGRAM NECK 2022-09-28 19:30:00 Juliane Bae [facility] CT STROKE HEAD WO CONTRAST 2022-09-28 19:14:05 Juliane Jolly [facility] TROPONIN I 2022-09-28 18:53:00 Juliane Jolly [facility] COMP. METABOLIC PANEL ([id number]) 2022-09-28 18:53:00 Juliane Jolly [facility] CBC WITH DIFF 2022-09-28 18:53:00 Juliane Jolly U [facility] PROTHROMBIN TIME / INR 2022-09-28 18:53:00 Juliane Jolly [facility] ACTIVATED PARTIAL THRMPLAS MARK 2022-09-28 18:53:00 Juliane Jolly [facility] URINALYSIS 2022-09-28 18:53:00 Juliane Jolly [facility] N-TERMINAL PRO-BNP 2022-09-28 18:53:00 Hue Jolly [facility] LACTIC ACID WHOLE BLOOD 2022-09-28 18:53:00 Juliane Tamayo [facility] MR CERVICAL SPINE WO CONTRAST 2022-08-25 21:43:32 Requisition, Paper [facility] CONSENT/REFUSAL FOR DIAGNOSIS AND TREATMENT 2022-08-25 21:06:28 Doctor Unassigned, [place] [facility] ASSIGNMENT OF BENEFITS 2022-08-25 21:06:18 Docto r Unassigned, [place] [facility] MR LUMBAR SPINE WO CONTRAST 2022-06-07 22:54:45 Requisition, Paper [facility] XR LUMBAR SPINE 4 VW 2022-06-07 21:58:44 Requisition, Paper [facility] COMP. METABOLIC PANEL ([id number]) 2022-02-03 13:37:00 Carolina Maurice [facility] CBC WITH DIFF 2022-02-03 13:37:00 Carolina Maurice U [facility] CONSENT/REFUSAL FOR DIAGNOSIS AND TREATMENT 2022-02-03 13:08:09 Doctor Unassigned, [place] [facility] COLONOSCOPY (ENDO) 2021-04-02 14:57:35 Vern Edouard [facility] BI SCREENING TOMOSYNTHESIS BILATERAL 2021-02-10 16:00:00 Miya Edouard [facility] HIGH RISK HPV-THIN PREP 2021-02-09 20:57:00 AdViolet gaxiola [facility] LAB ONLY PAP SMEAR-LIQUID BASED 2021-02-09 20:57:00 AdNika gaxiola [facility] Encounters Start Date/Time End Date/Time Encounter Type Admission Type Attending Clinicians Care Facility Care Department Encounter ID Source 2021-03-04 15:44:30 Outpatient R ABBEY ROTHMAN [facility] DEB [id number] [facility] 2021-02-12 17:53:46 Emergency [facility] [id number] [facility] 2025-01-17 00:00:00 2025-01-17 08:59:52 Refill Miya Edouard [facility] PROFESSIO [facility] 1.2.840.114 350.1.13.10 4.2.7.2.686 [id number] [facility] 2025-01-16 17:13:00 2025-01-16 22:11:00 Emergency X KATHE ZHAO, KATHE FROST [facility] ERT [id number] [facility] 2024-12-18 09:45:00 2024-12-18 09:45:00 Outpatient NIKI GARCIA [facility] [id number] [facility] 2024-12-09 00:00:00 2024-12-09 10:10:30 Refill Perla Upton [facility] 1.2.840.114 350.1.13.10 4.2.7.2.686 [id number] [facility] 2024-11-06 00:00:00 2024-12-07 18:23:02 Patient Secure Msg Doctor Unassigned, [place] Doctor Unassigned, [place] [facility] 1.2840.114 350.1.13.10 4.2.7.2.686 [id number] [facility] 2024-12-06 00:00:00 2024-12-06 10:03:53 Refill Miya Edouard [facility] 1.2.840.114 350.1.13.10 4.2.7.2.686 [id number] [facility] 2024-11-12 00:00:00 2024-11-14 08:58:49 Telephone Miya Edouard [facility] 1.2.840.114 350.1.13.10 4.2.7.2.686 [id number] [facility] 2024-11-13 00:00:00 2024-11-13 08:12:55 Telephone Miya Edouard [facility] 1.2.840.114 350.1.13.10 4.2.7.2.686 [id number] [facility] 2024-11-12 00:00:00 2024-11-12 21:59:26 RefMiya Delgado 1.2.840.1 [id number] 3.104.2.7 .3.632883 .8 [id number] [facility] 2024-11-12 00:00:00 2024-11-12 21:59:01 Refill Miya Edouard 1.2.840.1 82831.1.1 3.104.2.7 .3.638794 .8 [id number] [facility] 2024-11-12 00:00:00 2024-11-12 13:16:29 Refill Alyce Garza 1.2.840.1 [id number] 3.104.2.7 .3.700896 .8 [id number] [facility] 2024-11-09 00:00:00 2024-11-12 08:16:29 Refill Noni Garcia 1.2.840.1 [id number] 3.104.2.7 .3.776148 .8 [id number] [facility] 2024-10-07 00:00:00 2024-11-09 18:22:17 Patient Secure Msg Doctor Unassigned, [place] 1.2.840.1 24252.1.1 3.104.2.7 .3.143431 .8 [id number] [facility] 2024-11-06 00:00:00 2024-11-06 16:55:03 Specialty Pharmacy Federico Richter 1.2.840.1 [id number] 3.104.2.7 .3.042366 .8 [id number] [facility] 2024-11-06 14:00:00 2024-11-06 14:00:00 Outpatient R MIYA EDOUARD [facility] [id number] [facility] 2024-11-05 00:00:00 2024-11-05 08:59:02 Telephone Miya Edouard 1.2.840.1 74943.1.1 3.104.2.7 .3.244830 .8 [id number] [facility] 2024-09-27 00:00:00 2024-11-02 18:33:27 Patient Secure Msg Doctor Unassigned, [place] 1.2.840.1 89985.1.1 3.104.2.7 .3.054009 .8 [id number] [facility] 2024-10-30 00:00:00 2024-10-31 09:33:05 Telephone Miya Edouard 1.2.840.1 [id number] 3.104.2.7 .3.701864 .8 [id number] [facility] 2024-10-29 00:00:00 2024-10-29 11:18:11 Specialty Pharmacy Federico Richter 1.2.840.1 [id number] 3.104.2.7 .3.912603 .8 [id number] [facility] 2024-10-28 00:00:00 2024-10-28 13:24:17 Specialty Pharmacy Anna Rodriges 1.2.840.1 [id number] 3.104.2.7 .3.733612 .8 [id number] [facility] 2024-09-23 00:00:00 2024-10-26 18:40:33 Patient Secure Msg Miya Edouard 1.2.840.1 [id number] 3.104.2.7 .3.980980 .8 [id number] [facility] 2024-10-22 00:00:00 2024-10-26 16:11:39 Telephone Miya Edouard 1.2.840.1 87380.1.1 3.104.2.7 .3.341633 .8 [id number] [facility] 2024-10-14 13:45:2024-10-14 14:28:09 Outpatient CHERELLE HALE [facility] [id number] [facility] 2024-10-14 00:00:00 2024-10-14 00:00:00 Travel 1.2.840.1 [id number] 3.104.2.7 .3.466634 .8 1.2.840.114 350.1.13.10 4.2.7.3.698 [id number] [facility] 2024-10-08 00:00:00 2024-10-08 10:29:29 Specialty Pharmacy Laura Jerry 1.2.840.1 18368.1.1 3.104.2.7 .3.381452 .8 [id number] [facility] 2024-10-08 00:00:00 2024-10-08 00:00:00 Travel 1.2.840.1 [id number] 3.104.2.7 .3.025325 .8 1.2.840.114 350.1.13.10 4.2.7.3.698 [id number] [facility] 2024-10-07 09:00:00 2024-10-07 09:00:00 Outpatient R [facility] [id number] [facility] 2024-10-07 09:00:00 2024-10-07 09:00:00 Nurse Visit Miya Santana, [facility] 1.2.840.1 27983.1.1 3.104.2.7 .3.006669 .8 [id number] [facility] 2024-10-07 00:00:00 2024-10-07 00:00:00 Travel 1.2.840.1 47850.1.1 3.104.2.7 .3.178595 .8 1.2.840.114 350.1.13.10 4.2.7.3.698 084.8 [id number] [facility] 2024-10-02 10:00:00 2024-10-02 11:27:52 Ancillary Visit Malik Pryor Shante chavez 1.2.840.1 65286.1.1 3.104.2.7 .3.623139 .8 [id number] [facility] 2024-10-02 10:00:00 2024-10-02 10:00:00 Outpatient R MALIK WHITE CRAIG [facility] [id number] [facility] 2024-10-02 00:00:00 2024-10-02 00:00:00 Travel 1.2.840.1 96258.1.1 3.104.2.7 .3.237470 .8 1.2.840.114 350.1.13.10 4.2.7.3.698 084.8 [id number] [facility] 2024-09-27 00:00:00 2024-09-27 11:08:56 Telephone Sabrina Roa 1.2.840.1 62677.1.1 3.104.2.7 .3.427547 .8 [id number] [facility] 2024-09-24 00:00:00 2024-09-24 15:06:31 Letter (Out) 1.2.840.1 75249.1.1 3.104.2.7 .3.314092 .8 [id number] [facility] 2024-09-23 00:00:00 2024-09-23 13:28:52 Patient Secure Msg Miya Edouard 1.2.840.1 60137.1.1 3.104.2.7 .3.544459 .8 [id number] [facility] 2024-09-17 00:00:00 2024-09-18 09:28:49 Telephone Miya Edouard 1.2.840.1 18586.1.1 3.104.2.7 .3.110145 .8 [id number] [facility] 2024-09-17 00:00:00 2024-09-17 15:08:21 Refill Alyce Garza 1.2.840.1 84444.1.1 3.104.2.7 .3.530480 .8 [id number] [facility] 2024-09-14 00:00:00 2024-09-17 14:32:21 Refill JavanMiya 1.2.840.1 08996.1.1 3.104.2.7 .3.490409 .8 [id number] [facility] 2024-09-17 00:00:00 2024-09-17 11:14:38 Specialty Pharmacy Shaneka Armas 1.2.840.1 36725.1.1 3.104.2.7 .3.963657 .8 [id number] [facility] 2024-09-17 00:00:00 2024-09-17 10:22:12 Specialty Pharmacy Federico Richter 1.2.840.1 14546.1.1 3.104.2.7 .3.412090 .8 [id number] [facility] 2024-08-07 00:00:00 2024-09-07 18:14:24 Patient Secure Msg Doctor Unassigned, [place] 1.2840.1 25379.1.1 3.104.2.7 .3.428296 .8 [id number] [facility] 2024-09-06 13:45:00 2024-09-06 14:23:51 Ancillary Visit R Malik White Aljude Leandre N 1.2.840.1 00009.1.1 3.104.2.7 .3.010789 .8 [id number] [facility] 2024-09-06 00:00:00 2024-09-06 00:00:00 Travel 1.2.840.1 94020.1.1 3.104.2.7 .3.750708 .8 1.2.840.114 350.1.13.10 4.2.7.3.698 084.8 [id number] [facility] 2024-08-19 13:45:00 2024-08-19 13:45:00 Outpatient R MALIK [facility] [id number] [facility] 2024-08-19 13:45:00 2024-08-19 13:45:00 Outpatient R MALIK WHITE CRAIG [facility] [id number] [facility] 2024-08-18 00:00:00 2024-08-18 00:00:00 Refill Miya Edouard 1.2.840.1 83738.1.1 3.104.2.7 .3.102235 .8 [id number] [facility] 2024-08-14 08:45:00 2024-08-14 08:45:00 Outpatient NIKI GARCIA [facility] [id number] [facility] 2024-08-12 00:00:00 2024-08-12 11:38:55 Specialty Pharmacy Federico Richter 1.2.840.1 18244.1.1 3.104.2.7 .3.907218 .8 [id number] [facility] 2024-08-07 00:00:00 2024-08-07 16:23:13 Telephone Miya Edouard 1.2.840.1 26785.1.1 3.104.2.7 .3.568090 .8 [id number] [facility] 2024-08-07 13:00:00 2024-08-07 13:58:11 Outpatient MIYA SANTANA [facility] [id number] [facility] 2024-08-07 13:00:00 2024-08-07 13:58:11 Office Visit NabilajillbennieMiya gonzales 1.2.840.1 20037.1.1 3.104.2.7 .3.342979 .8 [id number] [facility] 2024-08-07 00:00:00 2024-08-07 00:00:00 Travel 1.2.840.1 08697.1.1 3.104.2.7 .3.980277 .8 1.2.840.114 350.1.13.10 4.2.7.3.698 084.8 [id number] [facility] 2024-08-05 16:00:00 2024-08-05 16:48:29 Outpatient R CHERELLE GARBER [facility] [id number] [facility] 2024-08-05 00:00:00 2024-08-05 00:00:00 Travel 1.2.840.1 46419.1.1 3.104.2.7 .3.202431 .8 1.2.840.114 350.1.13.10 4.2.7.3.698 084.8 [id number] [facility] 2024-07-02 00:00:00 2024-08-03 18:18:10 Patient Secure Msg Doctor Unassigned, [place] 1.2.840.1 03527.1.1 3.104.2.7 .3.740777 .8 [id number] [facility] 2024-07-23 13:40:00 2024-07-23 13:40:00 Outpatient MIYA SANTANA [facility] [id number] [facility] 2024-07-15 00:00:00 2024-07-16 10:48:14 Noni Ying 1.2.840.1 92929.1.1 3.104.2.7 .3.144682 .8 [id number] [facility] 2024-07-11 18:00:00 2024-07-11 18:26:39 Urgent Care Unknown, Attending Kwaku Dev 1.2.840.1 41671.1.1 3.104.2.7 .3.417739 .8 [id number] [facility] 2024-07-11 18:00:00 2024-07-11 18:00:00 Outpatient R DEV PELAEZ [facility] [id number] [facility] 2024-07-11 00:00:00 2024-07-11 00:00:00 Travel 1.2.840.1 69220.1.1 3.104.2.7 .3.997595 .8 1.2.840.114 350.1.13.10 4.2.7.3.698 084.8 [id number] [facility] 2024-07-05 00:00:00 2024-07-05 09:38:59 Specialty Pharmacy Kena Agosto 1.2.840.1 71331.1.1 3.104.2.7 .3.439208 .8 [id number] [facility] 2024-06-21 00:00:00 2024-06-24 09:32:57 Telephone Miya Edouard 1.2.840.1 07560.1.1 3.104.2.7 .3.585687 .8 [id number] [facility] 2024-05-15 00:00:00 2024-06-15 18:14:24 Patient Secure Msg Doctor Unassigned, [place] 1.2.840.1 21451.1.1 3.104.2.7 .3.828362 .8 [id number] [facility] 2024-06-10 00:00:00 2024-06-10 11:47:40 Specialty Pharmacy Akiko Villagomez 1.2.840.1 64690.1.1 3.104.2.7 .3.062865 .8 [id number] [facility] 2024-06-03 13:45:00 2024-06-03 14:11:48 Outpatient R CHERELLE GARBER [facility] [id number] [facility] 2024-06-03 00:00:00 2024-06-03 00:00:00 Travel 1.2.840.1 49349.1.1 3.104.2.7 .3.387843 .8 1.2.840.114 350.1.13.10 4.2.7.3.698 084.8 [id number] [facility] 2024-05-28 13:00:00 2024-05-28 13:00:00 Outpatient MIYA SANTANA [facility] [id number] [facility] 2024-05-22 00:00:00 2024-05-22 00:00:00 RefMiya Delgado 1.2.840.1 61970.1.1 3.104.2.7 .3.510919 .8 [id number] [facility] 2024-05-19 00:00:00 2024-05-20 14:08:08 Refill Miya Edouard 1.2.840.1 45783.1.1 3.104.2.7 .3.578574 .8 [id number] [facility] 2024-05-09 00:00:00 2024-05-09 09:05:05 Miya Ruiz 1.2.840.1 68632.1.1 3.104.2.7 .3.969811 .8 [id number] [facility] 2024-05-08 14:00:00 2024-05-08 14:00:00 Outpatient R SARAH BETH YOUNG [facility] [id number] [facility] 2024-05-05 00:00:00 2024-05-05 10:50:39 Refill Alyce Garza 1.2.840.1 69501.1.1 3.104.2.7 .3.594962 .8 [id number] [facility] 2024-04-26 11:40:00 2024-04-26 11:40:00 Outpatient R MIYA EDOUARD [facility] [id number] [facility] 2024-04-24 10:00:00 2024-04-24 10:00:00 Outpatient SARAH BETH AREVALO [facility] [id number] [facility] 2024-04-22 00:00:00 2024-04-22 15:51:54 Telephone Marybeth Jiménez 1.2.840.1 71074.1.1 3.104.2.7 .3.333742 .8 [id number] [facility] 2024-03-01 00:00:00 2024-04-06 18:19:56 Patient Secure Miya Edouard 1.2.840.1 40923.1.1 3.104.2.7 .3.174701 .8 [id number] [facility] 2024-03-01 00:00:00 2024-04-06 18:19:36 Patient Secure Miya Edouard 1.2.840.1 71471.1.1 3.104.2.7 .3.333424 .8 [id number] [facility] 2024-04-03 09:40:00 2024-04-03 09:40:00 Outpatient SARAH BETH AREVALO [facility] [id number] [facility] 2024-04-01 14:30:00 2024-04-01 14:30:00 Outpatient CHERELLE HALE [facility] [id number] [facility] 2024-03-29 00:00:00 2024-03-29 00:00:00 Travel 1.2.840.1 85741.1.1 3.104.2.7 .3.502524 .8 1.2.840.114 350.1.13.10 4.2.7.3.698 084.8 [id number] [facility] 2024-03-20 09:20:00 2024-03-20 09:20:00 Outpatient R SARAH BETH YOUNG [facility] [id number] [facility] 2024-03-12 09:30:00 2024-03-12 09:30:00 Outpatient R MALIK WHITE CRAIG [facility] [id number] [facility] 2024-03-12 08:15:00 2024-03-12 08:15:00 Outpatient R CANO-DAKSHA S, MARTHA CANO-DAKSHA S, MARTHA [facility] [id number] [facility] 2024-03-06 10:20:00 2024-03-06 10:20:00 Outpatient R SARAH BETH YOUNG [facility] [id number] [facility] 2024-03-04 00:00:00 2024-03-05 11:30:52 Telephone Marybeth Jiménez 1.2.840.1 39459.1.1 3.104.2.7 .3.334382 .8 [id number] [facility] 2024-03-04 08:40:36 2024-03-04 23:59:00 Outpatient R MARYBETH JIMÉNEZ LUPITA [facility] [id number] [facility] 2024-03-04 08:40:36 2024-03-04 23:59:00 Hospital Encounter Marybeth Jiménez 1.2.840.1 63530.1.1 3.104.2.7 .3.838269 .8 [id number] [facility] 2024-03-04 00:00:00 2024-03-04 11:39:44 Specialty Pharmacy Carina Taylor 1.2.840.1 37876.1.1 3.104.2.7 .3.027174 .8 [id number] [facility] 2024-03-04 08:39:37 2024-03-04 08:39:37 Hospital Encounter Miya Edouard 1.2.840.1 08267.1.1 3.104.2.7 .3.189188 .8 [id number] [facility] 2024-03-04 00:00:00 2024-03-04 00:00:00 Travel 1.2.840.1 84857.1.1 3.104.2.7 .3.674888 .8 1.2.840.114 350.1.13.10 4.2.7.3.698 084.8 [id number] [facility] 2024-03-02 15:55:42 2024-03-02 23:59:00 Outpatient R STANLEYMIYA GONZALES [facility] [id number] [facility] 2024-01-30 00:00:00 2024-03-02 18:20:06 Patient Secure Msg Miya Edouard 1.2.840.1 85371.1.1 3.104.2.7 .3.690561 .8 [id number] [facility] 2024-03-01 00:00:00 2024-03-01 12:57:59 Specialty Pharmacy Jeni Serna 1.2.840.1 84879.1.1 3.104.2.7 .3.059406 .8 [id number] [facility] 2024-02-29 00:00:00 2024-02-29 11:19:17 Telephone Jeni Serna 1.2.840.1 33685.1.1 3.104.2.7 .3.241869 .8 [id number] [facility] 2024-02-27 00:00:00 2024-02-27 16:56:29 Telephone Martha Wright 1.2.840.1 38375.1.1 3.104.2.7 .3.540857 .8 [id number] [facility] 2024-02-26 15:00:00 2024-02-26 15:54:20 Office Visit Marybeth Jiménez 1.2.840.1 93150.1.1 3.104.2.7 .3.101313 .8 [id number] [facility] 2024-02-26 10:00:00 2024-02-26 11:09:16 Outpatient R LOKI HAYES [facility] [id number] [facility] 2024-02-26 10:00:00 2024-02-26 11:09:16 Office Visit Loki Hayes 1.2.840.1 42000.1.1 3.104.2.7 .3.214742 .8 [id number] [facility] 2024-02-26 00:00:00 2024-02-26 00:00:00 Travel 1.2.840.1 22413.1.1 3.104.2.7 .3.514700 .8 1.2.840.114 350.1.13.10 4.2.7.3.698 084.8 [id number] [facility] 2024-02-23 11:00:00 2024-02-23 11:15:00 Hip Hop Dancer Visit Clare Hernández Janice May Only [facility] 1.2.840.1 98895.1.1 3.104.2.7 .3.439381 .8 [id number] [facility] 2024-02-23 10:15:00 2024-02-23 10:46:31 Outpatient R JENNIE LOVING [facility] [id number] [facility] 2024-02-23 10:15:00 2024-02-23 10:46:31 Office Visit Clare Hernández Janice May Pinto Cuberos, Juan Miguel 1.2.840.1 83912.1.1 3.104.2.7 .3.391706 .8 [id number] [facility] 2024-02-23 00:00:00 2024-02-23 00:00:00 Travel 1.2.840.1 88168.1.1 3.104.2.7 .3.901991 .8 1.2.840.114 350.1.13.10 4.2.7.3.698 084.8 [id number] [facility] 2024-02-22 00:00:00 2024-02-22 10:23:28 Patient Secure Msg NabilaashleyMiya gonzales 1.2.840.1 10195.1.1 3.104.2.7 .3.462879 .8 [id number] [facility] 2024-02-20 00:00:00 2024-02-22 08:15:19 Patient Secure Miya Edouard 1.2.840.1 57019.1.1 3.104.2.7 .3.427988 .8 [id number] [facility] 2024-02-21 00:00:00 2024-02-21 15:04:37 Refdallas Miya Edouard 1.2.840.1 04510.1.1 3.104.2.7 .3.788808 .8 [id number] [facility] 2024-02-21 00:00:00 2024-02-21 15:00:03 Patient Secure Miya Edouard 1.2.840.1 56566.1.1 3.104.2.7 .3.880346 .8 [id number] [facility] 2024-02-21 00:00:00 2024-02-21 00:00:00 GageMiya Delgado 1.2.840.1 34389.1.1 3.104.2.7 .3.491901 .8 [id number] [facility] 2024-02-13 00:00:00 2024-02-19 10:14:37 Patient Secure g NabilajillMiya hoang 1.2.840.1 05935.1.1 3.104.2.7 .3.544969 .8 [id number] [facility] 2024-02-18 15:34:29 2024-02-18 23:59:00 Hospital Encounter Miya Edouard 1.2.840.1 25766.1.1 3.104.2.7 .3.628781 .8 [id number] [facility] 2024-02-18 16:00:00 2024-02-18 16:00:00 Outpatient R NABILAJILLBENNIEMIYA GONZALES [facility] [id number] [facility] 2024-02-14 00:00:00 2024-02-14 16:47:35 Telephone Sue Childs 1.2.840.1 11109.1.1 3.104.2.7 .3.440009 .8 [id number] [facility] 2024-02-12 16:33:32 2024-02-12 23:59:00 Outpatient R MIYA EDOUARD [facility] [id number] [facility] 2024-02-12 16:20:00 2024-02-12 23:59:00 Hospital Encounter Miya Edouard 1.2.840.1 44189.1.1 3.104.2.7 .3.508424 .8 [id number] [facility] 2024-02-09 00:00:00 2024-02-12 09:13:26 Telephone Miya Edouard 1.2.840.1 21767.1.1 3.104.2.7 .3.672049 .8 [id number] [facility] 2024-02-01 00:00:00 2024-02-06 09:43:57 Telephone Olamide Simpson 1.2.840.1 38056.1.1 3.104.2.7 .3.381852 .8 [id number] [facility] 2024-02-06 00:00:00 2024-02-06 00:00:00 Outpatient R MIYA EDOUARD [facility] [id number] [facility] 2024-01-31 00:00:00 2024-02-05 08:14:36 Patient Secure Msg Doctor Unassigned, [place] 1.2.840.1 63429.1.1 3.104.2.7 .3.668480 .8 [id number] [facility] 2024-01-30 00:00:00 2024-02-05 08:14:10 Patient Secure Msg Miya Edouard 1.2.840.1 82379.1.1 3.104.2.7 .3.580041 .8 [id number] [facility] 2024-02-05 00:00:00 2024-02-05 00:00:00 Outpatient R MIYA EDOUARD [facility] [id number] [facility] 2024-02-01 10:00:00 2024-02-01 10:26:05 Hip Hop Dancer Visit Miya Edouard 2, [facility] 1.2.840.1 28567.1.1 3.104.2.7 .3.446359 .8 [id number] [facility] 2024-02-01 10:00:00 2024-02-01 10:00:00 Outpatient MIYA SANTANA [facility] [id number] [facility] 2024-01-30 00:00:00 2024-01-31 09:41:11 Telephone Olamide Simpson 1.2.840.1 10409.1.1 3.104.2.7 .3.373392 .8 [id number] [facility] 2024-01-31 00:00:00 2024-01-31 00:00:00 Outpatient R MIYA EDOUARD [facility] [id number] [facility] 2024-01-30 00:00:00 2024-01-30 16:37:26 Refill Miya Edouard 1.2.840.1 29710.1.1 3.104.2.7 .3.229225 .8 [id number] [facility] 2024-01-30 00:00:00 2024-01-30 16:37:21 Refill Miya Edouard 1.2.840.1 17034.1.1 3.104.2.7 .3.319707 .8 [id number] [facility] 2024-01-30 00:00:00 2024-01-30 16:24:38 Telephone Miya Edouard 1.2.840.1 50231.1.1 3.104.2.7 .3.154187 .8 [id number] [facility] 2024-01-30 00:00:00 2024-01-30 11:33:55 Patient Secure Msg Miya Edouard 1.2.840.1 04456.1.1 3.104.2.7 .3.229389 .8 [id number] [facility] 2024-01-30 00:00:00 2024-01-30 11:06:55 Letter (Out) 1.2.840.1 66282.1.1 3.104.2.7 .3.652067 .8 [id number] [facility] 2024-01-26 00:00:00 2024-01-29 12:20:33 Telephone Miya Edouard 1.2.840.1 25877.1.1 3.104.2.7 .3.824775 .8 [id number] [facility] 2024-01-29 00:00:00 2024-01-29 00:00:00 Outpatient R MIYA EDOUARD [facility] [id number] [facility] 2024-01-25 10:30:00 2024-01-25 10:56:52 Hip Hop Dancer Visit Miya Edouard 2, [facility] 1.2.840.1 74980.1.1 3.104.2.7 .3.697118 .8 [id number] [facility] 2024-01-25 09:00:00 2024-01-25 10:00:58 Outpatient R MIYA EDOUARD [facility] [id number] [facility] 2024-01-25 09:00:00 2024-01-25 10:00:58 Office Visit Miya Edouard 1.2.840.1 04064.1.1 3.104.2.7 .3.678079 .8 [id number] [facility] 2024-01-25 00:00:00 2024-01-25 00:00:00 Travel 1.2.840.1 45340.1.1 3.104.2.7 .3.665989 .8 1.2.840.114 350.1.13.10 4.2.7.3.698 084.8 [id number] [facility] 2024-01-11 00:00:00 2024-01-11 20:57:23 Refill Miya Edouard 1.2.840.1 02220.1.1 3.104.2.7 .3.022968 .8 [id number] [facility] 2024-01-10 11:15:00 2024-01-10 11:30:00 Hip Hop Dancer Visit Olamide Simpson [facility] 1.2.840.1 31681.1.1 3.104.2.7 .3.463012 .8 [id number] [facility] 2024-01-10 10:15:00 2024-01-10 10:59:59 Outpatient R OLAMIDE SIMPSON LAURA [facility] [id number] [facility] 2024-01-10 10:15:00 2024-01-10 10:59:59 Office Visit Olamide Simpson 1.2.840.1 08662.1.1 3.104.2.7 .3.545246 .8 [id number] [facility] 2024-01-10 00:00:00 2024-01-10 00:00:00 Travel 1.2.840.1 28539.1.1 3.104.2.7 .3.976765 .8 1.2.840.114 350.1.13.10 4.2.7.3.698 084.8 [id number] [facility] 2024-01-05 08:40:00 2024-01-05 08:40:00 Outpatient MIYA SANTANA [facility] [id number] [facility] 2024-01-03 09:40:00 2024-01-03 09:40:00 Outpatient MIYA SANTANA [facility] [id number] [facility] 2023-12-29 00:00:00 2023-12-29 11:29:00 Miya Fisher 1.2.840.1 31398.1.1 3.104.2.7 .3.188405 .8 [id number] [facility] 2023-12-22 00:00:00 2023-12-22 10:59:17 Miya Fisher 1.2.840.1 03112.1.1 3.104.2.7 .3.364015 .8 [id number] [facility] 2023-12-03 00:00:00 2023-12-04 19:32:03 Miya Fisher 1.2.840.1 03416.1.1 3.104.2.7 .3.706327 .8 [id number] [facility] 2023-11-24 00:00:00 2023-11-24 11:05:58 [facility] 1.2.840.114 350.1.13.10 4.2.7.2.686 [id number] 044 [id number] [facility] 2023-11-09 00:00:00 2023-11-09 12:39:20 [facility] 1.2.840.114 350.1.13.10 4.2.7.2.686 [id number] 044 [id number] [facility] 2023-10-31 15:40:00 2023-10-31 15:40:00 Outpatient R MIYA EDOUARD [facility] [id number] [facility] 2023-10-14 00:00:00 2023-10-16 13:37:25 Refill Miya Edouard [facility] 1.2.840.114 350.1.13.10 4.2.7.2.686 [id number] 059 [id number] [facility] 2023-10-12 13:00:00 2023-10-12 13:00:00 Outpatient RAFFI HARRISON [facility] [id number] [facility] 2023-09-12 00:00:00 2023-09-25 13:31:56 Refill Eva Abreu [facility] 1.2.840.114 350.1.13.10 4.2.7.2.686 [id number] 059 [id number] [facility] 2023-09-18 00:00:00 2023-09-19 12:27:52 Refill Miya Edouard [facility] 1.2.840.114 350.1.13.10 4.2.7.2.686 [id number] 044 [id number] [facility] 2023-09-06 00:00:00 2023-09-06 14:18:38 Refill Miya Edouard [facility] 1.2.840.114 350.1.13.10 4.2.7.2.686 [id number] [id number] [facility] 2023-08-22 15:30:00 2023-08-22 15:30:00 Outpatient R GELA BENEDICT [facility] [id number] [facility] 2023-08-22 15:30:00 2023-08-22 15:30:00 Outpatient R YOLI HI [facility] [id number] [facility] 2023-07-31 00:00:00 2023-07-31 00:00:00 Octavia Campa [facility] 1.840.114 350.1.13.10 4.2.7.2.686 [id number] [id number] [facility] 2023-07-31 00:00:00 2023-07-31 00:00:00 Miya Fisher [facility] 1.840.114 350.1.13.10 4.2.7.2.686 [id number] [id number] [facility] 2023-07-12 15:00:00 2023-07-12 15:00:00 Outpatient R MIYA EDOUARD [facility] [id number] [facility] 2023-06-29 00:00:00 2023-06-29 00:00:00 [facility] 1.84.114 350.1.13.10 4.2.7.2.686 [id number] [id number] [facility] 2023-06-17 00:00:00 2023-06-17 00:00:00 Miya Fisher [facility] 1..840.114 350.1.13.10 4.2.7.2.686 [id number] [id number] [facility] 2023-05-29 00:00:00 2023-05-29 00:00:00 Refill Octavia Reid [facility] 1.114 350.1.13.10 4.2.7.2.686 [id number] 044 [id number] [facility] 2023-05-29 00:00:00 2023-05-29 00:00:00 Patient Secure Msg Doctor Unassigned, [place] [facility] 1.114 350.1.13.10 4.2.7.2.686 [id number] [facility] 2023-04-30 00:00:00 2023-04-30 00:00:00 RefMiya Delgado [facility] 1..114 350.1.13.10 4.2.7.2.686 [id number] 044 [id number] [facility] 2023-04-20 00:00:00 2023-04-20 00:00:00 Patient Secure Msg Jak [facility] 1.84.114 350.1.13.10 4.2.7.2.686 [id number] [facility] 2023-04-19 09:40:00 2023-04-19 09:40:00 Outpatient R MIYA EDOUARD [facility] [id number] [facility] 2023-04-05 10:32:54 2023-04-05 23:59:00 Outpatient R J[facility] [id number] [facility] 2023-04-05 10:32:54 2023-04-05 23:59:00 Hospital Encounter Jak [facility] 1..114 350.1.13.10 4.2.7.2.686 [id number] [facility] 2023-04-05 11:30:00 2023-04-05 11:45:00 Hip Hop Dancer Visit Pob, Adc Lab Main Gela Benedict [facility] 1.20.114 350.1.13.10 4.2.7.2.686 [id number] [facility] 2023-04-03 00:00:00 2023-04-03 00:00:00 Refill Miya Edouard [facility] 1.2840.114 350.1.13.10 4.2.7.2.686 [id number] 044 [id number] [facility] 2023-03-30 00:00:00 2023-03-30 00:00:00 Refill Javan [facility] 1.20.114 350.1.13.10 4.2.7.2.686 [id number] [id number] [facility] 2023-03-21 15:30:00 2023-03-21 16:45:47 Outpatient R JAK [facility] [id number] [facility] 2023-03-21 15:30:00 2023-03-21 16:45:47 Office Visit BenedictGela [facility] 1.20.114 350.1.13.10 4.2.7.2.686 [id number] [facility] 2023-03-21 00:00:00 2023-03-21 00:00:00 Orders Only Doctor Unassigned, [place] [facility] 1.20.114 350.1.13.10 4.2.7.2.686 [id number] [facility] 2023-01-24 00:00:00 2023-01-24 00:00:00 Patient Secure Msg Doctor Unassigned, [place] [facility] 1.20.114 350.1.13.10 4.2.7.2.686 [id number] 044 [id number] [facility] 2023-01-13 00:00:00 2023-01-13 00:00:00 Refill Miya Edouard [facility] 1.2.840.114 350.1.13.10 4.2.7.2.686 [id number] [id number] [facility] 2023-01-11 00:00:00 2023-01-11 00:00:00 Patient Secure Msg Doctor Unassigned, [place] [facility] 1.2.840.114 350.1.13.10 4.2.7.2.686 [id number] [facility] 2023-01-11 00:00:00 2023-01-11 00:00:00 Patient Secure Msg Doctor Unassigned, [place] [facility] 1.2840.114 350.1.13.10 4.2.7.2.686 [id number] [facility] 2023-01-05 00:00:00 2023-01-05 00:00:00 Orders Only Doctor Unassigned, [place] [facility] 1.2.840.114 350.1.13.10 4.2.7.2.686 [id number] [facility] 2023-01-04 11:30:00 2023-01-04 11:30:00 Hip Hop Dancer Visit 2, Adc Lab Miya Edouard [facility] 1.2.840.114 350.1.13.10 4.2.7.2.686 [id number] [facility] 2023-01-04 09:40:00 2023-01-04 10:36:37 Outpatient R MIYA EDOUARD [facility] [id number] [facility] 2023-01-04 09:40:00 2023-01-04 10:36:37 Office Visit Miya Edouard [facility] 1.2.840.114 350.1.13.10 4.2.7.2.686 [id number] 044 [id number] [facility] 2023-01-03 14:20:00 2023-01-03 14:20:00 [facility] [id number] 2022-12-29 00:00:00 2022-12-29 00:00:00 Refill Miya Edouard [facility] 1.2.840.114 350.1.13.10 4.2.7.2.686 [id number] 044 [id number] [facility] 2022-12-29 00:00:00 2022-12-29 00:00:00 Telephone Javan [facility] 1.2.840.114 350.1.13.10 4.2.7.2.686 [id number] [id number] [facility] 2022-12-23 06:40:00 2022-12-23 11:30:00 Outpatient SHEREE BLOOD [facility] DEB [id number] [facility] 2022-12-22 00:00:00 2022-12-22 00:00:00 Orders Only Doctor Unassigned, [place] [facility] 1.2.840.114 350.1.13.10 4.2.7.2.686 [id number] [id number] [facility] 2022-12-20 00:00:00 2022-12-20 00:00:00 Refill Miya Edouard [facility] 1.2.840.114 350.1.13.10 4.2.7.2.686 [id number] 044 [id number] [facility] 2022-12-06 14:00:00 2022-12-06 14:00:00 [facility] [id number] 2022-12-01 12:00:00 2022-12-01 14:36:00 Emergency X JEY PEREZ [facility] ERT [id number] [facility] 2022-12-01 12:00:00 2022-12-01 14:36:00 Emergency Jey Perez S [facility] 1.2840.114 350.1.13.10 4.2.7.2.686 [id number] 084 [id number] [facility] 2022-11-28 00:00:00 2022-11-28 00:00:00 Telephone Miya Edouard [facility] 1.20.114 350.1.13.10 4.2.7.2.686 [id number] 044 [id number] [facility] 2022-11-22 00:00:00 2022-11-22 00:00:00 Orders Only Doctor Unassigned, [place] [facility] 1.2840.114 350.1.13.10 4.2.7.2.686 [id number] [facility] 2022-11-20 00:00:00 2022-11-20 00:00:00 Refill Miya Edouard [facility] 1.2840.114 350.1.13.10 4.2.7.2.686 [id number] 044 [id number] [facility] 2022-11-17 00:00:00 2022-11-17 00:00:00 Telephone Miya Edouard [facility] 1.2840.114 350.1.13.10 4.2.7.2.686 [id number] 044 [id number] [facility] 2022-11-11 00:00:00 2022-11-11 00:00:00 Refill Miya Edouard [facility] 1.2840.114 350.1.13.10 4.2.7.2.686 [id number] 044 [id number] [facility] 2022-11-09 10:40:00 2022-11-09 10:40:00 Outpatient R ROLAND ABREUBHUPINDERNADIA [facility] [id number] [facility] 2022-11-08 00:00:00 2022-11-08 00:00:00 Patient Secure NabilajillMiya hoang [facility] PROFESS[facility] NAL BUILDING 1..840.114 350.1.13.10 4.2.7.2.686 [id number] 044 [id number] [facility] 2022-10-21 11:00:00 2022-10-21 15:17:15 Outpatient R SARMAD PITT HOWARD [facility] [id number] [facility] 2022-10-21 11:00:00 2022-10-21 15:17:15 Office Visit Sarmad Pitt [facility] 1..840.114 350.1.13.10 4.2.7.2.686 [id number] 092 [id number] [facility] 2022-10-21 00:00:00 2022-10-21 00:00:00 Neo Miya Edouard [facility] 1..840.114 350.1.13.10 4.2.7.2.686 [id number] 044 [id number] [facility] 2022-10-13 14:40:00 2022-10-13 15:44:42 Outpatient R BRADY ROLANDNADIA [facility] [id number] [facility] 2022-10-13 14:40:00 2022-10-13 15:44:42 [facility] 1..840.114 350.1.13.10 4.2.7.2.686 [id number] 059 [id number] [facility] 2022-10-12 15:08:01 2022-10-12 23:59:00 Outpatient R MIYA EDOUARD [facility] [id number] [facility] 2022-10-12 15:08:01 2022-10-12 23:59:00 Hospital Encounter Miya Edouard [facility] 1.20.114 350.1.13.10 4.2.7.2.686 [id number] [facility] 2022-10-06 00:00:00 2022-10-06 00:00:00 Refill Miya Edouard [facility] 1.20.114 350.1.13.10 4.2.7.2.686 [id number] 044 [id number] [facility] 2022-10-05 00:00:00 2022-10-05 00:00:00 Letter (Out) Neurology [facility] 1.20.114 350.1.13.10 4.2.7.2.686 [id number] [id number] [facility] 2022-10-04 16:00:00 2022-10-04 16:40:00 Office Visit Miya Edouard [facility] 1.20.114 350.1.13.10 4.2.7.2.686 [id number] 044 [id number] [facility] 2022-10-04 16:00:00 2022-10-04 16:00:00 Outpatient R NABILAJILLMIYA HOANG [facility] [id number] [facility] 2022-09-30 00:00:00 2022-09-30 00:00:00 Patient Secure Msg Doctor Unassigned, [place] [facility] 1.20.114 350.1.13.10 4.2.7.2.686 [id number] 019 [id number] [facility] 2022-09-29 00:00:00 2022-09-29 00:00:00 Patient Secure Msg Doctor Unassigned, [place] [facility] 1.2.840.114 350.1.13.10 4.2.7.2.686 [id number] 019 [id number] [facility] 2022-09-28 12:47:00 2022-09-28 16:58:00 Emergency X [facility] [id number] [facility] 2022-09-28 12:47:00 2022-09-28 16:58:00 Emergency [facility] 1.2.840.114 350.1.13.10 4.2.7.2.686 [id number] 084 [id number] [facility] 2022-09-27 00:00:00 2022-09-27 00:00:00 Refill Javan [facility] BUILDING 1.2.840.114 350.1.13.10 4.2.7.2.686 [id number] 044 [id number] [facility] 2022-09-25 00:00:00 2022-09-25 00:00:00 Refill Nabilabecca [facility] BUILDING 1.2.840.114 350.1.13.10 4.2.7.2.686 [id number] 044 [id number] [facility] 2022-09-18 00:00:00 2022-09-18 00:00:[address] [facility] 1.2.840.114 350.1.13.10 4.2.7.2.686 [id number] 044 [id number] [facility] 2022-09-16 00:00:00 2022-09-16 00:00:[address] [facility] 1.2.840.114 350.1.13.10 4.2.7.2.686 [id number] 044 [id number] [facility] 2022-08-25 16:09:30 2022-08-25 23:59:00 Outpatient R RADIOLOGY [facility] [id number] [facility] 2022-08-25 16:09:30 2022-08-25 23:59:00 Hospital Encounter Radiology [facility] 1.2.840.114 350.1.13.10 4.2.7.2.686 [id number] [facility] 2022-08-25 16:00:00 2022-08-25 16:08:00 Hospital Encounter Radiology [facility] 1.2.840.114 350.1.13.10 4.2.7.2.686 [id number] 807 [id number] [facility] 2022-08-25 15:45:00 2022-08-25 15:59:00 Hospital Encounter Radiology [facility] 1.2.840.114 350.1.13.10 4.2.7.2.686 [id number] 807 [id number] [facility] 2022-08-25 00:00:00 2022-08-25 00:00:00 Orders Only Doctor Unassigned, [place] [facility] 1.2.840.114 350.1.13.10 4.2.7.2.686 [id number] [id number] [facility] 2022-08-24 00:00:00 2022-08-24 00:00:00 Miya Fisher [facility] 1.2.840.114 350.1.13.10 4.2.7.2.686 [id number] 044 [id number] [facility] 2022-08-17 00:00:00 2022-08-17 00:00:00 Miya Fisher [facility]ESS[facility] NAL BUILDING 1.2.840.114 350.1.13.10 4.2.7.2.686 [id number] 044 [id number] [facility] 2022-07-21 00:00:00 2022-07-21 00:00:00 Gagedallas Miya Edouard [facility] PROFESSIO NAL BUILDING 1.2.840.114 350.1.13.10 4.2.7.2.686 [id number] 044 [id number] [facility] 2022-07-07 00:00:00 2022-07-07 00:00:00 Octavia Campa [facility] 1.2.840.114 350.1.13.10 4.2.7.2.686 [id number] 044 [id number] [facility] 2022-06-24 00:00:00 2022-06-24 00:00:00 Neo AdkinsjillMiya ho[facility] 1.2.840.114 350.1.13.10 4.2.7.2.686 [id number] 044 [id number] [facility] 2022-06-23 00:00:00 2022-06-23 00:00:00 Miya Fisher [facility] 1.2.840.114 350.1.13.10 4.2.7.2.686 [id number] 044 [id number] [facility] 2022-06-21 16:20:00 2022-06-21 16:20:00 Outpatient MIYA SANTANA [facility] [id number] [facility] 2022-06-14 16:00:00 2022-06-14 16:00:00 Outpatient ABBEY BALDWIN [facility] [id number] [facility] 2022-06-12 00:00:00 2022-06-12 00:00:00 Octavia Campa [facility] 1.2840.114 350.1.13.10 4.2.7.2.686 [id number] 044 [id number] [facility] 2022-06-09 00:00:00 2022-06-09 00:00:00 Miya Fisher [facility] PROFESSIO NAL BUILDING 1.2840.114 350.1.13.10 4.2.7.2.686 [id number] 044 [id number] [facility] 2022-06-07 15:44:21 2022-06-07 23:59:00 Hospital Encounter Radiology [facility] 1.20.114 350.1.13.10 4.2.7.2.686 [id number] [facility] 2022-06-07 15:43:47 2022-06-07 15:43:47 Outpatient R RADIOLOGY [facility] [id number] [facility] 2022-06-07 15:43:47 2022-06-07 15:43:47 Hospital Encounter Radiology [facility] 1.2840.114 350.1.13.10 4.2.7.2.686 [id number] [facility] 2022-06-03 14:00:00 2022-06-03 14:29:10 Outpatient R MIYA EDOUARD [facility] [id number] [facility] 2022-06-03 14:00:00 2022-06-03 14:29:10 Office Visit Miya Edouard [facility] PROFESS[facility] NAL BUILDING 1.2.840.114 350.1.13.10 4.2.7.2.686 [id number] 044 [id number] [facility] 2022-05-28 00:00:00 2022-05-28 00:00:00 Miya Fisher [facility] PROF[facility] NAL BUILDING 1.2.840.114 350.1.13.10 4.2.7.2.686 [id number] 044 [id number] [facility] 2022-05-24 16:00:00 2022-05-24 16:00:00 Outpatient R STEPHAN ABBEY [facility] [id number] [facility] 2022-05-12 15:40:00 2022-05-12 15:40:00 Outpatient R MIYA EDOUARD [facility] [id number] [facility] 2022-05-12 00:00:00 2022-05-12 00:00:00 Telephone Miya Edouard [facility] 1.2.840.114 350.1.13.10 4.2.7.2.686 [id number] 044 [id number] [facility] 2022-05-12 00:00:00 2022-05-12 00:00:00 Telephone Octavia Reid [facility] 1.840.114 350.1.13.10 4.2.7.2.686 [id number] 044 [id number] [facility] 2022-05-12 00:00:00 2022-05-12 00:00:00 Patient Secure Msg Miya Edouard [facility] 1.2.840.114 350.1.13.10 4.2.7.2.686 [id number] 044 [id number] [facility] 2022-04-21 15:45:00 2022-04-21 15:45:00 Outpatient R ABBEY ROTHMAN [facility] [id number] [facility] 2022-04-13 00:00:00 2022-04-13 00:00:00 Refill Miya Edouard [facility] 1.2.840.114 350.1.13.10 4.2.7.2.686 [id number] 044 [id number] [facility] 2022-03-30 00:00:00 2022-03-30 00:00:00 Refill Javan Miya [facility] PROFESSIO [facility] 1..840.114 350.1.13.10 4.2.7.2.686 [id number] 044 [id number] [facility] 2022-02-18 00:00:00 2022-02-18 00:00:00 Outpatient R MIYA EDOUARD [facility] [id number] [facility] 2022-02-17 00:00:00 2022-02-17 00:00:00 Telephone Miya Edouard [facility] 1.840.114 350.1.13.10 4.2.7.2.686 [id number] [facility] 2022-02-10 12:54:03 2022-02-10 23:59:00 Outpatient R NABILAASHLEYMIYA GONZALES [facility] [id number] [facility] 2022-02-10 12:54:03 2022-02-10 23:59:00 Hospital Encounter Javan Miya [facility] 1.840.114 350.1.13.10 4.2.7.2.686 [id number] [facility] 2022-02-04 00:00:00 2022-02-04 00:00:00 Patient Secure Msg Doctor Unassigned, [place] [facility] 1.840.114 350.1.13.10 4.2.7.2.686 [id number] [facility] 2022-02-03 08:19:00 2022-02-03 09:38:00 Emergency X CAROLINA MAURICE [facility] ERT [id number] [facility] 2022-02-03 08:19:00 2022-02-03 09:38:00 Emergency Carolina Maurice [facility] 1.2.840.114 350.1.13.10 4.2.7.2.686 [id number] 084 [id number] [facility] 2022-02-02 00:00:00 2022-02-02 00:00:00 [facility] 1.2.840.114 350.1.13.10 4.2.7.2.686 [id number] 044 [id number] [facility] 2022-01-27 16:00:00 2022-01-27 17:05:13 Outpatient R MIYA EDOUARD [facility] [id number] [facility] 2022-01-27 16:00:00 2022-01-27 17:05:13 Office Visit Miya Edouard [facility] 1.2.840.114 350.1.13.10 4.2.7.2.686 [id number] 044 [id number] [facility] 2022-01-26 07:45:00 2022-01-26 08:00:00 Hip Hop Dancer Visit Pob, Adc Lab Main Miya Edouard [facility] 1.2.840.114 350.1.13.10 4.2.7.2.686 [id number] [facility] 2022-01-26 07:45:00 2022-01-26 07:45:00 Outpatient R JAVAN MIYA [facility] [id number] [facility] 2022-01-12 00:00:00 2022-01-12 00:00:00 Telephone Colemannatalya Miya [facility] 1.2.840.114 350.1.13.10 4.2.7.2.686 [id number] 044 [id number] [facility] 2022-01-03 00:00:00 2022-01-03 00:00:00 Telephone ColemanMiya hoang [facility] NAL BUILDING 1.2.840.114 350.1.13.10 4.2.7.2.686 [id number] 044 [id number] [facility] 2021-12-30 00:00:00 2021-12-30 00:00:00 Telephone Miya Edouard [facility] 1.2.840.114 350.1.13.10 4.2.7.2.686 [id number] 044 [id number] [facility] 2021-12-29 00:00:00 2021-12-29 00:00:00 Telephone Miya Edouard [facility] BUILD[facility] 1.2.840.114 350.1.13.10 4.2.7.2.686 [id number] 044 [id number] [facility] 2021-12-24 00:00:00 2021-12-24 00:00:00 Refill Miya Edouard [facility]ILD[facility] 1.2.840.114 350.1.13.10 4.2.7.2.686 [id number] 044 [id number] [facility] 2021-12-24 00:00:00 2021-12-24 00:00:00 Telephone Miya Edouard [facility] 1.2.840.114 350.1.13.10 4.2.7.2.686 [id number] 044 [id number] [facility] 2021-12-23 16:00:00 2021-12-23 16:43:06 Outpatient R NABILAJILLBENNIEBHUPINDER MIYA [facility] [id number] [facility] 2021-12-23 16:00:00 2021-12-23 16:43:06 Office Visit Miya Edouard [facility] 1.2.840.114 350.1.13.10 4.2.7.2.686 [id number] 044 [id number] [facility] 2021-12-23 16:00:00 2021-12-23 16:00:00 Outpatient R MIYA EDOUARD [facility] [id number] [facility] 2021-12-23 00:00:00 2021-12-23 00:00:00 Telephone Colemannatalya Miya [facility] 1.2.840.114 350.1.13.10 4.2.7.2.686 [id number] 044 [id number] [facility] 2021-12-19 00:00:00 2021-12-19 00:00:00 Refill Miya Edouard [facility] 1.2.840.114 350.1.13.10 4.2.7.2.686 [id number] 044 [id number] [facility] 2021-12-17 00:00:00 2021-12-17 00:00:00 Patient Secure Msg Doctor Unassigned, [place] [facility] 1.2.840.114 350.1.13.10 4.2.7.2.686 [id number] 044 [id number] [facility] 2021-12-09 00:00:00 2021-12-09 00:00:00 Telephone Miya Edouard [facility] 1.2.840.114 350.1.13.10 4.2.7.2.686 [id number] 044 [id number] [facility] 2021-12-08 15:40:00 2021-12-08 16:27:17 Outpatient R MIYA EDOUARD [facility] [id number] [facility] 2021-12-08 15:40:00 2021-12-08 16:27:17 Telemedici ne Visit Miya Edouard [facility] 1.2.840.114 350.1.13.10 4.2.7.2.686 [id number] 044 [id number] [facility] 2021-12-06 00:00:00 2021-12-06 00:00:00 Patient Secure iMya Garrison [facility] 1.2.840.114 350.1.13.10 4.2.7.2.686 [id number] 044 [id number] [facility] 2021-12-03 07:45:00 2021-12-03 08:00:00 Hip Hop Dancer Visit Pob, Adc Lab Main Miya Edouard [facility] 1.2840.114 350.1.13.10 4.2.7.2.686 [id number] [facility] 2021-12-03 07:45:00 2021-12-03 07:45:00 Outpatient R MIYA EDOUARD [facility] [id number] [facility] 2021-12-03 00:00:00 2021-12-03 00:00:00 Orders Only Doctor Unassigned, [place] [facility] 1.840.114 350.1.13.10 4.2.7.2.686 [id number] [facility] 2021-11-26 00:00:00 2021-11-26 00:00:00 Refill Nathaly Richter [facility] 1.2840.114 350.1.13.10 4.2.7.2.686 [id number] 044 [id number] [facility] 2021-11-19 00:00:00 2021-11-19 00:00:00 RefMiya Delgado [facility] 1.2840.114 350.1.13.10 4.2.7.2.686 [id number] 044 [id number] [facility] 2021-10-28 14:00:00 2021-10-28 14:15:00 Hip Hop Dancer Visit Only, Ang Db Test Louis [facility] GABRIELA[facility] 1.2.840.114 350.1.13.10 4.2.7.2.686 [id number] [facility] 2021-10-28 14:00:00 2021-10-28 14:00:00 Outpatient [facility] [id number] [facility] 2021-10-24 09:30:00 2021-10-24 09:45:00 Hip Hop Dancer Visit Only, Ang Db Test Louis [facility] GABRIELA?[facility] 1.2.840.114 350.1.13.10 4.2.7.2.686 [id number] [facility] 2021-10-24 09:30:00 2021-10-24 09:28:17 Outpatient R RONNYRickCHARY [facility] [id number] [facility] 2021-10-22 00:00:00 2021-10-22 00:00:00 Patient Secure Msg Miya Edouard [facility] 1.2.840.114 350.1.13.10 4.2.7.2.686 [id number] 044 [id number] [facility] 2021-10-05 00:00:00 2021-10-05 00:00:00 Telephone Miya Edouard [facility] 1.2.840.114 350.1.13.10 4.2.7.2.686 [id number] 044 [id number] [facility] 2021-10-01 16:30:00 2021-10-01 17:17:32 Outpatient R NATHALY RICHTER [facility] [id number] [facility] 2021-10-01 16:30:00 2021-10-01 17:17:32 Office Visit Nathaly Richter [facility] 1.2.840.114 350.1.13.10 4.2.7.2.686 [id number] 044 [id number] [facility] 2021-10-01 00:00:00 2021-10-01 00:00:00 Refill Miya Edouard [facility]ILD[facility] 1.2.840.114 350.1.13.10 4.2.7.2.686 [id number] 044 [id number] [facility] 2021-09-28 00:00:00 2021-09-28 00:00:00 Refill ColemannatalyaMiya [facility] 1.2.840.114 350.1.13.10 4.2.7.2.686 [id number] 044 [id number] [facility] 2021-09-25 00:00:00 2021-09-25 00:00:00 Refill NabilajillnatalyaMiya [facility] 1.2.840.114 350.1.13.10 4.2.7.2.686 [id number] 044 [id number] [facility] 2021-09-24 00:00:00 2021-09-24 00:00:00 Refill ColemannatalyaMiya [facility] 1.2.840.114 350.1.13.10 4.2.7.2.686 [id number] 044 [id number] [facility] 2021-08-10 15:40:00 2021-08-10 15:40:00 Outpatient R MIYA EDOUARD [facility] [id number] [facility] 2021-07-24 00:00:00 2021-07-24 00:00:00 Refill ColemanntaalyaMiya [facility] 1.2.840.114 350.1.13.10 4.2.7.2.686 [id number] 044 [id number] [facility] 2021-07-23 00:00:00 2021-07-23 00:00:00 Refill Miya Edouard [facility] [place] [facility] BUILDING 1.2.840.114 350.1.13.10 4.2.7.2.686 [id number] 044 [id number] [facility] 2021-06-18 00:00:00 2021-06-18 00:00:00 Telephone Miya Edouard [facility] 1.2.840.114 350.1.13.10 4.2.7.2.686 [id number] [facility] 2021-06-14 00:00:00 2021-06-14 00:00:00 Telephone Miya Edouard [facility] 1.2.840.114 350.1.13.10 4.2.7.2.686 [id number] 044 [id number] [facility] 2021-06-10 00:00:00 2021-06-10 00:00:00 Telephone Miya Edouard [facility] 1.2.840.114 350.1.13.10 4.2.7.2.686 [id number] 044 [id number] [facility] 2021-06-08 00:00:00 2021-06-08 00:00:00 Telephone Miya Edouard [facility] 1.2.840.114 350.1.13.10 4.2.7.2.686 [id number] [facility] 2021-05-31 00:00:00 2021-05-31 00:00:00 Telephone Miya Edouard [facility] 1.2.840.114 350.1.13.10 4.2.7.2.686 [id number] [id number] [facility] 2021-05-27 00:00:00 2021-05-27 00:00:00 Refill Miya Edouard [facility] 1.2.840.114 350.1.13.10 4.2.7.2.686 [id number] 044 [id number] [facility] 2021-05-27 00:00:00 2021-05-27 00:00:00 Telephone Miya Edouard [facility] 1.2.840.114 350.1.13.10 4.2.7.2.686 [id number] [facility] 2021-05-20 15:30:00 2021-05-20 15:32:49 Outpatient R NIKA BERRY [facility] [id number] [facility] 2021-05-20 15:30:00 2021-05-20 15:32:49 Office Visit Nika Berry [facility] 1.2.840.114 350.1.13.10 4.2.7.2.686 [id number] [facility] 2021-05-18 00:00:00 2021-05-18 00:00:00 [facility] 1.2.840.114 350.1.13.10 4.2.7.2.686 [id number] [id number] [facility] 2021-05-13 00:00:00 2021-05-13 00:00:00 Telephone Miya Edouard [facility] 1.2.840.114 350.1.13.10 4.2.7.2.686 [id number] [id number] [facility] 2021-05-11 00:00:00 2021-05-11 00:00:00 Telephone Miya Edouard [facility] 1.2.840.114 350.1.13.10 4.2.7.2.686 [id number] 044 [id number] [facility] 2021-05-10 00:00:00 2021-05-10 00:00:00 [facility]phone [facility] 1.2.840.114 350.1.13.10 4.2.7.2.686 [id number] [id number] [facility] 2021-05-10 00:00:00 2021-05-10 00:00:00 Telephone Miya Edouard [facility] 1.2.840.114 350.1.13.10 4.2.7.2.686 [id number] 044 [id number] [facility] 2021-05-06 09:05:00 2021-05-06 14:37:00 Outpatient R NIKA BERRY [facility] DRYING SUPERVISOR [id number] [facility] 2021-05-06 09:05:00 2021-05-06 14:37:00 Hospital Encounter AdNika gaxiola [facility] 1.2.840.114 350.1.13.10 4.2.7.2.686 [id number] [facility] 2021-05-06 09:05:00 2021-05-06 14:37:00 Outpatient R NIKA BERRY [facility] DRYING SUPERVISOR [id number] [facility] 2021-05-06 12:31:00 2021-05-06 14:31:00 Surgery AdNika gaxiola [facility] 1.2.840.114 350.1.13.10 4.2.7.2.686 [id number] [facility] 2021-05-06 00:00:00 2021-05-06 00:00:00 Telephone Miya Edouard [facility] 1.2.840.114 350.1.13.10 4.2.7.2.686 [id number] [id number] [facility] 2021-05-05 16:00:00 2021-05-05 16:31:52 Outpatient R MIYA EDOUARD [facility] [id number] [facility] 2021-05-05 16:00:00 2021-05-05 16:31:52 Office Visit Miya Edouard [facility] 1.20.114 350.1.13.10 4.2.7.2.686 [id number] [id number] [facility] 2021-05-04 12:15:00 2021-05-04 12:30:00 Hip Hop Dancer Visit Pob, [facility]114 350.1.13.10 4.2.7.2.686 [id number] [facility] 2021-05-04 12:15:00 2021-05-04 12:15:00 Outpatient R [facility] [id number] [facility] 2021-05-04 12:00:00 2021-05-04 12:15:00 [facility] Only Only[facility] 1..114 350.1.13.10 4.2.7.2.686 [id number] [facility] 2021-05-04 12:00:00 2021-05-04 12:00:[address] [facility] [id number] [facility] 2021-05-04 00:00:00 2021-05-04 00:00:00 Orders Only Doctor Unassigned, [place] [facility] 1.20.114 350.1.13.10 4.2.7.2.686 [id number] [facility] 2021-04-22 14:30:00 2021-04-22 15:09:50 Outpatient R NIKA BERRY [facility] [id number] [facility] 2021-04-22 14:30:00 2021-04-22 15:09:50 Office Visit Nika Berry [facility] 1.2.840.114 350.1.13.10 4.2.7.2.686 [id number] [facility] 2021-04-22 15:00:00 2021-04-22 15:00:00 Outpatient R NIKA BERRY [facility] [id number] [facility] 2021-04-22 00:00:00 2021-04-22 00:00:00 Refill Miya Edouard [facility] 1.2.840.114 350.1.13.10 4.2.7.2.686 [id number] [facility] 2021-04-20 16:15:00 2021-04-20 16:50:21 Outpatient R ABBEY ROTHMAN [facility] [id number] [facility] 2021-04-20 16:15:00 2021-04-20 16:50:21 Office Visit Abbey Rothman [facility] 1.2.840.114 350.1.13.10 4.2.7.2.686 [id number] [facility] 2021-04-19 00:00:00 2021-04-19 00:00:00 Refill Miya Edouard [facility] 1.2.840.114 350.1.13.10 4.2.7.2.686 [id number] [facility] 2021-04-12 00:00:00 2021-04-12 00:00:00 Telephone Miya Edouard [facility] 1.114 350.1.13.10 4.2.7.2.686 [id number] 044 [id number] [facility] 2021-04-02 08:03:00 2021-04-02 10:35:00 Outpatient R ABBEY ROTHMAN [facility] DEB [id number] [facility] 2021-04-02 08:03:00 2021-04-02 10:35:00 Hospital Encounter Abbey Rothman [facility] [place] 1..114 350.1.13.10 4.2.7.2.686 [id number] [facility] 2021-04-02 09:32:00 2021-04-02 10:30:00 Surgery Abbey Rothman [facility] [place] 1..114 350.1.13.10 4.2.7.2.686 [id number] [facility] 2021-04-02 00:00:00 2021-04-02 00:00:00 Orders Only Doctor Unassigned, [place] [facility] 1.114 350.1.13.10 4.2.7.2.686 [id number] [facility] 2021-03-19 15:30:00 2021-03-19 15:30:00 Outpatient R NIKA BERRY [facility] [id number] [facility] 2021-03-18 00:00:00 2021-03-18 00:00:00 Patient Secure Msg Doctor Unassigned, [place] [facility] 1.114 350.1.13.10 4.2.7.2.686 [id number] [facility] 2021-03-16 00:00:00 2021-03-16 00:00:00 [facility] 1.2.840.114 350.1.13.10 4.2.7.2.686 [id number] [facility] 2021-03-11 00:00:00 2021-03-11 00:00:00 [facility] 1.2840.114 350.1.13.10 4.2.7.2.686 [id number] [facility] 2021-03-10 13:48:49 2021-03-10 23:59:00 [facility].20.114 350.1.13.10 4.2.7.2.686 [id number] [facility] 2021-03-10 13:46:21 2021-03-10 13:47:00 [facility] [id number] [facility] 2021-03-10 13:46:21 2021-03-10 13:47:00 [facility] 1.20.114 350.1.13.10 4.2.7.2.686 [id number] [facility] 2021-03-04 12:51:00 2021-03-04 16:33:00 Outpatient R NIKA BERRY [facility] DRYING SUPERVISOR [id number] [facility] 2021-03-04 12:51:00 2021-03-04 16:33:00 Hospital Encounter Nika Berry [facility] [place] 1.2.114 350.1.13.10 4.2.7.2.686 [id number] [facility] 2021-03-04 13:25:00 2021-03-04 15:26:00 Surgery AdNika gaxiola [facility] [place] 1.2840.114 350.1.13.10 4.2.7.2.686 [id number] [facility] 2021-03-04 00:00:00 2021-03-04 00:00:00 [facility] 1.2840.114 350.1.13.10 4.2.7.2.686 [id number] [facility] 2021-03-04 00:00:00 2021-03-04 00:00:00 Orders Only Doctor Unassigned, [place] [facility] 1.2840.114 350.1.13.10 4.2.7.2.686 [id number] [facility] 2021-03-02 11:38:41 2021-03-02 11:53:41 Hip Hop Dancer Visit 1, Adc Lab Nika Berry [facility] 1.84.114 350.1.13.10 4.2.7.2.686 [id number] [facility] 2021-03-02 11:30:00 2021-03-02 11:30:00 Outpatient R [facility] [id number] [facility] 2021-03-02 11:30:00 2021-03-02 11:30:00 Outpatient R NIKA BERRY [facility] [id number] [facility] 2021-03-02 00:00:00 2021-03-02 00:00:00 Orders Only Doctor Unassigned, [place] [facility] 1.2840.114 350.1.13.10 4.2.7.2.686 [id number] [facility] 2021-03-01 00:00:00 2021-03-01 00:00:00 [facility] [id number] [facility] 2021-03-01 00:00:00 2021-03-01 00:00:00 Out[facility]AD[facility] [id number] [facility] 2021-02-26 16:00:00 2021-02-26 17:26:37 Outpatient R NIKA BERRY [facility] [id number] [facility] 2021-02-26 16:00:00 2021-02-26 17:26:37 [facility] [id number] 2021-02-26 15:40:04 2021-02-26 17:26:37 Office Visit Nika Berry [facility] 1..840.114 350.1.13.10 4.2.7.2.686 [id number] [facility] 2021-02-26 16:00:00 2021-02-26 16:00:00 Outpatient R NIKA BERRY [facility] [id number] [facility] 2021-02-26 00:00:00 2021-02-26 00:00:00 Prep For Surgery Nika Berry [facility] 1..840.114 350.1.13.10 4.2.7.2.686 [id number] [facility] 2021-02-26 00:00:00 2021-02-26 00:00:00 Orders Only Doctor Unassigned, [place] [facility] 1..840.114 350.1.13.10 4.2.7.2.686 [id number] [facility] 2021-02-25 00:00:00 2021-02-25 00:00:00 Prep For Surgery Diann Christianson [facility] 1..840.114 350.1.13.10 4.2.7.2.686 [id number] [facility] 2021-02-24 00:00:00 2021-02-24 00:00:00 Orders Only Doctor Unassigned, [place] [facility] 1.2840.114 350.1.13.10 4.2.7.2.686 [id number] [facility] 2021-02-24 00:00:00 2021-02-24 00:00:00 Patient Secure Msg Doctor Unassigned, [place] [facility] 1.20.114 350.1.13.10 4.2.7.2.686 [id number] [facility] 2021-02-23 14:30:00 2021-02-23 15:55:10 Outpatient R ABBEY ROTHMAN [facility] [id number] [facility] 2021-02-23 14:21:20 2021-02-23 15:55:10 Office Visit Stephan Abbey [facility] 1.840.114 350.1.13.10 4.2.7.2.686 [id number] [facility] 2021-02-23 14:30:00 2021-02-23 14:30:00 Outpatient R ABBEY ROTHMAN [facility] [id number] [facility] 2021-02-23 00:00:00 2021-02-23 00:00:00 Orders Only Doctor Unassigned, [place] [facility] 1.284114 350.1.13.10 4.2.7.2.686 [id number] [facility] 2021-02-17 14:10:00 2021-02-17 23:59:00 Out[facility] [id number] [facility] 2021-02-17 14:10:00 2021-02-17 23:59:00 [facility] 1..840.114 350.1.13.10 4.2.7.2.686 [id number] [facility] 2021-02-17 15:40:00 2021-02-17 14:10:44 [facility] [id number] [facility] 2021-02-17 15:40:00 2021-02-17 14:10:44 Out[facility] [id number] [facility] 2021-02-17 13:16:10 2021-02-17 14:10:44 [facility] 1.2.840.114 350.1.13.10 4.2.7.2.686 [id number] [facility] 2021-02-17 13:16:10 2021-02-17 14:10:44 [facility] 1.2.840.114 350.1.13.10 4.2.7.2.686 [id number] [facility] 2021-02-16 00:00:00 2021-02-16 00:00:00 Telephone NabilajillMiya hoang [facility] 1.2.840.114 350.1.13.10 4.2.7.2.686 [id number] 044 [id number] [facility] 2021-02-11 00:00:00 2021-02-11 00:00:00 Patient Secure Msg JavanMiya [facility] 1.2.840.114 350.1.13.10 4.2.7.2.686 [id number] [facility] 2021-02-11 00:00:00 2021-02-11 00:00:00 Telephone JavanMiya [facility] 1.2.840.114 350.1.13.10 4.2.7.2.686 [id number] [id number] [facility] 2021-02-10 10:33:05 2021-02-10 23:59:00 Hospital Encounter Miya Edouard [facility] 1.2.840.114 350.1.13.10 4.2.7.2.686 [id number] [facility] 2021-02-10 10:33:05 2021-02-10 23:59:00 Outpatient R MIYA EDOUARD [facility] [id number] [facility] 2021-02-09 15:57:13 2021-02-09 16:12:13 Hip Hop Dancer Visit 2, Adc Lab Miya Edouard [facility] 1.2.840.114 350.1.13.10 4.2.7.2.686 [id number] [facility] 2021-02-09 15:00:00 2021-02-09 15:52:52 Outpatient R NIKA BERRY [facility] [id number] [facility] 2021-02-09 14:35:17 2021-02-09 15:52:52 Office Visit Nika Berry [facility] 1.2.840.114 350.1.13.10 4.2.7.2.686 [id number] [facility] 2021-02-09 15:00:00 2021-02-09 15:00:00 Outpatient R NIKA BERRY [facility] [id number] [facility] 2021-02-08 00:00:00 2021-02-08 00:00:00 Telephone Yasir Ghosh [facility] 1..840.114 350.1.13.10 4.2.7.2.686 [id number] [facility] 2021-02-03 11:49:31 2021-02-03 23:59:00 Hospital Encounter Miya Edouard [facility] 1.2.840.114 350.1.13.10 4.2.7.2.686 [id number] [facility] 2021-02-03 00:00:00 2021-02-03 00:00:00 Outpatient R MIYA EDOUARD [facility] [id number] [facility] 2021-02-03 00:00:00 2021-02-03 00:00:00 Telephone Miya Edouard [facility] 1.2.840.114 350.1.13.10 4.2.7.2.686 [id number] 044 [id number] [facility] 2021-01-30 00:00:00 2021-01-30 00:00:00 Patient Secure Msg Doctor Unassigned, [place] [facility] 1.2.840.114 350.1.13.10 4.2.7.2.686 [id number] [facility] 2021-01-26 00:00:00 2021-01-26 00:00:00 Letter (Out) Miya Edouard [facility] 1.2.840.114 350.1.13.10 4.2.7.2.686 [id number] [facility] 2021-01-22 00:00:00 2021-01-22 00:00:00 Patient Secure Msg Doctor Unassigned, [place] [facility] 1.2.840.114 350.1.13.10 4.2.7.2.686 [id number] [facility] 2021-01-21 00:00:00 2021-01-21 00:00:00 Patient Secure Msg Doctor Unassigned, [place] [facility] 1.2.840.114 350.1.13.10 4.2.7.2.686 [id number] [id number] [facility] 2021-01-21 00:00:00 2021-01-21 00:00:00 Telephone Miya Edouard [facility] 1.284.114 350.1.13.10 4.2.7.2.686 [id number] 044 [id number] [facility] 2021-01-20 15:33:31 2021-01-20 17:02:48 Office Visit Miya Edouard [facility] 1.284.114 350.1.13.10 4.2.7.2.686 [id number] [facility] 2021-01-20 16:00:00 2021-01-20 16:00:00 Outpatient R NABILABECCA [facility] [id number] [facility] 2021-01-07 00:00:00 2021-01-07 00:00:00 Telephone Miya Edouard [facility] 1.84.114 350.1.13.10 4.2.7.2.686 [id number] [facility] 2020-12-11 15:40:00 2020-12-11 15:40:00 Outpatient R RUSSELL LAWLER [facility] [id number] [facility] 2020-12-11 11:44:57 2020-12-11 11:45:04 Imm/Inj Visit Nurse, Jimmy Pob Immunizatio Russell Schmidt [facility] Building 1.84.114 350.1.13.10 4.2.7.2.686 [id number] [facility] 2020-11-14 13:56:15 2020-11-14 14:06:15 Imm/Inj Visit Vaccine, Fern Lucia [facility] Office Building One 1.84.114 350.1.13.10 4.2.7.2.686 [id number] 044 [id number] [facility] 2020-11-14 13:30:00 2020-11-14 13:30:00 Outpatient R FERN EVANGELISTA [facility] [id number] [facility] 2020-10-24 00:00:00 2020-10-24 00:00:00 Telephone Provider, Huy [facility] Care [facility] Office Building One 1..840.114 350.1.13.10 4.2.7.2.686 [id number] [facility] 2020-10-22 10:21:57 2020-10-22 11:20:22 Urgent Care Provider, [facility] Mary Harley [facility] Office Building One ..840.114 350.1.13.10 4.2.7.2.686 [id number] [facility] 2020-10-22 10:20:00 2020-10-22 10:20:00 Outpatient R MARY HARLEY [facility] [id number] [facility] 2020-07-03 10:00:00 2020-07-03 10:00:00 Outpatient R FESTUS MANUEL [facility] [id number] [facility] 2020-07-02 00:00:00 2020-07-02 00:00:00 Patient Outreach Russell Lawler [facility] EFFIE ..840.114 350.1.13.10 4.2.7.2.686 [id number] [facility] 2020-04-23 16:20:00 2020-04-23 16:20:00 Outpatient R MIYA EDOUARD [facility] [id number] [facility] 2020-01-28 00:00:00 2020-01-28 00:00:00 Miya Fisher [facility] 1.2.840.114 350.1.13.10 4.2.7.2.686 [id number] 2020-01-28 00:00:00 2020-01-28 00:00:00 Refill Miya Edouard [facility] Professio nal Building 1.2.840.114 350.1.13.10 4.2.7.2.686 [id number] [facility] 2020-01-21 15:55:21 2020-01-21 16:32:24 Office Visit [facility] 1.2.840.114 350.1.13.10 4.2.7.2.686 [id number] 044 [id number] [facility] 2020-01-21 15:55:21 2020-01-21 16:32:24 Office Visit Miya Edouard [facility] 1.2.840.114 350.1.13.10 4.2.7.2.686 [id number] 2020-01-21 16:00:00 2020-01-21 16:00:00 Outpatient R MIYA EDOUARD [facility] [id number] [facility] 2020-01-15 15:00:00 2020-01-15 15:00:00 Outpatient R MIYA EDOUARD [facility] [id number] [facility] 2020-01-03 00:00:00 2020-01-03 00:00:00 Transition of Care Karen Copeland Lea 1.2.840.114 350.1.13.10 4.2.7.2.686 [id number] [facility] 2020-01-01 14:37:00 2020-01-01 17:46:00 Emergency Ramirez Fink [facility] 1.2.840.114 350.1.13.10 4.2.7.2.686 [id number] [facility] 2020-01-01 13:13:43 2020-01-01 14:23:28 Office Visit Miya Edouard [facility] 1.84.114 350.1.13.10 4.2.7.2.686 [id number] [facility] 2020-01-01 13:20:00 2020-01-01 13:20:00 Outpatient R MIYA EDOUARD [facility] [id number] [facility] 2019-12-30 11:40:00 2019-12-30 11:40:00 Outpatient R MAXIMILIANO GILA [facility] [id number] [facility] 2019-12-30 10:16:20 2019-12-30 10:36:20 Laboratory Only Lab, [facility] Sherry Andersongonzalez [facility] Office Building One ..114 350.1.13.10 4.2.7.2.686 [id number] [id number] [facility] 2019-12-30 00:00:00 2019-12-30 00:00:00 Letter (Out) Miya Edouard [facility] Office Building One 1.84.114 350.1.13.10 4.2.7.2.686 [id number] [facility] 2019-11-14 14:40:00 2019-11-14 14:40:00 Outpatient R GEORGE GIL [facility] [id number] [facility] 2019-11-14 14:18:15 2019-11-14 14:37:06 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, [facility] Jennifer AndersongonzalezCount includes the [facility] Office Building One ..114 350.1.13.10 4.2.7.2.686 [id number] [id number] [facility] 2019-10-15 13:23:22 2019-10-15 13:43:22 Laboratory Only Lab, Adc Fam Pob I Jeffery [facility] Office Building One 1.20.114 350.1.13.10 4.2.7.2.686 [id number] [facility] 2019-10-15 13:20:00 2019-10-15 13:20:00 Outpatient R GEORGE GIL [facility] [id number] [facility] 2019-08-28 09:01:21 2019-08-28 23:59:00 Outpatient R GUICHO MARY [facility] [id number] [facility] 2019-08-28 09:01:00 2019-08-28 23:59:00 Hospital Encounter Mary Harley [facility] 1.0.114 350.1.13.10 4.2.7.2.686 [id number] [facility] 2019-08-28 08:00:00 2019-08-28 08:00:00 Outpatient R MIYA EDOUARD [facility] [id number] [facility] 2019-08-28 00:00:00 2019-08-28 00:00:00 Telephone Mary Harley [facility] 1.0.114 350.1.13.10 4.2.7.2.686 [id number] [facility] 2019-06-03 13:49:16 2019-06-03 14:41:30 [facility] 1..114 350.1.13.10 4.2.7.2.686 [id number] [id number] [facility] 2019-06-03 00:00:00 2019-06-03 00:00:00 [facility] (Out[facility] 1.0.114 350.1.13.10 4.2.7.2.686 [id number] [id number] [facility] 2019-06-03 00:00:00 2019-06-03 00:00:00 Telephone Jeffery George [facility] Office Building One 1.2.840.114 350.1.13.10 4.2.7.2.686 [id number] 044 [id number] [facility] 2018-12-14 00:00:00 2018-12-14 00:00:00 Orders Only Doctor Unassigned, [place] [facility] 1.2.840.114 350.1.13.10 4.2.7.2.686 [id number] [facility] 2018-12-04 10:53:20 2018-12-04 11:38:20 Ancillary Visit Sherley Lofton Craig [facility] Building 1.2.840.114 350.1.13.10 4.2.7.2.686 [id number] [facility] 2018-11-28 00:00:00 2018-11-28 00:00:00 Telephone Kevin Valadez [facility] Building 1.2.840.114 350.1.13.10 4.2.7.2.686 [id number] 044 [id number] [facility] 2018-11-25 12:54:02 2018-11-25 16:54:00 Emergency Betito Barroso [facility] 1.2.840.114 350.1.13.10 4.2.7.2.686 [id number] [facility] 2018-11-25 00:00:00 2018-11-25 00:00:00 Orders Only Doctor Unassigned, [place] [facility] 1.2.840.114 350.1.13.10 4.2.7.2.686 [id number] [facility] 2018-11-22 10:57:21 2018-11-22 16:41:21 Ancillary Visit Sherley Lofton [facility] nal Building 1.2.840.114 350.1.13.10 4.2.7.2.686 [id number] [facility] 2018-11-20 11:02:45 2018-11-20 11:47:45 Ancillary Visit Sherley Lofton White Malik T[facility] Building 1.2.840.114 350.1.13.10 4.2.7.2.686 [id number] [facility] 2018-11-16 09:44:34 2018-11-16 23:59:00 Hospital Encounter Freddy [facility] Building 1.2.840.114 350.1.13.10 4.2.7.2.686 [id number] [facility] 2018-11-16 09:44:18 2018-11-16 23:59:00 Hospital Encounter Freddy [facility] Building 1.2.840.114 350.1.13.10 4.2.7.2.686 [id number] [facility] 2018-11-16 09:12:01 2018-11-16 10:21:34 Office Visit Freddy [facility] Building 1.2.840.114 350.1.13.10 4.2.7.2.686 [id number] [facility] 2018-11-15 00:00:00 2018-11-15 00:00:00 Kevin Stein [facility] Building 1.2.840.114 350.1.13.10 4.2.7.2.686 [id number] [facility] 2018-11-13 10:50:44 2018-11-13 11:00:07 Ancillary Visit Carmen Mott Craig L [facility] 1.2.840.114 350.1.13.10 4.2.7.2.686 [id number] [facility] Results Test Description Test Time Test Comments Results Resul t Comments Source CT Angiogram chest 3 00:28:48 <OBX.5.1><OBX.5.1.1> CTA CHEST ABDOMEN </OBX.5.1.1><OBX.5.1 .2> PELVIS Indication: Chest pain and extremity weakness Technique: Axial noncontrast CT imaging was initially performed. Postcontrast arterial phase CT angiogram imaging of the chest and abdomen and pelvis was performed. Three-dimensional postprocessing was done. This allowed for creation of both 3-D images maximum intensity projections sagittal and coronal reformats. Dose reduction techniques were used (ALARA). Comparison: CT SOFT TISSUE NECK W CONTRAST on DOS: 03/04/24, XR CHEST 1 VW on DOS: 12/01/22, CT STROKE ANGIOGRAM NECK on DOS: 09/28/22 RL: [facility] ?HS: Y Ordering Clinician: KATHE ZHAO Technical Quality: Adequate Findings: Vasculature No aortic aneurysm or dissection. No aortic hemorrhage. ?Minimal atherosclerotic change within the abdominal aorta. ?The celiac and mesenteric and renal arteries are patent. The major vessels off of the aortic arch are patent. The central pulmonary arteries are patent. The heart size is normal. Minimal atherosclerotic calcification within the left anterior descending coronary artery. Additional Findings Chest: No acute abnormalities within the lungs. Organs: No acute liver pathology. Normal gallbladder. The pancreas is normal. No splenic masses. The adrenal glands are normal. : No hydronephrosis. No renal stones. The ureters are normal. The bladder is normal. Intrauterine device. GI: Mild diverticulosis without diverticulitis.No evidence of small bowel obstruction. No inflammation of the appendix. Misc.: Subcentimeter lymph nodes are below size criteria. No free air or free fluid. Bone: L5-S1 discectomy. [facility] CT Angiogram abdomen/pelvis 3 00:28:48 <OBX.5.1><OBX.5.1.1> CTA CHEST ABDOMEN </OBX.5.1.1><OBX.5.1 .2> PELVIS Indication: Chest pain and extremity weakness Technique: Axial noncontrast CT imaging was initially performed. Postcontrast arterial phase CT angiogram imaging of the chest and abdomen and pelvis was performed. Three-dimensional postprocessing was done. This allowed for creation of both 3-D images maximum intensity projections sagittal and coronal reformats. Dose reduction techniques were used (ALARA). Comparison: CT SOFT TISSUE NECK W CONTRAST on DOS: 03/04/24, XR CHEST 1 VW on DOS: 12/01/22, CT STROKE ANGIOGRAM NECK on DOS: 09/28/22 RL: [facility] ?HS: Y Ordering Clinician: KATHE ZHAO Technical Quality: Adequate Findings: Vasculature No aortic aneurysm or dissection. No aortic hemorrhage. ?Minimal atherosclerotic change within the abdominal aorta. ?The celiac and mesenteric and renal arteries are patent. The major vessels off of the aortic arch are patent. The central pulmonary arteries are patent. The heart size is normal. Minimal atherosclerotic calcification within the left anterior descending coronary artery. Additional Findings Chest: No acute abnormalities within the lungs. Organs: No acute liver pathology. Normal gallbladder. The pancreas is normal. No splenic masses. The adrenal glands are normal. : No hydronephrosis. No renal stones. The ureters are normal. The bladder is normal. Intrauterine device. GI: Mild diverticulosis without diverticulitis.No evidence of small bowel obstruction. No inflammation of the appendix. Misc.: Subcentimeter lymph nodes are below size criteria. No free air or free fluid. Bone: L5-S1 discectomy. [facility] ETHANOL 2 23:28:36 ALCOHOL<10mg/dL01/16 6:28 PM CDTUTMB LABORATORY SERVICESToxic Greater than or equal to 80 mg/dL. NOTE: Whole blood values are approximately 10% to 15% lower than serum and plasma. [facility] [id number] 23:22:35* Test Item Value Reference Range Interpretation Comme nts TROPONIN I (test code = 4656647652) 0.003 ng/mL <=0.034 MISAEL (test code = MISAEL) [...] of biotin. Lab Interpretation (test code = 98001-2) [facility] (NA, K, CL, CO2, GLUCOSE, BUN, CREATININE, CA)2025-01-16 23:11:33* Test Item Value Reference Range Interpretation Comme nts NA (test code = 7738971870) 140 mmol/L 135-145 K (test code = 9579762078) 3.7 mmol/L 3.5-5.0 CL (test code = 2504029288) 101 mmol/L 98-108 CO2 TOTAL (test code = 4764140908) 19 mmol/L 23-31 L AGAP (test code = 1737984039) 20 2-16 H BUN (test code = 5153639997) 8 mg/dL 7-23 GLUCOSE (test code = 4372776399) 135 mg/dL 70-110 H CREATININE (test code = 2160-0) 0.73 mg/dL 0.50-1.04 CALCIUM (test code = 3585455401) 9.7 mg/dL 8.6-10.6 eGFR (test code = 94337-4) 103.5 mL/min/1.73m2 CKD-EPI eGFR (2020). Assuming creatinine has been stable day-to-day for at least three months, the eGFR indicates Category G1 (>= 90 mL/min/1.73 m2) Lab Interpretation (test code = 61513-1) [facility] PAN[facility] (68460) (ALB,T.PRO,BILI T,BU/BC,ALT,AST,ALK PHOS)2025-01-16 23:11:33* Test Item Value Reference Range Interpretation Comme nts TOTAL BILI (test code = 8199936486) 0.8 mg/dL 0.1-1.1 BILI UNCON (test code = 7185237051) 0.6 mg/dL 0.1-1.1 BILI CONJ (test code = 3574967257) 0 mg/dL 0.0-0.3 T PROTEIN (test code = 7665489128) 8.4 g/dL 6.3-8.2 H ALBUMIN (test code = 8203238232) 5 g/dL 3.5-5.0 ALK PHOS (test code = 1227362461) 42 U/L 34-122 ALTv (test code = 1742-6) 21 U/L 5-35 AST(SGOT) (test code = 5247006007) 23 U/L 13-40 Lab Interpretation (test cod e = 88225-6) [facility]normal [facility] CenterLIPASE2025-10-02 23:11:33* Test Item Value Reference Range Interpretation Comme nts LIPASE (test code = 7153077070) 56 U/L 0-220 Lab Interpretation (test cod e = 95538-6) Normal [facility] CenterCreatine [id number] 23:11:33* Test Item Value Reference Range Interpretation Comme nts CK (test code = 6287735426) 58 U/L 33-194 Lab Interpretation (test cod e = 56681-6) Normal [facility] CenterMagnesium2025-10-02 23:11:33* Test Item Value Reference Range Interpretation Comme nts MAGNESIUM (test code = 1432589678) 1.8 mg/dL 1.7-2.4 Lab Interpretation (test cod e = 08448-2) Normal [facility] CenterCBC WITH [id number] 22:53:46* Test Item Value Reference Range Interpretation Comme nts WBC (test code = 6690-2) 9.46 4.30-11.10 RBC (test code = 789-8) 4.54 3.93-5.25 HGB (test code = 718-7) 14.5 g/dL 11.6-15.0 HCT (test code = 4544-3) 40.2 % 35.7-45.2 MCV (test code = 787-2) 88.5 fL 80.6-95.5 MCH (test code = 785-6) 31.9 pg 25.9-32.8 MCHC (test code = 786-4) 36.1 g/dL 31.6-35.1 H RDW-SD (test code = 94198-6) 40.3 fL 39.0-49.9 RDW-CV (test code = 788-0) 12.4 % 12.0-15.5 PLT (test code = 777-3) 399 166-358 H MPV (test code = 71060-3) 9.3 fL 9.5-12.9 L NRBC/100 WBC (test code = 0439230207) 0 0.0-10.0 NRBC x10^3 (test code = 4413545959) See_Comment [Automated messa ge] The system which generated this result transmitted reference range: 10*3/?L. The reference range was not used to interpret this result as normal/abnormal. GRAN MAT (NEUT) % (test code = 770-8) 63.6 % IMM GRAN % (test code = 7200386123) 0.2 % LYMPH % (test code = 736-9) 29.6 % MONO % (test code = 5905-5) 5 % EOS % (test code = 713-8) 1.2 % BASO % (test code = 706-2) 0.4 % GRAN MAT x10^3(ANC) (test code = 3377990833) 6.02 10*3/uL 1.88-7.09 IMM GRAN x10^3 (test code = 2534733258) 0.00-0.06 LYMPH x10^3 (test code = 731-0) 2.8 10*3/uL 1.32-3.29 MONO x10^3 (test code = 742-7) 0.47 10*3/uL 0.33-0.92 EOS x10^3 (test code = 711-2) 0.11 10*3/uL 0.03-0.39 BASO x10^3 (test code = 704-7) 0.04 10*3/uL 0.01-0.07 Lab Interpretation (test code = 67005-7) Abnormal [facility] ACID WITH 2 HOUR [id number] 22:49:36* Test Item Value Reference Range Interpretation Comme nts LACTIC ACID (test code = 5786329348) 5.31 mmol/L 0.50-2.20 H Lab Interpretation (test cod e = 05736-8) Abnormal [facility] CenterACUTE CARE VENOUS BLOOD [id number] 22:49:36 * Test Item Value Reference Range Interpretation Comme nts PH (test code = 8622232644) 7.46 7.32-7.42 H PCO2 HEIDI (test code = 1632771593) 31 41-51 L PO2 HEIDI (test code = 3557366447) 33 25-40 HCO3 HEIDI (test code = 5140689803) 21 24-28 L AC VBE (test code = 2303608870) -1.5 -3.0-3.0 Lab Interpretation (test cod e = 24597-8) Abnormal [facility] GLUCOSE (AUTOMATED)2025-01-16 22:30:46* Test Item Value Reference Range Interpretation Comme nts POCT GLU (test code = 1560639036) 133 mg/dL 70-110 H Lab Interpretation (test cod e = 43182-5) Abnormal [facility] CenterDME/SUPPLY [id number] 21:28:23 Ordered by an unspecified provider.[facility] PELVIS COMPLETE WITH [id number] 21:59:57EXAM: US PELVIS COMPLETE WITH TRANSVAGINAL HISTORY: Adnexal [...] complex cyst in the left ovarywith mixed inte rnal echoes and septations, likely a hemorrhagic cyst. 1.5cm follicle in the right ovary. No free fluid in the pelvic cul-de-sac.[facility] SOFT TISSUE NECK W [id number] 16:10:00EXAM: CT SOFT TISSUE NECK W CONTRAST History/Indication: lymphadenopathy Comparison: 09/28/2022 Technique: Axial postcontrast images were obtained from lateral ventriclesthrough the mediastinum. Findings: Visualized aspects of the brain, orbits and paranasal sinuseswere without worrisome findings. There were no mucosal lesions. Clinical impression notwithstanding, theright parotid, although mildlyprominent in terms of size shows no focallesions. With respect to the lymph nodes, I do not see clear-cut adenopathyis perhaps 1 prominent right low level 3 presumably reactive node annotatedon image55 of series 2, about 1 cm in size, stable since the prior study.[facility] CenterMR LUMBAR SPINE WO [id number] 19:43:13EXAM: MR LUMBAR SPINE WO CONTRAST HISTORY: Chronic [...] normal in height and signal intensity. At L1- L2, mild disc bulge with mild facet arthrosis. No high-grade spinalcanal stenosis or significant neural foraminal narrowing. At L2-L3, mild disc bulge withmild facet arthrosis. No high-grade spinalcanal stenosis or significant neural foraminal narrowing.At L3-L4, mild disc bulge with bilateral facet arthrosis. No high-gradespinal canal stenosis or significant neural foraminal narrowing. At L4-L5, diffuse disc bulge with facet arthrosis. No high-grade spinalcanal stenosis or significant neural foraminal narrowing. At L5-S1, evaluation of this levelis limited due to susceptibilityartifact from the hardware. Bilateral facet arthrosis noted. No grosshigh-grade spinal canal stenosis or significant neural foraminal narrowing. The paraspinal soft tissues are unremarkable. Partially imaged cystic lesion in the left adnexal region, the visualizedparts measures 6 cm.[facility] CenterCT MAXILLOFACIAL/MANDIBLE WO [id number] 23:48:15EXAM: CT MAXILLOFACIAL/MANDIBLE WO CONTRAST HISTORY: Chronic Sinus Irritation/Chronic Allergic Reaction TECHNIQUE: CT of the face was performed without intravenous contrast.Sagittal and coronal reformats were generated. COMPARISON: None. FINDINGS: The frontal sinuses are clear. The frontal recessesare patent. The ethmoidal air cells are clear. Ethmoidal roofs are symmetric. Laminapapyracea is intact. The maxillary sinuses are clear. Ostiomeatal units are patent. Sphenoid sinuses are clear. Sphenoethmoidal recesses are patent. Sphenoidseptum is deviated to left side. The nasal septum is deviated to left side with leftward osseous spur noted.Partial paradoxical right middle turbinate. Turbinates morphology isotherwise unremarkable. The mastoid air cells are clear.[facility] CenterC-Reactive Pwcdory5947-58-33 18:36:39* Test Item Value Reference Range Interpretation Comme [facility] CRP (test code = 8224487972) 1.2 mg/dL <=0.8 H Lab Interpretation (test cod e = 29772-5) Abnormal [facility] CenterGlycosylated Hemoglobin (A1C)2024-02-01 18:05:38* Test Item Value Reference Range Interpretation Comme [facility] HGB A1C (test code = 4548-4) 5.3 % 4.0-5.7 MISAEL (test code = MISAEL) Reference RangesNormal: <5.7%Prediabetes: 5.7 - 6.4%Diabetes: > 6.5% Lab Interpretation (test code = 56805-5) Normal [facility] CenterThyroid Stimulating Czilyfs3839-51-01 17:23:12 * Test Item Value Reference Range Interpretation Comme nts TSH (test code = 2677143587) 1.09 0.45-4.70 Biotin has been reported to cause a negative bias, interpret results relative to patient's use of biotin. Lab Interpretation (test code = 43231-0) Normal [facility] [id number] 17:10:13* Test Item Value Reference Range Interpretation Comme nts FREE T4 (test code = 0627879331) 0.79 0.78-2.20 Lab Interpretation (test cod e = 94568-8) Normal [facility] [id number] 17:09:52* Test Item Value Reference Range Interpretation Comme [facility] FREE T3 (test code = 2879354778) 3.68 pg/mL 2.77-5.27 Lab Interpretation (test cod e = 41189-0) Normal [facility] CenterLipid Panel (31962)(Total Cholesterol, Triglycerides, HDL)2024-02-01 16:47:08* Test Item Value Reference Range Interpretation Comme nts CHOL (test code = 9515162989) 233 mg/dL 120-200 H HDL (test code = 1217570498) 46 mg/dL >=50 L HDLC RATIO (test code = 9376620314) 5.1 <=4.5 H TRIG (test code = 8059441392) 142 mg/dL 30-170 LDL CHOL (test code = 68571-6) 159 mg/dL <=160 VLDL (test code = 3683645935) 28 mg/dL 5-60 Lab Interpretation (test cod e = 82075-4) Abnormal [facility] CenterSedimentation [id number] 16:15:08* Test Item Value Reference Range Interpretation Comme [facility] ESR (test code = 46885-7) 16 0-20 Lab Interpretation (test cod e = 28963-6) Normal [facility] CenterThyroid Peroxidase (Tpo) [id number] 00:03:00 * Test Item Value Reference Range Interpretation Comme [facility] TPO Ab IgG (test code = 0779291644) 15.3 0.0-100.0 MISAEL (test code = MISAEL) [...] and Graves'disease. Lab Interpretation (test code = 64344-8) Normal [facility] CenterAnti-SCL-537189-69-13 17:51:09* Test Item Value Reference Range Interpretation Comme [facility] ANTI-SCL70 (test code = 4972562179) Negative Negative MISAEL (test code = MISAEL) Positive - Antibod y detected.Negative - No antibody detected. Lab Interpretation (test code = 29174-5) [facility]-SSA(RO)2024-01-11 17:51:09* Test Item Value Reference Range Interpretation Comme nts ANTI-SSA(RO) (test code = 9276666445) Negative Negative MISAEL (test code = MISAEL) Positive - Antibod y detected.Negative - No antibody detected. Lab Interpretation (test code = 54036-4) [facility]-SM/YPO7092-28-83 17:50:49* Test Item Value Reference Range Interpretation Comme nts ANTI-SMRNP (test code = 6466663548) Negative Negative MISAEL (test code = MISAEL) Positive - Antibod y detected.Negative - No antibody detected. Lab Interpretation (test code = 88896-1) [facility]-Centromere [id number] 17:50:49* Test Item Value Reference Range Interpretation Comme nts ANTI-CENTR (test code = 0203310549) Negative Negative MISAEL (test code = MISAEL) Positive - Antibod y detected.Negative - No antibody detected. Lab Interpretation (test code = 14234-5) [facility]-SSB(LA)2024-01-11 17:50:49* Test Item Value Reference Range Interpretation Comme nts Anti-SSB(LA) (test code = 6587414150) Negative Negative MISAEL (test code = MISAEL) Positive - Antibod y detected.Negative - No antibody detected. Lab Interpretation (test code = 50221-0) Normal [facility] CenterC-Reactive [id number] 20:29:51* Test Item Value Reference Range Interpretation Comme nts CRP (test code = 8870113682) 0.6 mg/dL <=0.8 Lab Interpretation (test cod e = 48568-2) Normal [facility] CenterComp. Metabolic Panel (52838)2024-01-10 19:51:48* Test Item Value Reference Range Interpretation Comme nts NA (test code = 0924998286) 137 mmol/L 135-145 K (test code = 3037535896) 4.6 mmol/L 3.5-5.0 CL (test code = 3069053656) 101 mmol/L 98-108 CO2 TOTAL (test code = 6761363330) 22 mmol/L 23-31 L AGAP (test code = 4184140381) 14 2-16 BUN (test code = 5958756372) 11 mg/dL 7-23 GLUCOSE (test code = 7566255017) 99 mg/dL 70-110 CREATININE (test code = 2160-0) 0.58 mg/dL 0.50-1.04 TOTAL BILI (test code = 7533512032) 0.3 mg/dL 0.1-1.1 CALCIUM (test code = 0141270416) 9.6 mg/dL 8.6-10.6 T PROTEIN (test code = 6875050042) 7.6 g/dL 6.3-8.2 ALBUMIN (test code = 8296169496) 4.7 g/dL 3.5-5.0 ALK PHOS (test code = 5517901319) 47 U/L 34-122 ALTv (test code = 1742-6) 21 U/L 5-35 AST(SGOT) (test code = 7504945885) 20 U/L 13-40 eGFR (test code = 46714-2) 114.6 mL/min/1.73m2 CKD-EPI eGFR (2020). Assuming creatinine has been stable day-to-day for at least three months, the eGFR indicates Category G1 (>= 90 mL/min/1.73 m2) Lab Interpretation (test code = 70271-5) Abnormal [facility] with [id number] 17:48:56* Test Item Value Reference Range Interpretation [...] 33.6 g/dL 31.6-35.1 RDW-SD (test code = 17368-1) 42.4 fL 39.0-49.9 RDW-CV (test code = 788-0) 12.9 % 12.0-15.5 PLT (test code = 777-3) 360 166-358 H MPV (test code = 23215-3) 9.3 fL 9.5-12.9 L NRBC/100 WBC (test code = 2954967537) 0.0 0.0-10.0 NRBC x10^3 (test code = 6278524162) See_Comment [Automated messa ge] The system which generated this result transmitted reference range: 10*3/?L. The reference range was not used to interpret this result as normal/abnormal. GRAN MAT (NEUT) % (test code = 770-8) 68.9 % IMM GRAN % (test code = 8909010806) 0.50 % LYMPH % (test code = 736-9) 22.7 % MONO % (test code = 5905-5) 5.4 % EOS % (test code = 713-8) 1.8 % BASO % (test code = 706-2) 0.7 % GRAN MAT x10^3(ANC) (test code = 2227030275) 5.96 10*3/uL 1.88-7.09 IMM GRAN x10^3 (test code = 3426200515) 0.04 10*3/uL 0.00-0.06 LYMPH x10^3 (test code = 731-0) 1.96 10*3/uL 1.32-3.29 MONO x10^3 (test code = 742-7) 0.47 10*3/uL 0.33-0.92 EOS x10^3 (test code = 711-2) 0.16 10*3/uL 0.03-0.39 BASO x10^3 (test code = 704-7) 0.06 10*3/uL 0.01-0.07 Lab Interpretation (test code = 28618-8) Abnormal [facility] CenterTHYROID STIMULATING [id number] 18:40:31 * Test Item Value Reference Range Interpretation Comme nts TSH (test code = 4612334404) 1.07 See_Comment [Automated messa ge] The system which generated this result transmitted reference range: 0.45 - 4.70 mIU/L. The reference range was not used to interpret this result as normal/abnormal. Lab Interpretation (test code = 74727-6) Normal [facility] [id number] 18:27:10* Test Item Value Reference Range Interpretation Comme nts FREE T4 (test code = 4158029483) 0.93 See_Comment [Automated Digital [employer]] The system which generated this result transmitted reference range: 0.78 - 2.20 ng/dL:. The reference range was not used to interpret this result as normal/abnormal. Lab Interpretation (test code = 38001-3) Normal [facility] [id number] 18:26:49* Test Item Value Reference Range Interpretation Comme nts FREE T3 (test code = 0797809951) 3.75 pg/mL 2.77-5.27 Lab Interpretation (test cod e = 28279-8) Normal [facility] CenterTROPONIN [id number] 18:18:01* Test Item Value Reference Range Interpretation Comme nts TROPONIN I (test code = 3583122334) 0.005 ng/mL <=0.034 MISAEL (test code = [...] of biotin. Lab Interpretation (test code = 79925-8) Normal [facility] METABOLIC PANEL (38316)2022-12-01 18:08:16* Test Item Value Reference Range Interpretation Comme nts NA (test code = 6326962317) 139 mmol/L 135-145 K (test code = 7661270814) 4.0 mmol/L 3.5-5.0 CL (test code = 7824793079) 106 mmol/L 98-108 CO2 TOTAL (test code = 1681247124) 26 mmol/L 23-31 AGAP (test code = 6295465456) 7 2-16 BUN (test code = 2716237551) 13 mg/dL 7-23 GLUCOSE (test code = 3938559729) 98 mg/dL 70-110 CREATININE (test code = 6760271471) 0.59 mg/dL 0.50-1.04 TOTAL BILI (test code = 7300656287) 0.4 mg/dL 0.1-1.1 CALCIUM (test code = 7818618819) 7.8 mg/dL 8.6-10.6 L T PROTEIN (test code = 9729700141) 6.3 g/dL 6.3-8.2 ALBUMIN (test code = 1475290248) 3.6 g/dL 3.5-5.0 ALK PHOS (test code = 2685650918) 36 U/L 34-122 ALTv (test code = 1742-6) 18 U/L 5-35 AST(SGOT) (test code = 8503170444) 20 U/L 13-40 eGFR (test code = 9807190398) 111.2 mL/min/1.73m2 MISAEL (test code = MISAEL) [...] imaging tests). Lab Interpretation (test code = 89846-9) Abnormal [facility] CenterLIPASE2023-08-17 18:08:01* Test Item Value Reference Range Interpretation Comme nts LIPASE (test code = 4951133624) 50 U/L 0-220 Lab Interpretation (test cod e = 39489-0) Normal [facility] CenterCBC WITH [id number] 17:55:37* Test Item Value Reference Range Interpretation Comme nts WBC (test code = 6690-2) 5.65 See_Comment [Automated Digital [employer]] The system which generated this result transmitted reference range: 4.30 - 11.10 10*3/?L. The reference range was not used to interpret this result as normal/abnormal. RBC (test code = 789-8) 3.92 See_Comment L [Automated Digital [employer]] The system which generated this result transmitted [...] 33.2 g/dL 31.6-35.1 RDW-SD (test code = 02619-0) 45.7 fL 39.0-49.9 RDW-CV (test code = 788-0) 13.6 % 12.0-15.5 PLT (test code = 777-3) 295 See_Comment [Automated Digital [employer]] The system which generated this result transmitted reference range: 166 - 358 10*3/?L. The reference range was not used to interpret this result as normal/abnormal. MPV (test code = 04802-6) 9.8 fL 9.5-12.9 NRBC/100 WBC (test code = 2178963805) 0.0 See_Comment [Automated me ssage] The system which generated this result transmitted reference range: 0.0 - 10.0 /100 WBCs. The reference range was not used to interpret this result as normal/abnormal. NRBC x10^3 (test code = 6525937548) See_Comment [Automated messa ge] The system which generated this result transmitted reference range: 10*3/?L. The reference range was not used to interpret this result as normal/abnormal. GRAN MAT (NEUT) % (test code = 770-8) 66.5 % IMM GRAN % (test code = 4138333749) 0.20 % LYMPH % (test code = 736-9) 24.6 % MONO % (test code = 5905-5) 5.3 % EOS % (test code = 713-8) 2.7 % BASO % (test code = 706-2) 0.7 % GRAN MAT x10^3(ANC) (test code = 1583712419) 3.76 10*3/uL 1.88-7.09 IMM GRAN x10^3 (test code = 7112378073) 0.00-0.06 LYMPH x10^3 (test code = 731-0) 1.39 10*3/uL 1.32-3.29 MONO x10^3 (test code = 742-7) 0.30 10*3/uL 0.33-0.92 L EOS x10^3 (test code = 711-2) 0.15 10*3/uL 0.03-0.39 BASO x10^3 (test code = 704-7) 0.04 10*3/uL 0.01-0.07 Lab Interpretation (test code = 45663-0) Abnormal [facility] CenterHANS [id number] 20:08:39* Test Item Value Reference Range Interpretation Comme nts TROPONIN I (test code = 9138852190) 0.001 ng/mL <=0.034 MISAEL (test code = [...] of biotin. Lab Interpretation (test code = 44662-2) Normal [facility] CenterN-TERMINAL GDT-[id number] 20:05:00* Test Item Value Reference Range Interpretation Comme nts NT-proBNP (test code = 6771427675) 76 pg/mL <=125 MISAEL (test code = MISAEL) Biotin has been reported to cause a negative bias, interpret results relative to patient's use of biotin. Lab Interpretation (test code = 87719-8) Normal [facility] CenterCOMP. METABOLIC PANEL (57911)2022-09-28 19:54:36* Test Item Value Reference Range Interpretation Comme nts NA (test code = 4029786950) 138 mmol/L 135-145 K (test code = 3552299280) 3.8 mmol/L 3.5-5.0 CL (test code = 5917363059) 103 mmol/L 98-108 CO2 TOTAL (test code = 0564998343) 24 mmol/L 23-31 AGAP (test code = 5137114717) 11 2-16 BUN (test code = 2033404231) 14 mg/dL 7-23 GLUCOSE (test code = 9541079870) 98 mg/dL 70-110 CREATININE (test code = 9984176909) 0.66 mg/dL 0.50-1.04 TOTAL BILI (test code = 1901401704) 0.5 mg/dL 0.1-1.1 CALCIUM (test code = 8624798991) 9.6 mg/dL 8.6-10.6 T PROTEIN (test code = 8838434557) 7.4 g/dL 6.3-8.2 ALBUMIN (test code = 6765896068) 4.5 g/dL 3.5-5.0 ALK PHOS (test code = 5830724081) 60 U/L 34-122 ALTv (test code = 1742-6) 17 U/L 5-35 AST(SGOT) (test code = 1257779021) 19 U/L 13-40 eGFR (test code = 9481457789) 97.7 mL/min/1.73m2 MISAEL (test code = MISAEL) [...] or urine or abnormalities in imaging tests). [facility] [id number] 19:44:00* Test Item Value Reference Range Interpretation Comme nts POCT PREG (test code = 1605) Negative On board controls acceptable with C Line (test code = 3574) Yes POCT PREG LOT # (test code = 3579) [id number] POCT PREG TEST DATE ( test code = 3576) 01-21-2024 Lab Interpretation (test cod e = 35970-3) Normal [facility] CenterACTIVATED PARTIAL THRMPLAS [id number] 19:40:13* Test Item Value Reference Range Interpretation Comme [facility] APTT Patient (test code = 3173-2) 30 See_Comment [Automated message] The system which generated this result transmitted reference range: 23 - 38 Seconds. The reference range was not used to interpret this result as normal/abnormal. MISAEL (test code = MISAEL) The [facility] patient population mean normal value for aPTT is 30 seconds. Lab Interpretation (test code = 49844-1) Normal [facility] CenterPROTHROMBIN TIME / [id number] 19:38:12* Test Item Value Reference Range Interpretation Comme [facility] PROTIME PATIENT (test code = 5964-2) 14.4 See_Comment [Automated Digital Dandeliona ge] The system which generated this result transmitted reference range: 12.0 - 14.7 Seconds. The reference range was not used to interpret this result as normal/abnormal. INR (test code = 6301-6) 1.2 Normal INR <1.1; Warfarin Therapeutic range 2.0 to 3.0 or 2.5 to 3.5, depending upon the indications. Lab Interpretation (test code = 57056-9) Normal [facility] CenterCBC WITH [id number] 19:26:08* Test Item Value Reference Range Interpretation Comme [facility] WBC (test code = 6690-2) 6.65 See_Comment [...] 34.5 g/dL 31.6-35.1 RDW-SD (test code = 20541-4) 40.5 fL 39.0-49.9 RDW-CV (test code = 788-0) 12.7 % 12.0-15.5 PLT (test code = 777-3) 347 See_Comment [Automated Digital Dandeliona ge] The system which generated this result transmitted reference range: 166 - 358 10*3/?L. The reference range was not used to interpret this result as normal/abnormal. MPV (test code = 74009-2) 9.6 fL 9.5-12.9 NRBC/100 WBC (test code = 6300137132) 0.0 See_Comment [Automated [employer] ssage] The system which generated this result transmitted reference range: 0.0 - 10.0 /100 WBCs. The reference range was not used to interpret this result as normal/abnormal. NRBC x10^3 (test code = 7957111351) See_Comment [Automated Digital Dandeliona ge] The system which generated this result transmitted reference range: 10*3/?L. The reference range was not used to interpret this result as normal/abnormal. GRAN MAT (NEUT) % (test code = 770-8) 74.1 % IMM GRAN % (test code = 3770174872) 0.80 % LYMPH % (test code = 736-9) 18.8 % MONO % (test code = 5905-5) 5.1 % EOS % (test code = 713-8) 0.6 % BASO % (test code = 706-2) 0.6 % GRAN MAT x10^3(ANC) (test code = 2095452165) 4.93 10*3/uL 1.88-7.09 IMM GRAN x10^3 (test code = 7879645435) 0.05 10*3/uL 0.00-0.06 LYMPH x10^3 (test code = 731-0) 1.25 10*3/uL 1.32-3.29 L MONO x10^3 (test code = 742-7) 0.34 10*3/uL 0.33-0.92 EOS x10^3 (test code = 711-2) 0.04 10*3/uL 0.03-0.39 BASO x10^3 (test code = 704-7) 0.04 10*3/uL 0.01-0.07 Lab Interpretation (test code = 00579-4) [facility] ([id number])2022-02-03 14:01:08* Test Item Value Reference Range Interpretation Comme nts NA (test code = 9172196868) 140 mmol/L 135-145 K (test code = 0645193143) 4.0 mmol/L 3.5-5 CL (test code = 7597499750) 104 mmol/L 98-108 CO2 TOTAL (test code = 9825724560) 22 mmol/L 23-31 L AGAP (test code = 0136615494) 2-16 BUN (test code = 3552263118) 17 mg/dL 7-23 GLUCOSE (test code = 3467998942) 118 mg/dL 70-110 H CREATININE (test code = 2859865726) 0.58 mg/dL 0.5-1.04 TOTAL BILI (test code = 6359726946) 0.3 mg/dL 0.1-1.1 CALCIUM (test code = 2010654225) 9.5 mg/dL 8.6-10.6 T PROTEIN (test code = 3550915980) 7.2 g/dL 6.3-8.2 ALBUMIN (test code = 3549549764) 4.5 g/dL 3.5-5 ALK PHOS (test code = 5396021004) 54 U/L 34-122 ALTv (test code = 1742-6) 28 U/L 5-35 AST(SGOT) (test code = 9401454997) 21 U/L 13-40 eGFR (test code = 6152229469) mL/min/1.73m2 MISAEL (test code = MISAEL) Association [...] imaging tests). Lab Interpretation (test code = 04125-1) Abnormal [facility] WITH BMFK4598-06-13 13:50:24* Test Item Value Reference Range Interpretation Comme nts WBC (test code = 6690-2) See_Comment [GoEuro] The system which generated this result transmitted reference range: 4.30 - 11.10 10*3/?L. The reference range was not used to interpret this result as normal/abnormal. RBC (test code = 789-8) See_Comment [GoEuro] The system which generated this result transmitted [...] 33.9 g/dL 31.6-35.1 RDW-SD (test code = 01717-5) 42.5 fL 39-49.9 RDW-CV (test code = 788-0) 13.2 % 12-15.5 PLT (test code = 777-3) See_Comment H [Automated Digital Dandeliona ge] The system which generated this result transmitted reference range: 166 - 358 10*3/?L. The reference range was not used to interpret this result as normal/abnormal. MPV (test code = 97551-8) 9.2 fL 9.5-12.9 L NRBC/100 WBC (test code = 1388802266) See_Comment [Automated ArriveBefore ssage] The system which generated this result transmitted reference range: 0.0 - 10.0 /100 WBCs. The reference range was not used to interpret this result as normal/abnormal. NRBC x10^3 (test code = 6836619630) See_Comment [Automated Digital Dandeliona ge] The system which generated this result transmitted reference range: 10*3/?L. The reference range was not used to interpret this result as normal/abnormal. GRAN MAT (NEUT) % (test code = 770-8) 77.7 % IMM GRAN % (test code = 0583789259) 0.30 % LYMPH % (test code = 736-9) 15.5 % MONO % (test code = 5905-5) 5.0 % EOS % (test code = 713-8) 1.1 % BASO % (test code = 706-2) 0.4 % GRAN MAT x10^3(ANC) (test code = 8840118218) 5.48 10*3/uL 1.88-7.09 IMM GRAN x10^3 (test code = 0860400321) 0-0.06 LYMPH x10^3 (test code = 731-0) 1.09 10*3/uL 1.32-3.29 L MONO x10^3 (test code = 742-7) 0.35 10*3/uL 0.33-0.92 EOS x10^3 (test code = 711-2) 0.08 10*3/uL 0.03-0.39 BASO x10^3 (test code = 704-7) 0.03 10*3/uL 0.01-0.07 Lab Interpretation (test code = 25464-5) Abnormal [facility] History and Physical Notes Date/Time Note Provider Source 2024-03-04 16:51:56 Consult/Referral Fibroids, submucosal - CONSULT/REFERRAL [facility] Gynecology Renal cyst, acquired, left - Consult/Referral Nephrology [facility] 2024-02-23 11:00:00 Imaging with Consult/Referral Adnexal cyst - US ABDOMEN COMPLETE; Future - CONSULT/REFERRAL [facility] Gynecology [facility] Notes Date/Time Note Provider Source 2025-01-16 22:10:29 Patient to lobby in a wheelchair at this time. Patient not driving. Patient GCS 15, RR e/u and in no acute distress. Barbara Golden RN [facility] 2025-01-16 22:00:00 Patient signed AMA form. Patient educated on risks of leaving and patient verbalized understanding. T [facility] 2025-01-16 21:45:00 Patient reporting that she is having a panic attack and has agoraphobia. Patient requesting medication then to leave AMA MD Zhao at bedside. T [facility] 2025-01-16 20:14:12 Pt reports increased anxiety after halidol. Provider notified Hernando Cardona RN [facility] 2025-01-16 19:51:00 MD Zhao at bedside. [facility] 2025-01-16 19:00:00 Report received from DAVI Deutsch. Patient in stretcher, RR e/u and in no acute distress. [facility] 2025-01-16 17:56:02 PT reports IUD so no chance of George Meyer RN [facility] 2025-01-16 17:27:42 Pt noted to have loss of consciousness approximately 15 secs while transporting to room 105. Loss of tone, no response to sternal rub. 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 lethargic, intermittently hyperventilating, speech clear, responds appropriately/follows commands, moves all extremities, unable to assess gait (assisted from ED lobby via wheelchair by [facility] staff), skin clammy/moist, color pale, pain 01/24, generalized tremors EKG completed in triage To room 105 for eval Marcos Nuñez RN [facility] 2025-01-16 17:03:00 Patient unable to tolerate po. Recent Results (from the past 24 hours) POCT GLUCOSE (AUTOMATED) Collection Time: 01/16/25 5:29 PM Result Value Ref Range POCT GLU 133 (H) 70 - 110 mg/dL CBC WITH DIFF Collection Time: 01/16/25 5:38 PM Result Value Ref Range WBC 9.46 4.30 - 11.10 10*3/?L RBC 4.54 3.93 - 5.25 10*6/?L HGB 14.5 11.6 - 15.0 g/dL HCT 40.2 35.7 - 45.2 % MCV 88.5 80.6 - 95.5 fL MCH 31.9 25.9 - 32.8 pg MCHC 36.1 (H) 31.6 - 35.1 g/dL RDW-SD 40.3 39.0 - 49.9 fL RDW-CV 12.4 12.0 - 15.5 % PLT 399 (H) 166 - 358 10*3/?L MPV 9.3 (L) 9.5 - 12.9 fL NRBC/100 WBC 0.0 0.0 - 10.0 /100 WBCs NRBC x10 3 <0.01 10*3/?L GRAN MAT (NEUT) % 63.6 % IMM GRAN % 0.20 % LYMPH % 29.6 % MONO % 5.0 % EOS % 1.2 % BASO % 0.4 % GRAN MAT x10 3 (ANC) 6.02 1.88 - 7.09 10*3/uL IMM GRAN x10 3 <0.03 0.00 - 0.06 10*3/uL LYMPH x10 3 2.80 1.32 - 3.29 10*3/uL MONO x10 3 0.47 0.33 - 0.92 10*3/uL EOS x10 3 0.11 0.03 - 0.39 10*3/uL BASO x10 3 0.04 0.01 - 0.07 10*3/uL BASIC METABOLIC PANEL (NA, K, CL, CO2, GLUCOSE, BUN, CREATININE, CA) Collection Time: 01/16/25 5:38 PM Result Value Ref Range NA 140 135 - 145 mmol/L K 3.7 3.5 - 5.0 mmol/L CL 101 98 - 108 mmol/L CO2 TOTAL 19 (L) 23 - 31 mmol/L AGAP 20 (H) 2 - 16 BUN 8 7 - 23 mg/dL GLUCOSE 135 (H) 70 - 110 mg/dL CREATININE 0.73 0.50 - 1.04 mg/dL CALCIUM 9.7 8.6 - 10.6 mg/dL eGFR 103.5 mL/min/1.73m2 HEPATIC FUNCTION PANEL (01369) (ALB,T.PRO,BILI T,BU/BC,ALT,AST,ALK PHOS) Collection Time: 01/16/25 5:38 PM Result Value Ref Range TOTAL BILI 0.8 0.1 - 1.1 mg/dL BILI UNCON 0.6 0.1 - 1.1 mg/dL BILI CONJ 0.0 0.0 - 0.3 mg/dL T PROTEIN 8.4 (H) 6.3 - 8.2 g/dL ALBUMIN 5.0 3.5 - 5.0 g/dL ALK PHOS 42 34 - 122 U/L ALTv 21 5 - 35 U/L AST(SGOT) 23 13 - 40 U/L LIPASE Collection Time: 01/16/25 5:38 PM Result Value Ref Range LIPASE 56 0 - 220 U/L TROPONIN I Collection Time: 01/16/25 5:38 PM Result Value Ref Range TROPONIN I 0.003 <=0.034 ng/mL N-TERMINAL PRO-BNP Collection Time: 01/16/25 5:38 PM Result Value Ref Range NT-proBNP 53 <=125 pg/mL ETHANOL Collection Time: 01/16/25 5:38 PM Result Value Ref Range ALCOHOL <10 mg/dL Creatine Kinase Collection Time: 01/16/25 5:38 PM Result Value Ref Range CK 58 33 - 194 U/L Magnesium Collection Time: 01/16/25 5:38 PM Result Value Ref Range MAGNESIUM 1.8 1.7 - 2.4 mg/dL LACTIC ACID WITH 2 HOUR REFLEX Collection Time: 01/16/25 5:47 PM Result Value Ref Range LACTIC ACID 5.31 (H) 0.50 - 2.20 mmol/L ACUTE CARE VENOUS BLOOD GAS Collection Time: 01/16/25 5:47 PM Result Value Ref Range PH 7.46 (H) 7.32 - 7.42 PCO2 HEIDI 31 (L) 41 - 51 mmHg PO2 HEIDI 33 25 - 40 mmHg HCO3 HEIDI 21 (L) 24 - 28 mEq/L AC VBE -1.5 -3.0 - 3.0 mEq/L URINALYSIS Collection Time: 01/16/25 7:21 PM Result Value Ref Range APPEARANCE Clear Clear COLOR Colorless Colorless, Other PH 7.5 4.0 - 8.0 SP GRAVITY 1.025 <=1.030 GLU U QUAL Normal Normal, 30 mg/dL, 50 mg/dL BLOOD Negative Negative KETONES 20 mg/dL (A) Negative, Trace PROTEIN Negative Negative, 10 mg/dL, 20 mg/dL UROBILIN Normal Normal BILIRUBIN Negative Negative NITRITE Negative Negative LEUK HECTOR Negative Negative, 25/uL RBC/HPF 2 0 - 3 HPF WBC/HPF 1 0 - 5 HPF BACTERIA Few (A) Negative MUCOUS Slight (A) Negative LPF SQ EPITH 3 HPF YEAST BUD 3 (H) <=1 HPF URINE DRUG (IMMUNOASSAY) - COMPREHENSIVE DRUG SCREEN W/O REFLEX Collection Time: 01/16/25 7:21 PM Result Value Ref Range AMPHET Negative Negative AUSTIN U Negative Negative BENZO U Negative Negative Cocaine Metabolite Negative Negative METHADONE Negative Negative OPIATES Negative Negative PCP Negative Negative THC Presumptive Positive (A) Negative Fentanyl (Immunoassay) Collection Time: 01/16/25 7:21 PM Result Value Ref Range FENTANYL Negative Negative LACTIC ACID WITH 2 HOUR REFLEX Collection Time: 01/16/25 9:00 PM Result Value Ref Range LACTIC ACID 2.89 (H) 0.50 - 2.20 mmol/L Hospital Encounter on 01/16/25 CT Angiogram abdomen/pelvis Narrative <OBX.5.1><OBX.5.1.1>CTA CHEST ABDOMEN </OBX.5.1.1><OBX.5.1.2> PELVIS Indication: Chest pain and extremity weakness Technique: Axial noncontrast CT imaging was initially performed. Postcontrast arterial phase CT angiogram imaging of the chest and abdomen and pelvis was performed. Three-dimensional postprocessing was done. This allowed for creation of both 3-D images maximum intensity projections sagittal and coronal reformats. Dose reduction techniques were used (ALARA). Comparison: CT SOFT TISSUE NECK W CONTRAST on DOS: 03/04/24, XR CHEST 1 VW on DOS: 12/01/22, CT STROKE ANGIOGRAM NECK on DOS: 09/28/22 RL: [facility] HS: Y Ordering Clinician: KATHE ZHAO Technical Quality: Adequate Findings: Vasculature No aortic aneurysm or dissection. No aortic hemorrhage. Minimal atherosclerotic change within the abdominal aorta. The celiac and mesenteric and renal arteries are patent. The major vessels off of the aortic arch are patent. The central pulmonary arteries are patent. The heart size is normal. Minimal atherosclerotic calcification within the left anterior descending coronary artery. Additional Findings Chest: No acute abnormalities within the lungs. Organs: No acute liver pathology. Normal gallbladder. The pancreas is normal. No splenic masses. The adrenal glands are normal. : No hydronephrosis. No renal stones. The ureters are normal. The bladder is normal. Intrauterine device. GI: Mild diverticulosis without diverticulitis.No evidence of small bowel obstruction. No inflammation of the appendix. Misc.: Subcentimeter lymph nodes are below size criteria. No free air or free fluid. Bone: L5-S1 discectomy. Impression Impression: 1. No acute arterial abnormality. 2. Mild diverticulosis without diverticulitis. ASSISTANT </OBX.5.1.2></OBX.5.1> CT Angiogram chest Narrative <OBX.5.1><OBX.5.1.1>CTA CHEST ABDOMEN </OBX.5.1.1><OBX.5.1.2> PELVIS Indication: Chest pain and extremity weakness Technique: Axial noncontrast CT imaging was initially performed. Postcontrast arterial phase CT angiogram imaging of the chest and abdomen and pelvis was performed. Three-dimensional postprocessing was done. This allowed for creation of both 3-D images maximum intensity projections sagittal and coronal reformats. Dose reduction techniques were used (ALARA). Comparison: CT SOFT TISSUE NECK W CONTRAST on DOS: 03/04/24, XR CHEST 1 VW on DOS: 12/01/22, CT STROKE ANGIOGRAM NECK on DOS: 09/28/22 RL: [facility] HS: Y Ordering Clinician: KATHE ZHAO Technical Quality: Adequate Findings: Vasculature No aortic aneurysm or dissection. No aortic hemorrhage. Minimal atherosclerotic change within the abdominal aorta. The celiac and mesenteric and renal arteries are patent. The major vessels off of the aortic arch are patent. The central pulmonary arteries are patent. The heart size is normal. Minimal atherosclerotic calcification within the left anterior descending coronary artery. Additional Findings Chest: No acute abnormalities within the lungs. Organs: No acute liver pathology. Normal gallbladder. The pancreas is normal. No splenic masses. The adrenal glands are normal. : No hydronephrosis. No renal stones. The ureters are normal. The bladder is normal. Intrauterine device. GI: Mild diverticulosis without diverticulitis.No evidence of small bowel obstruction. No inflammation of the appendix. Misc.: Subcentimeter lymph nodes are below size criteria. No free air or free fluid. Bone: L5-S1 discectomy. Impression Impression: 1. No acute arterial abnormality. 2. Mild diverticulosis without diverticulitis. ASSISTANT </OBX.5.1.2></OBX.5.1> XR Chest 1 vw Narrative EXAM: XR CHEST 1 VW COMPARISON: 12/01/2022 HISTORY: SOB FINDINGS: Lungs: Normal lung volumes. No focal opacity. No pleural abnormality. Heart/Mediastinum: The cardiomediastinal silhouette is unremarkable. Bones and soft tissues: No osseous lesions. Impression No acute cardiopulmonary process. Preliminary Report Dictated by Resident: Kina Bower Spoke to Dr. Trejo who accepted patient for admission. Dx: Nausea, vomiting, abdominal pain, chest pain. Lactic acidosis. Dehydration. Possible THC hyperemesis. Kathe Zhao DO 01/16/252136 [facility] [employer] 2024-12-16 10:45:51 Form sign, faxed and confirmation received. [facility] [employer] 2024-12-09 09:46:39 Images from the original note [...] Upton NP Last refill: 11/13/2024 Rx #: [id number] Provider Review Required Bergpx4612/09/2024 06:04 AM Protocol Details This refill cannot be delegated Valid encounter within last 12 months To be filled at: [facility] [address] AT [facility] & [address] [facility] 08-07-2024 NOV 01-15-2025 [facility] 2024-12-06 10:03:48 Patient is established with psychiatry FM-FAMILY MEDICINE STAFF [facility] 2024-12-06 08:31:01 Images from the original note [...] Edouard MD Last refill: 11/03/2024 Rx #: [id number] Psychiatry: Antidepressants Nclbqt3812/06/2024 06:00 AM Protocol Details Manual Review: Verify no changes in dose in the last 3 months Valid encounter within last 12 months To be filled at: [facility] [address] AT [place] & [address] [facility] 08-07-2024 NOV 01-15-2025 [facility] 2024-11-14 08:58:38 Ezakushart message sent. T Octavia Paige MA [facility] 2024-11-13 23:44:42 Medication has been refilled by another provider Medication meloxicam 7.5 mg tablet (Order [id number]) Order Information Date and Time Ordering Department Ordering/Authorizing 11/12/2024 1:16 PM Neurosurg [facility] Alyce Garza FNP Outpatient Medication Detail Disp Refills Start End JEREMY meloxicam 7.5 mg tablet 30 tablet 1 11/12/2024 -- No Sig: Take 1 tablet by mouth in the morning. Sent to pharmacy as: meloxicam 7.5 mg tablet (MOBIC) Class: eRX Route: Oral Order: [id number] Date/Time Signed: 11/12/2024 13:16 E-Prescribing Status: Receipt confirmed by pharmacy (11/12/2024 1:16 PM CDT) Associated Diagnoses Chronic bilateral low back pain with right-sided sciatica Order Associated Providers Name NPI Ordering Provider Alyce Garza FNP [[id number]] [id number] Authorizing Provider Alyce Garza SUPERVISOR TYPE DISK QUALITY CONTROL [[id number]] [id number] Encounter Supervising Provider Miya Gaines MD [[id number]] [id number] Pharmacy [facility] [place] [address] [employer] [facility] [address] [place] [employer] BUFFER-FAMILY MIDLEVEL PROVIDER [facility] 2024-11-13 08:11:50 Forms placed in providers folder pending signature. [facility] 2024-11-13 08:06:32 Images from the original note were not included. Forms placed in nurse folder. Melissa Marroquin [facility] 2024-11-12 16:03:37 Images from the original note [...] by Paul Nash MD Provider Review Required Jokimg4811/12/2024 12:17 PM Protocol Details This refill cannot be delegated Valid encounter within last 12 months To be filled at: [facility] [address] [facility] [address] Last Refilled: 08/01/23 Recent Visits Date Type Provider Dept 08/07/24 Office Visit Miya Edouard MD [facility] 01/25/24 Office Visit Miya Edouard MD [facility] Family Medicine Showing recent visits within past 540 days with a meds authorizing provider and meeting all other requirements Future Appointments Date Type Provider Dept 01/15/25 Appointment Miya Edouard MD [facility] Showing future appointments within next 150 days with a meds authorizing provider and meeting all other requirements Octavia Paige MA [facility] 2024-11-12 15:59:51 Images from the original note [...] (08/07/2024) by Miya Edouard MD [facility] Opsbie2211/12/2024 12:06 PM Protocol Details Manual Review: Verify no changes in dose in the last 3 months Valid encounter within last 12 months To be filled at: [facility] Pharmacy [place], [place] - [address] AT [place] [address] Last Refilled: 08/07/24 Recent Visits Date Type Provider Dept 08/07/24 Office Visit Miya Edouard MD [facility] 01/25/24 Office Visit Miya Edouard MD [facility] Showing recent visits within past 540 days with a meds authorizing provider and meeting all other requirements Future Appointments Date Type Provider Dept 01/15/25 Appointment Miya Edouard MD [facility] Family Medicine Showing future appointments within next 150 days with a meds authorizing provider and meeting all other requirements Octavia Paige MA [facility] 2024-11-12 12:20:44 Notes: Routed to the provider [...] Medicine 01/25/24 Office Visit Miya Edouard MD [facility] Showing recent visits within past 540 days with a meds authorizing provider and meeting all other requirements Future Appointments Date Type Provider Dept 01/15/25 Appointment Edemekong, Peter, MD [facility] Showing future appointments within next 150 days with a meds authorizing provider and meeting all other requirements Medication MELOXICAM 7.5 mg tablet (Order [id number]) Order Information Date and Time Ordering Department Ordering/Authorizing 09/17/2024 3:08 PM [facility] Noni Garcia FNP Outpatient Medication Detail Disp Refills Start End JEREMY MELOXICAM 7.5 mg tablet 30 tablet 1 09/17/2024 -- No Sig: TAKE ONE (1) TABLET(S) BY MOUTH IN THE MORNING. Sent to pharmacy as: meloxicam 7.5 mg tablet (MOBIC) Class: eRX Order: [id number] Date/Time Signed: 09/17/2024 15:08 E-Prescribing Status: Receipt confirmed by pharmacy (09/17/2024 3:08 PM CDT) Renewals Renewal provider: Alyce Garza FNP Julisa Cantu MA [facility] 2024-11-12 12:07:50 Copied from [facility] #[id number]. Topic: Clinical - Medical Advice >> Nov 12, 2024 12:06 PM Patient Washer Operator wrote: Octavia Dawson is a 44 year old female is calling to request Dr Edouard refill meloxicam 7.5 mg tablet (MOBIC) Please advise [phone] (home) [facility] [address] & [address] [place] [id number] Jadon Choi [facility] 2024-11-05 08:56:51 Images from the original note were not included. Melissa Marroquin [facility] 2024-11-01 14:40:20 Chart notes have been signed and faxed. Confirmation report received. [facility] 2024-10-31 09:31:22 Contacted brady with andre for clarification. [facility] states they are needing the patients chart notes form 08/07/2024 signed by the provider and faxed over. Notes on providers desk pending signature. [facility] 2024-10-30 16:01:58 Attempted to call brady with Andre, no answer, LVM to call back. Orders through suture sign has been signed. We need more clarification on what needs to be done. [facility] 2024-10-30 15:01:26 Brady with Andre calling to follow up on current progress notes of Dr eastman. They did get the notes back but with no signature. They would like the re done and sent back fax:[phone] Sandra Padron [facility] 2024-10-25 14:51:40 Forwarding to nurse pool. Melissa Marroquin [facility] 2024-10-25 14:48:16 Please route to correct department Jennifer Yen MA [facility] 2024-10-25 14:26:48 Brady callahan Andre is calling stating that the OVN that were sent did not have provider signature and he is needing it signed by the provider Ashanti Antonio [facility] 2024-10-22 16:16:20 Suture sign forms have been approved and are pending providers signature. [facility] 2024-10-22 12:53:16 Brady callahan Andre is calling about power wheelchair orders sent through suture sign on 10/11/24. Same is asking that the orders be reviewed and signed as soon as possible please. Edith Bueno [facility] 2024-09-27 11:12:01 Noted Julisa Cantu MA 09/27/2024 11:12 AM Julisa Cantu MA [facility] 2024-09-27 11:07:05 Hello, The Wegovy was not approved by insurance. Per insurance, Wegovy is only covered in patients with peripheral artery disease, a prior [place], or a prior stroke. I did send a message to Ms. Dawson to go over this determination. Please let me know if there are any questions or concerns. Thank you Sabrina Roa CPhT [facility] 2024-09-24 17:06:12 Per patient, Wegovy is covered with a prior authorization sent to phone: [phone] or fax: [phone]. Prediabetes (Primary) - Complicated by Hx BMI [...] mL; Refill: 0 Miya Edouard MD, MPH, [facility] Certified Activities Director Motorman/Woman, Department of Family Medicine [facility] 09/24/2024 5:08 PM Future Appointments In 1 week Shante Pleitez OT [facility] Physical/Occupational Rehab, [facility] In 1 week Nurse, Adc Fam [facility] Adult & Geriatric Primary Care, [facility] In 2 weeks Alice Armstrong MD [facility] Psychiatry, PCP [place], Primary Care In 1 month Loki Hayes MD [facility] Neurosurgery Spine Care, [facility], [facility] [place] In 1 month Miya Edouard MD [facility] Adult & Geriatric Primary Care, [facility] In 2 months Niki Aviles MD [facility] Dermatology, [facility] 2024-09-23 13:13:35 Referral faxed, confirmation received. Jluisa Cantu MA 09/23/2024 1:28 PM [facility] 2024-09-18 09:24:52 Spoke to patient, verified name and . Let patient know we need information on the location she needs the referral sent to. Patient stated she will call her insurance to get a list and what location accepts her insurance and she will CB. Julisa Cantu MA 09/18/2024 9:28 AM Julisa Cantu MA [facility] 2024-09-17 21:48:38 Okay to convert order to aquatic therapy. T [facility] 2024-09-17 14:24:01 Per physical therapist recommend patient to do Aquatic therapy instead of Land therapy. Routing to provider to place order for Aquatic therapy. Patient was also checking status on PA for Gabapentin. Informed patient medication was approved and will contact pharmacy to dispense medication. [facility] 2024-09-17 14:04:14 Octavia Dawson is a 44 year old female Pt returning clinic call. Please advise. Laurence Conway [facility] 2024-09-17 13:36:52 Attempt to return patient phone call, no answer, LVM to call back. [facility] 2024-09-17 11:23:54 Octavia Dawson is a 44 year old female and the pt is returning call from [place]. Please contact and advise. Sandy Francisco [facility] 2024-09-17 11:18:22 Attempted to call patient, no answer, LVM to call back. [facility] 2024-09-17 10:43:10 Pt said that her physical [...] the aquatic therapy and would like in [place] if possible. Pt is requesting within [facility]. NPI# unavailable PH# unavailable FAX unavailable Diagnosis code: unavailable Appt date: [facility] 10[facility]45 Pt is following up on the PA for the gabapentin 100 mg capsule. [facility] [place] [facility] 16:22:49 PA submitted, waiting for determination. Critical access hospital 2024-08-07 14:20:51 Images from the original note were not included. Yuli Maurice [facility] 2024-05-20 14:05:20 Images from the original note [...] Edouard MD Last refill: 02/21/2024 Rx #: [id number] Gastroenterology: Antiulcer - Proton Pump Inhibitors Kxognv6705/19/2024 06:04 AM Protocol Details Valid encounter within last 12 months To be filled at: [facility] Pharm[facility] [address] AT [place] & [address] Last Refilled: 02/21/2024 Recent Visits Date Type Provider Dept 01/25/24 Office Visit Miya Edouard MD [facility] 01/04/23 Office Visit Miya Edouard MD [facility] Family Medicine Showing recent visits within past 540 days with a meds authorizing provider and meeting all other requirements Future Appointments Date Type Provider Dept 05/28/24 Appointment Miya Edouard MD [facility] Family Medicine Showing future appointments within next 150 days with a meds authorizing provider and meeting all other requirements ASSISTANT Octavia Paige MA [facility] 2024-05-09 09:04:06 Images from the original note were not included. Medical records received [facility] placed in Dr. Edouard folder for review. EEN Maurice [facility] 2024-04-22 14:46:16 Called patient, no answer. Left message with call back number. EEN Velazquez LVN [facility] 2024-04-22 11:46:28 Called patient, no answer. Left message with call back number. [facility] 2024-04-22 11:22:36 Called patient to let her know that CT neck came back clear and she does not need to see Dr. Young . If patient calls back please let her know she can cancel appt if she would like. Marybeth Jiménez PA-C [facility] Department of Otolaryngology [phone] ASSISTANT PA-PHYSICIAN VICE PRESIDENT OF CONSULTING SERVICES MIDLEVEL PROVIDER [facility] 2024-03-05 11:29:55 My apologies. Message forwarded to ordering provider: Olamide Kramer MD. *Patient would like ultrasound results* ASSISTANT Olesya Ospina RN [facility] 2024-03-05 11:13:26 I do not see that I have seen this patient. I did not order any imaging. MCS ASSISTANT OG-OBSTETRICS & GYNECOLOGY STAFF [facility] 2024-03-05 11:06:12 Patient would like to discuss Ultrasound results, not CT Scan results. [employer]- Can someone please reach out to Octavia Dawson to discuss ultrasound results? This call got routed the wrong way. Thank you, Olesya Ospina, RN [facility] 2024-03-04 16:53:[address] scan results. Please F/u [facility] Guanaco Noonan [facility] 2024-03-04 09:15:00 US reviewed and noted, showed 3.9 cm complex left, likely hemorrhagic cyst. Follow-up ultrasound in one to two cycles could be performed. Small submucosal fibroid. IUD with appropriate placement in the endometrial cavity. Need for further work-up. Consult/Referral completed to Nephrology and Toshia/Lead Presser [facility] 2024-03-01 09:08:41 Abundio Postural orthostatic tachycardia syndrome (POTS)/ Lumbar radiculopathy, chronic/Foraminal stenosis of lumbar region/ Arthritis, multiple joint involvement/Degenerative disc disease at L5-S1 level - ID PLACARD/LICENSE PLATE [facility] 2024-02-29 11:18:29 The prior authorization for Tin has been submitted through [facility]. An update will be provided once a determination is made. [facility] [place]: [id number] Thank you, Jeni Abel [facility] Jeni Serna [facility] 2024-02-27 16:54:31 Name and verified, pt has an ultrasound for an ovarian cyst per Dr. Edouard, advised pt once his office reviews the results she will know if she needs to be seen in our office. Appt made for 03/12, if results do not need follow up pt will call to cancel. Betty Paige RN 02/27/2024 4:56 PM ASSISTANT Betty Paige RN [facility] 2024-02-27 16:47:55 Pt calling back Please advise Thank you EEN Ramos [facility] 2024-02-27 16:41:24 Attempted to reach pt, no answer, left a vm Betty Paige RN 02/27/2024 4:41 PM [facility] 2024-02-27 14:55:43 The patient has a STAT referral for an adnexal cyst and Have an ultrasound on March 04. The patient would like to schedule an appointment to discuss the results after the ultrasound, ensuring that the results are available prior to the appointment. The earliest available appointment is on March [address] Meraz. EEN Srinivasan [facility] 2024-02-23 11:00:00 Images from the original note were not included. Venipuncture collection performed by clean technique on the left anticubitus. Total of 1 attempts were made. Slight pressure and a bandage/dressing were applied to the site(s). The patient experienced no complications. The following specimens were processed according to instructions and sent to [facility] laboratories per lab order on 02/23/2024 : LT BLUE SST 1 RED LAV 1 PPT DK GREEN (LiHep) 2 DK GREEN (SodH) HENDRIX DK BLUE (K2) DK BLUE (S) ACD Blood Culture NIPT/NTD EEN Hunt [facility] 2024-02-23 11:00:00 Addended by: MIYA EDOUARD on: 02/24/2024 07:55 PM Modules accepted: Orders [facility] 2024-02-21 16:43:36 Consult/Referral Lymphadenopathy, cervical/Tenderness of lymph node - Consult/Referral ENT [facility] 2024-02-14 16:47:17 Appt dilcia for 02/23/24 Belen Guerrero [facility] 2024-02-14 15:42:57 Octavia Dawson is a 43 year old female Pt is requesting call back in ref to scheduling sooner appt for skin condition,next available appt is June 2024 Pt can be reached at [phone] Thank you Verenice Pitts [facility] 2024-02-12 16:20:00 The paranasal sinuses and drainage pathways are clear. [facility] 2024-02-12 09:09:47 Hidradenitis suppurativa [L73.2] - Primary Hidradinitis Supparitiva Referral previously placed 2021, referral has been renewed. Pt aware and referral line number given. Recent Visits Date Type Provider Dept 01/25/24 Office Visit Miya Edouard MD [facility] Family Medicine 01/04/23 Office Visit Miya Edouard MD [facility] Family Medicine 10/04/22 Office Visit Miya Edouard MD [facility] Family Medicine Showing recent visits within past 540 days with a meds authorizing provider and meeting all other requirements Future Appointments Date Type Provider Dept 04/26/24 Appointment Miya Edouard MD [facility] Showing future appointments within next 150 days with a meds authorizing provider and meeting all other requirements [facility] 2024-02-09 12:45:17 Rerouting message to nurse pool. Melissa Marroquin [facility] 2024-02-09 06:52:44 Octavia Dawson is a 43 year old female Pt is requesting a referral to dermatology for HS condition, had requested x 2 times via Rheumatology, but no response. Thanks Winnie Catalan [facility] 2024-02-06 09:44:22 I did not see any mention of derm either. I will reach out to the pt.about the request. Thank you. Chrissie Akins LVN [facility] 2024-02-02 16:51:45 Meds increased, rx. Sent to pharmacy Please follow up with PCP for continued care and management. [facility] 2024-02-01 16:24:47 I apologize I don't recall discussing a dermatology referral and there is no mention of this in my chart note. Please ask patient for the reason she would like a referral to dermatology. DONTE-PHYSICIAN VICE PRESIDENT OF CONSULTING SERVICES MIDLEVEL PROVIDER [facility] 2024-02-01 16:17:05 Norma Trejo3 hours ago (12:37 PM) KW Octavia Dawson is a 43 year old female Pt calling stating she needs a referral to dermatology. Pt states Dr. Mendez stated she was going to place one per her last visit with her. Original encounter 01/29 closed but no referral submitted. Pt needing this as soon as possible. Please call [phone] (home) Note This is a message from the pt. Above,would you like me to put in a referral for Derm.? Please let me know its no problem. Thank you. Chrissie Akins LVN [facility] 2024-02-01 12:35:26 Octavia Dawson is a 43 year old female Pt calling stating she needs a referral to dermatology. Pt states Dr. eMndez stated she was going to place one per her last visit with her. Original encounter 01/29 closed but no referral submitted. Pt needing this as soon as possible. Please call [phone] (home) Norma Trejo [facility] 2024-02-01 10:00:00 Images from the original note were not included. Venipuncture collection performed by clean technique on the left anticubitus. Total of 1 attempts were made. Slight pressure and a bandage/dressing were applied to the site(s). The patient experienced no complications. The following specimens were processed according to instructions and sent to [facility] laboratories per lab order on 02/01/2024: LT BLUE SST 2 RED LAV 2 PPT DK GREEN (LiHep) DK GREEN (SodH) HENDRIX DK BLUE (K2) DK BLUE (S) ACD Blood Culture NIPT/NTD [facility] 2024-01-30 16:24:05 Consult/Referral Spondylosis of lumbar region without myelopathy or radiculopathy S/P lumbar discectomy - Consult/Referral Neurosurgery: Spine [facility] 2024-01-30 15:52:19 Images from the original note were not included. Requested Renewals vitamin C with jacob hips (VITAMIN C) 1,000 mg tablet Sig: Take 1 tablet by mouth in the morning. Disp: 30 tablet Refills: 1 Start: 01/30/2024 Class: eRX Non-formulary For: URI with cough and congestion Last ordered: 4 years ago (01/01/2020) by Miya Edouard MD Vitamins Aumsay0601/30/2024 03:00 PM Protocol Details Valid encounter within last 12 months To be filled at: [facility] [address] [place] [facility] AT [address] [place] 01-25-2024 Chichi Holly MA [facility] 2024-01-30 15:51:18 Images from the original note were not included. Requested Renewals Melatonin 5 mg Cap Sig: Take 1 capsule by mouth at bedtime as needed for Insomnia. Disp: 30 capsule Refills: 5 Start: 01/30/2024 Class: eRX Non-formulary For: Primary insomnia Last ordered: 1 year ago (01/04/2023) by Miya Edouard MD Over the Counter: OTC Zxagen5101/30/2024 02:58 PM Protocol Details Valid encounter within last 12 months To be filled at[facility] [address] [place] 01-25-2024 NOV 04-26-2023 Chichi Holly MA [facility] 2024-01-30 15:09:30 Octavia Dawson is a 43 year old female Pt states she needs to see a client retention specialist and states there was a referral sent last year. Did not see referral in chart and is requesting that a referral be sent for neurosurgery. Please advise. Lisbeth Cabrera Richard [facility] 2024-01-30 15:06:48 Octavia Dawson is a 43 year old female Pt states that a referral for dermatology was supposed to be placed and is not in her chart. Please advise. Lisbeth Cabrera Richard [facility] 2024-01-29 12:19:54 Attempted to call patient, no answer, Left brief VM. Referral has been faxed. Chichi Holly MA [facility] 2024-01-29 11:56:16 Consult/Referral Routine eye exam - CONSULT/REFERRAL OPHTHALMOLOGY [facility] 2024-01-26 09:25:25 Patient is requesting a referral to: Dept: Ophthalmology Reason for referral: Eye Exam for Eye Glasses Duration of problem: Ongoing Internal / External referral: External Name of provider / location patient requesting: [facility]/[address] [place] [address] Phone number: [phone] Fax number: N/A Appt already scheduled?: No If yes, date of appt.: N/A Akhil Benitez [facility] 2024-01-25 10:30:00 Images from the original note were not included. Venipuncture collection performed by clean technique on the left anticubitus. Total of 1 attempts were made. Slight pressure and a bandage/dressing were applied to the site(s). The patient experienced no complications. The following specimens were processed according to instructions and sent to [facility] laboratories per lab order on 01/25/2024 : LT BLUE SST 5 RED LAV PPT DK GREEN (LiHep) DK GREEN (SodH) HENDRIX DK BLUE (K2) DK BLUE (S) ACD Blood Culture NIPT/NTD Patient has been identified by and was provided with cup, antiseptic towelette, and clean catch instructions. 1 urine specimen(s) sent. Unpreserved Urine Culture Aptima tube 1 Other urine [facility] 2024-01-25 09:00:00 Vit D level 15. Start taking 50,000IU vitamin D3 qWeek, with Calcium 500mg daily. [facility] 2024-01-25 09:00:00 Addended by: MIYA EDOUARD on: 02/08/2024 12:30 PM Modules accepted: Orders [facility] 2024-01-11 11:19:46 Images from the original note [...] Last ordered: 2 weeks ago (12/22/2023) by Myia Edouard MD Last refill: 12/22/2023 Rx #: [id number] Cardiovascular: Beta Blockers Npmjwu1101/11/2024 06:12 AM Protocol Details Valid encounter within last 12 months Heart rate within normal limits and completed in the last 12 months To be filled at: [facility] Pharmacy [place], [place] - [address] [place] [address] Drive [address] Last Refilled: 12/22/2023 Recent Visits Date Type Provider Dept 01/04/23 Office Visit Miya Edouard MD [facility] 10/04/22 Office Visit Miya Edouard MD [facility] Family Medicine Showing recent visits within past 540 days with a meds authorizing provider and meeting all other requirements Future Appointments Date Type Provider Dept 01/25/24 Appointment Miya Edouard MD [facility] Family Medicine Showing future appointments within next 150 days with a meds authorizing provider and meeting all other requirements Octavia Paige MA [facility] 2024-01-10 11:15:00 Images from the original note were not included. Venipuncture collection performed by clean technique on the right anticubitus. Total of 1 attempts were made. Slight pressure and a bandage/dressing were applied to the site(s). The patient experienced no complications. The following specimens were processed according to instructions and sent to [facility] laboratories per lab order on [...] 1 Urine Culture Aptima tube Other urine [facility] 2023-12-29 11:24:53 Images from the original note [...] Edouard MD Last refill: 11/24/2023 Rx #: [id number] Cardiovascular: Beta Blockers Gsracx3412/29/2023 10:58 AM Protocol Details Valid encounter within last 12 months Heart rate within normal limits and completed in the last 12 months To be filled at: [address] AT [address] Last Refilled: 12/22/2023 Recent Visits Date Type Provider Dept 01/04/23 Office Visit Miya Edouard MD [facility] Family Medicine 10/04/22 Office Visit Miya Edouard MD [facility] Family Medicine Showing recent visits within past 540 days with a meds authorizing provider and meeting all other requirements Future Appointments Date Type Provider Dept 01/03/24 Appointment Miya Edouard MD [facility] Family Medicine Showing future appointments within next 150 days with a meds authorizing provider and meeting all other requirements Octavia Paige MA [facility] 2023-12-22 08:36:54 Images from the original note [...] Edouard MD Last refill: 11/24/2023 Rx #: [id number] Cardiovascular: Beta Blockers Ahbmvj8512/22/2023 06:13 AM Protocol Details Valid encounter within last 12 months Heart rate within normal limits and completed in the last 12 months To be filled at: [address] [place] 01-05-2024 01-03-2024 Chichi Holly MA [facility] 2023-12-04 10:36:44 Images from the original note [...] Edouard MD Last refill: 10/08/2023 Rx #: [id number] Endocrinology: Hypothyroid Agents Mkyzua3412/03/2023 11:47 AM Protocol Details Manual Review: ENT providers forward refill request to PCP. Valid encounter within last 12 months TSH in normal range and within 360 days To be filled at: [address] [place] 01-05-2024 01-24-2024 Chichi Holly MA [facility] 2023-11-24 11:04:51 Images from the original note [...] Edouard MD Last refill: 10/08/2023 Rx #: [id number] Endocrinology: Hypothyroid Agents Qdrovt7511/24/2023 09:11 AM Protocol Details Manual Review: ENT [...] Edouard MD Last refill: 10/16/2023 Rx #: [id number] Cardiovascular: Beta Blockers Bkmbqa7211/24/2023 09:11 AM Protocol Details Valid encounter within last 12 months Heart rate within normal limits and completed in the last 12 months To be filled at: [address] Last Refilled: 10/16/23 Recent Visits Date Type Provider Dept 01/04/23 Office Visit Miya Edouard MD [facility] 10/04/22 Office Visit Miya Edouard MD [facility] 06/03/22 Office Visit Miya Edouard MD [facility] Showing recent visits within past 540 days with a meds authorizing provider and meeting all other requirements Future Appointments Date Type Provider Dept 01/24/24 Appointment Miya Edouard MD [facility] Showing future appointments within next 150 days with a meds authorizing provider and meeting all other requirements Octavia Paige MA [facility] 2023-09-19 09:02:59 Images from the original note [...] Edouard MD Last refill: 09/18/2023 Rx #: [id number] Analgesics: NSAIDS Vqodac5509/18/2023 05:26 PM Protocol Details Valid encounter within [...] Edouard MD Last refill: 09/18/2023 Rx #: [id number] Neuropathic Pain Ztauvd0109/18/2023 05:26 PM Protocol Details Manual Review: Verify no changes in dose in the last 3 months Valid encounter within last 12 months To be filled at: [facility] [address] [facility] [address] 01-04-2023 NOV 10-31-2023 Chichi Holly MA [facility] 2023-09-06 14:16:50 Images from the original note [...] Edouard MD Last refill: 07/31/2023 Rx #: [id number] Endocrinology: Hypothyroid Agents Lcumoo7809/06/2023 06:10 AM Protocol Details Manual Review: ENT providers forward refill request to PCP. Valid encounter within last 12 months TSH in normal range and within 360 days To be filled at: [address] Recent Labs 04/05/23 1114 TSH 1.07 Last Refilled: 07/31/23 Recent Visits Date Type Provider Dept 01/04/23 Office Visit Miya Edouard MD [facility] Family Medicine 10/04/22 Office Visit Miya Edouard MD [facility] Medicine 06/03/22 Office Visit Miya Edouard MD [facility] Family Medicine Showing recent visits within past 540 days with a meds authorizing provider and meeting all other requirements Future Appointments Date Type Provider Dept 10/31/23 Appointment Miya Edouard MD [facility] Family Medicine Showing future appointments within next 150 days with a meds authorizing provider and meeting all other requirements Octavia Paige MA [facility] 2023-07-31 16:49:16 Images from the original note [...] Edouard MD Last refill: 06/29/2023 Rx #: [id number] Neuropathic Pain Igoslj9707/31/2023 06:07 AM Protocol Details Manual Review: Verify [...] Edouard MD Last refill: 06/29/2023 Rx #: [id number] Cardiovascular: Angiotensin Receptor Blockers Cromhw6107/31/2023 06:07 AM Protocol Details Valid encounter within last 12 months K in normal range and within 360 days Cr in normal range and within 360 days To be filled at: [facility] Pharmacy [address] Last Refilled: 06/29/23 Recent Visits Date Type Provider Dept 01/04/23 Office Visit Miya Edouard MD [facility] 10/04/22 Office Visit Miya Edouard MD [facility] 06/03/22 Office Visit Miya Edouard MD [facility] Family Medicine Showing recent visits within past 540 days with a meds authorizing provider and meeting all other requirements Future Appointments Date Type Provider Dept 10/31/23 Appointment Miya Edouard MD [facility] Family Medicine Showing future appointments within next 150 days with a meds authorizing provider and meeting all other requirements Octavia Paige MA [facility] 2023-07-31 16:47:48 Images from the original note [...] VEE Miguel Last refill: 06/29/2023 Rx #: [id number] Provider Review Required Bpolpc9507/31/2023 08:24 AM Protocol Details This refill cannot be delegated Valid encounter within last 12 months To be filled at: [facility] Pharmacy [address] AT [address] Last Refilled: 06/29/23 Recent Visits Date Type Provider Dept 01/04/23 Office Visit Miya Edouard MD [facility] 10/04/22 Office Visit Miya Edouard MD [facility] 06/03/22 Office Visit Miya Edouard MD [facility] Family Medicine Showing recent visits within past 540 days with a meds authorizing provider and meeting all other requirements Future Appointments Date Type Provider Dept 10/31/23 Appointment Miya Edouard MD [facility] Showing future appointments within next 150 days with a meds authorizing provider and meeting all other requirements Octavia Pagie MA [facility] 2023-06-29 10:43:50 Images from the original note [...] Edouard MD Last refill: 05/30/2023 Rx #: [id number] Provider Review Required Fcorra1106/29/2023 06:12 AM Protocol Details This refill cannot be delegated Valid encounter within last 12 months To be filled at: [facility] Pharmacy [address] AT [address] Last Refilled: 05/30/2023 Recent Visits Date Type Provider Dept 01/04/23 Office Visit Miya Edouard MD [facility] Family [facility] 10/04/22 Office Visit Miya Edouard MD [facility] 06/03/22 Office Visit Miya Edouard MD [facility] 01/27/22 Office Visit Miya Edouard MD [facility] Family Medicine Showing recent visits within past 540 days with a meds authorizing provider and meeting all other requirements Future Appointments Date Type Provider Dept 07/12/23 Appointment Miya Edouard MD [facility] Family Medicine Showing future appointments within next 150 days with a meds authorizing provider and meeting all other requirements Octavia Paige MA [facility] 2023-06-19 08:12:15 Images from the original note [...] Edouard MD Last refill: 06/04/2023 Rx #: [id number] Analgesics: NSAIDS Zrfgfr6906/17/2023 11:26 AM Protocol Details Valid encounter within last 12 months Cr in normal range and within 360 days To be filled at: [place], [place] - [address] [place], [place] [id number] AT [place] & [address] [facility] 01-04-2023 NOV 07-12-2023 ASSISTANT Chichi Holly MA [facility] 2023-05-30 08:19:06 Routing to correct pool, Please [...] Medicine 06/03/22 Office Visit Miya Edouard MD [facility] Family Medicine Showing recent visits within past 365 days and meeting all other requirements Future Appointments Date Type Provider Dept 07/12/23 Appointment Miya Edouard MD [facility] Family Medicine Showing future appointments within next 365 days and meeting all other requirements [facility] [place], [place] - [address] [place] [address] AT [facility] & [facility] [address] [facility] [address] Carmen Alba MA 05/30/2023 8:19 AM ASSISTANT PN-PSYCHIATRY [facility] 2023-05-01 10:43:57 Images from the original note were not included. Last OV: 01/04/2023 with Miya Edouard Last Refills prescribed by Miya Edouard Last Labs Pertaining to Med: N/A Future Appt: Future Appointments Provider Department Dept Phone 07/12/2023 3:00 PM Miya Edouard MD [facility] Adult & Geriatric Primary [facility], [place] [phone] 08/22/2023 3:30 PM Yoli Hi AGPCNP [facility] Endocrinology, [place] DB [phone] 10/12/2023 1:00 PM Raffi Rodriguez DO [facility] Rheumatology, [facility] [phone] Routed to provider for review. Unable to [...] Edouard MD Last refill: 03/30/2023 Rx #: [id number] Provider Review Required Cfkths5404/30/2023 08:09 AM Protocol Details This refill cannot be delegated Valid encounter within last 12 months [facility] George Miranda RN [facility] 2023-04-05 11:30:00 Images from the original note were not included. Venipuncture collection performed by clean technique on the left anticubitus. Total of 1 attempts were made. Slight pressure and a bandage/dressing were applied to the site(s). The patient experienced no complications. The following specimens were processed according to instructions and sent to [facility] laboratories per lab order on 04/05/2023 : LT BLUE SST 1 RED LAV PPT DK GREEN (LiHep) DK GREEN (SodH) HENDRIX DK BLUE (K2) DK BLUE (S) ACD Blood Culture NIPT/NTD [facility] 2022-12-29 16:22:11 Formatting of this n ote might be different from the original. Received notification from [facility], placed in provider folder to be view. Chichi Holly MA [facility] 2022-12-29 14:11:30 Formatting of this n ote might be different from the original. Rx sent, let patient know, and to follow-up as scheduled. [facility] 2022-12-03 11:18:47 Formatting of this n ote might be different from the original. 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 Pt to ER via EMS with c/o chest pain, SOB, headache, N/V, chills, fatigue that started this morning. 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 Pt denies CP on arrival to ED, c/o headache 05/27. Cathi Jaeger RN [facility] 2022-11-28 12:30:12 Formatting of this n ote might be different from the original. Spoke with patient, verbalized she would like an alternative to mounjaro. Informed patient that the [facility] insurance will have a weight loss exclusion starting Sept 1 and she would no longer be covered for weight loss medication. I informed her I would also still send this to Dr. E and see what his thought were. Jennifer Oswald RN [facility] 2022-11-28 10:58:46 Formatting of this n ote might be different from the original. Pt calling want to know if there alternative med to mounjaro Dafne Ortez [facility] 2022-11-18 08:24:28 Formatting of this n ote might be different from the original. Received notification from [employer]: Coverage is provided for type 2 diabetes mellitus. Coverage cannot be authorized at this time. Appeal paperwork not sent as there is not a type 2 diabetes diagnosis and the A1C has not shown diabetes while under the provider care. Jennifer Oswald RN [facility] 2022-11-17 17:18:57 Formatting of this n ote might be different from the original. OCTAVIA DAWSON Jackson: [id number] - PA - Rx #: [id number] help? Call us at Status Sent to [employer] Mounjaro 5MG/0.5ML pen-injectors Form MAD Incubator Electronic PA Form (2017 [facility]) Original Claim Info 75 PA initiated via CoverMyMeds. Will need to update patient as time permits. Shanelle Lombardo LVN 11/17/2022 5:19 PM Shanelle Lombardo LVN [facility] 2022-11-17 14:54:05 Formatting of this n ote might be different from the original. No answer; left message on voicemail that rx for Monjauro was sent in as requested and reminder to keep appt scheduled for 01/04/2023 @ 9:40am. Advised to call with any questions or send message via [employer]. George Miranda RN [facility] 2022-11-17 14:03:49 Formatting of this n ote might be different from the original. Images from the original note were not included. Dafne Ortez [facility] 2022-11-17 13:09:12 Formatting of this n ote might be different from the original. Patient is calling for status of prior authorization. Please call. Tatianna Goodson [facility] 2022-11-16 14:26:11 Formatting of this n ote might be different from the original. Rx sent, let patient know, and to follow-up as scheduled. [facility] 2022-11-14 16:25:16 Formatting of this n ote might be different from the original. Pt called and is checking on prior authorization. She is completely out . Pt would like to have the prior auth stating a year for refills. Please advise. Dakota Li [facility] 2022-11-13 14:55:24 Formatting of this n ote might be different from the original. HAI 6 Routed to provider for refill approval of non-delegated medication. EKATERINA MONTANO RN 11/13/2022 2:55 PM Ekaterina Montano RN [facility]"
[2025-01-18] MEDS ORDERED: NA CHLORIDE 0.9% 1,000 ML ONE (11:14)
[2025-01-18] MEDS ORDERED: ONDANSETRON 4 MG/2 ML VIAL ONE (11:14)
[2025-01-18] MEDS ORDERED: HYDROMORPHONE HCL 1 MG/ML INJ ONE (11:14)
[2025-01-18 11:21] LABS: Absolute Lymphocytes (CBC) 1.8 K/uL (0.7-4.9); Hematocrit 41.4 % (36.0-45.0); Hemoglobin 14.1 g/dL (12.0-15.0); MCH 31.2 pg (27.0-35.0); MCHC 34.0 g/dL (32.0-36.0); MCV 91.6 fL (80-100); MPV 7.9 fL (7.6-11.3); Nucleated RBC Absolute Count 0.0 (0-0); Nucleated Red Blood Cells % 0.0 % (0-0); RBC Red Blood Cell Count 4.52 M/uL (3.86-4.86); White Blood Count 9.20 thou/uL (4.3-10.9)
[2025-01-18 11:44] LABS: ALT/SGPT 26.0 U/L (13-56); AST/SGOT 15.0 U/L (15-37); Albumin 4.0 g/dL (3.4-5.0); Albumin/Globulin Ratio 1.1 (1.1-1.8); Alkaline Phosphatase 45.0 U/L (45-117); Anion Gap 10.4 mEq/L (5.0-15.0); BUN Blood Urea Nitrogen 9.0 mg/dL (7-18); Globulin 3.7 g/dL (2.3-3.5); Glucose Level 140.0 mg/dL (74-106); NT PRO-BNP 305.0 pg/mL (<125); Potassium 3.4 mEq/L (3.5-5.1); Troponin High Sensitivity 5.1 pg/mL (<58.9)
[2025-01-18] MEDS ORDERED: LORazepam 2 MG/ML VIAL ONE (11:58)
--- NOTE | 2025-01-18 12:06 | ER ---
Nurse's Notes [facility] Name: Octavia Lo Age: 44 yrs Sex: Female : 1980 Arrival Date: 01/18/2025 Time: 10:38 Bed 18 Private MD: Diagnosis: Abdominal pain, Generalized Presentation: 01/18 10:45 Chief complaint: EMS states: CP, ABD PAIN CENTER, DIAPHORETIC, PALE AND COOL.. PAIN db 10. EMS GAVE 324 MG ASA, NITRO 0.4 MG X 2, DROPERIDOL 2.5 MG, 4MG ZOFRAN, AND 100 MCG FENTANYL. PT STILL COOL DIAPHORETIC PAIN 11/24. OUT OF BP MEDICATIONS, LOSARTAN AND METOPROLOL, X 1 MONTH. Coronavirus screen: Client denies travel out of the [place] in the last 14 days. At this time, the client does not indicate any symptoms associated with coronavirus-19. Ebola Screen: Patient negative for fever greater than or equal to 101.5 degrees Fahrenheit, and additional compatible Ebola Virus Disease symptoms Patient denies exposure to infectious person. Patient denies travel to an Ebola-affected area in the 21 days before illness onset. No symptoms or risks identified at this time. Initial Sepsis Screen: Does the patient meet any 2 criteria? No. Patient's initial sepsis screen is negative. Does the patient have a suspected source of infection? No. Patient's initial sepsis screen is negative. Risk Assessment: Do you want to hurt yourself or someone else? Patient reports no desire to harm self or others. Onset of symptoms was January 18, 2025. Care prior to arrival: Medication(s) given: ASA, 81 mg, x 4, Nitroglycerin, 0.4 mg SL x 2, zofran 4 mg, FENTANYL 100 MCG, DROPERIDOL 2.5. 10:45 Method Of Arrival: EMS: [facility] db 10:45 Acuity: ONUR 2 db 10:45 Care prior to arrival: IV initiated. 20 GA, in the right antecubital area, Glucose db check: 137. Triage Assessment: 10:55 General: Appears distressed, uncomfortable, Behavior is cooperative. Pain: Complains of db pain in epigastric area. Neuro: Level of Consciousness is awake, alert, obeys commands, Oriented to person, place, time, situation. Respiratory: Airway is patent Respiratory effort is even, unlabored, Respiratory pattern is regular, symmetrical. GI: Reports upper abdominal pain, nausea. Derm: Skin is intact, Skin is clammy, diaphoretic, Skin is pale. Historical: - Allergies: 10:55 Phenergan; db 10:55 Codeine; db 10:55 Percocet; db 10:55 Reglan; db - PMHx: 10:55 Hypothyroidism; Hypertension; blood clot right side of head; blood clot right side of db head; Anxiety; Pancreatitis; Kidney stones; - PSHx: 10:55 spinal sx 07/30/22; db - Immunization history:: Adult Immunizations unknown. - Infectious Disease History:: Denies. - Social history:: Smoking status: unknown. Screenin:[facility] ED Fall Risk Assessment (Adult) History of falling in the last 3 months, db including since admission No falls in past 3 months (0 pts) Confusion or Disorientation No (0 pts) Intoxicated or Sedated No (0 pts) Impaired Gait No (0 pts) Mobility Assist Device Used No (0 pt) Altered Elimination No (0 pt) Score/Fall Risk Level 0 - 2 = Low Risk Oriented to surroundings, Maintained a safe environment. Abuse screen: Denies threats or abuse. Denies injuries from another. Nutritional screening: No deficits noted. Tuberculosis screening: No symptoms or risk factors identified. Assessment: 11:30 Reassessment: Patient appears in no apparent distress at this time. Patient and/or db family updated on plan of care and expected duration. Pain level reassessed. Patient is alert, oriented x 3, equal unlabored respirations, skin warm/dry/pink. Reassessment: FAMILY IS AT BEDSIDE. General: Appears in no apparent distress. Neuro: Level of Consciousness is awake, alert, obeys commands, Oriented to person, place, time, situation. 12:48 Reassessment: Patient appears in no apparent distress at this time. Patient and/or db family updated on plan of care and expected duration. Pain level reassessed. Patient is alert, oriented x 3, equal unlabored respirations, skin warm/dry/pink. Patient states feeling better. Patient states symptoms have improved. Vital Signs: 10:45 BP 179 / 89; Pulse 49; Resp 24; Temp 98.6(O); Pulse Ox 97% on R/A; Weight 90.72 kg; db Height 5 ft. 5 in. ; Pain 8/10; 11:30 BP 138 / 86; Pulse 65; Resp 14; Pulse Ox 95% on R/A; db 12:45 BP 136 / 75; Pulse 95; Resp 16; Pulse Ox 100% on R/A; db 10:45 Body Mass Index 33.28 (90.72 kg, 165.1 cm) db 10:45 Pain Scale: Adult db ED Course: 10:40 Patient arrived in ED. eb 10:41 Alejandra Scott MD is Attending Physician. sp3 10:46 Yaz Leone, RN is Primary Nurse. db 10:55 Triage completed. db 10:55 Arm band placed on Patient placed in an exam room. db 11:00 Maintain EMS IV. Dressing intact. Good blood return noted. Site clean \T\ dry. Gauge \T\ db site: 20 G RAC. Flushed with 10 mL NS. 12:45 Patient has correct armband on for positive identification. Side rails up X 1. Provided db Education on: ADMISSION. Client placed on continuous cardiac and pulse oximetry monitoring. NIBP monitoring applied. cardiac monitor on. Pulse ox on. NIBP on. Warm blanket given. Pillow given. 12:45 No provider procedures requiring assistance completed. IV discontinued, intact, db bleeding controlled, No redness/swelling at site. Administered Medications: 11:10 Drug: Ondansetron IVP 4 mg IVP once; over 2 minutes Route: IVP; Site: right antecubital;db 12:07 Follow up: Response: No adverse reaction db 11:21 Drug: NS 0.9% IV 1000 ml IV at 1 bolus Per protocol; to be given as a bolus over 60 db minutes Route: IV; Rate: 1 bolus; Site: right antecubital; 12:07 Follow up: Response: No adverse reaction; IV Status: Completed infusion; IV Intake: db 1000ml 11:21 Drug: HYDROmorphone IVP 1 mg IVP once Route: IVP; Site: right antecubital; db 12:06 Follow up: Response: No adverse reaction; Pain is decreased db 12:00 Drug: Ativan IVP 1 mg IVP once Route: IVP; Site: right antecubital; db 12:50 Follow up: Response: No adverse reaction db Medication: 12:45 VIS not applicable for this client. db Intake: 12:07 IV: 1000ml; Total: 1000ml. db Outcome: 12:06 Discharge ordered by spPhyllis 12:45 Discharged to home ambulatory, with family, db 12:45 Condition: stable 12:45 Discharge instructions given to patient, Instructed on discharge instructions, follow up and referral plans. 12:50 Patient left the ED. db Signatures: Desiree Ward Setul, MD MD sp3 Yaz Leone RN RN db Corrections: (The following items were deleted from the chart) 10:56 10:45 Chief complaint: EMS states: CP, ABD PAIN CENTER, DIAPHORETIC, PALE AND COOL.. db PAIN 10. EMS GAVE 324 MG ASA, NITRO 0.4 MG X 2, DROPERIDOL 2.5 MG, 4MG ZOFRAN, AND 100 MCG FENTANYL. PT STILL COOL DIAPHORETIC PAIN 8 db
--- NOTE | 2025-01-18 12:06 | EDPHYS ---
Physician Documentation [facility] Name: Octavia Lo Age: 44 yrs Sex: Female : 1980 Arrival Date: 01/18/2025 Time: 10:38 Bed 18 Private MD: ED Physician Alejandra Scott HPI: 01/18 10:59 This 44 yrs old Female presents to ER via EMS with complaints of Abdominal Pain, Chest sp3 Pain. 10:59 44-year-old female with history of hypertension, hypothyroidism, recent viral sp3 gastroenteritis diagnosis by midlevel provider here at [facility] on 01/13/2025, now presents to the ED for recurrent abdominal pain. Patient was in [place] yesterday and checked into the ED where they did a full CT aorta dissection protocol study which was negative. Blood work was also negative and they discharged her without any other change in medication. Patient presents today via EMS for abdominal pain, vomiting, shivering/rigors. 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 Historical: - Allergies: 10:55 Phenergan; db 10:55 Codeine; db 10:55 Percocet; db 10:55 Reglan; db - PMHx: 10:55 Hypothyroidism; Hypertension; blood clot right side of head; blood clot right side of db head; Anxiety; Pancreatitis; Kidney stones; - PSHx: 10:55 spinal sx 07/30/22; db - Immunization history:: Adult Immunizations unknown. - Infectious Disease History:: Denies. - Social history:: Smoking status: unknown. ROS: 11:01 Constitutional: Negative for fever, chills, and weight loss, Eyes: Negative for injury, sp3 pain, redness, and discharge, ENT: Negative for injury, pain, and discharge, Neck: Negative for injury, pain, and swelling, Respiratory: Negative for shortness of breath, cough, wheezing, and pleuritic chest pain, Back: Negative for injury and pain, : Negative for injury, bleeding, discharge, and swelling, MS/Extremity: Negative for injury and deformity, Skin: Negative for injury, rash, and discoloration, Neuro: Negative for headache, weakness, numbness, tingling, and seizure, Psych: Negative for depression, anxiety, suicide ideation, homicidal ideation, and hallucinations, Allergy/Immunology: Negative for hives, rash, and allergies, Endocrine: Negative for neck swelling, polydipsia, polyuria, polyphagia, and marked weight changes, Hematologic/Lymphatic: Negative for swollen nodes, abnormal bleeding, and unusual bruising, 11:01 All other systems are negative, Exam: 11:01 Constitutional: This is a well developed, well nourished patient who is awake, alert, sp3 and in no acute distress. Head/Face: Normocephalic, atraumatic. Eyes: Pupils equal round and reactive to light, extra-ocular motions intact. Lids and lashes normal. Conjunctiva and sclera are non-icteric and not injected. Cornea within normal limits. Periorbital areas with no swelling, redness, or edema. ENT: Nares patent. No nasal discharge, no septal abnormalities noted. External auditory canals are clear. Oropharynx with no redness, swelling, or masses, exudates, or evidence of obstruction, uvula midline. Mucous membranes moist. Neck: Trachea midline, no thyromegaly or masses palpated, and no cervical lymphadenopathy. Supple, full range of motion without nuchal rigidity, or vertebral point tenderness. No Meningismus. Chest/axilla: Normal chest wall appearance and motion. Nontender with no deformity. No lesions are appreciated. Cardiovascular: Regular rate and rhythm with a normal S1 and S2. No gallops, murmurs, or rubs. Normal PMI, no JVD. No pulse deficits. Respiratory: Lungs have equal breath sounds bilaterally, clear to auscultation and percussion. No rales, rhonchi or wheezes noted. No increased work of breathing, no retractions or nasal flaring. Back: No spinal tenderness. No costovertebral tenderness. Full range of motion. Skin: Warm, dry with normal turgor. Normal color with no rashes, no lesions, and no evidence of cellulitis. MS/ Extremity: Pulses equal, no cyanosis. Neurovascular intact. Full, normal range of motion. Neuro: Awake and alert, GCS 15, oriented to person, place, time, and situation. Cranial nerves II-XII grossly intact. Motor strength 5/5 in all extremities. Sensory grossly intact. Cerebellar exam normal. Normal gait. Psych: Awake, alert, with orientation to person, place and time. Behavior, mood, and affect are within normal limits. 11:01 ECG was reviewed by the Attending Physician. EKG demonstrates sinus bradycardia at 50 bpm with normal intervals, normal QRS, normal axis, normal axis ST segments without evidence of acute ischemia. 11:01 Abdomen/GI: Diffuse pain to palpation without peritoneal signs, rebound or guarding. Chest exam is normal., Vital Signs: 10:45 BP 179 / 89; Pulse 49; Resp 24; Temp 98.6(O); Pulse Ox 97% on R/A; Weight 90.72 kg; db Height 5 ft. 5 in. ; Pain 8/10; 11:30 BP 138 / 86; Pulse 65; Resp 14; Pulse Ox 95% on R/A; db 12:45 BP 136 / 75; Pulse 95; Resp 16; Pulse Ox 100% on R/A; db 10:45 Body Mass Index 33.28 (90.72 kg, 165.1 cm) db 10:45 Pain Scale: Adult db MDM: 10:41 Medical Screening Exam initiated sp3 11:02 Data reviewed: vital signs, nurses notes, EMS record, old medical records, lab test sp3 result(s), EKG. ED course: 44-year-old female with PMH above now with recurrent visit for abdominal pain and rigors/chills. Full workup at [facility] negative yesterday, including CT aortic dissection protocol. We will not need repeat imaging here. Differential diagnosis includes viral illness versus bacterial illness versus other abdominal process. Will obtain routine labs and this time we will discharge her on antibiotics pain and nausea control. Prophylactic coverage will be chosen. Vital signs are normal except for mild bradycardia. Patient is clinically not septic, in shock, or having any cardiopulmonary compromise.. 12:05 ED course: Full workup negative. Patient is back to normal baseline with no further sp3 sweating/diaphoresis, pain, or any other symptoms. I asked patient about her narcotic use and whether this was potentially withdrawal. Patient has also been taking mushroom Gummies which could be contributory. Currently vital signs are normal. We will safer discharge home at this time.. 01/18 10:42 Order name: BNP; Complete Time: 11:55 sp3 01/18 10:42 Order name: Blood Culture Adult (2) sp3 01/18 10:42 Order name: CBC with Diff; Complete Time: 11:55 sp3 01/18 10:42 Order name: CMP; Complete Time: 11:55 sp3 01/18 10:42 Order name: Lactate w/ 2H reflex if indic.; Complete Time: 11:55 sp3 01/18 10:42 Order name: Troponin HS; Complete Time: 11:55 sp3 01/18 10:58 Order name: Test, Serum; Complete Time: 11:55 db 01/18 11:51 Order name: Ghost Lactate-NO COLLECT Timer EDMS 01/18 10:42 Order name: EKG; Complete Time: 10:43 sp3 01/18 10:42 Order name: Cardiac monitoring; Complete Time: 10:59 sp3 01/18 10:42 Order name: EKG - Nurse/Tech; Complete Time: 10:59 sp3 01/18 10:42 Order name: IV Saline Lock - Large Bore; Complete Time: 11:22 sp3 01/18 10:42 Order name: Labs collected and sent; Complete Time: 11:22 sp3 01/18 10:42 Order name: O2 Per Protocol; Complete Time: 10:59 sp3 01/18 10:42 Order name: O2 Sat Monitoring; Complete Time: 10:59 sp3 01/18 10:42 Order name: Vital Signs; Complete Time: 10:59 sp3 Administered Medications: 11:10 Drug: Ondansetron IVP 4 mg IVP once; over 2 minutes Route: IVP; Site: right antecubital;db 12:07 Follow up: Response: No adverse reaction db 11:21 Drug: NS 0.9% IV 1000 ml IV at 1 bolus Per protocol; to be given as a bolus over 60 db minutes Route: IV; Rate: 1 bolus; Site: right antecubital; 12:07 Follow up: Response: No adverse reaction; IV Status: Completed infusion; IV Intake: db 1000ml 11:21 Drug: HYDROmorphone IVP 1 mg IVP once Route: IVP; Site: right antecubital; db 12:06 Follow up: Response: No adverse reaction; Pain is decreased db 12:00 Drug: Ativan IVP 1 mg IVP once Route: IVP; Site: right antecubital; db 12:50 Follow up: Response: No adverse reaction db Disposition Summary: 01/18/25 12:06 Discharge Ordered Notes: Location: Home sp3 Condition: Stable sp3 Diagnosis - Abdominal pain, Generalized sp3 Followup: sp3 - With: Private Physician - When: Upon discharge from the Emergency Department - Reason: Recheck today's complaints Discharge Instructions: - Discharge Summary Sheet sp3 - Abdominal Pain, Adult sp3 Forms: - Medication Reconciliation Form sp3 - Antibiotic Education sp3 - Prescription Opioid Use sp3 - Patient Portal Instructions sp3 - Leadership Thank You Letter sp3 Signatures: 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 EDMS EDMS 10:43 10:43 BLOOD CULTURE*+BA.LAB.BRZ ordered. EDMS EDMS 10:43 10:43 CBC+H.LAB.BRZ ordered. EDMS EDMS 10:43 10:43 COMPREHENSIVE METABOLIC PANEL+C.LAB.BRZ ordered. EDMS EDMS 10:43 10:43 LACTATE+C.LAB.BRZ ordered. EDMS EDMS 10:43 10:43 Troponin High Sensitivity+C.LAB.BRZ ordered. EDMS EDMS 10:59 10:59 TEST, SERUM+SC.LAB.BRZ ordered. EDMS EDMS
[2025-01-18 13:24] VITALS: BP 136/75; TEMP 98.6; O2SAT 100
== END 2025-01-18 12:50 | disposition home or self-care (01) ==
LOC: ER 10:38
DX: R10.84 Generalized abdominal pain (principal); R07.9 Chest pain, unspecified; Z87.442 Personal history of urinary calculi
CPT/HCPCS: 96361; 93005; 87040 ×2; 85025; 36415; 84703; 83605; 84484; 80053; 83880; 96375; 96374; 99284; J1171; J2405; J7030